=== PATIENT | male | born 1945 | race Caucasian/White ===

== ENCOUNTER 2024-06-03 15:15 | Inpatient (IN) | payer MEDICARE, MEDICAID, SELFPAY ==
[2024-06-03] VITALS (13 sets, daily range): BP systolic 119–165; BP diastolic 58–77; PULSE 77–96; RESP 17–27; TEMP 36.6–37.1; O2SAT 92–97; BMI 32.8; BMI 31.8
--- NOTE | 2024-06-03 15:30 | EKG12_ITS ---
Test Reason : CHEST PAIN Blood Pressure : */* mmHG Vent. Rate : 82 BPM Atrial Rate : 82 BPM P-R Int : 208 ms QRS Dur : 90 ms QT Int : 360 ms P-R-T Axes : 71 78 40 degrees QTcB Int : 420 ms Normal sinus rhythm with sinus arrhythmia Nonspecific T wave abnormality Abnormal ECG Confirmed by KATHERINE WEEKS, DAVI ([id number]), web content editor NEGRITO CONNER ([id number]) on 06/04/2024 8:26:00 AM Referred By: Confirmed By: DAVI MURPHY MD
[2024-06-03] MEDS: Aspirin 81 MG TAB.CHEW 324 MG PO (15:54)
[2024-06-03 16:02] LABS: Absolute Lymphocyte Count 0.81 X10^3/uL (0.83-4.51); Absolute Neutrophil Count 4.8 X10^3/uL (2.0-7.7); Basophil# 0.06 X10^3/uL; Basophil% 0.9 % (0-1); Eosinophil# 0.35 X10^3/uL; Eosinophils% 5.2 % (0-5); Hematocrit 42.1 % (40-54); Lymphocyte # 0.81 X10^3/ul (0.83-4.51); Lymphocyte % 12.1 % (19-41); Mean Corp Hgb Conc 30.9 g/dL (32-36); Mean Corpuscular Hgb 29.4 pg (27.0-32.0); Mean Corpuscular Volume 95.2 fL (80-94); Mean Platelet Vol. 10.2 fl (6.2-12.0); Monocyte# 0.61 X10^3/uL; Monocyte% 9.1 % (0-10); NRBC Flagged by Analyzer 0 % (0-5); Neutrophil # 4.81 X10^3/uL (2.7-7.7); Neutrophil % 72.3 % (47-70); Platelet Count 153 K/mm3 (150-450); RBC Distribution Width CV 15.6 % (11.6-14.6); RBC Distribution Width SD 53.9 fl (35.1-43.9); Red Blood Count 4.42 M/mm3 (4.6-6.2); White Blood Count 6.7 K/mm3 (4.4-11.0)
--- NOTE | 2024-06-03 16:10 | RAD_ITS ---
STUDY: X-RAY CHEST REASON FOR EXAM: Male, 79 years old. chest pain TECHNIQUE: PA and lateral COMPARISON: None. FINDINGS: There is right perihilar soft tissue prominence and probable right infrahilar consolidation . Heart appears enlarged. There is right hilar asymmetry with infrahilar density possibly representing adenopathy or mass.. The left lung base is silhouetted and there is right to left mediastinal shift suggesting consolidation or possible effusion. Normal visualized pulmonary arteries. Normal visualized aortic arch and descending thoracic aorta. Trachea is displaced towards the towards the left possibly due to prominent vessel or adenopathy. Normal visualized thoracic spine. Normal visualized ribs, clavicles, and shoulders. There is no demonstrated abnormality of the visualized soft tissue structures of the upper abdomen. RAD/Chest PA and Lateral IMPRESSION: Right hilar asymmetry and possible right infrahilar mass or masslike consolidation.. Left hemidiaphragm is silhouetted suggesting consolidation of left lower lobe. CT recommended for further evaluation Electronically Signed: Tommy Skinner MD at 16:41 EST ,
[2024-06-03 16:19] LABS: Anion Gap 5 (5-15); BUN 21 mg/dL (7-18); BUN/Creat Ratio 7.5 RATIO (10-20); Calcium,Total 9.7 mg/dL (8.5-10.1); Chloride 100 mmol/L (98-107); Creatinine, Serum 2.81 mg/dL (0.70-1.30); EST Glomerular Filtration Rate 23 mL/min (>60); Est Glom Filt Rate - Afr Amer 28 mL/min (>60); Estimated Creatinine Clearance 26.91 ml/min; Glucose 85 mg/dL (74-106); Potassium 4.6 mmol/L (3.5-5.1); Sodium Level 137 mmol/L (136-145); Troponin-I HS (w/2H Reflex) 10 pg/mL (3.0-78.0)
--- NOTE | 2024-06-03 16:43 | CT_ITS ---
INDICATION: cough, abnormal cxr EXAMINATION: CT CHEST WITHOUT CONTRAST - CT Chest W/O Contrast Injection TECHNIQUE: Helically acquired images were obtained of the chest. A radiation dose optimization technique was used for this scan. IV Contrast dosage and agent: None. COMPARISON: None. FINDINGS: LUNGS, PLEURA AND LARGE AIRWAYS: There is loss of volume in the left hemithorax with right to left mediastinal shift and elevation left hemidiaphragm Minor subsegmental atelectasis in both left upper and lower lobes No masses, consolidation, or edema. No pleural effusion or thickening. No pneumothorax. THYROID: No thyroid lesions. HEART AND PERICARDIUM: Heart size is normal. However there is prominent pericardial fat as well as extensive epicardial fat. CORONARY ARTERIES: Minor coronary artery calcification VESSELS: Atherosclerotic changes of the aorta without evidence for aneurysm MEDIASTINUM AND JUNO: No mediastinal or hilar adenopathy. However there is extensive mediastinal fat accounting for abnormalities on chest radiograph Esophagus is unremarkable. No hiatal hernia. UPPER ABDOMEN: Left renal cyst noted which will not require additional imaging BONES: Dorsal spine demonstrates degenerative change No suspicious lytic or blastic abnormality. CT/Chest without Contrast IMPRESSION: Minor atelectasis of the left upper and lower lobes in association with loss of volume of the left hemithorax Other findings as above Electronically Signed: Tommy Skinner MD at 18:45 EST Reading Location ID and State: [facility] / [place] Tel , Service support ,
[2024-06-03] MEDS: Ipratropium/Albuterol Sulfate 3 ML AMPUL.NEB INHALATION ×2 (17:38→23:14)
--- NOTE | 2024-06-03 17:53 | ED.VIS.CHEST ---
HPI History of Present Illness Chief Complaint: Chest Pain Informant: patient Narrative Narrative: Patient is 79-year-old male with history of end-stage renal disease on hemodialysis presenting with worsening cough and chest congestion. He states he had a slight fever 5 days ago and a 9.5 while at dialysis. He normally has dialysis Friday and Friday although because of the holidays had dialysis today (). His last dialysis was on Friday before that. He notes that last night he was up all night coughing and has had a lot of clear mucus production. He is been feeling more short of breath. He feels generally weak. He denies any nasal congestion or URI symptoms. He states he does fact there is chest congestion. He continued to have a harsh cough and chest discomfort at dialysis and they recommend he come to the ER for further evaluation. Patient denies any history of COPD or asthma. Since he has had pneumonia in the past. [facility] Medical History (Updated 06/04/24 @ 00:[address] Jyoti Hernandez, DO) Chronic renal failure, stage 5 Home Medications ?Medication ?Instructions ?Recorded ?Last Taken ?Type allopurinol 100 mg tablet 100 mg PO DAILY 06/03/24 Unknown History allopurinol 100 mg tablet 100 mg PO DAILY 06/03/24 Unknown History levothyroxine 88 mcg tablet 88 mcg PO DAILY 06/03/24 Unknown History levothyroxine 88 mcg tablet 88 mcg PO DAILY 06/03/24 Unknown History midodrine 5 mg tablet 5 mg PO BID 06/03/24 Unknown History midodrine 5 mg tablet 5 mg PO BID 06/03/24 Unknown History nystatin 100,000 unit/gram topical 1 applic topical BID 06/03/24 Unknown History cream oxybutynin chloride 5 mg tablet 5 mg BID 06/03/24 Unknown History sertraline 50 mg tablet 50 mg PO DAILY 06/03/24 Unknown History sertraline 50 mg tablet 50 mg PO DAILY 06/03/24 Unknown History sevelamer carbonate 800 mg tablet 800 mg TID 06/03/24 Unknown History simvastatin 20 mg tablet 20 mg PO QPM 06/03/24 Unknown History simvastatin 20 mg tablet 20 mg PO QPM 06/03/24 Unknown History Allergy/AdvReac Type Severity Reaction Status Date / Time iodine Allergy Intermediate Hives Verified 06/03/24 15:16 Social History Smoking Status: Former smoker ROS ROS ED Constitutional Constitutional ED: Reports chills, fever(s) and other Details: Low-grade fever reported ENT ENT ED: Denies ear pain, rhinorrhea or sore throat Cardiovascular Cardiovascular: Reports chest pain Respiratory/Chest Respiratory/Chest: Reports cough, dyspnea and sputum Gastrointestinal Gastrointestinal: Denies abdominal pain, diarrhea, nausea or vomiting Musculoskeletal Musculoskeletal: Denies arthralgias or myalgias Integumentary Denies rash Neurologic Neurologic: Reports weakness; Denies headache(s) EXAM Physical Exam Const Vital Signs: 06/03/24 15:17 06/03/24 15:20 06/03/24 15:40 Temperature 98.4 F 98.4 F Temperature Source Oral Oral Pulse Rate 90 92 Respiratory Rate 27 H 21 H Respiratory Pattern Blood Pressure 159/77 H 159/77 H Blood Pressure Mean 104 104 Pulse Ox 92 93 Oxygen Delivery Method Room Air Room Air Room Air 06/03/24 16:20 06/03/24 17:39 06/03/24 18:00 Temperature 98.1 F 97.9 F Temperature Source Oral Temporal Pulse Rate 84 83 94 Respiratory Rate 18 17 18 Respiratory Pattern Normal Blood Pressure 165/75 H 131/70 H Blood Pressure Mean 105 90 Pulse Ox 94 94 Oxygen Delivery Method Room Air 06/03/24 18:30 06/03/24 19:00 06/03/24 20:00 Temperature 98.0 F 98.8 F Temperature Source Oral Oral Pulse Rate 96 88 89 Respiratory Rate 18 18 18 Respiratory Pattern Blood Pressure 127/70 H 119/58 L 127/58 H Blood Pressure Mean 89 78 81 Pulse Ox 93 92 94 Oxygen Delivery Method Room Air Room Air Room Air 06/03/24 20:04 Temperature 98.8 F Temperature Source Pulse Rate 89 Respiratory Rate 18 Respiratory Pattern Blood Pressure 127/58 H Blood Pressure Mean 81 Pulse Ox 94 Oxygen Delivery Method Positive well nourished and well developed General Appearance ED: well developed and NAD HEENT Reports moist mucous membranes Eyes PERRL Neck supple and no JVD Chest Wall inspection of chest normal Resp Resp Narrative: Tachypneic, harsh deep cough throughout exam. Coarse breath sounds more diminished on the right with expiratory wheezing diffusely present. Cardio regular rate and regular rhythm Cardio Narrative: AV fistula in the right upper extremity with palpable thrill GI normal to inspection, nondistended, normoactive bowel sounds and soft to palpation Extremity normal to inspection General Extremety ED: Negative for edema General Extremity: Negative for edema Neuro oriented x3 Sensorium / Orientation: awake and alert Motor Exam: general weakness Psych mental status grossly normal Skin no rashes or lesions noted and no wounds Heart Score History: Slightly/Non-Suspicious ECG: Nonspecific Repolarization Age: >/= 65 years Risk Factors: >/= 3 Risk Factors or History of CAD Troponin: </= Normal Limit Score: 5 MDM MDM MDM Narrative Medical decision making narrative: Patient valuated for worsening shortness of breath and cough. Patient is on multiple comorbidities. Knows when generalized weakness. Differential includes pneumonia versus viral syndrome versus reactive airway/COPD exacerbation. Patient denies history of COPD. Clinically does not appear fluid overloaded has been compliant with his dialysis. Patient given a DuoNeb with improvement of his work of breathing and wheezing. CBC, BMP and delta licensing troponin are normal. Chest x-ray viewed by myself as well as radiology shows asymmetry of the right hilum and a left hemidiaphragm. Radiology recommended CT for further evaluation. CT does not show any acute infiltrate. Patient reevaluated. He is ambulated the emergency room because of 93 to 92%. Discussed observation in the hospital versus discharge home. Patient states he lives home alone and given all of his comorbidities be more comfortable staying in the hospital for observation. Case with Dr. Degroot. Patient started on Solu-Medrol. Given that he is RSV positive I do not think requires antibiotics at this time. Lab Data Labs: Laboratory Results - last 24 hr 06/03/24 06/03/24 15:53 18:28 WBC 6.7 RBC 4.42 L Hgb 13.0 Hct 42.1 MCV 95.2 H MCH 29.4 MCHC 30.9 L RDW Std Deviation 53.9 H RDW Coeff of Filomena 15.6 H Plt Count 153 MPV 10.2 Immature Gran % (Auto) 0.400 Neut % (Auto) 72.3 H Lymph % (Auto) 12.1 L [place] % (Auto) 9.1 Eos % (Auto) 5.2 H Baso % (Auto) 0.9 Absolute Neuts (auto) 4.8 Absolute Lymphs (auto) 0.81 L Nucleated RBC % 0 Sodium 137 Potassium 4.6 Chloride 100 Carbon Dioxide 32.0 Anion Gap 5 BUN 21 H Creatinine 2.81 H Estim Creat Clear Calc 26.91 Est GFR (MDRD) Af Amer 28 L Est GFR (MDRD) Non-Af 23 L BUN/Creatinine Ratio 7.5 L Glucose 85 Calcium 9.7 Troponin I High Sens 10 10 Radiography Diagnostic Testing: Clinical Impression(s) from Imaging Studies Chest X-Ray 06/03/24 16:10 IMPRESSION: Right hilar asymmetry and possible right infrahilar mass or masslike consolidation.. Left hemidiaphragm is silhouetted suggesting consolidation of left lower lobe. CT recommended for further evaluation Electronically Signed: Tommy Skinner MD at 16:41 EST , Chest CT 06/03/24 16:43 IMPRESSION: Minor atelectasis of the left upper and lower lobes in association with loss of volume of the left hemithorax Other findings as above Electronically Signed: Tommy Skinner MD at 18:45 EST , Rhythm Strip Rhythm Strip: Sinus Rhythm Rate: 82 Ectopy: None EKG Initial EKG: Attestation: I personally reviewed and interpreted this EKG as follows: Interpretation: Sinus Rhythm Comments: Normal sinus rhythm rate of 82 bpm with sinus arrhythmia Borderline rightward axis Normal intervals Nonspecific T wave changes with inversions in 2, aVF and V1 through V2 Prior EKG tracings: not available for review Prior: No Prior Discharge Plan Dx/Rx/DC Orders Clinical Impression: RSV (acute bronchiolitis due to respiratory syncytial virus), Cough, Shortness of breath, Generalized weakness Disposition Disposition: Acute Care [facility] Discharge Date/Time: 06/03/24 21:59
[2024-06-03 17:55] LABS: Reflex Troponin-HS? (from REC) Y
[2024-06-03 19:03] LABS: Troponin-I HS 10 pg/mL (3.0-78.0)
--- NOTE | 2024-06-03 19:14 | CM.ED ---
Social Work Reason for visit: Verification of Advanced Directives Patient verified that he does have a HPOA and Living Will completed. Patient to bring in copy when able. No further needs identified. Cherie Hagen, SEATING CAPTAIN, SPECIMEN ACCESSIONER
--- NOTE | 2024-06-03 20:35 | HP.PCM.HOS_ITS ---
HPI - General General Date of Admission: 06/03/24 Date of Service: 06/03/24 Chief Complaint: Chest discomfort/shortness of breath HPI Narrative GENET [place]HAM, is a 79 M who presented to the emergency department at [facility] on 06/03/2024 with a chief complaint of chest discomfort, cough, congestion that has been ongoing for about 5 days now. He indicated he has a slight fever initially and developed myalgias and joint aches as well as congestion, pharyngitis that and chills which since has resolved. He states at this time he is left with a fairly significant cough that is harsh and sputum production. He states the sputum is relatively clear to pasty in appearance. He is dialysis dependent at baseline and was at dialysis on the day of presentation and they advised him to be evaluated in the emergency department due to his cough severity. The patient indicated he is also having difficulty taking care of himself at home. He does live independently but has previously been in a [facility] facility. He currently ambulates with a walker. He currently gets home health and passport. He does not have a history of tobacco abuse or asthma. Vital signs on presentation showed temperature 98.4, heart rate 90, respiratory rate was 27 initially but improved to 21, blood pressure was 159/77 and pulse ox was 92 to 93% on room air at rest. CBC was overtly unremarkable. He does have a mild lymphopenia and an eosinophilia. Chemistry panel shows normal electrolytes with a BUN of 21 and a serum creatinine of 2.81 (patient on dialysis at baseline) troponin was normal x 2. Chest x-ray showed right hilar asymmetry and possible right infrahilar mass or masslike consolidation as well as possible consolidation of left lower lobe therefore a CT of the chest was obtained and demonstrated minor atelectatic changes in the left upper and lower lobes associated with volume [place] of the left hemithorax but no other acute pulmonary findings or mediastinal lymphadenopathy. COVID/flu/RSV PCR was obtained and positive for RSV. He was treated with steroids and supportive care in the emergency department and given the fact he was having difficulty caring for himself at home and winded with significant cough request for admission under observation was requested. [facility] Medical History (Updated 06/04/24 @ 01:[address] Elana Degroot DO) AV fistula End-stage renal disease Hyperlipidemia History of recurrent UTIs Chronic indwelling Torres catheter Urinary retention Prostate cancer Candidiasis, intertrigo Orthostatic hypotension Hypothyroidism Gout Obesity (BMI 30.0-34.9) Home Medications ?Medication ?Instructions ?Recorded ?Last Taken ?Type allopurinol 100 mg tablet 100 mg PO DAILY 06/03/24 Unknown History allopurinol 100 mg tablet 100 mg PO DAILY 06/03/24 Unknown History levothyroxine 88 mcg tablet 88 mcg PO DAILY 06/03/24 Unknown History levothyroxine 88 mcg tablet 88 mcg PO DAILY 06/03/24 Unknown History midodrine 5 mg tablet 5 mg PO BID 06/03/24 Unknown History midodrine 5 mg tablet 5 mg PO BID 06/03/24 Unknown History nystatin 100,000 unit/gram topical 1 applic topical BID 06/03/24 Unknown History cream oxybutynin chloride 5 mg tablet 5 mg PO BID 06/03/24 Unknown History sertraline 50 mg tablet 50 mg PO DAILY 06/03/24 Unknown History sertraline 50 mg tablet 50 mg PO DAILY 06/03/24 Unknown History sevelamer carbonate 800 mg tablet 800 mg PO TID 06/03/24 Unknown History simvastatin 20 mg tablet 20 mg PO QPM 06/03/24 Unknown History simvastatin 20 mg tablet 20 mg PO QPM 06/03/24 Unknown History Allergy/AdvReac Type Severity Reaction Status Date / Time iodine Allergy Intermediate Hives Verified 06/03/24 15:16 Family History (Updated 06/04/24 @ 01:[address] Elana Degroot DO) Other Heart disease Hypertension Surgical History (Updated 06/04/24 @ 01:[address] Elana Degroot DO) History of left hip hemiarthroplasty History of prostate surgery Social History (Updated 06/04/24 @ 01:[address] Elana Degroot DO) household members: none Smoking Status: Former smoker alcohol intake: never substance use type: does not use additional social history: Ambulates with a wheeled walker at baseline ROS Constitutional Constitutional: Reports chills, fatigue, fever(s), malaise and weakness; Denies anorexia, change in weight, night sweats or other Eyes Eyes: Denies blurry vision, change in eye color, change in vision, discharge from eye(s), double vision, erythema, eye pain, loss of vision or other ENT HEENT: Reports nasal congestion and post nasal drip; Denies abnormal hearing, dysphagia, ear pain, epistaxis, headache(s), hearing loss, nasal discharge, sinus pressure, sore throat or other Cardiovascular Cardiovascular: Reports chest pain and dyspnea on exertion; Denies claudication, edema, lightheadedness, orthopnea, palpitations, paroxysmal nocturnal dyspnea, rapid heart rate, syncope or other Respiratory/Chest Respiratory/Chest: Reports cough, dyspnea, productive cough, shortness of breath with exertion and wheezing; Denies excessive phlegm production, hemoptysis, shortness of breath at rest or other Gastrointestinal Gastrointestinal: Denies abdominal pain, coffee ground emesis, constipation, diarrhea, dyspepsia, hematemesis, hematochezia, loose stools, melena, nausea, vomiting or other Genitourinary Genitourinary: Denies burning urination, difficulty urinating, dysuria, hematuria, nocturia, urinary frequency, urinary hesitancy, urinary incontinence, urinary urgency or other Musculoskeletal Musculoskeletal: Reports joint pain and joint stiffness; Denies arthralgias, back pain, joint swelling, myalgias, neck pain or other Neurologic Neurologic: Reports abnormal gait; Denies abnormal speech, confusion, disequilibrium, dizziness, focal weakness, headache(s), numbness, paresthesias, seizure-like activity, seizures, syncope, tingling, tremor(s) or other Psychiatric Psychiatric: Denies anxiety, depression, homicidal ideation, suicidal ideation or other Endocrine Endocrinology: Denies change in body appearance, cold intolerance, excessive sweating, heat intolerance, polydipsia, polyuria or other Hematologic/Lymphatic Hematologic/Lymphatic: Denies anemia, easy bleeding, easy bruising, lymphadenopathy or other Allergic/Immunologic Allergic/Immunologic: Denies rhinitis, hives, eczemia, asthma or other Vital Signs Vital Signs Vital Signs: 06/03/24 15:17 06/03/24 15:20 06/03/24 15:40 Temperature 98.4 F 98.4 F Temperature Source Oral Oral Pulse Rate 90 92 Respiratory Rate 27 H 21 H Respiratory Pattern Blood Pressure 159/77 H 159/77 H Blood Pressure Mean 104 104 Pulse Ox 92 93 Oxygen Delivery Method Room Air Room Air Room Air 06/03/24 16:20 06/03/24 17:39 06/03/24 18:00 Temperature 98.1 F 97.9 F Temperature Source Oral Temporal Pulse Rate 84 83 94 Respiratory Rate 18 17 18 Respiratory Pattern Normal Blood Pressure 165/75 H 131/70 H Blood Pressure Mean 105 90 Pulse Ox 94 94 Oxygen Delivery Method Room Air 06/03/24 18:30 06/03/24 19:00 06/03/24 20:00 Temperature 98.0 F 98.8 F Temperature Source Oral Oral Pulse Rate 96 88 89 Respiratory Rate 18 18 18 Respiratory Pattern Blood Pressure 127/70 H 119/58 L 127/58 H Blood Pressure Mean 89 78 81 Pulse Ox 93 92 94 Oxygen Delivery Method Room Air Room Air Room Air 06/03/24 20:04 Temperature 98.8 F Temperature Source Pulse Rate 89 Respiratory Rate 18 Respiratory Pattern Blood Pressure 127/58 H Blood Pressure Mean 81 Pulse Ox 94 Oxygen Delivery Method Weight Weight: 106.6 kg Body Mass Index (BMI) 32.8 Physical Exam Const alert, oriented x3, no apparent distress and well nourished; Negative for average body habitus or healthy appearing Constitutional Narrative: Obese, older, white male, lying in bed, appears fairly debilitated at baseline, does not appear toxic, very pleasant General Appearance: cooperative HEENT normocephalic, head/scalp atraumatic and moist oral mucous membranes HEENT Narrative: Mild hearing loss, Mallampati 2-3, no thrush Eyes conjunctivae normal Eyes Narrative: No scleral icterus Neck no lymphadenopathy and supple Neck Narrative: Neck is short and thick, trachea midline Resp normal respiratory effort, no retractions, no use of accessory muscles and No clear to auscultation bilaterally Resp Narrative: Scattered end expiratory wheeze with coarse breath sounds throughout, bronchospasm with deep breathing Auscultation: wheezes; Negative for rales or rhonchi Cardio regular rate, regular rhythm, S1 normal heart sound, S2 normal heart sound, no murmurs, no rub, no gallops and no clicks GI normal to inspection, nondistended, normoactive bowel sounds, soft to palpation and non-tender Extremity no clubbing, cyanosis or edema Extremity Narrative: Pedal pulses are 2+ Neuro oriented x3, moves all extremities and no focal motor deficits Neuro Narrative: Generalized weakness noted Speech: speech normal Psych affect normal Psych Narrative: Extremely pleasant, eye contact is good, patient interacts appropriately Results Lab / Micro Data 06/03/24 15:53 06/03/24 15:53 Labs: Laboratory Results - last 24 hr 06/03/24 15:53: WBC 6.7, RBC 4.42 L, Hgb 13.0, Hct 42.1, MCV 95.2 H, MCH 29.4, M CHC 30.9 L, RDW Std Deviation 53.9 H, RDW Coeff of Filomena 15.6 H, Plt Count 153, MPV 10.2, Immature Gran % (Auto) 0.400, Neut % (Auto) 72.3 H, Lymph % (Auto) 12.1 L, [place] % (Auto) 9.1, Eos % (Auto) 5.2 H, Baso % (Auto) 0.9, Absolute Neuts (auto) 4.8, Absolute Lymphs (auto) 0.81 L, Nucleated RBC % 0, Sodium 137, Potassium 4.6, Chloride 100, Carbon Dioxide 32.0, Anion Gap 5, BUN 21 H, C reatinine 2.81 H, Estim Creat Clear Calc 26.91, Est GFR (MDRD) Af Amer 28 L, Est GFR (MDRD) Non-Af 23 L, BUN/Creatinine Ratio 7.5 L, Glucose 85, Calcium 9.7, Troponin I High Sens 10 06/03/24 18:28: Troponin I High Sens 10 Micro: Microbiology 06/03/24 15:38 Mucosa - Nose SARS-CoV-2, Influenza & RSV (PCR) - Final RSV Rhythm Strip Rhythm Strip: Sinus Rhythm Rate: 82 Ectopy: None Imaging Radiology Impression Chest X-Ray 06/03/24 16:10 IMPRESSION: Right hilar asymmetry and possible right infrahilar mass or masslike consolidation.. Left hemidiaphragm is silhouetted suggesting consolidation of left lower lobe. CT recommended for further evaluation Electronically Signed: Tommy Skinner MD at 16:41 EST , Chest CT 06/03/24 16:43 IMPRESSION: Minor atelectasis of the left upper and lower lobes in association with loss of volume of the left hemithorax Other findings as above Electronically Signed: Tommy Skinner MD at 18:45 EST , Assessment & Plan Assessment/Plan (1) Cough: (2) RSV (acute bronchiolitis due to respiratory syncytial virus): (3) Shortness of breath: (4) Generalized weakness: PLAN: Plan Cough/shortness of breath secondary to viral pneumonia with RSV -Supportive care -Will check sputum culture to rule out underlying superimposed bacterial pneumonia with productive cough -As needed and scheduled nebulizers -Solu-Medrol 40 every 8 -As needed antitussives -I-S -Acapella -Mucinex 1200 p.o. twice daily -Patient is currently on room air at rest will need ambulatory pulse ox prior to discharge Generalized weakness acute on chronic -Acuity is secondary to the above -Consult PT/OT -cultural centre manager/social work consultation for assistance with discharge planning -Patient states he has had home health and is plugged in with passport End-stage renal disease on dialysis -HD typically MWF -Due for dialysis tomorrow -does not follow locally -Consult Dr. Abarca for assistance with dialysis while hospitalized -Continue home sevelamer Chronic orthostatic hypotension -Continue home midodrine Hypothyroidism -Continue home levothyroxine History of BPH/prostate cancer/recurrent UTI/urinary overflow incontinence -Patient now has chronic Torres -Currently no urinary symptoms and urine does not appear to be turbid -Continue home oxybutynin Gout -Continue home allopurinol Intertriginous candidiasis -continue home topical nystatin Hyperlipidemia -continue home statin DVT prophylaxis -Subcu heparin 3 times daily CODE STATUS -Full code as verified on presentation Charges/Coding Visit Charges Inpatient E&M: 36046 Init Hosp L2
--- NOTE | 2024-06-03 21:00 | ED.RN ---
Patient states that he does not know his medications and he does not have a list. Patient states that and the dialysis center are the only people that know the medications that the patient takes.
[2024-06-03] MEDS: MethylPREDNISolone 125 MG/2 ML Vial IV (21:03)
[2024-06-03] MEDS: guaiFENesin 1,200 MG Tablet 1200 MG PO (22:54)
[2024-06-03] MEDS: Heparin Injection (Vial) 5,000 UNIT/ML VIAL 5000 UNIT SC (22:54)
[2024-06-04] VITALS (12 sets, daily range): BP systolic 129–132; BP diastolic 60–72; PULSE 70–89; RESP 16–20; TEMP 36.5–36.9; O2SAT 93–97
[2024-06-04] MEDS: Ipratropium/Albuterol Sulfate 3 ML AMPUL.NEB INHALATION ×6 (02:53→22:52)
[2024-06-04] MEDS: Heparin Injection (Vial) 5,000 UNIT/ML VIAL 5000 UNIT SC ×3 (05:10→21:37)
[2024-06-04] MEDS: Levothyroxine 88 MCG Tablet PO (05:11)
[2024-06-04 06:24] LABS: Absolute Lymphocyte Count 0.37 X10^3/uL (0.83-4.51); Absolute Neutrophil Count 4.1 X10^3/uL (2.0-7.7); Basophil# 0.01 X10^3/uL; Basophil% 0.2 % (0-1); Hematocrit 41.5 % (40-54); Hemoglobin 12.7 g/dL (13.0-16.5); Lymphocyte # 0.37 X10^3/ul (0.83-4.51); Mean Corp Hgb Conc 30.6 g/dL (32-36); Mean Corpuscular Hgb 29.5 pg (27.0-32.0); Mean Corpuscular Volume 96.5 fL (80-94); Mean Platelet Vol. 11.2 fl (6.2-12.0); Monocyte% 2.2 % (0-10); NRBC Flagged by Analyzer 0 % (0-5); Neutrophil # 4.12 X10^3/uL (2.7-7.7); Neutrophil % 89.2 % (47-70); POSITIVE DIFFERENTIAL YES; Platelet Count 146 K/mm3 (150-450); RBC Distribution Width CV 15.8 % (11.6-14.6); RBC Distribution Width SD 56.1 fl (35.1-43.9); White Blood Count 4.6 K/mm3 (4.4-11.0)
[2024-06-04 06:52] LABS: ALB/GLOB Ratio 0.7 RATIO (0.9-2.4); AST(SGOT) 20 U/L (15-37); Alanine Aminotransfer ALT/SGPT 16 U/L (16-61); Albumin, Serum 3.3 g/dL (3.2-5.0); Alkaline Phosphatase 97 U/L (45-117); Anion Gap 7 (5-15); BUN 35 mg/dL (7-18); BUN/Creat Ratio 8.3 RATIO (10-20); Calcium,Total 9.5 mg/dL (8.5-10.1); Chloride 101 mmol/L (98-107); EST Glomerular Filtration Rate 15 mL/min (>60); Est Glom Filt Rate - Afr Amer 18 mL/min (>60); Estimated Creatinine Clearance 17.77 ml/min; Globulin 4.6 g/dL (2.2-4.2); Glucose 201 mg/dL (74-106); Magnesium 2.4 mg/dL (1.6-2.6); Potassium 4.6 mmol/L (3.5-5.1); Protein, Total 7.9 g/dL (6.4-8.2); Sodium Level 136 mmol/L (136-145)
--- NOTE | 2024-06-04 07:32 | PN.HOSP_ITS ---
Reason for Visit Reason for Visit: Diagnoses Acute bronchiolitis due to respiratory syncytial virus (06/03/24) Cough, unspecified (06/03/24) Shortness of breath (06/03/24) Weakness (06/03/24) Subjective Subjective Patient is a 79-year-old gentleman who presented with shortness of breath imaging studies demonstrated atelectasis of the left upper and lower lobes with volume loss of the left hemithorax. Patient viral respiratory panel came back positive for RSV admitted to regular nursing floor for further management Objective Data Objective Data Vital Signs: Vital Signs Temp Pulse Resp BP Pulse Ox O2 Del Method 97.7 F L 70 18 132/72 H 95 Room Air 06/04/24 05:15 06/04/24 05:15 06/04/24 05:15 06/04/24 05:15 06/04/24 05:15 06/04/24 05:15 Oxygen Delivery Method Room Air Weight: 103.782 kg Body Mass Index (BMI) 31.8 Intake & Output: Intake and Output for Last 24 Hours 06/02/24 06/03/24 06/04/24 23:59 23:59 23:59 Output Total 650 / 650 Balance -650 / -650 Lab / Micro Data 06/04/24 05:30 06/04/24 05:30 Labs: Laboratory Results - last 24 hr 06/03/24 15:53: WBC 6.7, RBC 4.42 L, Hgb 13.0, Hct 42.1, MCV 95.2 H, MCH 29.4, M CHC 30.9 L, RDW Std Deviation 53.9 H, RDW Coeff of Filomena 15.6 H, Plt Count 153, MPV 10.2, Immature Gran % (Auto) 0.400, Neut % (Auto) 72.3 H, Lymph % (Auto) 12.1 L, [place] % (Auto) 9.1, Eos % (Auto) 5.2 H, Baso % (Auto) 0.9, Absolute Neuts (auto) 4.8, Absolute Lymphs (auto) 0.81 L, Nucleated RBC % 0, Sodium 137, Potassium 4.6, Chloride 100, Carbon Dioxide 32.0, Anion Gap 5, BUN 21 H, C reatinine 2.81 H, Estim Creat Clear Calc 26.91, Est GFR (MDRD) Af Amer 28 L, Est GFR (MDRD) Non-Af 23 L, BUN/Creatinine Ratio 7.5 L, Glucose 85, Calcium 9.7, Troponin I High Sens 10 06/03/24 18:28: Troponin I High Sens 10 06/04/24 05:30: WBC 4.6, RBC 4.30 L, Hgb 12.7 L, Hct 41.5, MCV 96.5 H, MCH 29.5, MCHC 30.6 L, RDW Std Deviation 56.1 H, RDW Coeff of Filomena 15.8 H, Plt Count 146 L, MPV 11.2, Immature Gran % (Auto) 0.400, Neut % (Auto) 89.2 H, Lymph % (Auto) 8.0 L, [place] % (Auto) 2.2, Eos % (Auto) 0.0, Baso % (Auto) 0.2, Absolute Neuts (auto) 4.1, Absolute Lymphs (auto) 0.37 L, Nucleated RBC % 0, Sodium 136, Potassium 4.6, Chloride 101, Carbon Dioxide 28.0, Anion Gap 7, BUN 35 H, Creatinine 4.20 H , Estim Creat Clear Calc 17.77, Est GFR (MDRD) Af Amer 18 L, Est GFR (MDRD) Non- Af 15 L, BUN/Creatinine Ratio 8.3 L, Glucose 201 H, Calcium 9.5, Phosphorus 3.0, Magnesium 2.4, Total Bilirubin 0.40, AST 20, ALT 16, Alkaline Phosphatase 97, Total Protein 7.9, Albumin 3.3, Globulin 4.6 H, Albumin/Globulin Ratio 0.7 L Micro: Microbiology 06/03/24 15:38 Mucosa - Nose SARS-CoV-2, Influenza & RSV (PCR) - Final RSV Radiography Diagnostic Testing: Radiology Impression Chest X-Ray 06/03/24 16:10 IMPRESSION: Right hilar asymmetry and possible right infrahilar mass or masslike consolidation.. Left hemidiaphragm is silhouetted suggesting consolidation of left lower lobe. CT recommended for further evaluation Electronically Signed: Tommy Skinner MD at 16:41 EST Reading Location ID and State: [facility] / [place] Tel , Service support , Chest CT 06/03/24 16:43 IMPRESSION: Minor atelectasis of the left upper and lower lobes in association with loss of volume of the left hemithorax Other findings as above Electronically Signed: Tommy Skinner MD at 18:45 EST Reading Location ID and State: [address] [place] [address] Tel , Service support , Rhythm Strip Rhythm Strip: Sinus Rhythm Rate: 82 Ectopy: None Physical Exam Narrative GENERAL: cooperative HEENT: Atraumatic; normocephalic EYES; Anicteric, Normal Conjunctiva NECK; supple, normal thyroid, RESPIRATORY: Diminished to auscultation CARDIOVASCULAR: Regular S1 S2, GI: soft, normoactive bowel sounds, : No Renal angle tenderness; EXTREMITIES: No edema, no clubbing, MUSCULOSKELETAL: no muscle wasting NEURO: Awake; no lateralizing signs. SKIN: No Rash PSYCH; Flat affect Assessment & Plan Assessment/Plan (1) Cough: (2) RSV (acute bronchiolitis due to respiratory syncytial virus): (3) Shortness of breath: (4) Generalized weakness: PLAN: Plan Patient is a 79-year-old gentleman who presented with shortness of breath imaging studies demonstrated atelectasis of the left upper and lower lobes with volume loss of the left hemithorax. Patient viral respiratory panel came back positive for RSV admitted to regular nursing floor for further management 1. Acute viral pneumonia with RSV ? Patient has been admitted to regular nursing floor and symptom management initiated in addition to Solu-Medrol, Mucinex and supplemental oxygen 2. End-stage renal disease ? Patient is on dialysis on Wednesdays and Fridays consult placed to nephrology for dialysis orders 3. Chronic orthostatic hypotension ? Patient is on midodrine 4. Hypothyroidism ? Patient is on levothyroxine home dose continued 5. Dyslipidemia ?Patient is on statin therapy, continued at home dose 6. Bladder outlet obstruction ? Multifactorial including BPH, history of prostate cancer. Patient has a Torres catheter 7. Gout ? Patient is on allopurinol 8. DVT prophylaxis ? Subcu heparin CODE STATUS full code Time spent in the patient's overall evaluation,decision-making process, review of diagnostic data, adjustment of management, discussion with other providers, nursing nursing and ancillary staff involved in patient's care documentation, 38 Minutes Charges/Coding Visit Charges Inpatient E&M: 58210 Subs Hosp L2
[2024-06-04] MEDS: Allopurinol 100 MG Tablet PO (09:32)
[2024-06-04] MEDS: SEVELAMER CARBONATE 800 MG TABLET PO ×3 (09:32→16:45)
[2024-06-04] MEDS: Doxycycline 100 MG CAPSULE PO ×2 (09:32→21:37)
[2024-06-04] MEDS: guaiFENesin 1,200 MG Tablet 1200 MG PO ×2 (09:32→21:37)
[2024-06-04] MEDS: Oxybutynin 5 MG Tablet PO ×2 (09:32→16:45)
[2024-06-04] MEDS: Sertraline 50 MG Tablet PO (09:32)
[2024-06-04] MEDS: Midodrine HCl 5 MG Tablet PO ×2 (09:34→16:45)
[2024-06-04] MEDS: Nystatin Ointment 1 APPLIC TOPICAL ×2 (09:35→21:37)
--- NOTE | 2024-06-04 11:20 | CON.PCM.RE_ITS ---
Assessment & Plan Assessment/Plan (1) End-stage renal disease: PLAN: On hemodialysis Friday, Friday, Friday. This week due to holiday schedule he had dialysis yesterday. Today potassium looks okay, volume status looks pretty decent. Has a right arm AV fistula for access. Will arrange dialysis as per schedule. Treatment of RSV pneumonia as per primary HPI Consult Data Date of Consult: 06/04/24 HPI Narrative Reason for Consultation: ESRD HPI Narrative: GENET [place], is a 79 M who presents to the hospital with fever, chills, shortness of breath. Nephrology on consultation in view of ESRD. ESRD on hemodialysis Friday, Friday, Friday. This week he had dialysis yesterday in view of holiday schedule. Presented with above complaints. Admitted for RSV pneumonitis. Has a right arm AV fistula for access. Currently denies any complaints. REPLACED BY [facility] Medical History (Updated 06/04/24 @ 11:[address] Jan Abarca MD) AV fistula End-stage renal disease Hyperlipidemia History of recurrent UTIs Chronic indwelling Torres catheter Urinary retention Prostate cancer Candidiasis, intertrigo Orthostatic hypotension Hypothyroidism Gout Obesity (BMI 30.0-34.9) Home Medications ?Medication ?Instructions ?Recorded ?Last Taken ?Type allopurinol 100 mg tablet 100 mg PO DAILY 06/03/24 Unknown History allopurinol 100 mg tablet 100 mg PO DAILY 06/03/24 Unknown History levothyroxine 88 mcg tablet 88 mcg PO DAILY 06/03/24 Unknown History levothyroxine 88 mcg tablet 88 mcg PO DAILY 06/03/24 Unknown History midodrine 5 mg tablet 5 mg PO BID 06/03/24 Unknown History midodrine 5 mg tablet 5 mg PO BID 06/03/24 Unknown History nystatin 100,000 unit/gram topical 1 applic topical BID 06/03/24 Unknown History cream oxybutynin chloride 5 mg tablet 5 mg PO BID 06/03/24 Unknown History sertraline 50 mg tablet 50 mg PO DAILY 06/03/24 Unknown History sertraline 50 mg tablet 50 mg PO DAILY 06/03/24 Unknown History sevelamer carbonate 800 mg tablet 800 mg PO TID 06/03/24 Unknown History simvastatin 20 mg tablet 20 mg PO QPM 06/03/24 Unknown History simvastatin 20 mg tablet 20 mg PO QPM 06/03/24 Unknown History Allergy/AdvReac Type Severity Reaction Status Date / Time iodine Allergy Intermediate Hives Verified 06/03/24 15:16 Family History (Updated 06/04/24 @ 01:[address] Elana Degroot DO) Other Heart disease Hypertension Surgical History (Updated 06/04/24 @ 01:[address] Elana Degroot DO) History of left hip hemiarthroplasty History of prostate surgery Social History (Updated 06/04/24 @ 01:[address] Elana Degroot DO) household members: none Smoking Status: Former smoker alcohol intake: never substance use type: does not use additional social history: Ambulates with a wheeled walker at baseline ROS ROS Narrative Negative except above Physical Exam Narrative Alert awake oriented x 3 no obvious distress no pallor no icterus no JVD s1s2 no murmurs lungs clear abdomen soft no organomegaly no edema no cyanosis Lab / Micro Data 06/04/24 05:30 06/04/24 05:30 Labs: Laboratory Results - last 24 hr 06/03/24 15:53: WBC 6.7, RBC 4.42 L, Hgb 13.0, Hct 42.1, MCV 95.2 H, MCH 29.4, M CHC 30.9 L, RDW Std Deviation 53.9 H, RDW Coeff of Filomena 15.6 H, Plt Count 153, MPV 10.2, Immature Gran % (Auto) 0.400, Neut % (Auto) 72.3 H, Lymph % (Auto) 12.1 L, [place] % (Auto) 9.1, Eos % (Auto) 5.2 H, Baso % (Auto) 0.9, Absolute Neuts (auto) 4.8, Absolute Lymphs (auto) 0.81 L, Nucleated RBC % 0, Sodium 137, Potassium 4.6, Chloride 100, Carbon Dioxide 32.0, Anion Gap 5, BUN 21 H, C reatinine 2.81 H, Estim Creat Clear Calc 26.91, Est GFR (MDRD) Af Amer 28 L, Est GFR (MDRD) Non-Af 23 L, BUN/Creatinine Ratio 7.5 L, Glucose 85, Calcium 9.7, Troponin I High Sens 10 06/03/24 18:28: Troponin I High Sens 10 06/04/24 05:30: WBC 4.6, RBC 4.30 L, Hgb 12.7 L, Hct 41.5, MCV 96.5 H, MCH 29.5, MCHC 30.6 L, RDW Std Deviation 56.1 H, RDW Coeff of Filomena 15.8 H, Plt Count 146 L, MPV 11.2, Immature Gran % (Auto) 0.400, Neut % (Auto) 89.2 H, Lymph % (Auto) 8.0 L, [place] % (Auto) 2.2, Eos % (Auto) 0.0, Baso % (Auto) 0.2, Absolute Neuts (auto) 4.1, Absolute Lymphs (auto) 0.37 L, Nucleated RBC % 0, Sodium 136, Potassium 4.6, Chloride 101, Carbon Dioxide 28.0, Anion Gap 7, BUN 35 H, Creatinine 4.20 H , Estim Creat Clear Calc 17.77, Est GFR (MDRD) Af Amer 18 L, Est GFR (MDRD) Non- Af 15 L, BUN/Creatinine Ratio 8.3 L, Glucose 201 H, Calcium 9.5, Phosphorus 3.0, Magnesium 2.4, Total Bilirubin 0.40, AST 20, ALT 16, Alkaline Phosphatase 97, Total Protein 7.9, Albumin 3.3, Globulin 4.6 H, Albumin/Globulin Ratio 0.7 L Micro: Microbiology 06/03/24 23:35 Sputum, Expectorated/Coughed Gram Stain - Final 06/03/24 15:38 Mucosa - Nose SARS-CoV-2, Influenza & RSV (PCR) - Final RSV Rhythm Strip Rhythm Strip: Sinus Rhythm Rate: 82 Ectopy: None Imaging Radiology Impression Chest X-Ray 06/03/24 16:10 IMPRESSION: Right hilar asymmetry and possible right infrahilar mass or masslike consolidation.. Left hemidiaphragm is silhouetted suggesting consolidation of left lower lobe. CT recommended for further evaluation Electronically Signed: Tommy Skinner MD at 16:41 EST Reading Location ID and State: [facility] / [place] Tel , Service support , Chest CT 06/03/24 16:43 IMPRESSION: Minor atelectasis of the left upper and lower lobes in association with loss of volume of the left hemithorax Other findings as above Electronically Signed: Tommy Skinner MD at 18:45 EST ,
--- NOTE | 2024-06-04 11:59 | CHAPLAIN ---
Type of Pastoral Visit _x__ Initial Visit ___ Follow-up Visit ___ On-call Visit ___ General Patient Visit ___ Spiritual Assessment ___ Family Conference ___ Bereavement ___ Rapid Response ___ Code Blue ___ Other (describe below) Pastoral Care Referral From _x__ Patient ___ Family ___ Nurse ___ Physician ___ Banquet Manager ___ Medical Authorization Specialist ___ Other (describe below) Sacrament/Intervention _x__ Active listening ___ Anointing ___ Moravian ___ Bereavement ___ Communion _x__ Skyla exploration ___ _x__ Life review _x__ Prayer ___ Reconciliation ___ Sacrament of Sick _x__ Supportive presence ___ Wedding ___ Other (describe below) Pastoral Comments patient is welcoming and eager to talk about his health decline over the last year and how he is handling the changes along with financial adjustments/embarrassments; pt has had some time in SNF and was supported by the monomer purification operator there; pt states that this situation has alerted him to more skyla development and interest; pt reports of friend support and a connection with a local yazidi/naprapath that he can call upon as well; pt requests prayer
[2024-06-04] MEDS: 0.9% Saline Lock 10 ML Syringe IV ×2 (15:17→21:37)
--- NOTE | 2024-06-04 15:36 | CASEMGMT ---
Met with patient to complete PAN form. PAN form explained to patient who voiced understanding and signed form. Original form placed in pt?s chart and copy provided to patient. Tracey Bansal, Discharge Planning Asst
--- NOTE | 2024-06-04 16:16 | CASEMGMT ---
MELLY CM into pt room, pt lying in bed on RA. Pt states he has dialysis M/W/F at [facility] at 11am. Pt has taxi that takes him. Pt has an aide M-F mornings and evenings from [place]. Pt has [facility] for SN every other week for catheter. Pt states his insurance keeps cutting therapy so they cannot see him. Pt has a walker, rollator and shower bench, hospital bed at home. Pt aide does laundry and cleaning. Pt denies any further needs at home. Pt provided a verbal list of local DME companies, pt chose [employer]. Green sheet on chart.
[2024-06-04] MEDS: Atorvastatin Calcium 10 MG Tablet PO (21:37)
[2024-06-05] VITALS (16 sets, daily range): BP systolic 80–257; BP diastolic 61–89; PULSE 70–87; RESP 16–20; TEMP 36.4–36.9; O2SAT 90–99; BMI 32.3; BMI 31.8
[2024-06-05] MEDS: Ipratropium/Albuterol Sulfate 3 ML AMPUL.NEB INHALATION ×6 (03:33→23:04)
[2024-06-05 05:05] LABS: Absolute Lymphocyte Count 0.62 X10^3/uL (0.83-4.51); Absolute Neutrophil Count 10.6 X10^3/uL (2.0-7.7); Basophil# 0.01 X10^3/uL; Basophil% 0.1 % (0-1); Hematocrit 37.9 % (40-54); Hemoglobin 11.7 g/dL (13.0-16.5); Lymphocyte # 0.62 X10^3/ul (0.83-4.51); Lymphocyte % 5.4 % (19-41); Mean Corp Hgb Conc 30.9 g/dL (32-36); Mean Corpuscular Hgb 29.3 pg (27.0-32.0); Mean Corpuscular Volume 94.8 fL (80-94); Mean Platelet Vol. 10.9 fl (6.2-12.0); Monocyte# 0.24 X10^3/uL; Monocyte% 2.1 % (0-10); NRBC Flagged by Analyzer 0 % (0-5); Neutrophil % 91.7 % (47-70); Platelet Count 180 K/mm3 (150-450); RBC Distribution Width CV 15.9 % (11.6-14.6); RBC Distribution Width SD 55.4 fl (35.1-43.9); White Blood Count 11.6 K/mm3 (4.4-11.0)
[2024-06-05 05:28] LABS: Anion Gap 11 (5-15); BUN 67 mg/dL (7-18); BUN/Creat Ratio 12.6 RATIO (10-20); Calcium,Total 9.7 mg/dL (8.5-10.1); Chloride 99 mmol/L (98-107); Creatinine, Serum 5.33 mg/dL (0.70-1.30); EST Glomerular Filtration Rate 11 mL/min (>60); Est Glom Filt Rate - Afr Amer 14 mL/min (>60); Estimated Creatinine Clearance 14.01 ml/min; Glucose 177 mg/dL (74-106); Magnesium 2.4 mg/dL (1.6-2.6); Phosphorus 3.8 mg/dL (2.5-4.9); Potassium 4.5 mmol/L (3.5-5.1); Sodium Level 136 mmol/L (136-145)
[2024-06-05] MEDS: Heparin Injection (Vial) 5,000 UNIT/ML VIAL 5000 UNIT SC ×3 (05:58→23:07)
[2024-06-05] MEDS: Levothyroxine 88 MCG Tablet PO (05:58)
[2024-06-05] MEDS: 0.9% Saline Lock 10 ML Syringe IV ×5 (05:58→23:07)
--- NOTE | 2024-06-05 07:39 | PN.HOSP_ITS ---
Reason for Visit Reason for Visit: Diagnoses Acute bronchiolitis due to respiratory syncytial virus (06/03/24) End stage renal disease (06/03/24) Cough, unspecified (06/03/24) Shortness of breath (06/03/24) Weakness (06/03/24) Subjective Subjective Patient seen symptoms continue to improve. Seen currently undergoing dialysis Objective Data Objective Data Vital Signs: Vital Signs Temp Pulse Resp BP Pulse Ox O2 Del Method 97.6 F L 82 18 131/74 H 96 Room Air 06/05/24 06:03 06/05/24 07:26 06/05/24 07:26 06/05/24 06:03 06/05/24 07:26 06/05/24 07:26 Oxygen Delivery Method Room Air Weight: 104.916 kg Body Mass Index (BMI) 32.3 Intake & Output: Intake and Output for Last 24 Hours 06/03/24 06/04/24 06/05/24 23:59 23:59 23:59 Output Total 650 / 900 400 / 400 Balance -650 / -900 -400 / -400 Lab / Micro Data 06/05/24 03:51 06/05/24 03:51 Labs: Laboratory Results - last 24 hr 06/05/24 03:51: WBC 11.6 H, RBC 4.00 L, Hgb 11.7 L, Hct 37.9 L, MCV 94.8 H, MCH 29.3, MCHC 30.9 L, RDW Std Deviation 55.4 H, RDW Coeff of Filomena 15.9 H, Plt Count 180, MPV 10.9, Immature Gran % (Auto) 0.700, Neut % (Auto) 91.7 H, Lymph % (Auto) 5.4 L, [place] % (Auto) 2.1, Eos % (Auto) 0.0, Baso % (Auto) 0.1, Absolute Neuts (auto) 10.6 H, Absolute Lymphs (auto) 0.62 L, Nucleated RBC % 0, Sodium 136, Potassium 4.5, Chloride 99, Carbon Dioxide 25.0, Anion Gap 11, BUN 67 H, C reatinine 5.33 H, Estim Creat Clear Calc 14.01, Est GFR (MDRD) Af Amer 14 L, Est GFR (MDRD) Non-Af 11 L, BUN/Creatinine Ratio 12.6, Glucose 177 H, Calcium 9.7, Phosphorus 3.8, Magnesium 2.4 Micro: Microbiology 06/03/24 23:35 Sputum, Expectorated/Coughed Gram Stain - Final 06/03/24 15:38 Mucosa - Nose SARS-CoV-2, Influenza & RSV (PCR) - Final RSV Rhythm Strip Rhythm Strip: Sinus Rhythm Rate: 82 Ectopy: None Physical Exam Narrative GENERAL: cooperative HEENT: Atraumatic; normocephalic EYES; Anicteric, Normal Conjunctiva NECK; supple, normal thyroid, RESPIRATORY: Diminished to auscultation CARDIOVASCULAR: Regular S1 S2, GI: soft, normoactive bowel sounds, : No Renal angle tenderness; EXTREMITIES: No edema, no clubbing, MUSCULOSKELETAL: no muscle wasting NEURO: Awake; no lateralizing signs. SKIN: No Rash PSYCH; Flat affect Assessment & Plan Assessment/Plan (1) Cough: (2) RSV (acute bronchiolitis due to respiratory syncytial virus): (3) Shortness of breath: (4) Generalized weakness: PLAN: Plan Patient is a 79-year-old gentleman who presented with shortness of breath imaging studies demonstrated atelectasis of the left upper and lower lobes with volume loss of the left hemithorax. Patient viral respiratory panel came back positive for RSV admitted to regular nursing floor for further management 1. Acute viral pneumonia with RSV ? Patient has been admitted to regular nursing floor and symptom management initiated in addition to Solu-Medrol, Mucinex and supplemental oxygen ? 06/2024; patient has been weaned off oxygen and is currently on room air. Symptoms continue to improve. 2. End-stage renal disease ? Patient is on dialysis on Wednesdays and Fridays consult placed to nephrology for dialysis orders 3. Chronic orthostatic hypotension ? Patient is on midodrine 4. Hypothyroidism ? Patient is on levothyroxine home dose continued 5. Dyslipidemia ?Patient is on statin therapy, continued at home dose 6. Bladder outlet obstruction ? Multifactorial including BPH, history of prostate cancer. Patient has a Torres catheter 7. Gout ? Patient is on allopurinol 8. DVT prophylaxis ? Subcu heparin CODE STATUS full code Time spent in the patient's overall evaluation,decision-making process, review of diagnostic data, adjustment of management, discussion with other providers, nursing nursing and ancillary staff involved in patient's care documentation, 38 Minutes Charges/Coding Visit Charges Inpatient E&M: 99623 Subs Hosp L2
[2024-06-05] MEDS: 0.9% Normal Saline 1,000 ML IV.SOLN. 1000 ML OPERA.SITE (08:09)
[2024-06-05] MEDS: PureFlow B 2K Dialysis Soln 1 BAG 6 BAG PF (08:10)
[2024-06-05] MEDS: Midodrine HCl 5 MG Tablet PO ×2 (08:41→16:59)
[2024-06-05] MEDS: Oxybutynin 5 MG Tablet PO ×2 (11:08→16:59)
[2024-06-05] MEDS: SEVELAMER CARBONATE 800 MG TABLET PO ×2 (11:08→16:59)
[2024-06-05] MEDS: guaiFENesin 1,200 MG Tablet 1200 MG PO ×2 (11:08→23:07)
[2024-06-05] MEDS: Sertraline 50 MG Tablet PO (11:08)
[2024-06-05] MEDS: Doxycycline 100 MG CAPSULE PO ×2 (11:08→23:08)
[2024-06-05] MEDS: Allopurinol 100 MG Tablet PO (11:08)
--- NOTE | 2024-06-05 18:20 | PN.RENAL_ITS ---
Subjective Subjective Following for ESRD. The patient was dialyzed earlier today. He denies current chest pain, nausea or vomiting. Dyspnea has improved. However, he still has subjective wheezing. Objective Data Objective Data Vital Signs: Vital Signs Temp Pulse Resp BP Pulse Ox O2 Del Method 98.1 F 70 18 128/67 H 94 Room Air 06/05/24 14:36 06/05/24 15:13 06/05/24 15:13 06/05/24 14:36 06/05/24 14:36 06/05/24 14:36 Oxygen Delivery Method Room Air Weight: 103.4 kg Body Mass Index (BMI) 31.8 Intake & Output: Intake and Output for Last 24 Hours 06/03/24 06/04/24 06/05/24 23:59 23:59 23:59 Intake Total 360 / 360 Output Total 650 / 900 2174 / 2174 Balance -650 / -900 -1814 / -1814 Lab / Micro Data 06/05/24 03:51 06/05/24 03:51 Labs: Laboratory Results - last 24 hr 06/05/24 03:51: WBC 11.6 H, RBC 4.00 L, Hgb 11.7 L, Hct 37.9 L, MCV 94.8 H, MCH 29.3, MCHC 30.9 L, RDW Std Deviation 55.4 H, RDW Coeff of Filomena 15.9 H, Plt Count 180, MPV 10.9, Immature Gran % (Auto) 0.700, Neut % (Auto) 91.7 H, Lymph % (Auto) 5.4 L, [place] % (Auto) 2.1, Eos % (Auto) 0.0, Baso % (Auto) 0.1, Absolute Neuts (auto) 10.6 H, Absolute Lymphs (auto) 0.62 L, Nucleated RBC % 0, Sodium 136, Potassium 4.5, Chloride 99, Carbon Dioxide 25.0, Anion Gap 11, BUN 67 H, C reatinine 5.33 H, Estim Creat Clear Calc 14.01, Est GFR (MDRD) Af Amer 14 L, Est GFR (MDRD) Non-Af 11 L, BUN/Creatinine Ratio 12.6, Glucose 177 H, Calcium 9.7, Phosphorus 3.8, Magnesium 2.4 Micro: Microbiology 06/03/24 23:35 Sputum, Expectorated/Coughed Gram Stain - Final 06/03/24 23:35 Sputum, Expectorated/Coughed Respiratory Culture - Preliminary Appears to be normal respiratory sunyn. Further studies to follow. 06/03/24 15:38 Mucosa - Nose SARS-CoV-2, Influenza & RSV (PCR) - Final RSV Rhythm Strip Rhythm Strip: Sinus Rhythm Rate: 82 Ectopy: None Physical Exam Narrative Alert awake oriented x 3 no obvious distress no pallor no icterus no JVD s1s2 no murmurs lungs with diffuse rhonchi bilaterally abdomen soft no organomegaly no edema no cyanosis Assessment & Plan Assessment/Plan (1) End-stage renal disease: PLAN: Plan Impression/Plan: The patient is a 79-year-old male with past history of ESRD, gout, hypothyroidism, chronic hypotension on midodrine, prostate cancer, bladder dysfunction (outlet obstruction) requiring chronic Torres catheter. Patient is admitted to the hospital on 06/03/2024 for treatment of acute hypoxic respiratory failure attributed to viral pneumonia with RSV. Nephrology is following for ESRD and dialysis management. ESRD. Patient dialyzes on MWF schedule at [facility] dialysis [facility]. Patient wanted to be dialyzed today instead of yesterday. He was dialyzed earlier today without any issues. Next dialysis will be scheduled for 06/07/2024 to get him back on schedule unless he is discharged before then.
[2024-06-05] MEDS: Nystatin Ointment 1 APPLIC TOPICAL (23:08)
[2024-06-05] MEDS: Atorvastatin Calcium 10 MG Tablet PO (23:08)
[2024-06-06 02:53] VITALS: PULSE 77; RESP 20
[2024-06-06] MEDS: Ipratropium/Albuterol Sulfate 3 ML AMPUL.NEB INHALATION ×3 (02:53→10:45)
[2024-06-06 06:00] VITALS: BMI 32.6
[2024-06-06 06:10] VITALS: BP 138/62; PULSE 70; RESP 16; TEMP 36.5; O2SAT 92
[2024-06-06] MEDS: Heparin Injection (Vial) 5,000 UNIT/ML VIAL 5000 UNIT SC (06:12)
[2024-06-06] MEDS: Levothyroxine 88 MCG Tablet PO (06:12)
[2024-06-06 06:36] LABS: Absolute Lymphocyte Count 0.62 X10^3/uL (0.83-4.51); Absolute Neutrophil Count 9.4 X10^3/uL (2.0-7.7); Basophil# 0.01 X10^3/uL; Basophil% 0.1 % (0-1); Hematocrit 38.6 % (40-54); Hemoglobin 11.6 g/dL (13.0-16.5); Lymphocyte # 0.62 X10^3/ul (0.83-4.51); Mean Corp Hgb Conc 30.1 g/dL (32-36); Mean Corpuscular Volume 96.5 fL (80-94); Mean Platelet Vol. 10.7 fl (6.2-12.0); Monocyte% 1.9 % (0-10); NRBC Flagged by Analyzer 0 % (0-5); Neutrophil # 9.36 X10^3/uL (2.7-7.7); Platelet Count 185 K/mm3 (150-450); RBC Distribution Width SD 56.8 fl (35.1-43.9); White Blood Count 10.3 K/mm3 (4.4-11.0)
[2024-06-06 06:51] VITALS: PULSE 83; RESP 18; O2SAT 94
[2024-06-06 07:26] LABS: Anion Gap 10 (5-15); BUN 74 mg/dL (7-18); BUN/Creat Ratio 15.7 RATIO (10-20); Calcium,Total 9.6 mg/dL (8.5-10.1); Chloride 101 mmol/L (98-107); EST Glomerular Filtration Rate 13 mL/min (>60); Est Glom Filt Rate - Afr Amer 16 mL/min (>60); Estimated Creatinine Clearance 16.03 ml/min; Glucose 162 mg/dL (74-106); Potassium 4.5 mmol/L (3.5-5.1); Sodium Level 136 mmol/L (136-145)
--- NOTE | 2024-06-06 07:26 | DS.PCM_ITS ---
Providers Date of Admission: 06/05/24 Date of Discharge: 06/06/24 Primary Care Physician: Dr. Ata Hernandez MD Consultations 06/03/24 22:28 Consult: Nephrology Routine Consulting Provider: Jan Abarca Reason for Consult: HD pt EMERGENT Consult: No MD Notified: Yes Date Notified: 06/04/24 Time Notified: 10:51 Method of Notification: office Reason For Visit: SHORTNESS OF BREATH/SYED Diagnosis Discharge Diagnosis (1) End-stage renal disease: Status: Acute Code(s): N18.6 - End stage renal disease Plan Patient is a 79-year-old gentleman who presented with shortness of breath imaging studies demonstrated atelectasis of the left upper and lower lobes with volume loss of the left hemithorax. Patient viral respiratory panel came back positive for RSV admitted to regular nursing floor for further management 1. Acute viral pneumonia with RSV ? Patient has been admitted to regular nursing floor and symptom management initiated in addition to Solu-Medrol, Mucinex and supplemental oxygen ? 06/2024; patient has been weaned off oxygen and is currently on room air. Symptoms continue to improve. 2. End-stage renal disease ? Patient is on dialysis on Wednesdays and Fridays consult placed to nephrology for dialysis orders 3. Chronic orthostatic hypotension ? Patient is on midodrine 4. Hypothyroidism ? Patient is on levothyroxine home dose continued 5. Dyslipidemia ?Patient is on statin therapy, continued at home dose 6. Bladder outlet obstruction ? Multifactorial including BPH, history of prostate cancer. Patient has a Torres catheter 7. Gout ? Patient is on allopurinol 8. DVT prophylaxis ? Subcu heparin CODE STATUS full code Time spent in the patient's overall evaluation,decision-making process, review of diagnostic data, adjustment of management, discussion with other providers, nursing nursing and ancillary staff involved in patient's care documentation, 38 Minutes Medications at Discharge Home Medications allopurinol 100 mg tablet 100 mg PO DAILY 06/03/24 allopurinol 100 mg tablet 100 mg PO DAILY 06/03/24 levothyroxine 88 mcg tablet 88 mcg PO DAILY 06/03/24 levothyroxine 88 mcg tablet 88 mcg PO DAILY 06/03/24 midodrine 5 mg tablet 5 mg PO BID 06/03/24 midodrine 5 mg tablet 5 mg PO BID 06/03/24 nystatin 100,000 unit/gram topical cream 1 applic topical BID 06/03/24 oxybutynin chloride 5 mg tablet 5 mg PO BID 06/03/24 sertraline 50 mg tablet 50 mg PO DAILY 06/03/24 sertraline 50 mg tablet 50 mg PO DAILY 06/03/24 sevelamer carbonate 800 mg tablet 800 mg PO TID 06/03/24 simvastatin 20 mg tablet 20 mg PO QPM 06/03/24 simvastatin 20 mg tablet 20 mg PO QPM 06/03/24 doxycycline monohydrate 100 mg capsule 100 mg PO BID #14 caps 06/06/24 guaifenesin 1,200 mg tablet, extended release 12 hr (Mucus Relief ER) 1,200 mg PO BID #20 tabs 06/06/24 prednisone 20 mg tablet 20 mg PO BID #10 tabs 06/06/24 Physical Exam Narrative GENERAL: cooperative HEENT: Atraumatic; normocephalic EYES; Anicteric, Normal Conjunctiva NECK; supple, normal thyroid, RESPIRATORY: Diminished to auscultation CARDIOVASCULAR: Regular S1 S2, GI: soft, normoactive bowel sounds, : No Renal angle tenderness; EXTREMITIES: No edema, no clubbing, MUSCULOSKELETAL: no muscle wasting NEURO: Awake; no lateralizing signs. SKIN: No Rash PSYCH; Flat affect Weight / BMI Weight Weight: 105.8 kg Body Mass Index (BMI) 32.6 ABG / Lab / Microbiology Data 06/06/24 05:42 06/06/24 05:42 Laboratory: Laboratory Results - last 24 hr 06/06/24 05:42: WBC 10.3, RBC 4.00 L, Hgb 11.6 L, Hct 38.6 L, MCV 96.5 H, MCH 29.0, MCHC 30.1 L, RDW Std Deviation 56.8 H, RDW Coeff of Filomena 16.0 H, Plt Count 185, MPV 10.7, Immature Gran % (Auto) 1.000 H, Neut % (Auto) 91.0 H, Lymph % (Auto) 6.0 L, [place] % (Auto) 1.9, Eos % (Auto) 0.0, Baso % (Auto) 0.1, Absolute Neuts (auto) 9.4 H, Absolute Lymphs (auto) 0.62 L, Nucleated RBC % 0, Sodium 136, Potassium 4.5, Chloride 101, Carbon Dioxide 25.0, Anion Gap 10, BUN 74 H, C reatinine 4.70 H, Estim Creat Clear Calc 16.03, Est GFR (MDRD) Af Amer 16 L, Est GFR (MDRD) Non-Af 13 L, BUN/Creatinine Ratio 15.7, Glucose 162 H, Calcium 9.6 Microbiology: Microbiology 06/03/24 23:35 Sputum, Expectorated/Coughed Gram Stain - Final 06/03/24 23:35 Sputum, Expectorated/Coughed Respiratory Culture - Preliminary Appears to be normal respiratory sunny. Further studies to follow. 06/03/24 15:38 Mucosa - Nose SARS-CoV-2, Influenza & RSV (PCR) - Final RSV D/C Instructions Discharge Diet: Renal Diet Discharge Activity: Return to Normal Activity Call your doctor if you observe: Fever of 101 or Higher, Shortness of breath, Fainting spells and Chest pain DC O2, CPAP, BIPAP Needs Home O2 Discharge instructions: No Meaningful Use Info Meaningful Use Meaningful Use Diagnoses (Choose all that apply): None applicable Ischemic Stroke Statin Dosing Therapy Reference: STATIN DOSE THERAPY REFERENCE: * Patients > 75 years receive moderate or high dose statin therapy. * Patients 75 years or YOUNGER should receive HIGH intensity statin dose unless contraindicated. You will be required to document reason for non-treatment if statin daily dose does not meet guidelines. HIGH DOSE STATIN THERAPY DAILY Atorvastatin > than or = to 40 mg Rosuvastatin > than or = to 20 mg Amlodipine + Atorvastatin > than or = to 2.5/40 mg Ezetimibe + Simvastatin 10/80 mg Simvastatin 80mg Discharge Plan Admission Admit Date/Time: 06/05/24 14:36 Attending Provider: Jake Yoo Primary Care Provider: Ata Hernandez Consulting Providers: Elana Degroot; Jan Abarca Discharge Orders/Prescriptions Prescriptions: New doxycycline monohydrate 100 mg Capsule 100 mg PO BID Qty: 14 0RF guaifenesin [Mucus Relief ER] 1,200 mg Tablet Extended Release 12hr 1,200 mg PO BID Qty: 20 0RF prednisone 20 mg tablet 20 mg PO BID Qty: 10 0RF Continued midodrine 5 mg tablet 5 mg PO BID allopurinol 100 mg tablet 100 mg PO DAILY levothyroxine 88 mcg tablet 88 mcg PO DAILY simvastatin 20 mg tablet 20 mg PO QPM nystatin 100,000 unit/gram cream 1 applic topical BID oxybutynin chloride 5 mg tablet 5 mg PO BID sertraline 50 mg tablet 50 mg PO DAILY sevelamer carbonate 800 mg tablet 800 mg PO TID midodrine 5 mg tablet 5 mg PO BID allopurinol 100 mg tablet 100 mg PO DAILY levothyroxine 88 mcg tablet 88 mcg PO DAILY simvastatin 20 mg tablet 20 mg PO QPM sertraline 50 mg tablet 50 mg PO DAILY Referrals / Follow Up: Ata Hernandez MD [Primary Care Provider] - Within 1 Week Disposition Disposition (needs filled in before D/C Order can be placed): Home, Self Care Charges/Coding Visit Charges Inpatient E&M: 59859 Disch Hosp >30min
[2024-06-06 08:17] VITALS: BP 147/68; PULSE 76; RESP 18; TEMP 36.6; O2SAT 94
[2024-06-06] MEDS: Oxybutynin 5 MG Tablet PO (08:26)
[2024-06-06] MEDS: guaiFENesin 1,200 MG Tablet 1200 MG PO (08:26)
[2024-06-06] MEDS: SEVELAMER CARBONATE 800 MG TABLET PO (08:26)
[2024-06-06] MEDS: Allopurinol 100 MG Tablet PO (08:26)
[2024-06-06] MEDS: Doxycycline 100 MG CAPSULE PO (08:26)
[2024-06-06] MEDS: Midodrine HCl 5 MG Tablet PO (08:26)
[2024-06-06] MEDS: Sertraline 50 MG Tablet PO (08:26)
[2024-06-06] MEDS: Nystatin Ointment 1 APPLIC TOPICAL (08:27)
[2024-06-06 10:46] VITALS: PULSE 85; RESP 18
== END 2024-06-06 11:56 | disposition home or self-care (01) | DRG 193 ==
LOC: ED 20:36 → MS3 21:02
PROVIDERS: Admitting Provider Internal Medicine; Emergency Provider Emergency Medicine; Visit Provider Internal Medicine
DX: J12.1 Respiratory syncytial virus pneumonia (principal); N18.6 End stage renal disease; J21.0 Acute bronchiolitis due to respiratory syncytial virus; Z99.2 Dependence on renal dialysis; E03.9 Hypothyroidism, unspecified; E66.9 Obesity, unspecified; E78.5 Hyperlipidemia, unspecified; M10.9 Gout, unspecified; I95.89 Other hypotension; N32.0 Bladder-neck obstruction; Z87.891 Personal history of nicotine dependence; Z79.899 Other long term (current) drug therapy; Z68.32 Body mass index [BMI] 32.0-32.9, adult
CPT/HCPCS: 36415; 71046; 71250; 80048; 80053; 83735; 84100; 84484; 85025; 87070; 87205; 87631; 90937; 93005; 94640; 94668; 97162; 97166; 99252; 99285; A4216; G0257; G0463

== ENCOUNTER 2024-06-28 10:03 | Observation (INO) | payer MEDICARE, MEDICAID, SELFPAY ==
[2024-06-28] VITALS (7 sets, daily range): BP systolic 109–129; BP diastolic 49–75; PULSE 68–83; RESP 16–18; TEMP 36.3–36.6; O2SAT 89–98; BMI 32.0; BMI 31.8
--- NOTE | 2024-06-28 10:24 | EX.ED.DYSGE1 ---
HPI History of Present Illness Chief Complaint: Abd Pain Informant: patient Narrative Narrative: 79-year-old male very weak and aggressive diarrhea for the past week. He was on antibiotics prior to that for pneumonia, states he also was diagnosed with RSV and had a UTI, he has been finished with antibiotics for couple weeks he states. He states he has never had diarrhea like this. Never been diagnosed with C. difficile before. Is a dialysis patient is due today but was afraid to go because he has been having so much diarrhea and they will not be able to clean me out. He has an indwelling Torres catheter because of prostate issues and has been in for several years he had it last changed less than 1 month ago. He has been having generalized periumbilical abdominal soreness with the diarrhea. No vomiting until this morning when he dry heaves a couple times. He has seen no blood in emesis or diarrhea. [facility] Medical History AV fistula End-stage renal disease Hyperlipidemia History of recurrent UTIs Chronic indwelling Torres catheter Urinary retention Prostate cancer Candidiasis, intertrigo Orthostatic hypotension Hypothyroidism Gout Obesity (BMI 30.0-34.9) Home Medications ?Medication ?Instructions ?Recorded ?Last Taken ?Type allopurinol 100 mg tablet 100 mg PO DAILY 06/03/24 Unknown History allopurinol 100 mg tablet 100 mg PO DAILY 06/03/24 Unknown History levothyroxine 88 mcg tablet 88 mcg PO DAILY 06/03/24 Unknown History levothyroxine 88 mcg tablet 88 mcg PO DAILY 06/03/24 Unknown History midodrine 5 mg tablet 5 mg PO BID 06/03/24 Unknown History midodrine 5 mg tablet 5 mg PO BID 06/03/24 Unknown History nystatin 100,000 unit/gram topical 1 applic topical BID 06/03/24 Unknown History cream oxybutynin chloride 5 mg tablet 5 mg PO BID 06/03/24 Unknown History sertraline 50 mg tablet 50 mg PO DAILY 06/03/24 Unknown History sertraline 50 mg tablet 50 mg PO DAILY 06/03/24 Unknown History sevelamer carbonate 800 mg tablet 800 mg PO TID 06/03/24 Unknown History simvastatin 20 mg tablet 20 mg PO QPM 06/03/24 Unknown History simvastatin 20 mg tablet 20 mg PO QPM 06/03/24 Unknown History doxycycline monohydrate 100 mg 100 mg PO BID #14 caps 06/06/24 Unknown Rx capsule guaifenesin 1,200 mg tablet, 1,200 mg PO BID #20 tabs 06/06/24 Unknown Rx extended release 12 hr (Mucus Relief ER) prednisone 20 mg tablet 20 mg PO BID #10 tabs 06/06/24 Unknown Rx Allergy/AdvReac Type Severity Reaction Status Date / Time iodine Allergy Intermediate Hives Verified 06/03/24 15:16 Family History Other Heart disease Hypertension Surgical History History of left hip hemiarthroplasty History of prostate surgery Social History household members: none Smoking Status: Former smoker alcohol intake: never substance use type: does not use additional social history: Ambulates with a wheeled walker at baseline ROS ROS ED Constitutional Constitutional ED: Reports weakness; Denies chills or fever(s) Eyes Eyes: Denies change in vision or diplopia ENT ENT ED: Denies rhinorrhea or sore throat Cardiovascular Cardiovascular: Denies chest pain or palpitations Respiratory/Chest Respiratory/Chest: Denies cough or dyspnea Gastrointestinal Gastrointestinal: Reports abdominal pain, diarrhea, nausea and vomiting; Denies hematemesis, hematochezia or melena Genitourinary Genitourinary ED: Reports other Details: Continuing to make urine via Torres catheter Musculoskeletal Musculoskeletal: Denies back pain or neck pain Integumentary Denies abscess or rash Neurologic Neurologic: Denies headache(s), paresthesias or weakness EXAM Physical Exam Const Vital Signs: 06/28/24 10:06 Temperature 97.8 F Temperature Source Oral Pulse Rate 71 Respiratory Rate 18 Blood Pressure 121/67 H Blood Pressure Mean 85 Pulse Ox 93 Oxygen Delivery Method Room Air Positive well nourished and well developed General Appearance ED: well developed and NAD HEENT Reports moist mucous membranes normocephalic and atraumatic Eyes PERRL and EOMs intact bilaterally Neck full ROM and supple Resp normal respiratory effort and clear to auscultation bilaterally Cardio regular rate and regular rhythm GI non-distended GI Narrative: Mild diffuse abdominal tenderness, no guarding or rebound Auscultation: normoactive bowel sounds Palpation: soft Narrative: Torres catheter with small amount of bloody urine sitting on top of what appears to be opaque cloudy yellow urine. Back/Spine no CVA tenderness General Back: other FROM Extremity normal to inspection Extremity Narrative: Good thrill right forearm AV fistula. Good distal pulses x 4. General Extremety ED: Negative for edema, pulses abnormal or tenderness General Extremity: Negative for edema or pulses abnormal Neuro oriented x3, CN's II-XII intact bilaterally and no sensory deficits noted Sensorium / Orientation: awake and alert Motor Exam: general weakness Psych mental status grossly normal Skin no rashes or lesions noted and no wounds MDM MDM MDM Narrative Medical decision making narrative: Patient could have norovirus which has been prevalent in the community recently or C. difficile given his recent antibiotics and aggressive diarrhea. His vital signs are normal. I am giving him some IV fluids but only 500 cc given he is a dialysis patient. Does not look grossly fluid overloaded, more likely to be under loaded. Also sending for stool C. difficile and enteric bacterial panel to evaluate for etiology as above. Labs noted and fairly unremarkable except for his renal function, he is due for dialysis today, and we treated his pain with morphine and dicyclomine as well as his nausea with Zofran as we gave him 1/2 L of IV fluids as above. Has not been able to provide us with a stool specimen. Patient feeling very weak. I do not think he is advanced imaging of his abdomen/pelvis, I think he probably has enterocolitis, my concern is that his urine is having some blood and it looks opaque, probably infected, and needs antibiotics even though he is not septic, and I need to know if he has C. difficile before I start antibiotics, preferably. He says he is feeling very weak and uncomfortable and wants to be admitted. Given that he missed dialysis today, he states his dialysis center does not do dialysis tomorrow, I think this is reasonable. He has been seen by Dr. Abarca in the past according to records here in the hospital History & Record Review Additional record(s) reviewed:: Prior inpatient record Lab Data Attestation: I reviewed the patient's lab results. Labs: Laboratory Results - last 24 hr 06/28/24 06/28/24 10:35 11:38 WBC 7.6 RBC 4.26 L Hgb 12.4 L Hct 39.1 L MCV 91.8 MCH 29.1 MCHC 31.7 L RDW Std Deviation 54.0 H RDW Coeff of Filomena 16.0 H Plt Count 259 MPV 10.6 Immature Gran % (Auto) 0.700 Neut % (Auto) 79.1 H Lymph % (Auto) 9.7 L [place] % (Auto) 8.8 Eos % (Auto) 1.3 Baso % (Auto) 0.4 Absolute Neuts (auto) 6.0 Absolute Lymphs (auto) 0.74 L Nucleated RBC % 0 Sodium 132 L Potassium 4.7 Chloride 95 L Carbon Dioxide 26.0 Anion Gap 10 BUN 59 H Creatinine 7.22 H Estim Creat Clear Calc 10.36 Est GFR (MDRD) Af Amer 10 L Est GFR (MDRD) Non-Af 8 L BUN/Creatinine Ratio 8.2 L Glucose 99 Calcium 9.5 Total Bilirubin 0.80 AST 15 ALT 17 Alkaline Phosphatase 92 Total Protein 7.3 Albumin 2.7 L Globulin 4.6 H Albumin/Globulin Ratio 0.6 L Urine Color Red Urine Clarity Turbid Urine pH 7.0 Ur Specific [place] 1.010 Urine Protein 100 H Urine Glucose (UA) Normal Urine Ketones 5 H Urine Occult Blood 250 H Urine Nitrite Negative Urine Bilirubin Negative Urine Urobilinogen Normal Ur Leukocyte Esterase 500 H Urine RBC > 100 SEEN Urine WBC >100 SEEN Ur Squamous Epith Cells 0 SEEN Urine Bacteria 0 SEEN Urine Mucus 0 SEEN Management Discussion w/another healthcare provider: Hospitalist Discharge Plan Dx/Rx/DC Orders Clinical Impression: Enterocolitis, ESRD on hemodialysis, Generalized weakness, Catheter-associated urinary tract infection Disposition Disposition: Acute Care Hospital [facility]
[2024-06-28] MEDS: 0.9% Normal Saline (500mL Bag) 500 ML 999 ML IV (10:40)
[2024-06-28] MEDS: Ondansetron 4 MG/2 ML Vial IV (10:40)
[2024-06-28 10:44] LABS: Absolute Lymphocyte Count 0.74 X10^3/uL (0.83-4.51); Basophil# 0.03 X10^3/uL; Basophil% 0.4 % (0-1); Eosinophils% 1.3 % (0-5); Hematocrit 39.1 % (40-54); Hemoglobin 12.4 g/dL (13.0-16.5); Lymphocyte # 0.74 X10^3/ul (0.83-4.51); Lymphocyte % 9.7 % (19-41); Mean Corp Hgb Conc 31.7 g/dL (32-36); Mean Corpuscular Hgb 29.1 pg (27.0-32.0); Mean Corpuscular Volume 91.8 fL (80-94); Mean Platelet Vol. 10.6 fl (6.2-12.0); Monocyte# 0.67 X10^3/uL; Monocyte% 8.8 % (0-10); NRBC Flagged by Analyzer 0 % (0-5); Neutrophil # 6.02 X10^3/uL (2.7-7.7); Neutrophil % 79.1 % (47-70); Platelet Count 259 K/mm3 (150-450); Red Blood Count 4.26 M/mm3 (4.6-6.2); White Blood Count 7.6 K/mm3 (4.4-11.0)
[2024-06-28] MEDS: Morphine 2 MG/ML Syringe IV (10:51)
[2024-06-28] MEDS: Dicyclomine 10 MG Capsule 20 MG PO (10:51)
[2024-06-28 11:05] LABS: ALB/GLOB Ratio 0.6 RATIO (0.9-2.4); AST(SGOT) 15 U/L (15-37); Alanine Aminotransfer ALT/SGPT 17 U/L (16-61); Albumin, Serum 2.7 g/dL (3.2-5.0); Alkaline Phosphatase 92 U/L (45-117); Anion Gap 10 (5-15); BUN 59 mg/dL (7-18); BUN/Creat Ratio 8.2 RATIO (10-20); Calcium,Total 9.5 mg/dL (8.5-10.1); Chloride 95 mmol/L (98-107); Creatinine, Serum 7.22 mg/dL (0.70-1.30); EST Glomerular Filtration Rate 8 mL/min (>60); Est Glom Filt Rate - Afr Amer 10 mL/min (>60); Estimated Creatinine Clearance 10.36 ml/min; Globulin 4.6 g/dL (2.2-4.2); Glucose 99 mg/dL (74-106); Potassium 4.7 mmol/L (3.5-5.1); Protein, Total 7.3 g/dL (6.4-8.2); Sodium Level 132 mmol/L (136-145)
[2024-06-28 11:45] LABS: Bacteria 0 SEEN /hpf (None Seen); Mucous, Urine 0 SEEN /hpf (<or=2+); Squamous Epithelial Cells - UA 0 SEEN /hpf (0-5)
[2024-06-28 12:09] LABS: Color, Urine Red (Yellow); Glucose, Dipstick Normal (Normal); Ketone-Dipstick 5 mg/dl (Negative); Leukocyte Esterase-Dipstick 500 /ul (Negative); Nitrite-Dipstick Negative (Negative); Occult Blood-Urine 250 /ul (Negative); Protein-Dipstick 100 mg/dl (Negative); Urine Bilirubin Dipstick Negative (Negative); Urine Clarity Turbid (Clear); Urine Urobilinogen Normal (Normal)
[2024-06-28 12:29] LABS: Red Blood Cells-Urine > 100 SEEN /hpf (0-5); White Blood Cells >100 SEEN /hpf (0-5)
--- NOTE | 2024-06-28 13:20 | PCM.HP.STD ---
HPI - General General Date of Admission: 06/28/24 Date of Service: 06/28/24 Chief Complaint: Persistent diarrhea with dehydration and weakness HPI Narrative GENET [place]INGHAM, is a 79 M who presented to [facility] ED on 06/28/2024 with persistent diarrhea with dehydration and weakness. Patient has history of ESRD on HD MWF, chronic Torres catheter and chronic debility. He lives at home alone but has an aide that comes into the home to help Friday through Friday. Patient was hospitalized here earlier this month for RSV pneumonia. He apparently completed a course of antibiotics for a UTI after discharge, though it is difficult to find documentation of this. Patient states he began to have significant diarrhea about 4 to 5 days ago. Has had mild diffuse abdominal pain with this. Has had mild nausea with antibiotics in the past but never diarrhea like this. Denies any recent sick contacts he is aware of. He has not had much of an appetite but any food or drink has seem to go right through him. Notes he had a significant loose bowel movement after dialysis on Friday that required a lot of cleanup, so he did not go to dialysis today for fear of this happening again. He has become more weak and came in today for further evaluation. In the ED he was afebrile and hemodynamically stable on room air. CBC was unremarkable. BMP showed mildly low sodium and chloride and otherwise elevated creatinine consistent with ESRD. Patient does make several cups of urine per day. Has had chronic Torres catheter for about 2 years that was last replaced about 1.5 weeks ago. Given these findings, hospitalist was contacted for admission. I saw the patient at bedside in the ED. Patient was fatigued appearing but otherwise laying back comfortably in bed and in no acute distress. His last bowel movement was around 6:30 AM this morning. Notably he had a large loose bowel movement shortly after my encounter with him. States he has never had significant persistent diarrhea like this before. Has mild diffuse abdominal pain that he describes as a cramping feeling. No areas of tenderness to palpation or sharp pain. Denies any fevers or chills. No other acute concerns this time. REPLACED BY [facility] Medical History AV fistula End-stage renal disease Hyperlipidemia History of recurrent UTIs Chronic indwelling Torres catheter Urinary retention Prostate cancer Candidiasis, intertrigo Orthostatic hypotension Hypothyroidism Gout Obesity (BMI 30.0-34.9) Home Medications ?Medication ?Instructions ?Recorded ?Last Taken ?Type allopurinol 100 mg tablet 100 mg PO DAILY 06/03/24 06/28/24 History levothyroxine 88 mcg tablet 88 mcg PO DAILY 06/03/24 06/28/24 History midodrine 5 mg tablet 5 mg PO BID 06/03/24 06/28/24 History nystatin 100,000 unit/gram topical 1 applic topical BID PRN skin 06/03/24 Unknown History cream irritation oxybutynin chloride 5 mg tablet 5 mg PO BID 06/03/24 06/28/24 History sertraline 50 mg tablet 50 mg PO DAILY 06/03/24 06/28/24 History sevelamer carbonate 800 mg tablet 800 mg PO TIDCM 06/03/24 06/25/24 History simvastatin 20 mg tablet 20 mg PO QPM 06/03/24 Unknown History Allergy/AdvReac Type Severity Reaction Status Date / Time iodine Allergy Intermediate Hives Verified 06/03/24 15:16 Family History Other Heart disease Hypertension Surgical History History of left hip hemiarthroplasty History of prostate surgery Social History household members: none Smoking Status: Former smoker alcohol intake: never substance use type: does not use additional social history: Ambulates with a wheeled walker at baseline ROS Constitutional Constitutional: Reports fatigue, malaise and weakness; Denies chills or fever(s) Cardiovascular Cardiovascular: Denies chest pain Respiratory/Chest Respiratory/Chest: Denies cough or shortness of breath at rest Gastrointestinal Gastrointestinal: Reports abdominal pain, diarrhea and loose stools; Denies constipation, hematochezia, melena, nausea or vomiting Musculoskeletal Musculoskeletal: Denies arthralgias or myalgias Neurologic Neurologic: Denies dizziness or headache(s) Vital Signs Vital Signs Vital Signs: 06/28/24 10:06 Temperature 97.8 F Temperature Source Oral Pulse Rate 71 Respiratory Rate 18 Blood Pressure 121/67 H Blood Pressure Mean 85 Pulse Ox 93 Oxygen Delivery Method Room Air Weight Weight: 104.2 kg Body Mass Index (BMI) 32.0 Physical Exam Const alert, oriented x3 and no apparent distress Constitutional Narrative: Elderly male, class I obesity, fatigued appearing, otherwise laying back comfortably in bed, conversing normally, in no acute distress. General Appearance: cooperative and comfortable HEENT normocephalic, head/scalp atraumatic, hearing grossly normal bilaterally and nasal mucous membranes and turbinates normal HEENT Narrative: Dry mucous membranes. Eyes PERRL, EOMs intact bilaterally and conjunctivae normal Neck full ROM Chest inspection of chest normal Resp normal respiratory effort, normal air movement, no use of accessory muscles and clear to auscultation bilaterally Cardio regular rate, regular rhythm, no murmurs and peripheral pulses 2+ throughout GI GI Narrative: Mild diffuse tenderness to palpation. Abdomen otherwise soft and nondistended with normal bowel sounds. Back/Spine normal ROM Extremity normal to inspection, full ROM and no pedal edema Skin no rashes or lesions noted Neuro moves all extremities and no focal motor deficits Psych mental status grossly normal Results Lab / Micro Data 06/28/24 10:35 06/28/24 10:35 Labs: Laboratory Results - last 24 hr 06/28/24 10:35: WBC 7.6, RBC 4.26 L, Hgb 12.4 L, Hct 39.1 L, MCV 91.8, MCH 29.1, MCHC 31.7 L, RDW Std Deviation 54.0 H, RDW Coeff of Filomena 16.0 H, Plt Count 259, MPV 10.6, Immature Gran % (Auto) 0.700, Neut % (Auto) 79.1 H, Lymph % (Auto) 9.7 L, [place] % (Auto) 8.8, Eos % (Auto) 1.3, Baso % (Auto) 0.4, Absolute Neuts (auto) 6.0, Absolute Lymphs (auto) 0.74 L, Nucleated RBC % 0, Sodium 132 L, Potassium 4.7, Chloride 95 L, Carbon Dioxide 26.0, Anion Gap 10, BUN 59 H, Creatinine 7.22 H, Estim Creat Clear Calc 10.36, Est GFR (MDRD) Af Amer 10 L, Est GFR (MDRD) Non-Af 8 L, BUN/Creatinine Ratio 8.2 L, Glucose 99, Calcium 9.5, Total Bilirubin 0.80, AST 15, ALT 17, Alkaline Phosphatase 92, Total Protein 7.3, Albumin 2.7 L, Globulin 4.6 H, Albumin/Globulin Ratio 0.6 L 06/28/24 11:38: Urine Color Red, Urine Clarity Turbid, Urine pH 7.0, Ur Specific [place] 1.010, Urine Protein 100 H, Urine Glucose (UA) Normal, Urine Ketones 5 H, Urine Occult Blood 250 H, Urine Nitrite Negative, Urine Bilirubin Negative, Urine Urobilinogen Normal, Ur Leukocyte Esterase 500 H, Urine RBC > 100 SEEN, Urine WBC >100 SEEN, Ur Squamous Epith Cells 0 SEEN, Urine Bacteria 0 SEEN, Urine Mucus 0 SEEN Assessment & Plan Assessment/Plan (1) Enterocolitis: (2) Generalized weakness: (3) ESRD on hemodialysis: PLAN: Plan Patient is a 79-year-old male who presented [facility] ED on 06/28/2024 with persistent diarrhea and dehydration with weakness. 1. Severe diarrhea with dehydration ? Admit under patient status to [facility]. C. difficile negative, stool panel pending. Appeared dry in the ED, gave 1.5 L of IV fluids over several hours. Plan is for HD tomorrow as noted below. Did not obtain CT imaging given fairly benign abdominal findings on exam and contrast allergy. Supportive care for now, follow-up stool panel. 2. Acute on chronic debility ? PT/OT/case management consulted. Patient lives at home, has private aide that comes in 5 days/week. Appreciate therapy recs. 3. ESRD on HD ? Nephrology consulted. On HD MWF, last dialysis session on Sunday 06/25. No urgent dialysis needs on admit. Continue home sevelamer. 4. Chronic Torres catheter in setting of history of BPH/prostate cancer/recurrent UTI/urinary overflow incontinence ? UA with 500 leukocyte esterase but negative nitrites and 0 bacteria. Urine culture pending. Lower concern for UTI at this time, will hold on antibiotics. Torres last exchanged 1.5 weeks ago, no need for exchange while here. Continue home oxybutynin. Chronic medical conditions: ? Class I obesity: BMI 31 on admit. Complicates hospital course, care and prognosis. ? Chronic orthostatic hypotension: Continue home midodrine. ? Hypothyroidism: TSH ordered. Continue home Synthroid. ? Gout: Continue home allopurinol. ? Hyperlipidemia: Continue home simvastatin. ? Depression: Continue home sertraline. ? Intertriginous candidiasis: Continue home topical nystatin as needed. DVT prophylaxis: Heparin subcu CODE STATUS: Full code, verified Expected disposition: TBD Total clinical time spent by myself addressing the patient's medical issues, reviewing all the data, and collaborating with patient's care team: 75 minutes. Charges/Coding Visit Charges Inpatient E&M: 75433 Init Hosp L3
[2024-06-28] MEDS: 0.9% Normal Saline (1000mL) 1,000 ML 250 ML IV (14:36)
[2024-06-28] MEDS: Morphine 4 MG/ML Syringe 2 MG IV (14:39)
[2024-06-28] MEDS: Midodrine HCl 5 MG Tablet PO (16:49)
[2024-06-28] MEDS: Heparin Injection (Vial) 5,000 UNIT/ML VIAL 5000 UNIT SC ×2 (16:49→21:19)
[2024-06-28] MEDS: SEVELAMER CARBONATE 800 MG TABLET PO (16:49)
[2024-06-28] MEDS: Menthol/Lanolin/Calamine/Znox 113 GM Tube 1 APPLIC TOPICAL (21:19)
[2024-06-28] MEDS: Atorvastatin Calcium 10 MG Tablet PO (21:19)
[2024-06-28] MEDS: Oxybutynin 5 MG Tablet PO (21:19)
[2024-06-28] MEDS: Acetaminophen 325 MG Tablet 650 MG PO (21:32)
[2024-06-28] MEDS: MELATONIN 3 MG TABLET PO (21:32)
[2024-06-29] VITALS (12 sets, daily range): BP systolic 106–275; BP diastolic 40–60; PULSE 59–73; RESP 14–16; TEMP 36.3–36.8; O2SAT 92–98; BMI 31.8; BMI 31.7
[2024-06-29] MEDS: Heparin Injection (Vial) 5,000 UNIT/ML VIAL 5000 UNIT SC ×3 (05:56→21:27)
[2024-06-29] MEDS: Acetaminophen 325 MG Tablet 650 MG PO ×2 (05:56→21:26)
[2024-06-29] MEDS: Levothyroxine 88 MCG Tablet PO (05:56)
[2024-06-29 07:56] LABS: Absolute Neutrophil Count 3.1 X10^3/uL (2.0-7.7); Basophil# 0.03 X10^3/uL; Basophil% 0.6 % (0-1); Eosinophils% 4.2 % (0-5); Hematocrit 37.7 % (40-54); Hemoglobin 11.3 g/dL (13.0-16.5); Lymphocyte % 18.7 % (19-41); Mean Corpuscular Hgb 28.2 pg (27.0-32.0); Mean Platelet Vol. 10.9 fl (6.2-12.0); Monocyte# 0.53 X10^3/uL; NRBC Flagged by Analyzer 0 % (0-5); Neutrophil # 3.12 X10^3/uL (2.7-7.7); Neutrophil % 64.9 % (47-70); Platelet Count 258 K/mm3 (150-450); RBC Distribution Width CV 15.9 % (11.6-14.6); RBC Distribution Width SD 55.3 fl (35.1-43.9); Red Blood Count 4.01 M/mm3 (4.6-6.2); White Blood Count 4.8 K/mm3 (4.4-11.0)
--- NOTE | 2024-06-29 08:03 | PN.HOSP_ITS ---
Reason for Visit Reason for Visit: Diarrhea/dehydration/weakness Subjective Subjective Mr. Booth is a 79-year-old white male who presents emergency department and was pronounced on 06/28/2024 with a chief complaint of persistent diarrhea, dehydration, and weakness. Patient lives alone and has an aide that comes in Friday through Friday. He had a hospitalization here earlier in June for RSV pneumonia and received a course of antibiotics for urinary tract infection after discharge. Patient does have a history of end-stage renal disease and on dialysis Friday, Friday, and Friday and has a chronic Torres with chronic debility. He reported that about 4 to 5 days ago he developed significant diarrhea and complained of mild diffuse abdominal pain. He complained of some mild associated nausea but no vomiting. It sounds if his diarrhea is fairly voluminous. He did not go to dialysis on the day of presentation due to the concern of having loss of his bowels at dialysis which happened previously. Vital signs on presentation demonstrated temperature 97.8, heart rate 71, respiratory rate was 18, blood pressure was 121/67 pulse ox was 93% on room air. CBC was overall fairly unremarkable with a stable mild anemia and a left shift with 79.1% neutrophilia. Chemistry panel showed mild hyponatremia with sodium of 132 consistent with not having dialysis and an elevated BUN and creatinine liver functions were unremarkable thyroid was normal. Urine was turbid with leuk esterase greater than 100 WBCs but no bacteria noted. Enteric panel and C. difficile were ordered and both were negative. Patient did require oxygen overnight with a desaturation 89% on room air. Highly suspect he has obstructive sleep apnea as his BMI is 31.9. Neck is also short and thick. The patient states he still having intermittent loose stool but frequency has slowed down. Still considerably more than his baseline however with abdominal cramping. We did discuss checking a oral contrasted CAT scan and he is agreeable to this. He has had no further nausea and able to tolerate his diet well. Just completed dialysis without any issues. Objective Data Objective Data Vital Signs: Vital Signs Temp Pulse Resp BP Pulse Ox O2 Del Method O2 Flow Rate 97.5 F L 65 16 112/57 L 96 Nasal Cannula 2 06/29/24 05:50 06/29/24 05:50 06/29/24 05:50 06/29/24 05:50 06/29/24 05:50 06/29/24 07:32 06/29/24 07:32 Oxygen Flow Rate (L/min) 2 Oxygen Delivery Method Nasal Cannula Weight: 103.4 kg Body Mass Index (BMI) 31.8 Intake & Output: Intake and Output for Last 24 Hours 06/27/24 06/28/24 06/29/24 23:59 23:59 23:59 Intake Total 1500 / 1700 400 / 400 Output Total 650 / 850 500 / 500 Balance 850 / 850 -100 / -100 Lab / Micro Data 06/29/24 06:26 06/29/24 06:26 Labs: Laboratory Results - last 24 hr 06/28/24 10:35: WBC 7.6, RBC 4.26 L, Hgb 12.4 L, Hct 39.1 L, MCV 91.8, MCH 29.1, MCHC 31.7 L, RDW Std Deviation 54.0 H, RDW Coeff of Filomena 16.0 H, Plt Count 259, MPV 10.6, Immature Gran % (Auto) 0.700, Neut % (Auto) 79.1 H, Lymph % (Auto) 9.7 L, [place] % (Auto) 8.8, Eos % (Auto) 1.3, Baso % (Auto) 0.4, Absolute Neuts (auto) 6.0, Absolute Lymphs (auto) 0.74 L, Nucleated RBC % 0, Sodium 132 L, Potassium 4.7, Chloride 95 L, Carbon Dioxide 26.0, Anion Gap 10, BUN 59 H, Creatinine 7.22 H, Estim Creat Clear Calc 10.36, Est GFR (MDRD) Af Amer 10 L, Est GFR (MDRD) Non-Af 8 L, BUN/Creatinine Ratio 8.2 L, Glucose 99, Calcium 9.5, Total Bilirubin 0.80, AST 15, ALT 17, Alkaline Phosphatase 92, Total Protein 7.3, Albumin 2.7 L, Globulin 4.6 H, Albumin/Globulin Ratio 0.6 L, TSH 2.300 06/28/24 11:38: Urine Color Red, Urine Clarity Turbid, Urine pH 7.0, Ur Specific [place] 1.010, Urine Protein 100 H, Urine Glucose (UA) Normal, Urine Ketones 5 H , Urine Occult Blood 250 H, Urine Nitrite Negative, Urine Bilirubin Negative, Urine Urobilinogen Normal, Ur Leukocyte Esterase 500 H, Urine RBC > 100 SEEN, Urine WBC >100 SEEN, Ur Squamous Epith Cells 0 SEEN, Urine Bacteria 0 SEEN, Urine Mucus 0 SEEN Micro: Microbiology 06/28/24 18:30 Stool Enteric Bacteriology - Final 06/28/24 18:30 Stool Clostridioides difficile (PCR) - Final Physical Exam Const alert and oriented x3 Constitutional Narrative: Obese, older, white male, lying in bed, appears comfortable, nontoxic, dialysis nurse at bedside as he is just finished dialysis HEENT head/scalp atraumatic and moist oral mucous membranes HEENT Narrative: Mallampati 3, no thrush Head and Scalp: normocephalic Resp normal respiratory effort, no retractions, no use of accessory muscles and clear to auscultation bilaterally Auscultation: Negative for rales, rhonchi or wheezes Cardio regular rate, regular rhythm, S1 normal heart sound, S2 normal heart sound, no murmurs, no rub, no gallops and no clicks GI soft to palpation GI Narrative: Mild diffuse tenderness, bowel sounds are hyperactive, abdomen is nondistended and soft Extremity Extremity Narrative: Chronic lower extremity edema, 2+, no cyanosis or clubbing Neuro oriented x3, moves all extremities and no focal motor deficits Speech: speech normal Psych affect normal Psych Narrative: Very pleasant, interacts appropriately, eye contact good Assessment & Plan Assessment/Plan (1) Generalized weakness: (2) Abnormal finding on urinalysis: (3) Enterocolitis: (4) Diarrhea: PLAN: Plan Diarrhea secondary to enterocolitis -The patient reported fairly profuse diarrhea prior to presentation -only 1 bowel movement since admission -C. difficile and enteric panel are negative -If diarrhea becomes more voluminous we could start Imodium however with only 1 bowel movement since admission can hold on this for now -Will monitor over the next 24 hours to make sure he is not have any voluminous diarrhea and his p.o. intake is okay Abnormal UA -Urine culture shows gram-negative monisha -Patient on dialysis with end-stage renal disease -Ceftriaxone 2 g x 1 dose then 1 g daily -Follow cultures but hold antibiotics for now Dehydration -Patient received 1-1/2 L of IV fluid in the emergency department -Is dialysis dependent baseline -hold on any further fluids at this time and monitor clinically -Patient is hemodynamically stable Generalized weakness/acute on chronic debility -PT/OT consultation -Social work/case management consultation for assistance with discharge planning ESRD -HD dependent -Typical dialysis is MWF with last dialysis session on Sunday 06/25 -No urgent needs for dialysis on admission -Continue home sevelamer -Nephrology consultation is pending History of BPH/prostate cancer/urinary overflow incontinence -Patient has chronic Torres -Torres was changed 1.5 weeks ago--> -Patient has significant white cells and leuk esterase but no bacteria in urine -Urine culture showing gram-negative monisha at this time a 80-100,000 -Will start ceftriaxone and await finalized cultures -Continue home oxybutynin Chronic orthostatic hypotension -Continue home midodrine Hypothyroidism -TSH is within normal limits -Continue home Synthroid History of gout -Continue home allopurinol Hyperlipidemia -Continue home simvastatin Intertriginous candidiasis -Continue home topical nystatin Depression -continue home sertraline Obesity -BMI is 31.7 -Recommend weight loss -Complicates treatment, prognosis, outcomes DVT prophylaxis -Continue subcu heparin CODE STATUS -Full code Charges/Coding Visit Charges Inpatient E&M: 17342 Subs Hosp L2
[2024-06-29] MEDS: 0.9% Normal Saline 1,000 ML IV.SOLN. 1000 ML OPERA.SITE (08:19)
[2024-06-29] MEDS: PureFlow B 2K Dialysis Soln 1 BAG 6 BAG PF (08:19)
[2024-06-29 08:46] LABS: Anion Gap 10 (5-15); BUN 67 mg/dL (7-18); BUN/Creat Ratio 9.1 RATIO (10-20); Calcium,Total 8.7 mg/dL (8.5-10.1); Chloride 103 mmol/L (98-107); EST Glomerular Filtration Rate 8 mL/min (>60); Est Glom Filt Rate - Afr Amer 9 mL/min (>60); Estimated Creatinine Clearance 9.91 ml/min; Glucose 82 mg/dL (74-106); Sodium Level 138 mmol/L (136-145)
[2024-06-29] MEDS: SEVELAMER CARBONATE 800 MG TABLET PO ×3 (08:48→16:56)
[2024-06-29] MEDS: Midodrine HCl 5 MG Tablet PO ×2 (08:48→16:56)
[2024-06-29] MEDS: Menthol/Lanolin/Calamine/Znox 113 GM Tube 1 APPLIC TOPICAL ×2 (09:59→21:26)
[2024-06-29] MEDS: Allopurinol 100 MG Tablet PO (09:59)
[2024-06-29] MEDS: Sertraline 50 MG Tablet PO (09:59)
[2024-06-29] MEDS: Oxybutynin 5 MG Tablet PO ×2 (09:59→21:27)
--- NOTE | 2024-06-29 11:15 | PCM.CONS.R ---
Assessment & Plan Assessment/Plan (1) ESRD on hemodialysis: PLAN: On hemodialysis Friday, Friday, Friday. Seen on dialysis today. Does not appear volume overloaded. See orders/flowsheets. Will plan for dialysis tomorrow to put him back on Friday schedule. Diarrhea. C. difficile negative. Likely antibiotic associated diarrhea. He says this is better compared to yesterday. HPI Consult Data Date of Consult: 06/29/24 HPI Narrative Reason for Consultation: ESRD HPI Narrative: GENET [place], is a 79 M who presents to the hospital with diarrhea, weakness. Nephrology on consultation in view of ESRD. On hemodialysis Friday, Friday, Friday schedule. He was recently admitted here with pneumonia. Was discharged home. Over the last 3 to 4 days had significant diarrhea. C. difficile negative. Seen on dialysis today. Breathing looks comfortable. [facility] Medical History AV fistula End-stage renal disease Hyperlipidemia History of recurrent UTIs Chronic indwelling Torres catheter Urinary retention Prostate cancer Candidiasis, intertrigo Orthostatic hypotension Hypothyroidism Gout Obesity (BMI 30.0-34.9) Home Medications ?Medication ?Instructions ?Recorded ?Last Taken ?Type allopurinol 100 mg tablet 100 mg PO DAILY 06/03/24 06/28/24 History levothyroxine 88 mcg tablet 88 mcg PO DAILY 06/03/24 06/28/24 History midodrine 5 mg tablet 5 mg PO BID 06/03/24 06/28/24 History nystatin 100,000 unit/gram topical 1 applic topical BID PRN skin 06/03/24 Unknown History cream irritation oxybutynin chloride 5 mg tablet 5 mg PO BID 06/03/24 06/28/24 History sertraline 50 mg tablet 50 mg PO DAILY 06/03/24 06/28/24 History sevelamer carbonate 800 mg tablet 800 mg PO TIDCM 06/03/24 06/25/24 History simvastatin 20 mg tablet 20 mg PO QPM 06/03/24 Unknown History Allergy/AdvReac Type Severity Reaction Status Date / Time iodine Allergy Intermediate Hives Verified 06/03/24 15:16 Family History Other Heart disease Hypertension Surgical History History of left hip hemiarthroplasty History of prostate surgery Social History household members: none Smoking Status: Former smoker alcohol intake: never substance use type: does not use additional social history: Ambulates with a wheeled walker at baseline ROS ROS Narrative Negative except above Physical Exam Narrative Alert awake oriented x 3 no obvious distress no pallor no icterus no JVD s1s2 no murmurs lungs clear abdomen soft no organomegaly no edema no cyanosis Lab / Micro Data 06/29/24 06:26 06/29/24 06:26 Labs: Laboratory Results - last 24 hr 06/28/24 10:35: TSH 2.300 06/28/24 11:38: Urine Color Red, Urine Clarity Turbid, Urine pH 7.0, Ur Specific [place] 1.010, Urine Protein 100 H, Urine Glucose (UA) Normal, Urine Ketones 5 H, Urine Occult Blood 250 H, Urine Nitrite Negative, Urine Bilirubin Negative, Urine Urobilinogen Normal, Ur Leukocyte Esterase 500 H, Urine RBC > 100 SEEN, Urine WBC >100 SEEN, Ur Squamous Epith Cells 0 SEEN, Urine Bacteria 0 SEEN, Urine Mucus 0 SEEN 06/29/24 06:26: WBC 4.8, RBC 4.01 L, Hgb 11.3 L, Hct 37.7 L, MCV 94.0, MCH 28.2, MCHC 30.0 L D, RDW Std Deviation 55.3 H, RDW Coeff of Filomena 15.9 H, Plt Count 258, MPV 10.9, Immature Gran % (Auto) 0.600, Neut % (Auto) 64.9, Lymph % (Auto) 18.7 L, [place] % (Auto) 11.0 H, Eos % (Auto) 4.2, Baso % (Auto) 0.6, Absolute Neuts (auto) 3.1, Absolute Lymphs (auto) 0.90, Nucleated RBC % 0, Sodium 138, Potassium 4.0, Chloride 103, Carbon Dioxide 25.0, Anion Gap 10, BUN 67 H, Creatinine 7.40 H, Estim Creat Clear Calc 9.91, Est GFR (MDRD) Af Amer 9 L, Est GFR (MDRD) Non-Af 8 L, BUN/Creatinine Ratio 9.1 L, Glucose 82, Calcium 8.7 Micro: Microbiology 06/28/24 11:38 Urine Catheter - Catheter Urine Culture - Preliminary Gram negative monisha 06/28/24 18:30 Stool Enteric Bacteriology - Final 06/28/24 18:30 Stool Clostridioides difficile (PCR) - Final
--- NOTE | 2024-06-29 11:20 | CT_ITS ---
PROCEDURE: ABDOMEN/PEL W ORAL CONT ONLY REASON FOR EXAM: End-stage renal disease. Prostate cancer. Diarrhea with dehydration and weakness. TECHNIQUE: Abdomen and pelvis CT with intravenous contrast. IV CONTRAST: Not given. COMPARISON: No relevant prior. FINDINGS: Lung bases: Pleural thickening at the lung bases. Cardiac enlargement. Liver: Unremarkable. Prominent falciform ligament vein. Gallbladder: Unremarkable. Spleen: Unremarkable. Pancreas: Unremarkable. Adrenals: Unremarkable. Kidneys: Bilaterally small kidneys, more prevalent on the left. Marked right hydroureteronephrosis. A few pockets of air are noted in the calices, right kidney. A right nephroureteral stent is present. Left hydroureteronephr osis. Several calcifications in the left kidney. Bladder: Unremarkable. Suspicion of balloon tip Torres catheter. Decompressed urinary bladder. Reproductive Organs: Brachytherapy seeds in the prostate gland Bowel: Scattered diverticula are noted throughout the colon. No signs of diverticulitis Appendix: Normal. Lymph nodes: No suspicious lymph node enlargement. Vasculature: Severe atherosclerotic calcific disease. No aneurysms Peritoneum / Retroperitoneum: No ascites. No free air. Bones: Multilevel spondylosis. Degenerative disc disease at L5-S1. Left hip arthroplasty. Anterior abdominal wall: Bilateral fat containing inguinal hernias. CT/Abdomen/Pel W ORAL Cont Only IMPRESSION: 1. Diverticulosis. Prominent falciform ligament vessel raising concern for po rtal hypertension. Severe atherosclerotic calcific disease. Bilaterally small kidneys and bilateral hydroureteronephrosi s. Right nephroureteral stent. Brachytherapy seeds in the prostate gland. Nonobstructing left nephrolithiasis. Bilateral f at containing inguinal hernias. Other nonacute findings detailed above. One or more dose reduction techniques were used (e.g., Automated exposure contr ol, adjustment of the mA and/or kV according to patient size, use of iterative reconstruction technique). Reading Location: [facility]
--- NOTE | 2024-06-29 11:57 | CASEMGMT ---
Addendum entered by Gissel Sweeney 06/29/24 14:12: Referral sent to [facility] at this time for pt. Received notification of acceptance as they are currently active with pt. Original Note: MELLY SANTACRUZ Readmission Note Previous Admission: 06/05/24-06/06/24 Diagnosis: SOB, SYED DC Disposition: Home with HHC resumed Current Admission: Admitted 06/28/24 Current Diagnosis:diarrhea with dehydration and weakness Pt dc'd from index admission without oxygen and with resumption of [facility]. Pt reports he did take all of his antibiotics and prednisone as well as all other meds as ordered. Pt states he did see his PCP since last hospitalization and has an appt next month again. Pt returned with diarrhea with dehydration and weakness. Pt just worked with therapy. Pt states he is active with [facility] for SN and would like to try again for therapy. He states that the last time it was rejected by insurance. MELLY SANTACRUZ to reorder. Pt does want to continue with [facility] and denies need for a list of other options. Pt has aides M-F from [facility]. Pt goes to dialysis at [facility] at 11am by corbin. Pt with dandre jamison. Pt denies any further homegoing needs but would like all services to resume with the addition of therapy. MELLY SANTACRUZ to follow. DC Plan: Home with HHC resuming.
[2024-06-29] MEDS: Ceftriaxone 2 GM in 0.9% Normal Saline (50mL MB+) 50 ML IV (14:34)
[2024-06-29] MEDS: MELATONIN 3 MG TABLET PO (21:26)
[2024-06-29] MEDS: Atorvastatin Calcium 10 MG Tablet PO (21:26)
[2024-06-30] VITALS (10 sets, daily range): BP systolic 116–248; BP diastolic 50–68; PULSE 64–71; RESP 12–18; TEMP 36.4–36.7; O2SAT 92–96; BMI 31.7
[2024-06-30] MEDS: Levothyroxine 88 MCG Tablet PO (05:51)
[2024-06-30] MEDS: Heparin Injection (Vial) 5,000 UNIT/ML VIAL 5000 UNIT SC ×3 (05:51→21:38)
[2024-06-30] MEDS: Ondansetron 4 MG/2 ML Vial IV (05:57)
[2024-06-30] MEDS: Loperamide 2 MG Capsule PO (05:57)
[2024-06-30] MEDS: 0.9% Saline Lock 10 ML Syringe IV ×2 (05:58→12:23)
[2024-06-30] MEDS: Acetaminophen 325 MG Tablet 650 MG PO (06:00)
[2024-06-30 07:24] LABS: Hematocrit 34.8 % (40-54); Hemoglobin 10.6 g/dL (13.0-16.5); Mean Corp Hgb Conc 30.5 g/dL (32-36); Mean Corpuscular Hgb 28.6 pg (27.0-32.0); Mean Corpuscular Volume 94.1 fL (80-94); Mean Platelet Vol. 10.5 fl (6.2-12.0); Platelet Count 280 K/mm3 (150-450); RBC Distribution Width CV 15.5 % (11.6-14.6); RBC Distribution Width SD 53.6 fl (35.1-43.9); White Blood Count 4.6 K/mm3 (4.4-11.0)
[2024-06-30 07:50] LABS: Anion Gap 10 (5-15); BUN 51 mg/dL (7-18); BUN/Creat Ratio 8.7 RATIO (10-20); Calcium,Total 8.4 mg/dL (8.5-10.1); Chloride 103 mmol/L (98-107); Creatinine, Serum 5.88 mg/dL (0.70-1.30); EST Glomerular Filtration Rate 10 mL/min (>60); Est Glom Filt Rate - Afr Amer 12 mL/min (>60); Estimated Creatinine Clearance 12.44 ml/min; Glucose 87 mg/dL (74-106); Potassium 3.6 mmol/L (3.5-5.1); Sodium Level 138 mmol/L (136-145)
--- NOTE | 2024-06-30 07:52 | NURSING ---
Morning medications okay to give despite dialysis per dry ice machine operator Nate.
[2024-06-30] MEDS: Midodrine HCl 5 MG Tablet PO ×2 (08:22→16:49)
[2024-06-30] MEDS: Allopurinol 100 MG Tablet PO (08:23)
[2024-06-30] MEDS: Menthol/Lanolin/Calamine/Znox 113 GM Tube 1 APPLIC TOPICAL ×2 (08:23→21:39)
[2024-06-30] MEDS: Oxybutynin 5 MG Tablet PO ×2 (08:23→21:39)
[2024-06-30] MEDS: Sertraline 50 MG Tablet PO (08:23)
[2024-06-30] MEDS: SEVELAMER CARBONATE 800 MG TABLET PO ×3 (08:23→16:49)
[2024-06-30] MEDS: Heparin 10,000 UNITS/10 ML Vial 4000 UNITS IV (08:49)
[2024-06-30] MEDS: 0.9% Normal Saline 1,000 ML IV.SOLN. 1000 ML OPERA.SITE (08:50)
[2024-06-30] MEDS: PureFlow B 2K Dialysis Soln 1 BAG 6 BAG PF (08:51)
--- NOTE | 2024-06-30 11:17 | PN.RENAL_ITS ---
Subjective Subjective No new event Objective Data Objective Data Vital Signs: Vital Signs Temp Pulse Resp BP Pulse Ox O2 Del Method O2 Flow Rate 97.9 F 66 14 133/54 H 92 Room Air 2 06/30/24 07:51 06/30/24 10:11 06/30/24 10:11 06/30/24 10:11 06/30/24 07:51 06/30/24 10:11 06/30/24 07:53 Oxygen Flow Rate (L/min) 2 Oxygen Delivery Method Room Air Weight: 102.8 kg Body Mass Index (BMI) 31.7 Intake & Output: Intake and Output for Last 24 Hours 06/28/24 06/29/24 06/30/24 23:59 23:59 23:59 Intake Total 1500 / 1700 450 / 450 Output Total 650 / 850 1600 / 1600 400 / 400 Balance 850 / 850 -1150 / -1150 -400 / -400 Lab / Micro Data 06/30/24 06:42 06/30/24 06:42 Labs: Laboratory Results - last 24 hr 06/28/24 11:38: Urine Color Red, Urine Clarity Turbid, Urine pH 7.0, Ur Specific [place] 1.010, Urine Protein 100 H, Urine Glucose (UA) Normal, Urine Ketones 5 H , Urine Occult Blood 250 H, Urine Nitrite Negative, Urine Bilirubin Negative, Urine Urobilinogen Normal, Ur Leukocyte Esterase 500 H, Urine RBC > 100 SEEN, Urine WBC >100 SEEN, Ur Squamous Epith Cells 0 SEEN, Urine Bacteria 0 SEEN, Urine Mucus 0 SEEN 06/30/24 06:42: WBC 4.6, RBC 3.70 L, Hgb 10.6 L, Hct 34.8 L, MCV 94.1 H, MCH 28.6, MCHC 30.5 L, RDW Std Deviation 53.6 H, RDW Coeff of Filomena 15.5 H, Plt Count 280, MPV 10.5, Sodium 138, Potassium 3.6, Chloride 103, Carbon Dioxide 25.0, Anion Gap 10, BUN 51 H, Creatinine 5.88 H, Estim Creat Clear Calc 12.44, Est GFR (MDRD) Af Amer 12 L, Est GFR (MDRD) Non-Af 10 L, BUN/Creatinine Ratio 8.7 L, Glucose 87, Calcium 8.4 L Micro: Microbiology 06/28/24 11:38 Urine Catheter - Catheter Urine Culture - Preliminary Gram negative monisha Gram negative monisha#2 06/28/24 18:30 Stool Enteric Bacteriology - Final 06/28/24 18:30 Stool Clostridioides difficile (PCR) - Final Radiography Diagnostic Testing: Radiology Impression Abdomen CT 06/29/24 11:20 IMPRESSION: 1. Diverticulosis. Prominent falciform ligament vessel raising concern for portal hypertension. Severe atherosclerotic calcific disease. Bilaterally small kidneys and bilateral hydroureteronephrosis. Right nephroureteral stent. Brachytherapy seeds in the prostate gland. Nonobstructing left nephrolithiasis. Bilateral fat containing inguinal hernias. Other nonacute findings detailed above. One or more dose reduction techniques were used (e.g., Automated exposure control, adjustment of the mA and/or kV according to patient size, use of iterative reconstruction technique). Reading Location: [facility] Physical Exam Narrative Alert awake oriented x 3 no obvious distress no pallor no icterus no JVD s1s2 no murmurs lungs clear abdomen soft no organomegaly no edema no cyanosis Assessment & Plan Assessment/Plan (1) ESRD on hemodialysis: PLAN: On hemodialysis Friday, Friday, Friday. Seen on dialysis today. See orders/flowsheets. Diarrhea. C. difficile negative. Likely antibiotic associated diarrhea.
[2024-06-30] MEDS: Ceftriaxone 1 GM/50 ML BAG IV (12:21)
--- NOTE | 2024-06-30 15:57 | PCM.PN.HOSP ---
Reason for Visit Reason for Visit: Diarrhea/dehydration/weakness Subjective Subjective Patient states he is feeling better today. Stools are still loose but not as voluminous as they were previously. Nausea and vomiting is better. We did discuss that his urine does look to be infected and he is 2 gram-negative organisms growing at this time. Currently on antibiotics with ceftriaxone. Patient is hopeful to go home tomorrow if possible. I did let him know that we would have to wait for his cultures and see how he is doing clinically tomorrow with regards to his diarrhea and his nausea. Objective Data Objective Data Vital Signs: Vital Signs Temp Pulse Resp BP Pulse Ox O2 Del Method O2 Flow Rate 97.6 F L 66 18 131/64 H 96 Room Air 2 06/30/24 12:18 06/30/24 12:18 06/30/24 12:18 06/30/24 12:18 06/30/24 12:18 06/30/24 12:18 06/30/24 07:53 Oxygen Flow Rate (L/min) 2 Oxygen Delivery Method Room Air Weight: 102.8 kg Body Mass Index (BMI) 31.7 Intake & Output: Intake and Output for Last 24 Hours 06/28/24 06/29/24 06/30/24 23:59 23:59 23:59 Intake Total 1500 / 1700 450 / 450 50 / 50 Output Total 650 / 850 1600 / 1600 650 / 650 Balance 850 / 850 -1150 / -1150 -600 / -600 Lab / Micro Data 06/30/24 06:42 06/30/24 06:42 Labs: Laboratory Results - last 24 hr 06/28/24 11:38: Urine Color Red, Urine Clarity Turbid, Urine pH 7.0, Ur Specific [place] 1.010, Urine Protein 100 H, Urine Glucose (UA) Normal, Urine Ketones 5 H, Urine Occult Blood 250 H, Urine Nitrite Negative, Urine Bilirubin Negative, Urine Urobilinogen Normal, Ur Leukocyte Esterase 500 H, Urine RBC > 100 SEEN, Urine WBC >100 SEEN, Ur Squamous Epith Cells 0 SEEN, Urine Bacteria 0 SEEN, Urine Mucus 0 SEEN 06/30/24 06:42: WBC 4.6, RBC 3.70 L, Hgb 10.6 L, Hct 34.8 L, MCV 94.1 H, MCH 28.6, MCHC 30.5 L, RDW Std Deviation 53.6 H, RDW Coeff of Filomena 15.5 H, Plt Count 280, MPV 10.5, Sodium 138, Potassium 3.6, Chloride 103, Carbon Dioxide 25.0, Anion Gap 10, BUN 51 H, Creatinine 5.88 H, Estim Creat Clear Calc 12.44, Est GFR (MDRD) Af Amer 12 L, Est GFR (MDRD) Non-Af 10 L, BUN/Creatinine Ratio 8.7 L, Glucose 87, Calcium 8.4 L Micro: Microbiology 06/28/24 11:38 Urine Catheter - Catheter Urine Culture - Preliminary Gram negative monisha Gram negative monisha#2 06/28/24 18:30 Stool Enteric Bacteriology - Final 06/28/24 18:30 Stool Clostridioides difficile (PCR) - Final Radiography Diagnostic Testing: Radiology Impression Abdomen CT 06/29/24 11:20 IMPRESSION: 1. Diverticulosis. Prominent falciform ligament vessel raising concern for portal hypertension. Severe atherosclerotic calcific disease. Bilaterally small kidneys and bilateral hydroureteronephrosis. Right nephroureteral stent. Brachytherapy seeds in the prostate gland. Nonobstructing left nephrolithiasis. Bilateral fat containing inguinal hernias. Other nonacute findings detailed above. One or more dose reduction techniques were used (e.g., Automated exposure control, adjustment of the mA and/or kV according to patient size, use of iterative reconstruction technique). Reading Location: [facility] Physical Exam Const alert, oriented x3, no apparent distress and well nourished; Negative for average body habitus or healthy appearing Constitutional Narrative: Obese, older, white male, lying in bed, appears comfortable, nontoxic, currently on dialysis with dialysis nurse at bedside General Appearance: cooperative and comfortable HEENT normocephalic, head/scalp atraumatic and hearing grossly normal bilaterally HEENT Narrative: Mallampati 3, no thrush Resp normal respiratory effort, normal air movement, no retractions, no use of accessory muscles and clear to auscultation bilaterally Auscultation: Negative for rales, rhonchi or wheezes Cardio regular rate, regular rhythm, S1 normal heart sound, S2 normal heart sound, no murmurs, no rub, no gallops and no clicks GI normal to inspection, nondistended, normoactive bowel sounds and soft to palpation GI Narrative: Very minimally tender diffusely today but much improved Extremity Extremity Narrative: Chronic lower extremity edema, 2+, no cyanosis or clubbing Neuro oriented x3, moves all extremities and no focal motor deficits Speech: speech normal Psych affect normal Psych Narrative: Very pleasant, interacts appropriately, eye contact good Assessment & Plan Assessment/Plan (1) Generalized weakness: (2) Abnormal finding on urinalysis: (3) Enterocolitis: (4) Diarrhea: PLAN: Plan Diarrhea secondary to enterocolitis -The patient reported fairly profuse diarrhea prior to presentation -Improving -C. difficile and enteric panel are negative -As needed Imodium available -P.o. intake is improving Gram-negative UTI -Urine culture shows gram-negative monisha with 2 different species -Continue ceftriaxone and await finalized cultures -Patient on dialysis with end-stage renal disease Dehydration -Resolved Generalized weakness/acute on chronic debility -PT/OT following -Per discussion with case management plan is for discharge home with home health care resuming -Hopeful for discharge tomorrow ESRD -HD dependent -Typical dialysis is MWF with last dialysis session on Sunday 06/25 -No urgent needs for dialysis on admission -Continue home sevelamer -Nephrology consultation is pending History of BPH/prostate cancer/urinary overflow incontinence -Patient has chronic Torres -Torres was changed 1.5 weeks ago--> patient refusing change here as he has an upcoming appointment with his urologist at which time they plan to discuss suprapubic catheter--> I did discuss with him the importance of letting him know he had a recent urinary tract infection and needing exchange catheter -Continue home oxybutynin Chronic orthostatic hypotension -Continue home midodrine Hypothyroidism -Continue home Synthroid History of gout -Continue home allopurinol Hyperlipidemia -Continue home simvastatin Intertriginous candidiasis -Continue home topical nystatin Depression -continue home sertraline Obesity -BMI is 31.7 -Recommend weight loss -Complicates treatment, prognosis, outcomes DVT prophylaxis -Continue subcu heparin CODE STATUS -Full code Charges/Coding Visit Charges Inpatient E&M: 38811 Subs Hosp L2
[2024-06-30] MEDS: Atorvastatin Calcium 10 MG Tablet PO (21:39)
[2024-07-01 02:51] VITALS: BP 128/61; PULSE 78; RESP 16; TEMP 36.6; O2SAT 94
[2024-07-01] MEDS: Heparin Injection (Vial) 5,000 UNIT/ML VIAL 5000 UNIT SC (05:50)
[2024-07-01] MEDS: Levothyroxine 88 MCG Tablet PO (05:50)
[2024-07-01 06:00] VITALS: BMI 32.2
[2024-07-01 07:24] LABS: Hematocrit 34.8 % (40-54); Hemoglobin 10.3 g/dL (13.0-16.5); Mean Corp Hgb Conc 29.6 g/dL (32-36); Mean Corpuscular Hgb 28.1 pg (27.0-32.0); Mean Corpuscular Volume 95.1 fL (80-94); Mean Platelet Vol. 10.8 fl (6.2-12.0); Platelet Count 301 K/mm3 (150-450); RBC Distribution Width CV 15.7 % (11.6-14.6); RBC Distribution Width SD 54.9 fl (35.1-43.9); Red Blood Count 3.66 M/mm3 (4.6-6.2); White Blood Count 5.1 K/mm3 (4.4-11.0)
[2024-07-01 08:07] LABS: Anion Gap 7 (5-15); BUN 34 mg/dL (7-18); BUN/Creat Ratio 7.6 RATIO (10-20); Calcium,Total 8.4 mg/dL (8.5-10.1); Chloride 105 mmol/L (98-107); Creatinine, Serum 4.48 mg/dL (0.70-1.30); EST Glomerular Filtration Rate 14 mL/min (>60); Est Glom Filt Rate - Afr Amer 16 mL/min (>60); Estimated Creatinine Clearance 16.45 ml/min; Glucose 104 mg/dL (74-106); Potassium 3.9 mmol/L (3.5-5.1); Sodium Level 139 mmol/L (136-145)
[2024-07-01 08:25] VITALS: BP 139/75; PULSE 75; RESP 16; TEMP 36.4; O2SAT 91
[2024-07-01] MEDS: SEVELAMER CARBONATE 800 MG TABLET PO (08:28)
[2024-07-01] MEDS: Allopurinol 100 MG Tablet PO (08:29)
[2024-07-01] MEDS: Menthol/Lanolin/Calamine/Znox 113 GM Tube 1 APPLIC TOPICAL (08:29)
[2024-07-01] MEDS: Oxybutynin 5 MG Tablet PO (08:29)
[2024-07-01] MEDS: Sertraline 50 MG Tablet PO (08:29)
--- NOTE | 2024-07-01 08:42 | NURSING ---
Agatha ARIZA under direction of primary RN
[2024-07-01 09:11] VITALS: O2SAT 94
--- NOTE | 2024-07-01 11:07 | PCM.DC.SUM ---
Providers Date of Admission: 06/28/24 Date of Discharge: 07/01/24 Primary Care Physician: Dr. Ata Hernandez MD Consultations 06/28/24 15:31 Consult: Nephrology Routine Consulting Provider: Jan Abarca Reason for Consult: ESRD on HD EMERGENT Consult: No MD Notified: Yes Date Notified: 06/28/24 Time Notified: 15:40 Method of Notification: Answering Service Reason For Visit: DIARRHEA W/DEHYDRATION AND WEAKNESS Diagnosis Discharge Diagnosis (1) Generalized weakness: Status: Acute Code(s): R53.1 - Weakness (2) Abnormal finding on urinalysis: Status: Acute Code(s): R82.90 - Unspecified abnormal findings in urine (3) Enterocolitis: Status: Acute Code(s): K52.9 - Noninfective gastroenteritis and colitis, unspecified (4) Diarrhea: Status: Acute Code(s): R19.7 - Diarrhea, unspecified Medications at Discharge Home Medications allopurinol 100 mg tablet 100 mg PO DAILY 06/03/24 levothyroxine 88 mcg tablet 88 mcg PO DAILY 06/03/24 midodrine 5 mg tablet 5 mg PO BID 06/03/24 nystatin 100,000 unit/gram topical cream 1 applic topical BID PRN skin irritation 06/03/24 oxybutynin chloride 5 mg tablet 5 mg PO BID 06/03/24 sertraline 50 mg tablet 50 mg PO DAILY 06/03/24 sevelamer carbonate 800 mg tablet 800 mg PO TIDCM 06/03/24 simvastatin 20 mg tablet 20 mg PO QPM 06/03/24 ciprofloxacin HCl 500 mg tablet 500 mg PO Q18H #6 tabs 07/01/24 loperamide 2 mg capsule 2 mg PO TID PRN PRN DIARRHEA #0 caps 07/01/24 Hospital Course Operations None Procedures - (CT abdomen) Summary of Care Provided Minutes Spent on Discharge: 38 Hospital Course: Mr. Booth is a 79-year-old white male who presents emergency department and was pronounced on 06/28/2024 with a chief complaint of persistent diarrhea, dehydration, and weakness. Patient lives alone and has an aide that comes in Friday through Friday. He had a hospitalization here earlier in June for RSV pneumonia and received a course of antibiotics for urinary tract infection after discharge. Patient does have a history of end-stage renal disease and on dialysis Friday, Friday, and Friday and has a chronic Torres with chronic debility. He reported that about 4 to 5 days ago he developed significant diarrhea and complained of mild diffuse abdominal pain. He complained of some mild associated nausea but no vomiting. It sounds if his diarrhea is fairly voluminous. He did not go to dialysis on the day of presentation due to the concern of having loss of his bowels at dialysis which happened previously. Vital signs on presentation demonstrated temperature 97.8, heart rate 71, respiratory rate was 18, blood pressure was 121/67 pulse ox was 93% on room air. CBC was overall fairly unremarkable with a stable mild anemia and a left shift with 79.1% neutrophilia. Chemistry panel showed mild hyponatremia with sodium of 132 consistent with not having dialysis and an elevated BUN and creatinine liver functions were unremarkable thyroid was normal. Urine was turbid with leuk esterase greater than 100 WBCs but no bacteria noted. Enteric panel and C. difficile were ordered and both were negative. Given this, he was started on as needed Imodium. His UA being positive a culture was sent and found positive for Pseudomonas. His antibiotics were transitioned from ceftriaxone to ciprofloxacin 1 tablet 500 mg every 8 hours due to his renal failure at baseline. Slowly his diarrhea improved and he was feeling clinically much better by 07/01/2024. He was anxious to go home and clinically stable to do so. He has ongoing home health care at home so this was reinitiated. We did try to change his Torres however he declined as he states it is very difficult to get in and out and he was following up with his urologist very soon and would let them know. Ultimately, the plan is to proceed with a suprapubic catheter in the attempt to avoid his recurrent infections. Patient was able to be discharged home in stable condition on 07/01/2023. He was instructed to use as needed Imodium at home as long as he had loose stool that was consistent with the current and a prescription for ciprofloxacin to complete a total of a 7-day course was sent to the pharmacy and filled prior to discharge. He is to follow-up with his primary care physician within 1 week and his primary urologist as previously scheduled which she states is on 07/08/2024. Discharge diagnoses: Diarrhea secondary to enterocolitis-resolved Pseudomonas aeruginosa UTI-complicated due to chronic Torres placement and male sex Dehydration-resolved Generalized weakness Acute on chronic debility secondary to the above End-stage renal disease BPH History of prostate cancer Overflow incontinence Chronic orthostatic hypotension Hypothyroidism Gout Hyperlipidemia Intertriginous candidiasis Depression Obesity Physical Exam Narrative Patient states he is feeling much better and anxious to go home. He had some loose stool but no marciano diarrhea. Const alert, oriented x3, no apparent distress and well nourished; Negative for average body habitus or healthy appearing Constitutional Narrative: Obese, older, white male, lying in bed, appears comfortable, nontoxic, sitting up and watching television, asks to go home if possible General Appearance: cooperative, comfortable, well kempt and well developed Exam Limitations: no limitations Nutritional Appearance: obese HEENT normocephalic, head/scalp atraumatic and moist oral mucous membranes HEENT Narrative: Mallampati 3, no thrush Eyes EOMs intact bilaterally and conjunctivae normal Eyes Narrative: No scleral icterus Resp normal respiratory effort, normal air movement, no retractions, no use of accessory muscles and clear to auscultation bilaterally Auscultation: Negative for rales, rhonchi or wheezes Cardio regular rate, regular rhythm, S1 normal heart sound, S2 normal heart sound, no murmurs, no rub, no gallops and no clicks GI normal to inspection, nondistended, normoactive bowel sounds, soft to palpation and non-tender GI Narrative: Tenderness has resolved Extremity Extremity Narrative: Chronic lower extremity edema, trace to 1+, no cyanosis or clubbing Skin skin turgor normal and no jaundice Skin Narrative: Fistula intact with thrill and bruit Neuro oriented x3, moves all extremities and no focal motor deficits Neuro Narrative: Generalized weakness noted but no focal deficits Speech: speech normal Psych mental status grossly normal and affect normal Psych Narrative: Very pleasant, interacts appropriately, eye contact good Weight / BMI Weight Weight: 104.5 kg Body Mass Index (BMI) 32.2 ABG / Lab / Microbiology Data 07/01/24 04:43 07/01/24 04:43 Laboratory: Laboratory Results - last 24 hr 06/28/24 11:38: Urine Color Red, Urine Clarity Turbid, Urine pH 7.0, Ur Specific [place] 1.010, Urine Protein 100 H, Urine Glucose (UA) Normal, Urine Ketones 5 H, Urine Occult Blood 250 H, Urine Nitrite Negative, Urine Bilirubin Negative, Urine Urobilinogen Normal, Ur Leukocyte Esterase 500 H, Urine RBC > 100 SEEN, Urine WBC >100 SEEN, Ur Squamous Epith Cells 0 SEEN, Urine Bacteria 0 SEEN, Urine Mucus 0 SEEN 07/01/24 04:43: WBC 5.1, RBC 3.66 L, Hgb 10.3 L, Hct 34.8 L, MCV 95.1 H, MCH 28.1, MCHC 29.6 L, RDW Std Deviation 54.9 H, RDW Coeff of Filomena 15.7 H, Plt Count 301, MPV 10.8, Sodium 139, Potassium 3.9, Chloride 105, Carbon Dioxide 27.0, Anion Gap 7, BUN 34 H, Creatinine 4.48 H, Estim Creat Clear Calc 16.45, Est GFR (MDRD) Af Amer 16 L, Est GFR (MDRD) Non-Af 14 L, BUN/Creatinine Ratio 7.6 L, Glucose 104, Calcium 8.4 L Microbiology: Microbiology 06/28/24 11:38 Urine Catheter - Catheter Urine Culture - Preliminary Pseudomonas aeruginosa 06/28/24 18:30 Stool Enteric Bacteriology - Final 06/28/24 18:30 Stool Clostridioides difficile (PCR) - Final D/C Instructions Discharge Diet: Low fat / Low cholesterol and Renal Diet Discharge Activity: Return to Normal Activity DC O2, CPAP, BIPAP Needs Home O2 Discharge instructions: No Meaningful Use Info Meaningful Use Meaningful Use Diagnoses (Choose all that apply): None applicable Ischemic Stroke Statin Dosing Therapy Reference: STATIN DOSE THERAPY REFERENCE: * Patients > 75 years receive moderate or high dose statin therapy. * Patients 75 years or YOUNGER should receive HIGH intensity statin dose unless contraindicated. You will be required to document reason for non-treatment if statin daily dose does not meet guidelines. HIGH DOSE STATIN THERAPY DAILY Atorvastatin > than or = to 40 mg Rosuvastatin > than or = to 20 mg Amlodipine + Atorvastatin > than or = to 2.5/40 mg Ezetimibe + Simvastatin 10/80 mg Simvastatin 80mg Discharge Plan Admission Admit Date/Time: 06/28/24 13:32 Primary Reason for Your Visit: Diarrhea/Dehydration/Weakness Attending Provider: Elana Degroot Primary Care Provider: Ata Hernandez Consulting Providers: Jan Abarca; Pranay Beck Instructions Additional Instructions / Restrictions: 1. You were found to have a Pseudomonas urinary tract infection for which we treated you with ciprofloxacin for 7 days. 2. Please let your urologist know that we were not able to exchange her Torrse catheter while you had an infection and discussed with him the need for catheter change and follow-up with him as previously directed 3. Your diarrhea was found to be noninfectious it is okay to use Imodium as needed at home as noted below Discharge Orders/Prescriptions Prescriptions: New ciprofloxacin HCl 500 mg Tablet 500 mg PO Q18H Qty: 6 0RF loperamide 2 mg Capsule 2 mg PO TID PRN PRN (Reason: DIARRHEA) Qty: 0 0RF Continued midodrine 5 mg tablet 5 mg PO BID levothyroxine 88 mcg tablet 88 mcg PO DAILY nystatin 100,000 unit/gram cream 1 applic topical BID PRN (Reason: skin irritation) oxybutynin chloride 5 mg tablet 5 mg PO BID sevelamer carbonate 800 mg tablet 800 mg PO TIDCM Patient Comments: PT TAKES WITH MEALS,HASNT EATEN SINCE FRIDAY allopurinol 100 mg tablet 100 mg PO DAILY simvastatin 20 mg tablet 20 mg PO QPM sertraline 50 mg tablet 50 mg PO DAILY Referrals / Follow Up: Ata Hernandez MD [Primary Care Provider] - In 1 Week Disposition Disposition (needs filled in before D/C Order can be placed): Home Health Service Charges/Coding Visit Charges Inpatient E&M: 07517 Disch Hosp >30min
--- NOTE | 2024-07-01 11:33 | PCM.PN.REN ---
Subjective Subjective No new complaints today. No nausea or vomiting. Objective Data Objective Data Vital Signs: Vital Signs Temp Pulse Resp BP Pulse Ox O2 Del Method O2 Flow Rate 97.5 F L 75 16 139/75 H 94 Nasal Cannula 2 07/01/24 08:25 07/01/24 08:25 07/01/24 08:25 07/01/24 08:25 07/01/24 09:11 07/01/24 09:11 07/01/24 09:11 Oxygen Flow Rate (L/min) 2 Oxygen Delivery Method Nasal Cannula Weight: 104.5 kg Body Mass Index (BMI) 32.2 Intake & Output: Intake and Output for Last 24 Hours 06/29/24 06/30/24 07/01/24 23:59 23:59 23:59 Intake Total 450 / 450 50 / 50 Output Total 1600 / 1600 900 / 1250 750 / 750 Balance -1150 / -1150 -850 / -1200 -750 / -750 Lab / Micro Data 07/01/24 04:43 07/01/24 04:43 Labs: Laboratory Results - last 24 hr 06/28/24 11:38: Urine Color Red, Urine Clarity Turbid, Urine pH 7.0, Ur Specific [place] 1.010, Urine Protein 100 H, Urine Glucose (UA) Normal, Urine Ketones 5 H, Urine Occult Blood 250 H, Urine Nitrite Negative, Urine Bilirubin Negative, Urine Urobilinogen Normal, Ur Leukocyte Esterase 500 H, Urine RBC > 100 SEEN, Urine WBC >100 SEEN, Ur Squamous Epith Cells 0 SEEN, Urine Bacteria 0 SEEN, Urine Mucus 0 SEEN 07/01/24 04:43: WBC 5.1, RBC 3.66 L, Hgb 10.3 L, Hct 34.8 L, MCV 95.1 H, MCH 28.1, MCHC 29.6 L, RDW Std Deviation 54.9 H, RDW Coeff of Filomena 15.7 H, Plt Count 301, MPV 10.8, Sodium 139, Potassium 3.9, Chloride 105, Carbon Dioxide 27.0, Anion Gap 7, BUN 34 H, Creatinine 4.48 H, Estim Creat Clear Calc 16.45, Est GFR (MDRD) Af Amer 16 L, Est GFR (MDRD) Non-Af 14 L, BUN/Creatinine Ratio 7.6 L, Glucose 104, Calcium 8.4 L Micro: Microbiology 06/28/24 11:38 Urine Catheter - Catheter Urine Culture - Preliminary Pseudomonas aeruginosa 06/28/24 18:30 Stool Enteric Bacteriology - Final 06/28/24 18:30 Stool Clostridioides difficile (PCR) - Final Physical Exam Narrative Alert awake oriented x 3 no obvious distress no pallor no icterus no JVD s1s2 no murmurs lungs clear abdomen soft no organomegaly no edema no cyanosis Assessment & Plan Assessment/Plan (1) ESRD on hemodialysis: PLAN: On hemodialysis Friday, Friday, Friday. Last dialysis yesterday. Uneventful. Feels well. Potentially discharge today. Diarrhea. C. difficile negative. Likely antibiotic associated diarrhea.
--- NOTE | 2024-07-01 11:36 | CASEMGMT ---
DC summary sent via [employer] to [facility] at this time. Pt denies any further needs upon homegoing.
[2024-07-01] MEDS: Ciprofloxacin 500 MG Tablet PO (11:38)
[2024-07-01 13:25] VITALS: BP 133/61; PULSE 81; RESP 18; TEMP 36.6; O2SAT 94
== END 2024-07-01 15:30 | disposition home health service (06) | DRG 698 ==
LOC: ED 13:28 → MS3 06-29 06:49
PROVIDERS: Admitting Provider Hospitalist; Emergency Provider Emergency Medicine; Visit Provider Internal Medicine
DX: K52.9 Noninfective gastroenteritis and colitis, unspecified (principal); N18.6 End stage renal disease; T83.511A Infection and inflammatory reaction due to indwelling urethral catheter, initial encounter; E87.1 Hypo-osmolality and hyponatremia; D64.9 Anemia, unspecified; B96.5 Pseudomonas (aeruginosa) (mallei) (pseudomallei) as the cause of diseases classified elsewhere; B37.2 Candidiasis of skin and nail; Z99.2 Dependence on renal dialysis; E03.9 Hypothyroidism, unspecified; F32.A Depression, unspecified; Z68.31 Body mass index [BMI] 31.0-31.9, adult; I95.1 Orthostatic hypotension; E78.5 Hyperlipidemia, unspecified; M10.9 Gout, unspecified; N39.0 Urinary tract infection, site not specified; N39.490 Overflow incontinence; E66.811 Obesity, class 1; Z79.899 Other long term (current) drug therapy; Z87.891 Personal history of nicotine dependence; X58.XXXA Exposure to other specified factors, initial encounter; Z79.890 Hormone replacement therapy; E86.0 Dehydration; N40.1 Benign prostatic hyperplasia with lower urinary tract symptoms
CPT/HCPCS: 36415; 74176; 80048; 80053; 81001; 84443; 85025; 85027; 87077; 87086; 87088; 87186; 87493; 87506; 90937; 94668; 96361; 96365; 96366; 96372; 96375; 96376; 97162; 97166; 97530; 97535; 99221; 99285; A4216; G0257; G0378; J0696; J2405

== ENCOUNTER 2024-07-14 10:05 | Observation (INO) | payer MEDICARE, MEDICAID, SELFPAY ==
[2024-07-14] VITALS (13 sets, daily range): BP systolic 117–148; BP diastolic 53–69; PULSE 77–86; RESP 14–27; TEMP 36.5–36.7; O2SAT 92–98; BMI 32.1; BMI 33.1
--- NOTE | 2024-07-14 10:28 | EKG12_ITS ---
Test Reason : Blood Pressure : */* mmHG Vent. Rate : 80 BPM Atrial Rate : 80 BPM P-R Int : 210 ms QRS Dur : 94 ms QT Int : 390 ms P-R-T Axes : -14 60 27 degrees QTcB Int : 449 ms Sinus rhythm with 1st degree A-V block Low voltage QRS Borderline ECG Confirmed by DEBBIE WEEKS, LORA ([id number]), business editor KETAN PRYOR ([id number]) on 07/16/2024 12:55:37 PM Referred By: GORDON Confirmed By: LORA LEWIS MD
--- NOTE | 2024-07-14 10:30 | ED.VIS.DYS ---
HPI History of Present Illness Chief Complaint: Shortness of Breath Narrative Narrative: 79-year-old male past medical history of end-stage renal disease, gets dialysis every Friday and Friday presents with cough, shortness of breath that he has had for the last few days. He relates history that a few weeks ago, he was seen in the emergency department and diagnosed with RSV and pneumonia. That cleared up, but on Friday, he started having a runny nose and states it went straight to his chest. He has been up all night coughing, and spitting up clear mucus. He states he does not usually surmount a fever. He was also diagnosed with a urinary tract infection a few weeks ago, but does not think he has 1 now because he is not having any problems. He is concerned because of the shortness of breath and cough and congestion in his chest. He states that his home health aide did not think he should go to dialysis today because he should not infect everyone. [facility] Medical History ESRD on hemodialysis AV fistula End-stage renal disease Hyperlipidemia History of recurrent UTIs Chronic indwelling Torres catheter Urinary retention Prostate cancer Candidiasis, intertrigo Orthostatic hypotension Hypothyroidism Gout Obesity (BMI 30.0-34.9) Home Medications ?Medication ?Instructions ?Recorded ?Last Taken ?Type allopurinol 100 mg tablet 100 mg PO DAILY 06/03/24 06/28/24 History levothyroxine 88 mcg tablet 88 mcg PO DAILY 06/03/24 06/28/24 History midodrine 5 mg tablet 5 mg PO BID 06/03/24 06/28/24 History nystatin 100,000 unit/gram topical 1 applic topical BID PRN skin 06/03/24 Unknown History cream irritation oxybutynin chloride 5 mg tablet 5 mg PO BID 06/03/24 06/28/24 History sertraline 50 mg tablet 50 mg PO DAILY 06/03/24 06/28/24 History sevelamer carbonate 800 mg tablet 800 mg PO TIDCM 06/03/24 06/25/24 History simvastatin 20 mg tablet 20 mg PO QPM 06/03/24 Unknown History ciprofloxacin HCl 500 mg tablet 500 mg PO Q18H #6 tabs 07/01/24 Unknown Rx loperamide 2 mg capsule 2 mg PO TID PRN PRN DIARRHEA #0 07/01/24 Unknown Rx caps Allergy/AdvReac Type Severity Reaction Status Date / Time iodine Allergy Intermediate Hives Verified 06/03/24 15:16 Family History Other Heart disease Hypertension Surgical History History of left hip hemiarthroplasty History of prostate surgery Social History household members: none Smoking Status: Former smoker alcohol intake: never substance use type: does not use additional social history: Ambulates with a wheeled walker at baseline ROS ROS ED ROS Narrative Constitutional: No fever, no chills. HEENT: No sore throat. No neck pain. Positive rhinorrhea. Cardiovascular: No chest pain. No palpitations. No pedal edema. Respiratory: Positive cough, positive shortness of breath. Abdominal: No abdominal pain. No nausea. No vomiting. Genitourinary: No dysuria. No hematuria. Musculoskeletal: No myalgias. No arthralgias. EXAM Physical Exam Narrative Exam Narrative: Afebrile. Vital signs noted. Nontoxic-appearing. HEENT examination shows PERRL, EOMI. Neck soft and supple without meningismus. Positive rhonchi bilateral lung duarte with occasional expiratory wheezing. Abdomen soft nontender with normoactive bowel sounds. Neurological examination shows him to be awake, and alert, and oriented. Const Vital Signs: 07/14/24 10:07 07/14/24 10:13 07/14/24 10:32 Temperature 97.8 F Temperature Source Temporal Pulse Rate 85 Respiratory Rate 16 Respiratory Effort Respiratory Pattern Blood Pressure 130/69 H Blood Pressure Mean 89 Pulse Ox 98 96 Oxygen Delivery Method Nasal Cannula Room Air Nasal Cannula Oxygen Flow Rate (L/min) 2 07/14/24 10:35 07/14/24 10:48 07/14/24 11:13 Temperature 97.8 F Temperature Source Temporal Pulse Rate 78 79 Respiratory Rate 18 19 H Respiratory Effort Short of Breath Respiratory Pattern Normal Blood Pressure 125/66 H Blood Pressure Mean 85 Pulse Ox 97 Oxygen Delivery Method Nasal Cannula Room Air Oxygen Flow Rate (L/min) 2 07/14/24 12:00 Temperature 98.1 F Temperature Source Temporal Pulse Rate 78 Respiratory Rate 27 H Respiratory Effort Respiratory Pattern Blood Pressure 123/56 H Blood Pressure Mean 78 Pulse Ox 93 Oxygen Delivery Method Nasal Cannula Oxygen Flow Rate (L/min) 2 MDM MDM MDM Narrative Medical decision making narrative: Differential diagnosis does include fluid overload versus bronchitis versus pneumonia. I have very low suspicion for pneumothorax because the history and physical does not support this. Comprehensive workup was pursued. He was given a DuoNeb aerosolized treatment. Will check a CBC and electrolytes and reswab him for COVID, influenza, and RSV. I reviewed his laboratory work and he has normal white count of 6.5 with hemoglobin stable at 11.3, platelet count normal at 191. Sodium slightly low at 135 but potassium normal at 4.7 with BUN of 44 and creatinine 5.12 consistent with end-stage renal disease. Glucose probably elevated at 93. Chest x-ray in 1 view interpreted by myself independently shows no consolidation or pneumothorax, no pneumonia. I reviewed the radiology report which confirms my independent interpretation. Respiratory swab is positive for influenza A. He will be given albuterol MDI to use at home. He had received a nebulizer treatment here. At this point in time, he is outside the window for treatment with Tamiflu. Treatment be symptomatic. Although he missed dialysis today, I do not see the need for emergent dialysis or admission currently. I stressed the importance of him attending dialysis on Friday, 2 days from now. Return instructions to the emergency department were reviewed. Disposition is discharged home in stable condition. History & Record Review Discussion w/independent historian: Patient Lab Data Attestation: I reviewed the patient's lab results. Labs: Laboratory Results - last 24 hr 07/14/24 10:35 WBC 6.5 RBC 3.91 L Hgb 11.3 L Hct 37.0 L MCV 94.6 H MCH 28.9 MCHC 30.5 L RDW Std Deviation 58.8 H RDW Coeff of Filomena 17.0 H Plt Count 191 MPV 10.9 Immature Gran % (Auto) 0.600 Neut % (Auto) 72.5 H Lymph % (Auto) 13.1 L [place] % (Auto) 11.7 H Eos % (Auto) 1.2 Baso % (Auto) 0.9 Absolute Neuts (auto) 4.7 Absolute Lymphs (auto) 0.85 Nucleated RBC % 0 Sodium 135 L Potassium 4.7 Chloride 100 Carbon Dioxide 28.0 Anion Gap 7 BUN 44 H Creatinine 5.12 H Estim Creat Clear Calc 14.21 Est GFR (MDRD) Af Amer 14 L Est GFR (MDRD) Non-Af 12 L BUN/Creatinine Ratio 8.6 L Glucose 93 Calcium 8.9 Radiography Chest X-Ray - ED: Read by ED Physician and Read by Radiologist Diagnostic Testing: Clinical Impression(s) from Imaging Studies Chest X-Ray 07/14/24 10:40 IMPRESSION: Stable appearance of chronic lung changes. Stable blunting of the left costophrenic angle. No definite pleural fluid collection is noted. No pneumothorax is seen. No new or worsened pneumonic process is evident. The cardiomediastinal silhouette is unchanged. Reading Location: [address] Discharge Plan Triage Chief Complaint: Shortness of Breath ED Provider: Quinn Waddell Dx/Rx/DC Orders Clinical Impression: Influenza A, End-stage renal disease, SOB (shortness of breath) Instructions: ED Influenza (Adult) Prescriptions: No Action midodrine 5 mg tablet 5 mg PO BID levothyroxine 88 mcg tablet 88 mcg PO DAILY nystatin 100,000 unit/gram cream 1 applic topical BID PRN (Reason: skin irritation) oxybutynin chloride 5 mg tablet 5 mg PO BID sevelamer carbonate 800 mg tablet 800 mg PO TIDCM Patient Comments: PT TAKES WITH MEALS,HASNT EATEN SINCE FRIDAY allopurinol 100 mg tablet 100 mg PO DAILY simvastatin 20 mg tablet 20 mg PO QPM sertraline 50 mg tablet 50 mg PO DAILY ciprofloxacin HCl 500 mg Tablet 500 mg PO Q18H Qty: 6 0RF loperamide 2 mg Capsule 2 mg PO TID PRN PRN (Reason: DIARRHEA) Qty: 0 0RF Primary Care Provider: Ata Hernandez Referrals: Ata Hernandez MD [Primary Care Provider] - 3-5 Days if not improving Activity Restrictions/Additional Instructions: Go to dialysis on Friday as scheduled. Return with increasing shortness of breath, new or worsening symptoms. Print Language: Tajik Disposition Disposition: Home, Self Care
--- NOTE | 2024-07-14 10:40 | RAD_ITS ---
PROCEDURE: CHEST 1 VIEW (PORTABLE) REASON FOR EXAM: Cough and shortness of breath. TECHNIQUE: Frontal view of the chest. COMPARISON: Chest x-ray of 06/03/2024. RAD/Chest 1 View (Portable) IMPRESSION: Stable appearance of chronic lung changes. Stable blunting of the left costophrenic angle. No definite pleural fluid dimitri ection is noted. No pneumothorax is seen. No new or worsened pneumonic process is evident. The cardiomediastinal silhouette is unchanged. Reading Location: [id number]
[2024-07-14 10:43] LABS: Absolute Lymphocyte Count 0.85 X10^3/uL (0.83-4.51); Absolute Neutrophil Count 4.7 X10^3/uL (2.0-7.7); Basophil# 0.06 X10^3/uL; Basophil% 0.9 % (0-1); Eosinophil# 0.08 X10^3/uL; Eosinophils% 1.2 % (0-5); Hemoglobin 11.3 g/dL (13.0-16.5); Lymphocyte # 0.85 X10^3/ul (0.83-4.51); Lymphocyte % 13.1 % (19-41); Mean Corp Hgb Conc 30.5 g/dL (32-36); Mean Corpuscular Hgb 28.9 pg (27.0-32.0); Mean Corpuscular Volume 94.6 fL (80-94); Mean Platelet Vol. 10.9 fl (6.2-12.0); Monocyte# 0.76 X10^3/uL; Monocyte% 11.7 % (0-10); NRBC Flagged by Analyzer 0 % (0-5); Neutrophil # 4.71 X10^3/uL (2.7-7.7); Neutrophil % 72.5 % (47-70); Platelet Count 191 K/mm3 (150-450); RBC Distribution Width SD 58.8 fl (35.1-43.9); Red Blood Count 3.91 M/mm3 (4.6-6.2); White Blood Count 6.5 K/mm3 (4.4-11.0)
[2024-07-14] MEDS: Ipratropium/Albuterol Sulfate 3 ML AMPUL.NEB INHALATION ×3 (10:47→23:45)
[2024-07-14 11:04] LABS: Anion Gap 7 (5-15); BUN 44 mg/dL (7-18); BUN/Creat Ratio 8.6 RATIO (10-20); Calcium,Total 8.9 mg/dL (8.5-10.1); Chloride 100 mmol/L (98-107); Creatinine, Serum 5.12 mg/dL (0.70-1.30); EST Glomerular Filtration Rate 12 mL/min (>60); Est Glom Filt Rate - Afr Amer 14 mL/min (>60); Estimated Creatinine Clearance 14.21 ml/min; Glucose 93 mg/dL (74-106); Potassium 4.7 mmol/L (3.5-5.1); Sodium Level 135 mmol/L (136-145)
[2024-07-14] MEDS: Oseltamivir Phosphate 75 MG Capsule PO (14:13)
--- NOTE | 2024-07-14 14:37 | HP.PCM.HOS_ITS ---
HPI - General General Date of Admission: 07/14/24 Date of Service: 07/14/24 Chief Complaint: Shortness of breath HPI Narrative GENET BIRMINGHAM, is a 79 M who presented to the emergency department at [facility] on 07/14/2024 with chief complaint of shortness of breath. Symptoms started on Friday. He did have a recent admission here in late June for urinary tract infection and RSV pneumonia. He stated those symptoms cleared up but then on Friday he started having a runny nose and then began coughing. He reported he had been up all night coughing and spitting up clear mucus. He has not had purulent appearance to his mucous and has not had any fevers but has had some myalgias and generalized fatigue with decreased p.o. intake. She had a bit of nausea but no vomiting. Denies diarrhea. He did not go to dialysis today because his home health aide felt that he should not expose anybody else to what ever he had going on. His last dialysis was Friday. He follows with Dr. Abarca. Vital signs on presentation showed temperature of 97.8, respiratory rate 16, pulse ox was 85, blood pressure was 130/69 and pulse ox is 98% on 2 L nasal cannula. CBC is unremarkable other than a chronic stable anemia. He does have a monocytosis with an 11.7% monocyte count. Chemistry panel shows mild hyponatremia sodium 135, BUN is 44 with a serum creatinine of 5.2 which is his baseline. Chest x-ray shows no acute processes. Influenza A was positive. Given his hypoxemia, which is persistent at rest, patient will be admitted to the hospital and treated with Tamiflu as well as with supportive care for his influenza A infection. [facility] Medical History Dialysis patient Kidney disease Hepatitis Former smoker Hypertension ESRD on hemodialysis AV fistula End-stage renal disease Hyperlipidemia History of recurrent UTIs Chronic indwelling Torres catheter Urinary retention Prostate cancer Candidiasis, intertrigo Orthostatic hypotension Hypothyroidism Gout Obesity (BMI 30.0-34.9) Home Medications ?Medication ?Instructions ?Recorded ?Last Taken ?Type allopurinol 100 mg tablet 100 mg PO DAILY 06/03/2405/26 History levothyroxine 88 mcg tablet 88 mcg PO DAILY 06/03/24 0 07/14/24 History midodrine 5 mg tablet 5 mg PO BID 06/03/24 5 History nystatin 100,000 unit/gram topical 1 applic topical BI D PRN skin 06/03/24 Unknown History cream irritation oxybutynin chloride 5 mg tablet 5 mg PO BID 06/03/24 0 07/14/24 History sertraline 50 mg tablet 50 mg PO DAILY 06/03/2407/03 History sevelamer carbonate 800 mg tablet 800 mg PO TIDCM 07/2707/14/24 History simvastatin 20 mg tablet 20 mg PO QPM 06/03/24 History Allergy/AdvReac Type Severity Reaction Status Date / Time iodine Allergy Intermediate Hives Verified 06/03/24 15:16 Family History Other Heart disease Hypertension Surgical History History of left hip hemiarthroplasty History of prostate surgery Social History household members: none Smoking Status: Former smoker alcohol intake: never substance use type: does not use additional social history: Ambulates with a wheeled walker at baseline ROS Constitutional Constitutional: Reports anorexia, chills, fatigue, malaise and weakness; Denies change in weight, fever(s), night sweats or other Eyes Eyes: Denies blurry vision, change in eye color, change in vision, discharge from eye(s), double vision, erythema, eye pain, loss of vision or other ENT HEENT: Reports nasal congestion and nasal discharge; Denies abnormal hearing, dysphagia, ear pain, epistaxis, headache(s), hearing loss, post nasal drip, sinus pressure, sore throat or other Cardiovascular Cardiovascular: Reports dyspnea on exertion; Denies chest pain, claudication, edema, lightheadedness, orthopnea, palpitations, paroxysmal nocturnal dyspnea, rapid heart rate, syncope or other Respiratory/Chest Respiratory/Chest: Reports cough, dyspnea, shortness of breath at rest and shortness of breath with exertion; Denies excessive phlegm production, hemoptysis, productive cough, wheezing or other Gastrointestinal Gastrointestinal: Reports nausea; Denies abdominal pain, coffee ground emesis, constipation, diarrhea, dyspepsia, hematemesis, hematochezia, loose stools, melena, vomiting or other Genitourinary Genitourinary: Denies burning urination, difficulty urinating, dysuria, hematuria, nocturia, urinary frequency, urinary hesitancy, urinary incontinence, urinary urgency or other Musculoskeletal Musculoskeletal: Reports myalgias; Denies arthralgias, back pain, joint pain, joint stiffness, joint swelling, neck pain or other Neurologic Neurologic: Denies abnormal gait, abnormal speech, confusion, disequilibrium, dizziness, focal weakness, headache(s), numbness, paresthesias, seizure-like activity, seizures, syncope, tingling, tremor(s) or other Psychiatric Psychiatric: Denies anxiety, depression, homicidal ideation, suicidal ideation or other Endocrine Endocrinology: Denies change in body appearance, cold intolerance, excessive sweating, heat intolerance, polydipsia, polyuria or other Hematologic/Lymphatic Hematologic/Lymphatic: Denies anemia, easy bleeding, easy bruising, lymphadenopathy or other Allergic/Immunologic Allergic/Immunologic: Denies rhinitis, hives, eczemia, asthma or other Vital Signs Vital Signs Vital Signs: 07/14/24 10:07 07/14/24 10:13 07/14/24 10:32 Temperature 97.8 F Temperature Source Temporal Pulse Rate 85 Respiratory Rate 16 Respiratory Effort Respiratory Pattern Blood Pressure 130/69 H Blood Pressure Mean 89 Pulse Ox 98 96 Oxygen Delivery Method Nasal Cannula Room Air Nasal Cannula Oxygen Flow Rate (L/min) 2 07/14/24 10:35 07/14/24 10:48 07/14/24 11:13 Temperature 97.8 F Temperature Source Temporal Pulse Rate 78 79 Respiratory Rate 18 19 H Respiratory Effort Short of Breath Respiratory Pattern Normal Blood Pressure 125/66 H Blood Pressure Mean 85 Pulse Ox 97 Oxygen Delivery Method Nasal Cannula Room Air Oxygen Flow Rate (L/min) 2 07/14/24 12:00 07/14/24 13:00 07/14/24 14:06 Temperature 98.1 F 97.7 F L Temperature Source Temporal Pulse Rate 78 78 81 Respiratory Rate 27 H 26 H Respiratory Effort Respiratory Pattern Blood Pressure 123/56 H 117/53 L 118/59 L Blood Pressure Mean 78 74 78 Pulse Ox 93 94 96 Oxygen Delivery Method Nasal Cannula Nasal Cannula Oxygen Flow Rate (L/min) 2 2 Weight Weight: 101.786 kg Body Mass Index (BMI) 32.1 Physical Exam Const alert, oriented x3, no apparent distress and well nourished; Negative for average body habitus or healthy appearing Constitutional Narrative: Older, obese, white male, lying in bed, appears ill but not toxic, comfortable at this time, pleasant General Appearance: cooperative HEENT normocephalic, head/scalp atraumatic, hearing grossly normal bilaterally and moist oral mucous membranes HEENT Narrative: Mallampati 3, no thrush Resp normal respiratory effort, no retractions, no use of accessory muscles and No clear to auscultation bilaterally Resp Narrative: Coarse breath sounds with scattered end expiratory wheezes Auscultation: wheezes; Negative for crackles or rhonchi Cardio regular rate, regular rhythm, S1 normal heart sound, S2 normal heart sound, no murmurs, no rub, no gallops and no clicks GI normal to inspection, nondistended, normoactive bowel sounds, soft to palpation and non-tender Extremity no clubbing, cyanosis or edema Extremity Narrative: Pedal and radial pulses are 2+ Neuro oriented x3 and moves all extremities Speech: speech normal Psych affect normal Psych Narrative: Eye contact is good and patient interacts appropriately Results Lab / Micro Data 07/14/24 10:35 07/14/24 10:35 Labs: Laboratory Results - last 24 hr 07/14/24 10:35: WBC 6.5, RBC 3.91 L, Hgb 11.3 L, Hct 37.0 L, MCV 94.6 H, MCH 28.9, MCHC 30.5 L, RDW Std Deviation 58.8 H, RDW Coeff of Filomena 17.0 H, Plt Count 191, MPV 10.9, Immature Gran % (Auto) 0.600, Neut % (Auto) 72.5 H, Lymph % (Auto) 13.1 L, [place] % (Auto) 11.7 H, Eos % (Auto) 1.2, Baso % (Auto) 0.9, Absolute Neuts (auto) 4.7, Absolute Lymphs (auto) 0.85, Nucleated RBC % 0, S odium 135 L, Potassium 4.7, Chloride 100, Carbon Dioxide 28.0, Anion Gap 7, BUN 44 H, Creatinine 5.12 H, Estim Creat Clear Calc 14.21, Est GFR (MDRD) Af Amer 14 L, Est GFR (MDRD) Non-Af 12 L, BUN/Creatinine Ratio 8.6 L, Glucose 93, Calcium 8.9 Micro: Microbiology 07/14/24 10:35 Mucosa - Nose SARS-CoV-2, Influenza & RSV (PCR) - Final Influenzae A Imaging Radiology Impression Chest X-Ray 07/14/24 10:40 IMPRESSION: Stable appearance of chronic lung changes. Stable blunting of the left costophrenic angle. No definite pleural fluid collection is noted. No pneumothorax is seen. No new or worsened pneumonic process is evident. The cardiomediastinal silhouette is unchanged. Reading Location: [address] Assessment & Plan Assessment/Plan (1) Hypoxia: (2) SOB (shortness of breath): (3) Influenza A: PLAN: Plan Acute hypoxia secondary to influenza A infection -Patient still within the window for Tamiflu and his symptoms started on Friday -Initial dose started the emergency department with ongoing doses being 30 mg on dialysis days following dialysis for 5 days -Mucinex 1200 mg p.o. twice daily -Scheduled and as needed nebulizers -Solu-Medrol 40 every 8 -Incentive spirometer and Acapella as ordered -Encourage mobility and out of bed -Low suspicion for superimposed bacterial infection at this time but will monitor closely Generalized weakness/acute on chronic debility -PT/OT following -CM/SW consultation--> ? C at D/C--> has been enrolled previously ESRD -HD dependent -Typical dialysis is MWF with last dialysis session -->missed today -No urgent needs for dialysis on admission -Continue home sevelamer -Nephrology consultation --> discussed with Dr. Abarca Chronic anemia secondary to renal disease -Anemia is mild with baseline between 10 and 11 -Currently stable -Monitor History of BPH/prostate cancer/urinary overflow incontinence -Patient has chronic Torres -Follows with [facility] and plan is for suprapubic catheter in near future -Continue home oxybutynin Chronic orthostatic hypotension -Continue home midodrine Hypothyroidism -Continue home Synthroid History of gout -Continue home allopurinol Hyperlipidemia -Continue home simvastatin Intertriginous candidiasis -Continue home topical nystatin Depression -continue home sertraline Obesity -BMI is 32.2 -Recommend weight loss -Complicates treatment, prognosis, outcomes DVT prophylaxis -Continue subcu heparin TID CODE STATUS -Full code Charges/Coding Visit Charges Inpatient E&M: 34977 Init Hosp L2
[2024-07-14] MEDS: SEVELAMER CARBONATE 800 MG TABLET PO (16:23)
[2024-07-14] MEDS: Midodrine HCl 5 MG Tablet PO (16:24)
--- NOTE | 2024-07-14 18:07 | CASEMGMT ---
Care Management Face to Face with patient for initial transition planning/care coordination assessment in the ED.? This writer editor introduced self and role at [facility]. Patient alert and oriented. Patient willing to participate in assessment and is able to answer all questions appropriately.? Care providers, pharmacy, and demographics verified. Admitting Diagnosis: ESRD Other diagnosis history: hyperlipidemia, hypotension, prostate cancer PCP: Zane Insurance: [employer] Prescription Benefit: Living Will/HPOA: ?Yes, not on file LNOK: friend Living Arrangements: Lives by self in home Transportation: uses a taxi DME: ?walker, rollator, shower bench, hospital bed.? Has a jamison cath.? Goes to dialysis M, W, F @ 11:00am at [facility]: Has an aide 21 hours a week Mon-Fri. Has a nurse every other week and PT /OT weekly.? HH thru [facility] SNF/Rehab: None Community Resources: ?None Behavioral Health History: None Patient goals: Patient wishes to discharge home. Disposition Plan: admission to acute; RN CM/SW to follow for discharge planning needs that may arise. Cherie Hagen, SOD CUTTER, PORT CRANE OPERATOR
[2024-07-14] MEDS: Heparin Injection (Vial) 5,000 UNIT/ML VIAL 5000 UNIT SC (21:03)
[2024-07-14] MEDS: Oxybutynin 5 MG Tablet PO (21:04)
[2024-07-14] MEDS: guaiFENesin 1,200 MG Tablet 1200 MG PO (21:04)
[2024-07-14] MEDS: Atorvastatin Calcium 10 MG Tablet PO (21:05)
[2024-07-14] MEDS: 0.9% Saline Lock 10 ML Syringe IV (21:05)
[2024-07-15] VITALS (13 sets, daily range): BP systolic 125–137; BP diastolic 50–61; PULSE 86–93; RESP 14–20; TEMP 36.6–36.9; O2SAT 92–96; BMI 33.3
[2024-07-15] MEDS: Ipratropium/Albuterol Sulfate 3 ML AMPUL.NEB INHALATION ×5 (03:25→19:37)
[2024-07-15] MEDS: Levothyroxine 88 MCG Tablet PO (05:12)
[2024-07-15] MEDS: Heparin Injection (Vial) 5,000 UNIT/ML VIAL 5000 UNIT SC ×3 (05:12→20:56)
[2024-07-15] MEDS: 0.9% Saline Lock 10 ML Syringe IV ×2 (05:12→15:01)
[2024-07-15 07:23] LABS: Absolute Lymphocyte Count 0.25 X10^3/uL (0.83-4.51); Absolute Neutrophil Count 3.3 X10^3/uL (2.0-7.7); Basophil# 0.01 X10^3/uL; Basophil% 0.3 % (0-1); Hematocrit 34.5 % (40-54); Hemoglobin 10.8 g/dL (13.0-16.5); Lymphocyte # 0.25 X10^3/ul (0.83-4.51); Lymphocyte % 6.8 % (19-41); Mean Corp Hgb Conc 31.3 g/dL (32-36); Mean Corpuscular Hgb 29.2 pg (27.0-32.0); Mean Corpuscular Volume 93.2 fL (80-94); Mean Platelet Vol. 10.7 fl (6.2-12.0); Monocyte# 0.08 X10^3/uL; Monocyte% 2.2 % (0-10); NRBC Flagged by Analyzer 0 % (0-5); Neutrophil # 3.32 X10^3/uL (2.7-7.7); Neutrophil % 90.2 % (47-70); POSITIVE DIFFERENTIAL YES; Platelet Count 170 K/mm3 (150-450); RBC Distribution Width CV 16.7 % (11.6-14.6); RBC Distribution Width SD 57.4 fl (35.1-43.9); White Blood Count 3.7 K/mm3 (4.4-11.0)
[2024-07-15 08:27] LABS: ALB/GLOB Ratio 0.7 RATIO (0.9-2.4); AST(SGOT) 19 U/L (15-37); Alanine Aminotransfer ALT/SGPT 19 U/L (16-61); Albumin, Serum 2.9 g/dL (3.2-5.0); Alkaline Phosphatase 80 U/L (45-117); Anion Gap 11 (5-15); BUN 60 mg/dL (7-18); Calcium,Total 8.4 mg/dL (8.5-10.1); Chloride 102 mmol/L (98-107); Creatinine, Serum 6.01 mg/dL (0.70-1.30); EST Glomerular Filtration Rate 10 mL/min (>60); Est Glom Filt Rate - Afr Amer 12 mL/min (>60); Estimated Creatinine Clearance 12.32 ml/min; Globulin 4.3 g/dL (2.2-4.2); Glucose 198 mg/dL (74-106); Magnesium 2.5 mg/dL (1.6-2.6); Phosphorus 4.1 mg/dL (2.5-4.9); Potassium 4.4 mmol/L (3.5-5.1); Protein, Total 7.2 g/dL (6.4-8.2); Sodium Level 135 mmol/L (136-145)
[2024-07-15] MEDS: Allopurinol 100 MG Tablet PO (09:02)
[2024-07-15] MEDS: Oxybutynin 5 MG Tablet PO ×2 (09:02→20:56)
[2024-07-15] MEDS: Midodrine HCl 5 MG Tablet PO ×2 (09:02→17:20)
[2024-07-15] MEDS: guaiFENesin 1,200 MG Tablet 1200 MG PO ×2 (09:02→20:57)
[2024-07-15] MEDS: Sertraline 50 MG Tablet PO (09:02)
[2024-07-15] MEDS: SEVELAMER CARBONATE 800 MG TABLET PO ×3 (09:02→17:20)
--- NOTE | 2024-07-15 10:25 | CASEMGMT ---
HH resumption order sent to [facility]. Requested confirmation of pt being active and with which disciplines. Tracey Bansal DC Planning Asst.
--- NOTE | 2024-07-15 10:55 | PCM.CONS.R ---
Assessment & Plan Assessment/Plan (1) End-stage renal disease: (2) Influenza A: PLAN: Plan - ESRD on HD MWF at [facility], last HD Friday (07/12). Patient is hopeful he will be discharged to home today. We did discuss option of having shorter hemodialysis treatment today for solute clearance, patient is not hypervolemic (patient has good urine output and volume status appears near euvolemic), potassium and bicarb normal. Patient states if he does dialysis [id number] he feels unwell therefore if he is discharged to home today patient would rather just have his dialysis session tomorrow at his kidney center. If patient remains in hospital then we will plan for dialysis. Hemoglobin is acceptable at 10.8. Oxygenation mid 90s on room air. Thank you for allowing us to participate in the care of Mr. Booth. HPI Consult Data Date of Consult: 07/15/24 HPI Narrative HPI Narrative: GENET BOOTH, is a 79 M who presented to the emergency room yesterday with complaints of shortness of breath. Patient was found to be positive influenza A, chest x-ray did not show any acute process, patient did become hypoxic in the emergency room needed oxygen and he was admitted for further evaluation and treatment. Patient has been started on Tamiflu. Nephrology consulted as patient has history of ESRD. Patient currently dialyzes at [facility] in [place] followed by Dr. Junior. His last dialysis was Friday. [facility] Medical History Dialysis patient Kidney disease Hepatitis Former smoker Hypertension ESRD on hemodialysis AV fistula End-stage renal disease Hyperlipidemia History of recurrent UTIs Chronic indwelling Jamison catheter Urinary retention Prostate cancer Candidiasis, intertrigo Orthostatic hypotension Hypothyroidism Gout Obesity (BMI 30.0-34.9) Home Medications ?Medication ?Instructions ?Recorded ?Last Taken ?Type allopurinol 100 mg tablet 100 mg PO DAILY 06/03/24 07/14/24 History levothyroxine 88 mcg tablet 88 mcg PO DAILY 06/03/24 07/14/24 History midodrine 5 mg tablet 5 mg PO BID 06/03/24 07/14/24 History nystatin 100,000 unit/gram topical 1 applic topical BID PRN skin 06/03/24 Unknown History cream irritation oxybutynin chloride 5 mg tablet 5 mg PO BID 06/03/24 07/14/24 History sertraline 50 mg tablet 50 mg PO DAILY 06/03/24 07/14/24 History sevelamer carbonate 800 mg tablet 800 mg PO TIDCM 06/03/24 07/14/24 History simvastatin 20 mg tablet 20 mg PO QPM 06/03/24 07/12/24 History Allergy/AdvReac Type Severity Reaction Status Date / Time iodine Allergy Intermediate Hives Verified 06/03/24 15:16 Family History Other Heart disease Hypertension Surgical History History of left hip hemiarthroplasty History of prostate surgery Social History household members: none Smoking Status: Former smoker alcohol intake: never substance use type: does not use additional social history: Ambulates with a wheeled walker at baseline ROS ROS Narrative As in HPI Physical Exam Narrative Alert and oriented x 3, no apparent distress S1, S2, RRR Lung sounds clear Abdomen soft, nontender No edema AV fistula right mid arm positive thrill and bruit indwelling jamison with clear yellow urine Lab / Micro Data 07/15/24 06:55 07/15/24 06:55 Labs: Laboratory Results - last 24 hr 07/14/24 10:35: Sodium 135 L, Potassium 4.7, Chloride 100, Carbon Dioxide 28.0, Anion Gap 7, BUN 44 H, Creatinine 5.12 H, Estim Creat Clear Calc 14.21, Est GFR (MDRD) Af Amer 14 L, Est GFR (MDRD) Non-Af 12 L, BUN/Creatinine Ratio 8.6 L, Glucose 93, Calcium 8.9 07/15/24 06:55: WBC 3.7 L, RBC 3.70 L, Hgb 10.8 L, Hct 34.5 L, MCV 93.2, MCH 29.2, MCHC 31.3 L, RDW Std Deviation 57.4 H, RDW Coeff of Filomena 16.7 H, Plt Count 170, MPV 10.7, Immature Gran % (Auto) 0.500, Neut % (Auto) 90.2 H, Lymph % (Auto) 6.8 L, [place] % (Auto) 2.2, Eos % (Auto) 0.0, Baso % (Auto) 0.3, Absolute Neuts (auto) 3.3, Absolute Lymphs (auto) 0.25 L, Nucleated RBC % 0, Sodium 135 L, Potassium 4.4, Chloride 102, Carbon Dioxide 23.0, Anion Gap 11, BUN 60 H, Creatinine 6.01 H, Estim Creat Clear Calc 12.32, Est GFR (MDRD) Af Amer 12 L, Est GFR (MDRD) Non-Af 10 L, BUN/Creatinine Ratio 10.0, Glucose 198 H, Calcium 8.4 L, Phosphorus 4.1, Magnesium 2.5, Total Bilirubin 0.30, AST 19, ALT 19, Alkaline Phosphatase 80, Total Protein 7.2, Albumin 2.9 L, Globulin 4.3 H, Albumin/Globulin Ratio 0.7 L Micro: Microbiology 07/14/24 16:30 Sputum, Expectorated/Coughed Gram Stain - Preliminary 07/14/24 10:35 Mucosa - Nose SARS-CoV-2, Influenza & RSV (PCR) - Final Influenzae A Imaging Radiology Impression Chest X-Ray 07/14/24 10:40 IMPRESSION: Stable appearance of chronic lung changes. Stable blunting of the left costophrenic angle. No definite pleural fluid collection is noted. No pneumothorax is seen. No new or worsened pneumonic process is evident. The cardiomediastinal silhouette is unchanged. Reading Location: [id number]
--- NOTE | 2024-07-15 14:31 | CHAPLAIN ---
Type of Pastoral Visit _x__ Initial Visit ___ Follow-up Visit ___ On-call Visit ___ General Patient Visit ___ Spiritual Assessment ___ Family Conference ___ Bereavement ___ Rapid Response ___ Code Blue ___ Other (describe below) Pastoral Care Referral From _x__ Patient ___ Family ___ Nurse ___ Physician ___ Janitor Helper ___ Barrel Tester And Drainer ___ Other (describe below) Sacrament/Intervention _x__ Active listening ___ Anointing ___ Yarsani ___ Bereavement ___ Communion _x__ Skyla exploration ___ _x__ Life review _x__ Prayer ___ Reconciliation ___ Sacrament of Sick _x__ Supportive presence ___ Wedding ___ Other (describe below) Pastoral Comments patient is lying down in bed and welcoming of a visit; pt reviews recent health history and adds that he will be glad when winter is over and people feel better; pt acknowledges that age has 'caught up to him'; pt is spiritually minded and reports thoughts on God's help; pt welcomes presence and prayer
--- NOTE | 2024-07-15 17:48 | PN.HOSP_ITS ---
Reason for Visit Reason for Visit: Diagnoses Influenza due to other identified influenza virus with other respiratory manifestations (07/14/24) Shortness of breath (07/14/24) Hypoxemia (07/14/24) Subjective Subjective Patient was seen and examined today, he is on room air at this time, he is still coughing and has harsh rhonchi. Patient will undergo dialysis tomorrow morning, I have elected to keep him on IV corticosteroids and aerosol treatments. He will receive Tamiflu again tomorrow after dialysis Objective Data Objective Data Vital Signs: Vital Signs Temp Pulse Resp BP Pulse Ox O2 Del Method O2 Flow Rate 98.3 F 91 16 137/58 H 93 Room Air 2 07/15/24 17:20 07/15/24 17:20 07/15/24 17:20 07/15/24 17:20 07/15/24 17:20 07/15/24 17:20 07/15/24 02:10 Oxygen Flow Rate (L/min) 2 Oxygen Delivery Method Room Air Weight: 105.4 kg Body Mass Index (BMI) 33.3 Intake & Output: Intake and Output for Last 24 Hours 07/13/24 07/14/24 07/15/24 23:59 23:59 23:59 Intake Total 450 / 450 855 / 855 Output Total 260 / 260 1150 / 1150 Balance 190 / 190 -295 / -295 Lab / Micro Data 07/15/24 06:55 07/15/24 06:55 Labs: Laboratory Results - last 24 hr 07/15/24 06:55: WBC 3.7 L, RBC 3.70 L, Hgb 10.8 L, Hct 34.5 L, MCV 93.2, MCH 29.2, MCHC 31.3 L, RDW Std Deviation 57.4 H, RDW Coeff of Filomena 16.7 H, Plt Count 170, MPV 10.7, Immature Gran % (Auto) 0.500, Neut % (Auto) 90.2 H, Lymph % (Auto) 6.8 L, [place] % (Auto) 2.2, Eos % (Auto) 0.0, Baso % (Auto) 0.3, Absolute Neuts (auto) 3.3, Absolute Lymphs (auto) 0.25 L, Nucleated RBC % 0, Sodium 135 L , Potassium 4.4, Chloride 102, Carbon Dioxide 23.0, Anion Gap 11, BUN 60 H, C reatinine 6.01 H, Estim Creat Clear Calc 12.32, Est GFR (MDRD) Af Amer 12 L, Est GFR (MDRD) Non-Af 10 L, BUN/Creatinine Ratio 10.0, Glucose 198 H, Calcium 8.4 L, Phosphorus 4.1, Magnesium 2.5, Total Bilirubin 0.30, AST 19, ALT 19, Alkaline Phosphatase 80, Total Protein 7.2, Albumin 2.9 L, Globulin 4.3 H, A lbumin/Globulin Ratio 0.7 L Micro: Microbiology 07/14/24 16:30 Sputum, Expectorated/Coughed Gram Stain - Final 07/14/24 16:30 Sputum, Expectorated/Coughed Respiratory Culture - Preliminary Mixed normal respiratory sunny. No Haemophilus, Streptococcus pneumoniae, beta-hemolytic Streptococcus or Staphylococcus aureus isolated. 07/14/24 10:35 Mucosa - Nose SARS-CoV-2, Influenza & RSV (PCR) - Final Influenzae A Physical Exam Const alert, oriented x3 and no apparent distress General Appearance: cooperative, well kempt and well developed Orientation / Consciousness: awake, oriented to person, oriented to place and oriented to time HEENT normocephalic, head/scalp atraumatic and moist oral mucous membranes Eyes PERRL, EOMs intact bilaterally and conjunctivae normal Neck supple, no JVD, thyroid normal and no carotid bruits General: trachea midline Resp normal respiratory effort, no retractions and no use of accessory muscles Resp Narrative: Scattered expiratory rhonchi are noted bilaterally Auscultation: rhonchi throughout; Negative for rales or wheezes Cardio regular rate, regular rhythm, S1 normal heart sound, S2 normal heart sound, no murmurs, no rub and no gallops GI normal to inspection, nondistended, normoactive bowel sounds, soft to palpation, non-tender and non-distended Extremity no clubbing, cyanosis or edema Skin no rashes or lesions noted General Skin Exam: no breakdown Neuro oriented x3, CN's II-XII intact bilaterally, moves all extremities, no focal motor deficits and no sensory deficits noted Sensorium / Orientation: awake and alert Speech: speech normal Psych affect normal Assessment & Plan Assessment/Plan (1) Influenza A: PLAN: Plan 1. 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-complicates care, management, recovery, and prognosis Total clinical time spent by myself addressing the patient's medical issues, reviewing all of his data, and collaborating with patient's care team: 35- minutes Charges/Coding Visit Charges Inpatient E&M: 57263 Subs Hosp L2
[2024-07-15] MEDS: MELATONIN 3 MG TABLET PO (20:57)
[2024-07-15] MEDS: Atorvastatin Calcium 10 MG Tablet PO (20:57)
[2024-07-15] MEDS: Acetaminophen 325 MG Tablet 650 MG PO (20:57)
[2024-07-16] VITALS (14 sets, daily range): BP systolic 130–249; BP diastolic 56–94; PULSE 67–88; RESP 12–20; TEMP 36.2–36.7; O2SAT 93–96; BMI 32.9; BMI 32.8
[2024-07-16] MEDS: Heparin Injection (Vial) 5,000 UNIT/ML VIAL 5000 UNIT SC (05:37)
[2024-07-16] MEDS: Levothyroxine 88 MCG Tablet PO (05:37)
[2024-07-16] MEDS: 0.9% Saline Lock 10 ML Syringe IV ×2 (05:41→13:33)
[2024-07-16] MEDS: Ipratropium/Albuterol Sulfate 3 ML AMPUL.NEB INHALATION ×2 (07:01→11:16)
[2024-07-16] MEDS: Midodrine HCl 5 MG Tablet PO (07:46)
[2024-07-16] MEDS: Heparin 10,000 UNITS/10 ML Vial 3000 UNITS IV (08:26)
[2024-07-16] MEDS: 0.9% Normal Saline 1,000 ML IV.SOLN. 1000 ML OPERA.SITE (08:27)
[2024-07-16] MEDS: PureFlow B 2K Dialysis Soln 1 BAG 6 BAG PF (08:27)
--- NOTE | 2024-07-16 10:09 | PCM.PN.REN ---
Subjective Subjective Patient seen and examined on hemodialysis. Tolerating dialysis well. No complaints. Objective Data Objective Data Vital Signs: Vital Signs Temp Pulse Resp BP Pulse Ox O2 Del Method O2 Flow Rate 98 F 69 14 145/94 H 96 Room Air 2 07/16/24 08:00 07/16/24 10:00 07/16/24 08:00 07/16/24 10:00 07/16/24 08:00 07/16/24 08:00 07/15/24 02:10 Oxygen Flow Rate (L/min) 2 Oxygen Delivery Method Room Air Weight: 104.1 kg Body Mass Index (BMI) 32.9 Intake & Output: Intake and Output for Last 24 Hours 07/14/24 07/15/24 07/16/24 23:59 23:59 23:59 Intake Total 450 / 450 855 / 855 Output Total 260 / 260 1150 / 1350 400 / 400 Balance 190 / 190 -295 / -495 -400 / -400 Lab / Micro Data 07/15/24 06:55 07/15/24 06:55 Micro: Microbiology 07/14/24 16:30 Sputum, Expectorated/Coughed Gram Stain - Final 07/14/24 16:30 Sputum, Expectorated/Coughed Respiratory Culture - Final Mixed normal respiratory sunny. No Haemophilus, Streptococcus pneumoniae, beta-hemolytic Streptococcus or Staphylococcus aureus isolated. 07/14/24 10:35 Mucosa - Nose SARS-CoV-2, Influenza & RSV (PCR) - Final Influenzae A Physical Exam Narrative Alert and oriented x 3, no apparent distress S1, S2, RRR Lung sounds clear Abdomen soft, nontender No edema AV fistula right mid arm accessed for hemodialysis indwelling jamiosn with clear yellow urine Assessment & Plan Assessment/Plan (1) End-stage renal disease: (2) Influenza A: PLAN: Plan - ESRD on HD MWF at [facility]. Patient undergoing hemodialysis today with around 500 mL fluid removal, he is near his EDW. If patient discharged to home today or tomorrow, is next dialysis will be at his kidney center on Friday. Hgb 10.8, patient does not need CHAVA with HD today. Influenza A, improving, on Tamiflu.
[2024-07-16] MEDS: SEVELAMER CARBONATE 800 MG TABLET PO (12:16)
[2024-07-16] MEDS: Allopurinol 100 MG Tablet PO (12:17)
[2024-07-16] MEDS: Sertraline 50 MG Tablet PO (12:17)
--- NOTE | 2024-07-16 13:15 | DCINST_ITS ---
Discharge Instructions Diet Discharge Diet: Renal Diet DC O2, CPAP, BIPAP needs RN Home O2 Qualification: Home O2 Qualification: Is the patient on home oxygen No 07/15/24 09:00 Home O2 Qualification: AT REST 1- Pulse Ox at rest 93 07/15/24 09:00 Home O2 Qualification: WITH AMBULATION 1- Pulse Ox with ambulation 96 07/15/24 09:00 1- Oxygen Flow Rate with 0 07/15/24 09:00 ambulation Home O2 Discharge instructions: No Dressing / Incision Discharge Activity: Return to Normal Activity Weight Bearing Status: Full weight bearing Follow Up Care Test Results: Test results from this visit will be discussed in further detail at your follow- up appointment, if applicable. Discharge Plan Admission Admit Date/Time: 07/14/24 13:57 Primary Reason for Your Visit: Influenza A, hypoxia Attending Provider: Shahid Allen Primary Care Provider: Ata Hernandez Consulting Providers: Jan Abarca; Elana Degroot Instructions Patient Instructions: ED Influenza (Adult) Discharge Orders/Prescriptions Prescriptions: New oseltamivir [Tamiflu] 30 mg capsule 30 mg PO UD 3 Days Qty: 3 0RF Rx Instructions: Take 1 after each dialysis for a total of 3 doses prednisone 20 mg tablet 20 mg PO DAILY Qty: 7 0RF Continued midodrine 5 mg tablet 5 mg PO BID levothyroxine 88 mcg tablet 88 mcg PO DAILY nystatin 100,000 unit/gram cream 1 applic topical BID PRN (Reason: skin irritation) oxybutynin chloride 5 mg tablet 5 mg PO BID sevelamer carbonate 800 mg tablet 800 mg PO TIDCM allopurinol 100 mg tablet 100 mg PO DAILY simvastatin 20 mg tablet 20 mg PO QPM sertraline 50 mg tablet 50 mg PO DAILY Referrals / Follow Up: Ata Hernandez MD [Primary Care Provider] - 3-5 Days if not improving Disposition Disposition (needs filled in before D/C Order can be placed): Home, Self Care
--- NOTE | 2024-07-16 13:31 | DS.PCM_ITS ---
Providers Date of Admission: 07/14/24 Date of Discharge: 07/16/24 Primary Care Physician: Dr. Ata Hernandez MD Consultations 07/14/24 15:21 Consult: Nephrology Routine Consulting Provider: Jan Abarca Reason for Consult: ESRD EMERGENT Consult: No MD Notified: Yes Date Notified: 07/14/24 Time Notified: 18:55 Method of Notification: Text Reason For Visit: INFLUENZA A, HYPOXIA Diagnosis Discharge Diagnosis (1) End-stage renal disease: Status: Acute Code(s): N18.6 - End stage renal disease (2) Influenza A: Status: Acute Code(s): J10.1 - Influenza due to other identified influenza virus with other respiratory manifestations Plan 1. 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-complicates care, management, recovery, and prognosis Total clinical time spent by myself addressing the patient's medical issues, reviewing all of his data, and collaborating with patient's care team: 35- minutes Medications at Discharge Home Medications allopurinol 100 mg tablet 100 mg PO DAILY gout 06/03/24 levothyroxine 88 mcg tablet 88 mcg PO DAILY thyroid 06/03/24 midodrine 5 mg tablet 5 mg PO BID blood pressure 06/03/24 nystatin 100,000 unit/gram topical cream 1 applic topical BID PRN skin irritation 06/03/24 oxybutynin chloride 5 mg tablet 5 mg PO BID bladder 06/03/24 sertraline 50 mg tablet 50 mg PO DAILY mental health 06/03/24 sevelamer carbonate 800 mg tablet 800 mg PO TIDCM blood pressure 06/03/24 simvastatin 20 mg tablet 20 mg PO QPM cholesterol 06/03/24 oseltamivir 30 mg capsule (Tamiflu) 30 mg PO UD 3 days #3 caps 07/16/24 prednisone 20 mg tablet 20 mg PO DAILY #7 tabs 07/16/24 Hospital Course Operations None Procedures Dialysis Summary of Care Provided Minutes Spent on Discharge: 31 Hospital Course: This 79-year-old white male was seen in the emergency room at [facility] with complaints of shortness of breath. Patient had a recent admission in late June 2024 at [facility] for urinary tract infection and RSV pneumonia. Patient complained of having nasal discharge and coughing. He had been producing clear sputum. Patient also complained of some myalgias and generalized fatigue. Workup in the emergency room revealed a pulse ox of 98% on 2 L nasal cannula, BUN was 44 and creatinine was 5.2, chest x-ray showed no acute process, patient is influenza A test was positive. Patient was admitted to PCU, he was seen in consultation by nephrology due to his end-stage renal disease requiring dialysis. Patient underwent dialysis during his hospitalization. He was treated with Tamiflu and aerosol treatments and IV Solu-Medrol. Patient improved during his hospitalization, his oxygen was weaned off. On 07/16/2024, patient was seen and examined: On examination he appeared in good health and spirits. Vital signs as documented. Skin warm and dry and without overt rashes. Neck without JVD, neck was supple, trachea midline, thyroid was normal. Lungs clear bilaterally, normal air movement was noted. Heart exam notable for regular rhythm, normal sounds and absence of murmurs, rubs or gallops. Abdomen unremarkable and without evidence of organomegaly, masses, or abdominal aortic enlargement. Bowel sounds are present, abdomen is not distended. Extremities nonedematous, no cyanosis was noted, no clubbing was noted. Neuro: Cranial nerves II through XII are grossly intact, no focal motor deficits were noted, sensation to light touch and pinprick intact, motor exam 5/5 throughout. Psych: Patient is alert and oriented x3, he does not appear anxious or depressed, he does not appear agitated. Patient was felt to be stable for discharge home on 07/16/2024 Weight / BMI Weight Weight: 103.6 kg Body Mass Index (BMI) 32.8 ABG / Lab / Microbiology Data 07/15/24 06:55 07/15/24 06:55 Microbiology: Microbiology 07/14/24 16:30 Sputum, Expectorated/Coughed Gram Stain - Final 07/14/24 16:30 Sputum, Expectorated/Coughed Respiratory Culture - Final Mixed normal respiratory sunny. No Haemophilus, Streptococcus pneumoniae, beta-hemolytic Streptococcus or Staphylococcus aureus isolated. 07/14/24 10:35 Mucosa - Nose SARS-CoV-2, Influenza & RSV (PCR) - Final Influenzae A D/C Instructions Discharge Diet: Renal Diet Weight Bearing Status: Full weight bearing DC O2, CPAP, BIPAP Needs RN Home O2 Qualification: Home O2 Qualification: Is the patient on home oxygen No 07/15/24 09:00 Home O2 Qualification: AT REST 1- Pulse Ox at rest 93 07/15/24 09:00 Home O2 Qualification: WITH AMBULATION 1- Pulse Ox with ambulation 96 07/15/24 09:00 1- Oxygen Flow Rate with 0 07/15/24 09:00 ambulation Home O2 Discharge instructions: No Meaningful Use Info Meaningful Use Meaningful Use Diagnoses (Choose all that apply): None applicable Ischemic Stroke Statin Dosing Therapy Reference: STATIN DOSE THERAPY REFERENCE: * Patients > 75 years receive moderate or high dose statin therapy. * Patients 75 years or YOUNGER should receive HIGH intensity statin dose unless contraindicated. You will be required to document reason for non-treatment if statin daily dose does not meet guidelines. HIGH DOSE STATIN THERAPY DAILY Atorvastatin > than or = to 40 mg Rosuvastatin > than or = to 20 mg Amlodipine + Atorvastatin > than or = to 2.5/40 mg Ezetimibe + Simvastatin 10/80 mg Simvastatin 80mg Discharge Plan Admission Admit Date/Time: 07/14/24 13:57 Primary Reason for Your Visit: Influenza A, hypoxia Attending Provider: Shahid Allen Primary Care Provider: Ata Hernandez Consulting Providers: Jan Abarca; Elana Degroot Instructions Patient Instructions: ED Influenza (Adult) Discharge Orders/Prescriptions Prescriptions: New oseltamivir [Tamiflu] 30 mg capsule 30 mg PO UD 3 Days Qty: 3 0RF Rx Instructions: Take 1 after each dialysis for a total of 3 doses prednisone 20 mg tablet 20 mg PO DAILY Qty: 7 0RF Continued midodrine 5 mg tablet 5 mg PO BID levothyroxine 88 mcg tablet 88 mcg PO DAILY nystatin 100,000 unit/gram cream 1 applic topical BID PRN (Reason: skin irritation) oxybutynin chloride 5 mg tablet 5 mg PO BID sevelamer carbonate 800 mg tablet 800 mg PO TIDCM allopurinol 100 mg tablet 100 mg PO DAILY simvastatin 20 mg tablet 20 mg PO QPM sertraline 50 mg tablet 50 mg PO DAILY Referrals / Follow Up: Ata Hernandez MD [Primary Care Provider] - 3-5 Days if not improving ( office is closed today. Please call to schedule follow up appointment.) Disposition Disposition (needs filled in before D/C Order can be placed): Home, Self Care Charges/Coding Visit Charges Inpatient E&M: 07773 Disch Hosp >30min
--- NOTE | 2024-07-16 14:07 | CASEMGMT ---
Discharge instructions sent to [facility]. Tracey Bansal DC Planning Asst.
--- NOTE | 2024-07-16 14:24 | CASEMGMT ---
Patient has order for discharge. RN CM in to discuss needs at discharge. RN CM updated patient that C will be resumed with [facility]. Patient denies further need or help at discharge. Patient had no further questions or concerns.
[2024-07-16] MEDS: Oseltamivir Phosphate 30 MG Capsule PO (14:50)
== END 2024-07-16 15:04 | disposition home health service (06) ==
LOC: ED 13:29 → PCU 14:32
PROVIDERS: Admitting Provider Internal Medicine; Emergency Provider Emergency Medicine; Visit Provider Internal Medicine
DX: J10.1 Influenza due to other identified influenza virus with other respiratory manifestations (principal); N18.6 End stage renal disease; I12.0 Hypertensive chronic kidney disease with stage 5 chronic kidney disease or end stage renal disease; D63.1 Anemia in chronic kidney disease; B37.2 Candidiasis of skin and nail; E03.9 Hypothyroidism, unspecified; F32.A Depression, unspecified; E66.9 Obesity, unspecified; Z99.2 Dependence on renal dialysis; I95.89 Other hypotension; E78.5 Hyperlipidemia, unspecified; Z68.32 Body mass index [BMI] 32.0-32.9, adult; Z87.891 Personal history of nicotine dependence; Z79.899 Other long term (current) drug therapy; Z79.890 Hormone replacement therapy; R09.02 Hypoxemia
CPT/HCPCS: 36415; 71045; 80048; 80053; 83735; 84100; 85025; 87070; 87205; 87631; 90937; 93005; 94640; 94668; 97162; 97166; 97802; 99252; 99285; A4216; G0257; G0463

== ENCOUNTER 2024-08-13 17:04 | Emergency (ER) | payer MEDICARE, MEDICAID, SELFPAY ==
[2024-08-13 17:07] VITALS: BP 108/66; PULSE 112; RESP 18; TEMP 36.7; O2SAT 93
[2024-08-13 18:46] LABS: Mucous, Urine 0 SEEN /hpf (<or=2+)
[2024-08-13 18:53] LABS: Color, Urine Red (Yellow); Glucose, Dipstick Normal (Normal); Ketone-Dipstick Negative (Negative); Leukocyte Esterase-Dipstick 500 /ul (Negative); Nitrite-Dipstick Negative (Negative); Occult Blood-Urine 250 /ul (Negative); Protein-Dipstick 100 mg/dl (Negative); Urine Bilirubin Dipstick Negative (Negative); Urine Clarity Cloudy (Clear); Urine Urobilinogen Normal (Normal)
--- NOTE | 2024-08-13 19:08 | EKG12_ITS ---
Test Reason : DYSRHYTHMIA Blood Pressure : */* mmHG Vent. Rate : 91 BPM Atrial Rate : 91 BPM P-R Int : 222 ms QRS Dur : 88 ms QT Int : 368 ms P-R-T Axes : 20 48 30 degrees QTcB Int : 452 ms Sinus rhythm with 1st degree A-V block Possible Inferior infarct , age undetermined T wave abnormality, consider anterior ischemia Abnormal ECG Confirmed by DEBBIE WEEKS, LORA ([id number]), web editor NEGRITO CONNER ([id number]) on 08/16/2024 11:01:37 AM Referred By: Confirmed By: LORA LEWIS MD
[2024-08-13 19:14] LABS: Bacteria 1+ /hpf (None Seen); Red Blood Cells-Urine > 100 SEEN /hpf (0-5); Squamous Epithelial Cells - UA 0-5 SEEN /hpf (0-5); White Blood Cells 50-100 SEEN /hpf (0-5)
--- NOTE | 2024-08-13 19:17 | EX.ED.DYSGE1 ---
HPI History of Present Illness Chief Complaint: Complaint Informant: patient Onset/Context/Timing Onset: Days Context: Gradual Onset Timing: Continuous Current Severity: Mild Maximum Severity: Mild Narrative Narrative: 79-year-old male history of end-stage renal disease dialysis. Was dialyzed today full run. He was recently diagnosed with a UTI placed on antibiotic Keflex which she states has been taken 4 times a day but is not getting better also is having gross hematuria he has a chronic indwelling Torres catheter. Patient states he is generally weak and not feeling well. He denies vomiting. He does have nausea and diarrhea. No melena. He was hospitalized about 2 weeks ago. Prior similar symptoms: Yes Recent Illness/Hospitalization: Yes [facility] Medical History Hypoxia SOB (shortness of breath) Influenza A Dialysis patient Kidney disease Hepatitis Former smoker Hypertension ESRD on hemodialysis AV fistula End-stage renal disease Hyperlipidemia History of recurrent UTIs Chronic indwelling Torres catheter Urinary retention Prostate cancer Candidiasis, intertrigo Orthostatic hypotension Hypothyroidism Gout Obesity (BMI 30.0-34.9) Home Medications ?Medication ?Instructions ?Recorded ?Last Taken ?Type allopurinol 100 mg tablet 100 mg PO DAILY gout 06/03/24 07/14/24 History levothyroxine 88 mcg tablet 88 mcg PO DAILY thyroid 06/03/24 07/14/24 History midodrine 5 mg tablet 5 mg PO BID blood pressure 06/03/24 07/14/24 History nystatin 100,000 unit/gram topical 1 applic topical BID PRN skin 06/03/24 Unknown History cream irritation oxybutynin chloride 5 mg tablet 5 mg PO BID bladder 06/03/24 07/14/24 History sertraline 50 mg tablet 50 mg PO DAILY mental health 06/03/24 07/14/24 History sevelamer carbonate 800 mg tablet 800 mg PO TIDCM blood pressure 06/03/24 07/14/24 History simvastatin 20 mg tablet 20 mg PO QPM cholesterol 06/03/24 07/12/24 History oseltamivir 30 mg capsule (Tamiflu) 30 mg PO UD 3 days #3 caps 07/16/24 Unknown Rx prednisone 20 mg tablet 20 mg PO DAILY #7 tabs 07/16/24 Unknown Rx Allergy/AdvReac Type Severity Reaction Status Date / Time iodine Allergy Intermediate Hives Verified 08/13/24 17:07 Family History Other Heart disease Hypertension Surgical History History of left hip hemiarthroplasty History of prostate surgery Social History household members: none Smoking Status: Former smoker alcohol intake: never substance use type: does not use additional social history: Ambulates with a wheeled walker at baseline ROS ROS ED ROS Narrative Generalized weakness. UTI. Gross hematuria. Constitutional Constitutional ED: Denies chills or fever(s) Eyes Eyes: Denies blurry vision ENT ENT ED: Denies ear pain Cardiovascular Cardiovascular: Denies chest pain Respiratory/Chest Respiratory/Chest: Denies cough or dyspnea Gastrointestinal Gastrointestinal: Reports diarrhea; Denies abdominal pain, constipation, melena or vomiting Genitourinary Genitourinary ED: Reports hematuria; Denies dysuria Musculoskeletal Musculoskeletal: Denies arthralgias or back pain Integumentary Denies abscess Neurologic Neurologic: Denies headache(s) Psychiatric Psychiatric: Denies anxiety Endocrine Endocrinology: Denies cold intolerance Hematologic/Lymphatic Hematologic/Lymphatic: Reports none Allergic/Immunologic Allergic/Immunologic ED: Denies mouth swelling or urticaria EXAM Physical Exam Narrative Exam Narrative: 79-year-old male sitting upright in bed. Vital signs stable afebrile. He does not look septic or toxic. He is in no distress. No family is present at this time. H EENT exam pupils round react light. Mytrex members. Neck nontender no lymphadenopathy. Lungs clear to auscultation bilaterally. Heart tachycardic 110 no murmur. Chest wall ribs nontender. Abdomen soft nontender. No peritoneal signs. No distention. Indwelling Torres catheter. Grossly bloody urine. Moving all 4 extremities. Nontender no edema. Neurologically is awake alert. Answering questions following commands. Back nontender. Benign exam. Const Vital Signs: 08/13/24 17:07 08/13/24 20:12 08/13/24 21:00 Temperature 98.0 F 98.3 F 98.7 F Temperature Source Oral Oral Oral Pulse Rate 112 H 89 89 Respiratory Rate 18 16 19 H Blood Pressure 108/66 135/98 H 122/78 H Blood Pressure Mean 80 110 92 Pulse Ox 93 98 98 Oxygen Delivery Method Room Air Room Air Room Air 08/13/24 23:00 Temperature Temperature Source Pulse Rate 89 Respiratory Rate Blood Pressure 115/78 Blood Pressure Mean 90 Pulse Ox 93 Oxygen Delivery Method Positive well nourished, well developed and obese; Negative for cachectic, contractures or unkempt General Appearance ED: well developed; Negative for unkempt, cachectic, contractures, cyanotic, diaphoretic or pallor Nutritional Appearance: obese; Negative for cachectic HEENT Reports moist mucous membranes Negative for trauma or tenderness Eyes PERRL and EOMs intact bilaterally General Eye ED: Negative for pale conjunctiva or scleral icterus Neck no lymphadenopathy, supple and no JVD General: Negative for tenderness Chest Wall inspection of chest normal and palpation of chest normal Resp normal respiratory effort and clear to auscultation bilaterally Effort and Inspection: Negative for retractions Auscultation: Negative for rales, rhonchi, wheezes or diminished lung sounds Cardio regular rhythm, S1 normal heart sound, S2 normal heart sound and no murmurs; Negative for regular rate Rate: tachycardic GI normal to inspection, nondistended, normoactive bowel sounds, non-tender, non-distended and no masses Palpation: soft; Negative for tender, guarding or rebound tenderness present Back/Spine no CVA tenderness General Back: Negative for CVA tenderness Cervical Spine: Negative for cervical spine tenderness Thoracic Spine / Upper Back: Negative for thoracic spinal tenderness or paraspinal muscle tenderness Lumbar Spine / Lower Back: Negative for lumbar spinal tenderness Extremity normal to inspection General Extremety ED: Negative for edema or tenderness General Extremity: Negative for edema Neuro CN's II-XII intact bilaterally Sensorium / Orientation: alert; Negative for orientation impaired, lethargic or stuporous Motor Exam: strength 5/5 throughout Psych mental status grossly normal Appearance: Negative for unkempt Attitude: No agitated Mood & Affect: Negative for depressed or anxious Skin no rashes or lesions noted and no wounds General Skin Exam: Negative for jaundice or pallor Lesions: No lesion noted Trauma: Negative for abrasion Wounds: Negative for wounds noted MDM MDM MDM Narrative Medical decision making narrative: 79-year-old male with UTI reportedly not responding to outpatient antibiotic therapy. Generalized weakness. Screening labs to be obtained. He is a dialysis patient. Repeat exam patient is doing well at 11:15 PM. He and I went over his test results. He is comfortable being discharged home. Up to go home by ambulance because he did not have a ride. He has been on the Keflex a week. He does not feel like it is working. I checked his last urine culture the end of June it was sensitive to Cipro. He will be placed on Cipro twice daily for 10 days. I did send a urine culture. He ate well follow-up with his physician this coming week. He knows to return if he is feeling worse. He really does not need to be admitted at this time by exam, vital signs or his labs. History & Record Review Discussion w/independent historian: Patient Additional record(s) reviewed:: Prior inpatient record, Prior outpatient record, Prior ED visit and Prior labs Lab Data Attestation: I reviewed the patient's lab results. Lab results narrative: Urinalysis shows 250 occult blood. No nitrates. Greater 100 red cells, 50-100 white cells 1+ bacteria, urine culture sent. This is consistent with a UTI. CBC shows a white count 8.1. H&H 10.8 and 35. Platelets 258. BMP shows a potassium of 5.2. Gap of 12. BUN and creatinine 18 and 2.79. Patient is a dialysis patient. Labs are consistent with his baseline. Labs: Laboratory Results - last 24 hr 08/13/24 08/13/24 18:39 20:00 WBC 8.1 RBC 3.71 L Hgb 10.8 L Hct 35.3 L MCV 95.1 H MCH 29.1 MCHC 30.6 L RDW Std Deviation 60.8 H RDW Coeff of Filomena 17.5 H Plt Count 258 MPV 10.1 Immature Gran % (Auto) 0.900 Neut % (Auto) 71.0 H Lymph % (Auto) 15.2 L [place] % (Auto) 10.1 H Eos % (Auto) 2.2 Baso % (Auto) 0.6 Absolute Neuts (auto) 5.8 Absolute Lymphs (auto) 1.23 Nucleated RBC % 0 Sodium 140 Potassium 5.2 H Chloride 98 Carbon Dioxide 29.9 Anion Gap 12 BUN 18 Creatinine 2.79 H Estim Creat Clear Calc 26.62 L Est GFR (MDRD) Non-Af 22 L BUN/Creatinine Ratio 6.4 L Glucose 106 H Calcium 9.5 Urine Color Red Urine Clarity Cloudy Urine pH 8.0 Ur Specific [place] 1.010 Urine Protein 100 H Urine Glucose (UA) Normal Urine Ketones Negative Urine Occult Blood 250 H Urine Nitrite Negative Urine Bilirubin Negative Urine Urobilinogen Normal Ur Leukocyte Esterase 500 H Urine RBC > 100 SEEN Urine WBC 50-100 SEEN Ur Squamous Epith Cells 0-5 SEEN Urine Bacteria 1+ Urine Mucus 0 SEEN Discharge Plan Triage Chief Complaint: Complaint ED Provider: Rajat Suazo Dx/Rx/DC Orders Prescriptions: No Action oseltamivir [Tamiflu] 30 mg capsule 30 mg PO UD 3 Days Qty: 3 0RF Rx Instructions: Take 1 after each dialysis for a total of 3 doses prednisone 20 mg tablet 20 mg PO DAILY Qty: 7 0RF midodrine 5 mg tablet 5 mg PO BID levothyroxine 88 mcg tablet 88 mcg PO DAILY nystatin 100,000 unit/gram cream 1 applic topical BID PRN (Reason: skin irritation) oxybutynin chloride 5 mg tablet 5 mg PO BID sevelamer carbonate 800 mg tablet 800 mg PO TIDCM allopurinol 100 mg tablet 100 mg PO DAILY simvastatin 20 mg tablet 20 mg PO QPM sertraline 50 mg tablet 50 mg PO DAILY Primary Care Provider: Ata Hernandez Referrals: Ata Hernandez MD [Primary Care Provider] - Print Language: Telugu
[2024-08-13 19:50] VITALS: BMI 33.5
[2024-08-13 20:10] LABS: Absolute Lymphocyte Count 1.23 X10^3/uL (0.83-4.51); Absolute Neutrophil Count 5.8 X10^3/uL (2.0-7.7); Basophil# 0.05 X10^3/uL; Basophil% 0.6 % (0-1); Eosinophil# 0.18 X10^3/uL; Eosinophils% 2.2 % (0-5); Hematocrit 35.3 % (40-54); Hemoglobin 10.8 g/dL (13.0-16.5); Lymphocyte # 1.23 X10^3/ul (0.83-4.51); Lymphocyte % 15.2 % (19-41); Mean Corp Hgb Conc 30.6 g/dL (32-36); Mean Corpuscular Hgb 29.1 pg (27.0-32.0); Mean Corpuscular Volume 95.1 fL (80-94); Mean Platelet Vol. 10.1 fl (6.2-12.0); Monocyte# 0.82 X10^3/uL; Monocyte% 10.1 % (0-10); NRBC Flagged by Analyzer 0 % (0-5); Neutrophil # 5.75 X10^3/uL (2.7-7.7); Platelet Count 258 K/mm3 (150-450); RBC Distribution Width CV 17.5 % (11.6-14.6); RBC Distribution Width SD 60.8 fl (35.1-43.9); Red Blood Count 3.71 M/mm3 (4.6-6.2); White Blood Count 8.1 K/mm3 (4.4-11.0)
[2024-08-13 20:12] VITALS: BP 135/98; PULSE 89; RESP 16; TEMP 36.8; O2SAT 98
[2024-08-13 20:53] LABS: Anion Gap 12 (5-15); BUN 18 mg/dL (4-19); BUN/Creat Ratio 6.4 RATIO (10-20); Calcium,Total 9.5 mg/dL (7.6-11.0); Carbon Dioxide 29.9 mmol/L (21.0-32.0); Chloride 98 mmol/L (98-108); Creatinine, Serum 2.79 mg/dL (0.70-1.20); EST Glomerular Filtration Rate 22 (>60); Estimated Creatinine Clearance 26.62 ml/min (50-250); Glucose 106 mg/dL (70-99); Potassium 5.2 mmol/L (3.3-5.1); Sodium Level 140 mmol/L (133-145)
[2024-08-13 21:00] VITALS: BP 122/78; PULSE 89; RESP 19; TEMP 37.1; O2SAT 98
[2024-08-13 23:00] VITALS: BP 115/78; PULSE 89; O2SAT 93
[2024-08-13] MEDS: Ciprofloxacin 500 MG Tablet PO (23:26)
[2024-08-13 23:31] VITALS: BP 115/78; PULSE 89; RESP 16; TEMP 36.8; O2SAT 93
== END 2024-08-14 00:24 | disposition home or self-care (01) ==
PROVIDERS: Emergency Provider Emergency Medicine; Visit Provider Emergency Medicine
DX: N39.0 Urinary tract infection, site not specified (principal); N18.6 End stage renal disease; E66.9 Obesity, unspecified; Z99.2 Dependence on renal dialysis; Z87.891 Personal history of nicotine dependence
CPT/HCPCS: 80048; 81001; 85025; 87077; 87086; 87088; 87184; 87186; 93005; 99285; A4216

== ENCOUNTER 2024-08-16 16:39 | Emergency (ER) | payer MEDICARE, MEDICAID, SELFPAY ==
[2024-08-16 16:42] VITALS: BP 115/56; PULSE 100; RESP 20; TEMP 36.8; O2SAT 95; BMI 33.6
[2024-08-16 17:49] VITALS: BP 115/60; PULSE 84; RESP 21; TEMP 36.7; O2SAT 92
[2024-08-16 18:00] VITALS: BP 124/70; PULSE 83; RESP 23; TEMP 36.6; O2SAT 90
--- NOTE | 2024-08-16 18:02 | EKG12_ITS ---
Test Reason : SYNCOPE Blood Pressure : */* mmHG Vent. Rate : 83 BPM Atrial Rate : 83 BPM P-R Int : 204 ms QRS Dur : 94 ms QT Int : 388 ms P-R-T Axes : 60 58 30 degrees QTcB Int : 455 ms Sinus rhythm with Premature atrial complexes with Aberrant conduction Nonspecific T wave abnormality Abnormal ECG Confirmed by KATHERINE WEEKS, DAVI ([id number]), image editor NEGRITO CONNER ([id number]) on 08/17/2024 8:19:36 AM Referred By: SHERRELL Confirmed By: DAVI MURPHY MD
[2024-08-16 18:19] LABS: Absolute Lymphocyte Count 0.98 X10^3/uL (0.83-4.51); Absolute Neutrophil Count 7.4 X10^3/uL (2.0-7.7); Basophil# 0.06 X10^3/uL; Basophil% 0.6 % (0-1); Eosinophil# 0.14 X10^3/uL; Eosinophils% 1.5 % (0-5); Hematocrit 37.6 % (40-54); Hemoglobin 11.9 g/dL (13.0-16.5); Lymphocyte # 0.98 X10^3/ul (0.83-4.51); Lymphocyte % 10.2 % (19-41); Mean Corp Hgb Conc 31.6 g/dL (32-36); Mean Corpuscular Hgb 29.3 pg (27.0-32.0); Mean Corpuscular Volume 92.6 fL (80-94); Mean Platelet Vol. 10.1 fl (6.2-12.0); Monocyte# 0.94 X10^3/uL; Monocyte% 9.8 % (0-10); NRBC Flagged by Analyzer 0 % (0-5); Neutrophil # 7.44 X10^3/uL (2.7-7.7); Neutrophil % 77.1 % (47-70); Platelet Count 251 K/mm3 (150-450); RBC Distribution Width CV 16.8 % (11.6-14.6); RBC Distribution Width SD 56.8 fl (35.1-43.9); Red Blood Count 4.06 M/mm3 (4.6-6.2); White Blood Count 9.6 K/mm3 (4.4-11.0)
--- NOTE | 2024-08-16 18:43 | EX.ED.DYSGE1 ---
HPI History of Present Illness Chief Complaint: Syncope Informant: patient Narrative Narrative: Brought in by EMS from home for syncopal episode. Patient is returning from dialysis when he got out of the transport car being held by his caregiver on steps he felt lightheaded and went down. He was held by his caregiver. No injuries. No trouble drome with chest pains or shortness of breath. History of orthostasis EMS arrival blood pressures in the 70s. Reported 2 L fluid was removed that is typical. Dry weight is 278 pounds per patient. Denies cough. Denies recent vomiting or diarrhea. He is a chronic Torres due to prostate cancer he states 2 L bag he makes nearly 2/3 of urine that he empties a day. He was seen this past Friday for UTI. He states he is on antibiotics. Denies fever chills or sweats. Patient ambulates with a rollator. [facility] Medical History Hypoxia SOB (shortness of breath) Influenza A Dialysis patient Kidney disease Hepatitis Former smoker Hypertension ESRD on hemodialysis AV fistula End-stage renal disease Hyperlipidemia History of recurrent UTIs Chronic indwelling Torres catheter Urinary retention Prostate cancer Candidiasis, intertrigo Orthostatic hypotension Hypothyroidism Gout Obesity (BMI 30.0-34.9) Home Medications ?Medication ?Instructions ?Recorded ?Last Taken ?Type allopurinol 100 mg tablet 100 mg PO DAILY gout 06/03/24 07/14/24 History levothyroxine 88 mcg tablet 88 mcg PO DAILY thyroid 06/03/24 07/14/24 History midodrine 5 mg tablet 5 mg PO BID blood pressure 06/03/24 07/14/24 History nystatin 100,000 unit/gram topical 1 applic topical BID PRN skin 06/03/24 Unknown History cream irritation oxybutynin chloride 5 mg tablet 5 mg PO BID bladder 06/03/24 07/14/24 History sertraline 50 mg tablet 50 mg PO DAILY mental health 06/03/24 07/14/24 History sevelamer carbonate 800 mg tablet 800 mg PO TIDCM blood pressure 06/03/24 07/14/24 History simvastatin 20 mg tablet 20 mg PO QPM cholesterol 06/03/24 07/12/24 History oseltamivir 30 mg capsule (Tamiflu) 30 mg PO UD 3 days #3 caps 07/16/24 Unknown Rx prednisone 20 mg tablet 20 mg PO DAILY #7 tabs 07/16/24 Unknown Rx cefdinir 300 mg capsule 300 mg PO Q12H #14 caps 08/16/24 Unknown Rx Allergy/AdvReac Type Severity Reaction Status Date / Time iodine Allergy Intermediate Hives Verified 08/16/24 16:46 Family History Other Heart disease Hypertension Surgical History History of left hip hemiarthroplasty History of prostate surgery Social History household members: none Smoking Status: Former smoker alcohol intake: never substance use type: does not use additional social history: Ambulates with a wheeled walker at baseline ROS ROS ED Constitutional Constitutional ED: Denies chills, fever(s) or sweats ENT ENT ED: Denies sore throat Cardiovascular Cardiovascular: Reports other Details: Syncope ; Denies chest pain, leg edema, palpitations or racing heartbeat Respiratory/Chest Respiratory/Chest: Denies cough, dyspnea or dyspnea on exertion Gastrointestinal Gastrointestinal: Denies abdominal pain, diarrhea, nausea or vomiting Genitourinary Genitourinary ED: Reports hematuria; Denies dysuria or urinary frequency Musculoskeletal Musculoskeletal: Denies back pain, extremity pain or neck pain Integumentary Denies rash or wounds Neurologic Neurologic: Denies headache(s), paresthesias or weakness EXAM Physical Exam Const Vital Signs: 08/16/24 16:42 08/16/24 16:49 08/16/24 17:49 Temperature 98.3 F 98.0 F Temperature Source Oral Temporal Pulse Rate 100 84 Respiratory Rate 20 H 21 H Respiratory Pattern Normal Blood Pressure 115/56 L 115/60 Blood Pressure Mean 75 78 Pulse Ox 95 92 Oxygen Delivery Method Room Air Room Air 08/16/24 18:00 08/16/24 22:57 Temperature 97.9 F Temperature Source Temporal Pulse Rate 83 89 Respiratory Rate 23 H 20 H Respiratory Pattern Blood Pressure 124/70 H 134/84 H Blood Pressure Mean 88 100 Pulse Ox 90 97 Oxygen Delivery Method Room Air Positive well nourished and well developed General Appearance ED: well developed and NAD HEENT HEENT Narrative: Mild dry mucosal membranes. normocephalic and atraumatic Eyes General Eye ED: Yes normal appearance of both eyes Neck full ROM Chest Wall Chest: Negative for tenderness Resp normal respiratory effort and normal air movement Effort and Inspection: symmetric chest movement; Negative for respiratory distress Cardio regular rate, regular rhythm and no murmurs Peripheral Pulses: pulses 2+ throughout GI normal to inspection, nondistended, normoactive bowel sounds and non-tender Palpation: Negative for guarding or rebound tenderness present Narrative: Torres catheter tubing yellow to bloody urine. Extremity normal to inspection General Extremety ED: Negative for edema or tenderness General Extremity: Negative for edema Neuro oriented x3, CN's II-XII intact bilaterally and no sensory deficits noted Sensorium / Orientation: awake and alert Skin no rashes or lesions noted and no wounds MDM MDM MDM Narrative Medical decision making narrative: Interventions / MDM: Differential diagnosis: Syncope, orthostasis, urinary tract infection, chronic Torres, end-stage renal disease on hemodialysis Diagnosis considered but do not suspect: No clinical sepsis My EKG interpretation: Sinus rate of 83, no ST or T wave changes. PACs noted. QTc 455. Imaging independently reviewed and interpreted by myself: N/A External documents reviewed: Urine culture from 3 days ago with Pseudomonas resistant to Cipro. He was switched over from Keflex to Cipro on his visit. Test considered but not ordered:N/A ED course: Patient single episode EKG normal. Mild dry mucosal membranes. Gentle fluids given for dialysis history. Will check basic labs to recheck urine. EKG with no acute findings. Labs normal white count normal hemoglobin. Creatinine 2.96 with a potassium 4.1. History of dialysis. 2129: Urine noting nitrites and leukocytes. Reviewed from culture he days ago Pseudomonas resistant to Cipro that he was sent home with. Sensitive to cefepime. Will give IV Rocephin. Patient able to ambulate with his walker per nursing. Discussed with patient his Torres catheter will be nidus for infection. With infection discussed exchange, however he declined stating that it can be performed by his home nurse. Discussed skin does exchange sooner rather than later. He understands this. Prescription of cefdinir sent to his pharmacy. He will stop his Cipro. All questions were answered. Re-evaluation: stable Disposition discussed with patient/family/significant other: Patient Case discussed with consulting clinician: N/A This note was generated with Dragon dictation software. It may contain incorrect words, spelling, and punctuation that were not noted in checking the note before signing. Lab Data Attestation: I reviewed the patient's lab results. Labs: Laboratory Results - last 24 hr 08/16/24 08/16/24 18:15 21:10 WBC 9.6 RBC 4.06 L Hgb 11.9 L Hct 37.6 L MCV 92.6 MCH 29.3 MCHC 31.6 L RDW Std Deviation 56.8 H RDW Coeff of Filomena 16.8 H Plt Count 251 MPV 10.1 Immature Gran % (Auto) 0.800 Neut % (Auto) 77.1 H Lymph % (Auto) 10.2 L [place] % (Auto) 9.8 Eos % (Auto) 1.5 Baso % (Auto) 0.6 Absolute Neuts (auto) 7.4 Absolute Lymphs (auto) 0.98 Nucleated RBC % 0 Sodium 139 Potassium 4.1 Chloride 96 L Carbon Dioxide 26.3 Anion Gap 16 H BUN 23 H Creatinine 2.96 H Estim Creat Clear Calc 25.11 L Est GFR (MDRD) Non-Af 21 L BUN/Creatinine Ratio 7.6 L Glucose 107 H Calcium 9.8 Urine Color Red Urine Clarity Cloudy Urine pH 7.0 Ur Specific [place] 1.010 Urine Protein 500 H Urine Glucose (UA) Normal Urine Ketones Negative Urine Occult Blood 250 H Urine Nitrite Positive H Urine Bilirubin Negative Urine Urobilinogen Normal Ur Leukocyte Esterase 500 H Urine RBC > 100 SEEN Urine WBC 50-100 SEEN Ur Squamous Epith Cells 0 SEEN Urine Bacteria 4+ Urine Mucus 0 SEEN Discharge Plan Triage Chief Complaint: Syncope ED Provider: Ren Uriarte Dx/Rx/DC Orders Clinical Impression: Acute UTI, Syncope, Orthostasis, End-stage renal disease on hemodialysis Instructions: Urinary Tract Infections in Men, Causes of Syncope, ED Hypotension, Orthostatic Prescriptions: New cefdinir 300 mg capsule 300 mg PO Q12H Qty: 14 0RF Discontinued ciprofloxacin HCl [Cipro] 500 mg tablet 500 mg PO BID 10 Days Qty: 20 0RF No Action oseltamivir [Tamiflu] 30 mg capsule 30 mg PO UD 3 Days Qty: 3 0RF Rx Instructions: Take 1 after each dialysis for a total of 3 doses prednisone 20 mg tablet 20 mg PO DAILY Qty: 7 0RF midodrine 5 mg tablet 5 mg PO BID levothyroxine 88 mcg tablet 88 mcg PO DAILY nystatin 100,000 unit/gram cream 1 applic topical BID PRN (Reason: skin irritation) oxybutynin chloride 5 mg tablet 5 mg PO BID sevelamer carbonate 800 mg tablet 800 mg PO TIDCM allopurinol 100 mg tablet 100 mg PO DAILY simvastatin 20 mg tablet 20 mg PO QPM sertraline 50 mg tablet 50 mg PO DAILY Primary Care Provider: Ata Hernandez Referrals: Ata Hernandez MD [Primary Care Provider] - 3-5 Days Activity Restrictions/Additional Instructions: Your labs are stable urine with infection urine culture from 3 days positive for Pseudomonas resistant to your Cipro. Stop your Cipro. You are given IV Rocephin. Take new antibiotic prescribed. He will like to have your home nurse change her Torres catheter, if this changes soon as possible. If you develop any worsening symptoms, return to the ED for reevaluation. Print Language: Kiswahili Disposition Disposition: Home, Self Care
[2024-08-16] MEDS: 0.9% Normal Saline (500mL Bag) 500 ML 1000 ML IV (18:48)
[2024-08-16 19:45] LABS: Anion Gap 16 (5-15); BUN 23 mg/dL (4-19); BUN/Creat Ratio 7.6 RATIO (10-20); Calcium,Total 9.8 mg/dL (7.6-11.0); Carbon Dioxide 26.3 mmol/L (21.0-32.0); Chloride 96 mmol/L (98-108); Creatinine, Serum 2.96 mg/dL (0.70-1.20); EST Glomerular Filtration Rate 21 (>60); Estimated Creatinine Clearance 25.11 ml/min (50-250); Glucose 107 mg/dL (70-99); Potassium 4.1 mmol/L (3.3-5.1); Sodium Level 139 mmol/L (133-145)
[2024-08-16 21:13] LABS: Mucous, Urine 0 SEEN /hpf (<or=2+); Squamous Epithelial Cells - UA 0 SEEN /hpf (0-5)
[2024-08-16 21:19] LABS: Color, Urine Red (Yellow); Glucose, Dipstick Normal (Normal); Ketone-Dipstick Negative (Negative); Leukocyte Esterase-Dipstick 500 /ul (Negative); Nitrite-Dipstick Positive (Negative); Occult Blood-Urine 250 /ul (Negative); Protein-Dipstick 500 mg/dl (Negative); Urine Bilirubin Dipstick Negative (Negative); Urine Clarity Cloudy (Clear); Urine Urobilinogen Normal (Normal)
[2024-08-16] MEDS: Ceftriaxone 1 GM/50 ML BAG IV (22:02)
--- NOTE | 2024-08-16 22:30 | ED.RN ---
[facility]ed [facility] @ 2211 to arrange transport for pt back home, spoke to Harjeet. Requested pt to go by cot, they explained if no one would be home to receive pt they could not take him via cot. Requested to go by w/c van instead due to pt not having assistive device here with him. They explained if he needed any help up the steps they could not provide that, and unless someone could be there to help him, the ride would have to be pushed back to morning when his home health nurse arrives. pt has no one able to meet him at his home tonight to do so, ride eta pushed to 1000 when home nurse will arrive and be able to assist and receive pt.
[2024-08-16 22:33] LABS: Bacteria 4+ /hpf (None Seen); Red Blood Cells-Urine > 100 SEEN /hpf (0-5); White Blood Cells 50-100 SEEN /hpf (0-5)
--- NOTE | 2024-08-16 22:55 | ED.RN ---
Pt. updated that his ride would not be here until the morning d/t no one being able to receive him. Pt. removed from monitor for but updated we will be in to check vital signs. Pt. given fresh water, blanket and pillow. Lights turned off and call light within reach. Voices no need for anything else at this time. PIV was not removed d/t pt. being a difficult IV stick. Will report in hand off that IV needs removed upon squad arrival in morning.
[2024-08-16 22:57] VITALS: BP 134/84; PULSE 89; RESP 20; O2SAT 97
[2024-08-17 00:57] VITALS: BP 131/74; PULSE 91; RESP 18; O2SAT 98
[2024-08-17 02:00] VITALS: PULSE 88; RESP 18; O2SAT 95
[2024-08-17 04:00] VITALS: PULSE 82; RESP 16; O2SAT 98
[2024-08-17 08:00] VITALS: PULSE 78; RESP 16; O2SAT 96
[2024-08-17 10:00] VITALS: BP 134/78; PULSE 64; RESP 18; O2SAT 98
== END 2024-08-17 10:19 | disposition home or self-care (01) ==
PROVIDERS: Emergency Provider Emergency Medicine; Visit Provider Emergency Medicine
DX: N39.0 Urinary tract infection, site not specified (principal); N18.6 End stage renal disease; C61 Malignant neoplasm of prostate; R55 Syncope and collapse; Z87.891 Personal history of nicotine dependence; Z99.2 Dependence on renal dialysis
CPT/HCPCS: 80048; 81001; 85025; 93005; 96365; 99285; A4216

== ENCOUNTER → 2024-09-24 | Outpatient (CLI) | payer MEDICARE, MEDICAID, SELFPAY ==
[2024-09-24 19:18] LABS: Absolute Lymphocyte Count 1.29 X10^3/uL (0.83-4.51); Absolute Neutrophil Count 5.8 X10^3/uL (2.0-7.7); Basophil# 0.05 X10^3/uL; Basophil% 0.6 % (0-1); Eosinophil# 0.44 X10^3/uL; Eosinophils% 5.2 % (0-5); Hematocrit 35.4 % (40-54); Hemoglobin 10.9 g/dL (13.0-16.5); Lymphocyte # 1.29 X10^3/ul (0.83-4.51); Lymphocyte % 15.4 % (19-41); Mean Corp Hgb Conc 30.8 g/dL (32-36); Mean Corpuscular Hgb 29.8 pg (27.0-32.0); Mean Corpuscular Volume 96.7 fL (80-94); Mean Platelet Vol. 11.6 fl (6.2-12.0); Monocyte# 0.81 X10^3/uL; Monocyte% 9.6 % (0-10); NRBC Flagged by Analyzer 0 % (0-5); Neutrophil # 5.78 X10^3/uL (2.7-7.7); Neutrophil % 68.8 % (47-70); Platelet Count 225 K/mm3 (150-450); RBC Distribution Width CV 16.5 % (11.6-14.6); RBC Distribution Width SD 59.1 fl (35.1-43.9); Red Blood Count 3.66 M/mm3 (4.6-6.2); White Blood Count 8.4 K/mm3 (4.4-11.0)
[2024-09-24 20:37] LABS: BUN 14 mg/dL (4-19)
[2024-09-24 20:39] LABS: BUN 52 mg/dL (4-19); Potassium 5.7 mmol/L (3.3-5.1)
== END | disposition home or self-care (01) ==
LOC: LABSPEC 17:42
PROVIDERS: Visit Provider Internal Medicine Nephrology
DX: N18.6 End stage renal disease (principal); D63.1 Anemia in chronic kidney disease; Z99.2 Dependence on renal dialysis
CPT/HCPCS: 84132; 84520; 85025

== ENCOUNTER 2024-10-22 15:30 | Emergency (ER) | payer MEDICARE, MEDICAID, SELFPAY ==
[2024-10-22 15:31] VITALS: BP 110/74; PULSE 104; RESP 24; TEMP 35.9; O2SAT 93
[2024-10-22 15:33] VITALS: BMI 32.2
--- NOTE | 2024-10-22 16:03 | EX.ED.DYSGE1 ---
HPI History of Present Illness Chief Complaint: Complaint Informant: patient Narrative Narrative: 79-year-old male with chronic indwelling Torres catheter last replaced 1 month ago presenting to the ER because he was told to regarding an abnormal CT scan that he had yesterday. States he was at dialysis today, finished it up without any issues and that is where he was when they called him about his CT scan and told him to go to the nearest ER immediately. States he feels fine. Does not have any abdominal pain, back pain, vomiting. States in the last day or so his urine has become opaque and white he is concerned maybe an infection because of the appearance of it, which is unusual. He states is also just today he has also had decreased urine output in the catheter bag, denies any leakage around the catheter. No blood or bleeding. Other than the heparin during dialysis he is on no anticoagulants. He states the CT showed that both of his kidneys were swollen and that the catheter is in bed position. He said he had an ultrasound first and then the CT scan and when asked why he had those, he states he is scheduled for upcoming procedures including a suprapubic catheter and changing of right ureteral stent. [facility] Medical History Hypoxia SOB (shortness of breath) Influenza A Dialysis patient Kidney disease Hepatitis Former smoker Hypertension ESRD on hemodialysis AV fistula End-stage renal disease Hyperlipidemia History of recurrent UTIs Chronic indwelling Torres catheter Urinary retention Prostate cancer Candidiasis, intertrigo Orthostatic hypotension Hypothyroidism Gout Obesity (BMI 30.0-34.9) Home Medications ?Medication ?Instructions ?Recorded ?Last Taken ?Type allopurinol 100 mg tablet 100 mg PO DAILY gout 06/03/24 10/22/24 History levothyroxine 88 mcg tablet 88 mcg PO DAILY thyroid 06/03/24 10/22/24 History midodrine 5 mg tablet 5 mg PO BID blood pressure 06/03/24 10/22/24 History sertraline 50 mg tablet 50 mg PO DAILY mental health 06/03/24 10/22/24 History sevelamer carbonate 800 mg tablet 800 mg PO TIDCM blood pressure 06/03/24 10/22/24 History simvastatin 20 mg tablet 20 mg PO QPM cholesterol 06/03/24 10/21/24 History calcitriol 0.25 mcg capsule 0.25 mcg PO DAILY 10/22/24 Unknown History ciprofloxacin HCl 500 mg tablet 500 mg PO BID #14 TABLETS 10/22/24 Unknown Rx Allergy/AdvReac Type Severity Reaction Status Date / Time iodine Allergy Intermediate Hives Verified 10/22/24 15:31 Family History Other Heart disease Hypertension Surgical History History of left hip hemiarthroplasty History of prostate surgery Social History household members: none Smoking Status: Former smoker alcohol intake: never substance use type: does not use additional social history: Ambulates with a wheeled walker at baseline ROS ROS ED Constitutional Constitutional ED: Denies chills or fever(s) Eyes Eyes: Denies change in vision or diplopia ENT ENT ED: Denies rhinorrhea or sore throat Cardiovascular Cardiovascular: Denies chest pain or palpitations Respiratory/Chest Respiratory/Chest: Denies cough or dyspnea Gastrointestinal Gastrointestinal: Denies abdominal pain, diarrhea, nausea or vomiting Genitourinary Genitourinary ED: Reports as per HPI; Denies dysuria or hematuria Musculoskeletal Musculoskeletal: Denies back pain or neck pain Integumentary Denies abscess or rash Neurologic Neurologic: Denies headache(s), paresthesias or weakness Psychiatric Psychiatric: Denies anxiety or suicidal thoughts EXAM Physical Exam Const Vital Signs: 10/22/24 15:31 10/22/24 17:30 10/22/24 19:00 Temperature 96.7 F L Temperature Source Temporal Pulse Rate 104 H 74 78 Respiratory Rate 24 H 18 15 Blood Pressure 110/74 135/55 H 145/55 H Blood Pressure Mean 86 81 85 Pulse Ox 93 98 98 Oxygen Delivery Method Room Air Room Air Room Air Positive well nourished, well developed and obese General Appearance ED: well developed and NAD Nutritional Appearance: obese HEENT Reports moist mucous membranes normocephalic and atraumatic Eyes PERRL and EOMs intact bilaterally Neck full ROM and supple Resp normal respiratory effort and clear to auscultation bilaterally Cardio regular rate, regular rhythm and no murmurs GI non-tender and non-distended Auscultation: normoactive bowel sounds Palpation: soft Narrative: Torres catheter in place, there is opaque white urine within it in the bag, 75-100 cc. No blood. Back/Spine no CVA tenderness General Back: other FROM Extremity normal to inspection Extremity Narrative: Good thrill right AC fossa fistula, bandages in place no active bleeding. Good pulses distally. General Extremety ED: Negative for edema, pulses abnormal or tenderness General Extremity: Negative for edema or pulses abnormal Neuro oriented x3, CN's II-XII intact bilaterally and no sensory deficits noted Sensorium / Orientation: awake and alert Motor Exam: strength 5/5 throughout Skin no rashes or lesions noted and no wounds MDM MDM MDM Narrative Medical decision making narrative: I had nursing problem solve the catheter by first withdrawing the contents of the balloon to see if it was competent, had enough water, etc. They withdrew only 6 mL of red fluid suggesting it had a hole in it. Therefore they replaced the catheter, inserting it all of the way and having no drainage, however he just had a catheter and we assumed his bladder was empty so the balloon was inflated without causing any discomfort or pain to the patient from the balloon, although inserting the catheter was sore and painful as usual he said not as bad as it had been in the past. For the next hour there was no drainage. His blood work is unremarkable except for chronic renal sufficiency that has been worse in the past, he has a mildly elevated lactic acid but not a leukocytosis. His urine is white. It shows indicators of infection and pyuria so I did treat him empirically with Rocephin. His vital signs remained stable and unremarkable and he remained relatively asymptomatic except for little bit of soreness in the penis which I inspected, there is no active discharge around it. I obtained a CT, I reviewed the images, he does appear to have hydronephrosis and hydroureter bilaterally similar to the report that I reviewed from outside facility yesterday, and the balloon from the catheter does not appear to be in the bladder it appears to be distal. He is going to need transfer to a tertiary care center in case he needs a percutaneous nephrostomy. The patient agrees and states this is what his doctor told him, but he decided to come to the nearest ER instead because it was in [place] where they wanted him to go, his urologist is at [facility] in [place], [place], Dr. Mei. I spoke with the on-call physician with their group. Discussed the scenario, even the fact that the patient has not made any urine with the new catheter but he is not having significant discomfort, as he is a dialysis patient the urologist said it was okay to still let him go and agreed with putting him on antibiotics as all of this appears to be chronic. I had already paged [facility] and actually spoke with urologist there who looked at some data showing that he had a left percutaneous nephrostomy couple years ago that did not improve his kidney function so it was removed, he has been on dialysis ever since, and that was back in 2022 and agrees that this is all chronic and that he can safely follow-up. Patient is okay with that. I did review some old urine cultures that we had, they both showed Pseudomonas aeruginosa, one of them resistant to everything oral on the sensitivity spectrum and the other sensitive to Cipro which is what I am starting him on after IV Rocephin. History & Record Review Additional record(s) reviewed:: Prior outpatient record (prior urine cultures) and Other (Outpatient [facility] from yesterday 10/21: Torres balloon inflated within prostate; severe bilateral hydronephrosis and proximal hydroureter with bilateral renal atrophy and right double-J ureteric stent in satisfactory position right distal hydroureter terminates several centimeters above right U) Lab Data Attestation: I reviewed the patient's lab results. Labs: Laboratory Results - last 24 hr 10/22/24 10/22/24 16:23 16:38 WBC 7.7 RBC 4.25 L Hgb 12.6 L Hct 40.4 MCV 95.1 H MCH 29.6 MCHC 31.2 L RDW Std Deviation 53.5 H RDW Coeff of Filomena 15.3 H Plt Count 247 MPV 10.3 Immature Gran % (Auto) 0.300 Neut % (Auto) 69.0 Lymph % (Auto) 19.4 [place] % (Auto) 7.9 Eos % (Auto) 2.6 Baso % (Auto) 0.8 Absolute Neuts (auto) 5.3 Absolute Lymphs (auto) 1.49 Nucleated RBC % 0 Sodium 137 Potassium 3.8 Chloride 95 L Carbon Dioxide 27.0 Anion Gap 14 BUN 25 H Creatinine 3.46 H Estim Creat Clear Calc 21.65 L Est GFR (MDRD) Non-Af 17 L BUN/Creatinine Ratio 7.1 L Glucose 138 H Lactic Acid 2.2 H* Calcium 9.1 Urine Color Straw Urine Clarity Turbid Urine pH 7.0 Ur Specific [place] 1.015 Urine Protein 100 H Urine Glucose (UA) Normal Urine Ketones Negative Urine Occult Blood 150 H Urine Nitrite Negative Urine Bilirubin Negative Urine Urobilinogen Normal Ur Leukocyte Esterase 500 H Urine RBC 0 SEEN Urine WBC >100 SEEN Ur Squamous Epith Cells 0 SEEN Urine Bacteria 2+ Urine Mucus 0 SEEN Radiography Diagnostic Testing: Clinical Impression(s) from Imaging Studies Abdomen/Pelvis CT 10/22/24 17:32 IMPRESSION: 1. Severe right and moderate left hydroureteronephrosis, with decompressed distal ureters. Findings are not significantly changed from CT on 06/29/2024. There is a right ureteral stent in unchanged position. 2. Torres catheter balloon appears to be low in positioning, possibly within the prostate. Consider repositioning. 3. Nonobstructing stones in the left kidney, also unchanged. 4. Colonic diverticulosis. Reading Location: [id number] Management Discussion w/another healthcare provider: Periodontist (urology x 2) Discharge Plan Triage Chief Complaint: Complaint ED Provider: Koffi Coffman Dx/Rx/DC Orders Clinical Impression: Catheter-associated urinary tract infection, End-stage renal disease, Bilateral hydronephrosis Instructions: ED Bladder Infection, Male (Adult) Prescriptions: New ciprofloxacin HCl 500 mg tablet 500 mg PO BID Qty: 14 0RF No Action calcitriol 0.25 mcg capsule 0.25 mcg PO DAILY Patient Comments: PT NT SURE IF HE TAKES midodrine 5 mg tablet 5 mg PO BID levothyroxine 88 mcg tablet 88 mcg PO DAILY sevelamer carbonate 800 mg tablet 800 mg PO TIDCM allopurinol 100 mg tablet 100 mg PO DAILY simvastatin 20 mg tablet 20 mg PO QPM sertraline 50 mg tablet 50 mg PO DAILY Primary Care Provider: Ata Hernandez Referrals: Dr. mei [Other] (Urology - after the weekend; call for follow up) Activity Restrictions/Additional Instructions: If you start having severe muscle aches especially in your legs while on the antibiotic, discontinue it immediately and call your doctor. Print Language: Yakut Disposition Disposition: Home, Self Care
[2024-10-22 16:27] LABS: Mucous, Urine 0 SEEN /hpf (<or=2+); Red Blood Cells-Urine 0 SEEN /hpf (0-5); Squamous Epithelial Cells - UA 0 SEEN /hpf (0-5)
[2024-10-22 16:31] LABS: Color, Urine Straw (Yellow); Glucose, Dipstick Normal (Normal); Ketone-Dipstick Negative (Negative); Leukocyte Esterase-Dipstick 500 /ul (Negative); Nitrite-Dipstick Negative (Negative); Occult Blood-Urine 150 /ul (Negative); Protein-Dipstick 100 mg/dl (Negative); Specific Gravity, Urine 1.015 (1.002-1.030); Urine Bilirubin Dipstick Negative (Negative); Urine Clarity Turbid (Clear); Urine Urobilinogen Normal (Normal)
[2024-10-22 16:51] LABS: Absolute Lymphocyte Count 1.49 X10^3/uL (0.83-4.51); Absolute Neutrophil Count 5.3 X10^3/uL (2.0-7.7); Basophil# 0.06 X10^3/uL; Basophil% 0.8 % (0-1); Eosinophils% 2.6 % (0-5); Hematocrit 40.4 % (40-54); Hemoglobin 12.6 g/dL (13.0-16.5); Lymphocyte # 1.49 X10^3/ul (0.83-4.51); Lymphocyte % 19.4 % (19-41); Mean Corp Hgb Conc 31.2 g/dL (32-36); Mean Corpuscular Hgb 29.6 pg (27.0-32.0); Mean Corpuscular Volume 95.1 fL (80-94); Mean Platelet Vol. 10.3 fl (6.2-12.0); Monocyte# 0.61 X10^3/uL; Monocyte% 7.9 % (0-10); NRBC Flagged by Analyzer 0 % (0-5); Neutrophil # 5.32 X10^3/uL (2.7-7.7); Platelet Count 247 K/mm3 (150-450); RBC Distribution Width CV 15.3 % (11.6-14.6); RBC Distribution Width SD 53.5 fl (35.1-43.9); Red Blood Count 4.25 M/mm3 (4.6-6.2); White Blood Count 7.7 K/mm3 (4.4-11.0)
[2024-10-22 17:05] LABS: White Blood Cells >100 SEEN /hpf (0-5)
[2024-10-22 17:06] LABS: Bacteria 2+ /hpf (None Seen)
[2024-10-22 17:11] LABS: Anion Gap 14 (5-15); BUN 25 mg/dL (4-19); BUN/Creat Ratio 7.1 RATIO (10-20); Calcium,Total 9.1 mg/dL (7.6-11.0); Chloride 95 mmol/L (98-108); Creatinine, Serum 3.46 mg/dL (0.70-1.20); EST Glomerular Filtration Rate 17 (>60); Estimated Creatinine Clearance 21.65 ml/min (50-250); Glucose 138 mg/dL (70-99); Potassium 3.8 mmol/L (3.3-5.1); Sodium Level 137 mmol/L (133-145)
[2024-10-22 17:26] LABS: Lactic Acid 2.2 mmol/L (0.0-2.0)
[2024-10-22 17:30] VITALS: BP 135/55; PULSE 74; RESP 18; O2SAT 98
--- NOTE | 2024-10-22 17:32 | CT_ITS ---
PROCEDURE: ABDOMEN/PELVIS WITHOUT CONT 10/22/2024 REASON FOR EXAM: LUTHER NO FLOW, RIGHT URETERAL STENT TECHNIQUE: Abdomen and pelvis CT without intravenous contrast. Noncontrast technique limits evaluation of the abdominal and pelvic viscera. Coronal and Sagittal reconstruction series were provided. One or more dose reduction techniques were used (e.g., Automated exposure control, adjustment of the mA and/or kV according to patient size, use of iterative reconstruction technique). PATIENT PREPARATION: Per protocol CTDIvol: 19.4 mGy DLP: 1183 mGy-cm COMPARISON: CT abdomen and pelvis on 06/29/2024 FINDINGS: Patient positioning limits this evaluation. Lung bases: No focal consolidation. Multivessel coronary calcifications. Bilateral gynecomastia. Liver: Unremarkable. Gallbladder: Unremarkable. Spleen: Normal size. Pancreas: Normal size. No surrounding inflammation. Adrenals: Unremarkable. Kidneys: Bilateral renal cortical atrophy. Right-sided ureteral stent with pigtails formed in the right renal pelvis and urinary bladder. There is severe right and moderate left hydroureteronephrosis. The distal ureters are decompressed. Nonobstructing stone stones in the left kidney, the largest at the lower pole measuring 7 mm, unchanged. Bladder: Collapsed, limiting evaluation. The urinary catheter balloon appears to be low in position, likely within the prostate. Bowel: No obstruction or inflammation. Unremarkable appendix. Colonic diverticulosis. Lymph nodes: No significant lymphadenopathy. Vasculature: Mild diffuse atherosclerotic calcifications are noted. Bones: Left total hip arthroplasty. Degenerative changes of the spine and sacroiliac joints. CT/Abdomen/Pelvis without Cont IMPRESSION: 1. Severe right and moderate left hydroureteronephrosis, with decompressed dis jovita ureters. Findings are not significantly changed from CT on 06/29/2024. There is a right ureteral stent in unchanged po sition. 2. Luther catheter balloon appears to be low in positioning, possibly within th e prostate. Consider repositioning. 3. Nonobstructing stones in the left kidney, also unchanged. 4. Colonic diverticulosis. Reading Location: [id number]
[2024-10-22] MEDS: Ceftriaxone 1 GM/50 ML BAG IV (17:55)
[2024-10-22 19:00] VITALS: BP 145/55; PULSE 78; RESP 15; O2SAT 98
[2024-10-22] MEDS: Ciprofloxacin 500 MG Tablet PO (19:45)
[2024-10-22 19:59] VITALS: BP 153/72; PULSE 79; RESP 18; TEMP 36.6; O2SAT 94
[2024-10-22 20:43] LABS: Reflex Lactate? Y
[2024-10-22 21:00] VITALS: BP 155/92; PULSE 80; RESP 15; O2SAT 94
== END 2024-10-22 23:12 | disposition home or self-care (01) ==
PROVIDERS: Emergency Provider Emergency Medicine; Visit Provider Emergency Medicine
DX: T83.511A Infection and inflammatory reaction due to indwelling urethral catheter, initial encounter (principal); N18.6 End stage renal disease; I12.0 Hypertensive chronic kidney disease with stage 5 chronic kidney disease or end stage renal disease; N13.2 Hydronephrosis with renal and ureteral calculous obstruction; Z87.891 Personal history of nicotine dependence; Z79.899 Other long term (current) drug therapy; X58.XXXA Exposure to other specified factors, initial encounter
CPT/HCPCS: 74176; 80048; 81001; 83605; 85025; 87077; 87086; 87088; 87186; 96365; 96366; 99283; A4216

== ENCOUNTER 2024-11-09 13:15 | Emergency (ER) | payer MEDICARE, MEDICAID, SELFPAY ==
[2024-11-09 13:16] VITALS: BP 118/71; PULSE 101; RESP 18; TEMP 36.8; O2SAT 93
[2024-11-09 13:20] VITALS: BMI 32.8
[2024-11-09 14:20] VITALS: BP 136/68; PULSE 88; RESP 16; TEMP 36.6; O2SAT 95
[2024-11-09 15:00] VITALS: BP 111/60; PULSE 82; RESP 17; TEMP 36.4; O2SAT 93
--- NOTE | 2024-11-09 15:39 | ED.RN ---
per dr miguel. flushed suprapubic catheter. flushed without difficulty. pt felt bladder spasms and saline which flushed tube came out urethra
[2024-11-09 16:39] LABS: Mucous, Urine 0 SEEN /hpf (<or=2+); Squamous Epithelial Cells - UA 0 SEEN /hpf (0-5)
--- NOTE | 2024-11-09 16:46 | EX.ED.DYSGE1 ---
HPI History of Present Illness Chief Complaint: Torres C/O Informant: patient Narrative Narrative: Presents with Torres catheter dysfunction. Suprapubic cath placed a week ago in [place]. Chronic Torres due to prostate cancer states had multiple surgeries in the past. Hypertension he states he had a dressing change by nursing this past 5 days ago since then having difficulties. States the strap placed on his leg with slide. Today would not drain much having suprapubic discomfort on arrival to the ED he states started to have mild drainage. He has dialysis makes urine had dialysis yesterday. She reported there was blood in his Torres catheter. Denies any anticoagulants. Blood has cleared up. [facility] Medical History History of ESBL E. coli infection Hypoxia SOB (shortness of breath) Influenza A Dialysis patient Kidney disease Hepatitis Former smoker Hypertension ESRD on hemodialysis AV fistula End-stage renal disease Hyperlipidemia History of recurrent UTIs Chronic indwelling Torres catheter Urinary retention Prostate cancer Candidiasis, intertrigo Orthostatic hypotension Hypothyroidism Gout Obesity (BMI 30.0-34.9) Home Medications ?Medication ?Instructions ?Recorded ?Last Taken ?Type allopurinol 100 mg tablet 100 mg PO DAILY gout 06/03/24 11/09/24 History levothyroxine 88 mcg tablet 88 mcg PO DAILY thyroid 06/03/24 11/09/24 History midodrine 5 mg tablet 5 mg PO BID blood pressure 06/03/24 11/09/24 History sertraline 50 mg tablet 50 mg PO DAILY mental health 06/03/24 11/09/24 History simvastatin 20 mg tablet 20 mg PO QPM cholesterol 06/03/24 11/08/24 History calcitriol 0.25 mcg capsule 0.25 mcg PO DAILY 10/22/24 11/09/24 History cefdinir 300 mg capsule 300 mg PO Q12H #14 caps 11/09/24 Unknown Rx Allergy/AdvReac Type Severity Reaction Status Date / Time iodine Allergy Intermediate Hives Verified 11/09/24 13:16 Family History Other Heart disease Hypertension Surgical History History of left hip hemiarthroplasty History of prostate surgery Social History household members: none Smoking Status: Former smoker alcohol intake: never substance use type: does not use additional social history: Ambulates with a wheeled walker at baseline ROS ROS ED Constitutional Constitutional ED: Denies fever(s) Cardiovascular Cardiovascular: Denies chest pain Respiratory/Chest Respiratory/Chest: Denies cough Gastrointestinal Gastrointestinal: Reports abdominal pain; Denies diarrhea or vomiting Genitourinary Genitourinary ED: Reports other Details: Torres catheter dysfunction Musculoskeletal Musculoskeletal: Denies none Integumentary Denies rash or wounds Neurologic Neurologic: Denies weakness EXAM Physical Exam Const Vital Signs: 11/09/24 13:16 11/09/24 14:20 11/09/24 15:00 Temperature 98.3 F 97.8 F 97.5 F L Temperature Source Temporal Oral Oral Pulse Rate 101 H 88 82 Respiratory Rate 18 16 17 Blood Pressure 118/71 136/68 H 111/60 Blood Pressure Mean 86 90 77 Pulse Ox 93 95 93 Oxygen Delivery Method Room Air Room Air Room Air Positive well nourished and well developed General Appearance ED: well developed HEENT normocephalic and atraumatic Eyes General Eye ED: Yes normal appearance of both eyes Neck full ROM Resp normal respiratory effort and normal air movement Cardio regular rate and regular rhythm GI soft to palpation GI Narrative: Tender suprapubic no distention. Suprapubic cath orifice clean, dry intact there was dressing with dry drainage that was removed. Narrative: Torres catheter with minimal urine in the bag. Extremity normal to inspection and full ROM Neuro oriented x3 Skin Skin Narrative: See above. MDM MDM MDM Narrative Medical decision making narrative: Interventions / MDM: Differential diagnosis: Torres catheter dysfunction, end-stage renal disease on hemodialysis, UTI Diagnosis considered but do not suspect: N/A My EKG interpretation: N/A Imaging independently reviewed and interpreted by myself: N/A External documents reviewed: N/A Test considered but not ordered:N/A ED course: Patient nontoxic vital stable. I removed the dry dressing, gentle manipulation Torres catheter there is no resistance. Will have nursing flush the Torres catheter, will send for urine with culture. Nursing flushed with no difficulties and draining. 1645: Patient clinically feeling better. Awaiting urine results. 1745: urine noting signs of infection culture pending. Started on cefdinir. No active bleeding noted clinically nontoxic do not feel blood work or was necessary. Due to suprapubic cath being placed a week ago, this would not be exchanged emergency department. He will follow-up with his urologist. Discussed return precautions. All questions were answered. Re-evaluation: stable Disposition discussed with patient/family/significant other: Patient Case discussed with consulting clinician: N/A This note was generated with [employer] dictation software. It may contain incorrect words, spelling, and punctuation that were not noted in checking the note before signing. Lab Data Attestation: I reviewed the patient's lab results. Labs: Laboratory Results - last 24 hr 11/09/24 16:20 Urine Color Straw Urine Clarity Turbid Urine pH 8.0 Ur Specific [place] 1.010 Urine Protein 100 H Urine Glucose (UA) Normal Urine Ketones Negative Urine Occult Blood 250 H Urine Nitrite Negative Urine Bilirubin Negative Urine Urobilinogen Normal Ur Leukocyte Esterase 500 H Discharge Plan Triage Chief Complaint: Torres C/O ED Provider: Ren Uriarte Dx/Rx/DC Orders Clinical Impression: Catheter-associated urinary tract infection, Suprapubic catheter dysfunction Instructions: Urinary Tract Infections in Men, Suprapubic Catheter Dc Prescriptions: New cefdinir 300 mg capsule 300 mg PO Q12H Qty: 14 0RF No Action calcitriol 0.25 mcg capsule 0.25 mcg PO DAILY Patient Comments: PT NT SURE IF HE TAKES midodrine 5 mg tablet 5 mg PO BID levothyroxine 88 mcg tablet 88 mcg PO DAILY allopurinol 100 mg tablet 100 mg PO DAILY simvastatin 20 mg tablet 20 mg PO QPM sertraline 50 mg tablet 50 mg PO DAILY Primary Care Provider: Ata Hernandez Referrals: Ata Hernandez MD [Primary Care Provider] - Activity Restrictions/Additional Instructions: Urine with signs of infection urine culture sent and pending. Take and finish antibiotics prescribed. Follow-up with your urologist. You develop any fevers or worsening symptoms, return to the ED for reevaluation. Print Language: Wolof Disposition Disposition: Home, Self Care
[2024-11-09 17:15] LABS: Color, Urine Straw (Yellow); Glucose, Dipstick Normal (Normal); Ketone-Dipstick Negative (Negative); Leukocyte Esterase-Dipstick 500 /ul (Negative); Nitrite-Dipstick Negative (Negative); Occult Blood-Urine 250 /ul (Negative); Protein-Dipstick 100 mg/dl (Negative); Urine Bilirubin Dipstick Negative (Negative); Urine Clarity Turbid (Clear); Urine Urobilinogen Normal (Normal)
[2024-11-09] MEDS: Cefdinir 300 MG Capsule PO (17:45)
[2024-11-09 17:47] VITALS: BP 140/80; PULSE 69; RESP 16; TEMP 36.3; O2SAT 95
[2024-11-09 17:48] LABS: White Blood Cells >100 SEEN /hpf (0-5)
[2024-11-09 17:50] LABS: Bacteria 1+ /hpf (None Seen); Red Blood Cells-Urine 25-50 SEEN /hpf (0-5)
== END 2024-11-09 17:58 | disposition home or self-care (01) ==
PROVIDERS: Emergency Provider Emergency Medicine; Visit Provider Emergency Medicine
DX: T83.098A Other mechanical complication of other urinary catheter, initial encounter (principal); N18.6 End stage renal disease; I12.0 Hypertensive chronic kidney disease with stage 5 chronic kidney disease or end stage renal disease; T83.511A Infection and inflammatory reaction due to indwelling urethral catheter, initial encounter; X58.XXXA Exposure to other specified factors, initial encounter; N39.0 Urinary tract infection, site not specified; E78.5 Hyperlipidemia, unspecified; Z99.2 Dependence on renal dialysis; Z79.899 Other long term (current) drug therapy; Z87.891 Personal history of nicotine dependence
CPT/HCPCS: 81001; 87077; 87086; 87088; 87186; 99282

== ENCOUNTER 2024-12-01 10:51 | Emergency (ER) | payer MEDICARE, MEDICAID, SELFPAY ==
[2024-12-01] VITALS (8 sets, daily range): BP systolic 108–143; BP diastolic 49–99; PULSE 72–86; RESP 14–18; TEMP 36.6–37; O2SAT 90–96; BMI 33.5
--- NOTE | 2024-12-01 11:14 | EX.ED.DYSGE1 ---
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 Mei in [place] within the last 6 weeks presents with symptoms of not feeling well, no fever or chills. He has had decreased appetite. He states that his suprapubic catheter got pulled on Friday at dialysis. Since then it has been cloudy and bloody in its drainage. [facility] Medical History History of ESBL E. coli infection Hypoxia SOB (shortness of breath) Influenza A Dialysis patient Kidney disease Hepatitis Former smoker Hypertension ESRD on hemodialysis AV fistula End-stage renal disease Hyperlipidemia History of recurrent UTIs Chronic indwelling Torres catheter Urinary retention Prostate cancer Candidiasis, intertrigo Orthostatic hypotension Hypothyroidism Gout Obesity (BMI 30.0-34.9) Home Medications ?Medication ?Instructions ?Recorded ?Last Taken ?Type allopurinol 100 mg tablet 100 mg PO DAILY gout 06/03/24 12/01/24 History levothyroxine 88 mcg tablet 88 mcg PO DAILY thyroid 06/03/24 12/01/24 History midodrine 5 mg tablet 5 mg PO BID blood pressure 06/03/24 12/01/24 History sertraline 50 mg tablet 50 mg PO DAILY mental health 06/03/24 12/01/24 History simvastatin 20 mg tablet 20 mg PO QPM cholesterol 06/03/24 11/30/24 History calcitriol 0.25 mcg capsule 0.25 mcg PO DAILY 10/22/24 11/09/24 History nitrofurantoin macrocrystal 100 mg 100 mg PO BID 7 days #14 caps 12/01/24 Unknown Rx capsule Allergy/AdvReac Type Severity Reaction Status Date / Time iodine Allergy Intermediate Hives Verified 12/01/24 10:53 Family History Other Heart disease Hypertension Surgical History History of left hip hemiarthroplasty History of prostate surgery Social History household members: none Smoking Status: Former smoker alcohol intake: never substance use type: does not use additional social history: Ambulates with a wheeled walker at baseline ROS ROS ED ROS Narrative Review of systems positive for cloudy urine/hematuria from suprapubic catheter. No fevers or chills. Positive malaise and decreased appetite. No exacerbating or alleviating factors. EXAM Physical Exam Narrative Exam Narrative: Afebrile. Vital signs noted. Nontoxic-appearing. Cardiovascular examination reveals regular rate and rhythm. Lungs are clear to auscultation bilaterally. Abdomen is soft and nontender with normal active bowel sounds. There is a suprapubic catheter in place more towards the right of the pubic area with sutures in place. This is draining cloudy, sanguinous urine. Neurological examination shows him to be awake, alert, answering questions appropriately. Const Vital Signs: 12/01/24 10:53 12/01/24 10:56 12/01/24 11:56 Temperature 98.6 F 98.6 F 97.8 F Temperature Source Oral Oral Oral Pulse Rate 86 83 78 Respiratory Rate 18 18 18 Blood Pressure 123/53 H 123/53 H 143/49 H Blood Pressure Mean 76 76 80 Pulse Ox 96 96 96 Oxygen Delivery Method Room Air Room Air Room Air Oxygen Flow Rate (L/min) 12/01/24 12:00 12/01/24 13:00 12/01/24 14:00 Temperature 97.9 F 98 F 98.2 F Temperature Source Oral Oral Oral Pulse Rate 79 72 74 Respiratory Rate 16 18 14 Blood Pressure 141/51 H 132/54 H 141/62 H Blood Pressure Mean 81 80 88 Pulse Ox 96 94 90 Oxygen Delivery Method Room Air Room Air Room Air Oxygen Flow Rate (L/min) 12/01/24 14:00 12/01/24 14:23 Temperature Temperature Source Pulse Rate Respiratory Rate Blood Pressure Blood Pressure Mean Pulse Ox 93 95 Oxygen Delivery Method Nasal Cannula Nasal Cannula Oxygen Flow Rate (L/min) 2 2 MDM MDM MDM Narrative Medical decision making narrative: Concern is for suprapubic catheter infection versus displacement versus abscess development postsurgically. He does not appear septic with normal blood pressure and not tachycardic initially. CT imaging without contrast will be obtained to look for suprapubic catheter placement. I will obtain basic laboratory work as well. Urinalysis was sent as well as urine culture. I reviewed his laboratory work and he has normal white count of 9.4 with hemoglobin 11.6, hematocrit 36.7, platelet count normal at 172. BUN is elevated at 43 with creatinine 4.56 consistent with his chronic kidney disease and end-stage renal disease and need for dialysis. Glucose 124 with anion gap normal at 14. Sodium normal at 138 potassium 4.7. 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 Ji. I reviewed his urinalysis and he has greater than 100 RBCs and greater then 100 WBCs with 0 squamous epithelial cells. This was sent for culture. He was given his first dose of ciprofloxacin. Although he has an elevated lactic acid of 2.5, when compared to prior labs it has been elevated at 2.2, and he is not meeting other SIRS criteria as he is not tachycardic or febrile and he does not have a leukocytosis. He feels well enough for discharge. I did review the CT of the abdomen and pelvis and the bladder is collapsed around the catheter. He does have persistent hydronephrosis but it is improved from prior. Although they say he may have enteritis, he is not showing any signs of this. At this point in time, through shared decision making, he would like outpatient trial of antibiotics. I feel he can be discharged to follow-up. He had been given a liter of IV fluids for his elevated lactic acid. In looking at his prior medication list, he has been put on ciprofloxacin previously as well for UTIs. However, I did review his most recent urine culture. Although he had EBSL Escherichia coli, it was resistant to ciprofloxacin levofloxacin and Bactrim. It was sensitive to nitrofurantoin. Although he has end-stage renal disease, I do feel that he can be given his first dose and put on this and follow-up for dialysis on Friday. Disposition is discharged home in stable condition. History & Record Review Discussion w/independent historian: Patient Lab Data Attestation: I reviewed the patient's lab results. Labs: Laboratory Results - last 24 hr 12/01/24 12/01/24 11:16 12:26 WBC 9.4 RBC 3.87 L Hgb 11.6 L Hct 36.7 L MCV 94.8 H MCH 30.0 MCHC 31.6 L RDW Std Deviation 57.6 H RDW Coeff of Filomena 16.9 H Plt Count 172 MPV 10.6 Immature Gran % (Auto) 0.300 Neut % (Auto) 79.8 H Lymph % (Auto) 9.4 L Cottle % (Auto) 9.1 Eos % (Auto) 1.0 Baso % (Auto) 0.4 Absolute Neuts (auto) 7.5 Absolute Lymphs (auto) 0.88 Nucleated RBC % 0 Sodium 138 Potassium 4.7 Chloride 97 L Carbon Dioxide 26.8 Anion Gap 14 BUN 43 H Creatinine 4.56 H Estim Creat Clear Calc 16.77 L Est GFR (MDRD) Non-Af 12 L BUN/Creatinine Ratio 9.3 L Glucose 124 H Lactic Acid 2.5 H* Calcium 9.3 Urine Color [place]ava Urine Clarity Turbid Urine pH 7.0 Ur Specific [place] 1.010 Urine Protein 500 H Urine Glucose (UA) Normal Urine Ketones Negative Urine Occult Blood 250 H Urine Nitrite Negative Urine Bilirubin Negative Urine Urobilinogen Normal Ur Leukocyte Esterase 500 H Urine RBC > 100 SEEN Urine WBC >100 SEEN Ur Squamous Epith Cells 0 SEEN Urine Bacteria 0 SEEN Urine Mucus 0 SEEN Radiography Diagnostic Testing: Clinical Impression(s) from Imaging Studies Abdomen/Pelvis CT 12/01/24 11:45 IMPRESSION: Persistent, though decreased hydronephrosis and hydroureter compared to the previous study. Stable appearance of a right-sided JJ stent. No obstructing calcifications identified. Findings likely due to extensive bladder outlet issues. Bladder is collapsed around a Torres catheter No free intraperitoneal fluid, air, or suspicious adenopathy. Nondistended fluid-filled bowel loops suggest diffuse enteritis. Scattered colonic diverticulosis without CT evidence of acute diverticulitis Diffuse atherosclerosis Degenerative bony changes Reading Location: [facility] Discharge Plan Triage Chief Complaint: Torres C/O ED Provider: Quinn Waddell Dx/Rx/DC Orders Clinical Impression: Catheter-associated urinary tract infection, End-stage renal disease, Elevated lactic acid level Instructions: ED Chronic Kidney Disease (CKD), ED Torres Catheter, Care, ED Bladder Infection, Male (Adult) Prescriptions: New nitrofurantoin macrocrystal 100 mg capsule 100 mg PO BID 7 Days Qty: 14 0RF Rx Instructions: must administer with a meal/food No Action calcitriol 0.25 mcg capsule 0.25 mcg PO DAILY Patient Comments: PT NT SURE IF HE TAKES midodrine 5 mg tablet 5 mg PO BID levothyroxine 88 mcg tablet 88 mcg PO DAILY allopurinol 100 mg tablet 100 mg PO DAILY simvastatin 20 mg tablet 20 mg PO QPM sertraline 50 mg tablet 50 mg PO DAILY Primary Care Provider: Ata Hernandez Referrals: Ata Hernandez MD [Primary Care Provider] - 3-5 Days Activity Restrictions/Additional Instructions: Antibiotics as directed. Follow-up with your urologist in [place]. Return with fever, new or worsening symptoms. Have your dialysis performed as scheduled on Friday. Print Language: Kazakh Disposition Disposition: Home, Self Care
[2024-12-01 11:28] LABS: Hematocrit 36.7 % (40-54); Hemoglobin 11.6 g/dL (13.0-16.5); Immature Granulocytes Count 0.030 X10^3/uL (0.0-0.0); Mean Corp Hgb Conc 31.6 g/dL (32-36); Mean Corpuscular Volume 94.8 fL (80-94); Mean Platelet Vol. 10.6 fl (6.2-12.0); NRBC Flagged by Analyzer 0 % (0-5); Platelet Count 172 K/mm3 (150-450); RBC Distribution Width CV 16.9 % (11.6-14.6); RBC Distribution Width SD 57.6 fl (35.1-43.9); Red Blood Count 3.87 M/mm3 (4.6-6.2); White Blood Count 9.4 K/mm3 (4.4-11.0)
--- NOTE | 2024-12-01 11:45 | CT_ITS ---
PROCEDURE: ABDOMEN/PELVIS WITHOUT CONT 12/01/2024 REASON FOR EXAM: Diffuse abdominal pain TECHNIQUE: ABDOMEN/PELVIS WITHOUT CONT Noncontrast technique limits evaluation of the abdominal and pelvic viscera. Coronal and Sagittal reconstruction series were provided. One or more dose reduction techniques were used (e.g., Automated exposure control, adjustment of the mA and/or kV according to patient size, use of iterative reconstruction technique). RADIATION DOSE SUMMARY: CTDlvol: 20.40 mGy DLP: 1233.39 mGycm COMPARISON: 10/22/2024 FINDINGS: Lung bases: Mild dependent atelectasis Liver: Normal size. No obvious mass. Gallbladder: Unremarkable Spleen: Normal size. Pancreas: Normal size. No surrounding inflammation. Adrenals: Unremarkable Kidneys: The amount of hydronephrosis in the right kidney is decreased since the previous study but there still at least moderate hydronephrosis. The right-sided JJ stent is stable and unchanged. No suspicious calcifications are noted along the course of the JJ stent. Left kidney again shows significant cortical thinning with nonobstructing renal stones and a dilated left renal pelvis and dilated left ureter. No obstructing stone is identified. The asymmetry of the hydronephrosis suggests significant bladder outlet issues. Bladder: Bladder is collapsed around a Torres catheter Bowel: Nondistended fluid-filled small and large bowel loops suggest diffuse enteritis. Scattered colonic diverticula without CT evidence of acute diverticulitis. Appendix: Not visualized No free intraperitoneal fluid, air, or suspicious adenopathy. Extensive atherosclerotic calcifications are present. Bony structures show degenerative change, replaced left hip joint free of complication Bones: Degenerative changes of the spine, and pelvis. CT/Abdomen/Pelvis without Cont IMPRESSION: Persistent, though decreased hydronephrosis and hydroureter compared to the pre vious study. Stable appearance of a right-sided JJ stent. No obstructing calcifications identified. Findings likely due to ex tensive bladder outlet issues. Bladder is collapsed around a Torres catheter No free intraperitoneal fluid, air, or suspicious adenopathy. Nondistended fluid-filled bowel loops suggest diffuse enteritis. Scattered col onic diverticulosis without CT evidence of acute diverticulitis Diffuse atherosclerosis Degenerative bony changes Reading Location: [id number]
[2024-12-01 12:09] LABS: Anion Gap 14 (5-15); BUN 43 mg/dL (4-19); BUN/Creat Ratio 9.3 RATIO (10-20); Calcium,Total 9.3 mg/dL (7.6-11.0); Carbon Dioxide 26.8 mmol/L (21.0-32.0); Chloride 97 mmol/L (98-108); Estimated Creatinine Clearance 16.77 ml/min (50-250); Glucose 124 mg/dL (70-99); Potassium 4.7 mmol/L (3.3-5.1)
[2024-12-01] MEDS: 0.9% Normal Saline (1000mL) 1,000 ML 999 ML IV (12:09)
[2024-12-01 12:31] LABS: Mucous, Urine 0 SEEN /hpf (<or=2+); Squamous Epithelial Cells - UA 0 SEEN /hpf (0-5)
[2024-12-01 12:57] LABS: Color, Urine Amber (Yellow); Glucose, Dipstick Normal (Normal); Ketone-Dipstick Negative (Negative); Leukocyte Esterase-Dipstick 500 /ul (Negative); Nitrite-Dipstick Negative (Negative); Occult Blood-Urine 250 /ul (Negative); Protein-Dipstick 500 mg/dl (Negative); Specific Gravity, Urine 1.010 (1.002-1.030); Urine Bilirubin Dipstick Negative (Negative)
[2024-12-01 13:16] LABS: Red Blood Cells-Urine > 100 SEEN /hpf (0-5)
[2024-12-01 15:20] LABS: Reflex Lactate? Y
--- NOTE | 2024-12-01 15:29 | ED.RN ---
reflux lactic was ordered based on protocol, pt was d/c before due.
== END 2024-12-01 15:30 | disposition home or self-care (01) ==
PROVIDERS: Emergency Provider Emergency Medicine; Visit Provider Emergency Medicine
DX: T83.511A Infection and inflammatory reaction due to indwelling urethral catheter, initial encounter (principal); I12.0 Hypertensive chronic kidney disease with stage 5 chronic kidney disease or end stage renal disease; N18.6 End stage renal disease; N39.0 Urinary tract infection, site not specified; E78.5 Hyperlipidemia, unspecified; E03.9 Hypothyroidism, unspecified; Z79.899 Other long term (current) drug therapy; Z87.891 Personal history of nicotine dependence; X58.XXXA Exposure to other specified factors, initial encounter
CPT/HCPCS: 74176; 80048; 81001; 83605; 85025; 87077; 87086; 87088; 87186; 96360; 96361; 99285; A4216

== ENCOUNTER 2024-12-13 10:41 | Emergency (ER) | payer MEDICARE, MEDICAID, SELFPAY ==
[2024-12-13 10:43] VITALS: BP 146/62; PULSE 80; RESP 16; TEMP 36.7; O2SAT 95; BMI 32.8
--- NOTE | 2024-12-13 12:00 | EX.ED.DYSGE1 ---
HPI History of Present Illness Chief Complaint: Torres C/O Informant: patient and EMS Narrative Narrative: 79-year-old male presents by EMS because of accidental dislodgment of his suprapubic catheter. He states he woke up this morning and the catheter was lying next to him on the floor out of his bed with half the amount or less of the typical amount of urine that he wakes up with, along with some urine in the bed and small amount of blood. He states the suprapubic catheter is relatively new, placed several weeks ago by Dr. Mei with urology at [facility] in [place]. He states he had prostatectomy and then a lot of scar tissue and has had significant issues getting catheters in the past which led to him getting the suprapubic catheter. He does not know what size it was and did not bring it with him. [facility] Medical History History of ESBL E. coli infection Hypoxia SOB (shortness of breath) Influenza A Dialysis patient Kidney disease Hepatitis Former smoker Hypertension ESRD on hemodialysis AV fistula End-stage renal disease Hyperlipidemia History of recurrent UTIs Chronic indwelling Torres catheter Urinary retention Prostate cancer Candidiasis, intertrigo Orthostatic hypotension Hypothyroidism Gout Obesity (BMI 30.0-34.9) Home Medications ?Medication ?Instructions ?Recorded ?Last Taken ?Type allopurinol 100 mg tablet 100 mg PO DAILY gout 06/03/24 12/01/24 History levothyroxine 88 mcg tablet 88 mcg PO DAILY thyroid 06/03/24 12/01/24 History midodrine 5 mg tablet 5 mg PO BID blood pressure 06/03/24 12/01/24 History sertraline 50 mg tablet 50 mg PO DAILY mental health 06/03/24 12/01/24 History simvastatin 20 mg tablet 20 mg PO QPM cholesterol 06/03/24 11/30/24 History calcitriol 0.25 mcg capsule 0.25 mcg PO DAILY 10/22/24 11/09/24 History nitrofurantoin macrocrystal 100 mg 100 mg PO BID 7 days #14 caps 12/01/24 Unknown Rx capsule Allergy/AdvReac Type Severity Reaction Status Date / Time iodine Allergy Intermediate Hives Verified 12/13/24 10:43 Family History Other Heart disease Hypertension Surgical History History of left hip hemiarthroplasty History of prostate surgery Social History household members: none Smoking Status: Former smoker alcohol intake: never substance use type: does not use additional social history: Ambulates with a wheeled walker at baseline ROS ROS ED Constitutional Constitutional ED: Denies chills or fever(s) Eyes Eyes: Denies change in vision or diplopia ENT ENT ED: Denies rhinorrhea or sore throat Cardiovascular Cardiovascular: Denies chest pain or palpitations Respiratory/Chest Respiratory/Chest: Denies cough or dyspnea Gastrointestinal Gastrointestinal: Denies abdominal pain, diarrhea, nausea or vomiting Genitourinary Genitourinary ED: Reports difficulty urinating and hematuria; Denies dysuria Musculoskeletal Musculoskeletal: Denies back pain or neck pain Integumentary Denies abscess or rash Neurologic Neurologic: Denies headache(s), paresthesias or weakness Psychiatric Psychiatric: Reports anxiety; Denies suicidal thoughts EXAM Physical Exam Const Vital Signs: 12/13/24 10:43 Temperature 98.0 F Temperature Source Oral Pulse Rate 80 Respiratory Rate 16 Blood Pressure 146/62 H Blood Pressure Mean 90 Pulse Ox 95 Oxygen Delivery Method Room Air Positive well nourished and well developed General Appearance ED: well developed and NAD HEENT Reports moist mucous membranes normocephalic and atraumatic Eyes PERRL and EOMs intact bilaterally Neck full ROM and supple Resp normal respiratory effort and clear to auscultation bilaterally Cardio regular rate, regular rhythm and no murmurs GI non-tender and non-distended GI Narrative: Suprapubic site is a little off-center to the right, it appears benign, there is no active discharge and no signs of tenderness or infection. No other abdominal tenderness. Auscultation: normoactive bowel sounds Palpation: soft Back/Spine no CVA tenderness General Back: other FROM Extremity normal to inspection General Extremety ED: Negative for edema, pulses abnormal or tenderness General Extremity: Negative for edema or pulses abnormal Neuro oriented x3, CN's II-XII intact bilaterally and no sensory deficits noted Sensorium / Orientation: awake and alert Motor Exam: strength 5/5 throughout Skin no rashes or lesions noted and no wounds MDM MDM MDM Narrative Medical decision making narrative: See the procedure note, we were able to get the catheter in. I spoke with Dr. Mei his urologist from [facility], who agrees that since we have 200 cc of nonbloody urine out and the catheter is flowing and the patient is asymptomatic and doing well with it in place, no confirmation imaging necessary, he will follow-up with him in the office, patient alerted. Procedures Other Procedures Procedure(s): Suprapubic Torres catheter replacement by EDMD: With sterile prep and drape with Betadine and sterile gloves, I initially attempted a 14 [place] but was unable to pass it, so then we tried a 10 [place] silicone, and it was difficult to place and then with steady pressure I was able to aspirate a small amount of urine from the tube but then there was a sudden small amount of brief pain and then I was able to aspirate a steady stream of urine with a small amount of blood that cleared quickly, and inflate the 5 cc balloon without difficulty. Bag placed/attached. No complications other than above, tolerated well. Discharge Plan Triage Chief Complaint: Torres C/O ED Provider: Koffi Coffman Dx/Rx/DC Orders Clinical Impression: Suprapubic catheter dysfunction, Encounter for care or replacement of suprapubic tube Instructions: Suprapubic Catheter Dc Prescriptions: No Action calcitriol 0.25 mcg capsule 0.25 mcg PO DAILY Patient Comments: PT NT SURE IF HE TAKES nitrofurantoin macrocrystal 100 mg capsule 100 mg PO BID 7 Days Qty: 14 0RF Rx Instructions: must administer with a meal/food midodrine 5 mg tablet 5 mg PO BID levothyroxine 88 mcg tablet 88 mcg PO DAILY allopurinol 100 mg tablet 100 mg PO DAILY simvastatin 20 mg tablet 20 mg PO QPM sertraline 50 mg tablet 50 mg PO DAILY Primary Care Provider: Ata Hernandez Referrals: dr. gale [Other] - As soon as possible (Call for appointment date/time) Print Language: Yakut Disposition Disposition: Home, Self Care
--- NOTE | 2024-12-13 12:14 | ED.RN ---
PT RECENTLY HAD SUPRAPUBIC CATH PLACED AT A DIFFERENT FACILITY, PT WOKE UP THIS MORNING WITH THE LUTHER NOT IN PLACE AND HIS BED FELT WET. DR BANKS SPOKE WITH UROLOGIST WHO PLACED LUTHER, HE RE-INSERTED A LUTHER SIZE 10 FR BASED ON WHAT COULD BE PUT IN. URINE RETURN WAS SUCCESSFUL. WAITING ON DR MAGANA BACK AT THIS TIME
[2024-12-13 13:05] VITALS: BP 138/82; PULSE 78; RESP 16; TEMP 36.8; O2SAT 96
== END 2024-12-13 14:11 | disposition home or self-care (01) ==
PROVIDERS: Emergency Provider Emergency Medicine; Visit Provider Emergency Medicine
DX: T83.89XA Other specified complication of genitourinary prosthetic devices, implants and grafts, initial encounter (principal); I12.0 Hypertensive chronic kidney disease with stage 5 chronic kidney disease or end stage renal disease; N18.6 End stage renal disease; Z87.891 Personal history of nicotine dependence; X58.XXXA Exposure to other specified factors, initial encounter
CPT/HCPCS: 99284

== ENCOUNTER 2024-12-25 20:16 | Emergency (ER) | payer MEDICARE, MEDICAID, SELFPAY ==
[2024-12-25 20:17] VITALS: BP 110/69; PULSE 83; RESP 16; TEMP 36.6; O2SAT 95; BMI 33.0
--- NOTE | 2024-12-25 20:29 | EKG12_ITS ---
Test Reason : DYSRHYTHMIA Blood Pressure : */* mmHG Vent. Rate : 76 BPM Atrial Rate : 76 BPM P-R Int : 212 ms QRS Dur : 90 ms QT Int : 398 ms P-R-T Axes : * 51 29 degrees QTcB Int : 447 ms Sinus rhythm with 1st degree A-V block Possible Inferior infarct , age undetermined Abnormal ECG Confirmed by KATHERINE WEEKS, DAVI ([id number]), school photograph editor NEGRITO CONNER ([id number]) on 12/27/2024 8:27:34 AM Referred By: Confirmed By: DAVI MURPHY MD
--- NOTE | 2024-12-25 20:29 | CT_ITS ---
PROCEDURE: ABDOMEN/PELVIS W IV CONT ONLY 12/25/2024 REASON FOR EXAM: RLQ PAIN, N/V TECHNIQUE: ABDOMEN/PELVIS W IV CONT ONLY Coronal and Sagittal reconstruction series were provided. CONTRAST: Isovue 370 VOLUME: 95 mL One or more dose reduction techniques were used (e.g., Automated exposure control, adjustment of the mA and/or kV according to patient size, use of iterative reconstruction technique. RADIATION DOSE SUMMARY: CTDlvol: 33 mGy DLP: 1368 mGycm COMPARISON: 12/01/2024 FINDINGS: Under aerated lung bases. Heart size is upper limits of normal. Diffuse hepatic steatosis. Normal gallbladder. Normal pancreas, spleen, adrenal glands. The left kidney is atrophic with multiple calcifications measuring up to 6 mm. There is moderate hydro nephrosis. There is a 2 mm UVJ stone. The right kidney shows multiple simple cysts. There is a ureteral stent within a markedly distended pelvicaliceal system. The ureter is more mildly distended. There is mild wall thickening of the urothelial lining, with some adjacent fat stranding. No definite ureteral stone. Decompressed bladder with suprapubic catheter in lumen. The bladder is not well evaluated. Normal-sized prostate status post TURP. No retroperitoneal or pelvic adenopathy. No free air. There are abdominal collateral vessels in the left hemiabdomen. Nonobstructed bowel. Diverticulosis. Normal appendix. No acute large bowel findings. Status post left THR. Lumbar spine degeneration. Abdominal wall laxity. CT/Abdomen/Pelvis W IV Cont ONLY IMPRESSION: 2 mm left UVJ stone, moderate hydronephrosis. Right-sided hydronephrosis proximally, with ureteral stent in good position. N o definite right-sided ureteral stone. Possible right-sided urinary tract infection. Reading Location: [place] [address]
--- NOTE | 2024-12-25 20:29 | EX.ED.DYSGE1 ---
HPI History of Present Illness Chief Complaint: Flank Pain Narrative Narrative: Patient is a 79-year-old male with past medical history of end-stage renal disease on dialysis, hypertension, hyperlipidemia, urinary tension with suprapubic catheter placed about a month ago, hypothyroidism, history of ESBL infection who presented to the emergency department chief complaint of nausea, abdominal pain. Patient states that earlier today he developed right-sided lower abdominal pain and notes that he has been extremely nauseous all day. He denies any sick contacts. States he has not been passing gas. [facility] Medical History History of ESBL E. coli infection Hypoxia SOB (shortness of breath) Influenza A Dialysis patient Kidney disease Hepatitis Former smoker Hypertension ESRD on hemodialysis AV fistula End-stage renal disease Hyperlipidemia History of recurrent UTIs Chronic indwelling Torres catheter Urinary retention Prostate cancer Candidiasis, intertrigo Orthostatic hypotension Hypothyroidism Gout Obesity (BMI 30.0-34.9) Home Medications ?Medication ?Instructions ?Recorded ?Last Taken ?Type allopurinol 100 mg tablet 100 mg PO DAILY gout 06/03/24 12/01/24 History levothyroxine 88 mcg tablet 88 mcg PO DAILY thyroid 06/03/24 12/01/24 History midodrine 5 mg tablet 5 mg PO BID blood pressure 06/03/24 12/01/24 History sertraline 50 mg tablet 50 mg PO DAILY mental health 06/03/24 12/01/24 History simvastatin 20 mg tablet 20 mg PO QPM cholesterol 06/03/24 11/30/24 History calcitriol 0.25 mcg capsule 0.25 mcg PO DAILY 10/22/24 11/09/24 History sevelamer carbonate 800 mg tablet 800 mg PO TID 12/26/24 Unknown History Allergy/AdvReac Type Severity Reaction Status Date / Time Iodinated Contrast Media Allergy Hives Verified 12/25/24 21:03 (iodine contrast) Family History Other Heart disease Hypertension Surgical History History of left hip hemiarthroplasty History of prostate surgery Social History household members: none Smoking Status: Former smoker alcohol intake: never substance use type: does not use additional social history: Ambulates with a wheeled walker at baseline ROS ROS ED ROS Narrative Constitutional: Denies any fevers or chills Eyes: Denies double vision blurry vision Cardiovascular: Denies chest pain Respiratory: Denies coughing wheezing shortness of breath Abdomen: Complains of nausea and dry heaving denies any diarrhea : States that has a suprapubic catheter in place Neurological: Denies any numbness, wheeze, tingling Musculoskeletal: Denies back pain Skin: Denies any rashes or lesions EXAM Physical Exam Narrative Exam Narrative: General: Patient lying in bed did appear to be uncomfortable with emesis bag in hand Head: Atraumatic, normocephalic Eyes: PERRL bilaterally, EOMI bilaterally, no conjunctival injection noted Neck: Soft, supple, trachea midline Cardiovascular: Regular rhythm no murmurs gallops rubs noted Respiratory: Clear to auscultation bilaterally Abdomen: Soft, nondistended, tender to palpation the right lower quadrant Extremities: +4/5 strength noted in the bilateral upper and lower extremities Neurological: Patient following commands knew that he was at [facility] 2024 Skin: Warm, dry, intact no rashes lesions noted Const Vital Signs: 12/25/24 20:17 12/25/24 21:17 12/25/24 22:00 Temperature 97.8 F Temperature Source Oral Pulse Rate 83 74 74 Respiratory Rate 16 27 H 19 H Blood Pressure 110/69 115/39 L 129/69 H Blood Pressure Mean 82 64 89 Pulse Ox 95 95 95 Oxygen Delivery Method Venturi Mask Nasal Cannula Oxygen Flow Rate (L/min) 2 2 12/25/24 23:00 12/26/24 00:00 Temperature Temperature Source Pulse Rate 76 69 Respiratory Rate 22 H 16 Blood Pressure 121/52 H 119/49 L Blood Pressure Mean 75 72 Pulse Ox 96 95 Oxygen Delivery Method Nasal Cannula Nasal Cannula Oxygen Flow Rate (L/min) 2 2 MDM MDM MDM Narrative Medical decision making narrative: Patient is a 79-year-old male who presented to the emergency department chief complaint of abdominal pain. On the differential diagnosis includes but not limited to appendicitis, bowel obstruction, AAA, urolithiasis, pyelonephritis, UTI. Once workup is obtained reviewed he will be reevaluated. Patient be given IV fluids morphine Zofran. Patient CBC was significant for a leukocytosis of 15,000, hemoglobin 11.9, plate count of 209. Patient sodium was 138, Tessman normal 4.6, creatinine was 3.77 he is on dialysis, AST and ALT were 29 respectively. Patient lipase normal 36. Patient urinalysis showed evidence of infection with 500 leukocyte esterase greater than 100 white cells with 4+ bacteria this was sent for culture he was originally given Rocephin however after reviewing his previous cultures and sensitivities he had ESBL in the past he will be given 2 g of meropenem. Patient's CT abdomen pelvis with IV contrast returned and shows a 2 mm left UVJ stone moderate hydronephrosis. Right sided hydronephrosis proximally with ureteral stent in good position no definitive right sided ureteral stone possible right sided urinary tract infection. Patient had his suprapubic catheter placed about a month ago at [facility]. Overnight provider will try to transfer there as we do not have urology and he had a procedure there a month ago.. Per patient's request. See their note for ultimate details and disposition in the addendum. Lab Data Labs: Laboratory Results - last 24 hr 12/25/24 12/25/24 20:25 20:36 WBC 15.0 H RBC 3.91 L Hgb 11.9 L Hct 36.9 L MCV 94.4 H MCH 30.4 MCHC 32.2 RDW Std Deviation 57.9 H RDW Coeff of Filomena 16.7 H Plt Count 209 MPV 10.5 Immature Gran % (Auto) 0.300 Neut % (Auto) 87.6 H Lymph % (Auto) 6.4 L Posey % (Auto) 4.7 Eos % (Auto) 0.5 Baso % (Auto) 0.5 Absolute Neuts (auto) 13.2 H Absolute Lymphs (auto) 0.96 Nucleated RBC % 0 Sodium 138 Potassium 4.6 Chloride 97 L Carbon Dioxide 26.1 Anion Gap 16 H BUN 29 H Creatinine 3.77 H Estim Creat Clear Calc 20.15 L Est GFR (MDRD) Non-Af 16 L BUN/Creatinine Ratio 7.6 L Glucose 152 H Calcium 9.4 Total Bilirubin 0.54 AST 20 ALT 9 Alkaline Phosphatase 90 Total Protein 7.3 Albumin 4.1 Globulin 3.2 Albumin/Globulin Ratio 1.3 Lipase 36 Urine Color Yellow Urine Clarity Turbid Urine pH 7.0 Ur Specific [place] 1.010 Urine Protein 100 H Urine Glucose (UA) Normal Urine Ketones Negative Urine Occult Blood 250 H Urine Nitrite Negative Urine Bilirubin Negative Urine Urobilinogen Normal Ur Leukocyte Esterase 500 H Urine RBC > 100 SEEN Urine WBC >100 SEEN Ur Squamous Epith Cells 0-5 SEEN Urine Bacteria 4+ Urine Mucus 0 SEEN Radiography Diagnostic Testing: Clinical Impression(s) from Imaging Studies Abdomen/Pelvis CT 12/25/24 20:29 IMPRESSION: 2 mm left UVJ stone, moderate hydronephrosis. Right-sided hydronephrosis proximally, with ureteral stent in good position. No definite right-sided ureteral stone. Possible right-sided urinary tract infection. Reading Location: [place] [address] Discharge Plan Triage Chief Complaint: Flank Pain ED Provider: Gee Sevilla Dx/Rx/DC Orders Clinical Impression: End-stage renal disease, Catheter-associated urinary tract infection, History of ESBL E. coli infection, Urolithiasis, Nausea & vomiting, Abdominal pain Prescriptions: No Action calcitriol 0.25 mcg capsule 0.25 mcg PO DAILY Patient Comments: PT NT SURE IF HE TAKES sevelamer carbonate 800 mg tablet 800 mg PO TID midodrine 5 mg tablet 5 mg PO BID levothyroxine 88 mcg tablet 88 mcg PO DAILY allopurinol 100 mg tablet 100 mg PO DAILY simvastatin 20 mg tablet 20 mg PO QPM sertraline 50 mg tablet 50 mg PO DAILY Primary Care Provider: Ata Hernandez Referrals: Ata Hernandez MD [Primary Care Provider] - Print Language: [place] Citizen
[2024-12-25] MEDS: 0.9% Normal Saline (1000mL) 1,000 ML 999 ML IV (20:36)
[2024-12-25 20:46] LABS: Hematocrit 36.9 % (40-54); Hemoglobin 11.9 g/dL (13.0-16.5); Immature Granulocytes Count 0.040 X10^3/uL (0.0-0.0); Mean Corp Hgb Conc 32.2 g/dL (32-36); Mean Corpuscular Volume 94.4 fL (80-94); Mean Platelet Vol. 10.5 fl (6.2-12.0); NRBC Flagged by Analyzer 0 % (0-5); Platelet Count 209 K/mm3 (150-450); RBC Distribution Width CV 16.7 % (11.6-14.6); RBC Distribution Width SD 57.9 fl (35.1-43.9); Red Blood Count 3.91 M/mm3 (4.6-6.2); White Blood Count 15.0 K/mm3 (4.4-11.0)
[2024-12-25 20:47] LABS: Mucous, Urine 0 SEEN /hpf (<or=2+)
[2024-12-25] MEDS: DiphenhydrAMINE 50 MG/ML Syringe 25 MG IV (20:52)
--- OUTSIDE RECORDS SUMMARY | 2024-12-25 20:52 | XMS RPT_ITS | CCD ---
Author Organization [facility] Care Team Providers Care Gamb Cutter Name Role Phone Haus, Ata P Unavailable Unavailable Mckeon, Ortiz Unavailable Unavailable Mckeon, Ortiz Unavailable Unavailable Bah, W Unavailable Unavailable Bah, W Unavailable Unavailable Bitner, Genet Mallory Unavailable Unavailable Bitner, Genet Mallory Unavailable Unavailable Haus, Ata P Unavailable Unavailable Bitner, Genet Mallory Unavailable Unavailable Bitner, Genet Mallory Unavailable Unavailable Haus, Ata P Unavailable Unavailable Bah, W Unavailable Unavailable Bah, W Unavailable Unavailable Bah, W Unavailable Unavailable Bah, W Unavailable Unavailable Haus, Ata P Unavailable Unavailable Bah, W Unavailable Unavailable Bah, W Unavailable Unavailable No Doctor Assigned, Nodr Unavailable Unavail able Bah, W Unavailable Unavailable Haus, Ata P Unavailable Unavailable Bah, W Unavailable Unavailable Bah, W Unavailable Unavailable Bah, W Unavailable Unavailable Haus, Ata P Unavailable Unavailable Sokari, Telemate Unavailable Unavailable Sokari, Telemate Unavailable Unavailable Bah, W Unavailable Unavailable Haus, Ata P Unavailable Unavailable Bah, W Unavailable Unavailable Bah, W Unavailable Unavailable Haus, Ata P Unavailable Unavailable Haus, Ata P Primary Care Provider [phone] Haus, Ata P Primary Care Provider Haus DO, Ata P Primary Care Provider Haus DO, Ata P Primary Care Provider Haus DO, Ata P Primary Care Provider [phone] Haus, Ata Unavailable Bah, Unavailable Giovanni Pardo Unavailable Unavailable Haus, Ata P Unavailable Haus DO, Ata P Primary Care Provider Roddy Tiana M Unavailable Barron Carney Unavailable Unavailabl e Haus, Dr. Ata Lemos Primary Care Unavailable MD JOHN BAH Attending Unavailabl e MD JOHN BAH Referring Unavailabl e Gary Puckett, Dr. Mart Attending Farida Coates, Dr. Lou Admitting Unavailable Jaxon, Dr. Lou Referring Unavailable Haus, Dr. Ata Lemos Primary Care Unavailable Kyaw, Dr. Giovanni Parada Attending Unavailabl e Haus, Dr. Ata Lemos Primary Care Unavailable El Darcy, Dr. Cash Admitting Unavailabl e El Darcy, Dr. Cash Referring Unavailabl e Haus, Dr. Ata Lemos Primary Care Unavailable MD JOHN BAH Attending Unavailabl e Unavailable Unavailable Mary LOPEZ, Ata Lemos Primary Care Provider [phone] Mary LOPEZ, Ata Lemos Primary Care Provider Mary LOPEZ, Atajaems Lemos Primary Care Provider Tory WEEKS, Cali Fermin Unavailable [phone] Tiana De León DO Unavailable Roddy LOUIENan Unavailable Roddy LOPEZ Tiana Mitchell Unavailable Mary LOPEZ, Ata Lemos Primary Care Provider [phone] Doreen WEEKS, Hernesto Grace Primary Care Prov ider ATA HERNANDEZ Primary Care Unavailable KATRINA GARDNER Admitting Unavailabl e KATRINA GARDNER Referring Unavailabl e GENET STEIN Attending Unavailable HERNESTO LOGAN Primary Care Unav ailable CALI JACOB Attending Unavailable HERNESTO LOGAN Primary Care Unav ailable CALI JACOB Attending Unavailable CALI JACOB Referring Unavailable HERNESTO LOGAN Primary Care Unav ailable CALI JACOB Admitting Unavailable CALI JACOB Attending Unavailable CLEMALLAEE, HERNESTO MONAZZAM Primary Care Unav ailable FAUSER, NYOKA KATRIN Attending Unavailable CLEMALLAEE, HERNESTO MONAZZAM Primary Care Unav ailable CALI JACOB Referring Unavailable CALI JACOB Admitting Unavailable TAVALLAEE, HERNESTO MONAZZAM Primary Care Unav ailable FAUSER, NYOKA KATRIN Attending Unavailable NAN DE LEÓN Admitting Unavailable NAN DE LEÓN Referring Unavailable HAUS, ATA CANELO Primary Care Unavailable CALI JACOB Attending Unavailable CALVIN AZUL DO Attending Unavailable CALVIN AZUL DO Primary Care Unavailable CALVIN AZUL DO Admitting Unavailable Hitesh RN, Liliana Unavailable Unavailable Hitesh PICKARD, Liliana Unavailable Unavailable JOHN BAH Attending Unavailable HAUS, ATA CANELO Primary Care Unavailable LEB, JUDY B Attending Unavailable LEB, JUDY B Referring Unavailable HAUS, ATA CANELO Primary Care Unavailable LEB JUDY B Attending Unavailable LEB, JUDY B Referring Unavailable HAUS, ATA CANELO Primary Care Unavailable LEB, JUDY B Attending Unavailable HAUS, ATA CANELO Primary Care Unavailable LEB, JUDY B Attending Unavailable HAUS, ATA CANELO Primary Care Unavailable LEB JUDY B Attending Unavailable HAUS, ATA CANELO Primary Care Unavailable JOHN BAH Attending Unavailable HAUS, ATA CANELO Primary Care Unavailable JOHN BAH Attending Unavailable HAUS, ATA CANELO Primary Care Unavailable NICOLE SALCEDO Attending Unavailable LEB, JUDY B Referring Unavailable HAUS, ATA CANELO Primary Care Unavailable JOHN BAH Attending Unavailable HAUS, ATA CANELO Primary Care Unavailable LEB JUDY B Attending Unavailable HAUS, ATA CANELO Primary Care Unavailable YAYA FOSTER MD Attending Unavailable YAYA FOSTER MD Primary Care Unavailable LEB, UJDY B Referring Unavailable HAUS, ATA CANELO Primary Care Unavailable JOHN POWELL Attending Unavailable JOHN POWELL Referring Unavailable HAUS, ATA CANELO Primary Care Unavailable JOHN POWELL Referring Unavailable HAUS, ATA CANELO Primary Care Unavailable HAUS, ATA CANELO Primary Care Unavailable GIL BOTELLO Attending Unavailable HAUS, ATA CANELO Primary Care Unavailable GIL BOTELLO Attending Unavailable CALVIN AZUL Referring Unavailable HAUS, ATA CANELO Primary Care Unavailable JAXON, DAILY Admitting Unavailable JAXON, DAILY Attending Unavailable BAH, JOHN Stout Consulting Unavailable LEJUDY Maldonado Referring Unavailable HAUS, ATA CANELO Primary Care Unavailable HAUS, ATA CANELO Primary Care Unavailable Haus DO, Ata P Primary Care Provider [phone] HAUS, ATA P Primary Care Unavailable SELF, SELF Referring Unavailable HAUS, ATA P Attending Unavailable SELF, SELF Referring Unavailable HAUS, ATA P Attending Unavailable HAUS, ATA P Primary Care Unavailable SELF, SELF Referring Unavailable HAUS, ATA P Attending Unavailable HAUS, ATA P Primary Care Unavailable David LOPEZ, Dr. Montes Emergency Provider Mary WEEKS, Dr. Berumen Primary Care Provider Zane LOPEZ, Dr. Huitron Admit Provider Dr. Elana Degroot DO Attending Provider Dr. Elana Degroot DO Other Provider Naila WEEKS, Dr. Joseph Attending Provider Unavaila clyde Yoo MD, Dr. Joseph Other Provider Unavailable Rima WEEKS, Dr. Montoya Other Provider Dr. Koffi Coffman MD Emergency Provider Kiran LOPEZ, Dr. Pires Admit Provider Dr. Pranay Beck DO Other Provider Quinn Waddell MD Emergency Provider Dr. Davey Allen DO Attending Provider Dr. Davey Allen DO Other Provider Gabriele WEEKS, Dr. Earl Emergency Provider [phone] Dr. Ren Uriarte DO Emergency Provider Tory WEEKS, Cali Fermin Unavailable SYSTEM, PROVIDER NOT IN Referring Unavaila ble SYSTEM, PROVIDER NOT IN Attending Unavaila ble TAVALLAEE, HERNESTO MONAZZAM Primary Care Unav ailable TAVALLAEE, HERNESTO MONAZZAM Primary Care Unav ailable DOLEN, ATA GHISLAINE Attending Unavailable BAHJOHN Referring Unavailable BAH, JOHN ALMANZA Admitting Unavailable TAVALLAEE, HERNESTO MONAZZAM Primary Care Unav ailable DOLWOODROW, ATA SCANLON Attending Unavailable DOLWOODROW, ATA SCANLON Admitting Unavailable Mary WEEKS, Dr. Berumen Primary Care Provider [phone] Zane LOPEZ, Dr. Huitron Admit Provider Zane LOPEZ, Dr. Huitron Other Provider Rima WEEKS, Dr. Montoya Other Provider Zane LOPEZ, Dr. Huitron Attending Provider Gabriele WEEKS, Dr. Earl Attending Provider Sherrell LOPEZ, Dr. Mcclure Attending Provider Rebeka WEEKS, Dr. Dsouza Attending Provider Meghna WEEKS, Dr. Rain Attending Provider Meghna WEEKS, Dr. Rain Emergency Provider TAVALLAEE, HERNESTO MONAZZAM Primary Care Unav ailable VISTADATA Attending Unavailable ATA SULLIVAN Admitting Unavailable CALI JACOB Referring Unavailable CALI JACOB Attending Unavailable TAVALLAEE, HERNESTO MONAZZAM Primary Care Unav ailable ESPINOZA, SHARMILA Referring Unavailable TOMMY MEI Attending Unavailable HAUS, ATA P Primary Care Unavailable ESPINOZA, SHARMILA Attending Unavailable ESPINOZA, SHARMILA Referring Unavailable HAUS, ATA P Primary Care Unavailable HAUS, ATA P Primary Care Unavailable ESPINOZA, SHARMILA Attending Unavailable ESPINOZA, SHARMILA Referring Unavailable HAUS, ATA P Primary Care Unavailable HAUS, ATA P Referring Unavailable ALEXIS, SHARMILA Attending Unavailable TOMMY MEI Attending Unavailable TOMMY MEI Referring Unavailable HAUS, ATA P Primary Care Unavailable TOMMY MEI Attending Unavailable TOMMY MEI Referring Unavailable HAUS, ATA P Primary Care Unavailable Mary WEEKS, Dr. Berumen Primary Care Provider [phone] Quinn Waddell MD Emergency Provider Dr. Ata Hernandez MD Primary Care Provider Quinn Waddell MD Attending Provider [phone] EMILY DICKEY Admitting Unavailable EMILY DICKEY Attending Unavailable CALVIN AZUL Referring Unavailable HAUS, ATA CANELO Primary Care Unavailable JUDY LEY Referring Unavailable HAUS, ATA CANELO Primary Care Unavailable Zane, Elana Admitting Unavailable Haus, Ata Primary Care Unavailable Calvin Yoo Attending Unavailable Zane, Elana Consulting Unavailable Rima, Jayaprakas Consulting Unavailable Rima, Jayaprakas Consulting Unavailable Haus, Ata Primary Care Unavailable Pranay Beck Admitting Unavailable Elana Degroot Attending Unavailable Pranay Beck Consulting Unavailable Rima, Jayaprakas Consulting Unavailable Haus, Ata Primary Care Unavailable Davey Allen Attending Unavailable Zane, Elana Admitting Unavailable Zane, Elana Consulting Unavailable Davey Allen Consulting Unavailable Haus, Ata Primary Care Unavailable Yaya Foster Attending Unavailable Zane, Elana Admitting Unavailable Rima, Jayaprakas Consulting Unavailable Haus, Ata Primary Care Unavailable Davey Allen Attending Unavailable Zane, Elana Consulting Unavailable Haus, Ata Primary Care Unavailable Ren Uriarte Attending Unavailable Haus, Ata Primary Care Unavailable Quinn Waddell Attending Unavailable Haus, Ata Primary Care Unavailable Rajat Suazo Attending Unavailable Elana Degroot Attending Unavailable Zane, Elana Admitting Unavailable Haus, Ata Primary Care Unavailable Zane, Elana Consulting Unavailable Calvin Yoo Attending Unavailable Calvin Yoo Consulting Unavailable Haus, Ata Primary Care Unavailable Ren Uriarte Attending Unavailable Haus, Ata Primary Care Unavailable Koffi Coffman Attending Unavailable Rima, Jayaprakas Consulting Unavailable Zane, Elana Admitting Unavailable Zane, Elana Consulting Unavailable Haus, Ata Primary Care Unavailable Calvin Yoo Attending Unavailable Rima, Jayaprakas Consulting Unavailable Calvin Yoo Consulting Unavailable Rima, Jayaprakas Consulting Unavailable Haus, Ata Primary Care Unavailable Pranay Beck Attending Unavailable Pranay Beck Admitting Unavailable Pranay Beck Consulting Unavailable Elana Degroot Attending Unavailable Zane, Elana Consulting Unavailable Elana Degroot Attending Unavailable Haus, Ata Primary Care Unavailable Koffi Coffman Attending Unavailable Allergies Allergy Classification Reported Allergen(s) Allergy Type Date of Onset Reaction(s) Facility Aminoketones (13 sources) buPROPion Drug Allergy 7 Anxiety, Unknown [facility] Diatrizoate (10 sources) Diatrizoate Drug Allergy 1 [facility] Iodine (and Iodine containting drugs) (11 sources) Iodine Drug Allergy 7 Hives, Nausea and Vomiting [facility] NSAIDs (13 sources) meloxicam Drug Allergy 7 Unknown [facility] Povidone-Iodine (10 sources) Povidone-Iodine Drug Allergy 1 [facility] Quinolones (antibiotic) (6 sources) Ciprofloxacin Drug Allergy 1 Rash, Itching [facility] Unclassified (20 sources) *Seasonal Propensity to adverse reactions to substance 1 [facility] (1 source) Contrast media; Translations: [contrast media (iodine-based)] Propensity to adverse reactions to drug (disorder) [facility] Repository (1 source) Pollen; Translations: [Pollen] [facility] Betadine Skin Cleanser; Translations: [Betadine Skin Cleanser] Propensity to adverse reactions to drug [facility]disorder[facility] ([facility] sources) buPROPion; Translations: [BUPROPION] Drug Allergy 7 Anxiety, Unknown [facility] (20 sources) Iodine; Translations: [iodine] Drug Allergy 4 Hives, Nausea and Vomiting, Unknown, Rash [facility] (20 sources) meloxicam; Translations: [MELOXICAM] Drug Allergy 7 Other, Unknown [facility] (20 sources) Ciprofloxacin; Translations: [CIPROFLOXACIN] Drug Allergy 1 Rash, Itching [facility] (14 sources) Diatrizoate Drug Allergy 1 [facility] (4 sources) Povidone-Iodine Drug Allergy 1 [facility] (10 sources) meloxicam Drug Allergy 7 [facility] (10 sources) Povidone-Iodine Drug Allergy 1 [facility] (20 sources) Ct: Iodinated Contrast- Oral And Iv Dye; Translations: [CT: IODINATED CONTRAST- ORAL AND IV DYE] Propensity to adverse reactions to drug 4 Nausea and vomiting, Nausea/vomitin g [facility] (1 source) Iodine Drug Allergy [facility] Repository (3 sources) IODINATED CONTRAST MEDIA; Translations: [IODINATED CONTRAST MEDIA] Propensity to adverse reactions to drug (disorder) 4 [facility] 3 Repository (1 source) Iodine Drug Allergy 5 [facility] Repository Medications Current Medications Medication Drug Class(es) Dates Sig (Normalized) Sig (Original) acetaminophen 325 mg / HYDROcodone bitartrate 5 mg oral tablet (20 sources) Opioid Agonist Start: 04-06-2024 take 1 tablet by mouth every six hours as needed 1 tablet, oral, Every 6 hours PRN, pain severe (7-10), first line, Starting on Fri05/11/24 at 2215, If ordered PRN for pain, nurse is permitted to administer this medication for higher pain scores based on patient preference? Yes Start: 10-17-2020 End: 10-19-2020 take 1 tablet by mouth every four hours as needed hydroCODone-acetaminophen 5-325 MG table t Indications: Ureteral stricture Take 1 tablet by mouth every 4 hours as needed for up to 2 days. 12 tablet 0 10/17/2020 Active Start: 10-17-2020 hydroCODone-ac etaminophen (NORCO) 5-325 MG per tablet 1 tablet Start: 09-28-2020 End: 09-30-2020 take 1 tablet by mouth every four hours as needed hydroCODone-acetaminophen 5-325 MG table t Indications: Hydronephrosis , Stricture of male urethra, unspecified stricture type Take 1 tablet by mouth every 4 hours as needed for up to 2 days. 12 tablet 0 09/28/2020 Active take 1 tablet by brittney th every eight hours as needed for pain HYDROcodone-acetaminophen (NORCO) 5-325 mg per tablet Take 1 (one) tablet by mouth every 8 (eight) hours as needed for pain . Active albuterol 0.83 mg/ml inhalation solution (1 source) beta2-Adrenergic Agonist Start: 03-31-2023 take 2.5 mg by inhalation every six hours as needed albuterol 2.5 mg /3 mL (0.083 %) nebulizer solution 2.5 mg alteplase (Cathflo Activase) injection 2 mg (1 source) Start: 03-08-2024 2 mg, intra-catheter, As needed, line care, Starting on Fri03/08/24 at 1518, Via PICC Line Removed by: Aspiration Inject into partial/totally occluded catheter lumen for total of 30 to 120 minute dwell time; assess patency at 30 minutes and if not patent, dwell for additional 90 minutes. If still not patent, repeat alteplase 2 mg injected into thrombotic partial or totally occluded lumen for a total of 120 minute dwell time; assess patency at 30 minutes and if not patent, dwell for 90 minutes. If still not patent, notify provider. Dilute each 2 mg vial with 2.2 mL sterile water to give 1 mg/mL final concentration. Swirl gently to mix; do not shake. Amino Acids (6 sources) take 30 mL by mouth three times daily Amino Acids (AMINO ACID PROTEIN PO) Take 30 mL by mouth 3 (three) times a day. Active amino acids-protein hydrolys 17-100 gram-kcal/30 mL Liqd (18 sources) amino acids-protein hydrolys 17-100 gram-kcal/30 mL Liqd Take 30 mL by mouth 3 (three) times a day . Active amino acids-prot ein hydrolys 17-100 gram-kcal/30 mL Liqd Take 30 mL by mouth 3 (three) times a day . 0 Suspended amino acids-prot ein hydrolys 17-100 gram-kcal/30 mL Liqd Take 30 mL by mouth 3 (three) times a day . 0 Active aspirin 325 mg delayed release oral tablet (20 sources) Platelet Aggregation Inhibitor, Nonsteroidal Anti-inflammatory Drug Start: 04-02-2023 End: 05-07-2023 take 1 tablet by mouth twice daily aspirin 325 mg EC tablet Indications: Hip fracture due to osteoporosis, initial encounter ([facility]) Take 1 tablet (325 mg) by mouth 2 times a day. 60 tablet 0 04/07/2023 05/07/2023 Active take 1 tablet by mouth once patric y aspirin EC [address] Take 1 tablet by mouth daily. 0 Active bisacodyl 5 mg delayed release oral tablet (20 sources) Stimulant Laxative Start: 03-05-2024 take 1 tablet by mouth every twenty-four hours as needed 10 mg, oral, Daily PRN, constipation, first line, Starting on Fri03/05/24 at 1157, 1st line for treatment of constipation - contact provider if no bowel movement in past 48 hours. Do not crush, chew, or split. Start: 04-05-2023 End: 04-05-2023 bisacodyl (Dulcolax) supposi tory 10 mg bismuth subsalicylate 262 mg oral tablet (1 source) Bismuth take 2 tablets by mouth once daily as needed Pepto-Bismol 262 mg oral tablet ; 2 tab(s) orally once a day, As Needed Quantity: 0 Refills: 0 Ordered: 20-Nov-2022 Cat[place] Generic Substitution Allowed calcitriol 0.49048 mg oral capsule (20 sources) Vitamin D3 Analog Start: take 1 capsule by mouth once daily Calcitriol 0.25 mcg capsule Active 0.25 ug PO DAILY October 22, 2024 12:00am Start: 01-06-2023 End: 07-27-2024 take 1 capsule by mouth once daily calcitRIOL 0.25 MCG capsule Take 1 capsule by mouth daily. 30 capsule 11 07/27/2024 Active carboxymethylcellulose 0.01 mg/mg ophthalmic gel (10 sources) take 2 drop(s) into the eye(s) twice daily carboxymethylcellulose 1 % ophthalmic solution 2 (two) drops 2 (two) times a day . Active cefuroxime 500 mg oral tablet (2 sources) Cephalosporin Antibacterial Star t: 06-21 End: 01-19 take 1 tablet by mouth every twelve hours cefUROXime 500 MG tablet Take 1 tablet by mouth every 12 hours for 7 days. 14 tablet 0 05/02/2021 05/09/2021 Active cephalexin 500 mg oral capsule (4 sources) Cephalosporin Antibacterial Star t: 05-02 24 End: 05-03 24 take 1 capsule by mouth four times daily cephalexin (Keflex) 500 mg capsule Indications: Jamison catheter problem, initial encounter ([facility]) , Urinary tract infection with hematuria, site unspecified , Hydroureteronephrosis , Left ureteral stone Take 1 capsule (500 mg) by mouth 4 times a day for 10 days. 40 capsule 05/11/2024 05/21/2024 Active Start: 05-30-2023 End: 06-09-2023 take 1 capsule by mouth four times daily cephalexin (Keflex) 500 mg capsule Indications: UTI (urinary tract infection), bacterial Take 1 capsule (500 mg) by mouth 4 times a day for 10 days. 40 capsule 0 05/30/2023 06/09/2023 Active cloNIDine (1 source) Central alpha-2 Adrenergic Agonist Start: 04-06-2024 Clonidine-TTS use CATAPRES-TTS transdermal film Dose : 0.1 mg =, Transdermal, q4h, PRN Other (see order comments), 0 Refill(s) Start Date: 04/06/24 Status: Ordered cyclobenzaprine hydrochloride 10 mg oral tablet (1 source) Muscle Relaxant Start: 04-01-2023 take 1 tablet by mouth every twenty-four hours as needed cyclobenzaprine (Flexeril) tablet 5 mg diphenhydrAMINE hydrochloride 25 mg oral capsule (8 sources) Histamine-1 Receptor Antagonist Start: 04-06-2024 Benadryl 25 mg oral capsule Dose : 25 mg = 1 cap(s), Oral, q4h, PRN as needed for allergy symptoms, # 24 cap(s), 0 Refill(s) Start Date: 04/06/24 Status: Ordered Start: 02-09-2024 50 mg, intrave nous, Once, On 02/09/24 at 2350, For 1 dose, If giving IV push, max rate of 25 mg/min. Start: 02-09-2024 Starting on Mo n 02/09/24 at 2348, For 1 dose, Created by cabinet override Start: 11-21-[address] [facility] once, then take 1 capsule by mouth every hour diphenhydrAMINE (BENADryl) 50 mg capsule Indications: Other hydronephrosis Take 1 capsule (50 mg) by mouth 1 time for 1 dose. Take one tablet by mouth 1 hour prior to procedure for contrast premedication. 1 capsule 11/21/2023 Active DISABILITY PLACARD (13 sources) Start: 03-02-2021 End: 03-02-2026 DISABILITY PLACARD Indicatio ns: Osteoarthritis of both knees, unspecified osteoarthritis type Disability placard end date 03/02/2026. 1 Each 03/02/2021 03/02/2026 Active Start: 03-02-2021 End: 03-02-2026 DISABILITY PLACARD Indicatio ns: Osteoarthritis of both knees, unspecified osteoarthritis type Disability placard end date 03/02/2026. 1 Each 0 03/02/2021 03/02/2026 Active docusate sodium 50 mg / sennosides, custodial 8.6 mg oral tablet (20 sources) take 2 tablets by mouth once daily in the morning senna-docusate (SENNA-S) 8.6-50 mg Indications: constipation Take 2 (two) tablets by mouth every morning Reasons: constipation. Active ertapenem (INVanz) 500 mg in sodium chloride 0.9% 50 mL IV (2 sources) Start: 03-09-2024 End: 03-16-2024 500 mg, intravenous, at 100 mL/hr, Administer over 30 Minutes, Every 24 hours, First dose (after last modification) on Fri03/09/24 at 1700, For 7 days, Suspected Indication (Select all that apply): Urinary Tract Infection, Type of Therapy: Definitive, Based on Culture, Type of Urinary Tract Infection: Complicated, Indications: Urinary Tract Infection Start: 03-08-2024 End: 03-08-2024 500 mg, intravenous, at 100 mL/hr, Administer over 30 Minutes, Once, On Fri03/08/24 at 1700, For 1 dose, Suspected Indication (Select all that apply): Urinary Tract Infection, Type of Therapy: Definitive, Based on Culture, Type of Urinary Tract Infection: Complicated, Indications: Urinary Tract Infection ertapenem 500 mg in sodium chloride 0.9% 50 mL IV (3 sources) Start: 03-09-2024 End: 03-16-2024 ertapenem 500 mg in sodium chloride 0.9% 50 mL IV Indications: Urinary Tract Infection Infuse 500 mg at 100 mL/hr over 30 minutes into a venous catheter once every 24 hours for 7 doses. Continuous infusion. Start 03/09/24 - 03/16/2024. Can be used with elastometric pump 1 each 03/09/2024 03/16/2024 Active Start: 03-09-2024 End: 03-09-2024 ertapenem 500 mg in sodium c hloride 0.9% 50 mL IV Indications: Urinary Tract Infection Infuse 500 mg at 100 mL/hr over 30 minutes into a venous catheter once every 24 hours for 7 doses. Do not fill before March 09, 2024. 1 each 03/09/2024 03/09/2024 Discontinued Start: 03-09-2024 End: 03-09-2024 ertapenem 500 mg in sodium c hloride 0.9% 50 mL IV Indications: Urinary Tract Infection Infuse 500 mg at 100 mL/hr over 30 minutes into a venous catheter once every 24 hours for 7 doses. Continuous infusion 1 each 03/09/2024 03/09/2024 Discontinued fluconazole 200 mg oral tablet (5 sources) Azole Antifungal Start: 05-02-2021 End: 05-09-2021 take 1 tablet by mouth once daily fluconazole 200 MG tablet Take 1 tablet by mouth daily for 7 days. 7 tablet 1 05/02/2021 05/09/2021 Active Start: 11-01-2020 End: 12-07-2020 take 1 tablet by mouth once daily fluconazole 100 MG tablet Take 1 tablet by mouth daily for 14 days. 14 tablet 0 11/23/2020 12/07/2020 Active fluticasone propionate 0.05 mg/actuat metered dose nasal spray (1 source) Corticosteroid Start: 03-31-2023 fluticasone (Flonase) nasal spray 2 spray Gas Relief Ultra Strength Softgels 180 mg oral capsule (1 source) Start: 04-06-2024 take 1 mg by mouth three times daily Gas Relief Ultra Strength Softgels 180 mg oral capsule mg = cap(s), Oral, TID, 0 Refill(s) Start Date: 04/06/24 Status: Ordered 1 ml heparin sodium, porcine 1000 unt/ml injection (6 sources) Unfractionated Heparin, Anti-coagulant Start: 03-08-2024 End: 03-09-2024 2,000 Units, intra-catheter, After Dialysis, First dose on Fri03/10/24 at 1200, Administer via venous port of hemodialysis catheter. Volume of heparin dose must equal catheter volume. Fill to port dose after dialysis. Start: 03-05-2024 inject 5000 [IU] by subcutaneous injection every eight hours 5,000 Units, subcutaneous, Every 8 hours, First dose on Fri03/05/24 at 1400 Start: 03-31-2023 inject 5000 [IU] by subcutaneous injection every eight hours 5,000 Units, subcutaneous, Every 8 hours, First dose on Fri03/31/23 at 1645 iohexol (OMNIPaque) 350 mg iodine/mL solution 90 mL (1 source) Start: 02-09-2024 90 mL, intrave nous, Once in imaging, Starting on Fri02/09/24 at 2346, For 1 dose 24 hr isosorbide mononitrate 30 mg extended release oral tablet (20 sources) Nitrate Vasodilator Start: 04-06-2024 isosorbide mononitrate 30 mg oral tablet, extended release Dose : 30 mg = 1 tab(s), Oral, qAM, # 30 tab(s), 0 Refill(s) Start Date: 04/06/24 Status: Ordered Start: 12-13-2022 isosorbide mon onitrate ER (Imdur) 30 mg 24 hr tablet Start: 11-29-2022 End: 03-05-2024 isosorbide mononitrate ER (I mdur) 30 mg 24 hr tablet 1 tablet (30 mg) once daily. 12/13/2022 Active lanolin 0.157 mg/mg / menthol 0.0044 mg/mg / petrolatum 0.24 mg/mg / zinc oxide 0.206 mg/mg topical ointment (6 sources) menthol-zinc oxi de (Calmoseptine) 0.44-20.6 % Ointment Apply 1 Application topically. Active levoFLOXacin 250 mg oral tablet (16 sources) Quinolone Antimicrobial Start: 06-12-19 End: 03-23-20 take 1 tablet by mouth every other day levoFLOXacin (Levaquin) 250 mg tablet Indications: Urinary tract infection without hematuria, site unspecified Take 1 tablet (250 mg) by mouth every other day for 5 doses. 5 tablet 0 06/12/2023 06/12/2023 Discontinued (Reorder) Start: 06-12-2023 End: 06-12-2023 levoFLOXacin (Levaquin) tabl et 500 mg Start: 10-12-2020 End: 10-26-2020 take 1 tablet by mouth once daily levoFLOXacin 250 MG tablet Take 1 tablet by mouth daily for 14 days. 14 tablet 0 10/12/2020 10/26/2020 Active magnesium hydroxide 80 mg/ml oral suspension (20 sources) Start: 05-12-2024 End: 05-12-2024 take 30 mL by mouth every twenty-four hours as needed magnesium hydroxide 400 MG/5ML Suspension Take 30 mL by mouth daily as needed for Constipation. 3780 mL 2 05/12/2024 Active take 2400 mg by mout h every four hours as needed magnesium hydroxide 400 mg/5 mL Susp Yifan e 30 mL (2,400 mg total) by mouth every 4 (four) hours as needed (constipation) . Active melatonin 3 mg oral tablet (1 source) Start: 03-31-2023 take 3 mg by mouth once daily 3 mg, oral, Daily, First dose on Fri03/31/23 at 1900 menthol 0.0044 mg/mg / zinc oxide 0.206 mg/mg topical ointment (20 sources) menthol-zinc oxi de (Calmoseptine) 0.44-20.6 % Oint Apply topically 2 (two) times a day For excoriation of R buttock . Active menthol-zinc oxi de (Calmoseptine - Risamine) 0.44-20.6 % ointment Apply 1 Application topically 3 times a day. For excoriation Active micafungin sodium 100 mg injection (4 sources) Echinocandin Antifungal Start: 11-29-2022 End: 12-10-2022 inject 100 mg intravenously once daily micafungin 100 mg intravenous injection ; 100 milligram(s) intravenously once a day Quantity: 12 Refills: 0 Ordered: 29-Nov-2022 Giovanni Pardo Start: 29-Nov-2022 End: 10-Dec-2022 Generic Substitution Allowed Micafungin Sodiu m 100 MG Intravenous Solution Reconstituted Quantity: 0 Refills: 0 Ordered: 09-Dec-2022 DO Active min17/nettle/pumpkin/saw pal me (PROSTATE THERAPY ORAL) (20 sources) take 30 mL by mouth three times daily min17/nettle/pumpkin/saw palme (PROSTATE THERAPY ORAL) Take 30 mL by mouth 3 times a day. For wound healing Active take 30 mL by mouth three times daily min17/nettle/pumpkin/saw palme (PROSTATE THERAPY ORAL) Take 30 mL by mouth 3 times a day. For wound healing 0 Active multivitamin (THERAGRAN) per tablet (18 sources) take 1 tablet by brittney th once daily in the morning multivitamin (THERAGRAN) per tablet Take 1 (one) tablet by mouth every morning . Active take 1 tablet by brittney th once daily in the morning multivitamin (THERAGRAN) per tablet Take 1 (one) tablet by mouth every morning . 0 Suspended take 1 tablet by brittney th once daily in the morning multivitamin (THERAGRAN) per tablet Take 1 (one) tablet by mouth every morning . 0 Active take 1 tablet by mouth once patric y multivitamin (THERAGRAN) per tablet Take 1 (one) tablet by mouth daily . 0 Active Multivitamin preparation (3 sources) Start: 04-06-2024 take 1 tablet by mouth once daily Multivitamin Dose = 1 tab(s), Oral, Daily, 0 Refill(s) Start Date: 04/06/24 Status: Ordered take 1 tablet by mouth once patric y Multiple Vitamins oral tablet ; 1 tab(s) orally once a day Quantity: 0 Refills: 0 Ordered: 20-Nov-2022 Caty London Generic Substitution Allowed multivitamin tablet (20 sources) take 1 tablet by brittney th once daily multivitamin tablet Take 1 tablet by mouth daily. Active take 1 tablet by mouth once patric y multivitamin tablet Take 1 tablet by mouth once daily. Active take 1 tablet by mouth once patric y multivitamin tablet Take 1 tablet by mouth once daily. 0 Active take 1 tablet by mouth once patric y multivitamin tablet Take 1 tablet by mouth daily. 0 Active multivitamin with minerals 1 tablet (1 source) Start: 03-31-2023 multivitamin with minerals 1 tablet nitrofurantoin, macrocrystals 100 mg oral capsule (2 sources) Nitrofuran Antibacterial Start: 12-01-2024 take 1 capsule by mouth twice daily at mealtime Nitrofurantoin Macrocrystal 100 mg capsule Active 100 mg PO TWICE A DAY 14 7 0 December 01, 2024 12:00am must administer with a meal/food oxyCODONE hydrochloride 5 mg oral tablet (20 sources) Opioid Agonist Start: 03-10-2024 take 1 tablet by mouth every six hours as needed for pain and pain oxyCODONE (Roxicodone) 5 mg immediate release tablet Indications: Pain, unspecified Take 1 tablet (5 mg) by mouth every 6 hours if needed for severe pain (7 - 10). 03/10/2024 Active Start: 04-15-2023 End: 03-05-2024 take 1 tablet by mouth every six hours as needed for pain and pain oxyCODONE (Roxicodone) 5 mg immediate release tablet Indications: Pain, unspecified Take 1 tablet (5 mg) by mouth every 6 hours if needed for severe pain (7 - 10). 03/10/2024 Active Start: 03-31-2023 End: 04-10-2023 take 1 tablet by mouth every six hours for pain oxyCODONE (Roxicodone) 5 mg immediate release tablet Indications: Hip fracture due to osteoporosis, initial encounter ([facility]) Take 1 tablet (5 mg) by mouth every 6 hours if needed for moderate pain (4 - 6) for up to 1 day. 4 tablet 0 04/07/2023 04/10/2023 Discontinued (Stop Taking at Discharge) oxygen (O2) gas therapy (20 sources) Start: 04-07-2023 take 1 dose by inhalation every twenty-four hours oxygen (O2) gas therapy Indications: Metabolic syndrome Inhale 1 each once every 24 hours. 04/07/2023 Active Start: 04-07-2023 take 1 dose by inhal ation every twenty-four hours oxygen (O2) gas therapy Indications: Metabolic syndrome Inhale 1 each once every 24 hours. 0 04/07/2023 Active oxygen (O2) therapy (4 sources) Start: 03-05-2024 inhalation, Co ntinuous PRN - O2/gases, other, Starting on Fri03/05/24 at 2143, Device: Non-Invasive Ventilation, Rate in liters per minute: 2 LPM, FIO2: 28, Keep O2 Sat Above: 92% Start: 04-02-2023 End: 04-03-2023 2 L/min, inhalation, Continu ous, Starting on Fri04/02/23 at 1615, Phase II/On Unit Titrate supplemental oxygen to maintain oxygen saturation greater than or equal to 92%. Device: Nasal Cannula Rate in liters per minute: 2 LPM Keep O2 Sat Above: 92% Start: 04-02-2023 End: 04-02-2023 oxygen (O2) therapy Start: 03-31-2023 oxygen (O2) th erapy phenazopyridine hydrochloride 200 mg oral tablet (20 sources) Start: 04-06-2024 take 1 mg by mouth three times daily Pyridium 200 mg oral tablet mg = tab(s), Oral, TID, 0 Refill(s) Start Date: 04/06/24 Status: Ordered Start: 09-28-2020 End: 10-01-2020 take 1 tablet by mouth twice daily phenazopyridine 100 MG tablet Take 1 tablet by mouth 2 times daily for 3 days. 6 tablet 0 09/28/2020 Active Start: 09-28-2020 End: 03-23-2024 take 1 tablet by mouth three times daily as needed for pain phenazopyridine 200 MG tablet Take 1 tablet by mouth 3 times daily as needed for Pain for up to 7 days. 21 tablet 0 09/28/2020 09/28/2020 Discontinued (Reorder) polyethylene glycol 3350 31750 mg powder for oral solution (20 sources) Osmotic Laxative Start: 03-31-2023 take 1 dose by mouth once daily Polyethylene glycol 17 g Pack packet Take 1 packet by mouth daily. 06/07/2023 Active polyvinyl alcohol 0.014 ml/ml / povidone 6 mg/ml ophthalmic solution (1 source) Start: 03-07-2024 2 drop, Both E yes, 2 times daily, First dose on Fri03/07/24 at 1215 psyllium 3400 mg powder for oral suspension (1 source) Start: 04-02-2023 1 packet, oral , Daily, First dose on Fri04/02/23 at 1615, Phase II/On Unit Bowel Regimen - for prevention of constipation. Senna Plus (1 source) Start: 04-06-2024 take 1 tablet by mouth once daily at bedtime Senna Plus Dose = 1 tab(s), Oral, qHS, 0 Refill(s) Start Date: 04/06/24 Status: Ordered simethicone 80 mg chewable tablet (20 sources) Start: 03-05-2024 take 1 tablet by mouth every eight hours as needed Start: 04-15-[address] [facility] every eight hours as needed simethicone (Gas-X Ultra-Strength) 180 mg capsule Take 1 capsule (180 mg) by mouth every 8 hours if needed. 04/15/2023 Active simethicone (GAS -X Extra Strength) 125 MG chewable tablet Chew and Swallow 180 mg every 8 (eight) hours as needed for flatulence . Active Simethicone 125 MG Chew Tab tablet Chew 1.44 tablets Every 8 hours as needed. Active sodium bicarbonate 650 mg oral tablet (12 sources) Start: 04-07-2023 End: 04-12-2023 take 1 tablet by mouth twice daily sodium bicarbonate 650 mg tablet Indications: Stage 5 chronic kidney disease not on chronic dialysis (CMS/HCC) Take 1 tablet (650 mg) by mouth 2 times a day for 5 days. 10 tablet 0 04/07/2023 04/12/2023 Active Start: 04-07-2023 End: 04-07-2023 take 2 tablets by mouth twice daily sodium bicarbonate 650 mg tablet Indications: Stage 5 chronic kidney disease not on chronic dialysis (CMS/HCC) Take 2 tablets (1,300 mg) by mouth 2 times a day. 4 tablet 29 04/07/2023 04/07/2023 Discontinued (Reorder) Start: 04-01-2023 sodium bicarbo adriel tablet 1,300 mg Start: 01-06-2023 End: 03-31-2023 sodium bicarbonate 650 mg ta blet Start: 01-06-2023 take 1 tablet by brittney th three times daily Sodium bicarbonate 650 MG tablet Take 1 tablet by mouth 3 times daily. 90 tablet 11 01/06/2023 Active Start: 01-06-2023 take 1 tablet by brittney th once daily Sodium Bicarbonate 650 MG Oral Tablet Take 1 tablet daily Quantity: 0 Refills: 0 Ordered: 04-Feb-2023 Lv Guy MD Start : 04-Feb-2023 Active sulfamethoxazole 400 mg / trimethoprim 80 mg oral tablet (19 sources) Dihydrofolate Reductase Inhibitor Antibacterial, Sulfonamide Antimicrobial Start: 01-11-2023 End: 01-11-2024 take 1 tablet by mouth twice daily sulfamethoxazole-trimethoprim (Bactrim) 400-80 mg tablet TAKE 1 TABLET BY MOUTH 2 TIMES A DAY 10 tablet 0 01/11/2023 05/23/2023 Discontinued (Other) Start: 01-11-2023 End: 03-31-2023 sulfamethoxazole-trimethopri m (Bactrim) 400-80 mg tablet Start: 10-05-2020 End: 10-12-2020 take 1 tablet by mouth once daily sulfamethoxazole-trimethoprim 800-160 MG per tablet Take 1 tablet by mouth daily for 7 days. 7 tablet 0 10/05/2020 10/12/2020 Active Start: 10-10-2017 End: 09-28-2020 take 1 tablet by mouth twice daily sulfamethoxazole-trimethoprim 800-160 MG Tab per tablet Indications: Dysuria Take 1 tablet by mouth 2 times daily. 20 tablet 0 10/10/2017 09/28/2020 Discontinued (Stop Taking at Discharge) take 1 tablet by brittney th every twelve hours Bactrim 400 mg-80 mg oral tablet ; 1 tab (s) orally every 12 hours x 5 days Quantity: 0 Refills: 0 Ordered: 11-Jan-2023 Adele Velazquez Generic Substitution Allowed traZODone hydrochloride 100 mg oral tablet (20 sources) Serotonin Reuptake Inhibitor Start: 03-31-2023 traZODone (Desyrel) tablet 100 mg Start: 01-11-2023 End: 01-11-2024 take 1 tablet by mouth once daily at bedtime traZODone (Desyrel) 50 mg tablet TAKE 1 TABLET BY MOUTH EVERY DAY AT BEDTIME 30 tablet 01/11/2023 01/11/2024 Active Completed/Discontinued Medications Medication Drug Class(es) Dates Sig (Normalized) Sig (Original) acetaminophen 325 mg oral tablet (20 sources) Start: 03-09-2024 End: 03-09-2024 take 975 mg by mouth once as needed for pain 975 mg, oral, Once, On Fri03/09/24 at 1000, For 1 dose, Preprocedure, Administer with small amount of water preoperatively., If ordered PRN for pain, nurse is permitted to administer this medication for higher pain scores based on patient preference? Yes Start: 03-05-2024 take 1 tablet by brittney th every four hours as needed 650 mg, oral, Every 4 hours PRN, pain mild (1-3), first line, Starting on Fri03/05/24 at 1155, If ordered PRN for pain, nurse is permitted to administer this medication for higher pain scores based on patient preference? Yes Start: 06-24-2023 End: 06-24-2023 acetaminophen (Tylenol) tabl et 975 mg Start: 06-12-2023 End: 06-12-2023 acetaminophen (Tylenol) tabl et 650 mg Start: 03-31-2023 take 1 tablet by brittney th every four hours as needed acetaminophen (Tylenol) tablet 650 mg Start: 11-29-2022 take 2 tablets by mo uth every four hours as needed acetaminophen 325 mg oral tablet ; 2 tab(s) orally every 4 hours, As needed, Temp Greater Than or Equal to 38.0 C Quantity: 0 Refills: 0 Ordered: 29-Nov-2022 Kyaw Arikcarol Start: 29-Nov-2022 Generic Substitution Allowed take 1 tablet by brittney th every six hours as needed acetaminophen 500 MG tablet Take 1 tablet by mouth every 6 hours as needed for Pain. Active Acetaminophen 32 5 MG Oral Tablet Quantity: 0 Refills: 0 Ordered: 09-Dec-2022 DO Active acetaminophen 325 mg / oxyCODONE hydrochloride 5 mg oral tablet (5 sources) Opioid Agonist Start: 05-30-2023 End: 05-30-2023 oxyCODONE-acetaminophen (Percocet) 5-325 mg per tablet 1 tablet Start: 04-15-2023 End: 05-30-2023 take 2 tablets by mouth once daily oxyCODONE-acetaminophen (Percocet) 5-325 mg tablet Take 2 tablets by mouth once daily. 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 60 tablet 11 08/12/2019 Active Start: 06-12-2017 End: 08-12-2019 take 1 tablet by mouth once daily allopurinol 100 MG Tab tablet Take 1 tablet by mouth daily. 30 tablet 5 06/03/2019 08/12/2019 Discontinued take 0.5 tablet by m outh every other day allopurinol 100 mg oral tablet ; 0.5 tab(s) orally every other day Quantity: 0 Refills: 0 Ordered: 11-Jan-2023 Adele Velazquez Generic Substitution Allowed alteplase (Cathflo Activase) 2 mg injection (2 sources) Start: 03-10-2024 End: 03-10-2024 alteplase (Cathflo Activase) 2 mg injection Indications: Urinary tract infection with hematuria, site unspecified 2 mL (2 mg) by intra-catheter route 1 time for 1 dose. 2 mL 03/10/2024 03/10/2024 Start: 03-08-2024 End: 03-08-2024 alteplase (Cathflo Activase) 2 mg injection Indications: Infection due to extended-spectrum aand-brgtzgstf-jygrwrlnd Escherichia coli 2 mL (2 mg) by intra-catheter route 1 time for 1 dose. 2 mL 03/08/2024 03/08/2024 aluminum hydroxide 40 mg/ml / magnesium hydroxide 40 mg/ml / simethicone 4 mg/ml oral suspension (1 source) Start: 02-09-2024 End: 02-09-2024 take 30 mL by mouth once 30 mL, oral, Once, On Fri02/09/24 at 2315, For 1 dose amLODIPine 5 mg oral tablet (4 sources) Dihydropyridine Calcium Channel Priyanka Start: 03-11-2021 End: 12-26-2022 take 1 tablet by mouth once daily amLODIPine (Norvasc) 5 MG tablet Take 1 tablet by mouth daily. 90 tablet 3 03/11/2021 12/26/2022 Discontinued amoxicillin 500 mg / clavulanate 125 mg oral tablet (4 sources) Penicillin-class Antibacterial End: 07-10-2023 take 1 tablet by mouth twice daily amoxicillin-clavul anate (AUGMENTIN) 500-125 mg per tablet Take 1 (one) tablet by mouth 2 (two) times a day . 0 07/10/2023 Discontinued (Therapy completed) azithromycin 250 mg oral tablet (1 source) Macrolide Antimicrobial Start: 04-02-2023 End: 04-03-2023 azithromycin (Zithromax) tablet 500 mg azithromycin (Zithromax) in dextrose 5 % in water (D5W) 250 mL IV 500 mg (2 sources) Start: 04-01-2023 End: 04-02-2023 azithromycin (Zithromax) in dextrose 5 % in water (D5W) 250 mL IV 500 mg Start: 03-31-2023 End: 03-31-2023 azithromycin (Zithromax) in dextrose 5 % in water (D5W) 250 mL IV 500 mg betamethasone 0.5 mg/ml / clotrimazole 10 mg/ml topical cream (3 sources) Azole Antifungal, Corticosteroid Start: 05-02-2021 End: 12-26-2022 clotrimazole-betamethasone 1-0.05 % Cream Indications: Balanitis Apply to affected area twice a day until symptoms resolve. 15 g 1 05/02/2021 12/26/2022 Discontinued calcium chloride 0.0014 meq/ml / potassium chloride 0.004 meq/ml / sodium chloride 0.103 meq/ml / sodium lactate 0.028 meq/ml injectable solution (1 source) Start: 04-02-2023 End: 04-02-2023 lactated Ringer's infusion ceFAZolin 1000 mg injection (3 sources) Cephalosporin Antibacterial Start: 09-19-2023 End: 09-19-2023 intravenous, Once PRN Procedure, Starting on Fri09/19/23 at 1522, For 1 dose, Intraprocedure Start: 04-02-2023 End: 04-03-2023 take 2 g intravenously every eight hours ceFAZolin in dextrose (iso-os) (Ancef) IVPB 2 g cefdinir 300 mg oral capsule (7 sources) Cephalosporin Antibacterial Start: 11-09-2024 End: 12-01-2024 take 1 capsule by mouth every twelve hours Cefdinir 300 mg capsule Discontinued 300 mg PO Q12H 14 0 November 09, 2024 12:00am December 01, 2024 11:36am Start: 08-16-2024 End: 10-22-2024 take 1 capsule by mouth every twelve hours Cefdinir 300 mg capsule Discontinued 300 mg PO Q12H 14 August 16, 2024 12:00am October 22, 2024 6:19pm cefTRIAXone 2000 mg injection (4 sources) Cephalosporin Antibacterial Start: 05-11-2024 End: 05-11-2024 2 g, intravenous, at 100 mL/hr, Administer over 30 Minutes, Once, On Fri05/11/24 at 2115, For 1 dose, premix bag, Suspected Indication (Select all that apply): Urinary Tract Infection, Type of Therapy: Empiric, Type of Urinary Tract Infection: Complicated, Indications: Urinary Tract Infection Start: 05-30-2023 End: 05-30-2023 cefTRIAXone (Rocephin) 2 g I V in dextrose 5% 50 mL Start: 03-31-2023 End: 04-03-2023 cefTRIAXone (Rocephin) IVPB 1 g ciprofloxacin 500 mg oral tablet (20 sources) Quinolone Antimicrobial Start: 10-22-2024 End: 11-09-2024 take 1 tablet by mouth twice daily Ciprofloxacin Hcl 500 mg tablet Discontinued 500 mg PO TWICE A DAY October 22, 2024 12:00am November 09, 2024 3:00pm Start: 08-13-2024 End: 08-16-2024 take 1 tablet by mouth twice daily Ciprofloxacin Hcl (Cipro) 500 mg tablet Discontinued 500 mg PO TWICE A DAY 20 August 13, 2024 12:00am August 16, 2024 10:20pm Acute urinary tract infection Urinary tract infection, site not specified Start: 07-01-2024 End: 07-14-2024 Ciprofloxacin Hcl 500 mg Tab let Discontinued 500 mg PO Q18H 6 July 01, 2024 1:00am July 14, 2024 2:32pm Start: 03-19-2023 End: 03-23-2024 Ciprofloxacin 500 MG tablet 2 times daily. 03/19/2023 03/23/2024 Discontinued Start: 09-28-2020 End: 10-12-2020 take 1 tablet by mouth once daily ciprofloxacin 500 MG tablet Take 1 tablet by mouth daily for 14 days. 14 tablet 0 10/12/2020 10/12/2020 Discontinued (Error) colchicine 0.6 mg oral table t (17 sources) Start: 08-13-2019 End: 09-28-2020 colchicine (Colcrys) 0.6 MG tablet Take 1 tablet by mouth daily. Take 2 tablets by mouth at onset of gout take 1 tablet 1 hour later 1 tablet twice daily until gout subsides. 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 60 tablet 5 06/12/2017 08/12/2019 Discontinued 1 ml darbepoetin kacie 0.06 mg/ml injection (1 source) Erythropoiesis-sti mulating Agent Start: 04-05-2023 End: 04-05-2023 darbepoetin kacie in polysorbat (Aranesp) injection 60 mcg 1 ml dexamethasone phosphate 10 mg/ml injection (2 sources) Corticosteroid Start: 03-09-2024 End: 03-09-2024 5 mg, intravenous, Once, On Fri03/09/24 at 1015, For 1 dose Start: 06-24-2023 End: 06-24-2023 dexAMETHasone (PF) (Decadron ) injection 6 mg doxycycline monohydrate 100 mg oral capsule (8 sources) Tetracycline-class Drug Start: 06-06-2024 End: 06-28-2024 take 1 capsule by mouth twice daily Doxycycline Monohydrate 100 mg Capsule Discontinued 100 mg PO TWICE A DAY 14 0 June 06, 2024 1:00am June 28, 2024 2:22pm Start: 08-13-2023 End: 10-20-2023 take 1 tablet by mouth twice daily doxycycline hyclate (VIBRA-TABS) 100 MG tablet Take 1 (one) tablet (100 mg total) by mouth 2 (two) times a day . 20 tablet 0 08/13/2023 10/20/2023 Discontinued epoetin kacie 21710 unt/ml injectable solution (20 sources) Erythropoiesis-stimulating Agent Start: 02-04-2023 Procrit 54955 UNIT/ML Injection Solution INJECT SUBCUTANEOUSLY DIRECTED. Quantity: 0 Refills: 0 Ordered: 04-Feb-2023 Lv Guy MD Start : 04-Feb-2023 Active Start: 01-01-2023 Procrit 20,000 unit/mL injection 1 mL (20,000 Units). EVERY 14 DAYS-DUE 04/01/23 01/01/2023 Active Start: 01-01-2023 Procrit 20,000 unit/mL injection Start: 12-26-2022 End: 03-23-2024 epoetin kacie (Procrit) 94515 UNIT/ML Solution Indications: Anemia in stage 4 chronic kidney disease Inject 1 mL under the skin every 14 days. 6 mL 5 12/26/2022 03/23/2024 Discontinued epoetin kacie ([place] OCRIT) 2,000 unit/mL injection Inject 1 mL (2,000 Units total) under the skin once Every 14 days . Active Procrit 20,000 u nits/mL injectable solution ; 1 dose(s) injectable every 2 weeks. Patient has not started yet as of 01/08/2023 Quantity: 0 Refills: 0 Ordered: 08-Jan-2023 Ana Lilia Zurita Generic Substitution Allowed 2 ml famotidine 10 mg/ml injection (3 sources) Histamine-2 Receptor Antagonist Start: 03-09-2024 End: 03-09-2024 20 mg, intravenous, Administer over 2 Minutes, Once, On Fri03/09/24 at 1000, For 1 dose, Preprocedure Start: 02-09-2024 End: 02-09-2024 40 mg, intravenous, Administ er over 2 Minutes, Once, On 02/09/24 at 2315, For 1 dose Start: 06-24-2023 End: 06-24-2023 famotidine PF (Pepcid) injec tion 20 mg 1 ml fentaNYL 0.05 mg/ml injection (2 sources) Opioid Agonist Start: 09-19-2023 End: 09-19-2023 intravenous, Once PRN Procedure, Starting on Fri09/19/23 at 1521, For 1 dose, Intraprocedure ferrous sulfate 325 mg oral tablet (20 sources) Start: 01-27-2023 FeroSuL 325 mg (65 mg iron) tablet Start: 01-27-2023 End: 03-23-2024 take 1 tablet by mouth twice daily ferrous sulfate 325 (65 Fe) MG tablet Take 1 tablet by mouth 2 times daily. 60 tablet 2 01/27/2023 03/23/2024 Discontinued Start: 01-27-2023 End: 03-05-2024 take 1 tablet by mouth three times daily FeroSuL 325 mg (65 mg iron) tablet Take 1 tablet by mouth 3 times a day. 01/27/2023 03/05/2024 Discontinued (Entered in Error) 12 hr guaiFENesin 1200 mg extended release oral tablet (5 sources) Start: 06-06-2024 End: 06-28-2024 take 1 tablet by mouth twice daily, then take 1 tablet by mouth every twelve hours Guaifenesin (Mucus Relief Er) 1,200 mg Tablet Extended Release 12hr Discontinued 1200 mg PO TWICE A DAY 20 0 June 06, 2024 1:00am June 28, 2024 2:22pm HYDROmorphone (3 sources) Opioid Agonist Start: 06-24-2023 End: 06-24-2023 HYDROmorphone (Dilaudid) injection 0.5 mg Start: 04-02-2023 End: 04-02-2023 HYDROmorphone (Dilaudid) injection 0.5 mg Start: 03-31-2023 End: 04-02-2023 take 1 mg intravenously every four hours as needed HYDROmorphone (Dilaudid) injection 1 mg ibuprofen 400 mg oral tablet (20 sources) Nonsteroidal Anti-inflammatory Drug Start: 08-19-2022 End: 03-05-2023 ibuprofen 400 mg tablet iohexol (OMNIPAQUE) 300 MG/ML vial (2 sources) Start: 10-17-2020 End: 10-17-2020 iohexol (OMNIPAQUE) 300 MG/ML vial Start: 09-28-2020 End: 09-28-2020 iohexol (OMNIPAQUE) 300 MG/M L vial iohexol (OMNIPaque) 350 mg iodine/mL solution 50 mL (1 source) Start: 09-19-2023 End: 09-19-2023 50 mL, intravenous, Once in imaging, Starting on Fri09/19/23 at 1505, For 1 dose iron sucrose (Venofer) 200 m g in sodium chloride 0.9% 100 mL IVPB (1 source) Start: 04-05-2023 End: 04-05-2023 iron sucrose (Venofer) 200 m g in sodium chloride 0.9% 100 mL IVPB iron sucrose complex (IRON SUCROSE 1 MG/ML NS DILUTION-SIMPLE) (4 sources) Start: 05-20-2023 End: 05-30-2023 iron sucrose complex (IRON SUCROSE 1 MG/ML NS DILUTION-SIMPLE) 100 mg. 0 05/20/2023 05/30/2023 Discontinued (Entered in Error) Start: 05-20-2023 End: 06-10-2023 iron sucrose complex (IRON S UCROSE 1 MG/ML NS DILUTION-SIMPLE) 100 mg. 0 05/20/2023 06/10/2023 Active levothyroxine sodium 0.088 mg oral tablet (20 sources) l-Thyroxine Start: 04-06-2024 levothyroxine 88 mcg (0.088 mg) oral tablet Dose : 88 mcg = 1 tab(s), Oral, qDayAC, 0 Refill(s) Start Date: 04/06/24 Status: Ordered Start: 03-07-2021 End: 06-28-2024 take 1 tablet by mouth once daily Levothyroxine 88 mcg tablet Discontinued 88 ug PO DAILY June 03, 2024 1:00am June 28, 2024 2:22pm Start: 10-25-2020 take 1 tablet by brittney once daily levothyroxine 88 MCG tablet Take 1 tablet by mouth daily. 30 tablet 1 10/25/2020 Active Start: 04-08-2018 End: 08-21-2020 take 1 tablet by mouth once daily levothyroxine 88 MCG tablet Take 1 tablet by mouth daily. 30 tablet 1 08/21/2020 Active End: 05-30-2023 take 0.88 mg by mouth once daily levothyroxine (Synthroid) 50 mcg tablet Take 0.88 mg by mouth once daily. 0 05/30/2023 Discontinued (Entered in Error) lidocaine hydrochloride 20 mg/ml mucous membrane topical solution (20 sources) Antiarrhythmic, Amide Local Anesthetic Start: 02-09-2024 End: 02-09-2024 10 mL, Mouth/Throat, Once, On 02/09/24 at 2315, For 1 dose lidocaine (XYLOC TONIA) 2 % jelly Apply topically as needed Apply to penis topically as needed before catheter change. . Active LIDOCAINE TOP Ap ply 2 % topically every 24 (twenty four) hours if needed. Apply to penis topically every 24 hrs as needed before catheter change. Active LIDOCAINE TOP Ap ply 2 % topically every 24 (twenty four) hours if needed. Apply to penis topically every 24 hrs as needed before catheter change. 0 Active lisinopril 10 mg oral tablet (20 sources) Angiotensin Converting Enzyme Inhibitor Start: 04-16-2021 End: 12-26-2022 take 1 tablet by mouth once daily lisinopril 10 MG tablet Indications: Benign essential hypertension Take 1 tablet by mouth daily. 90 tablet 3 04/16/2021 12/26/2022 Discontinued Start: 04-08-2018 take 1 tablet by brittney th once daily lisinopril (ZESTRIL) 20 MG Tab Take 1 tablet by mouth daily. 90 tablet 3 04/08/2018 Active loperamide hydrochloride 2 mg oral capsule (6 sources) Opioid Agonist Start: 07-01-2024 End: 07-14-2024 take 1 capsule by mouth three times daily as needed for diarrhea Loperamide 2 mg Capsule Discontinued 2 mg PO 3 TIMES DAILY NEEDED as needed for DIARRHEA 0 0 July 01, 2024 1:00am July 14, 2024 2:32pm Start: 04-06-2024 loperamide 2 m g oral tablet Dose : 2 mg = 1 tab(s), Oral, q4h, PRN as needed for loose stool, # 24 tab(s), 0 Refill(s) Start Date: 04/06/24 Status: Ordered meloxicam 15 mg oral tablet (2 sources) Nonsteroidal Anti-inflammatory Drug End: 08-12-2019 meloxicam 15 MG Tab take 15 mg by mouth daily.. 0 08/12/2019 Discontinued (Other (suppress cancel msg)) methylPREDNISolone 125 mg injection (2 sources) Corticosteroid Start: 02-09-2024 End: 02-09-2024 125 mg, intravenous, Once, On Fri02/09/24 at 2350, For 1 dose Start: 02-09-2024 End: 02-09-2024 Starting on Fri02/09/24 at 23 48, For 1 dose, Created by cabinet override 5 ml midazolam 1 mg/ml injection (2 sources) Benzodiazepine Start: 03-09-2024 End: 03-09-2024 1 mg, intravenous, Once, On Fri03/09/24 at 1000, For 1 dose, Preprocedure Start: 09-19-2023 End: 09-19-2023 intravenous, Once PRN Proced ure, Starting on Fri09/19/23 at 1508, For 1 dose, Intraprocedure midodrine hydrochloride 5 mg oral tablet (17 sources) alpha-Adrenergic Agonist Start: 03-23-2024 End: 06-28-2024 take 1 tablet by mouth twice daily Midodrine 5 mg tablet Discontinued 5 mg PO TWICE A DAY June 03, 2024 1:00am June 28, 2024 2:23pm 1 ml morphine sulfate 4 mg/ml prefilled syringe (2 sources) Opioid Agonist Start: 05-11-2024 End: 05-11-2024 4 mg, intravenous, Once, On Fri05/11/24 at 2115, For 1 dose Multi-Vitamin Oral Tablet (5 sources) Multi-Vitamin Oral Tablet Quantity: 0 Refills: 0 Ordered: 09-Dec-2022 DO Active 24 hr NIFEdipine 30 mg extended release oral tablet (9 sources) Dihydropyridine Calcium Channel Priyanka Start: 12-26-2022 End: 03-31-2023 NIFEdipine CC 30 mg 24 hr tablet Start: 12-26-2022 take 1 tablet by brittney once daily NIFEdipine (Adalat CC) 30 MG Tab SR 24 HR Take 1 tablet by mouth daily. 90 tablet 3 12/26/2022 Active Start: 11-29-2022 End: 12-13-2022 take 1 tablet by mouth once daily NIFEdipine 30 mg oral tablet, extended release ; 1 tab(s) orally once a day Quantity: 15 Refills: 0 Ordered: 29-Nov-2022 Giovanni Pardo Start: 29-Nov-2022 End: 13-Dec-2022 Generic Substitution Allowed nitrofurantoin, macrocrystals 25 mg / nitrofurantoin, monohydrate 75 mg oral capsule (5 sources) Nitrofuran Antibacterial Start: 08-21-2020 End: 07-10-2023 take 1 capsule by mouth twice daily nitrofurantoin, macrocrystal-monohydrate, 100 MG capsule Indications: Acute urinary tract infection Take 1 capsule by mouth 2 times daily for 10 days. Take w/ food/milk 20 capsule 0 08/21/2020 08/31/2020 nystatin 412323 unt/ml topical cream (5 sources) Polyene Antifungal Start: 06-03-2024 End: 10-22-2024 Nystatin 100,000 unit/gram cream Discontinued 1 NMA TOPICAL TWICE A DAY as needed for skin irritation June 03, 2024 1:00am October 22, 2024 6:20pm 2 ml ondansetron 2 mg/ml injection (20 sources) Serotonin-3 Receptor Antagonist Start: 05-11-2024 End: 05-11-2024 4 mg, intravenous, Once, On Fri05/11/24 at 1915, For 1 dose, When administering via IV Push, administer over 3-5 minutes. Start: 04-06-2024 End: 04-11-2024 Zofran 4 mg oral tablet Dose : 4 mg = 1 tab(s), Oral, q12h, PRN Nausea/Vomiting, # 4 tab(s), 0 Refill(s) Start Date: 04/06/24 Stop Date: 04/11/24 Status: Ordered Start: 03-09-2024 End: 03-09-2024 4 mg, intravenous, Once, On Fri03/09/24 at 1000, For 1 dose, Preprocedure, When administering via IV Push, administer over 3-5 minutes. Start: 03-05-2024 take 4 mg intravenou sly every eight hours as needed Start: 06-24-2023 End: 06-24-2023 ondansetron (Zofran) injecti on 4 mg Start: 05-08-2023 End: 03-05-2024 take 1 tablet by mouth every twelve hours for nausea ondansetron (Zofran) 4 mg tablet Take 1 tablet (4 mg) by mouth every 12 hours if needed for nausea. 05/08/2023 03/05/2024 Discontinued (Therapy completed) Start: 04-04-2023 take 4 mg intravenou sly every six hours as needed ondansetron (Zofran) injection 4 mg Start: 04-02-2023 End: 04-02-2023 ondansetron (Zofran) injecti on 4 mg take 1 tablet by brittney th every twelve hours as needed for nausea ondansetron (ZOFRAN) 4 MG tablet Take 1 (one) tablet (4 mg total) by mouth every 12 (twelve) hours as needed for nausea . Active take 1 tablet by brittney th every eight hours as needed Ondansetron 4 MG tablet Take 1 tablet by mouth every 8 hours as needed for Nausea / Vomiting. Active oseltamivir 30 mg oral capsule (5 sources) Neuraminidase Inhibitor Start: 07-16-2024 End: 10-22-2024 Oseltamivir (Tamiflu) 30 mg capsule Discontinued 30 mg PO DIRECTED 3 3 0 July 16, 2024 1:00am October 22, 2024 6:20pm Take 1 after each dialysis for a total of 3 doses oxybutynin chloride 5 mg oral tablet (20 sources) Cholinergic Muscarinic Antagonist Start: 06-03-2024 End: 10-22-2024 take 1 tablet by mouth twice daily Oxybutynin Chloride 5 mg tablet Discontinued 5 mg PO TWICE A DAY June 03, 2024 1:00am October 22, 2024 6:23pm bladder Start: 03-01-2024 take 1 tablet by brittney th twice daily oxybutynin 5 mg oral tablet TAKE 1 Tablet TWICE DAILY Start Date: 04/06/24 Status: Ordered Start: 03-31-2023 End: 03-23-2024 take 1 tablet by mouth twice daily oxyBUTYnin CR 5 MG Tab SR 24 HR tablet Take 1 tablet by mouth 2 times daily. 03/31/2023 03/23/2024 Discontinued Start: 02-26-2023 End: 04-03-2023 oxybutynin (Ditropan) 5 mg t ablet 1 tablet (5 mg) 2 times a day. 800am and 1700 02/26/2023 Active Start: 05-02-2021 End: 12-26-2022 take 1 tablet by mouth twice daily oxybutynin 5 MG tablet Take 1 tablet by mouth 2 times daily. 60 tablet 1 05/02/2021 12/26/2022 Discontinued Start: 09-28-2020 End: 10-17-2020 take 1 tablet by mouth three times daily as needed for muscle spasms oxybutynin 5 MG tablet Take 1 tablet by mouth 3 times daily as needed (bladder spasm/urinary frequency). 30 tablet 1 10/17/2020 Active PERFLUTREN LIPID MICROSPHERE 1.3 ML/8.7ML (1 source) Start: 09-01-2020 End: 09-01-2020 PERFLUTREN LIPID MICROSPHERE 1.3 ML/8.7ML Ralston Bismuth 262 MG CHEW (5 sources) Ralston Bismuth 262 MG CHEW Quantity: 0 Refills: 0 Ordered: 09-Dec-2022 DO Active piperacillin 2000 mg / tazobactam 250 mg injection (1 source) Penicillin-clas s Antibacterial, beta Lactamase Inhibitor Start: 03-05-2024 End: 03-08-2024 take 2.25 g intravenously every eight hours 2.25 g, intravenous, Administer over 0.5 Hours, Every 8 hours, First dose on Fri03/05/24 at 1400, premix bag, Dosing of this medication varies based on severity of illness. Does this patient have sepsis or concern for sepsis (probable or documented infection plus systemic manifestations of infection)? Yes, Suspected Indication (Select all that apply): Urinary Tract Infection, Type of Therapy: Empiric, Type of Urinary Tract Infection: Pyelonephritis, Indications: Urinary Tract Infection predniSONE 20 mg oral tablet (15 sources) Start: 07-16-2024 End: 10-22-2024 take 1 tablet by mouth once daily Prednisone 20 mg tablet Discontinued 20 mg PO DAILY 7 July 16, 2024 1:00am October 22, 2024 6:23pm Start: 06-06-2024 End: 06-28-2024 take 1 tablet by mouth twice daily Prednisone 20 mg tablet Discontinued 20 mg PO TWICE A DAY 10 June 06, 2024 1:00am June 28, 2024 2:24pm Start: 04-08-2023 End: 04-12-2023 predniSONE (Deltasone) 20 mg tablet Indications: Acute gout involving toe of right foot, unspecified cause Take 1 tablet (20 mg) by mouth once daily for 4 days. Do not start before April 08, 2023. 4 tablet 0 04/08/2023 04/12/2023 Active Start: 04-06-2023 predniSONE (De ltasone) tablet 20 mg Probiotic Product (PROBIOTIC PO) (14 sources) End: 12-26-2022 Probiotic Product (PROBIOTIC PO) Take by mouth daily. 0 12/26/2022 Discontinued Probiotic Produc t (PROBIOTIC PO) Take by mouth daily. 0 Active regadenoson (LEXISCAN) injection 0.4 mg (1 source) Start: 09-01-2020 End: 09-01-2020 regadenoson (LEXISCAN) injection 0.4 mg 0.25 mg, 0.5 mg dose 1.5 ml semaglutide 1.34 mg/ml pen injector (4 sources) Start: 03-11-2021 End: 12-26-2022 Semaglutide,0.25 or 0.5MG/DOS, (Ozempic, 0.25 or 0.5 MG/DOSE,) 2 MG/1.5ML Solution Pen-injector Inject 0.25 mg under the skin once a week. 1.5 mL 0 03/11/2021 12/26/2022 Discontinued sertraline 50 mg oral tablet (20 sources) Serotonin Reuptake Inhibitor Start: 04-06-2024 sertraline 100 mg or al tablet Dose : 100 mg = 1 tab(s), Oral, qDay, # 30 tab(s), 0 Refill(s) Start Date: 04/06/24 Status: Ordered Start: 05-05-2023 End: 06-28-2024 take 1 tablet by mouth once daily Sertraline 50 mg tablet Discontinued 50 mg PO DAILY June 03, 2024 1:00am June 28, 2024 2:24pm Start: 05-05-2023 End: 03-05-2024 take 3 tablets by mouth once daily sertraline (Zoloft) 50 mg tablet Take 3 tablets (150 mg) by mouth once daily. 05/05/2023 03/05/2024 Discontinued (Therapy completed) End: 10-29-2023 take 1 tablet by mouth once daily in the morning sertraline (ZOLOFT) 100 MG tablet Take 1 (one) tablet (100 mg total) by mouth every morning . 0 10/29/2023 Discontinued (Stop Taking at Discharge) sevelamer carbonate 800 mg oral tablet (17 sources) Phosphate Binder Start: 11-18-2023 End: 11-09-2024 take 1 tablet by mouth three times daily at mealtime Sevelamer Carbonate 800 mg tablet Discontinued 800 mg PO 3 TIMES DAILY WITH MEALS June 03, 2024 1:00am November 09, 2024 3:04pm blood pressure take 1 tablet by brittney th three times daily sevelamer HCl (Renagel) 800 mg tablet Ta ke 1 tablet (800 mg) by mouth 3 times daily (morning, midday, late afternoon). Swallow tablet whole; do not crush, break, or chew. Active simvastatin 20 mg oral tablet (20 sources) HMG-CoA Reductase Inhibitor Start: 06-23-2023 End: 06-28-2024 take 1 tablet by mouth once daily in the evening Simvastatin 20 mg tablet Discontinued 20 mg PO EVERY EVENING June 03, 2024 1:00am June 28, 2024 2:25pm 1000 ml sodium chloride 9 mg/ml injection (20 sources) Start: 03-09-2024 End: 03-09-2024 take 20 mL intravenously every hour 20 mL/hr, intravenous, Continuous, Starting on Fri03/09/24 at 1000 Start: 06-24-2023 sodium chlorid e 0.9% infusion Start: 06-12-2023 End: 06-12-2023 sodium chloride 0.9 % bolus 500 mL Start: 05-30-2023 sodium chlorid e 0.9% infusion Start: 03-31-2023 End: 04-01-2023 take 75 mL intravenously every hour 75 mL/hr, intraven ous, Continuous, Starting on Fri03/31/23 at 1645, For 24 days Start: 10-17-2020 End: 10-17-2020 sodium chloride 0.9 % irriga tion Start: 10-17-2020 End: 10-17-2020 sodium chloride 0.9% IV solu tion Start: 09-28-2020 End: 09-28-2020 sodium chloride 0.9 % irriga tion Start: 09-28-2020 End: 09-28-2020 sodium chloride 0.9% IV solu tion sodium chloride (Saline NasaL) 0.65 % nasal spray Instill 1 (one) spray into each nostril as needed (for dryness) . Active Sodium chloride 0.65 % Solution nasal spray 1 spray by Nasal route as needed. Active sodium zirconium cyclosilicate 41819 mg powder for oral suspension (1 source) Start: 03-05-2024 End: 03-07-2024 take 10 g by mouth every eight hours 10 g, oral, Every 8 hours, First dose on Fri03/05/24 at 1215, For 6 doses, Empty entire contents of packet(s) into 45 mL water. Stir well and administer immediately. If powder remains, rinse glass with water and administer. tamsulosin hydrochloride 0.4 mg oral capsule (20 sources) alpha-Adrenerg ic Priyanka Start: 03-14-2021 End: 12-26-2022 take 2 capsules by mouth once daily Tamsulosin HCl 0.4 MG capsule Take 2 capsules by mouth daily. 60 capsule 11 03/14/2021 12/26/2022 Discontinued Start: 10-10-2017 End: 09-28-2020 take 1 capsule by mouth at bedtime Tamsulosin HCl 0.4 MG Cap capsule Indications: Benign prostatic hyperplasia with incomplete bladder emptying Take 1 capsule by mouth at bedtime. 30 capsule 0 10/10/2017 Active TC-99M Cardiolite (Sestamibi) IVPB 5-30 millicurie (1 source) Start: 09-01-2020 End: 09-01-2020 TC-99M Cardiolite (Sestamibi) IVPB 5-30 millicurie tranexamic acid 650 mg oral tablet (1 source) Antifibrinolytic Agent Start: 04-02-2023 End: 04-02-2023 tranexamic acid (Lysteda) tablet 1,625 mg trimethoprim 100 mg oral tablet (4 sources) Dihydrofolate Reductase Inhibitor Antibacterial Start: 09-06-2020 End: 10-06-2020 take 1 tablet by mouth once daily trimethoprim 100 MG tablet Take 1 tablet by mouth daily. 30 tablet 5 09/06/2020 09/28/2020 Discontinued (Stop Taking at Discharge) water 1000 mg/ml irrigation solution (1 source) Start: 09-28-2020 End: 09-28-2020 sterile water irrigation Problems Active Problems Problem Classification Problem Date Documented Date Episodic/Chronic Acute and unspecified renal failure (1 source) Renal failure syndrome; Translations: [Renal failure, unspecified] 01-08-2023 Chronic Bacterial infection; unspecified site (7 sources) Infection due to ESBL Escherichia coli; Translations: [Other bacterial infections of unspecified site] Onset: 05-30-2003-08-2024 Episodic Cancer of bladder (1 source) Malignant tumor of urinary bladder; Translations: [Malignant neoplasm of bladder, unspecified] Chronic Cancer of bladder (1 source) Personal history of malignant neoplasm of bladder; Translations: [Personal history of malignant neoplasm of bladder] Onset: 01-12-20 Episodic Cancer of prostate (11 sources) Malignant tumor of prostate; Translations: [Malignant neoplasm of prostate] Onset: 12-27-1912-26-2022 Chronic Cancer of prostate (20 sources) History of malignant neoplasm of prostate; Translations: [Personal history of malignant neoplasm of prostate] Onset: 02-05-20 17 02-04-2017 Episodic Chronic kidney disease (20 sources) Anemia; Translations: [Chronic kidney disease, stage 4 (severe)] Onset: 12-13-19 Resolved : 04-07-2012-26-2022 Chronic Comment on above: HD MWF Chronic ulcer of skin (3 sources) Pressure ulcer of sacral region, unspecified stage; Translations: [Pressure ulcer of contiguous site of back, buttock and hip, stage 2] Onset: 11-30-1906-23-2023 Chronic Coagulation and hemorrhagic disorders (20 sources) Blood coagulation disorder; Translations: [Coagulation defect, unspecified] Onset: 04-14-20 23 05-23-2023 Chronic Complication of device; implant or graft (19 sources) Infection and inflammatory reaction due to other urinary catheter, initial encounter; Translations: [Complication of urinary catheter] Onset: 01-11-20 Episodic Complications of surgical procedures or medical care (3 sources) Hemodialysis-associated hypotension; Translations: [Hypotension of hemodialysis] Onset: 08-01-19 24 09-09-2024 Chronic Complications of surgical procedures or medical care (8 sources) Postoperative wound infection; Translations: [Infection following a procedure, other surgical site, initial encounter] Onset: 03-05-2008-13-2023 Episodic Coronary atherosclerosis and other heart disease (1 source) Cardiac chest pain; Translations: [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] 07-15-2023 Chronic Deficiency and other anemia (1 source) Anemia in chronic kidney disease; Translations: [Anemia in chronic kidney disease] Onset: 01-12-20 Chronic Deficiency and other anemia (1 source) Iron deficiency anemia due to blood loss; Translations: [Iron deficiency anemia secondary to blood loss (chronic)] 03-26-2023 Chronic Deficiency and other anemia (1 source) Chronic anemia; Translations: [Anemia, unspecified] 05-30-2023 Episodic Disorders of lipid metabolism (20 sources) Hyperlipidemia; Translations: [Hyperlipidemia, unspecified] Onset: 03-05-2010-01-2016 Chronic Diverticulosis and diverticulitis (1 source) Diverticulosis of intestine, part unspecified, without perforation or abscess without bleeding; Translations: [Dvrtclos of intest, part unsp, w/o perf or abscess w/o bleed] Onset: 01-01-20 Chronic Esophageal disorders (16 sources) Gastroesophageal reflux disease; Translations: [Gastro-esophageal reflux disease without esophagitis] Onset: 07-09-19 24 07-09-2023 Chronic Essential hypertension (20 sources) Benign essential hypertension; Translations: [Essential (primary) hypertension] Onset: 12-27-19 17 10-01-2016 Chronic Fluid and electrolyte disorders (2 sources) Hypo-osmolality and hyponatremia; Translations: [Hypokalemia] Onset: 11-30-19 Episodic Genitourinary symptoms and ill-defined conditions (4 sources) Urinary incontinence; Translations: [Other specified urinary incontinence] Onset: 01-12-20 Chronic Genitourinary symptoms and ill-defined conditions (20 sources) Dysuria; Translations: [Scalding pain on urination ] Onset: 10-11-19 Resolved : 03-10-20 24 10-10-2017 Episodic Gout and other crystal arthropathies (20 sources) Primary gout; 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] Onset: 06-12-19 18 08-12-2019 Chronic Hyperplasia of prostate (20 sources) Benign prostatic hypertrophy with outflow obstruction; Translations: [Benign prostatic hyperplasia with lower urinary tract symptoms] Onset: 10-11-19 18 10-10-2017 Chronic Hypertension with complications and secondary hypertension (1 source) Hypertensive chronic kidney disease with stage 1 through stage 4 chronic kidney disease, or unspecified chronic kidney disease; Translations: [Hypertensive chronic kidney disease w stg 1-4/unsp chr kdny] Onset: 01-12-20 Chronic Inflammatory conditions of male genital organs (1 source) Balanitis; Translations: [Balanitis] Chronic Malaise and fatigue (20 sources) Fatigue; Translations: [Chronic fatigue, unspecified] Onset: 08-12-1908-12-2019 Chronic Mood disorders (20 sources) Recurrent major depressive episodes, mild ; Translations: [Depressive disorder] Onset: 03-05-2010-01-2016 Chronic Mood disorders (1 source) Mood disorders; Translations: [Depression, unspecified] Onset: 01-12-20 Mycoses (1 source) Candiduria; Translations: [Other urogenital candidiasis] Episodic Nutritional deficiencies (20 sources) Deficiency of macronutrients; Translations: [Unspecified protein-calorie malnutrition] Onset: 04-21-2005-23-2023 Chronic Osteoarthritis (20 sources) Primary gonarthrosis, bilateral; Translations: [Osteoarthritis of left knee joint] Onset: 11-14-19 17 12-26-2016 Chronic Osteoarthritis (7 sources) Osteoarthritis of left knee joint; Translations: [Primary osteoarthritis of left knee] Onset: 11-14-19 17 11-13-2016 Osteoporosis (1 source) Osteoporosis; Translations: [Localized osteoporosis [[place]]] 03-23-2024 Chronic Other aftercare (1 source) Postoperative visit; Translations: [Encounter for other specified surgical aftercare] 07-25-2023 Episodic Other circulatory disease (13 sources) Arteriovenous fistula; Translations: [Arteriovenous fistula, acquired] Onset: 10-20-19 24 10-20-2023 Chronic Other circulatory disease (2 sources) Arteriovenous fistula, acquired; Translations: [Arteriovenous fistula, acquired] Onset: 10-21-19 Chronic Other circulatory disease (6 sources) Orthostatic hypotension; Translations: [Orthostatic hypotension] Onset: 05-30-20 23 05-30-2023 Episodic Other connective tissue disease (19 sources) History of hemiarthroplasty of left hip; Translations: [Presence of left artificial hip joint] Onset: 11-20-19 24 04-22-2023 Chronic Other connective tissue disease (4 sources) Presence of left artificial hip joint; Translations: [Presence of left artificial hip joint] Onset: 11-20-19 Chronic Other connective tissue disease (1 source) H/O: gout; Translations: [Personal history of other diseases of the musculoskeletal system and connective tissue] Episodic Other diseases of bladder and urethra (20 sources) Mass of urinary bladder; Translations: [Other specified disorders of bladder] Onset: 10-13-19 Chronic Other diseases of bladder and urethra (1 source) Spasm of bladder; Translations: [Other specified disorders of bladder] Chronic Other diseases of bladder and urethra (2 sources) Mass of urinary bladder; Translations: [Bladder mass] Episodic Other diseases of bladder and urethra (5 sources) Male urethral stricture; Translations: [Unspecified urethral stricture, male, unspecified site] Episodic Other diseases of kidney and ureters (20 sources) Hyperparathyroidism due to renal insufficiency; Translations: [Secondary hyperparathyroidism of renal origin] Onset: 04-14-20 23 05-23-2023 Chronic Other diseases of kidney and ureters (2 sources) Secondary hyperparathyroidism of renal origin; Translations: [Secondary hyperparathyroidism of renal origin (Multi)] Onset: 05-23-20 Chronic Other diseases of kidney and ureters (20 sources) Hydronephrosis; Translations: [Unspecified hydronephrosis] Onset: 09-16-19 21 09-15-2020 Episodic Other diseases of kidney and ureters (20 sources) Stricture of ureter; Translations: [Crossing vessel and stricture of ureter without hydronephrosis] Onset: 10-13-1910-12-2020 Episodic Other diseases of kidney and ureters (10 sources) Unspecified hydronephrosis; Translations: [Unspecified hydronephrosis] Onset: 09-16-19 Episodic Other diseases of kidney and ureters (1 source) Hydronephrosis with renal and ureteral calculous obstruction; Translations: [Hydronephrosis with renal and ureteral calculous obstruction] Onset: 01-01-20 Episodic Other diseases of kidney and ureters (1 source) Hydronephrosis co-occurrent and due to calculus of kidney and ureter; Translations: [Hydronephrosis with renal and ureteral calculous obstruction] 01-27-2023 Episodic Other diseases of kidney and ureters (1 source) Renal impairment; Translations: [Disorder of kidney and ureter, unspecified] 05-30-2023 Episodic Other diseases of kidney and ureters (2 sources) Hydroureteronephrosis ; Translations: [Unspecified hydronephrosis] 05-12-2024 Episodic Other diseases of kidney and ureters (3 sources) Bilateral hydronephrosis ; Translations: [Unspecified hydronephrosis] 10-30-2024 Episodic Other diseases of kidney and ureters (2 sources) Crossing vessel and stricture of ureter without hydronephrosis; Translations: [Crossing vessel and stricture of ureter without hydronephrosis] Onset: 10-22-19 Episodic Other gastrointestinal disorders (7 sources) Diarrhea; Translations: [Diarrhea, unspecified] 07-09-2024 Episodic Other inflammatory condition of skin (1 source) Other specified erythematous conditions; Translations: [Other specified erythematous conditions] Onset: 01-12-20 Episodic Other injuries and conditions due to external causes (1 source) Underdosing of thyroid hormones and substitutes, initial encounter; Translations: [Underdosing of thyroid hormones and substitutes, init encntr] Onset: 11-30-19 Episodic Other injuries and conditions due to external causes (1 source) Underdosing of aspirin, initial encounter; Translations: [Underdosing of aspirin, initial encounter] Onset: 11-30-19 Episodic Other injuries and conditions due to external causes (1 source) Underdosing of calcium-channel blockers, initial encounter; Translations: [Underdosing of calcium-channel blockers, initial encounter] Onset: 11-30-19 Episodic Other injuries and conditions due to external causes (1 source) Underdosing of alpha-adrenoreceptor antagonists, initial encounter; Translations: [Underdosing of alpha-adrenoreceptor antagonists, init encntr] Onset: 11-30-19 Episodic Other injuries and conditions due to external causes (1 source) Underdosing of cieiifvxiqo-csspeobvdy-ae zyme inhibitors, initial encounter; Translations: [Underdosing of gqhnithqf-yueobiq-yubzlx inhibitors, init] Onset: 11-30-19 Episodic Other injuries and conditions due to external causes (1 source) Underdosing of other parasympatholytics [anticholinergics and antimuscarinics] and spasmolytics, initial encounter; Translations: [Underdosing of oth parasympatholytics and spasmolytics, init] Onset: 11-30-19 Episodic Other liver diseases (1 source) Fatty (change of) liver, not elsewhere classified; Translations: [Fatty (change of) liver, not elsewhere classified] Onset: 01-01-20 Chronic Other lower respiratory disease (1 source) Difficulty breathing 11-20-2022 Episodic Comment on above: DIFFICULTY BREATHING Other lower respiratory disease (1 source) Dyspnea at rest; Translations: [Shortness of breath] Onset: 11-22-1911-21-2022 Episodic Other lower respiratory disease (20 sources) Dyspnea; Translations: [Other respiratory abnormalities] 01-09-2023 Episodic Comment on above: SOB SOB. Other lower respiratory disease (1 source) Personal history of pneumonia (recurrent); Translations: [Personal history of pneumonia (recurrent)] Onset: 01-12-20 Episodic Other lower respiratory disease (7 sources) Cough; Translations: [Cough] 06-14-2024 Episodic Other lower respiratory disease (8 sources) Hypoxia; Translations: [Hypoxemia] 07-24-2024 Episodic Other nervous system disorders (1 source) Tremor, unspecified; Translations: [Tremor, unspecified] Onset: 11-30-19 Episodic Other non-traumatic joint disorders (2 sources) Hip pain; Translations: [Pain in left hip] 04-22-2023 Episodic Other nutritional; endocrine; and metabolic disorders (20 sources) Metabolic syndrome X; Translations: [Metabolic syndrome] Onset: 11-14-19 17 11-13-2016 Chronic Other nutritional; endocrine; and metabolic disorders (17 sources) Morbid obesity; Translations: [Morbid (severe) obesity due to excess calories] Onset: 08-22-19 21 08-21-2020 Chronic Other nutritional; endocrine; and metabolic disorders (20 sources) Body mass index 40+ - severely obese; Translations: [Morbid (severe) obesity due to excess calories] Onset: 08-22-19 21 08-21-2020 Chronic Other nutritional; endocrine; and metabolic disorders (1 source) Obesity, unspecified; Translations: [Obesity, unspecified] Onset: 01-12-20 Chronic Other nutritional; endocrine; and metabolic disorders (1 source) Body mass index (BMI) 33.0-33.9, adult; Translations: [Body mass index [BMI] 33.0-33.9, adult] Onset: 01-12-20 Chronic Other nutritional; endocrine; and metabolic disorders (1 source) Other disorders of phosphorus metabolism; Translations: [Other disorders of phosphorus metabolism] Onset: 11-30-19 Chronic Other nutritional; endocrine; and metabolic disorders (2 sources) Body mass index 30+ - obesity; Translations: [Obesity, unspecified] 06-23-2023 Chronic Other nutritional; endocrine; and metabolic disorders (1 source) Obesity; Translations: [Obesity, unspecified] 08-13-2023 Chronic Other nutritional; endocrine; and metabolic disorders (2 sources) Morbid (severe) obesity due to excess calories; Translations: [Morbid (severe) obesity due to excess calories (Multi)] Onset: 04-02-20 Chronic Other nutritional; endocrine; and metabolic disorders (1 source) Metabolic syndrome; Translations: [Metabolic syndrome] Onset: 03-05-20 Chronic Other screening for suspected conditions (not mental disorders or infectious disease) (10 sources) Patient encounter status; Translations: [Encounter for screening for malignant neoplasm of prostate] Onset: 07-27-19 Episodic Pathological fracture (1 source) Fracture of bone of hip region; Translations: [Age-related osteoporosis with current pathological fracture, unspecified femur, initial encounter for fracture] 04-01-2023 Episodic Pneumonia (except that caused by tuberculosis or sexually transmitted disease) (3 sources) Pneumonia; Translations: [Pneumonia, organism unspecified] Onset: 01-12-2011-20-2022 Episodic Pneumonia (except that caused by tuberculosis or sexually transmitted disease) (1 source) Pneumonia (except that caused by tuberculosis or sexually transmitted disease) 11-20-2022 Residual codes; unclassified (20 sources) Obstructive sleep apnea syndrome; Translations: [Obstructive sleep apnea (adult) (pediatric)] Onset: 06-24-19 Chronic Residual codes; unclassified (5 sources) Obstructive sleep apnea (adult) (pediatric); Translations: [Obstructive sleep apnea (adult) (pediatric)] Onset: 01-12-20 Chronic Residual codes; unclassified (1 source) Personal history of irradiation; Translations: [Personal history of irradiation] Onset: 01-12-20 Episodic Residual codes; unclassified (1 source) Acquired absence of other genital organ(s); Translations: [Acquired absence of other genital organ(s)] Onset: 01-12-20 Episodic Residual codes; unclassified (1 source) Procedure and treatment not carried out, unspecified reason; Translations: [Procedure and treatment not carried out, unspecified reason] Onset: 11-30-19 Episodic Residual codes; unclassified (20 sources) Pain; Translations: [Pain, unspecified] Onset: 04-14-2005-23-2023 Episodic Residual codes; unclassified (5 sources) Urinary catheter in situ; Translations: [Presence of other specified devices] 08-13-2024 Episodic Respiratory failure; insufficiency; arrest (adult) (3 sources) Respiratory failure; insufficiency; arrest (adult) 11-20-2022 Comment on above: ACUTE KIDNEY FAILURE Screening and history of mental health and substance abuse codes (1 source) Personal history of nicotine dependence; Translations: [Personal history of nicotine dependence] Onset: 01-12-20 Episodic Septicemia (except in labor) (4 sources) Sepsis, unspecified organism; Translations: [Severe sepsis without septic shock] Onset: 11-21-19 Episodic Thyroid disorders (20 sources) Hypothyroidism; Translations: [Hypothyroidism, unspecified] Onset: 07-09-1910-01-2016 Chronic Unclassified (1 source) Influenza vaccination given; Translations: [Influenza vaccine administered] Unclassified (2 sources) Primary hypertension 11-20-2022 Unclassified (1 source) LASIX RENAL SCAN/ PATH RESULTS 11-25-2022 Comment on above: LASIX RENAL SCAN/ PA TH RESULTS Unclassified (1 source) CHLOE (acute kidney injury) 11-20-2022 Unclassified (1 source) Shortness of breath at rest 11-21-2022 Unclassified (1 source) CAD (coronary artery disease) 01-09-2023 Unclassified (1 source) Acidosis, unspecified; Translations: [Acidosis, unspecified] Onset: 01-12-20 Unclassified (1 source) Contact with and (suspected) exposure to COVID-19; Translations: [Contact with and (suspected) exposure to COVID-19] Onset: 01-12-20 Unclassified (1 source) Pt noncompl with other med trtmt and regimen d/t unsp reason; Translations: [Pt noncompl with other med trtmt and regimen d/t unsp reason] Onset: 11-30-19 Unclassified (2 sources) History of hemiarthroplasty of left hip 04-01-2024 Unclassified (3 sources) office is closed today. Please call to schedule follow up appointment. Unclassified (3 sources) Urology - after the weekend; call for follow up Unclassified (1 source) Call for appointment date/time Unclassified (1 source) Cough, unspecified; Translations: [Cough, unspecified] Onset: 06-07-19 Past or Other Problems Problem Classification Problem Date Documented Da te Episodic/Chronic Abdominal pain (3 sources) Epigastric pain; Translations: [Epigastric pain] Onset: 02-09-2024 Episodic Acute and unspecified renal failure (20 sources) Acute renal failure syndrome; Translations: [Injury of kidney] Onset: 11-29-2022 11-20-2022 Episodic Acute bronchitis (9 sources) Acute bronchiolitis due to respiratory syncytial virus; Translations: [Acute bronchiolitis due to respiratory syncytial virus] Onset: 06-07-2024 06-14-2024 Episodic Allergic reactions (20 sources) Exogenous dermatitis; Translations: [Unspecified contact dermatitis due to other agents] Onset: 04-14-2023 Episodic Calculus of urinary tract (20 sources) Kidney stone; Translations: [Calculus of kidney] Onset: 12-26-2022 Resolved: 03-10-2024 12-26-2022 Episodic Deficiency and other anemia (3 sources) Anemia, unspecified; Translations: [Anemia, unspecified] Onset: 11-29-2022 Episodic Deficiency and other anemia (20 sources) Iron deficiency anemia; Translations: [Iron deficiency anemia, unspecified] Onset: 01-27-2023 01-27-2023 Episodic Deficiency and other anemia (16 sources) Anemia; Translations: [Anemia, unspecified] Onset: 07-09-2023 07-09-2023 Episodic Fracture of neck of femur (hip) (20 sources) Closed fracture of hip; Translations: [Fracture of unspecified part of neck of left femur, initial encounter for closed fracture] Onset: 03-31-2023 03-31-2023 Episodic Immunizations and screening for infectious disease (7 sources) Needs influenza immunization; Translations: [Encounter for immunization] Onset: 03-23-2024 03-23-2024 Episodic Influenza (10 sources) Influenza due to Influenza A virus; Translations: [Influenza due to other identified influenza virus with other respiratory manifestations] Onset: 07-19-2024 07-24-2024 Episodic Malaise and fatigue (20 sources) Fatigue; Translations: [Physical deconditioning] Onset: 08-12-2019 08-12-2019 Episodic Neoplasms of unspecified nature or uncertain behavior (20 sources) Neoplasm of bladder; 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] Onset: 09-15-2020 09-15-2020 Episodic Noninfectious gastroenteritis (8 sources) Enterocolitis; Translations: [Noninfective gastroenteritis and colitis, unspecified] Onset: 07-01-2024 07-09-2024 Episodic Nonspecific chest pain (6 sources) Chest pain; Translations: [Chest pain, unspecified] Onset: 07-10-2023 07-10-2023 Episodic Other aftercare (2 sources) Encounter for other specified surgical aftercare; Translations: [Encounter for other specified surgical aftercare] Onset: 07-25-2023 Episodic Other and unspecified benign neoplasm (20 sources) Melanocytic nevus of skin ; Translations: [Melanocytic nevi, unspecified] Onset: 02-04-2017 02-04-2017 Episodic Other circulatory disease (1 source) Orthostatic hypotension; Translations: [Orthostatic hypotension] Onset: 05-30-2023 Episodic Other diseases of bladder and urethra (20 sources) Urethral stricture; Translations: [Unspecified urethral stricture, male, unspecified site] Onset: 09-15-2020 09-15-2020 Episodic Other diseases of kidney and ureters (3 sources) Disorder of kidney and ureter, unspecified; Translations: [Disorder of kidney and ureter, unspecified] Onset: 12-23-2022 Episodic Other diseases of kidney and ureters (2 sources) Other hydronephrosis; Translations: [Other hydronephrosis] Onset: 05-06-2023 Episodic Other gastrointestinal disorders (2 sources) Diarrhea, unspecified; Translations: [Diarrhea, unspecified] Onset: 07-01-2024 Episodic Other lower respiratory disease (20 sources) Dyspnea on exertion; Translations: [Shortness of breath] Onset: 12-26-2022 Episodic Other lower respiratory disease (1 source) Hypoxemia; Translations: [Hypoxemia] Onset: 07-19-2024 Episodic Other lower respiratory disease (1 source) Shortness of breath; Translations: [Shortness of breath] Onset: 07-19-2024 Episodic Other non-traumatic joint disorders (19 sources) Knee pain; Translations: [Pain in left knee] Onset: 08-12-2019 08-12-2019 Episodic Other non-traumatic joint disorders (13 sources) Pain in left knee; Translations: [Pain in joint, lower leg] Onset: 08-12-2019 08-12-2019 Episodic Other non-traumatic joint disorders (2 sources) Pain in left hip; Translations: [Pain in left hip] Onset: 04-22-2023 Episodic Other non-traumatic joint disorders (7 sources) Enthesopathy of hip region; Translations: [Other specified joint disorders, left hip] Onset: 03-23-2024 03-23-2024 Episodic Other non-traumatic joint disorders (6 sources) Pain of left hip joint; Translations: [Pain in left hip] Onset: 04-27-2024 04-27-2024 Episodic Residual codes; unclassified (20 sources) Impaired exercise tolerance; Translations: [Other general symptoms and signs] Onset: 08-21-2020 08-21-2020 Episodic Residual codes; unclassified (1 source) Pain, unspecified; Translations: [Pain, unspecified] Onset: 05-23-2023 Episodic Syncope (6 sources) Syncope and collapse; Translations: [Syncope] Onset: 01-11-2023 08-16-2024 Episodic Unclassified (20 sources) Onset: 03-05-2023 Resolved: 04-27-2024 03-05-2023 Urinary tract infections (20 sources) Urinary tract infectious disease; Translations: [Urinary tract infection, site not specified] Onset: 08-12-2019 Resolved: 03-10-2024 08-12-2019 Episodic Results Test Name Value Interpretation Reference Range Facility Emergency Department Summary on 12-13-2024 Emergency Department Summary Normal [facility] Urine Cultureon 12-04-2024 [facility] Normal [facility] Comment on above: Performed By: #### M 100.2200, L400.0001 ####[facility] [address] [place], [address] Abdomen/Pelvis without Conto n 12-01-2024 Abdomen/Pelvis without Cont Normal [facility] Absolute lymphocyte countOrd ered By: Quinn Waddell on 12-01-2024 Lymphocytes Auto (Unsp spec) [#/Vol] 0.88 10*3/uL 0.83-4.51 [facility] Absolute neutrophil countOrd ered By: Quinn Waddell on 12-01-2024 Neutrophils (Bld) [#/Vol] 7.5 10*3/uL 2.0-7.7 [facility] Anion gap in Serum or Plasma Ordered By: Quinn Waddell on 12-01-2024 Anion gap [Moles/Vol] 14 mmol/L 5-15 [facility] Automated lymphocyte count a s percentage of total leukocytesOrdered By: Quinn Waddell on 12-01-2024 Lymphocytes/100 WBC Auto (Unsp spec) 9.4 % Low 19-41 [facility] BUN/creatinine ratioOrdered By: Quinn Waddell on 12-01-2024 Urea nitrogen/Creatinine [Mass ratio] 9.3 mg/mg Low 10-20 [facility] Basic Metabolic Profile (BMP )on 12-01-2024 BUN/CRE 9.3 RATIO Low 10-20 [facility] Comment on above: Performed By: #### L 500.2500, L503.6005, L100.0100 ####[facility] [address] [place], [address] Calcium [Mass/Vol] 9.3 mg/dL Normal 7.6-11.0 [facility] Comment on above: Performed By: #### L 500.2500, L503.6005, L100.0100 ####[facility] [address] [place], [address] Chloride [Moles/Vol] 97 mmol/L Low 98-108 [facility] Comment on above: Performed By: #### L 500.2500, L503.6005, L100.0100 ####[facility] [address] [place], [address] CO2 [Moles/Vol] 26.8 mmol/L Normal 21.0-32.0 [facility] Comment on above: Performed By: #### L 500.2500, L503.6005, L100.0100 ####[facility] [address] [place], [address] Creatinine [Mass/Vol] 4.56 mg/dL High 0.70-1.20 [facility] Comment on above: Performed By: #### L 500.2500, L503.6005, L100.0100 ####[facility] [address] [place], [address] ECRCL 16.77 ml/min Low 50-250 [facility] Comment on above: Performed By: #### L 500.2500, L503.6005, L100.0100 ####[facility] [address] [place], [address] GAP 14 Normal 5-15 [facility] Comment on above: Performed By: #### L 500.2500, L503.6005, L100.0100 ####[facility] [address] [place], [address] GFR/1.73 sq M.predicted among non-blacks MDRD (S/P/Bld) [Vol rate/Area] 12 mL/min/{1.73_m2} Low >60 [facility] Comment on above: Result Comment: mL/m in/1.73m2 CKD-EPI Creatinine Equation (2020) Performed By: #### L 500.2500, L503.6005, L100.0100 ####[facility] [address] [place], [address] Glucose [Mass/Vol] 124 mg/dL High 70-99 [facility] Comment on above: Performed By: #### L 500.2500, L503.6005, L100.0100 ####[facility] [address] [place], [address] Potassium [Moles/Vol] 4.7 mmol/L Normal 3.3-5.1 [facility] Comment on above: Performed By: #### L 500.2500, L503.6005, L100.0100 ####[facility] [address] [place], [address] Sodium [Moles/Vol] 138 mmol/L Normal 133-145 [facility] Comment on above: Performed By: #### L 500.2500, L503.6005, L100.0100 ####[facility] [address] [place], [address] Urea nitrogen [Mass/Vol] 43 mg/dL High 4-19 [facility] Comment on above: Performed By: #### L 500.2500, L503.6005, L100.0100 ####[facility] [address] [place], [address] Basophil percentageOrdered B y: Quinn Waddell on 12-01-2024 Basophils/100 WBC (Bld) 0.4 % 0-1 [facility] Bilirubin Test strip Ql (U)O rdered By: Quinn Waddell on 12-01-2024 Bilirubin Ql (U) Negative Negative [facility] CBC W/Diff, Automatedon 07-0 Absolute Lymph 0.88 X10 3/uL Normal 0.83-4.51 [facility] Comment on above: Performed By: #### L 500.2500, L503.6005, L100.0100 ####[facility] [address] [place], [address] Absolute Neut 7.5 X10 3/uL Normal 2.0-7.7 [facility] Comment on above: Performed By: #### L 500.2500, L503.6005, L100.0100 ####[facility] [address] [place], [address] Basophils/100 WBC (Bld) 0.4 % Normal 0-1 [facility] Comment on above: Performed By: #### L 500.2500, L503.6005, L100.0100 ####[facility] [address] [place], [address] Eosinophils/100 WBC (Bld) 1.0 % Normal 0-5 [facility] Comment on above: Performed By: #### L 500.2500, L503.6005, L100.0100 ####[facility] [address] [place], [address] Erythrocyte distribution width (RBC) [Ratio] 16.9 % High 11.6-14.6 [facility] Comment on above: Performed By: #### L 500.2500, L503.6005, L100.0100 ####[facility] [address] [place], [address] Hematocrit (Bld) [Volume fraction] 36.7 % Low 40-54 [facility] Comment on above: Performed By: #### L 500.2500, L503.6005, L100.0100 ####[facility] [address] [place], [address] Hemoglobin (Bld) [Mass/Vol] 11.6 g/dL Low 13.0-16.5 [facility] Comment on above: Performed By: #### L 500.2500, L503.6005, L100.0100 ####[facility] [address] [place], [address] IG% 0.300 Normal 0.0-0.9 [facility] Comment on above: Result Comment: IG% - Immature Granulocytes (promyelocytes, myelocytes andmetamyelocytes) > 1% indicates that a LEFT SHIFT is Present. Performed By: #### L 500.2500, L503.6005, L100.0100 ####[facility] [address] [place], [address] Lymphocytes/100 WBC (Bld) 9.4 % Low 19-41 [facility] Comment on above: Performed By: #### L 500.2500, L503.6005, L100.0100 ####[facility] [address] [place], [address] MCH (RBC) [Entitic mass] 30.0 pg Normal 27.0-32.0 [facility] Comment on above: Performed By: #### L 500.2500, L503.6005, L100.0100 ####[facility] [address] [place], [address] MCHC (RBC) [Mass/Vol] 31.6 g/dL Low 32-36 [facility] Comment on above: Performed By: #### L 500.2500, L503.6005, L100.0100 ####[facility] [address] [place], [address] MCV (RBC) [Entitic vol] 94.8 fL High 80-94 [facility] Comment on above: Performed By: #### L 500.2500, L503.6005, L100.0100 ####[facility] [address] [place], [address] Monocytes/100 WBC (Bld) 9.1 % Normal 0-10 [facility] Comment on above: Performed By: #### L 500.2500, L503.6005, L100.0100 ####[facility] [address] [place], [address] Neutrophils/100 WBC (Bld) 79.8 % High 47-70 [facility] Comment on above: Performed By: #### L 500.2500, L503.6005, L100.0100 ####[facility] [address] [place], [address] Nucleated RBC (Bld) [#/Vol] 0 10*3/uL Normal 0-5 [facility] Comment on above: Performed By: #### L 500.2500, L503.6005, L100.0100 ####[facility] [address] [place], [address] Platelet mean volume (Bld) [Entitic vol] 10.6 fL Normal 6.2-12.0 [facility] Comment on above: Performed By: #### L 500.2500, L503.6005, L100.0100 ####[facility] [address] [place], [address] Platelets (Bld) [#/Vol] 172 10*3/uL Normal 150-450 [facility] Comment on above: Performed By: #### L 500.2500, L503.6005, L100.0100 ####[facility] [address] [place], [address] RBC (Bld) [#/Vol] 3.87 10*6/uL Low 4.6-6.2 [facility] Comment on above: Performed By: #### L 500.2500, L503.6005, L100.0100 ####[facility] [address] [place], [address] RDW SD 57.6 fl High 35.1-43.9 [facility] Comment on above: Performed By: #### L 500.2500, L503.6005, L100.0100 ####[facility] [address] [place], [address] WBC (Bld) [#/Vol] 9.4 10*3/uL Normal 4.4-11.0 [facility] Comment on above: Performed By: #### L 500.2500, L503.6005, L100.0100 ####[facility] [address] [place], [address] Carbon dioxide, total [Moles /volume] in Central venous bloodOrdered By: Quinn Waddell on 12-01-2024 CO2 [Moles/Vol] 26.8 mmol/L 21.0-32.0 [facility] Chloride assayOrdered By: Cristiano Waddell on 12-01-2024 Chloride [Moles/Vol] 97 mmol/L Low 98-108 [facility] Emergency Department Summary on 12-01-2024 Emergency Department Summary Normal [facility] Eosinophil percentageOrdered By: Quinn Waddell on 12-01-2024 Eosinophils/100 WBC (Bld) 1.0 % 0-5 [facility] Erythrocyte distribution wid th ratioOrdered By: Quinn Waddell on 12-01-2024 Erythrocyte distribution width (RBC) [Ratio] 16.9 % High 11.6-14.6 [facility] Erythrocyte distribution wid th standard deviationOrdered By: Quinn Waddell on 12-01-2024 Erythrocyte distribution width (RBC) [Ratio] 57.6 fl High 35.1-43.9 [facility] Glomerular filtration rate ( GFR) estimation/1.73 sq m using serum, plasma, or whole bOrdered By: Quinn Waddell on 12-01-2024 GFR/1.73 sq M.predicted among non-blacks MDRD (S/P/Bld) [Vol rate/Area] 12 mL/min/{1.73_m2} Low >60 [facility] Comment on above: mL/min/1.73m2 CKD-EP I Creatinine Equation (2020) Hematocrit Auto (Bld) [Volum e fraction]Ordered By: Quinn Waddell on 12-01-2024 Hematocrit (Bld) [Volume fraction] 36.7 % Low 40-54 [facility] Hemoglobin measurementOrdere d By: Quinn Waddell on 12-01-2024 Hemoglobin (Bld) [Mass/Vol] 11.6 g/dL Low 13.0-16.5 [facility] Immature granulocytes/100 WB C Auto (Bld)Ordered By: Quinn Waddell on 12-01-2024 Immature granulocytes/100 WBC (Bld) 0.300 % 0.0-0.9 [facility] Comment on above: IG% - Immature Granu locytes (promyelocytes, myelocytes and metamyelocytes) > 1% indicates that a LEFT SHIFT is Present. Ketones Test strip Ql (U)Ord ered By: Quinn Waddell on 12-01-2024 Ketones Ql (U) Negative Negative [facility] Lactic Acidon 12-01-2024 Lactate [Moles/Vol] 2.5 mmol/L Invalid Interpretation Code 0.0-2.0 [facility] Comment on above: Order Comment: Y Result Comment: Crit ical Result(s) Called at: 12/01/2024-12:32 by: Annie to Malia Baker.??Results read back by same. Performed By: #### L 500.2500, L503.6005, L100.0100 ####[facility] [address] [place], [address] Lactic acid measurementOrder ed By: Quinn Waddell on 12-01-2024 Lactate [Moles/Vol] 2.5 mmol/L High 0.0-2.0 [facility] Comment on above: Critical Result(s) C alled at: 12/01/2024-12:32 by: Lv Holland to Malia Baker. Results read back by same. MCV (mean corpuscular volume ) determinationOrdered By: Quinn Waddell on 12-01-2024 MCV (RBC) [Entitic vol] 94.8 fL High 80-94 [facility] Mean corpuscular hemoglobin (MCH) determinationOrdered By: Quinn Waddell on 12-01-2024 MCH (RBC) [Entitic mass] 30.0 pg 27.0-32.0 [facility] Mean corpuscular hemoglobin concentration (MCHC) determinationOrdered By: Quinn Waddell on 12-01-2024 MCHC (RBC) [Mass/Vol] 31.6 g/dL Low 32-36 [facility] Mean platelet volume determi nationOrdered By: Quinn Waddell on 12-01-2024 Platelet mean volume (Bld) [Entitic vol] 10.6 fL 6.2-12.0 [facility] Microscopic analysis of urin e for red blood cells (RBC)Ordered By: Quinn Waddell on 12-01-2024 Microscopic analysis of urine for red blood cells (RBC) > 100 SEEN /hpf 0-5 [facility] Comment on above: Microscopic field is filled. Other elements may be obscured. Monocyte percentageOrdered B y: Quinn Waddell on 12-01-2024 Monocytes/100 WBC (Bld) 9.1 % 0-10 [facility] Mucus LM Ql (Urine sed)Order ed By: Quinn Waddell on 12-01-2024 Mucus Ql (Urine sed) 0 SEEN /hpf [facility] Neutrophil percentageOrdered By: Quinn Waddell on 12-01-2024 Neutrophils/100 WBC (Bld) 79.8 % High 47-70 [facility] Nitrite Test strip Ql (U)Ord ered By: Quinn Waddell on 12-01-2024 Nitrite Ql (U) Negative Negative [facility] Nucleated red blood cell per centageOrdered By: Quinn Waddell on 12-01-2024 Nucleated RBC/100 WBC (Bld) [Ratio] 0 % 0-5 [facility] Platelet countOrdered By: Cristiano Waddell on 12-01-2024 Platelets (Bld) [#/Vol] 172 10*3/uL 150-450 [facility] Potassium measurement (mass/ volume)Ordered By: Quinn Waddell on 12-01-2024 Potassium (Unsp spec) [Mass/Vol] 4.7 mmol/L 3.3-5.1 [facility] Protein Test strip Ql (U)Ord ered By: Quinn Waddell on 12-01-2024 Protein Ql (U) 500 mg/dl High Negative [facility] RBC Auto (Bld) [#/Vol]Ordere d By: Quinn Waddell on 12-01-2024 RBC (Bld) [#/Vol] 3.87 10*6/uL Low 4.6-6.2 [facility] Serum creatinine measurement (mass/volume)Ordered By: Quinn Waddell on 12-01-2024 Creatinine [Mass/Vol] 4.56 mg/dL High 0.70-1.20 [facility] Serum glucose measurement (m ass/volume)Ordered By: Quinn Waddell on 12-01-2024 Glucose [Mass/Vol] 124 mg/dL High 70-99 [facility] Serum or plasma calcium cris urement (mass/volume)Ordered By: Quinn Waddell on 12-01-2024 Calcium [Mass/Vol] 9.3 mg/dL 7.6-11.0 [facility] Serum or plasma urea nitroge n measurement (mass/volume)Ordered By: Quinn Waddell on 12-01-2024 Urea nitrogen [Mass/Vol] 43 mg/dL High 4-19 [facility] Sodium levelOrdered By: Quinn Waddell on 12-01-2024 Sodium [Moles/Vol] 138 mmol/L 133-145 [facility] Squamous epithelial cells de tection in urine sediment by light microscopyOrdered By: Quinn Waddell on 12-01-2024 Epithelial cells.squamous LM Ql (Urine sed) 0 SEEN /hpf 0-5 [facility] Urinalysis, Completeon 12-01 RBC > 100 SEEN Normal 0-5 [facility] Comment on above: Order Comment: COLOR OF URINE MAY AFFECT DIPSTICK RESULTS.CATHETER SPECIMEN Result Comment: Micr oscopic field is filled. Other elements may beobscured. Performed By: #### M 100.2200, L400.0001 ####[facility] [address] [place], [address] WBC >100 SEEN Normal 0-5 [facility] Comment on above: Order Comment: COLOR OF URINE MAY AFFECT DIPSTICK RESULTS.CATHETER SPECIMEN Result Comment: Micr oscopic field is filled. Other elements may beobscured. Performed By: #### M 100.2200, L400.0001 ####[facility] [address] [place], [address] BACTERIA 0 SEEN Normal None Seen [facility] Comment on above: Order Comment: COLOR OF URINE MAY AFFECT DIPSTICK RESULTS.CATHETER SPECIMEN Performed By: #### M 100.2200, L400.0001 ####[facility] [address] [place], [address] EPI,SQUAMOUS 0 SEEN Normal 0-5 [facility] Comment on above: Order Comment: COLOR OF URINE MAY AFFECT DIPSTICK RESULTS.CATHETER SPECIMEN Performed By: #### M 100.2200, L400.0001 ####[facility] [address] [place], [address] Mucus Ql (Urine sed) 0 SEEN Normal [facility] Comment on above: Order Comment: COLOR OF URINE MAY AFFECT DIPSTICK RESULTS.CATHETER SPECIMEN Performed By: #### M 100.2200, L400.0001 ####[facility] [address] [place], [address] Urine clarityOrdered By: Shaq Waddell on 12-01-2024 Clarity (U) Turbid Clear [facility] Urine color determinationOrd ered By: Quinn Waddell on 12-01-2024 Color (U) Nava Yellow [facility] Urine cultureOrdered By: Shaq Waddell on 12-01-2024 Bacteria identified Cx Nom (U) ESBL Escherichia coli Abnormal [facility] Bacteria identified Cx Nom (U) Corynebacterium striatum Abnormal [facility] Bacteria identified Cx Nom (U) Pseudomonas aeruginosa Abnormal [facility] Urine glucose detectionOrder ed By: Quinn Waddell on 12-01-2024 Glucose Ql (U) Normal mg/dl Normal [facility] Urine leukocyte esterase det ection by dipstickOrdered By: Quinn Waddell on 12-01-2024 Leukocyte esterase Test strip Ql (U) 500 /ul High Negative [facility] Urine pHOrdered By: Quinn meraz on 12-01-2024 pH (U) 7.0 [pH] 5.0 - 8.0 [facility] Urine sediment bacteria coun t by microscopy (number/high power field)Ordered By: Quinn Waddell on 12-01-2024 Bacteria LM.HPF (Urine sed) [#/Area] 0 /[HPF] None Seen [facility] Urine specific gravity measu rementOrdered By: Quinn Waddell on 12-01-2024 Specific gravity (U) [Rel density] 1.010 1.002-1.030 [facility] Urine urobilinogen measureme ntOrdered By: Quinn Waddell on 12-01-2024 Urobilinogen Ql (U) Normal mg/dl Normal [facility] White blood cell (WBC) count Ordered By: Quinn Waddell on 12-01-2024 WBC (Bld) [#/Vol] 9.4 10*3/uL 4.4-11.0 [facility] White blood cell countOrdere d By: Quinn Waddell on 12-01-2024 White blood cell count >100 SEEN /hpf 0-5 [facility] Comment on above: Microscopic field is filled. Other elements may be obscured. Urine Cultureon 11-13-2024 URC Normal [facility] Comment on above: Performed By: #### M 100.2200 ####[facility] [address] [place], [place], [id number] Bilirubin Test strip Ql (U)O rdered By: Ren Uriarte on 11-09-2024 Bilirubin Ql (U) Negative Negative [facility] Emergency Department Summary on 11-09-2024 Emergency Department Summary Normal [facility] Ketones Test strip Ql (U)Ord ered By: Ren Uriarte on 11-09-2024 Ketones Ql (U) Negative Negative [facility] Microscopic analysis of urin e for red blood cells (RBC)Ordered By: Ren Uriarte on 11-09-2024 Microscopic analysis of urine for red blood cells (RBC) 25-50 SEEN /hpf 0-5 [facility] Mucus LM Ql (Urine sed)Order ed By: Ren Uriarte on 11-09-2024 Mucus Ql (Urine sed) 0 SEEN /hpf [facility] Nitrite Test strip Ql (U)Ord ered By: Ren Uriarte on 11-09-2024 Nitrite Ql (U) Negative Negative [facility] Protein Test strip Ql (U)Ord ered By: Ren Uriarte on 11-09-2024 Protein Ql (U) 100 mg/dl High Negative [facility] Squamous epithelial cells de tection in urine sediment by light microscopyOrdered By: Ren Uriarte on 11-09-2024 Epithelial cells.squamous LM Ql (Urine sed) 0 SEEN /hpf 0-5 [facility] Urinalysis, Completeon 11-09 BACTERIA 1+ /hpf Normal None Seen [facility] Comment on above: Order Comment: COLLE CTOR TO SPECIFY Performed By: #### L 400.0001 ####[facility] [address] [place], [address] RBC 25-50 SEEN Normal [address] Comment on above: Order Comment: ALEX CTOR TO SPECIFY Performed By: #### L 400.0001 ####[facility] [address] [place], [address] WBC >100 SEEN Normal 0-5 [facility] Comment on above: Order Comment: ALEX CTOR TO SPECIFY Performed By: #### L 400.0001 ####[facility] [address] [place], [address] EPI,SQUAMOUS 0 SEEN Normal [address] [place] [address] Comment on above: Order Comment: ALEX CTOR TO SPECIFY Performed By: #### L 400.0001 ####[facility] [address] [place], [address] Mucus Ql (Urine sed) 0 SEEN Normal [facility] Comment on above: Order Comment: ALEX CTOR TO SPECIFY Performed By: #### L 400.0001 ####[facility] [address] [place], [address] Urine clarityOrdered By: Akhil Uriarte on 11-09-2024 Clarity (U) Turbid Clear [facility] Urine color determinationOrd ered By: Ren Uriarte on 11-09-2024 Color (U) Straw Yellow [facility] Urine cultureOrdered By: Akhil Uriarte on 11-09-2024 Bacteria identified Cx Nom (U) ESBL Escherichia coli Abnormal [facility] Urine glucose detectionOrder ed By: Ren Uriarte on 11-09-2024 Glucose Ql (U) Normal mg/dl Normal [facility] Urine leukocyte esterase det ection by dipstickOrdered By: Ren Uriarte on 11-09-2024 Leukocyte esterase Test strip Ql (U) 500 /ul High Negative [facility] Urine pHOrdered By: Ren Uriarte on 11-09-2024 pH (U) 8.0 [pH] 5.0 - 8.0 [facility] Urine sediment bacteria coun t by microscopy (number/high power field)Ordered By: Ren Uriarte on 11-09-2024 Bacteria LM.HPF (Urine sed) [#/Area] 1 /[HPF] None Seen [facility] Urine specific gravity measu rementOrdered By: Ren Uriarte on 11-09-2024 Specific gravity (U) [Rel density] 1.010 1.002-1.030 [facility] Urine urobilinogen measureme ntOrdered By: Ren Uriarte on 11-09-2024 Urobilinogen Ql (U) Normal mg/dl Normal [facility] White blood cell countOrdere d By: Ren Uriarte on 11-09-2024 White blood cell count >100 SEEN /hpf 0-5 [facility] CBC WITH AUTO DIFFERENTIALon 11-02-2024 AUTO NRBC 0.0 % [facility] Comment on above: Performed By: #### L [id number] #### LAB [address] [place] [address] Carlo Sal M.D. [id number] AUTO NRBC ABS COUNT 0.00 K/mcL Normal 0.00-0.00 [facility] Comment on above: Performed By: #### L [id number] #### LAB [address] [address] Carlo Sal M.D. [id number] BASOPHILS ABSOLUTE COUNT 0.02 K/mcL Normal 0.00-0.[address] [facility] Comment on above: Performed By: #### L [id number] #### LAB [address] [address] Carlo Sal M.D. [id number] Basophils/100 WBC (Bld) 0.2 % Normal [facility] Comment on above: Performed By: #### L [id number] #### [facility] [address] [address] Carlo Sal M.D. [id number] Eosinophils (Bld) [#/Vol] 0.00 10*3/uL Normal 0.00-0.[address] [facility] Comment on above: Performed By: #### L [id number] #### LAB [address] [place], [place] [address] Carlo Sal M.D. [id number] Eosinophils/100 WBC (Bld) 0.0 % Normal [facility] Comment on above: Performed By: #### L [id number] #### [facility] [address] [address] Carlo Sal M.D. [id number] Erythrocyte distribution width (RBC) [Ratio] 14.9 % High 11.6-14.[address] [facility] Comment on above: Performed By: #### L [id number] #### LAB [address] [address] Carlo Sal M.D. [id number] Hematocrit (Bld) [Volume fraction] 42.7 % Normal 41.0-53.[address] [facility] Comment on above: Performed By: #### L [id number] #### [facility] [address] [address] Carlo Sal M.D. [id number] Hemoglobin (Bld) [Mass/Vol] 13.2 g/dL Low 13.5-17.[address] [facility] Comment on above: Performed By: #### L [id number] #### LAB [address] [address] Carlo Sal M.D. [id number] IG ABSOLUTE 0.06 K/mcL Normal 0.00-0.[address] [facility] Comment on above: Performed By: #### L [id number] #### LAB [address] [address] Carlo Sal M.D. [id number] IG PERCENT 0.70 % Normal [facility] Comment on above: Result Comment: The IG parameter is the percentage of metamyelocytes, myelocytes and promyelocytes. An immature granulocyte count (IG) of 1% or more suggests the possibility of infection, an IG count of 3% is very likely related to an infection. Performed By: #### L [id number] #### [facility] [address] [address] Carlo Sal M.D. [id number] Lymphocytes (Bld) [#/Vol] 0.63 10*3/uL Low 0.90-4.[address] [facility] Comment on above: Performed By: #### L [id number] #### [facility] [address] [address] Carlo Sal M.D. [id number] Lymphocytes/100 WBC (Bld) 7.3 % Normal [facility] Comment on above: Performed By: #### L [id number] #### LAB [address] [address] Carlo Sal M.D. [id number] MCH (RBC) [Entitic mass] 29.0 pg Normal 26.0-34.[address] [facility] Comment on above: Performed By: #### L [id number] #### LAB [address] [address] Carlo Sal M.D. [id number] MCV (RBC) [Entitic vol] 93.8 fL Normal 80.0-100.[address] [facility] Comment on above: Performed By: #### L [id number] #### LAB [address] [place] [address] Carlo Sal M.D. [id number] MEAN CORPUSCULAR HEMOGLOBIN CONC 30.9 g/dL Low 31.0-37.[address] [facility] Comment on above: Performed By: #### L [id number] #### LAB [address] [place] [address] Carlo Sal M.D. [id number] Monocytes (Bld) [#/Vol] 0.06 10*3/uL Low 0.30-0.[address] [facility] Comment on above: Performed By: #### L [id number] #### LAB [address] [place] [address] Carlo Sal M.D. [id number] Monocytes/100 WBC (Bld) 0.7 % [facility] Comment on above: Performed By: #### L [id number] #### LAB [address] [place] [address] Carlo Sal M.D. [id number] NEUTROPHILS ABSOLUTE COUNT 7.85 K/mcL High 1.70-7.[address] [facility] Comment on above: Performed By: #### L [id number] #### LAB [address] [address] Carlo Sal M.D. [id number] Neutrophils/100 WBC (Bld) 91.1 % Normal [facility] Comment on above: Performed By: #### L [id number] #### LAB [address] [address] Carlo Sal M.D. [id number] Platelet mean volume (Bld) [Entitic vol] 9.8 fL Normal 9.4-12.[address] [facility] Comment on above: Performed By: #### L [id number] #### LAB [address] [address] Carlo Sal M.D. [id number] Platelets (Bld) [#/Vol] 283 10*3/uL Normal 150-[address] [facility] Comment on above: Performed By: #### L [id number] #### LAB [address] [address] Carlo Sal M.D. [id number] RBC (Bld) [#/Vol] 4.55 10*6/uL Normal 4.50-5.90 [facility] Comment on above: Performed By: #### L [id number] #### [facility] [address] [address] Carlo Sal M.D. [id number] WBC (Bld) [#/Vol] 8.62 10*3/uL Normal 4.50-11.00 [facility] Comment on above: Performed By: #### L [id number] #### LAB [address] [address] Carlo Sal M.D. [id number] PT/INRon 11-02-2024 INR Coag (PPP) [Relative time] 1.1 {INR} Normal 0.8-1.[address] [facility] Comment on above: Order Comment: Durin g the induction phase of oral anticoagulation, the INR may not reflect the anticoagulation status of the patient. Therapeutic ranges for INR's are: Most clinical situations: INR 2.0-3.0 Mechanical Prosthetic Valve: INR 2.5-3.5 Critical: INR >5.0 Performed By: #### 4 [id number] #### LAB [address] [place], [place] [address] Carlo Sal M.D. [id number] PT Coag (PPP) [Time] 14.2 s Normal 11.8-14.3 [facility] Comment on above: Order Comment: Francois g the induction phase of oral anticoagulation, the INR may not reflect the anticoagulation status of the patient. Therapeutic ranges for INR's are: Most clinical situations: INR 2.0-3.0 Mechanical Prosthetic Valve: INR 2.5-3.5 Critical: INR >5.0 Performed By: #### 4 [id number] #### LAB [address] [place], [place] [address] Carlo Sal M.D. [id number] Urine Cultureon 10-28-2024 URC Normal [facility] Comment on above: Performed By: #### L 400.0001, M100.2200 ####[facility] [address] [place], [place], [address] Abdomen/Pelvis without Conto n 10-22-2024 Abdomen/Pelvis without Cont Normal [facility] Absolute lymphocyte countOrd ered By: Koffi Coffman on 10-22-2024 Lymphocytes Auto (Unsp spec) [#/Vol] 1.49 10*3/uL 0.83-4.51 [facility] Absolute neutrophil countOrd ered By: Koffi Coffman on 10-22-2024 Neutrophils (Bld) [#/Vol] 5.3 10*3/uL 2.0-7.7 [facility] Anion gap in Serum or Plasma Ordered By: Koffi Coffman on 10-22-2024 Anion gap [Moles/Vol] 14 mmol/L 5-15 [facility] Automated lymphocyte count a s percentage of total leukocytesOrdered By: Koffi Coffman on 05-23-2025 Lymphocytes/100 WBC Auto (Unsp spec) 19.4 % 19-41 [facility] BUN/creatinine ratioOrdered By: Koffi Coffman on 10-22-2024 Urea nitrogen/Creatinine [Mass ratio] 7.1 mg/mg Low 10-20 [facility] Basic Metabolic Profile (BMP )on 10-22-2024 BUN/CRE 7.1 RATIO Low 10-20 [facility] Comment on above: Performed By: #### L 100.0100, L500.2500 ####[facility] [address] [place], [address] Calcium [Mass/Vol] 9.1 mg/dL Normal 7.6-11.0 [facility] Comment on above: Performed By: #### L 100.0100, L500.2500 ####[facility] [address] [place], [address] Chloride [Moles/Vol] 95 mmol/L Low 98-108 [facility] Comment on above: Performed By: #### L 100.0100, L500.2500 ####[facility] [address] [place], [address] CO2 [Moles/Vol] 27.0 mmol/L Normal 21.0-32.0 [facility] Comment on above: Performed By: #### L 100.0100, L500.2500 ####[facility] [address] [place], [address] Creatinine [Mass/Vol] 3.46 mg/dL High 0.70-1.20 [facility] Comment on above: Performed By: #### L 100.0100, L500.2500 ####[facility] [address] [place], [address] ECRCL 21.65 ml/min Low 50-250 [facility] Comment on above: Performed By: #### L 100.0100, L500.2500 ####[facility] [address] [place], [address] GAP 14 Normal 5-15 [facility] Comment on above: Performed By: #### L 100.0100, L500.2500 ####[facility] [address] [place], [address] GFR/1.73 sq M.predicted among non-blacks MDRD (S/P/Bld) [Vol rate/Area] 17 mL/min/{1.73_m2} Low >60 [facility] Comment on above: Result Comment: mL/m in/1.73m2 CKD-EPI Creatinine Equation (2020) Performed By: #### L 100.0100, L500.2500 ####[facility] [address] [place], [address] Glucose [Mass/Vol] 138 mg/dL High 70-99 [facility] Comment on above: Performed By: #### L 100.0100, L500.2500 ####[facility] [address] [place], [address] Potassium [Moles/Vol] 3.8 mmol/L Normal 3.3-5.1 [facility] Comment on above: Performed By: #### L 100.0100, L500.2500 ####[facility] [address] [place], [address] Sodium [Moles/Vol] 137 mmol/L Normal 133-145 [facility] Comment on above: Performed By: #### L 100.0100, L500.2500 ####[facility] [address] [place], [address] Urea nitrogen [Mass/Vol] 25 mg/dL High 4-19 [facility] Comment on above: Performed By: #### L 100.0100, L500.2500 ####[facility] [address] [place], [address] Basophil percentageOrdered B y: Koffi Coffman on 10-22-2024 Basophils/100 WBC (Bld) 0.8 % 0-1 [facility] Bilirubin Test strip Ql (U)O rdered By: Koffi Coffman on 10-22-2024 Bilirubin Ql (U) Negative Negative [facility] CBC W/Diff, Automatedon 10-01 Absolute Lymph 1.49 X10 3/uL Normal 0.83-4.51 [facility] Comment on above: Performed By: #### L 100.0100, L500.2500 ####[facility] [address] [place], [address] Absolute Neut 5.3 X10 3/uL Normal 2.0-7.7 [facility] Comment on above: Performed By: #### L 100.0100, L500.2500 ####[facility] [address] [place], [address] Basophils/100 WBC (Bld) 0.8 % Normal 0-1 [facility] Comment on above: Performed By: #### L 100.0100, L500.2500 ####[facility] [address] [place], [address] Eosinophils/100 WBC (Bld) 2.6 % Normal 0-5 [facility] Comment on above: Performed By: #### L 100.0100, L500.2500 ####[facility] [address] [place], [address] Erythrocyte distribution width (RBC) [Ratio] 15.3 % High 11.6-14.6 [facility] Comment on above: Performed By: #### L 100.0100, L500.2500 ####[facility] [address] [place], [address] Hematocrit (Bld) [Volume fraction] 40.4 % Normal 40-54 [facility] Comment on above: Performed By: #### L 100.0100, L500.2500 ####[facility] [address] [place], [address] Hemoglobin (Bld) [Mass/Vol] 12.6 g/dL Low 13.0-16.5 [facility] Comment on above: Performed By: #### L 100.0100, L500.2500 ####[facility] [address] [place], [address] IG% 0.300 Normal 0.0-0.9 [facility] Comment on above: Result Comment: IG% - Immature Granulocytes (promyelocytes, myelocytes andmetamyelocytes) > 1% indicates that a LEFT SHIFT is Present. Performed By: #### L 100.0100, L500.2500 ####[facility] [address] [place], [address] Lymphocytes/100 WBC (Bld) 19.4 % Normal 19-41 [facility] Comment on above: Performed By: #### L 100.0100, L500.2500 ####[facility] [address] [place], [address] MCH (RBC) [Entitic mass] 29.6 pg Normal 27.0-32.0 [facility] Comment on above: Performed By: #### L 100.0100, L500.2500 ####[facility] [address] [place], [address] MCHC (RBC) [Mass/Vol] 31.2 g/dL Low 32-36 [facility] Comment on above: Performed By: #### L 100.0100, L500.2500 ####[facility] [address] [place], [address] MCV (RBC) [Entitic vol] 95.1 fL High 80-94 [facility] Comment on above: Performed By: #### L 100.0100, L500.2500 ####[facility] [address] [place], [address] Monocytes/100 WBC (Bld) 7.9 % Normal 0-10 [facility] [facility] Comment on above: Performed By: #### L 100.0100, L500.2500 ####[facility] [address] [place], [address] Neutrophils/100 WBC (Bld) 69.0 % Normal 47-70 [facility] Comment on above: Performed By: #### L 100.0100, L500.2500 ####[facility] [address] [place], [address] Nucleated RBC (Bld) [#/Vol] 0 10*3/uL Normal 0-5 [facility] Comment on above: Performed By: #### L 100.0100, L500.2500 ####[facility] [address] [place], [address] Platelet mean volume (Bld) [Entitic vol] 10.3 fL Normal 6.2-12.0 [facility] Comment on above: Performed By: #### L 100.0100, L500.2500 ####[facility] [address] [place], [address] Platelets (Bld) [#/Vol] 247 10*3/uL Normal 150-450 [facility] Comment on above: Performed By: #### L 100.0100, L500.2500 ####[facility] [address] [place], [address] RBC (Bld) [#/Vol] 4.25 10*6/uL Low 4.6-6.2 [facility] Comment on above: Performed By: #### L 100.0100, L500.2500 ####[facility] [address] [place], [address] RDW SD 53.5 fl High 35.1-43.9 [facility] Comment on above: Performed By: #### L 100.0100, L500.2500 ####[facility] [address] [place], [address] WBC (Bld) [#/Vol] 7.7 10*3/uL Normal 4.4-11.0 [facility] Comment on above: Performed By: #### L 100.0100, L500.2500 ####[facility] [address] [place], [address] CT ABDOMEN/PELVIS WITHOUT CO NTRASTon 10-22-2024 CT ABDOMEN/PELVIS WITHOUT CONTRAST EXAMINATION: CT ABDOMEN/PELVIS WITHOUT CONTRAST HISTORY: hydronephrosis COMPARISON: Renal ultrasound 2020, CT abdomen and pelvis 09/12/2020. TECHNIQUE: Unenhanced helical imaging of the abdomen and pelvis is performed. Multiplanar reconstructions are submitted. Dose reduction techniques were achieved by using: automated exposure control and/or adjustment of mA and /or kV according to patient size and/or use of iterative reconstruction technique. FINDINGS: ABDOMEN: LOWER CHEST:The imaged lung bases are clear. SOLID ORGANS: The liver is enlarged. Hepatic morphology and density are normal. Spleen, adrenal glands, pancreas, gallbladder, biliary ducts are intact. Bilateral renal atrophy left greater than right with severe bilateral hydronephrosis and proximal hydroureter. Right ureteric stent is in satisfactory position. BOWEL: The stomach, proximal small bowel, and imaged colon are normal in course and caliber. No bowel wall thickening. Extensive colonic diverticular disease. No findings of diverticulitis. MESENTERY AND RETROPERITONEUM: There is no free fluid, fluid collection or adenopathy. The abdominal aorta and IVC are intact. Aortic caliber is normal. Atherosclerotic disease of abdominal aorta. SOFT TISSUE AND ABDOMINAL WALL: No acute abnormality. OSSEOUS STRUCTURES: No acute osseous abnormality. 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 Patient is osteopenic. PELVIS: [Severe streak artifact from left hip arthroplasty.] GENITOURINARY: Jamison catheter balloon is inflated within the prostate (image 133, series 2). Urinary bladder is nearly completely decompressed. Right distal double-J ureteric stent is in satisfactory position. Left distal hydroureter tapers abruptly several centimeters above the left UVJ. At the left UVJ a calcification is noted likely within the distal ureter measuring 0.3 x 0.4 cm. BOWEL: Distal small bowel, rectosigmoid colon, cecum and imaged ascending colon are intact. No bowel wall thickening. Colonic diverticular disease. No findings of diverticulitis. Normal appendix. MESENTERY: There is no free fluid, fluid collection or adenopathy. SOFT TISSUE AND ABDOMINAL WALL: No acute abnormality. VASCULATURE: Noncontrast study OSSEOUS STRUCTURES: No acute osseous abnormality. IMPRESSION: 1. Jamison catheter balloon is inflated within the prostate. Repositioning is recommended. 2. Severe bilateral hydronephrosis and proximal hydroureter with bilateral renal atrophy. Right double-J ureteric stent is in satisfactory position. Right distal hydroureter terminates several centimeters above the right UVJ. 3. Left distal hydroureter tapering abruptly several centimeters above the left UVJ with 0.3 x 0.4 cm calcification likely within the distal ureter. 4. Colonic diverticular disease. No findings of diverticulitis. 5. Normal appendix. No adenopathy. A call report will be generated for this study and a preliminary impression will be sent to the ordering service. Normal [facility] Carbon dioxide, total [Moles /volume] in Central venous bloodOrdered By: Koffi Coffman on 10-22-2024 CO2 [Moles/Vol] 27.0 mmol/L 21.0-32.0 [facility] Chloride assayOrdered By: El Coffman on 10-22-2024 Chloride [Moles/Vol] 95 mmol/L Low 98-108 [facility] Emergency Department Summary on 10-22-2024 Emergency Department Summary Normal [facility] Eosinophil percentageOrdered By: Koffi Coffman on 10-22-2024 Eosinophils/100 WBC (Bld) 2.6 % 0-5 [facility] Erythrocyte distribution wid th ratioOrdered By: Koffi Coffman on 10-22-2024 Erythrocyte distribution width (RBC) [Ratio] 15.3 % High 11.6-14.6 [facility] Erythrocyte distribution wid th standard deviationOrdered By: oKffi Coffman on 10-22-2024 Erythrocyte distribution width (RBC) [Ratio] 53.5 fl High 35.1-43.9 [facility] Glomerular filtration rate ( GFR) estimation/1.73 sq m using serum, plasma, or whole bOrdered By: Koffi Coffman on 10-22-2024 GFR/1.73 sq M.predicted among non-blacks MDRD (S/P/Bld) [Vol rate/Area] 17 mL/min/{1.73_m2} Low >60 [facility] Comment on above: mL/min/1.73m2 CKD-EP I Creatinine Equation (2020) Hematocrit Auto (Bld) [Volum e fraction]Ordered By: Koffi Coffman on 10-22-2024 Hematocrit (Bld) [Volume fraction] 40.4 % 40-54 [facility] Hemoglobin measurementOrdere d By: Koffi Coffman on 10-22-2024 Hemoglobin (Bld) [Mass/Vol] 12.6 g/dL Low 13.0-16.5 [facility] Immature granulocytes/100 WB C Auto (Bld)Ordered By: Koffi Coffman on 10-22-2024 Immature granulocytes/100 WBC (Bld) 0.300 % 0.0-0.9 [facility] Comment on above: IG% - Immature Granu locytes (promyelocytes, myelocytes and metamyelocytes) > 1% indicates that a LEFT SHIFT is Present. Ketones Test strip Ql (U)Ord ered By: Koffi Coffman on 10-22-2024 Ketones Ql (U) Negative Negative [facility] Lactic Acidon 10-22-2024 Lactate [Moles/Vol] 2.2 mmol/L Invalid Interpretation Code 0.0-2.0 [facility] Comment on above: Order Comment: Y Result Comment: Crit ical Result(s) Called at: 1726 by: PATRICIA LEAL??Results read back by same. Performed By: #### L 503.6005 ####[facility] [address] [place], [address] Lactic acid measurementOrder ed By: Koffi Coffman on 10-22-2024 Lactate [Moles/Vol] 2.2 mmol/L High 0.0-2.0 [facility] Comment on above: Critical Result(s) C alled at: 1726 by: PATRICIA LAWRENCE Results read back by same. MCV (mean corpuscular volume ) determinationOrdered By: Koffi Coffman on 10-22-2024 MCV (RBC) [Entitic vol] 95.1 fL High 80-94 [facility] Mean corpuscular hemoglobin (MCH) determinationOrdered By: Koffi Coffman on 10-22-2024 MCH (RBC) [Entitic mass] 29.6 pg 27.0-32.0 [facility] Mean corpuscular hemoglobin concentration (MCHC) determinationOrdered By: Koffi Coffman on 10-22-2024 MCHC (RBC) [Mass/Vol] 31.2 g/dL Low 32-36 [facility] Mean platelet volume determi nationOrdered By: Koffi Coffman on 10-22-2024 Platelet mean volume (Bld) [Entitic vol] 10.3 fL 6.2-12.0 [facility] Microscopic analysis of urin e for red blood cells (RBC)Ordered By: Koffi Coffman on 10-22-2024 Microscopic analysis of urine for red blood cells (RBC) 0 SEEN /hpf 0-5 [facility] Monocyte percentageOrdered B y: Koffi Coffman on 10-22-2024 Monocytes/100 WBC (Bld) 7.9 % 0-10 [facility] Mucus LM Ql (Urine sed)Order ed By: Koffi Coffman on 10-22-2024 Mucus Ql (Urine sed) 0 SEEN /hpf [facility] Neutrophil percentageOrdered By: Koffi Coffman on 10-22-2024 Neutrophils/100 WBC (Bld) 69.0 % 47-70 [facility] Nitrite Test strip Ql (U)Ord ered By: Koffi Coffman on 10-22-2024 Nitrite Ql (U) Negative Negative [facility] Nucleated red blood cell per centageOrdered By: Koffi Coffman on 10-22-2024 Nucleated RBC/100 WBC (Bld) [Ratio] 0 % 0-5 [facility] Platelet countOrdered By: El Coffman on 10-22-2024 Platelets (Bld) [#/Vol] 247 10*3/uL 150-450 [facility] Potassium measurement (mass/ volume)Ordered By: Koffi Coffman on 10-22-2024 Potassium (Unsp spec) [Mass/Vol] 3.8 mmol/L 3.3-5.1 [facility] Protein Test strip Ql (U)Ord ered By: Koffi Coffman on 10-22-2024 Protein Ql (U) 100 mg/dl High Negative [facility] RBC Auto (Bld) [#/Vol]Ordere d By: Koffi Coffman on 10-22-2024 RBC (Bld) [#/Vol] 4.25 10*6/uL Low 4.6-6.2 [facility] Serum creatinine measurement (mass/volume)Ordered By: Koffi Coffman on 10-22-2024 Creatinine [Mass/Vol] 3.46 mg/dL High 0.70-1.20 [facility] Serum glucose measurement (m ass/volume)Ordered By: Koffi Coffman on 10-22-2024 Glucose [Mass/Vol] 138 mg/dL High 70-99 [facility] Serum or plasma calcium cris urement (mass/volume)Ordered By: Koffi Coffman on 10-22-2024 Calcium [Mass/Vol] 9.1 mg/dL 7.6-11.0 [facility] Serum or plasma urea nitroge n measurement (mass/volume)Ordered By: Koffi Coffman on 10-22-2024 Urea nitrogen [Mass/Vol] 25 mg/dL High 4-19 [facility] Sodium levelOrdered By: Law Coffman on 10-22-2024 Sodium [Moles/Vol] 137 mmol/L 133-145 [facility] Squamous epithelial cells de tection in urine sediment by light microscopyOrdered By: Kfofi Coffman on 10-22-2024 Epithelial cells.squamous LM Ql (Urine sed) 0 SEEN /hpf 0-5 [facility] Urinalysis, Completeon 10-22 BACTERIA 2+ /hpf Normal None Seen [facility] Comment on above: Order Comment: HORTENSIA TER SPECIMEN Performed By: #### L 400.0001, M100.2200 ####[facility] [address] [place], [place], [id number] WBC >100 SEEN Normal 0-5 [facility] Comment on above: Order Comment: HORTENSIA TER SPECIMEN Result Comment: Micr oscopic field is filled. Other elements may beobscured. Performed By: #### L 400.0001, M100.2200 ####[facility] [address] [place], [address] EPI,SQUAMOUS 0 SEEN Normal 0-5 [facility] Comment on above: Order Comment: HORTENSIA TER SPECIMEN Performed By: #### L 400.0001, M100.2200 ####[facility] [address] [place], [address] Mucus Ql (Urine sed) 0 SEEN Normal [facility] Comment on above: Order Comment: HORTENSIA TER SPECIMEN Performed By: #### L 400.0001, M100.2200 ####[facility] [address] [place], [address] RBC 0 SEEN Normal 0-5 [facility] Comment on above: Order Comment: HORTENSIA TER SPECIMEN Performed By: #### L 400.0001, M100.2200 ####[facility] [address] [place], [address] Urine clarityOrdered By: Kenia Coffman on 10-22-2024 Clarity (U) Turbid Clear [facility] Urine color determinationOrd ered By: Koffi Coffman on 10-22-2024 Color (U) Straw Yellow [facility] Urine cultureOrdered By: Kenia Coffman on 10-22-2024 Bacteria identified Cx Nom (U) ESBL Escherichia coli Abnormal [facility] Bacteria identified Cx Nom (U) Pseudomonas aeruginosa Abnormal [facility] Urine glucose detectionOrder ed By: Koffi Coffman on 10-22-2024 Glucose Ql (U) Normal mg/dl Normal [facility] Urine leukocyte esterase det ection by dipstickOrdered By: Koffi Coffman on 10-22-2024 Leukocyte esterase Test strip Ql (U) 500 /ul High Negative [facility] Urine pHOrdered By: Koffi Coffman on 10-22-2024 pH (U) 7.0 [pH] 5.0 - 8.0 [facility] Urine sediment bacteria coun t by microscopy (number/high power field)Ordered By: Koffi Coffman on 10-22-2024 Bacteria LM.HPF (Urine sed) [#/Area] 2 /[HPF] None Seen [facility] Urine specific gravity measu rementOrdered By: Koffi Coffman on 10-22-2024 Specific gravity (U) [Rel density] 1.015 1.002-1.030 [facility] Urine urobilinogen measureme ntOrdered By: Koffi Coffman on 10-22-2024 Urobilinogen Ql (U) Normal mg/dl Normal [facility] White blood cell (WBC) count Ordered By: Koffi Coffman on 10-22-2024 WBC (Bld) [#/Vol] 7.7 10*3/uL 4.4-11.0 [facility] White blood cell countOrdere d By: Koffi Coffman on 10-22-2024 White blood cell count >100 SEEN /hpf 0-5 [facility] Comment on above: Microscopic field is filled. Other elements may be obscured. BMP FASTINGon 10-21-2024 Creatinine [Mass/Vol] 5.40 mg/dL Critically high 0.70-1.20 [facility] Comment on above: Result Comment: Resu lt called to and read back by: DR Mohamud MEI 10/21/2024 @ 16:14 by [facility] Performed By: #### B MPF #### [place] [address] EST. GFR, 13 ml/min/1.73sq.m [facility] Comment on above: Performed By: #### B MPF #### [place] [address] EST. GFR,Non 11 ml/min/1.73sq.m [facility] Comment on above: Performed By: #### B MPF #### [place] [address] GFR Information Average GFR for 70+ years old = 75. [facility] Comment on above: Result Comment: History Professor collin Kidney disease, GFR = <60. Kidney failure, GFR = <15. The GFR estimate is not adjusted for extreme body surface area or acute process, nor has it been validated for women or ethnic groups other than and . Performed By: #### B MPF #### Testing performed at [address] [address] Anion gap [Moles/Vol] 15 mmol/L Normal [facility] Comment on above: Performed By: #### B MPF #### Testing performed at [address] [address] Calcium [Mass/Vol] 9.7 mg/dL Normal 8.4-10.2 [facility] Comment on above: Performed By: #### B MPF #### Testing performed at [address] [address] Chloride [Moles/Vol] 94 mmol/L Low 98-107 [facility] Comment on above: Result Comment: Adrienne silverman note: Triglyceride levels of 600mg/dL or higher may positively bias chloride results by approximately 2.1 mmol Performed By: #### B MPF #### Testing performed at [address] [address] CO2 [Moles/Vol] 28 mmol/L Normal 22-30 [facility] Comment on above: Performed By: #### B MPF #### Testing performed at [address] [address] Glucose [Mass/Vol] 118 mg/dL High 70-100 [facility] Comment on above: Result Comment: NORMAL <100 mg/dL PREDIABETES 101-126 mg/dL DIABETES 126 mg/dL or higher Performed By: #### B MPF #### Testing performed at [address] [address] Potassium [Moles/Vol] 4.8 mmol/L Normal 3.5-5.1 [facility] Comment on above: Performed By: #### B MPF #### Testing performed at [address] [address] Sodium [Moles/Vol] 137 mmol/L Normal 137-145 [facility] Comment on above: Performed By: #### B MPF #### Testing performed at [address] [address] Urea nitrogen [Mass/Vol] 46 mg/dL High 7-20 [facility] Comment on above: Performed By: #### B F #### Testing performed at [facility] [address] [place] [address] CV IR SUPRAPUBIC CATHETER PL Basil 10-14-2024 CV IR SUPRAPUBIC CATHETER PLACEMENT EXAMINATION: CV IR SUPRAPUBIC CATHETER PLACEMENT HISTORY: R33.9 Retention of urine, unspecified COMPOSITE SCIENCE TEACHER(S): Ata Sullivan MD COMPARISON: CT abdomen pelvis dated 10/21/2024 DEVICE: 16 Syrian balloon retained Councill tip catheter CONTRAST: Isovue-300 20 mL intravesicular MODERATE SEDATION: Versed 3 mg IV; fentanyl 200 mcg IV SEDATION START TIME: 14:27 SEDATION END TIME: 15:02 MEDICATIONS: Lidocaine 1% 19 mL SQ; Benadryl 25 mg IV; Zofran 4 mg IV FLUOROSCOPY DOSE AND TYPE OR TIME AND EXPOSURES: Dose Area Product: 6.45 Gy-cm 2 Cumulative Air KERMA: 46.1 mGy FLUOROSCOPY TIME: 3.2 minutes COMPLICATIONS: None TECHNIQUE AND FINDINGS: The procedure, risks, benefits, and alternative therapies were discussed in detail, and written informed consent was obtained. A time out was performed to verify correct patient and procedure. Moderate sedation was administered. The patient was monitored by the radiology nurse at all times. The patient was placed supine on the fluoroscopy table. The low midline abdomen was prepped and draped in usual sterile fashion. Corporate Director Of Human Resources fluoroscopic image of the pelvis demonstrates an indwelling right ureteral stent. Limited ultrasound examination of the pelvis demonstrates the bladder to be decompressed around the indwelling Jamison catheter balloon. An ultrasound image was saved and archived in PACS. Sterile 0.9 normal saline was instilled into the bladder via the indwelling Jamison catheter in order to distend the bladder. There is nearly free leakage of instilled fluid through the urethra, limiting bladder distension. Under ultrasound examination, there is mild bladder distension which is just adequate for percutaneous needle placement. An appropriate ultrasound window for a midline suprapubic approach into the bladder was identified. Care was taken to ensure that no bowel loops are identified along the planned needle trajectory. Soft tissues were anesthetized with 1% lidocaine. Under real time ultrasound guidance, an 18 gauge Chiba needle was advanced into the bladder lumen via the selected midline suprapubic approach. Needle placement into the bladder was confirmed by return of urine and injection of contrast. Contrast injection demonstrates a mildly distended bladder, with prompt passage of contrast around the indwelling Jamison catheter balloon and into the urethra. Under fluoroscopic guidance, an Amplatz super stiff wire was inserted through the Chiba needle and coiled in the bladder. The needle was removed over the wire. Under fluoroscopic observation, the tract was serially dilated to 20 Syrian. Then, a 16 Syrian Councill tip catheter was advanced over the wire, through the percutaneous tract, and into the bladder. The retention balloon was inflated with 10 mL saline mixed with a small amount of contrast and retracted against the bladder wall. The wire was then removed. Contrast was injected into the bladder through the suprapubic catheter, confirming appropriate positioning of the retention balloon within the bladder lumen. There is no evidence for bladder injury or leak. The suprapubic catheter was opened to gravity drainage with immediate return of urine. There were no immediate complications, and the patient tolerated the procedure well. The patient's urethral Jamison catheter was removed at the conclusion of the procedure. IMPRESSION: Successful ultrasound and fluoroscopic guided insertion of a 16 Syrian balloon retained suprapubic catheter. Appropriate positioning and function of the suprapubic catheter is confirmed. The suprapubic catheter was opened to gravity drainage. Workstation ID: [id number] Dictated by: ATA SULLIVAN on FriNov 08, 2024 5:40:04 PM EDT Transcribed by: ATA SULLIVAN on FriNov 08, 2024 5:40:04 PM EDT Finalized by: ATA SULLIVAN on FriNov 08, 2024 5:40:04 PM EDT Normal [facility] US RENAL RETROPERITONEALon 0 10-08-2024 US RENAL RETROPERITONEAL EXAM: US RENAL RETROPERITONEAL 10/07/2024 12:43 PM EDT: HISTORY: Urinary retention. COMPARISON: 03/05/2021 and 10/09/2020. TECHNIQUE: Real-time grayscale and color flow evaluation of the kidneys and bladder was performed. FINDINGS: Marked right-sided hydronephrosis is demonstrated diffusely with considerable renal pelvicalyceal dilatation. On the left, there are cystic foci superiorly and the renal pelvis is prominent without marked infundibular pelvicalyceal distention. Two superior left cystic areas measure about 2 cm diameter. The kidneys are appear mildly enlarged on the right measuring 12.1 cm in length (7.0 x 5.9 cm axially) and 14.7 cm on the left (8.8 x 6.3 cm transaxially). They may be slightly increased in parenchymal reflectivity without cortical thinning. The bladder is nondistended because of a Jamison catheter and is not assessed. Ureteral jets were not identified. IMPRESSION: 1. Severe right-sided hydronephrosis is demonstrated. 2. Two left-sided renal cysts are present superiorly an extrarenal left renal pelvis is noted; convincing hydronephrosis is not seen. 3. Slightly increased parenchymal reflectivity could relate to normal variation or mild chronic renal disease. 4. The bladder is not assessed. Normal [facility] PSA,DIAGNOSTICon 10-07-2024 PSA,DIAGNOSTIC 0.079 NG/ML Normal [facility] Comment on above: Result Comment: OBTAIN BASELINE BETWEEN AGES OF 45-75 LESS THAN 1.0 ng/mL REPEAT TESTING AT 2-4 YEARS 1.0-3.0 ng/mL REPEAT TESTING AT 1-2 YEARS GREATER THAN 3.0 ng/mL REPEAT PSA,WERNER, AND WORKUP FOR BENIGN DISEASE AGE GREATER THAN 75, PSA LESS THAN 3 ng/mL REPEAT TESTING IN 1-4 YEARS Patient results determined by testing on the [employer] Vitros 7600 analyzer by immunometric method. This assay may not be comparable using a different vamp wetter or method. Performed By: #### P SAD #### Testing performed at [address] [address] Absolute lymphocyte countOrd ered By: Yaya Foster on 09-24-2024 Lymphocytes Auto (Unsp spec) [#/Vol] 1.29 10*3/uL 0.83-4.51 [facility] Absolute neutrophil countOrd ered By: Yaya Foster on 09-24-2024 Neutrophils (Bld) [#/Vol] 5.8 10*3/uL 2.0-7.7 [facility] Automated lymphocyte count a s percentage of total leukocytesOrdered By: Yaya Foster on 09-24-2024 Lymphocytes/100 WBC Auto (Unsp spec) 15.4 % Low 19-41 [facility] BUNon 09-24-2024 Urea nitrogen [Mass/Vol] 52 mg/dL High 4-19 [facility] Comment on above: Performed By: #### L 100.0100, L501.5600, L501.1000 ####[facility] [address] [place], [address] Urea nitrogen [Mass/Vol] 14 mg/dL Normal 4- [facility] Comment on above: Performed By: #### L 501.1000 ####[facility] [address] [place], [address] Basophil percentageOrdered B y: Yaya Foster on 09-24-2024 Basophils/100 WBC (Bld) 0.6 % 0-1 [facility] CBC W/Diff, Automatedon 09-01 Absolute Lymph 1.29 X10 3/uL Normal 0.83-4.51 [facility] Comment on above: Performed By: #### L 100.0100, L501.5600, L501.1000 ####[facility] [address] [place], [address] Absolute Neut 5.8 X10 3/uL Normal 2.0-7.7 [facility] Comment on above: Performed By: #### L 100.0100, L501.5600, L501.1000 ####[facility] [address] [place], [address] Basophils/100 WBC (Bld) 0.6 % Normal 0-1 [facility] Comment on above: Performed By: #### L 100.0100, L501.5600, L501.1000 ####[facility] [address] [place], [address] Eosinophils/100 WBC (Bld) 5.2 % High 0-5 [facility] Comment on above: Performed By: #### L 100.0100, L501.5600, L501.1000 ####[facility] [address] [place], [address] Erythrocyte distribution width (RBC) [Ratio] 16.5 % High 11.6-14.6 [facility] Comment on above: Performed By: #### L 100.0100, L501.5600, L501.1000 ####[facility] [address] [place], [address] Hematocrit (Bld) [Volume fraction] 35.4 % Low 40-54 [facility] Comment on above: Performed By: #### L 100.0100, L501.5600, L501.1000 ####[facility] [address] [place], [address] Hemoglobin (Bld) [Mass/Vol] 10.9 g/dL Low 13.0-16.5 [facility] Comment on above: Performed By: #### L 100.0100, L501.5600, L501.1000 ####[facility] [address] [place], [address] IG% 0.400 Normal 0.0-0.9 [facility] [facility] Comment on above: Result Comment: IG% - Immature Granulocytes (promyelocytes, myelocytes andmetamyelocytes) > 1% indicates that a LEFT SHIFT is Present. Performed By: #### L 100.0100, L501.5600, L501.1000 ####[facility] [address] [place], [address] Lymphocytes/100 WBC (Bld) 15.4 % Low 19-41 [facility] Comment on above: Performed By: #### L 100.0100, L501.5600, L501.1000 ####[facility] [address] [place], [address] MCH (RBC) [Entitic mass] 29.8 pg Normal 27.0-32.0 [facility] Comment on above: Performed By: #### L 100.0100, L501.5600, L501.1000 ####[facility] [address] [place], [address] MCHC (RBC) [Mass/Vol] 30.8 g/dL Low 32-36 [facility] Comment on above: Performed By: #### L 100.0100, L501.5600, L501.1000 ####[facility] [address] [place], [address] MCV (RBC) [Entitic vol] 96.7 fL High 80-94 [facility] Comment on above: Performed By: #### L 100.0100, L501.5600, L501.1000 ####[facility] [address] [place], [address] Monocytes/100 WBC (Bld) 9.6 % Normal 0-10 [facility] Comment on above: Performed By: #### L 100.0100, L501.5600, L501.1000 ####[facility] [address] [place], [address] Neutrophils/100 WBC (Bld) 68.8 % Normal 47-70 [facility] Comment on above: Performed By: #### L 100.0100, L501.5600, L501.1000 ####[facility] [address] [place], [address] Nucleated RBC (Bld) [#/Vol] 0 10*3/uL Normal 0-5 [facility] Comment on above: Performed By: #### L 100.0100, L501.5600, L501.1000 ####[facility] [address] [place], [address] Platelet mean volume (Bld) [Entitic vol] 11.6 fL Normal 6.2-12.0 [facility] Comment on above: Performed By: #### L 100.0100, L501.5600, L501.1000 ####[facility] [address] [place], [address] Platelets (Bld) [#/Vol] 225 10*3/uL Normal 150-450 [facility] Comment on above: Performed By: #### L 100.0100, L501.5600, L501.1000 ####[facility] [address] [place], [address] RBC (Bld) [#/Vol] 3.66 10*6/uL Low 4.6-6.2 [facility] Comment on above: Performed By: #### L 100.0100, L501.5600, L501.1000 ####[facility] [address] [place], [address] RDW SD 59.1 fl High 35.1-43.9 [facility] Comment on above: Performed By: #### L 100.0100, L501.5600, L501.1000 ####[facility] [address] [place], [address] WBC (Bld) [#/Vol] 8.4 10*3/uL Normal 4.4-11.0 [facility] Comment on above: Performed By: #### L 100.0100, L501.5600, L501.1000 ####[facility] [address] [place], [address] Eosinophil percentageOrdered By: Yaya Foster on 09-24-2024 Eosinophils/100 WBC (Bld) 5.2 % High 0-5 [facility] Erythrocyte distribution wid th ratioOrdered By: [facility] centergarcía Foster on 09-24-2024 Erythrocyte distribution width (RBC) [Ratio] 16.5 % High 11.6-14.6 [facility] Erythrocyte distribution wid th standard deviationOrdered By: Yaya Foster on 09-24-2024 Erythrocyte distribution width (RBC) [Ratio] 59.1 fl High 35.1-43.9 [facility] Hematocrit Auto (Bld) [Volum e fraction]Ordered By: Yaya Foster on 09-24-2024 Hematocrit (Bld) [Volume fraction] 35.4 % Low 40-54 [facility] Hemoglobin measurementOrdere d By: Yaya Foster on 09-24-2024 Hemoglobin (Bld) [Mass/Vol] 10.9 g/dL Low 13.0-16.5 [facility] Immature granulocytes/100 WB C Auto (Bld)Ordered By: Yaya Foster on 09-24-2024 Immature granulocytes/100 WBC (Bld) 0.400 % 0.0-0.9 [facility] Comment on above: IG% - Immature Granu locytes (promyelocytes, myelocytes and metamyelocytes) > 1% indicates that a LEFT SHIFT is Present. MCV (mean corpuscular volume ) determinationOrdered By: Yaya Foster on 09-24-2024 MCV (RBC) [Entitic vol] 96.7 fL High 80-94 [facility] Mean corpuscular hemoglobin (MCH) determinationOrdered By: Yaya Foster on 09-24-2024 MCH (RBC) [Entitic mass] 29.8 pg 27.0-32.0 [facility] Mean corpuscular hemoglobin concentration (MCHC) determinationOrdered By: Yaya Foster on 09-24-2024 MCHC (RBC) [Mass/Vol] 30.8 g/dL Low 32-36 [facility] Mean platelet volume determi nationOrdered By: Yaya Foster on 09-24-2024 Platelet mean volume (Bld) [Entitic vol] 11.6 fL 6.2-12.0 [facility] Monocyte percentageOrdered B y: Yaya Foster on 09-24-2024 Monocytes/100 WBC (Bld) 9.6 % 0-10 [facility] Neutrophil percentageOrdered By: Yaya Foster on 09-24-2024 Neutrophils/100 WBC (Bld) 68.8 % 47-70 [facility] Nucleated red blood cell per centageOrdered By: Yaay Foster on 09-24-2024 Nucleated RBC/100 WBC (Bld) [Ratio] 0 % 0-5 [facility] Platelet countOrdered By: Sami Foster on 09-24-2024 Platelets (Bld) [#/Vol] 225 10*3/uL 150-450 [facility] Potassiumon 04-25-2025 Potassium [Moles/Vol] 5.7 mmol/L High 3.3-5.1 [facility] Comment on above: Performed By: #### L 100.0100, L501.5600, L501.1000 ####[facility] [address] [place], [address] Potassium measurement (mass/ volume)Ordered By: Yaya Foster on 09-24-2024 Potassium (Unsp spec) [Mass/Vol] 5.7 mmol/L High 3.3-5.1 [facility] RBC Auto (Bld) [#/Vol]Ordere d By: Yaya Foster on 09-24-2024 RBC (Bld) [#/Vol] 3.66 10*6/uL Low 4.6-6.2 [facility] Serum or plasma urea nitroge n measurement (mass/volume)Ordered By: Yaya Foster on 09-24-2024 Urea nitrogen [Mass/Vol] 14 mg/dL 4-19 [facility] White blood cell (WBC) count Ordered By: Minklernikole Foster on 09-24-2024 WBC (Bld) [#/Vol] 8.4 10*3/uL 4.4-11.0 [facility] Electrocardiogram reportOrde red By: Silverio Yin on 08-17-2024 EKG study [facility] [address] [place] [address] 12 Lead EKG 08/16/24 1802 MR#: [id number] Acct: [id number] Name: GENET BOOTH Rep #:[id number] : 1945 79 From: Silverio Yin MD Attending Dr: Status: REG E R Ordering Dr: Ren Uriarte DO Date: 5 Location: ED Sex: M C Admitted: Test Reason : SYNCOPE Blood Pressure : */* mmHG Vent. Rate : 83 BPM Atrial Rate : 83 BPM P-R Int : 204 ms QRS Dur : 94 ms QT Int : 388 ms P-R-T Axes : 60 58 30 degrees QTcB Int : 455 ms Sinus rhythm with Premature atrial complexes with Aberrant conduction Nonspecific T wave abnormality Abnormal ECG Confirmed by KATHERINE WEEKS, SILVERIO ([id number]), avid editor NEGRITO CONNER ([id number]) on 08/17/2024 8:19:36 AM Referred By: SHERRELL Confirmed By: SILVERIO YIN MD 08/17/24 08 Date _ Silverio Yin MD CC: Dr. Ata Hernandez MD; Dr. Ren Uriarte, DO ~ Signed [facility] Other 12 Lead EKGon 08-16-2024 12 Lead EKG Normal [facility] Absolute lymphocyte countOrd ered By: Ren Uriarte on 08-16-2024 Lymphocytes Auto (Unsp spec) [#/Vol] 0.98 10*3/uL 0.83-4.51 [facility] Absolute neutrophil countOrd ered By: Ren Uriarte on 08-16-2024 Neutrophils (Bld) [#/Vol] 7.4 10*3/uL 2.0-7.7 [facility] Anion gap in Serum or Plasma Ordered By: Ren Uriarte on 08-16-2024 Anion gap [Moles/Vol] 16 mmol/L High 5-15 [facility] Automated lymphocyte count a s percentage of total leukocytesOrdered By: Ren Uriarte on 08-16-2024 Lymphocytes/100 WBC Auto (Unsp spec) 10.2 % Low 19-41 [facility] BUN/creatinine ratioOrdered By: Ren Uriarte on 08-16-2024 Urea nitrogen/Creatinine [Mass ratio] 7.6 mg/mg Low 10-20 [facility] Basic Metabolic Profile (BMP )on 08-16-2024 BUN/CRE 7.6 RATIO Low 10-20 [facility] Comment on above: Performed By: #### L 100.0100, L500.2500 ####[facility] [address] [place], [address] Calcium [Mass/Vol] 9.8 mg/dL Normal 7.6-11.0 [facility] Comment on above: Performed By: #### L 100.0100, L500.2500 ####[facility] [address] [place], [address] Chloride [Moles/Vol] 96 mmol/L Low 98-108 [facility] Comment on above: Performed By: #### L 100.0100, L500.2500 ####[facility] [address] [place], [address] CO2 [Moles/Vol] 26.3 mmol/L Normal 21.0-32.0 [facility] Comment on above: Performed By: #### L 100.0100, L500.2500 ####[facility] [address] [place], [address] Creatinine [Mass/Vol] 2.96 mg/dL High 0.70-1.20 [facility] Comment on above: Performed By: #### L 100.0100, L500.2500 ####[facility] [address] [place], [address] ECRCL 25.11 ml/min Low 50-250 [facility] Comment on above: Performed By: #### L 100.0100, L500.2500 ####[facility] [address] [place], [address] GAP 16 High 5-15 [facility] Comment on above: Performed By: #### L 100.0100, L500.2500 ####[facility] [address] [place], [address] GFR/1.73 sq M.predicted among non-blacks MDRD (S/P/Bld) [Vol rate/Area] 21 mL/min/{1.73_m2} Low >60 [facility] Comment on above: Result Comment: mL/m in/1.73m2 CKD-EPI Creatinine Equation (2020) Performed By: #### L 100.0100, L500.2500 ####[facility] [address] [place], [address] Glucose [Mass/Vol] 107 mg/dL High 70-99 [facility] Comment on above: Performed By: #### L 100.0100, L500.2500 ####[facility] [address] [place], [address] Potassium [Moles/Vol] 4.1 mmol/L Normal 3.3-5.1 [facility] Comment on above: Result Comment: Hemo lysis present, Results??could be affected.?? Performed By: #### L 100.0100, L500.2500 ####[facility] [address] [place], [address] Sodium [Moles/Vol] 139 mmol/L Normal 133-145 [facility] Comment on above: Performed By: #### L 100.0100, L500.2500 ####[facility] [address] [place], [address] Urea nitrogen [Mass/Vol] 23 mg/dL High 4-19 [facility] Comment on above: Performed By: #### L 100.0100, L500.2500 ####[facility] [address] [place], [address] Basophil percentageOrdered B y: Ren Uriarte on 08-16-2024 Basophils/100 WBC (Bld) 0.6 % 0-1 [facility] Bilirubin Test strip Ql (U)O rdered By: Ren Uriarte on 08-16-2024 Bilirubin Ql (U) Negative Negative [facility] CBC W/Diff, Automatedon 07-31 Absolute Lymph 0.98 X10 3/uL Normal 0.83-4.51 [facility] Comment on above: Performed By: #### L 100.0100, L500.2500 ####[facility] [address] [place], [address] Absolute Neut 7.4 X10 3/uL Normal 2.0-7.7 [facility] Comment on above: Performed By: #### L 100.0100, L500.2500 ####[facility] [address] [place], [address] Basophils/100 WBC (Bld) 0.6 % Normal 0-1 [facility] Comment on above: Performed By: #### L 100.0100, L500.2500 ####[facility] [address] [place], [address] Eosinophils/100 WBC (Bld) 1.5 % Normal 0-5 [facility] Comment on above: Performed By: #### L 100.0100, L500.2500 ####[facility] [address] [place], [address] Erythrocyte distribution width (RBC) [Ratio] 16.8 % High 11.6-14.6 [facility] Comment on above: Performed By: #### L 100.0100, L500.2500 ####[facility] [address] [place], [address] Hematocrit (Bld) [Volume fraction] 37.6 % Low 40-54 [facility] Comment on above: Performed By: #### L 100.0100, L500.2500 ####[facility] [address] [place], [address] Hemoglobin (Bld) [Mass/Vol] 11.9 g/dL Low 13.0-16.5 [facility] Comment on above: Performed By: #### L 100.0100, L500.2500 ####[facility] [address] [place], [address] IG% 0.800 Normal 0.0-0.9 [facility] Comment on above: Result Comment: IG% - Immature Granulocytes (promyelocytes, myelocytes andmetamyelocytes) > 1% indicates that a LEFT SHIFT is Present. Performed By: #### L 100.0100, L500.2500 ####[facility] [address] [place], [address] Lymphocytes/100 WBC (Bld) 10.2 % Low 19-41 [facility] Comment on above: Performed By: #### L 100.0100, L500.2500 ####[facility] [address] [place], [address] MCH (RBC) [Entitic mass] 29.3 pg Normal 27.0-32.0 [facility] Comment on above: Performed By: #### L 100.0100, L500.2500 ####[facility] [address] [place], [address] MCHC (RBC) [Mass/Vol] 31.6 g/dL Low 32-36 [facility] Comment on above: Performed By: #### L 100.0100, L500.2500 ####[facility] [address] [place], [address] MCV (RBC) [Entitic vol] 92.6 fL Normal 80-94 [facility] Comment on above: Performed By: #### L 100.0100, L500.2500 ####[facility] [address] [place], [address] Monocytes/100 WBC (Bld) 9.8 % Normal 0-10 [facility] Comment on above: Performed By: #### L 100.0100, L500.2500 ####[facility] [address] [place], [address] Neutrophils/100 WBC (Bld) 77.1 % High 47-70 [facility] Comment on above: Performed By: #### L 100.0100, L500.2500 ####[facility] [address] [place], [address] Nucleated RBC (Bld) [#/Vol] 0 10*3/uL Normal 0-5 [facility] Comment on above: Performed By: #### L 100.0100, L500.2500 ####[facility] [address] [place], [address] Platelet mean volume (Bld) [Entitic vol] 10.1 fL Normal 6.2-12.0 [facility] Comment on above: Performed By: #### L 100.0100, L500.2500 ####[facility] [address] [place], [address] Platelets (Bld) [#/Vol] 251 10*3/uL Normal 150-450 [facility] Comment on above: Performed By: #### L 100.0100, L500.2500 ####[facility] [address] [place], [address] RBC (Bld) [#/Vol] 4.06 10*6/uL Low 4.6-6.2 [facility] Comment on above: Performed By: #### L 100.0100, L500.2500 ####[facility] [address] [place], [address] RDW SD 56.8 fl High 35.1-43.9 [facility] Comment on above: Performed By: #### L 100.0100, L500.2500 ####[facility] [address] [place], [address] WBC (Bld) [#/Vol] 9.6 10*3/uL Normal 4.4-11.0 [facility] Comment on above: Performed By: #### L 100.0100, L500.2500 ####[facility] [address] [place], [address] Carbon dioxide, total [Moles /volume] in Central venous bloodOrdered By: Ren Cruz 08-16-2024 CO2 [Moles/Vol] 26.3 mmol/L 21.0-32.0 [facility] Chloride assayOrdered By: Ramiro Uriarte on 08-16-2024 Chloride [Moles/Vol] 96 mmol/L Low 98-108 [facility] Emergency Department Summary on 08-16-2024 Emergency Department Summary Normal [facility] Eosinophil percentageOrdered By: Ren Uriarte on 08-16-2024 Eosinophils/100 WBC (Bld) 1.5 % 0-5 [facility] Epithelial cells.squamous LM Ql (Urine sed)Ordered By: Ren Uriarte on 08-16-2024 Epithelial cells.squamous LM.HPF (Urine sed) [#/Area] 0 /[HPF] 0-5 [facility] Erythrocyte distribution wid th ratioOrdered By: Ren Uriarte on 08-16-2024 Erythrocyte distribution width (RBC) [Ratio] 16.8 % High 11.6-14.6 [facility] Erythrocyte distribution wid th standard deviationOrdered By: Ren Uriarte on 08-16-2024 Erythrocyte distribution width (RBC) [Entitic vol] 56.8 fL High 35.1-43.9 [facility] Erythrocyte distribution width (RBC) [Ratio] 56.8 fl High 35.1-43.9 [facility] Estimation of creatinine jessica aranceOrdered By: Ren Uriarte on 08-16-2024 Estimated Creatinine Clearance Calc 25.11 ml/min Low 50-250 [facility] GFR/1.73 sq M.predicted rianer g non-blacks MDRD (S/P/Bld) [Vol rate/Area]Ordered By: Ren Uriarte on 08-16-2024 Estimated GFR (MDRD) Non-Af Amer 21 Low >60 [facility] Comment on above: mL/min/1.73m2 CKD-EP I Creatinine Equation (2020) Glomerular filtration rate ( GFR) estimation/1.73 sq m using serum, plasma, or whole bOrdered By: Ren Uriarte on 08-16-2024 GFR/1.73 sq M.predicted among non-blacks MDRD (S/P/Bld) [Vol rate/Area] 21 mL/min/{1.73_m2} Low >60 [facility] Comment on above: mL/min/1.73m2 CKD-EP I Creatinine Equation (2020) Glucose Ql (U)Ordered By: Ramiro Uriarte on 08-16-2024 Urine Glucose (UA) Normal mg/dl Normal [facility] Hematocrit Auto (Bld) [Volum e fraction]Ordered By: Ren Uriarte on 08-16-2024 Hematocrit (Bld) [Volume fraction] 37.6 % Low 40-54 [facility] Hemoglobin measurementOrdere d By: Ren Uriarte on 08-16-2024 Hemoglobin (Bld) [Mass/Vol] 11.9 g/dL Low 13.0-16.5 [facility] Immature granulocytes/100 WB C Auto (Bld)Ordered By: Ren Uriarte on 08-16-2024 Immature granulocytes/100 WBC (Bld) 0.800 % 0.0-0.9 [facility] Comment on above: IG% - Immature Granu locytes (promyelocytes, myelocytes and metamyelocytes) > 1% indicates that a LEFT SHIFT is Present. Ketones Test strip Ql (U)Ord ered By: Ren Uriarte on 08-16-2024 Ketones Ql (U) Negative Negative [facility] Lymphocytes Auto (Unsp spec) [#/Vol]Ordered By: Ren Uriarte on 08-16-2024 Lymphocytes (Bld) [#/Vol] 0.98 10*3/uL 0.83-4.51 [facility] Lymphocytes/100 WBC Auto (Un sp spec)Ordered By: Ren Uriarte on 08-16-2024 Lymphocytes/100 WBC (Bld) 10.2 % Low 19-41 [facility] MCV (mean corpuscular volume ) determinationOrdered By: Ren Uriarte on 08-16-2024 MCV (RBC) [Entitic vol] 92.6 fL 80-94 [facility] Mean corpuscular hemoglobin (MCH) determinationOrdered By: Ren Uriarte on 08-16-2024 MCH (RBC) [Entitic mass] 29.3 pg 27.0-32.0 [facility] Mean corpuscular hemoglobin concentration (MCHC) determinationOrdered By: Ren Uriarte on 08-16-2024 MCHC (RBC) [Mass/Vol] 31.6 g/dL Low 32-36 [facility] Mean platelet volume determi nationOrdered By: Ren Uriarte on 08-16-2024 Platelet mean volume (Bld) [Entitic vol] 10.1 fL 6.2-12.0 [facility] Microscopic analysis of urin e for red blood cells (RBC)Ordered By: Ren Uriarte on 08-16-2024 Microscopic analysis of urine for red blood cells (RBC) > 100 SEEN /hpf 0-5 [facility] Urine RBC > 100 SEEN /hpf 0-5 [facility] Monocyte percentageOrdered B y: Ren Uriarte on 08-16-2024 Monocytes/100 WBC (Bld) 9.8 % 0-10 [facility] Mucus LM Ql (Urine sed)Order ed By: Ren Uriarte on 08-16-2024 Mucus Ql (Urine sed) 0 SEEN /hpf [facility] Neutrophil percentageOrdered By: Ren Uriarte on 08-16-2024 Neutrophils/100 WBC (Bld) 77.1 % High 47-70 [facility] Nitrite Test strip Ql (U)Ord ered By: Ren Uriarte on 08-16-2024 Nitrite Ql (U) Positive High Negative [facility] Nucleated red blood cell per centageOrdered By: Ren Uriarte on 08-16-2024 Nucleated RBC/100 WBC (Bld) [Ratio] 0 % 0-5 [facility] Platelet countOrdered By: Ramiro Uriarte on 08-16-2024 Platelets (Bld) [#/Vol] 251 10*3/uL 150-450 [facility] Potassium (Unsp spec) [Mass/ Vol]Ordered By: Ren Uriarte on 08-16-2024 Potassium [Moles/Vol] 4.1 mmol/L 3.3-5.1 [facility] Comment on above: Hemolysis present, R esults could be affected. Potassium measurement (mass/ volume)Ordered By: Ren Uriarte on 08-16-2024 Potassium (Unsp spec) [Mass/Vol] 4.1 mmol/L 3.3-5.1 [facility] Comment on above: Hemolysis present, R esults could be affected. Protein Test strip Ql (U)Ord ered By: Ren Uriarte on 08-16-2024 Protein Ql (U) 500 mg/dl High Negative [facility] RBC Auto (Bld) [#/Vol]Ordere d By: Ren Uriarte on 08-16-2024 RBC (Bld) [#/Vol] 4.06 10*6/uL Low 4.6-6.2 [facility] Serum creatinine measurement (mass/volume)Ordered By: Ren Uriarte on 08-16-2024 Creatinine [Mass/Vol] 2.96 mg/dL High 0.70-1.20 [facility] Serum glucose measurement (m ass/volume)Ordered By: Ren Uriarte on 08-16-2024 Glucose [Mass/Vol] 107 mg/dL High 70-99 [facility] Serum or plasma calcium cris urement (mass/volume)Ordered By: Ren Urirate on 08-16-2024 Calcium [Mass/Vol] 9.8 mg/dL 7.6-11.0 [facility] Serum or plasma urea nitroge n measurement (mass/volume)Ordered By: Ren Uriarte on 08-16-2024 Urea nitrogen [Mass/Vol] 23 mg/dL High 4-19 [facility] Sodium levelOrdered By: Ren Uriarte on 08-16-2024 Sodium [Moles/Vol] 139 mmol/L 133-145 [facility] Squamous epithelial cells de tection in urine sediment by light microscopyOrdered By: Ren Uriarte on 08-16-2024 Epithelial cells.squamous LM Ql (Urine sed) 0 SEEN /hpf 0-5 [facility] Urinalysis, Completeon 08-16 BACTERIA 4+ /hpf Normal None Seen [facility] Comment on above: Order Comment: COLOR OF URINE MAY AFFECT DIPSTICK RESULTS.B2B SALES CONSULTANT TO SPECIFY Performed By: #### L 400.0001 ####[facility] [address] [place], [place], [id number] RBC > 100 SEEN Normal 0-5 [facility] Comment on above: Order Comment: COLOR OF URINE MAY AFFECT DIPSTICK RESULTS.B2B SALES CONSULTANT TO SPECIFY Performed By: #### L 400.0001 ####[facility] [address] [place], [place], [id number] WBC 50-100 SEEN Normal 0-5 [facility] Comment on above: Order Comment: COLOR OF URINE MAY AFFECT DIPSTICK RESULTS.B2B SALES CONSULTANT TO SPECIFY Performed By: #### L 400.0001 ####[facility] [address] [place], [address] EPI,SQUAMOUS 0 SEEN Normal 0-5 [facility] Comment on above: Order Comment: COLOR OF URINE MAY AFFECT DIPSTICK RESULTS.B2B SALES CONSULTANT TO SPECIFY Performed By: #### L 400.0001 ####[facility] [address] [place], [address] Mucus Ql (Urine sed) 0 SEEN Normal [facility] Comment on above: Order Comment: COLOR OF URINE MAY AFFECT DIPSTICK RESULTS.B2B SALES CONSULTANT TO SPECIFY Performed By: #### L 400.0001 ####[facility] [address] [place], [address] Urine Cultureon 08-16-2024 URC Normal [facility] Comment on above: Performed By: #### M 100.2200 ####[facility] [address] [place], [address] Urine blood detectionOrdered By: Ren Uriarte on 08-16-2024 Urine Occult Blood 250 /ul High Negative [facility] Urine clarityOrdered By: Akhil Uriarte on 08-16-2024 Clarity (U) Cloudy Clear [facility] Urine color determinationOrd ered By: Ren Uriarte on 08-16-2024 Color (U) Red Yellow [facility] Urine glucose detectionOrder ed By: Ren Uriarte on 08-16-2024 Glucose Ql (U) Normal mg/dl Normal [facility] Urine leukocyte esterase det ection by dipstickOrdered By: Ren Uriarte on 08-16-2024 Leukocyte esterase Test strip Ql (U) 500 /ul High Negative [facility] Urine pHOrdered By: Ren Uriarte on 08-16-2024 pH (U) 7.0 [pH] 5.0 - 8.0 [facility] Urine sediment bacteria coun t by microscopy (number/high power field)Ordered By: Ren Uriarte on 08-16-2024 Bacteria LM.HPF (Urine sed) [#/Area] 4 /[HPF] None Seen [facility] Urine specific gravity measu rementOrdered By: Ren Uriarte on 08-16-2024 Specific gravity (U) [Rel density] 1.010 1.002-1.030 [facility] Urine urobilinogen measureme ntOrdered By: Ren Uriarte on 08-16-2024 Urobilinogen Ql (U) Normal mg/dl Normal [facility] Urobilinogen Ql (U)Ordered B y: Ren Sherrell on 08-16-2024 Urine Urobilinogen Normal mg/dl Normal [facility] White blood cell (WBC) count Ordered By: Ren Uriarte on 08-16-2024 WBC (Bld) [#/Vol] 9.6 10*3/uL 4.4-11.0 [facility] White blood cell countOrdere d By: Ren Uriarte on 08-16-2024 Urine WBC 50-100 SEEN /hpf 0-5 [facility] [facility] White blood cell count 50-100 SEEN /hpf 0-5 [facility] 12 Lead EKGon 08-13-2024 12 Lead EKG Normal [facility] Absolute lymphocyte countOrd ered By: Rajat Suazo on 08-13-2024 Lymphocytes Auto (Unsp spec) [#/Vol] 1.23 10*3/uL 0.83-4.51 [facility] Absolute neutrophil countOrd ered By: Rajat Suazo on 08-13-2024 Neutrophils (Bld) [#/Vol] 5.8 10*3/uL 2.0-7.7 [facility] Anion gap in Serum or Plasma Ordered By: Rajat Suazo on 08-13-2024 Anion gap [Moles/Vol] 12 mmol/L 5-15 [facility] Automated blood erythrocyte countOrdered By: Rajat Suazo on 08-13-2024 RBC (Bld) [#/Vol] 3.71 10*6/uL Low 4.6-6.2 [facility] Comment on above: Performed By: #### L 500.2500, L100.0100 ####[facility] [address] [place], [place], [address] Automated blood hematocrit ( percentage)Ordered By: Rajat Suazo on 08-13-2024 Hematocrit (Bld) [Volume fraction] 35.3 % Low 40-54 [facility] Comment on above: Performed By: #### L 500.2500, L100.0100 ####[facility] [address] [place], [address] Automated lymphocyte count a s percentage of total leukocytesOrdered By: Rajat Suazo on 08-13-2024 Lymphocytes/100 WBC (Bld) 15.2 % Low 19-41 [facility] Comment on above: Performed By: #### L 500.2500, L100.0100 ####[facility] [address] [place], [address] Lymphocytes/100 WBC Auto (Unsp spec) 15.2 % Low 19-41 [facility] BUN/creatinine ratioOrdered By: Rajat Suazo on 08-13-2024 Urea nitrogen/Creatinine [Mass ratio] 6.4 mg/mg Low 10-20 [facility] Basic Metabolic Profile (BMP )on 08-13-2024 BUN/CRE 6.4 RATIO [facility] 10-20 [facility] Comment on above: Performed By: #### L 500.2500, L100.0100 ####[facility] [address] [place], [address] ECRCL 26.62 ml/min Low 50-250 [facility] Comment on above: Performed By: #### L 500.2500, L100.0100 ####[facility] [address] [place], [address] GAP 12 Normal 5-15 [facility] Comment on above: Performed By: #### L 500.2500, L100.0100 ####[facility] [address] [place], [address] Basophil percentageOrdered B y: Rajat Suazo on 08-13-2024 Basophils/100 WBC (Bld) 0.6 % Normal 0-1 [facility] Comment on above: Performed By: #### L 500.2500, L100.0100 ####[facility] [address] [place], [address] Bilirubin Test strip Ql (U)O rdered By: Rajat Suazo on 08-13-2024 Bilirubin Ql (U) Negative Negative [facility] CBC W/Diff, Automatedon 07-31 Absolute Lymph 1.23 X10 3/uL Normal 0.83-4.51 [facility] Comment on above: Performed By: #### L 500.2500, L100.0100 ####[facility] [address] [place], [address] Absolute Neut 5.8 X10 3/uL Normal 2.0-7.7 [facility] Comment on above: Performed By: #### L 500.2500, L100.0100 ####[facility] [address] [place], [address] IG% 0.900 Normal 0.0-0.9 [facility] Comment on above: Result Comment: IG% - Immature Granulocytes (promyelocytes, myelocytes andmetamyelocytes) > 1% indicates that a LEFT SHIFT is Present. Performed By: #### L 500.2500, L100.0100 ####[facility] [address] [place], [address] Nucleated RBC (Bld) [#/Vol] 0 10*3/uL Normal 0-5 [facility] Comment on above: Performed By: #### L 500.2500, L100.0100 ####[facility] [address] [place], [address] RDW SD 60.8 fl High 35.1-43.9 [facility] Comment on above: Performed By: #### L 500.2500, L100.0100 ####[facility] [address] [place], [address] Carbon dioxide, total [Moles /volume] in Central venous bloodOrdered By: Rajat Suazo on 08-13-2024 CO2 [Moles/Vol] 29.9 mmol/L Normal 21.0-32.0 [facility] Comment on above: Performed By: #### L 500.2500, L100.0100 ####[facility] [address] [place], [address] Chloride assayOrdered By: Alphonso Suazo on 08-13-2024 Chloride [Moles/Vol] 98 mmol/L Normal 98-108 [facility] Comment on above: Performed By: #### L 500.2500, L100.0100 ####[facility] [address] [place], [address] Emergency Department Summary on 08-13-2024 Emergency Department Summary Normal [facility] Eosinophil percentageOrdered By: Rajat Suazo on 08-13-2024 Eosinophils/100 WBC (Bld) 2.2 % Normal 0-5 [facility] Comment on above: Performed By: #### L 500.2500, L100.0100 ####[facility] [address] [place], [address] Epithelial cells.squamous LM Ql (Urine sed)Ordered By: Rajat Suazo on 08-13-2024 Epithelial cells.squamous LM.HPF (Urine sed) [#/Area] 0 /[HPF] 0-5 [facility] Erythrocyte distribution wid th ratioOrdered By: Rajat Suazo on 08-13-2024 Erythrocyte distribution width (RBC) [Ratio] 17.5 % High 11.6-14.6 [facility] Comment on above: Performed By: #### L 500.2500, L100.0100 ####[facility] [address] [place], [address] Erythrocyte distribution wid th standard deviationOrdered By: Rajat Suazo on 08-13-2024 Erythrocyte distribution width (RBC) [Entitic vol] 60.8 fL High 35.1-43.9 [facility] Erythrocyte distribution width (RBC) [Ratio] 60.8 fl High 35.1-43.9 [facility] Estimation of creatinine jessica aranceOrdered By: Rajat Suazo on 08-13-2024 Estimated Creatinine Clearance Calc 26.62 ml/min Low 50-250 [facility] GFR/1.73 sq M.predicted rainer g non-blacks MDRD (S/P/Bld) [Vol rate/Area]Ordered By: Rajat Suazo on 08-13-2024 Estimated GFR (MDRD) Non-Af Amer 22 Low >60 [facility] Comment on above: mL/min/1.73m2 CKD-EP I Creatinine Equation (2020) Glomerular filtration rate ( GFR) estimation/1.73 sq m using serum, plasma, or whole bOrdered By: Rajat Suazo on 08-13-2024 GFR/1.73 sq M.predicted among non-blacks MDRD (S/P/Bld) [Vol rate/Area] 22 mL/min/{1.73_m2} Low >60 [facility] Comment on above: mL/min/1.73m2 CKD-EP I Creatinine Equation (2020) Result Comment: mL/m in/1.73m2 CKD-EPI Creatinine Equation (2020) Performed By: #### L 500.2500, L100.0100 ####[facility] [address] [facility] [place], [place], [address] Glucose Ql (U)Ordered By: Alphonso Suazo on 08-13-2024 Urine Glucose (UA) Normal mg/dl Normal [facility] Hemoglobin measurementOrdere d By: Rajat Suazo on 08-13-2024 Hemoglobin (Bld) [Mass/Vol] 10.8 g/dL Low 13.0-16.5 [facility] Comment on above: Performed By: #### L 500.2500, L100.0100 ####[facility] [address] [place], [place], [address] Immature granulocytes/100 WB C Auto (Bld)Ordered By: Rajat Suazo on 08-13-2024 Immature granulocytes/100 WBC (Bld) 0.900 % 0.0-0.9 [facility] Comment on above: IG% - Immature Granu locytes (promyelocytes, myelocytes and metamyelocytes) > 1% indicates that a LEFT SHIFT is Present. Ketones Test strip Ql (U)Ord ered By: Rajat Suazo on 08-13-2024 Ketones Ql (U) Negative Negative [facility] Lymphocytes Auto (Unsp spec) [#/Vol]Ordered By: Rajat Suazo on 08-13-2024 Lymphocytes (Bld) [#/Vol] 1.23 10*3/uL 0.83-4.51 [facility] MCV (mean corpuscular volume ) determinationOrdered By: Rajat Suazo on 08-13-2024 MCV (RBC) [Entitic vol] 95.1 fL High 80-94 [facility] Comment on above: Performed By: #### L 500.2500, L100.0100 ####[facility] [address] [place], [place], [address] Mean corpuscular hemoglobin (MCH) determinationOrdered By: Rajat Suazo on 08-13-2024 MCH (RBC) [Entitic mass] 29.1 pg Normal 27.0-32.0 [facility] Comment on above: Performed By: #### L 500.2500, L100.0100 ####[facility] [address] [place], [place], [id number] Mean corpuscular hemoglobin concentration (MCHC) determinationOrdered By: Rajat Suazo on 08-13-2024 MCHC (RBC) [Mass/Vol] 30.6 g/dL Low 32-36 [facility] Comment on above: Performed By: #### L 500.2500, L100.0100 ####[facility] [address] [place], [address] Mean platelet volume determi nationOrdered By: Rajat Suazo on 08-13-2024 Platelet mean volume (Bld) [Entitic vol] 10.1 fL Normal 6.2-12.0 [facility] Comment on above: Performed By: #### L 500.2500, L100.0100 ####[facility] [address] [place], [address] Microscopic analysis of urin e for red blood cells (RBC)Ordered By: Rajat Suazo on 08-13-2024 Microscopic analysis of urine for red blood cells (RBC) > 100 SEEN /hpf 0-5 [facility] Urine RBC > 100 SEEN /hpf 0-5 [facility] Monocyte percentageOrdered B y: Rajat Suazo on 08-13-2024 Monocytes/100 WBC (Bld) 10.1 % High 0-10 [facility] Comment on above: Performed By: #### L 500.2500, L100.0100 ####[facility] [address] [place], [address] Mucus LM Ql (Urine sed)Order ed By: Rajat Suazo on 08-13-2024 Mucus Ql (Urine sed) 0 SEEN /hpf [facility] Neutrophil percentageOrdered By: Rajat Suazo on 08-13-2024 Neutrophils/100 WBC (Bld) 71.0 % High 47-70 [facility] Comment on above: Performed By: #### L 500.2500, L100.0100 ####[facility] [address] [facility] [place], [address] Nitrite Test strip Ql (U)Ord ered By: Rajat Suazo on 08-13-2024 Nitrite Ql (U) Negative Negative [facility] Nucleated red blood cell per centageOrdered By: Rajat Suazo on 08-13-2024 Nucleated RBC/100 WBC (Bld) [Ratio] 0 % 0-5 [facility] Platelet countOrdered By: Alphonso Suazo on 08-13-2024 Platelets (Bld) [#/Vol] 258 10*3/uL Normal 150-450 [facility] Comment on above: Performed By: #### L 500.2500, L100.0100 ####[facility] [address] [place], [address] Potassium measurement (mass/ volume)Ordered By: Rajat Suazo on 08-13-2024 Potassium [Moles/Vol] 5.2 mmol/L High 3.3-5.1 [facility] Comment on above: Performed By: #### L 500.2500, L100.0100 ####[facility] [address] [place], [address] Potassium (Unsp spec) [Mass/Vol] 5.2 mmol/L High 3.3-5.1 [facility] Protein Test strip Ql (U)Ord ered By: Rajat Suazo on 08-13-2024 Protein Ql (U) 100 mg/dl High Negative [facility] Serum creatinine measurement (mass/volume)Ordered By: Rajat Suazo on 08-13-2024 Creatinine [Mass/Vol] 2.79 mg/dL High 0.70-1.20 [facility] Comment on above: Performed By: #### L 500.2500, L100.0100 ####[facility] [address] [place], [address] Serum glucose measurement (m ass/volume)Ordered By: Rajat Suazo on 08-13-2024 Glucose [Mass/Vol] 106 mg/dL High 70-99 [facility] Comment on above: Performed By: #### L 500.2500, L100.0100 ####[facility] [address] [place], [address] Serum or plasma calcium cris urement (mass/volume)Ordered By: Rajat Suazo on 08-13-2024 Calcium [Mass/Vol] 9.5 mg/dL Normal 7.6-11.0 [facility] Comment on above: Performed By: #### L 500.2500, L100.0100 ####[facility] [address] [place], [address] Serum or plasma urea nitroge n measurement (mass/volume)Ordered By: Rajat Suazo on 08-13-2024 Urea nitrogen [Mass/Vol] 18 mg/dL Normal 4-19 [facility] Comment on above: Performed By: #### L 500.2500, L100.0100 ####[facility] [address] [place], [address] Sodium levelOrdered By: Rajat Suazo on 08-13-2024 Sodium [Moles/Vol] 140 mmol/L Normal 133-145 [facility] Comment on above: Performed By: #### L 500.2500, L100.0100 ####[facility] [address] [place], [address] Squamous epithelial cells de tection in urine sediment by light microscopyOrdered By: Rajat Suazo on 08-13-2024 Epithelial cells.squamous LM Ql (Urine sed) 0-5 SEEN /hpf 0-5 [facility] Urinalysis, Completeon 08-13 BACTERIA 1+ /hpf Normal None Seen [facility] Comment on above: Order Comment: COLOR OF URINE MAY AFFECT DIPSTICK RESULTS.Microscopic field is filled. Other elements may beobscured.CATHETER SPECIMEN Performed By: #### L 400.0001 ####[facility] [address] [place], [address] EPI,SQUAMOUS 0-5 SEEN Normal 0-5 [facility] Comment on above: Order Comment: COLOR OF URINE MAY AFFECT DIPSTICK RESULTS.Microscopic field is filled. Other elements may beobscured.CATHETER SPECIMEN Performed By: #### L 400.0001 ####[facility] [address] [facility] [address] RBC > 100 SEEN Normal 0-5 [facility] Comment on above: Order Comment: COLOR OF URINE MAY AFFECT DIPSTICK RESULTS.Microscopic field is filled. Other elements may beobscured.CATHETER SPECIMEN Performed By: #### L 400.0001 ####[facility] [address] [facility] [address] WBC 50-100 SEEN Normal 0-5 [facility] Comment on above: Order Comment: COLOR OF URINE MAY AFFECT DIPSTICK RESULTS.Microscopic field is filled. Other elements may beobscured.CATHETER SPECIMEN Performed By: #### L 400.0001 ####[facility] [address] [place], [address] Mucus Ql (Urine sed) 0 SEEN Normal [facility] Comment on above: Order Comment: COLOR OF URINE MAY AFFECT DIPSTICK RESULTS.Microscopic field is filled. Other elements may beobscured.CATHETER SPECIMEN Performed By: #### L 400.0001 ####[facility] [address] [place], [address] Urine blood detectionOrdered By: Rajat Suazo on 08-13-2024 Urine Occult Blood 250 /ul High Negative [facility] Urine clarityOrdered By: Jay Suazo on 08-13-2024 Clarity (U) Cloudy Clear [facility] Urine color determinationOrd ered By: Rajat Suazo on 08-13-2024 Color (U) Red Yellow [facility] Urine cultureOrdered By: Jay Suazo on 08-13-2024 Bacteria identified Cx Nom (U) Pseudomonas aeruginosa Abnormal [facility] Urine glucose detectionOrder ed By: Rajat Suazo on 08-13-2024 Glucose Ql (U) Normal mg/dl Normal [facility] Urine leukocyte esterase det ection by dipstickOrdered By: Rajat Suazo on 08-13-2024 Leukocyte esterase Test strip Ql (U) 500 /ul High Negative [facility] Urine pHOrdered By: Rajat Jon ghzabrina on 08-13-2024 pH (U) 8.0 [pH] 5.0 - 8.0 [facility] Urine sediment bacteria coun t by microscopy (number/high power field)Ordered By: Rajat Suazo on 08-13-2024 Bacteria LM.HPF (Urine sed) [#/Area] 1 /[HPF] None Seen [facility] Urine specific gravity measu rementOrdered By: Rajat Suazo on 08-13-2024 Specific gravity (U) [Rel density] 1.010 1.002-1.030 [facility] Urine urobilinogen measureme ntOrdered By: Rajat Suazo on 08-13-2024 Urobilinogen Ql (U) Normal mg/dl Normal [facility] Urobilinogen Ql (U)Ordered B y: Rajat Suazo on 08-13-2024 Urine Urobilinogen Normal mg/dl Normal [facility] White blood cell (WBC) count Ordered By: Rajat Suazo on 08-13-2024 WBC (Bld) [#/Vol] 8.1 10*3/uL Normal 4.4-11.0 [facility] Comment on above: Performed By: #### L 500.2500, L100.0100 ####[facility] [address] [facility] [place], [place], [id number] White blood cell countOrdere d By: Rajat Suazo on 08-13-2024 Urine WBC 50-100 SEEN /hpf 0-5 [facility] White blood cell count 50-100 SEEN /hpf 0-5 [facility] Discharge Instructionon 02- Discharge Instruction Normal [facility] Respiratory Cultureon 2024 RESPC Mixed normal respiratory sunny. No Haemophilus, Streptococcus pneumoniae, beta-hemolytic Streptococcus or Staphylococcus aureus isolated. Normal [facility] Comment on above: Performed By: #### M 100.2400, M100.2000 ####[facility] [address] [place], [place], [id number] Absolute lymphocyte countOrd ered By: Elana Degroot on 07-15-2024 Lymphocytes Auto (Unsp spec) [#/Vol] 0.25 10*3/uL Low 0.83-4.51 [facility] Absolute neutrophil countOrd ered By: Elana Degroot on 07-15-2024 Neutrophils (Bld) [#/Vol] 3.3 10*3/uL 2.0-7.7 [facility] Albumin to globulin ratioOrd ered By: Elana Degroot on 07-15-2024 Albumin/Globulin [Mass ratio] 0.7 {ratio} Low 0.9-2.4 [facility] Automated lymphocyte count a s percentage of total leukocytesOrdered By: Elana Degroot on 07-15-2024 Lymphocytes/100 WBC Auto (Unsp spec) 6.8 % Low 19-41 [facility] Basophil percentageOrdered B y: Elana Degroot on 07-15-2024 Basophils/100 WBC (Bld) 0.3 % 0-1 [facility] Bilirubin, totalOrdered By: Elana Degroot on 07-15-2024 Bilirubin [Mass/Vol] 0.30 mg/dL 0.20-1.00 [facility] Comment on above: For patients on eltr ombopag therapy, use of Dimension [place] TBIL is not recommended. Blood urea nitrogen (BUN)/cr eatinine ratioOrdered By: Elana Degroot on 07-15-2024 Urea nitrogen/Creatinine [Mass ratio] 10.0 mg/mg 10-20 [facility] CBC W/Diff, Automatedon 02- Absolute Lymph 0.25 X10 3/uL Low 0.83-4.51 [facility] Comment on above: Performed By: #### L 100.0100, L501.2300, L501.5200, L500.4050 ####[facility] [address] [place], [address] Absolute Neut 3.3 X10 3/uL Normal 2.0-7.7 [facility] Comment on above: Performed By: #### L 100.0100, L501.2300, L501.5200, L500.4050 ####[facility] [address] [place], [address] Basophils/100 WBC (Bld) 0.3 % Normal 0-1 [facility] Comment on above: Performed By: #### L 100.0100, L501.2300, L501.5200, L500.4050 ####[facility] [address] [place], [address] Eosinophils/100 WBC (Bld) 0.0 % Normal 0-5 [facility] Comment on above: Performed By: #### L 100.0100, L501.2300, L501.5200, L500.4050 ####[facility] [address] [place], [address] Erythrocyte distribution width (RBC) [Ratio] 16.7 % High 11.6-14.6 [facility] Comment on above: Performed By: #### L 100.0100, L501.2300, L501.5200, L500.4050 ####[facility] [address] [place], [address] Hematocrit (Bld) [Volume fraction] 34.5 % Low 40-54 [facility] Comment on above: Performed By: #### L 100.0100, L501.2300, L501.5200, L500.4050 ####[facility] [address] [place], [address] Hemoglobin (Bld) [Mass/Vol] 10.8 g/dL Low 13.0-16.5 [facility] Comment on above: Performed By: #### L 100.0100, L501.2300, L501.5200, L500.4050 ####[facility] [address] [place], [address] IG% 0.500 Normal 0.0-0.9 [facility] Comment on above: Result Comment: IG% - Immature Granulocytes (promyelocytes, myelocytes andmetamyelocytes) > 1% indicates that a LEFT SHIFT is Present. Performed By: #### L 100.0100, L501.2300, L501.5200, L500.4050 ####[facility] [address] [place], [address] Lymphocytes/100 WBC (Bld) 6.8 % Low 19-41 [facility] Comment on above: Performed By: #### L 100.0100, L501.2300, L501.5200, L500.4050 ####[facility] [address] [place], [address] MCH (RBC) [Entitic mass] 29.2 pg Normal 27.0-32.0 [facility] Comment on above: Performed By: #### L 100.0100, L501.2300, L501.5200, L500.4050 ####[facility] [address] [place], [address] MCHC (RBC) [Mass/Vol] 31.3 g/dL Low 32-36 [facility] Comment on above: Performed By: #### L 100.0100, L501.2300, L501.5200, L500.4050 ####[facility] [address] [place], [address] MCV (RBC) [Entitic vol] 93.2 fL Normal 80-94 [facility] Comment on above: Performed By: #### L 100.0100, L501.2300, L501.5200, L500.4050 ####[facility] [address] [place], [address] Monocytes/100 WBC (Bld) 2.2 % Normal 0-10 [facility] Comment on above: Performed By: #### L 100.0100, L501.2300, L501.5200, L500.4050 ####[facility] [address] [place], [address] Neutrophils/100 WBC (Bld) 90.2 % High 47-70 [facility] Comment on above: Performed By: #### L 100.0100, L501.2300, L501.5200, L500.4050 ####[facility] [address] [place], [address] Nucleated RBC (Bld) [#/Vol] 0 10*3/uL Normal 0-5 [facility] Comment on above: Performed By: #### L 100.0100, L501.2300, L501.5200, L500.4050 ####[facility] [address] [place], [address] Platelet mean volume (Bld) [Entitic vol] 10.7 fL Normal 6.2-12.0 [facility] Comment on above: Performed By: #### L 100.0100, L501.2300, L501.5200, L500.4050 ####[facility] [address] [place], [address] Platelets (Bld) [#/Vol] 170 10*3/uL Normal 150-450 [facility] Comment on above: Performed By: #### L 100.0100, L501.2300, L501.5200, L500.4050 ####[facility] [address] [place], [address] RBC (Bld) [#/Vol] 3.70 10*6/uL Low 4.6-6.2 [facility] Comment on above: Performed By: #### L 100.0100, L501.2300, L501.5200, L500.4050 ####[facility] [address] [place], [address] RDW SD 57.4 fl High 35.1-43.9 [facility] Comment on above: Performed By: #### L 100.0100, L501.2300, L501.5200, L500.4050 ####[facility] [address] [place], [address] WBC (Bld) [#/Vol] 3.7 10*3/uL Low 4.4-11.0 [facility] Comment on above: Performed By: #### L 100.0100, L501.2300, L501.5200, L500.4050 ####[facility] [address] [place], [address] Carbon dioxide measurementOr dered By: Elana Degroot on 07-15-2024 CO2 [Moles/Vol] 23.0 mmol/L 21.0-32.0 [facility] Chloride measurementOrdered By: Elana Degroot on 07-15-2024 Chloride [Moles/Vol] 102 mmol/L 98-107 [facility] Comprehensive Metabolic Prof ilon 07-15-2024 Albumin [Mass/Vol] 2.9 g/dL Low 3.2-5.0 [facility] Comment on above: Performed By: #### L 100.0100, L501.2300, L501.5200, L500.4050 ####[facility] [address] [place], [address] Albumin/Globulin [Mass ratio] 0.7 {ratio} Low 0.9-2.4 [facility] Comment on above: Performed By: #### L 100.0100, L501.2300, L501.5200, L500.4050 ####[facility] [address] [place], [address] ALK P 80 U/L Normal 45-117 [facility] Comment on above: Performed By: #### L 100.0100, L501.2300, L501.5200, L500.4050 ####[facility] [address] [place], [address] ALT [Catalytic activity/Vol] 19 U/L Normal 16-61 [facility] Comment on above: Performed By: #### L 100.0100, L501.2300, L501.5200, L500.4050 ####[facility] [address] [place], [address] AST [Catalytic activity/Vol] 19 U/L Normal 15-37 [facility] Comment on above: Performed By: #### L 100.0100, L501.2300, L501.5200, L500.4050 ####[facility] [address] [place], [address] Bilirubin [Mass/Vol] 0.30 mg/dL Normal 0.20-1.00 [facility] Comment on above: Result Comment: For patients on eltrombopag therapy, use of Dimension [place] TBIL is not recommended. Performed By: #### L 100.0100, L501.2300, L501.5200, L500.4050 ####[facility] [address] [place], [address] BUN/CRE 10.0 RATIO Normal 10-20 [facility] Comment on above: Performed By: #### L 100.0100, L501.2300, L501.5200, L500.4050 ####[facility] [address] [place], [address] CA,Total 8.4 mg/dL Low 8.5-10.1 [facility] Comment on above: Performed By: #### L 100.0100, L501.2300, L501.5200, L500.4050 ####[facility] [address] [place], [address] Chloride [Moles/Vol] 102 mmol/L Normal 98-107 [facility] Comment on above: Performed By: #### L 100.0100, L501.2300, L501.5200, L500.4050 ####[facility] [address] [place], [address] CO2 [Moles/Vol] 23.0 mmol/L Normal 21.0-32.0 [facility] Comment on above: Performed By: #### L 100.0100, L501.2300, L501.5200, L500.4050 ####[facility] [address] [place], [address] Creatinine [Mass/Vol] 6.01 mg/dL High 0.70-1.30 [facility] Comment on above: Result Comment: The validity of the calculated GFR GFRAA in patients over70 years has not been determined. Clinical correlation isessential. Performed By: #### L 100.0100, L501.2300, L501.5200, L500.4050 ####[facility] [address] [place], [address] ECRCL 12.32 ml/min Normal [facility] Comment on above: Performed By: #### L 100.0100, L501.2300, L501.5200, L500.4050 ####[facility] [address] [place], [address] EST GFR - AA 12 mL/min Low >60 [facility] Comment on above: Result Comment: Afri can [place] GFR Calc Performed By: #### L 100.0100, L501.2300, L501.5200, L500.4050 ####[facility] [address] [place], [address] GAP 11 Normal 5-15 [facility] Comment on above: Performed By: #### L 100.0100, L501.2300, L501.5200, L500.4050 ####[facility] [address] [place], [address] GFR/1.73 sq M.predicted among non-blacks MDRD (S/P/Bld) [Vol rate/Area] 10 mL/min/{1.73_m2} Low >60 [facility] Comment on above: Result Comment: Non- GFR Calc Performed By: #### L 100.0100, L501.2300, L501.5200, L500.4050 ####[facility] [address] [place], [address] Globulin (S) [Mass/Vol] 4.3 g/dL High 2.2-4.2 [facility] Comment on above: Performed By: #### L 100.0100, L501.2300, L501.5200, L500.4050 ####[facility] [address] [place], [address] Glucose [Mass/Vol] 198 mg/dL High 74-106 [facility] Comment on above: Result Comment: Fast ing Glucose result greater than or equal to 126 mg/dLsuggests DIABETES MELLITUS per A.D.A. criteria. Performed By: #### L 100.0100, L501.2300, L501.5200, L500.4050 ####[facility] [address] [place], [address] Potassium [Moles/Vol] 4.4 mmol/L Normal 3.5-5.1 [facility] Comment on above: Performed By: #### L 100.0100, L501.2300, L501.5200, L500.4050 ####[facility] [address] [place], [address] Sodium [Moles/Vol] 135 mmol/L Low 136-145 [facility] Comment on above: Performed By: #### L 100.0100, L501.2300, L501.5200, L500.4050 ####[facility] [address] [place], [address] T PROT 7.2 g/dL Normal 6.4-8.2 [facility] Comment on above: Performed By: #### L 100.0100, L501.2300, L501.5200, L500.4050 ####[facility] [address] [place], [address] Urea nitrogen [Mass/Vol] 60 mg/dL High 7-18 [facility] Comment on above: Performed By: #### L 100.0100, L501.2300, L501.5200, L500.4050 ####[facility] [address] [place], [address] Consultation - Nephrologyon 07-15-2024 Consultation - Nephrology Normal [facility] Eosinophil percentageOrdered By: Elana Degroot on 07-15-2024 Eosinophils/100 WBC (Bld) 0.0 % 0-5 [facility] Erythrocyte distribution wid th ratioOrdered By: Elana Degroot on 07-15-2024 Erythrocyte distribution width (RBC) [Ratio] 16.7 % High 11.6-14.6 [facility] Erythrocyte distribution wid th standard deviationOrdered By: Elana Degroot on 07-15-2024 Erythrocyte distribution width (RBC) [Entitic vol] 57.4 fL High 35.1-43.9 [facility] Erythrocyte distribution width (RBC) [Ratio] 57.4 fl High 35.1-43.9 [facility] Estimated glomerular filtrat ion rate (GFR) AmericanOrdered By: Elana Degroot on 07-15-2024 Estimated GFR (MDRD) Amer 12 mL/min Low >60 [facility] Comment on above: GFR Calc Estimation of creatinine jessica aranceOrdered By: Elana Degroot on 07-15-2024 Estimated Creatinine Clearance Calc 12.32 ml/min [facility] Glomerular filtration rate ( GFR) estimationOrdered By: Elana Degroot on 07-15-2024 Estimated GFR (MDRD) Non-Af Amer 10 mL/min Low >60 [facility] Comment on above: Non- GFR Calc GFR/1.73 sq M.predicted among non-blacks MDRD (S/P/Bld) [Vol rate/Area] 10 mL/min/{1.73_m2} Low >60 [facility] Comment on above: Non- GFR Calc Glucose measurementOrdered B y: Elana Degroot on 07-15-2024 Glucose [Mass/Vol] 198 mg/dL High 74-106 [facility] Comment on above: Fasting Glucose resu lt greater than or equal to 126 mg/dL suggests DIABETES MELLITUS per A.D.A. criteria. Gram Stainon 07-15-2024 GS Normal [facility] Comment on above: Performed By: #### M 100.2400, M100.2000 ####[facility] [address] [place], [address] Hematocrit Auto (Bld) [Volum e fraction]Ordered By: Elana Degroot on 07-15-2024 Hematocrit (Bld) [Volume fraction] 34.5 % Low 40-54 [facility] Hemoglobin measurementOrdere d By: Elana Degroot on 07-15-2024 Hemoglobin (Bld) [Mass/Vol] 10.8 g/dL Low 13.0-16.5 [facility] Immature granulocytes/100 WB C Auto (Bld)Ordered By: Elana Degroot on 07-15-2024 Immature granulocytes/100 WBC (Bld) 0.500 % 0.0-0.9 [facility] Comment on above: IG% - Immature Granu locytes (promyelocytes, myelocytes and metamyelocytes) > 1% indicates that a LEFT SHIFT is Present. Laboratory - Chemistry and C hemistry - challengeOrdered By: Elana Degroot on 07-15-2024 AST [Catalytic activity/Vol] 19 U/L 15-37 [facility] Lymphocytes Auto (Unsp spec) [#/Vol]Ordered By: Elana Degroot on 07-15-2024 Lymphocytes (Bld) [#/Vol] 0.25 10*3/uL Low 0.83-4.51 [facility] Lymphocytes/100 WBC Auto (Un sp spec)Ordered By: Elana Degroot on 07-15-2024 Lymphocytes/100 WBC (Bld) 6.8 % Low 19-41 [facility] MCV (mean corpuscular volume ) determinationOrdered By: Elana Degroot on 07-15-2024 MCV (RBC) [Entitic vol] 93.2 fL 80-94 [facility] Magnesiumon 07-15-2024 Magnesium [Mass/Vol] 2.5 mg/dL Normal 1.6-2.6 [facility] Comment on above: Performed By: #### L 100.0100, L501.2300, L501.5200, L500.4050 ####[facility] [address] [place] [place], [address] Magnesium measurementOrdered By: Elana Degroot on 07-15-2024 Magnesium [Mass/Vol] 2.5 mg/dL 1.6-2.6 [facility] Mean corpuscular hemoglobin (MCH) determinationOrdered By: Elana Degroot on 07-15-2024 MCH (RBC) [Entitic mass] 29.2 pg 27.0-32.0 [facility] Mean corpuscular hemoglobin concentration (MCHC) determinationOrdered By: Elana Degroot on 07-15-2024 MCHC (RBC) [Mass/Vol] 31.3 g/dL Low 32-36 [facility] Mean platelet volume determi nationOrdered By: Elana Degroot on 07-15-2024 Platelet mean volume (Bld) [Entitic vol] 10.7 fL 6.2-12.0 [facility] Monocyte percentageOrdered B y: Elana Degroot on 07-15-2024 Monocytes/100 WBC (Bld) 2.2 % 0-10 [facility] Neutrophil percentageOrdered By: Elana Degroot on 07-15-2024 Neutrophils/100 WBC (Bld) 90.2 % High 47-70 [facility] Nucleated red blood cell per centageOrdered By: Elana Degroot on 07-15-2024 Nucleated RBC/100 WBC (Bld) [Ratio] 0 % 0-5 [facility] Phosphoruson 07-15-2024 Phosphate [Mass/Vol] 4.1 mg/dL Normal 2.5-4.9 [facility] Comment on above: Performed By: #### L 100.0100, L501.2300, L501.5200, L500.4050 ####[facility] [address] [place], [address] Phosphorus measurementOrdere d By: Elana Degroot on 07-15-2024 Phosphorus Level 4.1 mg/dL 2.5-4.9 [facility] Platelet countOrdered By: Sebastian Degroot on 07-15-2024 Platelets (Bld) [#/Vol] 170 10*3/uL 150-450 [facility] Potassium measurementOrdered By: Elana Degroot on 07-15-2024 Potassium [Moles/Vol] 4.4 mmol/L 3.5-5.1 [facility] RBC Auto (Bld) [#/Vol]Ordere d By: Elana Degroot on 07-15-2024 RBC (Bld) [#/Vol] 3.70 10*6/uL Low 4.6-6.2 [facility] Serum anion gap measurementO rdered By: Elana Degroot on 07-15-2024 Anion gap [Moles/Vol] 11 mmol/L 5-15 [facility] Serum globulin measurementOr dered By: Elana Degroot on 07-15-2024 Globulin (S) [Mass/Vol] 4.3 g/dL High 2.2-4.2 [facility] Serum or plasma alanine saldivar otransferase (ALT) measurementOrdered By: Elana Degroot on 07-15-2024 ALT [Catalytic activity/Vol] 19 U/L 16-61 [facility] Serum or plasma albumin cris urement (mass/volume)Ordered By: Elana Degroot on 07-15-2024 Albumin [Mass/Vol] 2.9 g/dL Low 3.2-5.0 [facility] Serum or plasma alkaline tina sphatase measurementOrdered By: Elana Degroot on 07-15-2024 ALP [Catalytic activity/Vol] 80 U/L 45-117 [facility] Serum or plasma calcium cris urement (mass/volume)Ordered By: Elana Degroot on 07-15-2024 Calcium [Mass/Vol] 8.4 mg/dL Low 8.5-10.1 [facility] Serum or plasma creatinine m easurement (mass/volume)Ordered By: Elana Degroot on 07-15-2024 Creatinine [Mass/Vol] 6.01 mg/dL High 0.70-1.30 [facility] Comment on above: The validity of the calculated GFR & GFRAA in patients over 70 years has not been determined. Clinical correlation is essential. Serum or plasma urea nitroge n measurement (mass/volume)Ordered By: Elana Degroot on 07-15-2024 Urea nitrogen [Mass/Vol] 60 mg/dL High 7-18 [facility] Sodium levelOrdered By: Felisa Degroot on 07-15-2024 Sodium [Moles/Vol] 135 mmol/L Low 136-145 [facility] Total proteinOrdered By: Bianca Degroot on 07-15-2024 Protein [Mass/Vol] 7.2 g/dL 6.4-8.2 [facility] White blood cell (WBC) count Ordered By: Elana Degroot on 07-15-2024 WBC (Bld) [#/Vol] 3.7 10*3/uL Low 4.4-11.0 [facility] 12 Lead EKGon 07-14-2024 12 Lead EKG Normal [facility] Basic Metabolic Profile (BMP )on 07-14-2024 BUN/CRE 8.6 RATIO Low 10-20 [facility] Comment on above: Performed By: #### L 100.0100, L500.2500 ####[facility] [address] [place], [address] CA,Total 8.9 mg/dL Normal 8.5-10.1 [facility] Comment on above: Performed By: #### L 100.0100, L500.2500 ####[facility] [address] [place], [address] Chloride [Moles/Vol] 100 mmol/L Normal 98-107 [facility] Comment on above: Performed By: #### L 100.0100, L500.2500 ####[facility] [address] [place], [address] CO2 [Moles/Vol] 28.0 mmol/L Normal 21.0-32.0 [facility] Comment on above: Performed By: #### L 100.0100, L500.2500 ####[facility] [address] [place], [address] Creatinine [Mass/Vol] 5.12 mg/dL High 0.70-1.30 [facility] Comment on above: Result Comment: The validity of the calculated GFR GFRAA in patients over70 years has not been determined. Clinical correlation isessential. Performed By: #### L 100.0100, L500.2500 ####[facility] [address] [place], [address] ECRCL 14.21 ml/min Normal [facility] Comment on above: Performed By: #### L 100.0100, L500.2500 ####[facility] [address] [place], [address] EST GFR - AA 14 mL/min Low >60 [facility] Comment on above: Result Comment: Afri can [place] GFR Calc Performed By: #### L 100.0100, L500.2500 ####[facility] [address] [place], [address] GAP 7 Normal 5-15 [facility] Comment on above: Performed By: #### L 100.0100, L500.2500 ####[facility] [address] [place], [address] GFR/1.73 sq M.predicted among non-blacks MDRD (S/P/Bld) [Vol rate/Area] 12 mL/min/{1.73_m2} Low >60 [facility] Comment on above: Result Comment: Non- GFR Calc Performed By: #### L 100.0100, L500.2500 ####[facility] [address] [place], [address] Glucose [Mass/Vol] 93 mg/dL Normal 74-106 [facility] Comment on above: Performed By: #### L 100.0100, L500.2500 ####[facility] [address] [place], [address] Potassium [Moles/Vol] 4.7 mmol/L Normal 3.5-5.1 [facility] Comment on above: Performed By: #### L 100.0100, L500.2500 ####[facility] [address] [place], [address] Sodium [Moles/Vol] 135 mmol/L Low 136-145 [facility] Comment on above: Performed By: #### L 100.0100, L500.2500 ####[facility] [address] [place], [address] Urea nitrogen [Mass/Vol] 44 mg/dL High 7-18 [facility] Comment on above: Performed By: #### L 100.0100, L500.2500 ####[facility] [address] [place], [address] CBC W/Diff, Automatedon 07-03 Absolute Lymph 0.85 X10 3/uL Normal 0.83-4.51 [facility] Comment on above: Performed By: #### L 100.0100, L500.2500 ####[facility] [address] [place], [address] Absolute Neut 4.7 X10 3/uL Normal 2.0-7.7 [facility] Comment on above: Performed By: #### L 100.0100, L500.2500 ####[facility] [address] [place], [address] Basophils/100 WBC (Bld) 0.9 % Normal 0-1 [facility] Comment on above: Performed By: #### L 100.0100, L500.2500 ####[facility] [address] [place], [address] Eosinophils/100 WBC (Bld) 1.2 % Normal 0-5 [facility] Comment on above: Performed By: #### L 100.0100, L500.2500 ####[facility] [address] [place], [address] Erythrocyte distribution width (RBC) [Ratio] 17.0 % High 11.6-14.6 [facility] Comment on above: Performed By: #### L 100.0100, L500.2500 ####[facility] [address] [place], [address] Hematocrit (Bld) [Volume fraction] 37.0 % Low 40-54 [facility] Comment on above: Performed By: #### L 100.0100, L500.2500 ####[facility] [address] [place], [address] Hemoglobin (Bld) [Mass/Vol] 11.3 g/dL Low 13.0-16.5 [facility] Comment on above: Performed By: #### L 100.0100, L500.2500 ####[facility] [address] [place], [address] IG% 0.600 Normal 0.0-0.9 [facility] Comment on above: Result Comment: IG% - Immature Granulocytes (promyelocytes, myelocytes andmetamyelocytes) > 1% indicates that a LEFT SHIFT is Present. Performed By: #### L 100.0100, L500.2500 ####[facility] [address] [place], [address] Lymphocytes/100 WBC (Bld) 13.1 % Low 19-41 [facility] Comment on above: Performed By: #### L 100.0100, L500.2500 ####[facility] [address] [place], [address] MCH (RBC) [Entitic mass] 28.9 pg Normal 27.0-32.0 [facility] Comment on above: Performed By: #### L 100.0100, L500.2500 ####[facility] [address] [place], [address] MCHC (RBC) [Mass/Vol] 30.5 g/dL Low 32-36 [facility] Comment on above: Performed By: #### L 100.0100, L500.2500 ####[facility] [address] [place], [address] MCV (RBC) [Entitic vol] 94.6 fL High 80-94 [facility] Comment on above: Performed By: #### L 100.0100, L500.2500 ####[facility] [address] [place], [address] Monocytes/100 WBC (Bld) 11.7 % High 0-10 [facility] Comment on above: Performed By: #### L 100.0100, L500.2500 ####[facility] [address] [place], [address] Neutrophils/100 WBC (Bld) 72.5 % High 47-70 [facility] Comment on above: Performed By: #### L 100.0100, L500.2500 ####[facility] [address] [place], [address] Nucleated RBC (Bld) [#/Vol] 0 10*3/uL Normal 0-5 [facility] Comment on above: Performed By: #### L 100.0100, L500.2500 ####[facility] [address] [place], [address] Platelet mean volume (Bld) [Entitic vol] 10.9 fL Normal 6.2-12.0 [facility] Comment on above: Performed By: #### L 100.0100, L500.2500 ####[facility] [address] [place], [address] Platelets (Bld) [#/Vol] 191 10*3/uL Normal 150-450 [facility] Comment on above: Performed By: #### L 100.0100, L500.2500 ####[facility] [address] [place], [address] RBC (Bld) [#/Vol] 3.91 10*6/uL Low 4.6-6.2 [facility] Comment on above: Performed By: #### L 100.0100, L500.2500 ####[facility] [address] [place], [address] RDW SD 58.8 fl High 35.1-43.9 [facility] Comment on above: Performed By: #### L 100.0100, L500.2500 ####[facility] [address] [place], [address] WBC (Bld) [#/Vol] 6.5 10*3/uL Normal 4.4-11.0 [facility] Comment on above: Performed By: #### L 100.0100, L500.2500 ####[facility] [address] [place], [address] Chest 1 View (Portable)on Chest 1 View (Portable) Normal [facility] Emergency Department Summary on 07-14-2024 Emergency Department Summary Normal [facility] Gram stainOrdered By: Olamide Degroot on 07-14-2024 Microscopic observation Gram stain Nom (Unsp spec) [facility] H AND P Exam - Hospitaliston 07-14-2024 H&P Exam - Hospitalist Normal [facility] Influenza virus A and B and SARS-CoV-2 (COVID-19) and Respiratory syncytial virus RNAOrdered By: Quinn Waddell on 07-14-2024 SARS-CoV-2 (COVID-19) RNA JACK+probe Ql (Unsp spec) Influenzae A Abnormal [facility] M100.678on 07-14-2024 M100.678 Normal [facility] Comment on above: Performed By: #### M 100.678 ####[facility] [address] [place], [address] Microbial respiratory cultur eOrdered By: Elana Degroot on 07-14-2024 Microorganism identified Cx Nom (Unsp spec) or Staphylococcus aureus isolated. [facility] Microorganism identified Cx Nom (Unsp spec)Ordered By: Elana Degroot on 07-14-2024 Respiratory Culture or Staphylococcus aureus isolated. [facility] Urine Cultureon 07-02-2024 URC Normal [facility] Comment on above: Performed By: #### M 100.2200, L400.0001, M100.637, M100.6796 ####[facility] [address] [place], [address] Basic Metabolic Profile (BMP )on 07-01-2024 BUN/CRE 7.6 RATIO Low 10-20 [facility] Comment on above: Performed By: #### L 500.2500, L100.0500 ####[facility] [address] [place], [address] CA,Total 8.4 mg/dL Low 8.5-10.1 [facility] Comment on above: Performed By: #### L 500.2500, L100.0500 ####[facility] [address] [place], [address] Chloride [Moles/Vol] 105 mmol/L Normal 98-107 [facility] Comment on above: Performed By: #### L 500.2500, L100.0500 ####[facility] [address] [place], [address] CO2 [Moles/Vol] 27.0 mmol/L Normal 21.0-32.0 [facility] Comment on above: Performed By: #### L 500.2500, L100.0500 ####[facility] [address] [place], [address] Creatinine [Mass/Vol] 4.48 mg/dL High 0.70-1.30 [facility] Comment on above: Result Comment: The validity of the calculated GFR GFRAA in patients over70 years has not been determined. Clinical correlation isessential. Performed By: #### L 500.2500, L100.0500 ####[facility] [address] [place], [address] ECRCL 16.45 ml/min Normal [facility] Comment on above: Performed By: #### L 500.2500, L100.0500 ####[facility] [address] [place], [address] EST GFR - AA 16 mL/min Low >60 [facility] Comment on above: Result Comment: Afri can [place] GFR Calc Performed By: #### L 500.2500, L100.0500 ####[facility] [address] [place], [address] GAP 7 Normal 5-15 [facility] Comment on above: Performed By: #### L 500.2500, L100.0500 ####[facility] [address] [place], [address] GFR/1.73 sq M.predicted among non-blacks MDRD (S/P/Bld) [Vol rate/Area] 14 mL/min/{1.73_m2} Low >60 [facility] Comment on above: Result Comment: Non- GFR Calc Performed By: #### L 500.2500, L100.0500 ####[facility] [address] [place], [address] Glucose [Mass/Vol] 104 mg/dL Normal 74-106 [facility] Comment on above: Result Comment: Fast ing Glucose result from 100 to 125 mg/dLsuggests IMPAIRED HOMEOSTASIS per A.D.A. criteria. Performed By: #### L 500.2500, L100.0500 ####[facility] [address] [place], [address] Potassium [Moles/Vol] 3.9 mmol/L Normal 3.5-5.1 [facility] Comment on above: Performed By: #### L 500.2500, L100.0500 ####[facility] [address] [place], [address] Sodium [Moles/Vol] 139 mmol/L Normal 136-145 [facility] Comment on above: Performed By: #### L 500.2500, L100.0500 ####[facility] [address] [place], [address] Urea nitrogen [Mass/Vol] 34 mg/dL High 7-18 [facility] Comment on above: Performed By: #### L 500.2500, L100.0500 ####[facility] [address] [place], [address] Blood urea nitrogen (BUN)/cr eatinine ratioOrdered By: Elana Degroot on 07-01-2024 Urea nitrogen/Creatinine [Mass ratio] 7.6 mg/mg Low 10-20 [facility] CBC-Complete Blood Cnt No Di ffon 07-01-2024 Erythrocyte distribution width (RBC) [Ratio] 15.7 % High 11.6-14.6 [facility] Comment on above: Performed By: #### L 500.2500, L100.0500 ####[facility] [address] [place], [address] Hematocrit (Bld) [Volume fraction] 34.8 % Low 40-54 [facility] Comment on above: Performed By: #### L 500.2500, L100.0500 ####[facility] [address] [place], [address] Hemoglobin (Bld) [Mass/Vol] 10.3 g/dL Low 13.0-16.5 [facility] Comment on above: Performed By: #### L 500.2500, L100.0500 ####[facility] [address] [place], [address] MCH (RBC) [Entitic mass] 28.1 pg Normal 27.0-32.0 [facility] Comment on above: Performed By: #### L 500.2500, L100.0500 ####[facility] [address] [place], [address] MCHC (RBC) [Mass/Vol] 29.6 g/dL Low 32-36 [facility] Comment on above: Performed By: #### L 500.2500, L100.0500 ####[facility] [address] [place], [address] MCV (RBC) [Entitic vol] 95.1 fL High 80-94 [facility] Comment on above: Performed By: #### L 500.2500, L100.0500 ####[facility] [address] [place], [address] Platelet mean volume (Bld) [Entitic vol] 10.8 fL Normal 6.2-12.0 [facility] Comment on above: Performed By: #### L 500.2500, L100.0500 ####[facility] [address] [place], [address] Platelets (Bld) [#/Vol] 301 10*3/uL Normal 150-450 [facility] Comment on above: Performed By: #### L 500.2500, L100.0500 ####[facility] [address] [place], [address] RBC (Bld) [#/Vol] 3.66 10*6/uL Low 4.6-6.2 [facility] Comment on above: Performed By: #### L 500.2500, L100.0500 ####[facility] [address] [place], [address] RDW SD 54.9 fl High 35.1-43.9 [facility] Comment on above: Performed By: #### L 500.2500, L100.0500 ####[facility] [address] [place], [address] WBC (Bld) [#/Vol] 5.1 10*3/uL Normal 4.4-11.0 [facility] Comment on above: Performed By: #### L 500.2500, L100.0500 ####[facility] [address] [place], [address] Carbon dioxide measurementOr dered By: Elana Degroot on 07-01-2024 CO2 [Moles/Vol] 27.0 mmol/L 21.0-32.0 [facility] Chloride measurementOrdered By: Elana Degroot on 07-01-2024 Chloride [Moles/Vol] 105 mmol/L 98-107 [facility] Erythrocyte distribution wid th ratioOrdered By: Elana Degroot on 07-01-2024 Erythrocyte distribution width (RBC) [Ratio] 15.7 % High 11.6-14.6 [facility] Erythrocyte distribution wid th standard deviationOrdered By: Elana Degroot on 07-01-2024 Erythrocyte distribution width (RBC) [Entitic vol] 54.9 fL High 35.1-43.9 [facility] Estimated glomerular filtrat ion rate (GFR) AmericanOrdered By: Elana Degroot on 07-01-2024 Estimated GFR (MDRD) Amer 16 mL/min Low >60 [facility] Comment on above: GFR Calc Estimation of creatinine jessica aranceOrdered By: Elana Degroot on 07-01-2024 Estimated Creatinine Clearance Calc 16.45 ml/min [facility] Glomerular filtration rate ( GFR) estimationOrdered By: Elana Degroot on 07-01-2024 Estimated GFR (MDRD) Non-Af Amer 14 mL/min Low >60 [facility] Comment on above: Non- GFR Calc Glucose measurementOrdered B y: Elana Degroot on 07-01-2024 Glucose [Mass/Vol] 104 mg/dL 74-106 [facility] Comment on above: Fasting Glucose resu lt from 100 to 125 mg/dL suggests IMPAIRED HOMEOSTASIS per A.D.A. criteria. Hematocrit Auto (Bld) [Volum e fraction]Ordered By: Elana Degroot on 07-01-2024 Hematocrit (Bld) [Volume fraction] 34.8 % Low 40-54 [facility] Hemoglobin measurementOrdere d By: Elana Degroot on 07-01-2024 Hemoglobin (Bld) [Mass/Vol] 10.3 g/dL Low 13.0-16.5 [facility] MCV (mean corpuscular volume ) determinationOrdered By: Elana Degroot on 07-01-2024 MCV (RBC) [Entitic vol] 95.1 fL High 80-94 [facility] Mean corpuscular hemoglobin (MCH) determinationOrdered By: Elana Degroot on 07-01-2024 MCH (RBC) [Entitic mass] 28.1 pg 27.0-32.0 [facility] Mean corpuscular hemoglobin concentration (MCHC) determinationOrdered By: Elana Degroot on 07-01-2024 MCHC (RBC) [Mass/Vol] 29.6 g/dL Low 32-36 [facility] Mean platelet volume determi nationOrdered By: Elana Degroot on 07-01-2024 Platelet mean volume (Bld) [Entitic vol] 10.8 fL 6.2-12.0 [facility] Platelet countOrdered By: Sebastian Degroot on 07-01-2024 Platelets (Bld) [#/Vol] 301 10*3/uL 150-450 [facility] Potassium measurementOrdered By: Elana Degroot on 07-01-2024 Potassium [Moles/Vol] 3.9 mmol/L 3.5-5.1 [facility] RBC Auto (Bld) [#/Vol]Ordere d By: Elana Degroot on 07-01-2024 RBC (Bld) [#/Vol] 3.66 10*6/uL Low 4.6-6.2 [facility] Serum anion gap measurementO rdered By: Elana Degroot on 07-01-2024 Anion gap [Moles/Vol] 7 mmol/L 5-15 [facility] Serum or plasma calcium cris urement (mass/volume)Ordered By: Elana Degroot on 07-01-2024 Calcium [Mass/Vol] 8.4 mg/dL Low 8.5-10.1 [facility] Serum or plasma creatinine m easurement (mass/volume)Ordered By: Elana Degroot on 07-01-2024 Creatinine [Mass/Vol] 4.48 mg/dL High 0.70-1.30 [facility] Comment on above: The validity of the calculated GFR & GFRAA in patients over 70 years has not been determined. Clinical correlation is essential. Serum or plasma urea nitroge n measurement (mass/volume)Ordered By: Elana Degroot on 07-01-2024 Urea nitrogen [Mass/Vol] 34 mg/dL High 7-18 [facility] Sodium levelOrdered By: Felisa Degroot on 07-01-2024 Sodium [Moles/Vol] 139 mmol/L 136-145 [facility] White blood cell (WBC) count Ordered By: Elana Degroot on 07-01-2024 WBC (Bld) [#/Vol] 5.1 10*3/uL 4.4-11.0 [facility] Basic Metabolic Profile (BMP )on 06-30-2024 BUN/CRE 8.7 RATIO Low 10-20 [facility] Comment on above: Performed By: #### L 500.2500, L100.0500 ####[facility] [address] [place], [address] CA,Total 8.4 mg/dL Low 8.5-10.1 [facility] Comment on above: Performed By: #### L 500.2500, L100.0500 ####[facility] [address] [place], [address] Chloride [Moles/Vol] 103 mmol/L Normal 98-107 [facility] Comment on above: Performed By: #### L 500.2500, L100.0500 ####[facility] [address] [place], [address] CO2 [Moles/Vol] 25.0 mmol/L Normal 21.0-32.0 [facility] Comment on above: Performed By: #### L 500.2500, L100.0500 ####[facility] [address] [place], [address] Creatinine [Mass/Vol] 5.88 mg/dL High 0.70-1.30 [facility] Comment on above: Result Comment: The validity of the calculated GFR GFRAA in patients over70 years has not been determined. Clinical correlation isessential. Performed By: #### L 500.2500, L100.0500 ####[facility] [address] [place], [address] ECRCL 12.44 ml/min Normal [facility] Comment on above: Performed By: #### L 500.2500, L100.0500 ####[facility] [address] [place], [address] EST GFR - AA 12 mL/min Low >60 [facility] Comment on above: Result Comment: Afri can [place] GFR Calc Performed By: #### L 500.2500, L100.0500 ####[facility] [address] [place], [address] GAP 10 Normal 5-15 [facility] Comment on above: Performed By: #### L 500.2500, L100.0500 ####[facility] [address] [place], [address] GFR/1.73 sq M.predicted among non-blacks MDRD (S/P/Bld) [Vol rate/Area] 10 mL/min/{1.73_m2} Low >60 [facility] Comment on above: Result Comment: Non- GFR Calc Performed By: #### L 500.2500, L100.0500 ####[facility] [address] [place], [address] Glucose [Mass/Vol] 87 mg/dL Normal 74-106 [facility] Comment on above: Performed By: #### L 500.2500, L100.0500 ####[facility] [address] [place], [address] Potassium [Moles/Vol] 3.6 mmol/L Normal 3.5-5.1 [facility] Comment on above: Performed By: #### L 500.2500, L100.0500 ####[facility] [address] [place], [address] Sodium [Moles/Vol] 138 mmol/L Normal 136-145 [facility] Comment on above: Performed By: #### L 500.2500, L100.0500 ####[facility] [address] [place], [address] Urea nitrogen [Mass/Vol] 51 mg/dL High 7-18 [facility] Comment on above: Performed By: #### L 500.2500, L100.0500 ####[facility] [address] [place], [address] CBC-Complete Blood Cnt No Di ffon 06-30-2024 Erythrocyte distribution width (RBC) [Ratio] 15.5 % High 11.6-14.6 [facility] Comment on above: Performed By: #### L 500.2500, L100.0500 ####[facility] [address] [place], [address] Hematocrit (Bld) [Volume fraction] 34.8 % Low 40-54 [facility] Comment on above: Performed By: #### L 500.2500, L100.0500 ####[facility] [address] [place], [address] Hemoglobin (Bld) [Mass/Vol] 10.6 g/dL Low 13.0-16.5 [facility] Comment on above: Performed By: #### L 500.2500, L100.0500 ####[facility] [address] [place], [address] MCH (RBC) [Entitic mass] 28.6 pg Normal 27.0-32.0 [facility] Comment on above: Performed By: #### L 500.2500, L100.0500 ####[facility] [address] [place], [address] MCHC (RBC) [Mass/Vol] 30.5 g/dL Low 32-36 [facility] Comment on above: Performed By: #### L 500.2500, L100.0500 ####[facility] [address] [place], [address] MCV (RBC) [Entitic vol] 94.1 fL High 80-94 [facility] Comment on above: Performed By: #### L 500.2500, L100.0500 ####[facility] [address] [place], [address] Platelet mean volume (Bld) [Entitic vol] 10.5 fL Normal 6.2-12.0 [facility] Comment on above: Performed By: #### L 500.2500, L100.0500 ####[facility] [address] [place], [address] Platelets (Bld) [#/Vol] 280 10*3/uL Normal 150-450 [facility] Comment on above: Performed By: #### L 500.2500, L100.0500 ####[facility] [address] [place], [address] RBC (Bld) [#/Vol] 3.70 10*6/uL Low 4.6-6.2 [facility] Comment on above: Performed By: #### L 500.2500, L100.0500 ####[facility] [address] [place], [address] RDW SD 53.6 fl High 35.1-43.9 [facility] Comment on above: Performed By: #### L 500.2500, L100.0500 ####[facility] [address] [place], [address] WBC (Bld) [#/Vol] 4.6 10*3/uL Normal 4.4-11.0 [facility] Comment on above: Performed By: #### L 500.2500, L100.0500 ####[facility] [address] [place], [address] Abdomen/Pel W ORAL Cont Only on 06-29-2024 Abdomen/Pel W ORAL Cont Only Normal [facility] Absolute neutrophil countOrd ered By: Pranay Beck on 06-29-2024 Neutrophils (Bld) [#/Vol] 3.1 10*3/uL 2.0-7.7 [facility] Basic Metabolic Profile (BMP )on 06-29-2024 BUN/CRE 9.1 RATIO Low 10-20 [facility] Comment on above: Performed By: #### L 100.0100, L500.2500 ####[facility] [address] [place], [address] CA,Total 8.7 mg/dL Normal 8.5-10.1 [facility] Comment on above: Performed By: #### L 100.0100, L500.2500 ####[facility] [address] [place], [address] Chloride [Moles/Vol] 103 mmol/L Normal 98-107 [facility] Comment on above: Performed By: #### L 100.0100, L500.2500 ####[facility] [address] [place], [address] CO2 [Moles/Vol] 25.0 mmol/L Normal 21.0-32.0 [facility] Comment on above: Performed By: #### L 100.0100, L500.2500 ####[facility] [address] [place], [address] Creatinine [Mass/Vol] 7.40 mg/dL High 0.70-1.30 [facility] Comment on above: Result Comment: The validity of the calculated GFR GFRAA in patients over70 years has not been determined. Clinical correlation isessential. Performed By: #### L 100.0100, L500.2500 ####[facility] [address] [place], [address] ECRCL 9.91 ml/min Normal [facility] Comment on above: Performed By: #### L 100.0100, L500.2500 ####[facility] [address] [place], [address] EST GFR - AA 9 mL/min Low >60 [facility] Comment on above: Result Comment: Afri can [place] GFR Calc Performed By: #### L 100.0100, L500.2500 ####[facility] [address] [place], [address] GAP 10 Normal 5-15 [facility] Comment on above: Performed By: #### L 100.0100, L500.2500 ####[facility] [address] [place], [address] GFR/1.73 sq M.predicted among non-blacks MDRD (S/P/Bld) [Vol rate/Area] 8 mL/min/{1.73_m2} Low >60 [facility] Comment on above: Result Comment: Non- GFR Calc Performed By: #### L 100.0100, L500.2500 ####[facility] [address] [place], [address] Glucose [Mass/Vol] 82 mg/dL Normal 74-106 [facility] Comment on above: Performed By: #### L 100.0100, L500.2500 ####[facility] [address] [place], [address] Potassium [Moles/Vol] 4.0 mmol/L Normal 3.5-5.1 [facility] Comment on above: Performed By: #### L 100.0100, L500.2500 ####[facility] [address] [place], [address] Sodium [Moles/Vol] 138 mmol/L Normal 136-145 [facility] Comment on above: Performed By: #### L 100.0100, L500.2500 ####[facility] [address] [place], [address] Urea nitrogen [Mass/Vol] 67 mg/dL High 7-18 [facility] Comment on above: Performed By: #### L 100.0100, L500.2500 ####[facility] [address] [place], [address] Basophil percentageOrdered B y: Pranay Beck on 06-29-2024 Basophils/100 WBC (Bld) 0.6 % 0-1 [facility] CBC W/Diff, Automatedon 06-03 Absolute Lymph 0.90 X10 3/uL Normal 0.83-4.51 [facility] Comment on above: Performed By: #### L 100.0100, L500.2500 ####[facility] [address] [place], [address] Absolute Neut 3.1 X10 3/uL Normal 2.0-7.7 [facility] Comment on above: Performed By: #### L 100.0100, L500.2500 ####[facility] [address] [place], [address] Basophils/100 WBC (Bld) 0.6 % Normal 0-1 [facility] Comment on above: Performed By: #### L 100.0100, L500.2500 ####[facility] [address] [place], [address] Eosinophils/100 WBC (Bld) 4.2 % Normal 0-5 [facility] Comment on above: Performed By: #### L 100.0100, L500.2500 ####[facility] [address] [place], [address] Erythrocyte distribution width (RBC) [Ratio] 15.9 % High 11.6-14.6 [facility] Comment on above: Performed By: #### L 100.0100, L500.2500 ####[facility] [address] [place], [address] Hematocrit (Bld) [Volume fraction] 37.7 % Low 40-54 [facility] Comment on above: Performed By: #### L 100.0100, L500.2500 ####[facility] [address] [place], [address] Hemoglobin (Bld) [Mass/Vol] 11.3 g/dL Low 13.0-16.5 [facility] Comment on above: Performed By: #### L 100.0100, L500.2500 ####[facility] [address] [place], [address] IG% 0.600 Normal 0.0-0.9 [facility] Comment on above: Result Comment: IG% - Immature Granulocytes (promyelocytes, myelocytes andmetamyelocytes) > 1% indicates that a LEFT SHIFT is Present. Performed By: #### L 100.0100, L500.2500 ####[facility] [address] [place], [address] Lymphocytes/100 WBC (Bld) 18.7 % Low 19-41 [facility] Comment on above: Performed By: #### L 100.0100, L500.2500 ####[facility] [address] [place], [address] MCH (RBC) [Entitic mass] 28.2 pg Normal 27.0-32.0 [facility] Comment on above: Performed By: #### L 100.0100, L500.2500 ####[facility] [address] [place], [address] MCHC (RBC) [Mass/Vol] 30.0 g/dL Low 32-36 [facility] Comment on above: Performed By: #### L 100.0100, L500.2500 ####[facility] [address] [place], [address] MCV (RBC) [Entitic vol] 94.0 fL Normal 80-94 [facility] Comment on above: Performed By: #### L 100.0100, L500.2500 ####[facility] [address] [place], [address] Monocytes/100 WBC (Bld) 11.0 % High 0-10 [facility] Comment on above: Performed By: #### L 100.0100, L500.2500 ####[facility] [address] [place], [address] Neutrophils/100 WBC (Bld) 64.9 % Normal 47-70 [facility] Comment on above: Performed By: #### L 100.0100, L500.2500 ####[facility] [address] [place], [address] Nucleated RBC (Bld) [#/Vol] 0 10*3/uL Normal 0-5 [facility] Comment on above: Performed By: #### L 100.0100, L500.2500 ####[facility] [address] [place], [address] Platelet mean volume (Bld) [Entitic vol] 10.9 fL Normal 6.2-12.0 [facility] Comment on above: Performed By: #### L 100.0100, L500.2500 ####[facility] [address] [place], [address] Platelets (Bld) [#/Vol] 258 10*3/uL Normal 150-450 [facility] Comment on above: Performed By: #### L 100.0100, L500.2500 ####[facility] [address] [place], [address] RBC (Bld) [#/Vol] 4.01 10*6/uL Low 4.6-6.2 [facility] Comment on above: Performed By: #### L 100.0100, L500.2500 ####[facility] [address] [place], [address] RDW SD 55.3 fl High 35.1-43.9 [facility] Comment on above: Performed By: #### L 100.0100, L500.2500 ####[facility] [address] [place], [address] WBC (Bld) [#/Vol] 4.8 10*3/uL Normal 4.4-11.0 [facility] Comment on above: Performed By: #### L 100.0100, L500.2500 ####[facility] [address] [place], [address] Consultation - Nephrologyon 06-29-2024 Consultation - Nephrology Normal [facility] Eosinophil percentageOrdered By: Pranay Beck on 06-29-2024 Eosinophils/100 WBC (Bld) 4.2 % 0-5 [facility] Immature granulocytes/100 WB C Auto (Bld)Ordered By: Pranay Beck on 06-29-2024 Immature granulocytes/100 WBC (Bld) 0.600 % 0.0-0.9 [facility] Comment on above: IG% - Immature Granu locytes (promyelocytes, myelocytes and metamyelocytes) > 1% indicates that a LEFT SHIFT is Present. Lymphocytes Auto (Unsp spec) [#/Vol]Ordered By: Pranay Beck on 06-29-2024 Lymphocytes (Bld) [#/Vol] 0.90 10*3/uL 0.83-4.51 [facility] Lymphocytes/100 WBC Auto (Un sp spec)Ordered By: Pranay Beck on 06-29-2024 Lymphocytes/100 WBC (Bld) 18.7 % Low 19-41 [facility] Monocyte percentageOrdered B y: Pranay Beck on 06-29-2024 Monocytes/100 WBC (Bld) 11.0 % High 0-10 [facility] Neutrophil percentageOrdered By: Pranay Beck on 06-29-2024 Neutrophils/100 WBC (Bld) 64.9 % 47-70 [facility] Nucleated red blood cell per centageOrdered By: Pranay Beck on 06-29-2024 Nucleated RBC/100 WBC (Bld) [Ratio] 0 % 0-5 [facility] Albumin to globulin ratioOrd ered By: Koffi Coffman on 06-28-2024 Albumin/Globulin [Mass ratio] 0.6 {ratio} Low 0.9-2.4 [facility] Bilirubin Test strip Ql (U)O rdered By: Koffi Coffman on 06-28-2024 Bilirubin Ql (U) Negative Negative [facility] Bilirubin, totalOrdered By: Koffi Coffman on 06-28-2024 Bilirubin [Mass/Vol] 0.80 mg/dL 0.20-1.00 [facility] Comment on above: For patients on eltr ombopag therapy, use of Dimension [place] TBIL is not recommended. C. difficile DNA JACK+probe Q l (Unsp spec)Ordered By: Koffi Coffman on 06-28-2024 Clostridioides difficile (PCR) [facility] CBC W/Diff, Automatedon 06-03 Absolute Lymph 0.74 X10 3/uL Low 0.83-4.51 [facility] Comment on above: Performed By: #### L 500.4050, L100.0100 ####[facility] [address] [place], [address] Absolute Neut 6.0 X10 3/uL Normal 2.0-7.7 [facility] Comment on above: Performed By: #### L 500.4050, L100.0100 ####[facility] [address] [place], [address] Basophils/100 WBC (Bld) 0.4 % Normal 0-1 [facility] Comment on above: Performed By: #### L 500.4050, L100.0100 ####[facility] [address] [place], [address] Eosinophils/100 WBC (Bld) 1.3 % Normal 0-5 [facility] Comment on above: Performed By: #### L 500.4050, L100.0100 ####[facility] [address] [place], [address] Erythrocyte distribution width (RBC) [Ratio] 16.0 % High 11.6-14.6 [facility] Comment on above: Performed By: #### L 500.4050, L100.0100 ####[facility] [address] [place], [address] Hematocrit (Bld) [Volume fraction] 39.1 % Low 40-54 [facility] Comment on above: Performed By: #### L 500.4050, L100.0100 ####[facility] [address] [place], [address] Hemoglobin (Bld) [Mass/Vol] 12.4 g/dL Low 13.0-16.5 [facility] Comment on above: Performed By: #### L 500.4050, L100.0100 ####[facility] [address] [place], [address] IG% 0.700 Normal 0.0-0.9 [facility] Comment on above: Result Comment: IG% - Immature Granulocytes (promyelocytes, myelocytes andmetamyelocytes) > 1% indicates that a LEFT SHIFT is Present. Performed By: #### L 500.4050, L100.0100 ####[facility] [address] [place], [address] Lymphocytes/100 WBC (Bld) 9.7 % Low 19-41 [facility] Comment on above: Performed By: #### L 500.4050, L100.0100 ####[facility] [address] [place], [address] MCH (RBC) [Entitic mass] 29.1 pg Normal 27.0-32.0 [facility] Comment on above: Performed By: #### L 500.4050, L100.0100 ####[facility] [address] [place], [address] MCHC (RBC) [Mass/Vol] 31.7 g/dL Low 32-36 [facility] Comment on above: Performed By: #### L 500.4050, L100.0100 ####[facility] [address] [place], [address] MCV (RBC) [Entitic vol] 91.8 fL Normal 80-94 [facility] Comment on above: Performed By: #### L 500.4050, L100.0100 ####[facility] [address] [place], [address] Monocytes/100 WBC (Bld) 8.8 % Normal 0-10 [facility] Comment on above: Performed By: #### L 500.4050, L100.0100 ####[facility] [address] [place], [address] Neutrophils/100 WBC (Bld) 79.1 % High 47-70 [facility] Comment on above: Performed By: #### L 500.4050, L100.0100 ####[facility] [address] [place], [address] Nucleated RBC (Bld) [#/Vol] 0 10*3/uL Normal 0-5 [facility] Comment on above: Performed By: #### L 500.4050, L100.0100 ####[facility] [address] [place], [address] Platelet mean volume (Bld) [Entitic vol] 10.6 fL Normal 6.2-12.0 [facility] Comment on above: Performed By: #### L 500.4050, L100.0100 ####[facility] [address] [place], [address] Platelets (Bld) [#/Vol] 259 10*3/uL Normal 150-450 [facility] Comment on above: Performed By: #### L 500.4050, L100.0100 ####[facility] [address] [place], [address] RBC (Bld) [#/Vol] 4.26 10*6/uL Low 4.6-6.2 [facility] Comment on above: Performed By: #### L 500.4050, L100.0100 ####[facility] [address] [place], [address] RDW SD 54.0 fl High 35.1-43.9 [facility] Comment on above: Performed By: #### L 500.4050, L100.0100 ####[facility] [address] [place], [address] WBC (Bld) [#/Vol] 7.6 10*3/uL Normal 4.4-11.0 [facility] Comment on above: Performed By: #### L 500.4050, L100.0100 ####[facility] [address] [place], [address] CDIFF (PCR)on 06-28-2024 CDIFF Pending 027 027 NAP1-B1 Presumptive Negative *for epidemiolologic???use C. Diff PCR Negative- No toxigenic C. Diff Detected Normal [facility] Comment on above: Performed By: #### M 100.2200, L400.0001, M100.637, M100.6796 ####[facility] [address] [place], [address] Comprehensive Metabolic Prof ilon 06-28-2024 Albumin [Mass/Vol] 2.7 g/dL Low 3.2-5.0 [facility] Comment on above: Performed By: #### L 500.4050, L100.0100 ####[facility] [address] [place], [address] Albumin/Globulin [Mass ratio] 0.6 {ratio} Low 0.9-2.4 [facility] Comment on above: Performed By: #### L 500.4050, L100.0100 ####[facility] [address] [place], [address] ALK P 92 U/L Normal 45-117 [facility] Comment on above: Performed By: #### L 500.4050, L100.0100 ####[facility] [address] [place], [address] ALT [Catalytic activity/Vol] 17 U/L Normal 16-61 [facility] Comment on above: Performed By: #### L 500.4050, L100.0100 ####[facility] [address] [place], [address] AST [Catalytic activity/Vol] 15 U/L Normal 15-37 [facility] Comment on above: Performed By: #### L 500.4050, L100.0100 ####[facility] [address] [place], [address] Bilirubin [Mass/Vol] 0.80 mg/dL Normal 0.20-1.00 [facility] Comment on above: Result Comment: For patients on eltrombopag therapy, use of Dimension [place] TBIL is not recommended. Performed By: #### L 500.4050, L100.0100 ####[facility] [address] [place], [address] BUN/CRE 8.2 RATIO Low 10-20 [facility] Comment on above: Performed By: #### L 500.4050, L100.0100 ####[facility] [address] [place], [address] CA,Total 9.5 mg/dL Normal 8.5-10.1 [facility] Comment on above: Performed By: #### L 500.4050, L100.0100 ####[facility] [address] [place], [address] Chloride [Moles/Vol] 95 mmol/L Low 98-107 [facility] Comment on above: Performed By: #### L 500.4050, L100.0100 ####[facility] [address] [place], [address] CO2 [Moles/Vol] 26.0 mmol/L Normal 21.0-32.0 [facility] Comment on above: Performed By: #### L 500.4050, L100.0100 ####[facility] [address] [place], [address] Creatinine [Mass/Vol] 7.22 mg/dL High 0.70-1.30 [facility] Comment on above: Result Comment: The validity of the calculated GFR GFRAA in patients over70 years has not been determined. Clinical correlation isessential. Performed By: #### L 500.4050, L100.0100 ####[facility] [address] [place], [address] ECRCL 10.36 ml/min Normal [facility] Comment on above: Performed By: #### L 500.4050, L100.0100 ####[facility] [address] [place], [address] EST GFR - AA 10 mL/min Low >60 [facility] Comment on above: Result Comment: Afri can [place] GFR Calc Performed By: #### L 500.4050, L100.0100 ####[facility] [address] [place], [address] GAP 10 Normal 5-15 [facility] Comment on above: Performed By: #### L 500.4050, L100.0100 ####[facility] [address] [place], [address] GFR/1.73 sq M.predicted among non-blacks MDRD (S/P/Bld) [Vol rate/Area] 8 mL/min/{1.73_m2} Low >60 [facility] Comment on above: Result Comment: Non- GFR Calc Performed By: #### L 500.4050, L100.0100 ####[facility] [address] [place], [address] Globulin (S) [Mass/Vol] 4.6 g/dL High 2.2-4.2 [facility] Comment on above: Performed By: #### L 500.4050, L100.0100 ####[facility] [address] [place], [address] Glucose [Mass/Vol] 99 mg/dL Normal 74-106 [facility] Comment on above: Performed By: #### L 500.4050, L100.0100 ####[facility] [address] [place], [address] Potassium [Moles/Vol] 4.7 mmol/L Normal 3.5-5.1 [facility] Comment on above: Performed By: #### L 500.4050, L100.0100 ####[facility] [address] [place], [address] Sodium [Moles/Vol] 132 mmol/L Low 136-145 [facility] Comment on above: Performed By: #### L 500.4050, L100.0100 ####[facility] [address] [place], [address] T PROT 7.3 g/dL Normal 6.4-8.2 [facility] Comment on above: Performed By: #### L 500.4050, L100.0100 ####[facility] [address] [place], [address] Urea nitrogen [Mass/Vol] 59 mg/dL High 7-18 [facility] Comment on above: Performed By: #### L 500.4050, L100.0100 ####[facility] [address] [place], [address] ENTERIC PATHOGEN PANEL STOOL on 06-28-2024 EP PANEL CAMPYLOBACTER Not Detected Norovirus Not Detected Rotavirus Not Detected Salmonella Not Detected Shiga Toxin Not Detected Shigella sp. Not Detected VIBRIO Not Detected Yersinia Not Detected Normal [facility] Comment on above: Performed By: #### M 100.2200, L400.0001, M100.637, M100.6796 ####[facility] [address] [place], [address] Emergency Department Summary on 06-28-2024 Emergency Department Summary Normal [facility] Epithelial cells.squamous LM Ql (Urine sed)Ordered By: Koffi Coffman on 06-28-2024 Epithelial cells.squamous LM.HPF (Urine sed) [#/Area] 0 /[HPF] 0-5 [facility] Glucose Ql (U)Ordered By: El Coffman on 06-28-2024 Urine Glucose (UA) Normal mg/dl Normal [facility] H AND P Exam - Hospitaliston 06-28-2024 H&P Exam - Hospitalist Normal [facility] Ketones Test strip Ql (U)Ord ered By: Koffi Coffman on 06-28-2024 Ketones Ql (U) 5 mg/dl High Negative [facility] Laboratory - Chemistry and C hemistry - challengeOrdered By: Koffi Coffman on 06-28-2024 AST [Catalytic activity/Vol] 15 U/L 15-37 [facility] Microscopic analysis of urin e for red blood cells (RBC)Ordered By: Koffi Coffman on 06-28-2024 Urine RBC > 100 SEEN /hpf 0-5 [facility] Mucus LM Ql (Urine sed)Order ed By: Koffi Coffman on 06-28-2024 Mucus Ql (Urine sed) 0 SEEN /hpf [facility] Nitrite Test strip Ql (U)Ord ered By: Koffi Coffman on 06-28-2024 Nitrite Ql (U) Negative Negative [facility] Protein Test strip Ql (U)Ord ered By: Koffi Coffman on 06-28-2024 Protein Ql (U) 100 mg/dl High Negative [facility] Serum globulin measurementOr dered By: Koffi Coffman on 06-28-2024 Globulin (S) [Mass/Vol] 4.6 g/dL High 2.2-4.2 [facility] Serum or plasma alanine saldivar otransferase (ALT) measurementOrdered By: Koffi Coffman on 06-28-2024 ALT [Catalytic activity/Vol] 17 U/L 16-61 [facility] Serum or plasma albumin cris urement (mass/volume)Ordered By: Koffi Coffman on 06-28-2024 Albumin [Mass/Vol] 2.7 g/dL Low 3.2-5.0 [facility] Serum or plasma alkaline tina sphatase measurementOrdered By: Koffi Coffman on 06-28-2024 ALP [Catalytic activity/Vol] 92 U/L 45-117 [facility] Stool enteric pathogen panel by probe and target amplification methodOrdered By: Koffi Coffman on 06-28-2024 Enteric Bacteriology [facility] TSH QnOrdered By: Pranay Beck on 06-28-2024 Thyroid Stimulating Hormone (TSH) 2.300 uIU/mL 0.358-3.740 [facility] Thyroid Stim Hormone (TSH)on 06-28-2024 TSH 2.300 uIU/mL Normal 0.358-3.740 [facility] Comment on above: Performed By: #### L 501.9520 ####[facility] [address] [place], [address] Total proteinOrdered By: Kenia Coffman on 06-28-2024 Protein [Mass/Vol] 7.3 g/dL 6.4-8.2 [facility] Urinalysis, Completeon 06-28 RBC > 100 SEEN Normal 0-5 [facility] Comment on above: Order Comment: COLOR OF URINE MAY AFFECT DIPSTICK RESULTS.CATHETER SPECIMEN Performed By: #### M 100.2200, L400.0001, M100.637, M100.6796 ####[facility] [address] [place], [address] WBC >100 SEEN Normal 0-5 [facility] Comment on above: Order Comment: COLOR OF URINE MAY AFFECT DIPSTICK RESULTS.CATHETER SPECIMEN Performed By: #### M 100.2200, L400.0001, M100.637, M100.6796 ####[facility] [address] [place], [address] BACTERIA 0 SEEN Normal None Seen [facility] Comment on above: Order Comment: COLOR OF URINE MAY AFFECT DIPSTICK RESULTS.CATHETER SPECIMEN Performed By: #### M 100.2200, L400.0001, M100.637, M100.6796 ####[facility] [address] [place], [address] EPI,SQUAMOUS 0 SEEN Normal 0-5 [facility] Comment on above: Order Comment: COLOR OF URINE MAY AFFECT DIPSTICK RESULTS.CATHETER SPECIMEN Performed By: #### M 100.2200, L400.0001, M100.637, M100.6796 ####[facility] [address] [place], [address] Mucus Ql (Urine sed) 0 SEEN Normal [facility] Comment on above: Order Comment: COLOR OF URINE MAY AFFECT DIPSTICK RESULTS.CATHETER SPECIMEN Performed By: #### M 100.2200, L400.0001, M100.637, M100.6796 ####[facility] [address] [place], [address] Urine blood detectionOrdered By: Koffi Coffman on 06-28-2024 Urine Occult Blood 250 /ul High Negative [facility] Urine clarityOrdered By: Kenia Coffman on 06-28-2024 Clarity (U) Turbid Clear [facility] Urine color determinationOrd ered By: Koffi Coffman on 06-28-2024 Color (U) Red Yellow [facility] Urine cultureOrdered By: Kenia Coffman on 06-28-2024 Bacteria identified Cx Nom (U) Pseudomonas aeruginosa Abnormal [facility] Urine leukocyte esterase det ection by dipstickOrdered By: Koffi Coffman on 06-28-2024 Leukocyte esterase Test strip Ql (U) 500 /ul High Negative [facility] Urine pHOrdered By: Koffi Coffman on 06-28-2024 pH (U) 7.0 [pH] 5.0 - 8.0 [facility] Urine sediment bacteria coun t by microscopy (number/high power field)Ordered By: Koffi Coffman on 06-28-2024 Bacteria LM.HPF (Urine sed) [#/Area] 0 /[HPF] None Seen [facility] Urine specific gravity measu rementOrdered By: Koffi Coffman on 06-28-2024 Specific gravity (U) [Rel density] 1.010 1.002-1.030 [facility] Urobilinogen Ql (U)Ordered B y: Koffi Coffman on 06-28-2024 Urine Urobilinogen Normal mg/dl Normal [facility] White blood cell countOrdere d By: Koffi Coffman on 06-28-2024 Urine WBC >100 SEEN /hpf 0-5 [facility] Basic Metabolic Profile (BMP )on 06-07-2024 BUN Normal 7-18 [facility] Comment on above: Result Comment: Canc elled via OM: Order cancelled - Patient discharged Performed By: #### L 500.2500, L100.0100 ####[facility] [address] [place], [address] BUN/CRE Normal 10-20 [facility] Comment on above: Result Comment: Canc elled via OM: Order cancelled - Patient discharged Performed By: #### L 500.2500, L100.0100 ####[facility] [address] [place], [address] CA,Total Normal 8.5-10.1 [facility] Comment on above: Result Comment: Canc elled via OM: Order cancelled - Patient discharged Performed By: #### L 500.2500, L100.0100 ####[facility] [address] [place], [address] CL Normal 98-107 [facility] Comment on above: Result Comment: Canc elled via OM: Order cancelled - Patient discharged Performed By: #### L 500.2500, L100.0100 ####[facility] [address] [place], [address] CO2 Normal 21.0-32.0 [facility] Comment on above: Result Comment: Canc elled via OM: Order cancelled - Patient discharged Performed By: #### L 500.2500, L100.0100 ####[facility] [address] [place], [address] CREAT,SERUM Normal 0.70-1.30 [facility] Comment on above: Result Comment: Canc elled via OM: Order cancelled - Patient discharged Performed By: #### L 500.2500, L100.0100 ####[facility] [address] [place], [address] EST GFR Normal >60 [facility] Comment on above: Result Comment: Canc elled via OM: Order cancelled - Patient discharged Performed By: #### L 500.2500, L100.0100 ####[facility] [address] [place], [address] EST GFR - AA Normal >60 [facility] Comment on above: Result Comment: Canc elled via OM: Order cancelled - Patient discharged Performed By: #### L 500.2500, L100.0100 ####[facility] [address] [place], [address] GAP Normal 5-15 [facility] Comment on above: Result Comment: Canc elled via OM: Order cancelled - Patient discharged Performed By: #### L 500.2500, L100.0100 ####[facility] [address] [place], [address] GLU Normal 74-106 [facility] Comment on above: Result Comment: Canc elled via OM: Order cancelled - Patient discharged Performed By: #### L 500.2500, L100.0100 ####[facility] [address] [place], [address] Potassium Normal 3.5-5.1 [facility] Comment on above: Result Comment: Canc elled via OM: Order cancelled - Patient discharged Performed By: #### L 500.2500, L100.0100 ####[facility] [address] [place], [address] Basic Metabolic Profile (BMP) Normal 136-145 [facility] Comment on above: Result Comment: Canc elled via OM: Order cancelled - Patient discharged Performed By: #### L 500.2500, L100.0100 ####[facility] [address] [place], [address] CBC W/Diff, Automatedon 01-0 -2024 Absolute Neut Normal 2.0-7.7 [facility] Comment on above: Result Comment: Canc elled via OM: Order cancelled - Patient discharged Performed By: #### L 500.2500, L100.0100 ####[facility] [address] [place], [address] HCT Normal 40-54 [facility] Comment on above: Result Comment: Canc elled via OM: Order cancelled - Patient discharged Performed By: #### L 500.2500, L100.0100 ####[facility] [address] [place], [address] HGB Normal 13.0-16.5 [facility] Comment on above: Result Comment: Canc elled via OM: Order cancelled - Patient discharged Performed By: #### L 500.2500, L100.0100 ####[facility] [address] [place], [address] MCH Normal 27.0-32.0 [facility] Comment on above: Result Comment: Canc elled via OM: Order cancelled - Patient discharged Performed By: #### L 500.2500, L100.0100 ####[facility] [address] [place], [address] MCHC Normal 32-36 [facility] Comment on above: Result Comment: Canc elled via OM: Order cancelled - Patient discharged Performed By: #### L 500.2500, L100.0100 ####[facility] [address] [place], [address] MCV Normal 80-94 [facility] Comment on above: Result Comment: Canc elled via OM: Order cancelled - Patient discharged Performed By: #### L 500.2500, L100.0100 ####[facility] [address] [place], [address] NEUT% Normal 47-70 [facility] Comment on above: Result Comment: Canc elled via OM: Order cancelled - Patient discharged Performed By: #### L 500.2500, L100.0100 ####[facility] [address] [place], [address] PLT Normal 150-450 [facility] Comment on above: Result Comment: Canc elled via OM: Order cancelled - Patient discharged Performed By: #### L 500.2500, L100.0100 ####[facility] [address] [place], [address] RBC Normal 4.6-6.2 [facility] Comment on above: Result Comment: Canc elled via OM: Order cancelled - Patient discharged Performed By: #### L 500.2500, L100.0100 ####[facility] [address] [place], [address] RDW CV Normal 11.6-14.6 [facility] Comment on above: Result Comment: Canc elled via OM: Order cancelled - Patient discharged Performed By: #### L 500.2500, L100.0100 ####[facility] [address] [place], [address] RDW SD Normal 35.1-43.9 [facility] Comment on above: Result Comment: Canc elled via OM: Order cancelled - Patient discharged Performed By: #### L 500.2500, L100.0100 ####[facility] [address] [place], [address] WBC Normal 4.4-11.0 [facility] Comment on above: Result Comment: Canc elled via OM: Order cancelled - Patient discharged Performed By: #### L 500.2500, L100.0100 ####[facility] [address] [place], [address] Respiratory Cultureon 2024 RESPC Mixed normal respiratory sunny. No Haemophilus, Streptococcus pneumoniae, beta-hemolytic Streptococcus or Staphylococcus aureus isolated. Microorganism Spec Cult Normal [facility] Comment on above: Performed By: #### M 100.2000, M100.2400 ####[facility] [address] [place], [address] Absolute neutrophil countOrd ered By: Calvin Yoo on 06-06-2024 Neutrophils (Bld) [#/Vol] 9.4 10*3/uL High 2.0-7.7 [facility] Basic Metabolic Profile (BMP )on 06-06-2024 BUN/CRE 15.7 RATIO Normal 10-20 [facility] Comment on above: Performed By: #### L 500.2500, L100.0100 ####[facility] [address] [place], [address] CA,Total 9.6 mg/dL Normal 8.5-10.1 [facility] Comment on above: Performed By: #### L 500.2500, L100.0100 ####[facility] [address] [place], [address] Chloride [Moles/Vol] 101 mmol/L Normal 98-107 [facility] Comment on above: Performed By: #### L 500.2500, L100.0100 ####[facility] [address] [place], [address] CO2 [Moles/Vol] 25.0 mmol/L Normal 21.0-32.0 [facility] Comment on above: Performed By: #### L 500.2500, L100.0100 ####[facility] [address] [place], [address] Creatinine [Mass/Vol] 4.70 mg/dL High 0.70-1.30 [facility] Comment on above: Result Comment: The validity of the calculated GFR GFRAA in patients over70 years has not been determined. Clinical correlation isessential. Performed By: #### L 500.2500, L100.0100 ####[facility] [address] [place], [address] ECRCL 16.03 ml/min Normal [facility] Comment on above: Performed By: #### L 500.2500, L100.0100 ####[facility] [address] [place], [address] EST GFR - AA 16 mL/min Low >60 [facility] Comment on above: Result Comment: Afri can [place] GFR Calc Performed By: #### L 500.2500, L100.0100 ####[facility] [address] [place], [address] GAP 10 Normal 5-15 [facility] Comment on above: Performed By: #### L 500.2500, L100.0100 ####[facility] [address] [place], [address] GFR/1.73 sq M.predicted among non-blacks MDRD (S/P/Bld) [Vol rate/Area] 13 mL/min/{1.73_m2} Low >60 [facility] Comment on above: Result Comment: Non- GFR Calc Performed By: #### L 500.2500, L100.0100 ####[facility] [address] [place], [address] Glucose [Mass/Vol] 162 mg/dL High 74-106 [facility] Comment on above: Result Comment: Fast ing Glucose result greater than or equal to 126 mg/dLsuggests DIABETES MELLITUS per A.D.A. criteria. Performed By: #### L 500.2500, L100.0100 ####[facility] [address] [place], [address] Potassium [Moles/Vol] 4.5 mmol/L Normal 3.5-5.1 [facility] Comment on above: Performed By: #### L 500.2500, L100.0100 ####[facility] [address] [place], [address] Sodium [Moles/Vol] 136 mmol/L Normal 136-145 [facility] Comment on above: Performed By: #### L 500.2500, L100.0100 ####[facility] [address] [place], [address] Urea nitrogen [Mass/Vol] 74 mg/dL High 7-18 [facility] Comment on above: Performed By: #### L 500.2500, L100.0100 ####[facility] [address] [place], [address] Basophil percentageOrdered B y: Calvin Yoo on 06-06-2024 Basophils/100 WBC (Bld) 0.1 % 0-1 [facility] Blood urea nitrogen (BUN)/cr eatinine ratioOrdered By: Calvin Yoo on 06-06-2024 Urea nitrogen/Creatinine [Mass ratio] 15.7 mg/mg 10-20 [facility] CBC W/Diff, Automatedon Absolute Lymph 0.62 X10 3/uL Low 0.83-4.51 [facility] Comment on above: Performed By: #### L 500.2500, L100.0100 ####[facility] [address] [place], [address] Absolute Neut 9.4 X10 3/uL High 2.0-7.7 [facility] Comment on above: Performed By: #### L 500.2500, L100.0100 ####[facility] [address] [place], [address] Basophils/100 WBC (Bld) 0.1 % Normal 0-1 [facility] Comment on above: Performed By: #### L 500.2500, L100.0100 ####[facility] [address] [place], [address] Eosinophils/100 WBC (Bld) 0.0 % Normal 0-5 [facility] Comment on above: Performed By: #### L 500.2500, L100.0100 ####[facility] [address] [place], [address] Erythrocyte distribution width (RBC) [Ratio] 16.0 % High 11.6-14.6 [facility] Comment on above: Performed By: #### L 500.2500, L100.0100 ####[facility] [address] [place], [address] Hematocrit (Bld) [Volume fraction] 38.6 % Low 40-54 [facility] Comment on above: Performed By: #### L 500.2500, L100.0100 ####[facility] [address] [place], [address] Hemoglobin (Bld) [Mass/Vol] 11.6 g/dL Low 13.0-16.5 [facility] Comment on above: Performed By: #### L 500.2500, L100.0100 ####[facility] [address] [place], [address] IG% 1.000 High 0.0-0.9 [facility] Comment on above: Result Comment: IG% - Immature Granulocytes (promyelocytes, myelocytes andmetamyelocytes) > 1% indicates that a LEFT SHIFT is Present. Performed By: #### L 500.2500, L100.0100 ####[facility] [address] [place], [address] Lymphocytes/100 WBC (Bld) 6.0 % Low 19-41 [facility] Comment on above: Performed By: #### L 500.2500, L100.0100 ####[facility] [address] [place], [address] MCH (RBC) [Entitic mass] 29.0 pg Normal 27.0-32.0 [facility] Comment on above: Performed By: #### L 500.2500, L100.0100 ####[facility] [address] [place], [address] MCHC (RBC) [Mass/Vol] 30.1 g/dL Low 32-36 [facility] Comment on above: Performed By: #### L 500.2500, L100.0100 ####[facility] [address] [place], [address] MCV (RBC) [Entitic vol] 96.5 fL High 80-94 [facility] Comment on above: Performed By: #### L 500.2500, L100.0100 ####[facility] [address] [place], [address] Monocytes/100 WBC (Bld) 1.9 % Normal 0-10 [facility] Comment on above: Performed By: #### L 500.2500, L100.0100 ####[facility] [address] [place], [address] Neutrophils/100 WBC (Bld) 91.0 % High 47-70 [facility] Comment on above: Performed By: #### L 500.2500, L100.0100 ####[facility] [address] [place], [address] Nucleated RBC (Bld) [#/Vol] 0 10*3/uL Normal 0-5 [facility] Comment on above: Performed By: #### L 500.2500, L100.0100 ####[facility] [address] [place], [address] Platelet mean volume (Bld) [Entitic vol] 10.7 fL Normal 6.2-12.0 [facility] Comment on above: Performed By: #### L 500.2500, L100.0100 ####[facility] [address] [place], [address] Platelets (Bld) [#/Vol] 185 10*3/uL Normal 150-450 [facility] Comment on above: Performed By: #### L 500.2500, L100.0100 ####[facility] [address] [place], [address] RBC (Bld) [#/Vol] 4.00 10*6/uL Low 4.6-6.2 [facility] Comment on above: Performed By: #### L 500.2500, L100.0100 ####[facility] [address] [place], [address] RDW SD 56.8 fl High 35.1-43.9 [facility] Comment on above: Performed By: #### L 500.2500, L100.0100 ####[facility] [address] [place], [address] WBC (Bld) [#/Vol] 10.3 10*3/uL Normal 4.4-11.0 [facility] Comment on above: Performed By: #### L 500.2500, L100.0100 ####[facility] [address] [place], [address] Carbon dioxide measurementOr dered By: Calvin Yoo on 06-06-2024 CO2 [Moles/Vol] 25.0 mmol/L 21.0-32.0 [facility] Chloride measurementOrdered By: Calvin Yoo on 06-06-2024 Chloride [Moles/Vol] 101 mmol/L 98-107 [facility] Eosinophil percentageOrdered By: Calvin Yoo on 06-06-2024 Eosinophils/100 WBC (Bld) 0.0 % 0-5 [facility] Erythrocyte distribution wid th ratioOrdered By: Calvin Yoo on 06-06-2024 Erythrocyte distribution width (RBC) [Ratio] 16.0 % High 11.6-14.6 [facility] Erythrocyte distribution wid th standard deviationOrdered By: Calvin Yoo on 06-06-2024 Erythrocyte distribution width (RBC) [Entitic vol] 56.8 fL High 35.1-43.9 [facility] Estimated glomerular filtrat ion rate (GFR) AmericanOrdered By: Calvin Yoo on 06-06-2024 Estimated GFR (MDRD) Amer 16 mL/min Low >60 [facility] Comment on above: GFR Calc Estimation of creatinine jessica aranceOrdered By: Calvin Yoo on 06-06-2024 Estimated Creatinine Clearance Calc 16.03 ml/min [facility] Glomerular filtration rate ( GFR) estimationOrdered By: Calvin Yoo on 06-06-2024 Estimated GFR (MDRD) Non-Af Amer 13 mL/min Low >60 [facility] Comment on above: Non- GFR Calc Glucose measurementOrdered B y: Calvin Yoo on 06-06-2024 Glucose [Mass/Vol] 162 mg/dL High 74-106 [facility] Comment on above: Fasting Glucose resu lt greater than or equal to 126 mg/dL suggests DIABETES MELLITUS per A.D.A. criteria. Hematocrit Auto (Bld) [Volum e fraction]Ordered By: Calvin Yoo on 06-06-2024 Hematocrit (Bld) [Volume fraction] 38.6 % Low 40-54 [facility] Hemoglobin measurementOrdere d By: Calvin Yoo on 06-06-2024 Hemoglobin (Bld) [Mass/Vol] 11.6 g/dL Low 13.0-16.5 [facility] Immature granulocytes/100 WB C Auto (Bld)Ordered By: Calvin Yoo on 06-06-2024 Immature granulocytes/100 WBC (Bld) 1.000 % High 0.0-0.9 [facility] Comment on above: IG% - Immature Granu locytes (promyelocytes, myelocytes and metamyelocytes) > 1% indicates that a LEFT SHIFT is Present. Lymphocytes Auto (Unsp spec) [#/Vol]Ordered By: Calvin Yoo on 06-06-2024 Lymphocytes (Bld) [#/Vol] 0.62 10*3/uL Low 0.83-4.51 [facility] Lymphocytes/100 WBC Auto (Un sp spec)Ordered By: Calvin Yoo on 06-06-2024 Lymphocytes/100 WBC (Bld) 6.0 % Low 19-41 [facility] MCV (mean corpuscular volume ) determinationOrdered By: Calvin Yoo on 06-06-2024 MCV (RBC) [Entitic vol] 96.5 fL High 80-94 [facility] Mean corpuscular hemoglobin (MCH) determinationOrdered By: Calvin Yoo on 06-06-2024 MCH (RBC) [Entitic mass] 29.0 pg 27.0-32.0 [facility] Mean corpuscular hemoglobin concentration (MCHC) determinationOrdered By: Calvin Yoo on 06-06-2024 MCHC (RBC) [Mass/Vol] 30.1 g/dL Low 32-36 [facility] Mean platelet volume determi nationOrdered By: Calvin Yoo on 06-06-2024 Platelet mean volume (Bld) [Entitic vol] 10.7 fL 6.2-12.0 [facility] Monocyte percentageOrdered B y: Calvin Yoo on 06-06-2024 Monocytes/100 WBC (Bld) 1.9 % 0-10 [facility] Neutrophil percentageOrdered By: Calvin Yoo on 06-06-2024 Neutrophils/100 WBC (Bld) 91.0 % High 47-70 [facility] Nucleated red blood cell per centageOrdered By: Calvin Yoo on 06-06-2024 Nucleated RBC/100 WBC (Bld) [Ratio] 0 % 0-5 [facility] Platelet countOrdered By: Sami Yoo on 06-06-2024 Platelets (Bld) [#/Vol] 185 10*3/uL 150-450 [facility] Potassium measurementOrdered By: Calvin Yoo on 06-06-2024 Potassium [Moles/Vol] 4.5 mmol/L 3.5-5.1 [facility] RBC Auto (Bld) [#/Vol]Ordere d By: Calvin Yoo on 06-06-2024 RBC (Bld) [#/Vol] 4.00 10*6/uL Low 4.6-6.2 [facility] Serum anion gap measurementO rdered By: Calvin Yoo on 06-06-2024 Anion gap [Moles/Vol] 10 mmol/L 5-15 [facility] Serum or plasma calcium cris urement (mass/volume)Ordered By: Calvin Yoo on 06-06-2024 Calcium [Mass/Vol] 9.6 mg/dL 8.5-10.1 [facility] Serum or plasma creatinine m easurement (mass/volume)Ordered By: Calvin Yoo on 06-06-2024 Creatinine [Mass/Vol] 4.70 mg/dL High 0.70-1.30 [facility] Comment on above: The validity of the calculated GFR & GFRAA in patients over 70 years has not been determined. Clinical correlation is essential. Serum or plasma urea nitroge n measurement (mass/volume)Ordered By: Calvin Yoo on 06-06-2024 Urea nitrogen [Mass/Vol] 74 mg/dL High 7-18 [facility] Sodium levelOrdered By: Koko Yoo on 06-06-2024 Sodium [Moles/Vol] 136 mmol/L 136-145 [facility] White blood cell (WBC) count Ordered By: Calvin Yoo on 06-06-2024 WBC (Bld) [#/Vol] 10.3 10*3/uL 4.4-11.0 [facility] Basic Metabolic Profile (BMP )on 06-05-2024 BUN/CRE 12.6 RATIO Normal 10-20 [facility] Comment on above: Performed By: #### L 100.0100, L500.2500, L501.2300, L501.5200 ####[facility] [address] [facility] [address] [place],Total 9.7 mg/dL Normal 8.5-10.1 [facility] Comment on above: Performed By: #### L 100.0100, L500.2500, L501.2300, L501.5200 ####[facility] [address] [place], [address] Chloride [Moles/Vol] 99 mmol/L Normal 98-107 [facility] Comment on above: Performed By: #### L 100.0100, L500.2500, L501.2300, L501.5200 ####[facility] [address] [place], [address] CO2 [Moles/Vol] 25.0 mmol/L Normal 21.0-32.0 [facility] Comment on above: Performed By: #### L 100.0100, L500.2500, L501.2300, L501.5200 ####[facility] [address] [place], [address] Creatinine [Mass/Vol] 5.33 mg/dL High 0.70-1.30 [facility] Comment on above: Result Comment: The validity of the calculated GFR GFRAA in patients over70 years has not been determined. Clinical correlation isessential. Performed By: #### L 100.0100, L500.2500, L501.2300, L501.5200 ####[facility] [address] [place], [address] ECRCL 14.01 ml/min Normal [facility] Comment on above: Performed By: #### L 100.0100, L500.2500, L501.2300, L501.5200 ####[facility] [address] [place], [address] EST GFR - AA 14 mL/min Low >60 [facility] Comment on above: Result Comment: Afri can [place] GFR Calc Performed By: #### L 100.0100, L500.2500, L501.2300, L501.5200 ####[facility] [address] [place], [address] GAP 11 Normal 5-15 [facility] Comment on above: Performed By: #### L 100.0100, L500.2500, L501.2300, L501.5200 ####[facility] [address] [place], [address] GFR/1.73 sq M.predicted among non-blacks MDRD (S/P/Bld) [Vol rate/Area] 11 mL/min/{1.73_m2} Low >60 [facility] Comment on above: Result Comment: Non- GFR Calc Performed By: #### L 100.0100, L500.2500, L501.2300, L501.5200 ####[facility] [address] [place], [address] Glucose [Mass/Vol] 177 mg/dL High 74-106 [facility] Comment on above: Result Comment: Fast ing Glucose result greater than or equal to 126 mg/dLsuggests DIABETES MELLITUS per A.D.A. criteria. Performed By: #### L 100.0100, L500.2500, L501.2300, L501.5200 ####[facility] [address] [place], [address] Potassium [Moles/Vol] 4.5 mmol/L Normal 3.5-5.1 [facility] Comment on above: Performed By: #### L 100.0100, L500.2500, L501.2300, L501.5200 ####[facility] [address] [place], [address] Sodium [Moles/Vol] 136 mmol/L Normal 136-145 [facility] Comment on above: Performed By: #### L 100.0100, L500.2500, L501.2300, L501.5200 ####[facility] [address] [place], [address] Urea nitrogen [Mass/Vol] 67 mg/dL High 7-18 [facility] Comment on above: Performed By: #### L 100.0100, L500.2500, L501.2300, L501.5200 ####[facility] [address] [place], [address] CBC W/Diff, Automatedon 01-0 4-5 Absolute Lymph 0.62 X10 3/uL Low 0.83-4.51 [facility] Comment on above: Performed By: #### L 100.0100, L500.2500, L501.2300, L501.5200 ####[facility] [address] [place], [address] Absolute Neut 10.6 X10 3/uL High 2.0-7.7 [facility] Comment on above: Performed By: #### L 100.0100, L500.2500, L501.2300, L501.5200 ####[facility] [address] [place], [address] Basophils/100 WBC (Bld) 0.1 % Normal 0-1 [facility] Comment on above: Performed By: #### L 100.0100, L500.2500, L501.2300, L501.5200 ####[facility] [address] [place], [address] Eosinophils/100 WBC (Bld) 0.0 % Normal 0-5 [facility] Comment on above: Performed By: #### L 100.0100, L500.2500, L501.2300, L501.5200 ####[facility] [address] [place], [address] Erythrocyte distribution width (RBC) [Ratio] 15.9 % High 11.6-14.6 [facility] Comment on above: Performed By: #### L 100.0100, L500.2500, L501.2300, L501.5200 ####[facility] [address] [place], [address] Hematocrit (Bld) [Volume fraction] 37.9 % Low 40-54 [facility] Comment on above: Performed By: #### L 100.0100, L500.2500, L501.2300, L501.5200 ####[facility] [address] [place], [address] Hemoglobin (Bld) [Mass/Vol] 11.7 g/dL Low 13.0-16.5 [facility] Comment on above: Performed By: #### L 100.0100, L500.2500, L501.2300, L501.5200 ####[facility] [address] [place], [address] IG% 0.700 Normal 0.0-0.9 [facility] Comment on above: Result Comment: IG% - Immature Granulocytes (promyelocytes, myelocytes andmetamyelocytes) > 1% indicates that a LEFT SHIFT is Present. Performed By: #### L 100.0100, L500.2500, L501.2300, L501.5200 ####[facility] [address] [place], [address] Lymphocytes/100 WBC (Bld) 5.4 % Low 19-41 [facility] Comment on above: Performed By: #### L 100.0100, L500.2500, L501.2300, L501.5200 ####[facility] [address] [place], [address] MCH (RBC) [Entitic mass] 29.3 pg Normal 27.0-32.0 [facility] Comment on above: Performed By: #### L 100.0100, L500.2500, L501.2300, L501.5200 ####[facility] [address] [place], [address] MCHC (RBC) [Mass/Vol] 30.9 g/dL Low 32-36 [facility] Comment on above: Performed By: #### L 100.0100, L500.2500, L501.2300, L501.5200 ####[facility] [address] [place], [address] MCV (RBC) [Entitic vol] 94.8 fL High 80-94 [facility] Comment on above: Performed By: #### L 100.0100, L500.2500, L501.2300, L501.5200 ####[facility] [address] [place], [address] Monocytes/100 WBC (Bld) 2.1 % Normal 0-10 [facility] Comment on above: Performed By: #### L 100.0100, L500.2500, L501.2300, L501.5200 ####[facility] [address] [place], [address] Neutrophils/100 WBC (Bld) 91.7 % High 47-70 [facility] Comment on above: Performed By: #### L 100.0100, L500.2500, L501.2300, L501.5200 ####[facility] [address] [place], [address] Nucleated RBC (Bld) [#/Vol] 0 10*3/uL Normal 0-5 [facility] Comment on above: Performed By: #### L 100.0100, L500.2500, L501.2300, L501.5200 ####[facility] [address] [place], [address] Platelet mean volume (Bld) [Entitic vol] 10.9 fL Normal 6.2-12.0 [facility] Comment on above: Performed By: #### L 100.0100, L500.2500, L501.2300, L501.5200 ####[facility] [address] [place], [address] Platelets (Bld) [#/Vol] 180 10*3/uL Normal 150-450 [facility] Comment on above: Performed By: #### L 100.0100, L500.2500, L501.2300, L501.5200 ####[facility] [address] [place], [address] RBC (Bld) [#/Vol] 4.00 10*6/uL Low 4.6-6.2 [facility] Comment on above: Performed By: #### L 100.0100, L500.2500, L501.2300, L501.5200 ####[facility] [address] [place], [address] RDW SD 55.4 fl High 35.1-43.9 [facility] Comment on above: Performed By: #### L 100.0100, L500.2500, L501.2300, L501.5200 ####[facility] [address] [place], [address] WBC (Bld) [#/Vol] 11.6 10*3/uL High 4.4-11.0 [facility] Comment on above: Performed By: #### L 100.0100, L500.2500, L501.2300, L501.5200 ####[facility] [address] [place], [address] Magnesiumon 06-05-2024 Magnesium [Mass/Vol] 2.4 mg/dL Normal 1.6-2.6 [facility] Comment on above: Performed By: #### L 100.0100, L500.2500, L501.2300, L501.5200 ####[facility] [address] [place], [address] Magnesium measurementOrdered By: Calvin Yoo on 06-05-2024 Magnesium [Mass/Vol] 2.4 mg/dL 1.6-2.6 [facility] Phosphoruson 06-05-2024 Phosphate [Mass/Vol] 3.8 mg/dL Normal 2.5-4.9 [facility] Comment on above: Performed By: #### L 100.0100, L500.2500, L501.2300, L501.5200 ####[facility] [address] [place], [address] Phosphorus measurementOrdere d By: Calvin Yoo on 06-05-2024 Phosphorus Level 3.8 mg/dL 2.5-4.9 [facility] Albumin to globulin ratioOrd ered By: Elana Degroot on 06-04-2024 Albumin/Globulin [Mass ratio] 0.7 {ratio} Low 0.9-2.4 [facility] Bilirubin, totalOrdered By: Elana Degroot on 06-04-2024 Bilirubin [Mass/Vol] 0.40 mg/dL 0.20-1.00 [facility] Comment on above: For patients on eltr ombopag therapy, use of Dimension [place] TBIL is not recommended. CBC W/Diff, Automatedon Absolute Lymph 0.37 X10 3/uL Low 0.83-4.51 [facility] Comment on above: Performed By: #### L 501.5200, L501.2300, L100.0100, L500.4050 ####[facility] [address] [place], [address] Absolute Neut 4.1 X10 3/uL Normal 2.0-7.7 [facility] Comment on above: Performed By: #### L 501.5200, L501.2300, L100.0100, L500.4050 ####[facility] [address] [place], [address] Basophils/100 WBC (Bld) 0.2 % Normal 0-1 [facility] Comment on above: Performed By: #### L 501.5200, L501.2300, L100.0100, L500.4050 ####[facility] [address] [place], [address] Eosinophils/100 WBC (Bld) 0.0 % Normal 0-5 [facility] Comment on above: Performed By: #### L 501.5200, L501.2300, L100.0100, L500.4050 ####[facility] [address] [place], [address] Erythrocyte distribution width (RBC) [Ratio] 15.8 % High 11.6-14.6 [facility] Comment on above: Performed By: #### L 501.5200, L501.2300, L100.0100, L500.4050 ####[facility] [address] [place], [address] Hematocrit (Bld) [Volume fraction] 41.5 % Normal 40-54 [facility] Comment on above: Performed By: #### L 501.5200, L501.2300, L100.0100, L500.4050 ####[facility] [address] [place], [address] Hemoglobin (Bld) [Mass/Vol] 12.7 g/dL Low 13.0-16.5 [facility] Comment on above: Performed By: #### L 501.5200, L501.2300, L100.0100, L500.4050 ####[facility] [address] [place], [address] IG% 0.400 Normal 0.0-0.9 [facility] Comment on above: Result Comment: IG% - Immature Granulocytes (promyelocytes, myelocytes andmetamyelocytes) > 1% indicates that a LEFT SHIFT is Present. Performed By: #### L 501.5200, L501.2300, L100.0100, L500.4050 ####[facility] [address] [place], [address] Lymphocytes/100 WBC (Bld) 8.0 % Low 19-41 [facility] Comment on above: Performed By: #### L 501.5200, L501.2300, L100.0100, L500.4050 ####[facility] [address] [place], [address] MCH (RBC) [Entitic mass] 29.5 pg Normal 27.0-32.0 [facility] Comment on above: Performed By: #### L 501.5200, L501.2300, L100.0100, L500.4050 ####[facility] [address] [place], [address] MCHC (RBC) [Mass/Vol] 30.6 g/dL Low 32-36 [facility] Comment on above: Performed By: #### L 501.5200, L501.2300, L100.0100, L500.4050 ####[facility] [address] [place], [address] MCV (RBC) [Entitic vol] 96.5 fL High 80-94 [facility] Comment on above: Performed By: #### L 501.5200, L501.2300, L100.0100, L500.4050 ####[facility] [address] [place], [address] Monocytes/100 WBC (Bld) 2.2 % Normal 0-10 [facility] Comment on above: Performed By: #### L 501.5200, L501.2300, L100.0100, L500.4050 ####[facility] [address] [place], [address] Neutrophils/100 WBC (Bld) 89.2 % High 47-70 [facility] Comment on above: Performed By: #### L 501.5200, L501.2300, L100.0100, L500.4050 ####[facility] [address] [place], [address] Nucleated RBC (Bld) [#/Vol] 0 10*3/uL Normal 0-5 [facility] Comment on above: Performed By: #### L 501.5200, L501.2300, L100.0100, L500.4050 ####[facility] [address] [place], [address] Platelet mean volume (Bld) [Entitic vol] 11.2 fL Normal 6.2-12.0 [facility] Comment on above: Performed By: #### L 501.5200, L501.2300, L100.0100, L500.4050 ####[facility] [address] [place], [address] Platelets (Bld) [#/Vol] 146 10*3/uL Low 150-450 [facility] Comment on above: Performed By: #### L 501.5200, L501.2300, L100.0100, L500.4050 ####[facility] [address] [place], [address] RBC (Bld) [#/Vol] 4.30 10*6/uL Low 4.6-6.2 [facility] Comment on above: Performed By: #### L 501.5200, L501.2300, L100.0100, L500.4050 ####[facility] [address] [place], [address] RDW SD 56.1 fl High 35.1-43.9 [facility] Comment on above: Performed By: #### L 501.5200, L501.2300, L100.0100, L500.4050 ####[facility] [address] [place], [address] WBC (Bld) [#/Vol] 4.6 10*3/uL Normal 4.4-11.0 [facility] Comment on above: Performed By: #### L 501.5200, L501.2300, L100.0100, L500.4050 ####[facility] [address] [place], [address] Comprehensive Metabolic Prof ilon 06-04-2024 Albumin [Mass/Vol] 3.3 g/dL Normal 3.2-5.0 [facility] Comment on above: Performed By: #### L 501.5200, L501.2300, L100.0100, L500.4050 ####[facility] [address] [place], [address] Albumin/Globulin [Mass ratio] 0.7 {ratio} Low 0.9-2.4 [facility] Comment on above: Performed By: #### L 501.5200, L501.2300, L100.0100, L500.4050 ####[facility] [address] [place], [address] ALK P 97 U/L Normal 45-117 [facility] Comment on above: Performed By: #### L 501.5200, L501.2300, L100.0100, L500.4050 ####[facility] [address] [place], [address] ALT [Catalytic activity/Vol] 16 U/L Normal 16-61 [facility] Comment on above: Performed By: #### L 501.5200, L501.2300, L100.0100, L500.4050 ####[facility] [address] [place], [address] AST [Catalytic activity/Vol] 20 U/L Normal 15-37 [facility] Comment on above: Performed By: #### L 501.5200, L501.2300, L100.0100, L500.4050 ####[facility] [address] [place], [address] Bilirubin [Mass/Vol] 0.40 mg/dL Normal 0.20-1.00 [facility] Comment on above: Result Comment: For patients on eltrombopag therapy, use of Dimension [place] TBIL is not recommended. Performed By: #### L 501.5200, L501.2300, L100.0100, L500.4050 ####[facility] [address] [place], [address] BUN/CRE 8.3 RATIO Low 10-20 [facility] Comment on above: Performed By: #### L 501.5200, L501.2300, L100.0100, L500.4050 ####[facility] [address] [place], [address] CA,Total 9.5 mg/dL Normal 8.5-10.1 [facility] Comment on above: Performed By: #### L 501.5200, L501.2300, L100.0100, L500.4050 ####[facility] [address] [place], [address] Chloride [Moles/Vol] 101 mmol/L Normal 98-107 [facility] Comment on above: Performed By: #### L 501.5200, L501.2300, L100.0100, L500.4050 ####[facility] [address] [place], [address] CO2 [Moles/Vol] 28.0 mmol/L Normal 21.0-32.0 [facility] Comment on above: Performed By: #### L 501.5200, L501.2300, L100.0100, L500.4050 ####[facility] [address] [place], [address] Creatinine [Mass/Vol] 4.20 mg/dL High 0.70-1.30 [facility] Comment on above: Result Comment: The validity of the calculated GFR GFRAA in patients over70 years has not been determined. Clinical correlation isessential. Performed By: #### L 501.5200, L501.2300, L100.0100, L500.4050 ####[facility] [address] [place], [address] ECRCL 17.77 ml/min Normal [facility] Comment on above: Performed By: #### L 501.5200, L501.2300, L100.0100, L500.4050 ####[facility] [address] [place], [address] EST GFR - AA 18 mL/min Low >60 [facility] Comment on above: Result Comment: Afri can [place] GFR Calc Performed By: #### L 501.5200, L501.2300, L100.0100, L500.4050 ####[facility] [address] [place], [address] GAP 7 Normal 5-15 [facility] Comment on above: Performed By: #### L 501.5200, L501.2300, L100.0100, L500.4050 ####[facility] [address] [place], [address] GFR/1.73 sq M.predicted among non-blacks MDRD (S/P/Bld) [Vol rate/Area] 15 mL/min/{1.73_m2} Low >60 [facility] Comment on above: Result Comment: Non- GFR Calc Performed By: #### L 501.5200, L501.2300, L100.0100, L500.4050 ####[facility] [address] [place], [address] Globulin (S) [Mass/Vol] 4.6 g/dL High 2.2-4.2 [facility] Comment on above: Performed By: #### L 501.5200, L501.2300, L100.0100, L500.4050 ####[facility] [address] [place], [address] Glucose [Mass/Vol] 201 mg/dL High 74-106 [facility] Comment on above: Result Comment: Gluc ose result greater than or equal to 200 mg/dLsuggests DIABETES MELLITUS per A.D.A. criteria. Performed By: #### L 501.5200, L501.2300, L100.0100, L500.4050 ####[facility] [address] [place], [address] Potassium [Moles/Vol] 4.6 mmol/L Normal 3.5-5.1 [facility] Comment on above: Performed By: #### L 501.5200, L501.2300, L100.0100, L500.4050 ####[facility] [address] [place], [address] Sodium [Moles/Vol] 136 mmol/L Normal 136-145 [facility] Comment on above: Performed By: #### L 501.5200, L501.2300, L100.0100, L500.4050 ####[facility] [address] [place], [address] T PROT 7.9 g/dL Normal 6.4-8.2 [facility] Comment on above: Performed By: #### L 501.5200, L501.2300, L100.0100, L500.4050 ####[facility] [address] [place], [address] Urea nitrogen [Mass/Vol] 35 mg/dL High 7-18 [facility] Comment on above: Performed By: #### L 501.5200, L501.2300, L100.0100, L500.4050 ####[facility] [address] [place], [address] Consultation - Nephrologyon 06-04-2024 Consultation - Nephrology Normal [facility] Gram Stainon 06-04-2024 GS Acceptable Specimen? Yes (<25 Epithelial cells per/lpf) Gram Stain 2+ White Blood Cells 1+ Epithelial cells 1+ Gram positive cocci 1+ Gram positive rods Normal [facility] Comment on above: Performed By: #### M 100.2000, M100.2400 ####[facility] [address] [place], [address] Laboratory - Chemistry and C hemistry - challengeOrdered By: Elana Degroot on 06-04-2024 AST [Catalytic activity/Vol] 20 U/L 15-37 [facility] Magnesiumon 06-04-2024 Magnesium [Mass/Vol] 2.4 mg/dL Normal 1.6-2.6 [facility] Comment on above: Performed By: #### L 501.5200, L501.2300, L100.0100, L500.4050 ####[facility] [address] [place], [place], [address] Phosphoruson 06-04-2024 Phosphate [Mass/Vol] 3.0 mg/dL Normal 2.5-4.9 [facility] Comment on above: Performed By: #### L 501.5200, L501.2300, L100.0100, L500.4050 ####[facility] [address] [place], [place], [id number] Serum globulin measurementOr dered By: Elana Degroot on 06-04-2024 Globulin (S) [Mass/Vol] 4.6 g/dL High 2.2-4.2 [facility] Serum or plasma alanine saldivar otransferase (ALT) measurementOrdered By: Elana Degroot on 06-04-2024 ALT [Catalytic activity/Vol] 16 U/L 16-61 [facility] Serum or plasma albumin cris urement (mass/volume)Ordered By: Elana Degroot on 06-04-2024 Albumin [Mass/Vol] 3.3 g/dL 3.2-5.0 [facility] Serum or plasma alkaline tina sphatase measurementOrdered By: Elana Degroot on 06-04-2024 ALP [Catalytic activity/Vol] 97 U/L 45-117 [facility] Total proteinOrdered By: Bianca Degroot on 06-04-2024 Protein [Mass/Vol] 7.9 g/dL 6.4-8.2 [facility] 12 Lead EKGon 06-03-2024 12 Lead EKG Normal [facility] Basic Metabolic Profile (BMP )on 06-03-2024 BUN/CRE 7.5 RATIO Low 10-20 [facility] Comment on above: Order Comment: 1Y Performed By: #### L 100.0100, L501.5425, L500.2500 ####[facility] [address] [place], [address] CA,Total 9.7 mg/dL Normal 8.5-10.1 [facility] Comment on above: Order Comment: 1Y Performed By: #### L 100.0100, L501.5425, L500.2500 ####[facility] [address] [place], [address] Chloride [Moles/Vol] 100 mmol/L Normal 98-107 [facility] Comment on above: Order Comment: 1Y Performed By: #### L 100.0100, L501.5425, L500.2500 ####[facility] [address] [place], [address] CO2 [Moles/Vol] 32.0 mmol/L Normal 21.0-32.0 [facility] Comment on above: Order Comment: 1Y Performed By: #### L 100.0100, L501.5425, L500.2500 ####[facility] [address] [place], [address] Creatinine [Mass/Vol] 2.81 mg/dL High 0.70-1.30 [facility] Comment on above: Order Comment: 1Y Result Comment: The validity of the calculated GFR GFRAA in patients over70 years has not been determined. Clinical correlation isessential. Performed By: #### L 100.0100, L501.5425, L500.2500 ####[facility] [address] [place], [address] ECRCL 26.91 ml/min Normal [facility] Comment on above: Order Comment: 1Y Performed By: #### L 100.0100, L501.5425, L500.2500 ####[facility] [address] [place], [address] EST GFR - AA 28 mL/min Low >60 [facility] Comment on above: Order Comment: 1Y Result Comment: Afri can [place] GFR Calc Performed By: #### L 100.0100, L501.5425, L500.2500 ####[facility] [address] [place], [address] GAP 5 Normal 5-15 [facility] Comment on above: Order Comment: 1Y Performed By: #### L 100.0100, L501.5425, L500.2500 ####[facility] [address] [place], [address] GFR/1.73 sq M.predicted among non-blacks MDRD (S/P/Bld) [Vol rate/Area] 23 mL/min/{1.73_m2} Low >60 [facility] Comment on above: Order Comment: 1Y Result Comment: Non- GFR Calc Performed By: #### L 100.0100, L501.5425, L500.2500 ####[facility] [address] [place], [address] Glucose [Mass/Vol] 85 mg/dL Normal 74-106 [facility] Comment on above: Order Comment: 1Y Performed By: #### L 100.0100, L501.5425, L500.2500 ####[facility] [address] [place], [address] Potassium [Moles/Vol] 4.6 mmol/L Normal 3.5-5.1 [facility] Comment on above: Order Comment: 1Y Performed By: #### L 100.0100, L501.5425, L500.2500 ####[facility] [address] [place], [address] Sodium [Moles/Vol] 137 mmol/L Normal 136-145 [facility] Comment on above: Order Comment: 1Y Performed By: #### L 100.0100, L501.5425, L500.2500 ####[facility] [address] [place], [address] Urea nitrogen [Mass/Vol] 21 mg/dL High 7-18 [facility] Comment on above: Order Comment: 1Y Performed By: #### L 100.0100, L501.5425, L500.2500 ####[facility] [address] [place], [address] CBC W/Diff, Automatedon 01-0 2-2024 Absolute Lymph 0.81 X10 3/uL Low 0.83-4.51 [facility] Comment on above: Performed By: #### L 100.0100, L501.5425, L500.2500 ####[facility] [address] [place], [address] Absolute Neut 4.8 X10 3/uL Normal 2.0-7.7 [facility] Comment on above: Performed By: #### L 100.0100, L501.5425, L500.2500 ####[facility] [address] [place], [address] Basophils/100 WBC (Bld) 0.9 % Normal 0-1 [facility] Comment on above: Performed By: #### L 100.0100, L501.5425, L500.2500 ####[facility] [address] [place], [address] Eosinophils/100 WBC (Bld) 5.2 % High 0-5 [facility] Comment on above: Performed By: #### L 100.0100, L501.5425, L500.2500 ####[facility] [address] [place], [address] Erythrocyte distribution width (RBC) [Ratio] 15.6 % High 11.6-14.6 [facility] Comment on above: Performed By: #### L 100.0100, L501.5425, L500.2500 ####[facility] [address] [place], [address] Hematocrit (Bld) [Volume fraction] 42.1 % Normal 40-54 [facility] Comment on above: Performed By: #### L 100.0100, L501.5425, L500.2500 ####[facility] [address] [place], [address] Hemoglobin (Bld) [Mass/Vol] 13.0 g/dL Normal 13.0-16.5 [facility] Comment on above: Performed By: #### L 100.0100, L501.5425, L500.2500 ####[facility] [address] [place], [address] IG% 0.400 Normal 0.0-0.9 [facility] Comment on above: Result Comment: IG% - Immature Granulocytes (promyelocytes, myelocytes andmetamyelocytes) > 1% indicates that a LEFT SHIFT is Present. Performed By: #### L 100.0100, L501.5425, L500.2500 ####[facility] [address] [place], [address] Lymphocytes/100 WBC (Bld) 12.1 % Low 19-41 [facility] Comment on above: Performed By: #### L 100.0100, L501.5425, L500.2500 ####[facility] [address] [place], [address] MCH (RBC) [Entitic mass] 29.4 pg Normal 27.0-32.0 [facility] Comment on above: Performed By: #### L 100.0100, L501.5425, L500.2500 ####[facility] [address] [place], [address] MCHC (RBC) [Mass/Vol] 30.9 g/dL Low 32-36 [facility] Comment on above: Performed By: #### L 100.0100, L501.5425, L500.2500 ####[facility] [address] [place], [address] MCV (RBC) [Entitic vol] 95.2 fL High 80-94 [facility] Comment on above: Performed By: #### L 100.0100, L501.5425, L500.2500 ####[facility] [address] [place], [address] Monocytes/100 WBC (Bld) 9.1 % Normal 0-10 [facility] Comment on above: Performed By: #### L 100.0100, L501.5425, L500.2500 ####[facility] [address] [place], [address] Neutrophils/100 WBC (Bld) 72.3 % High 47-70 [facility] Comment on above: Performed By: #### L 100.0100, L501.5425, L500.2500 ####[facility] [address] [place], [address] Nucleated RBC (Bld) [#/Vol] 0 10*3/uL Normal 0-5 [facility] Comment on above: Performed By: #### L 100.0100, L501.5425, L500.2500 ####[facility] [address] [place], [address] Platelet mean volume (Bld) [Entitic vol] 10.2 fL Normal 6.2-12.0 [facility] Comment on above: Performed By: #### L 100.0100, L501.5425, L500.2500 ####[facility] [address] [place], [address] Platelets (Bld) [#/Vol] 153 10*3/uL Normal 150-450 [facility] Comment on above: Performed By: #### L 100.0100, L501.5425, L500.2500 ####[facility] [address] [place], [address] RBC (Bld) [#/Vol] 4.42 10*6/uL Low 4.6-6.2 [facility] Comment on above: Performed By: #### L 100.0100, L501.5425, L500.2500 ####[facility] [address] [place], [address] RDW SD 53.9 fl High 35.1-43.9 [facility] Comment on above: Performed By: #### L 100.0100, L501.5425, L500.2500 ####[facility] [address] [place], [address] WBC (Bld) [#/Vol] 6.7 10*3/uL Normal 4.4-11.0 [facility] Comment on above: Performed By: #### L 100.0100, L501.5425, L500.2500 ####[facility] [address] [place], [address] Chest PA and Lateralon 06-03 Chest PA and Lateral Normal [facility] Chest without Contraston Chest without Contrast Normal [facility] Emergency Department Summary on 06-03-2024 Emergency Department Summary Normal [facility] Gram stainOrdered By: Olamide Degroot on 06-03-2024 Microscopic observation Gram stain Nom (Unsp spec) [facility] H AND P Exam - Hospitaliston 06-03-2024 H&P Exam - Hospitalist Normal [facility] Influenza virus A and B and SARS-CoV-2 (COVID-19) and Respiratory syncytial virus RNAOrdered By: Jyoti Hernadnez on 06-03-2024 SARS-CoV-2 (COVID-19) RNA JACK+probe Ql (Unsp spec) RSV Abnormal [facility] L501.4020on 06-03-2024 TROPONIN-I HS 10 pg/mL Normal 3.0-78.0 [facility] Comment on above: Result Comment: Plea se Note: New Test Units and Gender Specific Reference Ranges. For more information see Policy Stat Procedure [place] High Sensitivity Troponin (TNIH) and attachments. Performed By: #### L 501.4020 ####[facility] [address] [place], [address] L501.5425on 06-03-2024 TROPONIN-I HS 10 pg/mL Normal 3.0-78.0 [facility] Comment on above: Order Comment: 1Y Result Comment: Plea se Note: New Test Units and Gender Specific Reference Ranges. For more information see Policy Stat Procedure [place] High Sensitivity Troponin (TNIH) and attachments. Performed By: #### L 100.0100, L501.5425, L500.2500 ####[facility] [address] [place], [address] M100.678on 06-03-2024 M100.678 Normal [facility] Comment on above: Performed By: #### M 100.678 ####[facility] [address] [place], [address] Microorganism identified Cx Nom (Unsp spec)Ordered By: Elana Degroot on 06-03-2024 Respiratory Culture [facility] Troponin IOrdered By: Jyoti Hernandez on 06-03-2024 Troponin I High Sensitivity 10 pg/mL 3.0-78.0 [facility] Comment on above: Please Note: [place] t Units and Gender Specific Reference Ranges. For more information see Policy Stat Procedure [place] High Sensitivity Troponin (TNIH) and attachments. Bacteria identifiedon 2023 Bacteria identified Cx Nom (U) Test: Urine Culture Specimen Source: Clean Catch/Voided Specimen Type: Urine Specimen Date: 05/12/2024 1000 Result Date: 05/14/2024 0737 Result Status: Final result Abnormal: No Resulting Lab: [facility] [address] [facility] [address] CULTURE Growth indicates contamination with periurethral sunny. Repeat culture if clinically indicated. Normal [facility] Comment on above: Performed By: #### 2 4321-2 #### FERNANDO CARBAJAL ([id number]) [facility] ([facility]) [address] [place] [address] Urinalysis complete panel (U )on 05-12-2024 Appearance (U) Ex.Turbid Normal Clear [facility] Comment on above: Order Comment: OVER is reported when the result is greater than the clinically reportable range. Performed By: #### 2 4321-2 #### FERNANDO CARBAJAL ([id number]) [facility] ([facility]) [address] [place] [address] Bilirubin (U) [Mass/Vol] Negative Normal NEGATIVE [facility] Comment on above: Order Comment: OVER is reported when the result is greater than the clinically reportable range. Performed By: #### 2 4321-2 #### FERNANDO CARBAJAL ([id number]) [facility] ([facility]) [address] [place] [address] Color (U) Dark-Brown Normal Light-Yellow , Yellow, Dark-Yellow [facility] Comment on above: Order Comment: OVER is reported when the result is greater than the clinically reportable range. Performed By: #### 2 4321-2 #### FERNANDO CARBAJAL ([id number]) [facility] ([facility]) [address] [place] [address] Glucose Auto test strip (U) [Mass/Vol] Normal Normal Normal [facility] Comment on above: Order Comment: OVER is reported when the result is greater than the clinically reportable range. Performed By: #### 2 4321-2 #### FERNANDO CARBAJAL ([id number]) [facility] ([facility]) [address] [place], [place] [address] Ketones (U) [Mass/Vol] Negative Normal [facility]GATIVE [facility] Comment on above: Order Comment: OVER is reported when the result is greater than the clinically reportable range. Performed By: #### 2 4321-2 #### FERNANDO CARBAJAL ([id number]) [facility] ([facility]) [address] [place] [address] Leukocyte esterase Auto test strip Ql (U) 500 Doris/???L Abnormal NEGATIVE [facility] Comment on above: Order Comment: OVER is reported when the result is greater than the clinically reportable range. Performed By: #### 2 4321-2 #### FERNANDO CARBAJAL ([id number]) [facility] ([facility]) [address] [place] [address] Nitrite Auto test strip Ql (U) Negative Normal NEGATIVE [facility] Comment on above: Order Comment: OVER is reported when the result is greater than the clinically reportable range. Performed By: #### 2 4321-2 #### FERNANDO CARBAJAL ([id number]) [facility] ([facility]) [address] [place] [address] pH (U) 8.5 [pH] Normal 5.0, 5.5, 6.0, 6.5, 7.0, 7.5, 8.0 [facility] Comment on above: Order Comment: OVER is reported when the result is greater than the clinically reportable range. Performed By: #### 2 4321-2 #### FERNANDO CARBAJAL ([id number]) [facility] ([facility]) [address] [place] [address] Protein (U) [Mass/Vol] 200 (2+) Abnormal NEGAT AUDI, 10 (TRACE), 20 (TRACE) [facility] Comment on above: Order Comment: OVER is reported when the result is greater than the clinically reportable range. Performed By: #### 2 4321-2 #### FERNANDO CARBAJAL ([id number]) [facility] ([facility]) [address] [place] [address] RBC (U) [#/Vol] OVER (3+) Abnormal NEGATIVE [facility] Comment on above: Order Comment: OVER is reported when the result is greater than the clinically reportable range. Performed By: #### 2 4321-2 #### FERNANDO CARBAJAL ([id number]) [facility] ([facility]) [address] [place] [address] Specific gravity (U) [Rel density] 1.009 Normal 1.005-1.035 [facility] Comment on above: Order Comment: OVER is reported when the result is greater than the clinically reportable range. Performed By: #### 2 4321-2 #### FERNANDO CARBAJAL ([id number]) [facility] ([facility]) [address] [place] [address] Urobilinogen (U) [Mass/Vol] Normal Normal Normal [facility] Comment on above: Order Comment: OVER is reported when the result is greater than the clinically reportable range. Performed By: #### 2 4321-2 #### FERNANDO CARBAJAL ([id number]) [facility] ([facility]) [address] [place] [address] Urinalysis microscopic panel Auto Ql (U)on 05-12-2024 Bacteria Auto (Urine sed) [#/Area] 2+ /HPF Abnormal NONE SEEN [facility] Comment on above: Performed By: #### 2 4321-2 #### FERNANDO CARBAJAL ([id number]) [facility] ([facility]) [address] [place] [address] Epithelial cells.squamous Auto (Urine sed) [#/Area] 1-9 (SPARSE) Normal Reference range not established. [facility] Comment on above: Performed By: #### 2 4321-2 #### FERNANDO CARBAJAL ([id number]) [facility] ([facility]) [address] [place], [place] [address] Leukocyte clumps Auto (Urine sed) [#/Area] MANY Normal Reference range not established. [facility] Comment on above: Performed By: #### 2 4321-2 #### FERNANDO CARBAJAL ([id number]) [facility] ([facility]) [address] [place], [place] [address] RBC Auto (Urine sed) [#/Area] >20 Abnormal NONE, 1-2, 3-5 [facility] Comment on above: Performed By: #### 2 4321-2 #### FERNANDO CARBAJAL ([id number]) [facility] ([facility]) [address] [place], [place] [address] WBC Auto (Urine sed) [#/Area] >50 Abnormal 1-5, NONE [facility] Comment on above: Performed By: #### 2 4321-2 #### FERNANDO CARBAJAL ([id number]) [facility] ([facility]) [address] [place] [address] Bacteria identifiedon 2023 Bacteria identified Cx Nom (Bld) Test: Blood Culture Specimen Source: Peripheral Venipuncture Specimen Type: Blood culture Specimen Date: 05/11/20242138 Result Date: 05/16/20241100 Result Status: Final result Abnormal: No Resulting Lab: [facility] [address] [place] [address] CULTURE No growth at 4 days - FINAL REPORT [facility] Comment on above: Performed By: #### 2 4321-2 #### FERNANDO CARBAJAL ([id number]) [facility] ([facility]) [address] [place] [address] Bacteria identified Cx Nom (Bld) Test: Blood Culture Specimen Source: Peripheral Venipuncture Specimen Type: Blood culture Specimen Date: 05/11/20242130 Result Date: 05/16/20241100 Result Status: Final result Abnormal: No Resulting Lab: [facility] [address] [place] [address] CULTURE No growth at 4 days - FINAL REPORT [facility] Comment on above: Performed By: #### 2 4321-2 #### FERNANDO CARBAJAL ([id number]) [facility] ([facility]) [address] [place] [address] Bacteria identified Cx Nom (U) Test: Urine Culture Specimen Source: Clean Catch/Voided Specimen Type: Urine Specimen Date: 05/11/20242115 Result Date: 05/13/20241018 Result Status: Final result Abnormal: No Resulting Lab: [facility] [address] [place] [address] CULTURE Clinically insignificant growth based on current clinical standards. Normal [facility] Comment on above: Performed By: #### 2 4321-2 #### FERNANDO CARBAJAL ([id number]) [facility] ([facility]) [address] [place] [address] Basic metabolic 2000 panelon 05-11-2024 Anion gap [Moles/Vol] 16 mmol/L 10 - 2 0 mmol/L [facility] Calcium [Mass/Vol] 8.6 mg/dL 8.6 - 10. 3 mg/dL [facility] Chloride [Moles/Vol] 103 mmol/L 98 - 10 7 mmol/L [facility] CO2 [Moles/Vol] 25 mmol/L 21 - 32 mmol/L [facility] Creatinine [Mass/Vol] 4.77 mg/dL High 0.50 - 1.30 mg/dL [facility] GFR/1.73 sq M.predicted among non-blacks MDRD (S/P/Bld) [Vol rate/Area] 12 mL/min/{1.73_m2} Low - PINF [facility] Comment on above: Calculations of alejandra mated GFR are performed using the 2020 CKD-EPI Study Refit equation without the race variable for the IDMS-Traceable creatinine methods. https://jasn.asnjournals.org/content//ASN.23652 68605 Glucose [Mass/Vol] 96 mg/dL 74 - 99 mg/dL [facility] Interpretation and review of laboratory results Abnormal [facility] Potassium [Moles/Vol] 4.6 mmol/L 3.5 - 5.3 mmol/L [facility] Sodium [Moles/Vol] 139 mmol/L 136 - 145 mmol/L [facility] Urea nitrogen [Mass/Vol] 49 mg/dL High 6 - 23 mg/dL [facility] Anion gap [Moles/Vol] 16 mmol/L Normal 10-20 [facility] Comment on above: Performed By: #### 1 9123-9 #### FERNANDO CARBAJAL ([id number]) [facility] ([facility]) [address] [place] [address] Calcium [Mass/Vol] 8.6 mg/dL Normal 8.6-10.3 [facility] Comment on above: Performed By: #### 1 9123-9 #### FERNANDO CARBAJAL ([id number]) [facility] ([facility]) [facility] [place] [address] Chloride [Moles/Vol] 103 mmol/L Normal 98-107 [facility] Comment on above: Performed By: #### 1 9123-9 #### FERNANDO CARBAJAL ([id number]) [facility] ([facility]) [address] [place] [address] CO2 [Moles/Vol] 25 mmol/L Normal 21-32 [facility] Comment on above: Performed By: #### 1 9123-9 #### FERNANDO CARBAJAL ([id number]) [facility] ([facility]) [address] [place] [address] Creatinine [Mass/Vol] 4.77 mg/dL High 0.50-1.30 [facility] Comment on above: Performed By: #### 1 9123-9 #### FERNANDO CARBAJAL ([id number]) [facility] ([facility]) [address] [place] [address] Glomerular filtration rate/1.73 sq M.predicted 12 mL/min/1.73m*2 Low >60 [facility] Comment on above: Result Comment: Calc ulations of estimated GFR are performed using the 2020 CKD-EPI Study Refit equation without the race variable for the IDMS-Traceable creatinine methods. https://jasn.asnjournals.org/content//ASN.21264 76946 Performed By: #### 1 9123-9 #### FENRANDO CARBAJAL ([id number]) [facility] ([facility]) [address] [place] [address] Glucose [Mass/Vol] 96 mg/dL Normal 74-99 [facility] Comment on above: Performed By: #### 1 9123-9 #### FERNANDO CARBAJAL ([id number]) [facility] ([facility]) [address] [place] [address] Potassium [Moles/Vol] 4.6 mmol/L Normal 3.5-5.3 [facility] Comment on above: Performed By: #### 1 9123-9 #### FERNANDO CARBAJAL ([id number]) [facility] ([facility]) [address] [place], [place] [address] Sodium [Moles/Vol] 139 mmol/L Normal 136-145 [facility] Comment on above: Performed By: #### 1 9123-9 #### FERNANDO CARBAJAL ([id number]) [facility] ([facility]) [address] [place] [address] Urea nitrogen [Mass/Vol] 49 mg/dL High 6-23 [facility] Comment on above: Performed By: #### 1 9123-9 #### FERNANDO CARBAJAL ([id number]) [facility] ([facility]) [address] [place], [place] [address] CBC W Auto Differential pane l (Bld)on 05-11-2024 Basophils (Bld) [#/Vol] 0.07 10*3/uL [facility] Basophils/100 WBC (Bld) 0.9 % 0.0 - 2.0 % [facility] Eosinophils (Bld) [#/Vol] 0.17 10*3/uL [facility] Eosinophils/100 WBC (Bld) 2.1 % 0.0 - 6.0 % [facility] Erythrocyte distribution width (RBC) [Ratio] 15.1 % High 11.5 - 14.5 % [facility] Hematocrit (Bld) [Volume fraction] 40.4 % Low 41.0 - 52.0 % [facility] Hemoglobin (Bld) [Mass/Vol] 12.7 g/dL Low 13.5 - 17.5 g/dL [facility] Immature granulocytes (Bld) [#/Vol] 0.02 10*3/uL [facility] Immature granulocytes/100 WBC (Bld) 0.2 % 0.0 - 0.9 % [facility] Comment on above: Immature Granulocyte Count (IG) includes promyelocytes, myelocytes and metamyelocytes but does not include bands. Percent differential counts (%) should be interpreted in the context of the absolute cell counts (cells/UL). Interpretation and review of laboratory results Abnormal [facility] Lymphocytes (Bld) [#/Vol] 1.5 10*3/uL [facility] Lymphocytes/100 WBC (Bld) 18.2 % 13.0 - 44.0 % [facility] MCH (RBC) [Entitic mass] 30.3 pg 26.0 - 34.0 pg [facility] MCHC (RBC) [Mass/Vol] 31.4 g/dL Low 32.0 - 36.0 g/dL [facility] MCV (RBC) [Entitic vol] 96 fL 80 - 100 fL [facility] Monocytes (Bld) [#/Vol] 0.62 10*3/uL [facility] Monocytes/100 WBC (Bld) 7.5 % 2.0 - 10.0 % [facility] Neutrophils (Bld) [#/Vol] 5.84 10*3/uL High [facility] Comment on above: Percent differential counts (%) should be interpreted in the context of the absolute cell counts (cells/uL). Neutrophils/100 WBC (Bld) 71.1 % 40.0 - 80.0 % [facility] Nucleated RBC/100 WBC (Bld) [Ratio] 0 % [facility] Platelets (Bld) [#/Vol] 180 10*3/uL [facility] RBC (Bld) [#/Vol] 4.19 10*6/uL Low [facility] WBC (Bld) [#/Vol] 8.2 10*3/uL [facility] Basophils (Bld) [#/Vol] 0.07 x10*3/uL Normal 0.00-0.10 [facility] Comment on above: Performed By: #### 1 9123-9 #### KING RAVEN ([id number]) [facility] ([facility]) [address] [place] [address] Basophils/100 WBC (Bld) 0.9 % Normal 0.0-2.0 [facility] Comment on above: Performed By: #### 1 9123-9 #### FERNANDO CARBAJAL ([id number]) [facility] ([facility]) [address] [place] [address]951 Eosinophils (Bld) [#/Vol] 0.17 x10*3/uL Normal 0.00-0.40 [facility] Comment on above: Performed By: #### 1 9123-9 #### FERNANDO CARBAJAL ([id number]) [facility] ([facility]) [address] [place] [address] 86166 Eosinophils/100 WBC (Bld) 2.1 % Normal 0.0-6.0 [facility] Comment on above: Performed By: #### 1 9123-9 #### FERNANDO CARBAJAL ([id number]) [facility] ([facility]) [address] [place] [address] Erythrocyte distribution width (RBC) [Ratio] 15.1 % High 11.5-14.5 [facility] Comment on above: Performed By: #### 1 9123-9 #### FERNANDO CARBAJAL ([id number]) [facility] ([facility]) [address] [place] [address] Hematocrit (Bld) [Volume fraction] 40.4 % Low 41.0-52.0 [facility] Comment on above: Performed By: #### 1 9123-9 #### FERNANDO CARBAJAL ([id number]) [facility] ([facility]) [address] [place] [address] [phone] Hemoglobin (Bld) [Mass/Vol] 12.7 g/dL Low 13.5-17.5 [facility] Comment on above: Performed By: #### 1 9123-9 #### FERNANDO CARBAJAL ([id number]) [facility] ([facility]) [address] [place] [address] 63932 Immature granulocytes (Bld) [#/Vol] 0.02 x10*3/uL Normal 0.00-0.50 [facility] Comment on above: Performed By: #### 1 9123-9 #### FERNANDO CARBAJAL ([id number]) [facility] ([facility]) [address] [place] [address] 04446 Immature granulocytes/100 WBC (Bld) 0.2 % Normal 0.0-0.9 [facility] Comment on above: Result Comment: Lubna ture Granulocyte Count (IG) includes promyelocytes, myelocytes and metamyelocytes but does not include bands. Percent differential counts (%) should be interpreted in the context of the absolute cell counts (cells/UL). Performed By: #### 1 9123-9 #### FERNANDO CARBAJAL ([id number]) [facility] ([facility]) [address] [place] [address] Lymphocytes (Bld) [#/Vol] 1.50 x10*3/uL Normal 0.80-3.00 [facility] Comment on above: Performed By: #### 1 9123-9 #### FERNANDO CARBAJAL ([id number]) [facility] ([facility]) [address] [place] [address] 50186 Lymphocytes/100 WBC (Bld) 18.2 % Normal 13.0-44.0 [facility] Comment on above: Performed By: #### 1 9123-9 #### FERNANDO CARBAJAL ([id number]) [facility] ([facility]) [address] [place] [address] 42552 MCH (RBC) [Entitic mass] 30.3 pg Normal 26.0-34.0 [facility] Comment on above: Performed By: #### 1 9123-9 #### FERNANDO CARBAJAL ([id number]) [facility] ([facility]) [address] [place] [address] 87497 MCHC (RBC) [Mass/Vol] 31.4 g/dL Low 32.0-36.0 [facility] Comment on above: Performed By: #### 1 9123-9 #### FERNANDO CARBAJAL ([id number]) [facility] ([facility]) [address] [place] [address] 55916 MCV (RBC) [Entitic vol] 96 fL Normal 80-100 [facility] Comment on above: Performed By: #### 1 9123-9 #### FERNANDO CARBAJAL ([id number]) [facility] ([facility]) [address] [place] [address] 63036 Monocytes (Bld) [#/Vol] 0.62 x10*3/uL Normal 0.05-0.80 [facility] Comment on above: Performed By: #### 1 9123-9 #### FERNANDO CARBAJAL ([id number]) [facility] ([facility]) [address] [place] [address] 90694 Monocytes/100 WBC (Bld) 7.5 % Normal 2.0-10.0 [facility] Comment on above: Performed By: #### 1 9123-9 #### FERNANDO CARBAJAL ([id number]) [facility] ([facility]) [address] [place] [address] 18102 Neutrophils (Bld) [#/Vol] 5.84 x10*3/uL High 1.60-5.50 [facility] Comment on above: Result Comment: Perc ent differential counts (%) should be interpreted in the context of the absolute cell counts (cells/uL). Performed By: #### 1 9123-9 #### FERNANDO CARBAJAL ([id number]) [facility] ([facility]) [address] [place] [address] 24875 Neutrophils/100 WBC (Bld) 71.1 % Normal 40.0-80.0 [facility] Comment on above: Performed By: #### 1 9123-9 #### FERNANDO CARBAJAL ([id number]) [facility] ([facility]) [address] [place] [address] 98106 Nucleated RBC/100 WBC (Bld) [Ratio] 0.0 /100 WBCs Normal 0.0-0.0 [facility] Comment on above: Performed By: #### 1 9123-9 #### FERNANDO CARBAJAL ([id number]) [facility] ([facility]) [address] [place] [address] 42334 Platelets (Bld) [#/Vol] 180 x10*3/uL Normal 150-450 [facility] Comment on above: Performed By: #### 1 9123-9 #### KING RAVEN ([id number]) [facility] ([facility]) [address] [place] [address] RBC (Bld) [#/Vol] 4.19 x10*6/uL Low 4.50-5.90 [facility] Comment on above: Performed By: #### 1 9123-9 #### FERNANDO CARBAJAL ([id number]) [facility] ([facility]) [facility] [place] [address] WBC (Bld) [#/Vol] 8.2 x10*3/uL Normal 4.4-11.3 [facility] Comment on above: Performed By: #### 1 9123-9 #### KING SHYLAKAYLA ([id number]) [facility] ([facility]) [address] [place] [address] CT ABDOMEN [facility]EL[facility] ABDOMEN PELVIS WO IV CONTRAST Interpreted By: Yvonne Clemons, STUDY: CT ABDOMEN PELVIS WO IV CONTRAST; 05/11/2024 7:20 pm INDICATION: Signs/Symptoms:pelvic pain. COMPARISON: CT abdomen and pelvis 03/05/2024. ACCESSION NUMBER(S): [id number] ORDERING CLINICIAN: SHEY WHITE TECHNIQUE: CT of the abdomen and pelvis was performed with no contrast administration. Coronal and sagittal reformats were obtained. FINDINGS: LOWER CHEST: No focal consolidation or pleural effusion. ABDOMEN: LIVER: Unremarkable unenhanced appearance. BILE DUCTS: No obvious dilation. GALLBLADDER: Present. PANCREAS: No peripancreatic inflammatory changes. SPLEEN: Unremarkable unenhanced appearance. ADRENAL GLANDS: Unremarkable. KIDNEYS AND URETERS: There is a right-sided double-J ureteral stent. Interval resolution of the right hydronephrosis. There is soft tissue stranding at right renal pelvis and along the right ureter. There is a 1.2 cm cortical exophytic cyst at the right kidney. There is cortical thinning at the left kidney with multiple cysts. Interval removal of the left-sided nephrostomy tube. There is moderate left hydroureteronephrosis. There are left renal calculi measuring up to 6 mm. There is a 3 mm calcification adjacent to the left ureterovesical junction. BOWEL: The stomach is mostly decompressed. No bowel obstruction. There is colonic diverticulosis with no CT evidence for acute diverticulitis. There is a large stool ball distending the rectum. The appendix is normal. VESSELS: Atherosclerotic calcifications at the abdominal aorta and its branches. No abdominal aortic aneurysm PELVIS: The pelvis is partially obscured by streak artifact from the left hip prosthesis. The urinary bladder is decompressed by a Jamison catheter. There is soft tissue stranding at urinary bladder. No pelvic mass. PERITONEUM/RETROPERITO NEUM/LYMPH NODES: No free fluid or free air. No retroperitoneal hemorrhage. No pathologically enlarged lymph nodes are identified. ABDOMINAL WALL: The abdominal wall soft tissues are within normal limits. BONE AND SOFT TISSUE: Status post left hip arthroplasty. Multilevel degenerative changes at the spine. IMPRESSION 1. Moderate left hydroureteronephrosis. Left nephrolithiasis. 3 mm calcification adjacent to the left UVJ, may represent a phlebolith versus a distal ureteral calculus. 2. Right-sided double-J ureteral stent. Interval resolution of the right hydronephrosis. Inflammatory changes at the right renal pelvis, along the right ureter and at urinary bladder. Please correlate with laboratory values/urinalysis to evaluate for ascending urinary tract infection with cystitis, ureteritis and pyelitis. 3. Colonic diverticulosis. 4. Large stool ball distending the rectum, please correlate for fecal impaction. MACRO: None. Signed by: Yvonne Clemons 05/11/2024 8:14 PM Dictation workstation: [id number] [facility] CT Abdomen WO contraston Interpreted By: Yvonne Clemons, STUDY: CT ABDOMEN PELVIS WO IV CONTRAST; 05/11/2024 7:20 pm INDICATION: Signs/Symptoms:pelvic pain. COMPARISON: CT abdomen and pelvis 03/05/2024. ACCESSION NUMBER(S): [id number] ORDERING CLINICIAN: SHEY WHITE TECHNIQUE: CT of the abdomen and pelvis was performed with no contrast administration. Coronal and sagittal reformats were obtained. FINDINGS: LOWER CHEST: No focal consolidation or pleural effusion. ABDOMEN: LIVER: Unremarkable unenhanced appearance. BILE DUCTS: No obvious dilation. GALLBLADDER: Present. PANCREAS: No peripancreatic inflammatory changes. SPLEEN: Unremarkable unenhanced appearance. ADRENAL GLANDS: Unremarkable. KIDNEYS AND URETERS: There is a right-sided double-J ureteral stent. Interval resolution of the right hydronephrosis. There is soft tissue stranding at right renal pelvis and along the right ureter. There is a 1.2 cm cortical exophytic cyst at the right kidney. There is cortical thinning at the left kidney with multiple cysts. Interval removal of the left-sided nephrostomy tube. There is moderate left hydroureteronephrosis. There are left renal calculi measuring up to 6 mm. There is a 3 mm calcification adjacent to the left ureterovesical junction. BOWEL: The stomach is mostly decompressed. No bowel obstruction. There is colonic diverticulosis with no CT evidence for acute diverticulitis. There is a large stool ball distending the rectum. The appendix is normal. VESSELS: Atherosclerotic calcifications at the abdominal aorta and its branches. No abdominal aortic aneurysm PELVIS: The pelvis is partially obscured by streak artifact from the left hip prosthesis. The urinary bladder is decompressed by a Jamison catheter. There is soft tissue stranding at urinary bladder. No pelvic mass. PERITONEUM/RETROPERITO NEUM/LYMPH NODES: No free fluid or free air. No retroperitoneal hemorrhage. No pathologically enlarged lymph nodes are identified. ABDOMINAL WALL: The abdominal wall soft tissues are within normal limits. BONE AND SOFT TISSUE: Status post left hip arthroplasty. Multilevel degenerative changes at the spine. IMPRESSION 1. Moderate left hydroureteronephrosis. Left nephrolithiasis. 3 mm calcification adjacent to the left UVJ, may represent a phlebolith versus a distal ureteral calculus. 2. Right-sided double-J ureteral stent. Interval resolution of the right hydronephrosis. Inflammatory changes at the right renal pelvis, along the right ureter and at urinary bladder. Please correlate with laboratory values/urinalysis to evaluate for ascending urinary tract infection with cystitis, ureteritis and pyelitis. 3. Colonic diverticulosis. 4. Large stool ball distending the rectum, please correlate for fecal impaction. MACRO: None. Signed by: Yvonne Clemons 05/11/2024 8:14 PM Dictation workstation: [id number] Yvonne Clemons, - 05/11/2024 Interpreted By: Yvonne Clemons, STUDY: CT ABDOMEN PELVIS WO IV CONTRAST; 05/11/2024 7:20 pm INDICATION: Signs/Symptoms:pelvic pain. COMPARISON: CT abdomen and pelvis 03/05/2024. ACCESSION NUMBER(S): [id number] ORDERING CLINICIAN: SHEY WHITE TECHNIQUE: CT of the abdomen and pelvis was performed with no contrast administration. Coronal and sagittal reformats were obtained. FINDINGS: LOWER CHEST: No focal consolidation or pleural effusion. ABDOMEN: LIVER: Unremarkable unenhanced appearance. BILE DUCTS: No obvious dilation. GALLBLADDER: Present. PANCREAS: No peripancreatic inflammatory changes. SPLEEN: Unremarkable unenhanced appearance. ADRENAL GLANDS: Unremarkable. KIDNEYS AND URETERS: There is a right-sided double-J ureteral stent. Interval resolution of the right hydronephrosis. There is soft tissue stranding at right renal pelvis and along the right ureter. There is a 1.2 cm cortical exophytic cyst at the right kidney. There is cortical thinning at the left kidney with multiple cysts. Interval removal of the left-sided nephrostomy tube. There is moderate left hydroureteronephrosis. There are left renal calculi measuring up to 6 mm. There is a 3 mm calcification adjacent to the left ureterovesical junction. BOWEL: The stomach is mostly decompressed. No bowel obstruction. There is colonic diverticulosis with no CT evidence for acute diverticulitis. There is a large stool ball distending the rectum. The appendix is normal. VESSELS: Atherosclerotic calcifications at the abdominal aorta and its branches. No abdominal aortic aneurysm PELVIS: The pelvis is partially obscured by streak artifact from the left hip prosthesis. The urinary bladder is decompressed by a Jamison catheter. There is soft tissue stranding at urinary bladder. No pelvic mass. PERITONEUM/RETROPERITO NEUM/LYMPH NODES: No free fluid or free air. No retroperitoneal hemorrhage. No pathologically enlarged lymph nodes are identified. ABDOMINAL WALL: The abdominal wall soft tissues are within normal limits. BONE AND SOFT TISSUE: Status post left hip arthroplasty. Multilevel degenerative changes at the spine. IMPRESSION 1. Moderate left hydroureteronephrosis. Left nephrolithiasis. 3 mm calcification adjacent to the left UVJ, may represent a phlebolith versus a distal ureteral calculus. 2. Right-sided double-J ureteral stent. Interval resolution of the right hydronephrosis. Inflammatory changes at the right renal pelvis, along the right ureter and at urinary bladder. Please correlate with laboratory values/urinalysis to evaluate for ascending urinary tract infection with cystitis, ureteritis and pyelitis. 3. Colonic diverticulosis. 4. Large stool ball distending the rectum, please correlate for fecal impaction. MACRO: None. Signed by: Yvonne Clemons 05/11/2024 8:14 PM Dictation workstation: [id number] [facility] Work Phone: Radiology Study observation (narrative) [facility] Work Phone: CT Abdomen WO contrastOrdere d By: Yvonne Clemons on 05-11-2024 [facility] Work Phone: Hepatic function 2000 panelo n 05-11-2024 Albumin BCP dye [Mass/Vol] 3.9 g/dL 3.4 - 5.0 g/dL [facility] ALP [Catalytic activity/Vol] 65 U/L 33 - 136 U/L [facility] ALT With P-5'-P [Catalytic activity/Vol] 10 U/L 10 - 52 U/L [facility] Comment on above: Patients treated wit h Sulfasalazine may generate falsely decreased results for ALT. AST With P-5'-P [Catalytic activity/Vol] 12 U/L 9 - 39 U/L [facility] Bilirubin [Mass/Vol] 0.5 mg/dL 0.0 - 1 .2 mg/dL [facility] Bilirubin.direct [Mass/Vol] 0.1 mg/dL 0.0 - 0.3 mg/dL [facility] Protein [Mass/Vol] 6.8 g/dL 6.4 - 8.2 g/dL [facility] Albumin BCP dye [Mass/Vol] 3.9 g/dL Normal 3.4-5.0 [facility] Comment on above: Performed By: #### 2 9501-2 #### FERNANDO CARBAJAL ([id number]) [facility] ([facility]) [address] [place] [address] ALP [Catalytic activity/Vol] 65 U/L Normal 33-136 [facility] Comment on above: Performed By: #### 2 5931-2 #### FERNANDO CARBAJAL ([id number]) [facility] ([facility]) [address] [place] [address] ALT With P-5'-P [Catalytic activity/Vol] 10 U/L Normal 10-52 [facility] Comment on above: Result Comment: Rhea ents treated with Sulfasalazine may generate falsely decreased results for ALT. Performed By: #### 2 4321-2 #### FERNANDO CARBAJAL ([id number]) [facility] ([facility]) [address] [place] [address] AST With P-5'-P [Catalytic activity/Vol] 12 U/L Normal 9-39 [facility] Comment on above: Performed By: #### 2 4321-2 #### FERNANDO CARBAJAL ([id number]) [facility] ([facility]) [address] [place] [address] Bilirubin [Mass/Vol] 0.5 mg/dL Normal 0.0-1.2 [facility] Comment on above: Performed By: #### 2 4321-2 #### FERNANDO CARBAJAL ([id number]) [facility] ([facility]) [address] [place] [address] Bilirubin.direct [Mass/Vol] 0.1 mg/dL Normal 0.0-0.3 [facility] Comment on above: Performed By: #### 2 4321-2 #### FERNANDO CARBAJAL ([id number]) [facility] ([facility]) [address] [place] [address] 49796 Protein [Mass/Vol] 6.8 g/dL Normal 6.4-8.2 [facility] Comment on above: Performed By: #### 2 4321-2 #### FERNANDO CARBAJAL ([id number]) [facility] ([facility]) [address] [place] [address] 04148 Lactateon 05-11-2024 Lactate [Moles/Vol] 0.8 mmol/L 0.4 - 2. 0 mmol/L [facility] Lactate [Moles/Vol] 0.8 mmol/L Normal 0.4-2.0 [facility] Comment on above: Order Comment: Venip uncture immediately after or during the administration of Metamizole may lead to falsely low results. Testing should be performed immediately prior to Metamizole dosing. Performed By: #### 2 4321-2 #### FERNANDO CARBAJAL ([id number]) [facility] ([facility]) [address] [place] [address] Lactate [Moles/Vol]on 2023 Interpretation and review of laboratory results Normal [facility] Venipuncture immediately after or during the administration of Metamizole may lead to falsely low results. Testing should be performed immediately prior to Metamizole dosing. [facility] Lipaseon 05-11-2024 Lipase [Catalytic activity/Vol] 62 U/L - U/L [facility] Lipase [Catalytic activity/V ol]on 05-11-2024 Venipuncture immediately after or during the administration of Metamizole may lead to falsely low results. Testing should be performed immediately prior to Metamizole dosing. [facility] No Panel Informationon 05-11 Extra Tube Hold for add-ons. [facility] Comment on above: Auto resulted. [facility] Interpretation and review of laboratory results Abnormal [facility] Interpretation and review of laboratory results Normal [facility] Triacylglycerol lipaseon Lipase [Catalytic activity/Vol] 62 U/L Normal [facility] Comment on above: Order Comment: Venip uncture immediately after or during the administration of Metamizole may lead to falsely low results. Testing should be performed immediately prior to Metamizole dosing. Performed By: #### 2 4321-2 #### FERNANDO CARBAJAL ([id number]) [facility] ([facility]) [facility] [place] [address] Urinalysis complete W Reflex Culture panel (U)on 05-11-2024 Appearance (U) Ex.Turbid Abnormal Clear [facility] Bilirubin (U) [Mass/Vol] Negative NEGATIVE [facility] Color (U) Brown Abnormal Light-Yellow , Yellow, Dark-Yellow [facility] Glucose Auto test strip (U) [Mass/Vol] Normal Normal mg/dL [facility] Ketones (U) [Mass/Vol] Negative NEGAT AUDI mg/dL [facility] Leukocyte esterase Auto test strip Ql (U) 250 Doris/ L Abnormal NEGATIVE [facility] Nitrite Auto test strip Ql (U) Negative NEGATIVE [facility] pH (U) 8 [pH] 5.0, 5.5, 6.0, 6.5, 7.0, 7.5, 8.0 [facility] Protein (U) [Mass/Vol] 600 (3+) Abnormal NEGAT AUDI, 10 (TRACE), 20 (TRACE) mg/dL [facility] RBC (U) [#/Vol] 1.0 (3+) Abnormal NEGATIVE [facility] Specific gravity (U) [Rel density] 1.016 1.005 - 1.035 [facility] Urobilinogen (U) [Mass/Vol] Normal Normal mg/dL [facility] Appearance (U) Ex.Turbid Normal Clear [facility] Comment on above: Performed By: #### 2 4321-2 #### FERNANDO CARBAJAL ([id number]) [facility] ([facility]) [address] [place] [address] 50625 Bilirubin (U) [Mass/Vol] Negative Normal NEGATIVE [facility] Comment on above: Performed By: #### 2 4321-2 #### FERNANDO CARBAJAL ([id number]) [facility] ([facility]) [address] [place] [address] 97661 Color (U) Brown Normal Light-Yellow , Yellow, Dark-Yellow [facility] Comment on above: Performed By: #### 2 4321-2 #### FERNANDO CARBAJAL ([id number]) [facility] ([facility]) [address] [place] [address] 77483 Glucose Auto test strip (U) [Mass/Vol] Normal Normal Normal [facility] Comment on above: Performed By: #### 2 4321-2 #### FERNANDO CARBAJAL ([id number]) [facility] ([facility]) [address] [place] [address] 80787 Ketones (U) [Mass/Vol] Negative Normal [facility]IVE [facility] on above: Performed By: #### 2 4321-2 #### FERNANDO CARBAJAL ([id number]) [facility] ([facility]) [address] [place] [address] 95284 Leukocyte esterase Auto test strip Ql (U) 250 Doris/???L Abnormal NEGATIVE [facility] Comment on above: Performed By: #### 2 4321-2 #### FERNANDO CARBAJAL ([id number]) [facility] ([facility]) [address] [place] [address] 75180 Nitrite Auto test strip Ql (U) Negative Normal NEGATIVE [facility] Comment on above: Performed By: #### 2 432-2 #### FERNANDO CARBAJAL ([id number]) [facility] ([facility]) [address] [place] [address] 86693 pH (U) 8.0 [pH] Normal 5.0, 5.5, 6.0, 6.5, 7.0, 7.5, 8.0 [facility] Comment on above: Performed By: #### 2 4321-2 #### FERNANDO CARBAJAL ([id number]) [facility] ([facility]) [address] [place] [address] 06396 Protein (U) [Mass/Vol] 600 (3+) Abnormal NEGAT AUDI, 10 (TRACE), 20 (TRACE) [facility] Comment on above: Performed By: #### 2 4321-2 #### FERNANDO CARBAJAL ([id number]) [facility] ([facility]) [address] [place] [address] 29051 RBC (U) [#/Vol] 1.0 (3+) Abnormal NEGATIVE [facility] Comment on above: Performed By: #### 2 4321-2 #### FERNANDO CARBAJAL ([id number]) [facility] ([facility]) [address] [place] [address] 45158 Specific gravity (U) [Rel density] 1.016 Normal 1.005-1.035 [facility] Comment on above: Performed By: #### 2 4321-2 #### FERNANDO CARBAJAL ([id number]) [facility] ([facility]) [address] [place] [address] Urobilinogen (U) [Mass/Vol] Normal Normal Normal [facility] Comment on above: Performed By: #### 2 4321-2 #### FERNANDO CARBAJAL ([id number]) [facility] ([facility]) [address] [place] [address] Urinalysis microscopic panel Auto Ql (U)on 05-11-2024 Bacteria Auto (Urine sed) [#/Area] 1+ Abnormal NONE SEEN /HPF [facility] RBC Auto (Urine sed) [#/Area] >20 Abnormal NONE, 1-2, 3-5 /HPF [facility] WBC Auto (Urine sed) [#/Area] >50 Abnormal 1-5, NONE /HPF [facility] Bacteria Auto (Urine sed) [#/Area] 1+ /HPF Abnormal NONE SEEN [facility] Comment on above: Performed By: #### 2 4321-2 #### FERNANDO CARBAJAL ([id number]) [facility] ([facility]) [address] [place] [address] RBC Auto (Urine sed) [#/Area] >20 Abnormal NONE, 1-2, 3-5 [facility] Comment on above: Performed By: #### 2 4321-2 #### FERNANDO CARBAJAL ([id number]) [facility] ([facility]) [address] [place] [address] WBC Auto (Urine sed) [#/Area] >50 Abnormal 1-5, NONE [facility] Comment on above: Performed By: #### 2 4321-2 #### FERNANDO CARBAJAL ([id number]) [facility] ([facility]) [address] [place] [address] POINT OF CARE ULTRASOUND NO CHARGEon 04-01-2024 POINT OF CARE ULTRASOUND NO CHARGE These images are not reportable by radiology and will not be interpreted by Radiologists. Normal [facility] US Abdomenon 04-01-2024 These images are not reportable by radiology and will not be interpreted by Radiologists. IMAGING XR HIP LEFT WITH PELVIS WHEN PERFORMED 2 OR 3 VIEWSon 04-01-2024 XR HIP LEFT WITH PELVIS WHEN PERFORMED 2 OR 3 VIEWS Interpreted By: Caro Byers, STUDY: Single view pelvis. Left hip, two views. INDICATION: Signs/Symptoms:LEFT HIP POST OP. COMPARISON: None. ACCESSION NUMBER(S): [id number] ORDERING CLINICIAN: JUDY LEY FINDINGS: No acute fracture or malalignment. Status post left hip hemiarthroplasty. Hardware is intact without perihardware fractures or lucencies. 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 Lower lumbar spine degenerative changes. Partially visualized right-sided double-J ureteral stent. Soft tissues are within normal limits. IMPRESSION: 1. Left hip hemiarthroplasty without hardware complication. MACRO: None. Signed by: Caro Byers 04/06/2024 7:30 AM Dictation workstation: [id number] [facility] CBC panel Auto (Bld)on 03-11 Erythrocyte distribution width (RBC) [Ratio] 15.1 % High 11.5 - 14.5 % [facility] Hematocrit (Bld) [Volume fraction] 28.5 % Low 41.0 - 52.0 % [facility] Hemoglobin (Bld) [Mass/Vol] 8.7 g/dL Low 13.5 - 17.5 g/dL [facility] Interpretation and review of laboratory results Abnormal [facility] MCH (RBC) [Entitic mass] 30.3 pg 26.0 - 34.0 pg [facility] MCHC (RBC) [Mass/Vol] 30.5 g/dL Low 32.0 - 36.0 g/dL [facility] MCV (RBC) [Entitic vol] 99 fL 80 - 100 fL [facility] Nucleated RBC/100 WBC (Bld) [Ratio] 0.0 % [facility] Platelets (Bld) [#/Vol] 229 10*3/uL [facility] RBC (Bld) [#/Vol] 2.87 10*6/uL Low [facility] WBC (Bld) [#/Vol] 7.1 10*3/uL [facility] Erythrocyte distribution width (RBC) [Ratio] 15.1 % High 11.5-14.5 [facility] Comment on above: Performed By: #### 1 9123-9 #### FERNANDO CARBAJAL ([id number]) [facility] ([facility]) [address] [place] [address] Hematocrit (Bld) [Volume fraction] 28.5 % Low 41.0-52.0 [facility] Comment on above: Performed By: #### 1 9123-9 #### FERNANDO CARBAJAL ([id number]) [facility] ([facility]) [address] [place] [address] Hemoglobin (Bld) [Mass/Vol] 8.7 g/dL Low 13.5-17.5 [facility] Comment on above: Performed By: #### 1 9123-9 #### FERNANDO CARBAJAL ([id number]) [facility] ([facility]) [address] [place] [address] MCH (RBC) [Entitic mass] 30.3 pg Normal 26.0-34.0 [facility] Comment on above: Performed By: #### 1 9123-9 #### FERNANDO CARBAJAL ([id number]) [facility] ([facility]) [address] [place], [place] [id number] MCHC (RBC) [Mass/Vol] 30.5 g/dL Low 32.0-36.0 [facility] Comment on above: Performed By: #### 1 9123-9 #### FERNANDO CARBAJAL ([id number]) [facility] ([facility]) [address] [place] [address] 54415 MCV (RBC) [Entitic vol] 99 fL Normal 80-100 [facility] Comment on above: Performed By: #### 1 9123-9 #### FERNANDO CARBAJAL ([id number]) [facility] ([facility]) [address] [place], [place] [address] Nucleated RBC/100 WBC (Bld) [Ratio] 0.0 /100 WBCs Normal 0.0-0.0 [facility] Comment on above: Performed By: #### 1 9123-9 #### FERNANDO CARBAJAL ([id number]) [facility] ([facility]) [address] [place] [address] Platelets (Bld) [#/Vol] 229 x10*3/uL Normal 150-450 [facility] Comment on above: Performed By: #### 1 9123-9 #### FERNANDO CARBAJAL ([id number]) [facility] ([facility]) [facility] [place] [address] RBC (Bld) [#/Vol] 2.87 x10*6/uL Low 4.50-5.90 [facility] Comment on above: Performed By: #### 1 9123-9 #### FERNANDO CARBAJAL ([id number]) [facility] ([facility]) [address] [place] [address] 42372 WBC (Bld) [#/Vol] 7.1 x10*3/uL Normal 4.4-11.3 [facility] Comment on above: Performed By: #### 1 9123-9 #### FERNANDO CARBAJAL ([id number]) [facility] ([facility]) [address] [place] [address] 85020 Terry Avalos 03-11-2024 Extra Tube Hold for add-ons. [facility] Comment on above: Auto resulted. [facility] CBC panel Auto (Bld)on 03-10 Erythrocyte distribution width (RBC) [Ratio] 14.8 % High 11.5 - 14.5 % [facility] Hematocrit (Bld) [Volume fraction] 28.1 % Low 41.0 - 52.0 % [facility] Hemoglobin (Bld) [Mass/Vol] 8.8 g/dL Low 13.5 - 17.5 g/dL [facility] Interpretation and review of laboratory results Abnormal [facility] MCH (RBC) [Entitic mass] 30.2 pg 26.0 - 34.0 pg [facility] MCHC (RBC) [Mass/Vol] 31.3 g/dL Low 32.0 - 36.0 g/dL [facility] MCV (RBC) [Entitic vol] 97 fL 80 - 100 fL [facility] Nucleated RBC/100 WBC (Bld) [Ratio] 0.0 % [facility] Platelets (Bld) [#/Vol] 295 10*3/uL [facility] RBC (Bld) [#/Vol] 2.91 10*6/uL Low [facility] WBC (Bld) [#/Vol] 9.2 10*3/uL [facility] Erythrocyte distribution width (RBC) [Ratio] 14.8 % High 11.5-14.5 [facility] Comment on above: Performed By: #### 1 9123-9 #### FERNANDO CARBAJAL ([id number]) [facility] ([facility]) [address] [place] [address] Hematocrit (Bld) [Volume fraction] 28.1 % Low 41.0-52.0 [facility] Comment on above: Performed By: #### 1 9123-9 #### FERNANDO CARBAJAL ([id number]) [facility] ([facility]) [address] [place] [address] 21884 Hemoglobin (Bld) [Mass/Vol] 8.8 g/dL Low 13.5-17.5 [facility] Comment on above: Performed By: #### 1 9123-9 #### FERNANDO CARBAJAL ([id number]) [facility] ([facility]) [address] [place] [address] 07195 MCH (RBC) [Entitic mass] 30.2 pg Normal 26.0-34.0 [facility] Comment on above: Performed By: #### 1 9123-9 #### FERNANDO CARBAJAL ([id number]) [facility] ([facility]) [address] [place] [address] 03709 MCHC (RBC) [Mass/Vol] 31.3 g/dL Low 32.0-36.0 [facility] Comment on above: Performed By: #### 1 9123-9 #### FERANNDO CARBAJAL ([id number]) [facility] ([facility]) [address] [place] [address] 59661 MCV (RBC) [Entitic vol] 97 fL Normal 80-100 [facility] Comment on above: Performed By: #### 1 9123-9 #### FERNANDO CARBAJAL ([id number]) [facility] ([facility]) [address] [place] [address] 20889 Nucleated RBC/100 WBC (Bld) [Ratio] 0.0 /100 WBCs Normal 0.0-0.0 [facility] Comment on above: Performed By: #### 1 9123-9 #### FERNANDO CARBAJAL ([id number]) [facility] ([facility]) [address] [place] [address] 15001 Platelets (Bld) [#/Vol] 295 x10*3/uL Normal 150-450 [facility] Comment on above: Performed By: #### 1 9123-9 #### FERNANDO CARBAJAL ([id number]) [facility] ([facility]) [address] [place] [address] 88230 RBC (Bld) [#/Vol] 2.91 x10*6/uL Low 4.50-5.90 [facility] Comment on above: Performed By: #### 1 9123-9 #### FERNANDO CARBAJAL ([id number]) [facility] ([facility]) [address] [place] [address] 91057 WBC (Bld) [#/Vol] 9.2 x10*3/uL Normal 4.4-11.3 [facility] Comment on above: Performed By: #### 1 9123-9 #### FERNANDO CARBAJAL ([id number]) [facility] ([facility]) [address] [place] [address] 37252 Magnesiumon 03-10-2024 Magnesium [Mass/Vol] 2.06 mg/dL 1.60 - 2.40 mg/dL [facility] Magnesium [Mass/Vol] 2.06 mg/dL Normal 1.60-2.40 [facility] Comment on above: Performed By: #### 1 9123-9 #### FERNANDO CARBAJAL ([id number]) [facility] ([facility]) [address] [place] [address] 75217 Magnesium [Mass/Vol]on 03-10 Interpretation and review of laboratory results Normal [facility] Renal function 2000 panelon 03-10-2024 Albumin BCP dye [Mass/Vol] 3.2 g/dL Low 3.4 - 5.0 g/dL [facility] Anion gap [Moles/Vol] 15 mmol/L 10 - 2 0 mmol/L [facility] Calcium [Mass/Vol] 8.5 mg/dL Low 8.6 - 10. 3 mg/dL [facility] Chloride [Moles/Vol] 103 mmol/L 98 - 10 7 mmol/L [facility] CO2 [Moles/Vol] 23 mmol/L 21 - 32 mmol/L [facility] Creatinine [Mass/Vol] 5.28 mg/dL High 0.50 - 1.30 mg/dL [facility] Comment on above: Reviewed with previo us results GFR/1.73 sq M.predicted among non-blacks MDRD (S/P/Bld) [Vol rate/Area] 10 mL/min/{1.73_m2} Low - PINF [facility] Comment on above: Calculations of alejandra mated GFR are performed using the 2020 CKD-EPI Study Refit equation without the race variable for the IDMS-Traceable creatinine methods. https://jasn.asnjournals.org/content/early//ASN.47925 03050 Glucose [Mass/Vol] 106 mg/dL High 74 - 99 mg/dL [facility] Interpretation and review of laboratory results Abnormal [facility] Phosphate [Mass/Vol] 5.2 mg/dL High 2.5 - 4 .9 mg/dL [facility] Comment on above: The performance herve acteristics of phosphorus testing in heparinized plasma have been validated by the individual laboratory site where testing is performed. Testing on heparinized plasma is not approved by the FDA; however, such approval is not necessary. Potassium [Moles/Vol] 4.2 mmol/L 3.5 - 5.3 mmol/L [facility] Sodium [Moles/Vol] 137 mmol/L 136 - 145 mmol/L [facility] Urea nitrogen [Mass/Vol] 40 mg/dL High 6 - 23 mg/dL [facility] Albumin BCP dye [Mass/Vol] 3.2 g/dL Low 3.4-5.0 [facility] Comment on above: Performed By: #### 1 9123-9 #### FERNANDO CARBAJAL ([id number]) [facility] ([facility]) [address] [place] [address] Anion gap [Moles/Vol] 15 mmol/L Normal 10-20 [facility] Comment on above: Performed By: #### 1 9123-9 #### FERNANDO CARBAJAL ([id number]) [facility] ([facility]) [address] [place] [address] 04038 Calcium [Mass/Vol] 8.5 mg/dL Low 8.6-10.3 [facility] Comment on above: Performed By: #### 1 9123-9 #### FERNANDO CARBAJAL ([id number]) [facility] ([facility]) [address] [place] [address] Chloride [Moles/Vol] 103 mmol/L Normal 98-107 [facility] Comment on above: Performed By: #### 1 9123-9 #### FERNANDO CARBAJAL ([id number]) [facility] ([facility]) [address] [place] [address] CO2 [Moles/Vol] 23 mmol/L Normal 21-32 [facility] Comment on above: Performed By: #### 1 9123-9 #### FERNANDO CARBAJAL ([id number]) [facility] ([facility]) [address] [place] [address] Creatinine [Mass/Vol] 5.28 mg/dL High 0.50-1.30 [facility] Comment on above: Result Comment: Revi ewed with previous results Performed By: #### 1 9123-9 #### FERNANDO CARBAJAL ([id number]) [facility] ([facility]) [address] [place] [address] Glomerular filtration rate/1.73 sq M.predicted 10 mL/min/1.73m*2 Low >60 [facility] Comment on above: Result Comment: Calc ulations of estimated GFR are performed using the 2020 CKD-EPI Study Refit equation without the race variable for the IDMS-Traceable creatinine methods. https://jasn.asnjournals.org/content/early/ASN.50317 17212 Performed By: #### 1 9123-9 #### FERNANDO CARBAJAL ([id number]) [facility] ([facility]) [address] [place] [address] 72632 Glucose [Mass/Vol] 106 mg/dL High 74-99 [facility] Comment on above: Performed By: #### 1 9123-9 #### FERNANDO CARBAJAL ([id number]) [facility] ([facility]) [address] [place] [address] 09959 Phosphate [Mass/Vol] 5.2 mg/dL High 2.5-4.9 [facility] Comment on above: Result Comment: The performance characteristics of phosphorus testing in heparinized plasma have been validated by the individual laboratory site where testing is performed. Testing on heparinized plasma is not approved by the FDA; however, such approval is not necessary. Performed By: #### 1 9123-9 #### FERNANDO CARBAJAL ([id number]) [facility] ([facility]) [address] [place] [address] 72538 Potassium [Moles/Vol] 4.2 mmol/L Normal 3.5-5.3 [facility] Comment on above: Performed By: #### 1 9123-9 #### FERNANDO CARBAJAL ([id number]) [facility] ([facility]) [facility] [place] [address] Sodium [Moles/Vol] 137 mmol/L Normal 136-145 [facility] Comment on above: Performed By: #### 1 9123-9 #### FERNANDO CARBAJAL ([id number]) [facility] ([facility]) [facility] [place] [address] Urea nitrogen [Mass/Vol] 40 mg/dL High 6-23 [facility] Comment on above: Performed By: #### 1 9123-9 #### FERNANDO CARBAJAL ([id number]) [facility] ([facility]) [address] [place] [address] Bacteria identified Cx Nom ( Bld)on 03-09-2024 Interpretation and review of laboratory results Normal [facility] CBC panel Auto (Bld)on 03-09 Erythrocyte distribution width (RBC) [Ratio] 15.1 % High 11.5 - 14.5 % [facility] Hematocrit (Bld) [Volume fraction] 29.7 % Low 41.0 - 52.0 % [facility] Hemoglobin (Bld) [Mass/Vol] 9.1 g/dL Low 13.5 - 17.5 g/dL [facility] Interpretation and review of laboratory results Abnormal [facility] MCH (RBC) [Entitic mass] 30.1 pg 26.0 - 34.0 pg [facility] MCHC (RBC) [Mass/Vol] 30.6 g/dL Low 32.0 - 36.0 g/dL [facility] MCV (RBC) [Entitic vol] 98 fL 80 - 100 fL [facility] Nucleated RBC/100 WBC (Bld) [Ratio] 0.0 % [facility] Platelets (Bld) [#/Vol] 279 10*3/uL [facility] RBC (Bld) [#/Vol] 3.02 10*6/uL Low [facility] WBC (Bld) [#/Vol] 6.2 10*3/uL [facility] Erythrocyte distribution width (RBC) [Ratio] 15.1 % High 11.5-14.5 [facility] Comment on above: Performed By: #### 2 524-7 #### FERNANDO CARBAJAL ([id number]) [facility] ([facility]) [address] [place] [address] Hematocrit (Bld) [Volume fraction] 29.7 % Low 41.0-52.0 [facility] Comment on above: Performed By: #### 2 524-7 #### FERNANDO CARBAJAL ([id number]) [facility] ([facility]) [address] [place] [address] 05275 Hemoglobin (Bld) [Mass/Vol] 9.1 g/dL Low 13.5-17.5 [facility] Comment on above: Performed By: #### 2 524-7 #### FERNANDO CARBAJAL ([id number]) [facility] ([facility]) [address] [place] [address] 59157 MCH (RBC) [Entitic mass] 30.1 pg Normal 26.0-34.0 [facility] Comment on above: Performed By: #### 2 524-7 #### FERNANDO CARBAJAL ([id number]) [facility] ([facility]) [address] [place] [address] 02900 MCHC (RBC) [Mass/Vol] 30.6 g/dL Low 32.0-36.0 [facility] Comment on above: Performed By: #### 2 524-7 #### FERNANDO CARBAJAL ([id number]) [facility] ([facility]) [address] [place] [address] 13006 MCV (RBC) [Entitic vol] 98 fL Normal 80-100 [facility] Comment on above: Performed By: #### 2 524-7 #### FERNANDO CARBAJAL ([id number]) [facility] ([facility]) [address] [place] [address] 52290 Nucleated RBC/100 WBC (Bld) [Ratio] 0.0 /100 WBCs Normal 0.0-0.0 [facility] Comment on above: Performed By: #### 2 524-7 #### FERNANDO CARBAJAL ([id number]) [facility] ([facility]) [address] [place] [address] 67015 Platelets (Bld) [#/Vol] 279 x10*3/uL Normal 150-450 [facility] Comment on above: Performed By: #### 2 524-7 #### FERNANDO CARBAJAL ([id number]) [facility] ([facility]) [address] [place] [address] 17213 RBC (Bld) [#/Vol] 3.02 x10*6/uL Low 4.50-5.90 [facility] Comment on above: Performed By: #### 2 524-7 #### FERNANDO CARBAJAL ([id number]) [facility] ([facility]) [address] [place] [address] 45148 WBC (Bld) [#/Vol] 6.2 x10*3/uL Normal 4.4-11.3 [facility] Comment on above: Performed By: #### 2 524-7 #### FERNANDO CARBAJAL ([id number]) [facility] ([facility]) [address] [place] [address] 36498 FL FLUORO IMAGES NO CHARGEon 03-09-2024 FL FLUORO IMAGES NO CHARGE These images are not reportable by radiology and will not be interpreted by Radiologists. Normal [facility] HBV surface Ag IA Qlon 03-09 Interpretation and review of laboratory results Normal [facility] Hepatitis B surface antigeno n 03-09-2024 HBV surface Ag IA Ql Non-Reactive Nonreactive U [facility] Comment on above: Biotin interference may cause falsely decreased results. Patients taking a Biotin dose of up to 5 mg/day should refrain from taking Biotin for 24 hours before sample collection. Providers may contact their local laboratory for further information. Laboratory - Microbiology an d Antimicrobial susceptibilityon 03-09-2024 Bacteria identified Cx Nom (Bld) No growth at 4 days - FINAL REPORT [facility] Magnesiumon 03-09-2024 Magnesium [Mass/Vol] 2.01 mg/dL 1.60 - 2.40 mg/dL [facility] Magnesium [Mass/Vol] 2.01 mg/dL Normal 1.60-2.40 [facility] Comment on above: Performed By: #### 2 524-7 #### FERNANDO CARBAJAL ([id number]) [facility] ([facility]) [address] [place] [address] 26981 Magnesium [Mass/Vol]on 03-09 Interpretation and review of laboratory results Normal [facility] No Panel Informationon 03-09 [facility] Renal function 2000 panelon 03-09-2024 Albumin BCP dye [Mass/Vol] 3.2 g/dL Low 3.4 - 5.0 g/dL [facility] Anion gap [Moles/Vol] 15 mmol/L 10 - 2 0 mmol/L [facility] Calcium [Mass/Vol] 8.6 mg/dL 8.6 - 10. 3 mg/dL [facility] Chloride [Moles/Vol] 103 mmol/L 98 - 10 7 mmol/L [facility] CO2 [Moles/Vol] 26 mmol/L 21 - 32 mmol/L [facility] Creatinine [Mass/Vol] 4.12 mg/dL High 0.50 - 1.30 mg/dL [facility] Comment on above: Confirmed by repeat analysis GFR/1.73 sq M.predicted among non-blacks MDRD (S/P/Bld) [Vol rate/Area] 14 mL/min/{1.73_m2} Low - PINF [facility] Comment on above: Calculations of alejandra mated GFR are performed using the 2020 CKD-EPI Study Refit equation without the race variable for the IDMS-Traceable creatinine methods. https://jasn.asnjournals.org/content//ASN.25648 11901 Glucose [Mass/Vol] 87 mg/dL 74 - 99 mg/dL [facility] Interpretation and review of laboratory results Abnormal [facility] Phosphate [Mass/Vol] 4.5 mg/dL 2.5 - 4 .9 mg/dL [facility] Comment on above: The performance herve acteristics of phosphorus testing in heparinized plasma have been validated by the individual laboratory site where testing is performed. Testing on heparinized plasma is not approved by the FDA; however, such approval is not necessary. Potassium [Moles/Vol] 3.7 mmol/L 3.5 - 5.3 mmol/L [facility] Sodium [Moles/Vol] 140 mmol/L 136 - 145 mmol/L [facility] Urea nitrogen [Mass/Vol] 29 mg/dL High 6 - 23 mg/dL [facility] Albumin BCP dye [Mass/Vol] 3.2 g/dL Low 3.4-5.0 [facility] Comment on above: Performed By: #### 1 9123-9 #### FERNANDO CARBAJAL ([id number]) [facility] ([facility]) [address] [place] [address] Anion gap [Moles/Vol] 15 mmol/L Normal 10-20 [facility] Comment on above: Performed By: #### 1 9123-9 #### FERNANDO CARBAJAL ([id number]) [facility] ([facility]) [address] [place] [address] Calcium [Mass/Vol] 8.6 mg/dL Normal 8.6-10.3 [facility] Comment on above: Performed By: #### 1 9123-9 #### FERNANDO CARBAJAL ([id number]) [facility] ([facility]) [address] [place] [address] Chloride [Moles/Vol] 103 mmol/L Normal 98-107 [facility] Comment on above: Performed By: #### 1 9123-9 #### FERNANDO CARBAJAL ([id number]) [facility] ([facility]) [address] [place] [address] CO2 [Moles/Vol] 26 mmol/L Normal 21-32 [facility] [facility] Comment on above: Performed By: #### 1 9123-9 #### FERNANDO CARBAJAL ([id number]) [facility] ([facility]) [address] [place] [address] Creatinine [Mass/Vol] 4.12 mg/dL High 0.50-1.30 [facility] Comment on above: Result Comment: Conf irmed by repeat analysis Performed By: #### 1 9123-9 #### FERNANDO CARBAJAL ([id number]) [facility] ([facility]) [address] [place] [address]14 Glomerular filtration rate/1.73 sq M.predicted 14 mL/min/1.73m*2 Low >60 [facility] Comment on above: Result Comment: Calc ulations of estimated GFR are performed using the 2020 CKD-EPI Study Refit equation without the race variable for the IDMS-Traceable creatinine methods. https://jasn.asnjournals.org/content/early/ASN.14657 83180 Performed By: #### 1 9123-9 #### FERNANDO CARBAJAL ([id number]) [facility] ([facility]) [facility] [place] [address] Glucose [Mass/Vol] 87 mg/dL Normal 74-99 [facility] Comment on above: Performed By: #### 1 9123-9 #### FERNANDO CARBAJAL ([id number]) [facility] ([facility]) [address] [place] [address] 37516 Phosphate [Mass/Vol] 4.5 mg/dL Normal 2.5-4.9 [facility] Comment on above: Result Comment: The performance characteristics of phosphorus testing in heparinized plasma have been validated by the individual laboratory site where testing is performed. Testing on heparinized plasma is not approved by the FDA; however, such approval is not necessary. Performed By: #### 1 9123-9 #### FERNANDO CARBAJAL ([id number]) [facility] ([facility]) [address] [place] [address] 26472 Potassium [Moles/Vol] 3.7 mmol/L Normal 3.5-5.3 [facility] Comment on above: Performed By: #### 1 9123-9 #### FERNANDO CARBAJAL ([id number]) [facility] ([facility]) [address] [place] [address] 22919 Sodium [Moles/Vol] 140 mmol/L Normal 136-145 [facility] Comment on above: Performed By: #### 1 9123-9 #### FERNANDO CARBAJAL ([id number]) [facility] ([facility]) [address] [place] [address] 40023 Urea nitrogen [Mass/Vol] 29 mg/dL High 6-23 [facility] Comment on above: Performed By: #### 1 9123-9 #### FERNANDO CARBAJAL ([id number]) [facility] ([facility]) [address] [place] [address] 02048 XR tomography Unspecified jana dy regionon 03-09-2024 These images are not reportable by radiology and will not be interpreted by Radiologists. IMAGING CBC panel Auto (Bld)on 03-08 Erythrocyte distribution width (RBC) [Ratio] 15.0 % High 11.5 - 14.5 % [facility] Hematocrit (Bld) [Volume fraction] 28.1 % Low 41.0 - 52.0 % [facility] Hemoglobin (Bld) [Mass/Vol] 8.8 g/dL Low 13.5 - 17.5 g/dL [facility] Interpretation and review of laboratory results Abnormal [facility] MCH (RBC) [Entitic mass] 30.6 pg 26.0 - 34.0 pg [facility] MCHC (RBC) [Mass/Vol] 31.3 g/dL Low 32.0 - 36.0 g/dL [facility] MCV (RBC) [Entitic vol] 98 fL 80 - 100 fL [facility] Nucleated RBC/100 WBC (Bld) [Ratio] 0.0 % [facility] Platelets (Bld) [#/Vol] 272 10*3/uL [facility] RBC (Bld) [#/Vol] 2.88 10*6/uL Low [facility] WBC (Bld) [#/Vol] 6.9 10*3/uL [facility] Erythrocyte distribution width (RBC) [Ratio] 15.0 % High 11.5-14.5 [facility] Comment on above: Performed By: #### 2 524-7 #### FERNANDO CARBAJAL ([id number]) [facility] ([facility]) [address] [place] [address] 70544 Hematocrit (Bld) [Volume fraction] 28.1 % Low 41.0-52.0 [facility] Comment on above: Performed By: #### 2 524-7 #### FERNANDO CARBAJAL ([id number]) [facility] ([facility]) [address] [place] [address] 94682 Hemoglobin (Bld) [Mass/Vol] 8.8 g/dL Low 13.5-17.5 [facility] Comment on above: Performed By: #### 2 524-7 #### FERNANDO CARBAJAL ([id number]) [facility] ([facility]) [address] [place] [address] 25543 MCH (RBC) [Entitic mass] 30.6 pg Normal 26.0-34.0 [facility] Comment on above: Performed By: #### 2 524-7 #### FERNANDO CARBAJAL ([id number]) [facility] ([facility]) [address] [place] [address] 71817 MCHC (RBC) [Mass/Vol] 31.3 g/dL Low 32.0-36.0 [facility] Comment on above: Performed By: #### 2 524-7 #### FERNANDO CARBAJAL ([id number]) [facility] ([facility]) [address] [place] [address] 11700 MCV (RBC) [Entitic vol] 98 fL Normal 80-100 [facility] Comment on above: Performed By: #### 2 524-7 #### FERNANDO CARBAJAL ([id number]) [facility] ([facility]) [address] [place] [address] 33609 Nucleated RBC/100 WBC (Bld) [Ratio] 0.0 /100 WBCs Normal 0.0-0.0 [facility] Comment on above: Performed By: #### 2 524-7 #### FERNANDO CARBAJAL ([id number]) [facility] ([facility]) [address] [place] [address] 21819 Platelets (Bld) [#/Vol] 272 x10*3/uL Normal 150-450 [facility] Comment on above: Performed By: #### 2 524-7 #### FERNANDO CARBAJAL ([id number]) [facility] ([facility]) [address] [place] [address] 54481 RBC (Bld) [#/Vol] 2.88 x10*6/uL Low 4.50-5.90 [facility] Comment on above: Performed By: #### 2 524-7 #### FERNANDO CARBAJAL ([id number]) [facility] ([facility]) [address] [place] [address] WBC (Bld) [#/Vol] 6.9 x10*3/uL Normal 4.4-11.3 [facility] Comment on above: Performed By: #### 2 524-7 #### FERNANDO CARBAJAL ([id number]) [facility] ([facility]) [facility] [place] [address] HBV surface Ab Qn (S)on Interpretation and review of laboratory results [facility] Hepatitis B surface antibody on 03-08-2024 HBV surface Ab Qn (S) 111.1 [facility] Comment on above: Interpretive Criteri a: <10 mIU/mL Nonreactive >=10 mIU/mL Reactive Biotin interference may cause falsely decreased results. Patients taking a Biotin dose of up to 5 mg/day should refrain from taking Biotin for 24 hours before sample collection. Providers may contact their local laboratory for further information. Hepatitis B virus surface Ab on 03-08-2024 HBV surface Ab Qn (S) 111.1 mIU/mL High <10.0 [facility] Comment on above: Result Comment: Inte rpretive Criteria: <10 mIU/mL Nonreactive >=10 mIU/mL Reactive Biotin interference may cause falsely decreased results. Patients taking a Biotin dose of up to 5 mg/day should refrain from taking Biotin for 24 hours before sample collection. Providers may contact their local laboratory for further information. Performed By: #### 2 524-7 #### FERNANDO CARBAJAL ([id number]) [facility] ([facility]) [facility] [place] [address] Hepatitis B virus surface Ag on 03-08-2024 HBV surface Ag IA Ql Non-Reactive Normal Nonreactive [facility] Comment on above: Result Comment: Biot in interference may cause falsely decreased results. Patients taking a Biotin dose of up to 5 mg/day should refrain from taking Biotin for 24 hours before sample collection. Providers may contact their local laboratory for further information. Performed By: #### 1 9123-9 #### FERNANDO CARBAJAL ([id number]) [facility] ([facility]) [address] [place] [address] Magnesiumon 03-08-2024 Magnesium [Mass/Vol] 2.09 mg/dL 1.60 - 2.40 mg/dL [facility] Magnesium [Mass/Vol] 2.09 mg/dL Normal 1.60-2.40 [facility] Comment on above: Performed By: #### 2 524-7 #### KING RAVEN ([id number]) [facility] ([facility]) [address] [place] [address] Magnesium [Mass/Vol]on 03-08 Interpretation and review of laboratory results Normal [facility] No Panel Informationon 03-08 [facility] Renal function 2000 panelon 03-08-2024 Albumin BCP dye [Mass/Vol] 3.1 g/dL Low 3.4 - 5.0 g/dL [facility] Anion gap [Moles/Vol] 15 mmol/L 10 - 2 0 mmol/L [facility] Calcium [Mass/Vol] 8.4 mg/dL Low 8.6 - 10. 3 mg/dL [facility] Chloride [Moles/Vol] 103 mmol/L 98 - 10 7 mmol/L [facility] CO2 [Moles/Vol] 25 mmol/L 21 - 32 mmol/L [facility] Creatinine [Mass/Vol] 6.80 mg/dL High 0.50 - 1.30 mg/dL [facility] GFR/1.73 sq M.predicted among non-blacks MDRD (S/P/Bld) [Vol rate/Area] 8 mL/min/{1.73_m2} Low - PINF [facility] Comment on above: Calculations of alejandra mated GFR are performed using the 2020 CKD-EPI Study Refit equation without the race variable for the IDMS-Traceable creatinine methods. https://jasn.asnjournals.org/content/early/ASN.42763 52137 Glucose [Mass/Vol] 84 mg/dL 74 - 99 mg/dL [facility] Interpretation and review of laboratory results Abnormal [facility] Phosphate [Mass/Vol] 5.2 mg/dL High 2.5 - 4 .9 mg/dL [facility] Comment on above: The performance herve acteristics of phosphorus testing in heparinized plasma have been validated by the individual laboratory site where testing is performed. Testing on heparinized plasma is not approved by the FDA; however, such approval is not necessary. Potassium [Moles/Vol] 4.0 mmol/L 3.5 - 5.3 mmol/L [facility] Sodium [Moles/Vol] 139 mmol/L 136 - 145 mmol/L [facility] Urea nitrogen [Mass/Vol] 60 mg/dL High 6 - 23 mg/dL [facility] Albumin BCP dye [Mass/Vol] 3.1 g/dL Low 3.4-5.0 [facility] Comment on above: Performed By: #### 2 524-7 #### FERNANDO CARBAJAL ([id number]) [facility] ([facility]) [address] [place] [address] 67877 Anion gap [Moles/Vol] 15 mmol/L Normal 10-20 [facility] Comment on above: Performed By: #### 2 524-7 #### FERNANDO CARBAJAL ([id number]) [facility] ([facility]) [address] [place] [address] 69962 Calcium [Mass/Vol] 8.4 mg/dL Low 8.6-10.3 [facility] Comment on above: Performed By: #### 2 524-7 #### FERNANDO CARBAJAL ([id number]) [facility] ([facility]) [address] [place] [address] 39848 Chloride [Moles/Vol] 103 mmol/L Normal 98-107 [facility] Comment on above: Performed By: #### 2 524-7 #### FERNANDO CARBAJAL ([id number]) [facility] ([facility]) [address] [place] [address] 03201 CO2 [Moles/Vol] 25 mmol/L Normal 21-32 [facility] Comment on above: Performed By: #### 2 524-7 #### FERNANDO CARBAJAL ([id number]) [facility] ([facility]) [address] [place] [address] Creatinine [Mass/Vol] 6.80 mg/dL High 0.50-1.30 [facility] Comment on above: Performed By: #### 2 524-7 #### FERNANDO CARBAJAL ([id number]) [facility] ([facility]) [facility] [place] [address] Glomerular filtration rate/1.73 sq M.predicted 8 mL/min/1.73m*2 Low >60 [facility] Comment on above: Result Comment: Calc ulations of estimated GFR are performed using the 2020 CKD-EPI Study Refit equation without the race variable for the IDMS-Traceable creatinine methods. https://jasn.asnjournals.org/content/early//ASN.20812 82151 Performed By: #### 2 524-7 #### FERNANDO CARBAJAL ([id number]) [facility] ([facility]) [address] [place] [address] 47383 Glucose [Mass/Vol] 84 mg/dL Normal 74-99 [facility] Comment on above: Performed By: #### 2 524-7 #### FERNANDO CARBAJAL ([id number]) [facility] ([facility]) [address] [place] [address] 19903 Phosphate [Mass/Vol] 5.2 mg/dL High 2.5-4.9 [facility] Comment on above: Result Comment: The performance characteristics of phosphorus testing in heparinized plasma have been validated by the individual laboratory site where testing is performed. Testing on heparinized plasma is not approved by the FDA; however, such approval is not necessary. Performed By: #### 2 524-7 #### FERNANDO CARBAJAL ([id number]) [facility] ([facility]) [address] [place] [address]305 Potassium [Moles/Vol] 4.0 mmol/L Normal 3.5-5.3 [facility] Comment on above: Performed By: #### 2 524-7 #### FERNANDO CARBAJAL ([id number]) [facility] ([facility]) [address] [place] [address] Sodium [Moles/Vol] 139 mmol/L Normal 136-145 [facility] Comment on above: Performed By: #### 2 524-7 #### FERNANDO CARBAJAL ([id number]) [facility] ([facility]) [address] [place] [address] Urea nitrogen [Mass/Vol] 60 mg/dL High 6-23 [facility] Comment on above: Performed By: #### 2 524-7 #### FERNANDO CARBAJAL ([id number]) [facility] ([facility]) [facility] [place] [address] Bacteria identified Cx Nom ( U)Ordered By: Gato Garcia on 03-07-2024 Interpretation and review of laboratory results Normal [facility] CBC panel Auto (Bld)on 03-07 Erythrocyte distribution width (RBC) [Ratio] 14.9 % High 11.5 - 14.5 % [facility] Hematocrit (Bld) [Volume fraction] 26.9 % Low 41.0 - 52.0 % [facility] Hemoglobin (Bld) [Mass/Vol] 8.2 g/dL Low 13.5 - 17.5 g/dL [facility] Interpretation and review of laboratory results Abnormal [facility] MCH (RBC) [Entitic mass] 30.1 pg 26.0 - 34.0 pg [facility] MCHC (RBC) [Mass/Vol] 30.5 g/dL Low 32.0 - 36.0 g/dL [facility] MCV (RBC) [Entitic vol] 99 fL 80 - 100 fL [facility] Nucleated RBC/100 WBC (Bld) [Ratio] 0.0 % [facility] Platelets (Bld) [#/Vol] 235 10*3/uL [facility] RBC (Bld) [#/Vol] 2.72 10*6/uL Low [facility] WBC (Bld) [#/Vol] 5.6 10*3/uL [facility] Erythrocyte distribution width (RBC) [Ratio] 14.9 % High 11.5-14.5 [facility] Comment on above: Performed By: #### 2 524-7 #### FERNANDO CARBAJAL ([id number]) [facility] ([facility]) [address] [place] [address] 08919 Hematocrit (Bld) [Volume fraction] 26.9 % Low 41.0-52.0 [facility] Comment on above: Performed By: #### 2 524-7 #### FERNANDO CARBAJAL ([id number]) [facility] ([facility]) [address] [place] [address] 36254 Hemoglobin (Bld) [Mass/Vol] 8.2 g/dL Low 13.5-17.5 [facility] Comment on above: Performed By: #### 2 524-7 #### FERNANDO CARBAJAL ([id number]) [facility] ([facility]) [address] [place] [address] 20701 MCH (RBC) [Entitic mass] 30.1 pg Normal 26.0-34.0 [facility] Comment on above: Performed By: #### 2 524-7 #### FERNANDO CARBAJAL ([id number]) [facility] ([facility]) [address] [place] [address] 74652 MCHC (RBC) [Mass/Vol] 30.5 g/dL Low 32.0-36.0 [facility] Comment on above: Performed By: #### 2 524-7 #### FERNANDO CARBAJAL ([id number]) [facility] ([facility]) [address] [place] [address] 40244 MCV (RBC) [Entitic vol] 99 fL Normal 80-100 [facility] Comment on above: Performed By: #### 2 524-7 #### FERNANDO CARBAJAL ([id number]) [facility] ([facility]) [address] [place] [address] 15755 Nucleated RBC/100 WBC (Bld) [Ratio] 0.0 /100 WBCs Normal 0.0-0.0 [facility] Comment on above: Performed By: #### 2 524-7 #### FERNANDO CARBAJAL ([id number]) [facility] ([facility]) [address] [place] [address] Platelets (Bld) [#/Vol] 235 x10*3/uL Normal 150-450 [facility] Comment on above: Performed By: #### 2 524-7 #### FERNANDO CARBAJAL ([id number]) [facility] ([facility]) [facility] [place] [address] RBC (Bld) [#/Vol] 2.72 x10*6/uL Low 4.50-5.90 [facility] Comment on above: Performed By: #### 2 524-7 #### FERNANDO CARBAJAL ([id number]) [facility] ([facility]) [address] [place] [address] 29532 WBC (Bld) [#/Vol] 5.6 x10*3/uL Normal 4.4-11.3 [facility] Comment on above: Performed By: #### 2 524-7 #### FERNANDO CARBAJAL ([id number]) [facility] ([facility]) [address] [place] [address] 54287 Magnesiumon 03-07-2024 Magnesium [Mass/Vol] 2.06 mg/dL 1.60 - 2.40 mg/dL [facility] Magnesium [Mass/Vol] 2.06 mg/dL Normal 1.60-2.40 [facility] Comment on above: Performed By: #### 2 524-7 #### FERNANDO CARBAJAL ([id number]) [facility] ([facility]) [address] [place] [address] 43416 Magnesium [Mass/Vol]on 03-07 Interpretation and review of laboratory results Normal [facility] No Panel Informationon 03-07 [facility] Renal function 2000 panelon 03-07-2024 Albumin BCP dye [Mass/Vol] 2.8 g/dL Low 3.4 - 5.0 g/dL [facility] Anion gap [Moles/Vol] 14 mmol/L 10 - 2 0 mmol/L [facility] Calcium [Mass/Vol] 8.0 mg/dL Low 8.6 - 10. 3 mg/dL [facility] Chloride [Moles/Vol] 101 mmol/L 98 - 10 7 mmol/L [facility] CO2 [Moles/Vol] 28 mmol/L 21 - 32 mmol/L [facility] Creatinine [Mass/Vol] 6.48 mg/dL High 0.50 - 1.30 mg/dL [facility] GFR/1.73 sq M.predicted among non-blacks MDRD (S/P/Bld) [Vol rate/Area] 8 mL/min/{1.73_m2} Low - PINF [facility] Comment on above: Calculations of alejandra mated GFR are performed using the 2020 CKD-EPI Study Refit equation without the race variable for the IDMS-Traceable creatinine methods. https://jasn.asnjournals.org/content/early/ASN.22159 64679 Glucose [Mass/Vol] 106 mg/dL High 74 - 99 mg/dL [facility] Interpretation and review of laboratory results Abnormal [facility] Phosphate [Mass/Vol] 5.0 mg/dL High 2.5 - 4 .9 mg/dL [facility] Comment on above: The performance herve acteristics of phosphorus testing in heparinized plasma have been validated by the individual laboratory site where testing is performed. Testing on heparinized plasma is not approved by the FDA; however, such approval is not necessary. Potassium [Moles/Vol] 4.2 mmol/L 3.5 - 5.3 mmol/L [facility] Sodium [Moles/Vol] 139 mmol/L 136 - 145 mmol/L [facility] Urea nitrogen [Mass/Vol] 60 mg/dL High 6 - 23 mg/dL [facility] Albumin BCP dye [Mass/Vol] 2.8 g/dL Low 3.4-5.0 [facility] Comment on above: Performed By: #### 2 524-7 #### KING RAVEN ([id number]) [facility] ([facility]) [address] [place] [address] Anion gap [Moles/Vol] 14 mmol/L Normal 10-20 [facility] Comment on above: Performed By: #### 2 524-7 #### FERNANDO CARBAJAL ([id number]) [facility] ([facility]) [address] [place] [address] Calcium [Mass/Vol] 8.0 mg/dL Low 8.6-10.3 [facility] Comment on above: Performed By: #### 2 524-7 #### FERNANDO CARBAJAL ([id number]) [facility] ([facility]) [address] [place] [address] Chloride [Moles/Vol] 101 mmol/L Normal 98-107 [facility] Comment on above: Performed By: #### 2 524-7 #### FERNANDO CARBAJAL ([id number]) [facility] ([facility]) [address] [place] [address] 17159 CO2 [Moles/Vol] 28 mmol/L Normal 21-32 [facility] Comment on above: Performed By: #### 2 524-7 #### FERNANDO CARBAJAL ([id number]) [facility] ([facility]) [address] [place] [address] Creatinine [Mass/Vol] 6.48 mg/dL High 0.50-1.30 [facility] Comment on above: Performed By: #### 2 524-7 #### FERNANDO CARBAJAL ([id number]) [facility] ([facility]) [address] [place] [address] 82399 Glomerular filtration rate/1.73 sq M.predicted 8 mL/min/1.73m*2 Low >60 [facility] Comment on above: Result Comment: Calc ulations of estimated GFR are performed using the 2020 CKD-EPI Study Refit equation without the race variable for the IDMS-Traceable creatinine methods. https://jasn.asnjournals.org/content/early//ASN.28480 53892 Performed By: #### 2 524-7 #### FERNANDO CARBAJAL ([id number]) [facility] ([facility]) [address] [place] [address] Glucose [Mass/Vol] 106 mg/dL High 74-99 [facility] Comment on above: Performed By: #### 2 524-7 #### FERNANDO CARBAJAL ([id number]) [facility] ([facility]) [facility] [place] [address] Phosphate [Mass/Vol] 5.0 mg/dL High 2.5-4.9 [facility] Comment on above: Result Comment: The performance characteristics of phosphorus testing in heparinized plasma have been validated by the individual laboratory site where testing is performed. Testing on heparinized plasma is not approved by the FDA; however, such approval is not necessary. Performed By: #### 2 524-7 #### FERNANDO CARBAJAL ([id number]) [facility] ([facility]) [address] [place] [address] 86539 Potassium [Moles/Vol] 4.2 mmol/L Normal 3.5-5.3 [facility] Comment on above: Performed By: #### 2 524-7 #### FERNANDO CARBAJAL ([id number]) [facility] ([facility]) [facility] [place] [address] Sodium [Moles/Vol] 139 mmol/L Normal 136-145 [facility] Comment on above: Performed By: #### 2 524-7 #### FERNANDO CARBAJAL ([id number]) [facility] ([facility]) [facility] [place] [address] Urea nitrogen [Mass/Vol] 60 mg/dL High 6-23 [facility] Comment on above: Performed By: #### 2 524-7 #### FERNANDO CARBAJAL ([id number]) [facility] ([facility]) [address] [place] [address] 79149 Urine CultureOrdered By: Harsha Garcia on 03-07-2024 Bacteria identified Cx Nom (U) No significant growth [facility] CBC panel Auto (Bld)on 03-06 Erythrocyte distribution width (RBC) [Ratio] 15.0 % High 11.5 - 14.5 % [facility] Hematocrit (Bld) [Volume fraction] 26.4 % Low 41.0 - 52.0 % [facility] Hemoglobin (Bld) [Mass/Vol] 8.2 g/dL Low 13.5 - 17.5 g/dL [facility] Interpretation and review of laboratory results Abnormal [facility] MCH (RBC) [Entitic mass] 30.5 pg 26.0 - 34.0 pg [facility] MCHC (RBC) [Mass/Vol] 31.1 g/dL Low 32.0 - 36.0 g/dL [facility] MCV (RBC) [Entitic vol] 98 fL 80 - 100 fL [facility] Nucleated RBC/100 WBC (Bld) [Ratio] 0.0 % [facility] Platelets (Bld) [#/Vol] 208 10*3/uL [facility] RBC (Bld) [#/Vol] 2.69 10*6/uL Low [facility] WBC (Bld) [#/Vol] 7.3 10*3/uL [facility] Erythrocyte distribution width (RBC) [Ratio] 15.0 % High 11.5-14.5 [facility] Comment on above: Performed By: #### 5 7865-8 #### FERNANDO CARBAJAL ([id number]) [facility] ([facility]) [address] [place] [address] 82981 Hematocrit (Bld) [Volume fraction] 26.4 % Low 41.0-52.0 [facility] Comment on above: Performed By: #### 5 3315-8 #### FERNANDO CARBAJAL ([id number]) [facility] ([facility]) [address] [place] [address] 36339 Hemoglobin (Bld) [Mass/Vol] 8.2 g/dL Low 13.5-17.5 [facility] Comment on above: Performed By: #### 5 3315-8 #### FERNANDO CARBAJAL ([id number]) [facility] ([facility]) [address] [place] [address] 55540 MCH (RBC) [Entitic mass] 30.5 pg Normal 26.0-34.0 [facility] Comment on above: Performed By: #### 5 1765-8 #### FERNANDO CARBAJAL ([id number]) [facility] ([facility]) [address] [place] [address] 87136 MCHC (RBC) [Mass/Vol] 31.1 g/dL Low 32.0-36.0 [facility] Comment on above: Performed By: #### 5 3315-8 #### FERNANDO CARBAJAL ([id number]) [facility] ([facility]) [address] [place] [address] MCV (RBC) [Entitic vol] 98 fL Normal 80-100 [facility] Comment on above: Performed By: #### 5 3314-8 #### FERNANDO CARBAJAL ([id number]) [facility] ([facility]) [address] [place] [address] Nucleated RBC/100 WBC (Bld) [Ratio] 0.0 /100 WBCs Normal 0.0-0.0 [facility] Comment on above: Performed By: #### 5 5-8 #### FERNANDO CARBAJAL ([id number]) [facility] ([facility]) [address] [place] [address] 70339 Platelets (Bld) [#/Vol] 208 x10*3/uL Normal 150-450 [facility] Comment on above: Performed By: #### 5 3315-8 #### FERNANDO CARBAJAL ([id number]) [facility] ([facility]) [address] [place] [address] 77069 RBC (Bld) [#/Vol] 2.69 x10*6/uL Low 4.50-5.90 [facility] Comment on above: Performed By: #### 5 3315-8 #### FERNANDO CARBAJAL ([id number]) [facility] ([facility]) [address] [place] [address] 52240 WBC (Bld) [#/Vol] 7.3 x10*3/uL Normal 4.4-11.3 [facility] Comment on above: Performed By: #### 5 3315-8 #### FERNANDO CARBAJAL ([id number]) [facility] ([facility]) [address] [place] [address] Extra Urine Khan Tubeon Extra Tube Hold for add-ons. [facility] Comment on above: Auto resulted. [facility] Magnesiumon 03-06-2024 Magnesium [Mass/Vol] 1.97 mg/dL 1.60 - 2.40 mg/dL [facility] Magnesium [Mass/Vol] 1.97 mg/dL Normal 1.60-2.40 [facility] Comment on above: Performed By: #### 5 3315-8 #### KING SHYLAHRLINETTE ([id number]) [facility] ([facility]) [facility] [place] [address] Magnesium [Mass/Vol]on 03-06 Interpretation and review of laboratory results Normal [facility] No Panel Informationon 03-06 [facility] Renal function 2000 panelon 03-06-2024 Albumin BCP dye [Mass/Vol] 2.9 g/dL Low 3.4 - 5.0 g/dL [facility] Anion gap [Moles/Vol] 13 mmol/L 10 - 2 0 mmol/L [facility] Calcium [Mass/Vol] 8.1 mg/dL Low 8.6 - 10. 3 mg/dL [facility] Chloride [Moles/Vol] 100 mmol/L 98 - 10 7 mmol/L [facility] CO2 [Moles/Vol] 28 mmol/L 21 - 32 mmol/L [facility] Creatinine [Mass/Vol] 5.97 mg/dL High 0.50 - 1.30 mg/dL [facility] GFR/1.73 sq M.predicted among non-blacks MDRD (S/P/Bld) [Vol rate/Area] 9 mL/min/{1.73_m2} Low - PINF [facility] Comment on above: Calculations of alejandra mated GFR are performed using the 2020 CKD-EPI Study Refit equation without the race variable for the IDMS-Traceable creatinine methods. https://jasn.asnjournals.org/content//ASN.78820 70772 Glucose [Mass/Vol] 101 mg/dL High 74 - 99 mg/dL [facility] Interpretation and review of laboratory results Abnormal [facility] Phosphate [Mass/Vol] 4.2 mg/dL 2.5 - 4 .9 mg/dL [facility] Comment on above: The performance herve acteristics of phosphorus testing in heparinized plasma have been validated by the individual laboratory site where testing is performed. Testing on heparinized plasma is not approved by the FDA; however, such approval is not necessary. Potassium [Moles/Vol] 4.8 mmol/L 3.5 - 5.3 mmol/L [facility] Sodium [Moles/Vol] 136 mmol/L 136 - 145 mmol/L [facility] Urea nitrogen [Mass/Vol] 60 mg/dL High 6 - 23 mg/dL [facility] Albumin BCP dye [Mass/Vol] 2.9 g/dL Low 3.4-5.0 [facility] Comment on above: Performed By: #### 5 3315-8 #### FERNANDO CARBAJAL ([id number]) [facility] ([facility]) [facility] [place] [address] Anion gap [Moles/Vol] 13 mmol/L Normal 10-20 [facility] Comment on above: Performed By: #### 5 3315-8 #### FERNANDO CARBAJAL ([id number]) [facility] ([facility]) [address] [place] [address] Calcium [Mass/Vol] 8.1 mg/dL Low 8.6-10.3 [facility] Comment on above: Performed By: #### 5 3315-8 #### FERNANDO CARBAJAL ([id number]) [facility] ([facility]) [address] [place] [address] Chloride [Moles/Vol] 100 mmol/L Normal 98-107 [facility] Comment on above: Performed By: #### 5 3315-8 #### FERNANDO CARBAJAL ([id number]) [facility] ([facility]) [facility] [place] [address] CO2 [Moles/Vol] 28 mmol/L Normal 21-32 [facility] Comment on above: Performed By: #### 5 3315-8 #### FERNANDO CARBAJAL ([id number]) [facility] ([facility]) [address] [place] [address] 75200 Creatinine [Mass/Vol] 5.97 mg/dL High 0.50-1.30 [facility] Comment on above: Performed By: #### 5 3315-8 #### FERNANDO CARBAJAL ([id number]) [facility] ([facility]) [address] [place] [address] 10305 Glomerular filtration rate/1.73 sq M.predicted 9 mL/min/1.73m*2 Low >60 [facility] Comment on above: Result Comment: Calc ulations of estimated GFR are performed using the 2020 CKD-EPI Study Refit equation without the race variable for the IDMS-Traceable creatinine methods. https://jasn.asnjournals.org/content/early/ASN.22938 57683 Performed By: #### 5 3315-8 #### FERNANDO CARBAJAL ([id number]) [facility] ([facility]) [address] [place] [address] 96269 Glucose [Mass/Vol] 101 mg/dL High 74-99 [facility] Comment on above: Performed By: #### 5 3315-8 #### FERNANDO CARBAJAL ([id number]) [facility] ([facility]) [address] [place] [address] 04673 Phosphate [Mass/Vol] 4.2 mg/dL Normal 2.5-4.9 [facility] Comment on above: Result Comment: The performance characteristics of phosphorus testing in heparinized plasma have been validated by the individual laboratory site where testing is performed. Testing on heparinized plasma is not approved by the FDA; however, such approval is not necessary. Performed By: #### 5 3315-8 #### FERNANDO CARBAJAL ([id number]) [facility] ([facility]) [address] [place] [address] 46618 Potassium [Moles/Vol] 4.8 mmol/L Normal 3.5-5.3 [facility] Comment on above: Performed By: #### 5 3315-8 #### FERNANDO CARBAJAL ([id number]) [facility] ([facility]) [address] [place] [address] 27344 Sodium [Moles/Vol] 136 mmol/L Normal 136-145 [facility] Comment on above: Performed By: #### 5 3315-8 #### FERNANDO CARBAJAL ([id number]) [facility] ([facility]) [address] [place] [address] 29242 Urea nitrogen [Mass/Vol] 60 mg/dL High 6- [facility] Comment on above: Performed By: #### 5 3315-8 #### FERNANDO CARBAJAL ([id number]) [facility] ([facility]) [address] [place] [address] 73438 Bacteria identifiedon 2023 Bacteria identified Cx Nom (U) Test: Urine Culture Specimen Source: Clean Catch/Voided Specimen Type: Urine Specimen Date: 03/05/2024 190 Result Date: 03/07/2024 0951 Result Status: Final result Abnormal: No Resulting Lab: [facility] [address] [place] [address] CULTURE No significant growth [facility] Comment on above: Performed By: #### 2 524-7 #### FERNANDO CARBAJAL ([id number]) [facility] ([facility]) [address] [place] [address] 04599 Bacteria identified Cx Nom (Bld) Test: Blood Culture Specimen Source: Dialysis Specimen Type: Blood culture Specimen Date: 03/05/2024 1222 Result Date: 03/09/2024 1601 Result Status: Final result Abnormal: No Resulting Lab: [facility] [address] [place] [address] CULTURE No growth at 4 days - FINAL REPORT Normal [facility] Comment on above: Performed By: #### 5 3305-8 ###Tj CARBAJAL ([id number]) [facility] ([facility]) [address] [place] [address] Bacteria identified Cx Nom (Bld) Test: Blood Culture Specimen Source: Peripheral Venipuncture Specimen Type: Blood culture Specimen Date: 03/05/2024 1222 Result Date: 03/09/2024 1601 Result Status: Final result Abnormal: No Resulting Lab: [facility] [id number] [place] [address] CULTURE No growth at 4 days - FINAL REPORT Normal [facility] Comment on above: Performed By: #### 5 3315-8 #### FERNANDO CARBAJAL ([id number]) [facility] ([facility]) [facility] [place] [address] CBC W Auto Differential pane l (Bld)on 03-05-2024 Basophils (Bld) [#/Vol] 0.03 10*3/uL [facility] Basophils/100 WBC (Bld) 0.3 % 0.0 - 2.0 % [facility] Eosinophils (Bld) [#/Vol] 0.14 10*3/uL [facility] Eosinophils/100 WBC (Bld) 1.4 % 0.0 - 6.0 % [facility] Erythrocyte distribution width (RBC) [Ratio] 15.0 % High 11.5 - 14.5 % [facility] Hematocrit (Bld) [Volume fraction] 28.7 % Low 41.0 - 52.0 % [facility] Hemoglobin (Bld) [Mass/Vol] 8.9 g/dL Low 13.5 - 17.5 g/dL [facility] Immature granulocytes (Bld) [#/Vol] 0.04 10*3/uL [facility] Immature granulocytes/100 WBC (Bld) 0.4 % 0.0 - 0.9 % [facility] Comment on above: Immature Granulocyte Count (IG) includes promyelocytes, myelocytes and metamyelocytes but does not include bands. Percent differential counts (%) should be interpreted in the context of the absolute cell counts (cells/UL). Interpretation and review of laboratory results Abnormal [facility] Lymphocytes (Bld) [#/Vol] 1.02 10*3/uL [facility] Lymphocytes/100 WBC (Bld) 10.2 % 13.0 - 44.0 % [facility] MCH (RBC) [Entitic mass] 30.3 pg 26.0 - 34.0 pg [facility] MCHC (RBC) [Mass/Vol] 31.0 g/dL Low 32.0 - 36.0 g/dL [facility] MCV (RBC) [Entitic vol] 98 fL 80 - 100 fL [facility] Monocytes (Bld) [#/Vol] 0.73 10*3/uL [facility] Monocytes/100 WBC (Bld) 7.3 % 2.0 - 10.0 % [facility] Neutrophils (Bld) [#/Vol] 8.05 10*3/uL High [facility] Comment on above: Percent differential counts (%) should be interpreted in the context of the absolute cell counts (cells/uL). Neutrophils/100 WBC (Bld) 80.4 % 40.0 - 80.0 % [facility] Nucleated RBC/100 WBC (Bld) [Ratio] 0.0 % [facility] Platelets (Bld) [#/Vol] 207 10*3/uL [facility] RBC (Bld) [#/Vol] 2.94 10*6/uL Low [facility] WBC (Bld) [#/Vol] 10.0 10*3/uL [facility] Basophils (Bld) [#/Vol] 0.03 x10*3/uL Normal 0.00-0.10 [facility] Comment on above: Performed By: #### 5 8077-9 #### FERNANDO CARBAJAL ([id number]) [facility] ([facility]) [address] [place] [address] 28293 Basophils/100 WBC (Bld) 0.3 % Normal 0.0-2.0 [facility] Comment on above: Performed By: #### 5 8077-9 #### FERNANDO CARBAJAL ([id number]) [facility] ([facility]) [address] [place] [address] 51720 Eosinophils (Bld) [#/Vol] 0.14 x10*3/uL Normal 0.00-0.40 [facility] Comment on above: Performed By: #### 5 8077-9 #### FERNANDO CARBAJAL ([id number]) [facility] ([facility]) [address] [place] [address] 66909 Eosinophils/100 WBC (Bld) 1.4 % Normal 0.0-6.0 [facility] Comment on above: Performed By: #### 5 8077-9 #### FERNANDO CARBAJAL ([id number]) [facility] ([facility]) [address] [place] [address] Erythrocyte distribution width (RBC) [Ratio] 15.0 % High 11.5-14.5 [facility] Comment on above: Performed By: #### 5 8077-9 #### FERNANDO CARBAJAL ([id number]) [facility] ([facility]) [address] [place] [address] Hematocrit (Bld) [Volume fraction] 28.7 % Low 41.0-52.0 [facility] Comment on above: Performed By: #### 5 8077-9 #### FERNANDO CARBAJAL ([id number]) [facility] ([facility]) [address] [place] [address] 57311 Hemoglobin (Bld) [Mass/Vol] 8.9 g/dL Low 13.5-17.5 [facility] Comment on above: Performed By: #### 5 8077-9 #### FERNANDO CARBAJAL ([id number]) [facility] ([facility]) [address] [place] [address] 18071 Immature granulocytes (Bld) [#/Vol] 0.04 x10*3/uL Normal 0.00-0.50 [facility] Comment on above: Performed By: #### 5 8077-9 #### FERNANDO CARBAJAL ([id number]) [facility] ([facility]) [address] [place] [address] 04965 Immature granulocytes/100 WBC (Bld) 0.4 % Normal 0.0-0.9 [facility] Comment on above: Result Comment: Lub[place] ture Granulocyte Count (IG) includes promyelocytes, myelocytes and metamyelocytes but does not include bands. Percent differential counts (%) should be interpreted in the context of the absolute cell counts (cells/UL). Performed By: #### 5 8077-9 #### FERNANDO CARBAJAL ([id number]) [facility] ([facility]) [address] [place] [address] Lymphocytes (Bld) [#/Vol] 1.02 x10*3/uL Normal 0.80-3.00 [facility] Comment on above: Performed By: #### 5 8077-9 #### FERNANDO CARBAJAL ([id number]) [facility] ([facility]) [address] [place], [place] [address] Lymphocytes/100 WBC (Bld) 10.2 % Normal 13.0-44.0 [facility] Comment on above: Performed By: #### 5 8077-9 #### FERNANDO CARBAJAL ([id number]) [facility] ([facility]) [address] [place] [address] 07002 MCH (RBC) [Entitic mass] 30.3 pg Normal 26.0-34.0 [facility] Comment on above: Performed By: #### 5 8077-9 #### FERNANDO CARBAJAL ([id number]) [facility] ([facility]) [address] [place] [address] 40595 MCHC (RBC) [Mass/Vol] 31.0 g/dL Low 32.0-36.0 [facility] Comment on above: Performed By: #### 5 8077-9 #### FERNANDO CARBAJAL ([id number]) [facility] ([facility]) [address] [place] [address] 03420 MCV (RBC) [Entitic vol] 98 fL Normal 80-100 [facility] Comment on above: Performed By: #### 5 8077-9 #### FERNANDO CARBAJAL ([id number]) [facility] ([facility]) [address] [place] [address] 84334 Monocytes (Bld) [#/Vol] 0.73 x10*3/uL Normal 0.05-0.80 [facility] Comment on above: Performed By: #### 5 8077-9 #### FERNANDO CARBAJAL ([id number]) [facility] ([facility]) [address] [place] [address] 40541 Monocytes/100 WBC (Bld) 7.3 % Normal 2.0-10.0 [facility] Comment on above: Performed By: #### 5 8077-9 #### FERNANDO CARBAJAL ([id number]) [facility] ([facility]) [address] [place] [address] 66555 Neutrophils (Bld) [#/Vol] 8.05 x10*3/uL High 1.60-5.50 [facility] Comment on above: Result Comment: Perc ent differential counts (%) should be interpreted in the context of the absolute cell counts (cells/uL). Performed By: #### 5 8077-9 #### FERNANDO CARBAJAL ([id number]) [facility] ([facility]) [address] [place] [address] 85232 Neutrophils/100 WBC (Bld) 80.4 % Normal 40.0-80.0 [facility] Comment on above: Performed By: #### 5 8077-9 #### FERNANDO CARBAJAL ([id number]) [facility] ([facility]) [address] [place] [address] 20911 Nucleated RBC/100 WBC (Bld) [Ratio] 0.0 /100 WBCs Normal 0.0-0.0 [facility] Comment on above: Performed By: #### 5 8077-9 #### FERNANDO CARBAJAL ([id number]) [facility] ([facility]) [address] [place] [address] 66550 Platelets (Bld) [#/Vol] 207 x10*3/uL Normal 150-450 [facility] Comment on above: Performed By: #### 5 8077-9 #### FERNANDO CARBAJAL ([id number]) [facility] ([facility]) [address] [place] [address] 52193 RBC (Bld) [#/Vol] 2.94 x10*6/uL Low 4.50-5.90 [facility] Comment on above: Performed By: #### 5 8077-9 #### FERNANDO RAVEN ([id number]) [facility] ([facility]) [address] [place] [address] WBC (Bld) [#/Vol] 10.0 x10*3/uL Normal 4.4-11.3 [facility] Comment on above: Performed By: #### 5 8077-9 #### FERNANDO RAVEN ([id number]) [facility] ([facility]) [facility] [place] [address] CT ABDOMEN PELVIS WO IV CONT RASTon 03-05-2024 CT ABDOMEN PELVIS WO IV CONTRAST STUDY: CT Abdomen and Pelvis without IV Contrast; 03/05/2024, 7:11 PM. INDICATION: Pyelonephritis, concern for fecal fistula. COMPARISON: CT CAP: 02/10/24. ACCESSION NUMBER(S): [id number] ORDERING CLINICIAN: DAILY COATES TECHNIQUE: CT of the abdomen and pelvis was performed. Contiguous axial images were obtained at 3 mm slice thickness through the abdomen and pelvis. Coronal and sagittal reconstructions at 3 mm slice thickness were performed. No intravenous contrast was administered. Automated mA/kV exposure control was utilized and patient examination was performed in strict accordance with principles of ALARA. FINDINGS: Please note that the evaluation of vessels, lymph nodes and organs is limited without intravenous contrast. Abdomen: No significant abnormalities are detectable in the liver, spleen, pancreas, adrenal glands, or biliary system. A percutaneous left nephrostomy remains in place, coiled in the left renal pelvis. Left kidney is moderately atrophic, similar to prior. Right nephroureteral stent also remains, unchanged in position. There is interval development of moderate proximal hydronephrosis of the right renal pelvis and calyces with transition at the UPJ. There is minimal air within the dilated right renal calyces. There is no detectable adjacent fistula with bowel. Abdominal aorta is tortuous, normal caliber. There is no bulky or localizing retroperitoneal lymphadenopathy. There is no retroperitoneal hematoma. The stomach is distended. There is minimal air distention in the small bowel. There is moderate stool burden colon, with scattered diverticulosis. There is no abscess, obstruction, or free air. Pelvis: The bladder is decompressed with a Jamison catheter in place. Stool distends the rectum. There are numerous calcified phleboliths. There are no inguinal hernias. Skeletal: Left hip arthroplasty is in place. There is mild spondylosis throughout the lumbar spine, including sclerosis in the posterior elements of the lower lumbar spine. Lower chest: Heart is top normal size. There is focal bibasilar atelectasis. There are no pleural effusions. IMPRESSION: 1. Interval development of moderate proximal right hydronephrosis with transition at the UPJ. 2. Indwelling right nephroureteral stent remains in place traversing the UPJ. 3. There is minimal air within the distended right renal calyces. 4. No detectable fistula to adjacent bowel. 5. Remainder as above. Signed by Ronnie Driver MD [facility] CT Abdomen WO contraston 1. Interval development of moderate proximal right hydronephrosis with transition at the UPJ. 2. Indwelling right nephroureteral stent remains in place traversing the UPJ. 3. There is minimal air within the distended right renal calyces. 4. No detectable fistula to adjacent bowel. 5. Remainder as above. Signed by Ronnie Driver MD TELERADIOLOGY STUDY: CT Abdomen and Pelvis without IV Contrast; 03/05/2024, 7:11 PM. INDICATION: Pyelonephritis, concern for fecal fistula. COMPARISON: CT CAP: 02/10/24. ACCESSION NUMBER(S): [id number] ORDERING CLINICIAN: DAILY COATSE TECHNIQUE: CT of the abdomen and pelvis was performed. Contiguous axial images were obtained at 3 mm slice thickness through the abdomen and pelvis. Coronal and sagittal reconstructions at 3 mm slice thickness were performed. No intravenous contrast was administered. Automated mA/kV exposure control was utilized and patient examination was performed in strict accordance with principles of ALARA. FINDINGS: Please note that the evaluation of vessels, lymph nodes and organs is limited without intravenous contrast. Abdomen: No significant abnormalities are detectable in the liver, spleen, pancreas, adrenal glands, or biliary system. A percutaneous left nephrostomy remains in place, coiled in the left renal pelvis. Left kidney is moderately atrophic, similar to prior. Right nephroureteral stent also remains, unchanged in position. There is interval development of moderate proximal hydronephrosis of the right renal pelvis and calyces with transition at the UPJ. There is minimal air within the dilated right renal calyces. There is no detectable adjacent fistula with bowel. Abdominal aorta is tortuous, normal caliber. There is no bulky or localizing retroperitoneal lymphadenopathy. There is no retroperitoneal hematoma. The stomach is distended. There is minimal air distention in the small bowel. There is moderate stool burden colon, with scattered diverticulosis. There is no abscess, obstruction, or free air. Pelvis: The bladder is decompressed with a Jamison catheter in place. Stool distends the rectum. There are numerous calcified phleboliths. There are no inguinal hernias. Skeletal: Left hip arthroplasty is in place. There is mild spondylosis throughout the lumbar spine, including sclerosis in the posterior elements of the lower lumbar spine. Lower chest: Heart is top normal size. There is focal bibasilar atelectasis. There are no pleural effusions. TELERADIOLOGY Ronnie Driver MD - 03/05/2024 STUDY: CT Abdomen and Pelvis without IV Contrast; 03/05/2024, 7:11 PM. INDICATION: Pyelonephritis, concern for fecal fistula. COMPARISON: CT CAP: 02/10/24. ACCESSION NUMBER(S): [id number] ORDERING CLINICIAN: DAILY COATES TECHNIQUE: CT of the abdomen and pelvis was performed. Contiguous axial images were obtained at 3 mm slice thickness through the abdomen and pelvis. Coronal and sagittal reconstructions at 3 mm slice thickness were performed. No intravenous contrast was administered. Automated mA/kV exposure control was utilized and patient examination was performed in strict accordance with principles of ALARA. FINDINGS: Please note that the evaluation of vessels, lymph nodes and organs is limited without intravenous contrast. Abdomen: No significant abnormalities are detectable in the liver, spleen, pancreas, adrenal glands, or biliary system. A percutaneous left nephrostomy remains in place, coiled in the left renal pelvis. Left kidney is moderately atrophic, similar to prior. Right nephroureteral stent also remains, unchanged in position. There is interval development of moderate proximal hydronephrosis of the right renal pelvis and calyces with transition at the UPJ. There is minimal air within the dilated right renal calyces. There is no detectable adjacent fistula with bowel. Abdominal aorta is tortuous, normal caliber. There is no bulky or localizing retroperitoneal lymphadenopathy. There is no retroperitoneal hematoma. The stomach is distended. There is minimal air distention in the small bowel. There is moderate stool burden colon, with scattered diverticulosis. There is no abscess, obstruction, or free air. Pelvis: The bladder is decompressed with a Jamison catheter in place. Stool distends the rectum. There are numerous calcified phleboliths. There are no inguinal hernias. Skeletal: Left hip arthroplasty is in place. There is mild spondylosis throughout the lumbar spine, including sclerosis in the posterior elements of the lower lumbar spine. Lower chest: Heart is top normal size. There is focal bibasilar atelectasis. There are no pleural effusions. IMPRESSION: 1. Interval development of moderate proximal right hydronephrosis with transition at the UPJ. 2. Indwelling right nephroureteral stent remains in place traversing the UPJ. 3. There is minimal air within the distended right renal calyces. 4. No detectable fistula to adjacent bowel. 5. Remainder as above. Signed by Ronnie Dirver MD [facility] Work Phone: Radiology Study observation (narrative) [facility] Work Phone: CT Abdomen WO contrastOrdere d By: Ronnie Driver on 03-05-2024 [facility] Work Phone: Comprehensive metabolic 2000 panelon 03-05-2024 Albumin BCP dye [Mass/Vol] 3.1 g/dL Low 3.4 - 5.0 g/dL [facility] ALP [Catalytic activity/Vol] 59 U/L 33 - 136 U/L [facility] ALT With P-5'-P [Catalytic activity/Vol] 11 U/L 10 - 52 U/L [facility] Comment on above: Patients treated wit h Sulfasalazine may generate falsely decreased results for ALT. Anion gap [Moles/Vol] 14 mmol/L 10 - 2 0 mmol/L [facility] AST With P-5'-P [Catalytic activity/Vol] 10 U/L 9 - 39 U/L [facility] Bilirubin [Mass/Vol] 0.4 mg/dL 0.0 - 1 .2 mg/dL [facility] Calcium [Mass/Vol] 8.3 mg/dL Low 8.6 - 10. 3 mg/dL [facility] Chloride [Moles/Vol] 101 mmol/L 98 - 10 7 mmol/L [facility] CO2 [Moles/Vol] 28 mmol/L 21 - 32 mmol/L [facility] Creatinine [Mass/Vol] 5.18 mg/dL High 0.50 - 1.30 mg/dL [facility] GFR/1.73 sq M.predicted among non-blacks MDRD (S/P/Bld) [Vol rate/Area] 11 mL/min/{1.73_m2} Low - PINF [facility] Comment on above: Calculations of alejandra mated GFR are performed using the 2020 CKD-EPI Study Refit equation without the race variable for the IDMS-Traceable creatinine methods. https://jasn.asnjournals.org/content/early//ASN.99971 35684 Glucose [Mass/Vol] 104 mg/dL High 74 - 99 mg/dL [facility] Interpretation and review of laboratory results Abnormal [facility] Potassium [Moles/Vol] 5.8 mmol/L High 3.5 - 5.3 mmol/L [facility] Protein [Mass/Vol] 6.4 g/dL 6.4 - 8.2 g/dL [facility] Sodium [Moles/Vol] 137 mmol/L 136 - 145 mmol/L [facility] Urea nitrogen [Mass/Vol] 52 mg/dL High 6 - 23 mg/dL [facility] Albumin BCP dye [Mass/Vol] 3.1 g/dL Low 3.4-5.0 [facility] Comment on above: Performed By: #### 5 3315-8 #### FERNANDO CARBAJAL ([id number]) [facility] ([facility]) [address] [place] [address] 84266 ALP [Catalytic activity/Vol] 59 U/L Normal 33-136 [facility] Comment on above: Performed By: #### 5 3315-8 #### FERNANDO CARBAJAL ([id number]) [facility] ([facility]) [address] [place] [address] 43630 ALT With P-5'-P [Catalytic activity/Vol] 11 U/L Normal 10-52 [facility] Comment on above: Result Comment: Rhea ents treated with Sulfasalazine may generate falsely decreased results for ALT. Performed By: #### 5 5-8 #### FERNANDO CARBAJAL ([id number]) [facility] ([facility]) [address] [place] [address] Anion gap [Moles/Vol] 14 mmol/L Normal 10-20 [facility] Comment on above: Performed By: #### 5 3314-8 #### FERNANDO CARBAJAL ([id number]) [facility] ([facility]) [address] [place] [address] AST With P-5'-P [Catalytic activity/Vol] 10 U/L Normal 9-39 [facility] Comment on above: Performed By: #### 5 5-8 #### FERNANDO CARBAJAL ([id number]) [facility] ([facility]) [address] [place] [address] Bilirubin [Mass/Vol] 0.4 mg/dL Normal 0.0-1.2 [facility] Comment on above: Performed By: #### 5 5-8 #### FERNANDO CARBAJAL ([id number]) [facility] ([facility]) [address] [place] [address] 46567 Calcium [Mass/Vol] 8.3 mg/dL Low 8.6-10.3 [facility] Comment on above: Performed By: #### 5 5-8 #### FERNANDO CARBAJAL ([id number]) [facility] ([facility]) [facility] [place] [address] Chloride [Moles/Vol] 101 mmol/L Normal 98-107 [facility] Comment on above: Performed By: #### 5 5-8 #### FERNANDO CARBAJAL ([id number]) [facility] ([facility]) [address] [place] [address] 95305 CO2 [Moles/Vol] 28 mmol/L Normal 21-32 [facility] Comment on above: Performed By: #### 5 5-8 #### FERNANDO CARBAJAL ([id number]) [facility] ([facility]) [address] [place] [address] Creatinine [Mass/Vol] 5.18 mg/dL High 0.50-1.30 [facility] Comment on above: Performed By: #### 5 3315-8 #### FERNANDO CARBAJAL ([id number]) [facility] ([facility]) [address] [place] [address] 30077 Glomerular filtration rate/1.73 sq M.predicted 11 mL/min/1.73m*2 Low >60 [facility] Comment on above: Result Comment: Calc ulations of estimated GFR are performed using the 2020 CKD-EPI Study Refit equation without the race variable for the IDMS-Traceable creatinine methods. https://jasn.asnjournals.org/content/early/ASN.73757 67047 Performed By: #### 5 3315-8 #### FERNANDO CARBAJAL ([id number]) [facility] ([facility]) [address] [place] [address] 77609 Glucose [Mass/Vol] 104 mg/dL High 74-99 [facility] Comment on above: Performed By: #### 5 3315-8 #### FERNANDO CARBAJAL ([id number]) [facility] ([facility]) [address] [place] [address] 18129 Potassium [Moles/Vol] 5.8 mmol/L High 3.5-5.3 [facility] Comment on above: Performed By: #### 5 3315-8 #### FERNANDO CARBAJAL ([id number]) [facility] ([facility]) [address] [place] [address] 80511 Protein [Mass/Vol] 6.4 g/dL Normal 6.4-8.2 [facility] Comment on above: Performed By: #### 5 3315-8 #### FERNANDO CARBAJAL ([id number]) [facility] ([facility]) [address] [place] [address] 69594 Sodium [Moles/Vol] 137 mmol/L Normal 136-145 [facility] Comment on above: Performed By: #### 5 3315-8 #### FERNANDO CARBAJAL ([id number]) [facility] ([facility]) [address] [place] [address] Urea nitrogen [Mass/Vol] 52 mg/dL High 6-23 [facility] Comment on above: Performed By: #### 5 3315-8 #### FERNANDO CARBAJAL ([id number]) [facility] ([facility]) [address] [place], [place] [address] Magnesiumon 03-05-2024 Magnesium [Mass/Vol] 1.84 mg/dL 1.60 - 2.40 mg/dL [facility] Magnesium [Mass/Vol] 1.84 mg/dL Normal 1.60-2.40 [facility] Comment on above: Performed By: #### 5 8077-9 #### FERNANDO CARBAJAL ([id number]) [facility] ([facility]) [address] [place] [address] No Panel Informationon 03-05 Interpretation and review of laboratory results Abnormal [facility] Extra Tube Hold for add-ons. [facility] Comment on above: Auto resulted. [facility] Interpretation and review of laboratory results Normal [facility] Phosphateon 03-05-2024 Phosphate [Mass/Vol] 3.3 mg/dL Normal 2.5-4.9 [facility] Comment on above: Result Comment: The performance characteristics of phosphorus testing in heparinized plasma have been validated by the individual laboratory site where testing is performed. Testing on heparinized plasma is not approved by the FDA; however, such approval is not necessary. Performed By: #### 5 3315-8 #### FERNANDO CARBAJAL ([id number]) [facility] ([facility]) [address] [place], [place] [address] Phosphoruson 03-05-2024 Phosphate [Mass/Vol] 3.3 mg/dL 2.5 - 4 .9 mg/dL [facility] Comment on above: The performance herve acteristics of phosphorus testing in heparinized plasma have been validated by the individual laboratory site where testing is performed. Testing on heparinized plasma is not approved by the FDA; however, such approval is not necessary. URINALYSISon 03-05-2024 Amorphous NONE Normal [facility] Comment on above: Performed By: #### 2 55482 #### [facility],[address] [place] [address] 07012 Bacteria 4+ Normal [facility] Comment on above: Performed By: #### 2 64356 #### [facility],[address] [place], [place] [address] Bilirubin Ql (U) Negative Normal NORMAL: NEGATIVE [facility] Comment on above: Performed By: #### 2 53417 #### [facility],[address] [place] [address] Casts NONE Normal [facility] Comment on above: Performed By: #### 2 94638 #### [facility],[address] [place], [place] [address] Clarity (U) very cloudy Normal NORMAL: CLEAR [facility] Comment on above: Performed By: #### 2 52100 #### [facility],[address] [place], [place] [address] Color (U) yellow Normal NORMAL: YELLOW [facility] Comment on above: Performed By: #### 2 61966 #### [facility],[address] [place] [address] 92534 Crystals LM Nom (Urine sed) NONE Normal [facility] Comment on above: Performed By: #### 2 47989 #### [facility],[address] [place] [address] 66943 Epi Cells FEW Normal [facility] Comment on above: Performed By: #### 2 52455 #### [facility],[address] [place] [address] 11381 Glucose Ql (U) NORM Normal NORMAL: NORMAL [facility] Comment on above: Performed By: #### 2 39518 #### [facility],[address] [place] [address] 35703 Hemoglobin Ql (U) 250 Abnormal NORMAL: NEGATIVE [facility] Comment on above: Performed By: #### 2 65162 #### [facility],[address] [place] [address] 90322 Ketone Negative Normal NORMAL: NEGATIVE [facility] Comment on above: Performed By: #### 2 32137 #### [facility],[address] [place] [address] 02331 Leukocytes 500 Abnormal NORMAL: NEGATIVE [facility] Comment on above: Performed By: #### 2 05203 #### [facility],[address] [place] [address] 56707 Mucous NONE Normal [facility] Comment on above: Performed By: #### 2 89106 #### [facility],[address] [place] [address] 35571 Nitrite Ql (U) Positive Normal NORMAL: NEGATIVE [facility] Comment on above: Performed By: #### 2 10629 #### [facility],[address] [place] [address] 04927 pH (U) 7 [pH] Normal NORMAL: 5.0-8.0 [facility] Comment on above: Performed By: #### 2 88152 #### [facility],[address] [place] [address] 53489 Protein Ql (U) 500 Abnormal NORMAL: NEGATIVE [facility] Comment on above: Performed By: #### 2 12849 #### [facility],[address] [place] [address] 83515 Rbc 25-30 Normal 0-3/hpf [facility] Comment on above: Performed By: #### 2 70914 #### [facility],[address] [place] [address] 19147 Sp Zoar 1.010 Normal NORMAL: 1.010-1.030 [facility] Comment on above: Performed By: #### 2 50315 #### [facility],[address] [place] [address] Specimen Type Jamison Normal [facility] Comment on above: Performed By: #### 2 41698 #### [facility],[address] [place] [address] Urinalysis dipstick W Reflex Microscopic panel (U) SEE BELOW Normal [facility] Comment on above: Result Comment: MICR OSCOPIC Performed By: #### 2 26677 #### [facility],[address] [place] [address] Urobilinog NORM Normal NORMAL: NORMAL [facility] Comment on above: Performed By: #### 2 17027 #### [facility],[address] [place] [address] WBC (U) [#/Vol] /uL Normal 0-5/hpf [facility] Comment on above: Performed By: #### 2 24084 #### [facility],[address] [place] [address] Yeast NONE Normal [facility] Comment on above: Performed By: #### 2 77605 #### [facility],[address] [place] [address] Urinalysis complete W Reflex Culture panel (U)on 03-05-2024 Appearance (U) Ex.Turbid Abnormal Clear [facility] Bilirubin (U) [Mass/Vol] Negative NEGATIVE [facility] Color (U) Light-[place] Abnormal Light-Yellow , Yellow, Dark-Yellow [facility] Glucose Auto test strip (U) [Mass/Vol] Normal Normal mg/dL [facility] Ketones (U) [Mass/Vol] Negative NEGAT AUDI mg/dL [facility] Leukocyte esterase Auto test strip Ql (U) 500 Doris/ L Abnormal NEGATIVE [facility] Nitrite Auto test strip Ql (U) Negative NEGATIVE [facility] pH (U) 8.0 [pH] 5.0, 5.5, 6.0, 6.5, 7.0, 7.5, 8.0 [facility] Protein (U) [Mass/Vol] 300 (3+) Abnormal NEGAT AUDI, 10 (TRACE), 20 (TRACE) mg/dL [facility] RBC (U) [#/Vol] OVER (3+) Abnormal NEGATIVE [facility] Specific gravity (U) [Rel density] 1.011 1.005 - 1.035 [facility] Urobilinogen (U) [Mass/Vol] Normal Normal mg/dL [facility] OVER is reported whe n the result is greater than the clinically reportable range. [facility] Appearance (U) Ex.Turbid Normal Clear [facility] Comment on above: Order Comment: OVER is reported when the result is greater than the clinically reportable range. Performed By: #### 5 3315-8 #### FERNNADO CARBAJAL ([id number]) [facility] ([facility]) [address] [place] [address] Bilirubin (U) [Mass/Vol] Negative Normal NEGATIVE [facility] Comment on above: Order Comment: OVER is reported when the result is greater than the clinically reportable range. Performed By: #### 5 3315-8 #### FERNANDO CARBAJAL ([id number]) [facility] ([facility]) [address] [place] [address] Color (U) Light-[place] Normal Light-Yellow , Yellow, Dark-Yellow [facility] Comment on above: Order Comment: OVER is reported when the result is greater than the clinically reportable range. Performed By: #### 5 3315-8 #### FERNANDO CARBAJAL ([id number]) [facility] ([facility]) [address] [place], [place] [address] Glucose Auto test strip (U) [Mass/Vol] Normal Normal Normal [facility] Comment on above: Order Comment: OVER is reported when the result is greater than the clinically reportable range. Performed By: #### 5 3315-8 #### FERNANDO CARBAJAL ([id number]) [facility] ([facility]) [address] [place] [address]885 Ketones (U) [Mass/Vol] Negative Normal [facility]IVE [facility] Comment on above: Order Comment: OVER is reported when the result is greater than the clinically reportable range. Performed By: #### 5 3315-8 #### FERNANDO CARBAJAL ([id number]) [facility] ([facility]) [address] [place] [address] 02256 Leukocyte esterase Auto test strip Ql (U) 500 Doris/???L Abnormal NEGATIVE [facility] Comment on above: Order Comment: OVER is reported when the result is greater than the clinically reportable range. Performed By: #### 5 3315-8 #### FERNANDO CARBAJAL ([id number]) [facility] ([facility]) [address] [place] [address] Nitrite Auto test strip Ql (U) Negative Normal NEGATIVE [facility] Comment on above: Order Comment: OVER is reported when the result is greater than the clinically reportable range. Performed By: #### 5 3315-8 #### FERNANDO CARBAJAL ([id number]) [facility] ([facility]) [address] [place] [address] pH (U) 8.0 [pH] Normal 5.0, 5.5, 6.0, 6.5, 7.0, 7.5, 8.0 [facility] Comment on above: Order Comment: OVER is reported when the result is greater than the clinically reportable range. Performed By: #### 5 3315-8 #### FERNANDO CARBAJAL ([id number]) [facility] ([facility]) [address] [place] [address] 06683 Protein (U) [Mass/Vol] 300 (3+) Abnormal NEGAT AUDI, 10 (TRACE), 20 (TRACE) [facility] Comment on above: Order Comment: OVER is reported when the result is greater than the clinically reportable range. Performed By: #### 5 3315-8 #### FERNANDO CARBAJAL ([id number]) [facility] ([facility]) [address] [place] [address] 75734 RBC (U) [#/Vol] OVER (3+) Abnormal NEGATIVE [facility] Comment on above: Order Comment: OVER is reported when the result is greater than the clinically reportable range. Performed By: #### 5 3315-8 #### FERNADNO CARBAJAL ([id number]) [facility] ([facility]) [address] [place] [address] Specific gravity (U) [Rel density] 1.011 Normal 1.005-1.035 [facility] Comment on above: Order Comment: OVER is reported when the result is greater than the clinically reportable range. Performed By: #### 5 5-8 #### FERNANDO CARBAJAL ([id number]) [facility] ([facility]) [address] [place] [address] Urobilinogen (U) [Mass/Vol] Normal Normal Normal [facility] Comment on above: Order Comment: OVER is reported when the result is greater than the clinically reportable range. Performed By: #### 5 3315-8 #### FERNANDO CARBAJAL ([id number]) [facility] ([facility]) [address] [place] [address] Urinalysis microscopic panel Auto Ql (U)on 03-05-2024 Bacteria Auto (Urine sed) [#/Area] 1+ Abnormal NONE SEEN /HPF [facility] Leukocyte clumps Auto (Urine sed) [#/Area] MODERATE Reference range not established. /HPF [facility] RBC Auto (Urine sed) [#/Area] >20 Abnormal NONE, 1-2, 3-5 /HPF [facility] WBC Auto (Urine sed) [#/Area] >50 Abnormal 1-5, NONE /HPF [facility] Bacteria Auto (Urine sed) [#/Area] 1+ /HPF Abnormal NONE SEEN [facility] Comment on above: Performed By: #### 5 3315-8 #### FERNANDO CARBAJAL ([id number]) [facility] ([facility]) [address] [place], [place] [address] Leukocyte clumps Auto (Urine sed) [#/Area] MODERATE Normal Reference range not established. [facility] Comment on above: Performed By: #### 5 3315-8 #### FERNANDO CARBAJAL ([id number]) [facility] ([facility]) [address] [place] [address] RBC Auto (Urine sed) [#/Area] >20 Abnormal NONE, 1-2, 3-5 [facility] Comment on above: Performed By: #### 5 3315-8 #### FERNANDO CARBAJAL ([id number]) [facility] ([facility]) [address] [place] [address] WBC Auto (Urine sed) [#/Area] >50 Abnormal 1-5, NONE [facility] Comment on above: Performed By: #### 5 3315-8 #### FERNANDO CARBAJAL ([id number]) [facility] ([facility]) [address] [place] [address] CBC + DIFFon 03-04-2024 Baso # 0.03 x10EE3/UL Normal 0.00 - 0.10 [facility] Comment on above: Performed By: #### 2 76395 #### [facility],[address] [place] [address] 63248 Basophils/100 WBC (Bld) 0.3 % Normal 0.0 - 2.0 [facility] Comment on above: Performed By: #### 2 44541 #### [facility],[address] [place] [address] 76748 CBC + DIFF Normal [facility] Comment on above: Result Comment: CBC- COMPLETE BLOOD COUNT Performed By: #### 2 04362 #### [facility],[address] [place] [address] 59641 EO # 0.03 x10EE3/UL Normal 0.00 - 0.50 [facility] Comment on above: Performed By: #### 2 56714 #### [facility],[address] [place] [address] 53132 Eosinophils/100 WBC (Bld) 0.4 % Normal 0.0 - 7.0 [facility] Comment on above: Performed By: #### 2 77679 #### [facility],[address] [place] [address] 22313 Erythrocyte distribution width (RBC) [Ratio] 14.4 % Normal 12.0 - 15.6 [facility] Comment on above: Performed By: #### 2 60983 #### [facility],[address] [place], [place] [address] Hematocrit (Bld) [Volume fraction] 31.1 % Low 40.0 - 52.0 [facility] Comment on above: Performed By: #### 2 46883 #### [facility],[address] [place] [address] Hemoglobin (Bld) [Mass/Vol] 9.7 g/dL Low 13.0 - 17.5 [facility] Comment on above: Performed By: #### 2 61807 #### [facility],[address] [place] [address] Lymph # 0.67 x10EE3/UL Low 0.80 - 2.80 [facility] Comment on above: Performed By: #### 2 77079 #### [place] [id number] Lymphocytes/100 WBC (Bld) 7.0 % Low 20.0 - 45.0 [facility] Comment on above: Performed By: #### 2 57709 #### [facility],[address] [place], [place] [id number] MANUAL DIFF N/A Normal [facility] Comment on above: Performed By: #### 2 57538 #### [facility],[address] [place] [address] 31715 MCH (RBC) [Entitic mass] 30 pg Normal 27 - 33 [facility] Comment on above: Performed By: #### 2 30820 #### [facility],[address] [place] [address] 71570 MCHC 31 X10 3 Low 32 - 36 [facility] Comment on above: Performed By: #### 2 55922 #### [facility],[address] [place] [address] 38642 MCV (RBC) [Entitic vol] 95 fL Normal 81 - 98 [facility] Comment on above: Performed By: #### 2 82576 #### [facility],[address] [place] [address] 82918 Burnet # 0.45 x10EE3/UL Normal 0.20 - 1.00 [facility] Comment on above: Performed By: #### 2 85864 #### [facility],[address] [place] [address] 81674 MONOS % 4.7 % Normal 0.0 - 10.0 [facility] Comment on above: Performed By: #### 2 94570 #### [facility],[address] [place] [address] 32450 Morphology Benton (Bld) [Interp] N/A Normal [facility] Comment on above: Performed By: #### 2 11394 #### [facility],[address] [place] [address] 45040 Neut # 8.44 x10EE3/UL High 1.50 - 7.10 [facility] Comment on above: Performed By: #### 2 07776 #### [facility],[address] [place] [address] 57855 Neutrophils/100 WBC (Bld) 87.7 % High 46.0 - 76.0 [facility] Comment on above: Performed By: #### 2 30449 #### [facility],[address] [place] [address] 89198 PLATELET 247 x10EE3/UL Normal 150 - 450 [facility] Comment on above: Performed By: #### 2 29242 #### [facility],[address] [place] [address] 41752 Platelet mean volume (Bld) [Entitic vol] 8.2 fL Normal 6.4 - 10.5 [facility] Comment on above: Result Comment: AUTO MATED DIFFERENTIAL Performed By: #### 2 41469 #### [facility],[address] [place] [address] 59296 RBC 3.29 x 10EE6/UL Low 4.50 - 6.00 [facility] Comment on above: Performed By: #### 2 03383 #### [facility],[address] [place] [address] 88307 WBC 9.6 x 10EE3/UL Normal 4.5 - 10.8 [facility] Comment on above: Performed By: #### 2 02142 #### [facility],[address] [place] [address] 91405 CMP with eGFRon 03-04-2024 AGE 79 years Normal [facility] Comment on above: Performed By: #### 2 18642 #### [facility],[address] [place] [address] 09944 Albumin [Mass/Vol] 2.5 g/dL Low 3.4 - 5.0 [place] Comment on above: Performed By: #### 2 42841 #### [facility],[address] [place] [address] Albumin/Globulin [Mass ratio] 0.6 {ratio} Low 0.9 - 1.6 [facility] Comment on above: Performed By: #### 2 01541 #### [facility],[address] [place] [address] 01647 ALK PHOS 79 U/L Normal 46 - 116 [facility] Comment on above: Performed By: #### 2 67348 #### [facility],[address] [place] [address] 31367 ALT [Catalytic activity/Vol] 18 U/L Normal 16 - 63 [facility] Comment on above: Performed By: #### 2 55221 #### [facility],[address] [place] [address] 84904 Anion gap [Moles/Vol] 16 mmol/L Normal 10 - 20 [facility] Comment on above: Performed By: #### 2 31909 #### [facility],[address] [place] [address] 09260 AST [Catalytic activity/Vol] 16 U/L Normal 15 - 37 [facility] Comment on above: Performed By: #### 2 11635 #### [facility],[address] [place], [place] [address] B/C RATIO 10 ratio Normal 0 - 30 [facility] Comment on above: Performed By: #### 2 80609 #### [facility],[address] [place] [address] 15214 Bilirubin [Mass/Vol] 0.3 mg/dL Normal 0.2 - 1.0 [facility] Comment on above: Performed By: #### 2 18613 #### [facility],[address] [place] [address] Calcium [Mass/Vol] 8.0 mg/dL Low 8.5 - 10.1 [place] Comment on above: Performed By: #### 2 87529 #### [facility],[address] [place], [place] [address] Chloride [Moles/Vol] 101 mmol/L Normal 98 - 107 [facility] Comment on above: Performed By: #### 2 28960 #### [facility],[address] [place], [place] [address] CMP with eGFR Normal [facility] Comment on above: Result Comment: COMP REHENSIVE METABOLIC PANEL Performed By: #### 2 61414 #### [facility],[address] [place] [address] 53880 CO2 [Moles/Vol] 27.4 mmol/L Normal 21.0 - 32.0 [facility] Comment on above: Performed By: #### 2 27404 #### [facility],[address] [place] [address] 81856 Creatinine [Mass/Vol] 4.57 mg/dL High 0.70 - 1.30 [facility] Comment on above: Performed By: #### 2 24874 #### [facility],[address] [place] [address] 75585 eGFR 13 ML/MINUTE Low 60 - 999 [facility] Comment on above: Performed By: #### 2 49232 #### [facility],[address] [place] [address] 11029 eGFR(AA) 15 ML/MINUTE Low 60 - 999 [facility] Comment on above: Result Comment: ACCO RDING TO THE NATIONAL KIDNEY DISEASE EDUCATION PROGRAM(NKDE), A NORMAL eGFR IS A VALUE GREATER THAN OR EQUAL TO 60 ML/MIN/1.73 SQ METERS. CHRONIC KIDNEY DISEASE: <60mL/MIN/1.73 SQ METERS KIDNEY FAILURE: <15mL/MIN/1.73 SQ METERS THIS TEST SHOULD ONLY BE USED FOR PATIENTS 18 YEARS OF AGE AND OLDER. Performed By: #### 2 07784 #### [address] [address] Globulin (S) [Mass/Vol] 3.9 g/dL High 1.5 - 3.8 [facility] Comment on above: Performed By: #### 2 41207 #### [address] [address] Glucose [Mass/Vol] 158 mg/dL High 74 - 106 [place] Comment on above: Performed By: #### 2 01218 #### [address] [address] Potassium [Moles/Vol] 4.8 mmol/L Normal 3.5 - 5.1 [facility] Comment on above: Performed By: #### 2 60489 #### [address] [address] Protein [Mass/Vol] 6.4 g/dL Normal 6.4 - 8.2 [place] Comment on above: Performed By: #### 2 50295 #### [address] [address] Sodium [Moles/Vol] 140 mmol/L Normal 136 - 145 [place] Comment on above: Performed By: #### 2 43090 #### [facility],[address] [place] [address] 11726 Urea nitrogen [Mass/Vol] 45 mg/dL High 7 - 18 [facility] Comment on above: Performed By: #### 2 50479 #### [facility],[address] [place] [address] CHEST/ABD/PELVIS C-on CT CHEST/ABD/PELVIS C- [place] [id number] Patient: GENET BOOTH Phone#: : 1945 Age: 79 Gender: M Pt. Type: ER Account: [id number] Location: [facility] Ordering: CALVIN AZUL Exam Date: 03/04/2024/23:47 Family Phys: Charge Code: [id number] Physician: [place] Order #: [id number] Dose#: 12.3 PROCEDURE: CT CHEST/ABD/PELVIS WO COMPARISON: None. INDICATIONS: Abdominal pain. TECHNIQUE: CT images were obtained without the administration of intravenous contrast material. All CT scans at this facility use dose modulation, iterative reconstruction, and/or weight based dosing when appropriate to reduce radiation dose to as low as reasonably achievable. IV CONTRAST: No IV contrast used,0.0ml TOTAL DOSE: 12.3 CTDIvol(mGy) FINDINGS: Study limited by patient ability to position for the exam. Evaluation for adenopathy limited in the absence of intravenous contrast. LUNGS: Right lung is clear. Left lung there is dependent atelectasis, cannot exclude scarring. VASCULATURE: Unremarkable in size. Right neck approach central catheter, tip terminates at the SVC. JUNO: Limited evaluation for adenopathy in the absence of contrast. MEDIASTINUM: Normal. No mass or adenopathy. CARDIAC: Normal. No enlargement, pericardial thickening, or significant calcification. PLEURA: Normal. No mass or effusion. CHEST WALL: Normal. No mass or axillary adenopathy. LIVER: Unremarkable in contour BILIARY: Gallbladder is present PANCREAS: Unremarkable in contour SPLEEN: Unremarkable in contour KIDNEYS: Left renal atrophy. Left posterior approach percutaneous nephrostomy tube with the pigtail in the renal pelvis. No hydronephrosis. There are renal calcifications. Continued Report - Page 2 of 2 Patient: GENET BOOTH Phone#: : 1945 Age: 79 Gender: M Pt. Type: ER Account: [id number] Location: 052 Ordering: CALVIN AZUL Exam Date: 03/04/2024/23:47 Family Phys: Charge Code: [id number] Physician: [place] Order #: [id number] Dose#: 12.3 There is a double-J nephroureteral stent in the right kidney with pigtails in the urinary bladder and renal pelvis. There is right hydronephrosis. There is right perinephric stranding. There are foci of air in the right kidney. ADRENALS: Normal. No mass or enlargement. AORTA/VASCULAR: No aortic aneurysm. There are atherosclerotic calcifications of the aorta and branch vessels. RETROPERITONEUM: Limited evaluation for adenopathy in the absence of contrast. BOWEL/MESENTERY: No bowel obstruction or dilatation. Moderate stool burden. Diverticulosis of the descending and sigmoid colon. ABDOMINAL WALL: Normal. No mass or hernia. URINARY BLADDER: Urinary bladder is decompressed. Jamison balloon is present in the urinary bladder, not well visualized secondary to artifact from left hip arthroplasty. PELVIC NODES: Normal. No adenopathy. PELVIC ORGANS: Evaluation is limited by left hip arthroplasty streak artifact. BONES: Normal. No bony lesion or fracture. OTHER: Negative. CONCLUSION: 1. Right hydronephrosis despite double-J nephroureteral stent concerning for stent occlusion. There is right perinephric stranding. There are foci of air within the right kidney, findings highly concerning for pyelonephritis. This report was communicated by telephone to Dr. Andry Balbuena at the dictation time shown below. Dictated by: Eliana Valentin MD on 03/05/2024 at 12:09 Approved by: Eliana Valentin MD on 03/05/2024 at 12:38 Normal [facility] CULTURE BLOOD [CINDY]on Microscopic examination of blood, culture CULTURE BLOOD [CINDY] _BLOOD CULTURE_ GO TO CPSI REPORTS AND ATTACHMENTS FOR SCANNED REPORT 03/11/24.1129.DNP.COMP LETE Normal [facility] Comment on above: Performed By: #### 2 82296 #### [facility],[address] [place] [address] 68178 Microscopic examination of blood, culture CULTURE BLOOD [CINDY] _BLOOD CULTURE_ GO TO CPSI REPORTS AND ATTACHMENTS FOR SCANNED REPORT 03/11/24.1130.DNP.COMP LETE Normal [facility] Comment on above: Performed By: #### 2 12535 #### [facility],[address] [place] [address] 84212 LACTATEon 03-04-2024 Lactate [Moles/Vol] 2.8 mmol/L High 0.4 - 2.0 [facility] Comment on above: Result Comment: LACT ATE 3 HR NOTIFIED TO: _ANN_RUT_RN@2344/PHLEB_KYLIE__ 03/04/24.2341.JG . . . LACTATE 3 HR NOTIFIED BY: _JKuldip 03/04/24.2341.JG . . . Performed By: #### 2 51207 #### [facility],[address] [place] [address] 32164 NT-proBNPon 03-04-2024 Natriuretic peptide B (Bld) [Mass/Vol] 1641 pg/mL High 0 - 450 [facility] Comment on above: Performed By: #### 2 78905 #### [facility],[address] [place] [address] 82294 TROPONIN I, HIGH SENSITIVITY on 03-04-2024 HS TROPONIN 7.9 pg/mL Normal 0.0 - 76.2 [facility] Comment on above: Performed By: #### 2 33165 #### [facility],[address] [place] [address] 34294 Bacteria identifiedon 2023 Bacteria identified Cx Nom (U) Test: Urine Culture Specimen Source: Clean Catch/Voided Specimen Type: Urine Specimen Date: 02/17/2024706 Result Date: 02/20/20241448 Result Status: Final result Abnormal: Yes Resulting Lab: [facility] [address] [place] [address] CULTURE >100,000 Escherichia coli (Abnormal) Extended Spectrum Beta Lactamase (ESBL) producing organism SUSCEPTIBILITY Escherichia coli METHOD MICROSCAN ---- AMOXICILLIN/CLAVULANAT E <=8/4 ug/ml Susceptible AMPICILLIN >16.000 ug/ml Resistant AMPICILLIN/SULBACTAM <=4/2 ug/ml Susceptible AZTREONAM 8.000 ug/ml Resistant CEFAZOLIN >16 ug/ml Resistant CEFAZOLIN (UNCOMPLICATED UTIS ONLY) >16 ug/ml Resistant CEFEPIME 4 ug/ml Resistant CEFOTAXIME >16.0 ug/ml Resistant CEFTAZIDIME 4.000 ug/ml Resistant CEFTRIAXONE >2.000 ug/ml Resistant CIPROFLOXACIN >2.000 ug/ml Resistant ERTAPENEM <=0.500 ug/ml Susceptible GENTAMICIN <=2.000 ug/ml Susceptible MEROPENEM <=1.000 ug/ml Susceptible NITROFURANTOIN <=32 ug/ml Susceptible PIPERACILLIN/TAZOBACTA M <=8.000 ug/ml Susceptible TRIMETHOPRIM/SULFAMETH OXAZOLE >2/38 ug/ml Resistant Abnormal [facility] Comment on above: Performed By: #### 5 8077-9 #### KING RAVEN ([id number]) [facility] ([facility]) [address] [place] [address] CBC panel Auto (Bld)on 02-16 Erythrocyte distribution width (RBC) [Ratio] 15.3 % High 11.5-14.5 [facility] Comment on above: Performed By: #### 5 8077-9 #### FERNANDO CARBAJAL ([id number]) [facility] ([facility]) [address] [place] [address] 73500 Hematocrit (Bld) [Volume fraction] 29.6 % Low 41.0-52.0 [facility] Comment on above: Performed By: #### 5 8077-9 #### FERNANDO CARBAJAL ([id number]) [facility] ([facility]) [address] [place] [address] Hemoglobin (Bld) [Mass/Vol] 9.4 g/dL Low 13.5-17.5 [facility] Comment on above: Performed By: #### 5 8077-9 #### FERNANDO CARBAJAL ([id number]) [facility] ([facility]) [address] [place] [address] 47399 MCH (RBC) [Entitic mass] 30.5 pg Normal 26.0-34.0 [facility] Comment on above: Performed By: #### 5 8077-9 #### FERNANDO CARBAJAL ([id number]) [facility] ([facility]) [address] [place] [address] 47214 MCHC (RBC) [Mass/Vol] 31.8 g/dL Low 32.0-36.0 [facility] Comment on above: Performed By: #### 5 8077-9 #### FERNANDO CARBAJAL ([id number]) [facility] ([facility]) [address] [place] [address] 90287 MCV (RBC) [Entitic vol] 96 fL Normal 80-100 [facility] Comment on above: Performed By: #### 5 8077-9 #### FERNANDO CARBAJAL ([id number]) [facility] ([facility]) [address] [place] [address] 94119 Nucleated RBC/100 WBC (Bld) [Ratio] 0.0 /100 WBCs Normal 0.0-0.0 [facility] Comment on above: Performed By: #### 5 8077-9 #### FERNANDO CARBAJAL ([id number]) [facility] ([facility]) [address] [place] [address] Platelets (Bld) [#/Vol] 190 x10*3/uL Normal 150-450 [facility] Comment on above: Performed By: #### 5 8077-9 #### FERNANDO CARBAJAL ([id number]) [facility] ([facility]) [address] [place] [address] RBC (Bld) [#/Vol] 3.08 x10*6/uL Low 4.50-5.90 [facility] Comment on above: Performed By: #### 5 8077-9 #### FERNANDO CARBAJAL ([id number]) [facility] ([facility]) [address] [place] [address] WBC (Bld) [#/Vol] 6.8 x10*3/uL Normal 4.4-11.3 [facility] Comment on above: Performed By: #### 5 8077-9 #### FERNANDO CARBAJAL ([id number]) [facility] ([facility]) [address] [place] [address] Comprehensive metabolic 2000 panelon 02-17-2024 Albumin BCP dye [Mass/Vol] 3.5 g/dL Normal 3.4-5.0 [facility] Comment on above: Performed By: #### 5 8077-9 #### FERNANDO CARBAJAL ([id number]) [facility] ([facility]) [address] [place] [address] ALP [Catalytic activity/Vol] 71 U/L Normal 33-136 [facility] Comment on above: Performed By: #### 5 8077-9 #### FERNANDO CARBAJAL ([id number]) [facility] ([facility]) [address] [place] [address] ALT With P-5'-P [Catalytic activity/Vol] 8 U/L Low 10-52 [facility] Comment on above: Result Comment: Rhea ents treated with Sulfasalazine may generate falsely decreased results for ALT. Performed By: #### 5 8077-9 #### FERNANDO CARBAJAL ([id number]) [facility] ([facility]) [address] [place] [address] Anion gap [Moles/Vol] 15 mmol/L Normal 10-20 [facility] Comment on above: Performed By: #### 5 8077-9 #### FERNANDO CARBAJAL ([id number]) [facility] ([facility]) [address] [place] [address] AST With P-5'-P [Catalytic activity/Vol] 14 U/L Normal 9-39 [facility] Comment on above: Performed By: #### 5 8077-9 #### FERNANDO CARBAJAL ([id number]) [facility] ([facility]) [address] [place] [address] 15937 Bilirubin [Mass/Vol] 0.5 mg/dL Normal 0.0-1.2 [facility] Comment on above: Performed By: #### 5 8077-9 #### FERNANDO CARBAJAL ([id number]) [facility] ([facility]) [address] [place] [address] Calcium [Mass/Vol] 8.4 mg/dL Low 8.6-10.3 [facility] Comment on above: Performed By: #### 5 8077-9 #### FERNANDO CARBAJAL ([id number]) [facility] ([facility]) [address] [place] [address] Chloride [Moles/Vol] 95 mmol/L Low 98-107 [facility] Comment on above: Performed By: #### 5 8077-9 #### FERNANDO CARBAJAL ([id number]) [facility] ([facility]) [address] [place] [address] CO2 [Moles/Vol] 28 mmol/L Normal 21-32 [facility] Comment on above: Performed By: #### 5 8077-9 #### FERNANDO CARBAJAL ([id number]) [facility] ([facility]) [address] [place] [address] Creatinine [Mass/Vol] 7.01 mg/dL High 0.50-1.30 [facility] Comment on above: Performed By: #### 5 8077-9 #### FERNANDO CARBAJAL ([id number]) [facility] ([facility]) [facility] [place] [address] Glomerular filtration rate/1.73 sq M.predicted 7 mL/min/1.73m*2 Low >60 [facility] Comment on above: Result Comment: Calc ulations of estimated GFR are performed using the 2020 CKD-EPI Study Refit equation without the race variable for the IDMS-Traceable creatinine methods. https://jasn.asnjournals.org/content/early/ASN.66268 29320 Performed By: #### 5 8077-9 #### FERNANDO CARBAJAL ([id number]) [facility] ([facility]) [address] [place] [address] 81406 Glucose [Mass/Vol] 87 mg/dL Normal 74-99 [facility] Comment on above: Performed By: #### 5 8077-9 #### FERNANDO CARBAJAL ([id number]) [facility] ([facility]) [address] [place] [address] 23719 Potassium [Moles/Vol] 4.0 mmol/L Normal 3.5-5.3 [facility] Comment on above: Performed By: #### 5 8077-9 #### FERNANDO CARBAJAL ([id number]) [facility] ([facility]) [address] [place] [address] 60544 Protein [Mass/Vol] 5.9 g/dL Low 6.4-8.2 [facility] Comment on above: Performed By: #### 5 8077-9 #### FERNANDO CARBAJAL ([id number]) [facility] ([facility]) [address] [place] [address] 78533 Sodium [Moles/Vol] 134 mmol/L Low 136-145 [facility] Comment on above: Performed By: #### 5 8077-9 #### FERNANDO CARBAJAL ([id number]) [facility] ([facility]) [address] [place] [address] 10324 Urea nitrogen [Mass/Vol] 58 mg/dL High 6-23 [facility] Comment on above: Performed By: #### 5 8077-9 #### FERNANDO CARBAJAL ([id number]) [facility] ([facility]) [address] [place] [address] Urinalysis complete panel (U )on 02-17-2024 Appearance (U) Ex.Turbid Normal Clear [facility] Comment on above: Performed By: #### 5 8077-9 #### FERNANDO CARBAJAL ([id number]) [facility] ([facility]) [address] [place] [address] Bilirubin (U) [Mass/Vol] Negative Normal NEGATIVE [facility] Comment on above: Performed By: #### 5 8077-9 #### FERNANDO CARBAJAL ([id number]) [facility] ([facility]) [address] [place] [address] Color (U) Light-[place] Normal Light-Yellow , Yellow, Dark-Yellow [facility] Comment on above: Performed By: #### 5 8077-9 #### FERNANDO CARBAJAL ([id number]) [facility] ([facility]) [address] [place] [address] Glucose Auto test strip (U) [Mass/Vol] Normal Normal Normal [facility] Comment on above: Performed By: #### 5 8077-9 #### FERNANDO CARBAJAL ([id number]) [facility] ([facility]) [address] [place], [place] [address] Ketones (U) [Mass/Vol] Negative Normal NEGATIVE [facility] Comment on above: Performed By: #### 5 8077-9 #### FERNANDO CARBAJAL ([id number]) [facility] ([facility]) [address] [place], [place] [address] Leukocyte esterase Auto test strip Ql (U) 500 Doris/???L Abnormal NEGATIVE [facility] Comment on above: Performed By: #### 5 8077-9 #### FERNANDO CARBAJAL ([id number]) [facility] ([facility]) [address] [place], [place] [address] Nitrite Auto test strip Ql (U) Negative Normal NEGATIVE [facility] Comment on above: Performed By: #### 5 8077-9 #### FERNANDO CARBAJAL ([id number]) [facility] ([facility]) [address] [place] [address] pH (U) 7.0 [pH] Normal 5.0, 5.5, 6.0, 6.5, 7.0, 7.5, 8.0 [facility] Comment on above: Performed By: #### 5 8077-9 #### FERNANDO CARBAJAL ([id number]) [facility] ([facility]) [address] [place] [address] Protein (U) [Mass/Vol] 100 (2+) Abnormal NEGAT AUDI, 10 (TRACE), 20 (TRACE) [facility] Comment on above: Performed By: #### 5 8077-9 #### FERNANDO CARBAJAL ([id number]) [facility] ([facility]) [address] [place] [address] RBC (U) [#/Vol] 0.5 (2+) Abnormal NEGATIVE [facility] Comment on above: Performed By: #### 5 8077-9 #### FERNANDO CARBAJAL ([id number]) [facility] ([facility]) [address] [place] [address] Specific gravity (U) [Rel density] 1.012 Normal 1.005-1.035 [facility] Comment on above: Performed By: #### 5 8077-9 #### FERNANDO CARBAJAL ([id number]) [facility] ([facility]) [address] [place] [address] Urobilinogen (U) [Mass/Vol] Normal Normal Normal [facility] Comment on above: Performed By: #### 5 8077-9 #### FERNANDO CARBAJAL ([id number]) [facility] ([facility]) [address] [place] [address] Urinalysis microscopic panel Auto Ql (U)on 02-17-2024 Leukocyte clumps Auto (Urine sed) [#/Area] MANY Normal Reference range not established. [facility] Comment on above: Performed By: #### 5 8077-9 #### FERNANDO CARBAJAL ([id number]) [facility] ([facility]) [address] [place] [address] RBC Auto (Urine sed) [#/Area] >20 Abnormal NONE, 1-2, 3-5 [facility] Comment on above: Performed By: #### 5 8077-9 #### FERNANDO CARBAJAL ([id number]) [facility] ([facility]) [address] [place] [address] WBC Auto (Urine sed) [#/Area] >50 Abnormal 1-5, NONE [facility] Comment on above: Performed By: #### 5 8077-9 #### FERNANDO CARBAJAL ([id number]) [facility] ([facility]) [address] [place] [address] CT Abdomen WO contraston 1. Diverticulosis. N o diverticulitis. No bowel obstruction. No radiopaque gallstones or biliary duct dilatation. Stomach is decompressed. 2. Robust vascular calcification. 3. Right ureteral stent and left percutaneous nephrostomy in expected position. Marked cortical thinning and atrophy of the left kidney compatible with advanced chronic renal insufficiency. Right kidney has cortical thinning although not as severe. MACRO: None Signed by: John Joya 02/10/2024 1:07 AM Dictation workstation: [id number] [facility]AL Interpreted By: John Joya, STUDY: CT ABDOMEN PELVIS WO IV CONTRAST; 02/10/2024 12:18 am INDICATION: Signs/Symptoms:epigast luis felipe pain. COMPARISON: None ACCESSION NUMBER(S): [id number] ORDERING CLINICIAN: GIL BOTELLO TECHNIQUE: CT of the abdomen and pelvis was performed. Contiguous axial images were obtained at 3 mm slice thickness through the abdomen and pelvis. Coronal and sagittal reconstructions at 3 mm slice thickness were performed. No intravenous contrast was administered; positive oral contrast was given. FINDINGS: Please note that the evaluation of vessels, lymph nodes and organs is limited without intravenous contrast. Heart size is enlarged. Patchy bibasilar atelectasis. Right ureteral stent in expected position. Cortical thinning seen on the right. No measurable hydronephrosis. There is a left percutaneous nephrostomy tube with cortical thinning on the left compatible with chronic renal disease. There are couple of calcification seen in the left kidney. There are couple of small bilateral renal cysts. No radiopaque gallstones or biliary duct dilatation. Robust vascular calcification. No aneurysm. No fluid collections. Diverticulosis. No diverticulitis. Stomach is decompressed. No free air. No free fluid. Left hip arthroplasty obscures evaluation of the pelvis. Jamison catheter decompresses the urinary bladder. Mild multilevel degenerative disc disease. [facility] John Joya MD - 02/10/2024 Interpreted By: John Joya, STUDY: CT ABDOMEN PELVIS WO IV CONTRAST; 02/10/2024 12:18 am INDICATION: Signs/Symptoms:epigast luis felipe pain. COMPARISON: None ACCESSION NUMBER(S): [id number] ORDERING CLINICIAN: GIL BOTELLO TECHNIQUE: CT of the abdomen and pelvis was performed. Contiguous axial images were obtained at 3 mm slice thickness through the abdomen and pelvis. Coronal and sagittal reconstructions at 3 mm slice thickness were performed. No intravenous contrast was administered; positive oral contrast was given. FINDINGS: Please note that the evaluation of vessels, lymph nodes and organs is limited without intravenous contrast. Heart size is enlarged. Patchy bibasilar atelectasis. Right ureteral stent in expected position. Cortical thinning seen on the right. No measurable hydronephrosis. There is a left percutaneous nephrostomy tube with cortical thinning on the left compatible with chronic renal disease. There are couple of calcification seen in the left kidney. There are couple of small bilateral renal cysts. No radiopaque gallstones or biliary duct dilatation. Robust vascular calcification. No aneurysm. No fluid collections. Diverticulosis. No diverticulitis. Stomach is decompressed. No free air. No free fluid. Left hip arthroplasty obscures evaluation of the pelvis. Jamison catheter decompresses the urinary bladder. Mild multilevel degenerative disc disease. IMPRESSION: 1. Diverticulosis. No diverticulitis. No bowel obstruction. No radiopaque gallstones or biliary duct dilatation. Stomach is decompressed. 2. Robust vascular calcification. 3. Right ureteral stent and left percutaneous nephrostomy in expected position. Marked cortical thinning and atrophy of the left kidney compatible with advanced chronic renal insufficiency. Right kidney has cortical thinning although not as severe. MACRO: None Signed by: John Joya 02/10/2024 1:07 AM Dictation workstation: [id number] [facility] Work Phone: CT Abdomen WO contrastOrdere d By: John Joya on 02-10-2024 [facility] Work Phone: CT Chest WO contraston 02-09 1. Features suggesti ng mild edema. Heart size is enlarged. Patchy bibasilar atelectasis. Signed by: John Joya 02/10/2024 12:53 AM Dictation workstation: [id number] MMODAL Interpreted By: John Joya, STUDY: CT CHEST WO IV CONTRAST; 02/10/2024 12:18 am INDICATION: Signs/Symptoms:epigast luis felipe pain. COMPARISON: None ACCESSION NUMBER(S): [id number] ORDERING CLINICIAN: GIL BOTELLO TECHNIQUE: Helical data acquisition of the chest was obtained without intravenous contrast. Images were reformatted in axial, coronal, and sagittal planes. FINDINGS: Vascular catheter in expected position. The heart size is enlarged. Equivocal mild edema gynecomastia. There are vascular calcifications; moderate in the coronary arteries. Patchy bibasilar atelectasis. No pneumothorax or pleural effusion. No adenopathy. Enlarged main pulmonary artery suggestive of pulmonary arterial hypertension. No acute osseous abnormality MMODAL John Joya MD - 02/10/2024 Interpreted By: John Joya, STUDY: CT CHEST WO IV CONTRAST; 02/10/2024 12:18 am INDICATION: Signs/Symptoms:epigast luis felipe pain. COMPARISON: None ACCESSION NUMBER(S): [id number] ORDERING CLINICIAN: GIL BOTELLO TECHNIQUE: Helical data acquisition of the chest was obtained without intravenous contrast. Images were reformatted in axial, coronal, and sagittal planes. FINDINGS: Vascular catheter in expected position. The heart size is enlarged. Equivocal mild edema gynecomastia. There are vascular calcifications; moderate in the coronary arteries. Patchy bibasilar atelectasis. No pneumothorax or pleural effusion. No adenopathy. Enlarged main pulmonary artery suggestive of pulmonary arterial hypertension. No acute osseous abnormality IMPRESSION: 1. Features suggesting mild edema. Heart size is enlarged. Patchy bibasilar atelectasis. Signed by: John Joya 02/10/2024 12:53 AM Dictation workstation: [id number] [facility] Work Phone: [facility] Work Phone: No Panel Informationon 02-09 Radiology Study observation (narrative) [facility] Work Phone: CBC W Auto Differential pane l (Bld)on 02-09-2024 Basophils (Bld) [#/Vol] 0.04 10*3/uL [facility] Basophils/100 WBC (Bld) 0.4 % 0.0 - 2.0 % [facility] Eosinophils (Bld) [#/Vol] 0.33 10*3/uL [facility] Eosinophils/100 WBC (Bld) 3.5 % 0.0 - 6.0 % [facility] Erythrocyte distribution width (RBC) [Ratio] 14.7 % High 11.5 - 14.5 % [facility] Hematocrit (Bld) [Volume fraction] 30.2 % Low 41.0 - 52.0 % [facility] Hemoglobin (Bld) [Mass/Vol] 9.6 g/dL Low 13.5 - 17.5 g/dL [facility] Immature granulocytes (Bld) [#/Vol] 0.04 10*3/uL [facility] Immature granulocytes/100 WBC (Bld) 0.4 % 0.0 - 0.9 % [facility] Comment on above: Immature Granulocyte Count (IG) includes promyelocytes, myelocytes and metamyelocytes but does not include bands. Percent differential counts (%) should be interpreted in the context of the absolute cell counts (cells/UL). Interpretation and review of laboratory results Abnormal [facility] Lymphocytes (Bld) [#/Vol] 1.71 10*3/uL [facility] Lymphocytes/100 WBC (Bld) 18.2 % 13.0 - 44.0 % [facility] MCH (RBC) [Entitic mass] 31.2 pg 26.0 - 34.0 pg [facility] MCHC (RBC) [Mass/Vol] 31.8 g/dL Low 32.0 - 36.0 g/dL [facility] MCV (RBC) [Entitic vol] 98 fL 80 - 100 fL [facility] Monocytes (Bld) [#/Vol] 0.72 10*3/uL [facility] Monocytes/100 WBC (Bld) 7.7 % 2.0 - 10.0 % [facility] Neutrophils (Bld) [#/Vol] 6.53 10*3/uL High [facility] Comment on above: Percent differential counts (%) should be interpreted in the context of the absolute cell counts (cells/uL). Neutrophils/100 WBC (Bld) 69.8 % 40.0 - 80.0 % [facility] Nucleated RBC/100 WBC (Bld) [Ratio] 0.0 % [facility] Platelets (Bld) [#/Vol] 201 10*3/uL [facility] RBC (Bld) [#/Vol] 3.08 10*6/uL Low [facility] WBC (Bld) [#/Vol] 9.4 10*3/uL [facility] Basophils (Bld) [#/Vol] 0.04 x10*3/uL Normal 0.00-0.10 [facility] Comment on above: Performed By: #### 5 7021-8 #### FERNANDO CARBAJAL ([id number]) [facility] ([facility]) [address] [place] [address] Basophils/100 WBC (Bld) 0.4 % Normal 0.0-2.0 [facility] Comment on above: Performed By: #### 5 7021-8 #### FERNANDO CARBAJAL ([id number]) [facility] ([facility]) [address] [place] [address]2892 Eosinophils (Bld) [#/Vol] 0.33 x10*3/uL Normal 0.00-0.40 [facility] Comment on above: Performed By: #### 5 7021-8 #### FERNANDO CARBAJAL ([id number]) [facility] ([facility]) [facility] [place] [address] Eosinophils/100 WBC (Bld) 3.5 % Normal 0.0-6.0 [facility] Comment on above: Performed By: #### 5 7021-8 #### FERNANDO CARBAJAL ([id number]) [facility] ([facility]) [address] [place] [address] Erythrocyte distribution width (RBC) [Ratio] 14.7 % High 11.5-14.5 [facility] Comment on above: Performed By: #### 5 7021-8 #### FERNANDO CARBAJAL ([id number]) [facility] ([facility]) [address] [place] [address] Hematocrit (Bld) [Volume fraction] 30.2 % Low 41.0-52.0 [facility] Comment on above: Performed By: #### 5 7021-8 #### FERNANDO CARBAJAL ([id number]) [facility] ([facility]) [address] [place] [address] Hemoglobin (Bld) [Mass/Vol] 9.6 g/dL Low 13.5-17.5 [facility] Comment on above: Performed By: #### 5 7021-8 #### FERNANDO CARBAJAL ([id number]) [facility] ([facility]) [address] [place] [address] Immature granulocytes (Bld) [#/Vol] 0.04 x10*3/uL Normal 0.00-0.50 [facility] Comment on above: Performed By: #### 5 7021-8 #### FERNANDO CARBAJAL ([id number]) [facility] ([facility]) [address] [place] [address] Immature granulocytes/100 WBC (Bld) 0.4 % Normal 0.0-0.9 [facility] Comment on above: Result Comment: [place] t[place] Granulocyte Count (IG) includes promyelocytes, myelocytes and metamyelocytes but does not include bands. Percent differential counts (%) should be interpreted in the context of the absolute cell counts (cells/UL). Performed By: #### 5 7021-8 #### FERNANDO CARBAJAL ([id number]) [facility] ([facility]) [address] [place] [address] Lymphocytes (Bld) [#/Vol] 1.71 x10*3/uL Normal 0.80-3.00 [facility] Comment on above: Performed By: #### 5 7021-8 #### FERNANDO CARBAJAL ([id number]) [facility] ([facility]) [address] [place] [address] 91775 Lymphocytes/100 WBC (Bld) 18.2 % Normal 13.0-44.0 [facility] Comment on above: Performed By: #### 5 7021-8 #### FERNANDO CARBAJAL ([id number]) [facility] ([facility]) [address] [place] [address] 50574 MCH (RBC) [Entitic mass] 31.2 pg Normal 26.0-34.0 [facility] Comment on above: Performed By: #### 5 7021-8 #### FERNANDO CARBAJAL ([id number]) [facility] ([facility]) [address] [place] [address] 73061 MCHC (RBC) [Mass/Vol] 31.8 g/dL Low 32.0-36.0 [facility] Comment on above: Performed By: #### 5 7021-8 #### FERNANDO CARBAJAL ([id number]) [facility] ([facility]) [address] [place] [address] 32360 MCV (RBC) [Entitic vol] 98 fL Normal 80-100 [facility] Comment on above: Performed By: #### 5 7021-8 #### FERNANDO CARBAJAL ([id number]) [facility] ([facility]) [address] [place] [address] 36810 Monocytes (Bld) [#/Vol] 0.72 x10*3/uL Normal 0.05-0.80 [facility] Comment on above: Performed By: #### 5 7021-8 #### FERNANDO CARBAJAL ([id number]) [facility] ([facility]) [address] [place] [address] 63387 Monocytes/100 WBC (Bld) 7.7 % Normal 2.0-10.0 [facility] Comment on above: Performed By: #### 5 7021-8 #### FERNANDO CARBAJAL ([id number]) [facility] ([facility]) [address] [place] [address] 46769 Neutrophils (Bld) [#/Vol] 6.53 x10*3/uL High 1.60-5.50 [facility] Comment on above: Result Comment: Perc ent differential counts (%) should be interpreted in the context of the absolute cell counts (cells/uL). Performed By: #### 5 7021-8 #### FERNANDO CARBAJAL ([id number]) [facility] ([facility]) [address] [place] [address] 29316 Neutrophils/100 WBC (Bld) 69.8 % Normal 40.0-80.0 [facility] Comment on above: Performed By: #### 5 7021-8 #### FERNANDO CARBAJAL ([id number]) [facility] ([facility]) [address] [place] [address] 34363 Nucleated RBC/100 WBC (Bld) [Ratio] 0.0 /100 WBCs Normal 0.0-0.0 [facility] Comment on above: Performed By: #### 5 7021-8 #### FERNANDO CARBAJAL ([id number]) [facility] ([facility]) [address] [place] [address] 29559 Platelets (Bld) [#/Vol] 201 x10*3/uL Normal 150-450 [facility] Comment on above: Performed By: #### 5 7021-8 #### FERNANDO CARBAJAL ([id number]) [facility] ([facility]) [address] [place] [address] 93611 RBC (Bld) [#/Vol] 3.08 x10*6/uL Low 4.50-5.90 [facility] Comment on above: Performed By: #### 5 7021-8 #### FERNANDO CARBAJAL ([id number]) [facility] ([facility]) [address] [place] [address] 67975 WBC (Bld) [#/Vol] 9.4 x10*3/uL Normal 4.4-11.3 [facility] Comment on above: Performed By: #### 5 7021-8 #### KING RAVEN ([id number]) [facility] ([facility]) [address] [place], [place] [id number] CT ABDOMEN PELVIS WO IV CONT RASAkhil 02-09-2024 CT ABDOMEN PELVIS WO IV CONTRAST Interpreted By: John Joya, STUDY: CT ABDOMEN PELVIS WO IV CONTRAST; 02/10/2024 12:18 am INDICATION: Signs/Symptoms:epigast luis felipe pain. COMPARISON: None ACCESSION NUMBER(S): [id number] ORDERING CLINICIAN: GIL BOTELLO TECHNIQUE: CT of the abdomen and pelvis was performed. Contiguous axial images were obtained at 3 mm slice thickness through the abdomen and pelvis. Coronal and sagittal reconstructions at 3 mm slice thickness were performed. No intravenous contrast was administered; positive oral contrast was given. FINDINGS: Please note that the evaluation of vessels, lymph nodes and organs is limited without intravenous contrast. Heart size is enlarged. Patchy bibasilar atelectasis. Right ureteral stent in expected position. Cortical thinning seen on the right. No measurable hydronephrosis. There is a left percutaneous nephrostomy tube with cortical thinning on the left compatible with chronic renal disease. There are couple of calcification seen in the left kidney. There are couple of small bilateral renal cysts. No radiopaque gallstones or biliary duct dilatation. Robust vascular calcification. No aneurysm. No fluid collections. Diverticulosis. No diverticulitis. Stomach is decompressed. No free air. No free fluid. Left hip arthroplasty obscures evaluation of the pelvis. Jamison catheter decompresses the urinary bladder. Mild multilevel degenerative disc disease. IMPRESSION: 1. Diverticulosis. No diverticulitis. No bowel obstruction. No radiopaque gallstones or biliary duct dilatation. Stomach is decompressed. 2. Robust vascular calcification. 3. Right ureteral stent and left percutaneous nephrostomy in expected position. Marked cortical thinning and atrophy of the left kidney compatible with advanced chronic renal insufficiency. Right kidney has cortical thinning although not as severe. MACRO: None Signed by: John Joya 02/10/2024 1:07 AM Dictation workstation: [id number] [facility] CT CHEST WO IV CONTRASTon CT CHEST WO IV CONTRAST Interpreted By: John Joya, STUDY: CT CHEST WO IV CONTRAST; 02/10/2024 12:18 am INDICATION: Signs/Symptoms:epigast luis felipe pain. COMPARISON: None ACCESSION NUMBER(S): [id number] ORDERING CLINICIAN: GIL BOTELLO TECHNIQUE: Helical data acquisition of the chest was obtained without intravenous contrast. Images were reformatted in axial, coronal, and sagittal planes. FINDINGS: Vascular catheter in expected position. The heart size is enlarged. Equivocal mild edema gynecomastia. There are vascular calcifications; moderate in the coronary arteries. Patchy bibasilar atelectasis. No pneumothorax or pleural effusion. No adenopathy. Enlarged main pulmonary artery suggestive of pulmonary arterial hypertension. No acute osseous abnormality IMPRESSION: 1. Features suggesting mild edema. Heart size is enlarged. Patchy bibasilar atelectasis. Signed by: John Joya 02/10/2024 12:53 AM Dictation workstation: [id number] [facility] Comprehensive metabolic 2000 panelon 02-09-2024 Albumin BCP dye [Mass/Vol] 3.6 g/dL 3.4 - 5.0 g/dL [facility] ALP [Catalytic activity/Vol] 72 U/L 33 - 136 U/L [facility] ALT With P-5'-P [Catalytic activity/Vol] 7 U/L Low 10 - 52 U/L [facility] Comment on above: Patients treated wit h Sulfasalazine may generate falsely decreased results for ALT. Anion gap [Moles/Vol] 16 mmol/L 10 - 2 0 mmol/L [facility] AST With P-5'-P [Catalytic activity/Vol] 11 U/L 9 - 39 U/L [facility] Bilirubin [Mass/Vol] 0.3 mg/dL 0.0 - 1 .2 mg/dL [facility] Calcium [Mass/Vol] 9.0 mg/dL 8.6 - 10. 3 mg/dL [facility] Chloride [Moles/Vol] 100 mmol/L 98 - 10 7 mmol/L [facility] CO2 [Moles/Vol] 28 mmol/L 21 - 32 mmol/L [facility] Creatinine [Mass/Vol] 6.24 mg/dL High 0.50 - 1.30 mg/dL [facility] GFR/1.73 sq M.predicted among non-blacks MDRD (S/P/Bld) [Vol rate/Area] 9 mL/min/{1.73_m2} Low - PINF [facility] Comment on above: Calculations of alejandra mated GFR are performed using the 2020 CKD-EPI Study Refit equation without the race variable for the IDMS-Traceable creatinine methods. https://jasn.asnjournals.org/content//ASN.91300 70878 Glucose [Mass/Vol] 104 mg/dL High 74 - 99 mg/dL [facility] Interpretation and review of laboratory results Abnormal [facility] Potassium [Moles/Vol] 4.1 mmol/L 3.5 - 5.3 mmol/L [facility] Protein [Mass/Vol] 6.4 g/dL 6.4 - 8.2 g/dL [facility] Sodium [Moles/Vol] 140 mmol/L 136 - 145 mmol/L [facility] Urea nitrogen [Mass/Vol] 65 mg/dL High 6 - 23 mg/dL [facility] Albumin BCP dye [Mass/Vol] 3.6 g/dL Normal 3.4-5.0 [facility] Comment on above: Performed By: #### 5 7021-8 #### FERNANDO CARBAJAL ([id number]) [facility] ([facility]) [address] [place] [address] ALP [Catalytic activity/Vol] 72 U/L Normal 33-136 [facility] Comment on above: Performed By: #### 5 7021-8 #### FERNANDO CARBAJAL ([id number]) [facility] ([facility]) [address] [place] [address] 88801 ALT With P-5'-P [Catalytic activity/Vol] 7 U/L Low 10-52 [facility] Comment on above: Result Comment: Rhea ents treated with Sulfasalazine may generate falsely decreased results for ALT. Performed By: #### 5 7021-8 #### FERNANDO CARBAJAL ([id number]) [facility] ([facility]) [address] [place], [place] [address] Anion gap [Moles/Vol] 16 mmol/L Normal 10-20 [facility] Comment on above: Performed By: #### 5 7021-8 #### FERNANDO CARBAJAL ([id number]) [facility] ([facility]) [address] [place] [address] 15981 AST With P-5'-P [Catalytic activity/Vol] 11 U/L Normal 9-39 [facility] Comment on above: Performed By: #### 7021-8 #### FERNANDO CARBAJAL ([id number]) [facility] ([facility]) [address] [place] [address] 41746 Bilirubin [Mass/Vol] 0.3 mg/dL Normal 0.0-1.2 [facility] Comment on above: Performed By: #### 7021-8 #### FERNANDO CARBAJAL ([id number]) [facility] ([facility]) [address] [place] [address] 52509 Calcium [Mass/Vol] 9.0 mg/dL Normal 8.6-10.3 [facility] Comment on above: Performed By: #### 7021-8 #### FERNANDO CARBAJAL ([id number]) [facility] ([facility]) [address] [place] [address] 88090 Chloride [Moles/Vol] 100 mmol/L Normal 98-107 [facility] Comment on above: Performed By: #### 5 7021-8 #### FERNANDO CARBAJAL ([id number]) [facility] ([facility]) [address] [place] [address] 29174 CO2 [Moles/Vol] 28 mmol/L Normal 21-32 [facility] Comment on above: Performed By: #### 7021-8 #### FERNANDO CARBAJAL ([id number]) [facility] ([facility]) [address] [place] [address] 03034 Creatinine [Mass/Vol] 6.24 mg/dL High 0.50-1.30 [facility] Comment on above: Performed By: #### 7021-8 #### FERNANDO CARBAJAL ([id number]) [facility] ([facility]) [facility] [place] [address] Glomerular filtration rate/1.73 sq M.predicted 9 mL/min/1.73m*2 Low >60 [facility] Comment on above: Result Comment: Calc ulations of estimated GFR are performed using the 2020 CKD-EPI Study Refit equation without the race variable for the IDMS-Traceable creatinine methods. https://jasn.asnjournals.org/content/early//ASN.85917 28130 Performed By: #### 5 7021-8 #### FERNANDO CARBAJAL ([id number]) [facility] ([facility]) [address] [place] [address] 57059 Glucose [Mass/Vol] 104 mg/dL High 74-99 [facility] Comment on above: Performed By: #### 5 7021-8 #### FERNANDO CARBAJAL ([id number]) [facility] ([facility]) [address] [place] [address] 00694 Potassium [Moles/Vol] 4.1 mmol/L Normal 3.5-5.3 [facility] Comment on above: Performed By: #### 5 7021-8 #### FERNANOD CARBAJAL ([id number]) [facility] ([facility]) [address] [place] [address] 34851 Protein [Mass/Vol] 6.4 g/dL Normal 6.4-8.2 [facility] Comment on above: Performed By: #### 5 7021-8 #### FERNANDO CARBAJAL ([id number]) [facility] ([facility]) [address] [place] [address] 18462 Sodium [Moles/Vol] 140 mmol/L Normal 136-145 [facility] Comment on above: Performed By: #### 5 7021-8 #### FERNANDO CARBAJAL ([id number]) [facility] ([facility]) [address] [place] [address] 65885 Urea nitrogen [Mass/Vol] 65 mg/dL High 6-23 [facility] Comment on above: Performed By: #### 5 7021-8 #### KING RAVEN ([id number]) [facility] ([facility]) [address] [place] [address] ECG 12-LEADon 02-09-2024 ECG 12-LEAD Ventricular Rate 106 Atrial Rate 80 P-R Interval 206 QRS Duration 98 Q-T Interval 396 QTC Calculation(Bazett) 526 P Rosedale 47 R Rosedale 104 T Rosedale 67 QRS Count 17 Q Onset 222 P Onset 119 P Offset 175 T Offset 420 QTC Fredericia 478 Diagnosis Sinus rhythm with Premature atrial complexes and Premature ventricular complexes or Fusion complexes Rightward axis Low voltage QRS Nonspecific T wave abnormality Abnormal ECG When compared with ECG of 30-MAY-2023 15:32, Significant changes have occurred See ED provider note for full interpretation and clinical correlation Confirmed by Shey Alejo ([id number]) on 02/15/2024 11:51:58 AM Normal [facility] Lipaseon 02-09-2024 Lipase [Catalytic activity/Vol] 58 U/L - 82 U/L [facility] Lipase [Catalytic activity/V ol]on 02-09-2024 Interpretation and review of laboratory results Normal [facility] Venipuncture immediately after or during the administration of Metamizole may lead to falsely low results. Testing should be performed immediately prior to Metamizole dosing. [facility] Triacylglycerol lipaseon Lipase [Catalytic activity/Vol] 58 U/L Normal [facility] Comment on above: Order Comment: Venip uncture immediately after or during the administration of Metamizole may lead to falsely low results. Testing should be performed immediately prior to Metamizole dosing. Performed By: #### 5 7021-8 #### KING RAVEN ([id number]) [facility] ([facility]) [facility] [place] [address] Tropinin I.cardiac panel Hig h sensitivity methodon 02-09-2024 Interpretation and review of laboratory results Normal [facility] Less than 99th percentile of normal range cutoff- Female and children under 18 years old <14 ng/L; Male <21 ng/L: Negative Repeat testing should be performed if clinically indicated. Female and children under 18 years old 14-50 ng/L; Male 21-50 ng/L: Consistent with possible cardiac damage and possible increased clinical risk. Serial measurements may help to assess extent of myocardial damage. >50 ng/L: Consistent with cardiac damage, increased clinical risk and myocardial infarction. Serial measurements may help assess extent of myocardial damage. NOTE: Children less than 1 year old may have higher baseline troponin levels and results should be interpreted in conjunction with the overall clinical context. NOTE: Troponin I testing is performed using a different testing methodology at [facility] than at [facility]. Direct result comparisons should only be made within the same method. [facility] Troponin I, High Sensitivity on 02-09-2024 Tropinin I.cardiac panel High sensitivity method 10 ng/L 0 - 20 ng/L [facility] Troponin I.cardiac panelon 0 02-09-2024 Tropinin I.cardiac panel High sensitivity method 10 ng/L Normal 0-20 [facility] Comment on above: Order Comment: Less than 99th percentile of normal range cutoff-Female and children under 18 years old <14 ng/L; Male <21 ng/L: NegativeRepeat testing should be performed if clinically indicated.Female and children under 18 years old 14-50 ng/L; Male 21-50 ng/L:Consistent with possible cardiac damage and possible increased clinicalrisk. Serial measurements may help to assess extent of myocardial damage.>50 ng/L: Consistent with cardiac damage, increased clinical risk andmyocardial infarction. Serial measurements may help assess extent ofmyocardial damage.NOTE: Children less than 1 year old may have higher baseline troponinlevels and results should be interpreted in conjunction with the overallclinical context.NOTE: Troponin I testing is performed using a differenttesting methodology at [facility] than at [facility]. Direct result comparisons should onlybe made within the same method. Performed By: #### 5 8077-9 #### FERNANDO CARBAJAL ([id number]) [facility] ([facility]) [address] [place] [address] CBC panel Auto (Bld)on 02-05 Erythrocyte distribution width (RBC) [Ratio] 14.8 % High 11.5-14.5 [facility] Comment on above: Performed By: #### 5 7021-8 #### FERNANDO CARBAJAL ([id number]) [facility] ([facility]) [address] [place] [address] 64108 Hematocrit (Bld) [Volume fraction] 30.3 % Low 41.0-52.0 [facility] Comment on above: Performed By: #### 5 7021-8 #### FERNANDO CARBAJAL ([id number]) [facility] ([facility]) [address] [place] [address] 88328 Hemoglobin (Bld) [Mass/Vol] 9.5 g/dL Low 13.5-17.5 [facility] Comment on above: Performed By: #### 5 7021-8 #### FERNANDO CARBAJAL ([id number]) [facility] ([facility]) [address] [place] [address] 67869 MCH (RBC) [Entitic mass] 30.4 pg Normal 26.0-34.0 [facility] Comment on above: Performed By: #### 7021-8 #### FERNANDO CARBAJAL ([id number]) [facility] ([facility]) [address] [place] [address] 75869 MCHC (RBC) [Mass/Vol] 31.4 g/dL Low 32.0-36.0 [facility] Comment on above: Performed By: #### 5 7021-8 #### FERNANDO CARBAJAL ([id number]) [facility] ([facility]) [address] [place] [address] 98772 MCV (RBC) [Entitic vol] 97 fL Normal 80-100 [facility] Comment on above: Performed By: #### 5 7021-8 #### FERNANDO CARBAJAL ([id number]) [facility] ([facility]) [address] [place] [address] 84809 Nucleated RBC/100 WBC (Bld) [Ratio] 0.0 /100 WBCs Normal 0.0-0.0 [facility] Comment on above: Performed By: #### 5 7021-8 #### FERNANDO CARBAJAL ([id number]) [facility] ([facility]) [address] [place] [address] 10393 Platelets (Bld) [#/Vol] 195 x10*3/uL Normal 150-450 [facility] Comment on above: Performed By: #### 5 7021-8 #### FERNANDO CARBAJAL ([id number]) [facility] ([facility]) [address] [place] [address] RBC (Bld) [#/Vol] 3.12 x10*6/uL Low 4.50-5.90 [facility] Comment on above: Performed By: #### 5 7021-8 #### FERNANDO CARBAJAL ([id number]) [facility] ([facility]) [address] [place], [place] [phone] WBC (Bld) [#/Vol] 8.7 x10*3/uL Normal 4.4-11.3 [facility] Comment on above: Performed By: #### 5 7021-8 #### FERNANDO CARBAJAL ([id number]) [facility] ([facility]) [address] [place], [place] [phone] Coagulation tissue factor in ducedon 02-06-2024 PT Coag (PPP) [Time] 11.6 s Normal 9.8-12.8 [facility] Comment on above: Performed By: #### 5 7021-8 #### FERNANDO CARBAJAL ([id number]) [facility] ([facility]) [address] [place] [address] PT Coag (PPP) [Time]on 02-05 INR Coag (PPP) [Relative time] 1.0 Normal 0.9-1.1 [facility] Comment on above: Performed By: #### 5 7021-8 #### FERNANDO CARBAJAL ([id number]) [facility] ([facility]) [address] [place], [place] [phone] Bacteria identifiedon 2023 Bacteria identified Cx Nom (U) Test: Urine Culture Specimen Source: Clean Catch/Voided Specimen Type: Urine Specimen Date: 12/22/2023 1600 Result Date: 12/27/2023716 Result Status: Final result Abnormal: Yes Resulting Lab: [facility] [id number] [place] [address] [id number] CULTURE >100,000 Stenotrophomonas maltophilia group (Abnormal) 20,000 - 80,000 Methicillin Resistant Staphylococcus aureus (MRSA) (Abnormal) Methicillin (Oxacillin) resistant Staphylococci are resistant to all currently available Penicillins, Beta-lactam/Beta-lacta penny inhibitor combinations (including Ampicillin/Sulbactam, Amoxicillin/Clavulanat e and Pipercillin/Tazobactam ), Carbapenems and Cephalosporins (except Ceftaroline). SUSCEPTIBILITY Stenotrophomonas maltophilia group METHOD DISK DIFFUSION ------- ------- LEVOFLOXACIN 34.000 mm Susceptible MINOCYCLINE NITROFURANTOIN OXACILLIN TRIMETHOPRIM/SULFAMETH OXAZOLE 28 mm Susceptible VANCOMYCIN Stenotrophomonas maltophilia group METHOD GRADIENT DIFFUSION ------- ------- LEVOFLOXACIN MINOCYCLINE 0.250 mcg/mL Susceptible NITROFURANTOIN OXACILLIN TRIMETHOPRIM/SULFAMETH OXAZOLE VANCOMYCIN Methicillin Resistant Staphylococcus aureus (MRSA) METHOD MICROSCAN ------- ------- LEVOFLOXACIN MINOCYCLINE NITROFURANTOIN <=32 mcg/mL Susceptible OXACILLIN >2 mcg/mL Resistant TRIMETHOPRIM/SULFAMETH OXAZOLE <=0.5/9.5 mcg/mL Susceptible VANCOMYCIN 1.000 mcg/mL Susceptible Abnormal [facility] Comment on above: Performed By: #### 5 7021-8 #### KING RAVEN ([id number]) [facility] ([facility]) [address] [place] [address] Urinalysis complete panel (U )on 12-22-2023 Appearance (U) Ex.Turbid Normal Clear [facility] Comment on above: Performed By: #### 5 7021-8 #### FERNANDO CARBAJAL ([id number]) [facility] ([facility]) [address] [place] [address] Bilirubin (U) [Mass/Vol] Negative Normal NEGATIVE [facility] Comment on above: Performed By: #### 5 70-8 #### FERNANDO CARBAJAL ([id number]) [facility] ([facility]) [address] [place] [address] Color (U) Dark-Brown Normal Light-Yellow , Yellow, Dark-Yellow [facility] Comment on above: Performed By: #### 5 7021-8 #### FERNANDO CARBAJAL ([id number]) [facility] ([facility]) [address] [place], [place] [phone] Glucose Auto test strip (U) [Mass/Vol] Normal Normal Normal [facility] Comment on above: Performed By: #### 5 7021-8 #### FERNANDO CARBAJAL ([id number]) [facility] ([facility]) [address] [place], [place] [phone] Ketones (U) [Mass/Vol] Negative Normal NEGATIVE [facility] Comment on above: Performed By: #### 5 7021-8 #### FERNANDO CARBAJAL ([id number]) [facility] ([facility]) [address] [place] [address] 57589 Leukocyte esterase Auto test strip Ql (U) 250 Doris/???L Abnormal NEGATIVE [facility] Comment on above: Performed By: #### 5 7021-8 #### FERNANDO CARBAJAL ([id number]) [facility] ([facility]) [address] [place] [address] 87495 Nitrite Auto test strip Ql (U) Negative Normal NEGATIVE [facility] Comment on above: Performed By: #### 5 7021-8 #### FERNANDO CARBAJAL ([id number]) [facility] ([facility]) [address] [place] [address] pH (U) 8.5 [pH] Normal 5.0, 5.5, 6.0, 6.5, 7.0, 7.5, 8.0 [facility] Comment on above: Performed By: #### 5 7021-8 #### FERNANDO CARBAJAL ([id number]) [facility] ([facility]) [address] [place] [address] Protein (U) [Mass/Vol] 300 (3+) Abnormal NEGAT AUDI, 10 (TRACE), 20 (TRACE) [facility] Comment on above: Performed By: #### 5 7021-8 #### FERNANDO CARBAJAL ([id number]) [facility] ([facility]) [address] [place] [address] RBC (U) [#/Vol] OVER (3+) Abnormal NEGATIVE [facility] Comment on above: Performed By: #### 5 7021-8 #### FERNANDO CARBAJAL ([id number]) [facility] ([facility]) [address] [place] [address] Specific gravity (U) [Rel density] 1.034 Normal 1.005-1.035 [facility] Comment on above: Performed By: #### 5 7021-8 #### FERNANDO CARBAJAL ([id number]) [facility] ([facility]) [address] [place] [address] Urobilinogen (U) [Mass/Vol] Normal Normal Normal [facility] Comment on above: Performed By: #### 5 7021-8 #### FERNANDO CARBAJAL ([id number]) [facility] ([facility]) [address] [place] [address] Urinalysis microscopic panel Auto Ql (U)on 12-22-2023 Bacteria Auto (Urine sed) [#/Area] 1+ /HPF Abnormal NONE SEEN [facility] Comment on above: Performed By: #### 5 7021-8 #### FERNANDO CARBAJAL ([id number]) [facility] ([facility]) [address] [place] [address] RBC Auto (Urine sed) [#/Area] >20 Abnormal NONE, 1-2, 3-5 [facility] Comment on above: Performed By: #### 5 7021-8 #### FERNANDO CARBAJAL ([id number]) [facility] ([facility]) [facility] [place] [phone] WBC Auto (Urine sed) [#/Area] >50 Abnormal 1-5, NONE [facility] Comment on above: Performed By: #### 5 7021-8 #### FERNANDO CARBAJAL ([id number]) [facility] ([facility]) [address] [place] [address] Study Interpretation of outs latoya studyon 12-05-2023 Outside images for comparison or treatment purposes, not interpreted by Radiologists. IMAGING US HEMODIALYSIS ACCESSon US HEMODIALYSIS ACCESS Patient Info Name: GENET BOOTH Age: 78 years : 1945 Gender: Male Exam Date: 11/26/2023 1:47 PM Patient Status: Outpatient Trade Show Coordinator: Yelena Bass, SHILPA, RDMS, RVT Referring Physician: CALI JACOB ; Indications - ESRD N18.6 - End stage renal disease Procedure Description 37337 Duplex scan of hemodialysis access using B-mode, color, and spectral Doppler. Conclusions * Patent arteriovenous fistula in the right upper extremity. Measurements listed below. * A branch measuring 6.6 mm is noted off the proximal fistula segment. This is one of the same branches visualized on the previous exam. The second branch off the proximal fistula is no longer visualized. * A second branch measuring 3.4 mm is noted off the mid to distal fistula and was not visualized on the previous exam. Measurements ---- Name Value ---- Flow Volume ---- Arterial Inflow 1,842 ml/min AVF Prox Outflow 953 ml/min AVF Mid Outflow 706 ml/min AVF Distal Outflow 1,126 ml/min Measurements ---- Name Value ---- Velocity ---- Inflow Artery Velocity 228 cm/s AVF Anastomosis Velocity 494 cm/s AVF Prox Velocity 183 cm/s AVF Mid Velocity 92 cm/s AVF Distal Velocity 101 cm/s Measurements ---- Name Value ---- AP ---- Inflow Artery AP 6.5 mm AVF Anastomosis AP 4.0 mm AVF Prox AP 11.3 mm AVF Mid AP 7.9 mm AVF Distal AP 7.3 mm Measurements ---- Name Value ---- Depth ---- AVF Prox Depth 1.6 mm AVF Mid Depth 2.2 mm AVF Distal Depth 5.9 mm Access: Fistula Inflow Artery: Brachial Outflow Vein: Cephalic Laterality: Right Prior Study Date: 10/20/2023 Risk Factors Patient has a history of hypertension, hyperlipidemia and tobacco use-previous. . Report Signatures Finalized by RADHA Wyman DO on 11/26/2023 04:38 PM [facility] HEMODIALYSIS ACCESS Patient Info Name: GENET BOOTH Age: 78 years : 1945 Gender: Male Exam Date: 11/26/2023 1:47 PM Patient Status: Outpatient Trade Show Coordinator: Yelena Bass, SHILPA, RDMS, RVT Referring Physician: CALI JACOB ; Indications - ESRD N18.6 - End stage renal disease Procedure Description 89641 Duplex scan of hemodialysis access using B-mode, color, and spectral Doppler. Conclusions * Patent arteriovenous fistula in the right upper extremity. Measurements listed below. * A branch measuring 6.6 mm is noted off the proximal fistula segment. This is one of the same branches visualized on the previous exam. The second branch off the proximal fistula is no longer visualized. * A second branch measuring 3.4 mm is noted off the mid to distal fistula and was not visualized on the previous exam. Measurements ---- Name Value ---- Flow Volume ---- Arterial Inflow 1,842 ml/min AVF Prox Outflow 953 ml/min AVF Mid Outflow 706 ml/min AVF Distal Outflow 1,126 ml/min Measurements ---- Name Value ---- Velocity ---- Inflow Artery Velocity 228 cm/s AVF Anastomosis Velocity 494 cm/s AVF Prox Velocity 183 cm/s AVF Mid Velocity 92 cm/s AVF Distal Velocity 101 cm/s Measurements ---- Name Value ---- AP ---- Inflow Artery AP 6.5 mm AVF Anastomosis AP 4.0 mm AVF Prox AP 11.3 mm AVF Mid AP 7.9 mm AVF Distal AP 7.3 mm Measurements ---- Name Value ---- Depth ---- AVF Prox Depth 1.6 mm AVF Mid Depth 2.2 mm AVF Distal Depth 5.9 mm Access: Fistula Inflow Artery: Brachial Outflow Vein: Cephalic Laterality: Right Prior Study Date: 10/20/2023 Risk Factors Patient has a history of hypertension, hyperlipidemia and tobacco use-previous. . Report Signatures Finalized by RADHA Wyman DO on 11/26/2023 04:38 PM Dictated by: MARCOS WILKINS III on FriNov 26, 2023 4:39:15 PM EDT Transcribed by: MARCOS WILKINS III on FriNov 26, 2023 4:39:15 PM EDT Finalized by: MARCOS WILKINS III on FriNov 26, 2023 4:39:15 PM EDT [facility] US HEMODIALYSIS ACCESSon US HEMODIALYSIS ACCESS Patient Info Name: GENET BOOTH Age: 78 years : 1945 Gender: Male Exam Date: 10/20/2023 6:59 AM Patient Status: Outpatient Trade Show Coordinator: Yelena Bass BS, RDMS, RVT Referring Physician: CALI JACOB ; Indications - AVF maturation assessment N18.6 - End stage renal disease Procedure Description 65648 Duplex scan of hemodialysis access using B-mode, color, and spectral Doppler. Conclusions * Patent arteriovenous fistula in the right upper extremity. Measurements listed below. * Two branches are noted off the proximal fistula segment measuring 2.6mm and 5.2mm. Measurements ---- Name Value ---- Flow Volume ---- Arterial Inflow 2,039 ml/min AVF Prox Outflow 1,061 ml/min AVF Mid Outflow 610 ml/min AVF Distal Outflow 527 ml/min Measurements ---- Name Value ---- Velocity ---- Inflow Artery Velocity 265 cm/s AVF Anastomosis Velocity 570 cm/s AVF Prox Velocity 159 cm/s AVF Mid Velocity 79 cm/s AVF Distal Velocity 67 cm/s Measurements ---- Name Value ---- AP ---- Inflow Artery AP 6.1 mm AVF Anastomosis AP 4.4 mm AVF Prox AP 8.9 mm AVF Mid AP 6.6 mm AVF Distal AP 6.2 mm Measurements ---- Name Value ---- Depth ---- AVF Prox Depth 3.7 mm AVF Mid Depth 3.7 mm AVF Distal Depth 10.0 mm Access: Fistula Inflow Artery: Brachial Outflow Vein: Cephalic Laterality: Right Risk Factors Patient has a history of hypertension, hyperlipidemia and tobacco use-previous. . Report Signatures Finalized by Cali Jacob MD on 10/20/2023 08:41 AM [facility] HEMODIALYSIS ACCESS Patient Info Name: GENET BOOTH Age: 78 years : 1945 Gender: Male Exam Date: 10/20/2023 6:59 AM Patient Status: Outpatient Trade Show Coordinator: Yelena Bass, SHILPA, RDMS, RVT Referring Physician: CALI JACOB ; Indications - AVF maturation assessment N18.6 - End stage renal disease Procedure Description 73783 Duplex scan of hemodialysis access using B-mode, color, and spectral Doppler. Conclusions * Patent arteriovenous fistula in the right upper extremity. Measurements listed below. * Two branches are noted off the proximal fistula segment measuring 2.6mm and 5.2mm. Measurements ---- Name Value ---- Flow Volume ---- Arterial Inflow 2,039 ml/min AVF Prox Outflow 1,061 ml/min AVF Mid Outflow 610 ml/min AVF Distal Outflow 527 ml/min Measurements ---- Name Value ---- Velocity ---- Inflow Artery Velocity 265 cm/s AVF Anastomosis Velocity 570 cm/s AVF Prox Velocity 159 cm/s AVF Mid Velocity 79 cm/s AVF Distal Velocity 67 cm/s Measurements ---- Name Value ---- AP ---- Inflow Artery AP 6.1 mm AVF Anastomosis AP 4.4 mm AVF Prox AP 8.9 mm AVF Mid AP 6.6 mm AVF Distal AP 6.2 mm Measurements ---- Name Value ---- Depth ---- AVF Prox Depth 3.7 mm AVF Mid Depth 3.7 mm AVF Distal Depth 10.0 mm Access: Fistula Inflow Artery: Brachial Outflow Vein: Cephalic Laterality: Right Risk Factors Patient has a history of hypertension, hyperlipidemia and tobacco use-previous. . Report Signatures Finalized by Cali Jacob MD on 10/20/2023 08:41 AM Dictated by: CALI JACOB on FriOctober 20, 2023 8:42:35 AM EDT Transcribed by: CALI JACOB on FriOctober 20, 2023 8:42:35 AM EDT Finalized by: CALI JACOB on FriOctober 20, 2023 8:42:35 AM EDT Normal [facility] CBC panel Auto (Bld)on 09-16 Erythrocyte distribution width (RBC) [Ratio] 15.5 % High 11.5-14.5 [facility] Comment on above: Performed By: #### 5 7021-8 #### FERNANDO CARBAJAL ([id number]) [facility] ([facility]) [address] [place] [address] 52107 Hematocrit (Bld) [Volume fraction] 32.4 % Low 41.0-52.0 [facility] Comment on above: Performed By: #### 5 7021-8 #### FERNANDO CARBAJAL ([id number]) [facility] ([facility]) [address] [place] [address] 90602 Hemoglobin (Bld) [Mass/Vol] 10.4 g/dL Low 13.5-17.5 [facility] Comment on above: Performed By: #### 5 7021-8 #### FERNANDO CARBAJAL ([id number]) [facility] ([facility]) [address] [place] [address] MCH (RBC) [Entitic mass] 30.5 pg Normal 26.0-34.0 [facility] Comment on above: Performed By: #### 5 7021-8 #### FERNANDO CARBAJAL ([id number]) [facility] ([facility]) [address] [place] [address] MCHC (RBC) [Mass/Vol] 32.1 g/dL Normal 32.0-36.0 [facility] Comment on above: Performed By: #### 5 7021-8 #### FERNANDO CARBAJAL ([id number]) [facility] ([facility]) [address] [place] [address] MCV (RBC) [Entitic vol] 95 fL Normal 80-100 [facility] Comment on above: Performed By: #### 5 7021-8 #### FERNANDO CARBAJAL ([id number]) [facility] ([facility]) [address] [place] [address] 61753 Nucleated RBC/100 WBC (Bld) [Ratio] 0.0 /100 WBCs Normal 0.0-0.0 [facility] Comment on above: Performed By: #### 5 7021-8 #### FERNANDO CARBAJAL ([id number]) [facility] ([facility]) [address] [place] [address] 11901 Platelets (Bld) [#/Vol] 251 x10*3/uL Normal 150-450 [facility] Comment on above: Performed By: #### 5 7021-8 #### FERNANDO CARBAJAL ([id number]) [facility] ([facility]) [address] [place] [address] 38852 RBC (Bld) [#/Vol] 3.41 x10*6/uL Low 4.50-5.90 [facility] Comment on above: Performed By: #### 5 7021-8 #### FERNANDO CARBAJAL ([id number]) [facility] ([facility]) [address] [place] [address] WBC (Bld) [#/Vol] 8.5 x10*3/uL Normal 4.4-11.3 [facility] Comment on above: Performed By: #### 5 7021-8 #### FERNANDO CARBAJAL ([id number]) [facility] ([facility]) [address] [place], [place] [phone] Coagulation tissue factor in ducedon 09-17-2023 PT Coag (PPP) [Time] 11.7 s Normal 9.8-12.8 [facility] Comment on above: Performed By: #### 5 7021-8 #### FERNANDO CARBAJAL ([id number]) [facility] ([facility]) [address] [place] [address] PT Coag (PPP) [Time]on 09-16 INR Coag (PPP) [Relative time] 1.0 Normal 0.9-1.1 [facility] Comment on above: Performed By: #### 5 7021-8 #### FERNANDO CARBAJAL ([id number]) [facility] ([facility]) [address] [place] [address] Bacteria identifiedon 2023 Bacteria identified Cx Nom (U) Test: Urine Culture Specimen Source: Clean Catch/Voided Specimen Type: Urine Specimen Date: 08/26/2023 8:30 AM Result Date: 08/27/2023 11:29 AM Result Status: Final result Abnormal: No Resulting Lab: [facility] [address] [place] [address] CULTURE No significant growth Normal [facility] Comment on above: Performed By: #### 6 30-4 ####KAYLAH Alegre ([id number])[facility] ([facility])[address] [place] [address] Study Interpretation of outs latoya studyon 08-26-2023 Outside images for comparison or treatment purposes, not interpreted by Radiologists. IMAGING Urinalysis complete panel (U )on 08-26-2023 Appearance (U) Cloudy Normal Clear [facility] Comment on above: Performed By: #### 2 4356-8 ####FERNANDO CARBAJAL ([id number])[facility] ([facility])[address] [place] [address] 36865 Bilirubin (U) [Mass/Vol] Negative Normal NEGATIVE [facility] Comment on above: Performed By: #### 2 4356-8 ####FERNANDO CARBAJAL ([id number])[facility] ([facility])[address] [place] [address] 09557 Color (U) Yellow Normal Straw, Yellow [facility] Comment on above: Performed By: #### 2 4356-8 ####FERNANDO CARBAJAL ([id number])[facility] ([facility])[address] [place] [address] 84489 Glucose Auto test strip (U) [Mass/Vol] Negative Normal NEGATIVE [facility] Comment on above: Performed By: #### 2 4356-8 ####FERNANDO CARBAJAL ([id number])[facility] ([facility])[address] [place] [address] 96711 Ketones (U) [Mass/Vol] Negative Normal NEGATIVE [facility] Comment on above: Performed By: #### 2 4356-8 ####FERNANDO CARBAJAL ([id number])[facility] ([facility])[address] [place] [address] 95549 Leukocyte esterase Auto test strip Ql (U) SMALL (1+) Abnormal NEGATIVE [facility] Comment on above: Performed By: #### 2 4356-8 ####FERNANDO CARBAJAL ([id number])[facility] ([facility])[address] [place] [address] 27934 Nitrite Auto test strip Ql (U) Negative Normal NEGATIVE [facility] Comment on above: Performed By: #### 2 4356-8 ####FERNANDO CARBAJAL ([id number])[facility] ([facility])[address] [place] [address] 47730 pH (U) 7.5 [pH] Normal 5.0, 5.5, 6.0, 6.5, 7.0, 7.5, 8.0 [facility] Comment on above: Performed By: #### 2 4356-8 ####FERNANDO CARBAJAL ([id number])[facility] ([facility])[address] [place] [address] Protein (U) [Mass/Vol] >=300 (3+) Abnormal NEGAT AUDI, TRACE [facility] Comment on above: Performed By: #### 2 4356-8 ####FERNANDO CARBAJAL ([id number])[facility] ([facility])[address] [place] [address] RBC (U) [#/Vol] MODERATE (2+) Abnormal NEGATIVE [facility] Comment on above: Performed By: #### 2 4356-8 ####FERNANDO CARBAJAL ([id number])[facility] ([facility])[address] [place] [address] Specific gravity (U) [Rel density] 1.020 Normal 1.005-1.035 [facility] Comment on above: Performed By: #### 2 4356-8 ####FERNANDO CARBAJAL ([id number])[facility] ([facility])[address] [place] [address] Urobilinogen (U) [Mass/Vol] 0.2 mg/dL Normal 0.2, 1.0 [facility] Comment on above: Performed By: #### 2 4356-8 ####FERNANDO CARBAJAL ([id number])[facility] ([facility])[address] [place] [address] Urinalysis microscopic panel Auto Ql (U)on 08-26-2023 Bacteria Auto (Urine sed) [#/Area] 1+ /HPF Abnormal NONE SEEN [facility] Comment on above: Performed By: #### 5 3315-8 ####FERNANDO CARBAJAL ([id number])[facility] ([facility])[address] [place] [address] Leukocyte clumps Auto (Urine sed) [#/Area] OCCASIONAL Normal Reference range not established. [facility] Comment on above: Performed By: #### 5 3315-8 ####FERNANDO CARBAJAL ([id number])[facility] ([facility])[address] [place] [address] 01638 RBC Auto (Urine sed) [#/Area] >20 Abnormal NONE, 1-2, 3-5 [facility] Comment on above: Performed By: #### 5 3315-8 ####FERNANDO CARBAJAL ([id number])[facility] ([facility])[address] [place] [address] 08588 WBC Auto (Urine sed) [#/Area] >50 Abnormal 1-5, NONE [facility] Comment on above: Performed By: #### 5 3315-8 ####FERNANDO CARBAJAL ([id number])[facility] ([facility])[address] [place] [address] 15764 Bacteria identifiedon 2023 Bacteria identified Cx Nom (Unsp spec) Test: Tissue/Wound Culture/Smear Specimen Source: Wound/Tissue Specimen Type: Tissue/Biopsy Specimen Date: 08/10/2023 3:30 PM Result Date: 08/12/2023 2:38 PM Result Status: Final result Abnormal: Yes Resulting Lab: [facility] [address] [place] [address] CULTURE (3+) Moderate Methicillin Resistant Staphylococcus aureus (MRSA) (Abnormal) Methicillin (Oxacillin) resistant Staphylococci are resistant to all currently available Penicillins, Beta-lactam/Beta-lacta penny inhibitor combinations (including Ampicillin/Sulbactam, Amoxicillin/Clavulanat e and Pipercillin/Tazobactam ), Carbapenems and Cephalosporins (except Ceftaroline). STAIN (1+) Rare Polymorphonuclear leukocytes (2+) Few Gram positive cocci, clusters SUSCEPTIBILITY Methicillin Resistant Staphylococcus aureus (MRSA) METHOD MICROSCAN ------- CLINDAMYCIN -- Resistant ERYTHROMYCIN -- Resistant OXACILLIN -- Resistant TETRACYCLINE -- Susceptible TRIMETHOPRIM/SULFAMETH OXAZOLE -- Susceptible VANCOMYCIN -- Susceptible Abnormal [facility] Comment on above: Performed By: #### 6 463-4 ####KAYLAH Alegre ([id number])[facility] ([facility])[address] [place] [address] XR Hip Viewson 07-25-2023 These images are not reportable by radiology and will not be interpreted by Radiologists. IMAGING NM MYOCARDIAL PERFUSION MULT I SPECTon 07-18-2023 NM MYOCARDIAL PERFUSION MULTI SPECT Patient Info Name: GENET BOOTH Age: 78 years : 1945 Gender: Male Ht: 180 cm Wt: 100 kg BSA: 2.27 m2 HR: 68 bpm BP: 134 / 77 mmHg Heart Rhythm: Sinus Rhythm Exam Date: 07/18/2023 12:29 PM Patient Status: Outpatient Any Known Allergies: See Chart [employer] Bi Developer: Bárbara Jeffrey, (N), KIM, UVALDO, Ata Jeffrey RT(N), NCT Exam Type: NM MYOCARDIAL PERFUSION MULTI SPECT Study Info Indications - Chest pain/anginal equiv, intermediate CAD risk, not treadmill candidate Nuclear Physician: Lucy Lynch MD Referring Physician: MARY; [id number] Primary Nurse: Jeremy Morrissey RN Supervising Stress Physician: Lucy Lynch MD BMI: 30.82 kg/m2 Summary 1. Probably normal pharmacologic stress SPECT myocardial perfusion imaging study. 2. No diagnostic ischemic EKG changes with regadenoson stress. 3. Technically difficult imaging due to body habitus, subdiaphragmatic attenuation and imaging limited only to supine imaging. 4. There is a fixed defect in the apical apex and anterior apex suspect due to soft tissue attenuation. Normal wall motion. 5. Overall left ventricular systolic function was normal without regional wall motion abnormalities. Gated SPECT imaging reveals normal myocardial wall thickening. Post stress left ventricular ejection fraction is normal, 55 %. Left ventricular cavity size is normal. 6. Overall intermediate-risk study based on SCAI criteria (1-3% predicted annual cardiac mortality). History/Risk Factors Hypertension: Yes Dyslipidemia: Yes Myocardial Infarction (ND): No Renal Disease: Yes Date of Last Tobacco Use: 06/02/1979 Diabetes Mellitus: No COPD: No Tobacco Use: Former Dialysis: Current History/Risk Factors GERD, CHLOÉ. Patient off home medications prior to study. Asthma: NO Caffeine in Last 24 Hours: No Seizure Disorder: No Wheezing: No Prior Interventions Pacemaker: No PCI: No CABG: No ICD: No Radiopharmaceutical: Tc-99m Tetrofosmin Administration Site: IV - left antecubital Administered By: Bárbara Jeffrey RT(N), [facility], [facility] Camera Used: RawFlow Ventri Radiopharmaceutical: Tc-99m Tetrofosmin Administration Site: IV - left antecubital Administered By: Ata Jeffrey RT(N), NCT Camera Used: RawFlow Ventri Image Protocol Protocol: Stress/Rest 1 Day Rest Radiopharmaceutical Dose: 22.0 mCi Imaging Date AND Time: 07/18/2023 1:15 PM Patient Position: supine Stress Radiopharmaceutical Dose: 7.5 mCi Imaging Date AND Time: 07/18/2023 11:30 AM Patient Position: supine Injection Date AND Time: 07/18/2023 12:00 AM Injection Date AND Time: 07/18/2023 10:30 AM Procedure(s): Gated SPECT images acquired supine post Tetrofosmin injection at peak stress. SPECT images acquired supine post Tetrofosmin injection at rest. [facility] [employer]/QPS application was utilized for processing and interpretation. SPECT Results Perfusion Findings Technically difficult imaging due to body habitus, subdiaphragmatic attenuation and imaging limited only to supine imaging. There is a fixed defect in the apical apex and anterior apex suspect due to soft tissue attenuation. Normal wall motion. Summed Difference Score: 0 Summed Stress Score: 4 Summed Rest Score: 4 Perfusion Quantitative Results Functional Results ---- Name Value Normal ---- Stress ---- Stress LV Ejection Fraction 55 % 55-70 Stress LV End Systolic Volume 44.00 ml Nuclear Stress Cardiac Output 4.10 l/min Stress LV End Diastolic Volume 98.00 ml Transient Ischemic Dilatation 1.10 Nuclear Stress Myocardial Mass 128.00 g Functional Findings Overall left ventricular systolic function was normal without regional wall motion abnormalities. Gated SPECT imaging reveals normal myocardial wall thickening. Post stress left ventricular ejection fraction is normal, 55 %. Left ventricular cavity size is normal. Report Signatures MPI SPECT Finalized by Lucy Lynch MD on 07/18/2023 02:08 PM Stress Finalized by Lucy Lynch MD on 07/18/2023 02:08 PM Stress ECG Details Protocol: LEXISCAN Rest HR: 78 bpm Peak HR: 99 bpm Peak Sys BP: 146 mmHg Max Pred HR: 143 bpm % Max Pred HR: 69 % Target HR: 122 bpm Max RPP: 14,454 bpm*mmHg Target HR Summary: Appropriate heeart rate response to Lexiscan BP Response: Appropriate Blood pressure response to Lexiscan Termination Reason: At the end of protocol Cardiac Symptoms: None Total Time: 5 min : 0 sec Peak Izaguirre BP: 80 mmHg Total Dose: 0.4 mg Resting ECG Normal sinus rhythm, low voltage. Stress ECG No diagnostic ischemic EKG changes with regadenoson stress. Arrhythmias Occasional PACs. Occasional PVCs. (more content not included)... Normal [facility] Comment on above: Order Comment: Injur y/Trauma or Illness?:Illness/Other How long have you had these symptoms (acute/chronic)?:Unknown Reason for exam?:cp, intermediate cad risk Type of Exam?:Unknown Additional signs and symptoms?:cp, intermediate cad risk FL PYELOGRAM RETROGRADEon FL PYELOGRAM RETROGRADE These images are not reportable by radiology and will not be interpreted by Radiologists. [facility] RF Kidney and Ureter and Uri nary bladder Views W contrast retrogradeon 06-24-2023 These images are not reportable by radiology and will not be interpreted by Radiologists. IMAGING US PREOPERATIVE MAPPING FOR HEMODIALYSIS ACCESS;BILATERALon 06-23-2023 US PREOPERATIVE MAPPING FOR HEMODIALYSIS ACCESS;BILATERAL Patient Info Name: GENET BOOTH Age: 78 years : 1945 Gender: Male Exam Date: 06/23/2023 8:04 AM Patient Status: Outpatient Trade Show Coordinator: Asha Sharma, KIANA, JULIANN Referring Physician: NAN DE LEÓN ; Indications - perm access for dialysis Z99.2 - Dependance on renal dialysis Procedure Description 53140 Duplex scan of arterial inflow and venous outflow for preoperative vessel assessment prior to creation of hemodialysis access using B-mode, color and spectral Doppler ; bilateral study. Conclusions * Right and left upper extremity arteries and veins are patent with measurements as listed. * A tourniquet was used for this exam. Recommendations * Bilateral basilic and right cephalic veins, as well as, bilateral brachial and right radial artery are of adequate diameter for primary AVF creation. Measurements ---- Name Value ---- Right Vein AP ---- Right Prox Arm Basilic AP 6.1 mm Right Distal Arm Basilic AP 6.3 mm Measurements ---- Name Value ---- Right Vein AP ---- Right Prox Arm Cephalic AP 3.6 mm Right Distal Arm Cephalic AP 3.9 mm Right Prox Forearm Cephalic AP 3.8 mm Right Distal Forearm Cephalic AP 3.8 mm ---- Name Value ---- Left Vein AP ---- Left Prox Arm Basilic AP 3.8 mm Left Distal Arm Basilic AP 3.9 mm ---- Name Value ---- Left Vein AP ---- Left Prox Arm Cephalic AP 1.4 mm Left Distal Arm Cephalic AP 1.2 mm Left Prox Forearm Cephalic AP 2.1 mm Left Distal Forearm Cephalic AP 1.9 mm Risk Factors Patient has a history of hypertension and hyperlipidemia. . Report Signatures Amended by Cali Jacob MD on 06/23/2023 09:00 AM Finalized by Cali Jacob MD on 06/23/2023 09:00 AM [facility] Comment on above: Order Comment: Pt/fa x US PREOPERATIVE MAPPING FOR HEMODIALYSIS ACCESS;BILATERAL Patient Info Name: GENET BOOTH Age: 78 years : 1945 Gender: Male Exam Date: 06/23/2023 8:04 AM Patient Status: Outpatient Trade Show Coordinator: Asha Sharma, KIANA, SANDHYAS Referring Physician: NAN DE LEÓN ; Indications - perm access for dialysis Z99.2 - Dependance on renal dialysis Procedure Description 66868 Duplex scan of arterial inflow and venous outflow for preoperative vessel assessment prior to creation of hemodialysis access using B-mode, color and spectral Doppler ; bilateral study. Conclusions * Right and left upper extremity arteries and veins are patent with measurements as listed. * A tourniquet was used for this exam. Recommendations * Bilateral basilic and right cephalic veins, as well as, bilateral brachial and right radial artery are of adequate diameter for primary AVF creation. Measurements ---- Name Value ---- Right Vein AP ---- Right Prox Arm Basilic AP 6.1 mm Right Distal Arm Basilic AP 6.3 mm Measurements ---- Name Value ---- Right Vein AP ---- Right Prox Arm Cephalic AP 3.6 mm Right Distal Arm Cephalic AP 3.9 mm Right Prox Forearm Cephalic AP 3.8 mm Right Distal Forearm Cephalic AP 3.8 mm ---- Name Value ---- Left Vein AP ---- Left Prox Arm Basilic AP 3.8 mm Left Distal Arm Basilic AP 3.9 mm ---- Name Value ---- Left Vein AP ---- Left Prox Arm Cephalic AP 1.4 mm Left Distal Arm Cephalic AP 1.2 mm Left Prox Forearm Cephalic AP 2.1 mm Left Distal Forearm Cephalic AP 1.9 mm Risk Factors Patient has a history of hypertension and hyperlipidemia. . Report Signatures Amended by Cali Jacob MD on 06/23/2023 09:00 AM Finalized by Cali Jacob MD on 06/23/2023 09:00 AM Dictated by: CALI JACOB on FriJun 23, 2023 9:00:45 AM EST Transcribed by: CALI JACOB on FriJun 23, 2023 9:00:45 AM EST Finalized by: CALI JACOB on FriJun 23, 2023 9:00:45 AM EST Normal [facility] Comment on above: Order Comment: Pt/fa x Basic metabolic 2000 panelon 06-18-2023 Anion gap [Moles/Vol] 13 mmol/L Normal 10-20 [facility] Comment on above: Performed By: #### 2 4321-2 ####FERNANDO CARBAJAL ([id number])[facility] ([facility])[address] [place] [address] Performed By: #### 2 4323-8 ####FERANNDO CARBAJAL ([id number])[facility] ([facility])[address] [place] [address] 14200 Calcium [Mass/Vol] 8.8 mg/dL Normal 8.6-10.3 [facility] Comment on above: Performed By: #### 2 4321-2 ####FERNANDO CARBAJAL ([id number])[facility] ([facility])[address] [place] [address] Performed By: #### 2 4323-8 ####FERNANDO CARBAJAL ([id number])[facility] ([facility])[address] [place] [address] 30260 Chloride [Moles/Vol] 96 mmol/L Low 98-107 [facility] Comment on above: Performed By: #### 2 4321-2 ####FERNANDO CARBAJAL ([id number])[facility] ([facility])[address] [place] [address] 95217 Performed By: #### 2 4323-8 ####FERNANDO CARBAJAL ([id number])[facility] ([facility])[address] [place] [address] CO2 [Moles/Vol] 33 mmol/L High 21-32 [facility] Comment on above: Performed By: #### 2 4321-2 ####FERNANDO CARBAJAL ([id number])[facility] ([facility] [place] [address] Performed By: #### 2 4323-8 ####FERNANDO CARBAJAL ([id number])[facility] ([facility])[address] [place] [address] 58576 Creatinine [Mass/Vol] 3.98 mg/dL High 0.50-1.30 [facility] Comment on above: Performed By: #### 2 432-2 ####FERNANDO CARBAJAL ([id number])[facility] ([facility])[address] [place] [address] 15254 Performed By: #### 2 4323-8 ####FERNANDO CARBAJAL ([id number])[facility] ([facility])[address] [place] [address] 05542 Glomerular filtration rate/1.73 sq M.predicted 15 mL/min/1.73m*2 Low >60 [facility] Comment on above: Result Comment: Calc ulations of estimated GFR are performed using the 2020 CKD-EPI Study Refit equation without the race variable for the IDMS-Traceable creatinine methods. https://jasn.asnjournals.org/content//ASN.61003 26322 Performed By: #### 2 432-2 ####FERNANDO CARBAJAL ([id number])[facility] ([facility])[address] [place] [address] 92334 Performed By: #### 2 4323-8 ####FERNANDO CARBAJAL ([id number])[facility] ([facility] [place] [address] Glucose [Mass/Vol] 82 mg/dL Normal 74-99 [facility] Comment on above: Performed By: #### 2 4321-2 ####FERNANDO CARBAJAL ([id number])[facility] ([facility])[address] [place] [address] Performed By: #### 2 432-8 ####FERNANDO CARBAJAL ([id number])[facility] ([facility])[address] [place] [address] Potassium [Moles/Vol] 4.1 mmol/L Normal 3.5-5.3 [facility] Comment on above: Performed By: #### 2 1-2 ####FERNANDO CARBAJAL ([id number])[facility] ([facility])[address] [place] [address] Performed By: #### 2 432-8 ####FERNANDO CARBAJAL ([id number])[facility] ([facility])[address] [place] [address] Sodium [Moles/Vol] 138 mmol/L Normal 136-145 [facility] Comment on above: Performed By: #### 2 4320-2 ####FERNANDO CARBAJAL ([id number])[facility] ([facility])[address] [place] [address] Performed By: #### 2 432-8 ####FERNANDO CARBAJAL ([id number])[facility] ([facility])[address] [place] [address] Urea nitrogen [Mass/Vol] 39 mg/dL High 6-23 [facility] Comment on above: Performed By: #### 2 432-2 ####FERNANDO CARBAJAL ([id number])[facility] ([facility])[address] [place] [address] Performed By: #### 2 4323-8 ####FERNANDO CARBAJAL ([id number])[facility] ([facility])[address] [place] [address] CBC W Auto Differential pane l (Bld)on 06-18-2023 Basophils (Bld) [#/Vol] 0.06 x10*3/uL Normal 0.00-0.10 [facility] Comment on above: Performed By: #### 5 7021-8 ####FERNANDO CARBAJAL ([id number])[facility] ([facility])[address] [place] [address] 54022 Basophils/100 WBC (Bld) 0.7 % Normal 0.0-2.0 [facility] Comment on above: Performed By: #### 5 7021-8 ####FERNANDO CARBAJAL ([id number])[facility] ([facility])[address] [place] [address] 08154 Eosinophils (Bld) [#/Vol] 0.37 x10*3/uL Normal 0.00-0.40 [facility] Comment on above: Performed By: #### 5 7021-8 ####FERNANDO CARBAJAL ([id number])[facility] ([facility])[address] [place] [address] 18633 Eosinophils/100 WBC (Bld) 4.1 % Normal 0.0-6.0 [facility] Comment on above: Performed By: #### 5 7021-8 ####FERNANDO CARBAJAL ([id number])[facility] ([facility])[address] [place] [address] 53659 Erythrocyte distribution width (RBC) [Ratio] 15.5 % High 11.5-14.5 [facility] Comment on above: Performed By: #### 5 7021-8 ####FERNANDO CARBAJAL ([id number])[facility] ([facility])[address] [place] [address] 37076 Hematocrit (Bld) [Volume fraction] 30.8 % Low 41.0-52.0 [facility] Comment on above: Performed By: #### 5 7021-8 ####FERNANDO CARBAJAL ([id number])[facility] ([facility])[address] [place] [address] 89227 Hemoglobin (Bld) [Mass/Vol] 9.2 g/dL Low 13.5-17.5 [facility] Comment on above: Performed By: #### 5 7021-8 ####FERNANDO CARBAJAL ([id number])[facility] ([facility])[address] [place] [address] 03888 Immature granulocytes (Bld) [#/Vol] 0.18 x10*3/uL Normal 0.00-0.50 [facility] Comment on above: Performed By: #### 5 7021-8 ####FERNNADO CARBAJAL ([id number])[facility] ([facility])[address] [place] [address] 33600 Immature granulocytes/100 WBC (Bld) 2.0 % High 0.0-0.9 [facility] Comment on above: Result Comment: Lubna ture Granulocyte Count (IG) includes promyelocytes, myelocytes and metamyelocytes but does not include bands. Percent differential counts (%) should be interpreted in the context of the absolute cell counts (cells/UL). Performed By: #### 5 7021-8 ####FERNANDO CARBAJAL ([id number])[facility] ([facility])[address] [place] [address] 96660 Lymphocytes (Bld) [#/Vol] 1.83 x10*3/uL Normal 0.80-3.00 [facility] Comment on above: Performed By: #### 5 7021-8 ####FERNANDO CARBAJAL ([id number])[facility] ([facility])[address] [place] [address] 76713 Lymphocytes/100 WBC (Bld) 20.5 % Normal 13.0-44.0 [facility] Comment on above: Performed By: #### 5 7021-8 ####FERNANDO CARBAJAL ([id number])[facility] ([facility])[address] [place] [address] 56242 MCH (RBC) [Entitic mass] 28.8 pg Normal 26.0-34.0 [facility] Comment on above: Performed By: #### 5 7021-8 ####FERNANDO CARBAJAL ([id number])[facility] ([facility])[address] [place] [address] 24979 MCHC (RBC) [Mass/Vol] 29.9 g/dL Low 32.0-36.0 [facility] Comment on above: Performed By: #### 5 7021-8 ####FERNANDO CARBAJAL ([id number])[facility] ([facility])[address] [place] [address] 04837 MCV (RBC) [Entitic vol] 96 fL Normal 80-100 [facility] Comment on above: Performed By: #### 5 7021-8 ####FERNANDO CARBAJAL ([id number])[facility] ([facility])[address] [place] [address] 92187 Monocytes (Bld) [#/Vol] 0.60 x10*3/uL Normal 0.05-0.80 [facility] Comment on above: Performed By: #### 5 7021-8 ####FERNANDO CARBAJAL ([id number])[facility] ([facility])[address] [place] [address] 73975 Monocytes/100 WBC (Bld) 6.7 % Normal 2.0-10.0 [facility] Comment on above: Performed By: #### 5 7021-8 ####FERNANDO CARBAJAL ([id number])[facility] ([facility])[address] [place] [address] 58881 Neutrophils (Bld) [#/Vol] 5.89 x10*3/uL High 1.60-5.50 [facility] Comment on above: Result Comment: Perc ent differential counts (%) should be interpreted in the context of the absolute cell counts (cells/uL). Performed By: #### 5 7021-8 ####FERNANDO CARBAJAL ([id number])[facility] ([facility])[address] [place] [address] 31828 Neutrophils/100 WBC (Bld) 66.0 % Normal 40.0-80.0 [facility] Comment on above: Performed By: #### 5 7021-8 ####FERNANDO CARBAJAL ([id number])[facility] ([facility])[address] [place] [address] 34571 Nucleated RBC/100 WBC (Bld) [Ratio] 0.0 /100 WBCs Normal 0.0-0.0 [facility] Comment on above: Performed By: #### 5 7021-8 ####FERNANDO CARBAJAL ([id number])[facility] ([facility])[address] [place] [address] Platelets (Bld) [#/Vol] 296 x10*3/uL Normal 150-450 [facility] Comment on above: Performed By: #### 5 7021-8 ####FERNANDO CARBAJAL ([id number])[facility] ([facility])[address] [place] [address] RBC (Bld) [#/Vol] 3.20 x10*6/uL Low 4.50-5.90 [facility] Comment on above: Performed By: #### 5 7021-8 ####FERNANDO CARBAJAL ([id number])[facility] ([facility])[address] [place] [address] WBC (Bld) [#/Vol] 8.9 x10*3/uL Normal 4.4-11.3 [facility] Comment on above: Performed By: #### 5 7021-8 ####FERNANDO CARBAJAL ([id number])[facility] ([facility])[address] [place] [address] Comprehensive metabolic 2000 panelon 06-18-2023 Albumin BCP dye [Mass/Vol] 3.2 g/dL Low 3.4-5.0 [facility] Comment on above: Performed By: #### 2 4323-8 ####FERNANDO CARBAJAL ([id number])[facility] ([facility])[address] [place] [address] ALP [Catalytic activity/Vol] 65 U/L Normal 33-136 [facility] Comment on above: Performed By: #### 2 4323-8 ####FERNANDO CARBAJAL ([id number])[facility] ([facility])[address] [place] [address] ALT With P-5'-P [Catalytic activity/Vol] 14 U/L Normal 10-52 [facility] Comment on above: Result Comment: Rhea ents treated with Sulfasalazine may generate falsely decreased results for ALT. Performed By: #### 2 4323-8 ####FERNANDO CARBAJAL ([id number])[facility] ([facility])[address] [place] [address] AST With P-5'-P [Catalytic activity/Vol] 13 U/L Normal 9-39 [facility] Comment on above: Performed By: #### 2 4323-8 ####FERNANDO CARBAJAL ([id number])[facility] ([facility])[address] [place] [address] 22854 Bilirubin [Mass/Vol] 0.3 mg/dL Normal 0.0-1.2 [facility] Comment on above: Performed By: #### 2 4323-8 ####FERNANDO CARBAJAL ([id number])[facility] ([facility])[address] [place] [address] 82999 Protein [Mass/Vol] 6.3 g/dL Low 6.4-8.2 [facility] Comment on above: Performed By: #### 2 4323-8 ####FERNANDO CARBAJAL ([id number])[facility] ([facility])[address] [place], [place] [address] Procalcitoninon 06-18-2023 Procalcitonin [Mass/Vol] 0.24 ng/mL High <=0.07 [facility] Comment on above: Order Comment: Proca lcitonin (PCT) results measured serially canaid in decision-making for antibiotic discontinuation inpatients with suspected or confirmed sepsis in conjunctionwith additional clinical information. Antibioticdiscontinuation may be considered with a change in PCT of>80% from the peak result or when PCT falls below 0.50 ng/mL.Procalcitonin results should not be used in isolation butshould be interpreted in conjunction with additional clinicaland laboratory findings. Procalcitonin results should not beused to guide the initiation of antibiotic therapy.Falsely low PCT values in the presence of bacterial infectionmay occur in early infection, with atypical pathogens,localized infections, and subacute infectious endocarditis.Falsely elevated results outside of severe bacterialinfection/sepsis may be seen in patients with renal failureor insufficiency, severe trauma or curry, recent majorabdominal/cardiac surgery, acute multi-organ failure, rarelyin patients with medullary thyroid carcinoma and rareneuroendocrine tumors, and non-specific interfering antibodies(heterophile antibodies, rheumatoid factor, human anti-mouseantibodies (HAMA), etc).Performance of the PCT test in pediatric patients (<18yo), women, immunocompromised patients, and patients onimmunomodulatory medications has not been evaluated. Performed By: #### 3 3959-8 ####KAYLAH Alegre ([id number])[facility] ([facility])[address] [place], [place] [id number] Bacteria identifiedon 2023 Bacteria identified Cx Nom (U) Test: Urine Culture Specimen Source: Straight Catheter Specimen Type: Urine Specimen Date: 06/17/2023 6:53 AM Result Date: 06/19/2023 2:19 PM Result Status: Final result Abnormal: Yes Resulting Lab: [facility] [address] [place] [address] CULTURE >100,000 Escherichia coli (Abnormal) Extended Spectrum Beta Lactamase (ESBL) producing organism SUSCEPTIBILITY Escherichia coli METHOD MICROSCAN AMOXICILLIN/CLAVULANAT E -- Susceptible AMPICILLIN -- Resistant AMPICILLIN/SULBACTAM -- Intermediate AZTREONAM -- Resistant CEFAZOLIN -- Resistant CEFAZOLIN (UNCOMPLICATED UTIS ONLY) -- Resistant CEFEPIME -- Resistant CEFOTAXIME -- Resistant CEFTAZIDIME -- Resistant CEFTRIAXONE -- Resistant CIPROFLOXACIN -- Resistant ERTAPENEM -- Susceptible GENTAMICIN -- Susceptible MEROPENEM -- Susceptible NITROFURANTOIN -- Susceptible PIPERACILLIN/TAZOBACTA M -- Susceptible TRIMETHOPRIM/SULFAMETH OXAZOLE -- Resistant Abnormal [facility] Comment on above: Performed By: #### 6 30-4 ####KAYLAH Alegre ([id number])[facility] ([facility])[address] [place], [place] [phone] Urinalysis complete W Reflex Culture panel (U)on 06-17-2023 Appearance (U) Hazy Normal Clear [facility] Comment on above: Performed By: #### 5 8077-9 ####FERNANDO CARBAJAL ([id number])[facility] ([facility])[address] [place] [address] 58229 Bilirubin (U) [Mass/Vol] Negative Normal NEGATIVE [facility] Comment on above: Performed By: #### 5 8077-9 ####FERNANDO CARBAJAL ([id number])[facility] ([facility])[address] [place], [place] [address] Color (U) Yellow Normal Straw, Yellow [facility] Comment on above: Performed By: #### 5 8077-9 ####FERNANDO CARBAJAL ([id number])[facility] ([facility])[address] [place] [address] Glucose Auto test strip (U) [Mass/Vol] Negative Normal NEGATIVE [facility] Comment on above: Performed By: #### 5 8077-9 ####FERNANDO CARBAJAL ([id number])[facility] ([facility])[address] [place], [place] [address] Ketones (U) [Mass/Vol] Negative Normal NEGATIVE [facility] Comment on above: Performed By: #### 5 8077-9 ####FERNANDO CARBAJAL ([id number])[facility] ([facility])[address] [place], [place] [address] Leukocyte esterase Auto test strip Ql (U) LARGE (3+) Abnormal NEGATIVE [facility] Comment on above: Performed By: #### 5 8077-9 ####FERNANDO CARBAJAL ([id number])[facility] ([facility])[address] [place] [address] 07388 Nitrite Auto test strip Ql (U) Negative Normal NEGATIVE [facility] Comment on above: Performed By: #### 5 8077-9 ####FERNANDO CARBAJAL ([id number])[facility] ([facility])[address] [place] [address] 72854 pH (U) 8.0 [pH] Normal 5.0, 5.5, 6.0, 6.5, 7.0, 7.5, 8.0 [facility] Comment on above: Performed By: #### 5 8077-9 ####FERNANDO CARBAJAL ([id number])[facility] ([facility])[address] [place] [address] Protein (U) [Mass/Vol] 100 (2+) Normal NEGATIVE [facility] Comment on above: Performed By: #### 5 8077-9 ####FERNANDO CARBAJAL ([id number])[facility] ([facility])[address] [place] [address] RBC (U) [#/Vol] SMALL (1+) Abnormal NEGATIVE [facility] Comment on above: Performed By: #### 5 8077-9 ####FERNANDO CARBAJAL ([id number])[facility] ([facility])[address] [place] [address] Specific gravity (U) [Rel density] 1.011 Normal 1.005-1.035 [facility] Comment on above: Performed By: #### 5 8077-9 ####FERNANDO CARBAJAL ([id number])[facility] ([facility])[address] [place] [address] 88408 Urobilinogen (U) [Mass/Vol] mg/dL Normal <2.0 [facility] Comment on above: Performed By: #### 5 8077-9 ####FERNANDO CARBAJAL ([id number])[facility] ([facility])[address] [place], [place] [address] Urinalysis microscopic panel Auto Ql (U)on 06-17-2023 Bacteria Auto (Urine sed) [#/Area] 1+ /HPF Abnormal NONE SEEN [facility] Comment on above: Performed By: #### 5 3315-8 ####FERNANDO CARBAJAL ([id number])[facility] ([facility])[address] [place] [address] 03185 Leukocyte clumps Auto (Urine sed) [#/Area] MANY Normal Reference range not established. [facility] Comment on above: Performed By: #### 5 3315-8 ####FERNANDO CARBAJAL ([id number])[facility] ([facility] [place] [address] RBC Auto (Urine sed) [#/Area] 6-10 Abnormal NONE, 1-2, 3-5 [facility] Comment on above: Performed By: #### 5 3315-8 ####FERNANDO CARBAJAL ([id number])[facility] ([facility])[address] [place] [address] 34425 WBC Auto (Urine sed) [#/Area] >50 Abnormal 1-5, NONE [facility] Comment on above: Performed By: #### 5 3315-8 ####FERNANDO CARBAJAL ([id number])[facility] ([facility])[address] [place] [address] 38537 Bacteria identifiedon 2023 Bacteria identified Cx Nom (U) Test: Urine Culture Specimen Source: Clean Catch/Voided Specimen Type: Urine Specimen Date: 06/12/2023 2:45 AM Result Date: 06/13/2023 7:37 AM Result Status: Final result Abnormal: Yes Resulting Lab: [facility] [address] [place] [address] CULTURE Multiple organisms present, probable contamination. Repeat culture if clinically indicated. (Abnormal) Abnormal [facility] Comment on above: Performed By: #### 6 30-4 ####KAYLAH Alegre ([id number])[facility] ([facility])[address] [place] [address] Basic metabolic 2000 panelon 06-12-2023 Anion gap [Moles/Vol] 18 mmol/L 10 - 2 0 mmol/L [facility] Calcium [Mass/Vol] 9.7 mg/dL 8.6 - 10. 3 mg/dL [facility] Chloride [Moles/Vol] 89 mmol/L Low 98 - 10 7 mmol/L [facility] CO2 [Moles/Vol] 29 mmol/L 21 - 32 mmol/L [facility] Creatinine [Mass/Vol] 5.95 mg/dL High 0.50 - 1.30 mg/dL [facility] GFR/1.73 sq M.predicted among non-blacks MDRD (S/P/Bld) [Vol rate/Area] 9 mL/min/{1.73_m2} Low - PINF [facility] Comment on above: Calculations of alejandra mated GFR are performed using the 2020 CKD-EPI Study Refit equation without the race variable for the IDMS-Traceable creatinine methods. https://jasn.asnjournals.org/content//ASN.24299 42219 Glucose [Mass/Vol] 106 mg/dL High 74 - 99 mg/dL [facility] Interpretation and review of laboratory results Abnormal [facility] Potassium [Moles/Vol] 4.3 mmol/L 3.5 - 5.3 mmol/L [facility] Sodium [Moles/Vol] 132 mmol/L Low 136 - 145 mmol/L [facility] Urea nitrogen [Mass/Vol] 63 mg/dL High 6 - 23 mg/dL [facility] Anion gap [Moles/Vol] 18 mmol/L Normal 10-20 [facility] Comment on above: Performed By: #### 2 4321-2 ####FERNANDO CARBAJAL ([id number])[facility] ([facility])[address] [place] [address] 39461 Calcium [Mass/Vol] 9.7 mg/dL Normal 8.6-10.3 [facility] Comment on above: Performed By: #### 2 4321-2 ####FERNANDO CARBAJAL ([id number])[facility] ([facility])[address] [place] [address] 63664 Chloride [Moles/Vol] 89 mmol/L Low 98-107 [facility] Comment on above: Performed By: #### 2 4321-2 ####FERNANDO CARBAJAL ([id number])[facility] ([facility])[address] [place] [address] 55403 CO2 [Moles/Vol] 29 mmol/L Normal 21-32 [facility] Comment on above: Performed By: #### 2 4321-2 ####FERNANDO CARBAJAL ([id number])[facility] ([facility])[address] [place] [address] Creatinine [Mass/Vol] 5.95 mg/dL High 0.50-1.30 [facility] Comment on above: Performed By: #### 2 4321-2 ####FERNANDO CARBAJAL ([id number])[facility] ([facility])[address] [place] [address] 48147 Glomerular filtration rate/1.73 sq M.predicted 9 mL/min/1.73m*2 Low >60 [facility] Comment on above: Result Comment: Calc ulations of estimated GFR are performed using the 2020 CKD-EPI Study Refit equation without the race variable for the IDMS-Traceable creatinine methods. https://jasn.asnjournals.org/content/early//ASN.51981 73895 Performed By: #### 2 4321-2 ####FERNANDO CARBAJAL ([id number])[facility] ([facility])[address] [place] [address] 20146 Glucose [Mass/Vol] 106 mg/dL High 74-99 [facility] Comment on above: Performed By: #### 2 4321-2 ####FERNANDO CARBAJAL ([id number])[facility] ([facility])[address] [place] [address] 62296 Potassium [Moles/Vol] 4.3 mmol/L Normal 3.5-5.3 [facility] Comment on above: Performed By: #### 2 4321-2 ####FERNANDO CARBAJAL ([id number])[facility] ([facility])[address] [place] [address] 60508 Sodium [Moles/Vol] 132 mmol/L Low 136-145 [facility] Comment on above: Performed By: #### 2 4321-2 ####FERNANDO CARBAJAL ([id number])[facility] ([facility])[address] [place] [address] 82826 Urea nitrogen [Mass/Vol] 63 mg/dL High 6-23 [facility] Comment on above: Performed By: #### 2 4321-2 ####[place] ([id number])[facility] ([facility])[address] [place] [address] CBC W Auto Differential pane l (Bld)on 06-12-2023 Basophils (Bld) [#/Vol] 0.05 10*3/uL [facility] Basophils/100 WBC (Bld) 0.4 % 0.0 - 2.0 % [facility] Eosinophils (Bld) [#/Vol] 0.04 10*3/uL [facility] Eosinophils/100 WBC (Bld) 0.4 % 0.0 - 6.0 % [facility] Erythrocyte distribution width (RBC) [Ratio] 16.7 % High 11.5 - 14.5 % [facility] Hematocrit (Bld) [Volume fraction] 31.8 % Low 41.0 - 52.0 % [facility] Hemoglobin (Bld) [Mass/Vol] 10.0 g/dL Low 13.5 - 17.5 g/dL [facility] Immature granulocytes (Bld) [#/Vol] 0.06 10*3/uL [facility] Immature granulocytes/100 WBC (Bld) 0.5 % 0.0 - 0.9 % [facility] Comment on above: Immature Granulocyte Count (IG) includes promyelocytes, myelocytes and metamyelocytes but does not include bands. Percent differential counts (%) should be interpreted in the context of the absolute cell counts (cells/UL). Interpretation and review of laboratory results Abnormal [facility] Lymphocytes (Bld) [#/Vol] 1.19 10*3/uL [facility] Lymphocytes/100 WBC (Bld) 10.5 % 13.0 - 44.0 % [facility] MCH (RBC) [Entitic mass] 29.9 pg 26.0 - 34.0 pg [facility] MCHC (RBC) [Mass/Vol] 31.4 g/dL Low 32.0 - 36.0 g/dL [facility] MCV (RBC) [Entitic vol] 95 fL 80 - 100 fL [facility] Monocytes (Bld) [#/Vol] 0.99 10*3/uL High [facility] Monocytes/100 WBC (Bld) 8.7 % 2.0 - 10.0 % [facility] Neutrophils (Bld) [#/Vol] 9.05 10*3/uL High [facility] Comment on above: Percent differential counts (%) should be interpreted in the context of the absolute cell counts (cells/uL). Neutrophils/100 WBC (Bld) 79.5 % 40.0 - 80.0 % [facility] Nucleated RBC/100 WBC (Bld) [Ratio] 0.0 % [facility] Platelets (Bld) [#/Vol] 266 10*3/uL [facility] RBC (Bld) [#/Vol] 3.34 10*6/uL Low [facility] WBC (Bld) [#/Vol] 11.4 10*3/uL High [facility] Basophils (Bld) [#/Vol] 0.05 x10*3/uL Normal 0.00-0.10 [facility] Comment on above: Performed By: #### 5 7021-8 ####FERNANDO CARBAJAL ([id number])[facility] ([facility])[address] [place] [address] 20145 Basophils/100 WBC (Bld) 0.4 % Normal 0.0-2.0 [facility] Comment on above: Performed By: #### 5 7021-8 ####FERNANDO CARBAJAL ([id number])[facility] ([facility])[address] [place] [address] 62378 Eosinophils (Bld) [#/Vol] 0.04 x10*3/uL Normal 0.00-0.40 [facility] Comment on above: Performed By: #### 5 7021-8 ####FERNANDO CARBAJAL ([id number])[facility] ([facility])[address] [place] [address] 17088 Eosinophils/100 WBC (Bld) 0.4 % Normal 0.0-6.0 [facility] Comment on above: Performed By: #### 5 7021-8 ####FERNANDO CARBAJAL ([id number])[facility] ([facility])[address] [place] [address] Erythrocyte distribution width (RBC) [Ratio] 16.7 % High 11.5-14.5 [facility] Comment on above: Performed By: #### 5 7021-8 ####FERNANDO CARBAJAL ([id number])[facility] ([facility])[address] [place] [address] Hematocrit (Bld) [Volume fraction] 31.8 % Low 41.0-52.0 [facility] Comment on above: Performed By: #### 5 7021-8 ####FERNANDO CARBAJAL ([id number])[facility] ([facility])[address] [place], [place] [address] Hemoglobin (Bld) [Mass/Vol] 10.0 g/dL Low 13.5-17.5 [facility] Comment on above: Performed By: #### 5 7021-8 ####FERNANDO CARBAJAL ([id number])[facility] ([facility])[address] [place], [place] [address] Immature granulocytes (Bld) [#/Vol] 0.06 x10*3/uL Normal 0.00-0.50 [facility] Comment on above: Performed By: #### 5 7021-8 ####FERNANDO CARBAJAL ([id number])[facility] ([facility])[address] [place] [address] Immature granulocytes/100 WBC (Bld) 0.5 % Normal 0.0-0.9 [facility] Comment on above: Result Comment: [place] ture Granulocyte Count (IG) includes promyelocytes, myelocytes and metamyelocytes but does not include bands. Percent differential counts (%) should be interpreted in the context of the absolute cell counts (cells/UL). Performed By: #### 5 7021-8 ####FERNANDO CARBAJAL ([id number])[facility] ([facility])[address] [place], [place] [address] Lymphocytes (Bld) [#/Vol] 1.19 x10*3/uL Normal 0.80-3.00 [facility] Comment on above: Performed By: #### 5 7021-8 ####FERNANDO CARBAJAL ([id number])[facility] ([facility])[address] [place] [address] 95118 Lymphocytes/100 WBC (Bld) 10.5 % Normal 13.0-44.0 [facility] Comment on above: Performed By: #### 5 7021-8 ####FERNANDO CARBAJAL ([id number])[facility] ([facility])[address] [place] [address] 87150 MCH (RBC) [Entitic mass] 29.9 pg Normal 26.0-34.0 [facility] Comment on above: Performed By: #### 5 7021-8 ####FERNANDO CARBAJAL ([id number])[facility] ([facility])[address] [place] [address] 62617 MCHC (RBC) [Mass/Vol] 31.4 g/dL Low 32.0-36.0 [facility] Comment on above: Performed By: #### 5 7021-8 ####FERNANDO CARBAJAL ([id number])[facility] ([facility])[address] [place] [address] 86548 MCV (RBC) [Entitic vol] 95 fL Normal 80-100 [facility] Comment on above: Performed By: #### 5 7021-8 ####FERNANDO CARBAJAL ([id number])[facility] ([facility])[address] [place] [address] 73664 Monocytes (Bld) [#/Vol] 0.99 x10*3/uL High 0.05-0.80 [facility] Comment on above: Performed By: #### 5 7021-8 ####FERNANDO CARBAJAL ([id number])[facility] ([facility])[address] [place] [address] 02954 Monocytes/100 WBC (Bld) 8.7 % Normal 2.0-10.0 [facility] Comment on above: Performed By: #### 5 7021-8 ####FERNANDO CARBAJAL ([id number])[facility] ([facility])[address] [place] [address] 82822 Neutrophils (Bld) [#/Vol] 9.05 x10*3/uL High 1.60-5.50 [facility] Comment on above: Result Comment: Perc ent differential counts (%) should be interpreted in the context of the absolute cell counts (cells/uL). Performed By: #### 5 7021-8 ####FERNANDO CARBAJAL ([id number])[facility] ([facility])[address] [place] [address] 85342 Neutrophils/100 WBC (Bld) 79.5 % Normal 40.0-80.0 [facility] Comment on above: Performed By: #### 5 7021-8 ####FERNANDO CARBAJAL ([id number])[facility] ([facility])[address] [place] [address] 03735 Nucleated RBC/100 WBC (Bld) [Ratio] 0.0 /100 WBCs Normal 0.0-0.0 [facility] Comment on above: Performed By: #### 5 7021-8 ####FERNANDO CARBAJAL ([id number])[facility] ([facility])[address] [place] [address] 91306 Platelets (Bld) [#/Vol] 266 x10*3/uL Normal 150-450 [facility] Comment on above: Performed By: #### 5 7021-8 ####FERNANDO CARBAJAL ([id number])[facility] ([facility])[address] [place] [address] RBC (Bld) [#/Vol] 3.34 x10*6/uL Low 4.50-5.90 [facility] Comment on above: Performed By: #### 5 7021-8 ####FERNANDO CARBAJAL ([id number])[facility] ([facility])[address] [place] [address] 73001 WBC (Bld) [#/Vol] 11.4 x10*3/uL High 4.4-11.3 [facility] Comment on above: Performed By: #### 5 7021-8 ####FERNANDO CARBAJAL ([id number])[facility] ([facility])[address] [place] [address] FLUAV and FLUBV RNA JACK+prob e Nom (Unsp spec)on 06-12-2023 FLUAV RNA JACK+probe Ql (Resp) Not detected Not Detected [facility] FLUBV RNA JACK+probe Ql (Resp) Not detected Not Detected [facility] This assay is an in vitro diagnostic multiplex nucleic acid amplification test for the detection and discrimination of Influenza A & B from nasopharyngeal specimens, and has been validated for use at [facility]. Negative results do not preclude Influenza A/B infections, and should not be used as the sole basis for diagnosis, treatment, or other management decisions. If Influenza A/B and RSV PCR results are negative, testing for Parainfluenza virus, Adenovirus and Metapneumovirus is routinely performed for [facility] pediatric oncology and intensive care inpatients, and is available on other patients by placing an add-on request. [facility] FLUAV RNA JACK+probe Ql (Resp) Not detected Normal Not Detected [facility] Comment on above: Order Comment: This assay is an in vitro diagnostic multiplex nucleic acid amplification test for the detection and discrimination of Influenza A & B from nasopharyngeal specimens, and has been validated for use at [facility]. Negative results do not preclude Influenza A/B infections, and should not be used as the sole basis for diagnosis, treatment, or other management decisions. If Influenza A/B and RSV PCR results are negative, testing for Parainfluenza virus, Adenovirus and Metapneumovirus is routinely performed for [facility] pediatric oncology and intensive care inpatients, and is available on other patients by placing an add-on request. Performed By: #### 4 8509-4 ####KING RAVEN ([id number])[facility] ([facility])[address] [place] [address] FLUBV RNA JACK+probe Ql (Resp) Not detected Normal Not Detected [facility] Comment on above: Order Comment: This assay is an in vitro diagnostic multiplex nucleic acid amplification test for the detection and discrimination of Influenza A & B from nasopharyngeal specimens, and has been validated for use at [facility]. Negative results do not preclude Influenza A/B infections, and should not be used as the sole basis for diagnosis, treatment, or other management decisions. If Influenza A/B and RSV PCR results are negative, testing for Parainfluenza virus, Adenovirus and Metapneumovirus is routinely performed for [facility] pediatric oncology and intensive care inpatients, and is available on other patients by placing an add-on request. Performed By: #### 4 8509-4 ####FERNANDO CARBAJAL ([id number])[facility] ([facility] [place] [address] No Panel Informationon 06-12 Interpretation and review of laboratory results Normal [facility] Interpretation and review of laboratory results Abnormal [facility] RSV PCRon 06-12-2023 RSV RNA JACK+probe Ql (Resp) Not detected Not Detected [facility] RSV RNA JACK+probe Ql (Resp)o n 06-12-2023 This assay is an FDA-cleared, in vitro diagnostic nucleic acid amplification test for the detection of RSV from nasopharyngeal specimens, and has been validated for use at [facility]. Negative results do not preclude RSV infections, and should not be used as the sole basis for diagnosis, treatment, or other management decisions. If Influenza A/B and RSV PCR results are negative, testing for Parainfluenza virus, Adenovirus and Metapneumovirus is routinely performed for pediatric oncology and intensive care inpatients at [facility], and is available on other patients by placing an add-on request. [facility] Respiratory syncytial virus RNAon 06-12-2023 RSV RNA JACK+probe Ql (Resp) Not detected Normal Not Detected [facility] Comment on above: Order Comment: This assay is an FDA-cleared, in vitro diagnostic nucleic acid amplification test for the detection of RSV from nasopharyngeal specimens, and has been validated for use at [facility]. Negative results do not preclude RSV infections, and should not be used as the sole basis for diagnosis, treatment, or other management decisions. If Influenza A/B and RSV PCR results are negative, testing for Parainfluenza virus, Adenovirus and Metapneumovirus is routinely performed for pediatric oncology and intensive care inpatients at [facility], and is available on other patients by placing an add-on request. Performed By: #### 9 2131-2 ####FERNANDO CARBAJAL ([id number])[facility] ([facility] [place] [address] SARS coronavirus 2 RNAon SARS-CoV-2 (COVID-19) RNA JACK+probe Ql (Resp) Not detected Normal Not Detected [facility] Comment on above: Order Comment: This assay has received FDA Emergency Use Authorization (EUA) and is only authorized for the duration of time that circumstances exist to justify the authorization of the emergency use of in vitro diagnostic tests for the detection of SARS-CoV-2 virus and/or diagnosis of COVID-19 infection under section 564(b)(1) of the Act, 21 U.S.C. 360bbb-3(b)(1). This assay is an in vitro diagnostic nucleic acid amplification test for the qualitative detection of SARS-CoV-2 from nasopharyngeal specimens and has been validated for use at [facility]. Negative results do not preclude COVID-19 infections and should not be used as the sole basis for diagnosis, treatment, or other management decisions. Performed By: #### 9 4500-6 ####KING RAVEN ([id number])[facility] ([facility])[address] [place] [address] SARS-CoV-2 (COVID-19) RNA NA A+probe Ql (Resp)on 06-12-2023 This assay has received FDA Emergency Use Authorization (EUA) and is only authorized for the duration of time that circumstances exist to justify the authorization of the emergency use of in vitro diagnostic tests for the detection of SARS-CoV-2 virus and/or diagnosis of COVID-19 infection under section 564(b)(1) of the Act, 21 U.S.C. 360bbb-3(b)(1). This assay is an in vitro diagnostic nucleic acid amplification test for the qualitative detection of SARS-CoV-2 from nasopharyngeal specimens and has been validated for use at [facility]. Negative results do not preclude COVID-19 infections and should not be used as the sole basis for diagnosis, treatment, or other management decisions. [facility] Sars-CoV-2 PCR, Screen Asymp tomaticon 06-12-2023 SARS-CoV-2 (COVID-19) RNA JACK+probe Ql (Resp) Not detected Not Detected [facility] Urinalysis complete W Reflex Culture panel (U)on 06-12-2023 Appearance (U) Hazy Abnormal Clear [facility] Bilirubin (U) [Mass/Vol] Negative NEGATIVE [facility] Color (U) Yellow Straw, Yellow [facility] Glucose Auto test strip (U) [Mass/Vol] Negative NEGATIVE mg/dL [facility] Ketones (U) [Mass/Vol] Negative NEGAT AUDI mg/dL [facility] Leukocyte esterase Auto test strip Ql (U) LARGE (3+) Abnormal NEGATIVE [facility] Nitrite Auto test strip Ql (U) Negative NEGATIVE [facility] pH (U) 7.0 [pH] 5.0, 5.5, 6.0, 6.5, 7.0, 7.5, 8.0 [facility] Protein (U) [Mass/Vol] >=500 (3+) Abnormal NEGAT AUDI mg/dL [facility] RBC (U) [#/Vol] SMALL (1+) Abnormal NEGATIVE [facility] Specific gravity (U) [Rel density] 1.012 1.005 - 1.035 [facility] Urobilinogen (U) [Mass/Vol] mg/dL NINF - 2.0 mg/dL [facility] Appearance (U) Hazy Normal Clear [facility] Comment on above: Performed By: #### 5 8077-9 ####FERNANDO CARBAJAL ([id number])[facility] ([facility])[address] [place] [address]78 Bilirubin (U) [Mass/Vol] Negative Normal NEGATIVE [facility] Comment on above: Performed By: #### 5 8077-9 ####FERNANDO CARBAJAL ([id number])[facility] ([facility])[address] [place] [address] Color (U) Yellow Normal Straw, Yellow [facility] Comment on above: Performed By: #### 5 8077-9 ####FERNANDO CARBAJAL ([id number])[facility] ([facility])[address] [place] [address] 92865 Glucose Auto test strip (U) [Mass/Vol] Negative Normal NEGATIVE [facility] Comment on above: Performed By: #### 5 8077-9 ####FERNANDO CARBAJAL ([id number])[facility] ([facility])[address] [place] [address] 20949 Ketones (U) [Mass/Vol] Negative Normal NEGATIVE [facility] Comment on above: Performed By: #### 5 8077-9 ####FERNANDO CARBAJAL ([id number])[facility] ([facility])[address] [place], [place] [address] Leukocyte esterase Auto test strip Ql (U) LARGE (3+) Abnormal NEGATIVE [facility] Comment on above: Performed By: #### 5 8077-9 ####FERNANDO CARBAJAL ([id number])[facility] ([facility])[address] [place] [address] Nitrite Auto test strip Ql (U) Negative Normal NEGATIVE [facility] Comment on above: Performed By: #### 5 8077-9 ####FERNANDO CARBAJAL ([id number])[facility] ([facility])[address] [place] [address] pH (U) 7.0 [pH] Normal 5.0, 5.5, 6.0, 6.5, 7.0, 7.5, 8.0 [facility] Comment on above: Performed By: #### 5 8077-9 ####FERNANDO CARBAJAL ([id number])[facility] ([facility])[address] [place] [address] 88495 Protein (U) [Mass/Vol] >=500 (3+) Normal NEGATIVE [facility] Comment on above: Performed By: #### 5 8077-9 ####FERNANDO CARBAJAL ([id number])[facility] ([facility])[address] [place] [address] 44848 RBC (U) [#/Vol] SMALL (1+) Abnormal NEGATIVE [facility] Comment on above: Performed By: #### 5 8077-9 ####FERNANDO CARBAJAL ([id number])[facility] ([facility])[address] [place] [address] 59291 Specific gravity (U) [Rel density] 1.012 Normal 1.005-1.035 [facility] Comment on above: Performed By: #### 5 8077-9 ####FERNANDO CARBAJAL ([id number])[facility] ([facility])[address] [place] [address] Urobilinogen (U) [Mass/Vol] mg/dL Normal <2.0 [facility] Comment on above: Performed By: #### 5 8077-9 ####FERNANDO CARBAJAL ([id number])[facility] ([facility])[address] [place] [address] Urinalysis microscopic panel Auto Ql (U)on 06-12-2023 Bacteria Auto (Urine sed) [#/Area] 1+ Abnormal NONE SEEN /HPF [facility] Leukocyte clumps Auto (Urine sed) [#/Area] MANY Reference range not established. /HPF [facility] RBC Auto (Urine sed) [#/Area] >20 Abnormal NONE, 1-2, 3-5 /HPF [facility] WBC Auto (Urine sed) [#/Area] >50 Abnormal 1-5, NONE /HPF [facility] Yeast.budding Computer assisted (U) [#/Area] PRESENT Abnormal NONE /HPF [facility] Bacteria Auto (Urine sed) [#/Area] 1+ /HPF Abnormal NONE SEEN [facility] Comment on above: Performed By: #### 5 3315-8 ####FERNANDO CARBAJAL ([id number])[facility] ([facility])[address] [place] [address] Leukocyte clumps Auto (Urine sed) [#/Area] MANY Normal Reference range not established. [facility] Comment on above: Performed By: #### 5 3315-8 ####FERNANDO CARBAJAL ([id number])[facility] ([facility])[address] [place] [address] RBC Auto (Urine sed) [#/Area] >20 Abnormal NONE, 1-2, 3-5 [facility] Comment on above: Performed By: #### 5 3315-8 ####FERNANDO CARBAJAL ([id number])[facility] ([facility])[address] [place] [address] WBC Auto (Urine sed) [#/Area] >50 Abnormal 1-5, NONE [facility] Comment on above: Performed By: #### 5 3315-8 ####FERNANDO CARBAJAL ([id number])[facility] ([facility])[address] [place] [address] Yeast.budding Computer assisted (U) [#/Area] PRESENT Abnormal NONE [facility] Comment on above: Performed By: #### 5 3315-8 ####FERNANDO CARBAJAL ([id number])[facility] ([facility])[address] [place] [address] Bacteria identifiedon 2022 Bacteria identified Cx Nom (U) Test: Urine Culture Specimen Source: Indwelling (Jamison) Catheter Specimen Type: Urine Specimen Date: 05/30/2023 4:46 PM Result Date: 06/03/2023 10:14 AM Result Status: Final result Abnormal: Yes Resulting Lab: [facility] [address] [place] [address] CULTURE >100,000 Pseudomonas aeruginosa (Abnormal) SUSCEPTIBILITY Pseudomonas aeruginosa METHOD MICROSCAN - AZTREONAM -- Susceptible CEFEPIME -- Susceptible CEFTAZIDIME -- Susceptible CIPROFLOXACIN -- Susceptible GENTAMICIN -- Susceptible PIPERACILLIN/TAZOBACTA M -- Susceptible TOBRAMYCIN -- Susceptible Abnormal [facility] Comment on above: Performed By: #### 2 4321-2 #### FERNANDO CARBAJAL ([id number]) [facility] ([facility]) [address] [place], [place] [phone] Bacteria identified Cx Nom (Bld) Test: Blood Culture Specimen Source: Peripheral Venipuncture Specimen Type: Blood culture Specimen Date: 05/30/2023 4:34 PM Result Date: 06/04/2023 4:01 AM Result Status: Final result Abnormal: No Resulting Lab: [facility] [address] [place] [address] CULTURE No growth at 4 days - FINAL REPORT Normal [facility] Comment on above: Performed By: #### 2 4321-2 #### KING RAVEN ([id number]) [facility] ([facility]) [address] [place] [address] Basic metabolic 2000 panelon 05-30-2023 Anion gap [Moles/Vol] 15 mmol/L 10 - 2 0 mmol/L [facility] Calcium [Mass/Vol] 9.1 mg/dL 8.6 - 10. 3 mg/dL [facility] Chloride [Moles/Vol] 95 mmol/L Low 98 - 10 7 mmol/L [facility] CO2 [Moles/Vol] 31 mmol/L 21 - 32 mmol/L [facility] Creatinine [Mass/Vol] 4.22 mg/dL High 0.50 - 1.30 mg/dL [facility] GFR/1.73 sq M.predicted MDRD (S/P/Bld) [Vol rate/Area] 14 mL/min/{1.73_m2} Low - PINF [facility] Comment on above: Calculations of alejandra mated GFR are performed using the 2020 CKD-EPI Study Refit equation without the race variable for the IDMS-Traceable creatinine methods. https://jasn.asnjournals.org/content//ASN.65779 73677 Glucose [Mass/Vol] 87 mg/dL 74 - 99 mg/dL [facility] Interpretation and review of laboratory results Abnormal [facility] Potassium [Moles/Vol] 3.9 mmol/L 3.5 - 5.3 mmol/L [facility] Sodium [Moles/Vol] 137 mmol/L 136 - 145 mmol/L [facility] Urea nitrogen [Mass/Vol] 51 mg/dL High 6 - 23 mg/dL [facility] Anion gap [Moles/Vol] 15 mmol/L Normal 10-20 [facility] Comment on above: Performed By: #### 2 4321-2 #### FERNANDO CARBAJAL ([id number]) [facility] ([facility]) [facility] [place] [address] Calcium [Mass/Vol] 9.1 mg/dL Normal 8.6-10.3 [facility] Comment on above: Performed By: #### 2 4321-2 #### FERNANDO CARBAJAL ([id number]) [facility] ([facility]) [facility] [place] [address] Chloride [Moles/Vol] 95 mmol/L Low 98-107 [facility] Comment on above: Performed By: #### 2 4321-2 #### FERNANDO CARBAJAL ([id number]) [facility] ([facility]) [address] [place] [address]24 CO2 [Moles/Vol] 31 mmol/L Normal 21-32 [facility] Comment on above: Performed By: #### 2 4321-2 #### FERNANDO CARBAJAL ([id number]) [facility] ([facility]) [address] [place] [address] 09887 Creatinine [Mass/Vol] 4.22 mg/dL High 0.50-1.30 [facility] Comment on above: Performed By: #### 2 4321-2 #### FERNANDO CARBAJAL ([id number]) [facility] ([facility]) [address] [place] [address]105 GFR/1.73 sq M.predicted MDRD (S/P/Bld) [Vol rate/Area] 14 mL/min/1.73m*2 Low >60 [facility] Comment on above: Result Comment: Calc ulations of estimated GFR are performed using the 2020 CKD-EPI Study Refit equation without the race variable for the IDMS-Traceable creatinine methods. https://jasn.asnjournals.org/content/early//ASN.89600 83780 Performed By: #### 2 4321-2 #### FERNANDO CARBAJAL ([id number]) [facility] ([facility]) [address] [place] [address]14 Glucose [Mass/Vol] 87 mg/dL Normal 74-99 [facility] Comment on above: Performed By: #### 2 4321-2 #### FERNANDO CARBAJAL ([id number]) [facility] ([facility]) [address] [place] [address] 60884 Potassium [Moles/Vol] 3.9 mmol/L Normal 3.5-5.3 [facility] Comment on above: Performed By: #### 2 4321-2 #### FERNANDO CARBAJAL ([id number]) [facility] ([facility]) [address] [place] [address] 12498 Sodium [Moles/Vol] 137 mmol/L Normal 136-145 [facility] Comment on above: Performed By: #### 2 4321-2 #### FERNANDO CARBAJAL ([id number]) [facility] ([facility]) [address] [place] [address] 88556 Urea nitrogen [Mass/Vol] 51 mg/dL High 6-23 [facility] Comment on above: Performed By: #### 2 4321-2 #### FERNANDO CARBAJAL ([id number]) [facility] ([facility]) [address] [place] [address] 57081 CBC W Auto Differential pane l (Bld)on 05-30-2023 Basophils (Bld) [#/Vol] 0.04 10*3/uL [facility] Basophils/100 WBC (Bld) 0.5 % 0.0 - 2.0 % [facility] Eosinophils (Bld) [#/Vol] 0.25 10*3/uL [facility] Eosinophils/100 WBC (Bld) 3.3 % 0.0 - 6.0 % [facility] Erythrocyte distribution width (RBC) [Ratio] 16.2 % High 11.5 - 14.5 % [facility] Hematocrit (Bld) [Volume fraction] 27.2 % Low 41.0 - 52.0 % [facility] Hemoglobin (Bld) [Mass/Vol] 8.3 g/dL Low 13.5 - 17.5 g/dL [facility] Immature granulocytes (Bld) [#/Vol] 0.03 10*3/uL [facility] Immature granulocytes/100 WBC (Bld) 0.4 % 0.0 - 0.9 % [facility] Comment on above: Immature Granulocyte Count (IG) includes promyelocytes, myelocytes and metamyelocytes but does not include bands. Percent differential counts (%) should be interpreted in the context of the absolute cell counts (cells/UL). Interpretation and review of laboratory results Abnormal [facility] Lymphocytes (Bld) [#/Vol] 1.82 10*3/uL [facility] Lymphocytes/100 WBC (Bld) 23.8 % 13.0 - 44.0 % [facility] MCH (RBC) [Entitic mass] 29.2 pg 26.0 - 34.0 pg [facility] MCHC (RBC) [Mass/Vol] 30.5 g/dL Low 32.0 - 36.0 g/dL [facility] MCV (RBC) [Entitic vol] 96 fL 80 - 100 fL [facility] Monocytes (Bld) [#/Vol] 0.63 10*3/uL [facility] Monocytes/100 WBC (Bld) 8.2 % 2.0 - 10.0 % [facility] Neutrophils (Bld) [#/Vol] 4.89 10*3/uL [facility] Comment on above: Percent differential counts (%) should be interpreted in the context of the absolute cell counts (cells/uL). Neutrophils/100 WBC (Bld) 63.8 % 40.0 - 80.0 % [facility] Nucleated RBC/100 WBC (Bld) [Ratio] 0.0 % [facility] Platelets (Bld) [#/Vol] 292 10*3/uL [facility] RBC (Bld) [#/Vol] 2.84 10*6/uL Low [facility] WBC (Bld) [#/Vol] 7.7 10*3/uL [facility] Basophils (Bld) [#/Vol] 0.04 x10*3/uL Normal 0.00-0.10 [facility] Comment on above: Performed By: #### 5 7021-8 #### FERNANDO CARBAJAL ([id number]) [facility] ([facility]) [address] [place] [address] 31943 Basophils/100 WBC (Bld) 0.5 % Normal 0.0-2.0 [facility] Comment on above: Performed By: #### 7021-8 #### FERNANDO CARBAJAL ([id number]) [facility] ([facility]) [address] [place] [address] 03602 Eosinophils (Bld) [#/Vol] 0.25 x10*3/uL Normal 0.00-0.40 [facility] Comment on above: Performed By: #### 7021-8 #### FERNANDO CARBAJAL ([id number]) [facility] ([facility]) [address] [place] [address] 78279 Eosinophils/100 WBC (Bld) 3.3 % Normal 0.0-6.0 [facility] Comment on above: Performed By: #### 7021-8 #### FERNANDO CARBAJAL ([id number]) [facility] ([facility]) [address] [place] [address] 68376 Erythrocyte distribution width (RBC) [Ratio] 16.2 % High 11.5-14.5 [facility] Comment on above: Performed By: #### 5 7021-8 #### FERNANDO CARBAJAL ([id number]) [facility] ([facility]) [address] [place] [address] 51859 Hematocrit (Bld) [Volume fraction] 27.2 % Low 41.0-52.0 [facility] Comment on above: Performed By: #### 7021-8 #### FERNANDO CARBAJAL ([id number]) [facility] ([facility]) [address] [place] [address] 86014 Hemoglobin (Bld) [Mass/Vol] 8.3 g/dL Low 13.5-17.5 [facility] Comment on above: Performed By: #### 5 7021-8 #### FERNANDO CARBAJAL ([id number]) [facility] ([facility]) [address] [place] [address] 77373 Immature granulocytes (Bld) [#/Vol] 0.03 x10*3/uL Normal 0.00-0.50 [facility] Comment on above: Performed By: #### 5 7021-8 #### FERNANDO CARBAJAL ([id number]) [facility] ([facility]) [address] [place] [address] 02764 Immature granulocytes/100 WBC (Bld) 0.4 % Normal 0.0-0.9 [facility] Comment on above: Result Comment: [place] t[place] Granulocyte Count (IG) includes promyelocytes, myelocytes and metamyelocytes but does not include bands. Percent differential counts (%) should be interpreted in the context of the absolute cell counts (cells/UL). Performed By: #### 5 7021-8 #### FERNANDO CARBAJAL ([id number]) [facility] ([facility]) [address] [place] [address] 84331 Lymphocytes (Bld) [#/Vol] 1.82 x10*3/uL Normal 0.80-3.00 [facility] Comment on above: Performed By: #### 5 7021-8 #### FERNANDO CARBAJAL ([id number]) [facility] ([facility]) [address] [place] [address] 38274 Lymphocytes/100 WBC (Bld) 23.8 % Normal 13.0-44.0 [facility] Comment on above: Performed By: #### 5 7021-8 #### FERNANDO CARBAJAL ([id number]) [facility] ([facility]) [address] [place] [address] 73044 MCH (RBC) [Entitic mass] 29.2 pg Normal 26.0-34.0 [facility] Comment on above: Performed By: #### 5 7021-8 #### FERNANDO CARBAJAL ([id number]) [facility] ([facility]) [address] [place] [address] 69452 MCHC (RBC) [Mass/Vol] 30.5 g/dL Low 32.0-36.0 [facility] Comment on above: Performed By: #### 5 7021-8 #### FERNANDO CARBAJAL ([id number]) [facility] ([facility]) [address] [place] [address] 87421 MCV (RBC) [Entitic vol] 96 fL Normal 80-100 [facility] Comment on above: Performed By: #### 5 7021-8 #### FERNANDO CARBAJAL ([id number]) [facility] ([facility]) [address] [place] [address] 66648 Monocytes (Bld) [#/Vol] 0.63 x10*3/uL Normal 0.05-0.80 [facility] Comment on above: Performed By: #### 5 7021-8 #### FERNANDO CARBAJAL ([id number]) [facility] ([facility]) [address] [place] [address] 04545 Monocytes/100 WBC (Bld) 8.2 % Normal 2.0-10.0 [facility] Comment on above: Performed By: #### 5 7021-8 #### FERNANDO CARBAJAL ([id number]) [facility] ([facility]) [address] [place] [address] 50728 Neutrophils (Bld) [#/Vol] 4.89 x10*3/uL Normal 1.60-5.50 [facility] Comment on above: Result Comment: Perc ent differential counts (%) should be interpreted in the context of the absolute cell counts (cells/uL). Performed By: #### 5 7021-8 #### FERNANDO CARBAJAL ([id number]) [facility] ([facility]) [address] [place] [address] 91341 Neutrophils/100 WBC (Bld) 63.8 % Normal 40.0-80.0 [facility] Comment on above: Performed By: #### 5 7021-8 #### FERNANDO CARBAJAL ([id number]) [facility] ([facility]) [address] [place] [address] 65341 Nucleated RBC/100 WBC (Bld) [Ratio] 0.0 /100 WBCs Normal 0.0-0.0 [facility] Comment on above: Performed By: #### 5 7021-8 #### FERNANDO CARBAJAL ([id number]) [facility] ([facility]) [address] [place] [address] Platelets (Bld) [#/Vol] 292 x10*3/uL Normal 150-450 [facility] Comment on above: Performed By: #### 5 7021-8 #### FERNANDO CARBAJAL ([id number]) [facility] ([facility]) [facility] [place] [address] RBC (Bld) [#/Vol] 2.84 x10*6/uL Low 4.50-5.90 [facility] Comment on above: Performed By: #### 5 7021-8 #### FERNANDO CARBAJAL ([id number]) [facility] ([facility]) [address] [place] [address] WBC (Bld) [#/Vol] 7.7 x10*3/uL Normal 4.4-11.3 [facility] Comment on above: Performed By: #### 5 7021-8 #### FERNANDO CARBAJAL ([id number]) [facility] ([facility]) [address] [place] [address] CT HEAD WO IV CONTRASTon CT HEAD WO IV CONTRAST Interpreted By: Angel Larkin, STUDY: CT HEAD WO IV CONTRAST; 05/30/2023 4:19 pm INDICATION: Signs/Symptoms:DIZZINE SS. COMPARISON: None. ACCESSION NUMBER(S): [id number] ORDERING CLINICIAN: JOHN POWELL TECHNIQUE: Noncontrast axial CT scan of head was performed. Angled reformats in brain and bone windows were generated. The images were reviewed in bone, brain, blood and soft tissue windows. FINDINGS: There is no intra/extra-axial fluid collection, mass effect, or midline shift. The khan/white matter junction is preserved. Hypoattenuation of periventricular and subcortical white matter suggestive of chronic small vessel ischemic disease. Ynxe-rq-hjtgdbqy diffuse parenchymal volume loss is noted. There is vascular calcification. The basal cisterns are patent. Mild mucoperiosteal thickening of the left sphenoid sinus and left ethmoid air cells is seen.. The calvarium is intact. IMPRESSION: No acute intracranial finding. MRI may be obtained if clinically indicated Signed by: Angel Larkin 05/30/2023 4:26 PM Dictation workstation: [id number] [facility] CT Head WO contraston 2022 No acute intracrania l finding. MRI may be obtained if clinically indicated Signed by: Angel Larkin 05/30/2023 4:26 PM Dictation workstation: [id number] Interpreted By: Angel Larkin, STUDY: CT HEAD WO IV CONTRAST; 05/30/2023 4:19 pm INDICATION: Signs/Symptoms:DIZZINE SS. COMPARISON: None. ACCESSION NUMBER(S): [id number] ORDERING CLINICIAN: JOHN POWELL TECHNIQUE: Noncontrast axial CT scan of head was performed. Angled reformats in brain and bone windows were generated. The images were reviewed in bone, brain, blood and soft tissue windows. FINDINGS: There is no intra/extra-axial fluid collection, mass effect, or midline shift. The khan/white matter junction is preserved. Hypoattenuation of periventricular and subcortical white matter suggestive of chronic small vessel ischemic disease. Thip-dd-rwuridzk diffuse parenchymal volume loss is noted. There is vascular calcification. The basal cisterns are patent. Mild mucoperiosteal thickening of the left sphenoid sinus and left ethmoid air cells is seen.. The calvarium is intact. MMODAL Angel Larkin MD - 05/30/2023 Interpreted By: Angel Larkin, STUDY: CT HEAD WO IV CONTRAST; 05/30/2023 4:19 pm INDICATION: Signs/Symptoms:DIZZINE SS. COMPARISON: None. ACCESSION NUMBER(S): [id number] ORDERING CLINICIAN: JOHN POWELL TECHNIQUE: Noncontrast axial CT scan of head was performed. Angled reformats in brain and bone windows were generated. The images were reviewed in bone, brain, blood and soft tissue windows. FINDINGS: There is no intra/extra-axial fluid collection, mass effect, or midline shift. The khan/white matter junction is preserved. Hypoattenuation of periventricular and subcortical white matter suggestive of chronic small vessel ischemic disease. Iuoq-lp-qtxfksdu diffuse parenchymal volume loss is noted. There is vascular calcification. The basal cisterns are patent. Mild mucoperiosteal thickening of the left sphenoid sinus and left ethmoid air cells is seen.. The calvarium is intact. IMPRESSION: No acute intracranial finding. MRI may be obtained if clinically indicated Signed by: Angel Larkin 05/30/2023 4:26 PM Dictation workstation: [id number] [facility] Work Phone: Radiology Study observation (narrative) [facility] Work Phone: CT Head WO contrastOrdered B y: Angel Larkin on 05-30-2023 [facility] Work Phone: ECG 12-LEADon 05-30-2023 ECG 12-LEAD Ventricular Rate 75 Atrial Rate 75 P-R Interval 208 QRS Duration 88 Q-T Interval 374 QTC Calculation(Bazett) 417 P Rosedale 20 R Rosedale 42 T Rosedale 36 QRS Count 13 Q Onset 219 P Onset 115 P Offset 169 T Offset 406 QTC Fredericia 402 Diagnosis Normal sinus rhythm Inferior infarct , age undetermined Abnormal ECG No previous ECGs available See ED provider note for full interpretation and clinical correlation Confirmed by Maite Manuel ([id number]) on 06/11/2023 4:29:49 PM Normal [facility] FLUAV and FLUBV RNA JACK+prob e Nom (Unsp spec)on 05-30-2023 FLUAV RNA JACK+probe Ql (Resp) Not detected Not Detected [facility] FLUBV RNA JACK+probe Ql (Resp) Not detected Not Detected [facility] This assay is an in vitro diagnostic multiplex nucleic acid amplification test for the detection and discrimination of Influenza A & B from nasopharyngeal specimens, and has been validated for use at [facility]. Negative results do not preclude Influenza A/B infections, and should not be used as the sole basis for diagnosis, treatment, or other management decisions. If Influenza A/B and RSV PCR results are negative, testing for Parainfluenza virus, Adenovirus and Metapneumovirus is routinely performed for [facility] pediatric oncology and intensive care inpatients, and is available on other patients by placing an add-on request. [facility] FLUAV RNA JACK+probe Ql (Resp) Not detected Normal Not Detected [facility] Comment on above: Order Comment: This assay is an in vitro diagnostic multiplex nucleic acid amplification test for the detection and discrimination of Influenza A & B from nasopharyngeal specimens, and has been validated for use at [facility]. Negative results do not preclude Influenza A/B infections, and should not be used as the sole basis for diagnosis, treatment, or other management decisions. If Influenza A/B and RSV PCR results are negative, testing for Parainfluenza virus, Adenovirus and Metapneumovirus is routinely performed for [facility] pediatric oncology and intensive care inpatients, and is available on other patients by placing an add-on request. Performed By: #### 2 4321-2 #### FERNANDO CARBAJAL ([id number]) [facility] ([facility]) [address] [place] [address] FLUBV RNA JACK+probe Ql (Resp) Not detected Normal Not Detected [facility] Comment on above: Order Comment: This assay is an in vitro diagnostic multiplex nucleic acid amplification test for the detection and discrimination of Influenza A & B from nasopharyngeal specimens, and has been validated for use at [facility]. Negative results do not preclude Influenza A/B infections, and should not be used as the sole basis for diagnosis, treatment, or other management decisions. If Influenza A/B and RSV PCR results are negative, testing for Parainfluenza virus, Adenovirus and Metapneumovirus is routinely performed for [facility] pediatric oncology and intensive care inpatients, and is available on other patients by placing an add-on request. Performed By: #### 2 4321-2 #### FERNANDO CARBAJAL ([id number]) [facility] ([facility]) [address] [place] [address] Hepatic function 2000 panelo n 05-30-2023 Albumin BCP dye [Mass/Vol] 3.4 g/dL 3.4 - 5.0 g/dL [facility] ALP [Catalytic activity/Vol] 78 U/L 33 - 136 U/L [facility] ALT With P-5'-P [Catalytic activity/Vol] 6 U/L Low 10 - 52 U/L [facility] Comment on above: Patients treated wit h Sulfasalazine may generate falsely decreased results for ALT. AST With P-5'-P [Catalytic activity/Vol] 7 U/L Low 9 - 39 U/L [facility] Bilirubin [Mass/Vol] 0.3 mg/dL 0.0 - 1 .2 mg/dL [facility] Bilirubin.direct [Mass/Vol] 0.1 mg/dL 0.0 - 0.3 mg/dL [facility] Interpretation and review of laboratory results Abnormal [facility] Protein [Mass/Vol] 7.3 g/dL 6.4 - 8.2 g/dL [facility] Albumin BCP dye [Mass/Vol] 3.4 g/dL Normal 3.4-5.0 [facility] Comment on above: Performed By: #### 2 4321-2 #### FERNANDO CARBAJAL ([id number]) [facility] ([facility]) [address] [place] [address] ALP [Catalytic activity/Vol] 78 U/L Normal 33-136 [facility] Comment on above: Performed By: #### 2 4321-2 #### FERNANDO CARBAJAL ([id number]) [facility] ([facility]) [address] [place] [address] 68713 ALT With P-5'-P [Catalytic activity/Vol] 6 U/L Low 10-52 [facility] Comment on above: Result Comment: Rhea ents treated with Sulfasalazine may generate falsely decreased results for ALT. Performed By: #### 2 4321-2 #### FERNANDO CARBAJAL ([id number]) [facility] ([facility]) [address] [place] [address] 09530 AST With P-5'-P [Catalytic activity/Vol] 7 U/L Low 9-39 [facility] Comment on above: Performed By: #### 2 4321-2 #### FERNANDO CARBAJAL ([id number]) [facility] ([facility]) [address] [place] [address] 36031 Bilirubin [Mass/Vol] 0.3 mg/dL Normal 0.0-1.2 [facility] Comment on above: Performed By: #### 2 4321-2 #### FERNANDO CARBAJAL ([id number]) [facility] ([facility]) [address] [place] [address] 60676 Bilirubin.direct [Mass/Vol] 0.1 mg/dL Normal 0.0-0.3 [facility] Comment on above: Performed By: #### 2 4321-2 #### FERNANDO CARBAJAL ([id number]) [facility] ([facility]) [address] [place] [address] Protein [Mass/Vol] 7.3 g/dL Normal 6.4-8.2 [facility] Comment on above: Performed By: #### 2 4321-2 #### FERNANDO CARBAJAL ([id number]) [facility] ([facility]) [address] [place] [address] 80210 Lactateon 05-30-2023 Lactate [Moles/Vol] 0.9 mmol/L 0.4 - 2. 0 mmol/L [facility] Lactate [Moles/Vol] 0.9 mmol/L Normal 0.4-2.0 [facility] Comment on above: Order Comment: Venip uncture immediately after or during the administration of Metamizole may lead to falsely low results. Testing should be performed immediatelyprior to Metamizole dosing. Performed By: #### 2 4321-2 #### FERNANDO CARBAJAL ([id number]) [facility] ([facility]) [address] [place] [address] 78236 Lactate [Moles/Vol] 2.1 mmol/L High 0.4 - 2. 0 mmol/L [facility] Lactate [Moles/Vol] 2.1 mmol/L High 0.4-2.0 [facility] Comment on above: Order Comment: Venip uncture immediately after or during the administration of Metamizole may lead to falsely low results. Testing should be performed immediately prior to Metamizole dosing. Performed By: #### 2 524-7 #### FERNANDO CARBAJAL ([id number]) [facility] ([facility]) [address] [place] [address] 17837 Lactate [Moles/Vol]on 2022 Interpretation and review of laboratory results Normal [facility] Venipuncture immediately after or during the administration of Metamizole may lead to falsely low results. Testing should be performed immediately prior to Metamizole dosing. [facility] Interpretation and review of laboratory results Abnormal [facility] Venipuncture immediately after or during the administration of Metamizole may lead to falsely low results. Testing should be performed immediately prior to Metamizole dosing. [facility] Light Blue Topon 05-30-2023 Extra Tube Hold for add-ons. [facility] Comment on above: Auto resulted. [facility] Lipaseon 05-30-2023 Lipase [Catalytic activity/Vol] 59 U/L 9 - 82 U/L [facility] Lipase [Catalytic activity/V ol]on 05-30-2023 Interpretation and review of laboratory results Normal [facility] Venipuncture immediately after or during the administration of Metamizole may lead to falsely low results. Testing should be performed immediately prior to Metamizole dosing. [facility] Magnesiumon 05-30-2023 Magnesium [Mass/Vol] 2.08 mg/dL 1.60 - 2.40 mg/dL [facility] Magnesium [Mass/Vol] 2.08 mg/dL Normal 1.60-2.40 [facility] Comment on above: Performed By: #### 1 9123-9 #### KING RAVEN ([id number]) [facility] ([facility]) [address] [place] [address] Magnesium [Mass/Vol]on 05-30 Interpretation and review of laboratory results Normal [facility] Natriuretic peptide B [Mass/ Vol]on 05-30-2023 Interpretation and review of laboratory results Normal [facility] Natriuretic peptide B (Bld) [Mass/Vol] 97 pg/mL 0 - 99 pg/mL [facility] <100 pg/mL - Heart failure unlikely 100-299 pg/mL - Intermediate probability of acute heart failure exacerbation. Correlate with clinical context and patient history. >=300 pg/mL - Heart Failure likely. Correlate with clinical context and patient history. BNP testing is performed using different testing methodology at [facility] than at other [facility]. Direct result comparisons should only be made within the same method. [facility] Natriuretic peptide B (Bld) [Mass/Vol] 97 pg/mL Normal 0-99 [facility] Comment on above: Order Comment: <100 pg/mL - Heart failure urxejtmg787-212 pg/mL - Intermediate probability of acute heart failure exacerbation. Correlate with clinical context and patient history. >=300 pg/mL - Heart Failure likely. Correlate with clinical context and patient history.BNP testing is performed using different testing methodology at [facility] than at [facility]. Direct result comparisons should only be made within the same method. Performed By: #### 2 4321-2 #### FERNANDO CARBAJAL ([id number]) [facility] ([facility]) [facility] [place] [address] No Panel Informationon 05-30 Interpretation and review of laboratory results Normal [facility] Interpretation and review of laboratory results Abnormal [facility] SARS coronavirus 2 RNAon SARS-CoV-2 (COVID-19) RNA JACK+probe Ql (Resp) Not detected Normal Not Detected [facility] Comment on above: Order Comment: This assay has received FDA Emergency Use Authorization (EUA) and is only authorized for the duration of time that circumstances exist to justify the authorization of the emergency use of in vitro diagnostic tests for the detection of SARS-CoV-2 virus and/or diagnosis of COVID-19 infection under section 564(b)(1) of the Act, 21 U.S.C. 360bbb-3(b)(1). This assay is an in vitro diagnostic nucleic acid amplification test for the qualitative detection of SARS-CoV-2 from nasopharyngeal specimens and has been validated for use at [facility]. Negative results do not preclude COVID-19 infections and should not be used as the sole basis for diagnosis, treatment, or other management decisions. Performed By: #### 2 4321-2 #### FERNANDO CARBAJAL ([id number]) [facility] ([facility]) [facility] [place] [address] SARS-CoV-2 (COVID-19) RNA NA A+probe Ql (Resp)on 05-30-2023 This assay has received FDA Emergency Use Authorization (EUA) and is only authorized for the duration of time that circumstances exist to justify the authorization of the emergency use of in vitro diagnostic tests for the detection of SARS-CoV-2 virus and/or diagnosis of COVID-19 infection under section 564(b)(1) of the Act, 21 U.S.C. 360bbb-3(b)(1). This assay is an in vitro diagnostic nucleic acid amplification test for the qualitative detection of SARS-CoV-2 from nasopharyngeal specimens and has been validated for use at [facility]. Negative results do not preclude COVID-19 infections and should not be used as the sole basis for diagnosis, treatment, or other management decisions. [facility] SARS-CoV-2 RT PCRon 05-30-20 23 SARS-CoV-2 (COVID-19) RNA JACK+probe Ql (Resp) Not detected Not Detected [facility] Triacylglycerol lipaseon Lipase [Catalytic activity/Vol] 59 U/L Normal 9-82 [facility] Comment on above: Order Comment: Venip uncture immediately after or during the administration of Metamizole may lead to falsely low results. Testing should be performed immediately prior to Metamizole dosing. Performed By: #### 2 4321-2 #### KING RAVEN ([id number]) [facility] ([facility]) [address] [place] [address] Tropinin I.cardiac panel Hig h sensitivity methodon 05-30-2023 Interpretation and review of laboratory results Normal [facility] Less than 99th percentile of normal range cutoff- Female and children under 18 years old <14 ng/L; Male <21 ng/L: Negative Repeat testing should be performed if clinically indicated. Female and children under 18 years old 14-50 ng/L; Male 21-50 ng/L: Consistent with possible cardiac damage and possible increased clinical risk. Serial measurements may help to assess extent of myocardial damage. >50 ng/L: Consistent with cardiac damage, increased clinical risk and myocardial infarction. Serial measurements may help assess extent of myocardial damage. NOTE: Children less than 1 year old may have higher baseline troponin levels and results should be interpreted in conjunction with the overall clinical context. NOTE: Troponin I testing is performed using a different testing methodology at [facility] than at other [facility]. Direct result comparisons should only be made within the same method. [facility] Troponin I, High Sensitivity on 05-30-2023 Tropinin I.cardiac panel High sensitivity method 7 ng/L 0 - 20 ng/L [facility] Troponin I.cardiac panelon 1 Tropinin I.cardiac panel High sensitivity method 7 ng/L Normal 0-20 [facility] Comment on above: Order Comment: Less than 99th percentile of normal range cutoff-Female and children under 18 years old <14 ng/L; Male <21 ng/L: NegativeRepeat testing should be performed if clinically indicated.Female and children under 18 years old 14-50 ng/L; Male 21-50 ng/L:Consistent with possible cardiac damage and possible increased clinicalrisk. Serial measurements may help to assess extent of myocardial damage.>50 ng/L: Consistent with cardiac damage, increased clinical risk andmyocardial infarction. Serial measurements may help assess extent ofmyocardial damage.NOTE: Children less than 1 year old may have higher baseline troponinlevels and results should be interpreted in conjunction with the overallclinical context.NOTE: Troponin I testing is performed using a differenttesting methodology at [facility] than at [facility]. Direct result comparisons should onlybe made within the same method. Performed By: #### 2 4321-2 #### KING RAVEN ([id number]) [facility] ([facility]) [address] [place] [address] Urinalysis complete W Reflex Culture panel (U)on 05-30-2023 Appearance (U) Hazy Abnormal Clear [facility] Bilirubin (U) [Mass/Vol] Negative NEGATIVE [facility] Color (U) Yellow Straw, Yellow [facility] Glucose Auto test strip (U) [Mass/Vol] Negative NEGATIVE mg/dL [facility] Ketones (U) [Mass/Vol] Negative NEGAT AUDI mg/dL [facility] Leukocyte esterase Auto test strip Ql (U) MODERATE (2+) Abnormal NEGATIVE [facility] Nitrite Auto test strip Ql (U) Negative NEGATIVE [facility] pH (U) 7.0 [pH] 5.0, 5.5, 6.0, 6.5, 7.0, 7.5, 8.0 [facility] Protein (U) [Mass/Vol] >=500 (3+) Abnormal NEGAT AUDI mg/dL [facility] RBC (U) [#/Vol] SMALL (1+) Abnormal NEGATIVE [facility] Specific gravity (U) [Rel density] 1.014 1.005 - 1.035 [facility] Urobilinogen (U) [Mass/Vol] mg/dL NINF - 2.0 mg/dL [facility] Appearance (U) Hazy Normal Clear [facility] Comment on above: Performed By: #### 5 8077-9 #### FERNANDO CARBAJAL ([id number]) [facility] ([facility]) [address] [place], [place] [address] Bilirubin (U) [Mass/Vol] Negative Normal NEGATIVE [facility] Comment on above: Performed By: #### 5 8077-9 #### FERNANDO CARBAJAL ([id number]) [facility] ([facility]) [address] [place] [address] Color (U) Yellow Normal Straw, Yellow [facility] Comment on above: Performed By: #### 5 8077-9 #### FERNANDO CARBAJAL ([id number]) [facility] ([facility]) [address] [place] [address] Glucose Auto test strip (U) [Mass/Vol] Negative Normal NEGATIVE [facility] Comment on above: Performed By: #### 5 8077-9 #### FERNANDO CARBAJAL ([id number]) [facility] ([facility]) [address] [place] [address] Ketones (U) [Mass/Vol] Negative Normal [facility] on above: Performed By: #### 5 8077-9 #### FERNANDO CARBAJAL ([id number]) [facility] ([facility]) [address] [place] [address] Leukocyte esterase Auto test strip Ql (U) MODERATE (2+) Abnormal NEGATIVE [facility] Comment on above: Performed By: #### 5 8077-9 #### FERNANDO CARBAJAL ([id number]) [facility] ([facility]) [address] [place] [phone] Nitrite Auto test strip Ql (U) Negative Normal NEGATIVE [facility] Comment on above: Performed By: #### 5 8077-9 #### FERNANDO CARBAJAL ([id number]) [facility] ([facility]) [address] [place] [address] 037[address] pH (U) 7.0 [pH] Normal 5.0, 5.5, 6.0, 6.5, 7.0, 7.5, 8.0 [facility] Comment on above: Performed By: #### 5 8077-9 #### FERNANDO CARBAJAL ([id number]) [facility] ([facility]) [address] [place] [address] Protein (U) [Mass/Vol] >=500 (3+) Normal NEGATIVE [facility] Comment on above: Performed By: #### 5 8077-9 #### FERNANDO CARBAJAL ([id number]) [facility] ([facility]) [address] [place] [address] 08763 RBC (U) [#/Vol] SMALL (1+) Abnormal NEGATIVE [facility] Comment on above: Performed By: #### 5 8077-9 #### FERNANDO CARBAJAL ([id number]) [facility] ([facility]) [address] [place] [address] 38869 Specific gravity (U) [Rel density] 1.014 Normal 1.005-1.035 [facility] Comment on above: Performed By: #### 5 8077-9 #### FERNANDO CARBAJAL ([id number]) [facility] ([facility]) [address] [place] [address] 88128 Urobilinogen (U) [Mass/Vol] mg/dL Normal <2.0 [facility] Comment on above: Performed By: #### 5 8077-9 #### FERNANDO CARBAJAL ([id number]) [facility] ([facility]) [address] [place] [address] 20254 Urinalysis microscopic panel Auto Ql (U)on 05-30-2023 Bacteria Auto (Urine sed) [#/Area] 3+ Abnormal NONE SEEN /HPF [facility] Leukocyte clumps Auto (Urine sed) [#/Area] MANY Reference range not established. /HPF [facility] RBC Auto (Urine sed) [#/Area] >20 Abnormal NONE, 1-2, 3-5 /HPF [facility] WBC Auto (Urine sed) [#/Area] >50 Abnormal 1-5, NONE /HPF [facility] Bacteria Auto (Urine sed) [#/Area] 3+ /HPF Abnormal NONE SEEN [facility] Comment on above: Performed By: #### 5 3315-8 #### FERNANDO CARBAJAL ([id number]) [facility] ([facility]) [address] [place] [address] 28524 Leukocyte clumps Auto (Urine sed) [#/Area] MANY Normal Reference range not established. [facility] Comment on above: Performed By: #### 5 3315-8 #### FERNANDO CARBAJAL ([id number]) [facility] ([facility]) [address] [place] [address] 81432 RBC Auto (Urine sed) [#/Area] >20 Abnormal NONE, 1-2, 3-5 [facility] Comment on above: Performed By: #### 5 3315-8 #### FERNANDO CARBAJAL ([id number]) [facility] ([facility]) [address] [place] [address] 18131 WBC Auto (Urine sed) [#/Area] >50 Abnormal 1-5, NONE [facility] Comment on above: Performed By: #### 5 3315-8 #### FERNANDO CARBAJAL ([id number]) [facility] ([facility]) [address] [place] [address] [phone] XR CHEST 1 VIEWon 05-30-2023 XR CHEST 1 VIEW STUDY: Chest Radiograph; 05/30/2023, 4:11 PM INDICATION: Shortness of breath. COMPARISON: 03/31/2023 XR Chest ACCESSION NUMBER(S): [id number] ORDERING CLINICIAN: JHON POWELL TECHNIQUE: Frontal chest (two images) was obtained at 16:10 hours. FINDINGS: CARDIOMEDIASTINAL SILHOUETTE: There is a right internal jugular central venous catheter with tip located at the level of the right atrium. Heart size is enlarged and appears similar to prior study with prominence of the aortic arch. LUNGS: There is left basilar opacity and elevation of the left hemidiaphragm with probable left pleural effusion. Appearance is similar to prior study. Lungs demonstrate chronic changes without pneumothorax. ABDOMEN: No remarkable upper abdominal findings. BONES: No acute osseous changes. IMPRESSION: Right internal jugular central venous catheter demonstrates tip at the level of the right atrium. Left basilar opacity and left pleural effusion. Please correlate for pneumonia. Cardiomegaly and emphysematous changes. No pneumothorax. Signed by Calvin Bauman DO [facility] XR Chest Single viewon 05-30 Right internal jugul ar central venous catheter demonstrates tip at the level of the right atrium. Left basilar opacity and left pleural effusion. Please correlate for pneumonia. Cardiomegaly and emphysematous changes. No pneumothorax. Signed by Calvin Bauman DO TELERADIOLOGY STUDY: Chest Radiograph; 05/30/2023, 4:11 PM INDICATION: Shortness of breath. COMPARISON: 03/31/2023 XR Chest ACCESSION NUMBER(S): [id number] ORDERING CLINICIAN: JOHN POWELL TECHNIQUE: Frontal chest (two images) was obtained at 16:10 hours. FINDINGS: CARDIOMEDIASTINAL SILHOUETTE: There is a right internal jugular central venous catheter with tip located at the level of the right atrium. Heart size is enlarged and appears similar to prior study with prominence of the aortic arch. LUNGS: There is left basilar opacity and elevation of the left hemidiaphragm with probable left pleural effusion. Appearance is similar to prior study. Lungs demonstrate chronic changes without pneumothorax. ABDOMEN: No remarkable upper abdominal findings. BONES: No acute osseous changes. TELERADIOLOGY Calvin Bauman DO - 05/30/2023 STUDY: Chest Radiograph; 05/30/2023, 4:11 PM INDICATION: Shortness of breath. COMPARISON: 03/31/2023 XR Chest ACCESSION NUMBER(S): [id number] ORDERING CLINICIAN: JOHN POWELL TECHNIQUE: Frontal chest (two images) was obtained at 16:10 hours. FINDINGS: CARDIOMEDIASTINAL SILHOUETTE: There is a right internal jugular central venous catheter with tip located at the level of the right atrium. Heart size is enlarged and appears similar to prior study with prominence of the aortic arch. LUNGS: There is left basilar opacity and elevation of the left hemidiaphragm with probable left pleural effusion. Appearance is similar to prior study. Lungs demonstrate chronic changes without pneumothorax. ABDOMEN: No remarkable upper abdominal findings. BONES: No acute osseous changes. IMPRESSION: Right internal jugular central venous catheter demonstrates tip at the level of the right atrium. Left basilar opacity and left pleural effusion. Please correlate for pneumonia. Cardiomegaly and emphysematous changes. No pneumothorax. Signed by Calvin Bauman, [facility] Work Phone: Radiology Study observation (narrative) [facility] Work Phone: XR Chest Single viewOrdered By: Calvin Bauman on 05-30-2023 [facility] Work Phone: Basic metabolic 2000 panelon 05-23-2023 Anion gap [Moles/Vol] 14 mmol/L Normal 10-20 [facility] Comment on above: Performed By: #### 2 4321-2 #### FERNANDO CARBAJAL ([id number]) [facility] ([facility]) [address] [place] [address] 56105 Calcium [Mass/Vol] 8.5 mg/dL Low 8.6-10.3 [facility] Comment on above: Performed By: #### 2 4321-2 #### FERNANDO CARBAJAL ([id number]) [facility] ([facility]) [facility] [place] [address] Chloride [Moles/Vol] 93 mmol/L Low 98-107 [facility] Comment on above: Performed By: #### 2 4321-2 #### FERNANDO CARBAJAL ([id number]) [facility] ([facility]) [address] [place] [address] 75980 CO2 [Moles/Vol] 31 mmol/L Normal 21-32 [facility] Comment on above: Performed By: #### 2 4321-2 #### FERNANDO CARBAJAL ([id number]) [facility] ([facility]) [address] [place] [address] Creatinine [Mass/Vol] 3.58 mg/dL High 0.50-1.30 [facility] Comment on above: Performed By: #### 2 4321-2 #### FERNANDO CARBAJAL ([id number]) [facility] ([facility]) [address] [place] [address] GFR/1.73 sq M.predicted MDRD (S/P/Bld) [Vol rate/Area] 17 mL/min/1.73m*2 Low >60 [facility] Comment on above: Result Comment: Calc ulations of estimated GFR are performed using the 2020 CKD-EPI Study Refit equation without the race variable for the IDMS-Traceable creatinine methods. https://jasn.asnjournals.org/content/early/ASN.61998 54343 Performed By: #### 2 4321-2 #### FERNANDO CARBAJAL ([id number]) [facility] ([facility]) [facility] [place] [address] Glucose [Mass/Vol] 91 mg/dL Normal 74-99 [facility] Comment on above: Performed By: #### 2 4321-2 #### FERNANDO CARBAJAL ([id number]) [facility] ([facility]) [address] [place] [address] Potassium [Moles/Vol] 3.7 mmol/L Normal 3.5-5.3 [facility] Comment on above: Performed By: #### 2 4321-2 #### FERNANDO CARBAJAL ([id number]) [facility] ([facility]) [facility] [place] [address] Sodium [Moles/Vol] 134 mmol/L Low 136-145 [facility] Comment on above: Performed By: #### 2 4321-2 #### FERNANDO CARBAJAL ([id number]) [facility] ([facility]) [address] [place] [address] Urea nitrogen [Mass/Vol] 37 mg/dL High 6-23 [facility] Comment on above: Performed By: #### 2 4321-2 #### FERNANDO CARBAJAL ([id number]) [facility] ([facility]) [address] [place] [address] CBC panel Auto (Bld)on 05-23 Erythrocyte distribution width (RBC) [Ratio] 15.7 % High 11.5-14.5 [facility] Comment on above: Performed By: #### 5 8410-2 #### FERNANDO CARBAJAL ([id number]) [facility] ([facility]) [address] [place] [address] Hematocrit (Bld) [Volume fraction] 25.8 % Low 41.0-52.0 [facility] Comment on above: Performed By: #### 5 8410-2 #### FERNANDO CARBAJAL ([id number]) [facility] ([facility]) [address] [place] [address] Hemoglobin (Bld) [Mass/Vol] 8.0 g/dL Low 13.5-17.5 [facility] Comment on above: Performed By: #### 5 8410-2 #### FERNANDO CARBAJAL ([id number]) [facility] ([facility]) [address] [place], [place] [id number] MCH (RBC) [Entitic mass] 29.1 pg Normal 26.0-34.0 [facility] Comment on above: Performed By: #### 5 8410-2 #### FERNANDO CARBAJAL ([id number]) [facility] ([facility]) [address] [place] [address] 77965 MCHC (RBC) [Mass/Vol] 31.0 g/dL Low 32.0-36.0 [facility] Comment on above: Performed By: #### 5 8410-2 #### FERNANDO CARBAJAL ([id number]) [facility] ([facility]) [address] [place] [address] 09048 MCV (RBC) [Entitic vol] 94 fL Normal 80-100 [facility] Comment on above: Performed By: #### 5 8410-2 #### FERNANDO CARBAJAL ([id number]) [facility] ([facility]) [facility] [place] [address] Nucleated RBC/100 WBC (Bld) [Ratio] 0.0 /100 WBCs Normal 0.0-0.0 [facility] Comment on above: Performed By: #### 5 8410-2 #### FERNANDO CARBAJAL ([id number]) [facility] ([facility]) [address] [place] [address] 11394 Platelets (Bld) [#/Vol] 212 x10*3/uL Normal 150-450 [facility] Comment on above: Performed By: #### 5 8410-2 #### FERNANDO CARBAJAL ([id number]) [facility] ([facility]) [address] [place] [address] 81753 RBC (Bld) [#/Vol] 2.75 x10*6/uL Low 4.50-5.90 [facility] Comment on above: Performed By: #### 5 8410-2 #### FERNANDO CARBAJAL ([id number]) [facility] ([facility]) [address] [place] [address] 47255 WBC (Bld) [#/Vol] 8.1 x10*3/uL Normal 4.4-11.3 [facility] Comment on above: Performed By: #### 5 8410-2 #### FERNANDO CARBAJAL ([id number]) [facility] ([facility]) [address] [place] [address] 93120 XR Hip Viewson 05-23-2023 These images are not reportable by radiology and will not be interpreted by Radiologists. IMAGING These images are not reportable by radiology and will not be interpreted by Radiologists. IMAGING Basic metabolic 2000 panelon 04-07-2023 Anion gap [Moles/Vol] 16 mmol/L 10 - 2 0 mmol/L [facility] Calcium [Mass/Vol] 8.2 mg/dL Low 8.6 - 10. 3 mg/dL [facility] Chloride [Moles/Vol] 106 mmol/L 98 - 10 7 mmol/L [facility] CO2 [Moles/Vol] 20 mmol/L Low 21 - 32 mmol/L [facility] Creatinine [Mass/Vol] 7.40 mg/dL High 0.50 - 1.30 mg/dL [facility] GFR/1.73 sq M.predicted MDRD (S/P/Bld) [Vol rate/Area] 7 mL/min/{1.73_m2} Low - PINF [facility] Comment on above: Calculations of alejandra mated GFR are performed using the 2020 CKD-EPI Study Refit equation without the race variable for the IDMS-Traceable creatinine methods. https://jasn.asnjournals.org/content/early//ASN.20235 83179 Glucose [Mass/Vol] 116 mg/dL High 74 - 99 mg/dL [facility] Interpretation and review of laboratory results Abnormal [facility] Potassium [Moles/Vol] 4.5 mmol/L 3.5 - 5.3 mmol/L [facility] Sodium [Moles/Vol] 137 mmol/L 136 - 145 mmol/L [facility] Urea nitrogen [Mass/Vol] 98 mg/dL Critically high 6 - 23 mg/dL [facility] CBC panel Auto (Bld)on 04-07 Erythrocyte distribution width (RBC) [Ratio] 15.3 % High 11.5 - 14.5 % [facility] Hematocrit (Bld) [Volume fraction] 27.3 % Low 41.0 - 52.0 % [facility] Hemoglobin (Bld) [Mass/Vol] 8.2 g/dL Low 13.5 - 17.5 g/dL [facility] Interpretation and review of laboratory results Abnormal [facility] MCH (RBC) [Entitic mass] 27.9 pg 26.0 - 34.0 pg [facility] MCHC (RBC) [Mass/Vol] 30.0 g/dL Low 32.0 - 36.0 g/dL [facility] MCV (RBC) [Entitic vol] 93 fL 80 - 100 fL [facility] Nucleated RBC/100 WBC (Bld) [Ratio] 0.0 % [facility] Platelets (Bld) [#/Vol] 250 10*3/uL [facility] RBC (Bld) [#/Vol] 2.94 10*6/uL Low [facility] WBC (Bld) [#/Vol] 5.7 10*3/uL [facility] Basic metabolic 2000 panelon 04-06-2023 Anion gap [Moles/Vol] 17 mmol/L [facility] Calcium [Mass/Vol] 8.3 mg/dL Low 8.6 - 10. 3 mg/dL [facility] Chloride [Moles/Vol] 107 mmol/L 98 - 10 7 mmol/L [facility] CO2 [Moles/Vol] 18 mmol/L Low 21 - 32 mmol/L [facility] Creatinine [Mass/Vol] 7.49 mg/dL High 0.50 - 1.30 mg/dL [facility] GFR/1.73 sq M.predicted MDRD (S/P/Bld) [Vol rate/Area] 7 mL/min/{1.73_m2} Low - PINF [facility] Comment on above: Calculations of alejandra mated GFR are performed using the 2020 CKD-EPI Study Refit equation without the race variable for the IDMS-Traceable creatinine methods. https://jasn.asnjournals.org/content//ASN.86123 51698 Glucose [Mass/Vol] 93 mg/dL 74 - 99 mg/dL [facility] Interpretation and review of laboratory results Abnormal [facility] Potassium [Moles/Vol] 4.1 mmol/L 3.5 - 5.3 mmol/L [facility] Sodium [Moles/Vol] 138 mmol/L 136 - 145 mmol/L [facility] Urea nitrogen [Mass/Vol] 95 mg/dL Critically high 6 - 23 mg/dL [facility] CBC panel Auto (Bld)on 04-06 Erythrocyte distribution width (RBC) [Ratio] 15.1 % High 11.5 - 14.5 % [facility] Hematocrit (Bld) [Volume fraction] 27.9 % Low 41.0 - 52.0 % [facility] Hemoglobin (Bld) [Mass/Vol] 8.2 g/dL Low 13.5 - 17.5 g/dL [facility] Interpretation and review of laboratory results Abnormal [facility] MCH (RBC) [Entitic mass] 28.0 pg 26.0 - 34.0 pg [facility] MCHC (RBC) [Mass/Vol] 29.4 g/dL Low 32.0 - 36.0 g/dL [facility] MCV (RBC) [Entitic vol] 95 fL 80 - 100 fL [facility] Nucleated RBC/100 WBC (Bld) [Ratio] 0.0 % [facility] Platelets (Bld) [#/Vol] 236 10*3/uL [facility] RBC (Bld) [#/Vol] 2.93 10*6/uL Low [facility] WBC (Bld) [#/Vol] 4.9 10*3/uL [facility] SARS-CoV-2 (COVID-19) RNA NA A+probe Ql (Resp)on 04-06-2023 Interpretation and review of laboratory results Normal [facility] This assay has received FDA Emergency Use Authorization (EUA) and is only authorized for the duration of time that circumstances exist to justify the authorization of the emergency use of in vitro diagnostic tests for the detection of SARS-CoV-2 virus and/or diagnosis of COVID-19 infection under section 564(b)(1) of the Act, 21 U.S.C. 360bbb-3(b)(1). This assay is an in vitro diagnostic nucleic acid amplification test for the qualitative detection of SARS-CoV-2 from nasopharyngeal specimens and has been validated for use at [facility]. Negative results do not preclude COVID-19 infections and should not be used as the sole basis for diagnosis, treatment, or other management decisions. [facility] SARS-CoV-2 RT PCRon 04-06-20 SARS-CoV-2 (COVID-19) RNA JACK+probe Ql (Resp) Not detected Not Detected [facility] Bacteria identified Cx Nom ( Bld)on 04-05-2023 Interpretation and review of laboratory results Normal [facility] Blood Cultureon 04-05-2023 Bacteria identified Cx Nom (Bld) No growth at 4 days - FINAL REPORT [facility] Basic metabolic 2000 panelon 04-04-2023 Anion gap [Moles/Vol] 17 mmol/L 10 - 2 0 mmol/L [facility] Calcium [Mass/Vol] 8.3 mg/dL Low 8.6 - 10. 3 mg/dL [facility] Chloride [Moles/Vol] 104 mmol/L 98 - 10 7 mmol/L [facility] CO2 [Moles/Vol] 18 mmol/L Low 21 - 32 mmol/L [facility] Creatinine [Mass/Vol] 7.65 mg/dL High 0.50 - 1.30 mg/dL [facility] GFR/1.73 sq M.predicted MDRD (S/P/Bld) [Vol rate/Area] 7 mL/min/{1.73_m2} Low - PINF [facility] Comment on above: Calculations of alejandra mated GFR are performed using the 2020 CKD-EPI Study Refit equation without the race variable for the IDMS-Traceable creatinine methods. https://jasn.asnjournals.org/content/early//ASN.77792 79349 Glucose [Mass/Vol] 106 mg/dL High 74 - 99 mg/dL [facility] Potassium [Moles/Vol] 4.2 mmol/L 3.5 - 5.3 mmol/L [facility] Sodium [Moles/Vol] 135 mmol/L Low 136 - 145 mmol/L [facility] Urea nitrogen [Mass/Vol] 91 mg/dL Critically high 6 - 23 mg/dL [facility] CBC panel Auto (Bld)on 04-04 Erythrocyte distribution width (RBC) [Ratio] 14.8 % High 11.5 - 14.5 % [facility] Hematocrit (Bld) [Volume fraction] 27.6 % Low 41.0 - 52.0 % [facility] Hemoglobin (Bld) [Mass/Vol] 8.4 g/dL Low 13.5 - 17.5 g/dL [facility] Interpretation and review of laboratory results Abnormal [facility] MCH (RBC) [Entitic mass] 28.3 pg 26.0 - 34.0 pg [facility] MCHC (RBC) [Mass/Vol] 30.4 g/dL Low 32.0 - 36.0 g/dL [facility] MCV (RBC) [Entitic vol] 93 fL 80 - 100 fL [facility] Nucleated RBC/100 WBC (Bld) [Ratio] 0.0 % [facility] Platelets (Bld) [#/Vol] 200 10*3/uL [facility] RBC (Bld) [#/Vol] 2.97 10*6/uL Low [facility] WBC (Bld) [#/Vol] 7.1 10*3/uL [facility] Iron and Iron binding capaci ty panelon 04-04-2023 Iron [Mass/Vol] 31 ug/dL Low 35 - 150 ug/dL [facility] Iron binding capacity [Mass/Vol] 145 ug/dL Low 240 - 445 ug/dL [facility] Iron binding capacity.unsaturated [Mass/Vol] 114 ug/dL 110 - 370 ug/dL [facility] Iron saturation [Mass fraction] 21 % Low 25 - 45 % [facility] No Panel Informationon 04-04 Interpretation and review of laboratory results Abnormal [facility] SARS-CoV-2 (COVID-19) RNA NA A+probe Ql (Resp)on 04-04-2023 Interpretation and review of laboratory results Normal [facility] This assay has received FDA Emergency Use Authorization (EUA) and is only authorized for the duration of time that circumstances exist to justify the authorization of the emergency use of in vitro diagnostic tests for the detection of SARS-CoV-2 virus and/or diagnosis of COVID-19 infection under section 564(b)(1) of the Act, 21 U.S.C. 360bbb-3(b)(1). This assay is an in vitro diagnostic nucleic acid amplification test for the qualitative detection of SARS-CoV-2 from nasopharyngeal specimens and has been validated for use at [facility]. Negative results do not preclude COVID-19 infections and should not be used as the sole basis for diagnosis, treatment, or other management decisions. [facility] Sars-CoV-2 PCR, Screen Asymp tomaticon 11-03-2023 SARS-CoV-2 (COVID-19) RNA JACK+probe Ql (Resp) Not detected Not Detected [facility] XR Abdomen Single viewon Significant colonic dilatation with stool throughout. Findings favor ileus without definite obstruction. Elevated left hemidiaphragm with bowel contents over the chest wall similar prior study Signed by: Alejo De León 04/04/2023 5:46 PM Dictation workstation: [id number] MMODAL Interpreted By: Alejo Johansen, STUDY: XR ABDOMEN 1 VIEW INDICATION: Signs/Symptoms:ileus or SBO. COMPARISON: December 31, 2022 ACCESSION NUMBER(S): [id number] ORDERING CLINICIAN: GIOVANNI PARDO FINDINGS: Elevated left hemidiaphragm with similar appearance to prior study with bowel contents overlying the left chest. The bowel-gas pattern is nonspecific with stool throughout the colon. No definite obstruction identified. There is however a large amount of colonic distention. This suggests ileus. Double-J ureterostomy stent seen. Left hip hemiarthroplasty. [facility] Alejo De León MD - 04/04/2023 Interpreted By: Alejo De León, STUDY: XR ABDOMEN 1 VIEW INDICATION: Signs/Symptoms:ileus or SBO. COMPARISON: December 31, 2022 ACCESSION NUMBER(S): [id number] ORDERING CLINICIAN: GIOVANNI PARDO FINDINGS: Elevated left hemidiaphragm with similar appearance to prior study with bowel contents overlying the left chest. The bowel-gas pattern is nonspecific with stool throughout the colon. No definite obstruction identified. There is however a large amount of colonic distention. This suggests ileus. Double-J ureterostomy stent seen. Left hip hemiarthroplasty. IMPRESSION: Significant colonic dilatation with stool throughout. Findings favor ileus without definite obstruction. Elevated left hemidiaphragm with bowel contents over the chest wall similar prior study Signed by: Alejo De León 04/04/2023 5:46 PM Dictation workstation: [id number] [facility] Work Phone: Radiology Study observation (narrative) [facility] Work Phone: XR Abdomen Single viewOrdere d By: Alejo De León on 04-04-2023 [facility] Work Phone: Basic metabolic 2000 panelon 04-03-2023 Anion gap [Moles/Vol] 16 mmol/L 10 - 2 0 mmol/L [facility] Calcium [Mass/Vol] 8.1 mg/dL Low 8.6 - 10. 3 mg/dL [facility] Chloride [Moles/Vol] 107 mmol/L 98 - 10 7 mmol/L [facility] CO2 [Moles/Vol] 19 mmol/L Low 21 - 32 mmol/L [facility] Creatinine [Mass/Vol] 7.70 mg/dL High 0.50 - 1.30 mg/dL [facility] GFR/1.73 sq M.predicted MDRD (S/P/Bld) [Vol rate/Area] 7 mL/min/{1.73_m2} Low - PINF [facility] Comment on above: Calculations of alejandra mated GFR are performed using the 2020 CKD-EPI Study Refit equation without the race variable for the IDMS-Traceable creatinine methods. https://jasn.asnjournals.org/content/early//ASN.39285 89987 Glucose [Mass/Vol] 119 mg/dL High 74 - 99 mg/dL [facility] Interpretation and review of laboratory results Abnormal [facility] Potassium [Moles/Vol] 5.1 mmol/L 3.5 - 5.3 mmol/L [facility] Sodium [Moles/Vol] 137 mmol/L 136 - 145 mmol/L [facility] Urea nitrogen [Mass/Vol] 85 mg/dL High 6 - 23 mg/dL [facility] CBC panel Auto (Bld)on 04-03 Erythrocyte distribution width (RBC) [Ratio] 14.8 % High 11.5 - 14.5 % [facility] Hematocrit (Bld) [Volume fraction] 28.4 % Low 41.0 - 52.0 % [facility] Hemoglobin (Bld) [Mass/Vol] 8.7 g/dL Low 13.5 - 17.5 g/dL [facility] Interpretation and review of laboratory results Abnormal [facility] MCH (RBC) [Entitic mass] 28.9 pg 26.0 - 34.0 pg [facility] MCHC (RBC) [Mass/Vol] 30.6 g/dL Low 32.0 - 36.0 g/dL [facility] MCV (RBC) [Entitic vol] 94 fL 80 - 100 fL [facility] Nucleated RBC/100 WBC (Bld) [Ratio] 0.0 % [facility] Platelets (Bld) [#/Vol] 196 10*3/uL [facility] RBC (Bld) [#/Vol] 3.01 10*6/uL Low [facility] WBC (Bld) [#/Vol] 8.7 10*3/uL [facility] CBC panel Auto (Bld)on 04-02 Erythrocyte distribution width (RBC) [Ratio] 14.7 % High 11.5 - 14.5 % [facility] Hematocrit (Bld) [Volume fraction] 31.0 % Low 41.0 - 52.0 % [facility] Hemoglobin (Bld) [Mass/Vol] 9.3 g/dL Low 13.5 - 17.5 g/dL [facility] Interpretation and review of laboratory results Abnormal [facility] MCH (RBC) [Entitic mass] 28.7 pg 26.0 - 34.0 pg [facility] MCHC (RBC) [Mass/Vol] 30.0 g/dL Low 32.0 - 36.0 g/dL [facility] MCV (RBC) [Entitic vol] 96 fL 80 - 100 fL [facility] Nucleated RBC/100 WBC (Bld) [Ratio] 0.0 % [facility] Platelet mean volume (Bld) [Entitic vol] 10.6 fL 7.5 - 11.5 fL [facility] Platelets (Bld) [#/Vol] 228 10*3/uL [facility] RBC (Bld) [#/Vol] 3.24 10*6/uL [facility] WBC (Bld) [#/Vol] 9.3 10*3/uL [facility] Renal function 2000 panelon 04-02-2023 Albumin BCP dye [Mass/Vol] 3.0 g/dL Low 3.4 - 5.0 g/dL [facility] Anion gap [Moles/Vol] 16 mmol/L 10 - 2 0 mmol/L [facility] Calcium [Mass/Vol] 8.0 mg/dL Low 8.6 - 10. 3 mg/dL [facility] Chloride [Moles/Vol] 106 mmol/L 98 - 10 7 mmol/L [facility] CO2 [Moles/Vol] 19 mmol/L Low 21 - 32 mmol/L [facility] Creatinine [Mass/Vol] 6.87 mg/dL High 0.50 - 1.30 mg/dL [facility] GFR/1.73 sq M.predicted MDRD (S/P/Bld) [Vol rate/Area] 8 mL/min/{1.73_m2} Low - PINF [facility] Comment on above: Calculations of alejandra mated GFR are performed using the 2020 CKD-EPI Study Refit equation without the race variable for the IDMS-Traceable creatinine methods. https://jasn.asnjournals.org/content/early//ASN.30293 38963 Glucose [Mass/Vol] 91 mg/dL 74 - 99 mg/dL [facility] Interpretation and review of laboratory results Abnormal [facility] Phosphate [Mass/Vol] 7.6 mg/dL High 2.5 - 4 .9 mg/dL [facility] Comment on above: The performance herve acteristics of phosphorus testing in heparinized plasma have been validated by the individual laboratory site where testing is performed. Testing on heparinized plasma is not approved by the FDA; however, such approval is not necessary. Potassium [Moles/Vol] 4.8 mmol/L 3.5 - 5.3 mmol/L [facility] Sodium [Moles/Vol] 136 mmol/L 136 - 145 mmol/L [facility] Urea nitrogen [Mass/Vol] 70 mg/dL High 6 - 23 mg/dL [facility] XR Hip - left Single viewon 04-02-2023 Immediately status post left hip arthroplasty. No acute fracture or dislocation. MACRO: None Signed by: Tera Powell 04/02/2023 2:50 PM Dictation workstation: [id number] [facility] Interpreted By: Tera Li, STUDY: XR HIP LEFT 1 VIEW; 04/02/2023 2:47 pm INDICATION: Signs/Symptoms:Post op hip. COMPARISON: Comparison with pre-surgical left hip film from 03/31/2023. ACCESSION NUMBER(S): [id number] ORDERING CLINICIAN: JUDY LEY TECHNIQUE: Single portable AP postoperative view of the left hip was obtained. FINDINGS: Immediately status post left hip arthroplasty. Left femoral and acetabular components appear well seated and in good alignment. There is mild postsurgical gas in the adjacent soft tissues. No lytic or blastic destructive bone lesion. No acute fracture or dislocation. [facility] Tera Powell MD - 04/02/2023 Interpreted By: Tera Powell, STUDY: XR HIP LEFT 1 VIEW; 04/02/2023 2:47 pm INDICATION: Signs/Symptoms:Post op hip. COMPARISON: Comparison with pre-surgical left hip film from 03/31/2023. ACCESSION NUMBER(S): [id number] ORDERING CLINICIAN: JUDY LEY TECHNIQUE: Single portable AP postoperative view of the left hip was obtained. FINDINGS: Immediately status post left hip arthroplasty. Left femoral and acetabular components appear well seated and in good alignment. There is mild postsurgical gas in the adjacent soft tissues. No lytic or blastic destructive bone lesion. No acute fracture or dislocation. IMPRESSION: Immediately status post left hip arthroplasty. No acute fracture or dislocation. MACRO: None Signed by: Tera Powell 04/02/2023 2:50 PM Dictation workstation: [id number] [facility] Work Phone: Radiology Study observation (narrative) [facility] Work Phone: XR Hip - left Single viewOrd ered By: Tera Powell on 04-02-2023 [facility] Work Phone: Basic metabolic 2000 panelon 04-01-2023 Anion gap [Moles/Vol] 15 mmol/L 10 - 2 0 mmol/L [facility] Calcium [Mass/Vol] 8.0 mg/dL Low 8.6 - 10. 3 mg/dL [facility] Chloride [Moles/Vol] 107 mmol/L 98 - 10 7 mmol/L [facility] CO2 [Moles/Vol] 19 mmol/L Low 21 - 32 mmol/L [facility] Creatinine [Mass/Vol] 6.40 mg/dL High 0.50 - 1.30 mg/dL [facility] GFR/1.73 sq M.predicted MDRD (S/P/Bld) [Vol rate/Area] 8 mL/min/{1.73_m2} Low - PINF [facility] Comment on above: Calculations of alejandra mated GFR are performed using the 2020 CKD-EPI Study Refit equation without the race variable for the IDMS-Traceable creatinine methods. https://jasn.asnjournals.org/content/early//ASN.40455 30748 Glucose [Mass/Vol] 115 mg/dL High 74 - 99 mg/dL [facility] Interpretation and review of laboratory results Abnormal [facility] Potassium [Moles/Vol] 4.5 mmol/L 3.5 - 5.3 mmol/L [facility] Sodium [Moles/Vol] 136 mmol/L 136 - 145 mmol/L [facility] Urea nitrogen [Mass/Vol] 70 mg/dL High 6 - 23 mg/dL [facility] CBC panel Auto (Bld)on 04-01 Erythrocyte distribution width (RBC) [Ratio] 15.0 % High 11.5 - 14.5 % [facility] Hematocrit (Bld) [Volume fraction] 35.9 % Low 41.0 - 52.0 % [facility] Hemoglobin (Bld) [Mass/Vol] 10.7 g/dL Low 13.5 - 17.5 g/dL [facility] Interpretation and review of laboratory results Abnormal [facility] MCH (RBC) [Entitic mass] 28.3 pg 26.0 - 34.0 pg [facility] MCHC (RBC) [Mass/Vol] 29.8 g/dL Low 32.0 - 36.0 g/dL [facility] MCV (RBC) [Entitic vol] 95 fL 80 - 100 fL [facility] Nucleated RBC/100 WBC (Bld) [Ratio] 0.0 % [facility] Platelet mean volume (Bld) [Entitic vol] 10.2 fL 7.5 - 11.5 fL [facility] Platelets (Bld) [#/Vol] 265 10*3/uL [facility] RBC (Bld) [#/Vol] 3.78 10*6/uL [facility] (Bld[facility] [#/Vol] 11.5 10*3/uL [facility] 2000 panelon 04-01-2023 Albumin BCP dye [Mass/Vol] 3.5 g/dL 3.4 - 5.0 g/dL [facility] ALP [Catalytic activity/Vol] 72 U/L 33 - 136 U/L [facility] ALT With P-5'-P [Catalytic activity/Vol] 13 U/L 10 - 52 U/L [facility] Comment on above: Patients treated wit h Sulfasalazine may generate falsely decreased results for ALT. Anion gap [Moles/Vol] 17 mmol/L 10 - 2 0 mmol/L [facility] AST With P-5'-P [Catalytic activity/Vol] 29 U/L 9 - 39 U/L [facility] Bilirubin [Mass/Vol] 0.4 mg/dL 0.0 - 1 .2 mg/dL [facility] Calcium [Mass/Vol] 8.5 mg/dL Low 8.6 - 10. 3 mg/dL [facility] Chloride [Moles/Vol] 105 mmol/L 98 - 10 7 mmol/L [facility] CO2 [Moles/Vol] 19 mmol/L Low 21 - 32 mmol/L [facility] Creatinine [Mass/Vol] 6.24 mg/dL High 0.50 - 1.30 mg/dL [facility] GFR/1.73 sq M.predicted MDRD (S/P/Bld) [Vol rate/Area] 9 mL/min/{1.73_m2} Low - PINF [facility] Comment on above: Calculations of alejandra mated GFR are performed using the 2020 CKD-EPI Study Refit equation without the race variable for the IDMS-Traceable creatinine methods. https://jasn.asnjournals.org/content//ASN.56031 02568 Glucose [Mass/Vol] 115 mg/dL High 74 - 99 mg/dL [facility] Interpretation and review of laboratory results Abnormal [facility] Potassium [Moles/Vol] 4.6 mmol/L 3.5 - 5.3 mmol/L [facility] Protein [Mass/Vol] 7.4 g/dL 6.4 - 8.2 g/dL [facility] Sodium [Moles/Vol] 136 mmol/L 136 - 145 mmol/L [facility] Urea nitrogen [Mass/Vol] 70 mg/dL High 6 - 23 mg/dL [facility] Legionella Antigen, UrineOrd ered By: Daily Iglesias on 04-01-2023 Legionella sp Ag Ql (U) Negative Negative [facility] Legionella sp Ag Ql (U)Order ed By: Daily Iglesias on 04-01-2023 Interpretation and review of laboratory results Normal [facility] S. pneumoniae Ag Ql (U)on Interpretation and review of laboratory results Normal [facility] Work Phone: [facility] Work Phone: Streptococcus pneumoniae Ant igen, Urineon 04-01-2023 S. pneumoniae Ag Ql (U) Negative Negative [facility] Work Phone: US Kidneyon 04-01-2023 Bilateral moderately severe to severe hydronephrosis with increase in the hydronephrosis in the right kidney since the last examination of 01/09/2023. Right ureteric stent present. MACRO: None Signed by: Fei Ceron 04/01/2023 8:20 AM Dictation workstation: [id number] [facility] Interpreted By: Fei Ceron, STUDY: US RENAL COMPLETE; 04/01/2023 8:06 am INDICATION: Signs/Symptoms:CHLOE. COMPARISON: None. ACCESSION NUMBER(S): [id number] ORDERING CLINICIAN: LINA BACA TECHNIQUE: Multiple images of the kidneys were obtained. FINDINGS: RIGHT KIDNEY: Length 13.4 cm. Cortical thickness 9 mm. Normal cortical echogenicity. A moderately severe hydronephrosis is present with dilatation of the collecting system and renal pelvis. The hydronephrosis has increased from 01/09/2023. A drainage catheter is present with its tip in the renal pelvis. LEFT KIDNEY: Length 13.1 cm. Cortical thickness 9 mm. Normal cortical echogenicity. Moderate to severe hydronephrosis is present similar to 01/09/2023. BLADDER: The urinary bladder is decompressed by Jamison's catheter. MM[facility] Fei Ceron MD - 04/01/2023 Interpreted By: Fei Ceron, STUDY: US RENAL COMPLETE; 04/01/2023 8:06 am INDICATION: Signs/Symptoms:CHLOE. COMPARISON: None. ACCESSION NUMBER(S): [id number] ORDERING CLINICIAN: LINA BACA TECHNIQUE: Multiple images of the kidneys were obtained. FINDINGS: RIGHT KIDNEY: Length 13.4 cm. Cortical thickness 9 mm. Normal cortical echogenicity. A moderately severe hydronephrosis is present with dilatation of the collecting system and renal pelvis. The hydronephrosis has increased from 01/09/2023. A drainage catheter is present with its tip in the renal pelvis. LEFT KIDNEY: Length 13.1 cm. Cortical thickness 9 mm. Normal cortical echogenicity. Moderate to severe hydronephrosis is present similar to 01/09/2023. BLADDER: The urinary bladder is decompressed by Jamison's catheter. IMPRESSION: Bilateral moderately severe to severe hydronephrosis with increase in the hydronephrosis in the right kidney since the last examination of 01/09/2023. Right ureteric stent present. MACRO: None Signed by: Fei Ceron 04/01/2023 8:20 AM Dictation workstation: [id number] [facility] Work Phone: Radiology Study observation (narrative) [facility] Work Phone: US KidneyOrdered By: Fei Ceron on 04-01-2023 [facility] Work Phone: Basic metabolic 2000 panelon 03-31-2023 Anion gap [Moles/Vol] 18 mmol/L 10 - 2 0 mmol/L [facility] Calcium [Mass/Vol] 8.9 mg/dL 8.6 - 10. 3 mg/dL [facility] Chloride [Moles/Vol] 106 mmol/L 98 - 10 7 mmol/L [facility] CO2 [Moles/Vol] 17 mmol/L Low 21 - 32 mmol/L [facility] Creatinine [Mass/Vol] 6.46 mg/dL High 0.50 - 1.30 mg/dL [facility] GFR/1.73 sq M.predicted MDRD (S/P/Bld) [Vol rate/Area] 8 mL/min/{1.73_m2} Low - PINF [facility] Comment on above: Calculations of alejandra mated GFR are performed using the 2020 CKD-EPI Study Refit equation without the race variable for the IDMS-Traceable creatinine methods. https://jasn.asnjournals.org/content//ASN.39646 23208 Glucose [Mass/Vol] 124 mg/dL High 74 - 99 mg/dL [facility] Interpretation and review of laboratory results Abnormal [facility] Potassium [Moles/Vol] 4.0 mmol/L 3.5 - 5.3 mmol/L [facility] Sodium [Moles/Vol] 137 mmol/L 136 - 145 mmol/L [facility] Urea nitrogen [Mass/Vol] 77 mg/dL High 6 - 23 mg/dL [facility] Blood type and Indirect anti body screen panel (Bld)on 03-31-2023 ABO group Nom (Bld) [facility] antibody screen Ql Negative [facility] D Ag Ql (Bld) Negative [facility] CBC W Auto Differential pane l (Bld)on 03-31-2023 Basophils (Bld) [#/Vol] 0.05 10*3/uL [facility] Basophils/100 WBC (Bld) 0.3 % 0.0 - 2.0 % [facility] Eosinophils (Bld) [#/Vol] 0.01 10*3/uL [facility] Eosinophils/100 WBC (Bld) 0.1 % 0.0 - 6.0 % [facility] Erythrocyte distribution width (RBC) [Ratio] 15.2 % High 11.5 - 14.5 % [facility] Hematocrit (Bld) [Volume fraction] 38.8 % Low 41.0 - 52.0 % [facility] Hemoglobin (Bld) [Mass/Vol] 11.6 g/dL Low 13.5 - 17.5 g/dL [facility] Immature granulocytes (Bld) [#/Vol] 0.07 10*3/uL [facility] Immature granulocytes/100 WBC (Bld) 0.5 % 0.0 - 0.9 % [facility] Comment on above: Immature Granulocyte Count (IG) includes promyelocytes, myelocytes and metamyelocytes but does not include bands. Percent differential counts (%) should be interpreted in the context of the absolute cell counts (cells/UL). Interpretation and review of laboratory results Abnormal [facility] Lymphocytes (Bld) [#/Vol] 0.73 10*3/uL Low [facility] Lymphocytes/100 WBC (Bld) 4.8 % 13.0 - 44.0 % [facility] MCH (RBC) [Entitic mass] 28.6 pg 26.0 - 34.0 pg [facility] MCHC (RBC) [Mass/Vol] 29.9 g/dL Low 32.0 - 36.0 g/dL [facility] MCV (RBC) [Entitic vol] 96 fL 80 - 100 fL [facility] Monocytes (Bld) [#/Vol] 0.87 10*3/uL High [facility] Monocytes/100 WBC (Bld) 5.7 % 2.0 - 10.0 % [facility] Neutrophils (Bld) [#/Vol] 13.55 10*3/uL High [facility] Comment on above: Percent differential counts (%) should be interpreted in the context of the absolute cell counts (cells/uL). Neutrophils/100 WBC (Bld) 88.6 % 40.0 - 80.0 % [facility] Nucleated RBC/100 WBC (Bld) [Ratio] 0.0 % [facility] Platelet mean volume (Bld) [Entitic vol] 10.0 fL 7.5 - 11.5 fL [facility] Platelets (Bld) [#/Vol] 293 10*3/uL [facility] RBC (Bld) [#/Vol] 4.06 10*6/uL Low [facility] WBC (Bld) [#/Vol] 15.3 10*3/uL High [facility] Lactateon 03-31-2023 Lactate [Moles/Vol] 1.5 mmol/L 0.4 - 2. 0 mmol/L [facility] Lactate [Moles/Vol]on 2022 Interpretation and review of laboratory results Normal [facility] Venipuncture immediately after or during the administration of Metamizole may lead to falsely low results. Testing should be performed immediately prior to Metamizole dosing. [facility] XR Chest Single viewon 03-31 Left basilar airspac e consolidation, as above. Clinical correlation and continued follow-up until clearing is recommended. MACRO: None. Signed by: Zane Boyce 03/31/2023 2:15 PM Dictation workstation: [id number] [facility] Interpreted By: Zane Boyce, STUDY: XR CHEST 1 VIEW 03/31/2023 2:01 pm INDICATION: Signs/Symptoms:fx COMPARISON: 01/08/2023 ACCESSION NUMBER(S): [id number] ORDERING CLINICIAN: JUANITO ESPINOZA TECHNIQUE: 2 AP portable radiographs of the chest were obtained FINDINGS: A left basilar airspace consolidation is seen and may represent small pleural effusion, atelectasis and/or pneumonia. No pneumothorax is identified. The cardiac silhouette is enlarged, similar to prior studies. Zane Singh MD - 03/31/2023 Interpreted By: Zane Boyce, STUDY: XR CHEST 1 VIEW 03/31/2023 2:01 pm INDICATION: Signs/Symptoms:fx COMPARISON: 01/08/2023 ACCESSION NUMBER(S): [id number] ORDERING CLINICIAN: JUANITO ESPINOZA TECHNIQUE: 2 AP portable radiographs of the chest were obtained FINDINGS: A left basilar airspace consolidation is seen and may represent small pleural effusion, atelectasis and/or pneumonia. No pneumothorax is identified. The cardiac silhouette is enlarged, similar to prior studies. IMPRESSION: Left basilar airspace consolidation, as above. Clinical correlation and continued follow-up until clearing is recommended. MACRO: None. Signed by: Zane Boyce 03/31/2023 2:15 PM Dictation workstation: [id number] [facility] Work Phone: [facility] Work Phone: Radiology Study observation (narrative) [facility] Work Phone: XR Hip Viewson 03-31-2023 1. Left femoral neck fracture, as above. 2. Degenerative changes, as described above. MACRO: None. Signed by: Zane Boyce 03/31/2023 2:14 PM Dictation workstation: [id number] [facility] Interpreted By: Zane Boyce, STUDY: XR HIP LEFT 2 OR 3 VIEWS 03/31/2023 2:00 pm INDICATION: Signs/Symptoms:pain COMPARISON: None. ACCESSION NUMBER(S): [id number] ORDERING CLINICIAN: JUANITO ESPINOZA TECHNIQUE: A single AP view of the pelvis as well as AP and lateral views of the left hip were obtained. FINDINGS: A transverse fracture is seen through the subcapital aspect of the left femoral neck. There is no evidence of additional fracture or dislocation identified. Mild degenerative changes are seen in the hips and sacroiliac joints bilaterally. Rounded calcifications are seen with throughout the pelvis, most consistent with phleboliths. [facility] Zane Boyce MD - 03/31/2023 Interpreted By: Zane Boyce, STUDY: XR HIP LEFT 2 OR 3 VIEWS 03/31/2023 2:00 pm INDICATION: Signs/Symptoms:pain COMPARISON: None. ACCESSION NUMBER(S): [id number] ORDERING CLINICIAN: JUANITO ESPINOZA TECHNIQUE: A single AP view of the pelvis as well as AP and lateral views of the left hip were obtained. FINDINGS: A transverse fracture is seen through the subcapital aspect of the left femoral neck. There is no evidence of additional fracture or dislocation identified. Mild degenerative changes are seen in the hips and sacroiliac joints bilaterally. Rounded calcifications are seen with throughout the pelvis, most consistent with phleboliths. IMPRESSION: 1. Left femoral neck fracture, as above. 2. Degenerative changes, as described above. MACRO: None. Signed by: Zane Boyce 03/31/2023 2:14 PM Dictation workstation: [id number] [facility] Work Phone: Radiology Study observation (narrative) [facility] Work Phone: XR Hip ViewsOrdered By: Zane Boyce on 03-31-2023 [facility] Work Phone: CBCon 02-28-2023 Erythrocyte distribution width (RBC) [Ratio] 14.6 % High 11.5 - 14.5 [facility] Comment on above: Performed By: #### C BC #### [address] [address] Hematocrit (Bld) [Volume fraction] 31.5 % Low 41.0 - 52.0 [facility] Comment on above: Performed By: #### C BC #### [address] [address] Hemoglobin (Bld) [Mass/Vol] 9.1 g/dL Low 13.5 - 17.5 [facility] Comment on above: Performed By: #### C BC #### [address] [address] MCHC (RBC) [Mass/Vol] 28.9 g/dL Low 32.0 - 36.0 [facility] Comment on above: Performed By: #### C BC #### [address] [address] MCV (RBC) [Entitic vol] 98 fL Normal 80 - 100 [facility] Comment on above: Performed By: #### C BC #### [address] [address] Platelets (Bld) [#/Vol] 355 10*3/uL Normal 150 - 450 [facility] Comment on above: Performed By: #### C BC #### [address] [address] RBC 3.22 x10E12/L Low 4.50 - 5.90 [facility] Comment on above: Performed By: #### C BC #### [address] [address] WBC (Bld) [#/Vol] 10.1 10*3/uL Normal 4.4 - 11.3 [facility] Comment on above: Performed By: #### C BC #### [address] [address] COMPREHENSIVE PANELon 02-28- 2022 Albumin [Mass/Vol] 3.6 g/dL Normal 3.4 - 5.0 [facility] Comment on above: Performed By: #### C MP #### [address] [address] ALP [Catalytic activity/Vol] 73 U/L Normal 33 - 136 [facility] Comment on above: Performed By: #### C MP #### [address] [address] ALT [Catalytic activity/Vol] 11 U/L Normal 10 - 52 [facility] Comment on above: Result Comment: Rhea ents treated with Sulfasalazine may generate falsely decreased results for ALT. Performed By: #### C MP #### [address] [address] Anion gap [Moles/Vol] 16 mmol/L Normal 10 - 20 [facility] Comment on above: Performed By: #### C MP #### [address] [address] AST [Catalytic activity/Vol] 14 U/L Normal 9 - 39 [facility] Comment on above: Performed By: #### C MP #### [address] [address] Bilirubin [Mass/Vol] 0.3 mg/dL Normal 0.0 - 1.2 [facility] Comment on above: Performed By: #### C MP #### [address] [address] Calcium [Mass/Vol] 8.8 mg/dL Normal 8.6 - 10.3 [facility] Comment on above: Performed By: #### C MP #### [address] [address] Chloride [Moles/Vol] 108 mmol/L High 98 - 107 [facility] Comment on above: Performed By: #### C MP #### [address] [address] Creatinine [Mass/Vol] 5.94 mg/dL High 0.50 - 1.30 [facility] Comment on above: Performed By: #### C MP #### [address] [address] GFR/1.73 sq M.predicted among non-blacks MDRD (S/P/Bld) [Vol rate/Area] 9 mL/min/{1.73_m2} Abnormal >90 [facility] Comment on above: Result Comment: CALC ULATIONS OF ESTIMATED GFR ARE PERFORMED USING THE 2020 CKD-EPI STUDY REFIT EQUATION WITHOUT THE RACE VARIABLE FOR THE IDMS-TRACEABLE CREATININE METHODS. https://jasn.asnjournals.org/content//ASN.95475 53586 Performed By: #### C MP #### [address] [address] Glucose [Mass/Vol] 96 mg/dL Normal 74 - 99 [facility] Comment on above: Performed By: #### C MP #### [address] [address] HCO3 (Bld) [Moles/Vol] 21 mmol/L Normal 21 - 32 [facility] Comment on above: Performed By: #### C MP #### [address] [address] Potassium [Moles/Vol] 4.5 mmol/L Normal 3.5 - 5.3 [facility] Comment on above: Performed By: #### C MP #### [address] [address] Protein [Mass/Vol] 7.5 g/dL Normal 6.4 - 8.2 [facility] Comment on above: Performed By: #### C MP #### [address] [address] Sodium [Moles/Vol] 140 mmol/L Normal 136 - 145 [facility] Comment on above: Performed By: #### C MP #### [address] [address] Urea nitrogen [Mass/Vol] 68 mg/dL High 6 - 23 [facility] Comment on above: Performed By: #### C MP #### [address] [address] Laboratory - Chemistry and C hemistry - challengeon 02-28-2023 Albumin BCP dye [Mass/Vol] 3.6 g/dL 3.4 - 5.0 [facility] [address] [facility] Work Phone: ALP [Catalytic activity/Vol] 73 U/L 33 - 136 [place] [address] DO Work Phone: ALT With P-5'-P [Catalytic activity/Vol] 11 U/L 10 - 52 [place] [address] DO Work Phone: Comment on above: Patients treated wit h Sulfasalazine may generate falsely decreased results for ALT. Anion gap [Moles/Vol] 16 mmol/L 10 - 20 [place] [address] DO Work Phone: AST With P-5'-P [Catalytic activity/Vol] 14 U/L 9 - 39 [place] [address] DO Work Phone: Bilirubin [Mass/Vol] 0.3 mg/dL 0.0 - 1.2 -N [place] [address] DO Work Phone: Calcium [Mass/Vol] 8.8 mg/dL 8.6 - 10.3 [place] [address] DO Work Phone: Chloride [Moles/Vol] 108 mmol/L above high threshold 98 - 107 [place] [address] DO Work Phone: CO2 [Moles/Vol] 21 mmol/L 21 - 32 [facility] log[place]ristin [place] [address] DO Work Phone: Creatinine [Mass/Vol] 5.94 mg/dL above high threshold See Below [place] [address] DO Work Phone: Comment on above: Reference Range: 0.5 0 - 1.30 Glucose [Mass/Vol] 96 mg/dL 74 - 99 [place] [address] DO Work Phone: Potassium [Moles/Vol] 4.5 mmol/L 3.5 - 5.3 [place] [address] DO Work Phone: Protein [Mass/Vol] 7.5 g/dL 6.4 - 8.2 [place] [address] DO Work Phone: Sodium [Moles/Vol] 140 mmol/L 136 - 145 [place] [address] DO Work Phone: Urea nitrogen [Mass/Vol] 68 mg/dL above high threshold 6 - 23 [place] [address] DO Work Phone: Laboratory - Hematology and Cell countson 02-28-2023 Erythrocyte distribution width (RBC) [Ratio] 14.6 % above high threshold See Below [place] [address] DO Work Phone: Comment on above: Reference Range: 11. 5 - 14.5 Hematocrit (Bld) [Volume fraction] 31.5 % below low threshold See Below [place] [address] DO Work Phone: Comment on above: Reference Range: 41. 0 - 52.0 Hemoglobin (Bld) [Mass/Vol] 9.1 g/dL below low threshold See Below [place] [address] DO Work Phone: Comment on above: Reference Range: 13. 5 - 17.5 MCHC (RBC) [Mass/Vol] 28.9 g/dL below low threshold See Below [place] [address] DO Work Phone: Comment on above: Reference Range: 32. 0 - 36.0 MCV (RBC) [Entitic vol] 98 fL 80 - 100 [place] [address] DO Work Phone: Platelets (Bld) [#/Vol] 355 10*3/uL 150 - 450 [place] [address] DO Work Phone: RBC (Bld) [#/Vol] 3.22 {x10E12/L} below low threshold See Below [place] [address] DO Work Phone: Comment on above: Reference Range: 4.5 0 - 5.90 WBC (Bld) [#/Vol] 10.1 10*3/uL 4.4 - 11.3 -Ne phrologyZachary [place] [address] DO Work Phone: No Panel Informationon 02-28 9 {mL/min/1.73m2} Abnormal >90 -Neph rologyZachary [place] [address] DO Work Phone: Comment on above: CALCULATIONS OF ALEJANDRA MATED GFR ARE PERFORMED USING THE 2020 CKD-EPI STUDY REFIT EQUATION WITHOUT THE RACE VARIABLE FOR THE IDMS-TRACEABLE CREATININE METHODS.https://jasn.asnjournals.org/content/early/A SN.4497320581 No Panel Informationon 02-11 Please click on the link to view the study images Normal [place] [address] DO Work Phone: Established Visit (Nephrolog y)on 02-04-2023 Established Visit (Nephrology) Diagnoses/Problems CKD (chronic kidney disease) (585.9) (N18.9) Hydronephrosis (591) (N13.30) Orders CKD (chronic kidney disease) Complete Blood Count; Status:Active; Requested for:[id number]; Comprehensive Metabolic Panel; Status:Active; Requested for:04Feb2023; Patient Discussion/Summary He has not had any labs drawn since he was discharged from the hospital. He however is feeling well he does not have any what appears to be symptoms of uremia or renal failure For now we will continue as he is He is going to have a procedure next week with Dr. Bah I am going to send him to the hospital right now to get blood work We will follow-up on this closely We will continue to follow his blood work closely as his renal function is quite depressed Provider Impressions Chronic kidney disease with evolving baseline but likely chronic kidney disease stage IV/V Anemia Hypertension Normal anion gap metabolic acidosis: Improved with sodium bicarbonate therapy Chief Complaint Establish care. Hospital FUV. History of Present IllnessHe is here for follow-up after a recent hospitalization. He was hospitalized with renal dysfunction Blood work was last obtained on January 11 This unfortunately was on the day of his discharge at that time hemoglobin was 8.1 renal function at that time showed a BUN of 51 and a creatinine of 4.88 We do not have any repeat blood work since then Before that hospitalization he was also hospitalized previous to that with kidney function that was even worse than that. He has expressed the wish to not receive renal replacement therapy although if it was absolutely necessary then he would probably agree to it. He had hydronephrosis and had to have a Jamison catheter and has seen urology. His medications are reviewed He is feeling well No complaints Mani Jamison has no issues Review of Systems Constitutional: no fever, no chills, no recent weight gain and no recent weight loss. Eyes: no blurred vision and no diplopia. ENT: no hearing loss, no earache, no sore throat, no swollen glands in the neck and no nasal discharge. Cardiovascular: no chest pain, no palpitations and no lower extremity edema. Respiratory: no shortness of breath, no chronic cough and no shortness of breath during exertion. Gastrointestinal: no abdominal pain, no constipation, no heartburn, no bloody stools, no change in bowel habits and no vomiting. Genitourinary: no dysuria and no hematuria. Musculoskeletal: no arthralgias and no myalgias. Skin: no rashes and no skin lesions. Neurological: no headaches and no dizziness. Psychiatric: no confusion, no depression and no anxiety. Endocrine: no cold intolerance, no heat intolerance, no thyroid disorder, no dry skin and no increased urinary frequency. Hematologic/Lymphatic: does not bleed easily and does not bruise easily. All other systems have been reviewed and are negative for complaint. Active Problems CKD (chronic kidney disease) (585.9) (N18.9) Hydronephrosis (591) (N13.30) Surgical History History of Ureteral stent placement Family History No pertinent family history Social History Former tobacco use (V15.82) (Z87.891) No alcohol use Allergies iodine Recorded By: Christina Laurent; 12/09/2022 11:20:24 AM Current Meds Medication NameInstruction Acetaminophen 325 MG Oral Tablet Allopurinol 100 MG Oral TabletTAKE 1 TABLET DAILY DIRECTED. Iron 325 (65 Fe) MG Oral TabletTAKE 1 TABLET TWICE DAILY. Isosorbide Mononitrate 30 MG TB24 Multi-Vitamin Oral Tablet NIFEdipine ER 30 MG Oral Tablet Extended Release 24 HourTAKE 1 TABLET DAILY. Ralston Bismuth 262 MG CHEW Procrit 36591 UNIT/ML Injection SolutionINJECT SUBCUTANEOUSLY DIRECTED. Sodium Bicarbonate 650 MG Oral TabletTake 1 tablet daily Vitals Vital Signs Recorded: 04Feb2023 02:29PM Heart [id number] [id number] lb Tobacco Useb) No Falls Screening (Age 18+)a) No falls within the last year Physical Exam Constitutional: no acute distress, well appearing and well nourished. Psychiatric: orientation to person, place, and time. Appropriate mood and affect. Neurologic: normal examination of cranial nerves, normal examination of motor strength, normal examination of sensation and asterixis is not present. Neck: no thyromegaly, jugular venous distension or audible carotid bruits. Cardiovascular: auscultation of heart: normal rate and rhythm, normal S1 and S2, no murmurs. There was no pericardial friction rub. Pulmonary: lungs are clear to auscultation. Abdomen: soft, non tender to palpation, normoactive bowel sounds. No organomegaly, masses or audible bruits and abdominal aorta: normal. Kidneys: bilateral lower poles not palpable and non tender with percussion. Extremities: exam of extremities was normal. No clubbing of the fingernails and no cyanosis and no edema present. Skin: warm, pink, well conditioned; no rashes or lesio (more content not included)... Normal [facility] - Chemistry and C hemistry - challengeon 02-04-2023 Albumin BCP dye [Mass/Vol] 3.9 g/dL 3.4 - 5.0 [place] [address] DO Work Phone: ALP [Catalytic activity/Vol] 74 U/L 33 - 136 [place] [address] DO Work Phone: ALT With P-5'-P [Catalytic activity/Vol] 10 U/L 10 - 52 [place] [address] DO Work Phone: Comment on above: Patients treated wit h Sulfasalazine may generate falsely decreased results for ALT. Anion gap [Moles/Vol] 17 mmol/L 10 - 20 [place] [address] DO Work Phone: AST With P-5'-P [Catalytic activity/Vol] 13 U/L 9 - 39 [place] [address] DO Work Phone: Bilirubin [Mass/Vol] 0.4 mg/dL 0.0 - 1.2 [place] [address] DO Work Phone: Calcium [Mass/Vol] 9.1 mg/dL 8.6 - 10.3 [facility] [address] DO Work Phone: Chloride [Moles/Vol] 104 mmol/L 98 - 107 [place] [address] DO Work Phone: CO2 [Moles/Vol] 19 mmol/L below low threshold 21 - 32 MP-Nephrology- [facility] [place] Sabina Dawood 3 DO Work Phone: Creatinine [Mass/Vol] 4.38 mg/dL above high threshold See Below [place] [address] DO Work Phone: Comment on above: Reference Range: 0.5 0 - 1.30 Glucose [Mass/Vol] 104 mg/dL above high threshold 74 - 99 [place] [address] DO Work Phone: Potassium [Moles/Vol] 4.1 mmol/L 3.5 - 5.3 [place] [address] DO Work Phone: Protein [Mass/Vol] 7.8 g/dL 6.4 - 8.2 [place] [address] DO Work Phone: Sodium [Moles/Vol] 136 mmol/L 136 - 145 [place] [address] DO Work Phone: Urea nitrogen [Mass/Vol] 82 mg/dL above high threshold 6 - 23 [place] [address] DO Work Phone: Laboratory - Hematology and Cell countson 02-04-2023 Erythrocyte distribution width (RBC) [Ratio] 14.9 % above high threshold See Below [place] [address] DO Work Phone: Comment on above: Reference Range: 11. 5 - 14.5 Hematocrit (Bld) [Volume fraction] 34.4 % below low threshold See Below [place] [address] DO Work Phone: Comment on above: Reference Range: 41. 0 - 52.0 Hemoglobin (Bld) [Mass/Vol] 10.1 g/dL below low threshold See Below [place] [address] DO Work Phone: Comment on above: Reference Range: 13. 5 - 17.5 MCHC (RBC) [Mass/Vol] 29.4 g/dL below low threshold See Below [place] [address] DO Work Phone: Comment on above: Reference Range: 32. 0 - 36.0 MCV (RBC) [Entitic vol] 97 fL 80 - 100 [place] [address] DO Work Phone: Platelets (Bld) [#/Vol] 370 10*3/uL 150 - 450 [place] [address] DO Work Phone: RBC (Bld) [#/Vol] 3.55 {x10E12/L} below low threshold See Below [place] [address] DO Work Phone: Comment on above: Reference Range: 4.5 0 - 5.90 WBC (Bld) [#/Vol] 10.9 10*3/uL 4.4 - 11.3 [place] [address] DO Work Phone: No Panel Informationon 02-04 13 {mL/min/1.73m2} Abnormal >90 [place] [address] DO Work Phone: Comment on above: CALCULATIONS OF ALEJANDRA MATED GFR ARE PERFORMED USING THE 2020 CKD-EPI STUDY REFIT EQUATION WITHOUT THE RACE VARIABLE FOR THE IDMS-TRACEABLE CREATININE METHODS.https://jasn.asnjournals.org/content//A SN.7905855121 Tobacco Screening.on 023 Fall risk assessment a) No falls within the last year [place] [address] DO Work Phone: Tobacco use status CPHS b) No [place] [address] DO Work Phone: Office Visit (Urology)on Follow-up visit Diagnoses/Problems Assessed CKD (chronic kidney disease) (585.9) (N18.9) Hydronephrosis (591) (N13.30) Former tobacco use (V15.82) (Z87.891) Orders SocHx: Former tobacco use Tobacco Use Screening; Status:Complete; Done: [id number] Perform:Not Applicable;Ordered; For:SocHx: Former tobacco use; Ordered By:Tari Jade; Patient Discussion/Summary .OP note reviewed Path report reviewed. NO MALIGNANCY Options discussed. Pros/cons of tx options reviewed. Questions answered WIll attempt Left sided stent and Change R Contionue Jamison for NOW Labs reviewed CT and U/S reviewed Lifestyle change to help prevent UTIs discussed. Encouraged fluid intake. Hospital notes reviewed F/U Cysto and Right Stent change and ATTEMPT LEFT STENT Chief Complaint follow up after hospital stay History of Present IllnessPatient is here for surgery f/u. Hx of hydro. S/P right stent placement (UNABLE TO PLACE LEFT) and bladder tissue resection on 11/23/22.Pathology was BENIGN... Recent CR 4.88 (01/22) BUN 51 (01/22) Previous labs 8.60 on 11/29/22. Prior CR was 15.08 on 11/22/22. Cytology showed no malignant cells. Path report showed chronic inflammation cells. Patient has jamiosn and was changed when inpatient 2 weeks ago. F/U U/S showed resolution of R [place] but Persistent L [place] with atrophy. Review of Systems Constitutional: No fever, No chills. Eye: Negative. Ear/Nose/Mouth/Throat: Negative. Respiratory: No shortness of breath, No cough. Cardiovascular: No chest pain, No peripheral edema. Gastrointestinal: No nausea, Genitourinary: Negative except as documented in history of present illness. Hematology/Lymphatics: Patient denies being on blood thinners.. Endocrine: Negative. Immunologic: Not immunocompromised. Musculoskeletal: Negative Integumentary: Negative. Neurologic: Alert and oriented X4. Psychiatric: Negative. Active Problems Problems CKD (chronic kidney disease) (585.9) (N18.9) Hydronephrosis (591) (N13.30) Surgical History Problems History of Ureteral stent placement Family History Mother No pertinent family history Social History Problems Former tobacco use (V15.82) (Z87.891) No alcohol use Allergies Medication iodine Recorded By: Christina Laurent; 12/09/2022 11:20:24 AM Current Meds Medication NameInstruction Acetaminophen 325 MG Oral Tablet Isosorbide Mononitrate 30 MG TB24 Micafungin Sodium 100 MG Intravenous Solution Reconstituted Multi-Vitamin Oral Tablet Ralston Bismuth 262 MG CHEW Tuberculin Syringe 1 ML MISC Physical Exam A/O x 3 in No apparent distress Constitutional: General appearance normal Respiratory: Respiratory effort is normal Gastrointestinal:Abdom en is not tender Genitourinary: Kidneys: Not palpable Bilaterally Bladder: Not palpable or tender Scrotum: No mass. No Hydrocele Epididymis: No spermatocele. Not tender Testicles: no mass Urethra: No Discharge Penis: WNL...No lesions Prostate: deferred Jamison draining Cloudy urine Signatures Electronically signed by : John Bah II, MD; Jan 29 2023 2:58PM EST (Author) Normal [employer] BASIC METABOLIC PANELon 08- Anion gap [Moles/Vol] 14 mmol/L Normal 10 - 20 [facility] Comment on above: Performed By: #### T RP #### [address] [address] Calcium [Mass/Vol] 8.5 mg/dL Low 8.6 - 10.3 [facility] Comment on above: Performed By: #### T RP #### [address] [address] Chloride [Moles/Vol] 107 mmol/L Normal 98 - 107 [facility] Comment on above: Performed By: #### T RP #### [address] [address] Creatinine [Mass/Vol] 4.88 mg/dL High 0.50 - 1.30 [facility] Comment on above: Performed By: #### T RP #### [address] [address] GFR/1.73 sq M.predicted among non-blacks MDRD (S/P/Bld) [Vol rate/Area] 12 mL/min/{1.73_m2} Abnormal >[address] [facility] Comment on above: Result Comment: CALC ULATIONS OF ESTIMATED GFR ARE PERFORMED USING THE 2020 CKD-EPI STUDY REFIT EQUATION WITHOUT THE RACE VARIABLE FOR THE IDMS-TRACEABLE CREATININE METHODS. https://jasn.asnjournals.org/content//ASN.23244 75806 Performed By: #### T RPHS #### [address] [address] Glucose [Mass/Vol] 90 mg/dL Normal 74 - 99 [facility] Comment on above: Performed By: #### T RPHS #### [address] [address] HCO3 (Bld) [Moles/Vol] 22 mmol/L Normal 21 - 32 [facility] Comment on above: Performed By: #### T RPHS #### [address] [address] Potassium [Moles/Vol] 4.0 mmol/L Normal 3.5 - 5.3 [facility] Comment on above: Performed By: #### T RP #### [address] [address] Sodium [Moles/Vol] 139 mmol/L Normal 136 - 145 [facility] Comment on above: Performed By: #### T RPHS #### [address] [address] Urea nitrogen [Mass/Vol] 51 mg/dL High 6 - [address] [facility] Comment on above: Performed By: #### T RPHS #### [address] [address] CBCon 01-11-2023 Erythrocyte distribution width (RBC) [Ratio] 13.9 % Normal 11.5 - 14.[address] [facility] Comment on above: Performed By: #### C BC #### [address] [address] Hematocrit (Bld) [Volume fraction] 26.6 % Low 41.0 - 52.[address] [facility] Comment on above: Performed By: #### C BC #### [address] [address] Hemoglobin (Bld) [Mass/Vol] 8.1 g/dL Low 13.5 - 17.[address] [facility] Comment on above: Performed By: #### C BC #### [address] [address] MCHC (RBC) [Mass/Vol] 30.5 g/dL Low 32.0 - 36.0 [facility] Comment on above: Performed By: #### C BC #### [address] [address] MCV (RBC) [Entitic vol] 97 fL Normal 80 - [address] [facility] Comment on above: Performed By: #### C BC #### [address] [address] Platelets (Bld) [#/Vol] 249 10*3/uL Normal 150 - [address] [facility] Comment on above: Performed By: #### C BC #### [address] [address] RBC 2.75 x10E12/L Low 4.50 - 5.[address] [facility] Comment on above: Performed By: #### C BC #### [address] [address] WBC (Bld) [#/Vol] 6.0 10*3/uL Normal 4.4 - 11.3 [facility] Comment on above: Performed By: #### C BC #### [address] [address] Discharge [id number] Discharge Profile2 Discharge Orders: Anticipated Discharge Date: Anticipated Discharge [id number] Anticipated Discharge Time11:08 Code Status: Code Status at Discharge: Full Code DNR Order Additional Instructions (peds only): Catheter Care: Typeindwelling Catheter Caresoap and water Date Last Ypavadn7201/09/2023 Additional Orders: Additional Instructions Discharge plan Resume home medications, lower your allopurinol to 50mg PO every other day until you discuss with your pcp because of the impaired renal function Start trazodone at bedtime for insomnia Start bactrim 500 mg p.o. twice daily x5 days renal dosed Follow-up with primary care physician within 2 weeks postdischarge Follow-up with Dr. Bah within 2 weeks postdischarge for chronic Jamison Follow-up with Dr. De León within 2 weeks postdischarge for chronic kidney disease Call 911 or go to nearest ED if symptoms worsen or persist use assistive device when ambulating as needed to minimize risk of falls Call Provider If (Homegoing Patients): Breathing faster than normal. Breathing harder than normal or having retractions. Fever of 100.4 F (38 C) or higher. Temperature is greater than 102 degrees. Chills. Drinking less than normal. Not being able to go 4-6 hours between albuterol treatments. Urinating less than normal, over 1 day. Urinating less than 4 times per day. Acting very sleepy and difficult to awaken. Vomiting (throwing up) and not able to eat or drink for 12 hours. 3 or more loose, watery bowel movements in 24 hours (diarrhea). Any new concerning symptoms. Hospital Course (Home Care/Gold Form): Hospital Course: Hospital Course: include significant abnormal lab values 78-year-old male with history of hypertension, sleep apnea, obesity, hypothyroidism, gout, hyperlipidemia, depression, prostate cancer s/p prostatectomy, bladder tumor, ureteral stricture, chronic kidney disease presented with generalized weakness, near syncopal episode, possible UTI, deconditioning and recent viral common cold while COVID-19 test negative here Anemia of chronic disease likely During the hospitalization you were seen by Dr. De León for chronic kidney disease he recommended following up with him within 2 weeks postdischarge. He also had pneumonia and a UTI. You were treated with IV Rocephin which was changed to Augmentin renal dosed on discharge for 5 additional days follow-up with Dr. Bah for chronic Jamison within 2 weeks postdischarge follow-up primary care physician within 2 weeks postdischarge. Call 911 or go to nearest ED if symptoms worsen or persist. Home Care Orders: Face to Face Certification: Home Care Services Needed: yes Provider to Follow After Discharge: PCP Skilled Disciplines Ordered: RN/JAVA FLEX DEVELOPER, PT, OT, Home Health Aide Face to Face Encounter Completed: yes Date of Encounter: 11-Jan-2023 Medical Necessity for Homecare (based on clinical findings): Clinical findings support the need for skilled nurse to monitor signs and symptoms of adverse events from prostate cancer. The services are medically necessary. Homebound Status: homebound Homebound Due to:: Based on my clinical findings this patient is home down due to extreme dyspnea with ambulation Face to Face Completed and Home Care Orders Reviewed: I certify that this patient is under my care. I have reviewed the information included in the face to face and certify that the home care services ordered are medically necessary for this patient. Home Care Services: Home Care Skilled ServiceRehab (PT/OT/SP eval and treat) [facility] FINAL REVIEW of Orders: Final Review: Final Review of Medication Reconciliation and Orders Completedby HAND BOOTMAKER CAILIN Boone at 11-Jan-2023 12:21:55 Appointments: Follow-Up Appointment 01: Physician/Dept/Service Ata Hernandez Reason for ReferralPosthospitaliz ation Call to Schedule in2 weeks [id number] [place] [address] Phone [phone] CommentsPlease call and schedule an appointment within 2 weeks of your hospital Discharge Follow-Up Appointment 02: Physician/Dept/Service Dr. De León Reason for ReferralChronic renal disease Call to Schedule in2 weeks [id number] [place] [address] Phone [phone] CommentsPlease call and schedule an appointment within 2 weeks of your hospital Discharge Follow-Up Appointment 03: Physician/Dept/Service Dr Bah Reason for Referralchronic jamison Call to Schedule in2 weeks [id number] [place] [address] Phone [phone] CommentsPlease call and schedule an appointment within 2 weeks of your hospital Discharge Electronic Signatures: Tessy Moreland (UNIT SECT) (Signed 11-Jan-2023 11:19) Authored: Discharge Orders, Appointments Adele Velazquez (HAND BOOTMAKER-CLINICAL TRIAL HEAD) (Signed 11-Jan-2023 12:2 (more content not included)... Normal [facility] Laboratory - Chemistry and C hemistry - challengeon 01-11-2023 Anion gap [Moles/Vol] 14 mmol/L 10 - 20 - Nephrology- [facility] [place] 3 DO Work Phone: Calcium [Mass/Vol] 8.5 mg/dL below low threshold 8.6 - 10.3 -Nephrology- [facility] [place] 3 DO Work Phone: Chloride [Moles/Vol] 107 mmol/L 98 - 107 [place] [address] [place] Work Phone: CO2 [Moles/Vol] 22 mmol/L 21 - 32 -[place] [address] [place] Work Phone: Creatinine [Mass/Vol] 4.88 mg/dL above high threshold See Below [place] [address] DO Work Phone: Comment on above: Reference Range: 0.5 0 - 1.30 Glucose [Mass/Vol] 90 mg/dL 74 - 99 [place] [address] DO Work Phone: Potassium [Moles/Vol] 4.0 mmol/L 3.5 - 5.3 [place] [address] DO Work Phone: Sodium [Moles/Vol] 139 mmol/L 136 - 145 [place] [address] DO Work Phone: Urea nitrogen [Mass/Vol] 51 mg/dL above high threshold 6 - 23 [place] [address] DO Work Phone: Laboratory - Hematology and Cell countson 01-11-2023 Erythrocyte distribution width (RBC) [Ratio] 13.9 % See Below [place] [address] DO Work Phone: Comment on above: Reference Range: 11. 5 - 14.5 Hematocrit (Bld) [Volume fraction] 26.6 % below low threshold See Below [place] [address] DO Work Phone: Comment on above: Reference Range: 41. 0 - 52.0 Hemoglobin (Bld) [Mass/Vol] 8.1 g/dL below low threshold See Below [place] [address] DO Work Phone: Comment on above: Reference Range: 13. 5 - 17.5 MCHC (RBC) [Mass/Vol] 30.5 g/dL below low threshold See Below [place] [address] DO Work Phone: Comment on above: Reference Range: 32. 0 - 36.0 MCV (RBC) [Entitic vol] 97 fL 80 - 100 [place] [address] DO Work Phone: Platelets (Bld) [#/Vol] 249 10*3/uL 150 - 450 [place] [address] DO Work Phone: RBC (Bld) [#/Vol] 2.75 {x10E12/L} below low threshold See Below [place] [address] DO Work Phone: Comment on above: Reference Range: 4.5 0 - 5.90 WBC (Bld) [#/Vol] 6.0 10*3/uL 4.4 - 11.3 [place] [address] DO Work Phone: No Panel Informationon 01-11 12 {mL/min/1.73m2} Abnormal >90 [place] [address] DO Work Phone: Comment on above: CALCULATIONS OF ALEJANDRA MATED GFR ARE PERFORMED USING THE 2020 CKD-EPI STUDY REFIT EQUATION WITHOUT THE RACE VARIABLE FOR THE IDMS-TRACEABLE CREATININE METHODS.https://jasn.asnjournals.org/content//A SN.0310892135 Order Reconciliationon 01-11 Order Reconciliation Page 1 Discharge Reconciliation Document Reconciliation Type: Discharge requested on behalf of Adele Velazquez (Advanced Practice Nurse) done by Adele Velazquez ([facility] [employer]) Discharge - Reconciliation: 11-Jan-2023 11:07 by: Adele Velazquez ([employer]) Discharge - Reset to Incomplete: 11-Jan-2023 11:48 by: Adele Velazquez ([facility]) Discharge - Reconciliation: 11-Jan-2023 11:49 by: Adele Velazquez ([facility]) Discharge - Reset to Incomplete: 11-Jan-2023 12:20 by: Adele Velazquez ([facility]) Discharge - Reconciliation: 11-Jan-2023 12:21 by: Adele Velazquez ([facility]) Home Medications EnteredHOME MEDICATIONS AT DISCHARGE DateReconciliation Comment/ Additional Information acetaminophen 325 mg oral tablet 2 tab(s) orally every 4 hours, As needed, Temp Greater Than or Equal to 38.0 C 29-Nov-2022 12:25 acetaminophen 325 mg oral tablet 2 tab(s) orally every 4 hours, As needed, Temp Greater Than or Equal to 38.0 C 29-Nov-2022 12:25 acetaminophen 325 mg oral tablet is continued as acetaminophen 325 mg oral tablet allopurinol 100 mg oral tablet 1 tab(s) orally once a day 08-Jan-2023 17:16 Discontinued; Discontinue from ORM calcitriol 0.25 mcg oral capsule 1 cap(s) orally once a day 08-Jan-2023 17:14 calcitriol 0.25 mcg oral capsule 1 cap(s) orally once a day 08-Jan-2023 17:14 calcitriol 0.25 mcg oral capsule is continued as calcitriol 0.25 mcg oral capsule isosorbide mononitrate 30 mg oral tablet, extended release 1 tab(s) orally once a day (in the morning) 08-Jan-2023 17:14 isosorbide mononitrate 30 mg oral tablet, extended release 1 tab(s) orally once a day (in the morning) 08-Jan-2023 17:14 isosorbide mononitrate 30 mg oral tablet, extended release is continued as isosorbide mononitrate 30 mg oral tablet, extended release Multiple Vitamins oral tablet 1 tab(s) orally once a day 20-Nov-2022 10:04 Multiple Vitamins oral tablet 1 tab(s) orally once a day 20-Nov-2022 10:04 Multiple Vitamins oral tablet is continued as Multiple Vitamins oral tablet NIFEdipine 30 mg oral tablet, extended release 1 tab(s) orally once a day 08-Jan-2023 17:16 NIFEdipine 30 mg oral tablet, extended release 1 tab(s) orally once a day 08-Jan-2023 17:16 NIFEdipine 30 mg oral tablet, extended release is continued as NIFEdipine 30 mg oral tablet, extended release Procrit 20,000 units/mL injectable solution 1 dose(s) injectable every 2 weeks. Patient has not started yet as of 01/08/202308-Jan-2023 17:15 Procrit 20,000 units/mL injectable solution 1 dose(s) injectable every 2 weeks. Patient has not started yet as of 01/08/202308-Jan-2023 17:15 Procrit 20,000 units/mL injectable solution is continued as Procrit 20,000 units/mL injectable solution sodium bicarbonate 650 mg oral tablet 1 tab(s) orally once a day 08-Jan-2023 17:14 sodium bicarbonate 650 mg oral tablet 1 tab(s) orally once a day 08-Jan-2023 17:14 sodium bicarbonate 650 mg oral tablet is continued as sodium bicarbonate 650 mg oral tablet Current OrdersDateHOME MEDICATIONS AT DISCHARGE DateReconciliation Comment/ Additional Information Acetaminophen Tablet (TYLENOL)DOSE = 650 mg Oral Every 4 Hours, PRN Pain - Mild (1-3) 09-Jan-2023 20:53 Acetaminophen is not required Acetaminophen Tablet (TYLENOL)DOSE = 650 mg Oral Every 4 Hours, PRN Temp Greater Than or Equal to 38.0 C 08-Jan-2023 20:01 Acetaminophen is not required Allopurinol Tablet (ZYLOPRIM)DOSE = 100 mg Oral Every 24 Hours 09-Jan-2023 08:13 Allopurinol is not required Calcitriol Capsule (ROCALTROL)DOSE = 0.25 microgram(s) Oral Daily 08-Jan-2023 20:17 Calcitriol is not required cefTRIAXone 1 gram/ Dextrose 5% IVPB Premixed Soln 50 mL (ROCEPHIN)Every 24 HoursRecommended Infusion Time: 30 minute(s) 09-Jan-2023 11:37 cefTRIAXone 1 gram/ Dextrose 5% IVPB Premixed Soln 50 mL is not required Heparin SubCutaneous DOSE = 5,000 unit(s) SubCutaneous Every 8 HoursNotes from Pharmacy: Note Concentration Prior to Administration 08-Jan-2023 20:01 Heparin SubCutaneous is not required Isosorbide Mononitrate Extended Release Tablet, Extended Release (IMDUR)DOSE = 30 mg Oral Daily 08-Jan-2023 20:17 Isosorbide Mononitrate Extended Release is not required Lactated Ringers Infusion IV Bag Volume = 1,000 mL Run at: 75 mL/hr IntraVenous 08-Jan-2023 19:03 Lactated Ringers Infusion is not required NIFEdipine (PROCARDIA XL) Extended Release Tablet, Extended ReleaseDOSE = 30 mg Oral Daily 08-Jan-2023 20:17 NIFEdipine (PROCARDIA XL) Extended Release is not required Ondansetron Injectable (ZOFRAN)DOSE = 4 mg IntraVenous Push Every 4 Hours, PRN Nausea and/or Vomiting 08-Jan-2023 20:01 Ondansetron Injectable is not required Sodium Bicarbonate TabletDOSE = 650 mg Oral Every 12 Hours 09-Jan-2023 11:29 Sodium Bicarbonate is not required Sodium Chloride 0.9% Injectable Flush via Peripheral LineVolume = 10 mL IntraVenous Flush Every 8 Hours and as Needed 08-Jan-2023 20:01 Sodium Chloride 0.9% Injectab (more content not included)... Normal [facility] CBCon 01-10-2023 Erythrocyte distribution width (RBC) [Ratio] 14.0 % Normal 11.5 - 14.[address] [facility] Comment on above: Performed By: #### C BC #### [address] [address] Hematocrit (Bld) [Volume fraction] 25.7 % Low 41.0 - 52.[address] [facility] Comment on above: Performed By: #### C BC #### [address] [address] Hemoglobin (Bld) [Mass/Vol] 7.8 g/dL Low 13.5 - 17.[address] [facility] Comment on above: Performed By: #### C BC #### [address] [address] MCHC (RBC) [Mass/Vol] 30.4 g/dL Low 32.0 - 36.0 [facility] Comment on above: Performed By: #### C BC #### [address] [address] MCV (RBC) [Entitic vol] 97 fL Normal 80 - [address] [facility] Comment on above: Performed By: #### C BC #### [address] [address] Platelets (Bld) [#/Vol] 225 10*3/uL Normal 150 - [address] [facility] Comment on above: Performed By: #### C BC #### [address] [address] RBC 2.66 x10E12/L Low 4.50 - 5.[address] [facility] Comment on above: Performed By: #### C BC #### [address] [address] WBC (Bld) [#/Vol] 6.7 10*3/uL Normal 4.4 - 11.3 [facility] Comment on above: Performed By: #### C BC #### [place] [id number] COMPREHENSIVE PANELon 2022 Albumin [Mass/Vol] 3.2 g/dL Low 3.4 - 5.0 [facility] Comment on above: Performed By: #### T RP #### [address] [address] ALP [Catalytic activity/Vol] 62 U/L Normal 33 - [address] [facility] Comment on above: Performed By: #### T RP #### [address] [address] ALT [Catalytic activity/Vol] 10 U/L Normal 10 - [address] [facility] Comment on above: Result Comment: Rhea ents treated with Sulfasalazine may generate falsely decreased results for ALT. Performed By: #### T RP #### [address] [address] Anion gap [Moles/Vol] 13 mmol/L Normal 10 - 20 [facility] Comment on above: Performed By: #### T RP #### [address] [address] AST [Catalytic activity/Vol] 11 U/L Normal 9 - [address] [facility] Comment on above: Performed By: #### T RP #### [place] [id number] Bilirubin [Mass/Vol] 0.3 mg/dL Normal 0.0 - 1.2 [facility] Comment on above: Performed By: #### T RPHS #### [address] [address] Calcium [Mass/Vol] 8.3 mg/dL Low 8.6 - 10.3 [facility] Comment on above: Performed By: #### T RPHS #### [address] [address] Chloride [Moles/Vol] 108 mmol/L High 98 - 107 [facility] Comment on above: Performed By: #### T RPHS #### [address] [address] Creatinine [Mass/Vol] 5.01 mg/dL High 0.50 - 1.30 [facility] Comment on above: Performed By: #### T RPHS #### [address] [address] GFR/1.73 sq M.predicted among non-blacks MDRD (S/P/Bld) [Vol rate/Area] 11 mL/min/{1.73_m2} Abnormal >[address] [facility] Comment on above: Result Comment: CALC ULATIONS OF ESTIMATED GFR ARE PERFORMED USING THE 2020 CKD-EPI STUDY REFIT EQUATION WITHOUT THE RACE VARIABLE FOR THE IDMS-TRACEABLE CREATININE METHODS. https://jasn.asnjournals.org/content//ASN.33488 20[address] Performed By: #### T RPHS #### [address] [address] Glucose [Mass/Vol] 85 mg/dL Normal 74 - 99 [facility] Comment on above: Performed By: #### T RPHS #### [address] [address] HCO3 (Bld) [Moles/Vol] 22 mmol/L Normal 21 - 32 [facility] Comment on above: Performed By: #### T RPHS #### [address] [address] Potassium [Moles/Vol] 4.2 mmol/L Normal 3.5 - 5.3 [facility] Comment on above: Performed By: #### T RPHS #### [address] [address] Protein [Mass/Vol] 6.5 g/dL Normal 6.4 - 8.2 [facility] Comment on above: Performed By: #### T RPHS #### [address] [address] Sodium [Moles/Vol] 139 mmol/L Normal 136 - 145 [facility] Comment on above: Performed By: #### T RPHS #### [address] [address] Urea nitrogen [Mass/Vol] 55 mg/dL High 6 - [address] [facility] Comment on above: Performed By: #### T RPHS #### [address] [address] Daily Progress Note-General Internal Medicineon 01-10-2023 Daily Progress Note-General Internal Medicine Consult Type: subsequent visit/care Service: General Internal Medicine Subjective Data: GENET BOOTH is a 78 year old Male who is Hospital Day # 3. Additional Information: Patient resting quietly in bed. He is asking about discharge. reviewed with him urine culture returned showing contamination. Refuses to have Jamison changed out as it was changed during admission. States Jamison changes are traumatic for him and extremely painful and take multiple tries. Jamison draining cloudy yellow urine but is clear than yesterday's assessment. Verbalizes he did not sleep well overnight. Plan To increase activity today Objective Data: Objective Information: T PRBPMAPSpO2 [id number]/6692% Date/Time01/10 7: 7: 7: 7: 7:58 Range(36.3C - 37.4C ) (66 - 89 ) (18 - 18 ) (102 - 134 )/ (61 - 67 ) (92% - 96% ) Highest temp of 37.4 C was recorded at 01/09 5:19 Pain reported at 01/10 8:00: 0 = None ---- Intake and Output ----- [facility] 10, [facility]23 6:00 [id number] Jan 09, 2023 10:00 [id number] Jan 09, 2023 2:00 [id number] The Intake and Output Totals for the last 24 hours are: [facility]Out[facility] [id number] Physical Exam Narrative: Physical Exam: General Appearance: AAO x 3, not in acute distress Skin: skin color pink, warm, and dry; no suspicious rashes or lesions Eyes : PERRL, EOM's intact ENT: mucous membranes pink and moist Neck: normocephalic Respiratory: lungs clear to auscultation anteriorly; no wheezing, rhonchi, or crackles. on room air Heart: regular rate and rhythm. telemetry shows SR Abdomen: Nondistended, positive bowel sounds x4, soft, nontender Extremities: no edema noted to lower extremities Peripheral pulses: normal x4 extremities Neuro: alert, coherent and conversant, no focal motor deficits Medication: Medications: Continuous Medications 1. Lactated Ringers Infusion: 1000 mL IntraVenous Scheduled Medications 1. Allopurinol: 100 mg Oral Every 24 Hours 2. Calcitriol: 0.25 microgram(s) Oral Daily 3. cefTRIAXone 1 gram/ Dextrose 5% IVPB Premixed Soln 50 mL: 50 mL IntraVenous Piggyback Every 24 Hours 4. Heparin SubCutaneous: 5000 unit(s) SubCutaneous Every 8 Hours 5. Isosorbide Mononitrate Extended Release: 30 mg Oral Daily 6. NIFEdipine (PROCARDIA XL) Extended Release: 30 mg Oral Daily 7. Sodium Bicarbonate: 650 mg Oral Every 12 Hours 8. traZODone: 50 mg Oral At Bedtime PRN Medications 1. Acetaminophen: 650 mg Oral Every 4 Hours 2. Acetaminophen: 650 mg Oral Every 4 Hours 3. Ondansetron Injectable: 4 mg IntraVenous Push Every 4 Hours 4. Sodium Chloride 0.9% Injectable Flush: 10 mL IntraVenous Flush Every 8 Hours and as Needed 5. Zolpidem: 5 mg Oral At Bedtime Recent Lab Results: Results: CBC: 01/10/2023 04:46 \ Hgb / \ 7.8 L / WBC Plt 6.7 225 / Hct \ / 25.7 L \ RBC: 2.66 L MCV: 97 CMP: 01/10/2023 04:46 NA+ Cl- BUN / 139 108 H 55 H / Glucose ----- 85 K+ HCO3- Creat \ 4.2 22 5.01 H \ \ T Bili / \ 0.3 / AST x ---- x ALT 11 x ---- x 10 / Alk P \ / 62 \ Calcium : 8.3 L Anion Gap : 13 Albumin : 3.2 L T Protein : 6.5 I have reviewed these laboratory results: Iron + TIBC, Serum 10-Jan-2023 04:46:00 ResultValue Iron, Serum 44 Total Iron Binding Capacity 199 L % Saturation 22 L Ferritin, Serum 10-Jan-2023 04:46:00 ResultValue Ferritin, Serum 352 H Procalcitonin, Serum 09-Jan-2023 05:01:00 ResultValue Procalcitonin, Serum 0.21 A Thyroid Stimulating Hormone, Serum 09-Jan-2023 05:01:00 ResultValue Thyroid Stimulating Hormone, Serum 3.73 Urinalysis with Culture if Indicated 08-Jan-2023 13:16:00 ResultValue Color, Urine Yellow Reference Range: STRAW,YELLOW Appearance, Urine HAZY Specific Zoar, Urine 1.013 pH, Urine 6.0 Protein, Urine >=500 (3+) A Glucose, Urine 50(TRACE) A Blood, Urine MODERATE (2+) A Ketones, Urine NEGATIVE Bilirubin, Urine NEGATIVE Urobilinogen, Urine <2.0 Nitrite, Urine Negative Leukocyte Esterase, Urine LARGE (3+) A Urinalysis, Microscopic 08-Jan-2023 13:16:00 ResultValue White Cells >182 A WBC Clumps MANY Red Blood Cells >182 A Epithelial Cells, Squamous 2 Bacteria, Urine 1+ A Culture, Urine 08-Jan-2023 13:16:00 ResultValue Culture, Urine MULTIPLE ORGANISMS PRESENT, PROBABLE CONTAMINATION PLEASE REPEAT CULTURE. THIS REPORT CONTAINS ADDITIONAL INFORMATION NOT INCLUDED IN PREVIOUS FINAL REPORT. A Culture, Blood 08-Jan-2023 13:11:00 ResultValue Culture, Blood No Growth at 1 days Radiology Results: Results: Impression: Resolution of right hydronephrosis. Right ureteric stent present. Severe left-s (more content not included)... Normal [facility] Daily Progress Note-Nephrolo gyon 01-10-2023 Daily Progress Note-Nephrology Service: Nephrology Subjective Data: GENET BOOTH is a 78 year old Male who is Hospital Day # 3. Patient seen and examined at the bedside this morning He is resting comfortably in bed He states he is actually feeling better Has no major complaints currently his Jamison catheter is draining pretty clear urine at this time. Objective Data: Objective Information: T PRBPMAPSpO2 [id number]/6692% Date/Time01/10 7: 7: 7: 7: 7:58 Range(36.3C - 37.4C ) (66 - 89 ) (18 - 18 ) (102 - 134 )/ (61 - 67 ) (92% - 96% ) Highest temp of 37.4 C was recorded at 01/09 5:19 Pain reported at 01/10 8:00: 0 = None ---- Intake and Output ----- Mn/Dy/Year TimeIntakeOutputNet Jan 10, 2023 6:00 [id number] Jan 09, 2023 10:00 [id number] Jan 09, 2023 2:00 [id number] The Intake and Output Totals for the last 24 hours are: IntakeOutputNet [id number] Physical Exam by System: Constitutional: Awake, alert, oriented, no acute distress Eyes: Extraocular muscles intact ENMT: Moist mucous membranes Head/Neck: Normocephalic, atraumatic Respiratory/Thorax: Bilateral equal breath sounds Cardiovascular: Regular rate and rhythm Gastrointestinal: Soft, nontender, nondistended Genitourinary: Indwelling Jamison catheter Musculoskeletal: Resting comfortably in bed Extremities: No peripheral edema Neurological: Awake, alert, oriented Psychological: Calm Skin: Warm and dry Medication: Medications: Continuous Medications 1. Lactated Ringers Infusion: 1000 mL IntraVenous Scheduled Medications 1. Allopurinol: 100 mg Oral Every 24 Hours 2. Calcitriol: 0.25 microgram(s) Oral Daily 3. cefTRIAXone 1 gram/ Dextrose 5% IVPB Premixed Soln 50 mL: 50 mL IntraVenous Piggyback Every 24 Hours 4. Heparin SubCutaneous: 5000 unit(s) SubCutaneous Every 8 Hours 5. Isosorbide Mononitrate Extended Release: 30 mg Oral Daily 6. NIFEdipine (PROCARDIA XL) Extended Release: 30 mg Oral Daily 7. Sodium Bicarbonate: 650 mg Oral Every 12 Hours 8. traZODone: 50 mg Oral At Bedtime PRN Medications 1. Acetaminophen: 650 mg Oral Every 4 Hours 2. Acetaminophen: 650 mg Oral Every 4 Hours 3. Ondansetron Injectable: 4 mg IntraVenous Push Every 4 Hours 4. Sodium Chloride 0.9% Injectable Flush: 10 mL IntraVenous Flush Every 8 Hours and as Needed 5. Zolpidem: 5 mg Oral At Bedtime Recent Lab Results: Results: CBC: 01/10/2023 04:46 \ Hgb / \ 7.8 L / WBC Plt 6.7 225 / Hct \ / 25.7 L \ RBC: 2.66 L MCV: 97 CMP: 01/10/2023 04:46 NA+ Cl- BUN / 139 108 H 55 H / Glucose ----- 85 K+ HCO3- Creat \ 4.2 22 5.01 H \ \ T Bili / \ 0.3 / AST x ---- x ALT 11 x ---- x 10 / Alk P \ / 62 \ Calcium : 8.3 L Anion Gap : 13 Albumin : 3.2 L T Protein : 6.5 Assessment and Plan: Daily Risk Screen: Does patient have an indwelling urinary cathetern/a consulting service Comorbidities: ComorbidityOther Code Status: Code StatusFull Code Assessment: Chronic kidney disease with evolving baseline Urinary tract infection Anemia Hypertension Normal anion gap metabolic acidosis: Improved with sodium bicarbonate therapy Plan: He is on Rocephin covering him for urinary tract infection His renal function is stable This is likely going to be close to his baseline He is currently on lactated Ringer's which can continue however I do not expect much more improvement in his renal function Just recently his renal function was much worse with a creatinine over 10 Volume status appears stable so he can continue We will have to follow his anemia closely He can be discharged at any time from the renal standpoint He states he is not yet feeling back to his normal self and likely will want to stay through the weekend Please call with any further issues or needs Electronic Signatures: Tiana De León () (Signed 10-Jan-2023 11:24) Authored: Service, Subjective Data, Objective Data, Assessment and Plan, Note Completion Last Updated: 10-Jan-2023 11:24 by Tiana De León () Normal [facility] FERRITINon 01-10-2023 FERRITIN 352 ug/L High 20 - [address] [facility] Comment on above: Performed By: #### C BC #### [address] [address] Ferritin, Serumon 01-10-2023 Ferritin [Mass/Vol] 352 ug/L above high threshold 20 - 300 [facility]-Nephrology- [facility] 3 DO Work Phone: IRON + TIBCon 01-10-2023 % SATURATION 22 % Low 25 - [address] [facility] Comment on above: Performed By: #### I RONT #### [place] [address] [place] [address] Iron [Mass/Vol] 44 ug/dL Normal 35 - [address] [facility] Comment on above: Performed By: #### I ADRIÁNT #### [address] [address] TIBC 199 ug/dL Low 240 - [address] [facility] Comment on above: Performed By: #### I ADRIÁNT #### [address] [address] Laboratory - Chemistry and C hemistry - challengeon 01-10-2023 Albumin BCP dye [Mass/Vol] 3.2 g/dL below low threshold 3.4 - 5.0 [place] [address] DO Work Phone: ALP [Catalytic activity/Vol] 62 U/L 33 - 136 [place] [address] DO Work Phone: ALT With P-5'-P [Catalytic activity/Vol] 10 U/L 10 - 52 [place] [address] DO Work Phone: Comment on above: Patients treated wit h Sulfasalazine may generate falsely decreased results for ALT. Anion gap [Moles/Vol] 13 mmol/L 10 - 20 [place] [address] DO Work Phone: AST With P-5'-P [Catalytic activity/Vol] 11 U/L 9 - 39 [place] [address] DO Work Phone: Bilirubin [Mass/Vol] 0.3 mg/dL 0.0 - 1.2 [place] [address] DO Work Phone: Calcium [Mass/Vol] 8.3 mg/dL below low threshold 8.6 - 10.3 [place] [address] DO Work Phone: Chloride [Moles/Vol] 108 mmol/L above high threshold 98 - 107 [place] [address] DO Work Phone: CO2 [Moles/Vol] 22 mmol/L 21 - 32 [place] [address] DO Work Phone: Creatinine [Mass/Vol] 5.01 mg/dL above high threshold See Below [place] [address] DO Work Phone: Comment on above: Reference Range: 0.5 0 - 1.30 Glucose [Mass/Vol] 85 mg/dL 74 - 99 [place] [address] DO Work Phone: Iron [Mass/Vol] 44 ug/dL 35 - 150 [place] [address] DO Work Phone: Iron binding capacity [Mass/Vol] 199 ug/dL below low threshold 240 - 445 [place] [address] DO Work Phone: Potassium [Moles/Vol] 4.2 mmol/L 3.5 - 5.3 [place] [address] DO Work Phone: Protein [Mass/Vol] 6.5 g/dL 6.4 - 8.2 [place] [address] DO Work Phone: Sodium [Moles/Vol] 139 mmol/L 136 - 145 [place] [address] DO Work Phone: Urea nitrogen [Mass/Vol] 55 mg/dL above high threshold 6 - 23 [place] [address] DO Work Phone: Laboratory - Hematology and Cell countson 01-10-2023 Erythrocyte distribution width (RBC) [Ratio] 14.0 % See Below [place] [address] DO Work Phone: Comment on above: Reference Range: 11. 5 - 14.5 Hematocrit (Bld) [Volume fraction] 25.7 % below low threshold See Below [place] [address] DO Work Phone: Comment on above: Reference Range: 41. 0 - 52.0 Hemoglobin (Bld) [Mass/Vol] 7.8 g/dL below low threshold See Below [place] [address] DO Work Phone: Comment on above: Reference Range: 13. 5 - 17.5 MCHC (RBC) [Mass/Vol] 30.4 g/dL below low threshold See Below [place] [address] DO Work Phone: Comment on above: Reference Range: 32. 0 - 36.0 MCV (RBC) [Entitic vol] 97 fL 80 - 100 [place] [address] DO Work Phone: Platelets (Bld) [#/Vol] 225 10*3/uL 150 - 450 [place] [address] DO Work Phone: RBC (Bld) [#/Vol] 2.66 {x10E12/L} below low threshold See Below [place] [address] DO Work Phone: Comment on above: Reference Range: 4.5 0 - 5.90 WBC (Bld) [#/Vol] 6.7 10*3/uL 4.4 - 11.3 [place] [address] DO Work Phone: No Panel Informationon 01-10 22 % below low threshold 25 - 45 [place] [address] DO Work Phone: 11 {mL/min/1.73m2} Abnormal >90 [place] [address] DO Work Phone: Comment on above: CALCULATIONS OF ALEJANDRA MATED GFR ARE PERFORMED USING THE 2020 CKD-EPI STUDY REFIT EQUATION WITHOUT THE RACE VARIABLE FOR THE IDMS-TRACEABLE CREATININE METHODS.https://jasn.asnjournals.org/content/early/A SN.8015347915 BASIC METABOLIC PANELon 12-31 Anion gap [Moles/Vol] 15 mmol/L Normal 10 - 20 [facility] Comment on above: Performed By: #### B MP #### [address] [address] [address] Calcium [Mass/Vol] 8.1 mg/dL Low 8.6 - 10.3 [facility] Comment on above: Performed By: #### B MP #### [address] [address] Chloride [Moles/Vol] 104 mmol/L Normal 98 - 107 [facility] Comment on above: Performed By: #### B MP #### [address] [address] Creatinine [Mass/Vol] 5.11 mg/dL High 0.50 - 1.30 [facility] Comment on above: Performed By: #### B MP #### [address] [address] GFR/1.73 sq M.predicted among non-blacks MDRD (S/P/Bld) [Vol rate/Area] 11 mL/min/{1.73_m2} Abnormal >[address] [facility] Comment on above: Result Comment: CALC ULATIONS OF ESTIMATED GFR ARE PERFORMED USING THE 2020 CKD-EPI STUDY REFIT EQUATION WITHOUT THE RACE VARIABLE FOR THE IDMS-TRACEABLE CREATININE METHODS. https://jasn.asnjournals.org/content/early/ASN.79364 [address]9775 Performed By: #### B MP #### [address] [address] Glucose [Mass/Vol] 93 mg/dL Normal 74 - 99 [facility] Comment on above: Performed By: #### B MP #### [address] [address] HCO3 (Bld) [Moles/Vol] 21 mmol/L Normal 21 - 32 [facility] Comment on above: Performed By: #### B MP #### [address] [address] Potassium [Moles/Vol] 4.5 mmol/L Normal 3.5 - 5.3 [facility] Comment on above: Performed By: #### B MP #### [address] [address] Sodium [Moles/Vol] 135 mmol/L Low 136 - 145 [facility] Comment on above: Performed By: #### B MP #### [address] [address] Urea nitrogen [Mass/Vol] 58 mg/dL High 6 - [address] [facility] Comment on above: Performed By: #### B MP #### [address] [address] CBCon 01-09-2023 Erythrocyte distribution width (RBC) [Ratio] 14.1 % Normal 11.5 - 14.[address] [facility] Comment on above: Performed By: #### T [facility] #### [address] [address] Hematocrit (Bld) [Volume fraction] 26.3 % Low 41.0 - 52.[address] [facility] Comment on above: Performed By: #### T [facility] #### [address] [address] Hemoglobin (Bld) [Mass/Vol] 8.1 g/dL Low 13.5 - 17.[address] [facility] Comment on above: Performed By: #### T [facility] #### [address] [address] MCHC (RBC) [Mass/Vol] 30.8 g/dL Low 32.0 - 36.0 [facility] Comment on above: Performed By: #### T RP #### [address] [address] MCV (RBC) [Entitic vol] 95 fL Normal 80 - [address] [facility] Comment on above: Performed By: #### T RP #### [address] [address] Platelets (Bld) [#/Vol] 245 10*3/uL Normal 150 - [address] [facility] Comment on above: Performed By: #### T RP #### [address] [address] RBC 2.76 x10E12/L Low 4.50 - 5.[address] [facility] Comment on above: Performed By: #### T [facility] #### [address] [address] WBC (Bld) [#/Vol] 8.2 10*3/uL Normal 4.4 - 11.3 [facility] Comment on above: Performed By: #### T RP #### [address] [address] Consult-Nephrologyon 023 Consult-Nephrology Service: Service: Nephrology Consult: Consult requested by (Attending Name): Giovanni Pardo Reason: CHLOE History of Present Illness: HPI: GENET BOOTH is a 78 year old Male He presented to the emergency room secondary to not feeling well. He states that he had gotten a cold and has been feeling a little bit down He also noted that his urine output had dropped. He also notices that his urine output is darker than it has been He was having rehab at his house and the rehab person came to his house and told him that he did not look good and should come to the emergency room and so he presented to the hospital He was recently in the hospital and admitted secondary to an acute renal failure He then went to rehab and was in rehab at the [facility] He states that he has been doing well at home He denies swelling or urinary issues until just recently He denies shortness of breath but does have a cough and some congestion He has a past medical history of prostate cancer, bladder tumor, ureteral stricture, obesity, obstructive sleep apnea, hypertension, hypothyroidism, gout, hyperlipidemia and depression His past surgical history includes a prostatectomy and also had a stent placement Family history is negative for renal failure His social history includes that he lives at home independently he is a former smoker A full 10 point review of systems was obtained and is negative except for the HPI as above Review Family/Social History and ROS: Social History: Smoking Status: never smoker (1) Alcohol Use: denies(1) Drug Use: denies (1) Allergies: iodine: Unknown Objective: Objective Information: T PRBPMAPSpO2 [id number]/6494% Date/Time01/09 7: 7: 7: 7: 7:35 Range(36.6C - 37.7C ) (75 - 113 ) (15 - 22 ) (109 - 147 )/ (61 - 81 ) (93% - 95% ) Highest temp of 37.7 C was recorded at 01/08 23:33 Physical Exam by System: Constitutional: Awake, alert, oriented, no acute distress Eyes: Extraocular muscles intact ENMT: Moist mucous membranes Head/Neck: Normocephalic, atraumatic Respiratory/Thorax: Bilateral equal breath sounds Cardiovascular: Regular rate and rhythm Gastrointestinal: Soft, nontender, nondistended Musculoskeletal: Resting comfortably in bed Extremities: No peripheral edema Neurological: Awake, alert, oriented Psychological: Calm Skin: Warm and dry Medications: Medications: Continuous Medications 1. Lactated Ringers Infusion: 1000 mL IntraVenous 2. Sodium Chloride 0.9% Infusion: 1000 mL IntraVenous Scheduled Medications 1. Allopurinol: 100 mg Oral Every 24 Hours 2. Calcitriol: 0.25 microgram(s) Oral Daily 3. Heparin SubCutaneous: 5000 unit(s) SubCutaneous Every 8 Hours 4. Isosorbide Mononitrate Extended Release: 30 mg Oral Daily 5. NIFEdipine (PROCARDIA XL) Extended Release: 30 mg Oral Daily 6. Piperacillin - Tazobactam 2.25 grams/Iso-osmotic 50 mL Premix IVPB: 50 mL IntraVenous Piggyback Every 8 Hours 7. Sodium Bicarbonate: 650 mg Oral Every 24 Hours PRN Medications 1. Acetaminophen: 650 mg Oral Every 4 Hours 2. Ondansetron Injectable: 4 mg IntraVenous Push Every 4 Hours 3. Sodium Chloride 0.9% Injectable Flush: 10 mL IntraVenous Flush Every 8 Hours and as Needed 4. Zolpidem: 5 mg Oral At Bedtime Recent Lab Results: Results: I have reviewed these laboratory results: Complete Blood Count [Drawn 09-Jan-2023 05:01:00], Basic Metabolic Panel [Drawn 09-Jan-2023 05:01:00], Thyroid Stimulating Hormone, Serum [Drawn 09-Jan-2023 05:01:00], Coronavirus 2019 by PCR [Drawn 08-Jan-2023 14:07:00], Complete Blood Count + Differential [Drawn 08-Jan-2023 13:23:00], Comprehensive Metabolic Panel [Drawn 08-Jan-2023 13:23:00], PT + INR, Plasma [Drawn 08-Jan-2023 13:23:00], Activated Partial Thromboplastin Time [Drawn 08-Jan-2023 13:23:00], Troponin I, High Sensitivity [Drawn 08-Jan-2023 13:23:00], Lactate, Level [Drawn 08-Jan-2023 13:22:00], Urinalysis with Culture if Indicated [Drawn 08-Jan-2023 13:16:00], Urinalysis, Microscopic [Drawn 08-Jan-2023 13:16:00]. Radiology Results: Results: Xray Chest 2 View PA + Lateral [Jan 08 2023 2:15PM] CT Abdomen and Pelvis without Contrast [Jan 01 2023 5:07PM] Assessment: Chronic kidney disease with evolving baseline Urinary tract infection Anemia Hypertension Normal anion gap metabolic acidosis Plan: At this time he is on Zosyn covering him for infection Continue to follow cultures I will increase his sodium bicarbonate orally We canContinue lactated Ringer's for now He had a recent CT scan which showed the stent in his right ureter and the severe left hydronephrosis that is chronic We will repeat renal ultrasound now His renal function is actually improved from (more content not included)... Normal [facility] Daily Progress Note-General Internal Medicineon 01-09-2023 Daily Progress Note-General Internal Medicine Consult Type: subsequent visit/care Service: General Internal Medicine Subjective Data: GENET BOOTH is a 78 year old Male who is Hospital Day # 2. Additional Information: Patient resting quietly in bed. Complains of being tired and complains of left knee discomfort. Patient states knee discomfort is chronic. States his Jamison was changed on admission and that his urine is looking better.. Jamison intact and draining cloudy yellow urine with sediment Objective Data: Objective Information: T PRBPMAPSpO2 [id number]/6794% Date/Time01/09 15: 15: 15: 15: 15:00 Range(36.6C - 37.7C ) (75 - 113 ) (15 - 22 ) (102 - 147 )/ (61 - 81 ) (93% - 95% ) Highest temp of 37.7 C was recorded at 01/08 23:33 Pain reported at 01/09 8:00: 0 = None ---- Intake and Output ----- Mn/Dy/Year TimeIntakeOutputNet Jan 09, 2023 2:00 [id number] Jan 09, 2023 6:00 [id number] The Intake and Output Totals for the last 24 hours are: IntakeOutputNet [id number] Physical Exam Narrative: Physical Exam: General Appearance: AAO x 3, not in acute distress Skin: skin color pink, warm, and dry; no suspicious rashes or lesions Eyes : PERRL, EOM's intact ENT: mucous membranes pink and moist Neck: normocephalic Respiratory: lungs clear to auscultation anteriorly; no wheezing, rhonchi, or crackles. on room air Heart: regular rate and rhythm. telemetry shows SR Abdomen: Nondistended, positive bowel sounds x4, soft, nontender Extremities: no edema noted to lower extremities Peripheral pulses: normal x4 extremities Neuro: alert, coherent and conversant, no focal motor deficits Medication: Medications: Continuous Medications 1. Lactated Ringers Infusion: 1000 mL IntraVenous Scheduled Medications 1. Allopurinol: 100 mg Oral Every 24 Hours 2. Calcitriol: 0.25 microgram(s) Oral Daily 3. cefTRIAXone 1 gram/ Dextrose 5% IVPB Premixed Soln 50 mL: 50 mL IntraVenous Piggyback Every 24 Hours 4. Heparin SubCutaneous: 5000 unit(s) SubCutaneous Every 8 Hours 5. Isosorbide Mononitrate Extended Release: 30 mg Oral Daily 6. NIFEdipine (PROCARDIA XL) Extended Release: 30 mg Oral Daily 7. Sodium Bicarbonate: 650 mg Oral Every 12 Hours PRN Medications 1. Acetaminophen: 650 mg Oral Every 4 Hours 2. Ondansetron Injectable: 4 mg IntraVenous Push Every 4 Hours 3. Sodium Chloride 0.9% Injectable Flush: 10 mL IntraVenous Flush Every 8 Hours and as Needed 4. Zolpidem: 5 mg Oral At Bedtime Recent Lab Results: Results: CBC: 01/09/2023 05:01 \ Hgb / \ 8.1 L / WBC Plt 8.2 245 / Hct \ / 26.3 L \ RBC: 2.76 L MCV: 95 BMP: 01/09/2023 05:01 NA+ Cl- BUN / 135 L 104 58 H / Glucose ----- 93 K+ HCO3- Creat \ 4.5 21 5.11 H \ Calcium : 8.1 L Anion Gap : 15 I have reviewed these laboratory results: Procalcitonin, Serum 09-Jan-2023 05:01:00 ResultValue Procalcitonin, Serum 0.21 A Thyroid Stimulating Hormone, Serum 09-Jan-2023 05:01:00 ResultValue Thyroid Stimulating Hormone, Serum 3.73 Troponin I, High Sensitivity 08-Jan-2023 13:23:00 ResultValue Troponin I, High Sensitivity 7 Lactate, Level 08-Jan-2023 13:22:00 ResultValue Lactate, Level 2.0 Urinalysis with Culture if Indicated 08-Jan-2023 13:16:00 ResultValue Color, Urine Yellow Reference Range: STRAW,YELLOW Appearance, Urine HAZY Specific Zoar, Urine 1.013 pH, Urine 6.0 Protein, Urine >=500 (3+) A Glucose, Urine 50(TRACE) A Blood, Urine MODERATE (2+) A Ketones, Urine NEGATIVE Bilirubin, Urine NEGATIVE Urobilinogen, Urine <2.0 Nitrite, Urine Negative Leukocyte Esterase, Urine LARGE (3+) A Urinalysis, Microscopic 08-Jan-2023 13:16:00 ResultValue White Cells >182 A WBC Clumps MANY Red Blood Cells >182 A Epithelial Cells, Squamous 2 Bacteria, Urine 1+ A Radiology Results: Results: Conclusion: CONCLUSIONS: 1. Left ventricular systolic function is normal with a 60% estimated ejection fraction. 2. Spectral Doppler shows a pseudonormal pattern of left ventricular diastolic filling. QUANTITATIVE DATA SUMMARY: 2D MEASUREMENTS: Normal Ranges: Ao Root d: 3.80 cm (2.0-3.7cm) LAs: 4.00 cm (2.7-4.0cm) IVSd: 1.42 cm (0.6-1.1cm) LVPWd: 1.07 cm (0.6-1.1cm) LVIDd: 5.25 cm (3.9-5.9cm) LVIDs: 3.92 cm LV Mass Index: 117.3 g/m2 LV % FS 25.3 % LA VOLUME: Normal Ranges: LA Vol A4C: 32.1 ml (22+/-6mL/m2) LA Vol A2C: 42.4 ml LA Vol BP: 37.4 ml LA Vol Index A4C: 14.2ml/m2 LA Vol Index A2C: 18.7 ml/m2 LA Vol Index BP: 16.5 ml/m2 LA Area A4C: 14.1 cm2 LA Area A2C: 16.4 cm2 LA Major [place] A4C: 5.3 cm LA Major [place] A2C: 5.4 cm LA Volume Index: 13.8 ml/m2 LA Vol A4C: 31.4 ml LA (more content not included)... Normal [facility] Discharge Planning [id number] 01-09-2023 Discharge Planning Note2 [facility]: [facility] [place] of Choice Explainedyes Anticipated Discharge [id number] Discharge Planning 01/09/23 [facility]4 [facility] 24 Spoke with patient at bedside. Patient from home and lives alone in a house. Pt appears alert and oriented x3. Pt states ambulating independently without any assistive devices around the house. When pt leaves, pt states using a cane. Pt states using a transport service and is able to obtain meds and get to appointments. Pt states may need transportation s/u prior to d/c. Pt states that. PCP was supposed to give pt oxygen but has not received this yet. Requested following to order a home oxygen eval prior to pt d/c. Pt also states being active with [facility] but there is none listed. [facility] to confirm [facility]. No further needs at this time. Will continue to follow. Inna Mcintyre RN, BSN, [employer] Boring Machine Operator Helper (Doc [employer]) 01/09/23 1137 Got confirmation communication that pt is active with [facility] and are willing to take back on d/c. No further needs at this time. Will continue to follow. Inna Mcintyre RN, BSN, [employer] B[employer] Machine Operator Helper (Doc [employer]) 01/10/2023 1110 Care Transitions - Social Work: Pt reviewed in care rounds mtg this morning. Pt's orders converted to inpatient status this morning. SW to meet with Pt to review plan and [facility] IMM. Pt not yet medically ready for d/c; awaits consult with Dr. De León. Pt maybe ready for d/c in 24 hours. SW attached/send referral documents to [facility] via [employer]. Plan for Pt to d/c home with medically ready with [facility] services through [facility]. CT to follow and assist. XIMENA Britton 01/11/23@ 1103 am. TRISTAN note: Patient is ready for discharge today- but does not want to leave -as he does not have a way home and that his [facility] will not be out until friday. SW did talk with him and the 2 friends that he relies on are both out of town- one in [place] and one in [place]. He shared that he does not have a way home and explained that we can work on that. TRISTAN explained that if he chooses to stay-that his insurance may not pay. TRISTAN did talk with Air Carrier Operations Inspector and charge nurse and patient will be discharged home today. SW did meet with patient and explained that we will set up transportation to get him home. He also asked about his prescriptions as he said that he uses [facility] and they could not deliver until friday afternoon. Explained that he can get these here with our pharmacy and he was in agree ment with that. He said that he will call [facility] and leave a message so that he can get the meals to resume as he had cancelled this. Also explained that we will let [facility] know if his discharge. Tristan will send discharge orders thru [facility] to [facility]. Tristan also contacted Tavia Maldonado with [facility] to let her know that patient is going home. Patient to return home today with [facility] to resume. Suyapa SAUCEDA,SECURITY INSTALLATION TECHNICIAN Assessment: Discharge Planning Assessment [id number] Discharge Planning Assessment Completed byInna Mcintyre RN, BSN, [facility] Boring Machine Operator Helper (Doc Halo) Primary Contact Name and NumberDrew Martina perez [phone](1) Prior Level of Functioninguses a cane when going out Lives Withalone(1) Living Arrangementshouse(1) Stated Reason for AdmissionUTI(1) Arrived Fromemergency department (1) PCPDr. Osorio [facility] Currently Used at [place], [facility]/straight Resource/Environmental Concernsreliable transportation(1) Transportation Concernsrides, unreliable from others(1) [place] Services Anticipated at [facility](1) InsuranceAetna Anticipated Changes Related to Illnessnone Equipment Needed After Dischargeoxygen; respiratory supplies Anticipated Discharge Facility/Level of Care NeedsHome Care - Resume/Unrelated Transportation Home Who/HowTransport services needed Medication Adherence/Afford/Obtai nyes Discharge Transportation Needed from [facility] Electronic Signatures: Suyapa Gonzalez (SECURITY INSTALLATION TECHNICIAN) (Signed 11-Jan-2023 11:12) Authored: Discharge Planning Inna Mcintyre (RN) (Signed 09-Jan-2023 11:38) Authored: Discharge Planning, Assessment Janice Flores (SECURITY INSTALLATION TECHNICIAN) (Signed 10-Jan-2023 11:10) Authored: Discharge Planning Last Updated: 11-Jan-2023 11:12 by Suyapa Gonzalez (XIMENA) References: 1. Data Referenced From Patient Profile - Adult v2 08-Jan-2023 18:[address] [facility] Echocardiogramon 01-09-2023 Echocardiography [place] [phone] [phone], TRANSTHORACIC ECHOCARDIOGRAM REPORT Patient Name: GENET BOOTH Milo Physician: [id number] Nolan Carey MD Study Date: 01/09/2023 Referring GIOVANNI PARDO Physician: MRN/PID: [id number] PCP: Accession/Order#: [id number] [address] Location: Date of : 1945 Fellow: Gender: M Nurse: Dania Kwan RN Admit Date: 01/08/2023 Home Care Provider: Daily Burrell RDCS Admission Status: Observation - Additional Staff: Routine Height: 180.00 cm CC Report to: Weight: 108.00 kg Study Type: Echocardiogram BSA: 2.27 m2 Blood Pressure: 134 /66 mmHg Diagnosis/ICD: 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 Definity used as a contrast agent for endocardial border definition. Total contrast used for this procedure was 1.75cc mL via IV push. PHYSICIAN INTERPRETATION: Left Ventricle: Left ventricular systolic function is normal, with an estimated ejection fraction of 60%. There are no regional wall motion abnormalities. The left ventricular cavity size is normal. Spectral Doppler shows a pseudonormal pattern of left ventricular diastolic filling. Left Atrium: The left atrium is normal in size. Right Ventricle: The right ventricle is normal in size. There is normal right ventricular global systolic function. Right Atrium: The right atrium is normal in size. Aortic Valve: The aortic valve was not well visualized. There is no evidence of aortic valve regurgitation. The peak instantaneous gradient of the aortic valve is 10.2 mmHg. The mean gradient of the aortic valve is 5.0 mmHg. Mitral Valve: The mitral valve is normal in structure. There is no evidence of mitral valve regurgitation. Tricuspid Valve: The tricuspid valve is structurally normal. No evidence of tricuspid regurgitation. Pulmonic Valve: The pulmonic valve is not well visualized. There is no indication of pulmonic valve regurgitation. Pericardium: There is no pericardial effusion noted. Aorta: The aortic root is normal. CONCLUSIONS: 1. Left ventricular systolic function is normal with a 60% estimated ejection fraction. 2. Spectral Doppler shows a pseudonormal pattern of left ventricular diastolic filling. QUANTITATIVE DATA SUMMARY: 2D MEASUREMENTS: Normal Ranges: Ao Root d: 3.80 cm (2.0-3.7cm) LAs: 4.00 cm (2.7-4.0cm) IVSd: 1.42 cm (0.6-1.1cm) LVPWd: 1.07 cm (0.6-1.1cm) LVIDd: 5.25 cm (3.9-5.9cm) LVIDs: 3.92 cm LV Mass Index: 117.3 g/m2 LV % FS 25.3 % LA VOLUME: Normal Ranges: LA Vol A4C: 32.1 ml (22+/-6mL/m2) LA Vol A2C: 42.4 ml LA Vol BP: 37.4 ml LA Vol Index A4C: 14.2ml/m2 LA Vol Index A2C: 18.7 ml/m2 LA Vol Index BP: 16.5 ml/m2 LA Area A4C: 14.1 cm2 LA Area A2C: 16.4 cm2 LA Major [place] A4C: 5.3 cm LA Major [place] A2C: 5.4 cm LA Volume Index: 13.8 ml/m2 LA Vol A4C: 31.4 ml LA Vol A2C: 42.1 ml LV SYSTOLIC FUNCTION BY 2D PLANIMETRY (MOD): Normal Ranges: EF-A4C View: 67.1 % (>=55%) EF-A2C View: 54.4 % EF-Biplane: 61.7 % LV DIASTOLIC FUNCTION: Normal Ranges: MV Peak E: 0.81 m/s (0.7-1.2 m/s) MV Peak A: 0.88 m/s (0.42-0.7 m/s) E/A Ratio: 0.92 (1.0-2.2) MV lateral e' 0.07 m/s MV medial e' 0.06 m/s MITRAL VALVE: Normal Ranges: MV DT: 165 msec (150-240msec) AORTIC VALVE: Normal Ranges: AoV Vmax: 1.60 m/s (<=1.7m/s) AoV Peak P.2 mmHg (<20mmHg) AoV Mean P.0 mmHg (1.7-11.5mmHg) LVOT Max Preston: 1.26 m/s (<=1.1m/s) AoV VTI: 26.20 cm (18-25cm) LVOT VTI: 24.90 cm LVOT Diameter: 2.40 cm (1.8-2.4cm) AoV Area, VTI: 4.30 cm2 (2.5-5.5cm2) AoV Area,Vmax: 3.56 cm2 (2.5-4.5cm2) AoV Dimensionless Index: 0.95 RIGHT VENTRICLE: RV Basal 5.16 cm RV Mid 3.72 cm RV Major 7.8 cm TAPSE: 18.5 mm RV s' 0.13 m/s [id number] Nolan Carey MD Electronically signed on 01/09/2023 at 11:37:35 AM Final Normal [facility] Laboratory - Chemistry and C hemistry - challengeon 01-09-2023 Anion gap [Moles/Vol] 15 mmol/L 10 - 20 [facility] [place] [address] DO Work Phone: Calcium [Mass/Vol] 8.1 mg/dL below low threshold 8.6 - 10.3 [facility] [address] DO Work Phone: Chloride [Moles/Vol] 104 mmol/L 98 - 107 -[facility] DO Work Phone: CO2 [Moles/Vol] 21 mmol/L 21 - 32 [facility] DO Work Phone: Creatinine [Mass/Vol] 5.11 mg/dL above high threshold See Below [facility] 3 DO Work Phone: Comment on above: Reference Range: 0.5 0 - 1.30 Glucose [Mass/Vol] 93 mg/dL 74 - 99 [facility] [place]rologyZachary [place] [address] DO Work Phone: Potassium [Moles/Vol] 4.5 mmol/L 3.5 - 5.3 [place] [address] DO Work Phone: Procalcitonin [Mass/Vol] 0.21 ng/mL Abnormal <=0.07 [place] [address] DO Work Phone: Comment on above: Procalcitonin (PCT) results measured serially can aid in decision-making for antibiotic discontinuation in patients with suspected or confirmed sepsis in conjunction with additional clinical information. Antibiotic discontinuation may be considered with a change in PCT of >80% from the peak result or when PCT falls below 0.50 ng/mL. .Procalcitonin results should not be used in isolation but should be interpreted in conjunction with additional clinical and laboratory findings. Procalcitonin results should not beused to guide the initiation of antibiotic therapy. .Falsely low PCT values in the presence of bacterial infection may occur in early infection, with atypical pathogens, localized infections, and subacute infectious endocarditis. .Falsely elevated results outside of severe bacterial infection/sepsis may be seen in patients with renal failure or insufficiency, severe trauma or curry, recent major abdominal/cardiac surgery, acute multi-organ failure, rarely in patients with medullary thyroid carcinoma and rare neuroendocrine tumors, and non-specific interfering antibodies (heterophile antibodies, rheumatoid factor, human anti-mouse antibodies (HAMA), etc). .Performance of the PCT test in pediatric patients (<18yo), women, immunocompromised patients, and patients onimmunomodulatory medications has not been evaluated. Sodium [Moles/Vol] 135 mmol/L below low threshold 136 - 145 [place] [address] DO Work Phone: Urea nitrogen [Mass/Vol] 58 mg/dL above high threshold 6 - 23 [place] [address] DO Work Phone: Laboratory - Hematology and Cell countson 01-09-2023 Erythrocyte distribution width (RBC) [Ratio] 14.1 % See Below [place] [address] DO Work Phone: Comment on above: Reference Range: 11. 5 - 14.5 Hematocrit (Bld) [Volume fraction] 26.3 % below low threshold See Below [place] [address] DO Work Phone: Comment on above: Reference Range: 41. 0 - 52.0 Hemoglobin (Bld) [Mass/Vol] 8.1 g/dL below low threshold See Below [place] [address] DO Work Phone: Comment on above: Reference Range: 13. 5 - 17.5 MCHC (RBC) [Mass/Vol] 30.8 g/dL below low threshold See Below [place] [address] DO Work Phone: Comment on above: Reference Range: 32. 0 - 36.0 MCV (RBC) [Entitic vol] 95 fL 80 - 100 [place] [address] DO Work Phone: Platelets (Bld) [#/Vol] 245 10*3/uL 150 - 450 [place] [address] DO Work Phone: RBC (Bld) [#/Vol] 2.76 {x10E12/L} below low threshold See Below [place] [address] DO Work Phone: Comment on above: Reference Range: 4.5 0 - 5.90 WBC (Bld) [#/Vol] 8.2 10*3/uL 4.4 - 11.3 [place] [address] DO Work Phone: No Panel Informationon 01-09 11 {mL/min/1.73m2} Abnormal >90 [place] [address] DO Work Phone: Comment on above: CALCULATIONS OF ALEJANDRA MATED GFR ARE PERFORMED USING THE 2020 CKD-EPI STUDY REFIT EQUATION WITHOUT THE RACE VARIABLE FOR THE IDMS-TRACEABLE CREATININE METHODS.https://jasn.asnjournals.org/content//A .8986961050 PROCALCITONINon 01-09-2023 PROCALCITONIN 0.21 ng/mL Abnormal <=0.[address] [facility] Comment on above: Result Comment: Proc alcitonin (PCT) results measured serially can aid in decision-making for antibiotic discontinuation in patients with suspected or confirmed sepsis in conjunction with additional clinical information. Antibiotic discontinuation may be considered with a change in PCT of >80% from the peak result or when PCT falls below 0.50 ng/mL. . Procalcitonin results should not be used in isolation but should be interpreted in conjunction with additional clinical and laboratory findings. Procalcitonin results should not be used to guide the initiation of antibiotic therapy. . Falsely low PCT values in the presence of bacterial infection may occur in early infection, with atypical pathogens, localized infections, and subacute infectious endocarditis. . Falsely elevated results outside of severe bacterial infection/sepsis may be seen in patients with renal failure or insufficiency, severe trauma or curry, recent major abdominal/cardiac surgery, acute multi-organ failure, rarely in patients with medullary thyroid carcinoma and rare neuroendocrine tumors, and non-specific interfering antibodies (heterophile antibodies, rheumatoid factor, human anti-mouse antibodies (HAMA), etc). . Performance of the PCT test in pediatric patients (<18yo), women, immunocompromised patients, and patients on immunomodulatory medications has not been evaluated. Performed By: #### B MP #### [place] [id number] Radiologyon 01-09-2023 US Kidney - bilateral Normal MP- Nephrology- [facility] [place] 3 DO Work Phone: TSHon 01-09-2023 TSH Qn 3.73 m[IU]/L Normal 0.44 - 3.[address] [facility] Comment on above: Result Comment: TSH testing is performed using different testing methodology at [facility] than at other [facility]. Direct result comparisons should only be made within the same method. Performed By: #### B MP #### [place] [id number] TSH - Thyroid Stimulating Ho rmone, Serumon 01-09-2023 TSH Qn 3.73 m[IU]/L See Below MP-Nephrolog - [facility] [place] 3 DO Work Phone: Comment on above: Reference Range: 0.4 4 - 3.98 TSH testing is performed using different testing methodology at [facility] than at other [facility]. Direct result comparisons should only be made within the same method. US RENAL BILATon 01-09-2023 US RENAL BILAT Patient Name: GENET BOOTH STUDY: US RENAL BILAT; 01/09/2023 5:04 pm INDICATION: [place] . COMPARISON: None. ACCESSION NUMBER(S): [id number] ORDERING CLINICIAN: TIANA DE LEÓN TECHNIQUE: Multiple images of the kidneys were obtained . FINDINGS: RIGHT KIDNEY: The right kidney measures 13.2 cm in length with a cortical thickness of 1.2 cm. A ureteric stent is present. The medulla of the kidney is hyperechoic. No calculus. LEFT KIDNEY: The left kidney measures 12 cm in length with a cortical thickness of 0.3 cm. Severe hydronephrosis is present. The left renal pelvis is also dilated. BLADDER: A Jamison's catheter is present. The bladder is decompressed. IMPRESSION: Resolution of right hydronephrosis. Right ureteric stent present. Severe left-sided hydronephrosis with cortical atrophy, similar to 11/21/2022. MACRO: None Electronically signed by: FEI CERON MD [facility] APTTon 01-08-2023 aPTT Coag (Bld) [Time] 28 s Normal 27 - 38 [facility] Comment on above: Result Comment: Note new reference range as of 11/19/2022 at 10:00am. Performed By: #### C BC #### [address] [address] Activated Partial Thrombopla stin Timeon 01-08-2023 aPTT Coag (PPP) [Time] 28 s 27 - 38 MP -Nephrology- [facility] [place] 3 DO Work Phone: Comment on above: Note new reference r nathan as of 11/19/2022 at 10:00am. Admission Risk Screen - Adul ton 01-08-2023 Admission Risk Screen - Adult Allergies: Allergies: iodine: Unknown Patient Verification: New W ID Band Applied in my Departmentno Type of ID Patient is WearingW wristband, but not applied here Patient Transferred from Other Facility ([facility], [facility],etc)no Patient Identity Verified Bypatient ID Band FULL Name, include Middle, spelling matches patient's ID used for verificationyes ID Band Matches Patient ID used for Verficationyes ID Band MRN Matches EMR MRNyes Visitor Restriction: Coronavirus Visitor Restriction: Reasonable restrictions to in-person visitors will be observed due to current coronavirus pandemic. Travel History: COVID-19 Screening Completedno exposure or symptoms(1) Travel or Exposure Past 30 DaysNO travel to International locations in the past 30 days Ebola AlertFor Ebola-like Symptoms: Isolate Patient and Notify Provider/Salesperson Flowers For Contact: Notify Provider/Salesperson Flowers Advance Directive: Advance Directive/DNRyes (2) Advance Directive typeLiving Will, Durable Power of Tree Trimmer for Healthcare(2) Living Will AvailabilityLiving Will not available now Living Will [id number] Durable Power of Tree Trimmer AvailabilityDPOA not available now Durable Power of Tree Trimmer [id number] Durable Power of Tree Trimmer contact (name and number)Angela Angulo [phone] [place] Fall Screen: History of falling (immediate or previous)no (0) Secondary Diagnosisyes (15) Intravenous Therapy/ Heparin/Saline Lockyes (20) Gait/Transferringnorma l/bedrest/wheelchair (0) Ambulatory Aidsnone/bedrest/nurse assist (0) Mental Statusoriented to own ability (0) Score: Low risk (<25). Moderate risk (25-44). High risk (>44).35 [place] Interventionsmoderate interventions except: bed/chair/bedside commode/toilet alarms Family Violence Screen: Are you or have you been threatened or abused physically, emotionally, or sexually by anyoneno Do you feel UNSAFE going back to the place where you are livingno Clinical assessment: Are there any apparent signs of injuries/behaviors that could be related to abuse/neglectno Social Service Consult for abuse/neglect needed this visitno Functional Screen: Functional Screen: In the recent/past 2-4 weeks, patient or family have noticedno issues that require a speech/language consult at this time AM-PAC- Basic Mobility/Daily Activity: Patient baseline bedboundno Turning from your back to your side while in a flat bed without using bedrailsnone Moving from lying on your back to sitting on the side of a flat bed without using bedrailsnone Moving to and from bed to chair (including a wheelchair)none Standing up from a chair using your arms (e.g. wheelchair or bedside chair) none To walk in hospital roomnone Climbing 3-5 steps with railingnone Basic Mobility - Total Score24 Putting on and taking off regular lower body clothingnone Bathing (including washing, rinsing, drying)none Putting on and taking off regular upper body clothingnone Toileting, which includes using toilet, bedpan or urinalnone Taking care of personal grooming such as brushing teethnone Eating Mealsnone Daily Activity - Total Score24 Learning Assessment (Patient): Patient is Able to be Assessed for Learningyes Factors Influencing Readiness to Learnmotivation to learn Factors that Impact Ability to Learnvisual problems Devices/Methods Used to Communicatenone Learning Preferencesverbal instruction; written material Cultural Considerationsnone Developmental Considerationsnone Uatsdin Considerationsnone Learning Assessment (Other Learner): Other learner availableno Depression Screen: During the past month, have you often been bothered by feeling down, depressed or hopelessyes During the past month, have you often had little interest or pleasure in doing thingsno Have you had any thoughts of harming anyone elseno Kress Suicide: Risk Screen Not Applicable/Able to Answerable to be screened In the Past Month: Have you wished you were or could go to sleep and not wake upno(1) In the Past Month: Have you had any actual thoughts of killing yourself no(1) Lifetime: Have you ever done, started to do, or prepared to do anything to end your lifeno Kress Suicide Risknegative Adult Nutrition Screen: Have you recently lost weight without tryingno Have you been eating poorly because of a decreased appetiteno Malnutrition Screening Tool Score0 Malnutrition Screening Tool RiskMST = 0 or 1 Not at risk. Eating well with little or no weight loss Nutrition Consult needed this visitno Can Patient Participate in Room Serviceyes Patient requires Paper Dishes/Plastic Utensilsno Pain Screen: Pain Scalenumerical 0-10 Pain Scale Educationteaching provided Current Pain Level2 = Mild Acceptable Pain Level5 = Moderate Expression of Pain (nonverbal)none Pain Commentleft knee and leg Chronic (more content not included)... Normal [facility] BLOOD CULTURE, BACTERIALon 0 01-08-2023 BLOOD CULTURE, BACTERIAL PATIENT: GENET BOOTH LOCATION: [facility] Hayley [facility]#: [id number] : 47 AGE: SEX: M ORDERED BY: MICHELE CLIFFORD SOURCE: Blood COLLECTED: 01/08/23 13:22 ANTIBIOTICS AT JUDI.: RECEIVED : 01/08/23 23:54 SITE: R E S U L T S BLOOD CULTURE, BACTERIAL FINAL 01/13/23 05:42 No Growth at 1 days No Growth at 2 days No Growth at 3 days NO GROWTH at 4 days - FINAL REPORT Normal [facility] Comment on above: Performed By: #### B MP #### [place] [address] BLOOD CULTURE, BACTERIAL PATIENT: GENET BOOTH LOCATION: [facility] [place] Hayley [facility]#: [id number] : 47 AGE: SEX: M ORDERED BY: MICHELE CLIFFORD SOURCE: Blood COLLECTED: 01/08/23 13:11 ANTIBIOTICS AT JUDI.: RECEIVED : 01/08/23 23:54 SITE: ANTECUBITAL R E S U L T S BLOOD CULTURE, BACTERIAL FINAL 01/13/23 05:42 No Growth at 1 days No Growth at 2 days No Growth at 3 days NO GROWTH at 4 days - FINAL REPORT Normal [facility] Comment on above: Performed By: #### T [facility] #### [place] [address] CBC AND DIFFERENTIALon 01-08 % AUTOMATED IMMATURE GRAN 0.2 % Normal 0.0 - 0.[address] [facility] Comment on above: Result Comment: Lubna ture Granulocyte Count (IG) includes promyelocytes, myelocytes and metamyelocytes but does not include bands. Percent differential counts (%) should be interpreted in the context of the absolute cell counts (cells/L). Performed By: #### C BCDF ####[address] [address] Basophils (Bld) [#/Vol] 0.03 10*3/uL Normal 0.00 - 0.[address] [facility] Comment on above: Performed By: #### C BCDF ####[address] [address] Basophils/100 WBC (Bld) 0.4 % Normal 0.0 - 2.[address] [facility] Comment on above: Performed By: #### C BCDF ####[address] [address] Eosinophils (Bld) [#/Vol] 0.29 10*3/uL Normal 0.00 - 0.[address] [facility] Comment on above: Performed By: #### C BCDF ####[address] [address] Eosinophils/100 WBC (Bld) 3.5 % Normal 0.0 - 6.[address] [facility] Comment on above: Performed By: #### C BCDF ####[address] [address] Erythrocyte distribution width (RBC) [Ratio] 14.1 % Normal 11.5 - 14.[address] [facility] Comment on above: Performed By: #### C BCDF ####[address] [address] Hematocrit (Bld) [Volume fraction] 29.3 % Low 41.0 - 52.[address] [facility] Comment on above: Performed By: #### C BCDF ####[address] [address] Hemoglobin (Bld) [Mass/Vol] 9.0 g/dL Low 13.5 - 17.[address] [facility] Comment on above: Performed By: #### C BCDF ####[address] [address] Lymphocytes (Bld) [#/Vol] 0.98 10*3/uL Normal 0.80 - 3.[address] [facility] Comment on above: Performed By: #### C BCDF ####[address] [address] Lymphocytes/100 WBC (Bld) 11.9 % Normal 13.0 - 44.[address] [facility] Comment on above: Performed By: #### C BCDF ####[address] [address] MCHC (RBC) [Mass/Vol] 30.7 g/dL Low 32.0 - 36.0 [facility] Comment on above: Performed By: #### C BCDF ####[address] [address] MCV (RBC) [Entitic vol] 96 fL Normal 80 - [address] [facility] Comment on above: Performed By: #### C BCDF ####[address] [address] Monocytes (Bld) [#/Vol] 0.53 10*3/uL Normal 0.05 - 0.[address] [facility] Comment on above: Performed By: #### C BCDF ####[address] [address] Monocytes/100 WBC (Bld) 6.4 % Normal 2.0 - 10.[address] [facility] Comment on above: Performed By: #### C BCDF ####[address] [address] Neutrophils (Bld) [#/Vol] 6.39 10*3/uL High 1.60 - 5.[address] [facility] Comment on above: Result Comment: Perc ent differential counts (%) should be interpreted in the context of the absolute cell counts (cells/L). Performed By: #### C BCDF ####[address] [address] Neutrophils/100 WBC (Bld) 77.6 % Normal 40.0 - 80.[address] [facility] Comment on above: Performed By: #### C BCDF ####[address] [address] Platelets (Bld) [#/Vol] 250 10*3/uL Normal 150 - [address] [facility] Comment on above: Performed By: #### C BCDF ####[place] [address] [place] [address] RBC 3.06 x10E12/L Low 4.50 - 5.[address] [facility] Comment on above: Performed By: #### C BCDF ####[address] [address] WBC (Bld) [#/Vol] 8.2 10*3/uL Normal 4.4 - 11.3 [facility] Comment on above: Performed By: #### C BCDF ####[address] [address] CHEST 2 VIEW PA AND LATon CHEST 2 VIEW PA AND LAT Patient Name: GENET BOOTH STUDY: CHEST 2 VIEW PA AND LAT; 01/08/2023 2:01 pm INDICATION: weakness . COMPARISON: 11/20/2022 ACCESSION NUMBER(S): [id number] ORDERING CLINICIAN: MICHELE CLIFFORD TECHNIQUE: 3 radiographs of the chest were performed in two views. The study is limited by patient positioning. FINDINGS: The heart is enlarged. There is persistent opacity in the left lower thorax which could reflect elevation of the left hemidiaphragm and atelectasis. Underlying infiltrate can not be excluded. This appearance is unchanged in the interval. The right lung is free of airspace consolidation. There is no obvious pneumothorax. The osseous structures are stable. IMPRESSION: Persistent opacity in the left lung base with volume loss.. This may reflect elevation of the left hemidiaphragm and atelectasis. Underlying infiltrate can not be excluded in the proper clinical setting. The overall appearance is stable from 11/20/2022. Electronically signed by: SHARAN OWEN MD Normal [facility] COMPREHENSIVE PANELon 2022 Albumin [Mass/Vol] 3.6 g/dL Normal 3.4 - 5.0 [facility] Comment on above: Performed By: #### B MP #### [address] [address] ALP [Catalytic activity/Vol] 80 U/L Normal 33 - [address] [facility] Comment on above: Performed By: #### B MP #### [address] [address] ALT [Catalytic activity/Vol] 12 U/L Normal 10 - [address] [facility] Comment on above: Result Comment: Rhea ents treated with Sulfasalazine may generate falsely decreased results for ALT. Performed By: #### B MP #### [address] [address] Anion gap [Moles/Vol] 15 mmol/L Normal 10 - 20 [facility] Comment on above: Performed By: #### B MP #### [address] [address] AST [Catalytic activity/Vol] 12 U/L Normal 9 - [address] [facility] Comment on above: Performed By: #### B MP #### [address] [address] Bilirubin [Mass/Vol] 0.4 mg/dL Normal 0.0 - 1.2 [facility] Comment on above: Performed By: #### B MP #### [address] [address] Calcium [Mass/Vol] 8.5 mg/dL Low 8.6 - 10.3 [facility] Comment on above: Performed By: #### B MP #### [address] [address] Chloride [Moles/Vol] 105 mmol/L Normal 98 - 107 [facility] Comment on above: Performed By: #### B MP #### [address] [address] Creatinine [Mass/Vol] 5.01 mg/dL High 0.50 - 1.30 [facility] Comment on above: Performed By: #### B MP #### [address] [address] GFR/1.73 sq M.predicted among non-blacks MDRD (S/P/Bld) [Vol rate/Area] 11 mL/min/{1.73_m2} Abnormal >[address] [facility] Comment on above: Result Comment: CALC ULATIONS OF ESTIMATED GFR ARE PERFORMED USING THE 2020 CKD-EPI STUDY REFIT EQUATION WITHOUT THE RACE VARIABLE FOR THE IDMS-TRACEABLE CREATININE METHODS. https://jasn.asnjournals.org/content/early/ASN.41423 [address] Performed By: #### B MP #### [address] [address] Glucose [Mass/Vol] 132 mg/dL High 74 - 99 [facility] Comment on above: Performed By: #### B MP #### [address] [address] HCO3 (Bld) [Moles/Vol] 20 mmol/L Low 21 - 32 [facility] Comment on above: Performed By: #### B MP #### [address] [address] Potassium [Moles/Vol] 3.9 mmol/L Normal 3.5 - 5.3 [facility] Comment on above: Performed By: #### B MP #### [address] [address] Protein [Mass/Vol] 7.5 g/dL Normal 6.4 - 8.2 [facility] Comment on above: Performed By: #### B MP #### [address] [address] Sodium [Moles/Vol] 136 mmol/L Normal 136 - 145 [facility] Comment on above: Performed By: #### B MP #### [address] [address] Urea nitrogen [Mass/Vol] 51 mg/dL High 6 - [address] [facility] Comment on above: Performed By: #### B MP #### [address] [address] CORONAVIRUS 2019 BY PCRon SARS-CoV-2 (COVID-19) RNA JACK+probe Ql (Unsp spec) Not detected Normal Not Detected [facility] Comment on above: Result Comment: . This test has received FDA Emergency Use Authorization (EUA) and has been verified by [facility]. This test is only authorized for the duration of time that circumstances exist to justify the authorization of the emergency use of in vitro diagnostic tests for the detection of SARS-CoV-2 virus and/or diagnosis of COVID-19 infection under section 564(b)(1) of the Act, 21 U.S.C. 360bbb-3(b)(1), unless the authorization is terminated or revoked sooner. [facility] is certified under CLIA-88 as qualified to perform high complexity testing. Testing is performed in the [facility] laboratory located at [address] [place] [address]. SARS-CoV-2/Flu/RSV Multiplex Test: Fact sheet for providers: https://www.fda.gov/media/821221/download Fact sheet for patients: https://www.fda.gov/media/113043/download Performed By: #### C BC #### [place] [address] Lab Specimen Source Nasal, Nasopharyngeal Normal [facility] Comment on above: Performed By: #### C BC #### [place] [address] Complete Blood Count + Diffkarl valdez 01-08-2023 Basophils/100 WBC (Bld) 0.4 % 0.0 - 2.0 [facility] [address] [facility] Work Phone: Erythrocyte distribution width (RBC) [Ratio] 14.1 % See Below [place] [address] DO Work Phone: Comment on above: Reference Range: 11. 5 - 14.5 Hematocrit (Bld) [Volume fraction] 29.3 % below low threshold See Below [place] [address] DO Work Phone: Comment on above: Reference Range: 41. 0 - 52.0 Hemoglobin (Bld) [Mass/Vol] 9.0 g/dL below low threshold See Below [place] [address] DO Work Phone: Comment on above: Reference Range: 13. 5 - 17.5 Lymphocytes/100 WBC (Bld) 11.9 % See Below [place] [address] DO Work Phone: Comment on above: Reference Range: 13. 0 - 44.0 MCHC (RBC) [Mass/Vol] 30.7 g/dL below low threshold See Below [place] [address] DO Work Phone: Comment on above: Reference Range: 32. 0 - 36.0 MCV (RBC) [Entitic vol] 96 fL 80 - 100 [place] [address] DO Work Phone: Monocytes/100 WBC (Bld) 6.4 % 2.0 - 10.0 [place] [address] DO Work Phone: Neutrophils/100 WBC (Bld) 77.6 % See Below [place] [address] DO Work Phone: Comment on above: Reference Range: 40. 0 - 80.0 Platelets (Bld) [#/Vol] 250 10*3/uL 150 - 450 [place] [address] DO Work Phone: RBC (Bld) [#/Vol] 3.06 {x10E12/L} below low threshold See Below [place] [address] DO Work Phone: Comment on above: Reference Range: 4.5 0 - 5.90 WBC (Bld) [#/Vol] 8.2 10*3/uL 4.4 - 11.3 [facility] [address] DO Work Phone: Complete Blood Count + Differential 0.03 {x10E9/L} See Below [place] [address] DO Work Phone: Comment on above: Reference Range: 0.0 0 - 0.10 Complete Blood Count + Differential 0.29 {x10E9/L} See Below [place] [address] DO Work Phone: Comment on above: Reference Range: 0.0 0 - 0.40 Complete Blood Count + Differential 0.53 {x10E9/L} See Below [place] [address] DO Work Phone: Comment on above: Reference Range: 0.0 5 - 0.80 Complete Blood Count + Differential 0.98 {x10E9/L} See Below [place] [address] DO Work Phone: Comment on above: Reference Range: 0.8 0 - 3.00 Complete Blood Count + Differential 6.39 {x10E9/L} above high threshold See Below [place] [address] DO Work Phone: Comment on above: Reference Range: 1.6 0 - 5.50 Percent differential counts (%) should be interpreted in the context of the absolute cell counts (cells/L). Complete Blood Count + Differential 3.5 % 0.0 - 6.0 [place] [address] DO Work Phone: Complete Blood Count + Differential 0.2 % 0.0 - 0.9 [place] [address] DO Work Phone: Comment on above: Immature Granulocyte Count (IG) includes promyelocytes, myelocytes and metamyelocytes but does not include bands. Percent differential counts (%) should be interpreted in the context of the absolute cell counts (cells/L). Coronavirus 2019 RNA by PCR, Symptomaticon 01-08-2023 Coronavirus 2019 RNA by PCR, Symptomatic Not detected Normal See Below [place] [address] DO Work Phone: Comment on above: SOURCE: Nasal, Nasop haryngealReference Range: Not Detected.This test has received FDA Emergency Use Authorization (EUA) and has been verified by [facility]. This test is only authorized for the duration of time that circumstances exist to justify the authorization of the emergency use of in vitro diagnostic tests for the detection of SARS-CoV-2 virus and/or diagnosis of COVID-19 infection under section 564(b)(1) of the Act, 21 U.S.C. 360bbb-3(b)(1), unless the authorization is terminated or revoked sooner. [facility] is certified under CLIA-88 as qualified to perform high complexity testing. Testing is performed in the [facility] laboratory located at [address] [place] [address].SARS-CoV-2/Flu/RSV Multiplex Test: Fact sheet for providers: https://www.fda.gov/media/833285/downloadFact sheet for patients: https://www.fda.gov/media/622180/download Covid 19 Resultson 3 SARS-CoV-2 (COVID-19) RNA JACK+probe Ql (Unsp spec) NEGATIVE COVID-19 Test Coronaviruses are common world-wide and are the cause of many common colds. SARS-COV2 is a new coronavirus that began circulating worldwide in 2019 so we are calling it COVID-19. It has been estimated that four out of five patients with COVID-19 will recover at home without the need for medical attention. Symptoms of COVID-19 may include cough, fever, shortness of breath, loss of taste or smell and other flu-like symptoms including chills, sore muscles, sore throat, and headache. Severe illness is more common in older people and people with other health problems such as high blood pressure, obesity, and immune system problems. If the test is positive, you have COVID-19. You will be contacted by the ordering physicians office and instructed to remain on home isolation, in accordance with CDC guidelines. You may also be contacted by the [place] Department of Health to see if any of your close contacts may have been exposed to the virus and need to quarantine. If the test is negative, you likely do not have COVID-19 at this time, but you still may have a different illness that can spread to other people (like Influenza, or the Flu) and could still be at risk for getting COVID-19. We recommend that you stay away from other people to limit the spread of illness until your symptoms are improving and you are fever-free for 24 hours without the use of fever lowering medications such as acetaminophen or ibuprofen. No test is 100% accurate so if you are still concerned you may have COVID-19, talk to your doctor about the need to continue to stay away from others. Medicines Unless your provider told you not to use the following: Acetaminophen (Tylenol and others) is generally safe. Anti-inflammatory medications, such as Ibuprofen (Advil or Motrin) or Naproxen (Aleve) can also be used. Zvdl-jpq-bgppibq cough and cold medicines can be used according to the instructions on the package. Some emin-gpt-mvlbefd medicines also contain acetaminophen. Make sure you are not taking more than your recommended dose. For those not hospitalized, there is no specific treatment available for this illness. Antibiotics do not treat Coronaviruses. Follow-Up Follow up with your doctor by scheduling a virtual visit or consider follow-up at one of our urgent care fever clinics. If you are having difficulty breathing, or are very weak and having difficulty standing, this is a medical emergency. Call 911 or have someone take you to the nearest emergency room immediately. If possible, wear a facemask. Additional guidance from the CDC for patients who tested POSITIVE for COVID-19 How to isolate: Isolate yourself in a specific room at home and limit your contact with others. Use a separate bathroom from other members of the household, when possible. Leave home only to get essential medical care. Do not go to work, school or public areas. Avoid using public transportation, ride-sharing, or taxis. Restrict contact with pets and other animals. If you must care for your pet or be around animals while you are sick, wash your hands before and after your interaction and wear a facemask. Make sure that shared spaces in the home have good airflow, such as by an air conditioner or an opened window, weather permitting. Personal Hygiene Procedures: Wear a face mask when in the same room as other people or pets. If a face mask interferes with your breathing, others should wear a mask when sharing space with you. Frequent hand-washing: wash your hands with soap and water for at least 20 seconds. If soap and water are not available, use alcohol-based hand garage door technician. Avoid touching your eyes, nose, and mouth with unwashed hands. Household Hygiene Procedures: Avoid sharing personal household items such as dishes, glassware, cups, eating utensils, towels or bedding with other people or pets in your home. After use, these items should be washed with soap and hot water. Disinfect all high-touch surfaces every day with antibacterial cleaning solutions such as Lysol wipes, bleach, cleansers, etc. High-touch surfaces include tabletops, doorknobs, bathroom fixtures, toilets, phones, keyboards, tablets and bedside tables. Immediately clean any surfaces that may have blood, poop or body fluids on them, using antibacterial cleaning solutions such as Lysol wipes, bleach, cleansers, etc. If clothing or bedding come into contact with blood, poop or body fluids, they should be washed immediately. Follow the directions on the laundry detergent and clothing labels but hot water is recommended when possible. Stopping home isolation precautions: If possible, consult your doctor before stopping home isolation precautions. According to the CDC, you can discontinue home isolation precautions when you have met both of these criteria: Your fever and respiratory symptoms have been gone for 24 jair (more content not included)... Normal [facility] Cult, Bloodon 01-08-2023 Bacteria identified Cx Nom (Bld) [facility] [address] [facility] Work Phone: Bacteria identified Cx Nom (Bld) [facility] 3 DO Work Phone: Cult, Urineon 01-08-2023 Bacteria identified Cx Nom (U) Abnormal [facility] [address] DO Work Phone: LACTATEon 01-08-2023 Lactate [Moles/Vol] 2.0 mmol/L Normal 0.4 - 2.0 [facility] Comment on above: Result Comment: Keeley puncture immediately after or during the administration of Metamizole may lead to falsely low results. Testing should be performed immediately prior to Metamizole dosing. Performed By: #### B MP #### [place] [address] Laboratory - Chemistry and C hemistry - challengeon 01-08-2023 Albumin BCP dye [Mass/Vol] 3.6 g/dL 3.4 - 5.0 [place] [address] DO Work Phone: ALP [Catalytic activity/Vol] 80 U/L 33 - 136 [place] [address] DO Work Phone: ALT With P-5'-P [Catalytic activity/Vol] 12 U/L 10 - 52 [place] [address] DO Work Phone: Comment on above: Patients treated wit h Sulfasalazine may generate falsely decreased results for ALT. Anion gap [Moles/Vol] 15 mmol/L 10 - 20 [place] [address] DO Work Phone: AST With P-5'-P [Catalytic activity/Vol] 12 U/L 9 - 39 [place] [address] DO Work Phone: Bilirubin [Mass/Vol] 0.4 mg/dL 0.0 - 1.2 [place] [address] DO Work Phone: Calcium [Mass/Vol] 8.5 mg/dL below low threshold 8.6 - 10.3 [place] [address] DO Work Phone: Chloride [Moles/Vol] 105 mmol/L 98 - 107 [place] [address] DO Work Phone: CO2 [Moles/Vol] 20 mmol/L below low threshold 21 - 32 [place] [address] DO Work Phone: Creatinine [Mass/Vol] 5.01 mg/dL above high threshold See Below [place] [address] DO Work Phone: Comment on above: Reference Range: 0.5 0 - 1.30 Glucose [Mass/Vol] 132 mg/dL above high threshold 74 - 99 [place] [address] DO Work Phone: Potassium [Moles/Vol] 3.9 mmol/L 3.5 - 5.3 [place] [address] DO Work Phone: Protein [Mass/Vol] 7.5 g/dL 6.4 - 8.2 [place] [address] DO Work Phone: Sodium [Moles/Vol] 136 mmol/L 136 - 145 [place] [address] DO Work Phone: Urea nitrogen [Mass/Vol] 51 mg/dL above high threshold 6 - 23 [place] [address] DO Work Phone: Laboratory - Coagulationon 0 01-08-2023 INR Coag (PPP) [Relative time] 1.1 {INR} 0.9 - 1.1 [place] [address] DO Work Phone: PT Coag (PPP) [Time] 12.5 s 9.8 - 12.8 [place] [address] DO Work Phone: Comment on above: Note new reference mariam evans as of 11/19/2022 at 10:00am. Lactate, Levelon 01-08-2023 Lactate [Moles/Vol] 2.0 mmol/L 0.4 - 2.0 [place] [address] DO Work Phone: Comment on above: Venipuncture immedia tely after or during the administration of Metamizole may lead to falsely low results. Testing should be performed immediately prior to Metamizole dosing. No Panel Informationon 01-08 11 {mL/min/1.73m2} Abnormal >90 [place] [address] DO Work Phone: Comment on above: CALCULATIONS OF ALEJANDRA MATED GFR ARE PERFORMED USING THE 2020 CKD-EPI STUDY REFIT EQUATION WITHOUT THE RACE VARIABLE FOR THE IDMS-TRACEABLE CREATININE METHODS.https://jasn.asnjournals.org/content/22/A SN.8208366982 Order Reconciliationon 01-08 Order Reconciliation Page 1 Admission Reconciliation Document Reconciliation Type: ED to Observation requested on behalf of Giovanni Pardo (Physician) done by Giovanni Pardo) ED to Observation - Reconciliation: 08-Jan-2023 20:17 by: Giovanni Pardo) ED to Observation - AutoLinked: 08-Jan-2023 20:17 by: Giovanni Pardo) Home MedicationsEnteredLast Dose TakenReconciled with current Order Reconciliation Comment/ Additional Information acetaminophen 325 mg oral tablet 2 tab(s) orally every 4 hours, As needed, Temp Greater Than or Equal to 38.0 [id number] Reviewed and Held allopurinol 100 mg oral tablet 1 tab(s) orally once a [id number]-Jan-2023 07:30 AM Allopurinol Tablet (ZYLOPRIM)DOSE = 100 mg Oral Every 24 Hoursallopurinol 100 mg oral tablet continued as the inpatient order Allopurinol calcitriol 0.25 mcg oral capsule 1 cap(s) orally once a [id number]-Jan-2023 07:30 AM Calcitriol Capsule (ROCALTROL)DOSE = 0.25 microgram(s) Oral Dailycalcitriol 0.25 mcg oral capsule continued as the inpatient order Calcitriol isosorbide mononitrate 30 mg oral tablet, extended release 1 tab(s) orally once a day (in the morning)Dec-2022 07:30 AM Isosorbide Mononitrate Extended Release Tablet, Extended Release (IMDUR)DOSE = 30 mg Oral Dailyisosorbide mononitrate 30 mg oral tablet, extended release continued as the inpatient order Isosorbide Mononitrate Extended Release Multiple Vitamins oral tablet 1 tab(s) orally once a [id number]-[id number] 07:30 AM Reviewed and Held NIFEdipine 30 mg oral tablet, extended release 1 tab(s) orally once a day -2023 07:30 AM NIFEdipine (PROCARDIA XL) Extended Release Tablet, Extended ReleaseDOSE = 30 mg Oral DailyNIFEdipine 30 mg oral tablet, extended release continued as the inpatient order NIFEdipine (PROCARDIA XL) Extended Release Procrit 20,000 units/mL injectable solution 1 dose(s) injectable every 2 weeks. Patient has not started yet as of [id number] NKNOWN UNKNOWN Reviewed and Held sodium bicarbonate 650 mg oral tablet 1 tab(s) orally once a [id number]-Jan-2023 07:30 AM Sodium Bicarbonate TabletDOSE = 650 mg Oral Every 24 Hourssodium bicarbonate 650 mg oral tablet continued as the inpatient order Sodium Bicarbonate Additional Current Orders Acetaminophen Tablet (TYLENOL)DOSE = 650 mg Oral Every 4 Hours, PRN Temp Greater Than or Equal to 38.0 C Heparin SubCutaneous DOSE = 5,000 unit(s) SubCutaneous Every 8 HoursNotes from Pharmacy: Note Concentration Prior to Administration Lactated Ringers Infusion IV Bag Volume = 1,000 mL Run at: 75 mL/hr IntraVenous Ondansetron Injectable (ZOFRAN)DOSE = 4 mg IntraVenous Push Every 4 Hours, PRN Nausea and/or Vomiting Piperacillin - Tazobactam 2.25 grams/Iso-osmotic 50 mL Premix IVPB (ZOSYN)Every 8 HoursRecommended Infusion Time: 30 minute(s) Sodium Chloride 0.9% Infusion IV Bag Volume = 1,000 mL Run at: 85 mL/hr IntraVenous Sodium Chloride 0.9% Injectable Flush via Peripheral LineVolume = 10 mL IntraVenous Flush Every 8 Hours and as Needed Normal [facility] PT/INRon 01-08-2023 PT Coag (PPP) [Time] 12.5 s Normal 9.8 - 12.8 [facility] Comment on above: Result Comment: Note new reference range as of 11/19/2022 at 10:00am. Performed By: #### P TINR #### [place] [address] PT, INR 1.1 Normal 0.9 - 1.[address] [facility] Comment on above: Performed By: #### P TINR #### [place] [address] Patient Profile - Adult v2on 01-08-2023 Patient Profile - Adult v2 Profile: Initial Info: How to be AddressedMike(1) Spoken Language PreferredEnglish (1) Source of Informationpatient Stated Reason for AdmissionUTI Primary Contact Name and NumberDrew Martina perez [phone] Wants Family/Rep Notified of Admissionno Notify PCPnotify PCP Dr. Hernandez out of [place] Informed of Patient Visiting Rightsyes [facility] Employment Statusretired Current or Previous Servicenone Patient Belongingsremains with patient Patient Belongings Remaining with Patientclothing; cell phone/electronics; vision aids; purse/wallet Medications Brought to Hospitalno General Health: Blood Avoidance/Restrictions none(1) Weight in kg108 kilogram(s) Weight in kth961 pound(s) Weight Methodactual (measured) Scale Typebed Height in cm180.2 centimeter(s)(2) Height in feet5 feet Height in fshaum31.98 inch(es) Height Methodstated BMI (kg/m2)33.259 square meter RSP Based Care: How would you like to participate in your care cooperate with whatever instructions are given What is the number one concern for you during this hospitalizationbreath ing or lack of breath What is the most important thing we can do to support you during this hospitalizationmonito r the infection and see if the antibiotics are doing okay Is there anything we need to know to best care for youno Substance: Smoking Statusnever smoker (3) Alcohol Usedenies(3) Drug Usedenies (3) Health Mgmt: Symptoms/Conditions Managed at Homecardiovascular; genitourinary Cardiovascular Symptoms/Conditionsdys rhythmia; hypertension Cardiovascular Management Strategiesmedication therapy Cardiovascular Managementmanaged Genitourinary Symptoms/Conditionsren al disease; stones; unable to void/empty Genitourinary Management Strategiescatheter, indwelling Indwelling Catheter [id number] Genitourinary Managementnot managed Genitourinary Symptoms/Conditions CommentUTI Relationship/Environ: Resource/Environmental Concernsreliable transportation Transportation Concernsrides, unreliable from others Primary Source of Support/Comfortfriend Lives Withalone Living Arrangementshouse Services Anticipated at Transitionnone Anticipated Transition [facility] Significant IndicatorsComplete Information Review: Allergies, Home Meds and Significant Events have been Reviewed and Verified with Patient/Familyyes ALLERGY, INTOLERANCE, ADVERSE EVENT: Allergies: iodine: Drug, Unknown, Active Electronic Signatures: Prema Cabral (KAREN) (Signed 08-Jan-2023 18:39) Authored: Initial Info, General Health, RSP Based Care, Substance, Health Mgmt, Relationship/Environ, Additional Information Last Updated: 08-Jan-2023 18:39 by Prema Cabral (KAREN) References: 1. Data Referenced From Patient Profile - Adult v2 20-Nov-2022 10:55 2. Data Referenced From 1. Vital Signs 08-Jan-2023 12:30 3. Data Referenced From Provider Note - ED v3 08-Jan-2023 12:53 [facility] Provider Note - ED v3on 08-0 Provider Note - ED v3 Provider Note: Results/Vital Signs: Pediatric Clinical Scoring (SERJIO) is no recent SERJIO charted on this account Chart Review: ED NOTES ED NOTES: Source of Information: Patient. EMR was reviewed for previous records. The EMS transfer sheet was not available during my initial assessment of the patient. HPI: Multiple complaints. This 78-year-old white male states approximately 34 weeks was hospitalized due to urinary tract infection he states that he was discharged to a SNF for 2 weeks with improvement of his strength and then went home with home occupational Therapy states that today he was getting occupational therapy and began to feel very short of breath, dizzy with a near syncopal episode he denies any history of fevers or chills. Patient has a indwelling Jamison catheter and states that he finished his antibiotics so he is not sure what they are. He admits to history of prostate cancer was treated with radiation. He states that activity makes his symptoms worse rest helps to some extent. PMH: UTI, chronic kidney disease, kidney stones, pyelonephritis, pneumonia, prostate cancer gout, sleep apnea PSH: Ureteral stent placement Social Hx: The patient denies any use of tobacco, alcohol or illicit drugs. Fam: MEDS: Noted in the EMR. ALLERGIES: Iodine PHYSICAL EXAM: General: Patient alert, awake, oriented X3, appears to be in no obvious distress, nontoxic, cooperative, obese Skin: Warm. Dry. Intact. No rash. Eyes: PEARTLA, EOMIs intact, sclera white, conjunctiva clear HEENT: Atraumatic. Normo-cephalic. Oral and nasal mucosa pink and moist. Neck: Supple without meningismus, no lymphadenopathy. CV: Heart is slightly tachycardic rate without murmur Respiratory: Nonlabored breathing. There are no retractions or tachypnea. Lungs are clear to auscultation bilaterally. GI: Abdomen is protuberant soft, nontender, without gross distention, bowel sounds present in all 4 quadrants. There is no pulsatile masses. There is no CVA tenderness. No rebound, rigidity or guarding. MUSC: There is no joint swelling or bony tenderness on exam. Neuro: Cranial nerves II - XII grossly intact. No focal neurologic deficits are noted on exam. Lower extremities: There is no peripheral edema bilaterally, negative Homans sign. No palpable cords. Distal pulses are +2/4 and present in both lower extremities. Psych: Maintains eye contact. Cooperative. ED course: EKG was interpreted by myself at 12:27 PM reveals sinus tach with first-degree AV block with PVCs and complete right bundle branch block with nonspecific ST-T wave changes. The heart rate is 103 bpm. The NJ interval is 218 ms. The QRS duration is 96 ms. The QTc is 442 ms axis is 81 degrees. Patient was seen and evaluated due to complaints of generalized weakness he was ordered blood work, urinalysis and chest x-ray. Patient had a normal CBC with anemia with hemoglobin of 9.0. Glucose is 132 his bicarb was 20 his BUN was 52 and creatinine 5.01 and his calcium was low at 8.5. GFR was 11 troponin was normal at 7. Lactic acid level was normal at 2. Urinalysis was grossly positive for evidence of urinary tract infection he was subsequent treated with IV antibiotics his chest x-ray reveals persistent opacity in the left lung base with volume loss this may reflect elevation of the left hemidiaphragm and/or atelectasis though underlying infiltrate cannot be excluded in proper clinical setting. COVID testing was negative. Due to patient's recurrent UTI and renal failure the patient was admitted to the hospital for further IV antibiotics and nephrology consult for possible dialysis. This chart was dictated with the use of Pocketbook software within the framework of the current electronic medical records software. Attempts were made to edit in real time, given time constraints there is the potential for inaccuracies in my dictation. Michele Clifford, DO HISTORY OF PRESENTING ILLNESS GENET is a 78 year old Male and was seen by me at 08-Jan-2023 12:39 for a chief complaint of shortness of breath (pt was in therapy at home and felt dizzy, weak, SOB, and near syncopal. pt reports this has been happening since recent admit here at our hospital.)(1). Triage Information: Most recent Vital Sign Value Date Temp (F): 98 01-08-2023 12:30 Temp (C): 36.6 01-08-2023 12:30 He (more content not included)... Normal [facility] Radiologyon 01-08-2023 XR Chest 2 Views [facility] Work Phone: Risk Screen - Adult Emergenc yon 01-08-2023 Risk Screen - Adult Emergency Preferred Language: Preferred Language: Preferred Language for Discussing Health Care (patient/designee)Manpreet song Patient Preferred Pharmacy: Patient Preferred Pharmacy Statement: I have reviewed and updated the patient's preferred pharmacy selection for today's visit. Advanced Directives: Advance Directive/DNRyes Advance Directive typeLiving Will, Durable Power of Tree Trimmer for Healthcare Family Violence Adult: Abuse Screen: Are you or have you been threatened or abused physically, emotionally, or sexually by anyoneno Learning Assessment (Patient): Learning Assessment (Patient): Patient is Able to be Assessed for Learningyes Factors Influencing Readiness to Learnacuteness of illness Factors that Impact Ability to Learnnone Devices/Methods Used to Communicatenone Learning Preferencesaudio Cultural Considerationsnone Developmental Considerationsnone Uatsdin Considerationsnone Learning Assessment (Other Learner): Learning Assessment (Other Learner): Other learner availableno Pressure Injury/TB/Substance: Pressure Injury: Do you have a coughno Smoking Statusformer smoker Alcohol Usedenies Drug Usedenies Admission Risk Screen: Significant IndicatorsComplete CAGE: CAGE: Is this an injured patient at a Trauma Center ([facility]): no Electronic Signatures: Nan Mcpherson (RN) (Signed 08-Jan-2023 12:38) Authored: Preferred Language, Patient Preferred Pharmacy, Advanced Directives, Family Violence Adult, Learning Assessment (Patient), Learning Assessment (Other Learner), Pressure Injury/TB/Substance, Pressure Injury, CAGE Last Updated: 08-Jan-2023 12:38 by Nan Mcpherson (KAREN) Normal [facility] TROPONIN I, HIGH SENSITIVITY on 01-08-2023 TROPONIN I, HIGH SENSITIVITY 7 ng/L Normal 0 - [address] [facility] Comment on above: Result Comment: . Less than 99th percentile of normal range cutoff- Female and children under 18 years old <14 ng/L; Male <21 ng/L: Negative Repeat testing should be performed if clinically indicated. . Female and children under 18 years old 14-50 ng/L; Male 21-50 ng/L: Consistent with possible cardiac damage and possible increased clinical risk. Serial measurements may help to assess extent of myocardial damage. . >50 ng/L: Consistent with cardiac damage, increased clinical risk and myocardial infarction. Serial measurements may help assess extent of myocardial damage. . NOTE: Children less than 1 year old may have higher baseline troponin levels and results should be interpreted in conjunction with the overall clinical context. . NOTE: Troponin I testing is performed using a different testing methodology at [facility] than at other [facility]. Direct result comparisons should only be made within the same method. Performed By: #### C BC #### [facility] [address] [place] [address] Tropinin I.cardiac panel High sensitivity method 7 ng/L 0 - 20 -Nephrology- [facility] [place] 3 DO Work Phone: Comment on above: .Less than 99th perc entile of normal range cutoff-Female and children under 18 years old <14 ng/L; Male <21 ng/L: NegativeRepeat testing should be performed if clinically indicated. .Female and children under 18 years old 14-50 ng/L; Male 21-50 ng/L:Consistent with possible cardiac damage and possible increased clinical risk. Serial measurements may help to assess extent of myocardial damage. .>50 ng/L: Consistent with cardiac damage, increased clinical risk andmyocardial infarction. Serial measurements may help assess extent of myocardial damage. . NOTE: Children less than 1 year old may have higher baseline troponin levels and results should be interpreted in conjunction with the overall clinical context. .NOTE: Troponin I testing is performed using a different testing methodology at [facility] than at other [facility] hospitals. Direct result comparisons should only be made within the same method. Triage - EDon 01-08-2023 Triage - ED Chart Review: TREATMENT PRIOR TO ARRIVAL Treatment Prior to Arrival: Prior to arrival in the Emergency Department GENET BOOTH had treatment conducted by EMS which included the following; aerosol treatment and IV. EMS REPORTED VITAL SIGNS Blood Pressure: 87/54 Mean: Heart Rate: 104 Pulse Oximetry: 93% Blood Glucose: 146mg/dl Comments: gave 500 ml bolus Inhalation Medications: Albuterol (duoneb) IV Solution Initiated Prior to Arrival: sodium chloride 0.9% ARRIVAL INFORMATION Mode of Arrival: ambulance Agency Name: [facility] CHIEF COMPLAINT GENET BOOTH is a Male patient with a chief complaint of shortness of breath (pt was in therapy at home and felt dizzy, weak, SOB, and near syncopal. pt reports this has been happening since recent admit here at our hospital.). Triage Date/Time: 08-Jan-2023 12:30 ARCELIA: 2 Pain Rating (0-10): 0 = None Vital Signs: Temperature: 98.0F ( 36.6C) Blood Pressure: 137/69 Mean: Heart Rate: 103 Respiratory Rate: 22 Pulse Oximetry: 93% on room air, no respiratory support. Height: 5 feet 11.00 inches. 180.3 CM Weight: 246.9 pounds. Calculated 112.0 kg. Calculated BMI (kg/m2): 34.452 Calculated BSA (m2) 2.37 Aashish Coma Scale: Best Eye Response: (E4) spontaneous Best Motor Response: (M6) obeys commands Best Verbal Response: (V5) oriented Aashish Score: 15 Allergies: yes Patient has homicidal thoughts: yes Risk Screens Suicide Risk Screen In the Past Month: Have you wished you were or wished you could go to sleep and not wake up no In the Past Month: Have you had any actual thoughts of killing yourself no In Your Lifetime: Have you ever done anything, started to do anything, or prepared to do anything to end your life no Aguayo Fall Scale Screening Has the patient fallen before (or is the patient in the ED as a result of a fall) has not had a fall Does the patient have an impaired gait does not have impaired gait Is the patient cognitively impaired not cognitively impaired Interventions: Aguayo Fall Interventions: LOW INTERVENTIONS: *patient oriented to surroundings and call system, * patient/family falls education completed and documented, *patients fall status communicated during bedside handoff, *whiteboard updated, *mode of toileting discussed with patient, *bed in low position with brakes locked, *call light in reach, * non-skid footwear TRAVEL HISTORY Travel History Coronavirus Screening: no exposure or symptoms Travel Exposure History: NO travel to International locations in the past 30 days PAIN Pain Scale Used: JOSEPHINE Pain Rating (0-10): 0 = None Past Medical History: Past Medical History Reviewedyes Electronic Signatures: Nan Mcpherson (KAREN) (Signed 08-Jan-2023 12:39) Authored: Quick Triage, Risk Screens, Pain, Pre-arrival, Travel History, Chart Review, Scores, Past Medical History Last Updated: 08-Jan-2023 12:39 by Nan Mcpherson (KAREN) Normal [facility] UA MICROSCOPICon 01-08-2023 BACTERIA 1+ /HPF Abnormal [facility] Comment on above: Performed By: #### B MP #### [address] [address] RBC (U) [#/Vol] /uL Abnormal 0-[address] [facility] Comment on above: Performed By: #### B MP #### [address] [address] SQUAMOUS EPITH. CELLS 2 /HPF Normal [facility] Comment on above: Performed By: #### B MP #### [address] [address] WBC (U) [#/Vol] /uL Abnormal 0-[address] [facility] Comment on above: Performed By: #### B MP #### [address] [address] WBC CLUMPS MANY Normal [facility] Comment on above: Performed By: #### B MP #### [address] [address] Lab Specimen Source Normal [facility] Comment on above: Performed By: #### B MP #### [address] [address] URINALYSIS WITH CULTURE IF I NDICATEDon 01-08-2023 Appearance (U) HAZY Normal CLEAR [facility] Comment on above: Performed By: #### B MP #### [place] [id number] Bilirubin Ql (U) Negative Normal NEGATIVE [facility] Comment on above: Performed By: #### B MP #### [place] [id number] Color (U) Yellow Normal STRAW,YELLOW [facility] Comment on above: Performed By: #### B MP #### [place] [id number] Glucose Ql (U) 50(TRACE) Abnormal NEGATIVE [facility] Comment on above: Performed By: #### B MP #### [address] [address] Hemoglobin Ql (U) MODERATE (2+) Abnormal NEGATIVE [facility] Comment on above: Performed By: #### B MP #### [address] [address] Ketones Ql (U) Negative Normal NEGATIVE [facility] Comment on above: Performed By: #### B MP #### [place] [id number] Leukocyte esterase Test strip Ql (U) LARGE (3+) Abnormal NEGATIVE [facility] Comment on above: Performed By: #### B MP #### [address] [address] Nitrite Ql (U) Negative Normal NEGATIVE [facility] Comment on above: Performed By: #### B MP #### [place] [id number] pH (U) 6.0 [pH] Normal 5.0 - 8.[address] [facility] Comment on above: Performed By: #### B MP #### [address] [address] Protein Ql (U) >=500 (3+) Abnormal NEGATIVE [facility] Comment on above: Performed By: #### B MP #### [address] [address] Specific gravity (U) [Rel density] 1.013 Normal 1.005 - 1.[address] [facility] Comment on above: Performed By: #### B MP #### [address] [address] Urobilinogen (U) [Mass/Vol] mg/dL Normal 0.0 - 1.[address] [facility] Comment on above: Performed By: #### B MP #### [address] [address] Color (U) Yellow See Below [facility] [address] DO Work Phone: Comment on above: SOURCE: Reference Ra nge: STRAW,YELLOW Glucose Ql (U) 50(TRACE) Abnormal NEGATIVE [facility] [place] [address] DO Work Phone: Ketones Ql (U) Negative NEGATIVE [facility] [place] [address] DO Work Phone: Leukocyte esterase Test strip Ql (U) LARGE (3+) Abnormal NEGATIVE -[place] [address] DO Work Phone: pH (U) 6.0 [pH] 5.0 - 8.0 -[place] [address] DO Work Phone: Protein (U) [Mass/Vol] >=500 (3+) Abnormal NEGATIVE -[place] [address] DO Work Phone: RBC (U) [#/Vol] MODERATE (2+) Abnormal NEGATIVE MP-Nep hrology- [facility] 3 DO Work Phone: Specific gravity (U) [Rel density] 1.013 1 See Below [facility] 3 DO Work Phone: Comment on above: Reference Range: 1.0 05 - 1.035 URINALYSIS WITH CULTURE IF INDICATED Negative NEGATIVE [facility] Work Phone: URINALYSIS WITH CULTURE IF INDICATED <2.0 0.0 - 1.9 [facility] Work Phone: URINALYSIS WITH CULTURE IF INDICATED HAZY CLEAR -[place] [address] DO Work Phone: URINE CULTURE,BACTERIALon URINE CULTURE,BACTERIAL PATIENT: GENET BOOTH LOCATION: [address]#: [id number] : 47 AGE: SEX: M ORDERED BY: MICHELE CLIFFORD SOURCE: URINE COLLECTED: 01/08/23 13:16 ANTIBIOTICS AT JUDI.: RECEIVED : 01/08/23 23:51 SITE: Supplemental Report R E S U L T S URINE CULTURE,BACTERIAL FINAL 01/11/23 11:37 MULTIPLE ORGANISMS PRESENT, PROBABLE CONTAMINATION PLEASE REPEAT CULTURE. THIS REPORT CONTAINS ADDITIONAL INFORMATION NOT INCLUDED IN PREVIOUS FINAL REPORT. ISOLATE1 : Staphylococcus aureus >100,000 CFU/ML METHICILLIN(OXACILLIN) RESISTANT METHICILLIN(OXACILLIN) RESISTANT STAPHYLOCOCCI ARE RESISTANT TO ALL CURRENTLY AVAILABLE PENICILLINS, BETA-LACTAM/BETA-LACTA PENNY INHIBITOR COMBINATIONS (INCLUDING AMPICILLIN/SULBACTAM, AMOXICILLIN/CLAVULANAT E AND PIPERACILLIN/TAZOBACTA M),CARBAPENEMS AND CEPHALOSPORINS(EXCEPT CEFTAROLINE). ISOLATE2 : Enterobacter cloacae 20,000-80,000 CFU/ML SECOND AND THIRD GENERATION CEPHALOSPORIN RESULTS ARE NOT REPORTED RESISTANCE TO SECOND AND THIRD GENERATION CEPHALOSPORINS MAY DEVELOP DURING THERAPY WITH THESE AGENTS. Organism S aureus Ent cloacae Antibiotic BP INTRP BP INTRP Oxacillin R Trimeth/Sulfa S S Tetracycline S Vancomycin S Ampicillin R Cefazolin R Ciprofloxacin S Cefepime S Nitrofurantoin I Gentamicin S Levofloxacin S Piperc/Tazobact S S=SUSCEPTIBLE I=INTERMEDIATE R=RESISTANT SDD=SUSCEPTIBLE DOSE DEPENDENT NS=NONSUSCEPTIBLE X=REPORTED IN ERROR Normal [facility] Comment on above: Performed By: #### P TINR #### [place] [address] Urinalysis, Microscopicon Urinalysis, Microscopic 1+ Abnormal [facility] 3 DO Work Phone: Urinalysis, Microscopic 2 {/HPF} [facility] 3 DO Work Phone: Urinalysis, Microscopic >182 Abnormal 0-5 [facility] 3 DO Work Phone: Comment on above: SOURCE: Urinalysis, Microscopic MANY -[facility] [place] 3 DO Work Phone: CT ABDOMEN AND PELVIS WO CON TRASTon 12-31-2022 CT ABDOMEN AND PELVIS WO CONTRAST Patient Name: GENET BOOTH STUDY: CT ABDOMEN AND PELVIS WO CONTRAST; 12/31/2022 3:24 pm INDICATION: hydro N13.30: Hydronephrosis. COMPARISON: 11/22/2022 ACCESSION NUMBER(S): [id number] ORDERING CLINICIAN: JOHN BAH TECHNIQUE: CT of the abdomen and pelvis was performed. Contiguous axial images were obtained at 3 mm slice thickness through the abdomen and pelvis. Coronal and sagittal reconstructions at 3 mm slice thickness were performed. No intravenous contrast was administered; positive oral contrast was given. FINDINGS: Please note that the evaluation of vessels, lymph nodes and organs is limited without intravenous contrast. Right ureteral stent decompresses the right collecting system with no residual hydronephrosis seen on the right. The urinary bladder is decompressed by Jamison catheter. There is a thick wall of the bladder. Correlation with urinalysis. Severe chronic left-sided hydronephrosis is again seen with a 2 mm stone seen at the left ureter vesicular junction. 4 mm left lower pole renal stone is unchanged not significantly changed this suggests longstanding obstruction with cortical thinning noted on the left Body habitus limits sensitivity. Marked diverticulosis Gallbladder is been removed. Ectatic vascular aorta. Mild multilevel degenerative disc disease. IMPRESSION: 1. Body habitus limits sensitivity. Right ureteral stent in expected position with marked decompression of the right collecting system. Severe chronic hydronephrosis of the left kidney. Urinary bladder is decompressed by Jamison catheter. Thick-walled appearance is seen. Correlation with urinalysis advised to exclude cystitis. 2-3 mm stone seen at the left ureter vesicular junction unchanged over time with marked diverticulosis. Fatty infiltration of the liver MACRO: None Electronically signed by: JOHN JOYA MD [facility] CT Abdomen and Pelvis withou t Contraston 12-31-2022 CT Abdomen and Pelvis WO contrast Please click on the link to view the study images Normal -Nephrology- [facility] [place] 3 DO Work Phone: LASIX RENOGRAMon 12-23-2022 LASIX RENOGRAM Patient Name: GENET BOOTH STUDY: LASIX RENOGRAM; 12/23/2022 2:43 pm INDICATION: hydro N13.30: Hydronephrosis. COMPARISON: None. ACCESSION NUMBER(S): [id number] ORDERING CLINICIAN: JOHN BAH TECHNIQUE: DIVISION OF NUCLEAR MEDICINE RENAL SCAN, QUANTITATIVE The patient received an intravenous dose of 10.82 mCi of Tc-99m MAG3. Perfusion and sequential images of the kidneys were then acquired over the next 30 minutes . Following that, a post-void view was obtained. Computer quantification of renal function was performed. The patient then received an intravenous dose of 40 milligrams of furosemide (Lasix). Additional sequential images of the kidneys were then acquired over the next 30 minutes. Following that, another post void view was obtained. Computer quantification of diuretic excretory response was then performed. FINDINGS: Angiographic phase demonstrates markedly delayed perfusion to the kidneys, mspbw-wqldggb-jnux-lef t. There is markedly poor radiotracer uptake in the kidneys, cyacr-rtijszb-qvjk-lef t. Evaluation for mechanical urinary obstruction is not possible given poor renal function. IMPRESSION: Markedly poor bilateral renal function, appearing worse on the right relative to the left. In the setting of markedly reduced renal function, evaluation for mechanical urinary obstruction is not possible. I personally reviewed the images/study and I agree with the findings as stated. This study was interpreted at [place], [place]. Electronically signed by: JUDY ROSADO MD [facility] No Panel Informationon 12-23 Normal -Nephrology- [facility] [place] 3 DO Work Phone: Office Visit (Urology)on Follow-up visit Patient Discussion/Summary .Hospital recoreds reviewed Repeat CT stone study ordered BMP ordered COntinue Jamison for now WIll plan voiding trial eventually and Measure PVR Lifestyle change to help prevent UTIs discussed. Encouraged fluid intake. Reviewed Notes from Dr De León F/U AFter BMP and CT stone study Chief Complaint POST OP F/U History of Present IllnessPatient is here for surgery f/u. Hx of hydro. S/P right stent placement and bladder tissue resection on 11/23/22. Recent CR 8.60 on 11/29/22. Prior CR was 15.08 on 11/22/22. Cytology showed no malignant cells. Path report showed chronic inflammation cells. Review of Systems Constitutional: No fever, No chills. Eye: Negative. Ear/Nose/Mouth/Throat: Negative. Respiratory: No shortness of breath, No cough. Cardiovascular: No chest pain, No peripheral edema. Gastrointestinal: No nausea, Genitourinary: Negative except as documented in history of present illness. Hematology/Lymphatics: Patient denies being on blood thinners.. Endocrine: Negative. Immunologic: Not immunocompromised. Musculoskeletal: Negative Integumentary: Negative. Neurologic: Alert and oriented X4. Psychiatric: Negative. Active Problems Problems Hydronephrosis (591) (N13.30) Surgical History Problems History of Ureteral stent placement Family History Mother No pertinent family history Social History Problems Former tobacco use (V15.82) (Z87.891) No alcohol use Allergies Medication iodine Recorded By: Christina Laurent; 12/09/2022 11:20:24 AM Current Meds Medication NameInstruction Acetaminophen 325 MG Oral Tablet Isosorbide Mononitrate 30 MG TB24 Micafungin Sodium 100 MG Intravenous Solution Reconstituted Multi-Vitamin Oral Tablet Ralston Bismuth 262 MG CHEW Tuberculin Syringe 1 ML MISC Vitals Vital Signs Recorded: [id number] 11:18AM [id number] Cndsfogvu65 Sornnc930 lb Physical Exam A/O x 3 in No apparent distress Constitutional: General appearance normal Respiratory: Respiratory effort is normal Gastrointestinal:Abdom en is not tender Genitourinary: Kidneys: Not palpable Bilaterally Bladder: Not palpable or tender Scrotum: No mass. No Hydrocele Epididymis: No spermatocele. Not tender Testicles: no mass Urethra: No Discharge Penis: WNL...No lesions Prostate: deferred Signatures Electronically signed by : John Bah II, MD; Dec 09 2022 11:29AM EST (Author) Normal [employer] BASIC METABOLIC PANELon 06-3 Anion gap [Moles/Vol] 16 mmol/L Normal 10 - 20 [facility] Comment on above: Order Comment: KARIN CASTILLO TO TANISHA WALL , 11/29/2022 06:33 Performed By: #### I GUANAKITO #### [address] [address] Calcium [Mass/Vol] 6.3 mg/dL Low 8.6 - 10.3 [facility] Comment on above: Order Comment: KARIN CASTILLO TO TANISHA WALL , 11/29/2022 06:33 Performed By: #### I RONT #### [address] [address] Chloride [Moles/Vol] 98 mmol/L Normal 98 - 107 [facility] Comment on above: Order Comment: BUN C ALLED RB TO TANISHA WALL , 11/29/2022 06:33 Performed By: #### I RONT #### [address] [address] Creatinine [Mass/Vol] 8.60 mg/dL High 0.50 - 1.30 [facility] Comment on above: Order Comment: BUN C ALLED RB TO TANISHA WALL , 11/29/2022 06:33 Performed By: #### I RONT #### [address] [address] GFR/1.73 sq M.predicted among non-blacks MDRD (S/P/Bld) [Vol rate/Area] 6 mL/min/{1.73_m2} Abnormal >[address] [facility] Comment on above: Order Comment: BUN C ALLED RB TO TANISHA WALL , 11/29/2022 06:33 Result Comment: CALC ULATIONS OF ESTIMATED GFR ARE PERFORMED USING THE 2020 CKD-EPI STUDY REFIT EQUATION WITHOUT THE RACE VARIABLE FOR THE IDMS-TRACEABLE CREATININE METHODS. https://jasn.asnjournals.org/content/early//ASN.54681 34030 Performed By: #### I RONT #### [address] [address] Glucose [Mass/Vol] 104 mg/dL High 74 - 99 [facility] Comment on above: Order Comment: BUN C ALLED RB TO TANISHA WALL , 11/29/2022 06:33 Performed By: #### I RONT #### [address] [address] HCO3 (Bld) [Moles/Vol] 28 mmol/L Normal 21 - 32 [facility] Comment on above: Order Comment: BUN C ALLED RB TO TANISHA WALL , 11/29/2022 06:33 Performed By: #### I RONT #### [place] [id number] Potassium [Moles/Vol] 3.1 mmol/L Low 3.5 - 5.3 [facility] Comment on above: Order Comment: BUN C ALLED RB TO TANISHA WALL , 11/29/2022 06:33 Performed By: #### I RONT #### [place] [id number] Sodium [Moles/Vol] 139 mmol/L Normal 136 - 145 [facility] Comment on above: Order Comment: BUN C ALLED RB TO TANISHA WALL , 11/29/2022 06:33 Performed By: #### I RONT #### [place] [id number] Urea nitrogen [Mass/Vol] 98 mg/dL Critically high 6 - [address] [facility] Comment on above: Order Comment: BUN C ALLED RB TO TANISHA KOCHDER , 11/29/2022 06:33 Result Comment: BUN CALLED RB TO TANISHA WALL , 11/29/2022 06:33 Performed By: #### I RONT #### [place] [id number] CBCon 11-29-2022 Erythrocyte distribution width (RBC) [Ratio] 13.2 % Normal 11.5 - 14.[address] [facility] Comment on above: Performed By: #### I RONT #### [place] [id number] Hematocrit (Bld) [Volume fraction] 25.1 % Low 41.0 - 52.[address] [facility] Comment on above: Performed By: #### I RONT #### [place] [id number] Hemoglobin (Bld) [Mass/Vol] 7.6 g/dL Low 13.5 - 17.[address] [facility] Comment on above: Performed By: #### I RONT #### [place] [id number] MCHC (RBC) [Mass/Vol] 30.3 g/dL Low 32.0 - 36.0 [facility] Comment on above: Performed By: #### I RONT #### [place] [address] MCV (RBC) [Entitic vol] 95 fL Normal 80 - [address] [facility] Comment on above: Performed By: #### I RONT #### [place] [id number] Platelets (Bld) [#/Vol] 224 10*3/uL Normal 150 - [address] [facility] Comment on above: Performed By: #### I RONT #### [place] [address] RBC 2.65 x10E12/L Low 4.50 - 5.[address] [facility] Comment on above: Performed By: #### I RONT #### [place] [address] WBC (Bld) [#/Vol] 9.3 10*3/uL Normal 4.4 - 11.3 [facility] Comment on above: Performed By: #### I RONT #### [place] [address] CORONAVIRUS 2019, SCREEN ASY MPTOMATICon 11-29-2022 SARS-CoV-2 (COVID-19) RNA JACK+probe Ql (Unsp spec) Not detected Normal Not Detected [facility] Comment on above: Result Comment: . This test has received FDA Emergency Use Authorization (EUA) and has been verified by [facility]. This test is only authorized for the duration of time that circumstances exist to justify the authorization of the emergency use of in vitro diagnostic tests for the detection of SARS-CoV-2 virus and/or diagnosis of COVID-19 infection under section 564(b)(1) of the Act, 21 U.S.C. 360bbb-3(b)(1), unless the authorization is terminated or revoked sooner. [facility] is certified under CLIA-88 as qualified to perform high complexity testing. Testing is performed in the [facility] laboratory located at [address] [place] [address]. SARS-CoV-2/Flu/RSV Multiplex Test: Fact sheet for providers: https://www.fda.gov/media/854861/download Fact sheet for patients: https://www.fda.gov/media/960648/download Performed By: #### B MP #### [place] [address] Lab Specimen Source Nasal, Nasopharyngeal Normal [facility] Comment on above: Performed By: #### B MP #### [place] [address] Coronavirus 2019 RNA by PCR, Screening Asymptomticon 11-29-2022 Coronavirus 2019 RNA by PCR, Screening Asymptomtic Not detected Normal See Below [facility] Work Phone: Comment on above: SOURCE: Nasal, Nasop haryngealReference Range: Not Detected.This test has received [facility] Emergency Use Authorization (EUA) and has been verified by [facility]. This test is only authorized for the duration of time that circumstances exist to justify the authorization of the emergency use of in vitro diagnostic tests for the detection of SARS-CoV-2 virus and/or diagnosis of COVID-19 infection under section 564(b)(1) of the Act, 21 U.S.C. 360bbb-3(b)(1), unless the authorization is terminated or revoked sooner. [facility] is certified under CLIA-88 as qualified to perform high complexity testing. Testing is performed in the [facility] laboratory located at [address] [place] [address].SARS-CoV-2/Flu/RSV Multiplex Test: Fact sheet for providers: https://www.fda.gov/media/480526/downloadFact sheet for patients: https://www.fda.gov/media/975390/download Covid 19 Resultson 3 SARS-CoV-2 (COVID-19) RNA JACK+probe Ql (Unsp spec) NEGATIVE COVID-19 Test Coronaviruses are common world-wide and are the cause of many common colds. SARS-COV2 is a new coronavirus that began circulating worldwide in 2019 so we are calling it COVID-19. It has been estimated that four out of five patients with COVID-19 will recover at home without the need for medical attention. Symptoms of COVID-19 may include cough, fever, shortness of breath, loss of taste or smell and other flu-like symptoms including chills, sore muscles, sore throat, and headache. Severe illness is more common in older people and people with other health problems such as high blood pressure, obesity, and immune system problems. If the test is positive, you have COVID-19. You will be contacted by the ordering physicians office and instructed to remain on home isolation, in accordance with CDC guidelines. You may also be contacted by the [facility] to see if any of your close contacts may have been exposed to the virus and need to quarantine. If the test is negative, you likely do not have COVID-19 at this time, but you still may have a different illness that can spread to other people (like Influenza, or the Flu) and could still be at risk for getting COVID-19. We recommend that you stay away from other people to limit the spread of illness until your symptoms are improving and you are fever-free for 24 hours without the use of fever lowering medications such as acetaminophen or ibuprofen. No test is 100% accurate so if you are still concerned you may have COVID-19, talk to your doctor about the need to continue to stay away from others. Medicines Unless your provider told you not to use the following: Acetaminophen (Tylenol and others) is generally safe. Anti-inflammatory medications, such as Ibuprofen (Advil or Motrin) or Naproxen (Aleve) can also be used. Uhyl-bxy-aroigjw cough and cold medicines can be used according to the instructions on the package. Some rjsy-hcf-mkunqim medicines also contain acetaminophen. Make sure you are not taking more than your recommended dose. For those not hospitalized, there is no specific treatment available for this illness. Antibiotics do not treat Coronaviruses. Follow-Up Follow up with your doctor by scheduling a virtual visit or consider follow-up at one of our urgent care fever clinics. If you are having difficulty breathing, or are very weak and having difficulty standing, this is a medical emergency. Call 911 or have someone take you to the nearest emergency room immediately. If possible, wear a facemask. Additional guidance from the CDC for patients who tested POSITIVE for COVID-19 How to isolate: Isolate yourself in a specific room at home and limit your contact with others. Use a separate bathroom from other members of the household, when possible. Leave home only to get essential medical care. Do not go to work, school or public areas. Avoid using public transportation, ride-sharing, or taxis. Restrict contact with pets and other animals. If you must care for your pet or be around animals while you are sick, wash your hands before and after your interaction and wear a facemask. Make sure that shared spaces in the home have good airflow, such as by an air conditioner or an opened window, weather permitting. Personal Hygiene Procedures: Wear a face mask when in the same room as other people or pets. If a face mask interferes with your breathing, others should wear a mask when sharing space with you. Frequent hand-washing: wash your hands with soap and water for at least 20 seconds. If soap and water are not available, use alcohol-based hand garage door technician. Avoid touching your eyes, nose, and mouth with unwashed hands. Household Hygiene Procedures: Avoid sharing personal household items such as dishes, glassware, cups, eating utensils, towels or bedding with other people or pets in your home. After use, these items should be washed with soap and hot water. Disinfect all high-touch surfaces every day with antibacterial cleaning solutions such as Lysol wipes, bleach, cleansers, etc. High-touch surfaces include tabletops, doorknobs, bathroom fixtures, toilets, phones, keyboards, tablets and bedside tables. Immediately clean any surfaces that may have blood, poop or body fluids on them, using antibacterial cleaning solutions such as Lysol wipes, bleach, cleansers, etc. If clothing or bedding come into contact with blood, poop or body fluids, they should be washed immediately. Follow the directions on the laundry detergent and clothing labels but hot water is recommended when possible. Stopping home isolation precautions: If possible, consult your doctor before stopping home isolation precautions. According to the CDC, you can discontinue home isolation precautions when you have met both of these criteria: Your fever and respiratory symptoms have been gone for 24 jair (more content not included)... Normal [facility] Discharge [id number] Discharge Profile2 Discharge Orders: Anticipated Discharge Date: Anticipated Discharge [id number] Code Status: Code Status at Discharge: Full Code DNR Order Additional Instructions (peds only): Activity: activity as tolerated. Diet: Dietlow fat Line Care (Homecare ONLY): Homecare ONLY Lines: Adult Line Care (Gold Form or Patient Managed): Line Care for Adults. Access Type: Midline. FLUSH INSTRUCTIONS. Heparin flush 10 unit/mL Injectable 5 mL intravenous every 8 hours and as needed- via Midline. Sodium Chloride 0.9% Injectable 10 mL Intravenous flush every 8 hours and as needed - via Midline. PICC/MIDLINE INSTRUCTIONS. Avoid using syringes smaller than 6 mLs. Notify MD of inability to obtain blood return or flush catheter. Notify MD if line becomes sluggish to draw or flush. Do not use arm that contains the line for BP or phlebotomy. Warm compress to arm containing line, intermittently every 4 hours for 24 hours post insertion and as needed. Notify MD of temp > 100.2 F, shortness of breath, elevated heart rate or abnormal rhythm. Notify MD of bleeding, swelling, purluent draining at exit site, and/or catheter dislodgement. Avoid infusing Hyper-Osmolor, irritating or vesicant solutions. Change transparent dressing, stat lock and biopatch every 7 days and as needed. Cleanse with chloraprep. Use betadine only if patient has allergy to chloraprep. Change 24 hours after initial insertion.. Change transparent dressing and stat lock every 7 days and as needed.. Gauze and tape dressing every 48 hours as needed. Measure mid-upper arm circumference. Measure external catheter length. GENERAL LINE CARE INSTRUCTIONS. Tubing change: every 4 days and as needed. Exception: lipids and blood products change within 24 hours of infusion.. Cap change: every 7 days and as needed. Change within 24 hours of blood or lipid infusion.. Gloves should be worn with handling of central venous catheter. Call Physician if presence of redness, swelling, drainage or purulence at insertion site. Gold Form Orders: Care Recommendation: I recommend that INPATIENT care is required at:Skilled Estimated StayConvalescent stay < 30 days PrognosisFair Rehab Potential/FunctionImpr ove Provider CertificationATTENDING : I certify that inpatient care is required at the level recommended above. To the best of my knowledge, all information provided about the individual is a true and accurate reflection of the individual's condition. Attending ProviderGiovanni Pardo Attending Provider [id number] Therapy Orders: Occupational Therapy OrdersEval and Treat ([facility]) Physical Therapy OrdersEval and Treat ([facility]) Provider FINAL REVIEW of Orders: Final Review: Final Review of Medication Reconciliation and Orders Completedby Physician Reviewing ProviderGiovanni Pardo MD at 29-Nov-2022 13:02:36 Appointments: Follow-Up Appointment 01: Physician/Dept/Service Primary Care Physician/Facility Physician Reason for Referralf/u hsopital stay Call to Schedule in1 week Follow-Up Appointment 02: Physician/Dept/Service Dr. De León Nephrology Reason for Referralf/u hospital stay Call to Schedule in1 week [id number] [facility] Phone [phone] CommentsPlease have labs drawn 1-2 days prior to appointment, labs are ordered through Dr. De León's office. Follow-Up Appointment 03: Physician/Dept/Service Dr. Bah Urology Reason for Referralf/u hospital stay, urinary retention, jamison catheter Scheduled Date/[id number] 11:00 [id number] [facility] [phone] Other Clinician Instructions: Other Instructions: Nursing InstructionsUrinary catheter to gravity for urinary retention. Jamison catheter care twice a day with soap and water. Nutrition InstructionsEnsure Plus High Protein twice a day. Respiratory InstructionsOxygen 1-6 LPM NC as needed, titrate to maintain SPo2 greater than 90%. Daily am pulse ox when on baseline oxygen. Other Clinician InstructionsMicafungin stop date 12/10/2022 Electronic Signatures: Wendy Tristan (KAREN) (Signed 29-Nov-2022 13:04) Authored: Discharge Orders, Appointments, Other Clinician Instructions Giovanni Pardo) (Signed 29-Nov-2022 13:02) Authored: Discharge Orders, Gold Form Orders, Provider FINAL REVIEW of Orders, Appointments, Gold Form - Civil Engineering Assistant Summary Last Updated: 29-Nov-2022 13:04 by Wendy Tristan) [facility] - Chemistry and C hemistry - challengeon 11-29-2022 Anion gap [Moles/Vol] 16 mmol/L 10 - 20 MP- Urology-[place]iall [place] Work Phone: Calcium [Mass/Vol] 6.3 mg/dL below low threshold 8.6 - 10.3 HH-Oeeoexl-Nyk land Work Phone: Chloride [Moles/Vol] 98 mmol/L 98 - 107 MP-U rology-[place] Work Phone: CO2 [Moles/Vol] 28 mmol/L 21 - 32 MP-Urolog y-[place] Work Phone: Creatinine [Mass/Vol] 8.60 mg/dL above high threshold See Below MB-Rgannmj-Rfi land Work Phone: Comment on above: Reference Range: 0.5 0 - 1.30 Glucose [Mass/Vol] 104 mg/dL above high threshold 74 - 99 NC-Asomwyw-Pem land Work Phone: Potassium [Moles/Vol] 3.1 mmol/L below low threshold 3.5 - 5.3 SU-Mchttoq-Awj land Work Phone: Sodium [Moles/Vol] 139 mmol/L 136 - 145 MP-Uro logy-[place]l [place] Work Phone: Urea nitrogen [Mass/Vol] 98 mg/dL Critically high 6 - 23 HX-Wryycow-Vrq land Work Phone: Comment on above: BUN CALLED RB TO GWEN WALL , 11/29/2022 06:33 Laboratory - Hematology and Cell countson 11-29-2022 Erythrocyte distribution width (RBC) [Ratio] 13.2 % See Below YR-Qwiyvwm-Lml land Work Phone: Comment on above: Reference Range: 11. 5 - 14.5 Hematocrit (Bld) [Volume fraction] 25.1 % below low threshold See Below EE-Jznyksw-Att land Work Phone: Comment on above: Reference Range: 41. 0 - 52.0 Hemoglobin (Bld) [Mass/Vol] 7.6 g/dL below low threshold See Below HE-Njjmbzb-Jvw land Work Phone: Comment on above: Reference Range: 13. 5 - 17.5 MCHC (RBC) [Mass/Vol] 30.3 g/dL below low threshold See Below OW-Qawvhpi-Vda land Work Phone: Comment on above: Reference Range: 32. 0 - 36.0 MCV (RBC) [Entitic vol] 95 fL 80 - 100 ZS-Ktrvskf-Vhe land Work Phone: Platelets (Bld) [#/Vol] 224 10*3/uL 150 - 450 ZU-Umppbxu-Elp land Work Phone: RBC (Bld) [#/Vol] 2.65 {x10E12/L} below low threshold See Below DU-Qnfxxel-Bqh land Work Phone: Comment on above: Reference Range: 4.5 0 - 5.90 WBC (Bld) [#/Vol] 9.3 10*3/uL 4.4 - 11.3 MP-Uro logy-SayNow Work Phone: No Panel Informationon 11-29 6 {mL/min/1.73m2} Abnormal >90 MP-Urol ogyPllop.it Work Phone: Comment on above: CALCULATIONS OF ALEJANDRA MATED GFR ARE PERFORMED USING THE 2020 CKD-EPI STUDY REFIT EQUATION WITHOUT THE RACE VARIABLE FOR THE IDMS-TRACEABLE CREATININE METHODS.https://jasn.asnjournals.org/content//A SN.2723911068 Order Reconciliationon 11-29 Order Reconciliation Page 1 Discharge Reconciliation Document Reconciliation Type: Discharge requested on behalf of Giovanni Pardo (Physician) done by Giovanni Pardo) Discharge - Reconciliation: 29-Nov-2022 12:28 by: Giovanni Pardo) Home Medications EnteredHOME MEDICATIONS AT DISCHARGE DateReconciliation Comment/ Additional Information Multiple Vitamins oral tablet 1 tab(s) orally once a day 20-Nov-2022 10:04 Multiple Vitamins oral tablet 1 tab(s) orally once a day 20-Nov-2022 10:04 Multiple Vitamins oral tablet is continued as Multiple Vitamins oral tablet Pepto-Bismol 262 mg oral tablet 2 tab(s) orally once a day, As Needed 20-Nov-2022 10:04 Pepto-Bismol 262 mg oral tablet 2 tab(s) orally once a day, As Needed 20-Nov-2022 10:04 Pepto-Bismol 262 mg oral tablet is continued as Pepto-Bismol 262 mg oral tablet Current OrdersDateHOME MEDICATIONS AT DISCHARGE DateReconciliation Comment/ Additional Information Acetaminophen Tablet (TYLENOL)DOSE = 650 mg Oral Every 4 Hours, PRN Pain - Mild (1-3) 20-Nov-2022 18:36 Acetaminophen is not required Acetaminophen Tablet (TYLENOL)DOSE = 650 mg Oral Every 4 Hours, PRN Temp Greater Than or Equal to 38.0 C 20-Nov-2022 18:36 acetaminophen 325 mg oral tablet 2 tab(s) orally every 4 hours, As needed, Temp Greater Than or Equal to 38.0 C 29-Nov-2022 12:25 Acetaminophen is continued as acetaminophen 325 mg oral tablet ALPRAZolam Tablet (XANAX)DOSE = 0.25 mg Oral Every 8 Hours, PRN Anxiety 24-Nov-2022 18:24 ALPRAZolam is not required Darbepoetin (Non-ESRD) Injectable (ARANESP)DOSE = 60 microgram(s) SubCutaneous Every 7 Days 28-Nov-2022 11:02 Darbepoetin (Non-ESRD) Injectable is not required Famotidine Tablet (PEPCID)DOSE = 20 mg Oral Daily 23-Nov-2022 10:43 Famotidine is not required Heparin Flush 10 unit/ mL PF Injectable via Midline CatheterVolume = 5 mL IntraVenous Flush Every 12 HoursClinician Notes: When patient has double lumen, flush both lumens 29-Nov-2022 07:37 Heparin Flush 10 unit/ mL PF Injectable is not required Heparin Flush 10 unit/ mL PF Injectable PRN via Midline CatheterVolume = 5 mL IntraVenous Flush According to Flush Policy PRN: To Maintain Line PatencyClinician Notes: After blood draws 29-Nov-2022 07:37 Heparin Flush 10 unit/ mL PF Injectable PRN is not required Isosorbide Mononitrate Extended Release Tablet, Extended Release (IMDUR)DOSE = 30 mg Oral Daily 26-Nov-2022 07:41 isosorbide mononitrate 30 mg oral tablet, extended release 1 tab(s) orally once a day 29-Nov-2022 12:27 Prescription is created for isosorbide mononitrate 30 mg oral tablet, extended release Lidocaine 1% Injectable (PICC KIT) DOSE = 1 mL IntraDermal Once, PRN PICC nurse may administer Pre PICC insertionClinician Notes: May Give 1ml to 5ml to anesthetize insertion site for patient comfort. 29-Nov-2022 07:37 Lidocaine 1% Injectable (PICC KIT) is not required Lidocaine 2% (UROJET) Topical Gel DOSE = 5 mL Topical Every 4 Hours, PRN for pain with urinary catheterizationApply to Urethra 22-Nov-2022 09:44 Lidocaine 2% (UROJET) Topical Gel is not required Loperamide Capsule (IMODIUM)DOSE = 2 mg Oral Every 4 Hours, PRN Loose Stools 26-Nov-2022 15:42 Loperamide is not required Micafungin IV Piggy Back in Sodium Chloride 0.9% 100 mL (MICAMINE)DOSE = 100 mg Every 24 HoursRecommended Infusion Time: 1 hour(s) 26-Nov-2022 13:08 micafungin 100 mg intravenous injection 100 milligram(s) intravenously once a day 29-Nov-2022 12:27 Prescription is created for micafungin NIFEdipine (PROCARDIA XL) Extended Release Tablet, Extended ReleaseDOSE = 30 mg Oral Daily 26-Nov-2022 12:37 NIFEdipine 30 mg oral tablet, extended release 1 tab(s) orally once a day 29-Nov-2022 12:25 Prescription is created for NIFEdipine 30 mg oral tablet, extended release Nystatin 100,000 Units/ gram Topical Powder (MYCOSTATIN, NYSTOP, PEDI-DRI)DOSE = 1 application(s) Topical 3 Times a DayApply to Groin 21-Nov-2022 16:09 Nystatin 100,000 Units/ gram Topical is not required Ondansetron Injectable (ZOFRAN)DOSE = 4 mg IntraVenous Push Every 4 Hours, PRN Nausea and/or Vomiting 20-Nov-2022 18:36 Ondansetron Injectable is not required Sodium Chloride 0.9% Injectable Flush via Midline CatheterVolume = 10 mL IntraVenous Flush Every 12 HoursClinician Notes: When patient has double lumen, flush both lumens 29-Nov-2022 07:37 Sodium Chloride 0.9% Injectable Flush is not required Sodium Chloride 0.9% Injectable Flush PRN via Midline CatheterVolume = 10 mL IntraVenous Flush According to Flush Policy PRN: To Maintain Line PatencyClinician Notes: After each administration of a medicationAfter the administration of blood or b 29-Nov-2022 07:37 Sodium Chloride 0.9% Injectable Flush PRN is not required Sodium Chloride 0.9% Injectable Flush PRN via Midline CatheterVolume = 20 mL IntraVenous Flush According to Flush Policy PRN: To Maintain Line PatencyClinician Notes: After blood draws 29-Nov-2022 07:37 Sodium Chl (more content not included)... Normal [facility] Rehab Note-individual therap yon 11-29-2022 Rehab Note-individual therapy Rehab: Info: Disciplinephysical inhalation therapy teacher Mode of Treatmentindividual therapy; physical therapy Time IN10:48 Time OUT11:07 Total Treatment [id number] Patient in ... at end of sessionchair; alarm on Patient Effortadequate Line and Tubesurethral catheter indwelling Pre Treatment Patient Positionsitting Pre Treatment SpO2 (%)91 % Pre Treatment Oxygen Deliveryroom air During Treatment Patient Positionstanding During Treatment SpO2 (%)91 % During Treatment Oxygen Deliveryroom air Post Treatment Patient Positionsitting Post Treatment SpO2 (%)92 % Post Treatment Oxygen Deliveryroom air Vision/Cognition: Affect/Mental Status (Cognitive)WFL Mobility/Tone: Transfer Assessment/Interventio nssit to stand transfer Sit-Stand [place] (Transfers)contact guard Sit-Stand Assistive Device (Transfers)gait belt; walker, front-wheeled Gait/Stairs Locomotiongait/ambulat ion independence; gait/ambulation assistive device; distance ambulated Gait Locomotion (Gait)contact guard; 1 person assist Distance in Feet (Gait Training)50ft. Safety Issues Impacting Function (Mobility)positioning of assistive device; insight into deficits/self awareness; awareness of need for assistance Impairments Impacting Function (Mobility)balance; cognition; endurance/activity tolerance; strength; shortness of breath Motor: Lower Extremity (Therapeutic Exercise)B/L: HR/TR's/LAQ's/seated marches/hip abd/hip add 2 x 10 Standing toe taps, fwds x3 ea Sensory: Pre-Treatment Pain Rating2/10 Post-Treatment Pain Rating2/10 Comment, Pre/Post Treatment Painright hip, left knee Outcomes Tools: Turning from your back to your side while in a flat bed without using bedrails a lot Moving from lying on your back to sitting on the side of a flat bed without using bedrailsa lot Moving to and from bed to chair (including a wheelchair)a little Standing up from a chair using your arms (e.g. wheelchair or bedside chair)a little To walk in hospital rooma little Climbing 3-5 steps with railinga lot AM-PAC (PT) Total Score15 Short Term Goals: Bed Mobility: Date [id number] Bed Mobility: [place] Level Goalindependent Bed Mobility: Physical Assist Level Goalset-up Bed Mobility: Time Frame for Goal1 wk Transfer: Established Transfer: Transfer Type Goalall transfers Transfer: [place] Level Goalmodified independent Transfer: Physical Assist Level Goalset-up Transfer: Assistive Device Goalrolling walker Transfer: Time Frame for Goal1 wk Gait: Established Gait: [place] Level Goalminimum assist (75% patients effort) Gait: Physical Assist Levelset-up; 1-person assist Gait: Assistive Device Goalrolling walker Gait: Distance [id number] Gait: Time Frame for Goal1 wk Stair: Established Stair: [place] Level Goalmoderate assist (50% patients effort) Stair: Physical Assist Levelset-up; 1-person assist Stair: Goal Detailsx5 steps with BHR Stair: Time Frame for Goal1 wk Outcome Summary: Progress: Physical Therapyprogress towards functional goals is fair Outcome Summary: Physical TherapyPt. sitting up in recliner upon arrival, agreeable to therapy. Pt. states he did not sleep well last night. Pt. tolerated increased reps with exercises without c/o increased sx.'s. Trial standing toe taps which patient states that the legs feel okay but he gets this overwhelming feeling in his head and upper body and needed to sit back down. After a short break, patient walked in room about 50ft with FWW, no LOB noted. Pt. does fatigue easily and SOB is noted. Pt. returned to chair with call light within reach and alarm on. Continue with POC and progress per tolerance to improve endurance and ease with mobility and transfers. MB Electronic Signatures: Asha Zhou (CONSERVATION OR HERITAGE ARCHITECT) (Signed 29-Nov-2022 14:11) Authored: Info, Vision/Cognition, Mobility/Tone, Motor, Sensory, Outcomes Tools, Short Term Goals, Outcome Summary Edilia Burch (PT) (Signed 29-Nov-2022 14:32) Co-Signer: Info, Vision/Cognition, Mobility/Tone, Motor, Sensory, Outcomes Tools, Short Term Goals, Outcome Summary Last Updated: 29-Nov-2022 14:32 by Edilia Burhc (PT) [facility] Rehab Note-staff occupational therapist apyon 11-29-2022 Rehab Note-occupational therapy Rehab: Info: Disciplineoccupational therapist Mode of Treatmentoccupational therapy Time IN08:49 Time OUT09:13 Total Treatment [id number] Patient in ... at end of sessionchair; alarm on Communicated with ... at end of sessionbedside nurse; informed RN Deepika of reported dizziness and BP reading Patient Effortexcellent Symptoms Noted During/After Treatmentdizziness Treatment Considerations/Comment sPt very pleasant and willing to work with therapy. Pt reporting he does feel very weak in his legs. Pt requesting to have a different chair than recliner, cushion and alarm placed in wooden chair Patient/Family/Caregiv er Comments/ObservationsP t demos asymmetrical posture noted to be laterally shifted to L side Line and Tubesurethral catheter indwelling Pre Treatment Oxygen Deliveryroom air During Treatment Oxygen Deliveryroom air Post Treatment Patient Positionsitting Post Treatment Blood Pressure [id number] Post Treatment Diastolic (mm Hg)61 mmHg Post Treatment Oxygen Deliveryroom air Vision/Cognition: Affect/Mental Status (Cognitive)WFL Orientation Status (Cognition)oriented x 4 Mobility/Tone: Bed Mobility Assessment/Interventio nssupine to sit Lslscd-jr-Kqj [place] (Bed Mobility)modified independence; 1 person assist Transfer Assessment/Interventio nsstand to sit transfer; sit to stand transfer; bed to chair transfer Bed-Chair [place] (Transfers)contact guard; 1 person assist Bed-Chair Assistive Device (Transfers)walker, front-wheeled; gait belt Sit-Stand [place] (Transfers)contact guard Sit-Stand Assistive Device (Transfers)gait belt; walker, front-wheeled Stand-Sit [place] (Transfers)contact guard; 1 person assist Stand-Sit Assistive Device (Transfers)walker, front-wheeled; gait belt Comment, Gait/Stairs [id number] ft CGA, pt reporting some dizziness but able to stop and take breaks to regain self Impairments Impacting Function (Mobility)endurance/ac tivity tolerance; strength ADL: BADL Assessment/Interventio nlower body dressing [place] Level (Lower Body Dressing)socks; contact guard assist Position (Lower Body Dressing)unsupported sitting Comment (Lower Body Dressing)pt demos ability to don socks sitting EOB Impairments, BADL Safety/Performanceendu mauricio/activity tolerance; strength Sensory: Pre-Treatment Pain Rating0/10 - no pain Post-Treatment Pain Rating0/10 - no pain Sensory General Assessmentno sensation deficits identified Outcomes Tools: Putting on and taking off regular lower body clothinga little Bathing (including washing, rinsing, drying)a little Toileting, which includes using toilet, bedpan or urinala little Putting on and taking off regular upper body clothingnone Taking care of personal grooming such as brushing teethnone Eating Mealsnone AM-PAC (OT) Total Score21 Short Term Goals: Strength: Established Strength Train: GoalRUE MMT to be 4+/5; LUE 4/5 Strength Train: Upper Extremities Goalshoulder Left: Right: elbow Strength Train: Time Frame for Goal5 days Strength Train: Outcome Strength Train: Goal Outcomegoal ongoing; Pt demos good BUE strength, quick to fatigue Energy Conservation: Established Energy Conservation: Goal DetailsPatient will be able to self demonstrate utilization of energy conservation strategies to reduce shortness of breath with daily functional tasks to reduce falling. Energy Conservation: Time Frame for Goal5 days Energy Conservation: Outcome Energy Conservation: Goal Outcomegoal ongoing; Pt demos ability to maintain EOB x10 minutes with PLB Bathing Lower Body: Established Bathing Lower Body: [place] Level Goalmodified independent Bathing Lower Body: Physical Assist Level Goalset-up Bathing Lower Body: Assistive Device Goalshower chair; grab bars; detail sergeant Bathing Lower Body: Time Frame for Goal5 days Bathing Lower Body: Outcome Bathing Lower Body: Goal Outcomegoal ongoing Lower Body Dressing: Established Lower Body Dressing: [place] Level Goalmodified independent Lower Body Dressing: Assistive Device Goalreacher; sock-aid Lower Body Dressing: Time Frame for Goal5 days Lower Body Dressing: Outcome Lower Body Dressing: Goal Outcomegoal ongoing; CGA EOB this date Education: Learnerpatient Outcome Evaluation2=meets goals/outcomes Topicrehab plan of care; home program Outcome Summary: Progress: Occupational Therapyprogress toward functional goals as expected Therapy Frequency (OT Eval)5 times/wk Predicted Duration of Therapy Ixaxvypawnue37 days Outcome Summary: Occupational TherapyPt demos good progress towards goals. pt demos ability to maintain EOB x10 minutes SBA. pt demos some dizziness with functional activity. pt would continue to benefit from skilled OT intervention to address current goals and re (more content not included)... Normal [facility] CBCon 11-28-2022 Erythrocyte distribution width (RBC) [Ratio] 13.2 % Normal 11.5 - 14.[address] [facility] Comment on above: Performed By: #### P TINR #### [place] [address] Hematocrit (Bld) [Volume fraction] 24.6 % Low 41.0 - 52.[address] [facility] Comment on above: Performed By: #### P TINR #### [place] [id number] Hemoglobin (Bld) [Mass/Vol] 7.4 g/dL Low 13.5 - 17.[address] [facility] Comment on above: Performed By: #### P TINR #### [address] [address] MCHC (RBC) [Mass/Vol] 30.1 g/dL Low 32.0 - 36.0 [facility] Comment on above: Performed By: #### P TINR #### [address] [address] MCV (RBC) [Entitic vol] 95 fL Normal 80 - [address] [facility] Comment on above: Performed By: #### P TINR #### [address] [address] Platelets (Bld) [#/Vol] 216 10*3/uL Normal 150 - [address] [facility] Comment on above: Performed By: #### P TINR #### [address] [address] RBC 2.60 x10E12/L Low 4.50 - 5.[address] [facility] Comment on above: Performed By: #### P TINR #### [place] [id number] WBC (Bld) [#/Vol] 8.0 10*3/uL Normal 4.4 - 11.3 [facility] Comment on above: Performed By: #### P TINR #### [place] [id number] COMPREHENSIVE PANELon 11-28- 2022 Albumin [Mass/Vol] 2.7 g/dL Low 3.4 - 5.0 [facility] Comment on above: Performed By: #### P TINR #### [place] [address] ALP [Catalytic activity/Vol] 57 U/L Normal 33 - [address] [facility] Comment on above: Performed By: #### P TINR #### [address] [address] ALT [Catalytic activity/Vol] 18 U/L Normal 10 - [address] [facility] Comment on above: Result Comment: Rhea ents treated with Sulfasalazine may generate falsely decreased results for ALT. Performed By: #### P TINR #### [address] [address] Anion gap [Moles/Vol] 16 mmol/L Normal 10 - 20 [facility] Comment on above: Performed By: #### P TINR #### [address] [address] AST [Catalytic activity/Vol] 26 U/L Normal 9 - [address] [facility] Comment on above: Performed By: #### P TINR #### [address] [address] Bilirubin [Mass/Vol] 0.4 mg/dL Normal 0.0 - 1.2 [facility] Comment on above: Performed By: #### P TINR #### [address] [address] Calcium [Mass/Vol] 6.4 mg/dL Low 8.6 - 10.3 [facility] Comment on above: Performed By: #### P TINR #### [address] [address] Chloride [Moles/Vol] 97 mmol/L Low 98 - 107 [facility] Comment on above: Performed By: #### P TINR #### [address] [address] Creatinine [Mass/Vol] 8.95 mg/dL High 0.50 - 1.30 [facility] Comment on above: Performed By: #### P TINR #### [address] [address] GFR/1.73 sq M.predicted among non-blacks MDRD (S/P/Bld) [Vol rate/Area] 6 mL/min/{1.73_m2} Abnormal >[address] [facility] Comment on above: Result Comment: CALC ULATIONS OF ESTIMATED GFR ARE PERFORMED USING THE 2020 CKD-EPI STUDY REFIT EQUATION WITHOUT THE RACE VARIABLE FOR THE IDMS-TRACEABLE CREATININE METHODS. https://jasn.asnjournals.org/content/early/ASN.08213 80693 Performed By: #### P TINR #### [address] [address] Glucose [Mass/Vol] 94 mg/dL Normal 74 - 99 [facility] Comment on above: Performed By: #### P TINR #### [address] [address] HCO3 (Bld) [Moles/Vol] 30 mmol/L Normal 21 - 32 [facility] Comment on above: Performed By: #### P TINR #### [address] [address] Potassium [Moles/Vol] 3.3 mmol/L Low 3.5 - 5.3 [facility] Comment on above: Performed By: #### P TINR #### [address] [address] Protein [Mass/Vol] 5.6 g/dL Low 6.4 - 8.2 [facility] Comment on above: Performed By: #### P TINR #### [address] [address] Sodium [Moles/Vol] 140 mmol/L Normal 136 - 145 [facility] Comment on above: Performed By: #### P TINR #### [address] [address] Urea nitrogen [Mass/Vol] 115 mg/dL High 6 - [address] [facility] Comment on above: Result Comment: This is a critical result. Per Laboratory policy, critical results for this test only qualify to the call list once per 24 hours. Performed By: #### P TINR #### [address] [address] Daily Progress Note-Medicine on 11-28-2022 Daily Progress Note-Medicine Service: Medicine Subjective Data: GENET BOOTH is a 77 year old Male who is Hospital Day # 9 and POD #5 for 1. Cystoscopy w/Retrogrades BILATERAL, L STENT, BLADDER TISSUE RESECTION; No significant anasarca or change in mentation or shortness of breath or nausea vomiting or palpitations or fever chills Monitoring kidney function. Objective Data: Objective Information: T PRBPMAPSpO2 [id number] 0% Date/Time11/28 15: 15: 15: 15: 20: 15:26 Range(36.6C - 37.5C ) (82 - 96 ) (16 - 20 ) (121 - 156 )/ (52 - 87 ) (82 - 82 ) (90% - 93% ) Highest temp of 37.5 C was recorded at 11/27 16:55 Pain reported at 11/28 19:26: 0 = None Physical Exam Narrative: Physical Exam: Constitutional: awake/alert/oriented x3, not in acute distress, obese Eyes: PERRL, EOMI, clear sclera ENMT: normal hearing, mucous membranes moist, no pharyngeal erythema or exudates Head/Neck: neck supple, no apparent injury, no JVD, no lymphadenopathy, trachea midline Respiratory/Thorax: patent airways, clear to auscultation bilaterally, no crackles or wheezing or rhonchi Cardiovascular: Regular, rate and rhythm, no murmurs, 2+ equal pulses of the extremities Gastrointestinal: Distended from obesity, positive bowel sounds, soft, non-tender, no rebound tenderness or guarding, no masses palpable, no organomegaly Extremities: no edema Neurological: intact senses, motor, response and reflexes, normal strength, babinski negative Psychological: Appropriate mood and behavior Skin: warm, no rashes Medication: Medications: Continuous Medications No continuous medications are active Scheduled Medications 1. Darbepoetin (Non-ESRD) Injectable: 60 microgram(s) SubCutaneous Every 7 Days 2. Famotidine: 20 mg Oral Daily 3. Isosorbide Mononitrate Extended Release: 30 mg Oral Daily 4. Micafungin IV Piggy Back: 100 mg IntraVenous Piggyback Every 24 Hours 5. NIFEdipine (PROCARDIA XL) Extended Release: 30 mg Oral Daily 6. Nystatin 100,000 Units/ gram Topical: 1 application(s) Topical 3 Times a Day PRN Medications 1. Acetaminophen: 650 mg Oral Every 4 Hours 2. Acetaminophen: 650 mg Oral Every 4 Hours 3. ALPRAZolam: 0.25 mg Oral Every 8 Hours 4. Lidocaine 2% (UROJET) Topical Gel: 5 mL Topical Every 4 Hours 5. Loperamide: 2 mg Oral Every 4 Hours 6. Ondansetron Injectable: 4 mg IntraVenous Push Every 4 Hours Recent Lab Results: Results: CBC: 11/28/2022 04:43 \ Hgb / \ 7.4 L / WBC Plt 8.0 216 / Hct \ / 24.6 L \ RBC: 2.60 L MCV: 95 CMP: 11/28/2022 04:42 NA+ Cl- BUN / 140 97 L 115 H / Glucose ----- 94 K+ HCO3- Creat \ 3.3 L 30 8.95 H \ \ T Bili / \ 0.4 / AST x ---- x ALT 26 x ---- x 18 / Alk P \ / 57 \ Calcium : 6.4 L Anion Gap : 16 Albumin : 2.7 L T Protein : 5.6 L Radiology Results: Results: Impression: MODERATE TO EXTENSIVE RIGHT HYDRONEPHROSIS AND HYDROURETER EXTENDING ALL THE WAY TO THE UVJ, BUT NO STONE ANYWHERE ON THE RIGHT SIDE OF THE URINARY TRACT THE MILDER LEFT HYDRONEPHROSIS AND HYDROURETER IS DUE TO A LESS THAN 3 MM (TOO SMALL TO ACCURATELY MEASURE ATTENUATION) OBSTRUCTING STONE AT OR WITHIN 1 CM OF THE LEFT UVJ ADDITIONAL NONOBSTRUCTING LEFT NEPHROLITHIASIS SIGNIFICANT PARENCHYMAL RENAL ATROPHY THROUGHOUT ALL OF THE LEFT KIDNEY HAS DEVELOPED SOMETIME SINCE CT FROM April, SUSPECT CYSTITIS. INFLAMMATORY FAT STRANDING SURROUNDS THE URINARY BLADDER NO URINE LEAK/URINOMA NO SEPARATE ACUTE PROCESS OUTSIDE THE URINARY TRACT SUCH ACUTE DIVERTICULITIS CT Abdomen and Pelvis without Contrast [Nov 22 2022 3:33PM] Impression: Bilateral hydronephrosis is worsened since the CT of 04/28/2018; there is also debris versus irregular urothelial thickening involving the right renal pelvis through the right ureteropelvic junction, as well as within a calyx in the interpolar region. While this could represent nonspecific blood products or infectious material, foci of urothelial neoplasm could also have this appearance. Dedicated urologic evaluation is recommended for further assessment. Ultrasound Renal Bilateral [Nov 21 2022 3:51PM] Assessment and Plan: Daily Risk Screen: Does patient have an indwelling urinary catheteryes Plan for indwelling urinary catheter removal todayyes Comorbidities: ComorbidityOther Code Status: Code StatusFull Code Assessment: 77-year-old male with a past medical history of Prostate cancer s/p prostatectomy, bladder tumor, urethral stricture, obesity, obstructive sleep apnea, hypertension, left knee chronic pain, hypothyroidism, gout, hyperlipidemia, depression and a questionable poor compliance/adhe (more content not included)... Normal [facility] Daily Progress Note-Nephrolo aelida 11-28-2022 Daily Progress Note-Nephrology Service: Nephrology Subjective Data: GENET BOOTH is a 77 year old Male who is Hospital Day # 9 and POD #5 for 1. Cystoscopy w/Retrogrades BILATERAL, L STENT, BLADDER TISSUE RESECTION; Patient seen and examined at the bedside this morning Sitting comfortably in bedside chair No new issues or complaints at this time. Objective Data: Objective Information: T PRBPMAPSpO2 [id number] 1% Date/Time11/28 7: 7: 7: 7: 20: 7:31 Range(36.6C - 37.5C ) (82 - 96 ) (16 - 20 ) (139 - 156 )/ (52 - 87 ) (82 - 82 ) (91% - 93% ) Highest temp of 37.5 C was recorded at 11/27 16:55 Pain reported at 11/28 8:00: 0 = None Physical Exam by System: Constitutional: Awake, alert, oriented, no acute distress Eyes: Extraocular muscles intact ENMT: Moist mucous membranes Head/Neck: Normocephalic, atraumatic Respiratory/Thorax: Bilateral equal breath sounds Cardiovascular: Regular rate and rhythm Gastrointestinal: Soft, nontender, nondistended Genitourinary: Jamison catheter in place Musculoskeletal: Moving all extremities with equal strength Extremities: No peripheral edema Neurological: Awake, alert, oriented Positive slight tremor of bilateral upper extremities Psychological: Calm Skin: Warm and dry Medication: Medications: Continuous Medications 1. Lactated Ringers Infusion: 1000 mL IntraVenous Scheduled Medications 1. Famotidine: 20 mg Oral Daily 2. Isosorbide Mononitrate Extended Release: 30 mg Oral Daily 3. Micafungin IV Piggy Back: 100 mg IntraVenous Piggyback Every 24 Hours 4. NIFEdipine (PROCARDIA XL) Extended Release: 30 mg Oral Daily 5. Nystatin 100,000 Units/ gram Topical: 1 application(s) Topical 3 Times a Day PRN Medications 1. Acetaminophen: 650 mg Oral Every 4 Hours 2. Acetaminophen: 650 mg Oral Every 4 Hours 3. ALPRAZolam: 0.25 mg Oral Every 8 Hours 4. Lidocaine 2% (UROJET) Topical Gel: 5 mL Topical Every 4 Hours 5. Loperamide: 2 mg Oral Every 4 Hours 6. Ondansetron Injectable: 4 mg IntraVenous Push Every 4 Hours Recent Lab Results: Results: CBC: 11/28/2022 04:43 \ Hgb / \ 7.4 L / WBC Plt 8.0 216 / Hct \ / 24.6 L \ RBC: 2.60 L MCV: 95 CMP: 11/28/2022 04:42 NA+ Cl- BUN / 140 97 L 115 H / Glucose ----- 94 K+ HCO3- Creat \ 3.3 L 30 8.95 H \ \ T Bili / \ 0.4 / AST x ---- x ALT 26 x ---- x 18 / Alk P \ / 57 \ Calcium : 6.4 L Anion Gap : 16 Albumin : 2.7 L T Protein : 5.6 L Assessment and Plan: Daily Risk Screen: Does patient have an indwelling urinary cathetern/a consulting service Comorbidities: ComorbidityOther Code Status: Code StatusFull Code Assessment: He needs to continue micafungin Bilateral hydronephrosis Azotemia without any overt signs of uremia Ureteral Stricture and Nephrolithiasis History of prostate cancer status post prostatectomy Slight hypokalemia Slight hyponatremia Hyperphosphatemia Sharan UTI Plan: S/P Stents placed 11/23 He will need to continue micafungin until cultures return or has finished a full course Blood pressure is much better currently on nifedipine and this should be continued I will give him a dose of darbepoetin due to his anemia of chronic disease At this time he continues to show some improvement in his renal function and does not require acute renal replacement therapy We will continue to give him every opportunity to avoid dialysis if able He can be discharged at any time from my standpoint and I will follow-up with him as an outpatient I would continue his supportive measures as he is on Please call me with any further issues or needs Electronic Signatures: Tiana De León () (Signed 28-Nov-2022 10:51) Authored: Service, Subjective Data, Objective Data, Assessment and Plan, Note Completion Last Updated: 28-Nov-2022 10:51 by Tiana De León () Normal [facility] FERRITINon 11-28-2022 FERRITIN 746 ug/L High 20 - [address] [facility] Comment on above: Performed By: #### I RONZabrina #### [place] [id number] Ferritin, Serumon 11-28-2022 Ferritin [Mass/Vol] 746 ug/L above high threshold 20 - 300 [facility]Gfaopqy[facility]Ttz [facility] Work Phone: IRON + TIBCon 11-28-2022 % SATURATION 46 % High 25 - [address] [facility] Comment on above: Performed By: #### P TINR #### [address] [address] Iron [Mass/Vol] 63 ug/dL Normal 35 - [address] [facility] Comment on above: Performed By: #### P TINR #### [address] [address] TIBC 136 ug/dL Low 240 - [address] [facility] Comment on above: Performed By: #### P TINR #### [address] [address] Laboratory - Chemistry and C hemistry - challengeon 11-28-2022 Albumin BCP dye [Mass/Vol] 2.7 g/dL below low threshold 3.4 - 5.0 SQ[facility]Bavbams[facility]Dhc [facility] Work Phone: ALP [Catalytic activity/Vol] 57 U/L 33 - 136 YQ-Sgvqhwh-Oxl [facility] Work Phone: ALT With P-5'-P [Catalytic activity/Vol] 18 U/L 10 - 52 TL-Hnnxmif-Iuo land Work Phone: Comment on above: Patients treated wit h Sulfasalazine may generate falsely decreased results for ALT. Anion gap [Moles/Vol] 16 mmol/L 10 - 20 MP- Urology-Niall [facility] Work Phone: AST With P-5'-P [Catalytic activity/Vol] 26 U/L 9 - 39 PQ-Enjsmqe-Pon land Work Phone: Bilirubin [Mass/Vol] 0.4 mg/dL 0.0 - 1.2 MP-U rology-Niall [facility] Work Phone: Calcium [Mass/Vol] 6.4 mg/dL below low threshold 8.6 - 10.3 VU-Cmdolki-Ctf [facility] Work Phone: Chloride [Moles/Vol] 97 mmol/L below low threshold 98 - 107 KG-Lzduvti-Pzt land Work Phone: CO2 [Moles/Vol] 30 mmol/L 21 - 32 MP-Urolog y-Niall [facility] Work Phone: Creatinine [Mass/Vol] 8.95 mg/dL above high threshold See Below CI-Zfcdsnv-Eeb land Work Phone: Comment on above: Reference Range: 0.5 0 - 1.30 Glucose [Mass/Vol] 94 mg/dL 74 - 99 MP-Uro logy-Niall [facility] Work Phone: Iron [Mass/Vol] 63 ug/dL 35 - 150 MP-Urolog y-[facility]iall [facility] Work Phone: Iron binding capacity [Mass/Vol] 136 ug/dL below low threshold 240 - 445 HG-Gpnprcf-Usi land Work Phone: Potassium [Moles/Vol] 3.3 mmol/L below low threshold 3.5 - 5.3 WD-Vkpelzt-Vrs land Work Phone: Protein [Mass/Vol] 5.6 g/dL below low threshold 6.4 - 8.2 DW-Sskalzd-Pdf [employer] Work Phone: Sodium [Moles/Vol] 140 mmol/L 136 - 145 MP-Uro logy-[employer] Work Phone: Urea nitrogen [Mass/Vol] 115 mg/dL above high threshold 6 - 23 HQ-Uawryab-Rij land Work Phone: Comment on above: This is a critical r esult. Per Laboratory policy, critical results for this test only qualify to the call list once per 24 hours. Laboratory - Hematology and Cell countson 11-28-2022 Erythrocyte distribution width (RBC) [Ratio] 13.2 % See Below HN-Wwvmakt-Mcm [employer] Work Phone: Comment on above: Reference Range: 11. 5 - 14.5 Hematocrit (Bld) [Volume fraction] 24.6 % below low threshold See Below FB-Fiwspbs-Sbg [employer] Work Phone: Comment on above: Reference Range: 41. 0 - 52.0 Hemoglobin (Bld) [Mass/Vol] 7.4 g/dL below low threshold See Below XJ-Hzyjfrk-Ndt [employer] Work Phone: Comment on above: Reference Range: 13. 5 - 17.5 MCHC (RBC) [Mass/Vol] 30.1 g/dL below low threshold See Below AL-Qwyhdgo-Jau [employer] Work Phone: Comment on above: Reference Range: 32. 0 - 36.0 MCV (RBC) [Entitic vol] 95 fL 80 - 100 GN-Xqeectl-Gsw [employer] Work Phone: Platelets (Bld) [#/Vol] 216 10*3/uL 150 - 450 CK-Cigulcf-Xqy [employer] Work Phone: RBC (Bld) [#/Vol] 2.60 {x10E12/L} below low threshold See Below EQ-Oywffcx-Ckq [employer] Work Phone: Comment on above: Reference Range: 4.5 0 - 5.90 WBC (Bld) [#/Vol] 8.0 10*3/uL 4.4 - 11.3 MP-Uro logy-Niall land Work Phone: No Panel Informationon 11-28 46 % above high threshold 25 - 45 KV-Dcfdrdh-Pqi land Work Phone: 6 {mL/min/1.73m2} Abnormal >90 MP-Urol ogy-[employer] Work Phone: Comment on above: CALCULATIONS OF ALEJANDRA MATED GFR ARE PERFORMED USING THE 2020 CKD-EPI STUDY REFIT EQUATION WITHOUT THE RACE VARIABLE FOR THE IDMS-TRACEABLE CREATININE METHODS.https://jasn.asnjournals.org/content/early//A SN.3791927792 Rehab Note-individual therap yon 11-28-2022 Rehab Note-individual therapy Rehab: Info: 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 at end of sessionPt. left seated on toilet with call light within reach; nurse notified. Pt. instructed to not get up on his own. Communicated with ... at end of sessionbedside nurse Patient Effortadequate Line and Tubesurethral catheter indwelling Pre Treatment Patient Positionsitting Pre Treatment SpO2 (%)90 % Pre Treatment Oxygen Deliveryroom air During Treatment Patient Positionsitting During Treatment SpO2 (%)91 % During Treatment Oxygen Deliveryroom air Post Treatment Patient Positionsitting Post Treatment SpO2 (%)91 % Post Treatment Oxygen Deliveryroom air Vision/Cognition: Affect/Mental Status (Cognitive)WFL Mobility/Tone: Transfer Assessment/Interventio nssit to stand transfer Sit-Stand [place] (Transfers)contact guard; 1 person assist Sit-Stand Assistive Device (Transfers)gait belt; walker, front-wheeled Gait/Stairs Locomotiongait/ambulat ion independence; gait/ambulation assistive device; distance ambulated Gait Locomotion (Gait)minimum assist (75% patient effort); 1 person assist Assistive Device (Gait Training)gait belt; walker, front-wheeled Distance in Feet (Gait Training)25ft. Safety Issues Impacting Function (Mobility)positioning of assistive device; insight into deficits/self awareness; awareness of need for assistance Impairments Impacting Function (Mobility)balance; endurance/activity tolerance; pain; strength; shortness of breath Motor: Lower Extremity (Therapeutic Exercise)B/L: HR/TR/LAQ's/seated marches, alt./hip abd/hip add/GS 2 x 10 reps each Sensory: Pre-Treatment Pain Rating6/10 Post-Treatment Pain Rating6/10 Comment, Pre/Post Treatment Painright hip pain left knee pain Pain LimitationFunctional mobility limited due pain Outcomes Tools: Turning from your back to your side while in a flat bed without using bedrails a lot Moving from lying on your back to sitting on the side of a flat bed without using bedrailsa lot Moving to and from bed to chair (including a wheelchair)a little Standing up from a chair using your arms (e.g. wheelchair or bedside chair)a little To walk in hospital rooma lot Climbing 3-5 steps with railinga lot AM-PAC (PT) Total Score14 Short Term Goals: Bed Mobility: Date [id number] Bed Mobility: [place] Level Goalindependent Bed Mobility: Physical Assist Level Goalset-up Bed Mobility: Time Frame for Goal1 wk Transfer: Established Transfer: Transfer Type Goalall transfers Transfer: [place] Level Goalmodified independent Transfer: Physical Assist Level Goalset-up Transfer: Assistive Device Goalrolling walker Transfer: Time Frame for Goal1 wk Gait: Established Gait: [place] Level Goalminimum assist (75% patients effort) Gait: Physical Assist Levelset-up; 1-person assist Gait: Assistive Device Goalrolling walker Gait: Distance [id number] Gait: Time Frame for Goal1 wk Stair: Established Stair: [place] Level Goalmoderate assist (50% patients effort) Stair: Physical Assist Levelset-up; 1-person assist Stair: Goal Detailsx5 steps with BHR Stair: Time Frame for Goal1 wk Outcome Summary: Progress: Physical Therapyprogress towards functional goals is fair Outcome Summary: Physical TherapyPt. sitting in recliner upon arrival, agreeable to therapy. Pt. c/o pain with his right hip and left knee. Pt. states he was taken off oxygen and is on room air now which O2 sats are 90% during session. Pt. tolerated increased reps with exercises this date with frequent rest breaks needed. Pt. walked to bathroom where he was given the call light and told not to get up on his own. Continue with POC and progress per tolerance to improve endurance and ease with mobility and transfers. MB Electronic Signatures: Asha Zhou (CONSERVATION OR HERITAGE ARCHITECT) (Signed 28-Nov-2022 14:34) Authored: Info, Vision/Cognition, Mobility/Tone, Motor, Sensory, Outcomes Tools, Short Term Goals, Outcome Summary Mitzy Payan (PT) (Signed 04-Dec-2022 08:37) Co-Signer: Info, Vision/Cognition, Mobility/Tone, Motor, Sensory, Outcomes Tools, Short Term Goals, Outcome Summary Last Updated: 04-Dec-2022 08:37 by Mitzy Payan (PT) Normal [facility] BASIC METABOLIC PANELon 11-01 Anion gap [Moles/Vol] 18 mmol/L Normal 10 - 20 [facility] Comment on above: Order Comment: BUN C ALLED RB TO BENITA SKINNER , 11/27/2022 08:11 Performed By: #### P TINR #### [address] [address] Calcium [Mass/Vol] 6.0 mg/dL Low 8.6 - 10.3 [facility] Comment on above: Order Comment: BUN C ALLED RB TO BENITA SKINNER , 11/27/2022 08:11 Performed By: #### P TINR #### [address] [address] Chloride [Moles/Vol] 94 mmol/L Low 98 - 107 [facility] Comment on above: Order Comment: BUN C ALLED RB TO BENITA SKINNER , 11/27/2022 08:11 Performed By: #### P TINR #### [address] [address] Creatinine [Mass/Vol] 9.42 mg/dL High 0.50 - 1.30 [facility] Comment on above: Order Comment: BUN C ALLED RB TO BENITA SKINNER , 11/27/2022 08:11 Performed By: #### P TINR #### [address] [address] GFR/1.73 sq M.predicted among non-blacks MDRD (S/P/Bld) [Vol rate/Area] 5 mL/min/{1.73_m2} Abnormal >[address] [facility] Comment on above: Order Comment: BUN C ALLED RB TO BENITA SKINNER , 11/27/2022 08:11 Result Comment: CALC ULATIONS OF ESTIMATED GFR ARE PERFORMED USING THE 2020 CKD-EPI STUDY REFIT EQUATION WITHOUT THE RACE VARIABLE FOR THE IDMS-TRACEABLE CREATININE METHODS. https://jasn.asnjournals.org/content/early//ASN.88507 [address]1567 Performed By: #### P TINR #### [address] [address] Glucose [Mass/Vol] 98 mg/dL Normal 74 - 99 [facility] Comment on above: Order Comment: BUN C ALLED RB TO BENITA SKINNER , 11/27/2022 08:11 Performed By: #### P TINR #### [address] [address] HCO3 (Bld) [Moles/Vol] 31 mmol/L Normal 21 - 32 [facility] Comment on above: Order Comment: BUN C ALLED RB TO BENITA SKINNER , 11/27/2022 08:11 Performed By: #### P TINR #### [address] [address] Potassium [Moles/Vol] 3.3 mmol/L Low 3.5 - 5.3 [facility] Comment on above: Order Comment: BUN C ALLED RB TO BENITA CALLEJASN , 11/27/2022 08:11 Performed By: #### P TINR #### [address] [address] Sodium [Moles/Vol] 140 mmol/L Normal 136 - 145 [facility] Comment on above: Order Comment: BUN C ALLED RB TO BENITA SKINNER , 11/27/2022 08:11 Performed By: #### P TINR #### [address] [address] Urea nitrogen [Mass/Vol] 124 mg/dL Critically high [facility] Comment on above: Order Comment: BUN C ALLED RB TO BENITA SKINNER , 11/27/2022 08:11 Result Comment: BUN CALLED RB TO BENITA SKINNER , 11/27/2022 08:11 Performed By: #### P TINR #### [place] [id number] BLOOD CULTURE, BACTERIALon 0 11-27-2022 BLOOD CULTURE, BACTERIAL PATIENT: GENET BOOTH LOCATION: [address]#: [id number] : 47 AGE: SEX: M ORDERED BY: GIOVANNI PARDO SOURCE: Blood COLLECTED: 11/27/22 10:43 ANTIBIOTICS AT JUDI.: RECEIVED : 11/27/22 18:18 SITE: ANTECUBITAL ANTECUBITAL ANTECUBITAL R E S U L T S BLOOD CULTURE, BACTERIAL FINAL 12/01/22 19:42 No Growth at 1 days No Growth at 2 days No Growth at 3 days NO GROWTH at 4 days - FINAL REPORT Normal [facility] Comment on above: Performed By: #### B MP #### [place] [id number] CBCon 11-27-2022 Erythrocyte distribution width (RBC) [Ratio] 13.2 % Normal 11.5 - 14.[address] [facility] Comment on above: Performed By: #### C BC ####[place] [id number] Hematocrit (Bld) [Volume fraction] 25.5 % Low 41.0 - 52.[address] [facility] Comment on above: Performed By: #### C BC ####[place] [id number] Hemoglobin (Bld) [Mass/Vol] 7.8 g/dL Low 13.5 - 17.[address] [facility] Comment on above: Performed By: #### C BC ####[place] [id number] MCHC (RBC) [Mass/Vol] 30.6 g/dL Low 32.0 - 36.0 [facility] Comment on above: Performed By: #### C BC ####[address] [address] MCV (RBC) [Entitic vol] 94 fL Normal 80 - [address] [facility] Comment on above: Performed By: #### C BC ####[address] [address] Platelets (Bld) [#/Vol] 209 10*3/uL Normal 150 - [address] [facility] Comment on above: Performed By: #### C BC ####[address] [address] RBC 2.72 x10E12/L Low 4.50 - 5.[address] [facility] Comment on above: Performed By: #### C BC ####[address] [address] WBC (Bld) [#/Vol] 7.2 10*3/uL Normal 4.4 - 11.3 [facility] Comment on above: Performed By: #### C BC ####[address] [address] Cult, Bloodon 11-27-2022 Bacteria identified Cx Nom (Bld) [facility]Rpq [facility] Work Phone: Daily Progress Note-Medicine on 11-27-2022 Daily Progress Note-Medicine Service: Medicine Subjective Data: GENET BOOTH is a 77 year old Male who is Hospital Day # 8 and POD #4 for 1. Cystoscopy w/Retrogrades BILATERAL, L STENT, BLADDER TISSUE RESECTION; No significant anasarca or change in mentation or shortness of breath or nausea vomiting or palpitations or fever chills Monitoring kidney function. Objective Data: Objective Information: T PRBPMAPSpO2 [id number]% Date/Time11/27 16: 16: 16: 16: 16:55 Range(36.5C - 37.5C ) (78 - 89 ) (17 - 20 ) (142 - 171 )/ (56 - 87 ) (90% - 93% ) Highest temp of 37.5 C was recorded at 11/27 16:55 Pain reported at 11/27 8:00: 0 = None Physical Exam Narrative: Physical Exam: Constitutional: awake/alert/oriented x3, not in acute distress, obese Eyes: PERRL, EOMI, clear sclera ENMT: normal hearing, mucous membranes moist, no pharyngeal erythema or exudates Head/Neck: neck supple, no apparent injury, no JVD, no lymphadenopathy, trachea midline Respiratory/Thorax: patent airways, clear to auscultation bilaterally, no crackles or wheezing or rhonchi Cardiovascular: Regular, rate and rhythm, no murmurs, 2+ equal pulses of the extremities Gastrointestinal: Distended from obesity, positive bowel sounds, soft, non-tender, no rebound tenderness or guarding, no masses palpable, no organomegaly Extremities: no edema Neurological: intact senses, motor, response and reflexes, normal strength, babinski negative Psychological: Appropriate mood and behavior Skin: warm, no rashes Medication: Medications: Continuous Medications 1. Lactated Ringers Infusion: 1000 mL IntraVenous Scheduled Medications 1. Famotidine: 20 mg Oral Daily 2. Isosorbide Mononitrate Extended Release: 30 mg Oral Daily 3. Micafungin IV Piggy Back: 100 mg IntraVenous Piggyback Every 24 Hours 4. NIFEdipine (PROCARDIA XL) Extended Release: 30 mg Oral Daily 5. Nystatin 100,000 Units/ gram Topical: 1 application(s) Topical 3 Times a Day PRN Medications 1. Acetaminophen: 650 mg Oral Every 4 Hours 2. Acetaminophen: 650 mg Oral Every 4 Hours 3. ALPRAZolam: 0.25 mg Oral Every 8 Hours 4. Lidocaine 2% (UROJET) Topical Gel: 5 mL Topical Every 4 Hours 5. Loperamide: 2 mg Oral Every 4 Hours 6. Ondansetron Injectable: 4 mg IntraVenous Push Every 4 Hours Recent Lab Results: Results: CBC: 11/27/2022 05:36 \ Hgb / \ 7.8 L / WBC Plt 7.2 209 / Hct \ / 25.5 L \ RBC: 2.72 L MCV: 94 BMP: 11/27/2022 05:36 NA+ Cl- BUN / 140 94 L 124 HH / Glucose ----- 98 K+ HCO3- Creat \ 3.3 L 31 9.42 H \ Calcium : 6.0 L Anion Gap : 18 Radiology Results: Results: Impression: MODERATE TO EXTENSIVE RIGHT HYDRONEPHROSIS AND HYDROURETER EXTENDING ALL THE WAY TO THE UVJ, BUT NO STONE ANYWHERE ON THE RIGHT SIDE OF THE URINARY TRACT THE MILDER LEFT HYDRONEPHROSIS AND HYDROURETER IS DUE TO A LESS THAN 3 MM (TOO SMALL TO ACCURATELY MEASURE ATTENUATION) OBSTRUCTING STONE AT OR WITHIN 1 CM OF THE LEFT UVJ ADDITIONAL NONOBSTRUCTING LEFT NEPHROLITHIASIS SIGNIFICANT PARENCHYMAL RENAL ATROPHY THROUGHOUT ALL OF THE LEFT KIDNEY HAS DEVELOPED SOMETIME SINCE CT FROM April, SUSPECT CYSTITIS. INFLAMMATORY FAT STRANDING SURROUNDS THE URINARY BLADDER NO URINE LEAK/URINOMA NO SEPARATE ACUTE PROCESS OUTSIDE THE URINARY TRACT SUCH ACUTE DIVERTICULITIS CT Abdomen and Pelvis without Contrast [Nov 22 2022 3:33PM] Assessment and Plan: Daily Risk Screen: Does patient have an indwelling urinary catheteryes Plan for indwelling urinary catheter removal todayyes Comorbidities: ComorbidityOther Code Status: Code StatusFull Code Assessment: 77-year-old male with a past medical history of Prostate cancer s/p prostatectomy, bladder tumor, urethral stricture, obesity, obstructive sleep apnea, hypertension, left knee chronic pain, hypothyroidism, gout, hyperlipidemia, depression and a questionable poor compliance/adherence with his medications and following up with a family doctor, who presented to the emergency room for a 1 week history of weakness. Patient was found to have sepsis [tachycardia, leukocytosis, lactic acidosis] associated with significant acute kidney injury and metabolic acidosis and secondary to community-acquired pneumonia as well as a possible urinary tract infection. Plan Appreciate nephrology and urology recommendations Continue to monitor kidney function and urine output kidney function minimally improved Asymptomatic currently and hemodynamically stable maintaining vital saturations S/p cystoscopy and right ureteral stent placement as wellOn 11/23 Continue current home medications as ordered Suppor (more content not included)... Normal [facility] Daily Progress Note-Nephrolo gyon 11-27-2022 Daily Progress Note-Nephrology Service: Nephrology Subjective Data: GENET BOOTH is a 77 year old Male who is Hospital Day # 8 and POD #4 for 1. Cystoscopy w/Retrogrades BILATERAL, L STENT, BLADDER TISSUE RESECTION; Patient seen and examined at the bedside this morning He is sitting comfortably in the bedside chair He has no major complaints at this time Feeling pretty well. Objective Data: Objective Information: T PRBPMAPSpO2 [id number]% Date/Time11/27 7: 7: 7: 7: 7:45 Range(36.5C - 37C ) (78 - 89 ) (17 - 20 ) (154 - 171 )/ (65 - 87 ) (90% - 93% ) Highest temp of 37 C was recorded at 11/26 14:50 Pain reported at 11/27 8:00: 0 = None Physical Exam by System: Constitutional: Awake, alert, oriented, no acute distress Eyes: Extraocular muscles intact ENMT: Moist mucous membranes Head/Neck: Normocephalic, atraumatic Respiratory/Thorax: Bilateral equal breath sounds Cardiovascular: Regular rate and rhythm Gastrointestinal: Soft, nontender, nondistended Genitourinary: Jamison catheter in place Musculoskeletal: Moving all extremities with equal strength Extremities: No peripheral edema Neurological: Awake, alert, oriented Positive slight tremor of bilateral upper extremities Psychological: Calm Skin: Warm and dry Medication: Medications: Continuous Medications 1. Lactated Ringers Infusion: 1000 mL IntraVenous Scheduled Medications 1. Famotidine: 20 mg Oral Daily 2. Isosorbide Mononitrate Extended Release: 30 mg Oral Daily 3. Micafungin IV Piggy Back: 100 mg IntraVenous Piggyback Every 24 Hours 4. NIFEdipine (PROCARDIA XL) Extended Release: 30 mg Oral Daily 5. Nystatin 100,000 Units/ gram Topical: 1 application(s) Topical 3 Times a Day PRN Medications 1. Acetaminophen: 650 mg Oral Every 4 Hours 2. Acetaminophen: 650 mg Oral Every 4 Hours 3. ALPRAZolam: 0.25 mg Oral Every 8 Hours 4. Lidocaine 2% (UROJET) Topical Gel: 5 mL Topical Every 4 Hours 5. Loperamide: 2 mg Oral Every 4 Hours 6. Ondansetron Injectable: 4 mg IntraVenous Push Every 4 Hours Recent Lab Results: Results: CBC: 11/27/2022 05:36 \ Hgb / \ 7.8 L / WBC Plt 7.2 209 / Hct \ / 25.5 L \ RBC: 2.72 L MCV: 94 BMP: 11/27/2022 05:36 NA+ Cl- BUN / 140 94 L 124 HH / Glucose ----- 98 K+ HCO3- Creat \ 3.3 L 31 9.42 H \ Calcium : 6.0 L Anion Gap : 18 Assessment and Plan: Daily Risk Screen: Does patient have an indwelling urinary cathetern/a consulting service Comorbidities: ComorbidityOther Code Status: Code StatusFull Code Assessment: Acute Renal Failure Bilateral hydronephrosis Azotemia without any overt signs of uremia Ureteral Stricture and Nephrolithiasis History of prostate cancer status post prostatectomy Slight hypokalemia Slight hyponatremia Hyperphosphatemia Sharan UTI Plan: S/P Stents placed 11/23 Continue lactated Ringer's for now but can be discontinued when ready for discharge Replace potassium We will give some IV calcium For now his renal function continues to show some slow improvement He wants to continue to delay dialysis and he has no overt signs of uremia He needs to continue with his Jamison catheter in place I will follow him as an outpatient when his outpatient has been set up he can be discharged to rehab He needs to continue micafungin We will follow cultures Electronic Signatures: Tiana De León) (Signed 27-Nov-2022 12:17) Authored: Service, Subjective Data, Objective Data, Assessment and Plan, Note Completion Last Updated: 27-Nov-2022 12:17 by Tiana De eLón (DO) [facility] - Chemistry and C hemistry - challengeon 11-27-2022 Anion gap [Moles/Vol] 18 mmol/L 10 - 20 MP- Urology-[place] [facility] Work Phone: Calcium [Mass/Vol] 6.0 mg/dL below low threshold 8.6 - 10.3 IC-Cxblqkj-Moj land Work Phone: Chloride [Moles/Vol] 94 mmol/L below low threshold 98 - 107 QW-Urjfele-Bpl [facility] Work Phone: CO2 [Moles/Vol] 31 mmol/L 21 - 32 MP-Urolog y-[place] Work Phone: Creatinine [Mass/Vol] 9.42 mg/dL above high threshold See Below BA-Dfmmiic-Jzy land Work Phone: Comment on above: Reference Range: 0.5 0 - 1.30 Glucose [Mass/Vol] 98 mg/dL 74 - 99 MP-Uro logy-[place] [facility] Work Phone: Potassium [Moles/Vol] 3.3 mmol/L below low threshold 3.5 - 5.3 TN-Jpyradc-Ruw land Work Phone: Sodium [Moles/Vol] 140 mmol/L 136 - 145 MP-Uro logy-[place] Work Phone: Urea nitrogen [Mass/Vol] 124 mg/dL Critically high 6 - 23 SS-Fnakznz-Utr land Work Phone: Comment on above: BUN CALLED RB TO CODY ZENDEJAS , 11/27/2022 08:11 Laboratory - Hematology and Cell countson 11-27-2022 Erythrocyte distribution width (RBC) [Ratio] 13.2 % See Below IK-Bqpqpzp-Ian land Work Phone: Comment on above: Reference Range: 11. 5 - 14.5 Hematocrit (Bld) [Volume fraction] 25.5 % below low threshold See Below QZ-Gaafoef-Nfv land Work Phone: Comment on above: Reference Range: 41. 0 - 52.0 Hemoglobin (Bld) [Mass/Vol] 7.8 g/dL below low threshold See Below QX-Cfbvfdk-Zpc land Work Phone: Comment on above: Reference Range: 13. 5 - 17.5 MCHC (RBC) [Mass/Vol] 30.6 g/dL below low threshold See Below JM-Akfvnyb-Jbj land Work Phone: Comment on above: Reference Range: 32. 0 - 36.0 MCV (RBC) [Entitic vol] 94 fL 80 - 100 YA-Jniwayv-U[facility] [employer] Work Phone: Platelets (Bld) [#/Vol] 209 10*3/uL 150 - 450 GQ-Zfmkywe-Ski [employer] Work Phone: RBC (Bld) [#/Vol] 2.72 {x10E12/L} below low threshold See Below ZX-Lxbpfqp-Ukp [employer] Work Phone: Comment on above: Reference Range: 4.5 0 - 5.90 WBC (Bld) [#/Vol] 7.2 10*3/uL 4.4 - 11.3 MP-Uro logy-[employer] Work Phone: No Panel Informationon 11-27 5 {mL/min/1.73m2} Abnormal >90 MP-Urol ogy-[employer] Work Phone: Comment on above: CALCULATIONS OF ALEJANDRA MATED GFR ARE PERFORMED USING THE 2020 CKD-EPI STUDY REFIT EQUATION WITHOUT THE RACE VARIABLE FOR THE IDMS-TRACEABLE CREATININE METHODS.https://jasn.asnjournals.org/content/22/A SN.2365086540 Nutrition Therapy-Follow Upo n 11-27-2022 Nutrition Therapy-Follow Up Assessment Subjective/Objective: Note Type: Follow Up Note Authored by: Registered Dietitian Food General Manager Pager Number: Rebekah Castillo Note: The patient is a 77 year old Male admitted for acute kidney failure. 11/27: Following up per protocol. Met with patient at bedside. He reports that prior to coming to the hospital, he was not eating at all for a couple of weeks. He reports intake since admission has picked up a lot. He recalled eating 100% of his breakfast this morning (Syrian toast and scrambled eggs). He is drinking his Ensure and likes it. Given extended time NPO and increased protein needs due to kidney function, recommend increasing nutrition supplement to BID, which patient was agreeable to. Note that he has gained weight since last assessment; unsure of cause, but continue to advocate for oral nutrition supplement, especially given higher protein needs. Will monitor. 11/22: PMH per H&P: Prostate cancer s/p prostatectomy, bladder tumor, urethral stricture, obesity, obstructive sleep apnea, hypertension, left knee chronic pain, hypothyroidism, gout, hyperlipidemia, depression RD consulted due to MST score 3 on admission screening, noting unsure weight loss and eating poorly due to decreased appetite. Attempted to meet with patient at bedside twice; however, unsuccessful due to patient receiving treatment from other care team members. Information included herein is from chart review. There is no recent weight history in chart and patient has not previously been seen by a dietitian. He is on a regular diet. Per rounds, he is likely going to need dialysis. Given increased protein needs that accompany this, conservatively ordering Ensure Plus High Protein once/day and will assess intake of foods and supplement on follow up. Medical Surgical History: Per H&P: prostatectomy Objective Information: Pain reported at 11/27 8:00: 0 = None ---- Intake and Output ----- Mn/Dy/Year TimeIntakeOutputNet Nov 27, 2022 6:00 [id number] Nov 26, 2022 10:00 [id number] Nov 26, 2022 2:00 [id number] The Intake and Output Totals for the last 24 hours are: IntakeOutputNet [id number] Height/Weight: Height in cm: 177.8 centimeter(s) Weight (kg): 107.8 BMI (kg/m2): 34.1 square meter DBW (kg): 75.3 %DBW: 143 Adjusted BW: 83.4 Weight history/ % weight change: No recent weight history in chart Significant Weight Loss: unknown Recent Lab Results: Results: I have reviewed these laboratory results: Basic Metabolic Panel 27-Nov-2022 05:36:00 ResultValue Lab Comment: BUN CALLED RB TO BENITA SKINNER , 11/27/2022 08:11 Glucose, Serum 98 NA 140 K 3.3 L CL 94 L Bicarbonate, Serum 31 Anion Gap, Serum 18 BUN 124 HH CREAT 9.42 H GFR Male 5 A Calcium, Serum 6.0 L Complete Blood Count 27-Nov-2022 05:36:00 ResultValue White Blood Cell Count 7.2 Red Blood Cell Count 2.72 L HGB 7.8 L HCT 25.5 L MCV 94 MCHC 30.6 L PLT 209 RDW-CV 13.2 Phosphorus, Serum 27-Nov-2022 05:36:00 ResultValue Phosphorus, Serum 6.2 H Comprehensive Metabolic Panel 26-Nov-2022 05:34:00 ResultValue Lab Comment: urea called to laure oneill rb, 11/26/2022 08:04 Glucose, Serum 85 NA 138 K 3.6 CL 90 L Bicarbonate, Serum 32 Anion Gap, Serum 20 BUN 140 HH CREAT 10.74 H GFR Male 4 A Calcium, Serum 6.2 L ALB 2.7 L ALKP 62 T Pro 5.7 L T Bili 0.3 Alanine Aminotransferase, Serum 15 Aspartate Transaminase, Serum 23 Current Active Medications/PN: Acetaminophen, Tablet (TYLENOL) DOSE = 650 mg Oral Every 4 Hours, PRN Pain - Mild (1-3), 20-Nov-2022 Acetaminophen, Tablet (TYLENOL) DOSE = 650 mg Oral Every 4 Hours, PRN Temp Greater Than or Equal to 38.0 C, 20-Nov-2022 Ondansetron Injectable, (ZOFRAN) DOSE = 4 mg IntraVenous Push Every 4 Hours, PRN Nausea and/or Vomiting, 20-Nov-2022 Nystatin 100,000 Units/ gram Topical, Powder (MYCOSTATIN, NYSTOP, PEDI-DRI) DOSE = 1 application(s) Topical 3 Times a Day Apply to Groin, 21-Nov-2022 Lidocaine 2% (UROJET) Topical Gel, DOSE = 5 mL Topical Every 4 Hours, PRN for pain with urinary catheterization Apply to Urethra, 22-Nov-2022 Famotidine, Tablet (PEPCID) DOSE = 20 mg Oral Daily, 24-Nov-2022 ALPRAZolam, Tablet (XANAX) DOSE = 0.25 mg Oral Every 8 Hours, PRN Anxiety, 24-Nov-2022 Isosorbide Mononitrate Extended Release, Tablet, Extended Release (IMDUR) DOSE = 30 mg Oral Daily, 26-Nov-2022 NIFEdipine (PROCARDIA XL) Extended Release, Tablet, Extended Release DOSE = 30 mg Oral Daily, 26-Nov-2022 Micafungin IV Piggy Back, in Sodium Chloride 0.9% 100 mL (MICAMINE) DOSE = 100 mg Every 24 Hours Recommended Infusion Time: 1 hour(s), 26-Nov-2022 Loperamide, Capsule (IMODIUM) DOSE = 2 mg Oral Every 4 Hours, PRN Loose Stools, 26-Nov-2022 Lactated Ringers Infusion, IV Bag Volume = 1,000 mL Run at: 100 mL/hr IntraVenous , 24-Nov-2022 Food/Nutrition Re (more content not included)... Normal [facility] PHOSPHORUSon 11-27-2022 Phosphate [Mass/Vol] 6.2 mg/dL High 2.5 - 4.9 [facility] Comment on above: Result Comment: The performance characteristics of phosphorus testing in heparinized plasma have been validated by the individual laboratory site where testing is performed. Testing on heparinized plasma is not approved by the FDA; however, such approval is not necessary. Performed By: #### I RONT #### [place] [id number] [place] [id number] Phosphorus, Serumon 11-28-19 23 Phosphate [Mass/Vol] 6.2 mg/dL above high threshold 2.5 - 4.9 MU-Mmccywv[facility] Work Phone: Comment on above: The performance herve acteristics of phosphorus testing in heparinized plasma have been validated by the individual laboratory site where testing is performed. Testing on heparinized plasma is not approved by the FDA; however, such approval is not necessary. Rehab Note-individual therap yon 11-27-2022 Rehab Note-individual therapy Rehab: Info: Disciplinephysical inhalation therapy teacher Mode of Treatmentphysical therapy; individual therapy Time IN12:35 Time OUT13:01 Total Treatment [id number] Patient in ... at end of sessionchair; alarm on Patient Effortgood Symptoms Noted During/After Treatmentfatigue Line and Tubesurethral catheter indwelling Pre Treatment Patient Positionsitting Pre Treatment Heart Rate (beats/min)104 Pre Treatment SpO2 (%)93 % Pre Treatment Oxygen Deliveryroom air Post Treatment Patient Positionsitting Post Treatment Heart Rate (beats/min)99 Post Treatment SpO2 (%)94 % Post Treatment Oxygen Deliveryroom air Vision/Cognition: Affect/Mental Status (Cognitive)WFL; anxious Orientation Status (Cognition)oriented x 3 Mobility/Tone: Comment, TransfersSTS from chair CGA Gait/Stairs Locomotiongait/ambulat ion assistive device; distance ambulated Assistive Device (Gait Training)gait belt; walker, front-wheeled Distance in Feet (Gait Training)35' CGA Comment, Gait/Stairs TrainingStep through gait pattern with decreased speed, push off and step length. NBOS Safety Issues Impacting Function (Mobility)impulsivity; safety precaution awareness; judgment; insight into deficits/self awareness Impairments Impacting Function (Mobility)balance; endurance/activity tolerance; range of motion; shortness of breath; strength Motor: Lower Extremity (Therapeutic Exercise)seated: Ankle pumps, 4 way ankle (manual resistant, patient compensating with hips during ankle abd/add) , LAQ, Quad sets, Hip ADD/ABD (manual resistance) ISO, HR/TR all 10reps each , each LE Sensory: Comment, Pre/Post Treatment PainPatient reported no pain prior to session but did note during Hip abduction and LAQ there was pain in his proximal lateral R quad rating 5-6/10. Pain stopped when the activity ceased. Outcomes Tools: Turning from your back to your side while in a flat bed without using bedrails a little Moving from lying on your back to sitting on the side of a flat bed without using bedrailsa little Moving to and from bed to chair (including a wheelchair)a little Standing up from a chair using your arms (e.g. wheelchair or bedside chair)a little To walk in hospital rooma little Climbing 3-5 steps with railinga lot AM-PAC (PT) Total Score17 Short Term Goals: Bed Mobility: Date [id number] Bed Mobility: [place] Level Goalindependent Bed Mobility: Physical Assist Level Goalset-up Bed Mobility: Time Frame for Goal1 wk Transfer: Established Transfer: Transfer Type Goalall transfers Transfer: [place] Level Goalmodified independent Transfer: Physical Assist Level Goalset-up Transfer: Assistive Device Goalrolling walker Transfer: Time Frame for Goal1 wk Gait: Established Gait: [place] Level Goalminimum assist (75% patients effort) Gait: Physical Assist Levelset-up; 1-person assist Gait: Assistive Device Goalrolling walker Gait: Distance Ckpl75kg Gait: Time Frame for Goal1 wk Stair: Established Stair: [place] Level Goalmoderate assist (50% patients effort) Stair: Physical Assist Levelset-up; 1-person assist Stair: Goal Detailsx5 steps with BHR Stair: Time Frame for Goal1 wk Outcome Summary: Progress: Physical Therapyprogress toward functional goals is gradual Outcome Summary: Physical TherapyPatient completed all exercises with minimal complication. LAQ and Hip abduction on R LE was shortened secondary to pain in R proximal/lateral quad. He fatigues very quickly with ambulating minimal gait distances. (35') Cont strengthening to increase ease/endurance of ambulation and standing ADLs. Ela Chahal SPTA All clinical decision making and treatment directly supervised by Jeannette Khan [employer] HERITAGE ARCHITECT [id number] Electronic Signatures: Ela Chahal (SPTA) (Signed 27-Nov-2022 13:55) Authored: Info, Vision/Cognition, Motor, Outcomes Tools, Short Term Goals, Mobility/Tone, Sensory, Outcome Summary Mitzy Payan (PT) (Signed 28-Nov-2022 08:35) Co-Signer: Vision/Cognition, Mobility/Tone, Sensory, Outcome Summary Jeannette Khan (CONSERVATION OR HERITAGE ARCHITECT) (Signed 27-Nov-2022 15:58) Authored: Vision/Cognition, Mobility/Tone, Sensory, Outcome Summary Last Updated: 28-Nov-2022 08:35 by Mitzy Payan (PT) Normal [facility] CBCon 11-26-2022 Erythrocyte distribution width (RBC) [Ratio] 13.2 % Normal 11.5 - 14.[address] [facility] Comment on above: Performed By: #### C BC ####[address] [address] Hematocrit (Bld) [Volume fraction] 27.1 % Low 41.0 - 52.[address] [facility] Comment on above: Performed By: #### C BC ####[address] [address] Hemoglobin (Bld) [Mass/Vol] 8.4 g/dL Low 13.5 - 17.[address] [facility] Comment on above: Performed By: #### C BC ####[address] [address] MCHC (RBC) [Mass/Vol] 31.0 g/dL Low 32.0 - 36.0 [facility] Comment on above: Performed By: #### C BC ####[address] [address] MCV (RBC) [Entitic vol] 93 fL Normal 80 - [address] [facility] Comment on above: Performed By: #### C BC ####[address] [address] Platelets (Bld) [#/Vol] 225 10*3/uL Normal 150 - [address] [facility] Comment on above: Performed By: #### C BC ####[address] [address] RBC 2.93 x10E12/L Low 4.50 - 5.[address] [facility] Comment on above: Performed By: #### C BC ####[address] [address] WBC (Bld) [#/Vol] 6.9 10*3/uL Normal 4.4 - 11.3 [facility] Comment on above: Performed By: #### C BC ####[address] [address] COMPREHENSIVE PANELon 2022 Urea nitrogen [Mass/Vol] 140 mg/dL Critically high 6 - [address] [facility] Comment on above: Order Comment: urea called to laure castillo, 11/26/2022 08:04 Result Comment: urea called to laureprasanth castillo, 11/26/2022 08:04 Performed By: #### P TINR #### [place] [id number] Albumin [Mass/Vol] 2.7 g/dL Low 3.4 - 5.0 [facility] Comment on above: Order Comment: urea called to laure castillo, 11/26/2022 08:04 Performed By: #### P TINR #### [place] [id number] ALP [Catalytic activity/Vol] 62 U/L Normal 33 - [address] [facility] Comment on above: Order Comment: urea called to laure castillo, 11/26/2022 08:04 Performed By: #### P TINR #### [place] [id number] ALT [Catalytic activity/Vol] 15 U/L Normal 10 - [address] [facility] Comment on above: Order Comment: urea called to laure castillo, 11/26/2022 08:04 Result Comment: Rhea ents treated with Sulfasalazine may generate falsely decreased results for ALT. Performed By: #### P TINR #### [place] [id number] Anion gap [Moles/Vol] 20 mmol/L Normal 10 - 20 [facility] Comment on above: Order Comment: urea called to laure castillo, 11/26/2022 08:04 Performed By: #### P TINR #### [place] [id number] AST [Catalytic activity/Vol] 23 U/L Normal 9 - [address] [facility] Comment on above: Order Comment: urea called to laure castillo, 11/26/2022 08:04 Performed By: #### P TINR #### [address] [address] Bilirubin [Mass/Vol] 0.3 mg/dL Normal 0.0 - 1.2 [facility] Comment on above: Order Comment: urea called to laure castillo, 11/26/2022 08:04 Performed By: #### P TINR #### [address] [address] Calcium [Mass/Vol] 6.2 mg/dL Low 8.6 - 10.3 [facility] Comment on above: Order Comment: urea called to laure castillo, 11/26/2022 08:04 Performed By: #### P TINR #### [address] [address] Chloride [Moles/Vol] 90 mmol/L Low 98 - 107 [facility] Comment on above: Order Comment: urea called to laure castillo, 11/26/2022 08:04 Performed By: #### P TINR #### [address] [address] Creatinine [Mass/Vol] 10.74 mg/dL High 0.50 - 1.30 [facility] Comment on above: Order Comment: urea called to laure castillo, 11/26/2022 08:04 Performed By: #### P TINR #### [address] [address] GFR/1.73 sq M.predicted among non-blacks MDRD (S/P/Bld) [Vol rate/Area] 4 mL/min/{1.73_m2} Abnormal >[address] [facility] Comment on above: Order Comment: urea called to laure castillo, 11/26/2022 08:04 Result Comment: CALC ULATIONS OF ESTIMATED GFR ARE PERFORMED USING THE 2020 CKD-EPI STUDY REFIT EQUATION WITHOUT THE RACE VARIABLE FOR THE IDMS-TRACEABLE CREATININE METHODS. https://jasn.asnjournals.org/content/early//ASN.67962 41359 Performed By: #### P TINR #### [address] [address] Glucose [Mass/Vol] 85 mg/dL Normal 74 - 99 [facility] Comment on above: Order Comment: urea called to laure castillo, 11/26/2022 08:04 Performed By: #### P TINR #### [address] [address] HCO3 (Bld) [Moles/Vol] 32 mmol/L Normal 21 - 32 [facility] Comment on above: Order Comment: urea called to laure mai castillo, 11/26/2022 08:04 Performed By: #### P TINR #### [address] [address] Potassium [Moles/Vol] 3.6 mmol/L Normal 3.5 - 5.3 [facility] Comment on above: Order Comment: urea called to laure oneill , 11/26/2022 08:04 Performed By: #### P TINR #### [address] [address] Protein [Mass/Vol] 5.7 g/dL Low 6.4 - 8.2 [facility] Comment on above: Order Comment: urea called to laureprasanth castillo, 11/26/2022 08:04 Performed By: #### P TINR #### [place] [id number] Sodium [Moles/Vol] 138 mmol/L Normal 136 - 145 [facility] Comment on above: Order Comment: urea called to laure oneill , 11/26/2022 08:04 Performed By: #### P TINR #### [address] [address] Daily Progress Note-Medicine on 11-26-2022 Daily Progress Note-Medicine Service: Medicine Subjective Data: GENET BOOTH is a 77 year old Male who is Hospital Day # 7 and POD #3 for 1. Cystoscopy w/Retrogrades BILATERAL, L STENT, BLADDER TISSUE RESECTION; No significant anasarca or change in mentation or shortness of breath or nausea vomiting or palpitations or fever chills Monitoring kidney function. Objective Data: Objective Information: T PRBPMAPSpO2 [id number] % Date/Time11/26 14: 14: 14: 14: 20: 14:50 Range(36.3C - 37.3C ) (77 - 87 ) (18 - 20 ) (148 - 171 )/ (71 - 90 ) (110 - 110 ) (90% - 93% ) Highest temp of 37.3 C was recorded at 11/25 20:35 Pain reported at 11/26 10:12: 0 = None Physical Exam Narrative: Physical Exam: Constitutional: awake/alert/oriented x3, not in acute distress, obese Eyes: PERRL, EOMI, clear sclera ENMT: normal hearing, mucous membranes moist, no pharyngeal erythema or exudates Head/Neck: neck supple, no apparent injury, no JVD, no lymphadenopathy, trachea midline Respiratory/Thorax: patent airways, clear to auscultation bilaterally, no crackles or wheezing or rhonchi Cardiovascular: Regular, rate and rhythm, no murmurs, 2+ equal pulses of the extremities Gastrointestinal: Distended from obesity, positive bowel sounds, soft, non-tender, no rebound tenderness or guarding, no masses palpable, no organomegaly Extremities: no edema Neurological: intact senses, motor, response and reflexes, normal strength, babinski negative Psychological: Appropriate mood and behavior Skin: warm, no rashes Medication: Medications: Continuous Medications 1. Lactated Ringers Infusion: 1000 mL IntraVenous Scheduled Medications 1. Famotidine: 20 mg Oral Daily 2. Isosorbide Mononitrate Extended Release: 30 mg Oral Daily 3. Micafungin IV Piggy Back: 100 mg IntraVenous Piggyback Every 24 Hours 4. NIFEdipine (PROCARDIA XL) Extended Release: 30 mg Oral Daily 5. Nystatin 100,000 Units/ gram Topical: 1 application(s) Topical 3 Times a Day PRN Medications 1. Acetaminophen: 650 mg Oral Every 4 Hours 2. Acetaminophen: 650 mg Oral Every 4 Hours 3. ALPRAZolam: 0.25 mg Oral Every 8 Hours 4. Lidocaine 2% (UROJET) Topical Gel: 5 mL Topical Every 4 Hours 5. Loperamide: 2 mg Oral Every 4 Hours 6. Ondansetron Injectable: 4 mg IntraVenous Push Every 4 Hours Recent Lab Results: Results: CBC: 11/26/2022 05:34 \ Hgb / \ 8.4 L / WBC Plt 6.9 225 / Hct \ / 27.1 L \ RBC: 2.93 L MCV: 93 CMP: 11/26/2022 05:34 NA+ Cl- BUN / 138 90 L 140 HH / Glucose ----- 85 K+ HCO3- Creat \ 3.6 32 10.74 H \ \ T Bili / \ 0.3 / AST x ---- x ALT 23 x ---- x 15 / Alk P \ / 62 \ Calcium : 6.2 L Anion Gap : 20 Albumin : 2.7 L T Protein : 5.7 L Assessment and Plan: Daily Risk Screen: Does patient have an indwelling urinary catheteryes Plan for indwelling urinary catheter removal todayyes Comorbidities: ComorbidityOther Code Status: Code StatusFull Code Assessment: Follow daily CBC BMP and monitor clinical progress and vitals r s/p prostatectomy, bladder tumor, urethral stricture, obesity, obstructive sleep apnea, hypertension, left knee chronic pain, hypothyroidism, gout, hyperlipidemia, depression and a questionable poor compliance/adherence with his medications and following up with a family doctor, who presented to the emergency room for a 1 week history of weakness. Patient was found to have sepsis [tachycardia, leukocytosis, lactic acidosis] associated with significant acute kidney injury and metabolic acidosis and secondary to community-acquired pneumonia as well as a possible urinary tract infection. Plan Appreciate nephrology and urology recommendations Continue to monitor kidney function and urine output patient will require hemodialysis likely soon but no acute indication yet Asymptomatic currently and hemodynamically stable maintaining vital saturations S/p cystoscopy and right ureteral stent placement as wellOn 11/23 Continue current home medications as ordered Supportive care symptomatic management Education counseling DC'd Rocephin If he remains stable with renal parameters not worsening further then DC in 24 hours with close follow-up outpatient May need dialysis in near future Continue IV fluids Follow daily CBC BMP and monitor clinical progress and vitals rehab tomorrow if stable kidney function - follow further outpatient to set up HD if needed Electronic Signatures: Giovanni Pardo) (Signed 26-Nov-2022 18:38) Authored: Service, Subjective Data, Objective Data, Assessment and Plan, Note Completion Last Updated: 26-Nov-2022 18:38 by Giovanni Pardo) [facility] Daily Progress Note-Nephrolo gyon 11-26-2022 Daily Progress Note-Nephrology Service: Nephrology Subjective Data: GENET BOOTH is a 77 year old Male who is Hospital Day # 7 and POD #3 for 1. Cystoscopy w/Retrogrades BILATERAL, L STENT, BLADDER TISSUE RESECTION; Patient seen and examined at the bedside this morning He is resting comfortably in bed Has no major complaints States that he is overall weak and is going to need rehab. Objective Data: Objective Information: T PRBPMAPSpO2 [id number] 90% Date/Time11/26 8: 8: 8: 8: 20: 8:37 Range(36.3C - 37.3C ) (77 - 87 ) (18 - 20 ) (148 - 171 )/ (71 - 90 ) (110 - 110 ) (90% - 93% ) Highest temp of 37.3 C was recorded at 11/25 20:35 Pain reported at 11/26 10:12: 0 = None Physical Exam by System: Constitutional: Awake, alert, oriented, no acute distress Eyes: Extraocular muscles intact ENMT: Moist mucous membranes Head/Neck: Normocephalic, atraumatic Respiratory/Thorax: Bilateral equal breath sounds Cardiovascular: Regular rate and rhythm Gastrointestinal: Soft, nontender, nondistended Genitourinary: Jamison catheter in place Musculoskeletal: Moving all extremities with equal strength Extremities: No peripheral edema Neurological: Awake, alert, oriented Positive slight tremor of bilateral upper extremities Psychological: Calm Skin: Warm and dry Medication: Medications: Continuous Medications 1. Lactated Ringers Infusion: 1000 mL IntraVenous Scheduled Medications 1. Famotidine: 20 mg Oral Daily 2. Isosorbide Mononitrate Extended Release: 30 mg Oral Daily 3. Nystatin 100,000 Units/ gram Topical: 1 application(s) Topical 3 Times a Day PRN Medications 1. Acetaminophen: 650 mg Oral Every 4 Hours 2. Acetaminophen: 650 mg Oral Every 4 Hours 3. ALPRAZolam: 0.25 mg Oral Every 8 Hours 4. Lidocaine 2% (UROJET) Topical Gel: 5 mL Topical Every 4 Hours 5. Ondansetron Injectable: 4 mg IntraVenous Push Every 4 Hours Recent Lab Results: Results: CBC: 11/26/2022 05:34 \ Hgb / \ 8.4 L / WBC Plt 6.9 225 / Hct \ / 27.1 L \ RBC: 2.93 L MCV: 93 CMP: 11/26/2022 05:34 NA+ Cl- BUN / 138 90 L 140 HH / Glucose ----- 85 K+ HCO3- Creat \ 3.6 32 10.74 H \ \ T Bili / \ 0.3 / AST x ---- x ALT 23 x ---- x 15 / Alk P \ / 62 \ Calcium : 6.2 L Anion Gap : 20 Albumin : 2.7 L T Protein : 5.7 L Assessment and Plan: Daily Risk Screen: Does patient have an indwelling urinary cathetern/a consulting service Comorbidities: ComorbidityOther Code Status: Code StatusFull Code Assessment: Acute Renal Failure Bilateral hydronephrosis Azotemia without any overt signs of uremia Urinary frequency Ureteral Stricture and Nephrolithiasis History of prostate cancer status post prostatectomy Slight hypokalemia Slight hyponatremia Hyperphosphatemia Plan: S/P Stents placed 11/23 Continue lactated Ringer's for now At this time he continues to have some slow progression of positive when it comes to his renal function I discussed once again with him that it is still not guaranteed that he is not going to need renal replacement therapy However at this time he continues to be asymptomatic and so we can continue to watch and wait He is feeling weak He states that he is going to go to rehab When rehab has been set up he can go at any time and I can follow him as an outpatient and if renal replacement therapy is eventually needed then we can start as an outpatient Electronic Signatures: Tiana De León () (Signed 26-Nov-2022 12:36) Authored: Service, Subjective Data, Objective Data, Assessment and Plan, Note Completion Last Updated: 26-Nov-2022 12:36 by Tiana De León () [facility] Daily Progress Note-Urologyo n 11-26-2022 Daily Progress Note-Urology Service: Urology Review of Systems: Review of Systems: Constitutional: NEGATIVE: Fever, Chills Respiratory: NEGATIVE: Shortness of Breath Cardiac: NEGATIVE: Chest Pain Gastrointestinal: NEGATIVE: Nausea, Vomiting Genitourinary: NEGATIVE: Flank Pain Musculoskeletal: POSITIVE: Decreased ROM, Weakness Neurological: NEGATIVE: Confusion, Headache Psychiatric: POSITIVE: Anxiety Skin: NEGATIVE: Rash Subjective Data: GENET BOOTH is a 77 year old Male who is Hospital Day # 7 and POD #3 for 1. Cystoscopy w/Retrogrades BILATERAL, L STENT, BLADDER TISSUE RESECTION; Patient was seen and examined this morning. Patient denies fever, chills, shortness of breath, chest pain, nausea, vomiting, flank pain, and/or any pain from the stent. Overnight Events: Patient had an uneventful night. Objective Data: Objective Information: T PRBPMAPSpO2 [id number] 90% Date/Time11/26 8: 8: 8: 8: 20: 8:37 Range(36.3C - 37.3C ) (77 - 87 ) (18 - 20 ) (148 - 171 )/ (71 - 90 ) (110 - 110 ) (90% - 93% ) Highest temp of 37.3 C was recorded at 11/25 20:35 Pain reported at 11/26 10:12: 0 = None Physical Exam by System: Constitutional: Awake/alert/oriented x3, no distress. Eyes: EOMI, clear sclera ENMT: Mucous membranes moist, no apparent injury. Head/Neck: Normocephalic, atraumatic Respiratory/Thorax: Nonlabored breathing, chest rise symmetrical Gastrointestinal: Abdomen soft, nondistended, nontender. Genitourinary: Bladder nondistended, nontender. No flank tenderness on palpation. Indwelling Jamison catheter is patent draining light clear yellow urine with tiny pink sediments Musculoskeletal: ROM intact. Extremities: Moves all extremities easily. Neurological: Alert and oriented x3 Psychological: Appropriate mood and behavior. Skin: Warm and dry. Medication: Medications: Continuous Medications 1. Lactated Ringers Infusion: 1000 mL IntraVenous Scheduled Medications 1. Famotidine: 20 mg Oral Daily 2. Isosorbide Mononitrate Extended Release: 30 mg Oral Daily 3. Nystatin 100,000 Units/ gram Topical: 1 application(s) Topical 3 Times a Day PRN Medications 1. Acetaminophen: 650 mg Oral Every 4 Hours 2. Acetaminophen: 650 mg Oral Every 4 Hours 3. ALPRAZolam: 0.25 mg Oral Every 8 Hours 4. Lidocaine 2% (UROJET) Topical Gel: 5 mL Topical Every 4 Hours 5. Ondansetron Injectable: 4 mg IntraVenous Push Every 4 Hours Recent Lab Results: Results: CBC: 11/26/2022 05:34 \ Hgb / \ 8.4 L / WBC Plt 6.9 225 / Hct \ / 27.1 L \ RBC: 2.93 L MCV: 93 CMP: 11/26/2022 05:34 NA+ Cl- BUN / 138 90 L 140 HH / Glucose ----- 85 K+ HCO3- Creat \ 3.6 32 10.74 H \ \ T Bili / \ 0.3 / AST x ---- x ALT 23 x ---- x 15 / Alk P \ / 62 \ Calcium : 6.2 L Anion Gap : 20 Albumin : 2.7 L T Protein : 5.7 L Radiology Results: Results: Impression: MODERATE TO EXTENSIVE RIGHT HYDRONEPHROSIS AND HYDROURETER EXTENDING ALL THE WAY TO THE UVJ, BUT NO STONE ANYWHERE ON THE RIGHT SIDE OF THE URINARY TRACT THE MILDER LEFT HYDRONEPHROSIS AND HYDROURETER IS DUE TO A LESS THAN 3 MM (TOO SMALL TO ACCURATELY MEASURE ATTENUATION) OBSTRUCTING STONE AT OR WITHIN 1 CM OF THE LEFT UVJ ADDITIONAL NONOBSTRUCTING LEFT NEPHROLITHIASIS SIGNIFICANT PARENCHYMAL RENAL ATROPHY THROUGHOUT ALL OF THE LEFT KIDNEY HAS DEVELOPED SOMETIME SINCE CT FROM April, SUSPECT CYSTITIS. INFLAMMATORY FAT STRANDING SURROUNDS THE URINARY BLADDER NO URINE LEAK/URINOMA NO SEPARATE ACUTE PROCESS OUTSIDE THE URINARY TRACT SUCH ACUTE DIVERTICULITIS CT Abdomen and Pelvis without Contrast [Nov 22 2022 3:33PM] Impression: Bilateral hydronephrosis is worsened since the CT of 04/28/2018; there is also debris versus irregular urothelial thickening involving the right renal pelvis through the right ureteropelvic junction, as well as within a calyx in the interpolar region. While this could represent nonspecific blood products or infectious material, foci of urothelial neoplasm could also have this appearance. Dedicated urologic evaluation is recommended for further assessment. Ultrasound Renal Bilateral [Nov 21 2022 3:51PM] Impression: Left basilar pneumonia with volume loss. Xray Chest 1 View [Nov 20 2022 8:52AM] Assessment and Plan: Daily Risk Screen: Does patient have an indwelling urinary catheteryes Plan for indwelling urinary catheter removal todayno The patient continues to require indwelling urinary catheterization for urinary retention/bladder outlet obstruction, acute or chronic Code Status: Code StatusFull Code Assessment: Impression Bilateral hydron (more content not included)... Normal [facility] Laboratory - Chemistry and C hemistry - challengeon 11-26-2022 Albumin BCP dye [Mass/Vol] 2.7 g/dL below low threshold 3.4 - 5.0 CD-Tcqnydu-Qis [facility] Work Phone: ALP [Catalytic activity/Vol] 62 U/L 33 - 136 JY-Zaphcft-Yju land Work Phone: ALT With P-5'-P [Catalytic activity/Vol] 15 U/L 10 - 52 TQ-Jkkdwkt-Xoq land Work Phone: Comment on above: Patients treated wit h Sulfasalazine may generate falsely decreased results for ALT. Anion gap [Moles/Vol] 20 mmol/L 10 - 20 MP- Urology-Niall [facility] Work Phone: AST With P-5'-P [Catalytic activity/Vol] 23 U/L 9 - 39 JV-Nnxhqqv-Yfm land Work Phone: Bilirubin [Mass/Vol] 0.3 mg/dL 0.0 - 1.2 MP-U rology-Niall land Work Phone: Calcium [Mass/Vol] 6.2 mg/dL below low threshold 8.6 - 10.3 IF-Mrrgbtj-Dyx land Work Phone: Chloride [Moles/Vol] 90 mmol/L below low threshold 98 - 107 EJ-Rufolyf-Jmn land Work Phone: CO2 [Moles/Vol] 32 mmol/L 21 - 32 MP-Urolog y-Niall land Work Phone: Creatinine [Mass/Vol] 10.74 mg/dL above high threshold See Below OW-Lqzozhx-Gxd land Work Phone: Comment on above: Reference Range: 0.5 0 - 1.30 Glucose [Mass/Vol] 85 mg/dL 74 - 99 MP-Uro logy-Niall land Work Phone: Potassium [Moles/Vol] 3.6 mmol/L 3.5 - 5.3 MP- Urology-Niall [facility] Work Phone: Protein [Mass/Vol] 5.7 g/dL below low threshold 6.4 - 8.2 SB-Fenzkdn-Ean land Work Phone: Sodium [Moles/Vol] 138 mmol/L 136 - 145 MP-Uro logy-Niall land Work Phone: Urea nitrogen [Mass/Vol] 140 mg/dL Critically high 6 - 23 DP-Ojskmpv-Krw land Work Phone: Comment on above: urea called to tasha castillo, 11/26/2022 08:04 Laboratory - Hematology and Cell countson 11-26-2022 Erythrocyte distribution width (RBC) [Ratio] 13.2 % See Below KG-Elhtnfc-Fob land Work Phone: Comment on above: Reference Range: 11. 5 - 14.5 Hematocrit (Bld) [Volume fraction] 27.1 % below low threshold See Below OA-Akmxfnc-Emj land Work Phone: Comment on above: Reference Range: 41. 0 - 52.0 Hemoglobin (Bld) [Mass/Vol] 8.4 g/dL below low threshold See Below IH-Uqiigdr-Hhf land Work Phone: Comment on above: Reference Range: 13. 5 - 17.5 MCHC (RBC) [Mass/Vol] 31.0 g/dL below low threshold See Below VE-Yudrmrm-Bbg land Work Phone: Comment on above: Reference Range: 32. 0 - 36.0 MCV (RBC) [Entitic vol] 93 fL 80 - 100 TI-Ezhkbsd-Ymm [employer] Work Phone: Platelets (Bld) [#/Vol] 225 10*3/uL 150 - 450 ZH-Hnobire-Xhk land Work Phone: RBC (Bld) [#/Vol] 2.93 {x10E12/L} below low threshold See Below WV-Qowcynu-Aap land Work Phone: Comment on above: Reference Range: 4.5 0 - 5.90 WBC (Bld) [#/Vol] 6.9 10*3/uL 4.4 - 11.3 MP-Uro logy-Niall [employer] Work Phone: No Panel Informationon 11-26 4 {mL/min/1.73m2} Abnormal >90 MP-Urol ogy-Niall land Work Phone: Comment on above: CALCULATIONS OF ALEJANDRA MATED GFR ARE PERFORMED USING THE 2020 CKD-EPI STUDY REFIT EQUATION WITHOUT THE RACE VARIABLE FOR THE IDMS-TRACEABLE CREATININE METHODS.https://jasn.asnjournals.org/content//A SN.5622068049 Rehab Note-individual therap yon 11-26-2022 Rehab Note-individual therapy Rehab: 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 at end of sessionchair; alarm on Patient Effortfair Line and Tubesurethral catheter indwelling Pre Treatment Patient Positionsitting Pre Treatment SpO2 (%)97 % Pre Treatment Oxygen Deliveryroom air During Treatment Patient Positionsitting During Treatment SpO2 (%)96 % During Treatment Oxygen Deliveryroom air Post Treatment Patient Positionsitting Post Treatment SpO2 (%)96 % Post Treatment Oxygen Deliveryroom air Vision/Cognition: Affect/Mental Status (Cognitive)WFL Mobility/Tone: Transfer Assessment/Interventio nssit to stand transfer Sit-Stand [place] (Transfers)contact guard; 1 person assist Sit-Stand Assistive Device (Transfers)gait belt; walker, front-wheeled Gait/Stairs Locomotiongait/ambulat ion independence; gait/ambulation assistive device; distance ambulated Gait Locomotion (Gait)minimum assist (75% patient effort); 1 person assist Assistive Device (Gait Training)gait belt; walker, front-wheeled Distance in Feet (Gait Training)8ft. Safety Issues Impacting Function (Mobility)positioning of assistive device; insight into deficits/self awareness; impulsivity; awareness of need for assistance Impairments Impacting Function (Mobility)balance; endurance/activity tolerance; pain; strength Motor: Lower Extremity (Therapeutic Exercise)B/L: AP/resisted PF/heel slides/QS/LAQ's/seated rachel pal. x10-12 reps each Sensory: Pre-Treatment Pain Rating7/10 Post-Treatment Pain Rating7/10 Comment, Pre/Post Treatment PainC/o pain with right hip and left knee. Pain LimitationFunctional mobility limited due pain Outcomes Tools: Turning from your back to your side while in a flat bed without using bedrails a lot Moving from lying on your back to sitting on the side of a flat bed without using bedrailsa lot Moving to and from bed to chair (including a wheelchair)a little Standing up from a chair using your arms (e.g. wheelchair or bedside chair)a little To walk in hospital rooma little Climbing 3-5 steps with railinga lot AM-PAC (PT) Total Score15 Short Term Goals: Bed Mobility: Date [id number] Bed Mobility: [place] Level Goalindependent Bed Mobility: Physical Assist Level Goalset-up Bed Mobility: Time Frame for Goal1 wk Transfer: Established Transfer: Transfer Type Goalall transfers Transfer: [place] Level Goalmodified independent Transfer: Physical Assist Level Goalset-up Transfer: Assistive Device Goalrolling walker Transfer: Time Frame for Goal1 wk Gait: Established Gait: [place] Level Goalminimum assist (75% patients effort) Gait: Physical Assist Levelset-up; 1-person assist Gait: Assistive Device Goalrolling walker Gait: Distance [id number] Gait: Time Frame for Goal1 wk Stair: Established Stair: [place] Level Goalmoderate assist (50% patients effort) Stair: Physical Assist Levelset-up; 1-person assist Stair: Goal Detailsx5 steps with BHR Stair: Time Frame for Goal1 wk Outcome Summary: Progress: Physical Therapyprogress towards functional goals is fair Outcome Summary: Physical TherapyPt. sitting in chair upon arrival, agreeable to therapy. Pt. states he is very tired today. Pt. c/o pain with his right hip and left knee. Pt. had difficulty with some of the exercises d/t pain with affected areas. Pt. required frequent breaks between sets of exercises d/t fatigue. CGA/min assist x1 with transfers and with gait. Pt. took about 4 steps forwards and then back to chair. Pt. did okay taking a few steps forwards but does tend to veer to his left. Pt. began to panic as he walked back to the chair. Verbal cues needed with keeping walker closer to him. Pt. positioned back in the chair with call light within reach. Continue with plan of care and progress per tolerance to improve ambulation/transfers with greater ease/safety. PERLA Electronic Signatures: Asha Zhou (ROCKY) (Signed 26-Nov-2022 14:07) Authored: Info, Vision/Cognition, Mobility/Tone, Motor, Sensory, Outcomes Tools, Short Term Goals, Outcome Summary Mitzy Payan (PT) (Signed 27-Nov-2022 09:13) Co-Signer: Info, Vision/Cognition, Mobility/Tone, Motor, Sensory, Outcomes Tools, Short Term Goals, Outcome Summary Last Updated: 27-Nov-2022 09:13 by Mitzy Payan (PT) Normal [facility] STOOL PATHOGEN PCR PANELon 0 11-26-2022 CAMPYLOBACTER GP. Not detected Normal NOT DETECTED [facility] Comment on above: Performed By: #### P TINR #### [place] [address] NOROVIRUS GI/GII Not detected Normal NOT DETECTED [facility] Comment on above: Performed By: #### P TINR #### [place] [address] ROTAVIRUS A Not detected Normal NOT DETECTED [facility] Comment on above: Result Comment: The enteric PCR panel is a panel of sensitive and specific amplified nucleic acid tests indicated as an aid in the diagnosis of specific bacterial and viral agents of gastrointestinal illness, in conjunction with other clinical, laboratory, and epidemiological information. This test is not approved for monitoring these infections. Monitoring is available for Salmonella and Shigella infections-request test Stool PCR Follow-Up (STLPF). Monitoring tests are not available at this time for other enteric agents in this panel. Performed By: #### P TINR #### [place] [address] SALMONELLA SP. Not detected Normal NOT DETECTED [facility] Comment on above: Performed By: #### P TINR #### [place] [address] SHIGA TOXIN 1 Not detected Normal NOT DETECTED [facility] Comment on above: Performed By: #### P TINR #### [place] [address] SHIGA TOXIN 2 Not detected Normal NOT DETECTED [facility] Comment on above: Performed By: #### P TINR #### [place] [address] SHIGELLA SP. Not detected Normal NOT DETECTED [facility] Comment on above: Performed By: #### P TINR #### [place] [address] [employer] Not detected Normal NOT DETECTED [facility] Comment on above: Performed By: #### P TINR #### [place] [address] YERSINIA ENTEROCOLITICA Not detected Normal NOT DETECTED [facility] Comment on above: Performed By: #### P TINR #### [place] [address] CBCon 11-25-2022 Erythrocyte distribution width (RBC) [Ratio] 13.4 % Normal 11.5 - 14.[address] [facility] Comment on above: Performed By: #### P TINR #### [place] [address] Hematocrit (Bld) [Volume fraction] 24.1 % Low 41.0 - 52.[address] [facility] Comment on above: Performed By: #### P TINR #### [place] [address] Hemoglobin (Bld) [Mass/Vol] 7.7 g/dL Low 13.5 - 17.[address] [facility] Comment on above: Performed By: #### P TINR #### [place] [address] MCHC (RBC) [Mass/Vol] 32.0 g/dL Normal 32.0 - 36.0 [facility] Comment on above: Performed By: #### P TINR #### [place] [id number] MCV (RBC) [Entitic vol] 90 fL Normal 80 - [address] [facility] Comment on above: Performed By: #### P TINR #### [place] [id number] Platelets (Bld) [#/Vol] 218 10*3/uL Normal 150 - [address] [facility] Comment on above: Performed By: #### P TINR #### [address] [address] RBC 2.69 x10E12/L Low 4.50 - 5.[address] [facility] Comment on above: Performed By: #### P TINR #### [address] [address] WBC (Bld) [#/Vol] 6.4 10*3/uL Normal 4.4 - 11.3 [facility] Comment on above: Performed By: #### P TINR #### [place] [id number] CLOST DIFF. TOXIN, PCRon CLOST.DIFF.TOXIN,PCR Not detected Normal Not Detected [facility] Comment on above: Result Comment: This assay detects the presence of the tcdB (toxin B) gene via DNA amplification, and results should be interpreted in the context of the patients history and clinical findings. This test cannot be performed on formed stools or used as a test of cure, and should not be performed more than once per 7 days. Performed By: #### C BC #### [place] [id number] Lab Specimen Source Stool Normal [facility] Comment on above: Performed By: #### C BC #### [place] [id number] C. difficile toxin genes JACK+probe Ql (Stl) Not detected See Below [place]Nroyrpi-Ael [facility] Work Phone: Comment on above: SOURCE: StoolReferen ce Range: Not Detected This assay detects the presence of the tcdB (toxin B) gene via DNA amplification, and results should be interpreted in the context of the patients history and clinical findings. This test cannot be performed on formed stools or used as a test of cure, and should not be performed more than once per 7 days. COMPREHENSIVE PANELon 2022 Urea nitrogen [Mass/Vol] 155 mg/dL Critically high 6 - [facility] Comment on above: Order Comment: BUN,C A CALLED RB TO TESSY SEGURA , 11/25/2022 06:32 Result Comment: BUN, CA CALLED RB TO TESSY SEGURA , 11/25/2022 06:32 Performed By: #### C BC #### [address] [address] Albumin [Mass/Vol] 2.8 g/dL Low 3.4 - 5.0 [facility] Comment on above: Order Comment: BUN,C A CALLED RB TO TESSY LATRICEA , 11/25/2022 06:32 Performed By: #### C BC #### [place] [address] ALP [Catalytic activity/Vol] 55 U/L Normal 33 - [address] [facility] Comment on above: Order Comment: BUN,C A CALLED RB TO TESSY GAILILLIA , 11/25/2022 06:32 Performed By: #### C BC #### [place] [address] ALT [Catalytic activity/Vol] 12 U/L Normal 10 - [address] [facility] Comment on above: Order Comment: BUN,C A CALLED RB TO TESSY GAILILLIA , 11/25/2022 06:32 Result Comment: Rhea ents treated with Sulfasalazine may generate falsely decreased results for ALT. Performed By: #### C BC #### [place] [address] Anion gap [Moles/Vol] 20 mmol/L Normal 10 - 20 [facility] Comment on above: Order Comment: BUN,C A CALLED RB TO TESSY GAILILLIA , 11/25/2022 06:32 Performed By: #### C BC #### [place] [id number] AST [Catalytic activity/Vol] 16 U/L Normal 9 - [address] [facility] Comment on above: Order Comment: BUN,C A CALLED RB TO TESSY VERMILLIA , 11/25/2022 06:32 Performed By: #### C BC #### [place] [id number] Bilirubin [Mass/Vol] 0.2 mg/dL Normal 0.0 - 1.2 [facility] Comment on above: Order Comment: BUN,C A CALLED RB TO TESSY VERMILLIA , 11/25/2022 06:32 Performed By: #### C BC #### [address] [address] Calcium [Mass/Vol] 5.6 mg/dL Critically low 8.6 - 10.3 [facility] Comment on above: Order Comment: BUN,C A CALLED RB TO TESSY SEGURA , 11/25/2022 06:32 Result Comment: BUN, CA CALLED RB TO TESSY SEGURA , 11/25/2022 06:32 Performed By: #### C BC #### [address] [address] Chloride [Moles/Vol] 88 mmol/L Low 98 - 107 [facility] Comment on above: Order Comment: BUN,C A CALLED RB TO TESSY SEGURA , 11/25/2022 06:32 Performed By: #### C BC #### [address] [address] Creatinine [Mass/Vol] 11.48 mg/dL High 0.50 - 1.30 [facility] Comment on above: Order Comment: BUN,C A CALLED RB TO TESSY SEGURA , 11/25/2022 06:32 Performed By: #### C BC #### [address] [address] GFR/1.73 sq M.predicted among non-blacks MDRD (S/P/Bld) [Vol rate/Area] 4 mL/min/{1.73_m2} Abnormal >[address] [facility] Comment on above: Order Comment: BUN,C A CALLED RB TO TESSY SEGURA , 11/25/2022 06:32 Result Comment: CALC ULATIONS OF ESTIMATED GFR ARE PERFORMED USING THE 2020 CKD-EPI STUDY REFIT EQUATION WITHOUT THE RACE VARIABLE FOR THE IDMS-TRACEABLE CREATININE METHODS. https://jasn.asnjournals.org/content/early/ASN.48812 53403 Performed By: #### C BC #### [address] [address] Glucose [Mass/Vol] 105 mg/dL High 74 - 99 [facility] Comment on above: Order Comment: BUN,C A CALLED RB TO TESSY SEGURA , 11/25/2022 06:32 Performed By: #### C BC #### [place] [id number] HCO3 (Bld) [Moles/Vol] 33 mmol/L High 21 - 32 [facility] Comment on above: Order Comment: BUN,C A CALLED RB TO TESSY SEGURA , 11/25/2022 06:32 Performed By: #### C BC #### [place] [address] Potassium [Moles/Vol] 3.5 mmol/L Normal 3.5 - 5.3 [facility] Comment on above: Order Comment: BUN,C A CALLED RB TO TESSY SEGURA , 11/25/2022 06:32 Performed By: #### C BC #### [place] [address] Protein [Mass/Vol] 5.7 g/dL Low 6.4 - 8.2 [facility] Comment on above: Order Comment: BUN,C A CALLED RB TO TESSY SEGURA , 11/25/2022 06:32 Performed By: #### C BC #### [place] [address] Sodium [Moles/Vol] 137 mmol/L Normal 136 - 145 [facility] Comment on above: Order Comment: BUN,C A CALLED RB TO TESSY SEGURA , 11/25/2022 06:32 Performed By: #### C BC #### [place] [address] Consult-Urologyon 11-25-2022 Consult-Urology Service: Service: Urology Consult: Consult requested by (Attending Name): Tiana De León Reason: [place] History of Present Illness: HPI: GENET BOOTH is a 77 year old Male presented to the ED on November 23 with complaints of weakness, fatigue and urinary frequency. On presentation, blood pressure 147/78, heart rate 103, respiratory rate 18, afebrile, saturation oxygen 96% on room air. Pertinent findings on blood work-up; WBC 15,200, hemoglobin 11.2, D-dimer 1729, bicarbonate 7, BUN 205, creatinine 16.9 and lactic acid 2.6. Chest x-ray showed a left basilar pneumonia with volume loss. Patient was given in the emergency room ceftriaxone and azithromycin and IV fluids and then admitted to the medical service for further investigation and management. Patient was seen and examined. Patient denies any pain from his stent, and/or flank pain. Patient denies nausea, vomiting, fever, chills, shortness of breath and/or chest pain. Patient's Jamison catheter is draining significant amount of sediment, creamy orangeish. Past medical history Prostate cancer Bladder tumor Urethral stricture Obstructive sleep apnea Hypertension Left knee chronic pain Hypothyroidism Gout Hyperlipidemia Depression Past surgical history Prostatectomy Family history Not pertinent to HPI Social history Former smoker, denies alcohol and/or illicit drug use Review Family/Social History and ROS: Constitutional: NEGATIVE: Fever, Chills Respiratory: NEGATIVE: Shortness of Breath Cardiac: NEGATIVE: Chest Pain Gastrointestinal: NEGATIVE: Nausea, Vomiting, Abdominal Pain Genitourinary: NEGATIVE: Flank Pain, Hematuria Musculoskeletal: POSITIVE: Weakness Neurological: NEGATIVE: Confusion, Headache Psychiatric: POSITIVE: Anxiety Skin: NEGATIVE: Rash Allergies: iodine: Unknown Objective: Objective Information: T PRBPMAPSpO2 [id number] 1% Date/Time11/25 7: 7: 7: 7: 15: 7:34 Range(36.3C - 36.9C ) (76 - 95 ) (16 - 22 ) (110 - 166 )/ (59 - 81 ) (69 - 98 ) (91% - 96% ) As of 24-Nov-2022 19:41:00, patient is on 1 L/min of oxygen via nasal cannula. Highest temp of 36.9 C was recorded at 11/24 4:00 Pain reported at 11/24 19:41: 0 = None Physical Exam by System: Constitutional: Awake/alert/oriented x3, no distress. Eyes: EOMI, clear sclera ENMT: Mucous membranes moist, no apparent injury. Head/Neck: Normocephalic, atraumatic Respiratory/Thorax: Nonlabored breathing, chest rise symmetrical, room air. Gastrointestinal: Abdomen soft, nondistended, nontender. Genitourinary: Bladder nondistended, nontender. No flank tenderness on palpation. Indwelling Jamison catheter is patent draining milky orangeish urine full of sediment. Musculoskeletal: ROM intact. Extremities: Moves all extremities easily. Neurological: Alert and oriented x3 Psychological: Appropriate mood and behavior. Skin: Warm and dry. Medications: Medications: Continuous Medications 1. Lactated Ringers Infusion: 1000 mL IntraVenous Scheduled Medications 1. Famotidine: 20 mg Oral Daily 2. Nystatin 100,000 Units/ gram Topical: 1 application(s) Topical 3 Times a Day PRN Medications 1. Acetaminophen: 650 mg Oral Every 4 Hours 2. Acetaminophen: 650 mg Oral Every 4 Hours 3. ALPRAZolam: 0.25 mg Oral Every 8 Hours 4. Lidocaine 2% (UROJET) Topical Gel: 5 mL Topical Every 4 Hours 5. Ondansetron Injectable: 4 mg IntraVenous Push Every 4 Hours Recent Lab Results: Results: I have reviewed these laboratory results: Comprehensive Metabolic Panel [facility] [id number] 04:48:00 23-Nov-2022 04:10:00 22-Nov-2022 04:27:00 Lab Comment:BUN,CA CALLED RB TO TESSY SEGURA , 11/25/2022 06:32 BUN CALLED RB TO NAE LUNA, 11/22/2022 06:46 Glucose, Qsfkl812 H 157 H 136 H NA137 133 L 133 L K3.5 3.3 L 4.2 CL88 L 93 L 103 Bicarbonate, Serum33 H 21 11 L Anion Gap, Serum20 22 H 23 H HFE621 HH 183 H 202 HH CREAT11.48 H 13.46 H 15.08 H GFR Male4 A 3 A 3 A Calcium, Serum5.6 LL 6.0 L 7.1 L ALB2.8 L 3.0 L 3.3 L ALKP55 54 59 T Pro5.7 L 5.8 L 6.4 T Bili0.2 0.2 0.3 Alanine Aminotransferase, Serum12 9 L 7 L Aspartate Transaminase, Serum16 8 L 7 L Complete Blood Count [facility] [id number] 04:48:00 24-Nov-2022 04:08:00 23-Nov-2022 04:10:00 22-Nov-2022 04:28:00 White Blood Cell Count6.4 9.3 8.6 7.2 Red Blood Cell Count2.69 L 2.64 L 2.62 L 2.87 L HGB7.7 L 7.6 L 7.5 L 8.1 L HCT24.1 L 23.0 L 22.8 L 26.4 L MCV90 87 87 92 MCHC32.0 33.0 32.9 30.7 L UIE373 230 234 257 RDW-CV13.4 13.6 13.7 13.9 Phosphorus, Serum [facility] [id number] 04:48:00 23-Nov-2022 04:10:00 22-Nov-2022 04:27:00 21-Nov-2022 04:35:00 Phosphorus, Serum7.8 H 8.5 H 9.1 H 11.0 H (more content not included)... Normal [facility] Daily Progress Note-Medicine on 11-25-2022 Daily Progress Note-Medicine Service: Medicine Subjective Data: GENET BOOTH is a 77 year old Male who is Hospital Day # 6 and POD #2 for 1. Cystoscopy w/Retrogrades BILATERAL, L STENT, BLADDER TISSUE RESECTION; No significant anasarca or change in mentation or shortness of breath or nausea vomiting or palpitations or fever chills Monitoring kidney function. Objective Data: Objective Information: T PRBPMAPSpO2 [id number] 1% Date/Time11/25 7: 7: 7: 7: 15: 7:34 Range(36.3C - 36.9C ) (76 - 95 ) (16 - 22 ) (110 - 166 )/ (59 - 81 ) (69 - 98 ) (91% - 96% ) As of 24-Nov-2022 19:41:00, patient is on 1 L/min of oxygen via nasal cannula. Highest temp of 36.9 C was recorded at 11/24 4:00 Pain reported at 11/24 19:41: 0 = None Physical Exam Narrative: Physical Exam: Constitutional: awake/alert/oriented x3, not in acute distress, obese Eyes: PERRL, EOMI, clear sclera ENMT: normal hearing, mucous membranes moist, no pharyngeal erythema or exudates Head/Neck: neck supple, no apparent injury, no JVD, no lymphadenopathy, trachea midline Respiratory/Thorax: patent airways, clear to auscultation bilaterally, no crackles or wheezing or rhonchi Cardiovascular: Regular, rate and rhythm, no murmurs, 2+ equal pulses of the extremities Gastrointestinal: Distended from obesity, positive bowel sounds, soft, non-tender, no rebound tenderness or guarding, no masses palpable, no organomegaly Extremities: no edema Neurological: intact senses, motor, response and reflexes, normal strength, babinski negative Psychological: Appropriate mood and behavior Skin: warm, no rashes Medication: Medications: Continuous Medications 1. Lactated Ringers Infusion: 1000 mL IntraVenous Scheduled Medications 1. Famotidine: 20 mg Oral Daily 2. Nystatin 100,000 Units/ gram Topical: 1 application(s) Topical 3 Times a Day PRN Medications 1. Acetaminophen: 650 mg Oral Every 4 Hours 2. Acetaminophen: 650 mg Oral Every 4 Hours 3. ALPRAZolam: 0.25 mg Oral Every 8 Hours 4. Lidocaine 2% (UROJET) Topical Gel: 5 mL Topical Every 4 Hours 5. Ondansetron Injectable: 4 mg IntraVenous Push Every 4 Hours Recent Lab Results: Results: CBC: 11/25/2022 04:48 \ Hgb / \ 7.7 L / WBC Plt 6.4 218 / Hct \ / 24.1 L \ RBC: 2.69 L MCV: 90 CMP: 11/25/2022 04:48 NA+ Cl- BUN / 137 88 L 155 HH / Glucose ----- 105 H K+ HCO3- Creat \ 3.5 33 H 11.48 H \ \ T Bili / \ 0.2 / AST x ---- x ALT 16 x ---- x 12 / Alk P \ / 55 \ Calcium : 5.6 LL Anion Gap : 20 Albumin : 2.8 L T Protein : 5.7 L Assessment and Plan: Daily Risk Screen: Does patient have an indwelling urinary catheteryes Plan for indwelling urinary catheter removal todayyes Comorbidities: ComorbidityOther Code Status: Code StatusFull Code Assessment: 77-year-old male with a past medical history of Prostate cancer s/p prostatectomy, bladder tumor, urethral stricture, obesity, obstructive sleep apnea, hypertension, left knee chronic pain, hypothyroidism, gout, hyperlipidemia, depression and a questionable poor compliance/adherence with his medications and following up with a family doctor, who presented to the emergency room for a 1 week history of weakness. Patient was found to have sepsis [tachycardia, leukocytosis, lactic acidosis] associated with significant acute kidney injury and metabolic acidosis and secondary to community-acquired pneumonia as well as a possible urinary tract infection. Plan Appreciate nephrology and urology recommendations Continue to monitor kidney function and urine output Parameters not improving so well in the right direction and patient will require hemodialysis likely soon but no acute indication yet Asymptomatic currently and hemodynamically stable maintaining vital saturations S/p cystoscopy and right ureteral stent placement as wellOn 11/23 Continue current home medications as ordered Supportive care symptomatic management Education counseling DC'd Rocephin If he remains stable with renal parameters not worsening further then DC in 24 hours with close follow-up outpatient May need dialysis in near future if patient okay with that Continue IV fluids for another 24 hours Follow daily CBC BMP and monitor clinical progress and vitals Electronic Signatures: Giovanni Pardo) (Signed 25-Nov-2022 14:58) Authored: Service, Subjective Data, Objective Data, Assessment and Plan, Note Completion Last Updated: 25-Nov-2022 14:58 by Giovanni Pardo) [facility] Daily Progress Note-Nephrolo aleida 11-25-2022 Daily Progress Note-Nephrology Service: Nephrology Subjective Data: GENET BOOTH is a 77 year old Male who is Hospital Day # 6 and POD #2 for 1. Cystoscopy w/Retrogrades BILATERAL, L STENT, BLADDER TISSUE RESECTION; Patient seen and examined at the bedside this morning He is sitting comfortably in the bedside chair Has no major complaints Continues to have urine output. Objective Data: Objective Information: T PRBPMAPSpO2 [id number] 1% Date/Time11/25 7: 7: 7: 7: 15: 7:34 Range(36.3C - 36.9C ) (76 - 95 ) (16 - 22 ) (110 - 166 )/ (59 - 81 ) (69 - 98 ) (91% - 96% ) As of 24-Nov-2022 19:41:00, patient is on 1 L/min of oxygen via nasal cannula. Highest temp of 36.9 C was recorded at 11/24 4:00 Pain reported at 11/24 19:41: 0 = None Physical Exam by System: Constitutional: Awake, alert, oriented, no acute distress Eyes: Extraocular muscles intact ENMT: Moist mucous membranes Head/Neck: Normocephalic, atraumatic Respiratory/Thorax: Bilateral equal breath sounds Cardiovascular: Regular rate and rhythm Gastrointestinal: Soft, nontender, nondistended Genitourinary: Jamison catheter in place Musculoskeletal: Moving all extremities with equal strength Extremities: No peripheral edema Neurological: Awake, alert, oriented Positive slight tremor of bilateral upper extremities Psychological: Calm Skin: Warm and dry Medication: Medications: Continuous Medications 1. Lactated Ringers Infusion: 1000 mL IntraVenous Scheduled Medications 1. cefTRIAXone 2 gram/Dextrose 5% IVPB Premixed Soln 50 mL: 50 mL IntraVenous Piggyback Every 24 Hours 2. Famotidine: 20 mg Oral Daily 3. Nystatin 100,000 Units/ gram Topical: 1 application(s) Topical 3 Times a Day PRN Medications 1. Acetaminophen: 650 mg Oral Every 4 Hours 2. Acetaminophen: 650 mg Oral Every 4 Hours 3. ALPRAZolam: 0.25 mg Oral Every 8 Hours 4. Lidocaine 2% (UROJET) Topical Gel: 5 mL Topical Every 4 Hours 5. Ondansetron Injectable: 4 mg IntraVenous Push Every 4 Hours Recent Lab Results: Results: CBC: 11/25/2022 04:48 \ Hgb / \ 7.7 L / WBC Plt 6.4 218 / Hct \ / 24.1 L \ RBC: 2.69 L MCV: 90 CMP: 11/25/2022 04:48 NA+ Cl- BUN / 137 88 L 155 HH / Glucose ----- 105 H K+ HCO3- Creat \ 3.5 33 H 11.48 H \ \ T Bili / \ 0.2 / AST x ---- x ALT 16 x ---- x 12 / Alk P \ / 55 \ Calcium : 5.6 LL Anion Gap : 20 Albumin : 2.8 L T Protein : 5.7 L Assessment and Plan: Daily Risk Screen: Does patient have an indwelling urinary cathetern/a consulting service Comorbidities: ComorbidityOther Code Status: Code StatusFull Code Assessment: Acute Renal Failure Bilateral hydronephrosis Azotemia without any overt signs of uremia Urinary frequency Ureteral Stricture and Nephrolithiasis History of prostate cancer status post prostatectomy Slight hypokalemia Slight hyponatremia Hyperphosphatemia Plan: S/P Stents placed 11/23 We will discontinue Rocephin Continue lactated Ringer's for now I discussed with him once again that his renal parameters do not look good He continues to want to wait on dialysis At this time he does not have any signs of uremia and so no need for acute dialysis I have explained to him multiple times that he may need dialysis going forward we will have to see For now we will continue lactated Ringer's for another 24 hours If renal parameters continue to be stable without any signs or symptoms and he continues to want to avoid dialysis then likely we can discharge and follow closely as an outpatient Electronic Signatures: Tiana De León () (Signed 25-Nov-2022 11:27) Authored: Service, Subjective Data, Objective Data, Assessment and Plan, Note Completion Last Updated: 25-Nov-2022 11:27 by Tiana De León (DO) [facility] Laboratory - Chemistry and C hemistry - challengeon 11-25-2022 Albumin BCP dye [Mass/Vol] 2.8 g/dL below low threshold 3.4 - 5.0 AD-Nucvcrk-Jet land Work Phone: ALP [Catalytic activity/Vol] 55 U/L 33 - 136 XB-Olohtgc-Rey land Work Phone: ALT With P-5'-P [Catalytic activity/Vol] 12 U/L 10 - 52 ST-Mlvjpdt-Pkv land Work Phone: Comment on above: Patients treated wit h Sulfasalazine may generate falsely decreased results for ALT. Anion gap [Moles/Vol] 20 mmol/L 10 - 20 MP- Urology-Niall land Work Phone: AST With P-5'-P [Catalytic activity/Vol] 16 U/L 9 - 39 RG-Witoaaz-Rgp land Work Phone: Bilirubin [Mass/Vol] 0.2 mg/dL 0.0 - 1.2 MP-U rology-Niall land Work Phone: Calcium [Mass/Vol] 5.6 mg/dL Critically low 8.6 - 10.3 MP -Urology-[place]iall land Work Phone: Comment on above: BUN,CA CALLED RB TO TESSY SEGURA , 11/25/2022 06:32 Chloride [Moles/Vol] 88 mmol/L below low threshold 98 - 107 QH-Dsxhrlw-Gxk land Work Phone: CO2 [Moles/Vol] 33 mmol/L above high threshold 21 - 32 FH-Jlcxrnd-Zhh land Work Phone: Creatinine [Mass/Vol] 11.48 mg/dL above high threshold See Below VO-Ciplwtq-Bxh land Work Phone: Comment on above: Reference Range: 0.5 0 - 1.30 Glucose [Mass/Vol] 105 mg/dL above high threshold 74 - 99 ES-Troefpr-Brg land Work Phone: Potassium [Moles/Vol] 3.5 mmol/L 3.5 - 5.3 MP- Urology-[place]iall [facility] Work Phone: Protein [Mass/Vol] 5.7 g/dL below low threshold 6.4 - 8.2 KC-Lrtrmfv-Hel land Work Phone: Sodium [Moles/Vol] 137 mmol/L 136 - 145 MP-Uro logy-Niall land Work Phone: Urea nitrogen [Mass/Vol] 155 mg/dL Critically high 6 - 23 LQ-Uwpaubp-Kuc land Work Phone: Comment on above: BUN,CA CALLED RB TO TESSY SEGURA , 11/25/2022 06:32 Laboratory - Hematology and Cell countson 11-25-2022 Erythrocyte distribution width (RBC) [Ratio] 13.4 % See Below QT-Iagbdql-Hwq land Work Phone: Comment on above: Reference Range: 11. 5 - 14.5 Hematocrit (Bld) [Volume fraction] 24.1 % below low threshold See Below ZP-Xeroudn-Nyp land Work Phone: Comment on above: Reference Range: 41. 0 - 52.0 Hemoglobin (Bld) [Mass/Vol] 7.7 g/dL below low threshold See Below ER-Gaplhkp-Caj land Work Phone: Comment on above: Reference Range: 13. 5 - 17.5 MCHC (RBC) [Mass/Vol] 32.0 g/dL See Below MP- Urology-Niall land Work Phone: Comment on above: Reference Range: 32. 0 - 36.0 MCV (RBC) [Entitic vol] 90 fL 80 - 100 HM-Yhvzfrz-Wzf land Work Phone: Platelets (Bld) [#/Vol] 218 10*3/uL 150 - 450 LT-Ojssxrc-Aaz land Work Phone: RBC (Bld) [#/Vol] 2.69 {x10E12/L} below low threshold See Below TW-Njcewjh-Kca land Work Phone: Comment on above: Reference Range: 4.5 0 - 5.90 WBC (Bld) [#/Vol] 6.4 10*3/uL 4.4 - 11.3 MP-Uro logy-Niall land Work Phone: MAGNESIUMon 11-25-2022 Magnesium [Mass/Vol] 1.61 mg/dL Normal 1.60 - 2.40 [facility] Comment on above: Performed By: #### P TINR #### [place] [address] [address] [place] [address] Magnesium, Serumon 3 Magnesium [Mass/Vol] 1.61 mg/dL See Below MP-U rology-Niall land Work Phone: Comment on above: Reference Range: 1.6 0 - 2.40 No Panel Informationon 11-25 4 {mL/min/1.73m2} Abnormal >90 MP-Urol ogy-Niall land Work Phone: Comment on above: CALCULATIONS OF ALEJANDRA MATED GFR ARE PERFORMED USING THE 2020 CKD-EPI STUDY REFIT EQUATION WITHOUT THE RACE VARIABLE FOR THE IDMS-TRACEABLE CREATININE METHODS.https://jasn.asnjournals.org/content/early//A SN.1221309373 PHOSPHORUSon 11-25-2022 Phosphate [Mass/Vol] 7.8 mg/dL High 2.5 - 4.9 [facility] Comment on above: Result Comment: The performance characteristics of phosphorus testing in heparinized plasma have been validated by the individual laboratory site where testing is performed. Testing on heparinized plasma is not approved by the FDA; however, such approval is not necessary. Performed By: #### P HOS ####[facility] [place] [address] Phosphorus, Serumon 11-26-19 23 Phosphate [Mass/Vol] 7.8 mg/dL above high threshold 2.5 - 4.9 ZF-Gojkszq-Jst land Work Phone: Comment on above: The performance herve acteristics of phosphorus testing in heparinized plasma have been validated by the individual laboratory site where testing is performed. Testing on heparinized plasma is not approved by the FDA; however, such approval is not necessary. Rehab Note-individual therap yon 11-25-2022 Rehab Note-individual therapy Rehab: Info: Disciplinephysical inhalation therapy teacher Mode of Treatmentphysical therapy; individual therapy Time IN10:47 Time OUT11:10 Total Treatment [id number] Total Minutes CommentTreatment was performed by MARGARITO Luu and all clinical decision making and treatment was under the direct supervision of Mitzy Payan PT, MPT. Patient in ... at end of sessionchair; alarm on; call light in reach Patient Effortgood Symptoms Noted During/After Treatmentfatigue Patient/Family/Caregiv er Comments/Observationsp atient awake in chair on arrival with nurse present. patient c/o he had some spasms on right hip/side. and c/o spasm during LAQ exercise of RLE. patient states the chair is uncomfortable but did not want PT to get him a different chair so tried ot make him comfortable at end of session. Line and TubesIV; urethral catheter indwelling O2 Deliverynasal cannula; 1L Pre Treatment Patient Positionsitting Pre Treatment Heart Rate (beats/min)82 Pre Treatment SpO2 (%)94 % Pre Treatment Oxygen Deliverysupplemental O2; 1L Post Treatment Patient Positionsitting Post Treatment Heart Rate (beats/min)82 Post Treatment SpO2 (%)96 % Post Treatment Oxygen Deliverysupplemental O2; 1L Vision/Cognition: Affect/Mental Status (Cognitive)WFL Orientation Status (Cognition)oriented x 3 Mobility/Tone: Transfer Assessment/Interventio nsstand to sit transfer; sit to stand transfer Comment, TransfersSTS min A x1 Sit-Stand [place] (Transfers)1 person assist; minimum assist (75% patient effort) Sit-Stand Assistive Device (Transfers)gait belt; walker, front-wheeled Stand-Sit [place] (Transfers)contact guard; verbal cues; 1 person assist; Instruction and cues needed for hand placement with use of AD and for safety with transfers.; minimum assist (75% patient effort) Stand-Sit Assistive Device (Transfers)gait belt; walker, front-wheeled Gait/Stairs Locomotiongait/ambulat ion assistive device; distance ambulated Assistive Device (Gait Training)gait belt; walker, front-wheeled Distance in Feet (Gait Training)24' CGA to Stacy Comment, Gait/Stairs TrainingA little unsteady with FWW, cues to slow down with turning Safety Issues Impacting Function (Mobility)impulsivity; positioning of assistive device; safety precaution awareness Comment, Safety/Impairment (Mobility)patient attempting to stand before belt applied and SPTA ready to have him stand Motor: Lower Extremity (Therapeutic Exercise)seated: Ankle pumps, 4 way ankle (manual resistant, patient compensating with hips during ankle abd/add) , LAQ, Hip ADD/ABD (manual resistance) ISO, HR/TR all 10reps each , each LE Sensory: Comment, Pre/Post Treatment PainPatient reports no pain. He states that he has problems with anxiety. He reports that he has not walked in a while. Health: Observed Emotional Statecooperative; pleasant Plan of Care Reviewed Withpatient Outcomes Tools: Turning from your back to your side while in a flat bed without using bedrails a lot Moving from lying on your back to sitting on the side of a flat bed without using bedrailsa lot Moving to and from bed to chair (including a wheelchair)a little Standing up from a chair using your arms (e.g. wheelchair or bedside chair)a little To walk in hospital rooma little Climbing 3-5 steps with railinga lot AM-PAC (PT) Total Score15 Outcome Summary: Progress: Physical Therapyprogress toward functional goals is gradual Outcome Summary: Physical TherapyPatient was able to complete exercises with no complications. Noted that his abdomen was shifted to the left in sitting and standing which likely contributes to his spasm and being uncomfortable on his right side (chronic). Noted that L Le is weaker compared to the right. Cont strengthening to improve ambulation. Ela Chahal, SPTA. patient reports he has not ambulated at home for a very long time and was able to ambulate today with SPTA/PT in room. patient with good potential for skilled rehab. WDennison, PT, MPT Electronic Signatures: ChahalEla (SPTA) (Signed 25-Nov-2022 11:44) Authored: Info, Vision/Cognition, Mobility/Tone, Motor, Sensory, Outcomes Tools, Outcome Summary Mitzy Payan (PT) (Signed 25-Nov-2022 12:03) Authored: Info, Mobility/Tone, Motor, Health, Outcomes Tools, Outcome Summary Co-Signer: Info, Vision/Cognition, Mobility/Tone, Motor, Sensory, Health, Outcomes Tools, Outcome Summary Last Updated: 25-Nov-2022 12:03 by Mitzy Payan (PT) Normal [facility] STOOL PATHOGEN PCR PANELon 0 11-25-2022 Lab Specimen Source Normal [facility] Comment on above: Performed By: #### P TINR #### [place] [address] Campylobacter sp DNA.diarrheagenic JACK+probe Ql (Stl) Not detected See Below MP-Veudmfd-Rm [employer] Work Phone: Comment on above: Reference Range: NOT DETECTED E. coli stx1 gene JACK+probe Ql (Unsp spec) Not detected See Below [facility] [employer] Work Phone: Comment on above: Reference Range: NOT DETECTED E. coli stx2 gene JACK+probe Ql (Unsp spec) Not detected See Below [facility] [employer] Work Phone: Comment on above: Reference Range: NOT DETECTED Norovirus genogroup I and II RNA JACK+probe Nom (Stl) Not detected See Below [facility] [employer] Work Phone: Comment on above: Reference Range: NOT DETECTED Rotavirus RNA JACK+probe Nom (Stl) Not detected See Below DR-Lohvprx-X [employer] Work Phone: Comment on above: Reference Range: NOT DETECTED The enteric PCR panel is a panel of sensitive and specific amplified nucleic acid tests indicated as an aid in the diagnosis of specific bacterial and viral agents of gastrointestinal illness, in conjunction with other clinical, laboratory, and epidemiological information. This test is not approved for monitoring these infections. Monitoring is available for Salmonella and Shigella infections-request test Stool PCR Follow-Up (STLPF). Monitoring tests are not available at this time for other enteric agents in this panel. Shigella sp DNA JACK+probe Ql (Unsp spec) Not detected See Below MJ-Faijrvq-Tes [employer] Work Phone: Comment on above: Reference Range: NOT DETECTED Vibrio sp DNA JACK+probe Nom (Unsp spec) Not detected See Below NV-Oytpfbo-Sjg [employer] Work Phone: Comment on above: Reference Range: NOT DETECTED Yersinia sp DNA JACK+probe Nom (Unsp spec) Not detected See Below EW-Mfpuwec-Xkm [employer] Work Phone: Comment on above: SOURCE: Reference Ra nge: NOT DETECTED STOOL PATHOGEN PCR PANEL Not detected See Below [facility] [employer] Work Phone: Comment on above: Reference Range: NOT DETECTED BASIC METABOLIC PANELon 11-01 Calcium [Mass/Vol] 5.9 mg/dL Low 8.6 - 10.3 [facility] Comment on above: Order Comment: BUN C ALLED RB TO QUINN HERNANDEZ, 11/24/2022 05:59 Result Comment: Conf irmed by repeat analysis Performed By: #### C BC #### [address] [address] Urea nitrogen [Mass/Vol] 160 mg/dL Critically high 6 - [address] [facility] Comment on above: Order Comment: BUN C ALLED RB TO QUINN HERNANDEZ, 11/24/2022 05:59 Result Comment: BUN CALLED RB TO QUINN HERNANDEZ, 11/24/2022 05:59 Performed By: #### C BC #### [address] [address] Anion gap [Moles/Vol] 19 mmol/L Normal 10 - 20 [facility] Comment on above: Order Comment: BUN C ALLED RB TO QUINN HERNANDEZ, 11/24/2022 05:59 Performed By: #### C BC #### [address] [address] Chloride [Moles/Vol] 87 mmol/L Low 98 - 107 [facility] Comment on above: Order Comment: BUN C ALLED RB TO QUINN BARCLAYT, 11/24/2022 05:59 Performed By: #### C BC #### [address] [address] Creatinine [Mass/Vol] 12.48 mg/dL High 0.50 - 1.30 [facility] Comment on above: Order Comment: BUN C ALLED RB TO QUINN BARCLAYT, 11/24/2022 05:59 Performed By: #### C BC #### [address] [address] GFR/1.73 sq M.predicted among non-blacks MDRD (S/P/Bld) [Vol rate/Area] 4 mL/min/{1.73_m2} Abnormal >[address] [facility] Comment on above: Order Comment: BUN C ALLED RB TO QUINN BARCLAYT, 11/24/2022 05:59 Result Comment: CALC ULATIONS OF ESTIMATED GFR ARE PERFORMED USING THE 2020 CKD-EPI STUDY REFIT EQUATION WITHOUT THE RACE VARIABLE FOR THE IDMS-TRACEABLE CREATININE METHODS. https://jasn.asnjournals.org/content/early/ASN.96471 59287 Performed By: #### C BC #### [address] [address] Glucose [Mass/Vol] 121 mg/dL High 74 - 99 [facility] Comment on above: Order Comment: BUN C ALLED RB TO QUINN BARCLAYT, 11/24/2022 05:59 Performed By: #### C BC #### [address] [address] HCO3 (Bld) [Moles/Vol] 30 mmol/L Normal 21 - 32 [facility] Comment on above: Order Comment: BUN C ALLED RB TO QUINN BARRONUDT, 11/24/2022 05:59 Performed By: #### C BC #### [address] [address] Potassium [Moles/Vol] 3.3 mmol/L Low 3.5 - 5.3 [facility] Comment on above: Order Comment: BUN C ALLED RB TO QUINN BEATRICEUDT, 11/24/2022 05:59 Performed By: #### C BC #### [place] [address] Sodium [Moles/Vol] 133 mmol/L Low 136 - 145 [facility] Comment on above: Order Comment: KARIN DURAN RB TO QUINN HERNANDEZ, 11/24/2022 05:59 Performed By: #### C BC #### [place] [id number] CBCon 11-24-2022 Erythrocyte distribution width (RBC) [Ratio] 13.6 % Normal 11.5 - 14.[address] [facility] Comment on above: Performed By: #### P TINR #### [place] [address] Hematocrit (Bld) [Volume fraction] 23.0 % Low 41.0 - 52.[address] [facility] Comment on above: Performed By: #### P TINR #### [place] [address] Hemoglobin (Bld) [Mass/Vol] 7.6 g/dL Low 13.5 - 17.[address] [facility] Comment on above: Performed By: #### P TINR #### [place] [address] MCHC (RBC) [Mass/Vol] 33.0 g/dL Normal 32.0 - 36.0 [facility] Comment on above: Performed By: #### P TINR #### [place] [id number] MCV (RBC) [Entitic vol] 87 fL Normal 80 - [address] [facility] Comment on above: Performed By: #### P TINR #### [place] [id number] Platelets (Bld) [#/Vol] 230 10*3/uL Normal 150 - [address] [facility] Comment on above: Performed By: #### P TINR #### [place] [address] RBC 2.64 x10E12/L Low 4.50 - 5.[address] [facility] Comment on above: Performed By: #### P TINR #### [place] [address] [place] [address] WBC (Bld) [#/Vol] 9.3 10*3/uL Normal 4.4 - 11.3 [facility] Comment on above: Performed By: #### P TINR #### [address] [address] Daily Progress Note-Medicine on 11-24-2022 Daily Progress Note-Medicine Service: Medicine Subjective Data: GENET BOOTH is a 77 year old Male who is Hospital Day # 5 and POD #1 for 1. Cystoscopy w/Retrogrades BILATERAL, L STENT, BLADDER TISSUE RESECTION; Additional Information: Patient sitting comfortably in chair, reports only mild pain. Afebrile. Objective Data: Objective Information: T PRBPMAPSpO2 [id number] 4% Date/Time11/24 11: 12: 12: 11: 11: 12:00 Range(36.1C - 36.9C ) (74 - 94 ) (15 - 23 ) (99 - 156 )/ (44 - 81 ) (60 - 99 ) (90% - 96% ) As of 24-Nov-2022 07:40:00, patient is on 1 L/min of oxygen via nasal cannula. Highest temp of 36.9 C was recorded at 11/24 4:00 Pain reported at 11/24 7:40: 0 = None Physical Exam by System: Constitutional: awake/alert/oriented x3, not in acute distress, obese Eyes: PERRL, EOMI, clear sclera ENMT: normal hearing, mucous membranes moist, no pharyngeal erythema or exudates Head/Neck: neck supple, no apparent injury, no JVD, no lymphadenopathy, trachea midline Respiratory/Thorax: patent airways, clear to auscultation bilaterally, no crackles or wheezing or rhonchi Cardiovascular: Regular, rate and rhythm, no murmurs, 2+ equal pulses of the extremities Gastrointestinal: Distended from obesity, positive bowel sounds, soft, non-tender, no rebound tenderness or guarding, no masses palpable, no organomegaly Extremities: no edema Neurological: intact senses, motor, response and reflexes, normal strength, babinski negative Psychological: Appropriate mood and behavior Skin: warm, no rashes Medication: Medications: Continuous Medications 1. Lactated Ringers Infusion: 1000 mL IntraVenous Scheduled Medications 1. cefTRIAXone 2 gram/Dextrose 5% IVPB Premixed Soln 50 mL: 50 mL IntraVenous Piggyback Every 24 Hours 2. Famotidine: 20 mg Oral Daily 3. Nystatin 100,000 Units/ gram Topical: 1 application(s) Topical 3 Times a Day PRN Medications 1. Acetaminophen: 650 mg Oral Every 4 Hours 2. Acetaminophen: 650 mg Oral Every 4 Hours 3. Lidocaine 2% (UROJET) Topical Gel: 5 mL Topical Every 4 Hours 4. Ondansetron Injectable: 4 mg IntraVenous Push Every 4 Hours Recent Lab Results: Results: CBC: 11/24/2022 04:08 \ Hgb / \ 7.6 L / WBC Plt 9.3 230 / Hct \ / 23.0 L \ RBC: 2.64 L MCV: 87 BMP: 11/24/2022 04:08 NA+ Cl- BUN / 133 L 87 L 160 HH / Glucose ----- 121 H K+ HCO3- Creat \ 3.3 L 30 12.48 H \ Calcium : 5.9 L Anion Gap : 19 Assessment and Plan: Daily Risk Screen: Does patient have an indwelling urinary catheteryes Plan for indwelling urinary catheter removal todayno The patient continues to require indwelling urinary catheterization for urinary retention/bladder outlet obstruction, acute or chronic Code Status: Code StatusFull Code Assessment: 77-year-old male with a past medical history of Prostate cancer s/p prostatectomy, bladder tumor, urethral stricture, obesity, obstructive sleep apnea, hypertension, left knee chronic pain, hypothyroidism, gout, hyperlipidemia, depression and a questionable poor compliance/adherence with his medications and following up with a family doctor, who presented to the emergency room for a 1 week history of weakness. Patient was found to have sepsis [tachycardia, leukocytosis, lactic acidosis] associated with significant acute kidney injury and metabolic acidosis and secondary to community-acquired pneumonia as well as a possible urinary tract infection. Patient Afebrile and hemodynamically stable. Renal u/s w/b/l hydronephrosis; urology consulted; patient is s/p cystoscopy and R ureteral stent placement on 11/23. Abnormal bladder mucosa, pathology pending BUN/creatinine continues w/slight downtrend; nephro recs appreciated, no need for urgent HD Continue abx as per Dr. Violeta Bustillos: patient supposed to be on aspirin 81 mg daily, allopurinol 100 mg twice a day, amlodipine 5 mg daily, levothyroxine 88 mcg, Flomax 0.8 mg daily, lisinopril 10 mg daily, and oxybutynin 5 mg twice a day. Patient himself said that he is not taking any more of those medications. He decided that he is feeling better. And he stopped seeing a family doctor. His blood pressure is currently within normal limits. Thyroid panel is also grossly normal. Hold off for now. The patient will need to start seeing PCP as outpatient later on. SCDs for DVT prophylaxis Full code Electronic Signatures: Tyrone Merritt) (Signed 24-Nov-2022 12:55) Authored: Service, Subjective Data, Objective Data, Assessment and Plan, Note Completion Last Updated: 24-Nov-2022 12:55 by Tyrone Merritt) [facility] Daily Progress Note-Nephrolo aleida 11-24-2022 Daily Progress Note-Nephrology Service: Nephrology Subjective Data: GENET BOOTH is a 77 year old Male who is Hospital Day # 5 and POD #1 for 1. Cystoscopy w/Retrogrades BILATERAL, L STENT, BLADDER TISSUE RESECTION; Patient seen and examined. He is sitting comfortably in bedside chair Feels well except tired No other complaints. Objective Data: Objective Information: T PRBPMAPSpO2 [id number] 5% Date/Time11/24 7: 8: 8: 7: 7: 8:00 Range(36.1C - 36.9C ) (74 - 94 ) (15 - 23 ) (99 - 156 )/ (44 - 81 ) (60 - 99 ) (90% - 96% ) As of 24-Nov-2022 07:40:00, patient is on 1 L/min of oxygen via nasal cannula. Highest temp of 36.9 C was recorded at 11/24 4:00 Pain reported at 11/24 7:40: 0 = None Physical Exam by System: Constitutional: Awake, alert, oriented, no acute distress Eyes: Extraocular muscles intact ENMT: Moist mucous membranes Head/Neck: Normocephalic, atraumatic Respiratory/Thorax: Bilateral equal breath sounds Cardiovascular: Regular rate and rhythm Gastrointestinal: Soft, nontender, nondistended Genitourinary: Jamison catheter in place Musculoskeletal: Moving all extremities with equal strength Extremities: No peripheral edema Neurological: Awake, alert, oriented Positive slight tremor of bilateral upper extremities Psychological: Calm Skin: Warm and dry Medication: Medications: Continuous Medications 1. Sodium Bicarbonate 150 mEq/ D5W 1000 mL Infusion: 150 mL/hr IntraVenous Scheduled Medications 1. cefTRIAXone 2 gram/Dextrose 5% IVPB Premixed Soln 50 mL: 50 mL IntraVenous Piggyback Every 24 Hours 2. Famotidine: 20 mg Oral Daily 3. Nystatin 100,000 Units/ gram Topical: 1 application(s) Topical 3 Times a Day PRN Medications 1. Acetaminophen: 650 mg Oral Every 4 Hours 2. Acetaminophen: 650 mg Oral Every 4 Hours 3. Lidocaine 2% (UROJET) Topical Gel: 5 mL Topical Every 4 Hours 4. Ondansetron Injectable: 4 mg IntraVenous Push Every 4 Hours Recent Lab Results: Results: CBC: 11/24/2022 04:08 \ Hgb / \ 7.6 L / WBC Plt 9.3 230 / Hct \ / 23.0 L \ RBC: 2.64 L MCV: 87 BMP: 11/24/2022 04:08 NA+ Cl- BUN / 133 L 87 L 160 HH / Glucose ----- 121 H K+ HCO3- Creat \ 3.3 L 30 12.48 H \ Calcium : 5.9 L Anion Gap : 19 Assessment and Plan: Daily Risk Screen: Does patient have an indwelling urinary cathetern/a consulting service Code Status: Code StatusFull Code Assessment: Acute Renal Failure Bilateral hydronephrosis Azotemia without any overt signs of uremia Urinary frequency Ureteral Stricture and Nephrolithiasis History of prostate cancer status post prostatectomy Slight hypokalemia Slight hyponatremia Hyperphosphatemia Plan: S/P Stents placed 11/23 Replace K Stop Bicarb drip Use Lactated ringers Still no need for urgent Dialysis. Renal function improving and has UO so will continue to watch and follow. Electronic Signatures: Tiana De León () (Signed 24-Nov-2022 10:32) Authored: Service, Subjective Data, Objective Data, Assessment and Plan, Note Completion Last Updated: 24-Nov-2022 10:32 by Tiana De León () Normal [facility] Laboratory - Chemistry and C hemistry - challengeon 11-24-2022 Anion gap [Moles/Vol] 19 mmol/L 10 - 20 MP- Urology[employer] Work Phone: Calcium [Mass/Vol] 5.9 mg/dL below low threshold 8.6 - 10.3 PR-Iqxqtzf-Egv land Work Phone: Comment on above: Confirmed by repeat analysis Chloride [Moles/Vol] 87 mmol/L below low threshold 98 - 107 YW-Aehpwju-Tnu land Work Phone: CO2 [Moles/Vol] 30 mmol/L 21 - 32 MP-Urolog y-Niall [employer] Work Phone: Creatinine [Mass/Vol] 12.48 mg/dL above high threshold See Below TX-Agwqeuk-Yuh [employer] Work Phone: Comment on above: Reference Range: 0.5 0 - 1.30 Glucose [Mass/Vol] 121 mg/dL above high threshold 74 - 99 FR-Hzviugn-Nsh land Work Phone: Potassium [Moles/Vol] 3.3 mmol/L below low threshold 3.5 - 5.3 FV-Qcbfoko-Xqh land Work Phone: Sodium [Moles/Vol] 133 mmol/L below low threshold 136 - 145 IA-Mgwykvc-Dsn land Work Phone: Urea nitrogen [Mass/Vol] 160 mg/dL Critically high 6 - 23 PL-Vssyzpf-Bee land Work Phone: Comment on above: BUN CALLED RB TO SHAQ HERNANDEZ, 11/24/2022 05:59 Laboratory - Hematology and Cell countson 11-24-2022 Erythrocyte distribution width (RBC) [Ratio] 13.6 % See Below LI-Cwekmgd-Rkb land Work Phone: Comment on above: Reference Range: 11. 5 - 14.5 Hematocrit (Bld) [Volume fraction] 23.0 % below low threshold See Below WJ-Clhybps-Xll [employer] Work Phone: Comment on above: Reference Range: 41. 0 - 52.0 Hemoglobin (Bld) [Mass/Vol] 7.6 g/dL below low threshold See Below UJ-Urxotgk-Acr land Work Phone: Comment on above: Reference Range: 13. 5 - 17.5 MCHC (RBC) [Mass/Vol] 33.0 g/dL See Below MP- Urology-Niall [employer] Work Phone: Comment on above: Reference Range: 32. 0 - 36.0 MCV (RBC) [Entitic vol] 87 fL 80 - 100 KH-Pbitnsw-Shx land Work Phone: Platelets (Bld) [#/Vol] 230 10*3/uL 150 - 450 CF-Nqrbfje-Odn land Work Phone: RBC (Bld) [#/Vol] 2.64 {x10E12/L} below low threshold See Below JG-Fztarpa-Zkw [employer] Work Phone: Comment on above: Reference Range: 4.5 0 - 5.90 WBC (Bld) [#/Vol] 9.3 10*3/uL 4.4 - 11.3 MP-Uro logy-[employer] Work Phone: No Panel Informationon 11-24 4 {mL/min/1.73m2} Abnormal >90 MP-Urol ogy-[employer] Work Phone: Comment on above: CALCULATIONS OF ALEJANDRA MATED GFR ARE PERFORMED USING THE 2020 CKD-EPI STUDY REFIT EQUATION WITHOUT THE RACE VARIABLE FOR THE IDMS-TRACEABLE CREATININE METHODS.https://jasn.asnjournals.org/content//A SN.9206025368 Rehab Note-individual therap yon 11-24-2022 Rehab Note-individual therapy Rehab: Info: 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 at end of sessionchair; alarm on Patient Effortgood Symptoms Noted During/After TreatmentNausea; fatigue Line and TubesIV; telemetry; urethral catheter indwelling O2 Deliverynasal cannula Pre Treatment Patient Positionsitting Pre Treatment Heart Rate (beats/min)83 Pre Treatment SpO2 (%)95 % Pre Treatment Oxygen Deliverysupplemental O2; 1L Post Treatment Patient Positionsitting Post Treatment Heart Rate (beats/min)86 Post Treatment SpO2 (%)93 % Post Treatment Oxygen Deliverysupplemental O2; 1L Vision/Cognition: Affect/Mental Status (Cognitive)WFL Orientation Status (Cognition)oriented x 3 Motor: Lower Extremity (Therapeutic Exercise)Ankle pumps, 4 way ankle, SAQ, LAQ, Hamstring curls, seated Hip ADD/ABD ISO / HR/TR 10reps each Sensory: Comment, Pre/Post Treatment PainPatient reports no pain. Patient reports that he had a restless night. He stated that he was scared to go to sleep because he was afraid he would not wake up. He c/o nausea during session. Outcomes Tools: Turning from your back to your side while in a flat bed without using bedrails a little Moving from lying on your back to sitting on the side of a flat bed without using bedrailsa lot Moving to and from bed to chair (including a wheelchair)a lot Standing up from a chair using your arms (e.g. wheelchair or bedside chair)a lot To walk in hospital rooma lot Climbing 3-5 steps with railinga lot AM-PAC (PT) Total Score13 Outcome Summary: Progress: Physical Therapyprogress toward functional goals is gradual Outcome Summary: Physical TherapyOnly completed seated exercises secondary to nausea and restless night due to surgery from yesterday (11/23/22). Patient completed exercises with minimal complication. Noted that L LE is weaker than R LE. Cont to strengthening to promote ease with standing ADLs and ambulation. MARGARITO Choudhary. All clinical decision making and treatment directly supervised by Jeannette Khan [employer]ECT [id number] Electronic Signatures: Ela Chahal (SPTA) (Signed 24-Nov-2022 09:51) Entered: Vision/Cognition, Info, Motor, Outcomes Tools, Short Term Goals, Sensory, Outcome Summary Authored: Vision/Cognition, Info, Outcomes Tools, Short Term Goals, Motor, Sensory, Outcome Summary Daily Jiang (PT) (Signed 12-Dec-2022 08:45) Co-Signer: Info, Motor, Sensory, Outcome Summary Jeannette Khan (CONSERVATION [employer] HERITAGE ARCHITECT) (Signed 24-Nov-2022 10:05) Authored: Info, Motor, Sensory, Outcome Summary Last Updated: 12-Dec-2022 08:45 by Daily Jiang (PT) Normal [facility] CBCon 11-23-2022 Erythrocyte distribution width (RBC) [Ratio] 13.7 % Normal 11.5 - 14.[address] [facility] Comment on above: Performed By: #### T [facility] #### [place] [address] Hematocrit (Bld) [Volume fraction] 22.8 % Low 41.0 - 52.[address] [facility] Comment on above: Performed By: #### T RPHS #### [address] [address] Hemoglobin (Bld) [Mass/Vol] 7.5 g/dL Low 13.5 - 17.[address] [facility] Comment on above: Performed By: #### T RPHS #### [address] [address] MCHC (RBC) [Mass/Vol] 32.9 g/dL Normal 32.0 - 36.0 [facility] Comment on above: Performed By: #### T RPHS #### [address] [address] MCV (RBC) [Entitic vol] 87 fL Normal 80 - [address] [facility] Comment on above: Performed By: #### T RPHS #### [address] [address] Platelets (Bld) [#/Vol] 234 10*3/uL Normal 150 - [address] [facility] Comment on above: Performed By: #### T RPHS #### [address] [address] RBC 2.62 x10E12/L Low 4.50 - 5.[address] [facility] Comment on above: Performed By: #### T RPHS #### [address] [address] WBC (Bld) [#/Vol] 8.6 10*3/uL Normal 4.4 - 11.3 [facility] Comment on above: Performed By: #### T RPHS #### [address] [address] COMPREHENSIVE PANELon 2022 Urea nitrogen [Mass/Vol] 183 mg/dL High 6 - [address] [facility] Comment on above: Result Comment: This is a critical result. Per Laboratory policy, critical results for this test only qualify to the call list once per 24 hours. Performed By: #### C MP ####[address] [address] Albumin [Mass/Vol] 3.0 g/dL Low 3.4 - 5.0 [facility] Comment on above: Performed By: #### C MP ####[address] [address] ALP [Catalytic activity/Vol] 54 U/L Normal 33 - [address] [facility] Comment on above: Performed By: #### C MP ####[address] [address] ALT [Catalytic activity/Vol] 9 U/L Low 10 - [address] [facility] Comment on above: Result Comment: Rhea ents treated with Sulfasalazine may generate falsely decreased results for ALT. Performed By: #### C MP ####[address] [address] Anion gap [Moles/Vol] 22 mmol/L High 10 - 20 [facility] Comment on above: Performed By: #### C MP ####[address] [address] AST [Catalytic activity/Vol] 8 U/L Low 9 - [address] [facility] Comment on above: Performed By: #### C MP ####[address] [address] Bilirubin [Mass/Vol] 0.2 mg/dL Normal 0.0 - 1.2 [facility] Comment on above: Performed By: #### C MP ####[address] [address] Calcium [Mass/Vol] 6.0 mg/dL Low 8.6 - 10.3 [facility] Comment on above: Performed By: #### C MP ####[address] [address] Chloride [Moles/Vol] 93 mmol/L Low 98 - 107 [facility] Comment on above: Performed By: #### C MP ####[address] [address] Creatinine [Mass/Vol] 13.46 mg/dL High 0.50 - 1.30 [facility] Comment on above: Performed By: #### C MP ####[address] [address] GFR/1.73 sq M.predicted among non-blacks MDRD (S/P/Bld) [Vol rate/Area] 3 mL/min/{1.73_m2} Abnormal >[address] [facility] Comment on above: Result Comment: CALC ULATIONS OF ESTIMATED GFR ARE PERFORMED USING THE 2020 CKD-EPI STUDY REFIT EQUATION WITHOUT THE RACE VARIABLE FOR THE IDMS-TRACEABLE CREATININE METHODS. https://jasn.asnjournals.org/content/early//ASN.27386 [address] Performed By: #### C MP ####[address] [address] Glucose [Mass/Vol] 157 mg/dL High 74 - 99 [facility] Comment on above: Performed By: #### C MP ####[address] [address] HCO3 (Bld) [Moles/Vol] 21 mmol/L Normal 21 - 32 [facility] Comment on above: Performed By: #### C MP ####[address] [address] Potassium [Moles/Vol] 3.3 mmol/L Low 3.5 - 5.3 [facility] Comment on above: Performed By: #### C MP ####[address] [address] Protein [Mass/Vol] 5.8 g/dL Low 6.4 - 8.2 [facility] Comment on above: Performed By: #### C MP ####[address] [address] Sodium [Moles/Vol] 133 mmol/L Low 136 - 145 [facility] [facility] Comment on above: Performed By: #### C MP ####[address] [address] Cult, Misc + smearon 023 Bacteria identified Cx Nom (Unsp spec) Abnormal NV-Xhunuyc-Sma land Work Phone: Daily Progress Note-Medicine on 11-23-2022 Daily Progress Note-Medicine Service: Medicine Subjective Data: GENET BOOTH is a 77 year old Male who is Hospital Day # 4 and POD #0 for 1. Cystoscopy w/Retrogrades BILATERAL, L STENT, BLADDER TISSUE RESECTION; Additional Information: Patient examined at bedside after return from OR. He reports minimal pain. Objective Data: Objective Information: T PRBPMAPSpO2 [id number] 6% Date/Time11/23 14: 17: 17:: 15: 17:00 Range(36.1C - 36.8C ) (79 - 104 ) (15 - 23 ) (99 - 156 )/ (44 - 78 ) (60 - 99 ) (90% - 98% ) As of 23-Nov-2022 07:30:00, patient is on 1 L/min of oxygen via nasal cannula. Pain reported at 11/23 17:10: sleeping T PRBPMAPSpO2 [id number] 6% Date/Time11/23 14: 17: 17: 15: 15: 17:00 Range(36.1C - 36.8C ) (79 - 104 ) (15 - 23 ) (99 - 156 )/ (44 - 78 ) (60 - 99 ) (90% - 98% ) As of 23-Nov-2022 07:30:00, patient is on 1 L/min of oxygen via nasal cannula. Physical Exam by System: Constitutional: awake/alert/oriented x3, not in acute distress, obese Eyes: PERRL, EOMI, clear sclera ENMT: normal hearing, mucous membranes moist, no pharyngeal erythema or exudates Head/Neck: neck supple, no apparent injury, no JVD, no lymphadenopathy, trachea midline Respiratory/Thorax: patent airways, clear to auscultation bilaterally, no crackles or wheezing or rhonchi Cardiovascular: Regular, rate and rhythm, no murmurs, 2+ equal pulses of the extremities Gastrointestinal: Distended from obesity, positive bowel sounds, soft, non-tender, no rebound tenderness or guarding, no masses palpable, no organomegaly Extremities: no edema Neurological: intact senses, motor, response and reflexes, normal strength, babinski negative Psychological: Appropriate mood and behavior Skin: warm, no rashes Medication: Medications: Continuous Medications 1. Sodium Bicarbonate 150 mEq/ D5W 1000 mL Infusion: 150 mL/hr IntraVenous Scheduled Medications 1. cefTRIAXone 2 gram/Dextrose 5% IVPB Premixed Soln 50 mL: 50 mL IntraVenous Piggyback Every 24 Hours 2. Nystatin 100,000 Units/ gram Topical: 1 application(s) Topical 3 Times a Day PRN Medications 1. Acetaminophen: 650 mg Oral Every 4 Hours 2. Acetaminophen: 650 mg Oral Every 4 Hours 3. Lidocaine 2% (UROJET) Topical Gel: 5 mL Topical Every 4 Hours 4. Ondansetron Injectable: 4 mg IntraVenous Push Every 4 Hours 5. oxyCODONE 5 mg - Acetaminophen 325 m tablet(s) Oral Every 4 Hours Recent Lab Results: Results: CBC: 11/23/2022 04:10 \ Hgb / \ 7.5 L / WBC Plt 8.6 234 / Hct \ / 22.8 L \ RBC: 2.62 L MCV: 87 CMP: 11/23/2022 04:10 NA+ Cl- BUN / 133 L 93 L 183 H / Glucose ----- 157 H K+ HCO3- Creat \ 3.3 L 21 13.46 H \ \ T Bili / \ 0.2 / AST x ---- x ALT 8 Lx ---- x 9 L / Alk P \ / 54 \ Calcium : 6.0 L Anion Gap : 22 H Albumin : 3.0 L T Protein : 5.8 L Assessment and Plan: Daily Risk Screen: Does patient have an indwelling urinary catheteryes Plan for indwelling urinary catheter removal todayno The patient continues to require indwelling urinary catheterization for urinary retention/bladder outlet obstruction, acute or chronic Code Status: Code StatusFull Code Assessment: 77-year-old male with a past medical history of Prostate cancer s/p prostatectomy, bladder tumor, urethral stricture, obesity, obstructive sleep apnea, hypertension, left knee chronic pain, hypothyroidism, gout, hyperlipidemia, depression and a questionable poor compliance/adherence with his medications and following up with a family doctor, who presented to the emergency room for a 1 week history of weakness. Patient was found to have sepsis [tachycardia, leukocytosis, lactic acidosis] associated with significant acute kidney injury and metabolic acidosis and secondary to community-acquired pneumonia as well as a possible urinary tract infection. Patient clinically improving. Leukocytosis resolved, Afebrile and hemodynamically stable. Renal u/s w/b/l hydronephrosis; urology consulted; patient is s/p cystoscopy and R ureteral stent placement today. Abnormal bladder mucosa, pathology pending BUN/creatinine elevated but downtrending; nephro recs appreciated, no need for urgent HD Continue abx as per Dr. Violeta Bustillos: patient supposed to be on aspirin 81 mg daily, allopurinol 100 mg twice a day, amlodipine 5 mg daily, levothyroxine 88 mcg, Flomax 0.8 mg daily, lisinopril 10 mg daily, and oxybutynin 5 mg twice a day. Patient himself said that he is not taking any more of those medications. He decided that he is feeling better. And he stopped seeing a family doctor. His blood pressure is currently within normal limits. Thyroid (more content not included)... Normal [facility] Daily Progress Note-Nephrolo tana 11-23-2022 Daily Progress Note-Nephrology Service: Nephrology Subjective Data: GENET BOOTH is a 77 year old Male who is Hospital Day # 4. Patient seen and examined at the bedside this morning He is resting comfortably in bed No overt pain at this time Had a restless night. Objective Data: Objective Information: T PRBPMAPSpO2 [id number] 6% Date/Time11/23 7: 7: 7: 7: 7: 7:30 Range(36.2C - 36.5C ) (81 - 104 ) (18 - 23 ) (99 - 155 )/ (44 - 78 ) (60 - 95 ) (90% - 98% ) As of 23-Nov-2022 04:00:00, patient is on 1 L/min of oxygen via nasal cannula. Pain reported at 11/23 7:30: 0 = None Physical Exam by System: Constitutional: Awake, alert, oriented, no acute distress Eyes: Extraocular muscles intact ENMT: Moist mucous membranes Head/Neck: Normocephalic, atraumatic Respiratory/Thorax: Bilateral equal breath sounds Cardiovascular: Regular rate and rhythm Gastrointestinal: Soft, nontender, nondistended Genitourinary: Jamison catheter in place Musculoskeletal: Moving all extremities with equal strength Extremities: No peripheral edema Neurological: Awake, alert, oriented Positive slight tremor of bilateral upper extremities Psychological: Calm Skin: Warm and dry Medication: Medications: Continuous Medications 1. Sodium Bicarbonate 150 mEq/ D5W 1000 mL Infusion: 150 mL/hr IntraVenous Scheduled Medications 1. Azithromycin: 500 mg Oral Every 24 Hours 2. cefTRIAXone 2 gram/Dextrose 5% IVPB Premixed Soln 50 mL: 50 mL IntraVenous Piggyback Every 24 Hours 3. Famotidine: 20 mg Oral 2 Times a Day 4. Nystatin 100,000 Units/ gram Topical: 1 application(s) Topical 3 Times a Day PRN Medications 1. Acetaminophen: 650 mg Oral Every 4 Hours 2. Acetaminophen: 650 mg Oral Every 4 Hours 3. Lidocaine 2% (UROJET) Topical Gel: 5 mL Topical Every 4 Hours 4. Ondansetron Injectable: 4 mg IntraVenous Push Every 4 Hours Recent Lab Results: Results: CBC: 11/23/2022 04:10 \ Hgb / \ 7.5 L / WBC Plt 8.6 234 / Hct \ / 22.8 L \ RBC: 2.62 L MCV: 87 CMP: 11/23/2022 04:10 NA+ Cl- BUN / 133 L 93 L 183 H / Glucose ----- 157 H K+ HCO3- Creat \ 3.3 L 21 13.46 H \ \ T Bili / \ 0.2 / AST x ---- x ALT 8 Lx ---- x 9 L / Alk P \ / 54 \ Calcium : 6.0 L Anion Gap : 22 H Albumin : 3.0 L T Protein : 5.8 L Radiology Results: Results: CT Abdomen and Pelvis without Contrast [Nov 22 2022 3:33PM] Assessment and Plan: Daily Risk Screen: Does patient have an indwelling urinary cathetern/a consulting service Comorbidities: ComorbidityOther Code Status: Code StatusFull Code Assessment: Acute renal failure Bilateral hydronephrosis Azotemia without any overt signs of uremia Urinary frequency History of ureteral stricture History of prostate cancer status post prostatectomy Metabolic acidosis Slight hyperkalemia Slight hyponatremia Hyperphosphatemia Plan: Discussed with Dr. Bah. Has a left ureteral stone and has a right ureteral stricture. He will go to the operating room today for cystoscopy with bilateral stent placement At this time his renal parameters are actually stable and in the little bit improved He continues to not show signs of overt uremia We will continue to hold on dialysis however he may need it going forward we will see how he does after stent placement Replace potassium Continue bicarb drip for another 24 hours Electronic Signatures: Tiana De León () (Signed 23-Nov-2022 08:47) Authored: Service, Subjective Data, Objective Data, Assessment and Plan, Note Completion Last Updated: 23-Nov-2022 08:47 by Tiana De León () Normal [facility] Laboratory - Chemistry and C hemistry - challengeon 11-23-2022 Albumin BCP dye [Mass/Vol] 3.0 g/dL below low threshold 3.4 - 5.0 US-Pkzkhew-Poy [facility] Work Phone: ALP [Catalytic activity/Vol] 54 U/L 33 - 136 JW-Rghzisc-Zja land Work Phone: ALT With P-5'-P [Catalytic activity/Vol] 9 U/L below low threshold 10 - 52 IE-Ruarjzl-Fuv land Work Phone: Comment on above: Patients treated wit h Sulfasalazine may generate falsely decreased results for ALT. Anion gap [Moles/Vol] 22 mmol/L above high threshold 10 - 20 GE-Ucxpisd-Rbq land Work Phone: AST With P-5'-P [Catalytic activity/Vol] 8 U/L below low threshold 9 - 39 MQ-Ysqngmw-Afs land Work Phone: Bilirubin [Mass/Vol] 0.2 mg/dL 0.0 - 1.2 MP-U rology-Niall land Work Phone: Calcium [Mass/Vol] 6.0 mg/dL below low threshold 8.6 - 10.3 WV-Vfgjbso-Ekm land Work Phone: Chloride [Moles/Vol] 93 mmol/L below low threshold 98 - 107 MT-Gvjhgom-Mlb land Work Phone: CO2 [Moles/Vol] 21 mmol/L 21 - 32 MP-Urolog y-Niall land Work Phone: Creatinine [Mass/Vol] 13.46 mg/dL above high threshold See Below QE-Slhlvcz-Wao land Work Phone: Comment on above: Reference Range: 0.5 0 - 1.30 Glucose [Mass/Vol] 157 mg/dL above high threshold 74 - 99 GW-Yqiwkop-Dhz land Work Phone: Potassium [Moles/Vol] 3.3 mmol/L below low threshold 3.5 - 5.3 QL-Jfgcnpc-Nqp land Work Phone: Protein [Mass/Vol] 5.8 g/dL below low threshold 6.4 - 8.2 NA-Meokzud-Zum land Work Phone: Sodium [Moles/Vol] 133 mmol/L below low threshold 136 - 145 FB-Vqspqpn-Xoe land Work Phone: Urea nitrogen [Mass/Vol] 183 mg/dL above high threshold 6 - 23 XZ-Risarng-Mgf land Work Phone: Comment on above: This is a critical r esult. Per Laboratory policy, critical results for this test only qualify to the call list once per 24 hours. Laboratory - Hematology and Cell countson 11-23-2022 Erythrocyte distribution width (RBC) [Ratio] 13.7 % See Below US-Pbbwmqb-Jaz land Work Phone: Comment on above: Reference Range: 11. 5 - 14.5 Hematocrit (Bld) [Volume fraction] 22.8 % below low threshold See Below US-Gflvdjo-Wet land Work Phone: Comment on above: Reference Range: 41. 0 - 52.0 Hemoglobin (Bld) [Mass/Vol] 7.5 g/dL below low threshold See Below FU-Riumbfg-Thw land Work Phone: Comment on above: Reference Range: 13. 5 - 17.5 MCHC (RBC) [Mass/Vol] 32.9 g/dL See Below ID [facility] Work Phone: Comment on above: Reference Range: 32. 0 - 36.0 MCV (RBC) [Entitic vol] 87 fL 80 - 100 JM-Pvljiht-Ipe land Work Phone: Platelets (Bld) [#/Vol] 234 10*3/uL 150 - 450 GU-Pggeofz-Dgb land Work Phone: RBC (Bld) [#/Vol] 2.62 {x10E12/L} below low threshold See Below BB-Wrtdiou-Xhc land Work Phone: Comment on above: Reference Range: 4.5 0 - 5.90 WBC (Bld) [#/Vol] 8.6 10*3/uL 4.4 - 11.3 -Uro logy-SayNow Work Phone: MISCELLANEOUS CULT./SM.BACT. on 11-23-2022 MISCELLANEOUS CULT./SM.BACT. PATIENT: GENET BOOTH LOCATION: [address] BILL#: [id number] : 47 AGE: SEX: M ORDERED BY: JOHN BAH SOURCE: WOUND/ABSCESS COLLECTED: 11/23/22 11:43 ANTIBIOTICS AT JUDI.: RECEIVED : 11/23/22 16:48 SITE: R URETERAL FLUID FOR CYTOLOGY AND CULTURE Supplemental Report R E S U L T S GRAM STAIN FINAL 11/23/22 17:32 4+ GRANULOCYTES. NO ORGANISMS SEEN. MISCELLANEOUS CULT./SM.BACT. FINAL 11/28/22 14:40 THIS REPORT CONTAINS ADDITIONAL INFORMATION NOT INCLUDED IN PREVIOUS FINAL REPORT. SUSCEPTIBILITIES TO FOLLOW. ISOLATE1 : Sharan glabrata 3+ The commercial product used to generate susceptibility results for this organism is not FDA approved, but has been validated in this laboratory, and interpretations are based on Clinical Laboratory Standards [place] standard M27-S4 and other sources. Organism C. glabrata Antibiotic GUILLERMO INTRP Amphotericin B =0.5 S Fluconazole =8 S-DD Voriconazole 0.25 Caspofungin =0.06 S Micafungin <=0.008 S Posaconazole =1 S S=SUSCEPTIBLE I=INTERMEDIATE R=RESISTANT SDD=SUSCEPTIBLE DOSE DEPENDENT NS=NONSUSCEPTIBLE X=REPORTED IN ERROR Normal [facility] Comment on above: Performed By: #### Danis CALABRESE #### [address] [address] No Panel Informationon 11-23 GT-Paywpkc-Nzh land Work Phone: Please click on the link to view the study images Normal WY-Qgbalhz-Bfx land Work Phone: AI-Cozbtiu-Wkm land Work Phone: 3 {mL/min/1.73m2} Abnormal >90 MP-Urol ogy-Niall land Work Phone: Comment on above: CALCULATIONS OF ALEJANDRA MATED GFR ARE PERFORMED USING THE 2020 CKD-EPI STUDY REFIT EQUATION WITHOUT THE RACE VARIABLE FOR THE IDMS-TRACEABLE CREATININE METHODS.https://jasn.asnjournals.org/content//A .4962329921 PARATHYROID HORMONE,INTACTon 11-23-2022 PARATHYROID HORMONE,INTACT 313.9 pg/mL High 18.5 - 88.[address] [facility] Comment on above: Performed By: #### Danis CALABRESE #### [address] [address] PHOSPHORUSon 11-23-2022 Phosphate [Mass/Vol] 8.5 mg/dL High 2.5 - 4.9 [facility] Comment on above: Result Comment: The performance characteristics of phosphorus testing in heparinized plasma have been validated by the individual laboratory site where testing is performed. Testing on heparinized plasma is not approved by the FDA; however, such approval is not necessary. Performed By: #### T [facility] #### [address] [address] Phosphorus, Serumon 11-24-19 Phosphate [Mass/Vol] 8.5 mg/dL above high threshold 2.5 - 4.9 OK-Pcwfajs-Mjv land Work Phone: Comment on above: The performance herve acteristics of phosphorus testing in heparinized plasma have been validated by the individual laboratory site where testing is performed. Testing on heparinized plasma is not approved by the FDA; however, such approval is not necessary. Preop Checkliston 11-23-2022 Preop Checklist Preop Checklist: Preop Checklist: Arrival [id number] Arrival Time10:10 Procedure Typecystoscopy Temperature C36.9 degrees C Temperature F98.4 degrees F Heart Rate84 beats per minute Respiratory Rate22 breath per minute Blood Pressure Kwtyaoma68 mm/Hg Blood Pressure Azceckito86 mm/Hg NPOyes Last Food [id number] 22:00 Last Clear Fluid [id number] 22:00 NPO Commentsips water this AM with meds ID Band On Patientpatient ID (name) H&P Completeyes Anesthesia Assessment Completedyes Preop Antibioticsnot ordered HCG Urine Testfoley catheter SCD's Appliednot applicable Denturesnot applicable Prostheticsnot applicable Hearing Aidsnot applicable Valuables Securednot applicable Glasses / Contactsnot applicable Bowel Prepno Cardiovascular Assessment: Apicalregular Radial Pulsespalpable Extremitieswarm Respiratory Assessment: Respirationsunlabored regular Sleep apnea Air Exchangegood, equal Breath Soundsclear, current pneumonia Neurological Assessment: Level of Consciousnessalert, oriented Mobilitymoves all extremities Able to Express Selfyes Age Appropriateyes Emotional Statuscalm Skin Assessment: Skin Site(s) with Current Compromisenone Preop Education: Surgical Site Infection Preventionyes Pain Scales and Managementyes Language / Communication: Language / CommunicationEnglish Electronic Signatures: Jocelyne Ontiveros) (Signed 23-Nov-2022 10:49) Authored: Preop Checklist Last Updated: 23-Nov-2022 10:49 by Jocelyne Ontiveros (KAREN) [facility] Rehab Note-physical therapyo n 11-23-2022 Rehab Note-physical therapy Rehab: Info: 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 Comment on above: Result Comment: This is a corrected result. Previous value was 117, verified at 11/22/2022 17:25 Performed By: #### U AMIC ####[address] [address] SQUAMOUS EPITH. CELLS 11 /HPF Normal [facility] Comment on above: Performed By: #### U AMIC ####[address] [address] WBC [address] /HPF Abnormal 0-[address] [facility] Comment on above: Result Comment: This is a corrected result. Previous value was >182, verified at 11/22/2022 17:25 Performed By: #### U AMIC ####[address] [address] URINALYSIS WITH CULTURE IF I NDICATEDon 11-23-2022 Appearance (U) HAZY Normal CLEAR [facility] Comment on above: Result Comment: This is a corrected result. Previous value was CLOUDY, verified at 11/22/2022 15:23 Performed By: #### U ARFX ####[address] [address] Color (U) YELLOW Normal STRAW,YELLOW [facility] Comment on above: Result Comment: This is a corrected result. Previous value was [place], verified at 11/22/2022 15:23 Performed By: #### U ARFX ####[address] [address] Hemoglobin Ql (U) MODERATE (2+) Abnormal NEGATIVE [facility] Comment on above: Result Comment: This is a corrected result. Previous value was NEGATIVE, verified at 11/22/2022 15:23 Performed By: #### U ARFX ####[address] [address] pH (U) 5.0 [pH] Normal 5.0 - 8.[address] [facility] Comment on above: Result Comment: This is a corrected result. Previous value was 6.0, verified at 11/22/2022 15:23 Performed By: #### U ARFX ####[place] [id number] Protein Ql (U) 100 (2+) Abnormal NEGATIVE [facility] Comment on above: Result Comment: This is a corrected result. Previous value was 30 (1+), verified at 11/22/2022 15:23 Performed By: #### U ARFX ####[place] [id number] Specific gravity (U) [Rel density] 1.010 Normal 1.005 - 1.[address] [facility] Comment on above: Result Comment: This is a corrected result. Previous value was 1.015, verified at 11/22/2022 15:23 Performed By: #### U ARFX ####[place] [id number] CBCon 11-22-2022 Erythrocyte distribution width (RBC) [Ratio] 13.9 % Normal 11.5 - 14.[address] [facility] Comment on above: Performed By: #### C BC ####[place] [id number] Hematocrit (Bld) [Volume fraction] 26.4 % Low 41.0 - 52.[address] [facility] Comment on above: Performed By: #### C BC ####[place] [id number] Hemoglobin (Bld) [Mass/Vol] 8.1 g/dL Low 13.5 - 17.[address] [facility] Comment on above: Performed By: #### C BC ####[address] [address] MCHC (RBC) [Mass/Vol] 30.7 g/dL Low 32.0 - 36.0 [facility] Comment on above: Performed By: #### C BC ####[address] [address] MCV (RBC) [Entitic vol] 92 fL Normal 80 - [address] [facility] Comment on above: Performed By: #### C BC ####[address] [address] Platelets (Bld) [#/Vol] 257 10*3/uL Normal 150 - [address] [facility] Comment on above: Performed By: #### C BC ####[address] [address] RBC 2.87 x10E12/L Low 4.50 - 5.[address] [facility] Comment on above: Performed By: #### C BC ####[address] [address] WBC (Bld) [#/Vol] 7.2 10*3/uL Normal 4.4 - 11.3 [facility] Comment on above: Performed By: #### C BC ####[address] [address] COMPREHENSIVE PANELon 2022 Anion gap [Moles/Vol] 23 mmol/L High 10 - 20 [facility] Comment on above: Order Comment: BUN C ALLED RB TO NAE LUNA, 11/22/2022 06:46 Performed By: #### I GUANAKITO #### [address] [address] Potassium [Moles/Vol] 4.2 mmol/L Normal 3.5 - 5.3 [facility] Comment on above: Order Comment: BUN C ALLED RB TO NAE LUNA, 11/22/2022 06:46 Result Comment: Conf irmed by repeat analysis Performed By: #### I RONT #### [address] [address] Urea nitrogen [Mass/Vol] 202 mg/dL Critically high 6 - [address] [facility] Comment on above: Order Comment: BUN C ALLED RB TO NAE LUNA, 11/22/2022 06:46 Result Comment: BUN CALLED RB TO NAE LUNA, 11/22/2022 06:46 Performed By: #### I RONT #### [address] [address] Albumin [Mass/Vol] 3.3 g/dL Low 3.4 - 5.0 [facility] Comment on above: Order Comment: BUN C ALLED RB TO NAE LUNA, 11/22/2022 06:46 Performed By: #### I RONT #### [address] [address] ALP [Catalytic activity/Vol] 59 U/L Normal 33 - [address] [facility] Comment on above: Order Comment: BUN C ALLED RB TO NAE LUNA, 11/22/2022 06:46 Performed By: #### I RONT #### [address] [address] ALT [Catalytic activity/Vol] 7 U/L Low 10 - [address] [facility] Comment on above: Order Comment: BUN C ALLED RB TO NAE LUNA, 11/22/2022 06:46 Result Comment: Rhea ents treated with Sulfasalazine may generate falsely decreased results for ALT. Performed By: #### I RONT #### [address] [address] AST [Catalytic activity/Vol] 7 U/L Low 9 - [address] [facility] Comment on above: Order Comment: BUN C ALLED RB TO NAE LUNA, 11/22/2022 06:46 Performed By: #### I RONT #### [address] [address] Bilirubin [Mass/Vol] 0.3 mg/dL Normal 0.0 - 1.2 [facility] Comment on above: Order Comment: BUN C ALLED RB TO NAE LUNA, 11/22/2022 06:46 Performed By: #### I RONT #### [address] [address] Calcium [Mass/Vol] 7.1 mg/dL Low 8.6 - 10.3 [facility] Comment on above: Order Comment: BUN C ALLED RB TO NAE LUNA, 11/22/2022 06:46 Performed By: #### I RONT #### [address] [address] Chloride [Moles/Vol] 103 mmol/L Normal 98 - 107 [facility] Comment on above: Order Comment: BUN C ALLED RB TO NAE LUNA, 11/22/2022 06:46 Performed By: #### I ADRIÁNT #### [address] [address] Creatinine [Mass/Vol] 15.08 mg/dL High 0.50 - 1.30 [facility] Comment on above: Order Comment: BUN C ALLED RB TO NAE LUNA, 11/22/2022 06:46 Performed By: #### I ADRIÁNT #### [address] [address] GFR/1.73 sq M.predicted among non-blacks MDRD (S/P/Bld) [Vol rate/Area] 3 mL/min/{1.73_m2} Abnormal >[address] [facility] Comment on above: Order Comment: BUN C ALLED RB TO NAE LUNA, 11/22/2022 06:46 Result Comment: CALC ULATIONS OF ESTIMATED GFR ARE PERFORMED USING THE 2020 CKD-EPI STUDY REFIT EQUATION WITHOUT THE RACE VARIABLE FOR THE IDMS-TRACEABLE CREATININE METHODS. https://jasn.asnjournals.org/content/early//ASN.90551 12256 Performed By: #### I GUANAKITO #### [address] [address] Glucose [Mass/Vol] 136 mg/dL High 74 - 99 [facility] Comment on above: Order Comment: BUN C ALLED RB TO NAE LUNA, 11/22/2022 06:46 Performed By: #### I ADRIÁNT #### [address] [address] HCO3 (Bld) [Moles/Vol] 11 mmol/L Low 21 - 32 [facility] Comment on above: Order Comment: BUN C ALLED RB TO NAE LUNA, 11/22/2022 06:46 Performed By: #### I ADRIÁNT #### [address] [address] Protein [Mass/Vol] 6.4 g/dL Normal 6.4 - 8.2 [facility] Comment on above: Order Comment: BUN C ALLED RB TO NAE LUNA, 11/22/2022 06:46 Performed By: #### I RONT #### [address] [address] Sodium [Moles/Vol] 133 mmol/L Low 136 - 145 [facility] Comment on above: Order Comment: KARIN Twyla DURAN RB TO NAE LUNA, 11/22/2022 06:46 Performed By: #### I RONT #### [address] [address] [address] Abdomen and Pelvis withou t Contraston 11-22-2022 CT Abdomen and Pelvis WO contrast Normal KI-Zmfyhtm-Nsm land Work Phone: Cult, Urineon 11-22-2022 Bacteria identified Cx Nom (U) JE-Wkydvig-Xtv land Work Phone: Daily Progress Note-Medicine on 11-22-2022 Daily Progress Note-Medicine Service: Medicine Subjective Data: GENET BOOTH is a 77 year old Male who is Hospital Day # 3. Additional Information: Patient examined at bedside, no acute complaints. Objective Data: Objective Information: T PRBPMAPSpO2 [id number] 92% Date/Time11/22 15: 15: 15: 15: 15: 15:14 Range(36.1C - 36.9C ) (82 - 104 ) (19 - 25 ) (103 - 173 )/ (52 - 82 ) (73 - 100 ) (92% - 98% ) Highest temp of 36.9 C was recorded at 11/21 11:19 Pain reported at 11/22 16:00: 0 = None T PRBPMAPSpO2 [id number] 92% Date/Time11/22 15: 15: 15: 15: 15: 15:14 Range(36.1C - 36.9C ) (82 - 104 ) (19 - 25 ) (103 - 173 )/ (52 - 82 ) (73 - 100 ) (92% - 98% ) Highest temp of 36.9 C was recorded at 11/21 11:19 Physical Exam by System: Constitutional: awake/alert/oriented x3, not in acute distress, obese Eyes: PERRL, EOMI, clear sclera ENMT: normal hearing, mucous membranes moist, no pharyngeal erythema or exudates Head/Neck: neck supple, no apparent injury, no JVD, no lymphadenopathy, trachea midline Respiratory/Thorax: patent airways, clear to auscultation bilaterally, no crackles or wheezing or rhonchi Cardiovascular: Regular, rate and rhythm, no murmurs, 2+ equal pulses of the extremities Gastrointestinal: Distended from obesity, positive bowel sounds, soft, non-tender, no rebound tenderness or guarding, no masses palpable, no organomegaly Extremities: no edema Neurological: intact senses, motor, response and reflexes, normal strength, babinski negative Psychological: Appropriate mood and behavior Skin: warm, no rashes Medication: Medications: Continuous Medications 1. Sodium Bicarbonate 150 mEq/ D5W 1000 mL Infusion: 150 mL/hr IntraVenous Scheduled Medications 1. Azithromycin: 500 mg Oral Every 24 Hours 2. cefTRIAXone 2 gram/Dextrose 5% IVPB Premixed Soln 50 mL: 50 mL IntraVenous Piggyback Every 24 Hours 3. Nystatin 100,000 Units/ gram Topical: 1 application(s) Topical 3 Times a Day PRN Medications 1. Acetaminophen: 650 mg Oral Every 4 Hours 2. Acetaminophen: 650 mg Oral Every 4 Hours 3. Lidocaine 2% (UROJET) Topical Gel: 5 mL Topical Every 4 Hours 4. Ondansetron Injectable: 4 mg IntraVenous Push Every 4 Hours Recent Lab Results: Results: CBC: 11/22/2022 04:28 \ Hgb / \ 8.1 L / WBC Plt 7.2 257 / Hct \ / 26.4 L \ RBC: 2.87 L MCV: 92 CMP: 11/22/2022 04:27 NA+ Cl- BUN / 133 L 103 202 HH / Glucose ----- 136 H K+ HCO3- Creat \ 4.2 11 L 15.08 H \ \ T Bili / \ 0.3 / AST x ---- x ALT 7 Lx ---- x 7 L / Alk P \ / 59 \ Calcium : 7.1 L Anion Gap : 23 H Albumin : 3.3 L T Protein : 6.4 Radiology Results: Results: Impression: Bilateral hydronephrosis is worsened since the CT of 04/28/2018; there is also debris versus irregular urothelial thickening involving the right renal pelvis through the right ureteropelvic junction, as well as within a calyx in the interpolar region. While this could represent nonspecific blood products or infectious material, foci of urothelial neoplasm could also have this appearance. Dedicated urologic evaluation is recommended for further assessment. Ultrasound Renal Bilateral [Nov 21 2022 3:51PM] Assessment and Plan: Daily Risk Screen: Does patient have an indwelling urinary catheteryes Plan for indwelling urinary catheter removal todayno The patient continues to require indwelling urinary catheterization for critically ill patients who need accurate urinary output measurements Code Status: Code StatusFull Code Assessment: 77-year-old male with a past medical history of Prostate cancer s/p prostatectomy, bladder tumor, urethral stricture, obesity, obstructive sleep apnea, hypertension, left knee chronic pain, hypothyroidism, gout, hyperlipidemia, depression and a questionable poor compliance/adherence with his medications and following up with a family doctor, who presented to the emergency room for a 1 week history of weakness. Patient was found to have sepsis [tachycardia, leukocytosis, lactic acidosis] associated with significant acute kidney injury and metabolic acidosis and secondary to community-acquired pneumonia as well as a possible urinary tract infection. Patient clinically improving. Leukocytosis resolved, Afebrile and hemodynamically stable. BUN/creatinine still significantly elevated. Nephrology input appreciated. Renal u/s w/b/l hydronephrosis; urology consulted by nephro Possible plan for HD pending urology intervention Continue abx as per Dr. Violeta Bustillos: As mentioned on my admission note, I reviewed the patient's charts from 2 years ago. I noticed (more content not included)... Normal [facility] Daily Progress Note-Nephrolo aleida 11-22-2022 Daily Progress Note-Nephrology Service: Nephrology Subjective Data: GENET BOOTH is a 77 year old Male who is Hospital Day # 3. Patient seen and examined at the bedside He is sitting comfortably in the bedside chair No major complaints at this time. Objective Data: Objective Information: T PRBPMAPSpO2 [id number] 8% Date/Time11/22 7: 7: 7: 7: 7: 7:29 Range(36.1C - 36.9C ) (82 - 98 ) (19 - 25 ) (103 - 173 )/ (52 - 82 ) (73 - 100 ) (96% - 98% ) Highest temp of 36.9 C was recorded at 11/21 11:19 Pain reported at 11/22 8:00: 0 = None Physical Exam by System: Constitutional: Awake, alert, oriented, no acute distress Eyes: Extraocular muscles intact ENMT: Moist mucous membranes Head/Neck: Normocephalic, atraumatic Respiratory/Thorax: Bilateral equal breath sounds Cardiovascular: Regular rate and rhythm Gastrointestinal: Soft, nontender, nondistended Musculoskeletal: Moving all extremities with equal strength Extremities: No peripheral edema Neurological: Awake, alert, oriented Positive slight tremor of bilateral upper extremities Psychological: Calm Skin: Warm and dry Medication: Medications: Continuous Medications 1. Sodium Bicarbonate 150 mEq/ D5W 1000 mL Infusion: 150 mL/hr IntraVenous Scheduled Medications 1. Azithromycin: 500 mg Oral Every 24 Hours 2. cefTRIAXone 2 gram/Dextrose 5% IVPB Premixed Soln 50 mL: 50 mL IntraVenous Piggyback Every 24 Hours 3. Nystatin 100,000 Units/ gram Topical: 1 application(s) Topical 3 Times a Day PRN Medications 1. Acetaminophen: 650 mg Oral Every 4 Hours 2. Acetaminophen: 650 mg Oral Every 4 Hours 3. Lidocaine 2% (UROJET) Topical Gel: 5 mL Topical Every 4 Hours 4. Ondansetron Injectable: 4 mg IntraVenous Push Every 4 Hours Recent Lab Results: Results: CBC: 11/22/2022 04:28 \ Hgb / \ 8.1 L / WBC Plt 7.2 257 / Hct \ / 26.4 L \ RBC: 2.87 L MCV: 92 CMP: 11/22/2022 04:27 NA+ Cl- BUN / 133 L 103 202 HH / Glucose ----- 136 H K+ HCO3- Creat \ 4.2 11 L 15.08 H \ \ T Bili / \ 0.3 / AST x ---- x ALT 7 Lx ---- x 7 L / Alk P \ / 59 \ Calcium : 7.1 L Anion Gap : 23 H Albumin : 3.3 L T Protein : 6.4 I have reviewed these laboratory results: Culture, Urine [Drawn 20-Nov-2022 18:29:00]. Radiology Results: Results: No Results have been selected. Please select Results from the Available Results list before marking as Reviewed. Assessment and Plan: Comorbidities: ComorbidityOther Code Status: Code StatusFull Code Assessment: Acute renal failure Bilateral hydronephrosis Azotemia without any overt signs of uremia Urinary frequency History of ureteral stricture History of prostate cancer status post prostatectomy Metabolic acidosis Slight hyperkalemia Slight hyponatremia Hyperphosphatemia Plan: Renal ultrasound shows that he does have bilateral hydro I have discussed with him about a Jamison catheter We will get a CT scan I did call and discussed with Dr. Bah He is likely going to need a cystoscopy At this time he still does not have any symptoms of uremia I did discuss with him that it is quite likely he is going to need dialysis However with his bilateral hydro we will see if a cystoscopy and stents would help Without any symptoms of uremia at this time we will once again hold on dialysis for today and see if urologic intervention will help Electronic Signatures: Tiana De León) (Signed 22-Nov-2022 09:51) Authored: Service, Subjective Data, Objective Data, Assessment and Plan, Note Completion Last Updated: 22-Nov-2022 09:51 by Tiana De León () [facility] - Chemistry and C hemistry - challengeon 11-22-2022 Albumin BCP dye [Mass/Vol] 3.3 g/dL below low threshold 3.4 - 5.0 HX-Jwgviwa-Wcl land Work Phone: ALP [Catalytic activity/Vol] 59 U/L 33 - 136 PK-Ikwqtst-Umq land Work Phone: ALT With P-5'-P [Catalytic activity/Vol] 7 U/L below low threshold 10 - 52 DZ-Asyynwf-Zhz land Work Phone: Comment on above: Patients treated wit h Sulfasalazine may generate falsely decreased results for ALT. Anion gap [Moles/Vol] 23 mmol/L above high threshold 10 - 20 XR-Jzghduk-Oaq land Work Phone: AST With P-5'-P [Catalytic activity/Vol] 7 U/L below low threshold 9 - 39 AU-Wazpigg-Agw land Work Phone: Bilirubin [Mass/Vol] 0.3 mg/dL 0.0 - 1.2 MP-U rology-SayNow Work Phone: Calcium [Mass/Vol] 7.1 mg/dL below low threshold 8.6 - 10.3 OS-Xxaaqui-Rmx land Work Phone: Chloride [Moles/Vol] 103 mmol/L 98 - 107 MP-U rology-[employer] Work Phone: CO2 [Moles/Vol] 11 mmol/L below low threshold 21 - 32 HL-Hzrhqhw-Xlo land Work Phone: Creatinine [Mass/Vol] 15.08 mg/dL above high threshold See Below NW-Eduzhvp-Gbk land Work Phone: Comment on above: Reference Range: 0.5 0 - 1.30 Glucose [Mass/Vol] 136 mg/dL above high threshold 74 - 99 QU-Wnkbxru-Dia land Work Phone: Potassium [Moles/Vol] 4.2 mmol/L 3.5 - 5.3 MP- Urology-[employer] Work Phone: Comment on above: Confirmed by repeat analysis Protein [Mass/Vol] 6.4 g/dL 6.4 - 8.2 MP-Uro logy-[employer] Work Phone: Sodium [Moles/Vol] 133 mmol/L below low threshold 136 - 145 JU-Fmuqfyd-Qce land Work Phone: Urea nitrogen [Mass/Vol] 202 mg/dL Critically high 6 - 23 Followap Work Phone: Comment on above: BUN CALLED RB TO MAURIZIO LUNA, 11/22/2022 06:46 Laboratory - Hematology and Cell countson 11-22-2022 Erythrocyte distribution width (RBC) [Ratio] 13.9 % See Below AL-Gxflcge-Knh land Work Phone: Comment on above: Reference Range: 11. 5 - 14.5 Hematocrit (Bld) [Volume fraction] 26.4 % below low threshold See Below QA-Nyivppt-Kdd land Work Phone: Comment on above: Reference Range: 41. 0 - 52.0 Hemoglobin (Bld) [Mass/Vol] 8.1 g/dL below low threshold See Below TR-Xbhzseh-Dzn land Work Phone: Comment on above: Reference Range: 13. 5 - 17.5 MCHC (RBC) [Mass/Vol] 30.7 g/dL below low threshold See Below JH-Beabsrp-Kmn land Work Phone: Comment on above: Reference Range: 32. 0 - 36.0 MCV (RBC) [Entitic vol] 92 fL 80 - 100 MS-Bsfcyvw-Ram land Work Phone: Platelets (Bld) [#/Vol] 257 10*3/uL 150 - 450 TT-Xohwtro-Blz land Work Phone: RBC (Bld) [#/Vol] 2.87 {x10E12/L} below low threshold See Below CR-Ghtabnf-Zds land Work Phone: Comment on above: Reference Range: 4.5 0 - 5.90 WBC (Bld) [#/Vol] 7.2 10*3/uL 4.4 - 11.3 MP-Uro logy-[employer] Work Phone: No Panel Informationon 11-22 3 {mL/min/1.73m2} Abnormal >90 MP-Urol ogy-Say[employer] Work Phone: Comment on above: CALCULATIONS OF ALEJANDRA MATED GFR ARE PERFORMED USING THE 2020 CKD-EPI STUDY REFIT EQUATION WITHOUT THE RACE VARIABLE FOR THE IDMS-TRACEABLE CREATININE METHODS.https://jasn.asnjournals.org/content/early//A SN.0965505837 Nutrition Therapy-Assessment - MST 3on 11-22-2022 Nutrition Therapy-Assessment - MST 3 Assessment Subjective/Objective: Note Type: Assessment MST 3 Note Authored by: Registered Dietitian Food General Manager Pager Number: DocHalo Nutrition Note: The patient is a 77 year old Male admitted for acute kidney failure. PMH per H&P: Prostate cancer s/p prostatectomy, bladder tumor, urethral stricture, obesity, obstructive sleep apnea, hypertension, left knee chronic pain, hypothyroidism, gout, hyperlipidemia, depression RD consulted due to MST score 3 on admission screening, noting unsure weight loss and eating poorly due to decreased appetite. Attempted to meet with patient at bedside twice; however, unsuccessful due to patient receiving treatment from other care team members. Information included herein is from chart review. There is no recent weight history in chart and patient has not previously been seen by a dietitian. He is on a regular diet. Per rounds, he is likely going to need dialysis. Given increased protein needs that accompany this, conservatively ordering Ensure Plus High Protein once/day and will assess intake of foods and supplement on follow up. Medical Surgical History: Per H&P: prostatectomy Objective Information: Pain reported at 11/22 8:00: 0 = None ---- Intake and Output ----- Mn/Dy/Year TimeIntakeOutputNet Nov 22, 2022 6:00 [id number] Nov 21, 2022 10:00 [id number] Nov 21, 2022 2:00 [id number] The Intake and Output Totals for the last 24 hours are: IntakeOutrehob[facility] m[facility] health care servicesNet [id number] Height/Weight: Height in cm: 177.8 centimeter(s) Weight (kg): 95.1 BMI (kg/m2): 30.082 square meter DBW (kg): 75.3 %DBW: 126 Adjusted BW: 80.3 Weight history/ % weight change: No recent weight history in chart Significant Weight Loss: unknown Recent Lab Results: Results: I have reviewed these laboratory results: Complete Blood Count 22-Nov-2022 04:28:00 ResultValue White Blood Cell Count 7.2 Red Blood Cell Count 2.87 L HGB 8.1 L HCT 26.4 L MCV 92 MCHC 30.7 L PLT 257 RDW-CV 13.9 Comprehensive Metabolic Panel 22-Nov-2022 04:27:00 ResultValue Lab Comment: BUN CALLED RB TO NAE LUNA, 11/22/2022 06:46 Glucose, Serum 136 H NA 133 L K 4.2 CL 103 Bicarbonate, Serum 11 L Anion Gap, Serum 23 H BUN 202 HH CREAT 15.08 H GFR Male 3 A Calcium, Serum 7.1 L ALB 3.3 L ALKP 59 T Pro 6.4 T Bili 0.3 Alanine Aminotransferase, Serum 7 L Aspartate Transaminase, Serum 7 L Phosphorus, Serum 22-Nov-2022 04:27:00 ResultValue Phosphorus, Serum 9.1 H Basic Metabolic Panel 21-Nov-2022 04:35:00 ResultValue Glucose, Serum 98 NA 132 L K 5.7 H CL 106 Bicarbonate, Serum 7 L Anion Gap, Serum 25 H BUN 199 H CREAT 14.93 H GFR Male 3 A Calcium, Serum 7.7 L Current Active Medications/PN: Acetaminophen, Tablet (TYLENOL) DOSE = 650 mg Oral Every 4 Hours, PRN Pain - Mild (1-3), 20-Nov-2022 Acetaminophen, Tablet (TYLENOL) DOSE = 650 mg Oral Every 4 Hours, PRN Temp Greater Than or Equal to 38.0 C, 20-Nov-2022 Ondansetron Injectable, (ZOFRAN) DOSE = 4 mg IntraVenous Push Every 4 Hours, PRN Nausea and/or Vomiting, 20-Nov-2022 Azithromycin, Tablet (ZITHROMAX) DOSE = 500 mg Oral Every 24 Hours, 21-Nov-2022 cefTRIAXone 2 gram/Dextrose 5% IVPB Premixed Soln 50 mL, (ROCEPHIN) Every 24 Hours Recommended Infusion Time: 30 minute(s), 21-Nov-2022 Nystatin 100,000 Units/ gram Topical, Powder (MYCOSTATIN, NYSTOP, PEDI-DRI) DOSE = 1 application(s) Topical 3 Times a Day Apply to Groin, 21-Nov-2022 Lidocaine 2% (UROJET) Topical Gel, DOSE = 5 mL Topical Every 4 Hours, PRN for pain with urinary catheterization Apply to Urethra, 22-Nov-2022 Sodium Bicarbonate 150 mEq/ D5W 1000 mL Infusion, Solution IntraVenous Admin Rate = 150 mL/hr Notes from Pharmacy: DOSE Rate = 150 mL/hr Standard Concentration, 21-Nov-2022 Nutrition Orders: Diet, Regular, 20-Nov-2022 Food/Nutrition Related History: Energy Intake: unable to assess, though eating poorly indicated in MST score Food Allergies Comment: NKFA Nutritional Supplements: multivitamin per order reconciliation of meds prior to admission Nutrition Focused Physical Findings: Physical Findings: deferred unable to physically meet with patient. Will assess as appropriate upon follow up Estimated Needs: kcals/day: [id number] Predictive Equation Used: kcals/kg; 30-35; using adjusted body weight gms protein/day: 95-162 Weight Used: actual body wt; 1-1.7 gm/kg/day mL fluid/day: per provider Nutrition Diagnosis: Diagnosis1 new. Dx: Increased nutrient needs. related to anticipated start of dialysis. as evidenced by protein needs 1-1.7 gm/kg/day and energy needs 30-35 kcal/kg/day (x adjusted body weight). Nutrition Interventions: Individualized Nutrition Prescription Provided for: diet Ordered Supplements: Ensure Plus High Protein once/day (provides 20 gm protein) Coordination of Care with: interdisciplinary (more content not included)... Normal [facility] OT Evaluation v2-individual therapyon 11-22-2022 OT Evaluation v2-individual therapy Rehab: Info: Mode of Treatmentoccupational therapy; individual therapy Time IN10:23 Time OUT10:52 Total Treatment [id number] Patient in ... at end of sessionchair; alarm on Communicated with ... at end of sessioncoordinated with Rn() and PUBLIC ADMINISTRATION TEACHER regarding pt agreeable to recommendation for possible need for rehab placement prior to going home Evaluation Not Performedpatient unavailable for evaluation Patient Effortadequate Symptoms Noted During/After Treatmentshortness of breath; fatigue; Patient had increased HR, fatigue, and shortness of breath post OT eval after sustained functional mobility/transfer. Patient Profile Reviewedyes Onset of Illness/Injury or Date of [id number] Reason for Referralkidney failure Referring PhysicianAl Darcy Patient/Family/Caregiv er Comments/ObservationsP zabrina is a 77 yo male who presented to ER on 11/20/22 secondary to worsenening shortness of breath and fatigue over that last 3-4days but indicates he has had a steady decline over the last month. He reports not driving or leaving the home for approx 2 months. He reports he no longer uses the upstairs to his 2 story home as too difficult to use stairs. he reports limited ADl/IADL task participation with steady decline over last month. He did report not consistently seeing a doctor when he started to note his decline. he does report anxiousness does impact his abilities at time. General Observations of Patientpresented reclined in recliner with LUE IV forearm/wrist; pur-wick; telemetry Pertinent History of Current Functional Problemincludes pneumonia; CHLOÉ; L knee pain; gout; Hand Dominanceright Hearing Precautions/Limitation sWFL Precautions/Limitation sfall precautions Developmental Statusindependent, age appropriate Ambulation Skills - Previous Level of Functionuses cane out of doors but no mobility device in home more so used furniture for support Transfer Skills - Previous Level of Functionlives alone; independent transfers but reports he mainly in last week and over last month had been having increasingly more difficulty with transfers as well as no longer doing stairs as too difficult per pt report Living Arrangements2 story home but pt reports residing on main level that has full bathroom as no longer doing upstairs steps Lives Withalone Home Accessibility5 steps with BHR to enter the home tub/shower (no grab bars) Type of Equipment Currently In the Homeuses a cane with community ambulation; straight cane Pre Treatment Patient Positionsitting Pre Treatment Heart Rate (beats/min)96 Pre Treatment Oxygen Deliveryroom air Post Treatment Patient Positionsupine Post Treatment Heart Rate (beats/min)101 Post Treatment SpO2 (%)97 % Post Treatment Oxygen Deliveryroom air Vision/Cognition: Affect/Mental Status (Cognitive)anxious; WNL Orientation Status (Cognition)oriented x 4 ROM: Upper Extremity: Range of Motionleft upper extremity ROM WFL; right upper extremity ROM WFL; he does indicate doing less LUE AROM secondary to IVs in his forearm/wrist MMT: Upper Extremity: Manual Muscle Testing (MMT)right shoulder flexion 4-/5 left shoulder flexion 3+/5 right shoulder abduction 4-/5 left shoulder abduction 3+/5 right elbow flex/ext 4-/5 left elbow flex/ext 4-/5 Mobility/Tone: Bed Mobility Assessment/Interventio nspt was min A for scooting hips in bed as pt lacks sustained BUE support to self shift. He was able to complete CGA from EOB to supine but does hold his breath when doing this transfer. Transfer Assessment/Interventio nsPatient was minimal assistance for sit to stand with use of gait belt from recliner to stand with OT having to coordinate all cords/IV attached to pt. Comment, Gait/Stairs TrainingHe ambulated 11ft from recliner with FWW to EOB with use of gait belt and short step strides and forward flex posture/rounded shoulders. He does demo reduced step control with use of FWW device. Safety Issues Impacting Function (Mobility)positioning of assistive device; awareness of need for assistance Impairments Impacting Function (Mobility)balance; shortness of breath; strength ADL: BADL Assessment/Interventio nlower body dressing [place] Level (Lower Body Dressing)minimum assist (75% patient effort) Sensory: Pre-Treatment Pain Rating0/10 - no pain Post-Treatment Pain Rating0/10 - no pain Sensory General Assessmenthe does report neuropathy in bilateral LE's Health: Observed Emotional Stateanxious; cooperative Verbalized Emotional Stateanxiety; sadness Plan of Care Reviewed Withpatient Impression: Criteria for Skilled Therapeutic Interventions Met (OT Eval)yes; treatment indicated OT Diagnosisacute kidney failure Occupational Therapy Prognosisgood Functional Level at Time of Evaluation (OT Eval)Pt is needing minimal assistance for transfers and functional mobility. Pt does have limited task endurance as evidenced by (more content not included)... Normal [facility] PHOSPHORUSon 11-22-2022 Phosphate [Mass/Vol] 9.1 mg/dL High 2.5 - 4.9 [facility] Comment on above: Result Comment: The performance characteristics of phosphorus testing in heparinized plasma have been validated by the individual laboratory site where testing is performed. Testing on heparinized plasma is not approved by the FDA; however, such approval is not necessary. Performed By: #### I GUANAKITO #### [id number] [place] [address] PT Evaluation v2-individual therapyon 11-22-2022 PT Evaluation v2-individual therapy Rehab: Info: Mode of Treatmentindividual therapy; physical therapy Time IN09:45 Time OUT10:03 Total Treatment [id number] Patient in ... at end of sessionreclined in recliner Communicated with ... at end of sessioncharge nurse Patient Effortgood Symptoms Noted During/After Treatmentfatigue; dizziness; felt mildly light headed with 3' stdg with gait Patient Profile Reviewedyes Onset of Illness/Injury or Date of [id number] Reason for Referralkidney failure Referring PhysicianAl Darcy General Observations of Patientpresented reclined in recliner with LUE IV; pur-wick; telemetry Pertinent History of Current Functional Problemincludes pneumonia; CHLOÉ; L knee pain; gout; Hearing Precautions/Limitation sWFL Developmental Statusindependent, age appropriate Ambulation Skills - Previous Level of Functionuses cane out of doors Transfer Skills - Previous Level of Functionlives alone; independent transfers Living Arrangements2 story home Lives Withalone Home Accessibility5 steps with BHR to enter the home Type of Equipment Currently In the Homeuses a cane with community ambulation Pre Treatment Heart Rate (beats/min)90 Pre Treatment SpO2 (%)98 % Pre Treatment Oxygen Deliveryroom air Post Treatment Heart Rate (beats/min)97 Post Treatment SpO2 (%)98 % Post Treatment Oxygen Deliveryroom air Vision/Cognition: Affect/Mental Status (Cognitive)WFL Orientation Status (Cognition)oriented to; person; situation ROM: Upper Extremity: Range of MotionBUE gross AROM WFL Lower Extremity: Range of MotionBLE gross AROM WFL MMT: Upper Extremity: Manual Muscle Testing (MMT)BUE gross gr4- Lower Extremity: Manual Muscle Testing (MMT)BLE gross gr4- Mobility/Tone: Comment, Transfersmod x2 STS with FWW Comment, Gait/Stairs Trainingmod x1 with FWW fwd/bkwd 3ft Sensory: Pre-Treatment Pain Rating4/10 Post-Treatment Pain Rating0/10 - no pain Comment, Pre/Post Treatment Painabdominal area Impression: Criteria for Skilled Therapeutic Interventions Met (PT Eval)yes; treatment indicated PT Diagnosisimpaired mobility System Pathology/Pathophysiol ogy Noted (PT Eval)musculoskeletal Impairments Found (PT Eval)gait, locomotion, and balance; muscle performance Functional Limitations in Following Categoriesmobility/gai t; stairs Assessment (PT Eval)this patient is apprehensive; responds well to encouragement; became light-headed with stdg/gait but gave good effort Rehab Potential (PT Eval)good, to achieve stated therapy goals Therapy Frequency (PT Eval)daily Predicted Duration of Therapy Intervention7 days Expected Duration Therapy [id number] minutes Planned Therapy Interventions (PT Eval)bed mobility training; balance training; gait training; patient/family education; stair training; strengthening; transfer training Outcomes Tools: Turning from your back to your side while in a flat bed without using bedrails a lot Moving from lying on your back to sitting on the side of a flat bed without using bedrailsa lot Moving to and from bed to chair (including a wheelchair)a lot Standing up from a chair using your arms (e.g. wheelchair or bedside chair)a little To walk in hospital rooma little Climbing 3-5 steps with railingtotal AM-PAC (PT) Total Score13 Short Term Goals: Bed Mobility: Date [id number] Bed Mobility: [place] Level Goalindependent Bed Mobility: Physical Assist Level Goalset-up Bed Mobility: Time Frame for Goal1 wk Transfer: Established Transfer: Transfer Type Goalall transfers Transfer: [place] Level Goalmodified independent Transfer: Physical Assist Level Goalset-up Transfer: Assistive Device Goalrolling walker Transfer: Time Frame for Goal1 wk Gait: Established Gait: [place] Level Goalminimum assist (75% patients effort) Gait: Physical Assist Levelset-up; 1-person assist Gait: Assistive Device Goalrolling walker Gait: Distance [id number] Gait: Time Frame for Goal1 wk Stair: Established Stair: [place] Level Goalmoderate assist (50% patients effort) Stair: Physical Assist Levelset-up; 1-person assist Stair: Training Goal Detailsx5 steps with BHR Stair: Time Frame for Goal1 wk Education: Learnerpatient Barriers to Learningno barrier Methoddemonstration; verbal Topicrehab plan of care DC Recommendations: Discharge Recommendationthis patient will need a moderate level of PT intervention upon D/C Electronic Signatures: Raf Marquez (PT) (Signed 22-Nov-2022 10:22) Authored: Info, Vision/Cognition, ROM, MMT, Mobility/Tone, Sensory, Impression, Outcomes Tools, Short Term Goals, Education, DC Recommendations Last Updated: 22-Nov-2022 10:22 by Raf Marquez (PT) [facility] Parathormone Intact, Serumon 11-22-2022 Parathyrin.intact [Mass/Vol] 313.9 pg/mL above high threshold See Below IM-Jseotpd-MniHere@ [employer] Work Phone: Comment on above: Reference Range: 18. 5 - 88.0 Phosphorus, Serumon 11-23-19 Phosphate [Mass/Vol] 9.1 mg/dL above high threshold 2.5 - 4.9 QC-Aobgrdq-PzvHere@ [employer] Work Phone: Comment on above: The performance herve acteristics of phosphorus testing in heparinized plasma have been validated by the individual laboratory site where testing is performed. Testing on heparinized plasma is not approved by the FDA; however, such approval is not necessary. UA MICROSCOPICon 11-22-2022 WBC CLUMPS MANY Normal [facility] Comment on above: Performed By: #### U AMIC ####[place] [address] BACTERIA 2+ /HPF Abnormal [facility] Comment on above: Performed By: #### U AMIC ####[place] [address] Lab Specimen Source Normal [facility] Comment on above: Performed By: #### U AMIC ####[place] [address] Performed By: #### U ARFX ####[place] [address] URINALYSIS WITH CULTURE IF I NDICATEDon 11-22-2022 Bilirubin Ql (U) Negative Normal NEGATIVE [facility] Comment on above: Performed By: #### U ARFX ####[address] [address] Glucose Ql (U) Negative Normal NEGATIVE [facility] Comment on above: Performed By: #### U ARFX ####[address] [address] Ketones Ql (U) Negative Normal NEGATIVE [facility] Comment on above: Performed By: #### U ARFX ####[place] [id number] Leukocyte esterase Test strip Ql (U) MODERATE (2+) Abnormal NEGATIVE [facility] Comment on above: Performed By: #### U ARFX ####[place] [id number] Nitrite Ql (U) Negative Normal NEGATIVE [facility] Comment on above: Performed By: #### U ARFX ####[address] [address] Urobilinogen (U) [Mass/Vol] mg/dL Normal 0.0 - 1.[address] [facility] Comment on above: Performed By: #### U ARFX ####[address] [address] Color (U) YELLOW See Below [employer] Work Phone: Comment on above: SOURCE: Reference Ra nge: STRAW,YELLOWThis is a corrected result. Previous value was [place], verified at 11/22/2022 15:23 Glucose Ql (U) Negative NEGATIVE [employer] Work Phone: Ketones Ql (U) Negative NEGATIVE [employer] Work Phone: Leukocyte esterase Test strip Ql (U) MODERATE (2+) Abnormal NEGATIVE [employer] Work Phone: pH (U) 5.0 [pH] 5.0 - 8.0 NU-[place]-NdfHere@ [employer] Work Phone: Comment on above: This is a corrected result. Previous value was 6.0, verified at 11/22/2022 15:23 Protein (U) [Mass/Vol] 100 (2+) Abnormal NEGATIVE [employer] Work Phone: Comment on above: This is a corrected result. Previous value was 30 (1+), verified at 11/22/2022 15:23 RBC (U) [#/Vol] MODERATE (2+) Abnormal NEGATIVE MP-Uro logy-[employer] Work Phone: Comment on above: This is a corrected result. Previous value was NEGATIVE, verified at 11/22/2022 15:23 Specific gravity (U) [Rel density] 1.010 1 See Below EQ-Ckebnrd-Xdx land Work Phone: Comment on above: Reference Range: 1.0 05 - 1.035This is a corrected result. Previous value was 1.015, verified at 11/22/2022 15:23 URINALYSIS WITH CULTURE IF INDICATED Negative NEGATIVE [employer] Work Phone: URINALYSIS WITH CULTURE IF INDICATED <2.0 0.0 - 1.9 [facility]-Urology- [employer] Work Phone: URINALYSIS WITH CULTURE IF INDICATED HAZY CLEAR [employer] Work Phone: Comment on above: This is a corrected result. Previous value was CLOUDY, verified at 11/22/2022 15:23 URINE CULTURE,BACTERIALon URINE CULTURE,BACTERIAL PATIENT: GENET BOOTH LOCATION: [facility]#: [id number] : 47 AGE: SEX: M ORDERED BY: TIANA DE LEÓN SOURCE: URINE COLLECTED: 11/22/22 11:39 ANTIBIOTICS AT JUDI.: RECEIVED : 11/23/22 00:47 SITE: R E S U L T S URINE CULTURE,BACTERIAL FINAL 11/24/22 08:14 NO GROWTH Normal [facility] Comment on above: Performed By: #### C BC #### [facility] [address] [place] [address] Urinalysis, Microscopicon Urinalysis, Microscopic 1+ FS-Sclxsei-Oei land Work Phone: Urinalysis, Microscopic 2+ Abnormal RI-Fbgjzjg-Joc land Work Phone: Urinalysis, Microscopic 11 {/HPF} HL-Orsmroi-Kbt land Work Phone: Urinalysis, Microscopic 1139 {/HPF} Abnormal 0-5 PS-Hcvzjwi-Hsz [employer] Work Phone: Comment on above: This is a corrected result. Previous value was 117, verified at 11/22/2022 17:25 Urinalysis, Microscopic MANY DZ-Sjlpqkv-Mih [employer] Work Phone: Urinalysis, Microscopic [address] {/HPF} Abnormal 0-5 MB-Nfhdebj-Lgu [employer] Work Phone: Comment on above: SOURCE: This is a co rrected result. Previous value was >182, verified at 11/22/2022 17:25 BASIC METABOLIC PANELon 11-01 Urea nitrogen [Mass/Vol] 199 mg/dL High 6 - [address] [facility] Comment on above: Result Comment: This is a critical result. Per Laboratory policy, critical results for this test only qualify to the call list once per 24 hours. Performed By: #### C BC #### [address] [address] Anion gap [Moles/Vol] 25 mmol/L High 10 - 20 [facility] Comment on above: Performed By: #### C BC #### [address] [address] Calcium [Mass/Vol] 7.7 mg/dL Low 8.6 - 10.3 [facility] Comment on above: Performed By: #### C BC #### [address] [address] Chloride [Moles/Vol] 106 mmol/L Normal 98 - 107 [facility] Comment on above: Performed By: #### C BC #### [address] [address] Creatinine [Mass/Vol] 14.93 mg/dL High 0.50 - 1.30 [facility] Comment on above: Performed By: #### C BC #### [address] [address] GFR/1.73 sq M.predicted among non-blacks MDRD (S/P/Bld) [Vol rate/Area] 3 mL/min/{1.73_m2} Abnormal >[address] [facility] Comment on above: Result Comment: CALC ULATIONS OF ESTIMATED GFR ARE PERFORMED USING THE 2020 CKD-EPI STUDY REFIT EQUATION WITHOUT THE RACE VARIABLE FOR THE IDMS-TRACEABLE CREATININE METHODS. https://jasn.asnjournals.org/content/early/ASN.27827 [address] Performed By: #### C BC #### [address] [address] Glucose [Mass/Vol] 98 mg/dL Normal 74 - 99 [facility] Comment on above: Performed By: #### C BC #### [address] [address] HCO3 (Bld) [Moles/Vol] 7 mmol/L Low 21 - 32 [facility] Comment on above: Result Comment: This is a critical result. Per Laboratory policy, critical results for this test only qualify to the call list once per 24 hours. Performed By: #### C BC #### [address] [address] Potassium [Moles/Vol] 5.7 mmol/L High 3.5 - 5.3 [facility] Comment on above: Performed By: #### C BC #### [address] [address] Sodium [Moles/Vol] 132 mmol/L Low 136 - 145 [facility] Comment on above: Performed By: #### C BC #### [address] [address] CBC AND DIFFERENTIALon 11-21 % AUTOMATED IMMATURE GRAN 0.5 % Normal 0.0 - 0.[address] [facility] Comment on above: Result Comment: Lubna ture Granulocyte Count (IG) includes promyelocytes, myelocytes and metamyelocytes but does not include bands. Percent differential counts (%) should be interpreted in the context of the absolute cell counts (cells/L). Performed By: #### C BC #### [address] [address] Basophils (Bld) [#/Vol] 0.06 10*3/uL Normal 0.00 - 0.[address] [facility] Comment on above: Performed By: #### C BC #### [address] [address] Basophils/100 WBC (Bld) 0.5 % Normal 0.0 - 2.[address] [facility] Comment on above: Performed By: #### C BC #### [address] [address] Eosinophils (Bld) [#/Vol] 0.23 10*3/uL Normal 0.00 - 0.[address] [facility] Comment on above: Performed By: #### C BC #### [address] [address] Eosinophils/100 WBC (Bld) 2.0 % Normal 0.0 - 6.[address] [facility] Comment on above: Performed By: #### C BC #### [address] [address] Erythrocyte distribution width (RBC) [Ratio] 13.8 % Normal 11.5 - 14.[address] [facility] Comment on above: Performed By: #### C BC #### [address] [address] Hematocrit (Bld) [Volume fraction] 29.8 % Low 41.0 - 52.[address] [facility] Comment on above: Performed By: #### C BC #### [address] [address] Hemoglobin (Bld) [Mass/Vol] 9.2 g/dL Low 13.5 - 17.[address] [facility] Comment on above: Performed By: #### C BC #### [address] [address] Lymphocytes (Bld) [#/Vol] 0.97 10*3/uL Normal 0.80 - 3.[address] [facility] Comment on above: Performed By: #### C BC #### [address] [address] Lymphocytes/100 WBC (Bld) 8.6 % Normal 13.0 - 44.[address] [facility] Comment on above: Performed By: #### C BC #### [address] [address] MCHC (RBC) [Mass/Vol] 30.9 g/dL Low 32.0 - 36.0 [facility] Comment on above: Performed By: #### C BC #### [address] [address] MCV (RBC) [Entitic vol] 92 fL Normal 80 - [address] [facility] Comment on above: Performed By: #### C BC #### [address] [address] Monocytes (Bld) [#/Vol] 1.02 10*3/uL High 0.05 - 0.[address] [facility] Comment on above: Performed By: #### C BC #### [address] [address] Monocytes/100 WBC (Bld) 9.1 % Normal 2.0 - 10.[address] [facility] Comment on above: Performed By: #### C BC #### [address] [address] Neutrophils (Bld) [#/Vol] 8.88 10*3/uL High 1.60 - 5.[address] [facility] Comment on above: Result Comment: Perc ent differential counts (%) should be interpreted in the context of the absolute cell counts (cells/L). Performed By: #### C BC #### [address] [address] Neutrophils/100 WBC (Bld) 79.3 % Normal 40.0 - 80.[address] [facility] Comment on above: Performed By: #### C BC #### [address] [address] Platelets (Bld) [#/Vol] 322 10*3/uL Normal 150 - [address] [facility] Comment on above: Performed By: #### C BC #### [address] [address] RBC 3.23 x10E12/L Low 4.50 - 5.[address] [facility] Comment on above: Performed By: #### C BC #### [address] [address] WBC (Bld) [#/Vol] 11.2 10*3/uL Normal 4.4 - 11.3 [facility] Comment on above: Performed By: #### C BC #### [address] [address] Complete Blood Count + Diffe rentialon 11-21-2022 Basophils/100 WBC (Bld) 0.5 % 0.0 - 2.0 SH-Hjdxsek-Ftmrubberit Work Phone: Erythrocyte distribution width (RBC) [Ratio] 13.8 % See Below [employer] Work Phone: Comment on above: Reference Range: 11. 5 - 14.5 Hematocrit (Bld) [Volume fraction] 29.8 % below low threshold See Below XA-Stqndtd-Auwrubberit Work Phone: Comment on above: Reference Range: 41. 0 - 52.0 Hemoglobin (Bld) [Mass/Vol] 9.2 g/dL below low threshold See Below UE-Rjuqlsh-Xxu land Work Phone: Comment on above: Reference Range: 13. 5 - 17.5 Lymphocytes/100 WBC (Bld) 8.6 % See Below KP-Rmudbwp-Zjj land Work Phone: Comment on above: Reference Range: 13. 0 - 44.0 MCHC (RBC) [Mass/Vol] 30.9 g/dL below low threshold See Below WL-Bumtxwk-Asm land Work Phone: Comment on above: Reference Range: 32. 0 - 36.0 MCV (RBC) [Entitic vol] 92 fL 80 - 100 VY-Hibcwcd-Bre land Work Phone: Monocytes/100 WBC (Bld) 9.1 % 2.0 - 10.0 CB-Ohfrkjx-Bof land Work Phone: Neutrophils/100 WBC (Bld) 79.3 % See Below AV-Sptfnzw-Ajr [employer] Work Phone: Comment on above: Reference Range: 40. 0 - 80.0 Platelets (Bld) [#/Vol] 322 10*3/uL 150 - 450 YJ-Xralfgh-Sih land Work Phone: RBC (Bld) [#/Vol] 3.23 {x10E12/L} below low threshold See Below VS-Jgmello-Yny land Work Phone: Comment on above: Reference Range: 4.5 0 - 5.90 WBC (Bld) [#/Vol] 11.2 10*3/uL 4.4 - 11.3 - ologyPllop.it Work Phone: Complete Blood Count + Differential 0.06 {x10E9/L} See Below FU-Snpfpqj-Xwx land Work Phone: Comment on above: Reference Range: 0.0 0 - 0.10 Complete Blood Count + Differential 0.23 {x10E9/L} See Below FX-Abufyqi-Blx land Work Phone: Comment on above: Reference Range: 0.0 0 - 0.40 Complete Blood Count + Differential 1.02 {x10E9/L} above high threshold See Below PU-Gbyzvck-Tdy land Work Phone: Comment on above: Reference Range: 0.0 5 - 0.80 Complete Blood Count + Differential 0.97 {x10E9/L} See Below UE-Vhsmgni-Nhd land Work Phone: Comment on above: Reference Range: 0.8 0 - 3.00 Complete Blood Count + Differential 8.88 {x10E9/L} above high threshold See Below CS-Mdlwpet-Cvr land Work Phone: Comment on above: Reference Range: 1.6 0 - 5.50 Percent differential counts (%) should be interpreted in the context of the absolute cell counts (cells/L). Complete Blood Count + Differential 2.0 % 0.0 - 6.0 BX-Xhufcxg-Olf land Work Phone: Complete Blood Count + Differential 0.5 % 0.0 - 0.9 MM-Ziubhoh-YiqHere@ [employer] Work Phone: Comment on above: Immature Granulocyte Count (IG) includes promyelocytes, myelocytes and metamyelocytes but does not include bands. Percent differential counts (%) should be interpreted in the context of the absolute cell counts (cells/L). Consult-Nephrologyon 023 Consult-Nephrology Service: Service: Nephrology Consult: Consult requested by (Attending Name): Emily Dickey Reason: renal failure History of Present Illness: HPI: GENET BOOTH is a 77 year old Male He presented to the emergency room secondary to weakness and fatigue and he is also having increased urinary frequency. He states that he has not been feeling well for a little while now. He states that he has been having worsening fatigue he has also been having vomiting and he has not been eating well. He also has not been drinking well. He states that in the past he had issues with his kidneys and had to have a stent placed He has a past medical history of prostate cancer, bladder tumor, ureteral stricture, obesity, obstructive sleep apnea, hypertension, hypothyroidism, gout, hyperlipidemia and depression His past surgical history includes a prostatectomy and also had a stent placement Family history is negative for renal failure His social history includes that he lives at home independently he is a former smoker This a.m. I met him he is resting comfortably in bed He is awake and alert he has no overt uremic symptoms He does have a little bit of a tremor in his hands and he states that this is new for him A full 10 point review of systems was obtained is negative except HPI as above Review Family/Social History and ROS: Social History: Smoking Status: former smoker (1) Alcohol Use: denies(1) Drug Use: denies (1) Allergies: iodine: Unknown Objective: Objective Information: T PRBPMAPSpO2 [id number] 8% Date/Time11/21 11: 11: 11: 11: 11: 11:19 Range(36.3C - 36.9C ) (84 - 105 ) (14 - 23 ) (116 - 173 )/ (63 - 97 ) (83 - 104 ) (96% - 99% ) Highest temp of 36.9 C was recorded at 11/21 11:19 Physical Exam by System: Constitutional: Awake, alert, oriented, no acute distress Eyes: Extraocular muscles intact ENMT: Moist mucous membranes Head/Neck: Normocephalic, atraumatic Respiratory/Thorax: Bilateral equal breath sounds Cardiovascular: Regular rate and rhythm Gastrointestinal: Soft, nontender, nondistended Musculoskeletal: Moving all extremities with equal strength Extremities: No peripheral edema Neurological: Awake, alert, oriented Positive slight tremor of bilateral upper extremities Psychological: Calm Skin: Warm and dry Medications: Medications: Continuous Medications 1. Sodium Bicarbonate 150 mEq/ D5W 1000 mL Infusion: 150 mL/hr IntraVenous Scheduled Medications 1. Azithromycin: 500 mg Oral Every 24 Hours 2. cefTRIAXone 2 gram/Dextrose 5% IVPB Premixed Soln 50 mL: 50 mL IntraVenous Piggyback Every 24 Hours PRN Medications 1. Acetaminophen: 650 mg Oral Every 4 Hours 2. Acetaminophen: 650 mg Oral Every 4 Hours 3. Ondansetron Injectable: 4 mg IntraVenous Push Every 4 Hours Recent Lab Results: Results: I have reviewed these laboratory results: Complete Blood Count + Differential [Drawn 21-Nov-2022 04:35:00], Complete Blood Count + Differential [Drawn 20-Nov-2022 08:38:00], Basic Metabolic Panel [Drawn 21-Nov-2022 04:35:00], Magnesium, Serum [Drawn 21-Nov-2022 04:35:00], Magnesium, Serum [Drawn 20-Nov-2022 08:38:00], Phosphorus, Serum [Drawn 21-Nov-2022 04:35:00], Urinalysis with Culture if Indicated [Drawn 20-Nov-2022 18:29:00], Urinalysis, Microscopic [Drawn 20-Nov-2022 18:29:00], Lactate, Level [Drawn 20-Nov-2022 10:18:00], Lactate, Level [Drawn 20-Nov-2022 08:38:00], Comprehensive Metabolic Panel [Drawn 20-Nov-2022 08:38:00], Troponin I, High Sensitivity [Drawn 20-Nov-2022 08:38:00], Thyroid Stimulating Hormone, Serum [Drawn 20-Nov-2022 08:38:00], D-Dimer, VTE Exclusion [Drawn 20-Nov-2022 08:38:00], Free Thyroxine, Serum [Drawn 20-Nov-2022 08:38:00]. Radiology Results: Results: Xray Chest 1 View [Nov 20 2022 8:52AM] Assessment: Acute renal failure Azotemia without any overt signs of uremia Urinary frequency History of ureteral stricture History of prostate cancer status post prostatectomy Metabolic acidosis Slight hyperkalemia Slight hyponatremia Hyperphosphatemia Plan: At this time he does not have any overt signs of uremia. He does have a slight tremor of his hands but no obvious asterixis At this time his electrolytes are also fairly stable he is profoundly acidotic He is making urine We will get a renal ultrasound to make sure he is not obstructed At this time he is awake alert talking he does not want dialysis unless absolutely necessary Although his numbers look quite bad he does not have any emergent reasons for dialysis We will start a bicarb drip We will watch his volume status urine output electrolytes closely I did explain to him that I cannot guarantee that we will not have to do d (more content not included)... Normal [facility] Daily Progress Note-Medicine on 11-21-2022 Daily Progress Note-Medicine Service: Medicine Subjective Data: GENET BOOTH is a 77 year old Male who is Hospital Day # 2. No acute events overnight. Resting comfortably in his bed. Reports feeling better in general today compared to yesterday. Objective Data: Objective Information: T PRBPMAPSpO2 [id number] 6% Date/Time11/21 16: 16: 16: 16: 11: 16:00 Range(36.1C - 36.9C ) (84 - 105 ) (14 - 23 ) (116 - 173 )/ (63 - 97 ) (83 - 104 ) (96% - 99% ) Highest temp of 36.9 C was recorded at 11/21 11:19 Pain reported at 11/21 12:00: 1 = Mild Physical Exam by System: Constitutional: awake/alert/oriented x3, not in acute distress, obese Eyes: PERRL, EOMI, clear sclera ENMT: normal hearing, mucous membranes moist, no pharyngeal erythema or exudates Head/Neck: neck supple, no apparent injury, no JVD, no lymphadenopathy, trachea midline Respiratory/Thorax: patent airways, clear to auscultation bilaterally, no crackles or wheezing or rhonchi Cardiovascular: Regular, rate and rhythm, no murmurs, 2+ equal pulses of the extremities Gastrointestinal: Distended from obesity, positive bowel sounds, soft, non-tender, no rebound tenderness or guarding, no masses palpable, no organomegaly Extremities: no edema Neurological: intact senses, motor, response and reflexes, normal strength, babinski negative Psychological: Appropriate mood and behavior Skin: warm, no rashes Medication: Medications: Continuous Medications 1. Sodium Bicarbonate 150 mEq/ D5W 1000 mL Infusion: 150 mL/hr IntraVenous Scheduled Medications 1. Azithromycin: 500 mg Oral Every 24 Hours 2. cefTRIAXone 2 gram/Dextrose 5% IVPB Premixed Soln 50 mL: 50 mL IntraVenous Piggyback Every 24 Hours 3. Nystatin 100,000 Units/ gram Topical: 1 application(s) Topical 3 Times a Day PRN Medications 1. Acetaminophen: 650 mg Oral Every 4 Hours 2. Acetaminophen: 650 mg Oral Every 4 Hours 3. Ondansetron Injectable: 4 mg IntraVenous Push Every 4 Hours Recent Lab Results: Results: CBC: 11/21/2022 04:35 \ Hgb / \ 9.2 L / WBC Plt 11.2 322 / Hct \ / 29.8 L \ RBC: 3.23 L MCV: 92 Neutrophil %: 79.3 BMP: 11/21/2022 04:35 NA+ Cl- BUN / 132 L 106 199 H / Glucose ----- 98 K+ HCO3- Creat \ 5.7 H 7 L 14.93 H \ Calcium : 7.7 L Anion Gap : 25 H Assessment and Plan: Code Status: Code StatusFull Code Advance Care Planning: Advance Care Planning: I evaluated the patient and determined the patient's capacity to understand the risks, benefits and alternatives to treatment. I elicited the patient's goals for treatment and reviewed advance directives and medical orders for life sustaining treatment. The patient was given an opportunity to review a blank advance directive as appropriate. Assessment: 77-year-old male with a past medical history of Prostate cancer s/p prostatectomy, bladder tumor, urethral stricture, obesity, obstructive sleep apnea, hypertension, left knee chronic pain, hypothyroidism, gout, hyperlipidemia, depression and a questionable poor compliance/adherence with his medications and following up with a family doctor, who presented to the emergency room for a 1 week history of weakness. Patient was found to have sepsis [tachycardia, leukocytosis, lactic acidosis] associated with significant acute kidney injury and metabolic acidosis and secondary to community-acquired pneumonia as well as a possible urinary tract infection. Patient appears clinically today better than yesterday. Leukocytosis resolved. Tachycardia resolved. Afebrile and hemodynamically stable. Kidney function has improved from yesterday but creatinine still significantly elevated. Nephrology input appreciated. Patient started on bicarbonate drip. Given the hyperkalemia and metabolic acidosis. We will monitor closely. Repeat BMP tomorrow. PTH level also ordered. Continue with the ceftriaxone and azithromycin. As mentioned on my admission note, I reviewed the patient's charts from 2 years ago. I noticed that he is supposed to be on aspirin 81 mg daily, allopurinol 100 mg twice a day, amlodipine 5 mg daily, levothyroxine 88 mcg, Flomax 0.8 mg daily, lisinopril 10 mg daily, and oxybutynin 5 mg twice a day. Patient himself said that he is not taking any more of those medications. He decided that he is feeling better. And he stopped seeing a family doctor. His blood pressure is currently within normal limits. Thyroid panel is also grossly normal. So for now, I would hold on giving any of those medications. The patient will need to start seeing PCP as outpatient later on. SCDs for DVT prophylaxis Full code (This note was generated with voice recognition software a (more content not included)... Normal [facility] Laboratory - Chemistry and C hemistry - challengeon 11-21-2022 Anion gap [Moles/Vol] 25 mmol/L above high threshold 10 - 20 VU-Mvcpzqu-Mfr land Work Phone: Calcium [Mass/Vol] 7.7 mg/dL below low threshold 8.6 - 10.3 KE-Yfaswfd-Lwu land Work Phone: Chloride [Moles/Vol] 106 mmol/L 98 - 107 MP-U rology-Niall land Work Phone: CO2 [Moles/Vol] 7 mmol/L below low threshold 21 - 32 ZQ-Fiwkkqc-Vhj land Work Phone: Comment on above: This is a critical r esult. Per Laboratory policy, critical results for this test only qualify to the call list once per 24 hours. Creatinine [Mass/Vol] 14.93 mg/dL above high threshold See Below NA-Jzohayw-[employer] Work Phone: Comment on above: Reference Range: 0.5 0 - 1.30 Glucose [Mass/Vol] 98 mg/dL 74 - 99 MP-Uro logy-Niall land Work Phone: Potassium [Moles/Vol] 5.7 mmol/L above high threshold 3.5 - 5.3 JD-Rxzuqgk-Xws land Work Phone: Sodium [Moles/Vol] 132 mmol/L below low threshold 136 - 145 NX-Arpiftz-Vqp land Work Phone: Urea nitrogen [Mass/Vol] 199 mg/dL above high threshold 6 - 23 FR-Smxzgfy-Tkg land Work Phone: Comment on above: This is a critical r esult. Per Laboratory policy, critical results for this test only qualify to the call list once per 24 hours. MAGNESIUMon 11-21-2022 Magnesium [Mass/Vol] 2.55 mg/dL High 1.60 - 2.40 [facility] Comment on above: Performed By: #### M G ####[id number] [place] [address] Magnesium, Serumon 3 Magnesium [Mass/Vol] 2.55 mg/dL above high threshold See Below DS-Ltsoshm-Mnh land Work Phone: Comment on above: Reference Range: 1.6 0 - 2.40 No Panel Informationon 11-21 3 {mL/min/1.73m2} Abnormal >90 MP-Urol ogy-[employer] Work Phone: Comment on above: CALCULATIONS OF ALEJANDRA MATED GFR ARE PERFORMED USING THE 2020 CKD-EPI STUDY REFIT EQUATION WITHOUT THE RACE VARIABLE FOR THE IDMS-TRACEABLE CREATININE METHODS.https://jasn.asnjournals.org/content/early//A SN.0323636987 PHOSPHORUSon 11-21-2022 Phosphate [Mass/Vol] 11.0 mg/dL High 2.5 - 4.9 [facility] Comment on above: Result Comment: The performance characteristics of phosphorus testing in heparinized plasma have been validated by the individual laboratory site where testing is performed. Testing on heparinized plasma is not approved by the FDA; however, such approval is not necessary. Performed By: #### C BC #### [facility] [address] [place] [address] Phosphorus, Serumon 11-22-19 23 Phosphate [Mass/Vol] 11.0 mg/dL above high threshold 2.5 - 4.9 LZ-Rvalmyt-Wnb land Work Phone: Comment on above: The performance herve acteristics of phosphorus testing in heparinized plasma have been validated by the individual laboratory site where testing is performed. Testing on heparinized plasma is not approved by the FDA; however, such approval is not necessary. Radiologyon 11-21-2022 US Kidney - bilateral Normal MP- Urology-[employer] Work Phone: Admission Risk Screen - Adul ton 11-20-2022 Admission Risk Screen - Adult Allergies: Allergies: iodine: Unknown Patient Verification: New W ID Band Applied in my Departmentyes Patient Identity Verified Bypatient ID Band FULL Name, include Middle, spelling matches patient's ID used for verificationyes ID Band Matches Patient ID used for Verficationyes ID Band MRN Matches EMR MRNyes Travel History: COVID-19 Screening Completedno exposure or symptoms Travel or Exposure Past 30 DaysNO travel to International locations in the past 30 days Advance Directive: Advance Directive/DNRyes Advance Directive typeLiving Will Living Will AvailabilityLiving Will not available now Living Will [id number] Advanced Directive Commenthas been years since I did it Aguayo Fall Screen: History of falling (immediate or previous)no (0) Secondary Diagnosisyes (15) Intravenous Therapy/ Heparin/Saline Lockyes (20) Gait/Transferringweak (10) Ambulatory Aidsnone/bedrest/nurse assist (0) Mental Statusoriented to own ability (0) Score: Low risk (<25). Moderate risk (25-44). High risk (>44).45 Aguayo InterventionsHIGH INTERVENTIONS *Low and Moderate Interventions Plus: * supervised toileting at all times Family Violence Screen: Are you or have you been threatened or abused physically, emotionally, or sexually by anyoneno Do you feel UNSAFE going back to the place where you are livingno Clinical assessment: Are there any apparent signs of injuries/behaviors that could be related to abuse/neglectno Social Service Consult for abuse/neglect needed this visitno Functional Screen: Functional Screen: In the recent/past 2-4 weeks, patient or family have noticedno issues that require a speech/language consult at this time AM-PAC- Basic Mobility/Daily Activity: Patient baseline bedboundno Turning from your back to your side while in a flat bed without using bedrailsnone Moving from lying on your back to sitting on the side of a flat bed without using bedrailsa little Moving to and from bed to chair (including a wheelchair)a little Standing up from a chair using your arms (e.g. wheelchair or bedside chair)a little To walk in hospital rooma lot Climbing 3-5 steps with railinga lot Basic Mobility - Total Score17 Putting on and taking off regular lower body clothingnone Bathing (including washing, rinsing, drying)none Putting on and taking off regular upper body clothinga lot Toileting, which includes using toilet, bedpan or urinala lot Taking care of personal grooming such as brushing teethnone Eating Mealsnone Daily Activity - Total Score20 Learning Assessment (Patient): Patient is Able to be Assessed for Learningyes Factors Influencing Readiness to Learnacuteness of illness Factors that Impact Ability to Learnacuteness of illness Devices/Methods Used to Communicateglasses Learning Preferencesverbal instruction; individual instruction Cultural Considerationsnone Developmental Considerationsnone Uatsdin Considerationsnone Learning Assessment (Other Learner): Other learner availableno Depression Screen: During the past month, have you often been bothered by feeling down, depressed or hopelessno During the past month, have you often had little interest or pleasure in doing thingsno Have you had any thoughts of harming anyone elseno Kress Suicide: Risk Screen Not Applicable/Able to Answerable to be screened In the Past Month: Have you wished you were or could go to sleep and not wake upno In the Past Month: Have you had any actual thoughts of killing yourselfno Lifetime: Have you ever done, started to do, or prepared to do anything to end your lifeno Kress Suicide Risknegative Adult Nutrition Screen: Have you recently lost weight without tryingunsure Have you been eating poorly because of a decreased appetiteyes Malnutrition Screening Tool Score3 Malnutrition Screening Tool RiskMST = 2 or more At Risk. Eating poorly and/or recent weight loss Nutrition Consult needed this visityes Can Patient Participate in Room Serviceyes Patient requires Paper Dishes/Plastic Utensilsno Pain Screen: Pain Scalenumerical 0-10 Pain Scale Educationteaching provided Current Pain Level0 = None Acceptable Pain Level5 = Moderate Expression of Pain (nonverbal)none Chronic Painno Spiritual Screen: Are there any cultural, spiritual, synagogue practices/values/needs that are important for us to knowno CAGE: Is this an injured patient at a Trauma Center ([facility]/[facility]/[place]): no Vaccinations: Vaccination - Influenza Vaccination Screen: Is it flu season (between and August 30)No Vaccination - Pneumonia Vaccination Screen: Patient has received a previous pneumonia vaccine:yes (given either at or after age 65) Jaden: Skin - Jaden Scale: Jaden: Sensory Perception (response to environment)(3) slightly limited Jaden: Moisture (degree skin expos (more content not included)... Normal [facility] CBC AND DIFFERENTIALon 11-20 % AUTOMATED IMMATURE GRAN 0.5 % Normal 0.0 - 0.[address] [facility] Comment on above: Result Comment: Lubna ture Granulocyte Count (IG) includes promyelocytes, myelocytes and metamyelocytes but does not include bands. Percent differential counts (%) should be interpreted in the context of the absolute cell counts (cells/L). Performed By: #### T RP #### [address] [address] Basophils (Bld) [#/Vol] 0.06 10*3/uL Normal 0.00 - 0.[address] [facility] Comment on above: Performed By: #### T RPHS #### [address] [address] Basophils/100 WBC (Bld) 0.4 % Normal 0.0 - 2.[address] [facility] Comment on above: Performed By: #### T RPHS #### [address] [address] Eosinophils (Bld) [#/Vol] 0.06 10*3/uL Normal 0.00 - 0.[address] [facility] Comment on above: Performed By: #### T RPHS #### [address] [address] Eosinophils/100 WBC (Bld) 0.4 % Normal 0.0 - 6.[address] [facility] Comment on above: Performed By: #### T RPHS #### [address] [address] Erythrocyte distribution width (RBC) [Ratio] 14.0 % Normal 11.5 - 14.[address] [facility] Comment on above: Performed By: #### T RPHS #### [address] [address] Hematocrit (Bld) [Volume fraction] 35.9 % Low 41.0 - 52.[address] [facility] Comment on above: Performed By: #### T RPHS #### [address] [address] Hemoglobin (Bld) [Mass/Vol] 11.2 g/dL Low 13.5 - 17.[address] [facility] Comment on above: Performed By: #### T RPHS #### [address] [address] Lymphocytes (Bld) [#/Vol] 1.10 10*3/uL Normal 0.80 - 3.[address] [facility] Comment on above: Performed By: #### T RPHS #### [address] [address] Lymphocytes/100 WBC (Bld) 7.2 % Normal 13.0 - 44.[address] [facility] Comment on above: Performed By: #### T RPHS #### [address] [address] MCHC (RBC) [Mass/Vol] 31.2 g/dL Low 32.0 - 36.0 [facility] Comment on above: Performed By: #### T RPHS #### [address] [address] MCV (RBC) [Entitic vol] 92 fL Normal 80 - [address] [facility] Comment on above: Performed By: #### T RPHS #### [address] [address] Monocytes (Bld) [#/Vol] 0.95 10*3/uL High 0.05 - 0.[address] [facility] Comment on above: Performed By: #### T RPHS #### [address] [address] Monocytes/100 WBC (Bld) 6.2 % Normal 2.0 - 10.[address] [facility] Comment on above: Performed By: #### T RPHS #### [address] [address] Neutrophils (Bld) [#/Vol] 12.99 10*3/uL High 1.60 - 5.[address] [facility] Comment on above: Result Comment: Perc ent differential counts (%) should be interpreted in the context of the absolute cell counts (cells/L). Performed By: #### T RPHS #### [address] [address] Neutrophils/100 WBC (Bld) 85.3 % Normal 40.0 - 80.[address] [facility] Comment on above: Performed By: #### T RPHS #### [address] [address] Platelets (Bld) [#/Vol] 414 10*3/uL Normal 150 - [address] [facility] Comment on above: Performed By: #### T RPHS #### [address] [address] RBC 3.89 x10E12/L Low 4.50 - 5.[address] [facility] Comment on above: Performed By: #### T RPHS #### [address] [address] WBC (Bld) [#/Vol] 15.2 10*3/uL High 4.4 - 11.3 [facility] Comment on above: Performed By: #### T RPHS #### [address] [address] CHEST 1 VIEWon 11-20-2022 CHEST 1 VIEW Patient Name: GENET BOOTH STUDY: CHEST 1 VIEW; 11/20/2022 8:40 am INDICATION: dyspnea . COMPARISON: 01/03/2011 ACCESSION NUMBER(S): [id number] ORDERING CLINICIAN: DAVEY CARIAS FINDINGS: CARDIOMEDIASTINAL SILHOUETTE: The heart is enlarged. LUNGS: There is left basilar infiltrate with volume loss. ABDOMEN: No remarkable upper abdominal findings. BONES: No acute osseous changes. IMPRESSION: Left basilar pneumonia with volume loss. Electronically signed by: JUVENTINO CASTILLO MD Normal [facility] COMPREHENSIVE PANELon 2022 Urea nitrogen [Mass/Vol] 205 mg/dL Critically high 6 - [address] [facility] Comment on above: Order Comment: CRITI ERICA BIC BUN CALLED RB TO CHERIEHUSSEIN DIAZ, 11/20/2022 09:32 Result Comment: CRIT ICAL BIC BUN CALLED RB TO CHERIE DIAZ, 11/20/2022 09:32 Performed By: #### C MP ####[address] [address] Albumin [Mass/Vol] 4.0 g/dL Normal 3.4 - 5.0 [facility] Comment on above: Order Comment: CRITI ERICA BIC BUN CALLED RB TO CHERIE DIAZ, 11/20/2022 09:32 Performed By: #### C MP ####[address] [address] ALP [Catalytic activity/Vol] 84 U/L Normal 33 - [address] [facility] Comment on above: Order Comment: CRITI ERICA BIC BUN CALLED RB TO CHERIE DIAZ, 11/20/2022 09:32 Performed By: #### C MP ####[address] [address] ALT [Catalytic activity/Vol] 7 U/L Low 10 - [address] [facility] Comment on above: Order Comment: CRITI ERICA BIC BUN CALLED RB TO CHERIE DIAZ, 11/20/2022 09:32 Result Comment: Rhea ents treated with Sulfasalazine may generate falsely decreased results for ALT. Performed By: #### C MP ####[address] [address] Anion gap [Moles/Vol] 30 mmol/L High 10 - 20 [facility] Comment on above: Order Comment: CRITI ERICA BIC BUN CALLED RB TO CHERIE DIAZ, 11/20/2022 09:32 Performed By: #### C MP ####[address] [address] AST [Catalytic activity/Vol] 5 U/L Low 9 - [address] [facility] Comment on above: Order Comment: CRITI ERICA BIC BUN CALLED RB TO CHERIE DIAZ, 11/20/2022 09:32 Performed By: #### C MP ####[address] [address] Bilirubin [Mass/Vol] 0.3 mg/dL Normal 0.0 - 1.2 [facility] Comment on above: Order Comment: CRITI ERICA BIC BUN CALLED RB TO CHERIE DIAZ, 11/20/2022 09:32 Performed By: #### C MP ####[address] [address] Calcium [Mass/Vol] 9.0 mg/dL Normal 8.6 - 10.3 [facility] Comment on above: Order Comment: CRITI ERICA BIC BUN CALLED RB TO CHERIE DIAZ, 11/20/2022 09:32 Performed By: #### C MP ####[address] [address] Chloride [Moles/Vol] 101 mmol/L Normal 98 - 107 [facility] Comment on above: Order Comment: CRITI ERICA BIC BUN CALLED RB TO CHERIE DIAZ, 11/20/2022 09:32 Performed By: #### C MP ####[address] [address] Creatinine [Mass/Vol] 16.92 mg/dL High 0.50 - 1.30 [facility] Comment on above: Order Comment: CRITI ERICA BIC BUN CALLED RB TO CHERIE DIAZ, 11/20/2022 09:32 Performed By: #### C MP ####[address] [address] GFR/1.73 sq M.predicted among non-blacks MDRD (S/P/Bld) [Vol rate/Area] 3 mL/min/{1.73_m2} Abnormal >[address] [facility] Comment on above: Order Comment: CRITI ERICA BIC BUN CALLED RB TO CHERIE DIAZ, 11/20/2022 09:32 Result Comment: CALC ULATIONS OF ESTIMATED GFR ARE PERFORMED USING THE 2020 CKD-EPI STUDY REFIT EQUATION WITHOUT THE RACE VARIABLE FOR THE IDMS-TRACEABLE CREATININE METHODS. https://jasn.asnjournals.org/content/early/ASN.10054 [address] Performed By: #### C MP ####[address] [address] Glucose [Mass/Vol] 122 mg/dL High 74 - 99 [facility] Comment on above: Order Comment: CRITI ERICA BIC BUN CALLED RB TO CHERIE DIAZ, 11/20/2022 09:32 Performed By: #### C MP ####[address] [address] HCO3 (Bld) [Moles/Vol] 7 mmol/L Critically low 21 - [address] [facility] Comment on above: Order Comment: CRITI ERICA BIC BUN CALLED RB TO CHERIE DIAZ, 11/20/2022 09:32 Result Comment: CRIT ICAL BIC BUN CALLED RB TO CHERIE DIAZ, 11/20/2022 09:32 Performed By: #### C MP ####[address] [address] Potassium [Moles/Vol] 5.3 mmol/L Normal 3.5 - 5.3 [facility] Comment on above: Order Comment: CRITI ERICA BIC BUN CALLED RB TO CHERIE DIAZ, 11/20/2022 09:32 Performed By: #### C MP ####[address] [address] Protein [Mass/Vol] 8.0 g/dL Normal 6.4 - 8.2 [facility] Comment on above: Order Comment: CRITI ERICA BIC BUN CALLED RB TO CHERIE DIAZ, 11/20/2022 09:32 Performed By: #### C MP ####[address] [address] Sodium [Moles/Vol] 133 mmol/L Low 136 - 145 [facility] Comment on above: Order Comment: CRITI ERICA BIC BUN CALLED RB TO CHERIE DIAZ, 11/20/2022 09:32 Performed By: #### C MP ####[address] [address] Complete Blood Count + Josette josé miguel 11-20-2022 Basophils/100 WBC (Bld) 0.4 % 0.0 - 2.0 RP-Fxafeiv-Fwc land Work Phone: Erythrocyte distribution width (RBC) [Ratio] 14.0 % See Below ZN-Fmswcxn-Gla land Work Phone: Comment on above: Reference Range: 11. 5 - 14.5 Hematocrit (Bld) [Volume fraction] 35.9 % below low threshold See Below DY-Hchbtuw-Vsq land Work Phone: Comment on above: Reference Range: 41. 0 - 52.0 Hemoglobin (Bld) [Mass/Vol] 11.2 g/dL below low threshold See Below OA-Gdinted-Fvn land Work Phone: Comment on above: Reference Range: 13. 5 - 17.5 Lymphocytes/100 WBC (Bld) 7.2 % See Below VN-Zxoynzx-Zee land Work Phone: Comment on above: Reference Range: 13. 0 - 44.0 MCHC (RBC) [Mass/Vol] 31.2 g/dL below low threshold See Below YV-Rierdtq-Pns land Work Phone: Comment on above: Reference Range: 32. 0 - 36.0 MCV (RBC) [Entitic vol] 92 fL 80 - 100 KJ-Kibnqco-VeaHere@ [employer] Work Phone: Monocytes/100 WBC (Bld) 6.2 % 2.0 - 10.0 [employer] Work Phone: Neutrophils/100 WBC (Bld) 85.3 % See Below QT-Mmmbxbt-Mgq land Work Phone: Comment on above: Reference Range: 40. 0 - 80.0 Platelets (Bld) [#/Vol] 414 10*3/uL 150 - 450 [employer] Work Phone: RBC (Bld) [#/Vol] 3.89 {x10E12/L} below low threshold See Below HS-Cppgkuw-Ugq land Work Phone: Comment on above: Reference Range: 4.5 0 - 5.90 WBC (Bld) [#/Vol] 15.2 10*3/uL above high threshold 4.4 - 11.3 DO-Glgfixu-Par land Work Phone: Complete Blood Count + Differential 0.06 {x10E9/L} See Below WE-Pavjseh-Qdk land Work Phone: Comment on above: Reference Range: 0.0 0 - 0.10 Reference Range: 0.0 0 - 0.40 Complete Blood Count + Differential 0.95 {x10E9/L} above high threshold See Below [employer] Work Phone: Comment on above: Reference Range: 0.0 5 - 0.80 Complete Blood Count + Differential 1.10 {x10E9/L} See Below [employer] Work Phone: Comment on above: Reference Range: 0.8 0 - 3.00 Complete Blood Count + Differential 12.99 {x10E9/L} above high threshold See Below [employer] Work Phone: Comment on above: Reference Range: 1.6 0 - 5.50 Percent differential counts (%) should be interpreted in the context of the absolute cell counts (cells/L). Complete Blood Count + Differential 0.4 % 0.0 - 6.0 [employer] Work Phone: Complete Blood Count + Differential 0.5 % 0.0 - 0.9 [employer] Phone: Comment on above: Immature Granulocyte Count (IG) includes promyelocytes, myelocytes and metamyelocytes but does not include bands. Percent differential counts (%) should be interpreted in the context of the absolute cell counts (cells/L). Cult, Urineon 11-20-2022 Bacteria identified Cx Nom (U) [employer] Work Phone: D-DIMER, VTE EXCLUSIONon D-DIMER, VTE EXCLUSION 1729 ng/mL FEU Abnormal < or = [address] [facility] Comment on above: Result Comment: The VTE Exclusion D-Dimer assay is reported in ng/mL Fibrinogen Equivalent Units (FEU). Per manufacturers instructions for use, a value of less than 500 ng/mL (FEU) may help to exclude DVT or PE in outpatients when the assay is used with a clinical pretest probability assessment. (AEMR must utilize and document eCalc Wells Score Deep Vein Thrombosis Risk for DVT exclusion only; Emergency Department should utilize Guidelines for Emergency Department Use of the VTE Exclusion D-Dimer and Clinical Pretest probability assessment model for DVT or PE exclusion.) Performed By: #### T [facility] #### [facility] [address] [place] [address] Discharge Planning Hyyj0yh 0 11-20-2022 Discharge Planning Note2 Discharge Planning: Discharge Barriersnone Planned Dispositionsnf [facility] thru [facility]29 [facility] > 16no PCP/Next Provider Follow Up Scheduledyes Patient/Garde Manger [facility] [place] of Choice Explainedyes Anticipated Discharge [id number] Discharge Planning 11-21-22, 1200, Care Transitions/TCC Note: Spoke with patient earlier at 1050 and verified contact information and insurance. Explained Care Transitions and Nurse Laundry Machine Mechanic role to navigate patient through the discharge planning process and help with any discharge needs. Patient in agreement. Patient lives in two story home alone and is independent in all his care, cooking, cleaning, and driving. He denies any falls, and does not use any assistive devices, but says it is getting harder to get around at home, and he feels weak, and does not use his upstairs. His [facility] sore is 17/20. He says he could use some in home therapy and sent referrals to several agencies to see who is in contract with his insurance. Discussed choices with him from a printed list as he does not have any preference who he uses. He denies any DM, home 02, or dialysis. He has a cpap but does not use it anymore. He is here with CHLOE and is hoping that he will not end up getting any type of dialysis as this is all new for him. Per care rounds meeting, ADOD sometime over the weekend. CT to follow. Cori Hathaway RN, BSN /TCC 11-22-22, 1400, TCC Note: Per care rounds meeting, ADOD 48-72 hrs. Left message with patient regarding search for home health agency, as this TCC having difficulty with [facility] and having to fax most patient info., also some agencies not in network with patient insurance or they are out service in that area where patient lives. Possibility for patient to be getting dialysis per Dr. De León progress notes. He will need to be seen by urology. TCC to keep working on locating home care agency for patient. Cori Hathaway RN, BSN /TCC 11-22-22, 1350, [facility] Note: Spoke with patient and he may need rehab placement short term. Says he may have stent placement tomorrow for kidney stones. Requested referrals be sent to local SNF's in [place]. He says he has been to [facility] before and the food is terrible. Also told him we are still working on plan for home health agencies and also gave him private pay agency list for home care liaison services which he reports that he has been trying to find someone to come in and help out at his home. CT to follow. Cori Hathaway RN, BSN /TCC 11/23/2022 1535 Care Transitions/SW Note: Pt reviewed in care rounds at midday. ADOD 24 hrs. SW met with Pt at bedside. SW reviewed IM and Pt signed, SW left copy with Pt. SW advised no response received on acceptance of HHC and Pt stated understanding. SW offered to pursure SNF placement and Pt declined. Plan is to d/c home and Pt to pursue psychological aide providers. HHC referrals sent, providers may call Pt to set up if any are able to accept but SW did not received a response this weekend. Care Transitions/SW to follow and assist as needed. Norma Nathan, SECURITY INSTALLATION TECHNICIAN 11-25-22, 1245, [facility] Note: Spoke with patient this am and he is unsure of what he will do when he is discharged, but does plan to pursue private pay services for in home aides. He did agree for back up plan, SNF placement, short term for therapy. Referrals were sent to local SNF's. Acceptance pending. His ampac score at this time is 13/15, and he is appropriate for SNF. Hospital pastoral services reported to this TCC that patient had asked hide trimmer to call his banquet server on call for him and patient was going to have his will revised. Advised pastoral dept. that this was ok to help patient place call. Per care rounds meeting, ADOD will be when cleared by nephrology. CT to follow. Cori Hathaway RN, BSN /TCC 11-25-22, 1600, TCC Note: [facility]. No response from [facility]. Patient is going to look up [facility] on his phone and think about where he wants to go if this is his final discharge plan. CT to follow. Cori Hathaway RN, BSN /TCC 11/26/2022 @149pm Care Transitions/SW Note: Pt reviewed during Care Rounds and is not ready for discharge. Dr. Pardo reports he is following Dr. De León's lead and pt will be ready for discharge once Dr. De León is ready. Pt is being followed by [facility] for possible HD set up. Per chart review, pt does not need dialysis right now and Dr De León will continue following in the community. Dr. De León supports discharge once precert is back for SNF placement. Per [facility], [facility], [facility], and [facility] can all accept. SW met with pt to review accepting SNF's. Pt's preference is for [facility]. He was educated to the precertification process and demonstrated understanding. Pt expresses anxiety and worry about care at home once he i (more content not included)... Normal [facility] EMR ADDONon 11-20-2022 ADDON CONFIRMATION REQUEST REC'D Normal [facility] Comment on above: Performed By: #### C BC #### [address] [address] LACTATEon 11-20-2022 Lactate [Moles/Vol] 1.8 mmol/L Normal 0.4 - 2.0 [facility] Comment on above: Result Comment: Keeley puncture immediately after or during the administration of Metamizole may lead to falsely low results. Testing should be performed immediately prior to Metamizole dosing. Performed By: #### C BC #### [address] [address] Lactate [Moles/Vol] 2.6 mmol/L High 0.4 - 2.0 [facility] Comment on above: Result Comment: Keeley puncture immediately after or during the administration of Metamizole may lead to falsely low results. Testing should be performed immediately prior to Metamizole dosing. Performed By: #### B MP #### [address] [address] Laboratory - Chemistry and C hemistry - challengeon 11-20-2022 Albumin BCP dye [Mass/Vol] 4.0 g/dL 3.4 - 5.0 SH-Frvgzil[facility]Mov [facility] Work Phone: ALP [Catalytic activity/Vol] 84 U/L 33 - 136 GC-Acimerf-Bxh land Work Phone: ALT With P-5'-P [Catalytic activity/Vol] 7 U/L below low threshold 10 - 52 VW-Ewykdme-Raf land Work Phone: Comment on above: Patients treated wit h Sulfasalazine may generate falsely decreased results for ALT. Anion gap [Moles/Vol] 30 mmol/L above high threshold 10 - 20 EX-Cxdxrwd-Ikd land Work Phone: AST With P-5'-P [Catalytic activity/Vol] 5 U/L below low threshold 9 - 39 ZQ-Ozpvfnf-Zdg land Work Phone: Bilirubin [Mass/Vol] 0.3 mg/dL 0.0 - 1.2 MP-U rology-Niall land Work Phone: Calcium [Mass/Vol] 9.0 mg/dL 8.6 - 10.3 MP-Uro logy-Niall land Work Phone: Chloride [Moles/Vol] 101 mmol/L 98 - 107 MP-U rology-Niall land Work Phone: CO2 [Moles/Vol] 7 mmol/L Critically low 21 - 32 MP-Ur ology-Niall land Work Phone: Comment on above: CRITICAL BIC BUN ERICA LED RB TO CHERIE EMILY, 11/20/2022 09:32 Creatinine [Mass/Vol] 16.92 mg/dL above high threshold See Below BV-Prskzcg-Cxe land Work Phone: Comment on above: Reference Range: 0.5 0 - 1.30 Glucose [Mass/Vol] 122 mg/dL above high threshold 74 - 99 UK-Owckftu-Wcp land Work Phone: Potassium [Moles/Vol] 5.3 mmol/L 3.5 - 5.3 MP- Urology-Niall land Work Phone: Protein [Mass/Vol] 8.0 g/dL 6.4 - 8.2 MP-Uro logy-Niall land Work Phone: Sodium [Moles/Vol] 133 mmol/L below low threshold 136 - 145 YJ-Elvahxp-Uud land Work Phone: Urea nitrogen [Mass/Vol] 205 mg/dL Critically high 6 - 23 HX-Dbuwaiu-Wst land Work Phone: Comment on above: CRITICAL BIC BUN ERICA LED RB TO CHERIE DIAZ, 11/20/2022 09:32 Lactate, Levelon 11-20-2022 Lactate [Moles/Vol] 1.8 mmol/L 0.4 - 2.0 MP-Ur ology-Say[employer] Work Phone: Comment on above: Venipuncture immedia tely after or during the administration of Metamizole may lead to falsely low results. Testing should be performed immediately prior to Metamizole dosing. Lactate [Moles/Vol] 2.6 mmol/L above high threshold 0.4 - 2.0 OL-Xdglgfu-Qfd land Work Phone: Comment on above: Venipuncture immedia tely after or during the administration of Metamizole may lead to falsely low results. Testing should be performed immediately prior to Metamizole dosing. MAGNESIUMon 11-20-2022 Magnesium [Mass/Vol] 2.61 mg/dL High 1.60 - 2.40 [facility] Comment on above: Performed By: #### T [facility] #### [address] [place] [address] Magnesium, Serumon Magnesium [Mass/Vol] 2.61 mg/dL above high threshold See Below DE-Mlxxoqp-[employer] Work Phone: Comment on above: Reference Range: 1.6 0 - 2.40 No Panel Informationon 11-20 1729 {ng/mL_FEU} Abnormal < or = 500 MP-Urolo gy-SayNow Work Phone: Comment on above: The VTE Exclusion D- Dimer assay is reported in ng/mL Fibrinogen Equivalent Units (FEU). Per manufacturers instructions for use, a value of less than 500 ng/mL (FEU) may help to exclude DVT or PE in outpatients when the assay is used with a clinical pretest probability assessment. (AEMR must utilize and document eCalc Wells Score Deep Vein Thrombosis Risk for DVT exclusion only; Emergency Department should utilize Guidelines for Emergency Department Use of the VTE Exclusion D-Dimer and Clinical Pretest probability assessment model for DVT or PE exclusion.) 3 {mL/min/1.73m2} Abnormal >90 MP-Urol Lissy valdovinos Work Phone: Comment on above: CALCULATIONS OF ALEJANDRA MATED GFR ARE PERFORMED USING THE 2020 CKD-EPI STUDY REFIT EQUATION WITHOUT THE RACE VARIABLE FOR THE IDMS-TRACEABLE CREATININE METHODS.https://jasn.asnjournals.org/content/early/A SN.3077942391 Order Reconciliationon 11-20 Order Reconciliation Page 1 Admission Reconciliation Document Reconciliation Type: ED to Observation requested on behalf of Emily Dickey (Physician) done by Emily Dickey) ED to Observation - Reconciliation: 20-Nov-2022 18:23 by: Emily Dickey) ED to Observation - AutoLinked: 20-Nov-2022 18:23 by: Emily Dickey) Home MedicationsEnteredLast Dose TakenReconciled with current Order Reconciliation Comment/ Additional Information Multiple Vitamins oral tablet 1 tab(s) orally once a [id number] Reviewed and Held Pepto-Bismol 262 mg oral tablet 2 tab(s) orally once a day, As Needed 20-Nov-2022 Reviewed and Held Additional Current Orders Sodium Chloride 0.9% Infusion IV Bag Volume = 1,000 mL Run at: 100 mL/hr IntraVenous Normal [facility] Patient Profile - Adult v2on 11-20-2022 Patient Profile - Adult v2 Profile: Initial Info: How to be AddressedMike Spoken Language PreferredEnglish Source of Informationpatient Stated Reason for Admissionprogressive weakness Primary Contact Name and NumberDrew Martina (neighbor) [phone] Wants Family/Rep Notified of Admissionno Notify PCPnotify PCP Dr. Hernandez Informed of Patient [place] Patient Belongingsremains with patient Patient Belongings Remaining with Patientvision aids; dental appliance; purse/wallet; clothing; cell phone/electronics Medications Brought to Hospitalno General Health: Blood Avoidance/Restrictions none Weight in kg105.7 kilogram(s) Weight in fvb983 pound(s) Weight Methodactual (measured) Scale Typebed Height in cm177.8 centimeter(s) Height in feet5 feet Height in [id number] inch(es) Height Methodstated BMI (kg/m2)33.435 square meter RSP Based Care: How would you like to participate in your carekeep informed What is the number one concern for you during this hospitalizationgetting better What is the most important thing we can do to support you during this hospitalizationhelp me to feel better Is there anything we need to know to best care for youno Substance: Smoking Statusformer smoker (1) Alcohol Usedenies(1) Drug Usedenies (1) Health Mgmt: Symptoms/Conditions Managed at Homecancer; genitourinary; skin Cancer Symptoms/Conditionspro state; 12 years ago Cancer Managementmanaged Genitourinary Symptoms/Conditionsren al disease; L kidney - stent Genitourinary Managementnot managed Skin Managementmanaged Relationship/Environ: Resource/Environmental Concernsnone Primary Source of Support/Comfortneighbo r Lives Withalone Living Arrangementshouse Services Anticipated at Transitionunknown Anticipated Transition Tohome Significant IndicatorsComplete Information Review: Allergies, Home Meds and Significant Events have been Reviewed and Verified with Patient/Familyyes ALLERGY, INTOLERANCE, ADVERSE EVENT: Allergies: iodine: Drug, Unknown, Active Electronic Signatures: Angelia Peters (KAREN) (Signed 20-Nov-2022 11:01) Authored: Initial Info, General Health, RSP Based Care, Substance, Health Mgmt, Relationship/Environ, Additional Information Last Updated: 20-Nov-2022 11:01 by Angelia Peters (KAREN) References: 1. Data Referenced From Risk Screen - Adult Emergency 20-Nov-2022 08:[address] [facility] Provider Note - ED v3on 06- Provider Note - ED v3 Provider Note: Results/Vital Signs: Pediatric Clinical Scoring (SERJIO) is no recent SERJIO charted on this account Chart Review: ED NOTES ED NOTES: 77-year-old male presents with progressive weakness over several months. Patient states during this time. He has become more symptomatic with generalized fatigue. Patient does void in his briefs. Patient states over the last 3 to 4 days he is extremely short of breath unless he lies on his left side. Patient denies any chest pain has had some diarrhea. Patient does have a mild cough which is nonproductive. Chest x-ray shows pneumonia. Patient was given 2 g of Rocephin and 1 g of Zithromax. Patient will also be hydrated with IV fluids to address his lactic acidosis. I will speak to Dr. De León about the patient's renal issue. Patient did give me a history of some issues in the past which she is not being seen for at present. Patient is being hydrated at present and will be admitted to the ICU for further treatment. HISTORY OF PRESENTING ILLNESS GENET is a 77 year old Male and was seen by me at 20-Nov-2022 08:19 for a chief complaint of shortness of breath (Brought to ED per [facility] with c/o SOB and weakness for last 3 days. He reports that things have been progressively getting worse. He is no longer able to care for himself or perform ADL's. Denies any pain. Reports that his SOB is better if lying in his L side. EKG done by [facility].)(1). The historian is the patientEMS. Triage Information: Most recent Vital Sign Value Date Temp (F): 97.4 11-20-2022 08:24 Temp (C): 36.3 11-20-2022 08:24 Heart Rate (beats/min): 103 11-20-2022 08:24 Respirations (breaths/min): 18 11-20-2022 08:24 SpO2 (%): 96 11-20-2022 08:24 BP Systolic (mm Hg): 147 11-20-2022 08:24 BP Diastolic (mm Hg): 78 11-20-2022 08:24 PAST MEDICAL HISTORY CURRENT OR FORMER SUBSTANCE USE: Tobacco/Nicotine Use: former smoker ALLERGIES/INTOLERANCES : Allergy Allergen: iodine Type: Drug Reaction: Unknown HEALTH HISTORY: No documented data. OUTPATIENT MEDICATIONS: Home Medications Review Status for Reconciliation: N/A Med Status: N/A No documented data. SIGNIFICANT EVENTS: Past Medical History Description:Gout Description:Prostate CA Description:Bladder CA Description:CPAP at hs Description:Self cath's REVIEW OF SYSTEMS CONSTITUTIONAL: POSITIVE for: malaise and weakness RESPIRATORY: POSITIVE for: cough and dyspnea MUSCULOSKELETAL: POSITIVE for: joint pain All other systems reviewed and are negative PHYSICAL EXAM Image Comments: 77-year-old male who appears weak and fatigued Skin is warm and dry Head normocephalic atraumatic Mucous membranes dry Neck is supple Breath sounds are decreased Heart is tachycardic Abdomen is soft and nontender Extremities are somewhat contractured. Patient does have hammertoe right foot Neurologically he is alert and oriented with no focal neurological deficits. CRITICAL CARE RESULTS: Recent Lab Results: I have reviewed these laboratory results: Comprehensive Metabolic Panel 20-Nov-2022 08:38:00 ResultValue Lab Comment: CRITICAL BIC BUN CALLED RB TO CHERIE DIAZ, 11/20/2022 09:32 Glucose, Serum 122 H NA 133 L K 5.3 CL 101 Bicarbonate, Serum 7 LL Anion Gap, Serum 30 H BUN 205 HH CREAT 16.92 H GFR Male 3 A Calcium, Serum 9.0 ALB 4.0 ALKP 84 T Pro 8.0 T Bili 0.3 Alanine Aminotransferase, Serum 7 L Aspartate Transaminase, Serum 5 L Complete Blood Count + Differential 20-Nov-2022 08:38:00 ResultValue White Blood Cell Count 15.2 H Red Blood Cell Count 3.89 L HGB 11.2 L HCT 35.9 L MCV 92 MCHC 31.2 L PLT 414 RDW-CV 14.0 Neutrophil % 85.3 Immature Granulocytes % 0.5 Lymphocyte % 7.2 Monocyte % 6.2 Eosinophil % 0.4 Basophil % 0.4 Neutrophil Count 12.99 H Lymphocyte Count 1.10 Monocyte Count 0.95 H Eosinophil Count 0.06 Basophil Count 0.06 Lactate, Level 20-Nov-2022 08:38:00 ResultValue Lactate, Level 2.6 H Magnesium, Serum 20-Nov-2022 08:38:00 ResultValue Magnesium, Serum 2.61 H Troponin I, High Sensitivity 20-Nov-2022 08:38:00 ResultValue Troponin I, High Sensitivity 14 Thyroid Stimulating Hormone, Serum 20-Nov-2022 08:38:00 ResultValue Thyroid Stimulating Hormone, Serum 4.08 H Radiology Results: Impression: Left basilar pneumonia with volume loss. Xray Chest 1 View [Nov 20 2022 8:52AM] VITAL SIGNS: T PRBP SpO2O2(LPM) %FiO2 Method 20-Nov-2022 09:00:[id number] 96 room air, no respiratory support 20-Nov-2022 08:24:[id number]/ 78 96 room air, no respiratory support 20-Nov-2022 08:14:[id number]/ 78 96 room air, no respiratory support PROGRESS NOTE EKG Post-Procedure Diagnosis: EKG INTERPRETATION: EKG Date/Time: 20-Nov-2022 08:30 Rate: 105 Impression: Sinus tachycardia with occasional PVCs Indication: dyspnea Rh (more content not included)... Normal [facility] Radiologyon 11-20-2022 XR Chest Single view Normal MP-U [employer] Work Phone: Risk Screen - Adult Emergenc yon 11-20-2022 Risk Screen - Adult Emergency Preferred Language: Preferred Language: Preferred Language for Discussing Health Care (patient/designee)Engl nohemi Patient Preferred Pharmacy: Patient Preferred Pharmacy Statement: I have reviewed and updated the patient's preferred pharmacy selection for today's visit. Advanced Directives: Advance Directive/DNRno Family Violence Adult: Abuse Screen: Are you or have you been threatened or abused physically, emotionally, or sexually by anyoneno Learning Assessment (Patient): Learning Assessment (Patient): Patient is Able to be Assessed for Learningyes Factors Influencing Readiness to Learnacuteness of illness Factors that Impact Ability to Learnnone Devices/Methods Used to Communicatenone Learning Preferencesverbal instruction; written material Cultural Considerationsnone Developmental Considerationsnone Uatsdin Considerationsnone Learning Assessment (Other Learner): Learning Assessment (Other Learner): Other learner availableno Pressure Injury/TB/Substance: Pressure Injury: Pressure Injury Present on Admissionno Do you have a coughno Smoking Statusformer smoker Alcohol Usedenies Drug Usedenies Admission Risk Screen: Significant IndicatorsComplete CAGE: CAGE: Is this an injured patient at a Trauma Center ([facility]): no Electronic Signatures: Cherie Diaz (KAREN) (Signed 20-Nov-2022 08:29) Authored: Preferred Language, Patient Preferred Pharmacy, Advanced Directives, Family Violence Adult, Learning Assessment (Patient), Learning Assessment (Other Learner), Pressure Injury/TB/Substance, Pressure Injury, CAGE Last Updated: 20-Nov-2022 08:29 by Cherie Diaz (RN) Normal [facility] T4 - Free Thyroxine, Serumon 11-20-2022 Free T4 [Mass/Vol] 0.73 ng/dL See Below MP-Scott mikePllop[employer]it Work Phone: Comment on above: Reference Range: 0.6 1 - 1.12 Thyroxine Free testing is performed using different testing methodology at [facility] than at other [facility]. Direct result comparisons should only be made within the same method.. Biotin can cause falsely elevated free T4 results. Patients taking a Biotin dose of up to 10 mg/day should refrain from taking Biotin for 24 hours before sample collection. Patient taking a Biotin dose of >10 mg/day should consult with their physician or the laboratory before the blood draw. THYROXINE,FREEon 11-20-2022 THYROXINE,FREE 0.73 ng/dL Normal 0.61 - 1.[address] [facility] Comment on above: Result Comment: Thyr oxine Free testing is performed using different testing methodology at [facility] than at other [facility]. Direct result comparisons should only be made within the same method. . Biotin can cause falsely elevated free T4 results. Patients taking a Biotin dose of up to 10 mg/day should refrain from taking Biotin for 24 hours before sample collection. Patient taking a Biotin dose of >10 mg/day should consult with their physician or the laboratory before the blood draw. Performed By: #### C BC #### [address] [place] [address] TROPONIN I, HIGH SENSITIVITY on 11-20-2022 TROPONIN I, HIGH SENSITIVITY 14 ng/L Normal 0 - [address] [facility] Comment on above: Result Comment: . Less than 99th percentile of normal range cutoff- Female and children under 18 years old <14 ng/L; Male <21 ng/L: Negative Repeat testing should be performed if clinically indicated. . Female and children under 18 years old 14-50 ng/L; Male 21-50 ng/L: Consistent with possible cardiac damage and possible increased clinical risk. Serial measurements may help to assess extent of myocardial damage. . >50 ng/L: Consistent with cardiac damage, increased clinical risk and myocardial infarction. Serial measurements may help assess extent of myocardial damage. . NOTE: Children less than 1 year old may have higher baseline troponin levels and results should be interpreted in conjunction with the overall clinical context. . NOTE: Troponin I testing is performed using a different testing methodology at [facility] than at other [facility]. Direct result comparisons should only be made within the same method. Performed By: #### T [facility] #### [address] [address] Tropinin I.cardiac panel High sensitivity method 14 ng/L 0 - 20 ZP-Guyqawg[facility]Ans [facility] Work Phone: Comment on above: .Less than 99th perc entile of normal range cutoff-Female and children under 18 years old <14 ng/L; Male <21 ng/L: NegativeRepeat testing should be performed if clinically indicated. .Female and children under 18 years old 14-50 ng/L; Male 21-50 ng/L:Consistent with possible cardiac damage and possible increased clinical risk. Serial measurements may help to assess extent of myocardial damage. .>50 ng/L: Consistent with cardiac damage, increased clinical risk andmyocardial infarction. Serial measurements may help assess extent of myocardial damage. . NOTE: Children less than 1 year old may have higher baseline troponin levels and results should be interpreted in conjunction with the overall clinical context. .NOTE: Troponin I testing is performed using a different testing methodology at [facility] than at other [facility]. Direct result comparisons should only be made within the same method. TSHon 11-20-2022 TSH Qn 4.08 m[IU]/L High 0.44 - 3.[address] [facility] Comment on above: Result Comment: TSH testing is performed using different testing methodology at [facility] than at other [facility]. Direct result comparisons should only be made within the same method. Performed By: #### T [facility] ####[address] [address] TSH - Thyroid Stimulating Ho rmone, Serumon 11-20-2022 TSH Qn 4.08 m[IU]/L above high threshold See Below AK-Sftsrtc-Ook land Work Phone: Comment on above: Reference Range: 0.4 4 - 3.98 TSH testing is performed using different testing methodology at [facility] than at other [facility]. Direct result comparisons should only be made within the same method. Triage - EDon 11-20-2022 Triage - ED Quick Triage: The patient and/or guardian verbally acknowledges placement for services into the following (when Urgent Care Service hours are operating):emergency department Chart Review: ARRIVAL INFORMATION Mode of Arrival: ambulance Agency Name: [facility] CHIEF COMPLAINT GENET BOOTH is a Male patient with a chief complaint of shortness of breath (Brought to ED per [facility] with c/o SOB and weakness for last 3 days. He reports that things have been progressively getting worse. He is no longer able to care for himself or perform ADL's. Denies any pain. Reports that his SOB is better if lying in his L side. EKG done by [facility].). Triage Date/Time: 20-Nov-2022 08:14 ARCELIA: 2 Pain Rating (0-10): 0 = None Pain location: denies Vital Signs: Temperature: 97.4F ( 36.3C) taken temporal Blood Pressure: 147/78 Mean: Heart Rate: 103 Respiratory Rate: 18 Pulse Oximetry: 96% on room air, no respiratory support. Weight: 242.2 pounds. Calculated 109.9 kg. [place] Coma Scale: Best Eye Response: (E4) spontaneous Best Motor Response: (M6) obeys commands Best Verbal Response: (V5) oriented Aashish Score: 15 Cough lasting greater than 3 weeks: no Allergies: yes Patient has homicidal thoughts: no Symptoms Are POSITIVE For: dyspnea and malaise. Symptoms Are Negative For: body aches, chest pain, chills, congestion, cough, diaphoresis, fever and headache. Risk Screens Suicide Risk Screen In the Past Month: Have you wished you were or wished you could go to sleep and not wake up no In the Past Month: Have you had any actual thoughts of killing yourself no In Your Lifetime: Have you ever done anything, started to do anything, or prepared to do anything to end your life no Aguayo Fall Scale Screening Has the patient fallen before (or is the patient in the ED as a result of a fall) has not had a fall Does the patient have an impaired gait does not have impaired gait Is the patient cognitively impaired not cognitively impaired Interventions: Aguayo Fall Interventions: LOW INTERVENTIONS: *patient oriented to surroundings and call system, * patient/family falls education completed and documented, *patients fall status communicated during bedside handoff, *whiteboard updated, *mode of toileting discussed with patient, *bed in low position with brakes locked, *call light in reach, * non-skid footwear TRAVEL HISTORY Travel History Coronavirus Screening: no exposure or symptoms Travel Exposure History: NO travel to International locations in the past 30 days PAIN Pain Scale Used: JOSEPHINE Pain Rating (0-10): 0 = None Past Medical History: Past Medical History Reviewedyes Self cath's: Past Medical History, Active CPAP at hs: Past Medical History, Active Bladder CA: Past Medical History, Active Prostate CA: Past Medical History, Active Gout: Past Medical History, Active Electronic Signatures: Cherie Diaz (RN) (Signed 20-Nov-2022 08:28) Authored: Quick Triage, Risk Screens, Pain, Travel History, Chart Review, Scores, Past Medical History Last Updated: 20-Nov-2022 08:28 by Cherie Diaz (RN) Normal [facility] UA MICROSCOPICon 11-20-2022 Mucus Ql (Urine sed) 1+ /LPF Normal [facility] Comment on above: Performed By: #### T [facility] #### [address] [address] RBC 80 /HPF Abnormal 0-[address] [facility] Comment on above: Performed By: #### T [facility] #### [address] [address] SQUAMOUS EPITH. CELLS 1 /HPF Normal [facility] Comment on above: Performed By: #### T [facility] #### [address] [address] WBC (U) [#/Vol] /uL Abnormal 0-[address] [facility] Comment on above: Performed By: #### T [facility] #### [address] [address] URINALYSIS WITH CULTURE IF I NDICATEDon 11-20-2022 Appearance (U) HAZY Normal CLEAR [facility] Comment on above: Performed By: #### C BC #### [address] [address] Bilirubin Ql (U) Negative Normal NEGATIVE [facility] Comment on above: Performed By: #### C BC #### [address] [address] Color (U) Yellow Normal STRAW,YELLOW [facility] Comment on above: Performed By: #### C BC #### [address] [address] Glucose Ql (U) Negative Normal NEGATIVE [facility] Comment on above: Performed By: #### C BC #### [place] [address] Hemoglobin Ql (U) LARGE(3+) Abnormal NEGATIVE [facility] Comment on above: Performed By: #### C BC #### [place] [address] Ketones Ql (U) 5(TRACE) Abnormal NEGATIVE [facility] Comment on above: Performed By: #### C BC #### [place] [address] Leukocyte esterase Test strip Ql (U) MODERATE(2+) Abnormal NEGATIVE [facility] Comment on above: Performed By: #### C BC #### [place] [address] Nitrite Ql (U) Negative Normal NEGATIVE [facility] Comment on above: Performed By: #### C BC #### [place] [address] pH (U) 6.0 [pH] Normal 5.0 - 8.[address] [facility] Comment on above: Performed By: #### C BC #### [place] [address] Protein Ql (U) 100(2+) Abnormal NEGATIVE [facility] Comment on above: Performed By: #### C BC #### [id number] Specific gravity (U) [Rel density] 1.013 Normal 1.005 - 1.[address] [facility] Comment on above: Performed By: #### C BC #### [address] [address] Urobilinogen (U) [Mass/Vol] mg/dL Normal 0.0 - 1.[address] [facility] Comment on above: Performed By: #### C BC #### [id number] [place] [address] Color (U) Yellow See Below OK[facility]jaieu[facility]Hzo [facility] Work Phone: Comment on above: Reference Range: STR AW,YELLOW Glucose Ql (U) Negative NEGATIVE [employer] Work Phone: Ketones Ql (U) 5(TRACE) Abnormal NEGATIVE [employer] Work Phone: Leukocyte esterase Test strip Ql (U) MODERATE(2+) Abnormal NEGATIVE [facility] Work Phone: pH (U) 6.0 [pH] 5.0 - 8.0 CM[facility]Ede [facility] Work Phone: Protein (U) [Mass/Vol] 100(2+) Abnormal NEGATIVE [employer] Work Phone: RBC (U) [#/Vol] LARGE(3+) Abnormal NEGATIVE [employer] Work Phone: Specific gravity (U) [Rel density] 1.013 1 See Below [facility]Faqim[facility]Jyg [facility] Work Phone: Comment on above: Reference Range: 1.0 05 - 1.035 URINALYSIS WITH CULTURE IF INDICATED Negative NEGATIVE [employer] Work Phone: URINALYSIS WITH CULTURE IF INDICATED <2.0 0.0 - 1.9 [employer] Work Phone: URINALYSIS WITH CULTURE IF INDICATED HAZY CLEAR [employer] Work Phone: URINE CULTURE,BACTERIALon URINE CULTURE,BACTERIAL PATIENT: GENET BOOTH LOCATION: [facility]#: [id number] : 47 AGE: SEX: M ORDERED BY: DAVEY CARIAS SOURCE: URINE COLLECTED: 11/20/22 18:29 ANTIBIOTICS AT JUDI.: RECEIVED : 11/21/22 01:02 SITE: R E S U L T S URINE CULTURE,BACTERIAL FINAL 11/21/22 17:27 NO SIGNIFICANT GROWTH. Normal [facility] Comment on above: Performed By: #### U [facility] ####[id number] [place] [address] Urinalysis, Microscopicon Urinalysis, Microscopic 1+ [facility]Bht [facility] Work Phone: Urinalysis, Microscopic 1 {/HPF} WF[facility]Xjgvbpf-Nvf land Work Phone: Urinalysis, Microscopic 80 {/HPF} Abnormal 0-5 QX-Qzblplp-Dzq land Work Phone: Urinalysis, Microscopic >182 Abnormal 0-5 GQ-Zvvcmhk-Nhf land Work Phone: URINE MICROSCOPICon 05-02-20 21 Bacteria LM.HPF (Urine sed) [#/Area] TRACE Abnormal NEGATIVE [facility] Casts LM.LPF (Urine sed) [#/Area] NONE NONE /LPF [facility] Crystals LM Nom (Urine sed) NONE NONE [facility] Epithelial cells LM Ql (Urine sed) 5 TO 10 /HPF [facility] Interpretation and review of laboratory results Abnormal [facility] Mucus Ql (Urine sed) Negative NEGATIVE [facility] RBC LM.HPF (Urine sed) [#/Area] TOO NUMEROUS TO COUNT Abnormal NEGATIVE /HPF [facility] Urine sediment comments LM [place]enton (Urine sed) PHYSICIAN REQUESTED CULTURE [facility] WBC LM.HPF (Urine sed) [#/Area] 1 TO 5 NEGATIVE /HPF [facility] BASIC METABOLIC PANELOrdered By: Chirag Hoang on 12-20-2020 Anion gap [Moles/Vol] 9 mmol/L [facility] Calcium [Mass/Vol] 9.1 mg/dL [facility] Chloride [Moles/Vol] 108 mmol/L High [facility] CO2 [Moles/Vol] 23 mmol/L [facility] Creatinine [Mass/Vol] 1.71 mg/dL High [facility] GFR COMMENT Average GFR for 70+ years old = 75. [facility] Comment on above: Chronic Kidney disea se, GFR = <60. Kidney failure, GFR = <15. The GFR estimate is not adjusted for extreme body surface area or acute process, nor has it been validated for women or ethnic groups other than and . GFR/1.73 sq M.predicted among blacks MDRD (S/P/Bld) [Vol rate/Area] 51 mL/min/{1.73_m2} ml/min/1.73s q.m [facility] GFR/1.73 sq M.predicted among non-blacks MDRD (S/P/Bld) [Vol rate/Area] 42 mL/min/{1.73_m2} ml/min/1.73s q.m [facility] Glucose post fast [Mass/Vol] 127 mg/dL High [facility] Comment on above: NORMAL <100 mg/dL PREDIABETES 101-126 mg/dL DIABETES 126 mg/dL or higher Interpretation and review of laboratory results Abnormal [facility] Potassium [Moles/Vol] 4.3 mmol/L [facility] Sodium [Moles/Vol] 140 mmol/L [facility] Urea nitrogen [Mass/Vol] 31 mg/dL High [facility] CBC, EDIF, PLATELETOrdered B y: Chirag Hoang on 12-20-2020 ABSOLUTE BASOPHIL COUNT 0.1 10*3/uL 0.0 - 0.2 10*3/uL [facility] Basophils/100 WBC (Bld) 0.7 % 0.0 - 2.0 % [facility] Differential cell count method Nom (Bld) AUTO DIFF % [facility] Eosinophils (Bld) [#/Vol] 0.20 10*3/uL 0.0 - 0.7 10*3/uL [facility] Eosinophils/100 WBC (Bld) 2.4 % 0.0 - 11.0 % [facility] Erythrocyte distribution width (RBC) [Ratio] 15.9 % High 11.5 - 14.5 % [facility] Hematocrit (Bld) [Volume fraction] 43.7 % 42.0 - 52.0 % [facility] Hemoglobin (Bld) [Mass/Vol] 14.3 g/dL [facility] Interpretation and review of laboratory results Abnormal [facility] Lymphocytes (Bld) [#/Vol] 1.50 10*3/uL 1.2 - 3.4 10*3/uL [facility] Lymphocytes/100 WBC (Bld) 18.3 % Low 20.0 - 55.0 % [facility] MCH (RBC) [Entitic mass] 28.4 pg 26.0 - 35.0 PG [facility] MCHC (RBC) [Mass/Vol] 32.7 g/dL [facility] MCV (RBC) [Entitic vol] 87.0 fL [facility] Monocytes (Bld) [#/Vol] 0.7 10*3/uL 0.0 - 0.7 10*3/uL [facility] Monocytes/100 WBC (Bld) 8.8 % 0.0 - 10.0 % [facility] Neutrophils (Bld) [#/Vol] 5.7 10*3/uL 1.4 - 6.5 10*3/uL [facility] Neutrophils/100 WBC (Bld) 69.8 % 37.0 - 75.0 % [facility] Platelet mean volume (Bld) [Entitic vol] 10.0 fL [facility] Platelets (Bld) [#/Vol] 240 10*3/uL 130.0 - 400.0 10*3/uL [facility] RBC (Bld) [#/Vol] 5.02 10*6/uL 4.0 - 6.1 10*6/uL [facility] WBC (Bld) [#/Vol] 8.2 10*3/uL 3.6 - 11.0 10*3/uL [facility] URINALYSIS, MACROOrdered By: Chirag Hoang on 12-20-2020 Bilirubin Ql (U) Negative NEGATIVE [facility] Clarity (U) CLEAR CLEAR [facility] Color (U) YELLOW YELLOW [facility] Glucose Test strip (U) [Mass/Vol] Negative NEGATIVE mg/dl [facility] Hemoglobin Ql (U) MODERATE Abnormal NEGATIVE [facility] Interpretation and review of laboratory results Abnormal [facility] Ketones (U) [Mass/Vol] Negative NEGAT AUDI mg/dl [facility] Leukocyte esterase Test strip Ql (U) SMALL Abnormal NEGATIVE [facility] Nitrite Ql (U) Negative NEGATIVE [facility] pH (U) 5.5 [pH] [facility] Protein Ql (U) >300 Abnormal NEGATIVE mg/dl [facility] Specific gravity (U) [Rel density] >1.030 High [facility] Urobilinogen (U) [Mass/Vol] 0.2 mg/dL [facility] POCT URINALYSIS DIPSTICK AUT OMATED W/O SCOPOrdered By: Gifty Landrum on 12-12-2020 Amorphous sediment LM Ql (Urine sed) [facility] Appearance (U) clear [facility] Bacteria LM Ql (Urine sed) [facility] Bilirubin Ql (U) Negative [facility] Casts LM.LPF (Urine sed) [#/Area] [facility] Color (U) yellow [facility] Crystals LM Nom (Urine sed) [facility] Epithelial cells.squamous LM.HPF (Urine sed) [#/Area] [facility] Flow cytometry specialist review [place]enton (Unsp spec) [Interp] [facility] Glucose Auto test strip (U) [Mass/Vol] Negative mg/dL [facility] Ketones [Mass/Vol] Negative mg/dL [facility] Leukocyte esterase Qn (U) [facility] Leukocyte esterase Test strip Ql (U) large [facility] Nitrite Ql (U) Negative [facility] pH (U) 6.0 [pH] [facility] Protein Ql (U) 100 mg/dL [facility] RBC LM.HPF (Urine sed) [#/Area] [facility] RBC Ql (U) moderate [facility] Specific gravity (U) [Rel density] >=1.030 [facility] Transitional cells LM Ql (Urine sed) [facility] Urobilinogen Qn (U) 0.2 [facility] WBC LM.HPF (Urine sed) [#/Area] [facility] CYSTOSCOPYOrdered By: Bam hannah on 11-23-2020 Caroline Brumfield LPN 11/23/2020 3:48 PM CYSTOSCOPY Date/Time: 11/23/2020 2:00 PM Performed by: Bam Lambert MD Authorized by: Bam Lambert MD A resident (Caroline Brumfield LPN) was present and assisted with the procedure. The attending physician was present for the entire procedure. Pre-Procedure: Indications: bladder cancer Detailed information of all possible complications and side effects were discussed with the patient, these include but not only; UTI, sepsis, hematuria, incontinence, urethral injury and cardiovascular complications. Informed consent was obtained. Does this procedure require a [place] Protocol? Yes. [place] Protocol is required. The patient was not given antibiotics. Urine was collected for testing. Procedure: Procedure performed: cystoscopy and stent removal The patient was placed supine with all pressure points well padded. Patient was prepped and draped in the usual sterile fashion with Betadine. lidocaine 2% topical gel was inserted into urethra for local anesthesia. A penile clamp was not applied. The flexible cystoscope was lubricated and placed into the urethral tract under direct visualization. A 360 survey of the bladder was performed. Findings: The urinary meatus appeared normal. [facility] GENERAL PROCEDUREOrdered By: Bam Lambert on 11-23-2020 Bam Lambert MD - 11/23/2020 2:00 PM EDT Preprocedure diagnosis Bladder tumor Left hydronephrosis Urethral stricture Postprocedure diagnosis Same as above. Procedure Flexible Cystourethroscopy with removal of left ureteral stent Attending surgeon Bam Lambert MD Complications None Indications 75 y.o. male undergoing a flexible cystoscopy for the above mentioned indications. Informed consent was obtained. Findings Cystoscope was passed into the patients's bladder. The stent was identified and removed without difficulty. The patient tolerated the procedure well. Persistent inflammation and debris noted. Stricture was patent The pathology is negative for malignancy. Today's PVR is 53 cc. Fluconazole extended for 14 days,appropriate use and side effects reviewed. Follow up in 2 weeks with a UA and PVR. [facility] No Panel InformationOrdered By: Bam Lambert on 11-23-2020 [facility] POCT URINALYSIS DIPSTICK AUT OMATED W/O SCOPOrdered By: Bam Lambert on 11-23-2020 Amorphous sediment LM Ql (Urine sed) [facility] Appearance (U) clear [facility] Bacteria LM Ql (Urine sed) [facility] Bilirubin Ql (U) Negative [facility] Casts LM.LPF (Urine sed) [#/Area] [facility] Color (U) yellow [facility] Crystals LM Nom (Urine sed) [facility] Epithelial cells.squamous LM.HPF (Urine sed) [#/Area] [facility] Flow cytometry specialist review [place] (Unsp spec) [Interp] [facility] Glucose Auto test strip (U) [Mass/Vol] Negative mg/dL [facility] Ketones [Mass/Vol] Negative mg/dL [facility] Leukocyte esterase Qn (U) [facility] Leukocyte esterase Test strip Ql (U) large [facility] Nitrite Ql (U) Negative [facility] pH (U) 5.0 [pH] [facility] Protein Ql (U) 100 mg mg/dL [facility] RBC LM.HPF (Urine sed) [#/Area] [facility] RBC Ql (U) large [facility] Specific gravity (U) [Rel density] >=1.030 [facility] Transitional cells LM Ql (Urine sed) [facility] Urobilinogen Qn (U) 0.2 [facility] WBC LM.HPF (Urine sed) [#/Area] [facility] FUNGUS CULTUREon 11-20-2020 FUNGUS CULTURE Final report Abnormal [facility] Comment on above: Result Comment: PERF ORMED AT [facility] CORRECTED ON 11/20 AT 1106: PREVIOUSLY REPORTED Preliminary report Performed By: #### Z EZIO LISA #### Testing performed at [facility] [address] [place] [address] POCT URINALYSIS DIPSTICK AUT OMATED W/O SCOPOrdered By: Bam Lambert on 11-01-2020 Amorphous sediment LM Ql (Urine sed) [facility] Appearance (U) cloudy [facility] Bacteria LM Ql (Urine sed) [facility] Bilirubin Ql (U) Negative [facility] Casts LM.LPF (Urine sed) [#/Area] [facility] Color (U) yellow [facility] Crystals LM Nom (Urine sed) [facility] Epithelial cells.squamous LM.HPF (Urine sed) [#/Area] [facility] Flow cytometry specialist review [place] (Unsp spec) [Interp] [facility] Glucose Auto test strip (U) [Mass/Vol] Negative mg/dL [facility] Ketones [Mass/Vol] Negative mg/dL [facility] Leukocyte esterase Qn (U) [facility] Leukocyte esterase Test strip Ql (U) large [facility] Nitrite Ql (U) Negative [facility] pH (U) 5.5 [pH] [facility] Protein Ql (U) 100 mg/dL [facility] RBC LM.HPF (Urine sed) [#/Area] [facility] RBC Ql (U) large [facility] Specific gravity (U) [Rel density] >1.030 [facility] Transitional cells LM Ql (Urine sed) [facility] Urobilinogen Qn (U) 0.2 [facility] WBC LM.HPF (Urine sed) [#/Area] [facility] *RFLX-FUNGUSon 10-26-2020 RESULT 1 Sharan glabrata Abnormal [facility] Comment on above: Result Comment: PERF ORMED AT [facility] Performed By: #### Z CAYLA HOLGUIN #### Testing performed at [facility] [address] [place] [address] [place] [address] FLUID CULTUREon 10-17-2020 FLUID CULTURE SPECIMEN DESCRIPTION KIDNEY SPECIAL REQUESTS left kidney GRAM SMEAR NUMEROUS * Result Note: WBC'S SEEN * * Result Note: OCCASIONAL * * Result Note: YEAST * CULTURE SHARAN GLABRATA * Result Note: MODERATE GROWTH * * Result Note: Testing performed at [place] [address] * REPORT STATUS 10/21/2020 * Result Note: FINAL * Normal [facility] Comment on above: Performed By: #### F LDC #### Testing performed at [facility] [address] [place] [address] Testing performed at [facility] [address] [place] [address] NOVEL CORONAVIRUSon 10-17-19 21 NARRATIVE This test was performed using isothermal JACK and has been approved as Emergency Use Authorization (EUA) for the qualitative detection [id number] nucleic acid. Normal [facility] SARS-CoV-2 (COVID-19) RNA JACK+probe Ql (Unsp spec) Not detected Normal NOT DETECTED [facility] Comment on above: Result Comment: Nega tive results do not preclude SARS-CoV-2 infection and should not be used as the sole basis for treatment or other patient management decisions. Optimum specimen types and timing for peak viral levels during infections caused by SARS-CoV-2 has not been determined. The possibility of a false negative result should especially be considered if the patient's recent exposures or clinical presentation suggest that SARS-CoV-2 infection is probable, and diagnostic tests for other causes of illness (e.g., other respiratory illness) are negative. Collection of a new specimen and re-testing may be necessary if the patient is critically ill or clinically deteriorating. CYSTOSCOPYOrdered By: Bam hannah on 09-15-2020 Maite Valenzuela 09/15/2020 10:05 AM CYSTOSCOPY Date/Time: 09/15/2020 10:00 AM Performed by: Bam Lambert MD Authorized by: Bam Lambert MD The attending physician was present for the entire procedure. Pre-Procedure: Indications: recurrent UTIs Detailed information of all possible complications and side effects were discussed with the patient, these include but not only; UTI, sepsis, hematuria, incontinence, urethral injury and cardiovascular complications. Informed consent was obtained. Does this procedure require a [place] Protocol? Yes. [place] Protocol is required. The patient was given one dose of antibiotics. Urine was collected for testing. Urine dip positive for blood and positive for leukocyte esterase. Negative for nitrates. Procedure: Procedure performed: cystoscopy The patient was placed supine with all pressure points well padded. Patient was prepped and draped in the usual sterile fashion with Betadine. lidocaine 2% topical gel was inserted into urethra for local anesthesia. A penile clamp was not applied. The flexible cystoscope was lubricated and placed into the urethral tract under direct visualization. A 360 survey of the bladder was performed. Findings: The urinary meatus appeared normal. 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 male undergoing a flexible cystoscopy and transrectal ultrasound for the above mentioned indications. Informed consent was obtained. FINDINGS: Bulbar urethral stricture identified, through which the scope would not pass. Bam Lambert MD [facility] POCT URINALYSIS DIPSTICK AUT OMATED W/O SCOPOrdered By: Bam Lambert on 09-15-2020 Amorphous sediment LM Ql (Urine sed) [facility] Appearance (U) cloudy [facility] Bacteria LM Ql (Urine sed) [facility] Bilirubin Ql (U) Negative [facility] Casts LM.LPF (Urine sed) [#/Area] [facility] Color (U) yellow [facility] Crystals LM Nom (Urine sed) [facility] Epithelial cells.squamous LM.HPF (Urine sed) [#/Area] [facility] Flow cytometry specialist review [place] (Unsp spec) [Interp] [facility] Glucose Auto test strip (U) [Mass/Vol] Negative mg/dL [facility] Interpretation and review of laboratory results Abnormal [facility] Ketones [Mass/Vol] TRACE mg/dL [facility] Leukocyte esterase Qn (U) [facility] Leukocyte esterase Test strip Ql (U) LARGE [facility] Nitrite Ql (U) Negative [facility] pH (U) 7.5 [pH] Abnormal [facility] Protein Ql (U) Negative mg/dL [facility] RBC LM.HPF (Urine sed) [#/Area] [facility] RBC Ql (U) [facility] Specific gravity (U) [Rel density] 1.015 [facility] Transitional cells LM Ql (Urine sed) [facility] Urobilinogen Qn (U) 0.2 [facility] WBC LM.HPF (Urine sed) [#/Area] [facility] TRANSRECTAL ULTRASOUNDOrdere d By: Bam Lambert on 09-15-2020 Maite Valenzuela 09/15/2020 10:05 AM TRANSRECTAL ULTRASOUND Date/Time: 09/15/2020 10:00 AM Performed by: Bam Lambert MD Authorized by: Bam Lambert MD The attending physician was present for the entire procedure. Pre-Procedure Details: Indications: abnormal digital rectal exam After discussing his options the patient decided to proceed with prostate ultrasound only. Possible complications, risks and benefits were discussed with the patient and consent was obtained. Does this procedure require a [place] Protocol? Yes, final verifications complete. Procedure Details: The patient was placed in the left lateral position with lower extremities flexed and the area was prepped. 2% lidocaine jelly was injected per rectum. A digital rectal exam was performed which was Little1 CT ABDOMEN/PELVIS WITHOUT CO NTRASTon 09-12-2020 IMPRESSION: 1. Moderate left-sided hydronephrosis and hydroureter. 2. There appears to be asymmetric mural thickening involving the left lateral aspect of the bladder, extending posteriorly to the region of the left ureterovesicular junction. This is concerning for bladder malignancy. 3. There are mildly enlarged retroperitoneal lymph nodes may suggest metastatic disease. 4. Left-sided nephrolithiasis. 5. Colonic diverticulosis without evidence of acute diverticulitis. Little1 EXAM: CT ABDOMEN/PELVIS WITHOUT CONTRAST 09/12/2020 2:40 PM EDT HISTORY: Bladder mass. COMPARISON: Renal ultrasound 09/01/2020 TECHNIQUE: Unenhanced axial images were obtained through the abdomen and pelvis. Coronal and sagittal reconstructions were generated. Dose reduction techniques were achieved by using automated exposure control and/or adjustment of mA and/or kV according to patient size and/or use of iterative reconstruction technique. FINDINGS: There are no acute abnormalities in the visualized lung bases. There is mild scarring or atelectasis. There are no obvious masses in the liver.There are no obvious masses in the spleen. The pancreas appears grossly normal in configuration with no adjacent inflammatory changes. There are no large calcified stones in the gallbladder. Bilateral adrenal glands appear normal. There are no stones in the right kidney. There is no right-sided hydronephrosis. There are no stones in the right ureter. There are small stones in the left kidney measuring up to 5 mm. There is moderate left-sided hydronephrosis and hydroureter. There are no stones in the left ureter. There are no stones in the bladder. Evaluation of the bladder is limited due to lack of intravenous contrast and because of some underdistention. There does appear to be asymmetric bladder wall thickening involving the left lateral aspect of the bladder. This appears to extend posteriorly in the region of the left UVJ. There is no free fluid, free air, or abscesses. There are a few mildly enlarged left-sided retroperitoneal lymph nodes. One node measures approximately 1.7 cm (series 2 image #236). No evidence of intestinal obstruction. There is colonic diverticulosis without evidence of acute diverticulitis. The abdominal aorta is normal in caliber. There is mild atherosclerotic calcification. No acute bony abnormalities. No aggressive appearing bony lesions. Little1 User, Interfaces - 09/12/2020 3:20 PM EDT EXAM: CT ABDOMEN/PELVIS WITHOUT CONTRAST 09/12/2020 2:40 PM EDT HISTORY: Bladder mass. COMPARISON: Renal ultrasound 09/01/2020 TECHNIQUE: Unenhanced axial images were obtained through the abdomen and pelvis. Coronal and sagittal reconstructions were generated. Dose reduction techniques were achieved by using automated exposure control and/or adjustment of mA and/or kV according to patient size and/or use of iterative reconstruction technique. FINDINGS: There are no acute abnormalities in the visualized lung bases. There is mild scarring or atelectasis. There are no obvious masses in the liver.There are no obvious masses in the spleen. The pancreas appears grossly normal in configuration with no adjacent inflammatory changes. There are no large calcified stones in the gallbladder. Bilateral adrenal glands appear normal. There are no stones in the right kidney. There is no right-sided hydronephrosis. There are no stones in the right ureter. There are small stones in the left kidney measuring up to 5 mm. There is moderate left-sided hydronephrosis and hydroureter. There are no stones in the left ureter. There are no stones in the bladder. Evaluation of the bladder is limited due to lack of intravenous contrast and because of some underdistention. There does appear to be asymmetric bladder wall thickening involving the left lateral aspect of the bladder. This appears to extend posteriorly in the region of the left UVJ. There is no free fluid, free air, or abscesses. There are a few mildly enlarged left-sided retroperitoneal lymph nodes. One node measures approximately 1.7 cm (series 2 image #[id number]). No evidence of intestinal obstruction. There is colonic diverticulosis without evidence of acute diverticulitis. The abdominal aorta is normal in caliber. There is mild atherosclerotic calcification. No acute bony abnormalities. No aggressive appearing bony lesions. IMPRESSION IMPRESSION: 1. Moderate left-sided hydronephrosis and hydroureter. 2. There appears to be asymmetric mural thickening involving the left lateral aspect of the bladder, extending posteriorly to the region of the left ureterovesicular junction. This is concerning for bladder malignancy. 3. There are mildly enlarged retroperitoneal lymph nodes may suggest metastatic disease. 4. Left-sided nephrolithiasis. 5. Colonic diverticulosis without evidence of acute diverticulitis. [facility] POCT URINALYSIS DIPSTICK AUT OMATED W/O SCOPon 09-06-2020 Amorphous sediment LM Ql (Urine sed) [facility] Appearance (U) Turbid [facility] Bacteria LM Ql (Urine sed) [facility] Bilirubin Ql (U) Small [facility] Casts LM.LPF (Urine sed) [#/Area] [facility] Color (U) Yellow [facility] Crystals LM Nom (Urine sed) [facility] Epithelial cells.squamous LM.HPF (Urine sed) [#/Area] [facility] Flow cytometry specialist review [place] (Unsp spec) [Interp] [facility] Glucose Auto test strip (U) [Mass/Vol] Negative mg/dL [facility] Interpretation and review of laboratory results Abnormal [facility] Ketones [Mass/Vol] Trace mg/dL [facility] Leukocyte esterase Qn (U) [facility] Leukocyte esterase Test strip Ql (U) Moderate [facility] Nitrite Ql (U) Negative [facility] pH (U) 7.5 [pH] Abnormal [facility] Protein Ql (U) 2000+ mg/dL [facility] RBC LM.HPF (Urine sed) [#/Area] [facility] RBC Ql (U) Large [facility] Specific gravity (U) [Rel density] 1.010 [facility] Transitional cells LM Ql (Urine sed) [facility] Urobilinogen Qn (U) 0.2 [facility] WBC LM.HPF (Urine sed) [#/Area] [facility] ECHOCARDIOGRAMon 09-01-2020 APPROVED REPORT Other Information Study Quality: Adequate Conclusion Technically limited study, normal RV/LV size, mild moderate concentric LVH with ejection fraction greater than 60%. Trivial to mild tricuspid regurgitation with borderline pulmonary hypertension at 35 mmHg. No significant pericardial abnormality. Mild left atrial enlargement, LVH and mild ascending aortic dilatation suggest component of hypertensive cardiovascular disease. Left Ventricle The left ventricle is normal size. Left ventricular systolic function is normal. Mild to moderate concentric left ventricular hypertrophy. There is normal LV segmental wall motion. Transmitral Doppler flow pattern suggests impaired LV relaxation. LVEF is 60-65%. Right Ventricle The right ventricle is normal size. Right ventricular systolic function is grossly normal. Atria Left atrium is mildly dilated. Right atrium is borderline dilated. Aortic Valve The aortic valve is normal in structure. There is no aortic valvular stenosis. No aortic regurgitation is present. Mitral Valve The mitral valve is normal in structure. Trace mitral regurgitation. Tricuspid Valve The tricuspid valve is normal in structure. Trace to mild tricuspid regurgitation. The RVSP is 35-40 mmHg. Pulmonic Valve The pulmonary valve is normal in structure. Great Vessels The aortic root is normal in size. The ascending aorta is mildly dilated. Pericardium Trace pericardial effusion. EXAM: Comprehensive 2D, Doppler, and color-flow Echocardiogram with contrast Echo Enhancing Agent Indication: Endocardial border delineation Agent(s) / Amount(s) Used: Definity 4 cc 2D Dimensions IVSd 1.3 cm M: 0.6-1.0 LVEF (Moreno's) 66.17 % M: 52 - 72 PWd 1.3 cm M: 0.6 - 1.0 EF AP4-a2DQ 65.42 % LVDd 5.2 cm M: 4.2 - 5.8 EF AP2-a2DQ 68.53 % LVDs 3.27 cm M: 2.5 - 4.0 EF BP-a2DQ 66.17 % Aortic Root 3.20 cm M: 3.1 - 3.7 LVSV 46 mL Aortic Root Index 1.3 cm/m2 LV Volume 135.93 mL M: 62 - 150 Ascending Aorta 3.77 cm M: 2.6 - 3.4 LV Volume Index 54.59 mL/m2 M: 34 - 74 Ascending Aorta Index: 1.5 cm/m2 LA Volume 84.6 mL Left Atrium 3.40 cm M: 3.0 - 4.0 LA Volume Index 33.97 mL/m2 (M/F) 16-34 LVOT 2.31 cm (M/F) 1.5-2.5 RV Major 2.41 cm TAPSE 1.9 >1.7 cm RV Minor 8.36 cm IVC 1.9 cm RVIDd 2.92 cm (M/F) 2.5-4.1 Right Atrium 5.6 cm (M/F) 2.9-4.5 LV Diastology E/A Ratio 0.7 Septal E' 0.08 (<.07 m/s) LAT E' 0.12 (<.10 m/s) E/LAT E' Ratio 6.00 (>14) E/E AVG 7.13 Septal E/E' 8.78 Aortic Valve LVOT Max 1.00 (0.7-1.1 m/s) LVOT VTI 15.90 cm AV DI 0.84 (>0.25) AoV Peak Preston. 1.32 (0.5-1.3 m/s) AV Vmean 0.94 m/s AO Peak GR. 6.93 mmHg AO Mean GR. 3.86 (<5 mmHg) AO VTI 18.9 (18-25 cm) CHRISTIAN (VTI) 3.52 (2.5-4.5 cm2) Mitral Valve MV E Max Preston. 0.7 (0.4-1.3 m/s) MV A Velocity 0.94 (0.4-1.3 m/s) E/A Ratio 0.76 MV PHT 27.40 ms MVA PHT 8.03 cm2 MV Dec [place] 417.65 cm/s2 MV Decel. Time 170.62 (160-240 ms) Pulmonary Valve PV Peak Velocity 0.9 (0.5-1.5 m/s) PV maxPG 3.0 mmHg PV Vmax 0.9 m/s Tricuspid Valve TR P. Velocity 2.85 m/s RAP Estimate 3 mmHg RVSP 35.40 mmHg TR maxPG 32.40 mmHg Little1 User, Interfaces - 09/01/2020 8:49 AM EDT APPROVED REPORT Other Information Study Quality: Adequate Conclusion Technically limited study, normal RV/LV size, mild moderate concentric LVH with ejection fraction greater than 60%. Trivial to mild tricuspid regurgitation with borderline pulmonary hypertension at 35 mmHg. No significant pericardial abnormality. Mild left atrial enlargement, LVH and mild ascending aortic dilatation suggest component of hypertensive cardiovascular disease. Left Ventricle The left ventricle is normal size. Left ventricular systolic function is normal. Mild to moderate concentric left ventricular hypertrophy. There is normal LV segmental wall motion. Transmitral Doppler flow pattern suggests impaired LV relaxation. LVEF is 60-65%. Right Ventricle The right ventricle is normal size. Right ventricular systolic function is grossly normal. Atria Left atrium is mildly dilated. Right atrium is borderline dilated. Aortic Valve The aortic valve is normal in structure. There is no aortic valvular stenosis. No aortic regurgitation is present. Mitral Valve The mitral valve is normal in structure. Trace mitral regurgitation. Tricuspid Valve The tricuspid valve is normal in structure. Trace to mild tricuspid regurgitation. The RVSP is 35-40 mmHg. Pulmonic Valve The pulmonary valve is normal in structure. Great Vessels The aortic root is normal in size. The ascending aorta is mildly dilated. Pericardium Trace pericardial effusion. EXAM: Comprehensive 2D, Doppler, and color-flow Echocardiogram with contrast Echo Enhancing Agent Indication: Endocardial border delineation Agent(s) / Amount(s) Used: Definity 4 cc 2D Dimensions IVSd 1.3 cm M: 0.6-1.0LVEF (Moreno's)66.17 % M: 52 - 72 PWd 1.3 cm M: 0.6 - 1.0EF AP4-a2DQ65.42 % LVDd 5.2 cm M: 4.2 - 5.8EF AP2-a2DQ68.53 % LVDs 3.27 cm M: 2.5 - 4.0EF BP-a2DQ66.17 % Aortic Root 3.20 cm M: 3.1 - 3.0ADWK78 mL Aortic Root Index1.3 cm/m2LV Mlsemu363.93 mL M: 62 - 150 Ascending Aorta 3.77 cm M: 2.6 - 3.4LV Volume Index54.59 mL/m2 M: 34 - 74 Ascending Aorta Index: 1.5 cm/m2LA Tubovb55.6 mL Left Atrium 3.40 cm M: 3.0 - 4.0LA Volume Index33.97 mL/m2 (M/F) 16-34 LVOT2.31 cm (M/F) 1.5-2.5RV Major 2.41 cm TAPSE 1.9 >1.7 cmRV Minor8.36 cm IVC1.9 cmRVIDd2.92 cm (M/F) 2.5-4.1 Right Atrium 5.6 cm (M/F) 2.9-4.5 LV Diastology E/A Ratio 0.7Septal E'0.08 (<.07 m/s) LAT E'0.12 (<.10 m/s)E/LAT E' Ratio6.00 (>14) E/E AVG 7.13Septal E/E'8.78 Aortic Valve LVOT Max1.00 (0.7-1.1 m/s)LVOT VTI15.90 cm AV DI0.84 (>0.25)AoV Peak Preston.1.32 (0.5-1.3 m/s) AV Vmean 0.94 m/Romaine Peak GR.6.93 mmHg AO Mean GR.3.86 (<5 mmHg)AO VTI18.9 (18-25 cm) CHRISTIAN (VTI)3.52 (2.5-4.5 cm2) Mitral Valve MV E Max Preston.0.7 (0.4-1.3 m/s)MV A Velocity0.94 (0.4-1.3 m/s) E/A Ratio0.76MV PHT27.40 ms MVA PHT8.03 cm2MV Dec [place] 417.65 cm/s2 MV Decel. Wzok394.62 (160-240 ms) Pulmonary Valve PV Peak Velocity0.9 (0.5-1.5 m/s)PV maxPG3.0 mmHg PV Vmax0.9 m/s Tricuspid Valve TR P. Velocity2.85 m/sRAP Estimate3 mmHg RVSP35.40 mmHgTR maxPG 32.40 mmHg [facility] ECHOCARDIOGRAMOrdered By: Eulogio Hernandez on 09-01-2020 APPROVED REPORT Other Information Study Quality: Adequate Conclusion Technically limited study, normal RV/LV size, mild moderate concentric LVH with ejection fraction greater than 60%. Trivial to mild tricuspid regurgitation with borderline pulmonary hypertension at 35 mmHg. No significant pericardial abnormality. Mild left atrial enlargement, LVH and mild ascending aortic dilatation suggest component of hypertensive cardiovascular disease. Left Ventricle The left ventricle is normal size. Left ventricular systolic function is normal. Mild to moderate concentric left ventricular hypertrophy. There is normal LV segmental wall motion. Transmitral Doppler flow pattern suggests impaired LV relaxation. LVEF is 60-65%. Right Ventricle The right ventricle is normal size. Right ventricular systolic function is grossly normal. Atria Left atrium is mildly dilated. Right atrium is borderline dilated. Aortic Valve The aortic valve is normal in structure. There is no aortic valvular stenosis. No aortic regurgitation is present. Mitral Valve The mitral valve is normal in structure. Trace mitral regurgitation. Tricuspid Valve The tricuspid valve is normal in structure. Trace to mild tricuspid regurgitation. The RVSP is 35-40 mmHg. Pulmonic Valve The pulmonary valve is normal in structure. Great Vessels The aortic root is normal in size. The ascending aorta is mildly dilated. Pericardium Trace pericardial effusion. EXAM: Comprehensive 2D, Doppler, and color-flow Echocardiogram with contrast Echo Enhancing Agent Indication: Endocardial border delineation Agent(s) / Amount(s) Used: Definity 4 cc 2D Dimensions IVSd 1.3 cm M: 0.6-1.0 LVEF (Moreno's) 66.17 % M: 52 - 72 PWd 1.3 cm M: 0.6 - 1.0 EF AP4-a2DQ 65.42 % LVDd 5.2 cm M: 4.2 - 5.8 EF AP2-a2DQ 68.53 % LVDs 3.27 cm M: 2.5 - 4.0 EF BP-a2DQ 66.17 % Aortic Root 3.20 cm M: 3.1 - 3.7 LVSV 46 mL Aortic Root Index 1.3 cm/m2 LV Volume 135.93 mL M: 62 - 150 Ascending Aorta 3.77 cm M: 2.6 - 3.4 LV Volume Index 54.59 mL/m2 M: 34 - 74 Ascending Aorta Index: 1.5 cm/m2 LA Volume 84.6 mL Left Atrium 3.40 cm M: 3.0 - 4.0 LA Volume Index 33.97 mL/m2 (M/F) 16-34 LVOT 2.31 cm (M/F) 1.5-2.5 RV Major 2.41 cm TAPSE 1.9 >1.7 cm RV Minor 8.36 cm IVC 1.9 cm RVIDd 2.92 cm (M/F) 2.5-4.1 Right Atrium 5.6 cm (M/F) 2.9-4.5 LV Diastology E/A Ratio 0.7 Septal E' 0.08 (<.07 m/s) LAT E' 0.12 (<.10 m/s) E/LAT E' Ratio 6.00 (>14) E/E AVG 7.13 Septal E/E' 8.78 Aortic Valve LVOT Max 1.00 (0.7-1.1 m/s) LVOT VTI 15.90 cm AV DI 0.84 (>0.25) AoV Peak Preston. 1.32 (0.5-1.3 m/s) AV Vmean 0.94 m/s AO Peak GR. 6.93 mmHg AO Mean GR. 3.86 (<5 mmHg) AO VTI 18.9 (18-25 cm) CHRISTIAN (VTI) 3.52 (2.5-4.5 cm2) Mitral Valve MV E Max Preston. 0.7 (0.4-1.3 m/s) MV A Velocity 0.94 (0.4-1.3 m/s) E/A Ratio 0.76 MV PHT 27.40 ms MVA PHT 8.03 cm2 MV Dec [place] 417.65 cm/s2 MV Decel. Time 170.62 (160-240 ms) Pulmonary Valve PV Peak Velocity 0.9 (0.5-1.5 m/s) PV maxPG 3.0 mmHg PV Vmax 0.9 m/s Tricuspid Valve TR P. Velocity 2.85 m/s RAP Estimate 3 mmHg RVSP 35.40 mmHg TR maxPG 32.40 mmHg Little1 User, Interfaces - 09/01/2020 8:49 AM EDT APPROVED REPORT Other Information Study Quality: Adequate Conclusion Technically limited study, normal RV/LV size, mild moderate concentric LVH with ejection fraction greater than 60%. Trivial to mild tricuspid regurgitation with borderline pulmonary hypertension at 35 mmHg. No significant pericardial abnormality. Mild left atrial enlargement, LVH and mild ascending aortic dilatation suggest component of hypertensive cardiovascular disease. Left Ventricle The left ventricle is normal size. Left ventricular systolic function is normal. Mild to moderate concentric left ventricular hypertrophy. There is normal LV segmental wall motion. Transmitral Doppler flow pattern suggests impaired LV relaxation. LVEF is 60-65%. Right Ventricle The right ventricle is normal size. Right ventricular systolic function is grossly normal. Atria Left atrium is mildly dilated. Right atrium is borderline dilated. Aortic Valve The aortic valve is normal in structure. There is no aortic valvular stenosis. No aortic regurgitation is present. Mitral Valve The mitral valve is normal in structure. Trace mitral regurgitation. Tricuspid Valve The tricuspid valve is normal in structure. Trace to mild tricuspid regurgitation. The RVSP is 35-40 mmHg. Pulmonic Valve The pulmonary valve is normal in structure. Great Vessels The aortic root is normal in size. The ascending aorta is mildly dilated. Pericardium Trace pericardial effusion. EXAM: Comprehensive 2D, Doppler, and color-flow Echocardiogram with contrast Echo Enhancing Agent Indication: Endocardial border delineation Agent(s) / Amount(s) Used: Definity 4 cc 2D Dimensions IVSd 1.3 cm M: 0.6-1.0LVEF (Moreno's)66.17 % M: 52 - 72 PWd 1.3 cm M: 0.6 - 1.0EF AP4-a2DQ65.42 % LVDd 5.2 cm M: 4.2 - 5.8EF AP2-a2DQ68.53 % LVDs 3.27 cm M: 2.5 - 4.0EF BP-a2DQ66.17 % Aortic Root 3.20 cm M: 3.1 - 3.4RNJC36 mL Aortic Root Index1.3 cm/m2LV Faiwcm566.93 mL M: 62 - 150 Ascending Aorta 3.77 cm M: 2.6 - 3.4LV Volume Index54.59 mL/m2 M: 34 - 74 Ascending Aorta Index: 1.5 cm/m2LA Nhdnac73.6 mL Left Atrium 3.40 cm M: 3.0 - 4.0LA Volume Index33.97 mL/m2 (M/F) 16-34 LVOT2.31 cm (M/F) 1.5-2.5RV Major 2.41 cm TAPSE 1.9 >1.7 cmRV Minor8.36 cm IVC1.9 cmRVIDd2.92 cm (M/F) 2.5-4.1 Right Atrium 5.6 cm (M/F) 2.9-4.5 LV Diastology E/A Ratio 0.7Septal E'0.08 (<.07 m/s) LAT E'0.12 (<.10 m/s)E/LAT E' Ratio6.00 (>14) E/E AVG 7.13Septal E/E'8.78 Aortic Valve LVOT Max1.00 (0.7-1.1 m/s)LVOT VTI15.90 cm AV DI0.84 (>0.25)AoV Peak Preston.1.32 (0.5-1.3 m/s) AV Vmean 0.94 m/Romaine Peak GR.6.93 mmHg AO Mean GR.3.86 (<5 mmHg)AO VTI18.9 (18-25 cm) CHRISTIAN (VTI)3.52 (2.5-4.5 cm2) Mitral Valve MV E Max Preston.0.7 (0.4-1.3 m/s)MV A Velocity0.94 (0.4-1.3 m/s) E/A Ratio0.76MV PHT27.40 ms MVA PHT8.03 cm2MV Dec [place] 417.65 cm/s2 MV Decel. Pbsc220.62 (160-240 ms) Pulmonary Valve PV Peak Velocity0.9 (0.5-1.5 m/s)PV maxPG3.0 mmHg PV Vmax0.9 m/s Tricuspid Valve TR P. Velocity2.85 m/sRAP Estimate3 mmHg RVSP35.40 mmHgTR maxPG 32.40 mmHg [employer] [facility] NUC MYOCARD PERF STRESS MIBI PHARMon 09-01-2020 APPROVED REPORT NM EXAM: Nuclear Stress Test Imaging Protocol: Rest Tc-99m/Stress Tc-99m 1 day Nuclear Conclusion ECG Findings: non-diagnostic Clinical Findings: negative for ischemia Nuclear Findings: negative for ischemia Exercise Capacity: not assessed Left Ventricular Function: normal Risk Study: low SPECT Cardiolite study demonstrated some patchy uptake but no definitive ischemia or scar. Preserved LV function. Study Data Post stress, the left ventricular ejection fraction was 54.0%. SSS: 1 SRS: 2 SDS: 0 TID = 0.87. Resting Data Rest SPECT myocardial perfusion imaging was performed in supine position following the intravenous injection of 9.6 mCi of Tc-99m Sestamibi. Time of rest injection: 614 Date: 09/01/2020 Administration Route: IV Administration Site: Left AC Pharmacologic Stress Pharmacologic stress test was performed by injecting Regadenoson 0.4 mg IV push followed by the intravenous injection of 29.0 mCi of Tc-99m Sestamibi. Time of stress injection: 824 Date: 09/01/2020 Administration Route: IV Administration Site: Left AC The images were gated to evaluate regional wall motion and calculate left ventricular ejection fraction. Comments nonwalking Stress ECG Conclusion Nondiagnostic stress test, O2 sat 95%. Clinical Reason for Termination: End of protocol Overall Exercise Capacity for Age: NA Scale: Sedentary Angina Score: None Stress Test Details Stress Test: Pharmacologic stress testing performed using 0.4 mg of regadenoson per 5 mL given IV over 10 seconds. Reason for pharmacologic stress test: physical limitation. HR Resting HR: 104 bpm Max Heart Rate (APMHR): 146.605943 bpm Max HR Achieved: 114 bpm Target HR (85% APMHR): 124.584995 bpm % of APMHR: 78.08 Recovery HR: 112 bpm HR response to stress: appropriate BP Resting BP: 130/84 mmHg Max BP: 130/84 mmHg BP response to stress: Normal resting BP-appropriate response. ECG Resting ECG: Normal ST Change: None Arrhythmia: atrial premature beats Conclusion Nondiagnostic stress test, O2 sat 95%. [employer] User, Interfaces - 09/01/2020 2:35 PM EDT APPROVED REPORT NM EXAM: Nuclear Stress Test Imaging Protocol: Rest Tc-99m/Stress Tc-99m 1 day Nuclear Conclusion ECG Findings: non-diagnostic Clinical Findings: negative for ischemia Nuclear Findings: negative for ischemia Exercise Capacity: not assessed Left Ventricular Function: normal Risk Study: low SPECT Cardiolite study demonstrated some patchy uptake but no definitive ischemia or scar. Preserved LV function. Study Data Post stress, the left ventricular ejection fraction was 54.0%. SSS: 1 SRS: 2 SDS: 0 TID = 0.87. Resting Data Rest SPECT myocardial perfusion imaging was performed in supine position following the intravenous injection of 9.6 mCi of Tc-99m Sestamibi. Time of rest injection: 614 Date: 09/01/2020 Administration Route: IV Administration Site: Left AC Pharmacologic Stress Pharmacologic stress test was performed by injecting Regadenoson 0.4 mg IV push followed by the intravenous injection of 29.0 mCi of Tc-99m Sestamibi. Time of stress injection: 824 Date: 09/01/2020 Administration Route: IV Administration Site: Left AC The images were gated to evaluate regional wall motion and calculate left ventricular ejection fraction. Comments nonwalking Stress ECG Conclusion Nondiagnostic stress test, O2 sat 95%. Clinical Reason for Termination: End of protocol Overall Exercise Capacity for Age: NA Scale: Sedentary Angina Score: None Stress Test Details Stress Test: Pharmacologic stress testing performed using 0.4 mg of regadenoson per 5 mL given IV over 10 seconds. Reason for pharmacologic stress test: physical limitation. HR Resting HR: 104 bpmMax Heart Rate (APMHR): 146.097653 bpm Max HR Achieved: 114 bpmTarget HR (85% APMHR): 124.966852 bpm % of APMHR: 78.08 Recovery HR: 112 bpm HR response to stress: appropriate BP Resting BP: 130/84 mmHg Max BP: 130/84 mmHg BP response to stress: Normal resting BP-appropriate response. ECG Resting ECG: Normal ST Change: None Arrhythmia: atrial premature beats Conclusion Nondiagnostic stress test, O2 sat 95%. [facility] NUC MYOCARD PERF STRESS MIBI PHARMOrdered By: Ata Hernandez on 09-01-2020 APPROVED REPORT NM EXAM: Nuclear Stress Test Imaging Protocol: Rest Tc-99m/Stress Tc-99m 1 day Nuclear Conclusion ECG Findings: non-diagnostic Clinical Findings: negative for ischemia Nuclear Findings: negative for ischemia Exercise Capacity: not assessed Left Ventricular Function: normal Risk Study: low SPECT Cardiolite study demonstrated some patchy uptake but no definitive ischemia or scar. Preserved LV function. Study Data Post stress, the left ventricular ejection fraction was 54.0%. SSS: 1 SRS: 2 SDS: 0 TID = 0.87. Resting Data Rest SPECT myocardial perfusion imaging was performed in supine position following the intravenous injection of 9.6 mCi of Tc-99m Sestamibi. Time of rest injection: 614 Date: 09/01/2020 Administration Route: IV Administration Site: Left AC Pharmacologic Stress Pharmacologic stress test was performed by injecting Regadenoson 0.4 mg IV push followed by the intravenous injection of 29.0 mCi of Tc-99m Sestamibi. Time of stress injection: 824 Date: 09/01/2020 Administration Route: IV Administration Site: Left AC The images were gated to evaluate regional wall motion and calculate left ventricular ejection fraction. Comments nonwalking Stress ECG Conclusion Nondiagnostic stress test, O2 sat 95%. Clinical Reason for Termination: End of protocol Overall Exercise Capacity for Age: NA Scale: Sedentary Angina Score: None Stress Test Details Stress Test: Pharmacologic stress testing performed using 0.4 mg of regadenoson per 5 mL given IV over 10 seconds. Reason for pharmacologic stress test: physical limitation. HR Resting HR: 104 bpm Max Heart Rate (APMHR): 146.889405 bpm Max HR Achieved: 114 bpm Target HR (85% APMHR): 124.525873 bpm % of APMHR: 78.08 Recovery HR: 112 bpm HR response to stress: appropriate BP Resting BP: 130/84 mmHg Max BP: 130/84 mmHg BP response to stress: Normal resting BP-appropriate response. ECG Resting ECG: Normal ST Change: None Arrhythmia: atrial premature beats Conclusion Nondiagnostic stress test, O2 sat 95%. [employer] User, Interfaces - 09/01/2020 2:35 PM EDT APPROVED REPORT NM EXAM: Nuclear Stress Test Imaging Protocol: Rest Tc-99m/Stress Tc-99m 1 day Nuclear Conclusion ECG Findings: non-diagnostic Clinical Findings: negative for ischemia Nuclear Findings: negative for ischemia Exercise Capacity: not assessed Left Ventricular Function: normal Risk Study: low SPECT Cardiolite study demonstrated some patchy uptake but no definitive ischemia or scar. Preserved LV function. Study Data Post stress, the left ventricular ejection fraction was 54.0%. SSS: 1 SRS: 2 SDS: 0 TID = 0.87. Resting Data Rest SPECT myocardial perfusion imaging was performed in supine position following the intravenous injection of 9.6 mCi of Tc-99m Sestamibi. Time of rest injection: 614 Date: 09/01/2020 Administration Route: IV Administration Site: Left AC Pharmacologic Stress Pharmacologic stress test was performed by injecting Regadenoson 0.4 mg IV push followed by the intravenous injection of 29.0 mCi of Tc-99m Sestamibi. Time of stress injection: 824 Date: 09/01/2020 Administration Route: IV Administration Site: Left AC The images were gated to evaluate regional wall motion and calculate left ventricular ejection fraction. Comments nonwalking Stress ECG Conclusion Nondiagnostic stress test, O2 sat 95%. Clinical Reason for Termination: End of protocol Overall Exercise Capacity for Age: NA Scale: Sedentary Angina Score: None Stress Test Details Stress Test: Pharmacologic stress testing performed using 0.4 mg of regadenoson per 5 mL given IV over 10 seconds. Reason for pharmacologic stress test: physical limitation. HR Resting HR: 104 bpmMax Heart Rate (APMHR): 146.428855 bpm Max HR Achieved: 114 bpmTarget HR (85% APMHR): 124.197653 bpm % of APMHR: 78.08 Recovery HR: 112 bpm HR response to stress: appropriate BP Resting BP: 130/84 mmHg Max BP: 130/84 mmHg BP response to stress: Normal resting BP-appropriate response. ECG Resting ECG: Normal ST Change: None Arrhythmia: atrial premature beats Conclusion Nondiagnostic stress test, O2 sat 95%. Targeted Growth US RENAL RETROPERITONEALon 0 09-01-2020 IMPRESSION: 1. Suspicious findings for a 1.6 cm urothelial mass of the bladder. 2. Suspected moderate left-sided hydronephrosis described above. 3. No right-sided hydronephrosis. 4. No ultrasound evidence of renal stones. 5. For further characterization of the above findings, CT urogram or at least unenhanced CT of the abdomen/pelvis may be helpful. Little1 EXAM: US RENAL RETROPERITONEAL HISTORY: acute renal failure COMPARISON: No prior renal ultrasound studies. TECHNIQUE: Ultrasound of the kidneys. FINDINGS: The right kidney measures about 13.2 x 6.1 x 6.7 cm. The left kidney measures about 12.8 x 7.1 x 6.8 cm. The right kidney shows no hydronephrosis, appreciable stones or focal masses. Cortical thickness is within normal limits. Left kidney demonstrates the appearance of mild to moderate hydronephrosis. Although these were measured individually as possible prominent renal pyramids and extrarenal pelvis, there may be communication from these areas to the dilated renal pelvis and more likely to be hydronephrosis. There is renal cortical thinning. No appreciable stones. Within the dome of the bladder favoring the right side, there is a medium level echogenic masslike area measuring 1.0 x 1.6 x 1.6 cm suspicious for urothelial mass. Little1 User, Interfaces 09/01/2020 1:04 PM EDT EXAM: US RENAL RETROPERITONEAL HISTORY: acute renal failure COMPARISON: No prior renal ultrasound studies. TECHNIQUE: Ultrasound of the kidneys. FINDINGS: The right kidney measures about 13.2 x 6.1 x 6.7 cm. The left kidney measures about 12.8 x 7.1 x 6.8 cm. The right kidney shows no hydronephrosis, appreciable stones or focal masses. Cortical thickness is within normal limits. Left kidney demonstrates the appearance of mild to moderate hydronephrosis. Although these were measured individually as possible prominent renal pyramids and extrarenal pelvis, there may be communication from these areas to the dilated renal pelvis and more likely to be hydronephrosis. There is renal cortical thinning. No appreciable stones. Within the dome of the bladder favoring the right side, there is a medium level echogenic masslike area measuring 1.0 x 1.6 x 1.6 cm suspicious for urothelial mass. IMPRESSION IMPRESSION: 1. Suspicious findings for a 1.6 cm urothelial mass of the bladder. 2. Suspected moderate left-sided hydronephrosis described above. 3. No right-sided hydronephrosis. 4. No ultrasound evidence of renal stones. 5. For further characterization of the above findings, CT urogram or at least unenhanced CT of the abdomen/pelvis may be helpful. [facility] CBC, EDIF, PLATELETOrdered B y: Ata Hernandez on 08-21-2020 ABSOLUTE BASOPHIL COUNT 0.1 10*3/uL 0.0 - 0.2 10*3/uL [facility] Comment on above: Testing performed at [facility], [place], [place] [address] Basophils/100 WBC (Bld) 1.3 % 0.0 - 2.0 % Little1 Differential cell count method Nom (Bld) AUTO DIFF % [facility] Eosinophils (Bld) [#/Vol] 0.20 10*3/uL 0.0 - 0.7 10*3/uL [facility] Eosinophils/100 WBC (Bld) 1.6 % 0.0 - 11.0 % [facility] Erythrocyte distribution width (RBC) [Ratio] 16.1 % High 11.5 - 14.5 % [facility] Hematocrit (Bld) [Volume fraction] 42.1 % 42.0 - 52.0 % [facility] Hemoglobin (Bld) [Mass/Vol] 13.8 g/dL Low [facility] Interpretation and review of laboratory results Abnormal [facility] Lymphocytes (Bld) [#/Vol] 2.10 10*3/uL 1.2 - 3.4 10*3/uL [facility] Lymphocytes/100 WBC (Bld) 22.5 % 20.0 - 55.0 % [facility] MCH (RBC) [Entitic mass] 28.6 pg 26.0 - 35.0 PG [facility] MCHC (RBC) [Mass/Vol] 32.8 g/dL [facility] MCV (RBC) [Entitic vol] 87.5 fL [facility] Monocytes (Bld) [#/Vol] 0.5 10*3/uL 0.0 - 0.7 10*3/uL [facility] Monocytes/100 WBC (Bld) 5.7 % 0.0 - 10.0 % [facility] Neutrophils (Bld) [#/Vol] 6.5 10*3/uL 1.4 - 6.5 10*3/uL [facility] Neutrophils/100 WBC (Bld) 68.9 % 37.0 - 75.0 % [facility] Platelet mean volume (Bld) [Entitic vol] 9.6 fL [facility] Platelets (Bld) [#/Vol] 336 10*3/uL 130.0 - 400.0 10*3/uL [facility] RBC (Bld) [#/Vol] 4.82 10*6/uL 4.0 - 6.1 10*6/uL [facility] WBC (Bld) [#/Vol] 9.4 10*3/uL 3.6 - 11.0 10*3/uL [facility] COMPREHENSIVE METABOLIC PANE LOrdered By: Ata Hernandez on 08-21-2020 Albumin [Mass/Vol] 4.3 G/dl 3.5 - 5.0 G/dl [facility] Albumin/Globulin [Mass ratio] 0.9 {ratio} Low [facility] ALP [Catalytic activity/Vol] 106 U/L [facility] ALT [Catalytic activity/Vol] 21 U/L <50 IU/L [facility] AST [Catalytic activity/Vol] 32 U/L [facility] Bilirubin [Mass/Vol] 0.6 mg/dL [facility] Calcium [Mass/Vol] 9.4 mg/dL [facility] Chloride [Moles/Vol] 102 mmol/L [facility] Comment on above: Please note: Triglyc eride levels of 600mg/dL or higher may positively bias chloride results by approximately 2.1 mmol CO2 [Moles/Vol] 25 mmol/L [facility] Creatinine [Mass/Vol] 1.90 mg/dL High [facility] GFR COMMENT Average GFR for 70+ years old = 75. [facility] Comment on above: Chronic Kidney disea se, GFR = <60. Kidney failure, GFR = <15. The GFR estimate is not adjusted for extreme body surface area or acute process, nor has it been validated for women or ethnic groups other than and . Testing performed at [place], [place] [address] GFR/1.73 sq M.predicted among blacks MDRD (S/P/Bld) [Vol rate/Area] 45 mL/min/{1.73_m2} ml/min/1.73s q.m [facility] GFR/1.73 sq M.predicted among non-blacks MDRD (S/P/Bld) [Vol rate/Area] 37 mL/min/{1.73_m2} ml/min/1.73s q.m [facility] Glucose post fast [Mass/Vol] 122 mg/dL [facility] Comment on above: NORMAL <100 mg/dL PREDIABETES 101-126 mg/dL DIABETES 126 mg/dL or higher Potassium [Moles/Vol] 4.3 mmol/L [facility] Protein [Mass/Vol] 8.9 g/dL High [facility] Sodium [Moles/Vol] 138 mmol/L [facility] Urea nitrogen [Mass/Vol] 28 mg/dL [facility] LIPID PANEL W CALCULATED LDL Ordered By: Ata Hernandez on 08-21-2020 Cholesterol [Mass/Vol] 196 mg/dL [facility] Cholesterol in HDL [Mass/Vol] 37 mg/dL [facility] Cholesterol in LDL [Mass/Vol] 118 mg/dL MG/DL [facility] Cholesterol in VLDL [Mass/Vol] 41 mg/dL High [facility] Cholesterol.total/Chol esterol in HDL [Mass ratio] 5.30 {ratio} RATIO [facility] Comment on above: RISK TOTAL/HDL RATIO MEN WOMEN 1/2 AVERAGE 3.43 3.27 AVERAGE 4.97 4.44 2X AVERAGE 9.55 7.05 3X AVERAGE 23.99 11.04 Testing performed at [place], [place] [address] Triglyceride [Mass/Vol] 203 mg/dL High [facility] No Panel InformationOrdered By: Ata Hernandez on 08-21-2020 [facility] Interpretation and review of laboratory results Abnormal [facility] POCT URINE DIPSTICK NON-AUTO MATEDOrdered By: Ata Hernandez on 08-21-2020 Amorphous sediment LM Ql (Urine sed) [facility] Appearance (U) Cloudy [facility] Bacteria LM Ql (Urine sed) [facility] Bilirubin Ql (U) Negative [facility] Casts LM.LPF (Urine sed) [#/Area] [facility] Color (U) dark yellow brown [facility] Crystals LM Nom (Urine sed) [facility] Epithelial cells.squamous LM.HPF (Urine sed) [#/Area] [facility] Flow cytometry specialist review [place] (Unsp spec) [Interp] [facility] Glucose Auto test strip (U) [Mass/Vol] Negative mg/dL [facility] Ketones [Mass/Vol] Negative mg/dL [facility] Leukocyte esterase Qn (U) [facility] Leukocyte esterase Test strip Ql (U) large+++ [facility] Microscopic observation Gram stain Nom (Bronch spec) [facility] Nitrite Ql (U) Positive [facility] pH (U) 7.0 [pH] [facility] Protein Ql (U) 100++ mg/dL [facility] RBC LM.HPF (Urine sed) [#/Area] [facility] RBC Ql (U) large [facility] Specific gravity (U) [Rel density] 1.010 [facility] Transitional cells LM Ql (Urine sed) [facility] Urobilinogen Qn (U) normal [facility] WBC LM.HPF (Urine sed) [#/Area] [facility] PSA, SCREENINGOrdered By: Eulogio Hernandez on 08-21-2020 Prostate specific Ag [Mass/Vol] 0.161 ng/mL [facility] Comment on above: OBTAIN BASELINE BETWEEN AGES OF 45-75 LESS THAN 1.0 ng/mL REPEAT TESTING AT 2-4 YEARS 1.0-3.0 ng/mL REPEAT TESTING AT 1-2 YEARS GREATER THAN 3.0 ng/mL REPEAT PSA,WERNER, AND WORKUP FOR BENIGN DISEASE AGE GREATER THAN 75, PSA LESS THAN 3 ng/mL REPEAT TESTING IN 1-4 YEARS Testing performed at [place] [address] T4 FREEOrdered By: Ata Hernandez on 08-21-2020 Free T4 [Mass/Vol] 1.26 ng/dL [facility] Comment on above: Testing performed at [address] TSH W/FT4 REFLEXOrdered By: Ata Hernandez on 08-21-2020 Interpretation and review of laboratory results Abnormal [facility] TSH Qn 5.450 m[IU]/L [facility] Comment on above: Testing performed at [place] [address] URIC ACIDOrdered By: Ata ordoñez on 08-21-2020 Urate [Mass/Vol] 8.5 mg/dL [facility] Comment on above: Testing performed at [place] [address] POCT URINALYSIS DIPSTICK NON AUTOMATEDon 08-12-2019 Amorphous sediment LM Ql (Urine sed) [facility] Appearance (Body fld) [facility] Bacteria LM Ql (Urine sed) [facility] Bilirubin Ql (U) Negative [facility] Casts LM.LPF (Urine sed) [#/Area] [facility] Color (U) yellow [facility] Crystals LM Nom (Urine sed) [facility] Epithelial cells.squamous LM.HPF (Urine sed) [#/Area] [facility] Flow cytometry specialist review [place] (Unsp spec) [Interp] [facility] Interpretation and review of laboratory results Normal [facility] Ketones [Mass/Vol] Negative mg/dL [facility] Leukocyte esterase Qn (U) [facility] Leukocyte esterase Test strip Ql (U) moderate [facility] Nitrite Ql (U) Positive [facility] pH (U) 5.0 [pH] [facility] POCT GLUCOSE, URINE Negative mg/dL [facility] Protein Ql (U) 100 plus mg/dL [facility] RBC LM.HPF (Urine sed) [#/Area] [facility] RBC Ql (U) large [facility] Specific gravity (U) [Rel density] 1.025 [facility] Transitional cells LM Ql (Urine sed) [facility] Urobilinogen (U) [Mass/Vol] normal [facility] WBC LM.HPF (Urine sed) [#/Area] [facility] CT Abdomen/Pelvis w/o Contra ston 04-29-2018 CT Abdomen/Pelvis w/o Contrast Exam Date/Time:04/28/2018 22:33 ESTReason for Exam:PainReportSTUDY:C T Abdomen/Pelvis w/o Contrast; 04/28/2018 10:33 pmINDICATION:Pain.COMP ARISON:02/23/2018ACCES SAGE NUMBER(S):[id number] CLINICIAN:Yoav Bello:Axial noncontrast CT images of the abdomen and pelvis with coronal and sagittal reconstructed images.FINDINGS:LOWER CHEST: No acute abnormality of the lung bases.BONES: Njtw-au-gewndjum degenerative disc changes.ABDOMINAL WALL: Nonspecific subcutaneous stranding in the periumbilical and supraumbilical ventral abdominal wall. No soft tissue gas or fluid collection.ABDOMEN:Lac k of intravenous contrast limits evaluation of vessels and solid organs.LIVER: Within normal limits.BILE DUCTS: Normal caliber.GALLBLADDER: No calcified gallstones. No wall thickening.PANCREAS: No peripancreatic inflammatory stranding or duct dilatation.SPLEEN: Within normal limits.ADRENALS: Within normal limits.KIDNEYS, URETERS, URINARY BLADDER: No hydronephrosis or urinary tract calculus. The urinary bladder is unremarkable.VESSELS: Mild aortoiliac calcification. No aortic aneurysm.RETROPERITONE UM: No pathologically enlarged lymph nodes.PELVIS:REPRODUCT AUDI ORGANS: No abnormality, given limitations of the noncontrast CT. No significant free pelvic fluid.BOWEL: No dilated bowel. Colonic diverticulosis without acute diverticulitis. Normal appendix.PERITONEUM: No ascites or free air, no fluid collection.Exam Date/Time:04/28/2018 22:33 ESTReportIMPRESSION:Castillo bcutaneous stranding in the periumbilical and supraumbilical ventral abdominal wall is a nonspecific finding but may be seen with cellulitis. Please correlate with the patient's symptoms.No acute intra-abdominal or pelvic process. FINAL REPORT Dictated: 04/28/2018 10:[address] MD ESigned (Electronic Signature): 04/28/2018 10:46 pmSigned by: Elizabeth Lane MD Technologist: SRH Normal [facility] UA Completeon 04-29-2018 Color Nom (U) Yellow Normal Yellow [facility] Comment on above: Performed By: #### 8 [id number] ####TIGRE Urinalysis Automated [address] [place] [address] Glucose mass conc (U) Negative Normal Negative [facility] Comment on above: Performed By: #### 8 [id number] ####TIGRE Urinalysis Automated [address] [place] [address] Ketones Ql (U) Negative Normal Negative [facility] Comment on above: Performed By: #### 8 [id number] ####TIGRE Urinalysis Automated [address] [place] [address] RBC Test strip #/vol (U) /uL Abnormal 0-3 [facility] Comment on above: Performed By: #### 8 [id number] ####TIGRE Urinalysis Automated [address] [place] [address] UA Blood 2+ Abnormal Negative [facility] Comment on above: Performed By: #### 8 [id number] ####TIGRE Urinalysis Automated [address] [place] [address] UA Bacteria 2+ /HPF Abnormal None [facility] Comment on above: Performed By: #### 8 [id number] ####TIGRE Urinalysis Automated [address] [place] [address] UA Clarity Cloudy Abnormal Clear [facility] Comment on above: Performed By: #### 8 [id number] ####TIGRE Urinalysis Automated [address] [place] [address] UA Leuk Est 3+ Abnormal Negative [facility] Comment on above: Performed By: #### 8 [id number] ####TIGRE Urinalysis Automated [address] [place] [address] UA Mucous Trace Abnormal Trace [facility] Comment on above: Performed By: #### 8 [id number] ####TIGRE Urinalysis Automated [address] [place] [address] UA Nitrite Positive Abnormal Negative [facility] Comment on above: Performed By: #### 8 [id number] ####TIGRE Urinalysis Automated [address] [place] [address] UA pH 5.0 Normal 4.6-8.0 [facility] Comment on above: Performed By: #### 8 [id number] ####TIGRE Urinalysis Automated [address] [place] [address] UA Protein 1+ Abnormal Negative [facility] Comment on above: Performed By: #### 8 [id number] ####TIGRE Urinalysis Automated [address] [place] [address] UA Spec Grav 1.018 Normal 1.003-1.030 [facility] Comment on above: Performed By: #### 8 [id number] ####TIGRE Urinalysis Automated [address] [place] [address] UA Urobilinogen Negative Normal [facility] Comment on above: Result Comment: Due to a manufacturing issue, low positive urobilinogen results may be fasely positive. Correlate with urine bilirubin and additional clinical/laboratory findings to assess the risk of hemolytic anemia or liver disease. If clinically indicated, repeat testing with an alternate method is available by contacting the laboratory within 24 hours. Performed By: #### 8 [id number] ####TIGRE Urinalysis Automated [address] [place] [address] UA WBC >50 Abnormal 0-5 [facility] Comment on above: Performed By: #### 8 [id number] ####TIGRE Urinalysis Automated [address] [place] [address] UA WBC Clump Many Abnormal None [facility] Comment on above: Performed By: #### 8 [id number] ####TIGRE Urinalysis Automated [address] [place] [address] Urobilinogen Test strip Qn (U) Negative Normal Negative [facility] Comment on above: Performed By: #### 8 [id number] ####TIGRE Urinalysis Automated [address] [place] [address] C Urineon 03-12-2018 C Urine Final Report: Multip le organisms, suggest reculture >3 colony types Probable skin contamination Recollection suggested Normal [facility] Comment on above: Performed By: #### 2 [id number] ####TIGRE Microbiology [address] [place] [address] CT Abdomen/Pelvis w/o Contra ston 02-24-2018 CT Abdomen/Pelvis w/o Contrast Exam Date/Time:02/23/2018 14:02 EDTReason for Exam:FLANK PAIN;Other (please specify)ReportSTUDY:CT Abdomen/Pelvis w/o Contrast; 02/23/2018 2:02 pmINDICATION:Right groin and flank pain. Difficulty urinating. History of prostate cancer and liver disease.COMPARISON:CCESSION NUMBER(S):[id number] CLINICIAN:John Gleason:CT of the abdomen and pelvis was performed. Contiguous axial images were obtained at 3 mm slice thickness through the abdomen and pelvis. Coronal and sagittal reconstructions at 3 mm slice thickness were performed. No intravenous contrast was administeredFINDINGS:Sis ESPINOSA CHEST: Streaky densities are noted in left lung base, which may be related to atelectasis and/or scarring.ABDOMEN: Please note the evaluation of vessels, lymph nodes and solid organs is limited due to lack of intravenous contrast.LIVER:No focal lesions are seen in the liver. Again noted is a tubular structure anterior to the dome of the liver, which is unchanged and may be vascular in nature. Colonic interposition is noted.BILE DUCTS: Normal caliber.GALLBLADDER: No calcified gallstones. No wall thickening.SPLEEN: Within normal limits.ADRENALS: Within normal limits.PANCREAS: Within normal limits.KIDNEYS: There is no evidence for renal stones or hydronephrosis.PELVIS: REPRODUCTIVE ORGANS: No pelvic masses.URETERS: Within normal limits.BLADDER: Bladder wall thickening is noted, which may be related to incomplete distention.VESSELS: The aorta and IVC are normal in caliber. Vascular calcifications are seen.RETROPERITONEUM: Within normal limits.BOWEL: Normal caliber. No enlarged mesenteric lymph nodes. No abnormal appendix is noted. Colonic diverticulosis is present.Exam Date/Time:02/23/2018 14:02 EDTReportPERITONEUM: No ascites or free air, no fluid collection.ABDOMINAL WALL: Within normal limits.BONES: Degenerative changes are noted in the visualized spine with L5-S1 being affected to the greatest extent.IMPRESSION:1. No evidence for renal stones or hydronephrosis.2. Diverticulosis, without evidence for diverticulitis.3. Bladder wall thickening, which may be related to incomplete distension, though clinical correlation is suggested. FINAL REPORT Dictated: 02/24/2018 10:11 am Adonis Nieves MDigned (Electronic Signature): 02/24/2018 10:11 amSigned by: Li Nieves MD Technologist: MLL Normal [facility] PSA Totalon 01-23-2018 PSA Total 0.39 ng/mL [facility] Comment on above: Result Comment: AGE- SPECIFIC REFERENCE RANGES FOR SERUM PSA REFERENCE RANGE NG/ML AGE ASIANS BLACKS WHITE 40-49 0-2 0-2 0-2.5 50-59 0-3 0-4 0-3.5 60-69 0-4 0-4.5 0-4.5 70-79 0-5 0-5.5 0-6.5 PSA INCREASES WITH AGE, RACE, AND EJACULATION WITHIN 48 HRS. [facility] VOL24,NO.2, , PG.339 Performed By: #### 1 [id number] ####TIGRE [address] [place] [address] C Urineon 01-03-2018 C Urine Final Report: Normal skin sunny isolated Normal [facility] Comment on above: Performed By: #### 2 [id number] ####TIGRE Microbiology [address] [place] [address] POC Urinalysis Dip POCon POC Bilirubin Negative Normal Negative [facility] Comment on above: Performed By: #### C [id number] ####TIGRE POC [address] [place] [address] POC Blood Large 3+ Abnormal Negative [facility] Comment on above: Performed By: #### C [id number] ####TIGRE POC [address] [place] [address] POC Clarity Cloudy Abnormal CLEAR [facility] Comment on above: Performed By: #### C [id number] ####TIGRE POC [address] [place] [address] POC Color Nava Abnormal Yellow [facility] Comment on above: Performed By: #### C [id number] ####TIGRE POC [address] [place] [address] POC Glucose Negative Normal Negative [facility] Comment on above: Performed By: #### C [id number] ####TIGRE POC [address] [place] [address] POC Ketone Negative Normal Negative [facility] Comment on above: Performed By: #### C [id number] ####TIGRE POC [address] [place] [address] POC Leukocyte Trace Normal Negative [facility] Comment on above: Performed By: #### C [id number] ####TIGRE POC [address] [place] [address] POC Nitrite Positive Abnormal Negative [facility] Comment on above: Performed By: #### C [id number] ####TIGRE POC [address] [place] [address] POC pH 5.5 mg/dL Normal 5.0-8.0 [facility] Comment on above: Performed By: #### C [id number] ####TIGRE POC [address] [place] [address] POC Specific Zoar >1.030 Normal 1.005-1.035 [facility] Comment on above: Performed By: #### C [id number] ####TIGRE POC [address] [place] [address] POC Urobilinogen 0.2 EU/dL Normal 0.2-1.[address] [facility] Comment on above: Performed By: #### C [id number] ####TIGRE POC [address] [place] [address] Protein mass conc 30mg/dl 1+ Abnormal Negative [facility] Comment on above: Performed By: #### C [id number] ####TIGRE POC [address] [place] [address] Uric Acidon 05-30-2017 Urate mass conc 9.5 mg/dL High 2.6-7.2 [facility] Comment on above: Performed By: #### 2 [id number] ####TIGRE [address] [place] [address] XR Foot 3+ Views Lefton 05-03 XR Foot 3+ Views Left Exam Date/Time:05/30/2017 14:24 ESTReason for Exam:Pain, Non TraumaticReportXR FOOT 3+ VIEWS LEFTCLINICAL STATEMENT: Postop.COMPARISON: None.TECHNIQUE: Frontal, oblique, and lateral views.FINDINGS: There is soft tissue swelling along the dorsal aspect of the midfootwith no soft tissue gas collections. Mild multifocal osteoarthritis at theinterphalangeal joints of digits and MTP joint of the great toe. There isslight deformity with smooth spurring along the medial base of the proximalphalanx of the great toe that may be related to previous trauma. No acutefracture is seen. There is spurring at the Achilles tendon and plantaraponeurosis insertions on the calcaneus. No opaque foreign body is seen in thesoft tissues.IMPRESSION:Sof t tissue swelling of the foot with no opaque foreign body or acute osseousabnormality. FINAL REPORT Dictated: 05/30/2017 3:01 pm Tommy Falcon DOSigned (Electronic Signature): 05/30/2017 3:01 pmSigned by: Tommy Falcon DO Technologist: ALBAN [facility] Repor ton 12-24-2016 [facility] Services [facility] Report Type: OrthopedicDictated by: To be signed by: Transcribed by: Transcribed D/ Dictation D/ Report: November, Ata Hernandez M.D. [address] [place] [id number] Re: Genet Booth Dear Dr. Hernandez: Thank you for this referral. As you know, Genet is a very pleasant, 71-year-old male with a history of progressively worsening pain in the left knee. The more he is on it, the more it hurts. It radiates locally. It is not associated with any numbness or tingling. The pain is focal to the left knee. It is arthritic in nature. It is similar to the pain he had in the right knee prior to its replacement by Dr. Orantes many years ago. The pain is 7-10 on a 10-point scale. It significantly restricts his activities. Because of this, he has gained weight despite having had a prolonged course of weight loss therapy and attempts at medical management by Dr. Hernandez over the last 2 years. He has had 1-2 injections in the knee. He has not had any medications or physical therapy for the knee yet, and is here today to initiate treatment and consider arthroplasty. The remaining portion of the history is per the documentation form. PAST MEDICAL HISTORY: High blood pressure. Prostate cancer. Thyroid disease. PAST SURGICAL HISTORY: Bilateral cataracts (2010). Right total knee arthroplasty (2010). Dr. Orantes. FAMILY HISTORY: Mother with heart disease and hypertension. Father with cancer. SOCIAL HISTORY: The patient lives alone. He does not have any children. He does not work. The patient does have stairs in the home. He has four steps to climb to enter the home. The patient used to smoke 2-4 cigarettes a day from 1964 to 1979. He denies alcohol or recreational drug use. The patient does not currently receive any services in the home. He is not on any senior programs. The patient does not have transportation to go to outpatient therapy if needed. The patient does not have any equipment in the home. He is not followed by cardiology or pain management. The patient is followed by Dr. Bah of Urology. REVIEW OF SYSTEMS: Constitutional: Negative. Eyes: Negative. ENT: Positive for seasonal allergies. Cardiovascular: Positive for hypertension. Respiratory: Positive for sleep apnea on CPAP. Gastrointestinal: Negative. Musculoskeletal: Positive for joint pain and joint replacement. Skin: Negative. Neurologic: Negative. Psychiatric: Negative. Hematologic: Negative. Endocrine: Positive for hypothyroid. MEDICATIONS: Aspirin. Levothyroxine. Lisinopril. Phentermine. ALLERGIES: IODINE (hives, nausea and vomiting). METAL ALLERGIES: NONE. PHYSICAL EXAMINATION: This is an alert, oriented, age appropriate male in no acute distress, pleasant and cooperative; 5 feet 11 inches, 305 pounds, BMI 43. Pain is 7 on a 10-point scale. The bilateral lower extremities have no gross deformity, normal stability, 5/5 motor, intact sensation, normal coordination and reflexes. Skin is intact, no nodules. Left knee has non-correctable varus alignment. Motion is restricted. It is around 7-110 degrees. Stable examination, no instability, intact neurovascular examination of the lower extremity. Right lower extremity has a well-healed midline incision. Motion is 3-120, stable examination, no instability. DIAGNOSTIC STUDY/INTERPRETATION/I MPRESSION: Plain film radiographs reviewed. Four views of the left knee demonstrate severe endstage arthritis of the knee. There is loss of joint space, subchondral sclerosis, osteophyte formation, gafe-ri-[id number] contact, particularly in the medial compartment of the knee. Long standing films taken and reviewed today demonstrate a mechanical axis that falls through the medial compartment of the left lower extremity and the medial compartment of the replaced right lower extremity. There is soft tissue shadowing over the hip joints bilaterally, but there does appear to be mild arthritis. IMPRESSION: 1. Symptomatic left knee arthritis. 2. Obesity, BMI of 43. PLAN: I reviewed my findings with [facility]. We have gone over the diagnosis and treatment options, both operative and nonoperative management. My recommendation is for extension of conservative management. He has already had an injection, but his insurance company is going to require extensive conservative management in accordance with the Medicare guidelines. In this then, a prescription for Mobic topical pain cream and physical therapy was given today. He is going to continue working on weight loss. We set a goal BMI of 40 or less for preoperative surgical optimization, which puts his target weight around 285-290. We are also going to obtain his past weight loss records for complete documentation for his insurer from Dr. Hernandez' office, and I will see him back once we have achieved these conservative management goals for consideration at the time of total knee arthroplasty. Dr. Hernandez, thank you for this referral and opportunity to care for your patient. [facility] Radiologyon 12-19-2016 Radiology Type: OutpatientDictated by: Signed by: Transcribed by: Transcribed Date/Time: 12/19/2016 08:08Dictation Date/Time: 12/18/2016 16:29Report: DATE OF SERVICE: 12/18/2016 DIAGNOSTIC STUDY/INTERPRETATION/I MPRESSION: Plain film radiographs reviewed. Four views of the left knee demonstrate severe endstage arthritis of the knee. There is loss of joint space, subchondral sclerosis, osteophyte formation, idaq-qe-sglr contact, particularly in the medial compartment of the knee. Long standing films taken and reviewed today demonstrate a mechanical axis that falls through the medial compartment of the left lower extremity and the medial compartment of the replaced right lower extremity. There is soft tissue shadowing over the hip joints bilaterally, but there does appear to be mild arthritis. [facility] Vital Signs Date Time Vital Sign Value Performing Clinician Facility 12-13-2024 13:05-0400 Body temperature 98.3 [degF] Dr. Ata Hernandez MD Work Phone: [facility] 12-13-2024 13:05-0400 Diastolic blood pressure 82 mm[Hg] Dr. Ata Hernandez MD Work Phone: [facility] 12-13-2024 13:05-0400 Heart rate 78 /min Dr. Ata Hernandez MD Work Phone: [facility] 12-13-2024 13:05-0400 Respiratory rate 16 /min Dr. Ata Hernandez MD Work Phone: [facility] 12-13-2024 13:05-0400 SaO2% (BldA) [Mass fraction] 96 % Dr. Ata Hernandez MD Work Phone: [facility] 12-13-2024 13:05-0400 Systolic blood pressure 138 mm[Hg] Dr. Ata Hernandez MD Work Phone: [facility] 12-13-2024 10:43-0400 Body height 180.[address] Ata Hernandez MD Work Phone: [facility] 12-13-2024 10:43-0400 Body mass index (BMI) [Ratio] 32.8 kg/m2 Dr. Ata Hernandez MD Work Phone: [facility] 12-13-2024 10:43-0400 Body weight 106.[address] Ata Hernandez MD Work Phone: [facility] 12-01-2024 15:28-0400 Body temperature 98.3 [degF] Dr. Ata Hernandez MD Work Phone: [facility] 12-01-2024 15:28-0400 Diastolic blood pressure 99 mm[Hg] Dr. Ata Hernandez MD Work Phone: [facility] 12-01-2024 15:28-0400 Heart rate 80 /min Dr. Ata Hernandez MD Work Phone: [facility] 12-01-2024 15:28-0400 Respiratory rate 18 /min Dr. Ata Hernandez MD Work Phone: [facility] 12-01-2024 15:28-0400 SaO2% (BldA) [Mass fraction] 94 % Dr. Ata Hernandez MD Work Phone: [facility] 12-01-2024 15:28-0400 Systolic blood pressure 108 mm[Hg] Dr. Ata Hernandez MD Work Phone: [facility] 12-01-2024 14:23-0400 Inhaled oxygen flow rate 2 L/min Dr. Ata Hernandez MD Work Phone: [facility] 12-01-2024 10:53-0400 Body height 180.[address] Ata Hernandez MD Work Phone: [facility] 12-01-2024 10:53-0400 Body mass index (BMI) [Ratio] 33.5 kg/m2 Dr. Ata Hernandez MD Work Phone: 7(380)273-598276 [address] 12-01-2024 10:53-0400 Body weight [address] Ata Hernandez MD Work Phone: 3(680)755-084297 [place] [address] 11-09-2024 17:47-0400 Body temperature 97.4 [degF] Dr. Ata Hernandez MD Work Phone: 8(475)632-177697 [place] [address] 11-09-2024 17:47-0400 Diastolic blood pressure 80 mm[Hg] Dr. Ata Hernandez MD Work Phone: 5(270)370-980204 [place] [address] 11-09-2024 17:47-0400 Heart rate 69 /min Dr. Ata Hernandez MD Work Phone: 2(136)164-472904 [place] [address] 11-09-2024 17:47-0400 Respiratory rate 16 /min Dr. Ata Hernandez MD Work Phone: 9(399)657-306304 [place] [address] 11-09-2024 17:47-0400 SaO2% (BldA) [Mass fraction] 95 % Dr. Ata Hernandez MD Work Phone: 7(419)862-749897 [place] [address] 11-09-2024 17:47-0400 Systolic blood pressure 140 mm[Hg] Dr. Ata Hernandez MD Work Phone: 1(501)704-589704 [place] [address] 11-09-2024 13:20-0400 Body mass index (BMI) [Ratio] 32.8 kg/m2 Dr. Ata Hernandez MD Work Phone: [facility] 11-09-2024 13:20-0400 Body weight 106.[address] Ata Hernandez MD Work Phone: 8(448)684-225397 [place] [address] 11-09-2024 13:16-0400 Body height 180.[address] Ata Hernandez MD Work Phone: 9(876)237-590697 [place] [address] 10-22-2024 21:00-0400 Diastolic blood pressure 92 mm[Hg] Dr. Ata Hernandez MD Work Phone: 7(387)480-717197 [place] [address] 10-22-2024 21:00-0400 Heart rate 80 /min Dr. Ata Hernandez MD Work Phone: [facility] 10-22-2024 21:00-0400 Respiratory rate 15 /min Dr. Ata Hernandez MD Work Phone: [facility] 10-22-2024 21:00-0400 SaO2% (BldA) [Mass fraction] 94 % Dr. Ata Hernandez MD Work Phone: [facility] 10-22-2024 21:00-0400 Systolic blood pressure 155 mm[Hg] Dr. Ata Hernandez MD Work Phone: [facility] 10-22-2024 19:59-0400 Body temperature 97.8 [degF] Dr. Ata Hernandez MD Work Phone: [facility] 10-22-2024 15:33-0400 Body mass index (BMI) [Ratio] 32.2 kg/m2 Dr. Ata Hernandez MD Work Phone: [facility] 10-22-2024 15:33-0400 Body weight 104.[address] Ata Hernandez MD Work Phone: [facility] 10-12-2024 10:11-0400 Body height 180.3 cm Tommy Mei MD Work Phone: [facility] 10-12-2024 10:11-0400 Body mass index (BMI) [Ratio] 31.66 kg/m2 Tommy Mei MD Work Phone: [facility] 10-12-2024 10:11-0400 Body weight 102.97 kg Tommy Mei MD Work Phone: [facility] 10-12-2024 10:11-0400 Respiratory rate 18 /min Tommy Mei MD Work Phone: [facility] 09-09-2024 11:17-0400 Body height 180.3 cm Sharmila Espinoza CNP Work Phone: [facility] 09-09-2024 11:17-0400 Body mass index (BMI) [Ratio] 31.66 kg/m2 Sharmila Espinoza CNP Work Phone: [facility] 09-09-2024 11:17-0400 Body weight 102.97 kg Sharmila Espinoza CNP Work Phone: [facility] 09-09-2024 11:17-0400 Respiratory rate 16 /min Sharmila Espinoza CNP Work Phone: [facility] 08-17-2024 10:00-0400 Diastolic blood pressure 78 mm[Hg] Dr. Jyoti Hernandez DO Work Phone: [facility] 08-17-2024 10:00-0400 Heart rate 64 /min Dr. Jyoti Hernandez DO Work Phone: 8(369)852-171393 [place] [address] 08-17-2024 10:00-0400 Respiratory rate 18 /min Dr. Jyoti Hernandez DO Work Phone: 2(372)857-827793 [place] [address] 08-17-2024 10:00-0400 SaO2% (BldA) [Mass fraction] 98 % Dr. Jyoti Hernandez DO Work Phone: 4(172)118-200093 [place] [address] 08-17-2024 10:00-0400 Systolic blood pressure 134 mm[Hg] Dr. Jyoti Hernandez DO Work Phone: [facility] 08-16-2024 18:00-0400 Body temperature 97.9 [degF] Dr. Jyoti Hernandez DO Work Phone: [facility] 08-16-2024 16:42-0400 Body height 177.[address] Jyoti Hernandez DO Work Phone: [facility] 08-16-2024 16:42-0400 Body mass index (BMI) [Ratio] 33.6 kg/m2 Dr. Jyoti Hernandez DO Work Phone: 8(251)084-163393 [place] [address] 08-16-2024 16:42-0400 Body weight 106.[address] Jyoti Hernandez DO Work Phone: 2(561)470-077993 [place] [address] 08-13-2024 23:31-0400 Body temperature 98.3 [degF] Dr. Jyoti Hernandez DO Work Phone: [facility] 08-13-2024 23:31-0400 Diastolic blood pressure 78 mm[Hg] Dr. Jyoti Hernandez DO Work Phone: [facility] 08-13-2024 23:31-0400 Heart rate 89 /min Dr. Jyoti Hernandez DO Work Phone: [facility] 08-13-2024 23:31-0400 Respiratory rate 16 /min Dr. Jyoti Hernandez DO Work Phone: 3(657)432-633293 [place] [address] 08-13-2024 23:31-0400 SaO2% (BldA) [Mass fraction] 93 % Dr. Jyoti Hernandez DO Work Phone: 6(402)645-517793 [place] [address] 08-13-2024 23:31-0400 Systolic blood pressure 115 mm[Hg] Dr. Jyoti Hernandez DO Work Phone: 4(632)848-223793 [place] [address] 08-13-2024 19:50-0400 Body mass index (BMI) [Ratio] 33.5 kg/m2 Dr. Jyoti Hernandez DO Work Phone: 0(113)616-929393 [place] [address] 08-13-2024 19:50-0400 Body weight 106.[address] Jyoti Hernandez DO Work Phone: [facility] 08-13-2024 17:07-0400 Body height 177.[address] Jyoti Hernandez DO Work Phone: [facility] 07-27-2024 13:06-0500 Body height 180.3 cm Ata Haus DO Work Phone: [facility] 07-27-2024 13:06-0500 Body mass index (BMI) [Ratio] 31.66 kg/m2 Ata Haus DO Work Phone: [facility] 07-27-2024 13:06-0500 Body temperature 98.6 [degF] Ata Haus DO Work Phone: [facility] 07-27-2024 13:06-0500 Body weight 102.97 kg Ata Haus DO Work Phone: [facility] 07-27-2024 13:06-0500 Diastolic blood pressure 50 mm[Hg] Ata Haus DO Work Phone: [facility] 07-27-2024 13:06-0500 Heart rate 117 /min Ata Haus DO Work Phone: [facility] 07-27-2024 13:06-0500 SaO2% (BldA) [Mass fraction] 92 % Ata Haus DO Work Phone: [facility] 07-27-2024 13:06-0500 Systolic blood pressure 102 mm[Hg] Ata Haus DO Work Phone: [facility] 07-16-2024 14:57-0500 Body temperature 98.1 [degF] Dr. Jyoti Hernandez DO Work Phone: [facility] 07-16-2024 14:57-0500 Diastolic blood pressure 68 mm[Hg] Dr. Jyoti Hernandez DO Work Phone: [facility] 07-16-2024 14:57-0500 Heart rate 84 /min Dr. Jyoti Hernandez DO Work Phone: [facility] 07-16-2024 14:57-0500 Respiratory rate 18 /min Dr. Jyoti Hernandez DO Work Phone: [facility] 07-16-2024 14:57-0500 SaO2% (BldA) [Mass fraction] 93 % Dr. Jyoti Hernandez DO Work Phone: [facility] 07-16-2024 14:57-0500 Systolic blood pressure 141 mm[Hg] Dr. Jyoti Hernandez DO Work Phone: [facility] 07-16-2024 11:54-0500 Body mass index (BMI) [Ratio] 32.8 kg/m2 Dr. Jyoti Hernandez DO Work Phone: [facility] 07-16-2024 11:54-0500 Body weight 103.[address] Jyoti Hernandez DO Work Phone: 7(028)895-686393 [place] [address] 07-15-2024 02:10-0500 Inhaled oxygen flow rate 2 L/min Dr. Jyoti Hernandez DO Work Phone: 6(637)405-673708 [address] 07-01-2024 13:25-0500 Body temperature 97.8 [degF] Dr. Jyoti Hernandez DO Work Phone: 0(092)202-769593 [place] [address] 07-01-2024 13:25-0500 Diastolic blood pressure 61 mm[Hg] Dr. Jyoti Hernandez DO Work Phone: 4(710)924-167408 [address] 07-01-2024 13:25-0500 Heart rate 81 /min Dr. Jyoti Hernandez DO Work Phone: 3(839)999-820676 [place] [address] 07-01-2024 13:25-0500 Respiratory rate 18 /min Dr. Jyoti Hernandez DO Work Phone: 8(844)787-445076 [place] [address] 07-01-2024 13:25-0500 SaO2% (BldA) [Mass fraction] 94 % Dr. Jyoti Hernandez DO Work Phone: 7(376)051-816993 [place] [address] 07-01-2024 13:25-0500 Systolic blood pressure 133 mm[Hg] Dr. Jyoti Hernandez DO Work Phone: 5(445)896-569493 [place] [address] 07-01-2024 09:11-0500 Inhaled oxygen flow rate 2 L/min Dr. Jyoti Hernandez DO Work Phone: 1(161)145-811193 [place] [address] 07-01-2024 06:00-0500 Body mass index (BMI) [Ratio] 32.2 kg/m2 Dr. Jyoti Hernandez DO Work Phone: 6(737)606-229693 [place] [address] 07-01-2024 06:00-0500 Body weight 104.[address] Jyoti Henrandez DO Work Phone: 2(832)176-446193 [place] [address] 01-05-2025 10:46-0500 Heart rate 85 /min Dr. Jyoti Hernandez DO Work Phone: [facility] 06-06-2024 10:46-0500 Respiratory rate 18 /min Dr. Jyoti Hernandez DO Work Phone: [facility] 06-06-2024 08:17-0500 Body temperature 97.9 [degF] Dr. Jyoti Hernandez DO Work Phone: [facility] 06-06-2024 08:17-0500 Diastolic blood pressure 68 mm[Hg] Dr. Jyoti Hernandez DO Work Phone: [facility] 06-06-2024 08:17-0500 SaO2% (BldA) [Mass fraction] 94 % Dr. Jyoti Hernandez DO Work Phone: [facility] 06-06-2024 08:17-0500 Systolic blood pressure 147 mm[Hg] Dr. Jyoti Hernandez DO Work Phone: [facility] 06-06-2024 06:00-0500 Body mass index (BMI) [Ratio] 32.6 kg/m2 Dr. Jyoti Hernandez DO Work Phone: [facility] 06-06-2024 06:00-0500 Body weight 105.[address] Jyoti Hernandez DO Work Phone: [facility] 05-12-2024 00:30-0500 Diastolic blood pressure 64 mm[Hg] Ata Haus DO Work Phone: [facility] 05-12-2024 00:30-0500 Heart rate 45 /min Ata Haus DO Work Phone: [facility] 05-12-2024 00:30-0500 Respiratory rate 18 /min Ata Haus DO Work Phone: [facility] 05-12-2024 00:30-0500 SaO2% (BldA) [Mass fraction] 95 % Ata Haus DO Work Phone: [facility] 05-12-2024 00:30-0500 Systolic blood pressure 150 mm[Hg] Ata Haus DO Work Phone: [facility] 05-11-2024 18:50-0500 Body height 180.3 cm Ata Haus DO Work Phone: [facility] 05-11-2024 18:50-0500 Body mass index (BMI) [Ratio] 31.66 kg/m2 Ata Haus DO Work Phone: [facility] 05-11-2024 18:50-0500 Body temperature 97.11 [degF] Ata Haus DO Work Phone: [facility] 05-11-2024 18:50-0500 Body weight 102.97 kg Ata Haus DO Work Phone: [facility] 04-27-2024 13:47-0500 Body height 180.3 cm Ata Haus DO Work Phone: [facility] 04-27-2024 13:47-0500 Body temperature 97 [degF] Ata Haus DO Work Phone: [facility] 04-27-2024 13:47-0500 Diastolic blood pressure 64 mm[Hg] Ata Haus DO Work Phone: [facility] 04-27-2024 13:47-0500 Heart rate 108 /min Ata Haus DO Work Phone: [facility] 04-27-2024 13:47-0500 Respiratory rate 16 /min Ata Haus DO Work Phone: [facility] 04-27-2024 13:47-0500 SaO2% (BldA) [Mass fraction] 96 % Ata Haus DO Work Phone: [facility] 04-27-2024 13:47-0500 Systolic blood pressure 118 mm[Hg] Ata Haus DO Work Phone: [facility] 04-06-2024 11:49-0500 Blood Pressure Location YAYA FOSTER MD [facility] 04-06-2024 11:49-0500 Body height 180.3 cm YAYA FOSTER MD [facility] 04-06-2024 11:49-0500 Body temperature 98.6 [degF] YAYA FOSTER MD [facility] 04-06-2024 11:49-0500 Body weight 103.7 kg YAYA FOSTER MD [facility] 04-06-2024 11:49-0500 Body weight 31.9 kg/m2 YAYA FOSTER MD [facility] 04-06-2024 11:49-0500 Diastolic Blood Pressure Non-Invasive 80 mm[Hg] YAYA FOSTER MD [facility] 04-06-2024 11:49-0500 Heart rate 50 /min YAYA FOSTER MD [facility] 04-06-2024 11:49-0500 Respiratory rate 18 /min YAYA FOSTER MD [facility] 04-06-2024 11:49-0500 Systolic Blood Pressure Non-Invasive 150 mm[Hg] YAYA FOSTER MD [facility] 04-01-2024 13:27-0400 Body mass index (BMI) [Ratio] 32.51 kg/m2 Judy Ley MD Work Phone: [facility] 04-01-2024 13:27-0400 Body weight 105.69 kg Judy Ley MD Work Phone: [facility] 03-23-2024 15:16-0400 Body height 180.3 cm Ata Hernandez DO Work Phone: [facility] 03-23-2024 15:16-0400 Body mass index (BMI) [Ratio] 31.24 kg/m2 Taa Haus DO Work Phone: [facility] 03-23-2024 15:16-0400 Body temperature 97.59 [degF] Ata Haus DO Work Phone: [facility] 03-23-2024 15:16-0400 Body weight 101.61 kg Ata Haus DO Work Phone: [facility] 03-23-2024 15:16-0400 Diastolic blood pressure 60 mm[Hg] Ata Haus DO Work Phone: [facility] 03-23-2024 15:16-0400 Heart rate 111 /min Ata Haus DO Work Phone: [facility] 03-23-2024 15:16-0400 SaO2% (BldA) [Mass fraction] 94 % Ata Haus DO Work Phone: [facility] 03-23-2024 15:16-0400 Systolic blood pressure 138 mm[Hg] Ata Haus DO Work Phone: [facility] 03-11-2024 07:00-0400 Body temperature 97.2 [degF] Emily Bustillos MD Work Phone: [facility] 03-11-2024 07:00-0400 Diastolic blood pressure 66 mm[Hg] Emily Bustillos MD Work Phone: [facility] 03-11-2024 07:00-0400 Heart rate 75 /min Emily Bustillos MD Work Phone: [facility] 03-11-2024 07:00-0400 Respiratory rate 16 /min Emily Bustillos MD Work Phone: [facility] 03-11-2024 07:00-0400 SaO2% (BldA) [Mass fraction] 94 % Emily Bustillos MD Work Phone: [facility] 03-11-2024 07:00-0400 Systolic blood pressure 104 mm[Hg] Emily Bustillos MD Work Phone: [facility] 03-11-2024 03:00-0400 Body mass index (BMI) [Ratio] 31.84 kg/m2 Emily Bustillos MD Work Phone: [facility] 03-11-2024 03:00-0400 Body weight 103.5 kg Emily Bustillos MD Work Phone: [facility] 03-08-2024 10:50-0400 Body height 180.3 cm Emily Bustillos MD Work Phone: [facility] 02-10-2024 01:54-0400 Diastolic blood pressure 81 mm[Hg] Gil Botello MD Work Phone: [facility] 02-10-2024 01:54-0400 Heart rate 84 /min Gil Botello MD Work Phone: [facility] 02-10-2024 01:54-0400 Respiratory rate 14 /min Gil Botello MD Work Phone: [facility] 02-10-2024 01:54-0400 SaO2% (BldA) [Mass fraction] 93 % Gil Botello MD Work Phone: [facility] 02-10-2024 01:54-0400 Systolic blood pressure 116 mm[Hg] Gil Botello MD Work Phone: [facility] 02-09-2024 22:56-0400 Body height 180.3 cm Gil Botello MD Work Phone: [facility] 02-09-2024 22:56-0400 Body mass index (BMI) [Ratio] 30.88 kg/m2 Gil Botello MD Work Phone: [facility] 02-09-2024 22:56-0400 Body temperature 99.39 [degF] Gil Botello MD Work Phone: [facility] 02-09-2024 22:56-0400 Body weight 100.43 kg Gil Botello MD Work Phone: [facility] 01-21-2024 11:25-0400 Body height 180.3 cm Ata Mane MD Work Phone: [facility] 01-21-2024 11:25-0400 Body mass index (BMI) [Ratio] 30.88 kg/m2 Ata Mane MD Work Phone: [facility] 01-21-2024 11:25-0400 Body weight 100.43 kg Ata Mane MD Work Phone: [facility] 01-21-2024 11:25-0400 Diastolic blood pressure 60 mm[Hg] Ata Mane MD Work Phone: [facility] 01-21-2024 11:25-0400 Heart rate 44 /min Ata Mane MD Work Phone: [facility] 01-21-2024 11:25-0400 Respiratory rate 16 /min Ata Mane MD Work Phone: [facility] 01-21-2024 11:25-0400 SaO2% (BldA) [Mass fraction] 90 % Ata Mane MD Work Phone: [facility] 01-21-2024 11:25-0400 Systolic blood pressure 113 mm[Hg] Ata Mane MD Work Phone: [facility] 12-15-2023 11:16-0400 Body mass index (BMI) [Ratio] 29.57 kg/m2 John Bah MD Work Phone: [facility] 12-15-2023 11:16-0400 Body weight 96.16 kg John Bah MD Work Phone: [facility] 12-15-2023 11:16-0400 Respiratory rate 18 /min John Bah MD Work Phone: [facility] 12-10-2023 12:46-0400 Body height 180.3 cm Griselda Iqbal CNP Work Phone: [facility] 12-10-2023 12:46-0400 Body mass index (BMI) [Ratio] 31.24 kg/m2 Nyoka Fauser [employer] Work Phone: [facility] 12-10-2023 12:46-0400 Body weight 101.61 kg Nyoka Fauser [employer] Work Phone: [facility] 12-10-2023 12:46-0400 Diastolic blood pressure 66 mm[Hg] Nyoka Fauser [employer] Work Phone: [facility] 12-10-2023 12:46-0400 Heart rate 66 /min Nyoka Fauser [employer] Work Phone: [facility] 12-10-2023 12:46-0400 Systolic blood pressure 102 mm[Hg] Nyoka Fauser [employer] Work Phone: [facility] 11-26-2023 14:02-0400 Diastolic blood pressure 60 mm[Hg] Nyoka Fauser [employer] Work Phone: [facility] 11-26-2023 14:02-0400 Heart rate 49 /min Nyoka Fauser [employer] Work Phone: [facility] [facility]-2023 14:02-0400 Systolic blood pressure 106 mm[Hg] Nyoka Fauser CLINICAL TRIAL HEAD Work Phone: [facility] 11-12-2023 13:06-0400 Respiratory rate 16 /min John Bah MD Work Phone: [facility] 10-20-2023 08:21-0400 Body height 177.8 cm Cali Jacob MD Work Phone: [facility] 10-20-2023 08:21-0400 Body mass index (BMI) [Ratio] 32 kg/m2 Cali Jacob MD Work Phone: [facility] 10-20-2023 08:21-0400 Body weight 101.15 kg Cali Jacob MD Work Phone: [facility] 10-20-2023 08:21-0400 Diastolic blood pressure 55 mm[Hg] Cali Jacob MD Work Phone: [facility] 10-20-2023 08:21-0400 Heart rate 80 /min Cali Jacob MD Work Phone: [facility] 10-20-2023 08:21-0400 Systolic blood pressure 109 mm[Hg] Cali Jacob MD Work Phone: [facility] 09-19-2023 16:25-0400 Diastolic blood pressure 50 mm[Hg] [address] 09-19-2023 16:25-0400 Heart rate 78 /min [address] 09-19-2023 16:25-0400 Respiratory rate 16 /min [address] 09-19-2023 16:25-0400 SaO2% (BldA) [Mass fraction] 100 % [address] 09-19-2023 16:25-0400 Systolic blood pressure 106 mm[Hg] [address] 09-19-2023 13:06-0400 Body height 180.[address] 09-19-2023 13:06-0400 Body mass index (BMI) [Ratio] 29.57 kg/m2 [address] 09-19-2023 13:06-0400 Body temperature 99 [degF] [address] 09-19-2023 13:06-0400 Body weight 96.[address] 09-15-2023 10:23-0400 Body height 177.8 cm Cali Jacob MD Work Phone: [facility] 09-15-2023 10:23-0400 Body mass index (BMI) [Ratio] 32.28 kg/m2 Cali Jacob MD Work Phone: [facility] 09-15-2023 10:23-0400 Body weight 102.06 kg Cali Jacob MD Work Phone: [facility] 09-15-2023 10:23-0400 Diastolic blood pressure 58 mm[Hg] Cali Jacob MD Work Phone: [facility] 09-15-2023 10:23-0400 Heart rate 90 /min Cali Jacob MD Work Phone: [facility] 09-15-2023 10:23-0400 Systolic blood pressure 94 mm[Hg] Cali Jacob MD Work Phone: [facility] 08-13-2023 08:23-0400 Body height 177.8 cm Cali Jacob MD Work Phone: [facility] 08-13-2023 08:23-0400 Body mass index (BMI) [Ratio] 32.28 kg/m2 Cali Jacob MD Work Phone: [facility] 08-13-2023 08:23-0400 Body weight 102.06 kg Cali Jacob MD Work Phone: [facility] 08-13-2023 08:23-0400 Diastolic blood pressure 61 mm[Hg] Cali Jacob MD Work Phone: [facility] 08-13-2023 08:23-0400 Heart rate 102 /min Cali Jacob MD Work Phone: [facility] 08-13-2023 08:23-0400 Systolic blood pressure 90 mm[Hg] Cali Jacob MD Work Phone: [facility] 07-10-2023 10:27-0500 Body height 180.3 cm Genet Stein MD Work Phone: [facility] 07-10-2023 10:27-0500 Body mass index (BMI) [Ratio] 30.82 kg/m2 Genet Stein MD Work Phone: [facility] 07-10-2023 10:27-0500 Body weight 100.25 kg Genet Stein MD Work Phone: [facility] 07-10-2023 10:27-0500 Diastolic blood pressure 63 mm[Hg] Genet Stein MD Work Phone: [facility] 07-10-2023 10:27-0500 Heart rate 108 /min Genet Stein MD Work Phone: [facility] 07-10-2023 10:27-0500 SaO2% (BldA) [Mass fraction] 94 % Genet Stein MD Work Phone: [facility] 07-10-2023 10:27-0500 Systolic blood pressure 97 mm[Hg] Genet Stein MD Work Phone: [facility] 06-24-2023 14:38-0500 Diastolic blood pressure 63 mm[Hg] John Bah MD Work Phone: [facility] 06-24-2023 14:38-0500 Heart rate 70 /min John Bah MD Work Phone: [facility] 06-24-2023 14:38-0500 Respiratory rate 18 /min John Bah MD Work Phone: [facility] 06-24-2023 14:38-0500 SaO2% (BldA) [Mass fraction] 94 % John Bah MD Work Phone: [facility] 06-24-2023 14:38-0500 Systolic blood pressure 110 mm[Hg] John Bah MD Work Phone: [facility] 06-24-2023 13:53-0500 Body temperature 97.81 [degF] John Bah MD Work Phone: [facility] 06-23-2023 09:00-0500 Diastolic blood pressure 60 mm[Hg] Cali Jacob MD Work Phone: [facility] 06-23-2023 09:00-0500 Heart rate 111 /min Cali Jacob MD Work Phone: [facility] 06-23-2023 09:00-0500 Systolic blood pressure 90 mm[Hg] Cali Jacob MD Work Phone: [facility] 06-23-2023 08:40-0500 Body height 180.3 cm Cali Jacob MD Work Phone: [facility] 06-23-2023 08:40-0500 Body mass index (BMI) [Ratio] 30.68 kg/m2 Cali Jacob MD Work Phone: [facility] 06-23-2023 08:40-0500 Body weight 99.79 kg Cali Jacob MD Work Phone: [facility] 06-12-2023 06:19-0500 Body temperature 99.1 [degF] Gil Botello MD Work Phone: [facility] 06-12-2023 06:00-0500 Diastolic blood pressure 59 mm[Hg] Gil Botello MD Work Phone: [facility] 06-12-2023 06:00-0500 Heart rate 78 /min Gil Botello MD Work Phone: [facility] 06-12-2023 06:00-0500 Respiratory rate 16 /min Gil Botello MD Work Phone: [facility] 06-12-2023 06:00-0500 SaO2% (BldA) [Mass fraction] 97 % Gil Botello MD Work Phone: [facility] 06-12-2023 06:00-0500 Systolic blood pressure 122 mm[Hg] Gil Botello MD Work Phone: [facility] 06-12-2023 02:17-0500 Body height 180.3 cm Gil Botello MD Work Phone: [facility] 06-12-2023 02:17-0500 Body mass index (BMI) [Ratio] 29.99 kg/m2 Gil Botello MD Work Phone: [facility] 06-12-2023 02:17-0500 Body weight 97.52 kg Gil Botello MD Work Phone: [facility] 05-31-2023 00:13-0500 Diastolic blood pressure 53 mm[Hg] John Powell MD Work Phone: [facility] 05-31-2023 00:13-0500 Heart rate 74 /min John Powell MD Work Phone: [facility] 05-31-2023 00:13-0500 Respiratory rate 18 /min John Powell MD Work Phone: [facility] 05-31-2023 00:13-0500 SaO2% (BldA) [Mass fraction] 93 % John Powell MD Work Phone: [facility] 05-31-2023 00:13-0500 Systolic blood pressure 102 mm[Hg] John Powell MD Work Phone: [facility] 05-30-2023 15:37-0500 Body height 180.3 cm John Powell MD Work Phone: [facility] 05-30-2023 15:37-0500 Body mass index (BMI) [Ratio] 32.22 kg/m2 John Powell MD Work Phone: [facility] 05-30-2023 15:37-0500 Body temperature 98.49 [degF] John Powell MD Work Phone: [facility] 05-30-2023 15:37-0500 Body weight 104.78 kg John Powell MD Work Phone: [facility] 05-01-2023 07:46-0500 Body height 180.3 cm Joaquin Tillman Jr., DO Work Phone: [facility] 05-01-2023 07:46-0500 Body mass index (BMI) [Ratio] 32.92 kg/m2 Joaquin Tillman Jr., DO Work Phone: [facility] 05-01-2023 07:46-0500 Body weight 107.05 kg Joaquin Tillman Jr., DO Work Phone: [facility] 04-10-2023 16:00-0500 Diastolic blood pressure 73 mm[Hg] Tiana De León DO Work Phone: [facility] 04-10-2023 16:00-0500 Heart rate 73 /min Tiana De León DO Work Phone: [facility] 04-10-2023 16:00-0500 Respiratory rate 20 /min Tiana De León DO Work Phone: [facility] 04-10-2023 16:00-0500 SaO2% (BldA) [Mass fraction] 97 % Tiana De León DO Work Phone: [facility] 04-10-2023 16:00-0500 Systolic blood pressure 127 mm[Hg] Tiana De León DO Work Phone: [facility] 04-10-2023 12:42-0500 Body height 180.3 cm Tiana De León DO Work Phone: [facility] 04-10-2023 12:42-0500 Body temperature 97.5 [degF] Tiana De León DO Work Phone: [facility] 04-07-2023 12:19-0500 Body height 180.3 cm Harjeet Mercedes DO Work Phone: [facility] 04-07-2023 12:19-0500 Body mass index (BMI) [Ratio] 32.92 kg/m2 Harjeet Mercedes DO Work Phone: [facility] 04-07-2023 12:19-0500 Body weight 107 kg Harjeet Hernandezsadaf DO Work Phone: [facility] 04-07-2023 11:57-0500 Body temperature 98.1 [degF] Harjeet Hernandezsadaf DO Work Phone: [facility] 04-07-2023 11:57-0500 Diastolic blood pressure 75 mm[Hg] Harjeet Long DO Work Phone: [facility] 04-07-2023 11:57-0500 Heart rate 77 /min Harjeet Long DO Work Phone: [facility] 04-07-2023 11:57-0500 Respiratory rate 20 /min Harjeet Long DO Work Phone: [facility] 04-07-2023 11:57-0500 SaO2% (BldA) [Mass fraction] 91 % Harjeet Long DO Work Phone: [facility] 04-07-2023 11:57-0500 Systolic blood pressure 133 mm[Hg] Harjeet Long DO Work Phone: [facility] 03-26-2023 15:06-0400 Body height 180.3 cm Joaquin Tillman Jr., DO Work Phone: [facility] 03-26-2023 15:06-0400 Body mass index (BMI) [Ratio] 32.92 kg/m2 Joaquin Tillman Jr., DO Work Phone: [facility] 03-26-2023 15:06-0400 Body weight 107.05 kg Joaquin Tillman Jr., DO Work Phone: [facility] 03-26-2023 15:06-0400 Diastolic blood pressure 81 mm[Hg] Joaquin Tillman Jr., DO Work Phone: [facility] 03-26-2023 15:06-0400 Heart rate 119 /min Joaquin Tillman Jr., DO Work Phone: [facility] 03-26-2023 15:06-0400 SaO2% (BldA) [Mass fraction] 95 % Joaquin Tillman Jr., DO Work Phone: [facility] 03-26-2023 15:06-0400 Systolic blood pressure 134 mm[Hg] Joaquin Tillman Jr., DO Work Phone: [facility] 03-05-2023 14:11-0400 Body height 180.3 cm Tiana De León DO Work Phone: [facility] 03-05-2023 14:11-0400 Body mass index (BMI) [Ratio] 33.05 kg/m2 Tiana De León DO Work Phone: [facility] 03-05-2023 14:11-0400 Body weight 107.5 kg Tiana De León DO Work Phone: [facility] 03-05-2023 [id number] Diastolic blood pressure 76 mm[Hg] Tiana De León DO Work Phone: [facility] 03-05-2023 [id number] Heart rate 106 /min Tiana De León DO Work Phone: [facility] 03-05-2023 [id number] Systolic blood pressure 122 mm[Hg] Tiana De León DO Work Phone: [facility] 02-04-2023 14:[id number] Body weight 107.96 kg Ata P Haus Work Phone: [facility] 3 DO Work Phone: 02-04-2023 [id number] Diastolic blood pressure 64 mm[Hg] Ata P Haus Work Phone: [facility] 3 DO Work Phone: 02-04-2023 14:290400 Heart rate 104 /min Ata P Haus Work Phone: [facility] 3 DO Work Phone: 02-04-2023 14:290400 Systolic blood pressure 110 mm[Hg] Ata P Haus Work Phone: [facility] DO Work Phone: 01-27-2023 [id number] Body height 177.8 cm Ata Haus DO Work Phone: [facility] 01-27-2023 14:22-0400 Body temperature 97.59 [degF] Ata Haus DO Work Phone: [facility] 01-27-2023 14:22-0400 Diastolic blood pressure 80 mm[Hg] Aat Haus DO Work Phone: [facility] 01-27-2023 14:22-0400 Heart rate 110 /min Ata Haus DO Work Phone: [facility] 01-27-2023 14:22-0400 Respiratory rate 20 /min Ata Haus DO Work Phone: [facility] 01-27-2023 14:22-0400 SaO2% (BldA) [Mass fraction] 98 % Ata Haus DO Work Phone: [facility] 01-27-2023 14:22-0400 Systolic blood pressure 110 mm[Hg] Ata Haus DO Work Phone: [facility] 01-11-2023 09:41-0400 Body temperature 98.42 [degF] Ata Haus Other Phone: [facility] 01-11-2023 09:41-0400 Diastolic blood pressure 66 mm[Hg] Ata Haus Other Phone: [facility] 01-11-2023 09:41-0400 Heart rate 75 /min Ata Haus Other Phone: [facility] 01-11-2023 09:41-0400 Respiratory rate 18 /min Ata Haus Other Phone: [facility] 01-11-2023 09:41-0400 SaO2% (BldA) [Mass fraction] 94 % Ata Haus Other Phone: [facility] 01-11-2023 09:41-0400 Systolic blood pressure 139 mm[Hg] Ata Haus Other Phone: [facility] 12-26-2022 14:21-0400 Body height 177.8 cm Ata Haus DO Work Phone: [facility] 12-26-2022 14:21-0400 Body mass index (BMI) [Ratio] 34.55 kg/m2 Ata Haus DO Work Phone: [facility] 12-26-2022 14:21-0400 Body temperature 99 [degF] Ata Haus DO Work Phone: [facility] 12-26-2022 14:21-0400 Body weight 109.23 kg Ata Haus DO Work Phone: [facility] 12-26-2022 14:21-0400 Diastolic blood pressure 70 mm[Hg] Ata Haus DO Work Phone: [facility] 12-26-2022 14:21-0400 Heart rate 110 /min Ata Haus DO Work Phone: [facility] 12-26-2022 14:21-0400 Respiratory rate 18 /min Ata Haus DO Work Phone: [facility] 12-26-2022 14:21-0400 SaO2% (BldA) [Mass fraction] 97 % Ata Haus DO Work Phone: [facility] 12-26-2022 14:21-0400 Systolic blood pressure 114 mm[Hg] Ata Haus DO Work Phone: [facility] 12-09-2022 11:18-0400 Body weight 116.12 kg Ata P Haus Work Phone: [facility] DO Work Phone: 12-09-2022 11:18-0400 Diastolic blood pressure 80 mm[Hg] Ata P Haus Work Phone: [facility] DO Work Phone: 12-09-2022 11:18-0400 Systolic blood pressure 120 mm[Hg] Ata P Haus Work Phone: [facility] DO Work Phone: 11-29-2022 18:10-0400 Body temperature 98.6 [degF] Ata Haus Other Phone: [facility] 11-29-2022 18:10-0400 Diastolic blood pressure 56 mm[Hg] Ata Haus Other Phone: [facility] 11-29-2022 18:10-0400 Heart rate 89 /min Ata Haus Other Phone: [facility] 11-29-2022 18:10-0400 Respiratory rate 18 /min Ata Haus Other Phone: [facility] 11-29-2022 18:10-0400 SaO2% (BldA) [Mass fraction] 90 % Ata Haus Other Phone: [facility] 11-29-2022 18:10-0400 Systolic blood pressure 131 mm[Hg] Ata Haus Other Phone: [facility] 05-02-2021 14:21-0500 Body height 177.8 cm Gifty Landrum CNP Work Phone: [facility] 05-02-2021 14:21-0500 Body mass index (BMI) [Ratio] 44.91 kg/m2 Gifty Landrum CNP Work Phone: [facility] 05-02-2021 14:21-0500 Body weight 141.98 kg Gifty Landrumakhil LOUIE Work Phone: [facility] 05-02-2021 11:41-0500 Body height 177.8 cm Natalia Porras MD Work Phone: [facility] 05-02-2021 11:41-0500 Body mass index (BMI) [Ratio] 44.91 kg/m2 Natalia Porras MD Work Phone: [facility] 05-02-2021 11:41-0500 Body temperature 97.81 [degF] Natalia Porras MD Work Phone: [facility] 05-02-2021 11:41-0500 Body weight 141.98 kg Natalia Porras MD Work Phone: [facility] 05-02-2021 11:41-0500 Diastolic blood pressure 90 mm[Hg] Natalia Porras MD Work Phone: [facility] 05-02-2021 11:41-0500 Heart rate 100 /min Natalia Porras MD Work Phone: [facility] 05-02-2021 11:41-0500 SaO2% (BldA) [Mass fraction] 98 % Natalia Porras MD Work Phone: [facility] 05-02-2021 11:41-0500 Systolic blood pressure 150 mm[Hg] Natalia Porras MD Work Phone: [facility] 12-27-2020 13:11-0400 Body height 180.3 cm Chirag Hoang MD Work Phone: [facility] 12-27-2020 13:11-0400 Body mass index (BMI) [Ratio] 42.12 kg/m2 Chirag Hoang MD Work Phone: [facility] 12-27-2020 13:11-0400 Body temperature 97.5 [degF] Chirag Hoang MD Work Phone: [facility] 12-27-2020 13:11-0400 Body weight 136.99 kg Chirag Hoang MD Work Phone: [facility] 12-27-2020 13:11-0400 Diastolic blood pressure 70 mm[Hg] Chirag Hoang MD Work Phone: [facility] 12-27-2020 13:11-0400 Heart rate 112 /min Chirag Hoang MD Work Phone: [facility] 12-27-2020 13:11-0400 SaO2% (BldA) [Mass fraction] 95 % Chirag Hoang MD Work Phone: [facility] 12-27-2020 13:11-0400 Systolic blood pressure 142 mm[Hg] Chirag Hoang MD Work Phone: [facility] 12-20-2020 10:46-0400 Body height 180.3 cm Chirag Hoang MD Work Phone: [facility] 12-20-2020 10:46-0400 Body mass index (BMI) [Ratio] 42.2 kg/m2 Chirag Hoang MD Work Phone: [facility] 12-20-2020 10:46-0400 Body temperature 97.5 [degF] Chirag Hoang MD Work Phone: [facility] 12-20-2020 10:46-0400 Body weight 137.26 kg Chirag Hoang MD Work Phone: [facility] 12-20-2020 10:46-0400 Diastolic blood pressure 84 mm[Hg] Chirag Hoang MD Work Phone: [facility] 12-20-2020 10:46-0400 Heart rate 101 /min Chirag Hoang MD Work Phone: [facility] 12-20-2020 10:46-0400 SaO2% (BldA) [Mass fraction] 95 % Chirag Hoang MD Work Phone: [facility] 12-20-2020 10:46-0400 Systolic blood pressure 112 mm[Hg] Chirag Hoang MD Work Phone: [facility] 12-12-2020 14:23-0400 Body height 180.3 cm Gifty Landrum CLINICAL TRIAL HEAD Work Phone: [facility] 12-12-2020 14:23-0400 Body mass index (BMI) [Ratio] 41.42 kg/m2 Gifty Joneston CLINICAL TRIAL HEAD Work Phone: [facility] 12-12-2020 14:23-0400 Body weight 134.72 kg Gifty Landrum CLINICAL TRIAL HEAD Work Phone: [facility] 12-12-2020 14:23-0400 Respiratory rate 18 /min Gifty Landrum LIBAN Work Phone: [facility] 11-01-2020 12:51-0400 Body height 180.3 cm Bam Lambert MD Work Phone: [facility] 11-01-2020 12:51-0400 Body mass index (BMI) [Ratio] 41.42 kg/m2 Bam Lambert MD Work Phone: [facility] 11-01-2020 12:51-0400 Body weight 134.72 kg Bam Lambert MD Work Phone: [facility] 11-01-2020 12:51-0400 Respiratory rate 16 /min Bam Lambert MD Work Phone: [facility] 10-19-2020 10:31-0400 Body height 180.3 cm [facility] 10-19-2020 10:31-0400 Body mass index (BMI) [Ratio] 41.42 kg/m2 [facility] 10-19-2020 10:31-0400 Body weight 134.72 kg [facility] 10-19-2020 10:31-0400 Respiratory rate 18 /min [facility] 10-19-2020 10:31-0400 SaO2% (BldA) [Mass fraction] 98 % [facility] 10-17-2020 13:30-0400 Diastolic blood pressure 86 mm[Hg] Bam Lambert MD Work Phone: [facility] 10-17-2020 13:30-0400 Heart rate 74 /min Bam Lambert MD Work Phone: [facility] 10-17-2020 13:30-0400 SaO2% (BldA) [Mass fraction] 93 % Bam Lambert MD Work Phone: [facility] 10-17-2020 13:30-0400 Systolic blood pressure 141 mm[Hg] Bam Lambert MD Work Phone: [facility] [facility] 10-17-2020 12:15-0400 Respiratory rate 16 /min Bam Lambert MD Work Phone: [facility] 10-17-2020 12:00-0400 Body temperature 97.39 [degF] Bam Lambert MD Work Phone: [facility] 10-17-2020 08:07-0400 Body height 180.3 cm Bam Lambert MD Work Phone: [facility] 10-17-2020 08:07-0400 Body mass index (BMI) [Ratio] 41.42 kg/m2 Bam Lambert MD Work Phone: [facility] 10-17-2020 08:07-0400 Body weight 134.72 kg Bam Lambert MD Work Phone: [facility] 10-12-2020 11:51-0400 Body height 180.3 cm Bam Lambert MD Work Phone: [facility] 10-12-2020 11:51-0400 Body mass index (BMI) [Ratio] 41.42 kg/m2 Bam Lambert MD Work Phone: [facility] 10-12-2020 11:51-0400 Body weight 134.72 kg Bam Lambert MD Work Phone: [facility] 10-12-2020 11:51-0400 Respiratory rate 18 /min Bam Lambert MD Work Phone: [facility] 10-12-2020 11:51-0400 SaO2% (BldA) [Mass fraction] 98 % [facility]am Lambert [facility] 09-28-2020 10:53-0400 Diastolic blood pressure 77 mm[Hg] Bam Lambert MD [facility] 09-28-2020 10:53-0400 Heart rate 77 /min Bam Lambert MD Work Phone: [facility] 09-28-2020 10:53-0400 Respiratory rate 16 /min Bam Lambert MD [facility] 09-28-2020 10:53-0400 SaO2% (BldA) [Mass fraction] 92 % Bam Lambert MD Work Phone: [facility] [facility] 09-28-2020 10:53-0400 Systolic blood pressure 163 mm[Hg] Bam Lambert MD Work Phone: [facility] [facility] 09-28-2020 10:08-0400 Body temperature 98.01 [degF] Bam Lambert MD Work Phone: [facility] 09-28-2020 06:30-0400 Body height 180.3 cm Bam Lambert MD Work Phone: [facility] [facility] 09-28-2020 06:30-0400 Body mass index (BMI) [Ratio] 41.42 kg/m2 Bam Lambert MD Work Phone: [facility] [facility] 09-28-2020 06:30-0400 Body weight 134.72 kg Bam Lambert MD Work Phone: [facility] [facility] 09-15-2020 09:59-0400 Body height 180.3 cm Bam Lambert MD Work Phone: [facility] [facility] 09-15-2020 09:59-0400 Body mass index (BMI) [Ratio] 41 kg/m2 Bam Lambert MD [facility] 09-15-2020 09:59-0400 Body weight 133.36 kg Bam Lambert MD [facility] 09-15-2020 09:59-0400 Respiratory rate 20 /min Bam Lambert MD Work Phone: [facility] [facility] 09-06-2020 09:24-0400 BMI (Body Mass Index) 41 kg/m2 Bam Lambert [facility] [facility] 09-06-2020 09:24-0400 Body weight 133.36 kg [facility] 09-06-2020 09:24-0400 Height 180.3 cm [facility] 09-06-2020 09:24-0400 Respiratory Rate 16 /min [facility] 08-21-2020 15:21-0400 Body height 180.3 cm Ata Haus DO Work Phone: [facility] 08-21-2020 15:21-0400 Body mass index (BMI) [Ratio] 41.09 kg/m2 Ata Haus DO Work Phone: [facility] 08-21-2020 15:21-0400 Body temperature 98.8 [degF] Ata Haus DO Work Phone: [facility] 08-21-2020 15:21-0400 Body weight 133.63 kg Ata Haus DO Work Phone: [facility] 08-21-2020 15:21-0400 Diastolic blood pressure 72 mm[Hg] Ata Haus DO Work Phone: [facility] 08-21-2020 15:21-0400 Heart rate 66 /min Ata Haus DO Work Phone: [facility] 08-21-2020 15:21-0400 Respiratory rate 18 /min Ata Haus DO Work Phone: [facility] 08-21-2020 15:21-0400 SaO2% (BldA) [Mass fraction] 94 % Ata Haus DO Work Phone: [facility] 08-21-2020 15:21-0400 Systolic blood pressure 140 mm[Hg] Ata Haus DO Work Phone: [facility] 08-12-2019 14:05-0400 BMI (Body Mass Index) 44.35 kg/m2 Ata Haus [facility] 08-12-2019 14:05-0400 Body Temperature 98.01 [degF] Ata Haus [facility] 08-12-2019 14:05-0400 Body weight 144.24 kg [facility] 08-12-2019 14:05-0400 BP Diastolic 80 mm[Hg] [facility] 08-12-2019 14:05-0400 BP Systolic 146 mm[Hg] [facility] 08-12-2019 14:05-0400 Height [facility].3 cm [facility] 08-12-2019 14:05-0400 Pulse (Heart Rate) 119 /min [facility] 08-12-2019 14:05-0400 Pulse Oximetry 93 % [facility] Encounters Encounter Date Encounter Type Care Provider Facility Start: 12-13-2024 End: 12-13-2024 Emergency department patient visit Dr. Ata Hernandez MD Work Phone: -Emergency Department Work Phone: Start: 12-01-2024 End: 12-01-2024 Emergency department patient visit Dr. Ata Hernandez MD Work Phone: -Emergency Department Work Phone: Start: 11-09-2024 End: 11-09-2024 Emergency department patient visit Dr. Ata Hernandez MD Work Phone: -Emergency Department Work Phone: Start: 11-02-2024 End: 11-02-2024 ambulatory [facility] Start: 10-22-2024 End: 10-22-2024 Emergency department patient visit Dr. Koffi Coffman MD -Emergency Department Work Phone: Start: 10-21-2024 ambulatory TOMMY Barry [facility] Start: 10-21-2024 ambulatory TOMMY Barry [facility] Start: 10-14-2024 End: 10-14-2024 Transcribe Orders Tommy Mei MD Work Phone: [facility] Interventional Radiology Comment on above: Retention of urine, unspecified (Primary Dx) Start: 10-12-2024 End: 10-12-2024 Office outpatient visit 25 minutes Tommy Mei MD Work Phone: [facility] Urology Comment on above: Urinary retention (P rimary Dx); Ureter, stricture; Recurrent UTI; Hydronephrosis, unspecified hydronephrosis type; Personal history of malignant neoplasm of prostate Start: 10-12-2024 ambulatory [facility] Start: 10-07-2024 ambulatory [facility] Start: 10-07-2024 End: 10-07-2024 Subsequent hospital visit by physician Sharmila Espinoza CNP Work Phone: [facility] Ultrasound Comment on above: Arrived Start: 09-24-2024 End: 09-24-[address] Yaya Foster MD -Laboratory Specimen Work Phone: Start: 09-24-2024 End: 09-24-2024 ambulatory Ata Haus Facility:[facility] Start: 09-09-2024 End: 09-09-2024 Office outpatient new 45 minutes Sharmila Espinoza CNP Work Phone: [facility] Urology Comment on above: Urinary retention (P rimary Dx); Ureter, stricture; Hydronephrosis, unspecified hydronephrosis type; Recurrent UTI; Personal history of malignant neoplasm of prostate Start: 09-09-2024 ambulatory ATA P HAUS [facility] Start: 08-16-2024 End: 08-17-2024 Emergency department patient visit Dr. Jyoti Hernandez DO Work Phone: -Emergency Department Work Phone: Start: 08-13-2024 End: 08-14-2024 Emergency department patient visit Dr. Jyoti Hernandez DO Work Phone: -Emergency Department Work Phone: Start: 07-27-2024 End: 07-27-2024 Office outpatient visit 25 minutes Ata P Haus DO Work Phone: [facility] [place] Comment on above: Acquired hypothyroid ism (Primary Dx); Mixed hyperlipidemia; Chronic kidney disease (CKD), stage V; Elevated parathyroid hormone; Renal stones Start: 07-27-2024 ambulatory ATA P HAUS [facility] Start: 07-16-2024 Non-patient / Non-visit Dr. Jimbo Allen [facility] Work Phone: Start: 07-15-2024 Non-patient / Non-visit Dr. Jimbo Allen [facility] Work Phone: Start: 07-14-2024 Non-patient / Non-visit Dr. Elana Degroot DO [facility] Work Phone: Start: 07-14-[address] [facility] Start: 07-14-2024 End: 07-16-2024 Evaluation and management of inpatient Dr. Davey Allen -[facility] Unit Work Phone: Start: 07-01-2024 Non-patient / Non-visit Dr. Elana Degroot DO [facility] Work Phone: Start: 06-30-2024 Non-patient / Non-visit Dr. Elana Degroot [facility] Work Phone: Start: 06-29-2024 Non-patient / Non-visit Dr. Elana Degroot [facility] Work Phone: Start: 06-28-2024 ambulatory Jarondas [facility] Facil ity:[facility] Start: 06-28-2024 End: 07-01-2024 Evaluation and management of inpatient Dr. Elana Degroot DO -Medical Surgical 3 Work Phone: Start: 06-06-2024 Non-patient / Non-visit Dr. Catarino WEEKS -[facility] Work Phone: Start: 06-05-2024 ambulatory Elana Degroot Facility:[facility] Start: 06-05-2024 End: 06-06-2024 Evaluation and management of inpatient Dr. Calvin Yoo MD -Medical Surgical 3 Work Phone: Start: 06-05-2024 Non-patient / Non-visit Dr. Catarino WEEKS [facility] Work Phone: Start: 06-04-2024 Non-patient / Non-visit Dr. Catarino WEEKS [facility] Work Phone: Start: 06-03-2024 Non-patient / Non-visit Dr. Elana Degroot DO -[facility] Work Phone: Start: 06-03-2024 ambulatory Elana Degroot Facility:[facility] Start: 05-11-2024 End: 05-12-2024 Emergency department patient visit ATA HERNANDEZ [facility] Comment on above: Jamison catheter probl em, initial encounter ([facility]) (Primary Dx); Urinary tract infection with hematuria, site unspecified; Hydroureteronephrosis; Left ureteral stone Start: 04-27-2024 End: 04-27-2024 Office outpatient visit 15 minutes Ata Hernandez DO Work Phone: [facility] [place] Comment on above: Chronic kidney disea se (CKD), stage V (Primary Dx); Arthralgia of left hip; Acquired hypothyroidism; TSH (thyroid-stimulating hormone deficiency); Acute renal failure with other specified pathological lesion in kidney; Anemia in end-stage renal disease; Abnormal finding of blood chemistry, unspecified Start: 04-27-[address] [facility] Start: 04-06-2024 End: 04-06-2024 ambulatory YAYA FOSTER MD Facility:A Start: 04-06-2024 End: 04-06-2024 Patient encounter procedure YAYA FOSTER MD [facility] Start: 04-01-2024 End: 04-01-2024 Office outpatient visit 25 minutes Judy Ley MD Work Phone: [facility] Comment on above: History of left hip hemiarthroplasty Start: 04-01-2024 End: 04-01-2024 Subsequent hospital visit by physician Antonieta Iyohjc887 X-Ray [facility] Comment on above: History of left hip hemiarthroplasty Start: 04-01-2024 End: 04-01-2024 ambulatory [facility] Ambulatory Start: 04-01-2024 End: 04-01-2024 Subsequent hospital visit by physician [facility] EXTERNAL FILM VIRTUAL Comment on above: Arrived Start: 04-01-2024 End: 04-01-2024 ambulatory [facility] Start: 03-23-2024 End: 03-23-2024 Office outpatient visit 25 minutes Ata Hernandez DO Work Phone: [facility] [place] Comment on above: Needs flu shot (Prim rebeca Dx); Benign essential hypertension; Anemia in end-stage renal disease; Left hip impingement syndrome; Localized osteoporosis without current pathological fracture Start: 03-23-2024 ambulatory SELF SELF Jhonny Delarosa on [facility] Start: 03-05-2024 End: 03-11-2024 Evaluation and management of inpatient Emily Bustillos MD Work Phone: [facility] 3 Comment on above: Pyelonephritis (Prim rebeca Dx); Infection due to extended-spectrum ecio-mniorzqwm-ldlnnzfxg Escherichia coli; Calculus of ureter; Urinary retention; CHLOÉ (obstructive sleep apnea); Secondary hyperparathyroidism of renal origin (Multi); Dependence on renal dialysis ([facility]); ESRD (end stage renal disease) (Multi); Urinary tract infection with hematuria, site unspecified; Postprocedural membranous urethral stricture; Obesity, morbid, BMI 40.0-49.9 (Multi); Renal stones; Metabolic syndrome; Hyperlipidemia, unspecified hyperlipidemia type; Pain, unspecified Start: 03-05-2024 Evaluation and manag ement of inpatient EMILY BUSTILLOS [facility] Start: 03-04-2024 End: 03-05-2024 Emergency department patient visit CALVIN DUGAN [facility] Start: 02-09-2024 End: 02-10-2024 Emergency department patient visit ATA HERNANDEZ [facility] Work Phone: Comment on above: Epigastric abdominal pain (Primary Dx) Start: 02-03-2024 End: 02-03-2024 Orders Only Whitney Bledsoe RN [facility] Interventional Radiology Comment on above: Hydronephrosis (Prim rebeca Dx); Chronic kidney disease, unspecified Start: 01-21-2024 End: 01-21-2024 Office outpatient new 45 minutes John Bha MD Work Phone: [facility] Interventional Radiology Comment on above: Hydronephrosis Start: 01-21-2024 End: 01-25-2024 ambulatory [facility] Start: 12-19-2023 End: 12-19-2023 Transcribe Orders John Bah MD Work Phone: [facility] Interventional Radiology Comment on above: Hydronephrosis (Prim rebeca Dx) Start: 12-15-2023 End: 12-15-2023 Office outpatient visit 25 minutes John Bah MD Work Phone: [facility] Comment on above: History of prostate cancer; ESRD (end stage renal disease) (Multi); Renal stones; Other hydronephrosis Start: 12-15-2023 End: 12-15-2023 ambulatory [facility] Ambulatory Start: 12-10-2023 End: 12-10-2023 Postop follow up visit related to original px Griselda Wilkes Rasheed LOUIE Work Phone: [facility] Comment on above: AVF (arteriovenous f istula) (HCC) (Primary Dx); ESRD (end stage renal disease) on dialysis (HCC); Hypertension, unspecified type Start: 12-10-2023 End: 12-10-2023 ambulatory [facility] Ambulatory Start: 12-05-2023 End: 12-05-2023 Subsequent hospital visit by physician Rad External Film EF RAD EXTERNAL FILM VIRTUAL Comment on above: Arrived Start: 11-26-2023 End: 11-26-2023 Postop follow up visit related to original px Cali Jacob MD Work Phone: [facility] Comment on above: AVF (arteriovenous f istula) (HCC) (Primary Dx) Start: 11-26-2023 End: 11-30-2023 ambulatory [facility] Ambulatory Start: 11-20-2023 End: 11-20-2023 ambulatory NICOLE SALCEDO [facility] Ambulatory Start: 11-19-2023 End: 11-19-2023 Subsequent hospital visit by physician [facility] Comment on above: ESRD (end stage ranjana l disease) (Multi) Start: 11-12-2023 End: 11-12-2023 Office outpatient visit 25 minutes John Bah MD Work Phone: [facility] Comment on above: History of prostate cancer; Renal stones; Postprocedural membranous urethral stricture; Other hydronephrosis Start: 11-12-2023 End: 11-12-2023 ambulatory JOHN Stout BAH [facility] Ambulatory Start: 10-29-2023 Orders Only Roseanne proctor RN [facility] Comment on above: ESRD (end stage ranjana l disease) on dialysis (HCC) (Primary Dx) Start: 10-20-2023 End: 10-20-2023 Office outpatient visit 25 minutes Cali Jacob MD Work Phone: [facility] Comment on above: ESRD (end stage ranjana l disease) on dialysis (HCC) (Primary Dx); AVF (arteriovenous fistula) ([facility]); Hypertension, unspecified type; CHLOÉ (obstructive sleep apnea) Start: 10-20-2023 End: 10-20-2023 ambulatory CALI JACOB [facility] Ambul[facility] ry Start: 09-19-2023 End: 09-19-2023 Subsequent hospital visit by physician [facility] Comment on above: End stage renal dise ase (Multi); Other hydronephrosis Start: 09-15-2023 End: 09-15-2023 Office outpatient visit 25 minutes Cali Jacob MD Work Phone: [facility] Comment on above: ESRD (end stage ranjana l disease) on dialysis (HCC) (Primary Dx) Start: 09-15-2023 End: 09-15-2023 ambulatory HERNESTO LOGAN [facility] Ambulatory Start: 09-10-2023 End: 09-10-2023 Office outpatient visit 25 minutes John Bah MD Work Phone: [facility] Comment on above: History of prostate cancer; Renal stones; Postprocedural membranous urethral stricture; Urinary tract infection with hematuria, site unspecified; ESRD (end stage renal disease) ([facility]); Other hydronephrosis Start: 09-10-2023 End: 09-10-2023 ambulatory [facility] Ambulatory Start: 08-26-2023 End: 08-26-2023 Subsequent hospital visit by physician Rad External Film EF RAD EXTERNAL FILM VIRTUAL Comment on above: Arrived Start: 08-22-2023 End: 08-22-2023 Office outpatient visit 25 minutes Judy Ley MD Work Phone: [facility] Comment on above: Closed fracture of l eft hip, initial encounter ([facility]) (Primary Dx) Start: 08-22-2023 End: 08-22-2023 ambulatory [facility] Ambulatory Start: 08-13-2023 End: 08-13-2023 Office outpatient visit 25 minutes Cali Jacob MD Work Phone: [facility] Comment on above: Wound infection afte r surgery (Primary Dx); ESRD (end stage renal disease) on dialysis ([facility]); Class 1 obesity with serious comorbidity and body mass index (BMI) of 30.0 to 30.9 in adult, unspecified obesity type Start: 08-13-2023 End: 08-13-2023 ambulatory HERNESTOMelinda GRACE [facility] Ambulatory Start: 07-25-2023 End: 07-25-2023 Office outpatient visit 25 minutes Judy Ley MD Work Phone: [facility] Comment on above: Encounter for postop erative care; History of left hip hemiarthroplasty Start: 07-25-2023 End: 07-25-2023 ambulatory [facility] Ambulatory Start: 07-25-2023 End: 07-25-2023 Subsequent hospital visit by physician Rad External Film EF RAD EXTERNAL FILM VIRTUAL Comment on above: History of left hip hemiarthroplasty Start: 07-15-2023 Orders Only Naun Hanks [facility] Phys[facility] Comment on above: Chest pain due to co ronary artery disease ([facility]) (Primary Dx) Start: 07-10-2023 Documentation procedure Patricia Carrillo RN [facility] Start: 07-10-2023 End: 07-10-2023 Office outpatient new 45 minutes Katrina Gardner CLINICAL TRIAL HEAD Work Phone: [facility] Comment on above: Chest pain, unspecif ied type (Primary Dx); Preop examination; Atypical chest pain Start: 07-10-2023 End: 07-10-2023 Preprocedural examination done Katrina Gardner CLINICAL TRIAL HEAD Work Phone: [facility] Start: 07-10-2023 End: 07-10-2023 ambulatory ATA CANELO [facility] Ambul[facility] Start: 07-10-2023 End: 07-10-2023 Encounter for other preprocedural examination ATAJAMES LEMOS [facility] Ambulatory Start: 07-07-2023 Encounter for other preprocedural examination GENET STEIN [facility] Ambulatory Start: 07-07-2023 Preprocedural examin ation done Genet Stein MD Work Phone: [facility] Work Phone: Start: 06-27-2023 End: 06-27-2023 Postop follow up visit related to original px Judy Ley MD Work Phone: [facility] Comment on above: Closed fracture of l eft hip, initial encounter (CMS/HCC) Start: 06-27-2023 End: 06-27-2023 ambulatory JUDY LEY [facility] Ambulatory Start: 06-24-2023 End: 06-24-2023 Subsequent hospital visit by physician John Bah MD Work Phone: [facility] [place] Comment on above: Other hydronephrosis (Primary Dx); Urinary retention Start: 06-23-[address] [facility] Cali Jacob MD Work Phone: [facility] Comment on above: ESRD (end stage ranjana l disease) (HCC) (Primary Dx); Essential hypertension, benign Start: 06-23-2023 End: 06-23-2023 Office outpatient new 30 minutes Nan De León CNP Work Phone: [facility] Comment on above: Obesity (BMI 30-39.9 ) (Primary Dx); ESRD (end stage renal disease) ([facility]); Pressure injury of contiguous region involving back and buttock, stage 2, unspecified laterality ([facility]); Urinary tract infection associated with indwelling urethral catheter, initial encounter ([facility]) Start: 06-23-2023 End: 06-23-2023 ambulatory NAN DE LEÓN [facility] Ambul[facility] Start: 06-23-2023 End: 06-23-2023 Subsequent hospital visit by physician Rad External Film EF RAD EXTERNAL FILM VIRTUAL Comment on above: History of left hip hemiarthroplasty Start: 06-12-2023 End: 06-12-2023 Emergency department patient visit Gil Botello MD Work Phone: [facility] Comment on above: Urinary tract infect ion without hematuria, site unspecified (Primary Dx) Start: 06-03-2023 End: 06-03-2023 Subsequent hospital visit by physician Antonieta Garciav1 [facility] Comment on above: Arrived Start: 06-03-2023 End: 06-03-2023 ambulatory JOHN POWELL [facility] Start: 05-30-2023 End: 05-31-2023 Emergency department patient visit John Powell MD Work Phone: [facility] Emergency Medicine Comment on above: Chronic anemia (Prim rebeca Dx); Orthostatic hypotension; UTI (urinary tract infection), bacterial; Renal insufficiency Start: 05-23-2023 End: 05-23-2023 Transcribe Orders Nan De León CNP Work Phone: [facility] Comment on above: ESRD (end stage ranjana l disease) ([facility]) (Primary Dx) Start: 05-23-2023 End: 05-23-2023 Postop follow up visit related to original px Judy Ley MD Work Phone: [facility] Comment on above: Closed fracture of l eft hip, initial encounter ([facility]); Left hip pain; History of left hip hemiarthroplasty Start: 05-23-2023 End: 05-23-2023 Subsequent hospital visit by physician Rad External Film EF RAD EXTERNAL FILM VIRTUAL Comment on above: History of left hip hemiarthroplasty Start: 05-05-2023 End: 05-05-2023 Subsequent hospital visit by physician Joaquin Tillman DO Work Phone: [facility] Comment on above: Canceled (Cancel Gary son Not Listed - Please provide detailed information) Start: 04-22-2023 End: 04-22-2023 Postop follow up visit related to original px Judy Ley MD Work Phone: [facility] Comment on above: History of left hip hemiarthroplasty (Primary Dx); Left hip pain Start: 04-22-2023 End: 04-22-2023 ambulatory JUDY Joel Joel [facility] Ambulatory Start: 04-16-2023 End: 04-16-2023 ambulatory [facility] Ambulatory Start: 04-10-2023 End: 04-10-2023 Subsequent hospital visit by physician Tiana De León DO Work Phone: [facility] Comment on above: ESRD (end stage ranjana l disease) (CMS/[facility]) Start: 03-31-2023 End: 04-07-2023 Evaluation and management of inpatient Harjeet Melinda Mercedes DO Work Phone: [facility] 3 Comment on above: Closed fracture of l eft hip, initial encounter ([facility]) (Primary Dx); Pneumonia due to infectious organism, unspecified laterality, unspecified part of lung; Acute kidney injury superimposed on chronic kidney disease (CMS/[facility]); Obesity, morbid, BMI 40.0-49.9 (CMS/[facility]); Stage 5 chronic kidney disease not on chronic dialysis (CMS/[facility]); Hip fracture due to osteoporosis, initial encounter ([facility]); Acute gout involving toe of right foot, unspecified cause; Metabolic syndrome Start: 03-26-2023 End: 03-26-2023 Office outpatient new 30 minutes Joaquin Tillman DO Work Phone: [facility] Comment on above: Iron deficiency anem ia, unspecified iron deficiency anemia type (Primary Dx); Iron deficiency anemia secondary to blood loss (chronic) Start: 03-05-2023 End: 03-05-2023 Office outpatient visit 15 minutes Tiana De León DO Work Phone: [facility] Office [facility] Comment on above: Stage 5 chronic kidn ey disease not on chronic dialysis (CMS/HCC) (Primary Dx); Benign essential hypertension; Hyperlipidemia, unspecified hyperlipidemia type; Other hydronephrosis; Anemia in stage 4 chronic kidney disease (CMS/HCC) Start: 03-02-2023 Chart Update Ata P Haus Work Phone: [facility] Work Phone: Start: 02-11-2023 End: 02-11-2023 Subsequent hospital visit by physician John Bah MD Work Phone: [facility] Comment on above: Unspecified hydronep hrosis Start: 02-04-2023 Office outpatient vi sit 25 minutes Ata P Haus Work Phone: [facility] DO Work Phone: Start: 01-29-2023 Office outpatient vi sit 25 minutes Ata P Haus Work Phone: OF-Qlghutq-Cdihhom Work Phone: Start: 01-27-2023 End: 01-27-2023 Office outpatient visit 25 minutes Ata P Haus DO Work Phone: [facility] [place] Comment on above: Hydronephrosis with renal and ureteral calculus obstruction (Primary Dx); Iron deficiency anemia, unspecified iron deficiency anemia type Start: 01-20-2023 AUDIT Ata P Haus Work Phone: [facility] DO Work Phone: Start: 01-10-2023 End: 01-11-2023 Evaluation and management of inpatient Dr. Barron Puckett Facility:[id number] Start: 01-08-2023 End: 01-11-2023 Evaluation and management of inpatient Barron Puckett [facility] [address] [facility] [id number] Start: 12-31-[address] Ata Beltre lity:[id number] Start: 12-26-2022 End: 12-26-2022 Office outpatient visit 25 minutes Ata Hernandez DO Work Phone: [facility] [place] Comment on above: Physical decondition ing (Primary Dx); Hydronephrosis with urinary obstruction due to ureteral calculus; Anemia in stage 4 chronic kidney disease; Prostate cancer; Acquired hypothyroidism; Acute renal failure with acute cortical necrosis Start: 12-23-[address] Ata Hernandez Facdanis lity:[id number] Start: 12-09-2022 Office outpatient vi sit 25 minutes Atajames Eliseus Work Phone: RH-Jclxlsa-[facility] 232 DO Work Phone: Start: 12-04-2022 Chart Update Atajames Hernandez Work Phone: UP-Jywkfsn-Rmapvyv Work Phone: Start: 11-20-2022 End: 11-29-2022 Evaluation and management of inpatient Dr. Giovanni Pardo Facility:[id number] Start: 11-20-2022 End: 11-29-2022 Evaluation and management of inpatient Giovanni Pardo [facility] [address] [facility] [id number] Start: 06-22-2021 End: 06-22-2021 Clinical Support Encounter Atajames Hernandez DO Work Phone: [facility] Comment on above: CHLOÉ (obstructive sle ep apnea) (Primary Dx) Start: 05-02-2021 End: 05-02-2021 Office outpatient visit 15 minutes Gifty Landrum CNP Work Phone: [facility] Urology Comment on above: Balanitis (Primary D x); Urinary tract infection without hematuria, site unspecified; Urinary urgency; Urinary frequency; Continuous leakage Start: 05-02-2021 End: 05-02-2021 Office outpatient visit 40 minutes Natalia Porras MD Work Phone: [facility] Infectious Disease Comment on above: Candiduria (Primary Dx); Other urinary incontinence; Incontinence associated dermatitis Start: 12-27-2020 End: 12-27-2020 Office outpatient visit 15 minutes Chirag Hoang MD Work Phone: [facility] Disease Comment on above: Nonspecific findings on examination of urine (Primary Dx) Start: 12-20-2020 End: 12-20-2020 Office outpatient new 45 minutes Chirag Hoang MD Work Phone: [facility] Disease Comment on above: Acute cystitis with hematuria (Primary Dx) Start: 12-12-2020 End: 12-12-2020 Office outpatient visit 15 minutes Gifty Landrum CNP Work Phone: [facility] Comment on above: Bladder mass (Primar y Dx); Benign non-nodular prostatic hyperplasia with lower urinary tract symptoms; Urinary frequency; Nocturia; Stricture of male urethra, unspecified stricture type Start: 11-23-2020 End: 11-23-2020 Patient encounter procedure Bam Lambert MD Work Phone: [facility] Comment on above: Malignant neoplasm o f urinary bladder, unspecified site (Primary Dx) Start: 11-01-2020 End: 11-01-2020 Office outpatient visit 25 minutes Bam Lambert MD Work Phone: [facility] Comment on above: Benign non-nodular p rostatic hyperplasia with lower urinary tract symptoms (Primary Dx); Bladder mass; Urinary frequency; Nocturia; Personal history of malignant neoplasm of prostate Start: 10-19-2020 End: 10-19-2020 Clinical Support Encounter Bam Lambert MD Work Phone: [facility] Comment on above: Benign non-nodular p rostatic hyperplasia with lower urinary tract symptoms (Primary Dx) Start: 10-17-2020 End: 10-17-2020 Subsequent hospital visit by physician Bam Lambert MD Work Phone: [facility] Comment on above: Ureteral stricture Start: 10-12-2020 End: 10-12-2020 Office outpatient visit 25 minutes Bam Lambert MD Work Phone: [facility] Comment on above: Urinary frequency (P rimary Dx); Bladder mass; Stricture of male urethra, unspecified stricture type; Urinary tract infection without hematuria, site unspecified Start: 10-09-2020 End: 10-09-2020 Subsequent hospital visit by physician Sharmila Espinoza CNP Work Phone: [facility] Ultrasound Comment on above: Arrived Start: 09-28-2020 End: 09-28-2020 Subsequent hospital visit by physician Bam Lambert MD Work Phone: [facility] Periop Comment on above: Urethral stricture Start: 09-15-2020 End: 09-15-2020 Office outpatient visit 25 minutes Bam Lambert MD Work Phone: [facility] Comment on above: Urinary tract infect ion without hematuria, site unspecified (Primary Dx); Stricture of male urethra, unspecified stricture type Start: 09-12-2020 End: 09-12-2020 Subsequent hospital visit by physician Bam Lambert Work Phone: [facility] CT Scan Comment on above: Arrived Start: 09-06-2020 End: 09-06-2020 Office outpatient new 45 minutes Bam Lambert Work Phone: [facility] Comment on above: Bladder mass (Primar y Dx); Urinary frequency; Nocturia; Personal history of malignant neoplasm of prostate; Urinary tract infection without hematuria, site unspecified Start: 09-01-2020 End: 09-01-2020 Subsequent hospital visit by physician Ata Hernandez Work Phone: [facility] Ultrasound Comment on above: Arrived Start: 08-21-2020 End: 08-21-2020 Office outpatient visit 25 minutes Atajames Hernandez DO Work Phone: [facility] Comment on above: Acute urinary tract infection (Primary Dx); Decreased exercise tolerance; Primary osteoarthritis of both knees; History of gout; Chronic fatigue; Screening PSA (prostate specific antigen); Shortness of breath on exertion; Abnormal finding of blood chemistry, unspecified Start: 08-12-2019 End: 08-12-2019 Office outpatient visit 15 minutes Ata Hernandez Work Phone: [facility] Comment on above: Urinary tract infect ion with hematuria, site unspecified (Primary Dx); Chronic pain of left knee; Chronic fatigue; Mild episode of recurrent major depressive disorder; 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, unspecified laterality Start: 03-18-2019 End: 03-18-2019 Clinical Support Encounter Ata Hernandez Work Phone: [facility] Comment on above: Influenza vaccine ad ministered (Primary Dx) Start: 04-29-2018 Patient encounter procedure John Stout Ozzie hahnk [facility] Start: 04-29-2018 End: 04-30-2018 Patient encounter procedure John Stout Bah Facility:[facility] Start: 04-28-2018 End: 04-29-2018 Emergency department patient visit Ata Hernandez Facility:[facility] Start: 03-09-2018 End: 03-10-2018 Patient encounter procedure John Stout Bah Facility:[facility] Start: 03-04-2018 End: 03-05-2018 Patient encounter procedure John Stout Bah Facility:[facility] Start: 02-23-2018 End: 02-24-2018 Patient encounter procedure John Stotu Bah Facility:[facility] Start: 01-26-2018 End: 01-27-2018 Patient encounter procedure John Stout Bah Facility:[facility] Start: 01-23-2018 End: 01-24-2018 Patient encounter procedure John Stout Bah Facility:[facility] Start: 01-01-2018 End: 2018 Patient encounter procedure Genet Pichardo Facility:[facility] Start: 05-30-2017 End: 05-30-2017 Emergency department patient visit Ata Hernandez Facility:[facility] Procedures Date Procedure Procedure Detail Performing Clinician Start: 12-01-[address] Ata Hernandez MD Work Phone: Start: 12-01-2024 Urnls dip stick/tabl et reagent auto microscopy Dr. Ata Hernandez MD Work Phone: Start: 12-01-2024 CT of abdomen and pe lvis without contrast Dr. Ata Hernandez MD Work Phone: Start: 12-01-[address] Ata Hernandez MD Work Phone: Start: 11-09-2024 Urnls dip stick/tabl et reagent auto microscopy Dr. Ata Hernandez MD Work Phone: Start: 11-09-[address] Ata Hernandez MD Work Phone: Start: 10-22-2024 CT of abdomen and pe lvis without contrast Dr. Ata Hernandez MD Work Phone: Start: 10-22-[address] Ata Hernandez MD Work Phone: Start: 10-22-2024 Urnls dip stick/tabl et reagent auto microscopy Dr. Ata Hernandez MD Work Phone: Start: 10-22-[address] Ata Hernandez MD Work Phone: Start: 08-16-2024 Urnls dip stick/tabl et reagent auto microscopy Dr. Ata Hernandez MD Work Phone: Start: 08-16-[address] Ata Hernandez MD Work Phone: Start: 08-13-[address] Ata Hernandez MD Work Phone: Start: 08-13-2024 Urnls dip stick/tabl et reagent auto microscopy Dr. Ata Hernandez MD Work Phone: Start: 08-13-[address] Asia Hernandez DO Work Phone: Start: 07-15-2024 Assay of phosphorus inorganic Dr. Ata Hernandez MD Work Phone: Start: 07-15-[address] Ata Hernandez MD Work Phone: Start: 07-15-2024 Measurement of renal function Dr. Ata Hernandez MD Work Phone: Comment on above: GFR Calc Start: 07-14-2024 Gram stain microscopy Melinda Hernandez DO Work Phone: Start: 07-14-2024 Respiratory microbia l culture Dr. Jyoti Hernandez DO Work Phone: Start: 07-14-2024 SARS-CoV-2, Influenz a & RSV (PCR) Dr. Jyoti Hernandez DO Work Phone: Start: 07-14-2024 Plain chest X-ray Dr. Twyla Hernandez DO Work Phone: Start: 06-29-2024 CT of abdomen and pe lvis with oral contrast Dr. Jyoti Hernandez DO Work Phone: Start: 06-28-2024 Clostridium difficil e detection Dr. Joyti Hernandez DO Work Phone: Start: 06-28-[address] Jyoti Hernandez DO Work Phone: Start: 06-28-[address] Asia Hernandez DO Work Phone: Start: 06-03-2024 CT of chest without contrast Dr. Jyoti Hernandez DO Work Phone: Start: 06-03-2024 X-ray of chest, PA a nd lateral views Dr. Jyoti Hernandez DO Work Phone: Start: 06-03-2024 Gram stain microscopy Melinda Hernandez DO Work Phone: Start: 06-03-[address]24 [address]piratory microbia l culture Dr. Jyoti Hernandez DO Work Phone: Start: 06-03-2024 SARS-CoV-2, Influenz a & RSV (PCR) Dr. Jyoti Hernandez DO Work Phone: Start: 05-11-2024 EXTRA TUBES Shey White PA-C Work Phone: Start: 05-11-2024 LIGHT BLUE TOP Kayleigh White PA-C Work Phone: Start: 05-11-2024 SST TOP Shey White PA-C Work Phone: Start: 05-11-2024 Assay of lactate Jian White PA-C Work Phone: Start: 05-11-2024 Urinalysis microscop ic panel - Urine Qualitative by Automated Shey White PA-C Work Phone: Start: 05-11-2024 Urnls dip stick/tabl et reagent auto microscopy Shey White PA-C Work Phone: Start: 05-11-2024 Comprehensive metabo lic panel Shey White PA-C Work Phone: Start: 05-11-2024 Ct abdomen & pelvis w/o contrast material Shey White PA-C Work Phone: Start: 04-01-2024 US Abdomen Judy arellano MD Work Phone: Start: 03-11-2024 EXTRA TUBES Daily millano DO Work Phone: Start: 03-11-2024 GREEN TOP Daily Bland cedo DO Work Phone: Start: 03-11-2024 Blood count complete automated Daily Orellanao DO Work Phone: Start: 03-10-2024 Renal function panel Da theresevioleta Orellanao DO Work Phone: Start: 03-09-2024 Hemodialysis Daily Bland cedo DO Work Phone: Start: 03-09-2024 PULSE OXIMETRY, CONTINUOUS Calvin Banda DO Work Phone: Start: 03-09-2024 XR tomography Unspec ified body region John Bah MD Work Phone: Start: 03-09-2024 End: 03-09-2024 Cysto w/insert ureteral stent John Bah MD Work Phone: Start: 03-09-2024 End: 03-09-2024 Cysto w/urtroscopy&/pyeloscopy dx John Bah MD Work Phone: Start: 03-09-2024 End: 03-09-2024 X-ray urinary tract exam with contrast material John Bah MD Work Phone: Start: 03-09-2024 Renal function panel Da therese Coates DO Work Phone: Start: 03-08-2024 Iaad ia hepatitis b surface antigen Tiana De León DO Work Phone: Start: 03-08-2024 Hemodialysis Tiana Koch lisa DO Work Phone: Start: 03-08-2024 Hepatitis b surf ant ibody hbsab Tiana De León DO Work Phone: Start: 03-08-2024 Renal function panel Da therese Coates DO Work Phone: Start: 03-07-2024 Renal function panel Da therese Coates DO Work Phone: Start: 03-06-2024 Renal function panel Da therese Coates DO Work Phone: Start: 03-05-2024 End: 03-05-2024 Culture bacterial quanttative colony count urine Daily Orellanao DO Work Phone: Start: 03-05-2024 EXTRA URINE KHAN TUBE D karan Coates DO Work Phone: Start: 03-05-2024 Urinalysis complete W Reflex Culture panel - Urine Daily Orellanao DO Work Phone: Start: 03-05-2024 Urinalysis microscop ic panel - Urine Qualitative by Automated Daily Coates DO Work Phone: Start: 03-05-2024 Ct abdomen & pelvis w/o contrast material Daily Orellanao DO Work Phone: Start: 03-05-2024 EXTRA TUBES Emily Bustillos MD Work Phone: Start: 03-05-2024 KHAN TOP Emily Bustillos MD Work Phone: Start: 03-05-2024 LIGHT BLUE TOP Emily Bustillos MD Work Phone: Start: 03-05-2024 SST TOP Emily Bustillos MD Work Phone: Start: 03-05-2024 End: 03-05-2024 Comprehensive metabolic panel Daily Coates DO Work Phone: Start: 03-05-2024 Urinalysis CALVIN Silver Comment on above: Result Comment: URIN ALYSIS Performed By: #### [id number] #### [facility],[address] [place] [address] Start: 02-10-2024 Ct abdomen & pelvis w/o contrast material Gil Botello MD Work Phone: Start: 02-10-2024 Ct thorax w/o contra st material Gil Botello MD Work Phone: Start: 02-09-2024 Comprehensive metabo lic panel Gil Botello MD Work Phone: Start: 02-09-2024 Ecg routine ecg w/le ast 12 lds trcg only w/o i&r Gil Botello MD Work Phone: Start: 12-05-2023 Study Interpretation of outside study Judy Ley MD Work Phone: Start: 08-26-2023 Study Interpretation of outside study Judy Ley MD Work Phone: Start: 08-13-2023 Follow-up visit Follow-up JANET JACOB Start: 07-25-2023 POINT OF CARE ULTRAS OUND NO CHARGE JOHN BAH Start: 07-25-2023 Radex hip unilateral with pelvis 2-3 views Judy Ley MD Work Phone: Start: 06-27-2023 POINT OF CARE ULTRAS OUND NO CHARGE JOHN BAH Start: 06-24-2023 X-ray urinary tract exam with contrast material John Bah MD Work Phone: Start: 06-12-2023 INFLUENZA A AND B PCR R ALLEY LEB Start: 06-12-2023 RSV PCR JUDY LEB Start: 06-12-2023 SARS-COV-2 PCR, SCRE EN ASYMPTOMATIC JUDY LEY Start: 06-12-2023 Basic metabolic 2000 panel - Serum or Plasma JUDY LEY Start: 06-12-2023 CBC W Auto Different ial panel - Blood JUDY SHERRELLB Start: 06-12-2023 Bacteria identified in Urine by Culture JUDY LEY Start: 06-12-2023 MICROSCOPIC ONLY, URINE JUDY LEY Start: 06-12-2023 URINALYSIS WITH REFL EX CULTURE AND MICROSCOPIC JUDY LEY Start: 06-12-2023 EXTRA URINE KHAN TUBE R ALLEY LEB Start: 06-12-2023 Influenza virus A an d B RNA [Identifier] in Unspecified specimen by JACK with probe detection Gil Botello MD Work Phone: Start: 06-12-2023 Respiratory syncytia l virus RNA [Presence] in Respiratory specimen by JACK with probe detection Gil Botello MD Work Phone: Start: 06-12-2023 SARS-CoV-2 (COVID-19 ) RNA [Presence] in Respiratory specimen by JACK with probe detection Gil Botello MD Work Phone: Start: 06-12-2023 Basic metabolic pane l calcium total Gil Botello MD Work Phone: Start: 06-12-2023 Urinalysis microscop ic panel - Urine Qualitative by Automated Gil Botello MD Work Phone: Start: 06-12-2023 Urnls dip stick/tabl et reagent auto microscopy Gil Botello MD Work Phone: Start: 06-03-2023 ECG 12-LEAD JUDY LEY Start: 06-03-2023 Ecg routine ecg w/le ast 12 lds trcg only w/o i&r John Powell MD Work Phone: Start: 05-30-2023 Lactate [Moles/volum e] in Serum or Plasma JUDY LEY Start: 05-30-2023 Assay of lactate John Powell MD Work Phone: Start: 05-30-2023 DISCHARGE PATIENT STEPHEN LEY Start: 05-30-2023 Bacteria identified in Urine by Culture JUDY LEY Start: 05-30-2023 MICROSCOPIC ONLY, URINE JUDY LEY Start: 05-30-2023 URINALYSIS WITH REFL EX CULTURE AND MICROSCOPIC JUDY LEY Start: 05-30-2023 INFLUENZA A AND B PCR R ALLEY AV Start: 05-30-2023 SARS-COV-2 PCR, SYMPTOMATIC JUDY LEY Start: 05-30-2023 EXTRA TUBES JUDY LEY Start: 05-30-2023 EXTRA URINE KHAN TUBE R ALLEY AV Start: 05-30-2023 Bacteria identified in Blood by Culture JUDY LEY Start: 05-30-2023 Basic metabolic 2000 panel - Serum or Plasma JUDY LEY Start: 05-30-2023 Hepatic function 200 0 panel - Serum or Plasma JUDY LEY Start: 05-30-2023 Lipase [Enzymatic activity/volume] in Serum or Plasma JUDY LEY Start: 05-30-2023 Magnesium [Mass/volu me] in Serum or Plasma JUDY LEY Start: 05-30-2023 CBC W Auto Different ial panel - Blood JUYD LEY Start: 05-30-2023 Lactate [Moles/volum e] in Serum or Plasma JUDY LEY Start: 05-30-2023 Natriuretic peptide B [Mass/volume] in Blood JUDY LEY Start: 05-30-2023 TROPONIN I, HIGH SENSITIVITY JUDY LEY Start: 05-30-2023 CT HEAD WO IV CONTRAST JUDY LEY Start: 05-30-2023 XR CHEST 1 VIEW JUDY LEY Start: 05-30-2023 Urinalysis microscop ic panel - Urine Qualitative by Automated John Powell MD Work Phone: Start: 05-30-2023 Urnls dip stick/tabl et reagent auto microscopy John Powell MD Work Phone: Start: 05-30-2023 Influenza virus A an d B RNA [Identifier] in Unspecified specimen by JACK with probe detection John Powell MD Work Phone: Start: 05-30-2023 SARS-CoV-2 (COVID-19 ) RNA [Presence] in Respiratory specimen by JACK with probe detection John Powell MD Work Phone: Start: 05-30-2023 EXTRA TUBES John emmanuel MD Work Phone: Start: 05-30-2023 LIGHT BLUE TOP John recio MD Work Phone: Start: 05-30-2023 End: 05-30-2023 Comprehensive metabolic panel John Powell MD Work Phone: Start: 05-30-2023 Ct head/brain w/o co ntrast material John Powell MD Work Phone: Start: 05-30-2023 Radiologic exam ches t single view John Powell MD Work Phone: Start: 05-23-2023 XR HIP LEFT WITH PEL VIS WHEN PERFORMED 2 OR 3 VIEWS JUDY LEY Start: 05-23-2023 FOLLOW UP IN ORTHOPA EDIC SURGERY JOHN BAH Start: 05-23-2023 POINT OF CARE ULTRAS OUND NO CHARGE JOHN BAH Start: 05-23-2023 Radex hip unilateral with pelvis 2-3 views Judy Ley MD Work Phone: Start: 05-23-2023 Radex hip unilateral with pelvis 2-3 views Judy Ley MD Work Phone: Start: 04-22-2023 POINT OF CARE ULTRAS OUND NO CHARGE JOHN BAH Start: 04-07-2023 Basic metabolic pane l calcium total Giovanni Pardo MD Work Phone: Start: 04-06-2023 RESPIRATORY CARE ELIANA LUATION ONLY Giovanni Pardo MD Work Phone: Start: 04-06-2023 Sars-cov-2 detection by dna/rna Giovanni Pardo MD Work Phone: Start: 04-06-2023 Basic metabolic pane l calcium total Tiana De León DO Work Phone: Start: 04-04-2023 Radiologic exam abdo men 1 view Giovanni Pardo MD Work Phone: Start: 04-04-2023 Sars-cov-2 detection by dna/rna Giovanni Pardo MD Work Phone: Start: 04-04-2023 Basic metabolic pane l calcium total Tiana De León DO Work Phone: Start: 04-04-2023 RESPIRATORY CARE ELIANA LUATION ONLY Giovanni Pardo MD Work Phone: Start: 04-03-2023 Basic metabolic pane l calcium total Giovanni Pardo MD Work Phone: Start: 04-02-2023 Radex hip unilateral with pelvis 1 view Judy Ley MD Work Phone: Start: 04-02-2023 End: 04-02-2023 Hemiarthroplasty hip partial Judy Yang MD Work Phone: Start: 04-02-2023 Renal function panel Aa adrián De León DO Work Phone: Start: 04-01-2023 Basic metabolic pane l calcium total Judy Ley MD Work Phone: Start: 04-01-2023 Us retroperitoneal r eal time w/image complete Lina Aleeimenko [employer] Work Phone: Start: 04-01-2023 Comprehensive metabo lic panel Lina Trokhimenko [employer] Work Phone: Start: 03-31-2023 Iaad ia mult step me thod nos each organism Lina Trokhimenko [employer] Work Phone: Start: 03-31-2023 RESPIRATORY CARE ELIANA LUATION ONLY Ira Walter MD Work Phone: Start: 03-31-2023 Culture bacterial bl ood aerobic w/id isolates Juanito Espinoza PA-C Work Phone: Start: 03-31-2023 End: 03-31-2023 Basic metabolic panel calcium total Juanito Mitchell Alexis JACOME-C Work Phone: Start: 03-31-2023 Blood typing serolog ic rh (d) Juanito Mitchell Alexis PA-C Work Phone: Start: 03-31-2023 Radiologic exam ches t single view Juanito Mitchell Alexis PA-nvite Work Phone: Start: 03-31-2023 Radex hip unilateral with pelvis 2-3 views Juanito Mitchell Alexis PA-C Work Phone: Start: 01-09-2023 Echocardiography Ata P Haus Work Phone: Start: 01-09-2023 Thyrotropin [Units/v olume] in Serum or Plasma Harjeet Long DO Work Phone: Start: 01-08-2023 Follow-up visit Start: 01-08-2023 End: 01-08-2023 EKG impression Michele Clifford Start: 11-20-2022 End: 11-20-2022 EKG impression Davey Carias Start: 12-12-2020 Urnls dip stick/tabl et rgnt auto w/o microscopy Gifty Sis Landrum CNP Work Phone: Start: 11-23-2020 Cysto w/simple remov al stone & stent Bam Lambert MD Work Phone: Start: 11-23-2020 GENERAL PROCEDURE Bam Lambert MD Work Phone: Start: 11-23-2020 Urnls dip stick/tabl et rgnt auto w/o microscopy Bam Lambert MD Work Phone: Start: 11-01-2020 Urnls dip stick/tabl et rgnt auto w/o microscopy Bam Lambert MD Work Phone: Start: 10-17-2020 Cell count misc body fluids w/differential count Bam Lambert MD Work Phone: Start: 10-17-2020 Culture fngi mold/ye ast prsmptv oth xcpt blood Bam Lambert MD Work Phone: Start: 09-28-2020 Culture bacterial quanttative colony count urine Bam Lambert MD Work Phone: Start: 09-15-2020 Urnls dip stick/tabl et rgnt auto w/o microscopy Bam Lambert MD Work Phone: Start: 09-15-2020 CYSTOSCOPY Bam edwards MD Work Phone: Start: 09-15-2020 Cystourethroscopy Bam Lambert MD Work Phone: Start: 09-15-2020 TRANSRECTAL ULTRASOUND Bam Lambert MD Work Phone: Start: 09-15-2020 Us transrectal Bam hannah MD Work Phone: Start: 09-12-2020 CT of abdomen and pelvis Bam Lambert Work Phone: Start: 09-06-2020 Urnls dip stick/tabl et rgnt auto w/o microscopy Bam Lambert Work Phone: Start: 09-01-2020 US scan of abdominal aorta Ata P Haus Work Phone: Start: 09-01-2020 Radionuclide imaging of perfusion of myocardium under stress and reinjection using Thallium 201 Ata P Haus Work Phone: Start: 09-01-2020 Transthoracic echocardiography Ata P Haus Work Phone: Start: 08-21-2020 Comprehensive metabo lic panel Ata P Haus DO Work Phone: Start: 08-21-2020 Lipid panel Ata P Jerad s DO Work Phone: Start: 08-21-2020 Urnls dip stick/tabl et rgnt non-auto w/o micrscp Ata P Haus DO Work Phone: Start: 08-21-2020 Lipid 1996 panel - S negrita or Plasma Ata Haus Start: 08-12-2019 Urnls dip stick/tabl et rgnt non-auto w/o micrscp Ata P Haus Work Phone: Start: 03-18-2019 FLU VACCINE QUADRIVA LENT > = 3 YO PF Ata P Haus Work Phone: AV fistula recircula tion (observable entity) YAYA FOSTER MD Hip replacement planned REBEL FOSTER MD Insertion of uretera l stent with ureterotomy Ata P Haus Work Phone: Total nephrectomy YAYA BROWN MD Plan of Treatment Date Care Activity Detail Author Start: 08-21-2025 Fasting lipid profile LIPID SCREENING [facility] [employer] [facility] Start: 03-31-2025 End: 03-31-2025 Patient encounter procedure 03/31/2025 1:15 PM EDT Office Visit [facility] [address] [place] [id number] Judy Ley MD [address] [place] [address] [facility] Start: 12-13-2024 [facility] Start: 12-01-2024 [facility] Start: 12-01-2024 Bacteria identified in Urine by Culture Urine Culture [facility] Start: 12-01-2024 [facility] Start: 11-09-2024 [facility] Start: 11-09-2024 [facility] Start: 11-09-2024 Bacteria identified in Urine by Culture Urine Culture [facility] Start: 11-02-2024 End: 11-02-2024 Admission to same day surgery center 11/02/2024 1:00 PM EDT - 11/02/2024 2:00 PM EDT Surgery [facility] Interventional Radiology [address] [place] [address] Ata Sullivan MD [address] [place] [address] VR Suprapubic Catheter Placement [facility] Interventional Radiology Comment on above: VR Suprapubic Catheter Placement Start: 11-02-2024 Subsequent hospital visit by physician 11/02/2024 1:00 PM EDT Hospital Encounter [facility] Procedural Care Unit [address] [place] [id number] Ata Sullivan MD [address] [facility] [address] [place] [address] [facility] Procedural Care Unit Start: 10-28-2024 Urine screening for protein eGFR - Kidney Disease [facility] Start: 10-26-2024 End: 10-26-2024 Patient encounter procedure 10/26/2024 2:15 PM EDT Office Visit [facility] [address] [place] [address] Ata Hernandez DO [address] [place] [address] [facility] Start: 10-22-2024 [facility] Start: 10-19-2024 End: 10-19-2024 Patient encounter procedure 10/19/2024 1:00 PM EDT Office Visit [facility] [address] [place] [address] Tommy Mei MD [address] [place] [address] [facility] Start: 10-13-2024 End: 10-12-2025 CT Abdomen and Pelvis WO contrast CT ABDOMEN/PELVIS WITHOUT CONTRAST Imaging Routine Ureter, stricture Hydronephrosis, unspecified hydronephrosis type Expected: 10/13/2024 (Approximate), Expires: 10/12/2025 [facility] Comment on above: Expected: 10/13/2024 (Approximate), Expi res: 10/12/2025 Start: 10-12-2024 End: 10-12-2025 Basic metabolic 2000 panel - Serum or Plasma BASIC METABOLIC PANEL Lab Routine Ureter, stricture Hydronephrosis, unspecified hydronephrosis type Expected: 10/12/2024, Expires: 10/12/2025 [facility] Comment on above: Expected: 10/12/2024, Expires: Start: 09-28-2024 End: 09-28-2024 Patient encounter procedure 09/28/2024 1:30 PM EDT Office Visit [facility] [address] [place] [address] Tommy Mei MD [address] [place] [address] [facility] Start: 09-09-2024 End: 09-09-2025 PSA - DIAGNOSTIC/TUMOR MARKER PSA - DIAGNOSTIC/TUMOR MARKER Lab Routine Personal history of malignant neoplasm of prostate Expected: 09/09/2024, Expires: 09/09/2025 [facility] Comment on above: Expected: 09/09/2024, Expires: Start: 09-09-2024 End: 09-09-2025 US Kidney US RENAL RETROPERITONEAL Imaging Routine Urinary retention Hydronephrosis, unspecified hydronephrosis type Recurrent UTI Expected: 09/09/2024, Expires: 09/09/2025 [facility] Comment on above: Expected: 09/09/2024, Expires: Start: 08-16-2024 [facility] Start: 08-13-2024 [facility] Start: 08-13-2024 [facility] Start: 08-13-2024 Bacteria identified in Urine by Culture Urine Culture [facility] Start: 07-27-2024 End: 07-27-2024 Patient encounter procedure 07/27/2024 1:45 PM EST Office Visit [facility] [address] [place] [address] Ata Hernandez DO [address] [facility] [address] [facility] Start: 07-16-2024 Patient discharge [facility] Start: 07-16-2024 Hemodialysis care [facility] [facility] Start: 07-16-2024 End: 07-16-2024 [facility] Start: 07-15-2024 Referral to service [facility] Start: 07-14-2024 Assessment of risk of venous thromboembolism [facility] Start: 07-14-2024 Catheterization of vein [facility] Start: 07-14-2024 Insertion of catheter into peripheral vein [facility] Start: 07-14-2024 Measuring intake and output [facility] Start: 07-14-2024 Oxygen therapy [facility] Start: 07-14-2024 Patient referral to dietitian [facility] Start: 07-14-2024 Providing care according to standard [facility] Start: 07-14-2024 Provision of activity privileges [facility] Start: 07-14-2024 Referral to marketing development representative [facility] Start: 07-14-2024 Referral to occupational therapist [facility] Start: 07-14-2024 Referral to service [facility] Start: 07-14-2024 Respiratory secretion precautions [facility] Start: 07-14-2024 [facility] Start: 07-14-2024 Following clinical pathway protocol [facility] Start: 07-14-2024 Admission procedure [facility] Start: 07-14-2024 Inhalation therapy procedure [facility] Start: 07-08-2024 End: 07-08-2024 Patient encounter procedure 07/08/2024 10:45 AM EST Office Visit [facility] [address] [facility] [address] [place] [address] John Bah MD [address] [place] [address] [facility] Start: 07-01-2024 [facility] Start: 07-01-2024 Patient discharge [facility] Start: 06-30-2024 End: 06-30-2024 [facility] Start: 06-30-2024 Hemodialysis care [facility] Start: 06-29-2024 [facility] Start: 06-29-2024 Referral to service [facility] Start: 06-29-2024 End: 06-29-2024 [facility] Start: 06-29-2024 Hemodialysis care [facility] Start: 06-28-2024 Following clinical pathway protocol [facility] Start: 06-28-2024 Ambulation without limitation [facility] Start: 06-28-2024 Assessment of risk of venous thromboembolism [facility] Start: 06-28-2024 Incentive spirometry [facility] Start: 06-28-2024 Insertion of catheter into peripheral vein [facility] Start: 06-28-2024 Oxygen therapy [facility] Start: 06-28-2024 Providing care according to standard [facility] Start: 06-28-2024 Referral to marketing development representative [facility] Start: 06-28-2024 Referral to occupational therapist [facility] Start: 06-28-2024 Referral to service [facility] Start: 06-28-2024 [facility] Start: 06-28-2024 Admission procedure [facility] Start: 06-06-2024 Patient discharge [facility] Start: 06-05-2024 Admission procedure [facility] Start: 06-05-2024 Hemodialysis care [facility] Start: 06-05-2024 [facility] Start: 06-05-2024 Respiratory secretion precautions [facility] Start: 06-04-2024 Inhalation therapy procedure [facility] Start: 06-03-2024 Referral to marketing development representative [facility] Start: 06-03-2024 Following clinical pathway protocol [facility] Start: 06-03-2024 Assessment of risk of venous thromboembolism [facility] Start: 06-03-2024 Insertion of catheter into peripheral vein [facility] Start: 06-03-2024 Measuring intake and output [facility] Start: 06-03-2024 Oxygen therapy [facility] Start: 06-03-2024 Physiotherapy of chest [facility] Start: 06-03-2024 Providing care according to standard [facility] Start: 06-03-2024 Provision of activity privileges [facility] Start: 06-03-2024 Referral to occupational therapist [facility] Start: 06-03-2024 Referral to service [facility] Start: 06-03-2024 [facility] Start: 06-03-2024 Admission procedure [facility] Start: 04-27-2024 End: 04-27-2024 Patient encounter procedure 04/27/2024 1:45 PM EST Office Visit [facility] [address] [place] [address] Ata Hernandez DO [address] [place] [address] [facility] Start: 04-22-2024 End: 04-22-2024 Patient encounter procedure 04/22/2024 1:30 PM EST Office Visit [facility] [address] [place] [phone] John Bah MD [address] [place] [address] [facility] Start: 03-30-2024 End: 03-30-2025 XR Hip Views XR hip left with pelvis when performed 2 or 3 views Imaging Routine History of left hip hemiarthroplasty Expected: 03/30/2024, Expires: 03/30/2025 [facility] Service Area Work Phone: Comment on above: Expected: 03/30/2024, Expires: Start: 03-23-2024 End: 03-23-2025 DXA Skeletal system.axial Views for bone density BONE DENSITY AXIAL (HIP, PELVIS, SPINE) Imaging Routine Localized osteoporosis without current pathological fracture Expected: 03/23/2024 (Approximate), Expires: 03/23/2025 [facility] Comment on above: Expected: 03/23/2024 (Approximate), Expi res: 03/23/2025 Start: 02-23-2024 End: 02-23-2024 Patient encounter procedure 02/23/2024 9:15 AM EDT Office Visit [facility] [address] [place] [phone] Nicole Salcedo, HAND BOOTMAKER-CLINICAL TRIAL HEAD [address] [facility], [address] [place] [address] [facility] Start: 02-03-2024 End: 02-02-2025 CBC panel - Blood by Automated count CBC Lab Routine Hydronephrosis Chronic kidney disease, unspecified Expected: 02/03/2024 (Approximate), Expires: 02/02/2025 [facility] Comment on above: Expected: 02/03/2024 (Approximate), Expi res: 02/02/2025 Start: 02-03-2024 End: 02-02-2025 INR in Platelet poor plasma by Coagulation assay PT/INR Lab Routine Hydronephrosis Chronic kidney disease, unspecified Expected: 02/03/2024 (Approximate), Expires: 02/02/2025 [facility] Comment on above: Expected: 02/03/2024 (Approximate), Expi res: 02/02/2025 Start: 02-03-2024 End: 02-02-2025 VR SC Nephoureteral Tube Change VR SC Nephoureteral Tube Change Imaging Routine Hydronephrosis Chronic kidney disease, unspecified Expected: 02/03/2024 (Approximate), Expires: 02/02/2025 [facility] Work Phone: Comment on above: Expected: 02/03/2024 (Approximate), Expi res: 02/02/2025 Start: 02-01-2024 COVID-19 Vaccine ( season) COVID-19 Vaccine ( season) [facility] Start: 02-01-2024 COVID-19 Vaccine ( season) COVID-19 Vaccine ( season) [facility] Start: 02-01-2024 COVID-19 Vaccine ( season) COVID-19 Vaccine ( season) [facility] Start: 02-01-2024 Influenza vaccination [facility] Start: 01-10-2024 Thyroid stimulating hormone measurement TSH Level [facility] Start: 12-15-2023 End: 12-14-2024 Consult to Interventional Radiology Consult to Interventional Radiology Imaging Routine Other hydronephrosis Expected: 12/15/2023, Expires: 12/14/2024 [facility] Service Area Work Phone: Comment on above: Expected: 12/15/2023, Expires: Start: 12-15-2023 End: 12-15-2023 Patient encounter procedure 12/15/2023 10:45 AM EDT Office Visit [facility] [address] [place] [phone] John Bah MD [facility] [place] [address] [facility] Start: 12-10-2023 End: 12-10-2023 Follow-up encounter 12/10/2023 1:00 PM EDT Follow-Up [facility] [address] [place] [address] [place] [address] Griselda Iqbal, CLINICAL TRIAL HEAD [address] [place] [address] [facility] Start: 11-27-2023 End: 11-27-2023 Patient encounter procedure 11/27/2023 10:45 AM EDT Office Visit [facility] [address] [facility] [address] [place] [address] John Bah MD [facility] [place] [address] [facility] Start: 11-26-2023 End: 11-26-2023 Patient encounter procedure 11/26/2023 10:45 AM EDT Office Visit [facility] [address] [facility] [address] [place] [address] John Bah MD [address] [place] [address] [facility] Start: 11-20-2023 End: 11-20-2023 Patient encounter procedure 11/20/2023 2:00 PM EDT Office Visit [facility] [address] [facility] [address] [place] [address] Nicole Salcedo, HAND BOOTMAKER-CLINICAL TRIAL HEAD [address] [facility] [place] [address] [facility] Start: 10-29-2023 End: 10-29-2023 FISTULA ARTERIOVENOUS REVISION FISTULA ARTERIOVENOUS REVISION ESRD (end stage renal disease) on dialysis (HCC) AVF (arteriovenous fistula) ([facility]) 10/29/2023 1:40 PM EDT [facility] Start: 10-29-2023 End: 10-29-2023 Patient encounter procedure 10/29/2023 9:30 AM EDT Office Visit [facility] [address] [facility] [address] [place] [phone] John Bah MD [address] [place] [address] [facility] Start: 10-22-2023 End: 10-22-2023 Admission to establishment 10/22/2023 11:15 AM EDT Clinical Support [facility] Preadmission Testing [address] [place] [phone] Cali Jacob MD [address] [place] [address] Discharge Disposition: Home [facility] Preadmission Testing Start: 10-20-2023 End: 10-20-2023 Follow-up encounter 10/20/2023 8:30 AM EDT Follow-Up [facility] [address] [facility] [place] [phone] Cali Jacob MD [address] [place] [address] [facility] Start: 10-20-2023 End: 10-20-2023 Patient encounter procedure 10/20/2023 7:00 AM EDT Appointment [facility] [address] [facility] [place] [address] Cali Jacob MD [address] [place] [address] [facility] Start: 10-14-2023 End: 11-14-2024 Ultrasound hemodialysis access Ultrasound hemodialysis access Vascular Ultrasound Routine ESRD (end stage renal disease) on dialysis ([facility]) Expected: 10/14/2023, Expires: 11/14/2024 [facility] Work Phone: Comment on above: Expected: 10/14/2023, Expires: Start: 09-19-2023 End: 09-19-2023 Patient encounter procedure 09/19/2023 1:00 PM EDT Appointment [facility] [address] [place] [address] [facility] Start: 09-15-2023 End: 09-15-2023 Patient encounter procedure 09/15/2023 10:30 AM EDT Office Visit [facility] [address] [facility] [place] [address] Cali Jacob MD [address] [place] [address] [facility] Start: 09-10-2023 End: 09-10-2023 Patient encounter procedure 09/10/2023 9:30 AM EDT Office Visit [facility] [address] [phone] John Bah MD [address] [place] [address] [facility] Start: 07-31-2023 End: 07-31-2023 FISTULA ARTERIOVENOUS FISTULA ARTERIOVENOUS ESRD (end stage renal disease) (HCC) 07/31/2023 7:27 AM EST [facility] Start: 07-28-2023 End: 07-28-2023 Patient encounter procedure 07/28/2023 3:00 PM EST Office Visit [facility] [address] [facility] [place] [address] Shawna Guevara CNP [address] [place] [address] [facility] Start: 07-18-2023 End: 07-18-2023 Patient encounter procedure 07/18/2023 1:30 PM EST Appointment [facility] [address] [facility] [place] [address] Genet Stein MD [address] [place] [address] [facility] Start: 07-18-2023 End: 07-18-2023 Patient encounter procedure [facility] Start: 07-17-2023 End: 09-07-2024 Dobutamine stress echocardiogram Dobutamine stress echocardiogram Echocardiography Routine Preop examination Chest pain, unspecified type Atypical chest pain Expected: 07/17/2023 (Approximate), Expires: 09/07/2024 [facility] Work Phone: Comment on above: Expected: 07/17/2023 (Approximate), Expi res: 09/07/2024 Start: 07-10-2023 End: 07-10-2023 Admission to same day surgery center 07/10/2023 10:15 AM EST - 07/10/2023 1:33 PM EST Surgery [facility] Periop [address] [place] [address] Cali Jacob MD [address] [place] [address] RIGHT UPPER EXTREMITY (RADIOCEPHALIC) ARTERIOVENOUS FISTULA CREATION [facility]iop Comment on above: RIGHT UPPER EXTREMITY (RADIOCEPHALIC) AR TERIOVENOUS FISTULA CREATION Start: 07-10-2023 End: 07-10-2023 FISTULA ARTERIOVENOUS FISTULA ARTERIOVENOUS ESRD (end stage renal disease) ([facility]) 07/10/2023 10:15 AM EST [facility] Start: 07-10-2023 Subsequent hospital visit by physician 07/10/2023 10:15 AM EST Hospital Encounter [facility] [address] [place] [address] Cali Jacob MD [address] [place] [address] [facility] Start: 07-04-2023 End: 07-04-2023 Admission to establishment 07/04/2023 2:30 PM EST Clinical Support [facility] Preadmission Testing [address] [place] [address] [facility] Preadmission Testing Start: 07-04-2023 End: 06-23-2024 Basic metabolic 2000 panel - Serum or Plasma Basic metabolic panel Lab Routine ESRD (end stage renal disease) ([facility]) Essential hypertension, benign Expected: 07/04/2023, Expires: 06/23/2024 [facility] Comment on above: Expected: 07/04/2023, Expires: Start: 07-04-2023 End: 06-23-2024 Complete blood count with white cell differential, manual CBC and differential Lab Routine ESRD (end stage renal disease) ([facility]) Essential hypertension, benign Expected: 07/04/2023, Expires: 06/23/2024 [facility] Comment on above: Expected: 07/04/2023, Expires: Start: 07-04-2023 End: 06-23-2024 INR in Platelet poor plasma by Coagulation assay PT/INR Lab Routine ESRD (end stage renal disease) ([facility]) Essential hypertension, benign Expected: 07/04/2023, Expires: 06/23/2024 [facility] Work Phone: Comment on above: Expected: 07/04/2023, Expires: Start: 06-27-2023 End: 06-27-2023 Patient encounter procedure 06/27/2023 9:00 AM EST Office Visit [facility] [address] [place] [phone] Judy Ley MD [address] [place] [address] [facility] Start: 06-26-2023 End: 06-26-2024 XR Hip Views XR hip left with pelvis when performed 2 or 3 views Imaging Routine Closed fracture of left hip, initial encounter ([facility]) Expected: 06/26/2023, Expires: 06/26/2024 [facility] Service Area Work Phone: Comment on above: Expected: 06/26/2023, Expires: Start: 06-24-2023 End: 03-25-2024 Gi imag intraluminal esophagus-ileum w/i&r NJ GI IMAG INTRALUMINAL ESOPHAGUS-ILEUM W/I&R NJ Charge Routine Iron deficiency anemia, unspecified iron deficiency anemia type Iron deficiency anemia secondary to blood loss (chronic) Expected: 06/24/2023, Expires: 03/25/2024 [facility] Comment on above: Expected: 06/24/2023, Expires: Start: 06-24-2023 End: 06-24-2023 Cysto w/insert ureteral stent Cystoscopy with Insertion Stent Ureter Other hydronephrosis Urinary retention 06/24/2023 11:45 AM EST Virtual [facility] Start: 06-24-2023 End: 06-24-2023 Cystostomy cystotomy w/drainage Creation Cystostomy Other hydronephrosis Urinary retention 06/24/2023 11:45 AM EST [facility] Start: 06-24-2023 End: 06-24-2023 Admission to same day surgery center 06/24/2023 9:30 AM EST - 06/24/2023 10:00 AM EST Surgery [facility] [address] [place] [address] John Bah MD [address] [place] [address] Cystoscopy with bilateral RPG bilateral ureteroscopy and bilateral Insertion Stent Ureter [94175 (CPT )] [facility] Comment on above: Cystoscopy with bilateral RPG bilateral ureteroscopy and bilateral Insertion Stent Ureter [96047 (CPT )] Start: 06-24-2023 End: 06-24-2023 Cysto w/insert ureteral stent Cystoscopy with Insertion Stent Ureter Other hydronephrosis Urinary retention 06/24/2023 9:30 AM EST [facility] Start: 06-24-2023 End: 06-24-2023 Cystostomy cystotomy w/drainage Creation Cystostomy Other hydronephrosis Urinary retention 06/24/2023 9:30 AM EST [facility] Start: 06-24-2023 End: 06-24-2023 Admission to same day surgery center 06/24/2023 7:30 AM EST - 06/24/2023 8:00 AM EST Surgery [facility] [place] [address] [place] [address] John Bah MD [address] [place] [address] Cystoscopy with bilateral RPG bilateral ureteroscopy and bilateral Insertion Stent Ureter [[id number] (CPT )] [facility] Comment on above: Cystoscopy with bilateral RPG bilateral ureteroscopy and bilateral Insertion Stent Ureter [[id number] (CPT )] Start: 06-24-2023 End: 06-24-2023 Cysto w/insert ureteral stent Cystoscopy with Insertion Stent Ureter Other hydronephrosis Urinary retention 06/24/2023 7:30 AM EST [facility] Start: 06-24-2023 End: 06-24-2023 Cystostomy cystotomy w/drainage Creation Cystostomy Other hydronephrosis Urinary retention 06/24/2023 7:30 AM EST [facility] Start: 06-24-2023 Subsequent hospital visit by physician [facility] [place] Start: 06-23-2023 Subsequent hospital visit by physician 06/23/2023 Hospital Encounter [facility] [address] [place] [address] History of left hip hemiarthroplasty [facility] Comment on above: History of left hip hemiarthroplasty Start: 06-10-2023 End: 06-10-2023 Patient encounter procedure 06/10/2023 1:00 PM EST Office Visit [facility] Medical Office Building [address] [place] [address] Tiana De León, DO [address] [place] [address] [facility] Medical Office [facility] Start: 05-23-2023 End: 05-23-2023 Professional / ancillary services management 05/23/2023 9:30 AM EST Ancillary Procedure [facility] [address] [place] [phone] Closed fracture of left hip, initial encounter ([facility]) [facility] Comment on above: Closed fracture of left hip, initial enc ounter ([facility]) Start: 04-23-2023 End: 04-23-2023 Patient encounter procedure 04/23/2023 11:30 AM EST Office Visit [facility] Office [facility] [address] [place] [address] Tiana De León, DO [address] [place] [id number] [facility] Office [facility] Start: 04-22-2023 End: 04-22-2023 Patient encounter procedure 04/22/2023 2:00 PM EST Office Visit [facility] [address] [place] [phone] Judy Ley MD [address] [place] [id number] [facility] Start: 04-22-2023 End: 04-22-2024 XR Hip Views XR hip left 2 or 3 views Imaging Routine Left hip pain History of left hip hemiarthroplasty Expected: 04/22/2023, Expires: 04/22/2024 [facility] Service Area Work Phone: Comment on above: Expected: 04/22/2023, Expires: 4 Start: 03-26-2023 End: 03-26-2023 Patient encounter procedure 03/26/2023 3:00 PM EDT Office Visit [facility] [address] [place] [address] Joaquin Tillman Jr., [address] [place] [address] [facility] Start: 03-26-2023 End: 03-26-2024 Colonoscopy flx dx w/collj spec when pfrmd DIAGNOSTIC COLONOSCOPY GI/Bronch Routine Iron deficiency anemia, unspecified iron deficiency anemia type Expected: 03/26/2023, Expires: 03/26/2024 [facility] Comment on above: Expected: 03/26/2023, Expires: Start: 03-26-2023 End: 03-26-2024 DIAGNOSTIC UPPER ENDOSCOPY DIAGNOSTIC UPPER ENDOSCOPY GI/Bronch Routine Iron deficiency anemia, unspecified iron deficiency anemia type Expected: 03/26/2023, Expires: 03/26/2024 [facility] Comment on above: Expected: 03/26/2023, Expires: Start: 03-05-2023 FUV, Provider: Tiana De León, Status: Pen, Time: 2:15 PM FUV, Provider: Tiana De León, Status: Pen, Time: 2:15 PM [facility] Work Phone: Start: 03-05-2023 End: 03-05-2024 CBC panel - Blood by Automated count CBC Lab Routine Stage 5 chronic kidney disease not on chronic dialysis (CMS/HCC) Expected: 03/05/2023 (Approximate), Expires: 03/05/2024 [facility] Service Area Work Phone: Comment on above: Expected: 03/05/2023 (Approximate), Expi res: 03/05/2024 Start: 03-05-2023 End: 03-05-2024 Comprehensive metabolic 2000 panel - Serum or Plasma Comprehensive metabolic panel Lab Routine Stage 5 chronic kidney disease not on chronic dialysis (CMS/HCC) Expected: 03/05/2023 (Approximate), Expires: 03/05/2024 [facility] Work Phone: Comment on above: Expected: 03/05/2023 (Approximate), Expi res: 03/05/2024 Start: 03-05-2023 End: 03-05-2024 Ferritin [Mass/volume] in Serum or Plasma Ferritin Lab Routine Stage 5 chronic kidney disease not on chronic dialysis (CMS/HCC) Expected: 03/05/2023 (Approximate), Expires: 03/05/2024 [facility] Work Phone: Comment on above: Expected: 03/05/2023 (Approximate), Expi res: 03/05/2024 Start: 03-05-2023 End: 03-05-2024 Iron and Iron binding capacity panel - Serum or Plasma Iron and TIBC Lab Routine Stage 5 chronic kidney disease not on chronic dialysis (CMS/HCC) Expected: 03/05/2023 (Approximate), Expires: 03/05/2024 [facility] Work Phone: Comment on above: Expected: 03/05/2023 (Approximate), Expi res: 03/05/2024 Start: 03-03-2023 End: 03-03-2023 Telemedicine consultation with patient 03/03/2023 2:15 PM EDT Telemedicine [facility] [address] [place], [place] [phone] Ata Hernandez, DO [address] [place], [place] [phone] [facility] Start: 02-11-2023 [facility], Provider: John Bah II, Status: Pen, Time: 10:15 AM [facility], Provider: John Bah II, Status: Pen, Time: 10:15 AM [facility] 3 DO Work Phone: Start: 02-04-2023 NPV, Provider: Tiana De León, Status: Pen, Time: 2:15 PM NPV, Provider: Tiana De León, Status: Pen, Time: 2:15 PM [facility] [address] DO Work Phone: Start: 01-31-2023 COVID-19 Vaccine ( season) COVID-19 Vaccine ( season) [facility] Start: 01-31-2023 COVID-19 Vaccine ( season) COVID-19 Vaccine () [facility] Start: 01-31-2023 COVID-19 VACCINE () COVID-19 VACCINE () [facility] [employer] [facility] Start: 01-31-2023 Influenza vaccination [facility] [employer] [facility] Start: 01-29-2023 FUV, Provider: John Bah II, Status: Pen, Time: 2:15 PM FUV, Provider: John Bah II, Status: Yossi, Time: 2:15 PM [facility] [place] 3 DO Work Phone: Start: 01-27-2023 End: 01-27-2023 Patient encounter procedure 01/27/2023 2:30 PM EDT Office Visit [facility] [address] [place] [id number] Ata Hernandez DO [address] [place] [id number] [facility] Start: 01-08-2023 End: 01-09-2024 [facility] Start: 01-03-2023 End: 01-03-2023 Patient encounter procedure 01/03/2023 2:30 PM EDT Lab Encounter [facility] [address] [place] [address] Ata Hernandez DO [address] [place] [id number] [facility] Start: 12-26-2022 End: 12-27-2023 Basic metabolic 2000 panel - Serum or Plasma BASIC METABOLIC PANEL Lab Routine Hydronephrosis with urinary obstruction due to ureteral calculus Expected: 12/26/2022 (Approximate), Expires: 12/27/2023 [facility] Comment on above: Expected: 12/26/2022 (Approximate), Expi res: 12/27/2023 Start: 12-26-2022 End: 12-27-2023 Complete blood count with white cell differential, automated CBC, EDIF, PLATELET Lab Routine Hydronephrosis with urinary obstruction due to ureteral calculus Expected: 12/26/2022 (Approximate), Expires: 12/27/2023 [facility] Comment on above: Expected: 12/26/2022 (Approximate), Expi res: 12/27/2023 Start: 12-26-2022 End: 12-27-2023 Magnesium [Mass/volume] in Serum or Plasma MAGNESIUM Lab Routine Hydronephrosis with urinary obstruction due to ureteral calculus Expected: 12/26/2022 (Approximate), Expires: 12/27/2023 [facility] Comment on above: Expected: 12/26/2022 (Approximate), Expi res: 12/27/2023 Start: 12-26-2022 End: 12-27-2023 PHOSPHATE, INORGANIC PHOSPHATE, INORGANIC Lab Routine Hydronephrosis with urinary obstruction due to ureteral calculus Expected: 12/26/2022 (Approximate), Expires: 12/27/2023 [facility] Comment on above: Expected: 12/26/2022 (Approximate), Expi res: 12/27/2023 Start: 12-26-2022 End: 12-27-2023 PTH INTACT PTH INTACT Lab Routine Hydronephrosis with urinary obstruction due to ureteral calculus Expected: 12/26/2022 (Approximate), Expires: 12/27/2023 [facility] Comment on above: Expected: 12/26/2022 (Approximate), Expi res: 12/27/2023 Start: 12-26-2022 End: 12-27-2023 VITAMIN D, (1,25 DIHYDROXY) VITAMIN D, (1,25 DIHYDROXY) Lab Routine Hydronephrosis with urinary obstruction due to ureteral calculus Expected: 12/26/2022 (Approximate), Expires: 12/27/2023 [facility] Comment on above: Expected: 12/26/2022 (Approximate), Expi res: 12/27/2023 Start: 12-09-2022 NPV, Provider: John Bah II, Status: Pen, Time: 11:00 AM NPV, Provider: John Bah II, Status: Pen, Time: 11:00 AM [id number]-[id number] Work Phone: Start: 12-09-2022 Patient encounter procedure [facility] [place] Start: 11-29-2022 End: 11-30-2023 [facility] Comment on above: When patient has double lumen, flush bot h lumens After each administr ation of a medicationAfter the administration of blood or blood productsWhen converting a continuous infusion to an intermittent device After blood draws May Give 1ml to 5ml to anesthetize insertion site for patient comfort. Start: 11-22-2022 End: 11-23-2023 Lidocaine 2% (UROJET) Topical Gel 5 mL Once ; DOSE = 5 mL Topical Every 4 Hours, PRN for pain with urinary catheterizationApply to Urethra Start: 22-Nov-2022 End: 22-Nov-2023 Ordered: 22-Nov-2022 Tiana De León [facility] Start: 11-20-2022 End: 11-21-2023 Acetaminophen 650 mg Oral Tablet Every 4 Hours PRN ; Tablet (TYLENOL)DOSE = 650 mg Oral Every 4 Hours, PRN Temp Greater Than or Equal to 38.0 C Start: 20-Nov-2022 End: 20-Nov-2023 Ordered: 20-Nov-2022 Emily Dickey [facility] Start: 04-16-2022 Thyroid stimulating hormone measurement [facility] Start: 04-11-2022 COVID-19 Vaccine (4 - Moderna series) COVID-19 Vaccine (4 - Moderna series) [facility] Start: 08-21-2021 Prostate specific antigen measurement PROSTATE CANCER SCREENING DISCUSSION [facility] Start: 08-21-2021 Thyroid stimulating hormone measurement TSH [facility] Start: 08-21-2021 TSH Qn TSH [facility] Start: 06-18-2021 End: 06-18-2021 Patient encounter procedure 06/18/2021 Office Visit Internal Medicine Ata Hernandez, DO [address] [place] [id number] [facility] [place] Start: 06-06-2021 End: 06-06-2021 Patient encounter procedure 06/06/2021 Office Visit Urology Gifty Landrum, CLINICAL TRIAL HEAD [address] [place] [address] [facility] Start: 05-16-2021 End: 05-16-2021 Patient encounter procedure 05/16/2021 Office Visit Infectious Diseases Natalia Porras MD [address] [place] [address] [facility] Start: 05-02-2021 COVID-19 VACCINE (#1) COVID-19 VACCINE (#1) [facility] Start: 03-14-2021 End: 12-12-2021 US scan of abdominal aorta US RENAL RETROPERITONEAL Imaging Routine Stricture of male urethra, unspecified stricture type Expected: 03/14/2021 (Approximate), Expires: 12/12/2021 [facility] Comment on above: Expected: 03/14/2021 (Approximate), Expi res: 12/12/2021 Start: 03-14-2021 End: 03-14-[address] [facility] Start: 01-31-2021 Influenza vaccination [facility] Start: 2021 Respiratory Syncytial Virus Immunization: Risk, 60-74 Risk, or 75+ (1 - 1-dose 75+ series) Respiratory Syncytial Virus Immunization: Risk, 60-74 Risk, or 75+ (1 - 1-dose 75+ series) [facility] Start: 12-27-2020 End: 12-27-2020 Patient encounter procedure 12/27/2020 Office Visit Infectious Diseases Chirag Hoang MD [address] [facility] [place] [address] [phone] [facility] Start: 12-12-2020 End: 12-12-2020 Patient encounter procedure 12/12/2020 Office Visit Urology Gifty Landrum, CLINICAL TRIAL HEAD [address] [place] [address], [place] [address] [phone] [facility] Start: 11-23-2020 End: 11-23-2020 Patient encounter procedure 11/23/2020 Office Visit Bam Ryan MD [address] [place] [address] [phone] [facility] Start: 11-01-2020 End: 11-01-2020 Patient encounter procedure 11/01/2020 Office Visit Bam Ryan MD [address] [place] [address] [phone] [facility] Start: 10-19-2020 End: 10-19-2020 Clinical Support Encounter 10/19/2020 Clinical Support Encounter Urology [facility] Start: 10-17-2020 End: 10-17-2020 Admission to same day surgery center 10/17/2020 Surgery Multispecialty Bam Lambert MD [address] [place] [address] [phone] CYSTOURETHROSCOPY W/ FULGURATION/RESECTION LESION BLADDER (TURB) [facility] Comment on above: CYSTOURETHROSCOPY W/ FULGURATION/RESECTI ON LESION BLADDER (TURB) Start: 10-17-2020 Subsequent hospital visit by physician 10/17/2020 Hospital Encounter Multispecialty Bam Lambert MD [address] [place] [address] [phone] Ureteral stricture [facility] Comment on above: Ureteral stricture Start: 10-16-2020 End: 10-16-2020 ambulatory 10/16/2020 Pre-Operative Nurse Assessment Internal Medicine Jhonny Garcia Pre Admission Start: 10-12-2020 End: 10-12-2020 Patient encounter procedure 10/12/2020 Office Visit Bam Ryan MD [address] [address] [phone] [facility] Start: 10-05-2020 End: 09-28-2021 US scan of abdominal aorta US RENAL RETROPERITONEAL Imaging Routine Hydronephrosis Stricture of male urethra, unspecified stricture type Expected: 10/05/2020 (Approximate), Expires: 09/28/2021 [facility] Comment on above: Expected: 10/05/2020 (Approximate), Expi res: 09/28/2021 Start: 09-28-2020 End: 09-28-2021 Basic metabolic 2000 panel - Serum or Plasma BASIC METABOLIC PANEL Lab Routine Hydronephrosis Stricture of male urethra, unspecified stricture type Expected: 09/28/2020, Expires: 09/28/2021 [facility] Comment on above: Expected: 09/28/2020, Expires: Start: 09-28-2020 Subsequent hospital visit by physician 09/28/2020 Hospital Encounter Multispecialty Bam Lambert MD [address] [address] [phone] [facility] Comment on above: Urethral stricture Start: 09-19-2020 End: 09-19-2020 ambulatory 09/19/2020 Pre-Operative Nurse Assessment Internal Medicine [facility] Pre Admission Start: 09-15-2020 End: 09-15-2020 Office Visit 09/15/2020 Office Visit Urology Bam Lambert MD [address] [address] [phone] [facility] Start: 09-06-2020 End: 09-06-2021 CT of abdomen and pelvis CT ABDOMEN/PELVIS WITHOUT CONTRAST Imaging Routine Bladder mass Expected: 09/06/2020, Expires: 09/06/2021 [facility] Comment on above: Expected: 09/06/2020, Expires: Start: 03-10-2014 Pneumococcal vaccination PNEUMOCOCCAL VACCINE SERIES (2 - PCV) [facility] Start: 03-10-2014 Pneumococcal Vaccine: 65+ Years (2 - PCV) Pneumococcal Vaccine: 65+ Years (2 - PCV) [facility] Start: 03-10-2014 Pneumococcal Vaccine: Age 50+ (2 of 2 - PCV) Pneumococcal Vaccine: Age 50+ (2 of 2 - PCV) [facility] Start: 03-10-2014 Pneumococcal Vaccine: Age 65+ (2 of 2 - PCV) Pneumococcal Vaccine: Age 65+ (2 of 2 - PCV) [facility] Start: 2011 Abdominal aortic aneurysm screening ABDOMINAL AORTIC ANEURYSM HIGH RISK SCREEN [facility] Start: 2011 Fall risk assessment Falls Risk Assessment [facility] Start: 2011 Pneumococcal vaccination [facility] Start: 2006 Hepatitis B Vaccines (1 of 3 - Risk 3-dose series) Hepatitis B Vaccines (1 of 3 - Risk 3-dose series) [facility] Start: 2006 RSV patients and/or patients aged 60+ years (1 - 1-dose 60+ series) RSV patients and/or patients aged 60+ years (1 - 1-dose 60+ series) [facility] Start: 01-03-1996 Administration of herpes zoster vaccine Zoster Vaccines (1 of 2) [facility] Start: 01-03-1996 Colonoscopy [facility] Start: 01-03-1996 Prostate specific antigen measurement PROSTATE CANCER SCREENING DISCUSSION [facility] Start: 01-03-1996 Zoster vaccine hzv live for subcutaneous use ZOSTER (SHINGLES) VACCINE (1 of 2) [facility] Start: 01-03-1996 Zoster Vaccines (1 of 2) Zoster Vaccines (1 of 2) [facility] Start: 1991 Colonoscopy COLORECTAL CANCER SCREENING DISCUSSION [facility] Start: 1991 Screening for malignant neoplasm of colon COLORECTAL CANCER SCREENING DISCUSSION [facility] Start: 1986 Fasting lipid profile LIPID SCREENING [facility] Start: 01-03-1968 DTaP/Tdap/Td Vaccines (1 - Tdap) DTaP/Tdap/Td Vaccines (1 - Tdap) [facility] Start: 1965 Hepatitis A Vaccines (1 of 2 - Risk 2-dose series) Hepatitis A Vaccines (1 of 2 - Risk 2-dose series) [facility] Start: 1965 Third diphtheria, tetanus and acellular pertussis (DTaP) vaccination TDAP (ADULT) [facility] Start: 1965 Urine screening for protein CKD: Urine Protein Screening [facility] Start: 01-03-1964 Hepatitis C screening Hepatitis C Screening [facility] Start: 01-03-1964 Tetanus vaccination TETANUS [facility] Start: 1962 COVID-19 VACCINE (1) COVID-19 VACCINE (1) [facility] Start: 1958 COVID-19 VACCINE (1) COVID-19 VACCINE (1) [facility] Start: 1958 Depression screening using PHQ-9 (Patient Health Questionnaire 9) score [facility] Start: 01-03-1956 Urine screening for protein [facility] Start: 1951 COVID-19 VACCINE (1) COVID-19 VACCINE (1) [facility] Start: 1949 History and physical examination, annual for health maintenance Wellness Visit [facility] Start: 1949 Medicare Wellness Visit Medicare Wellness Visit [facility] Start: 1946 Hepatitis C antibody, confirmatory test HEPATITIS C VIRUS SCREENING [facility] Start: 1946 Hepatitis C screening HEPATITIS C VIRUS SCREENING [facility] Start: 1946 Lipid panel Lipid Panel [facility] Start: 1946 Medicare Annual Wellness Visit Medicare Annual Wellness Visit (AWV) [facility] Start: 1946 Screening for osteoporosis Bone Density Scan [facility] Start: 1946 Tetanus vaccination [facility] Start: 1946 TSH Qn TSH [facility] End: 05-30-2023 Bacteria identified in Blood by Culture [facility] Work Phone: Comment on above: STAT (Lab) for 1 Occurrences starting until 05/30/2023 End: 05-11-2024 Bacteria identified in Blood by Culture [facility] Work Phone: Comment on above: STAT (Lab) for 1 Occurrences starting until 05/11/2024 Bacteria identified in Body fluid by Culture BODY FLUID CULTURE AND DIRECT SMEAR Microbiology Routine 10/17/2020 11:29 AM EDT [facility] Bacteria identified in Urine by Culture [facility] Bacteria identified in Urine by Culture URINE CULTURE Microbiology Routine Other urinary incontinence 05/02/2021 1:56 PM EST [facility] End: 05-30-2023 Bacteria identified in Urine by Culture [facility] Work Phone: Comment on above: STAT (Lab) for 1 Occurrences starting until 05/30/2023 Once (Lab) for 1 Occ urrences starting 05/30/2023 until 05/30/2023 End: 06-12-2023 Bacteria identified in Urine by Culture [facility] Work Phone: Comment on above: Once (Lab) for 1 Occurrences starting until 06/12/2023 End: 05-11-2024 Bacteria identified in Urine by Culture [facility] Work Phone: Comment on above: Once (Lab) for 1 Occurrences starting until 05/11/2024 End: 03-08-2024 Bedside PICC Imaging Bedside PICC Imaging Imaging Routine Once for 1 Occurrences starting 03/08/2024 until 03/08/2024 [facility] Work Phone: Comment on above: Once for 1 Occurrences starting 03/08/20 24 until 03/08/2024 Bldr irrigation smpl lavage &/instlj NJ IRRIGATION BLADDER,SIMPLE NJ Charge Routine Urinary frequency Bladder mass Stricture of male urethra, unspecified stricture type Urinary tract infection without hematuria, site unspecified Ordered: 10/12/2020 [facility] Comment on above: Ordered: 10/12/2020 End: 03-14-2024 CBC panel - Blood by Automated count CBC Lab Routine Morning draw (Lab) for 5 Days starting 03/10/2024 until 03/14/2024, 2 completed [facility] Work Phone: Comment on above: Morning draw (Lab) for 5 Days starting 1 until 03/14/2024, 2 completed End: 06-24-2023 Continuous Pulse oximetry, In Phase 1 [facility] Work Phone: Comment on above: Continuous until discontinued starting 0 06/24/2023 End: 02-09-2024 CTA Chest and abdominal vessels W contrast IV [facility] Work Phone: Comment on above: Once for 1 Occurrences starting 02/09/20 24 until 02/09/2024 CYTOLOGY REQUEST CYTOLOGY REQUES T Cytology Routine Urinary frequency Nocturia Personal history of malignant neoplasm of prostate Bladder mass Urinary tract infection without hematuria, site unspecified Ordered: 09/06/2020 [facility] Comment on above: Ordered: 09/06/2020 End: 09-28-2020 CYTOLOGY REQUEST CYTOLOGY REQUEST Cytology Routine One Time for 1 Occurrences starting 09/28/2020 until 09/28/2020 [facility] Comment on above: One Time for 1 Occurrences starting 09/01 until 09/28/2020 End: 10-17-2020 CYTOLOGY REQUEST CYTOLOGY REQUEST Cytology Routine One Time for 1 Occurrences starting 10/17/2020 until 10/17/2020 [employer] [facility] Comment on above: One Time for 1 Occurrences starting 09/30 until 10/17/2020 End: 05-30-2023 ECG 12 lead [facility] Work Phone: Comment on above: Once for 1 Occurrences starting 05/30/20 until 05/30/2023 ECG 12 lead ECG 12 lead ECG STAT 02/09/2024 11:00 PM T [facility] Work Phone: Electrocardiogram, 12-lead PRN ACS symptoms Electrocardiogram, 12-lead PRN ACS symptoms ECG Routine As needed until discontinued starting 03/31/2023 [facility] Work Phone: Comment on above: As needed until discontinued starting Electrocardiogram, 12-lead PRN ACS symptoms Electrocardiogram, 12-lead PRN ACS symptoms ECG Routine As needed until discontinued starting 04/02/2023 [facility] Work Phone: Comment on above: As needed until discontinued starting Electrocardiogram, 12-lead PRN ACS symptoms Electrocardiogram, 12-lead PRN ACS symptoms ECG Routine As needed until discontinued starting 03/05/2024 [facility] Work Phone: Comment on above: As needed until discontinued starting Enteroscopy M2A ENTEROSCOPY CAPSULE GI/Bronch Routine Iron deficiency anemia, unspecified iron deficiency anemia type Ordered: 03/26/2023 [facility] Comment on above: Ordered: 03/26/2023 End: 04-01-2023 Extra Urine [facility] Extra Urine [facility] Lab Timed Once for 1 Occurrences starting 04/01/2023 until 04/01/2023 [facility] Work Phone: Comment on above: Once for 1 Occurrences starting 04/01/20 until 04/01/2023 End: 05-30-2023 Extra Urine Khan Tube Extra Urine [facility] Lab Timed Once for 1 Occurrences starting 05/30/2023 until 05/30/2023 [facility] Work Phone: Comment on above: Once for 1 Occurrences starting 05/30/20 until 05/30/2023 End: 06-12-2023 Extra Urine Khan Tube Extra Urine [facility] Lab Timed Once for 1 Occurrences starting 06/12/2023 until 06/12/2023 [facility] Work Phone: Comment on above: Once for 1 Occurrences starting 06/12/19 until 06/12/2023 End: 05-11-2024 Extra Urine Khan Tube [facility] Work Phone: Comment on above: Once for 1 Occurrences starting 05/11/20 until 05/11/2024 FISTULA ARTERIOVENOUS FISTULA AR TERIOVENOUS ESRD (end stage renal disease) ([facility]) [facility] End: 09-28-2020 Fluoroscopy XR FLUORO < 1 HOUR OR Imaging Routine One Time for 1 Occurrences starting 09/28/2020 until 09/28/2020 [facility] Comment on above: One Time for 1 Occurrences starting 09/01 until 09/28/2020 Fluoroscopy [facility] End: 10-17-2020 Fluoroscopy XR FLUORO < 1 HOUR OR Imaging Routine One Time for 1 Occurrences starting 10/17/2020 until 10/17/2020 [facility] Comment on above: One Time for 1 Occurrences starting 09/30 until 10/17/2020 Fungus identified in Unspecified specimen by Culture FUNGUS CULTURE Microbiology Routine 10/17/2020 11:29 AM EDT [facility] Glucose [Mass/volume ] in Serum or Plasma POCT Glucose Point of Care Testing - Docked Device Routine As needed (Lab) until discontinued starting 06/24/2023 [facility] Work Phone: Comment on above: As needed (Lab) until discontinued start ing 06/24/2023 End: 09-19-2023 Guidance for exchange of nephrostomy tube of Kidney IR nephrostomy tube exchange Imaging Routine Once for 1 Occurrences starting 09/19/2023 until 09/19/2023 [facility] Work Phone: Comment on above: Once for 1 Occurrences starting 09/19/19 until 09/19/2023 End: 09-19-2023 Guidance for percutaneous placement of nephrostomy tube of Kidney [facility] Work Phone: Comment on above: Once for 1 Occurrences starting 09/19/19 until 09/19/2023 End: 11-19-2023 Guidance for percutaneous placement of nephrostomy tube of Kidney IR placement of nephrostomy catheter Imaging Routine ESRD (end stage renal disease) (Multi) Once for 1 Occurrences starting 11/19/2023 until 11/19/2023 [facility] Work Phone: Comment on above: Once for 1 Occurrences starting 11/19/19 until 11/19/2023 End: 04-10-2023 Hepatitis B virus surface Ab [Units/volume] in Serum [facility] Work Phone: Comment on above: Once (Lab) for 1 Occurrences starting until 04/10/2023 End: 04-10-2023 Hepatitis B virus surface Ag [Presence] in Serum or Plasma by Immunoassay [facility] Work Phone: Comment on above: Once (Lab) for 1 Occurrences starting until 04/10/2023 End: 04-10-2023 Hepatitis C virus Ab [Presence] in Serum [facility] Work Phone: Comment on above: Once (Lab) for 1 Occurrences starting until 04/10/2023 End: 04-02-2023 Incentive spirometry Instruct Incentive spirometry Instruct Respiratory Care Routine Once for 1 Occurrences starting 04/02/2023 until 04/02/2023 [facility] Work Phone: Comment on above: Once for 1 Occurrences starting 04/02/20 until 04/02/2023 End: 04-10-2023 Invasive vascular procedure [facility] Service Area Work Phone: Comment on above: Once for 1 Occurrences starting 04/10/20 until 04/10/2023 Lactic acid measurement [facility] Cris post-voiding residual urine&/bladder cap [facility] Comment on above: Ordered: 09/06/2020 Ordered: 10/12/2020 Ordered: 12/12/2020 End: 03-08-2024 Methicillin resistant Staphylococcus aureus [Presence] in Nose by Organism specific culture Staphylococcus Aureus/MRSA Colonization, Culture - PICC Only Microbiology Routine Once (Lab) for 1 Occurrences starting 03/08/2024 until 03/08/2024 [facility] Work Phone: Comment on above: Once (Lab) for 1 Occurrences starting until 03/08/2024 End: 04-01-2023 Music Therapy eval and treat Music Therapy eval and treat Therapeutic Recreation Orderables Routine Until therapy completed for 1 Occurrences starting 04/01/2023 until 04/01/2023 [facility] Work Phone: Comment on above: Until therapy completed for 1 Occurrence s starting 04/01/2023 until 04/01/2023 End: 03-05-2024 Noninvasive Ventilation Noninvasive Ventilation Respiratory Care Routine Continuous until discontinued starting 03/05/2024 [facility] Work Phone: Comment on above: Continuous until discontinued starting 1 Patient Education [facility] Work Phone: Patient referral [facility] Work Phone: POCT URINALYSIS DIPSTICK AUTOMATED W/O SCOP POCT URINALYSIS DIPSTICK AUTOMATED W/O SCOP Point of Care Testing Routine Urinary frequency Bladder mass Stricture of male urethra, unspecified stricture type Ordered: 10/12/2020 [facility] Comment on above: Ordered: 10/12/2020 End: 03-31-2023 Pulse oximetry, continuous Pulse oximetry, continuous Respiratory Care Routine Continuous until discontinued starting 03/31/2023 [facility] Work Phone: Comment on above: Continuous until discontinued starting End: 04-02-2023 Pulse oximetry, continuous Pulse oximetry, continuous Respiratory Care Routine Continuous until discontinued starting 04/02/2023 [facility] Work Phone: Comment on above: Continuous until discontinued starting 1 06/02/2022 End: 03-09-2024 Pulse oximetry, continuous Pulse oximetry, continuous Respiratory Care Routine Continuous until discontinued starting 03/09/2024 [facility] Work Phone: Comment on above: Continuous until discontinued starting End: 06-24-2023 Pulse oximetry, spot Pulse oximetry, spot Respiratory Care Routine Once for 1 Occurrences starting 06/24/2023 until 06/24/2023 [facility] Work Phone: Comment on above: Once for 1 Occurrences starting 06/24/19 until 06/24/2023 End: 04-12-2023 Respiratory order/instruction Respiratory order/instruction Respiratory Care Routine Every 2 hours while awake for 72 Occurrences starting 04/04/2023 until 04/12/2023 [facility] Work Phone: Comment on above: Every 2 hours while awake for 72 Occurre nces starting 04/04/2023 until 04/12/2023 End: 02-11-2023 RF Kidney and Ureter and Urinary bladder Views W contrast retrograde FL pyelogram retrograde Imaging Once for 1 Occurrences starting 02/11/2023 until 02/11/2023 [facility] Work Phone: Comment on above: Once for 1 Occurrences starting 02/12/20 until 02/11/2023 End: 07-15-2024 SPECT Heart perfusion NM Myocardial Perfusion Multiple SPECT Imaging Routine Chest pain due to coronary artery disease (HCC) 1 Occurrences starting 07/15/2023 until 07/15/2024 [facility] Work Phone: Comment on above: 1 Occurrences starting 07/15/2023 until 07/15/2024 SURGICAL PATHOLOGY REQUEST SURGICAL PATHOLOGY REQUEST Surg Path Routine Ureteral stricture Bladder mass Release Upon Ordering for 1 Occurrences starting 10/17/2020 [facility] Comment on above: Release Upon Ordering for 1 Occurrences starting 10/17/2020 End: 12-28-2024 Ultrasound hemodialysis access Ultrasound hemodialysis access Vascular Ultrasound Routine ESRD (end stage renal disease) on dialysis (HCC) 1 Occurrences starting 10/29/2023 until 12/28/2024 [facility] Work Phone: Comment on above: 1 Occurrences starting 10/29/2023 until 12/28/2024 End: 04-01-2023 Urinalysis complete W Reflex Culture panel - Urine [facility] Work Phone: Comment on above: Once (Lab) for 1 Occurrences starting until 04/01/2023 Once for 1 Occurrenc es starting 04/01/2023 until 04/01/2023 End: 05-30-2023 Urinalysis complete W Reflex Culture panel - Urine [facility] Work Phone: Comment on above: Once (Lab) for 1 Occurrences starting until 05/30/2023 End: 06-12-2023 Urinalysis complete W Reflex Culture panel - Urine [facility] Service Area Work Phone: Comment on above: Once (Lab) for 1 Occurrences starting until 06/12/2023 End: 05-11-2024 Urinalysis complete W Reflex Culture panel - Urine [facility] Service Area Work Phone: Comment on above: Once (Lab) for 1 Occurrences starting until 05/11/2024 Urine culture [facility] Urine culture [facility] Urine culture [facility] End: 10-07-2024 [facility] Comment on above: 1 Occurrences starting 10/07/2024 until 10/07/2024 End: 10-09-2020 US scan of abdominal aorta US RENAL RETROPERITONEAL Imaging Routine Hydronephrosis Stricture of male urethra, unspecified stricture type 1 Occurrences starting 10/09/2020 until 10/09/2020 [facility] Comment on above: 1 Occurrences starting 10/09/2020 until 10/09/2020 US scan of abdominal aorta US RENAL RETROPERITONEAL Imaging Routine Hydronephrosis Stricture of male urethra, unspecified stricture type 10/09/2020 4:13 PM EDT [facility] End: 04-01-2024 XR Hip Views [facility] Work Phone: Comment on above: Once for 1 Occurrences starting 04/01/20 24 until 04/01/2024 Immunizations Immunization Date Immunization Notes Care Provider Fa skip 03-23-2024 influenza, high dose seasonal, preservative-free Atajames Hernandez Work [facility] 02-17-2024 tuberculin skin test ; purified protein derivative solution, intradermal Emily Bustillos MD Work Phone: [facility] Work Phone: 04-29-2023 Pneumococcal conjuga te vaccine, 20-valent (PREVNAR 20) Emily Bustillos MD Work Phone: [facility] Work Phone: 04-23-2023 RESPIRATORY SYNCYTIA L VIRUS (RSV), ELIGIBLE PTS, 0.5 ML (ABRYSVO) Emily Bustillos MD Work Phone: [facility] Work Phone: 04-16-2023 Moderna SARS-CoV-2 Vaccination Emily Bustillos MD Work Phone: [facility] Work Phone: 04-09-2023 Flu vaccine, quadrivalent, high-dose, preservative free, age 65y+ (FLUZONE) Emily Bustillos MD Work Phone: [facility] Work Phone: 04-09-2023 influenza, high dose seasonal, preservative-free Emily Bustillos MD Work Phone: [facility] Work Phone: 04-09-2023 influenza virus vacc ine, unspecified formulation Emily Bustillos MD Work Phone: [facility] Work Phone: 03-31-2023 flu vaccine, quadrivalent, high-dose, preservative free, age 65y+ (FLUZONE) Harjeet Long DO Work Phone: [facility] Work Phone: 11-29-2022 tuberculin skin test ; purified protein derivative solution, intradermal Emily Bustillos MD Work Phone: [facility] Work Phone: 02-14-2022 influenza, injectabl e, quadrivalent, preservative free Dr. Jyoti eHrnandez DO Work Phone: [facility] 02-14-2022 Influenza, Seasonal, Quadrivalent, Adjuvanted Tiana Roddy DO Work Phone: [facility] Work Phone: 02-14-2022 Moderna COVID-19 vaccine, bivalent, blue cap/khan label *Check age/dose* Tiana De León DO Work Phone: [facility] Work Phone: 02-14-2022 Moderna SARS-CoV-2 Vaccination Emily Bustillos MD Work Phone: [facility] Work Phone: 02-14-2022 influenza virus vacc ine, unspecified formulation Atajames Elise DO Work Phone: [facility] 05-02-2021 SARS-COV-2 (COVID-19 ), Mrna, Lnp-S, Pf, 50 Mcg/ 0.25 ML Dose MODERNA BOOSTER Natalia Porras MD Work Phone: [facility] 03-28-2021 influenza, injectabl e, quadrivalent, preservative free Natalia Porras MD Work Phone: [facility] 08-04-2020 Covid (Moderna) Dr. Jyoti bishop DO Work Phone: [facility] 07-07-2020 Covid (Moderna) Dr. Jyoti bishop DO Work Phone: [facility] 03-18-2019 influenza, injectabl e, quadrivalent, preservative free [place] [facility] Dr[facility] Hernandez [facility] 03-18-2019 influenza seasonal v irus vaccine 0.5 ML Suspension Prefilled Syringe [facility] Dr[facility] 03-18-2019 influenza virus vacc ine, unspecified formulation [facility] 02-04-2017 influenza, injectabl e, quadrivalent, contains preservative [facility] 02-04-2017 influenza, injectabl e, quadrivalent, preservative free Tiana De León DO Work Phone: [facility] Work Phone: 03-10-2013 pneumococcal polysaccharide vaccine, 23 valent Tiana De León DO Work Phone: [facility] Work Phone: 02-01-2011 tuberculin skin test ; purified protein derivative solution, intradermal Emily Bustillos MD Work Phone: [facility] Work Phone: Payers Date Payer Category Payer Self-pay 2023 Medicaid [id number] 2023 Medicaid [id number] 2023 Medicare PPO [employer] MEDICARE P JAQUELINE (PPO) [id number] 2021 Medicare (Managed Care) 1.2. [id number] 2021 Private Health Insurance [id number] 2019 Medicare [id number] 2017 Private Health Insurance 2016 Medicare MEDICARE AETNA [place] MEDICARE AETNA PPO xxxxxxxx 2016-Present xxxxxxxx [id number] 2016 Medicare [id number]. [id number] 1946 Unknown [id number] 2.840.1.095741.3.579.2. 1945 Unknown [id number] 2.840.1.382091.3.579.2. 1946 Unknown [id number] 2.840.1.106816.3.579.2 1946 Unknown [id number] 2.16840.1.311493.3.579.2. 1946 Unknown [id number] 2.16840.1.923020.3.579.2. 1946 Unknown [id number] 2.16840.1.141999.3.579.2. 1946 Unknown [id number] 2.16840.1.508132.3.579.2. 1946 Unknown [id number] 2.16840.1.690113.3.579.2. 1946 Unknown [id number] 2.16840.1.115800.3.579.2. 1946 Unknown [id number] 2.16840.1.249182.3.579.2. 1946 Unknown [id number] 2.16840.1.906730.3.579.2. 1946 Unknown [id number] 2.16840.1.893950.3.579.2. 1946 Unknown [id number] 2.16840.1.565250.3.579.2. 1068 1946 Unknown [id number] 2.840.1.584546.3.579.2. 1068 1946 Unknown [id number] 2.840.1.037154.3.579.2. 1068 1946 Unknown [id number] 2.840.1.492270.3.579.2. 1068 1946 Unknown [id number] 2.840.1.443245.3.579.2. 1946 Unknown [id number] 2.840.1.812841.3.579.2. 1946 Unknown [id number] 2.16840.1.187519.3.579.2. 1946 Unknown [id number] 2.16840.1.015294.3.579.2. 1946 Unknown [id number] 2.16840.1.863888.3.579.2. 1946 Unknown [id number] 2.16840.1.964937.3.579.2. 1946 Unknown [id number] 2.16.840.1.509100.3.579.2. 903 1946 Unknown [id number] 2.16.840.1.758496.3.579.2. 903 1946 Unknown [id number] 2.16.840.1.419229.3.579.2. 651 1946 Unknown [id number] 2.16.840.1.429543.3.579.2. 1244 1946 Unknown [id number] 2.840.1.486098.3.579.2. 1244 1946 Unknown [id number] 2.840.1.198655.3.579.2. 1243 1946 Unknown [id number] 2.840.1.932760.3.579.2. 1243 1946 Unknown [id number] 2.840.1.163150.3.579.2. 1243 1946 Unknown [id number] 2.840.1.281979.3.579.2. 1243 1946 Unknown [id number] 2.840.1.876027.3.579.2. 1244 1946 Unknown [id number] 2.840.1.598528.3.579.2. 1243 1946 Unknown [id number] 2.840.1.772247.3.579.2. 1244 1946 Unknown [id number] 2.840.1.071010.3.579.2. 4 1946 Unknown [id number] 2.16.840.1.389044.3.579.2. 1243 1946 Unknown [id number] 2.16.840.1.618676.3.579.2. 627 1946 Unknown [id number] 2.840.1.913127.3.579.2. 1243 1946 Unknown [id number] 2.16.840.1.169020.3.579.2. 1243 1946 Unknown [id number] 2.16.840.1.778781.3.579.2. 1243 1946 Unknown [id number] 2.16.840.1.511650.3.579.2. 1243 1946 Unknown [id number] 2.16.840.1.369102.3.579.2. 1243 1946 Unknown [id number] 2.16.840.1.880657.3.579.2. 1242 1946 Unknown [id number] 2.16.840.1.421284.3.579.2. 3 1946 Unknown [id number] 2.16.840.1.992123.3.579.2. 1243 1946 Unknown [id number] 2.16.840.1.267308.3.579.2. 983 1946 Unknown [id number] 2.16.840.1.825712.3.579.2. 983 1946 Unknown [id number] 2.16.840.1.960011.3.579.2. 983 1946 Unknown [id number] 2.16840.1.700001.3.579.2. 900 1946 Unknown [id number] 2.16.840.1.760445.3.579.2. 900 1946 Unknown [id number] 2.16.840.1.593178.3.579.2. 900 1946 Unknown [id number] 2.16.840.1.506873.3.579.2. 903 1946 Unknown [id number] 2.16.840.1.193645.3.579.2. 903 1946 Unknown [id number] 2.16.840.1.991492.3.579.2. 983 1946 Unknown [id number] 2.16.840.1.391372.3.579.2. 983 1946 Unknown [id number] 2.16.840.1.825225.3.579.2. 983 1946 Unknown [id number] 2.16.840.1.439798.3.579.2. 983 1946 Unknown [id number] 2.16.840.1.664667.3.579.2. 983 1946 Unknown [id number] 2.16.840.1.160791.3.579.2. 983 1946 Unknown [id number] 2.16.840.1.750861.3.579.2. 1245 1946 Unknown [id number] 2.16.840.1.821106.3.579.2. 1245 Unknown Unknown [id number] 2.16.840.1.256993.3.579.2. 462 Unknown [id number] 2.16.840.1.455300.3.579.2. 462 Unknown [id number] 2.16.840.1.037877.3.579.2. 462 Unknown [id number] 2.16.840.1.535528.3.579.2. 462 Unknown [id number] 2.16.840.1.636569.3.579.2. 462 Unknown [id number] 2.16.840.1.960608.3.579.2. 462 Unknown [id number] 2.16.840.1.824309.3.579.2. 462 Unknown [id number] 2.16.840.1.516714.3.579.2. 462 Unknown [id number] 2.16.840.1.116178.3.579.2. 462 Unknown [id number] 2.16.840.1.263726.3.579.2. 462 Unknown [id number] 2.16.840.1.745900.3.579.2. 462 Unknown [id number] 2.16.840.1.074499.3.579.2. 462 Unknown [id number] 2.16.840.1.941310.3.579.2. 462 Unknown [id number] 2.16.840.1.480595.3.579.2. 462 Unknown [id number] 2.16.840.1.390284.3.579.2. 462 Unknown [id number] 2.16.840.1.692810.3.579.2. 462 Unknown [id number] 2.16.840.1.961867.3.579.2. 462 Unknown [id number] 2.16.840.1.240278.3.579.2. 462 Unknown [id number] 2.16.840.1.369238.3.579.2. 462 Unknown [id number] 2.16.840.1.329148.3.579.2. 462 Unknown [id number] 2.16.840.1.232112.3.579.2. 462 Social History Date Type Detail Facility Start: 08-12-2019 End: 12-13-2024 Tobacco smoking status NVIS Former smoker [facility] Start: 06-02-1964 End: 06-02-1979 [facility] of tobacco [facility] Start: 08-12-2019 End: 01-27-2023 Alcohol intake Current drinker of alcohol (finding) [facility] Start: 10-01-2016 Alcohol Comment rarely [facility] Start: 1945 Sex Assigned At Not on file A [facility] Start: 10-10-2017 End: 01-21-2024 Alcohol intake Yes [facility] Start: 08-21-2020 End: 12-10-2023 Tobacco use and exposure Never used [facility] Start: 02-23-2023 End: 05-11-2024 Exposure to SARS-CoV-2 (event) Not sure [facility] Start: 06-02-1964 End: 06-02-1979 History of tobacco use [facility] Tobacco smoking consumption unknown [facility] Start: 12-26-2022 End: 01-21-2024 Former tobacco use Former tobacco use [facility] Gender identity Identifies as ma le gender (finding) [facility] Start: 03-26-2023 End: 10-12-2024 Alcohol intake Ex-drinker (finding) [facility] How often to you hav e a drink containing alcohol? Never [facility] How many standard drinks containing alcohol do you have on a typical day? Patient does not drink [facility] Work Phone: In the past 12 month s, was there a time when you were not able to pay the mortgage or rent on time? No [facility] Work Phone: Start: 06-23-2023 End: 01-21-2024 Alcohol intake Lifetime non-drinker (finding) [facility] Start: 04-06-2024 Tobacco smoking status Never s moked tobacco (finding) [facility] Start: 1945 Sex Assigned At Male A [facility] Start: 06-07-2016 End: 08-17-2024 Sex Male (finding) [facility] Medical Equipment Procedure Code Equipment Code Equipment Origin al Text Equipment Identifier Dates Stent, Variable Length Counter, 6.0 Fr - [id number] Start: 09-28-2020 Contour Vl Varia ble Length Ureteral Stent [id number] Start: 10-17-2020 Stem, Femur 132d Sz 6 Accolade Ii - [id number] [id number] , [id number] FDA Start: 04-02-2023 Stent, Polaris U ltra 5fr 24cm, Disposable - [id number] Start: 06-24-2023 Sleeve, V40 +0mm Std Taper Unitrax - [id number] [id number] , [id number] FDA Start: 04-02-2023 Head, Endo 52mm Unitrax Modular - [id number] [id number], [id number] FDA Start: 04-02-2023 Sealant 10ml Hemostatic Matrix Fast Prep Floseal W/Recothrom - [id number] [id number])[id number], [id number]_[facility] FDA Start: 07-31-2023 Stent, Polaris U ltra 5fr 24cm, Disposable - [id number] 186365_[facility] Start: 03-09-2024 Goals Date Patient Goal Desired Activity /State Functional Status Date Assessment Result Facility 07-27-2024 Are you deaf, or do you have serious difficulty hearing No 07/27/2024 1:13 PM EST Vicky Toussaintella No [facility] 07-27-2024 Are you blind, or do you have serious difficulty seeing, even when wearing glasses No 07/27/2024 1:13 PM EST Vicky Toussaintella No [facility] 07-27-2024 Do you have serious difficulty walking or climbing stairs Yes 07/27/2024 1:13 PM EST Vicky Toussaintella Yes [facility] 07-27-2024 Do you have difficul ty dressing or bathing Yes 07/27/2024 1:13 PM Vicky Shellella Yes [facility] 07-27-2024 Because of a physica l, mental, or emotional condition, do you have difficulty doing errands alone such as visiting a physician's office or shopping Yes 07/27/2024 1:13 PM EST Norbert Suzella Yes [facility] 07-16-2024 Functional status Activity Abili ty With Assist of 1 [facility] Work Phone: 07-01-2024 Functional status Activity Abili ty With Assist of 1 [facility] Work Phone: 06-29-2024 Functional status Ambulates;Bedside Commo de [facility] Work Phone: 06-06-2024 Functional status Back to bed [facility] Work Phone: 04-06-2024 Functional Status ID band on, Allergy Band on, Call device within reach, Bed in low position, Upper/Half-Length side-rails up, Safety level maintained [facility] 04-07-2023 Do you have serious difficulty walking or climbing stairs Yes 04/07/2023 11:22 AM EST Wendy Tristan, KAREN Yes [facility] Functional observable [facility] Mental Status Date Assessment Result Facility 08-16-2024 Cognitive function Level Of Cons ciousness Awake;Alert;Appropriate;Fol lows Commands [facility] Work Phone: 07-27-2024 Because of a physica l, mental, or emotional condition, do you have serious difficulty concentrating, remembering, or making decisions No 07/27/2024 1:13 PM EST Halie Toussaint [facility] 07-16-2024 Cognitive function Voice/Name [facility] Work Phone: 07-01-2024 Cognitive function Appropriate [facility] Work Phone: 06-30-2024 Cognitive function Voice/Name [facility] Work Phone: 06-06-2024 Cognitive function Voice/Name [facility] Work Phone: 04-06-2024 Mental Status Oriented x 4 [facility] 01-11-2023 Cognitive functi ons [id number] [facility] 11-29-2022 Cognitive functi ons [id number] [facility] Clinical Notes 08-21-2020 to 12-13-2024 Note Date & Type Note Facility 12-13-2024 Discharge summary Note Date/Time December 13, 2024 12:57pm [facility] Medical Records Department [address] [place] [address] Emergency Department Summary 12/13/24 MR#: [id number] Acct: [id number] Name: GENET BOOTH Rep #:[id number] : 1945 79 From: Koffi Coffman MD PCP: Dr. Ata Hernandez MD Status:REG ER Location: ED HPI History of Present Illness Chief Complaint: Jamison C/O Informant: patient and EMS Narrative Narrative: 79-year-old male presents by EMS because of accidental dislodgment of his suprapubic catheter. He states he woke up this morning and the catheter was lying next to him on the floor out of his bed with half the amount or less of the typical amount of urine that he wakes up with, along with some urine in the bed and small amount of blood. He states the suprapubic catheter is relatively new, placed several weeks ago by Dr. Mei with urology at [facility] in [place]. He states he had prostatectomy and then a lot of scar tissue and has had significant issues getting catheters in the past which led to him getting the suprapubic catheter. He does not know what size it was and did not bring it with him. [facility] Medical History History of ESBL E. coli infection Hypoxia SOB (shortness of breath) Influenza A Dialysis patient Kidney disease Hepatitis Former smoker Hypertension ESRD on hemodialysis AV fistula End-stage renal disease Hyperlipidemia History of recurrent UTIs Chronic indwelling Jamison catheter Urinary retention Prostate cancer Candidiasis, intertrigo Orthostatic hypotension Hypothyroidism Gout Obesity (BMI 30.0-34.9) Home Medications ?Medication ?Instructions ?Recorded ?Last Taken ?Type allopurinol 100 mg tablet 100 mg PO DAILY gout 5 12/01/24 History levothyroxine 88 mcg tablet 88 mcg PO DAILY thyroid 12/01/24 History midodrine 5 mg tablet 5 mg PO BID blood pressure 0 06/03/24 12/01/24 History sertraline 50 mg tablet 50 mg PO DAILY mental health 06/03/24 12/01/24 History simvastatin 20 mg tablet 20 mg PO QPM cholesterol 07/2711/30/24 History calcitriol 0.25 mcg capsule 0.25 mcg PO DAILY 10/22/24 11/09/24 History nitrofurantoin macrocrystal 100 mg 100 mg PO BID 7 day s #14 caps 12/01/24 Unknown Rx capsule Allergy/AdvReac Type Severity Reaction Status Date / Time iodine Allergy Intermediate Hives Verified 12/13/24 10:43 Family History Other Heart disease Hypertension Surgical History History of left hip hemiarthroplasty History of prostate surgery Social History household members: none Smoking Status: Former smoker alcohol intake: never substance use type: does not use additional social history: Ambulates with a wheeled walker at baseline ROS ROS ED Constitutional Constitutional ED: Denies chills or fever(s) Eyes Eyes: Denies change in vision or diplopia ENT ENT ED: Denies rhinorrhea or sore throat Cardiovascular Cardiovascular: Denies chest pain or palpitations Respiratory/Chest Respiratory/Chest: Denies cough or dyspnea Gastrointestinal Gastrointestinal: Denies abdominal pain, diarrhea, nausea or vomiting Genitourinary Genitourinary ED: Reports difficulty urinating and hematuria; Denies dysuria Musculoskeletal Musculoskeletal: Denies back pain or neck pain Integumentary Denies abscess or rash Neurologic Neurologic: Denies headache(s), paresthesias or weakness Psychiatric Psychiatric: Reports anxiety; Denies suicidal thoughts EXAM Physical Exam Const Vital Signs: 12/13/24 10:43 Temperature 98.0 F Temperature Source Oral Pulse Rate 80 Respiratory Rate 16 Blood Pressure 146/62 H Blood Pressure Mean 90 Pulse Ox 95 Oxygen Delivery Method Room Air Positive well nourished and well developed General Appearance ED: well developed and NAD HEENT Reports moist mucous membranes normocephalic and atraumatic Eyes PERRL and EOMs intact bilaterally Neck full ROM and supple Resp normal respiratory effort and clear to auscultation bilaterally Cardio regular rate, regular rhythm and no murmurs GI non-tender and non-distended GI Narrative: Suprapubic site is a little off-center to the right, it appears benign, there isno active discharge and no signs of tenderness or infection. No other abdominaltenderness. Auscultation: normoactive bowel sounds Palpation: soft Back/Spine no CVA tenderness General Back: other FROM Extremity normal to inspection General Extremety ED: Negative for edema, pulses abnormal or tenderness General Extremity: Negative for edema or pulses abnormal Neuro oriented x3, CN's II-XII intact bilaterally and no sensory deficits noted Sensorium / Orientation: awake and alert Motor Exam: strength 5/5 throughout Skin no rashes or lesions noted and no wounds MDM MDM MDM Narrative Medical decision making narrative: See the procedure note, we were able to get the catheter in. I spoke with Dr. Mei his urologist from [facility], who agrees that since we have 200 cc of nonbloody urine out and the catheter is flowing and the patient is asymptomatic and doing well with it in place, no confirmation imaging necessary, he will follow-up with him in the office, patient alerted. Procedures Other Procedures Procedure(s): Suprapubic Jamison catheter replacement by EDMD: With sterile prep and drape with Betadine and sterile gloves, I initially attempted a 14 Syrian but was unable to pass it, so then we tried a 10 Syrian silicone, and it was difficult to place and then with steady pressure I was able to aspirate a small amount of urine from the tube but then there was a sudden small amount of brief pain and then I was able to aspirate a steady stream of urine with a small amount of blood that cleared quickly, and inflate the 5 cc balloon without difficulty. Bag placed/attached. No complications other than above, tolerated well. Discharge Plan Triage Chief Complaint: Jamison C/O ED Provider: Koffi Coffman Dx/Rx/DC Orders Clinical Impression: Suprapubic catheter dysfunction, Encounter for care or replacement of suprapubic tube Instructions: Suprapubic Catheter Dc Prescriptions: No Action calcitriol 0.25 mcg capsule 0.25 mcg PO DAILY Patient Comments: PT NT SURE IF HE TAKES nitrofurantoin macrocrystal 100 mg capsule 100 mg PO BID 7 Days Qty: 14 0RF Rx Instructions: must administer with a meal/food midodrine 5 mg tablet 5 mg PO BID levothyroxine 88 mcg tablet 88 mcg PO DAILY allopurinol 100 mg tablet 100 mg PO DAILY simvastatin 20 mg tablet 20 mg PO QPM sertraline 50 mg tablet 50 mg PO DAILY Primary Care Provider: Ata Hernandez Referrals: dr. gale [Other] - As soon as possible (Call for appointment date/time) Print Language: Honduran Disposition Disposition: Home, Self Care What to do if you have Problems For any increased pain, shortness of breath, bleeding, nausea or vomiting, chest pain, or any unexpected problems, contact your Primary Care Provider. Call [facility] ([phone]) or report to the closest Emergency Room. Call 911 if necessary. 12/13/24 1257 <Electronically signed by Koffi Coffman MD> Cosigner Signature (if applicable): CC: Dr. Ata Hernandez MD ~ Signed [facility] Work Phone: [phone] Discharge summary [facility] Medical Records Department [address] [place] [address] Emergency Department Summary 12/13/24 MR#: [id number] Acct: [id number] Name: GENET BOOTH Rep #:[id number] : 1945 79 From: Koffi Coffman MD PCP: Dr. Ata Hernandez MD Status:REG ER Location: ED HPI History of Present Illness Chief Complaint: Jamison C/O Informant: patient and EMS Narrative Narrative: 79-year-old male presents by EMS because of accidental dislodgment of his suprapubic catheter. He states he woke up this morning and the catheter was lying next to him on the floor out of his bed with half the amount or less of the typical amount of urine that he wakes up with, along with some urine in the bed and small amount of blood. He states the suprapubic catheter is relatively new, placed several weeks ago by Dr. Mei with urology at [facility] in [place]. He states he had prostatectomy andthen a lot of scar tissue and has had significant issues getting catheters in the past which led tohim getting the suprapubic catheter. He does not know what size it was and did not bring it with him. [facility] Medical History History of ESBL E. coli infection Hypoxia SOB (shortness of breath) Influenza A Dialysis patient Kidney disease Hepatitis Former smoker Hypertension ESRD on hemodialysis AV fistula End-stage renal disease Hyperlipidemia History of recurrent UTIs Chronic indwelling Jamison catheter Urinary retention Prostate cancer Candidiasis, intertrigo Orthostatic hypotension Hypothyroidism Gout Obesity (BMI 30.0-34.9) Home Medications ?Medication ?Instructions ?Recorded ?Last Taken ?Type allopurinol 100 mg tablet 100 mg PO DAILY gout 5 12/01/24 History levothyroxine 88 mcg tablet 88 mcg PO DAILY thyroid 12/01/24 History midodrine 5 mg tablet 5 mg PO BID blood pressure 0 06/03/24 12/01/24 History sertraline 50 mg tablet 50 mg PO DAILY mental health 06/03/24 12/01/24 History simvastatin 20 mg tablet 20 mg PO QPM cholesterol 07/2711/30/24 History calcitriol 0.25 mcg capsule 0.25 mcg PO DAILY 10/22/24 11/09/24 History nitrofurantoin macrocrystal 100 mg 100 mg PO BID 7 day s #14 caps 12/01/24 Unknown Rx capsule Allergy/AdvReac Type Severity Reaction Status Date / Time iodine Allergy Intermediate Hives Verified 12/13/24 10:43 Family History Other Heart disease Hypertension Surgical History History of left hip hemiarthroplasty History of prostate surgery Social History household members: none Smoking Status: Former smoker alcohol intake: never substance use type: does not use additional social history: Ambulates with a wheeled walker at baseline ROS ROS ED Constitutional Constitutional ED: Denies chills or fever(s) Eyes Eyes: Denies change in vision or diplopia ENT ENT ED: Denies rhinorrhea or sore throat Cardiovascular Cardiovascular: Denies chest pain or palpitations Respiratory/Chest Respiratory/Chest: Denies cough or dyspnea Gastrointestinal Gastrointestinal: Denies abdominal pain, diarrhea, nausea or vomiting Genitourinary Genitourinary ED: Reports difficulty urinating and hematuria; Denies dysuria Musculoskeletal Musculoskeletal: Denies back pain or neck pain Integumentary Denies abscess or rash Neurologic Neurologic: Denies headache(s), paresthesias or weakness Psychiatric Psychiatric: Reports anxiety; Denies suicidal thoughts EXAM Physical Exam Const Vital Signs: 12/13/24 10:43 Temperature 98.0 F Temperature Source Oral Pulse Rate 80 Respiratory Rate 16 Blood Pressure 146/62 H Blood Pressure Mean 90 Pulse Ox 95 Oxygen Delivery Method Room Air Positive well nourished and well developed General Appearance ED: well developed and NAD HEENT Reports moist mucous membranes normocephalic and atraumatic Eyes PERRL and EOMs intact bilaterally Neck full ROM and supple Resp normal respiratory effort and clear to auscultation bilaterally Cardio regular rate, regular rhythm and no murmurs GI non-tender and non-distended GI Narrative: Suprapubic site is a little off-center to the right, it appears benign, there isno active dischargeand no signs of tenderness or infection. No other abdominaltenderness. Auscultation: normoactive bowel sounds Palpation: soft Back/Spine no CVA tenderness General Back: other FROM Extremity normal to inspection General Extremety ED: Negative for edema, pulses abnormal or tenderness General Extremity: Negative for edema or pulses abnormal Neuro oriented x3, CN's II-XII intact bilaterally and no sensory deficits noted Sensorium / Orientation: awake and alert Motor Exam: strength 5/5 throughout Skin no rashes or lesions noted and no wounds MDM MDM MDM Narrative Medical decision making narrative: See the procedure note, we were able to get the catheter in. I spoke with Dr. Mei his urologist from [facility], who agrees that since we have 200 cc of nonbloody urine out and the catheter is flowing and the patient is asymptomatic and doing well with it in place, no confirmation imaging necessary, he will follow-up with him in the office, patient alerted. Procedures Other Procedures Procedure(s): Suprapubic Jamison catheter replacement by EDMD: With sterile prep and drape with Betadine and sterile gloves, I initially attempted a 14 Syrian but was unable to pass it, so then we tried a 10 Syrian silicone, and it was difficult to place and then with steady pressure I was able to aspirate a small amount of urine from the tube but then there was a sudden small amount of brief pain and then I was able to aspirate a steady stream of urine with a small amount of blood that cleared quickly, and inflate the 5 cc balloon without difficulty. Bag placed/attached. No complications otherthan above, tolerated well. Discharge Plan Triage Chief Complaint: Jamison C/O ED Provider: Koffi Coffman Dx/Rx/DC Orders Clinical Impression: Suprapubic catheter dysfunction, Encounter for care or replacement of suprapubic tube Instructions: Suprapubic Catheter Dc Prescriptions: No Action calcitriol 0.25 mcg capsule 0.25 mcg PO DAILY Patient Comments: PT NT SURE IF HE TAKES nitrofurantoin macrocrystal 100 mg capsule 100 mg PO BID 7 Days Qty: 14 0RF Rx Instructions: must administer with a meal/food midodrine 5 mg tablet 5 mg PO BID levothyroxine 88 mcg tablet 88 mcg PO DAILY allopurinol 100 mg tablet 100 mg PO DAILY simvastatin 20 mg tablet 20 mg PO QPM sertraline 50 mg tablet 50 mg PO DAILY Primary Care Provider: Ata Hernandez Referrals: dr. gale [Other] - As soon as possible (Call for appointment date/time) Print Language: Honduran Disposition Disposition: Home, Self Care What to do if you have Problems For any increased pain, shortness of breath, bleeding, nausea or vomiting, chest pain, or any unexpected problems, contact your Primary Care Provider. Call [facility] ([phone]) or report to the closest Emergency Room. Call 911 if necessary. 12/13/24 1257 Cosigner Signature (if applicable): CC: Dr. Ata Hernandez MD ~ Signed [facility]07-02-2025 Radiology Diagnostic study note [facility] Imaging Services [address], [place] [address] Abdomen/Pelvis without Cont MR#: [id number] Acct: [id number] Name: GENET BOOTH Rep #: [id number] : 1945 M 79 From: Kenia Ponce MD PCP: Dr. Ata Hernandez MD Status: REG ER Study:Abdomen/Pelvis without Cont Date of Exa m: 12/01/24 Exam# [id number] Ordering Dr: Quinn Waddell MD PROCEDURE: ABDOMEN/PELVIS WITHOUT CONT 12/01/2024 REASON FOR EXAM: Diffuse abdominal pain TECHNIQUE: ABDOMEN/PELVIS WITHOUT CONT Noncontrast technique limits evaluation of the abdominal and pelvic viscera. Coronal and Sagittal reconstruction series were provided. One or more dose reduction techniques were used (e.g., Automated exposure control, adjustment of the mA and/or kV according to patient size, use of iterative reconstruction technique). RADIATION DOSE SUMMARY: CTDlvol: 20.40 mGy DLP: 1233.39 mGycm COMPARISON: 10/22/2024 FINDINGS: Lung bases: Mild dependent atelectasis Liver: Normal size. No obvious mass. Gallbladder: Unremarkable Spleen: Normal size. Pancreas: Normal size. No surrounding inflammation. Adrenals: Unremarkable Kidneys: The amount of hydronephrosis in the right kidney is decreased since theprevious study but there still at least moderate hydronephrosis. The right-sided JJ stent is stable and unchanged. No suspicious calcifications are noted along the course of the JJ stent. Left kidney again shows significant cortical thinning with nonobstructing renal stones and a dilated left renal pelvis and dilated left ureter. No obstructing stone is identified. The asymmetry of the hydronephrosis suggests significant bladder outlet issues. Bladder: Bladder is collapsed around a Jamison catheter Bowel: Nondistended fluid-filled small and large bowel loops suggest diffuse enteritis. Scattered colonic diverticula without CT evidence of acute diverticulitis. Appendix: Not visualized No free intraperitoneal fluid, air, or suspicious adenopathy. Extensive atherosclerotic calcifications are present. Bony structures show degenerative change, replaced left hip joint free of complication Bones: Degenerative changes of the spine, and pelvis. CT/Abdomen/Pelvis without Cont IMPRESSION: Persistent, though decreased hydronephrosis and hydroureter compared to the previous study. Stable appearance of a right-sided JJ stent. No obstructing calcifications identified. Findings likely due to extensive bladder outletissues. Bladder is collapsed around a Jamison catheter No free intraperitoneal fluid, air, or suspicious adenopathy. Nondistended fluid-filled bowel loops suggest diffuse enteritis. Scattered colonic diverticulosis without CT evidence of acute diverticulitis Diffuse atherosclerosis Degenerative bony changes Reading Location: [id number] CC: Dr. Quinn Waddell MD; Dr. Ata Hernandez MD ~ Secretary Office Clerk: Signed [facility]06-10-2025 Discharge summary [facility] Medical Records Department [address] [place] [address] Emergency Department Summary 11/09/24 MR#: [id number] Acct: [id number] Name: GENET BOOTH Rep #:[id number] : 1945 79 From: Ren Cali PCP: Dr. Ata Haus, MD Status:REG ER Location: ED HPI History of Present Illness Chief Complaint: Jamison C/O Informant: patient Narrative Narrative: Presents with Jamison catheter dysfunction. Suprapubic cath placed a week ago in [place]. Chronic Jamison due to prostate cancer states had multiple surgeries in the past. Hypertension he states he hada dressing change by nursing this past 5 days ago since then having difficulties. States the strap placed on his leg with slide. Today would not drain much having suprapubic discomfort on arrival to the ED he states started to have mild drainage. He hasdialysis makes urine had dialysis yesterday. She reported there was blood in his Jamison catheter. Denies any anticoagulants. Blood has cleared up. [facility] Medical History History of ESBL E. coli infection Hypoxia SOB (shortness of breath) Influenza A Dialysis patient Kidney disease Hepatitis Former smoker Hypertension ESRD on hemodialysis AV fistula End-stage renal disease Hyperlipidemia History of recurrent UTIs Chronic indwelling Jamison catheter Urinary retention Prostate cancer Candidiasis, intertrigo Orthostatic hypotension Hypothyroidism Gout Obesity (BMI 30.0-34.9) Home Medications ?Medication ?Instructions ?Recorded ?Last Taken ?Type allopurinol 100 mg tablet 100 mg PO DAILY gout 5 11/09/24 History levothyroxine 88 mcg tablet 88 mcg PO DAILY thyroid 11/09/24 History midodrine 5 mg tablet 5 mg PO BID blood pressure 0 06/03/24 11/09/24 History sertraline 50 mg tablet 50 mg PO DAILY mental health 06/03/24 11/09/24 History simvastatin 20 mg tablet 20 mg PO QPM cholesterol 07/2711/08/24 History calcitriol 0.25 mcg capsule 0.25 mcg PO DAILY 10/22/24 11/09/24 History cefdinir 300 mg capsule 300 mg PO Q12H #14 caps 10/31 Unknown Rx Allergy/AdvReac Type Severity Reaction Status Date / Time iodine Allergy Intermediate Hives Verified 11/09/24 13:16 Family History Other Heart disease Hypertension Surgical History History of left hip hemiarthroplasty History of prostate surgery Social History household members: none Smoking Status: Former smoker alcohol intake: never substance use type: does not use additional social history: Ambulates with a wheeled walker at baseline ROS ROS ED Constitutional Constitutional ED: Denies fever(s) Cardiovascular Cardiovascular: Denies chest pain Respiratory/Chest Respiratory/Chest: Denies cough Gastrointestinal Gastrointestinal: Reports abdominal pain; Denies diarrhea or vomiting Genitourinary Genitourinary ED: Reports other Details: Jamison catheter dysfunction Musculoskeletal Musculoskeletal: Denies none Integumentary Denies rash or wounds Neurologic Neurologic: Denies weakness EXAM Physical Exam Const Vital Signs: 11/09/24 13:16 11/09/24 14:20 11/09/24 15:00 Temperature 98.3 F 97.8 F 97.5 F L Temperature Source Temporal Oral Oral Pulse Rate 101 H 88 82 Respiratory Rate 18 16 17 Blood Pressure 118/71 136/68 H 111/60 Blood Pressure Mean 86 90 77 Pulse Ox 93 95 93 Oxygen Delivery Method Room Air Room Air Room Air Positive well nourished and well developed General Appearance ED: well developed HEENT normocephalic and atraumatic Eyes General Eye ED: Yes normal appearance of both eyes Neck full ROM Resp normal respiratory effort and normal air movement Cardio regular rate and regular rhythm GI soft to palpation GI Narrative: Tender suprapubic no distention. Suprapubic cath orifice clean, dry intact there was dressing with dry drainage that was removed. Narrative: Jamison catheter with minimal urine in the bag. Extremity normal to inspection and full ROM Neuro oriented x3 Skin Skin Narrative: See above. MDM MDM MDM Narrative Medical decision making narrative: Interventions / MDM: Differential diagnosis: Jamison catheter dysfunction, end-stage renal disease on hemodialysis, UTI Diagnosis considered but do not suspect: N/A My EKG interpretation: N/A Imaging independently reviewed and interpreted by myself: N/A External documents reviewed: N/A Test considered but not ordered:N/A ED course: Patient nontoxic vital stable. I removed the dry dressing, gentle manipulation Jamison catheter there is no resistance. Will have nursing flush theFoley catheter, will send for urine with culture. Nursing flushed with no difficulties and draining. 1645: Patient clinically feeling better. Awaiting urine results. 1745: urine noting signs of infection culture pending. Started on cefdinir. No active bleeding noted clinically nontoxic do not feel blood work or was necessary. Due to suprapubic cath being placed aweek ago, this would not be exchanged emergency department. He will follow-up with his urologist. Discussed return precautions. All questions were answered. Re-evaluation: stable Disposition discussed with patient/family/significant other: Patient Case discussed with consulting clinician: N/A This note was generated with Pocketbook dictation software. It may contain incorrectwords, spelling, and punctuation that were not noted in checking the note beforesigning. Lab Data Attestation: I reviewed the patient's lab results. Labs: Laboratory Results - last 24 hr 11/09/24 16:20 Urine Color Straw Urine Clarity Turbid Urine pH 8.0 Ur Specific Zoar 1.010 Urine Protein 100 H Urine Glucose (UA) Normal Urine Ketones Negative Urine Occult Blood 250 H Urine Nitrite Negative Urine Bilirubin Negative Urine Urobilinogen Normal Ur Leukocyte Esterase 500 H Discharge Plan Triage Chief Complaint: Jamison C/O ED Provider: Ren Uriarte Dx/Rx/DC Orders Clinical Impression: Catheter-associated urinary tract infection, Suprapubic catheter dysfunction Instructions: Urinary Tract Infections in Men, Suprapubic Catheter Dc Prescriptions: New cefdinir 300 mg capsule 300 mg PO Q12H Qty: 14 0RF No Action calcitriol 0.25 mcg capsule 0.25 mcg PO DAILY Patient Comments: PT NT SURE IF HE TAKES midodrine 5 mg tablet 5 mg PO BID levothyroxine 88 mcg tablet 88 mcg PO DAILY allopurinol 100 mg tablet 100 mg PO DAILY simvastatin 20 mg tablet 20 mg PO QPM sertraline 50 mg tablet 50 mg PO DAILY Primary Care Provider: Ata Hernandez Referrals: Ata Hernandez MD [Primary Care Provider] - Activity Restrictions/Additional Instructions: Urine with signs of infection urine culture sent and pending. Take and finish antibiotics prescribed. Follow-up with your urologist. You develop any fevers or worsening symptoms, return to the ED forreevaluation. Print Language: Honduran Disposition Disposition: Home, Self Care What to do if you have Problems For any increased pain, shortness of breath, bleeding, nausea or vomiting, chestpain, or any unexpected problems, contact your Primary Care Provider. Call [facility] ([phone]) or report tothe closest Emergency Room. Call 911 if necessary. 11/09/24 1044 Cosigner Signature (if applicable): CC: Dr. Ata Hernandez MD ~ Signed [facility]06-10-2025 Discharge summary Author Ren Uriarte [facility] Note Date/Time November 09, 2024 5:44 pm [facility] Medical Records Department [address] [place] [address] Emergency Department Summary 11/09/24 MR#: [id number] Acct: [id number] Name: GENET BOOTH Rep #:[id number] : 1945 79 From: Ren Cali PCP: Dr. Ata Hernandez MD Status:REG ER Location: ED HPI History of Present Illness Chief Complaint: Jamison C/O Informant: patient Narrative Narrative: Presents with Jamison catheter dysfunction. Suprapubic cath placed a week ago in [place]. Chronic Jamison due to prostate cancer states had multiple surgeries in the past. Hypertension he states he had a dressing change by nursing this past 5 days ago since then having difficulties. States the strap placed on his leg with slide. Today would not drain much having suprapubic discomfort on arrival to the ED he states started to have mild drainage. He hasdialysis makes urine had dialysis yesterday. She reported there was blood in his Jamison catheter. Denies any anticoagulants. Blood has cleared up. [facility] Medical History History of ESBL E. coli infection Hypoxia SOB (shortness of breath) Influenza A Dialysis patient Kidney disease Hepatitis Former smoker Hypertension ESRD on hemodialysis AV fistula End-stage renal disease Hyperlipidemia History of recurrent UTIs Chronic indwelling Jamison catheter Urinary retention Prostate cancer Candidiasis, intertrigo Orthostatic hypotension Hypothyroidism Gout Obesity (BMI 30.0-34.9) Home Medications ?Medication ?Instructions ?Recorded ?Last Taken ?Type allopurinol 100 mg tablet 100 mg PO DAILY gout 5 11/09/24 History levothyroxine 88 mcg tablet 88 mcg PO DAILY thyroid 11/09/24 History midodrine 5 mg tablet 5 mg PO BID blood pressure 0 06/03/24 11/09/24 History sertraline 50 mg tablet 50 mg PO DAILY mental health 06/03/24 11/09/24 History simvastatin 20 mg tablet 20 mg PO QPM cholesterol 07/2711/08/24 History calcitriol 0.25 mcg capsule 0.25 mcg PO DAILY 10/22/24 11/09/24 History cefdinir 300 mg capsule 300 mg PO Q12H #14 caps 10/31 Unknown Rx Allergy/AdvReac Type Severity Reaction Status Date / Time iodine Allergy Intermediate Hives Verified 11/09/24 13:16 Family History Other Heart disease Hypertension Surgical History History of left hip hemiarthroplasty History of prostate surgery Social History household members: none Smoking Status: Former smoker alcohol intake: never substance use type: does not use additional social history: Ambulates with a wheeled walker at baseline ROS ROS ED Constitutional Constitutional ED: Denies fever(s) Cardiovascular Cardiovascular: Denies chest pain Respiratory/Chest Respiratory/Chest: Denies cough Gastrointestinal Gastrointestinal: Reports abdominal pain; Denies diarrhea or vomiting Genitourinary Genitourinary ED: Reports other Details: Jamison catheter dysfunction Musculoskeletal Musculoskeletal: Denies none Integumentary Denies rash or wounds Neurologic Neurologic: Denies weakness EXAM Physical Exam Const Vital Signs: 11/09/24 13:16 11/09/24 14:20 11/09/24 15:00 Temperature 98.3 F 97.8 F 97.5 F L Temperature Source Temporal Oral Oral Pulse Rate 101 H 88 82 Respiratory Rate 18 16 17 Blood Pressure 118/71 136/68 H 111/60 Blood Pressure Mean 86 90 77 Pulse Ox 93 95 93 Oxygen Delivery Method Room Air Room Air Room Air Positive well nourished and well developed General Appearance ED: well developed HEENT normocephalic and atraumatic Eyes General Eye ED: Yes normal appearance of both eyes Neck full ROM Resp normal respiratory effort and normal air movement Cardio regular rate and regular rhythm GI soft to palpation GI Narrative: Tender suprapubic no distention. Suprapubic cath orifice clean, dry intact there was dressing with dry drainage that was removed. Narrative: Jamison catheter with minimal urine in the bag. Extremity normal to inspection and full ROM Neuro oriented x3 Skin Skin Narrative: See above. MDM MDM MDM Narrative Medical decision making narrative: Interventions / MDM: Differential diagnosis: Jamison catheter dysfunction, end-stage renal disease on hemodialysis, UTI Diagnosis considered but do not suspect: N/A My EKG interpretation: N/A Imaging independently reviewed and interpreted by myself: N/A External documents reviewed: N/A Test considered but not ordered:N/A ED course: Patient nontoxic vital stable. I removed the dry dressing, gentle manipulation Jamison catheter there is no resistance. Will have nursing flush theFoley catheter, will send for urine with culture. Nursing flushed with no difficulties and draining. 1645: Patient clinically feeling better. Awaiting urine results. 174: urine noting signs of infection culture pending. Started on cefdinir. No active bleeding noted clinically nontoxic do not feel blood work or was necessary. Due to suprapubic cath being placed a week ago, this would not be exchanged emergency department. He will follow-up with his urologist. Discussed return precautions. All questions were answered. Re-evaluation: stable Disposition discussed with patient/family/significant other: Patient Case discussed with consulting clinician: N/A This note was generated with Pocketbook dictation software. It may contain incorrectwords, spelling, and punctuation that were not noted in checking the note beforesigning. Lab Data Attestation: I reviewed the patient's lab results. Labs: Laboratory Results - last 24 hr 11/09/24 16:20 Urine Color Straw Urine Clarity Turbid Urine pH 8.0 Ur Specific Zoar 1.010 Urine Protein 100 H Urine Glucose (UA) Normal Urine Ketones Negative Urine Occult Blood 250 H Urine Nitrite Negative Urine Bilirubin Negative Urine Urobilinogen Normal Ur Leukocyte Esterase 500 H Discharge Plan Triage Chief Complaint: Jamison C/O ED Provider: Ren Uriarte Dx/Rx/DC Orders Clinical Impression: Catheter-associated urinary tract infection, Suprapubic catheter dysfunction Instructions: Urinary Tract Infections in Men, Suprapubic Catheter Dc Prescriptions: New cefdinir 300 mg capsule 300 mg PO Q12H Qty: 14 0RF No Action calcitriol 0.25 mcg capsule 0.25 mcg PO DAILY Patient Comments: PT NT SURE IF HE TAKES midodrine 5 mg tablet 5 mg PO BID levothyroxine 88 mcg tablet 88 mcg PO DAILY allopurinol 100 mg tablet 100 mg PO DAILY simvastatin 20 mg tablet 20 mg PO QPM sertraline 50 mg tablet 50 mg PO DAILY Primary Care Provider: Ata Hernandez Referrals: Ata Hernandez MD [Primary Care Provider] - Activity Restrictions/Additional Instructions: Urine with signs of infection urine culture sent and pending. Take and finish antibiotics prescribed. Follow-up with your urologist. You develop any fevers or worsening symptoms, return to the ED for reevaluation. Print Language: Honduran Disposition Disposition: Home, Self Care What to do if you have Problems For any increased pain, shortness of breath, bleeding, nausea or vomiting, chestpain, or any unexpected problems, contact your Primary Care Provider. Call [facility] ([phone]) or report to the closest Emergency Room. Call 911 if necessary. 11/09/24 1744 <Electronically signed by Ren Cali> Cosigner Signature (if applicable): CC: Dr. Ata Hernandez MD ~ Signed [facility] Work Phone: [phone] History of Present illness Narrative* Tommy Mei MD - 10/12/2024 10:30 AM EDT Chief Complaint Hydronephrosis Ureteral Stricture Urinary Retention BPH w/LUTS Recurrent UTI's Hx of Prostate Cancer HPI Mr. Booth is a 79 y.o. male here today to discuss recent imaging results. Pt was previously seen by Sharmila Espinoza for recurrent UTI's, Hx of Prostate Cancer, BPH, Hydronephrosis, ureteral stricture, and urinary retention. Previously known to [facility], last seen 2020. More recently he has been seen by Dr. Bah. He is previously known for a ureteral stricture, hydronephrosis, prostate cancer, bladder mass, chronic urinary retention, and recurrent urinary tract infections. He is status post TURBT in September 2020. Patho logy came back negative for malignancy and showed rare squamous and urothelial cells with acute inflammation. Prostate cancer was treated with radiation. He says he still gets his PSA checked yearly.PSA in April 2023 was 0.1. He reports 5-6 urinary tract infections per year. Had previously seenID. His catheter is changed every 30 days by home health. Chronic hydronephrosis treated with ureter stents. I have reviewed the patient's medical history in detail and updated the computerized patient record. Review of Systems Constitutional: No fevers or chills Skin: Negative for rash Endocrine: No heat/cold intolerance Gastrointestinal: Negative for constipation, nausea or vomiting Genitourinary: Negative for new lower urinary tract symptoms, gross hematuria or dysuria. Musculoskeletal: Negative for flank pain Neurological: Negative for frequent headaches or dizziness Lymph/Heme: Negative for leg swelling or calf pain Physical Exam Smoking Status Former Constitutional: NAD, WDWN. Cardiovascular: Regular rate. Pulmonary/Chest: Respirations are even and non-labored bilaterally. Abdominal: Soft. No distension, tenderness, masses or guarding. No CVA tenderness. Extremities: ANDERS x 4, Warm. No clubbing. No cyanosis. Skin: [place], warm and dry. No rashes noted. Labs PSA 10/07/24 - 0.[address] AP w/o Con 05/11/24 - Moderate left hydroureteronephrosis. Left nephrolithiasis. 3 mm calcification adjacent to the left UVJ, may represent a phlebolith versus a distal ureteral calculus. Right-sided double-J ureteral stent. Interval resolution of the right hydronephrosis. Inflammatory changes at the right renal pelvis, along the right ureter and at urinary bladder. Please correlate with laboratory values/urinalysis to evaluate for ascending urinary tract infection with cystitis, ureteritis and pyelitis. Colonic diverticulosis. Large stool ball distending the rectum, please correlate for fecal impaction. AKOSUA 10/07/24 - Severe right-sided hydronephrosis is demonstrated. Two left-sided renal cysts are present superiorly an extrarenal left renal pelvis is noted; convincing hydronephrosis is not seen. Slightly increased parenchymal reflectivity could relate to normal variation or mild chronic renal disease. The bladder is not assessed. Assessment 79 y.o. male here today to discuss recent imaging results. Pt was previously seen by Sharmila Espinoza for recurrent UTIS, Hx of Prostate Cancer, BPH, Hydronephrosis, ureteral stricture, and urinary retention. Hydronephrosis/Ureteral Stricture Has had a ureter stricture and chronic hydronephrosis managed with ureter stents and perc tubes. Heis unsure of the last time the ureter stent was changed. Currently has a stent in place currently. States he did have to be referred to [facility] due to the complicated stent placement on the Left ureter. Pt states that he has no pain or bothersome sxs. Advised pt that we will get an updated CT scan. Urinary Retention Pt currently has a chronic indwelling jamison catheter, gets changed monthly by pt's Home Health, pt did state at his prior OV with Sharmila Espinoza, that he would like a SP tube to be placed if possible due to extreme pain and discomfort he experiences when he gets his jamison changed. Pt states that he doeshave sediment in his urine, jamison has been draining well. BPH w/LUTS Per Sharmila Espinoza's last note, pt had a TURP done in the past. States that he has severe pain when his jamison is changed, states there is damage from the TURP, was in the hospital after a cath change due to bleeding. Pt states that he believes that a SP tube being placed would help. Advised pt that IR would have to do this. Pt agrees with this plan. History of Prostate Cancer He is status post prostate radiation for history of prostate cancer. He says his PSA is still checked. Recurrent UTI's Reports 5-6 urinary tract infections per year. Plan 1. Will order CT AP w/o Con and BMP. 2. Will refer pt to Dr. Sullivan, IR, for SP tube. 3. Follow up in 1-2 weeks. * Bianca Davison - 10/12/2024 10:30 AM EDT Nurse Note: Review of Systems Constitutional: Negative. HENT: Negative. Eyes: Negative. Respiratory: Negative. Cardiovascular: Negative. Gastrointestinal: Negative. Endocrine: Negative. Genitourinary: Negative. Musculoskeletal: Negative. Skin: Negative. Allergic/Immunologic: Negative. Neurological: Negative. Hematological: Negative. Psychiatric/Behavioral: Negative. Nursing Assessment: Physical Exam Patient returns for follow up on urinary retention/hydro Imaging completed 10/07/24 PSA 0.079 10/07/24 He reports recent usage of antibiotics for bladder infection Patient has catheter, drains well, no issues Denies hematuria, fever, nausea Patient is nervous because we moved his appointment to a sooner date (AKOSUA results) [facility] History of Present illness Narrative* Jocelyne King - 09/09/2024 11:30 AM EDT Nurse Note: Review of Systems Constitutional: Negative. HENT: Negative. Eyes: Negative. Respiratory: Negative. Cardiovascular: Negative. Gastrointestinal: Negative. Endocrine: Negative. Genitourinary: Positive for difficulty urinating (Has catheter). Musculoskeletal: Negative. Skin: Negative. Allergic/Immunologic: Negative. Neurological: Negative. Hematological: Negative. Psychiatric/Behavioral: Negative. Nursing Assessment: Physical Exam Patient is new to clinic for retention. Patient currently has a catheter. Patient has home health that changes catheter 6-8 weeks. * Sharmila Espinoza CNP - 09/09/2024 11:30 AM EDT HISTORY OF PRESENT ILLNESS Genet Booth is a 79 y.o. male presenting today as a new patient for the evaluation of multiple urologic concerns. Previously known to [facility], last seen 2020. More recently he has been seen byDr. Bah. He is previously known for a ureteral stricture, hydronephrosis, prostate cancer, bladdermass, chronic urinary retention, and recurrent urinary tract infections. He is status post TURBT inMay 2020. Pathology came back negative for malignancy and showed rare squamous and urothelial cellswith acute inflammation. Prostate cancer was treated with radiation. He says he still gets his PSA checked yearly. PSA in April 2023 was 0.1. He reports 5-6 urinary tract infections per year. Charles ramires seen ID. His catheter is changed every 30 days by home health. Chronic hydronephrosis treated with ureter stents. He says he is unsure exactly when the last stent was replaced but he feels it was relatively recently. Review of the chart shows that a right ureter stent is in place (possible since October 2023?). Left ureter stent was unable to be placed the last time it was attempt so he was sent for right side perc tube in September 2023. He no longer has a perc tube. He has also apparently had a roto rooter at some point. His main concern today is the pain he has with catheter changes. He wants an SP tube placed. Reviewof the chart shows this may have been attempted at some point. Medical history includes DM2, CKD, and dialysis MWF. Former smoker. Dr. Bah notes, Dr. Lambert notes, Lucita CORE FILER notes, PSA, BMP reviewed Nurse Note: Review of Systems Constitutional: Negative. HENT: Negative. Eyes: Negative. Respiratory: Negative. Cardiovascular: Negative. Gastrointestinal: Negative. Endocrine: Negative. Genitourinary: Positive for difficulty urinating (Has catheter). Musculoskeletal: Negative. Skin: Negative. Allergic/Immunologic: Negative. Neurological: Negative. Hematological: Negative. Psychiatric/Behavioral: Negative. Nursing Assessment: Physical Exam Patient is new to clinic for retention. Patient currently has a catheter. Patient has home health that changes catheter 6-8 weeks. 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; Burning with urination; Benign prostatic hyperplasia with incomplete bladder emptying; Dysuria; Chronic pain of left knee; Urinary tract infection with hematuria; Chronic fatigue; Acute idiopathic gout involving toe; Decreased exercise tolerance; body mass index of 40.0-49.9; Urethral stricture; Bladder tumor; Hydronephrosis; Ureteral stricture; Bladder mass; Physical deconditioning; Renal stones; Dyspnea on exertion; Prostate cancer; Anemia in stage 4 chronic kidney disease; Acute renal failure with acute cortical necrosis; Iron deficiency anemia; Acute renal failure; Anemia in end-stage renal disease; Needs flu shot; Left hip impingement syndrome; Arthralgia of left hip; Chronic kidney disease (CKD), stage V; Elevated parathyroid hormone; and Hypotension of hemodialysis on their problem list. Current Outpatient Medications Medication Sig Dispense Refill acetaminophen 500 MG tablet Take 1 tablet by mouth every 6 hours as needed for Pain. Allopurinol 100 MG tablet Take 1 tablet by mouth daily. 90 tablet 3 Amino Acids (AMINO ACID PROTEIN PO) Take 30 mL by mouth 3 (three) times a day. bisacodyl 10 MG Suppository suppository Insert 1 suppository rectally daily. calcitRIOL 0.25 MCG capsule Take 1 capsule by mouth daily. 30 capsule 11 DISABILITY PLACARD Disability placard end date 03/02/2026. 1 Each 0 hydroCODone-acetaminophen 5-325 MG tablet Take 1 tablet by mouth every 8 hours as needed. Levothyroxine 88 MCG tablet Take 1 tablet by mouth daily. 90 tablet 3 magnesium hydroxide 400 MG/5ML Suspension Take 30 mL by mouth daily as needed for Constipation. 3780 mL 2 menthol-zinc oxide (Calmoseptine) 0.44-20.6 % Ointment Apply 1 Application topically. midodrine 5 MG tablet Take 1 tablet by mouth 2 times daily. 60 tablet 11 multivitamin tablet Take 1 tablet by mouth daily. Ondansetron 4 MG tablet Take 1 tablet by mouth every 8 hours as needed for Nausea / Vomiting. Polyethylene glycol 17 g Pack packet Take 1 packet by mouth daily. Sertraline 50 MG tablet Take 1 tablet by mouth daily. 90 tablet 3 Simethicone 125 MG Chew Tab tablet Chew 1.44 tablets Every 8 hours as needed. simvastatin 20 MG tablet Take 1 tablet by mouth every evening at 6 PM. 90 tablet 2 Sodium chloride 0.65 % Solution nasal spray 1 spray by Nasal route as needed. No current facility-administered medications for this visit. family history includes Alzheimer's in his father; Aneurysm in his mother; Clotting Disorder in hismaternal grandfather; Hypertension in his mother. Past Medical History: Diagnosis Date Allergies Chicken pox Depression Dysmetabolic syndrome X Essential hypertension, benign Hepatitis hepatitis B-1980s Hyperlipidemia Hypothyroidism Obesity CHLOÉ (obstructive sleep apnea) Prostate cancer Renal disease left kidney is swollen 09/19/2020 SOB (shortness of breath) STATES HAS BEEN OUT OF SHAPE THE LAST YEAR WITH COVID AND KNEE PAIN Urinary retention Past Surgical History: Procedure Laterality Date CYSTOURETHROSCOPY W/ URETEROSCOPY/PYELOSCOPY DIAGNOSTIC Left 10/17/2020 Laterality: Left; Surgeon: Bam Lambert MD; Location: [facility] OR CYSTOURETHROSCOPY W/ INSERTION STENT URETER Left 10/17/2020 Laterality: Left; Surgeon: Bam Lambert MD; Location: [facility] OR CYSTOURETHROSCOPY W/ FULGURATION/RESECTION LESION BLADDER (TURB) Left 10/17/2020 Laterality: Left; Surgeon: Bam Lambert MD; Location: [facility] OR CYSTOURETHROSCOPY W/ INTERNAL URETHROTOMY (DVIU) N/A 09/28/2020 Laterality: N/A; Surgeon: Bam Lambert MD; Location: [facility] OR CYSTOURETHROSCOPY W/ INSERTION STENT URETER Left 09/28/2020 Laterality: Left; Surgeon: Bam Lambert MD; Location: [facility] OR COLONOSCOPY FOR COLORECTAL CANCER SCREENING LOW/AVERAGE RISK INDIVIDUAL 2019 EXTRACTION EXTRACAPSULAR CATARACT W/ IMPLANT (ECCE IOL) Bilateral HEART CATHETERIZATION 10-12 years ago KNEE REPLACEMENT Right Social History Tobacco Use Smoking Status Former Current packs/day: 0.00 Types: Cigarettes Quit date: 1979 Years since quittin.3 Smokeless Tobacco Never Social History Substance and Sexual Activity Alcohol Use Not Currently Comment: rarely Physical Examination: Vital Signs: Resp 16 Ht 1.803 m (5' 11) Wt 103 kg (227 lb) BMI 31.66 kg/m Smoking Status Former Constitutional: Oriented to person, place, and time. Appears well developed and well nourished. Eyes: conjunctiva/corneas clear, normal vision Ears/Nose/Mouth Eyes -EOMI. Ears - External normal ear. Hearing normal. Mouth - Lips normal color. Head/Neck: Face symmetrical, trachea midline, Head - Normocephalic. symmetrical. Normal ROM, neck supple. Pulmonary/chest: Normal respiratory effort, non-labored breathing. Abdominal/GI: Soft, non-tender, no organomegaly. Neurologic: Alert and oriented x3. No focal neurological deficits noted. Extremities: No clubbing, cyanosis, or edema noted, no calf tenderness bilaterally. Skin: Warm and dry.Normal turgor, well-hydrated, no rashes noted. Psych: Normal mood and affect. Behavior is normal. Jamison catheter draining to gravity ASSESSMENT AND PLAN Urinary retention Ureter stricture Hydronephrosis Recurrent UTI History of prostate cancer The patient has a very long and complex urologic history. It sounds like he has had a TURP (roto rooter) in the past. Has had a ureter stricture and chronic hydronephrosis managed with ureter stents and perc tubes. He is unsure of the last time the ureter stent was changed. His catheter is currently being changed every 30 days by home health but he prefers to have a suprapubic tube placed if possible due to the extreme pain and discomfort he goes through with changes. He is status post prostateradiation for history of prostate cancer. He says his PSA is still checked. Reports 5-6 urinary tract infections per year. We discussed management options. I recommended a cystoscopy to further evaluate his ongoing issues and to establish a baseline for care going forward. He is adamant he does not want to do this unlesshe is sedated. He would like an SP placed if possible. He will follow up with one of the urologistsfor a physical evaluation to see if this is possible. AKOSUA/PSA ordered to be done prior to his next visit. Ureter stent exchange may need done in the near future, given it appears he may of had this for almost 1 year? Patient was advised to call with any questions or concerns. If symptoms worsen patient was advised to follow up in our office or the Emergency Dept. Benefits, risks, contraindications, and complications of recommended treatments were explained. The patient understands and agrees to proceed with plan. [facility] Discharge summary Author Ren Uriarte [facility] Note Date/Time August 16, 2024 11: 28pm [facility] Medical Records Department [address] [place] [address] Emergency Department Summary 08/16/24 MR#: [id number] Acct: [id number] Name: GENET BOOTH Rep #:[id number] : 1945 79 From: Ren Cali PCP: Dr. Ata Hernandez MD Status:REG ER Location: ED HPI History of Present Illness Chief Complaint: Syncope Informant: patient Narrative Narrative: Brought in by EMS from home for syncopal episode. Patient is returning from dialysis when he got out of the transport car being held by his caregiver on steps he felt lightheaded and went down. He was held by his caregiver. No injuries. No trouble drome with chest pains or shortness of breath. History oforthostasis EMS arrival blood pressures in the 70s. Reported 2 L fluid was removed that is typical. Dry weight is 278 pounds per patient. Denies cough. Denies recent vomiting or diarrhea. He is a chronic Jamison due to prostate cancer he states 2 L bag he makes nearly 2/3 of urine that he empties a day. Hewas seen this past Friday for UTI. He states he is on antibiotics. Denies fever chills or sweats. Patient ambulates with a rollator. PFSH [facility] Medical History Hypoxia SOB (shortness of breath) Influenza A Dialysis patient Kidney disease Hepatitis Former smoker Hypertension ESRD on hemodialysis AV fistula End-stage renal disease Hyperlipidemia History of recurrent UTIs Chronic indwelling Jamison catheter Urinary retention Prostate cancer Candidiasis, intertrigo Orthostatic hypotension Hypothyroidism Gout Obesity (BMI 30.0-34.9) Home Medications ?Medication ?Instructions ?Recorded ?Last Taken ?Type allopurinol 100 mg tablet 100 mg PO DAILY gout 5 07/14/24 History levothyroxine 88 mcg tablet 88 mcg PO DAILY thyroid 07/14/24 History midodrine 5 mg tablet 5 mg PO BID blood pressure 0 06/03/24 07/14/24 History nystatin 100,000 unit/gram topical 1 applic topical BI D PRN skin 06/03/24 Unknown History cream irritation oxybutynin chloride 5 mg tablet 5 mg PO BID bladder 07/14/24 History sertraline 50 mg tablet 50 mg PO DAILY mental health 06/03/24 07/14/24 History sevelamer carbonate 800 mg tablet 800 mg PO TIDCM bloo d pressure 06/03/24 07/14/24 History simvastatin 20 mg tablet 20 mg PO QPM cholesterol 07/2707/12/24 History oseltamivir 30 mg capsule (Tamiflu) 30 mg PO UD 3 days #3 caps 07/16/24 Unknown Rx prednisone 20 mg tablet 20 mg PO DAILY #7 tabs 07/16 Unknown Rx cefdinir 300 mg capsule 300 mg PO Q12H #14 caps 07/31 12/24 Unknown Rx Allergy/AdvReac Type Severity Reaction Status Date / Time iodine Allergy Intermediate Hives Verified 08/16/24 16:46 Family History Other Heart disease Hypertension Surgical History History of left hip hemiarthroplasty History of prostate surgery Social History household members: none Smoking Status: Former smoker alcohol intake: never substance use type: does not use additional social history: Ambulates with a wheeled walker at baseline ROS ROS ED Constitutional Constitutional ED: Denies chills, fever(s) or sweats ENT ENT ED: Denies sore throat Cardiovascular Cardiovascular: Reports other Details: Syncope ; Denies chest pain, leg edema, palpitations or racing heartbeat Respiratory/Chest Respiratory/Chest: Denies cough, dyspnea or dyspnea on exertion Gastrointestinal Gastrointestinal: Denies abdominal pain, diarrhea, nausea or vomiting Genitourinary Genitourinary ED: Reports hematuria; Denies dysuria or urinary frequency Musculoskeletal Musculoskeletal: Denies back pain, extremity pain or neck pain Integumentary Denies rash or wounds Neurologic Neurologic: Denies headache(s), paresthesias or weakness EXAM Physical Exam Const Vital Signs: 08/16/24 16:42 08/16/24 16:49 08/16/24 17:49 Temperature 98.3 F 98.0 F Temperature Source Oral Temporal Pulse Rate 100 84 Respiratory Rate 20 H 21 H Respiratory Pattern Normal Blood Pressure 115/56 L 115/60 Blood Pressure Mean 75 78 Pulse Ox 95 92 Oxygen Delivery Method Room Air Room Air 08/16/24 18:00 08/16/24 22:57 Temperature 97.9 F Temperature Source Temporal Pulse Rate 83 89 Respiratory Rate 23 H 20 H Respiratory Pattern Blood Pressure 124/70 H 134/84 H Blood Pressure Mean 88 100 Pulse Ox 90 97 Oxygen Delivery Method Room Air Positive well nourished and well developed General Appearance ED: well developed and NAD HEENT HEENT Narrative: Mild dry mucosal membranes. normocephalic and atraumatic Eyes General Eye ED: Yes normal appearance of both eyes Neck full ROM Chest Wall Chest: Negative for tenderness Resp normal respiratory effort and normal air movement Effort and Inspection: symmetric chest movement; Negative for respiratory distress Cardio regular rate, regular rhythm and no murmurs Peripheral Pulses: pulses 2+ throughout GI normal to inspection, nondistended, normoactive bowel sounds and non-tender Palpation: Negative for guarding or rebound tenderness present Narrative: Jamison catheter tubing yellow to bloody urine. Extremity normal to inspection General Extremety ED: Negative for edema or tenderness General Extremity: Negative for edema Neuro oriented x3, CN's II-XII intact bilaterally and no sensory deficits noted Sensorium / Orientation: awake and alert Skin no rashes or lesions noted and no wounds MDM MDM MDM Narrative Medical decision making narrative: Interventions / MDM: Differential diagnosis: Syncope, orthostasis, urinary tract infection, chronic Jamison, end-stage renal disease on hemodialysis Diagnosis considered but do not suspect: No clinical sepsis My EKG interpretation: Sinus rate of 83, no ST or T wave changes. PACs noted. QTc 455. Imaging independently reviewed and interpreted by myself: N/A External documents reviewed: Urine culture from 3 days ago with Pseudomonas resistant to Cipro. He was switched over from Keflex to Cipro on his visit. Test considered but not ordered:N/A ED course: Patient single episode EKG normal. Mild dry mucosal membranes. Gentle fluids given for dialysis history. Will check basic labs to recheck urine. EKG with no acute findings. Labs normal white count normal hemoglobin. Creatinine 2.96 with a potassium 4.1. History of dialysis. 2129: Urine noting nitrites and leukocytes. Reviewed from culture he days ago Pseudomonas resistant to Cipro that he was sent home with. Sensitive to cefepime. Will give IV Rocephin. Patient able to ambulate with his walker per nursing. Discussed with patient his Jamison catheter will be nidus for infection. With infection discussed exchange, however he declined stating that it can be performed by his home nurse. Discussed skin does exchange sooner rather than later. He understands this. Prescription of cefdinir sent to his pharmacy. He will stop his Cipro. All questions were answered. Re-evaluation: stable Disposition discussed with patient/family/significant other: Patient Case discussed with consulting clinician: N/A This note was generated with Pocketbook dictation software. It may contain incorrectwords, spelling, and punctuation that were not noted in checking the note beforesigning. Lab Data Attestation: I reviewed the patient's lab results. Labs: Laboratory Results - last 24 hr 08/16/24 08/16/24 18:15 21:10 WBC 9.6 RBC 4.06 L Hgb 11.9 L Hct 37.6 L MCV 92.6 MCH 29.3 MCHC 31.6 L RDW Std Deviation 56.8 H RDW Coeff of Filomena 16.8 H Plt Count 251 MPV 10.1 Immature Gran % (Auto) 0.800 Neut % (Auto) 77.1 H Lymph % (Auto) 10.2 L Burnet % (Auto) 9.8 Eos % (Auto) 1.5 Baso % (Auto) 0.6 Absolute Neuts (auto) 7.4 Absolute Lymphs (auto) 0.98 Nucleated RBC % 0 Sodium 139 Potassium 4.1 Chloride 96 L Carbon Dioxide 26.3 Anion Gap 16 H BUN 23 H Creatinine 2.96 H Estim Creat Clear Calc 25.11 L Est GFR (MDRD) Non-Af 21 L BUN/Creatinine Ratio 7.6 L Glucose 107 H Calcium 9.8 Urine Color Red Urine Clarity Cloudy Urine pH 7.0 Ur Specific Zoar 1.010 Urine Protein 500 H Urine Glucose (UA) Normal Urine Ketones Negative Urine Occult Blood 250 H Urine Nitrite Positive H Urine Bilirubin Negative Urine Urobilinogen Normal Ur Leukocyte Esterase 500 H Urine RBC > 100 SEEN Urine WBC 50-100 SEEN Ur Squamous Epith Cells 0 SEEN Urine Bacteria 4+ Urine Mucus 0 SEEN Discharge Plan Triage Chief Complaint: Syncope ED Provider: Ren Uriarte Dx/Rx/DC Orders Clinical Impression: Acute UTI, Syncope, Orthostasis, End-stage renal disease on hemodialysis Instructions: Urinary Tract Infections in Men, Causes of Syncope, ED Hypotension, Orthostatic Prescriptions: New cefdinir 300 mg capsule 300 mg PO Q12H Qty: 14 0RF Discontinued ciprofloxacin HCl [Cipro] 500 mg tablet 500 mg PO BID 10 Days Qty: 20 0RF No Action oseltamivir [Tamiflu] 30 mg capsule 30 mg PO UD 3 Days Qty: 3 0RF Rx Instructions: Take 1 after each dialysis for a total of 3 doses prednisone 20 mg tablet 20 mg PO DAILY Qty: 7 0RF midodrine 5 mg tablet 5 mg PO BID levothyroxine 88 mcg tablet 88 mcg PO DAILY nystatin 100,000 unit/gram cream 1 applic topical BID PRN (Reason: skin irritation) oxybutynin chloride 5 mg tablet 5 mg PO BID sevelamer carbonate 800 mg tablet 800 mg PO TIDCM allopurinol 100 mg tablet 100 mg PO DAILY simvastatin 20 mg tablet 20 mg PO QPM sertraline 50 mg tablet 50 mg PO DAILY Primary Care Provider: Ata Hernandez Referrals: Ata Hernandez MD [Primary Care Provider] - 3-5 Days Activity Restrictions/Additional Instructions: Your labs are stable urine with infection urine culture from 3 days positive forPseudomonas resistant to your Cipro. Stop your Cipro. You are given IV Rocephin. Take new antibiotic prescribed. He will like to have your home nursechange her Jamison catheter, if this changes soon as possible. If you develop anyworsening symptoms, return to the ED for reevaluation. Print Language: Honduran Disposition Disposition: Home, Self Care What to do if you have Problems For any increased pain, shortness of breath, bleeding, nausea or vomiting, chestpain, or any unexpected problems, contact your Primary Care Provider. Call [facility] ([phone]) or report to the closest Emergency Room. Call 911 if necessary. 08/16/242327 <Electronically signed by Ren Cali> Cosigner Signature (if applicable): CC: Dr. Ata Hernandez MD ~ Signed [facility] Work Phone: [phone] Discharge summary [facility] Medical Records Department [address] [place] [id number] Emergency Department Summary 08/16/24 MR#: [id number] Acct: [id number] Name: GENET BOOTH Rep #:[id number] : 1945 79 From: Ren Cali PCP: Dr. Ata Hernandez MD Status:REG ER Location: ED HPI History of Present Illness Chief Complaint: Syncope Informant: patient Narrative Narrative: Brought in by EMS from home for syncopal episode. Patient is returning from dialysis when he got out of the transport car being held by his caregiver on steps he felt lightheaded and went down. He was held by his caregiver. No injuries. No trouble drome with chest pains or shortness of breath. History oforthostasis EMS arrival blood pressures in the 70s. Reported 2 L fluid was removed that is typical. Dry weight is 278 pounds per patient. Denies cough. Denies recent vomiting or diarrhea. He is a chronic Jamison due to prostate cancer he states 2 L bag he makes nearly 2/3 of urine that he empties a day. Hewas seen this past Friday for UTI. He states he is on antibiotics. Denies fever chills or sweats. Patient ambulates with a rollator. [facility] Medical History Hypoxia SOB (shortness of breath) Influenza A Dialysis patient Kidney disease Hepatitis Former smoker Hypertension ESRD on hemodialysis AV fistula End-stage renal disease Hyperlipidemia History of recurrent UTIs Chronic indwelling Jamison catheter Urinary retention Prostate cancer Candidiasis, intertrigo Orthostatic hypotension Hypothyroidism Gout Obesity (BMI 30.0-34.9) Home Medications ?Medication ?Instructions ?Recorded ?Last Taken ?Type allopurinol 100 mg tablet 100 mg PO DAILY gout 5 07/14/24 History levothyroxine 88 mcg tablet 88 mcg PO DAILY thyroid 07/14/24 History midodrine 5 mg tablet 5 mg PO BID blood pressure 0 06/03/24 07/14/24 History nystatin 100,000 unit/gram topical 1 applic topical BI D PRN skin 06/03/24 Unknown History cream irritation oxybutynin chloride 5 mg tablet 5 mg PO BID bladder 07/14/24 History sertraline 50 mg tablet 50 mg PO DAILY mental health 06/03/24 07/14/24 History sevelamer carbonate 800 mg tablet 800 mg PO TIDCM bloo d pressure 06/03/24 07/14/24 History simvastatin 20 mg tablet 20 mg PO QPM cholesterol 07/2707/12/24 History oseltamivir 30 mg capsule (Tamiflu) 30 mg PO UD 3 days #3 caps 07/16/24 Unknown Rx prednisone 20 mg tablet 20 mg PO DAILY #7 tabs 07/16 Unknown Rx cefdinir 300 mg capsule 300 mg PO Q12H #14 caps 07/31 12/24 Unknown Rx Allergy/AdvReac Type Severity Reaction Status Date / Time iodine Allergy Intermediate Hives Verified 08/16/24 16:46 Family History Other Heart disease Hypertension Surgical History History of left hip hemiarthroplasty History of prostate surgery Social History household members: none Smoking Status: Former smoker alcohol intake: never substance use type: does not use additional social history: Ambulates with a wheeled walker at baseline ROS ROS ED Constitutional Constitutional ED: Denies chills, fever(s) or sweats ENT ENT ED: Denies sore throat Cardiovascular Cardiovascular: Reports other Details: Syncope ; Denies chest pain, leg edema, palpitations or racing heartbeat Respiratory/Chest Respiratory/Chest: Denies cough, dyspnea or dyspnea on exertion Gastrointestinal Gastrointestinal: Denies abdominal pain, diarrhea, nausea or vomiting Genitourinary Genitourinary ED: Reports hematuria; Denies dysuria or urinary frequency Musculoskeletal Musculoskeletal: Denies back pain, extremity pain or neck pain Integumentary Denies rash or wounds Neurologic Neurologic: Denies headache(s), paresthesias or weakness EXAM Physical Exam Const Vital Signs: 08/16/24 16:42 08/16/24 16:49 08/16/24 17:49 Temperature 98.3 F 98.0 F Temperature Source Oral Temporal Pulse Rate 100 84 Respiratory Rate 20 H 21 H Respiratory Pattern Normal Blood Pressure 115/56 L 115/60 Blood Pressure Mean 75 78 Pulse Ox 95 92 Oxygen Delivery Method Room Air Room Air 08/16/24 18:00 08/16/24 22:57 Temperature 97.9 F Temperature Source Temporal Pulse Rate 83 89 Respiratory Rate 23 H 20 H Respiratory Pattern Blood Pressure 124/70 H 134/84 H Blood Pressure Mean 88 100 Pulse Ox 90 97 Oxygen Delivery Method Room Air Positive well nourished and well developed General Appearance ED: well developed and NAD HEENT HEENT Narrative: Mild dry mucosal membranes. normocephalic and atraumatic Eyes General Eye ED: Yes normal appearance of both eyes Neck full ROM Chest Wall Chest: Negative for tenderness Resp normal respiratory effort and normal air movement Effort and Inspection: symmetric chest movement; Negative for respiratory distress Cardio regular rate, regular rhythm and no murmurs Peripheral Pulses: pulses 2+ throughout GI normal to inspection, nondistended, normoactive bowel sounds and non-tender Palpation: Negative for guarding or rebound tenderness present Narrative: Jamison catheter tubing yellow to bloody urine. Extremity normal to inspection General Extremety ED: Negative for edema or tenderness General Extremity: Negative for edema Neuro oriented x3, CN's II-XII intact bilaterally and no sensory deficits noted Sensorium / Orientation: awake and alert Skin no rashes or lesions noted and no wounds MDM MDM MDM Narrative Medical decision making narrative: Interventions / MDM: Differential diagnosis: Syncope, orthostasis, urinary tract infection, chronic Jamison, end-stage renal disease on hemodialysis Diagnosis considered but do not suspect: No clinical sepsis My EKG interpretation: Sinus rate of 83, no ST or T wave changes. PACs noted. QTc 455. Imaging independently reviewed and interpreted by myself: N/A External documents reviewed: Urine culture from 3 days ago with Pseudomonas resistant to Cipro. He was switched over from Keflex to Cipro on his visit. Test considered but not ordered:N/A ED course: Patient single episode EKG normal. Mild dry mucosal membranes. Gentle fluids given for dialysis history. Will check basic labs to recheck urine. EKG with no acute findings. Labs normal white count normal hemoglobin. Creatinine 2.96 with a potassium 4.1. History of dialysis. 2129: Urine noting nitrites and leukocytes. Reviewed from culture he days ago Pseudomonas resistantto Cipro that he was sent home with. Sensitive to cefepime. Will give IV Rocephin. Patient able to ambulate with his walker per nursing. Discussed with patient his Jamison catheter will be nidus for infection. With infection discussed exchange, however he declined stating that it canbe performed by his home nurse. Discussed skin does exchange sooner rather than later. He understands this. Prescription of cefdinir sent to his pharmacy. He will stop his Cipro. All questions were an swered. Re-evaluation: stable Disposition discussed with patient/family/significant other: Patient Case discussed with consulting clinician: N/A This note was generated with Pocketbook dictation software. It may contain incorrectwords, spelling, and punctuation that were not noted in checking the note beforesigning. Lab Data Attestation: I reviewed the patient's lab results. Labs: Laboratory Results - last 24 hr 08/16/24 08/16/24 18:15 21:10 WBC 9.6 RBC 4.06 L Hgb 11.9 L Hct 37.6 L MCV 92.6 MCH 29.3 MCHC 31.6 L RDW Std Deviation 56.8 H RDW Coeff of Filomena 16.8 H Plt Count 251 MPV 10.1 Immature Gran % (Auto) 0.800 Neut % (Auto) 77.1 H Lymph % (Auto) 10.2 L Burnet % (Auto) 9.8 Eos % (Auto) 1.5 Baso % (Auto) 0.6 Absolute Neuts (auto) 7.4 Absolute Lymphs (auto) 0.98 Nucleated RBC % 0 Sodium 139 Potassium 4.1 Chloride 96 L Carbon Dioxide 26.3 Anion Gap 16 H BUN 23 H Creatinine 2.96 H Estim Creat Clear Calc 25.11 L Est GFR (MDRD) Non-Af 21 L BUN/Creatinine Ratio 7.6 L Glucose 107 H Calcium 9.8 Urine Color Red Urine Clarity Cloudy Urine pH 7.0 Ur Specific Zoar 1.010 Urine Protein 500 H Urine Glucose (UA) Normal Urine Ketones Negative Urine Occult Blood 250 H Urine Nitrite Positive H Urine Bilirubin Negative Urine Urobilinogen Normal Ur Leukocyte Esterase 500 H Urine RBC > 100 SEEN Urine WBC 50-100 SEEN Ur Squamous Epith Cells 0 SEEN Urine Bacteria 4+ Urine Mucus 0 SEEN Discharge Plan Triage Chief Complaint: Syncope ED Provider: Ren Uriarte Dx/Rx/DC Orders Clinical Impression: Acute UTI, Syncope, Orthostasis, End-stage renal disease on hemodialysis Instructions: Urinary Tract Infections in Men, Causes of Syncope, ED Hypotension, Orthostatic Prescriptions: New cefdinir 300 mg capsule 300 mg PO Q12H Qty: 14 0RF Discontinued ciprofloxacin HCl [Cipro] 500 mg tablet 500 mg PO BID 10 Days Qty: 20 0RF No Action oseltamivir [Tamiflu] 30 mg capsule 30 mg PO UD 3 Days Qty: 3 0RF Rx Instructions: Take 1 after each dialysis for a total of 3 doses prednisone 20 mg tablet 20 mg PO DAILY Qty: 7 0RF midodrine 5 mg tablet 5 mg PO BID levothyroxine 88 mcg tablet 88 mcg PO DAILY nystatin 100,000 unit/gram cream 1 applic topical BID PRN (Reason: skin irritation) oxybutynin chloride 5 mg tablet 5 mg PO BID sevelamer carbonate 800 mg tablet 800 mg PO TIDCM allopurinol 100 mg tablet 100 mg PO DAILY simvastatin 20 mg tablet 20 mg PO QPM sertraline 50 mg tablet 50 mg PO DAILY Primary Care Provider: Ata Hernandez Referrals: Ata Hernandez MD [Primary Care Provider] - 3-5 Days Activity Restrictions/Additional Instructions: Your labs are stable urine with infection urine culture from 3 days positive forPseudomonas resistant to your Cipro. Stop your Cipro. You are given IV Rocephin. Take new antibiotic prescribed. He will like to have your home nursechange her Jamison catheter, if this changes soon as possible. If you develop anyworsening symptoms, return to the ED for reevaluation. Print Language: Honduran Disposition Disposition: Home, Self Care What to do if you have Problems For any increased pain, shortness of breath, bleeding, nausea or vomiting, chestpain, or any unexpected problems, contact your Primary Care Provider. Call [facility] ([phone]) or report tothe closest Emergency Room. Call 911 if necessary. 08/16/242327 Cosigner Signature (if applicable): CC: Dr. Ata Hernandez MD ~ Signed [facility]03-14-2025 Discharge summary [facility] Medical Records Department [address] [place] [address] Emergency Department Summary 08/13/24 MR#: [id number] Acct: [id number] Name: GENET BOOTH Rep #:[id number] : 1945 79 From: Rajat Suazo MD PCP: Dr. Ata Hernandez MD Status:[facility] ER Location: ED ADDENDUM by Dr. Rajat Suazo MD on 08/13/24 at 2325 EKG you shows a sinus rhythm rate of 91 no acute signs of ND or ischemia. 08/13/242324 Cosigner Signature (if applicable): cc: Dr. Ata Hernandez MD ~* Signed HPI History of Present Illness Chief Complaint: Complaint Informant: patient Onset/Context/Timing Onset: Days Context: Gradual Onset Timing: Continuous Current Severity: Mild Maximum Severity: Mild Narrative Narrative: 79-year-old male history of end-stage renal disease dialysis. Was dialyzed today full run. He was recently diagnosed with a UTI placed on antibiotic Keflex which she states has been taken 4 times a day but is not getting better also is having gross hematuria he has a chronic indwelling Jamison catheter. Patient states he is generally weak and not feeling well. He denies vomiting. He does have nausea and diarrhea. No melena. He was hospitalized about 2 weeksago. Prior similar symptoms: Yes Recent Illness/Hospitalization: Yes PFSH [facility] Medical History Hypoxia SOB (shortness of breath) Influenza A Dialysis patient Kidney disease Hepatitis Former smoker Hypertension ESRD on hemodialysis AV fistula End-stage renal disease Hyperlipidemia History of recurrent UTIs Chronic indwelling Jamison catheter Urinary retention Prostate cancer Candidiasis, intertrigo Orthostatic hypotension Hypothyroidism Gout Obesity (BMI 30.0-34.9) Home Medications ?Medication ?Instructions ?Recorded ?Last Taken ?Type allopurinol 100 mg tablet 100 mg PO DAILY gout 5 07/14/24 History levothyroxine 88 mcg tablet 88 mcg PO DAILY thyroid 07/14/24 History midodrine 5 mg tablet 5 mg PO BID blood pressure 0 06/03/24 07/14/24 History nystatin 100,000 unit/gram topical 1 applic topical BI D PRN skin 06/03/24 Unknown History cream irritation oxybutynin chloride 5 mg tablet 5 mg PO BID bladder 07/14/24 History sertraline 50 mg tablet 50 mg PO DAILY mental health 06/03/24 07/14/24 History sevelamer carbonate 800 mg tablet 800 mg PO TIDCM bloo d pressure 06/03/24 07/14/24 History simvastatin 20 mg tablet 20 mg PO QPM cholesterol 07/2707/12/24 History oseltamivir 30 mg capsule (Tamiflu) 30 mg PO UD 3 days #3 caps 07/16/24 Unknown Rx prednisone 20 mg tablet 20 mg PO DAILY #7 tabs 07/16 Unknown Rx Allergy/AdvReac Type Severity Reaction Status Date / Time iodine Allergy Intermediate Hives Verified 08/13/24 17:07 Family History Other Heart disease Hypertension Surgical History History of left hip hemiarthroplasty History of prostate surgery Social History household members: none Smoking Status: Former smoker alcohol intake: never substance use type: does not use additional social history: Ambulates with a wheeled walker at baseline ROS ROS ED ROS Narrative Generalized weakness. UTI. Gross hematuria. Constitutional Constitutional ED: Denies chills or fever(s) Eyes Eyes: Denies blurry vision ENT ENT ED: Denies ear pain Cardiovascular Cardiovascular: Denies chest pain Respiratory/Chest Respiratory/Chest: Denies cough or dyspnea Gastrointestinal Gastrointestinal: Reports diarrhea; Denies abdominal pain, constipation, melena or vomiting Genitourinary Genitourinary ED: Reports hematuria; Denies dysuria Musculoskeletal Musculoskeletal: Denies arthralgias or back pain Integumentary Denies abscess Neurologic Neurologic: Denies headache(s) Psychiatric Psychiatric: Denies anxiety Endocrine Endocrinology: Denies cold intolerance Hematologic/Lymphatic Hematologic/Lymphatic: Reports none Allergic/Immunologic Allergic/Immunologic ED: Denies mouth swelling or urticaria EXAM Physical Exam Narrative Exam Narrative: 79-year-old male sitting upright in bed. Vital signs stable afebrile. He does not look septic or toxic. He is in no distress. No family is present at this time. H EENT exam pupils round react light. Mytrex members. Neck nontender nolymphadenopathy. Lungs clear to auscultation bilaterally. Heart tachycardic 110 no murmur. Chest wall ribs nontender. Abdomen soft nontender. No peritoneal signs. No distention. Indwelling Jamison catheter. Grossly bloody urine. Moving all 4 extremities. Nontender no edema. Neurologically is awake alert. Answering questions following commands. Back nontender. Benign exam. Const Vital Signs: 08/13/24 17:07 08/13/24 20:12 08/13/24 21:00 Temperature 98.0 F 98.3 F 98.7 F Temperature Source Oral Oral Oral Pulse Rate 112 H 89 89 Respiratory Rate 18 16 19 H Blood Pressure 108/66 135/98 H 122/78 H Blood Pressure Mean 80 110 92 Pulse Ox 93 98 98 Oxygen Delivery Method Room Air Room Air Room Air 08/13/24 23:00 Temperature Temperature Source Pulse Rate 89 Respiratory Rate Blood Pressure 115/78 Blood Pressure Mean 90 Pulse Ox 93 Oxygen Delivery Method Positive well nourished, well developed and obese; Negative for cachectic, contractures or unkempt General Appearance ED: well developed; Negative for unkempt, cachectic, contractures, cyanotic, diaphoretic or pallor Nutritional Appearance: obese; Negative for cachectic HEENT Reports moist mucous membranes Negative for trauma or tenderness Eyes PERRL and EOMs intact bilaterally General Eye ED: Negative for pale conjunctiva or scleral icterus Neck no lymphadenopathy, supple and no JVD General: Negative for tenderness Chest Wall inspection of chest normal and palpation of chest normal Resp normal respiratory effort and clear to auscultation bilaterally Effort and Inspection: Negative for retractions Auscultation: Negative for rales, rhonchi, wheezes or diminished lung sounds Cardio regular rhythm, S1 normal heart sound, S2 normal heart sound and no murmurs; Negative for regular rate Rate: tachycardic GI normal to inspection, nondistended, normoactive bowel sounds, non-tender, non- distended and no masses Palpation: soft; Negative for tender, guarding or rebound tenderness present Back/Spine no CVA tenderness General Back: Negative for CVA tenderness Cervical Spine: Negative for cervical spine tenderness Thoracic Spine / Upper Back: Negative for thoracic spinal tenderness or paraspinal muscle tenderness Lumbar Spine / Lower Back: Negative for lumbar spinal tenderness Extremity normal to inspection General Extremety ED: Negative for edema or tenderness General Extremity: Negative for edema Neuro CN's II-XII intact bilaterally Sensorium / Orientation: alert; Negative for orientation impaired, lethargic or stuporous Motor Exam: strength 5/5 throughout Psych mental status grossly normal Appearance: Negative for unkempt Attitude: No agitated Mood & Affect: Negative for depressed or anxious Skin no rashes or lesions noted and no wounds General Skin Exam: Negative for jaundice or pallor Lesions: No lesion noted Trauma: Negative for abrasion Wounds: Negative for wounds noted MDM MDM MDM Narrative Medical decision making narrative: 79-year-old male with UTI reportedly not responding to outpatient antibiotic therapy. Generalized weakness. Screening labs to be obtained. He is a dialysis patient. Repeat exam patient is doing well at 11:15 PM. He and I went over his test results. He is comfortable being discharged home. Up to go home by ambulance because he did not have a ride. He has been on the Keflex a week. He does not feel like it is working. I checked his last urine culture the end of June itwas sensitive to Cipro. He will be placed on Cipro twice daily for 10 days. I did send a urine culture. He ate well follow-up with his physician this coming week. He knows to return if he isfeeling worse. He really does not need to beadmitted at this time by exam, vital signs or his labs. History & Record Review Discussion w/independent historian: Patient Additional record(s) reviewed:: Prior inpatient record, Prior outpatient record,Prior ED visit and Prior labs Lab Data Attestation: I reviewed the patient's lab results. Lab results narrative: Urinalysis shows 250 occult blood. No nitrates. Greater 100 red cells, 50-100 white cells 1+ bacteria, urine culture sent. This is consistent with a UTI. CBC shows a white count 8.1. H&H 10.8 and 35. Platelets 258. BMP shows a potassium of 5.2. Gap of 12. BUN and creatinine 18 and 2.79. Patient is a dialysis patient. Labs are consistent with his baseline. Labs: Laboratory Results - last 24 hr 08/13/24 08/13/24 18:39 20:00 WBC 8.1 RBC 3.71 L Hgb 10.8 L Hct 35.3 L MCV 95.1 H MCH 29.1 MCHC 30.6 L RDW Std Deviation 60.8 H RDW Coeff of Filomena 17.5 H Plt Count 258 MPV 10.1 Immature Gran % (Auto) 0.900 Neut % (Auto) 71.0 H Lymph % (Auto) 15.2 L Burnet % (Auto) 10.1 H Eos % (Auto) 2.2 Baso % (Auto) 0.6 Absolute Neuts (auto) 5.8 Absolute Lymphs (auto) 1.23 Nucleated RBC % 0 Sodium 140 Potassium 5.2 H Chloride 98 Carbon Dioxide 29.9 Anion Gap 12 BUN 18 Creatinine 2.79 H Estim Creat Clear Calc 26.62 L Est GFR (MDRD) Non-Af 22 L BUN/Creatinine Ratio 6.4 L Glucose 106 H Calcium 9.5 Urine Color Red Urine Clarity Cloudy Urine pH 8.0 Ur Specific Zoar 1.010 Urine Protein 100 H Urine Glucose (UA) Normal Urine Ketones Negative Urine Occult Blood 250 H Urine Nitrite Negative Urine Bilirubin Negative Urine Urobilinogen Normal Ur Leukocyte Esterase 500 H Urine RBC > 100 SEEN Urine WBC 50-100 SEEN Ur Squamous Epith Cells 0-5 SEEN Urine Bacteria 1+ Urine Mucus 0 SEEN Discharge Plan Triage Chief Complaint: Complaint ED Provider: Rajat Suazo Dx/Rx/DC Orders Prescriptions: No Action oseltamivir [Tamiflu] 30 mg capsule 30 mg PO UD 3 Days Qty: 3 0RF Rx Instructions: Take 1 after each dialysis for a total of 3 doses prednisone 20 mg tablet 20 mg PO DAILY Qty: 7 0RF midodrine 5 mg tablet 5 mg PO BID levothyroxine 88 mcg tablet 88 mcg PO DAILY nystatin 100,000 unit/gram cream 1 applic topical BID PRN (Reason: skin irritation) oxybutynin chloride 5 mg tablet 5 mg PO BID sevelamer carbonate 800 mg tablet 800 mg PO TIDCM allopurinol 100 mg tablet 100 mg PO DAILY simvastatin 20 mg tablet 20 mg PO QPM sertraline 50 mg tablet 50 mg PO DAILY Primary Care Provider: Ata Hernandez Referrals: Ata Hernandez MD [Primary Care Provider] - Print Language: Honduran What to do if you have Problems For any increased pain, shortness of breath, bleeding, nausea or vomiting, chestpain, or any unexpected problems, contact your Primary Care Provider. Call [facility] ([phone]) or report tothe closest Emergency Room. Call 911 if necessary. 08/13/242320 Cosigner Signature (if applicable): CC: Dr. Ata Hernandez MD ~ Signed [facility]03-14-2025 Discharge summary Author Rajat Suazo [facility] Note Date/Time August 13, 2024 11: 25pm [facility] Medical Records Department [address] [place] [address] Emergency Department Summary 08/13/24 MR#: [id number] Acct: [id number] Name: GENET BOOTH Rep #:[id number] : 1945 79 From: Rajat Suazo MD PCP: Dr. Ata Hernandez MD Status:[facility] ER Location: ED ADDENDUM by Dr. Rajat Suazo MD on 08/13/24 at 2325 EKG you shows a sinus rhythm rate of 91 no acute signs of ND or ischemia. 08/13/242324<Electronically signed by Rajat Suazo MD> Cosigner Signature (if applicable): cc: Dr. Ata Hernandez MD ~* Signed HPI History of Present Illness Chief Complaint: Complaint Informant: patient Onset/Context/Timing Onset: Days Context: Gradual Onset Timing: Continuous Current Severity: Mild Maximum Severity: Mild Narrative Narrative: 79-year-old male history of end-stage renal disease dialysis. Was dialyzed today full run. He was recently diagnosed with a UTI placed on antibiotic Keflex which she states has been taken 4 times a day but is not getting better also is having gross hematuria he has a chronic indwelling Jamison catheter. Patient states he is generally weak and not feeling well. He denies vomiting. He does have nausea and diarrhea. No melena. He was hospitalized about 2 weeksago. Prior similar symptoms: Yes Recent Illness/Hospitalization: Yes PFSH PFSH Medical History Hypoxia SOB (shortness of breath) Influenza A Dialysis patient Kidney disease Hepatitis Former smoker Hypertension ESRD on hemodialysis AV fistula End-stage renal disease Hyperlipidemia History of recurrent UTIs Chronic indwelling Jamison catheter Urinary retention Prostate cancer Candidiasis, intertrigo Orthostatic hypotension Hypothyroidism Gout Obesity (BMI 30.0-34.9) Home Medications ?Medication ?Instructions ?Recorded ?Last Taken ?Type allopurinol 100 mg tablet 100 mg PO DAILY gout 5 07/14/24 History levothyroxine 88 mcg tablet 88 mcg PO DAILY thyroid 07/14/24 History midodrine 5 mg tablet 5 mg PO BID blood pressure 0 06/03/24 07/14/24 History nystatin 100,000 unit/gram topical 1 applic topical BI D PRN skin 06/03/24 Unknown History cream irritation oxybutynin chloride 5 mg tablet 5 mg PO BID bladder 07/14/24 History sertraline 50 mg tablet 50 mg PO DAILY mental health 06/03/24 07/14/24 History sevelamer carbonate 800 mg tablet 800 mg PO TIDCM bloo d pressure 06/03/24 07/14/24 History simvastatin 20 mg tablet 20 mg PO QPM cholesterol 07/2707/12/24 History oseltamivir 30 mg capsule (Tamiflu) 30 mg PO UD 3 days #3 caps 07/16/24 Unknown Rx prednisone 20 mg tablet 20 mg PO DAILY #7 tabs 07/16 Unknown Rx Allergy/AdvReac Type Severity Reaction Status Date / Time iodine Allergy Intermediate Hives Verified 08/13/24 17:07 Family History Other Heart disease Hypertension Surgical History History of left hip hemiarthroplasty History of prostate surgery Social History household members: none Smoking Status: Former smoker alcohol intake: never substance use type: does not use additional social history: Ambulates with a wheeled walker at baseline ROS ROS ED ROS Narrative Generalized weakness. UTI. Gross hematuria. Constitutional Constitutional ED: Denies chills or fever(s) Eyes Eyes: Denies blurry vision ENT ENT ED: Denies ear pain Cardiovascular Cardiovascular: Denies chest pain Respiratory/Chest Respiratory/Chest: Denies cough or dyspnea Gastrointestinal Gastrointestinal: Reports diarrhea; Denies abdominal pain, constipation, melena or vomiting Genitourinary Genitourinary ED: Reports hematuria; Denies dysuria Musculoskeletal Musculoskeletal: Denies arthralgias or back pain Integumentary Denies abscess Neurologic Neurologic: Denies headache(s) Psychiatric Psychiatric: Denies anxiety Endocrine Endocrinology: Denies cold intolerance Hematologic/Lymphatic Hematologic/Lymphatic: Reports none Allergic/Immunologic Allergic/Immunologic ED: Denies mouth swelling or urticaria EXAM Physical Exam Narrative Exam Narrative: 79-year-old male sitting upright in bed. Vital signs stable afebrile. He does not look septic or toxic. He is in no distress. No family is present at this time. H EENT exam pupils round react light. Mytrex members. Neck nontender nolymphadenopathy. Lungs clear to auscultation bilaterally. Heart tachycardic 110 no murmur. Chest wall ribs nontender. Abdomen soft nontender. No peritoneal signs. No distention. Indwelling Jamison catheter. Grossly bloody urine. Moving all 4 extremities. Nontender no edema. Neurologically is awake alert. Answering questions following commands. Back nontender. Benign exam. Const Vital Signs: 08/13/24 17:07 08/13/24 20:12 08/13/24 21:00 Temperature 98.0 F 98.3 F 98.7 F Temperature Source Oral Oral Oral Pulse Rate 112 H 89 89 Respiratory Rate 18 16 19 H Blood Pressure 108/66 135/98 H 122/78 H Blood Pressure Mean 80 110 92 Pulse Ox 93 98 98 Oxygen Delivery Method Room Air Room Air Room Air 08/13/24 23:00 Temperature Temperature Source Pulse Rate 89 Respiratory Rate Blood Pressure 115/78 Blood Pressure Mean 90 Pulse Ox 93 Oxygen Delivery Method Positive well nourished, well developed and obese; Negative for cachectic, contractures or unkempt General Appearance ED: well developed; Negative for unkempt, cachectic, contractures, cyanotic, diaphoretic or pallor Nutritional Appearance: obese; Negative for cachectic HEENT Reports moist mucous membranes Negative for trauma or tenderness Eyes PERRL and EOMs intact bilaterally General Eye ED: Negative for pale conjunctiva or scleral icterus Neck no lymphadenopathy, supple and no JVD General: Negative for tenderness Chest Wall inspection of chest normal and palpation of chest normal Resp normal respiratory effort and clear to auscultation bilaterally Effort and Inspection: Negative for retractions Auscultation: Negative for rales, rhonchi, wheezes or diminished lung sounds Cardio regular rhythm, S1 normal heart sound, S2 normal heart sound and no murmurs; Negative for regular rate Rate: tachycardic GI normal to inspection, nondistended, normoactive bowel sounds, non-tender, non-distended and no masses Palpation: soft; Negative for tender, guarding or rebound tenderness present Back/Spine no CVA tenderness General Back: Negative for CVA tenderness Cervical Spine: Negative for cervical spine tenderness Thoracic Spine / Upper Back: Negative for thoracic spinal tenderness or paraspinal muscle tenderness Lumbar Spine / Lower Back: Negative for lumbar spinal tenderness Extremity normal to inspection General Extremety ED: Negative for edema or tenderness General Extremity: Negative for edema Neuro CN's II-XII intact bilaterally Sensorium / Orientation: alert; Negative for orientation impaired, lethargic or stuporous Motor Exam: strength 5/5 throughout Psych mental status grossly normal Appearance: Negative for unkempt Attitude: No agitated Mood & Affect: Negative for depressed or anxious Skin no rashes or lesions noted and no wounds General Skin Exam: Negative for jaundice or pallor Lesions: No lesion noted Trauma: Negative for abrasion Wounds: Negative for wounds noted MDM MDM MDM Narrative Medical decision making narrative: 79-year-old male with UTI reportedly not responding to outpatient antibiotic therapy. Generalized weakness. Screening labs to be obtained. He is a dialysis patient. Repeat exam patient is doing well at 11:15 PM. He and I went over his test results. He is comfortable being discharged home. Up to go home by ambulance because he did not have a ride. He has been on the flex a week. He does not feel like it is working. I checked his last urine culture the end of June itwas sensitive to Cipro. He will be placed on Cipro twice daily for 10 days. I did send a urine culture. He ate well follow-up with his physician this coming week. He knows to return if he is feeling worse. He really does not need to beadmitted at this time by exam, vital signs or his labs. History & Record Review Discussion w/independent historian: Patient Additional record(s) reviewed:: Prior inpatient record, Prior outpatient record,Prior ED visit and Prior labs Lab Data Attestation: I reviewed the patient's lab results. Lab results narrative: Urinalysis shows 250 occult blood. No nitrates. Greater 100 red cells, 50-100 white cells 1+ bacteria, urine culture sent. This is consistent with a UTI. CBC shows a white count 8.1. H&H 10.8 and 35. Platelets 258. BMP shows a potassium of 5.2. Gap of 12. BUN and creatinine 18 and 2.79. Patient is a dialysis patient. Labs are consistent with his baseline. Labs: Laboratory Results - last 24 hr 08/13/24 08/13/24 18:39 20:00 WBC 8.1 RBC 3.71 L Hgb 10.8 L Hct 35.3 L MCV 95.1 H MCH 29.1 MCHC 30.6 L RDW Std Deviation 60.8 H RDW Coeff of Filomena 17.5 H Plt Count 258 MPV 10.1 Immature Gran % (Auto) 0.900 Neut % (Auto) 71.0 H Lymph % (Auto) 15.2 L Burnet % (Auto) 10.1 H Eos % (Auto) 2.2 Baso % (Auto) 0.6 Absolute Neuts (auto) 5.8 Absolute Lymphs (auto) 1.23 Nucleated RBC % 0 Sodium 140 Potassium 5.2 H Chloride 98 Carbon Dioxide 29.9 Anion Gap 12 BUN 18 Creatinine 2.79 H Estim Creat Clear Calc 26.62 L Est GFR (MDRD) Non-Af 22 L BUN/Creatinine Ratio 6.4 L Glucose 106 H Calcium 9.5 Urine Color Red Urine Clarity Cloudy Urine pH 8.0 Ur Specific Zoar 1.010 Urine Protein 100 H Urine Glucose (UA) Normal Urine Ketones Negative Urine Occult Blood 250 H Urine Nitrite Negative Urine Bilirubin Negative Urine Urobilinogen Normal Ur Leukocyte Esterase 500 H Urine RBC > 100 SEEN Urine WBC 50-100 SEEN Ur Squamous Epith Cells 0-5 SEEN Urine Bacteria 1+ Urine Mucus 0 SEEN Discharge Plan Triage Chief Complaint: Complaint ED Provider: Rajat Suazo Dx/Rx/DC Orders Prescriptions: No Action oseltamivir [Tamiflu] 30 mg capsule 30 mg PO UD 3 Days Qty: 3 0RF Rx Instructions: Take 1 after each dialysis for a total of 3 doses prednisone 20 mg tablet 20 mg PO DAILY Qty: 7 0RF midodrine 5 mg tablet 5 mg PO BID levothyroxine 88 mcg tablet 88 mcg PO DAILY nystatin 100,000 unit/gram cream 1 applic topical BID PRN (Reason: skin irritation) oxybutynin chloride 5 mg tablet 5 mg PO BID sevelamer carbonate 800 mg tablet 800 mg PO TIDCM allopurinol 100 mg tablet 100 mg PO DAILY simvastatin 20 mg tablet 20 mg PO QPM sertraline 50 mg tablet 50 mg PO DAILY Primary Care Provider: Ata Hernandez Referrals: Ata Hernandez MD [Primary Care Provider] - Print Language: Honduran What to do if you have Problems For any increased pain, shortness of breath, bleeding, nausea or vomiting, chestpain, or any unexpected problems, contact your Primary Care Provider. Call [facility] ([phone]) or report to the closest Emergency Room. Call 911 if necessary. 08/13/242320 <Electronically signed by Rajat Suazo MD> Cosigner Signature (if applicable): CC: Dr. Ata Hernandez MD ~ Signed [facility] Work Phone: 1(129) 979-986702-25-2025 History of Present illness Narrative* Ata Hernandez DO - 07/27/2024 1:45 PM EST Subjective History of Present Illness Chief Complaint Patient presents with Thyroid Problem Hyperlipidemia Gout Here today for a follow up on their hypo thyroid. Currently taking Levothyroxine 88 mcg as directed. Last labs were done on 12/2022 . No complaints of increased fatigue, hair loss, unexplained weight loss, or peeling nails. Here today for gout, currently taking Allopurinol 100 mg with effectiveness. Last gout attack was over 1 1/2 yrs ago . Currently having issues NO Last labs done NOT SURE Here for follow up of high cholesterol. Patient takes Simvastatin 20 mg at night. Tolerates well, no myalgias. Does NOT smoke. Recently was in [facility] due to having RSV, Pneumonia, bladder infection and Influenza A. He was in the hospital 3 times with in the last Month or so. So today he is tired due to not sleeping last night. Breathing is doing well, he is getting dialysis 3 times a week now at [facility]. He does have a folly eliseo and this has been in for 2 yrs now. No complaints Objective Review of Systems Constitutional: Negative for activity change, chills and fever. HENT: Negative for dental problem, ear pain, mouth sores, sinus pain and trouble swallowing. Eyes: Negative for discharge and visual disturbance. Respiratory: Negative for chest tightness, shortness of breath and wheezing. Cardiovascular: Negative for chest pain, palpitations and leg swelling. Gastrointestinal: Negative for abdominal pain and nausea. Endocrine: Negative for polydipsia, polyphagia and polyuria. Genitourinary: Negative for difficulty urinating, flank pain, frequency and urgency. Musculoskeletal: Negative for arthralgias, back pain, myalgias and neck pain. Skin: Negative for color change and rash. Neurological: Negative for dizziness, syncope and light-headedness. Psychiatric/Behavioral: Negative for decreased concentration and sleep disturbance. All other systems reviewed and are negative. Vitals: Blood pressure 102/50, pulse 117, temperature 98.6 F (37 C), temperature source Temporal, height 1.803 m (5' 11), weight 103 kg (227 lb), SpO2 92%. Physical Exam Vitals and nursing note reviewed. HENT: Head: Normocephalic. Cardiovascular: Rate and Rhythm: Normal rate and regular rhythm. Heart sounds: No murmur heard. Pulmonary: Effort: Pulmonary effort is normal. Breath sounds: Normal breath sounds. Abdominal: General: Bowel sounds are normal. Palpations: Abdomen is soft. Tenderness: There is no abdominal tenderness. Musculoskeletal: General: No swelling. Assessment and Plan ICD-10-CM 1. Acquired hypothyroidism E03.9 2. Mixed hyperlipidemia E78.2 3. Chronic kidney disease (CKD), stage V N18.5 4. Elevated parathyroid hormone R79.89 Begin calcitriol 0.25 mg once daily. Discussed results of blood work from 07-19-24: B12, BUN, ALT, et al. Get blood work done in 3 months (). If lab work or other testing was ordered at your visit, check your My Chart account for test results or call the office to get results or if you have questions. SAMANTHA Brito, was the medical lab scientist for today's note. I have performed all essential components of the history and physical exam, confirmed the diagnosis and developed a plan of care at this visit. I have reviewed the note at the visit and have added edits as appropriate to my evaluation andplan of care. [facility] Instructions* Patient Instructions* Sanchez Ying - 07/27/2024 1:45 PM EST Assessment and Plan ICD-10-CM 1. Acquired hypothyroidism E03.9 2. Mixed hyperlipidemia E78.2 3. Chronic kidney disease (CKD), stage V N18.5 4. Elevated parathyroid hormone R79.89 Begin calcitriol 0.25 mg once daily. Discussed results of blood work from 07-19-24: B12, BUN, ALT, et al. Get blood work done in 3 months (). If lab work or other testing was ordered at your visit, check your My Chart account for test results or call the office to get results or if you have questions. SAMANTHA Brito, was the medical lab scientist for today's note. I have performed all essential components of the history and physical exam, confirmed the diagnosis and developed a plan of care at this visit. I have reviewed the note at the visit and have added edits as appropriate to my evaluation andplan of care. documented in this [facility]02-14-2025 [facility]02-12-2025 Evaluation note* Diagnosis Onset Date Resolution Status Admit Date End-stage renal disease acute F ebruary 2024 1:57pm Hypoxia inactive July 14, 2024 1:57pm Influenza A inactive July 1:57pm SOB (shortness of breath) inactive July 14, 2024 1:57pm [facility] Work Phone: 1(651) 717-904501-30-2025 [facility]01-05-2025 [facility]01-04-2025 Evaluation note* Diagnosis Onset Date Resolution Status Admit Date End-stage renal disease acute J anuary 2024 2:36pm Cough resolved June 05 2:36pm Generalized weakness resolved 2024 2:36pm RSV (acute bronchiolitis due to respiratory syncytial virus) resolved June 05 2:36pm Shortness of breath resolved ry 2024 2:36pm Abnormal finding on urinalysis acute June 28, 2024 1:32pm Generalized weakness acute [email or web address] 1:32pm Diarrhea resolved June 28, 2024 1:32pm Enterocolitis resolved June 1:32pm ESRD on hemodialysis inactive [email or web address] 1:32pm End-stage renal disease acute F ebruary 2024 1:57pm Hypoxia inactive July 14, 2024 1:57pm Influenza A inactive July 1:57pm SOB (shortness of breath) inactive July 14, 2024 1:57pm [facility] Work Phone: 1(585) 833-345012-10-2024 Emergency department Note* Shey White PA-C - 05/11/2024 6:47 PM EST Patient is a 79-year-old male who presents to the emergency room with a chief complaint of Jamison catheter issues. Patient states that he has a chronic indwelling Jamison catheter, has a history of prostate cancer and has had a Jamison catheter for years. He states that he has scheduled changes of his Jamison catheter which she had 1 today. He states that every time he has a Jamison catheter placed he is in extreme pain and today he states that his pain was worse than normal. He reports that he has had some hematuria. He states that his Jamison catheter is draining. He denies any fever or chills. No nausea or vomiting. He has pain in his penis and his suprapubic area. No testicular pain. No chest painor shortness of breath. Review of Systems Constitutional: Negative for chills and fever. HENT: Negative for ear pain and sore throat. Eyes: Negative for pain and visual disturbance. Respiratory: Negative for cough and shortness of breath. Cardiovascular: Negative for chest pain and palpitations. Gastrointestinal: Negative for abdominal pain and vomiting. Genitourinary: Positive for penile pain. Negative for dysuria and hematuria. Musculoskeletal: Negative for arthralgias and back pain. Skin: Negative for color change and rash. Neurological: Negative for seizures and syncope. All other systems reviewed and are negative. Physical Exam Vitals and nursing note reviewed. Constitutional: General: He is not in acute distress. Appearance: He is well-developed. He is not ill-appearing. HENT: Head: Normocephalic and atraumatic. Eyes: Extraocular Movements: Extraocular movements intact. Conjunctiva/sclera: Conjunctivae normal. Cardiovascular: Rate and Rhythm: Normal rate and regular rhythm. Heart sounds: No murmur heard. Pulmonary: Effort: Pulmonary effort is normal. No respiratory distress. Breath sounds: Normal breath sounds. No stridor. No wheezing or rhonchi. Abdominal: General: There is no distension. Palpations: Abdomen is soft. There is no mass. Tenderness: There is no abdominal tenderness. There is no guarding or rebound. Hernia: No hernia is present. Musculoskeletal: General: No swelling. Cervical back: Normal range of motion and neck supple. No rigidity. Skin: General: Skin is warm and dry. Capillary Refill: Capillary refill takes less than 2 seconds. Neurological: General: No focal deficit present. Mental Status: He is alert and oriented to person, place, and time. Psychiatric: Mood and Affect: Mood normal. Labs Reviewed CBC WITH AUTO DIFFERENTIAL - Abnormal Result Value WBC 8.2 nRBC 0.0 RBC 4.19 (*) Hemoglobin 12.7 (*) Hematocrit 40.4 (*) MCV 96 MCH 30.3 MCHC 31.4 (*) RDW 15.1 (*) Platelets 180 Neutrophils % 71.1 Immature Granulocytes %, Automated 0.2 Lymphocytes % 18.2 Monocytes % 7.5 Eosinophils % 2.1 Basophils % 0.9 Neutrophils Absolute 5.84 (*) Immature Granulocytes Absolute, Automated 0.02 Lymphocytes Absolute 1.50 Monocytes Absolute 0.62 Eosinophils Absolute 0.17 Basophils Absolute 0.07 BASIC METABOLIC PANEL - Abnormal Glucose 96 Sodium 139 Potassium 4.6 Chloride 103 Bicarbonate 25 Anion Gap 16 Urea Nitrogen 49 (*) Creatinine 4.77 (*) eGFR 12 (*) Calcium 8.6 URINALYSIS WITH REFLEX CULTURE AND MICROSCOPIC - Abnormal Color, Urine Brown (*) Appearance, Urine Ex.Turbid (*) Specific Zoar, Urine 1.016 pH, Urine 8.0 Protein, Urine 600 (3+) (*) Glucose, Urine Normal Blood, Urine 1.0 (3+) (*) Ketones, Urine NEGATIVE Bilirubin, Urine NEGATIVE Urobilinogen, Urine Normal Nitrite, Urine NEGATIVE Leukocyte Esterase, Urine 250 Doris/ L (*) MICROSCOPIC ONLY, URINE - Abnormal WBC, Urine >50 (*) RBC, Urine >20 (*) Bacteria, Urine 1+ (*) LIPASE - Normal Lipase 62 Narrative: Venipuncture immediately after or during the administration of Metamizole may lead to falsely low results. Testing should be performed immediately prior to Metamizole dosing. HEPATIC FUNCTION PANEL - Normal Albumin 3.9 Bilirubin, Total 0.5 Bilirubin, Direct 0.1 Alkaline Phosphatase 65 ALT 10 AST 12 Total Protein 6.8 LACTATE - Normal Lactate 0.8 Narrative: Venipuncture immediately after or during the administration of Metamizole may lead to falsely low results. Testing should be performed immediately prior to Metamizole dosing. BLOOD CULTURE BLOOD CULTURE URINE CULTURE URINALYSIS WITH REFLEX CULTURE AND MICROSCOPIC Narrative: The following orders were created for panel order Urinalysis with Reflex Culture and Microscopic. Procedure Abnormality Status --------- ------ Urinalysis with Reflex C...[[id number]] Abnormal Final result Extra Urine Khan Tube[[id number]] In process Please view results for these tests on the individual orders. EXTRA URINE KHAN TUBE CT abdomen pelvis wo IV contrast Final Result Procedures Medical Decision Making Patient is a 79-year-old male who presents to the emergency room with a concern for a Jamison catheter issue. Patient reports that he had his Jamison catheter changed today, reported pain during this andalso hematuria. Patient has had a chronic indwelling Jamison catheter. He had a right sided double-J ureteral stent placed by urology recently. His right sided hydronephrosis has resolved. He has moderate left hydroureteronephrosis with left nephrolithiasis and 3 mm calcification adjacent to the leftUVJ that may represent a phlebolith versus a distal ureteral calculus. Patient is afebrile and nontoxic-appearing. His urine does look infected. His lactic is normal and no leukocytosis. I discussed the CT scan findings with urologist, Dr. Bah who feels that patient can be seen in office this week. The patient will be discharged home on oral antibiotics with recommended return for any new or worsening symptoms and plan follow-up with urology. Differential diagnosis includes but not limited to urinary tract infection, ureteral catheter malfunction, Pyelonephritis, sepsis Amount and/or Complexity of Data Reviewed Labs: ordered. Decision-making details documented in ED Course. Radiology: ordered. Decision-making details documented in ED Course. Discussion of management or test interpretation with external provider(s): Discussed with urologist, Dr. Bah Risk Prescription drug management. Diagnoses as of 05/11/242226 Jamison catheter problem, initial encounter ([facility]) Urinary tract infection with hematuria, site unspecified Hydroureteronephrosis Left ureteral stone Shey White PA-C 05/11/242227 [facility] Work Phone: 1(542) 520-205712-10-2024 Physician Emergency department Note* Shey White PA-C - 05/11/2024 6:47 PM EST Patient is a 79-year-old male who presents to the emergency room with a chief complaint of Jamison catheter issues. Patient states that he has a chronic indwelling Jamison catheter, has a history of prostate cancer and has had a Jamison catheter for years. He states that he has scheduled changes of his Jamison catheter which she had 1 today. He states that every time he has a Jamison catheter placed he is in extreme pain and today he states that his pain was worse than normal. He reports that he has had some hematuria. He states that his Jamison catheter is draining. He denies any fever or chills. No nausea or vomiting. He has pain in his penis and his suprapubic area. No testicular pain. No chest painor shortness of breath. Review of Systems Constitutional: Negative for chills and fever. HENT: Negative for ear pain and sore throat. Eyes: Negative for pain and visual disturbance. Respiratory: Negative for cough and shortness of breath. Cardiovascular: Negative for chest pain and palpitations. Gastrointestinal: Negative for abdominal pain and vomiting. Genitourinary: Positive for penile pain. Negative for dysuria and hematuria. Musculoskeletal: Negative for arthralgias and back pain. Skin: Negative for color change and rash. Neurological: Negative for seizures and syncope. All other systems reviewed and are negative. Physical Exam Vitals and nursing note reviewed. Constitutional: General: He is not in acute distress. Appearance: He is well-developed. He is not ill-appearing. HENT: Head: Normocephalic and atraumatic. Eyes: Extraocular Movements: Extraocular movements intact. Conjunctiva/sclera: Conjunctivae normal. Cardiovascular: Rate and Rhythm: Normal rate and regular rhythm. Heart sounds: No murmur heard. Pulmonary: Effort: Pulmonary effort is normal. No respiratory distress. Breath sounds: Normal breath sounds. No stridor. No wheezing or rhonchi. Abdominal: General: There is no distension. Palpations: Abdomen is soft. There is no mass. Tenderness: There is no abdominal tenderness. There is no guarding or rebound. Hernia: No hernia is present. Musculoskeletal: General: No swelling. Cervical back: Normal range of motion and neck supple. No rigidity. Skin: General: Skin is warm and dry. Capillary Refill: Capillary refill takes less than 2 seconds. Neurological: General: No focal deficit present. Mental Status: He is alert and oriented to person, place, and time. Psychiatric: Mood and Affect: Mood normal. Labs Reviewed CBC WITH AUTO DIFFERENTIAL - Abnormal Result Value WBC 8.2 nRBC 0.0 RBC 4.19 (*) Hemoglobin 12.7 (*) Hematocrit 40.4 (*) MCV 96 MCH 30.3 MCHC 31.4 (*) RDW 15.1 (*) Platelets 180 Neutrophils % 71.1 Immature Granulocytes %, Automated 0.2 Lymphocytes % 18.2 Monocytes % 7.5 Eosinophils % 2.1 Basophils % 0.9 Neutrophils Absolute 5.84 (*) Immature Granulocytes Absolute, Automated 0.02 Lymphocytes Absolute 1.50 Monocytes Absolute 0.62 Eosinophils Absolute 0.17 Basophils Absolute 0.07 BASIC METABOLIC PANEL - Abnormal Glucose 96 Sodium 139 Potassium 4.6 Chloride 103 Bicarbonate 25 Anion Gap 16 Urea Nitrogen 49 (*) Creatinine 4.77 (*) eGFR 12 (*) Calcium 8.6 URINALYSIS WITH REFLEX CULTURE AND MICROSCOPIC - Abnormal Color, Urine Brown (*) Appearance, Urine Ex.Turbid (*) Specific [place], Urine 1.016 pH, Urine 8.0 Protein, Urine 600 (3+) (*) Glucose, Urine Normal Blood, Urine 1.0 (3+) (*) Ketones, Urine NEGATIVE Bilirubin, Urine NEGATIVE Urobilinogen, Urine Normal Nitrite, Urine NEGATIVE Leukocyte Esterase, Urine 250 Doris/ L (*) MICROSCOPIC ONLY, URINE - Abnormal WBC, Urine >50 (*) RBC, Urine >20 (*) Bacteria, Urine 1+ (*) LIPASE - Normal Lipase 62 Narrative: Venipuncture immediately after or during the administration of Metamizole may lead to falsely low results. Testing should be performed immediately prior to Metamizole dosing. HEPATIC FUNCTION PANEL - Normal Albumin 3.9 Bilirubin, Total 0.5 Bilirubin, Direct 0.1 Alkaline Phosphatase 65 ALT 10 AST 12 Total Protein 6.8 LACTATE - Normal Lactate 0.8 Narrative: Venipuncture immediately after or during the administration of Metamizole may lead to falsely low results. Testing should be performed immediately prior to Metamizole dosing. BLOOD CULTURE BLOOD CULTURE URINE CULTURE URINALYSIS WITH REFLEX CULTURE AND MICROSCOPIC Narrative: The following orders were created for panel order Urinalysis with Reflex Culture and Microscopic. Procedure Abnormality Status --------- ------ Urinalysis with Reflex C...[[id number]] Abnormal Final result Extra Urine Khan Tube[[id number]] In process Please view results for these tests on the individual orders. EXTRA URINE KHAN TUBE CT abdomen pelvis wo IV contrast Final Result Procedures Medical Decision Making Patient is a 79-year-old male who presents to the emergency room with a concern for a Jamison catheter issue. Patient reports that he had his Jamison catheter changed today, reported pain during this andalso hematuria. Patient has had a chronic indwelling Jamison catheter. He had a right sided double-J ureteral stent placed by urology recently. His right sided hydronephrosis has resolved. He has moderate left hydroureteronephrosis with left nephrolithiasis and 3 mm calcification adjacent to the leftUVJ that may represent a phlebolith versus a distal ureteral calculus. Patient is afebrile and nontoxic-appearing. His urine does look infected. His lactic is normal and no leukocytosis. I discussed the CT scan findings with urologist, Dr. Bah who feels that patient can be seen in office this week. The patient will be discharged home on oral antibiotics with recommended return for any new or worsening symptoms and plan follow-up with urology. Differential diagnosis includes but not limited to urinary tract infection, ureteral catheter malfunction, Pyelonephritis, sepsis Amount and/or Complexity of Data Reviewed Labs: ordered. Decision-making details documented in ED Course. Radiology: ordered. Decision-making details documented in ED Course. Discussion of management or test interpretation with external provider(s): Discussed with urologist, Dr. Bah Risk Prescription drug management. Diagnoses as of 05/11/242226 Jamison catheter problem, initial encounter ([facility]) Urinary tract infection with hematuria, site unspecified Hydroureteronephrosis Left ureteral stone Shey White PA-C 05/11/242227 [facility] Work Phone: 1(871) 649-253111-26-2024 History of Present illness Narrative* Ata Hernandez, DO - 04/27/2024 1:45 PM EST Subjective History of Present Illness Chief Complaint Patient presents with Hip Pain C/o intermittent left hip pain. Had a left hip hemiarthroplasty on 04-01-24. Says the hip mainly hurts when he is up walking. Laying down usually relieves the discomfort. Chronic Kidney Disease Here for a follow up. He currently has a jamison catheter and does 3 days a week. He sees Dr. Bah. Objective Review of Systems Constitutional: Negative for activity change, chills and fever. HENT: Negative for dental problem, ear pain, mouth sores, sinus pain and trouble swallowing. Eyes: Negative for discharge and visual disturbance. Respiratory: Negative for chest tightness, shortness of breath and wheezing. Cardiovascular: Negative for chest pain, palpitations and leg swelling. Gastrointestinal: Negative for abdominal pain and nausea. Endocrine: Negative for polydipsia, polyphagia and polyuria. Genitourinary: Negative for difficulty urinating, flank pain, frequency and urgency. Musculoskeletal: Negative for arthralgias, back pain, myalgias and neck pain. Skin: Negative for color change and rash. Neurological: Negative for dizziness, syncope and light-headedness. Psychiatric/Behavioral: Negative for decreased concentration and sleep disturbance. All other systems reviewed and are negative. Vitals: Blood pressure 118/64, pulse 108, temperature 97 F (36.1 C), resp. rate 16, height 1.803 m (5' 11), SpO2 96%. Physical Exam Vitals and nursing note reviewed. HENT: Head: Normocephalic. Cardiovascular: Rate and Rhythm: Normal rate and regular rhythm. Heart sounds: No murmur heard. Pulmonary: Effort: Pulmonary effort is normal. Breath sounds: Normal breath sounds. Abdominal: General: Bowel sounds are normal. Palpations: Abdomen is soft. Tenderness: There is no abdominal tenderness. Musculoskeletal: General: No swelling. Assessment and Plan ICD-10-CM 1. Chronic kidney disease (CKD), stage V N18.5 2. Arthralgia of left hip M25.552 3. Acquired hypothyroidism E03.9 Obtain blood work and urinalysis. If lab work or other testing was ordered at your visit, check your My Chart account for test results or call the office to get results or if you have questions. SAMANTHA Brito, was the medical lab scientist for today's note. I have performed all essential components of the history and physical exam, confirmed the diagnosis and developed a plan of care at this visit. I have reviewed the note at the visit and have added edits as appropriate to my evaluation andplan of care. [facility] Inst[facility]* Patient Instructions* Sanchez Ying - 04/27/2024 1:45 PM EST Assessment and Plan ICD-10-CM 1. Chronic kidney disease (CKD), stage V N18.5 2. Arthralgia of left hip M25.552 3. Acquired hypothyroidism E03.9 Obtain blood work and urinalysis. If lab work or other testing was ordered at your visit, check your My Chart account for test results or call the office to get results or if you have questions. Sanchez Ying [facility], was the medical lab scientist for today's note. I have performed all essential components of the history and physical exam, confirmed the diagnosis and developed a plan of care at this visit. I have reviewed the note at the visit and have added edits as appropriate to my evaluation andplan of care. [facility]24 NoteORIGINAL PROCEDURE: Removal of cuffed tunneled catheter CLINICAL STATEMENT: ESRD, functioning fistula to RUE COMPOSITE SCIENCE TEACHER: Sheila Burks PA-C CATHETER LOCATION: Right chest CATHETER TYPE: Hemodialysis catheter The procedure, risks, and alternatives, were discussed and all questions were answered. Written informed consent obtained. Accompanying paperwork was verified for accuracy. Directed history and physical exam performed prior to the procedure. Medication reconciliation performed by nursing personnel. Procedure was performed using a cap, sterile gown, sterile gloves, sterile towels, hand hygiene and hospital approved cutaneous antisepsis. The patient was positioned supine in bed and prepped and draped in usual sterile fashion. A critical pause was performed with assisting personnel just prior to the procedure with the patient's identity confirmed using 2 identifiers, confirming site and side. The site shows no signs of erythema, swelling or drainage. 2% lidocaine was used for local anesthesia. The cuff was freed from the surrounding tissue utilizing blunt dissection. The 23cm catheter was removed in its entirety without difficulty. Pressure was held at the venotomy for approximately five minutes. Excellent hemostasis was achieved. A sterile dressing was applied at the skin entry site. COMPLICATIONS: None EBL: Minimal PATIENT CONDITION: Stable, unchanged. IMPRESSION: Successful removal of cuffed tunneled catheter. This procedure was performed by Sheila Burks PA-C under direct supervision of Babs Barclay PA-C Interpreted by: Lv Quesada MD Preliminary Report By: Sheila Burks Electronically signed By Lv Quesada MD Dictated Date: 04/06/2024 2:02:34 PM Prelim Date: 04/06/2024 2:07:19 PM Sign Date: 04/07/2024 12:08:33 PM Ordering Provider: [facility]-05-[facility] Note* Magdiel Coffey PCT: SIGN, AUTHOR, SIGN, AUTHOR, PERFORM Event Display: IR Procedure Record Authored Date: [id number] IR Procedure Record Summary Primary Physician: Finalized Date/Time: 04/06/24 13:31:09 Pt. Name: VALENCIAGENET./Sex: 1945 Male Med Rec #: [id number] Physician: Financial #: [id number] Pt. Type: O Room/Bed: / Admit/Disch: 04/06/24 11:40:00 - Institution: Allergies identified in patient's electronic medical record at time of printing on 04/06/24 Entry 1 Entry 2 Entry 3 Substance ciprofloxacin iodine meloxicam Reaction Type Allergy Allergy Allergy Last Modified By: Zuleyma Valle RN, Hannah M RN Bast, Hannah M RN 04/06/24 11:58:22 04/06/24 11:58:04 04/06/24 11:59:08 Case Attendance- IR Entry 1 Entry 2 Entry 3 Case Attendee BABS BARCLAY PA-C, Logan PCT GENTRY, KATELYN J PA-C Role Performed Radiology PA/RA Circulating Technologist Radiology PA/RA Details Time In 04/06/24 12:55:00 04/06/24 12:50:00 04/06/24 12:55:00 Time Out 04/06/24 13:05:00 04/06/24 13:12:00 04/06/24 13:05:00 Procedure/Preference IR Central Venous Cath IR Central Venous Cath IR Central Venous Cath Card Remove w/o Pump S Remove w/o Pump S Remove w/o Pump S Last Modified By: Magdiel Coffey Logan PCT Ritchey, Logan PCT 04/06/24 13:21:39 04/06/24 13:21:04 04/06/24 13:21:39 Entry 4 Case Attendee Tex Duval Role Performed Circulating Technologist Details Time In 04/06/24 12:50:00 Time Out 04/06/24 13:12:00 Procedure/Preference IR Central Venous Cath Card Remove w/o Pump S Last Modified By: Magdiel Coffey PCT 04/06/24 13:21:04 Radiology Procedures- IR Entry 1 Procedure/Preference IR Central Venous Cath Actual Procedure IR Perm Cath Removal Card Remove w/o Pump SN Primary Procedure Yes Primary Surgeon BABS BARCLAY PA-C Anesthesia/Sedation Local Type Additional Procedure Times Start 04/06/24 12:55:00 Stop 04/06/24 13:05:00 Specialty Service SN Radiology Procedure EBL 1 mL Last Modified By: Magdiel Coffey PCT 04/06/24 13:24:19 Radiology Procedure Details - IR Entry 1 Radiology Sedation Case Times Sedation Total Time 0 Radiology - Fluid/Drainage Radiology Contrast Contrast Used? No Radiology Flouroscopy Fluoroscopy Used? No Fluoro Time 0 Radiology Local Local Used? Yes Local Type: lido 2% Local Dose 8 ml Radiology Procedure Site Site Condition No complications Dressing Type Bioclusive 4 X 5, Gauze sponge 4 X 4 Technologist Notes removal of right sided tunneled catheter Last Modified By: Magdiel Coffey PCT 04/06/24 13:31:04 General Case Data - IR Entry 1 Case Information Room AH IR Portable Case Level IR Level 2 Wound Class None Specialty SN Radiology Procedure ASA Class None Diagnosis Preop Diagnosis esrd fistula Postop Same As Preop Yes Postop Diagnosis esrd fistula Last Modified By: Magdiel Coffey PCT 04/06/24 13:24:07 Procedure Case Times- IR Entry 1 Patient In Procedure Patient In OR 04/06/24 12:50:00 Patient Out of OR 04/06/24 13:12:00 Procedure Start/Stop Procedure Start Time 04/06/24 12:55:00 Procedure Stop Time 04/06/24 13:05:00 Last Modified By: Magdiel Coffey PCT 04/06/24 13:21:01 Immediate Post OP Note - IR Entry 1 Immediate Post Yes Procedure Note displayed for Physician to review Closure Technique Closure Technique Other than Primary Last Modified By: Magdiel Coffey PCT 04/06/24 13:23:10 Immediate Post OP Note - IR Signed By: SHEILA BURKS PA-C 04/06/24 13:29 Allergy Information- IR Entry 1 Allergies Reviewed? Yes Allergies Reviewed Patient With Last Modified By: Magdiel Coffey PCT 04/06/24 13:19:08 Radiology Protocols/Time Out- IR Entry 1 Preprocedure Clinician Verifies Correct patient ID When Clinically Confirmation of correct using name & date Indicated side(s) and site(s), or MRN, Accurate Correct diagnostic and procedure, complete radiology tests Informed Consent, H & P available update immediately prior to procedure, if applicable OR/Procedure Room/Bedside Time 04/06/24 12:55:00 Clinician Verifies Correct patient identity including EMR & records using name and date or medical record number, Accurate procedure consent form, Correct patient position, Necessary equipment is available, Anticipated non-routine events with surgical team (case duration, estimated blood loss, patient specific concerns)., Santamaria patient factors for recovery and management identified with surgical team. When Applicable Confirmation correct Team Members BABS BARCLAY side and site marked, Present for Time Out Erlinda SCHULTZ Logan Alcohol based prep dry, PCT, SHEILA BURKS Double verification of ANTOINE, [place], Field Assessor sterility indicators Myrna Alegre complete Instrument Sterility Team Members SHEILA BURKS PA-C, Verifying Sterility Magdiel Coffey PCT Procedure IR Central Venous Cath Remove w/o Pump S Last Modified By: Magdiel Coffey 04/06/24 13:22:29 Skin Prep- IR Entry 1 Procedure IR Central Venous Cath Remove w/o Pump S Skin Prep Prep Area Chest Side Right By Magdiel Coffey Prep Agents Chloraprep Hair Removal Method N/A Last Modified By: Magdiel Coffey 04/06/24 13:22:50 Patient Positioning- IR Entry 1 Procedure IR Central Venous Cath Body Position OP Supine Remove w/o Pump S Feet Uncrossed? n/a Pressure Points n/a Checked Last Modified By: Magdiel Coffey PCT 04/06/24 13:22:58 Radiology Procedure Plan - IR Entry 1 Radiology - Nursing Care Plan Radiology - Action Plan Action Plan - Patient demonstrates Outcome Statement knowledge of the expected reseponses to the invasive procedure, Patient's value system, lifestyle, ethnicity, and culture are considered, respected, and incorporated in the perioperative plan of care., Patient is free from signs and symptoms of infection., Patient is free from signs and symptoms of injury related to positioning., Patient is free from signs and symptoms of chemical injury., Patient receives appropriate medication(s), safely administered during the perioperative period., Patient is free from signs and symptoms of injury caused by extraneous objects (equipment, instrumentation, sponges, or sharps)., Patient is free from signs and symptoms of electrical injury. Outcomes Met? Yes Gamb Cutter Magdiel Coffey PCT Completing Procedure Plan Last Modified By: Magdiel Coffey PCT 04/06/24 13:23:43 Case Comments <None> Finalized By: Magdiel Coffey PCT Document Signatures Signed By: Magdiel Coffey PCT 04/06/24 13:31 Magdiel Coffey PCT 04/06/24 13:31 [facility] 11-05-2024 Hospital Discharge instructions Patient Education 04/06/2024 13:10:31 Radiology- Tunnel Catheter Removal 09/15/2019(CUSTOM) SARTELL Tunnel Catheter Removal Discharge Instructions Interventional Radiology [facility] [address] [place] [address] DIET: ?Resume your regular diet as tolerated. ?Special diet instructions: ACTIVITY: ?Rest for the remainder of the day. You may resume your normal activity tomorrow. ?You may bathe, but wait 3 days until the dressing is removed to shower. ?Do not soak or submerge site until a scab forms. ?No swimming or hot tubs. ?No heavy lifting, pushing, or straining. ?Special activity instructions: DRESSING: ?Check the site for bleeding. Apply pressure to the site if bleeding excessively and call your physician. ?The dressing can be removed after 3 days. ?Special dressing instructions: PAIN CONTROL: ?The removal site may be sore for 1 to 2 days following the procedure. ?Tkjr-gva-[id number] pain medication should be used for pain or discomfort. Please check with the physician who ordered this procedure for you for their specific recommendations. ?If your pain is not relieved or becomes more severe, notify the physician who sent you for this procedure. ?Special instructions: MEDICATION: ?Please resume on . WHEN TO SEEK MEDICAL CARE: You should contact your physician or visit your local emergency room promptly if any of the following occur: Lightheadedness, dizziness, or fainting Infection Rarely, infection at the site where the catheter was removed may occur. Signs and symptoms include a fever greater than 101 degrees, chills, redness, warmth, swelling, increased pain, bleeding or pusfrom the puncture site. Special Instructions: Follow Up Care 03/19/2024 10:32:59 With:Follow up with primary care provider Address:Unknown When: Unknown [facility] 11-05-2024 Evaluation + Plan noteExtracted from: Title:Preprocedure HP Author:YONI MASON PA-C Date:04/06/24 Interventional Radiology Focused Preprocedure History/Physical Reason for Visit ESRD Fistula History of Presenting Illness/Planned IR Procedure Tunneled Hemodialysis catheter removal Allergies (3) ActiveSeverityReaction ciprofloxacinNone Documented meloxicamNone Documented iodinehives ,SOB, N&V Home Medications (17) Active acetaminophen-hydrocodone 325 mg-5 mg oral tablet 1 tab(s), PRN, Oral, q6h allopurinol 100 mg tablet Benadryl 25 mg oral capsule 25 mg = 1 cap(s), PRN, Oral, q4h Clonidine-TTS use CATAPRES-TTS transdermal film 0.1 mg, PRN, Transdermal, q4h Gas Relief Ultra Strength Softgels 180 mg oral capsule , Oral, TID isosorbide mononitrate 30 mg oral tablet, extended release 30 mg = 1 tab(s), Oral, qAM levothyroxine 88 mcg (0.088 mg) oral tablet 88 mcg = 1 tab(s), Oral, qDayAC loperamide 2 mg oral tablet 2 mg = 1 tab(s), PRN, Oral, q4h midodrine 5 mg oral tablet MiraLax oral powder for reconstitution 17 gram(s), Oral, qDay Multivitamin 1 tab(s), Oral, Daily oxybutynin 5 mg oral tablet Pyridium 200 mg oral tablet , Oral, TID Renvela 800 mg oral tablet 800 mg = 1 tab(s), Oral, TID Senna Plus 1 tab(s), Oral, qHS sertraline 100 mg oral tablet 100 mg = 1 tab(s), Oral, qDay Zofran 4 mg oral tablet 4 mg = 1 tab(s), PRN, Oral, q12h Problem List/Past Medical History Anemia Anemia of chronic renal failure Chronic kidney disease (CKD) Dyspnea ESRD (end stage renal disease) Hx of essential hypertension Hydronephrosis Hyperparathyroidism Iron deficiency anemia Orthostatic hypotension Surgical History Nephrectomy AV fistula recirculation Hip replacement Left Family History No family history recorded. Social History Alcohol Details: Use: Never. Substance Abuse Details: Use: Never. Tobacco Details: Nicotine Use: Never (less than 100 in lifetime). Physical Exam Vitals: Mgueyhoofyi39 (11:49) Systolic Blood Yvofidvh542 (11:49) Diastolic Blood Uwwkblid22 (11:49) Pulse50 (11:49) WbE369 (11:49) Respiratory RateNo result General: Alert, cooperative. The remainder of the physical exam is noncontributory. Labs Anticoagulation Labs No qualifying data available. No qualifying data available. Assessment/Treatment Plan Tunneled Hemodialysis catheter removal Post Procedure Discharge Plan Patient to be discharged home. Edilia Masno PA-C Interventional Radiology Pager [phone] IR Dept [id number] Available on [facility] 11-05-2024 Note IR Procedure Record Summary Primary Physician: Finalized Date/Time: 04/06/24 13:31:09 Pt. Name: GENET BOOTH/Sex: 1945 Male Med Rec #: [id number] Physician: Financial #: [id number] Pt. Type: O Room/Bed: / Admit/Disch: 04/06/24 11:40:00 - Institution: Allergies identified in patient's electronic medical record at time of printing on 04/06/24 Entry 1 Entry 2 Entry 3 Substance ciprofloxacin iodine meloxicam Reaction Type Allergy Allergy Allergy Last Modified By: Zuleyma Valle RN, Hannah M RN Bast, Hannah M RN 04/06/24 11:58:22 04/06/24 11:58:04 04/06/24 11:59:08 Case Attendance- IR Entry 1 Entry 2 Entry 3 Case Attendee BABS BARCLAY PA-C, Logan PCT GENTRY, KATELYN J PA-C Role Performed Radiology AYAZ/ Circulating Technologist Radiology AYAZ/ Details Time In 04/06/24 12:55:00 04/06/24 12:50:00 04/06/24 12:55:00 Time Out 04/06/24 13:05:00 04/06/24 13:12:00 04/06/24 13:05:00 Procedure/Preference IR Central Venous Cath IR Central Venous Cath IR Central Venous Cath Card Remove w/o Pump S Remove w/o Pump S Remove w/o Pump S Last Modified By: Magdiel Coffey PCT Magdiel Coffey PCT Magdiel Coffey PCT 04/06/24 13:21:39 04/06/24 13:21:04 04/06/24 13:21:39 Entry 4 Case Attendee Tex Duval Role Performed Circulating Technologist Details Time In 04/06/24 12:50:00 Time Out 04/06/24 13:12:00 Procedure/Preference IR Central Venous Cath Card Remove w/o Pump S Last Modified By: Magdiel Coffey PCT 04/06/24 13:21:04 Radiology Procedures- IR Entry 1 Procedure/Preference IR Central Venous Cath Actual Procedure IR Perm Cath Removal Card Remove w/o Pump SN Primary Procedure Yes Primary Surgeon BABS BARCLAY PA-C Anesthesia/Sedation Local Type Additional Procedure Times Start 04/06/24 12:55:00 Stop 04/06/24 13:05:00 Specialty Service SN Radiology Procedure EBL 1 mL Last Modified By: Magdiel Coffey PCT 04/06/24 13:24:19 Radiology Procedure Details - IR Entry 1 Radiology Sedation Case Times Sedation Total Time 0 Radiology - Fluid/Drainage Radiology Contrast Contrast Used? No Radiology Flouroscopy Fluoroscopy Used? No Fluoro Time 0 Radiology Local Local Used? Yes Local Type: lido 2% Local Dose 8 ml Radiology Procedure Site Site Condition No complications Dressing Type Bioclusive 4 X 5, Gauze sponge 4 X 4 Technologist Notes removal of right sided tunneled catheter Last Modified By: Magdiel Coffey PCT 04/06/24 13:31:04 General Case Data - IR Entry 1 Case Information Room AH IR Portable Case Level IR Level 2 Wound Class None Specialty SN Radiology Procedure ASA Class None Diagnosis Preop Diagnosis esrd fistula Postop Same As Preop Yes Postop Diagnosis esrd fistula Last Modified By: Magdiel Coffey PCT 04/06/24 13:24:07 Procedure Case Times- IR Entry 1 Patient In Procedure Patient In OR 04/06/24 12:50:00 Patient Out of OR 04/06/24 13:12:00 Procedure Start/Stop Procedure Start Time 04/06/24 12:55:00 Procedure Stop Time 04/06/24 13:05:00 Last Modified By: Magdiel Coffey PCT 04/06/24 13:21:01 Immediate Post OP Note - IR Entry 1 Immediate Post Yes Procedure Note displayed for Physician to review Closure Technique Closure Technique Other than Primary Last Modified By: Magdiel Coffey PCT 04/06/24 13:23:10 Immediate Post OP Note - IR Signed By: SHEILA BURKS PA-C 04/06/24 13:29 Allergy Information- IR Entry 1 Allergies Reviewed? Yes Allergies Reviewed Patient With Last Modified By: Magdiel Coffey PCT 04/06/24 13:19:08 Radiology Protocols/Time Out- IR Entry 1 Preprocedure Clinician Verifies Correct patient ID When Clinically Confirmation of correct using name & date Indicated side(s) and site(s), or MRN, Accurate Correct diagnostic and procedure, complete radiology tests Informed Consent, H & P available update immediately prior to procedure, if applicable OR/Procedure Room/Bedside Time 04/06/24 12:55:00 Clinician Verifies Correct patient identity including EMR & records using name and date or medical record number, Accurate procedure consent form, Correct patient position, Necessary equipment is available, Anticipated non-routine events with surgical team (case duration, estimated blood loss, patient specific concerns)., Santamaria patient factors for recovery and management identified with surgical team. When Applicable Confirmation correct Team Members BABS BARCLAY side and site marked, Present for Time Out Erlinda SCHULTZ Logan Alcohol based prep dry, PCT, SHEILA BURKS Double verification of ANTOINE, Tex Duval sterility indicators Myrna Alegre complete Instrument Sterility Team Members SHEILA BURKS PA-C, Verifying Sterility Magdiel Coffey PCT Procedure IR Central Venous Cath Remove w/o Pump S Last Modified By: Magdiel Coffey 04/06/24 13:22:29 Skin Prep- IR Entry 1 Procedure IR Central Venous Cath Remove w/o Pump S Skin Prep Prep Area Chest Side Right By Magdiel Coffey PCT Prep Agents Chloraprep Hair Removal Method N/A Last Modified By: Magdiel Coffey 04/06/24 13:22:50 Patient Positioning- IR Entry 1 Procedure IR Central Venous Cath Body Position OP Supine Remove w/o Pump S Feet Uncrossed? n/a Pressure Points n/a Checked Last Modified By: Magdiel Coffey [facility] 04/06/24 13:22:58 Radiology Procedure Plan - IR Entry 1 Radiology - Nursing Care Plan Radiology - Action Plan Action Plan - Patient demonstrates Outcome Statement knowledge of the expected reseponses to the invasive procedure, Patient's value system, lifestyle, ethnicity, and culture are considered, respected, and incorporated in the perioperative plan of care., Patient is free from signs and symptoms of infection., Patient is free from signs and symptoms of injury related to positioning., Patient is free from signs and symptoms of chemical injury., Patient receives appropriate medication(s), safely administered during the perioperative period., Patient is free from signs and symptoms of injury caused by extraneous objects (equipment, instrumentation, sponges, or sharps)., Patient is free from signs and symptoms of electrical injury. Outcomes Met? Yes Gamb Cutter Magdiel Coffey Completing Procedure Plan Last Modified By: Magdiel Coffey [facility] 04/06/24 13:23:43 Case Comments Finalized By: Magdiel Coffey Document Signatures Signed By: Magdiel Coffey [facility] 04/06/24 13:31 Magdiel Coffey [facility] 04/06/24 13:31 [id number] Summary of episode note Discharge Instructions Thank you for allowing [facility] to assist you with your healthcare needs. The following is importantdischarge information regarding your hospital visit. What to do next Follow Up Appointments Follow Up with Follow up with primary care provider The Following Activity and Diet Have Been Ordered for You No qualifying data available. No qualifying data available. The Following Equipment Has Been Ordered for You No qualifying data available. The Following Treatments Have Been Ordered for You Discharge Labs No qualifying data available. Discharge Radiology No qualifying data available. Other Therapies No qualifying data available. Post Acute Orders No qualifying data available. Someone Will Contact You Regarding These Home Health Referrals No home referrals have been ordered for you. No one will call you. Allergies ciprofloxacin iodine hives ,SOB, N&V meloxicam Medications Please ask your primary doctor or pharmacist before taking any other medication not listed, including over the counter drugs, herbal medications, vitamins and or supplements as they may interact withyour home medications. What How Much When Instructions Last Dose Unchanged acetaminophen-hydrocodone (acetaminophen-hydrocodone 325 mg-5 mg oral tablet) 1 tab(s) by mouth Every 6 hours as needed for for pain Unchanged cloNIDine (Clonidine-TTS use CATAPRES-TTS transdermal film ) 0.1 Milligram Transdermal Every 4 hours as needed for Other (see order comments) Unchanged diphenhydrAMINE (Benadryl 25 mg oral capsule) 1 cap by mouth Every 4 hours as needed for as needed for allergy symptoms Unchanged docusate-senna (Senna Plus) 1 tab(s) by mouth Daily at bedtime Unchanged isosorbide mononitrate (isosorbide mononitrate 30 mg oral tablet, extended release) 1 tab(s) by mouth Once a day (in the morning) Unchanged levothyroxine (levothyroxine 88 mcg (0.088 mg) oral tablet) 1 tab(s) by mouth Once a day before a meal Unchanged loperamide (loperamide 2 mg oral tablet) 1 tab(s) by mouth Every 4 hours as needed for as needed for loose stool Unchanged midodrine (midodrine 5 mg oral tablet) Take 1 tablet by mouth 2 times daily. Unchanged Misc Medication (allopurinol 100 mg tablet) TAKE 1 Tablet EVERY DAY Unchanged multivitamin (Multivitamin) 1 tab(s) by mouth Every day Unchanged ondansetron (Zofran 4 mg oral tablet) 1 tab(s) by mouth Every 12 hours as needed for Nausea/Vomiting Unchanged oxybutynin (oxybutynin 5 mg oral tablet) TAKE 1 Tablet TWICE DAILY Unchanged phenazopyridine (Pyridium 200 mg oral tablet) by mouth Three (3) times a day Unchanged polyethylene glycol 3350 (MiraLax oral powder for reconstitution) 17 gram(s) by mouth Once a day dissolve in 4 to 8 oz of beverage Unchanged sertraline (sertraline 100 mg oral tablet) 1 tab(s) by mouth Once a day Unchanged sevelamer (Renvela 800 mg oral tablet) 1 tab(s) by mouth Three (3) times a day Unchanged simethicone (Gas Relief Ultra Strength Softgels 180 mg oral capsule) by mouth Three (3) times a day Please take this list to your next doctor s visit. Bring all medications you take, including over the counter medications, herbals and other supplements with you to your doctor s visit. Patients and families are reminded to discard old lists and to update any records with all medication providers or retail pharmacies. Education Materials [facility] Catheter Removal Discharge Instructions Interventional Radiology [facility] [address] [place] [address] DIET: ? Resume your regular diet as tolerated. ? Special diet instructions: ACTIVITY: ? Rest for the remainder of the day. You may resume your normal activity tomorrow. ? You may bathe, but wait 3 days until the dressing is removed to shower. ? Do not soak or submerge site until a scab forms. ? No swimming or hot tubs. ? No heavy lifting, pushing, or straining. ? Special activity instructions: DRESSING: ? Check the site for bleeding. Apply pressure to the site if bleeding excessively and call your physician. ? The dressing can be removed after 3 days. ? Special dressing instructions: PAIN CONTROL: ? The removal site may be sore for 1 to 2 days following the procedure. ? Xvyr-chh-ndisohw pain medication should be used for pain or discomfort. Please check with the physician who ordered this procedure for you for their specific recommendations. ? If your pain is not relieved or becomes more severe, notify the physician who sent you for this procedure. ? Special instructions: MEDICATION: ? Please resume on . WHEN TO SEEK MEDICAL CARE: You should contact your physician or visit your local emergency room promptly if any of the following occur: Lightheadedness, dizziness, or fainting Infection Rarely, infection at the site where the catheter was removed may occur. Signs and symptoms include a fever greater than 101 degrees, chills, redness, warmth, swelling, increased pain, bleeding or pusfrom the puncture site. Special Instructions: Additional Information VACCINATE! IT SAVES LIVES! Members of the community who have not yet received the COVID-19 vaccine and would like to receive it can visit one of [facility] vaccine clinics. There are many vaccine clinic locations within the [facility]. For locations and available times, please visit [email or web address].[place].[email or web address] It is important to note that some COVID mobile vaccine clinics are held outdoors and may be canceled in rainy or stormy conditions. To learn more about pediatric vaccinations (ages 5-11), we invite you to visit the [facility] webpage. [email or web address] learn more about the COVID-19 vaccine, we invite you to visit the CDC website for a list of frequently asked questions.https://www.cdc.gov/coronavirus/2019-ncov/vaccines/faq.html [facility] Patient Portal Access Instructions: Stay connected with your healthcare team and access your personal medical information anytime with the [facility] Patient Portal. Please follow the directions below to create your [facility] account: 1.Access the email account you provided upon registration to the hospital/physician office.2.Look for an invitation email from [facility].3.Open the email and access the invitation link: AcceptInvitation to [facility].4.Fill in the required duarte to create your account. To access your account, visit [email or web address]. Click the blue button labeled Access Patient Portal and then log in with the username and password that you created in the steps above. You will be able to view your test results, lab results, a summary of your visits, upcoming appointments and more. There is also a convenient messaging option where you can send secure messages to your p rovider. In addition, you will have the ability to download any documents or summaries to your computer and/or send the information securely to a physician. Remember that your healthcare information is confidential, so carefully consider who you will allowto register on the [facility] Patient Portal for access to your information. You can also access the [facility] Patient Portal on the [facility] kim. Simply click on Patient Portal and then log into your account. If you would like to receive a full copy of your medical records, please contact the [facility] Medical Records Department by calling [phone], Friday through Friday between 8 a.m. and 4:30 p.m. HOW TO SAFELY DISPOSE OF PRESCRIPTION MEDICATIONS Please use one of the following methods to safely dispose of your unused medications. 1.Use a drug disposal kit: the drug disposal pouch allows you to safely discard your old and unuseddrugs. Ask your nurse to give you one when you are discharged.2.Visit a local take-back location: Many local pharmacies and police departments have programs that collect old and unwanted prescriptiondrugs. Call your local pharmacy or go to http://bit.ly/2X4Qj4k to find one close to you.3.Make use of household items: Use cat litter or old coffee grounds to dispose medications if other options arenot available. Mix your drugs with these household products, seal them in an airtight container andthrow it into the garbage. Call [facility]: [phone] to be sure your drugs can be disposed of in this way. Some medicines may require a different approach.4.Never flush your medications down the toilet. IF YOU HAVE BEEN PRESCRIBED AN OPIOID FOR PAIN If you have been prescribed an opioid (such as hydrocodone, oxycodone or morphine), it is critical to understand the possible side effects and risks of opioid pain medications. Even when taken as directed, opioids can have several side effects including: Tolerance, meaning you might need to take more of a medication for the same pain relief. Nausea, vomiting and/or constipation. Sleepiness, dizziness, dry mouth, confusion, depression or itching. Physical dependence, meaning you have withdrawal symptoms when a medication is stopped, can develop within a few days. KNOW YOUR RESPONSIBILITIES It is important to know exactly how much and how often to take the opioid pain medications you are prescribed. Never take opioids in higher amounts or more often than prescribed. Do not combine opioids with alcohol or other drugs that cause drowsiness, such as benzodiazepines, also known as benzos, including diazepam and alprazolam, muscle relaxants or sleep aids. Never sell or share prescription opioids. This is illegal. Store opioids in a secure place and out of reach of others (including children, family, friends and visitors). The last page of this document has been signed and retained as a CHART COPY. Signatures Patient Education Materials Radiology- Tunnel Catheter Removal 09/15/2019(CUSTOM) Medication Leaflets My discharge plan and instructions have been reviewed and explained to me and I,GENET BOOTH understand my current condition and have read and understand these discharge instructions. I have received a written copy of the plan/instructions. If I have questions, I am aware that I should contact my d octor. Patient/Garde Manger Signature: Date/Time: Relationship to Patient: Witness Name/Signature: Date/Time: [id number] Procedure note IR Brief Post Procedure Note Preprocedure Dx: ESRD on dialysis, functioning fistula Post Procedure Dx: Same Procedure: Removal of tunneled HD catheter Anesthesia: Local EBL: Minimal Complications: None Status: Unchanged Findings: 1. Successful removal of tunneled HD catheter from RIGHT chest - 23 cm Plan: 1. Discharge home 2. Dressing applied Full report to follow. Sheila Burks PA-C Interventional Radiology Pager: [phone] IR dept: [id number] Available on [employer] Messenger Digitally Signed by SHEILA BURKS PA-C on 04/06/2024 01:05 PM [id number] Note Interventional Radiology Focused Preprocedure History/Physical Reason for Visit ESRD Fistula History of Presenting Illness/Planned IR Procedure Tunneled Hemodialysis catheter removal Allergies (3) ActiveSeverityReaction ciprofloxacinNone Documented meloxicamNone Documented iodinehives ,SOB, N&V Home Medications (17) Active acetaminophen-hydrocodone 325 mg-5 mg oral tablet 1 tab(s), PRN, Oral, q6h allopurinol 100 mg tablet Benadryl 25 mg oral capsule 25 mg = 1 cap(s), PRN, Oral, q4h Clonidine-TTS use CATAPRES-TTS transdermal film 0.1 mg, PRN, Transdermal, q4h Gas Relief Ultra Strength Softgels 180 mg oral capsule , Oral, TID isosorbide mononitrate 30 mg oral tablet, extended release 30 mg = 1 tab(s), Oral, qAM levothyroxine 88 mcg (0.088 mg) oral tablet 88 mcg = 1 tab(s), Oral, qDayAC loperamide 2 mg oral tablet 2 mg = 1 tab(s), PRN, Oral, q4h midodrine 5 mg oral tablet MiraLax oral powder for reconstitution 17 gram(s), Oral, qDay Multivitamin 1 tab(s), Oral, Daily oxybutynin 5 mg oral tablet Pyridium 200 mg oral tablet , Oral, TID Renvela 800 mg oral tablet 800 mg = 1 tab(s), Oral, TID Senna Plus 1 tab(s), Oral, qHS sertraline 100 mg oral tablet 100 mg = 1 tab(s), Oral, qDay Zofran 4 mg oral tablet 4 mg = 1 tab(s), PRN, Oral, q12h Problem List/Past Medical History Anemia Anemia of chronic renal failure Chronic kidney disease (CKD) Dyspnea ESRD (end stage renal disease) Hx of essential hypertension Hydronephrosis Hyperparathyroidism Iron deficiency anemia Orthostatic hypotension Surgical History Nephrectomy AV fistula recirculation Hip replacement Left Family History No family history recorded. Social History Alcohol Details: Use: Never. Substance Abuse Details: Use: Never. Tobacco Details: Nicotine Use: Never (less than 100 in lifetime). Physical Exam Vitals: Konebsuwuij99 (11:49) Systolic Blood Yucoiosw186 (11:49) Diastolic Blood Kjiistfk70 (11:49) Pulse50 (11:49) WmG590 (11:49) Respiratory RateNo result General: Alert, cooperative. The remainder of the physical exam is noncontributory. Labs Anticoagulation Labs No qualifying data available. No qualifying data available. Assessment/Treatment Plan Tunneled Hemodialysis catheter removal Post Procedure Discharge Plan Patient to be discharged home. Edilia Mason PA-C Interventional Radiology Pager [phone] IR Dept [id number] Available on [employer] Digitally Signed by EDILIA MASON PA-C on 04/06/2024 01:01 PM Digitally Signed by LV QUESADA MD on 04/06/2024 02:17 PM [id number] Evaluation + Plan note* Assessment & Plan Note - Judy Ley MD - 04/01/2024 2:11 PM EDTAssociated Problem(s): History of left hip hemiarthroplasty Assessment: 1 year status post an 04/02/2023 left hemiarthroplasty for hip fracture. The patient is able to ambulate with a walker. He has postural hypotension and so does not do much walking. He is recently started dialysis. He is now at his home where he is previously he was in a nursing facility. Plan: He should slowly advance his activities within his tolerance from an endurance point of view and also from his postural hypotension point of view. Follow-up with me in 1 year for recheck. We will obtain x-rays of his left hip at that time. Follow-up sooner if he is struggling with his rehabilitation secondary to hip pain or groin pain. [facility] Work Phone: 1(646) 470-431310-31-2024 Miscellaneous Notes* Assessment & Plan Note - Judy Ley MD - 04/01/2024 2:11 PM EDTAssociated Problem(s): History of left hip hemiarthroplasty Assessment: 1 year status post an 04/02/2023 left hemiarthroplasty for hip fracture. The patient is able to ambulate with a walker. He has postural hypotension and so does not do much walking. He is recently started dialysis. He is now at his home where he is previously he was in a nursing facility. Plan: He should slowly advance his activities within his tolerance from an endurance point of view and also from his postural hypotension point of view. Follow-up with me in 1 year for recheck. We will obtain x-rays of his left hip at that time. Follow-up sooner if he is struggling with his rehabilitation secondary to hip pain or groin pain. [facility] Work Phone: 1(259) 487-848910-31-2024 History of Present illness Narrative* Judy Ley MD - 04/01/2024 1:30 PM EDT Assessment/Plan Encounter Diagnoses: 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 Assessment: 1 year status post an 04/02/2023 left hemiarthroplasty for hip fracture. The patient is able to ambulate with a walker. He has postural hypotension and so does not do much walking. He is recently started dialysis. He is now at his home where he is previously he was in a nursing facility. Plan: He should slowly advance his activities within his tolerance from an endurance point of view and also from his postural hypotension point of view. Follow-up with me in 1 year for recheck. We will obtain x-rays of his left hip at that time. Follow-up sooner if he is struggling with his rehabilitation secondary to hip pain or groin pain. Subjective Patient ID: Genet Booth is a 79 y.o. male. Chief Complaint: Follow-up of the Left Hip (Left Hip Hemiarthroplasty on 06/12/22) Last Surgery: Hip Hemiarthroplasty - Left Last Surgery Date: 04/02/2023 HPI 79-year-old who is 1 year status post left hemiarthroplasty. He continues to make progress. His rehabilitation has been hampered by renal failure which is now being treated with dialysis. He also haspostural hypotension and this limits his rehabilitation considerably. He states he can walk with the walker sometimes longer than at other times but almost always because of the hypotension and not the hip. He does complain of some hip pain but not groin pain when he is ambulating. He mentioned that the left leg may be slightly shorter than the right. OBJECTIVE: ORTHO EXAM Left hip exam Gentle range of motion was nontender. His thigh is supple and nontender. His incision is clean and dry. His calves are supple and nontender bilaterally. He is neurovascularly intact distally. Leg length discrepancy was not tested today as he is feeling a little dizzy sitting in the wheelchair and was not up to standing. IMAGE RESULTS: Point of Care Ultrasound These images are not reportable by radiology and will not be interpreted by Radiologists. Well-positioned left hemiarthroplasty without any signs of loosening. ULTRASOUND None Procedures Orders Placed This Encounter XR hip left with pelvis when performed 2 or 3 views Point of Care Ultrasound [facility] Work Phone: 1([phone]) 836-609110-22-2024 History of Present illness Narrative* Ata Hernandez, DO - 03/23/2024 3:30 PM EDT Subjective History of Present Illness Chief Complaint Patient presents with Hip Injury Pt states that one year ago he fell and broke his hip. Pt has been living in a residential for thelast year and also started dialysis last April. Pt is here today to inform of changes that have been made to his medications and health care. Pt did have recent labs done. Blood in Urine Pt states he had a kidney stent and since this surgery a few weeks ago he has had blood in his urine. PT states he does need to make an appointment with about this. Kidney Problem Here for follow-up for history of end-stage renal disease on hemodialysis Friday, hypertension, hyperlipidemia, obstructive sleep apnea, anemia of chronic disease, GERD, recurrent UTI, prostate cancer, hydronephrosis, BPH with obstructive lower urinary symptoms, chronic indwelling Jamison, right ureteral stent and left nephrostomy tube. Also history of MRSA of fistula. Objective Review of Systems Constitutional: Negative for activity change, chills and fever. HENT: Negative for dental problem, ear pain, mouth sores, sinus pain and trouble swallowing. Eyes: Negative for discharge and visual disturbance. Respiratory: Negative for chest tightness, shortness of breath and wheezing. Cardiovascular: Negative for chest pain, palpitations and leg swelling. Gastrointestinal: Negative for abdominal pain and nausea. Endocrine: Negative for polydipsia, polyphagia and polyuria. Genitourinary: Negative for difficulty urinating, flank pain, frequency and urgency. Musculoskeletal: Negative for arthralgias, back pain, myalgias and neck pain. Skin: Negative for color change and rash. Neurological: Negative for dizziness, syncope and light-headedness. Psychiatric/Behavioral: Negative for decreased concentration and sleep disturbance. All other systems reviewed and are negative. Vitals: Blood pressure 138/60, pulse 111, temperature 97.6 F (36.4 C), height 1.803 m (5' 11), weight 101.6 kg (224 lb), SpO2 94%. Physical Exam Vitals and nursing note reviewed. HENT: Head: Normocephalic. Cardiovascular: Rate and Rhythm: Normal rate and regular rhythm. Heart sounds: No murmur heard. Pulmonary: Effort: Pulmonary effort is normal. Breath sounds: Normal breath sounds. Abdominal: General: Bowel sounds are normal. Palpations: Abdomen is soft. Tenderness: There is no abdominal tenderness. Musculoskeletal: General: No swelling. Assessment and Plan ICD-10-CM 1. Needs flu shot Z23 influenza high-dose split virus vaccine (FLUZONE HIGH- DOSE) injection 0.5 mL 2. Benign essential hypertension I10 3. Anemia in end-stage renal disease N18.6 D63.1 4. 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 Unable to navigate stairs due to hip pain. Discontinue Ditropan (oxybutynin). Discontinue pyridium. Discontinue Procrit - gets this through dialysis. Discontinue iron - gets this through dialysis. Begin midodrine 5 mg twice daily to help keep blood pressure up. Order placed for bone density study. Genet received flu vaccine today. I have recommended Dr. Favian Lomas in the event he may need a left hip revision. SAMANTHA Brito, was the medical lab scientist for today's note. I have performed all essential components of the history and physical exam, confirmed the diagnosis and developed a plan of care at this visit. I have reviewed the note at the visit and have added edits as appropriate to my evaluation andplan of care. [facility] Instructions* Patient Instructions* Sanchez Ying - 03/23/2024 3:30 PM EDT Assessment and Plan ICD-10-CM 1. Needs flu shot Z23 influenza high-dose split virus vaccine (FLUZONE HIGH- DOSE) injection 0.5 mL 2. Benign essential hypertension I10 3. Anemia in end-stage renal disease N18.6 D63.1 4. 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 Unable to navigate stairs due to hip pain. Discontinue Ditropan (oxybutynin). Discontinue pyridium. Discontinue Procrit - gets this through dialysis. Discontinue iron - gets this through dialysis. Begin midodrine 5 mg twice daily to help keep blood pressure up. Order placed for bone density study. Genet received flu vaccine today. I have recommended Dr. Favian Lomas in the event he may need a left hip revision. SAMANTHA Brito, was the medical lab scientist for today's note. I have performed all essential components of the history and physical exam, confirmed the diagnosis and developed a plan of care at this visit. I have reviewed the note at the visit and have added edits as appropriate to my evaluation andplan of care. [facility]* Janet Loza RN - 03/11/2024 10:20 AM EDT Spoke with Judy Stinson friend of patient to update with information regarding outpatient dialysis. Informed per KAREN Barry TCC that she has been attempting to contact [facility] for dialysis and will continue to follow-up to make sure patient has resumption of outpatient dialysis. This information was provided to Judy Stinson per telephone conversation. Judy verbalized understanding. [facility]10-10-2024 Nurse Note* Janet Loza RN - 03/11/2024 10:20 AM EDT Spoke with Judy Stinson friend of patient to update with information regarding outpatient dialysis. Informed per KAREN Barry TCC that she has been attempting to contact [facility] for dialysis and will continue to follow-up to make sure patient has resumption of outpatient dialysis. This information was provided to Judy Stinson per telephone conversation. Judy verbalized understanding. * Wendy Tristan RN - 03/11/2024 9:32 AM EDT Discharge Note: 03/11/2024 0926 AVS and pt responsibilities reviewed with pt and copy given. UTI education reviewed with pt and information sheets given. Pt verbalizes understanding of instructions received, verbalizes understanding of when to seek medical attention, denies any home going or personal care needs. Denies further questions or concerns. Reviewed follow up appts with pt and verbalizesunderstanding. Adrian PICKARD * Kaylah Iyer RN - 03/09/2024 11:[address] Bah aware of Iodinated Contrast Media allergy. Omnipaque to be used. documented [facility] Work Phone: [phone] Plan of care note* Care Plan - Alissa Oneill RN - 03/11/2024 10:11 AM EDT The patient's goals for the shift include pain controlled The clinical goals for the shift include transport home Over the shift, the patient did not make progress toward the following goals. Barriers to progression include Problem: Dialysis Goal: I will slow progression of end-stage renal disease through participating in dialysis 3 times a week Outcome: Progressing . Recommendations to address these barriers include Problem: Pain - Adult Goal: Verbalizes/displays adequate comfort level or baseline comfort level Outcome: Progressing . [facility]10-10-2024 Miscellaneous Notes* Care Plan - Alissa Oneill RN - 03/11/2024 10:11 AM EDT The patient's goals for the shift include pain controlled The clinical goals for the shift include transport home Over the shift, the patient did not make progress toward the following goals. Barriers to progression include Problem: Dialysis Goal: I will slow progression of end-stage renal disease through participating in dialysis 3 times a week Outcome: Progressing . Recommendations to address these barriers include Problem: Pain - Adult Goal: Verbalizes/displays adequate comfort level or baseline comfort level Outcome: Progressing . * Care Plan - Vivian Garcias RN - 03/11/2024 6:38 AM EDT The patient's goals for the shift include rest comfortably in bed The clinical goals for the shift include pain management, tolerate dialysis well In bed with shift. Respirations even and unlabored. Dialysis completed. No fluid removed. In pleasant mood. Is hoping to go home with home health today. Call light within reach, will continue to monitor. Problem: Skin Goal: Participates in plan/prevention/treatment measures Outcome: Progressing Goal: Prevent/manage excess moisture Outcome: Progressing Goal: Prevent/minimize sheer/friction injuries Outcome: Progressing Goal: Promote/optimize nutrition Outcome: Progressing Problem: Dialysis Goal: I will slow progression of end-stage renal disease through participating in dialysis 3 times a week Outcome: Progressing Problem: Pain - Adult Goal: Verbalizes/displays adequate comfort level or baseline comfort level Outcome: Progressing Problem: Safety - Adult Goal: Free from fall injury Outcome: Progressing Problem: Chronic Conditions and Co-morbidities Goal: Patient's chronic conditions and co-morbidity symptoms are monitored and maintained or improved Outcome: Progressing Problem: Infection related to problem list condition Goal: Infection will resolve through treatment Outcome: Progressing Problem: Infective UTI/pyelonephritis Goal: Manages/understands urgency, continence Outcome: Progressing Goal: No signs of neurosensory, musculoskeletal, cardiac changes Outcome: Progressing Goal: No worsening signs of infection Outcome: Progressing Goal: Stable weight and I&O Outcome: Progressing * Post-Procedure Note - Mcihele Yoon - 03/10/2024 10:55 PM EDT Report to Receiving RN: Report To: Vivian Link Report Called: [id number] Hand-Off Communication: No fluid removal BP 106/50 HR 74 Temp 37.1 Complications During Treatment: No Ultrafiltration Treatment: No, HD Medications Administered During Dialysis: No Blood Products Administered During Dialysis: No Labs Sent During Dialysis: No Heparin Drip Rate Changes: N/A Dialysis Catheter Dressing: New Dressing Last Dressing Change: 03/08/24 * Pre-Procedure Note - Michele Yoon - 03/10/2024 7:45 PM EDT Report from Sending RN: Report From: Vivian Recent Surgery of Procedure: No Baseline Level of Consciousness (LOC): Alert Oxygen Use: No Type: NA Diabetic: No Last BP Med Given Day of Dialysis: See MAR Last Pain Med Given: See MAR Lab Tests to be Obtained with Dialysis: No Blood Transfusion to be Given During Dialysis: No Available IV Access: Yes Medications to be Administered During Dialysis: No Continuous IV Infusion Running: No Restraints on Currently or in the Last 24 Hours: N/A Hand-Off Communication: Full Code Dialysis Catheter Dressing: New Dressing Last Dressing Change: 03/08/24 * Care Plan - Delmy Powell RN - 03/10/2024 8:35 AM EDT Problem: Skin Goal: Participates in plan/prevention/treatment measures Outcome: Progressing Goal: Prevent/manage excess moisture Outcome: Progressing Goal: Prevent/minimize sheer/friction injuries Outcome: Progressing Goal: Promote/optimize nutrition Outcome: Progressing Problem: Dialysis Goal: I will slow progression of end-stage renal disease through participating in dialysis 3 times a week Outcome: Progressing Problem: Pain - Adult Goal: Verbalizes/displays adequate comfort level or baseline comfort level Outcome: Progressing Problem: Safety - Adult Goal: Free from fall injury Outcome: Progressing Problem: Discharge Planning Goal: Discharge to home or other facility with appropriate resources Outcome: Progressing Problem: Chronic Conditions and Co-morbidities Goal: Patient's chronic conditions and co-morbidity symptoms are monitored and maintained or improved Outcome: Progressing Problem: Infection related to problem list condition Goal: Infection will resolve through treatment Outcome: Progressing Problem: Infective UTI/pyelonephritis Goal: Manages/understands urgency, continence Outcome: Progressing Goal: No signs of neurosensory, musculoskeletal, cardiac changes Outcome: Progressing Goal: No worsening signs of infection Outcome: Progressing Goal: Stable weight and I&O Outcome: Progressing The clinical goals for the shift include pain management, tolerate dialysis well * Perioperative Nursing Note - Tessy Alberto RN - 03/09/2024 12:24 PM EDT Catheter flushed with NS, small clot removed now draining clear red urine. * Op Note - John Bah MD - 03/09/2024 11:45 AM EDT Ureteroscopy (B), Cystoscopy with Insertion Stent Ureter (B), Cystoscopy with Retrograde Pyelogram (B) Operative Note Date: 03/05/2024 - 03/09/2024 OR Location: [facility] OR Name: Genet Booth, : 1945, Age: 79 y.o., , Sex: male Diagnosis Pre-op Diagnosis * Calculus of ureter [N20.1] * Urinary retention [R33.9] Post-op Diagnosis * Calculus of ureter [N20.1] * Urinary retention [R33.9] Procedures Ureteroscopy 54342 - [place] CYSTO W/URTROSCOPY&/PYELOSCOPY DX Cystoscopy with Insertion Stent Ureter 22618 - [place] CYSTO W/INSERT URETERAL STENT Cystoscopy with Retrograde Pyelogram 82096 - [facility] UROGRAPHY RETROGRADE WITH/WO KUB Surgeons * John Bah - Primary Resident/Fellow/Other Rn Oncology Clinical: Surgeons and Role: * No surgeons found with a matching role * Procedure Summary Anesthesia: General ASA: III Anesthesia Staff: Anesthesiologist: Calvin Banda DO Estimated Blood Loss: 0mL Intra-op Medications: Administrations occurring from 1200 to 1230 on 03/09/24: Medication Name Total Dose sodium chloride 0.9% infusion Cannot be calculated Anesthesia Record Intraprocedure I/O Totals Intake sodium chloride 0.9% infusion 350.00 mL Total Intake 350 mL Specimen: No specimens collected Staff: Technical Support Representative: Kaylah Hu Person: Desire Drains and/or Catheters: Urethral Catheter Latex 16 Fr. (Active) Site Assessment Clean;Skin intact 03/09/24 1208 Tourniquet Times: Implants: Implants Type Name Action Serial No. Shunt STENT, POLARIS ULTRA 5FR 24CM, DISPOSABLE - [id number] Implanted Indications: Genet Booth is an 79 y.o. male who is having surgery for Calculus of ureter [N20.1] Urinary retention [R33.9]. The patient was seen in the preoperative area. The risks, benefits, complications, treatment options, non-operative alternatives, expected recovery and outcomes were discussed with the patient. The possibilities of reaction to medication, pulmonary aspiration, injury to surrounding structures, bleeding, recurrent infection, the need for additional procedures, failure to diagnose a condition, and creating a complication requiring transfusion or operation were discussed with the patient. The patient concurred with the proposed plan, giving informed consent. The site of surgery was properly noted/marked if necessary per policy. The patient has been actively warmed in preoperative area. Preoperative diagnosis: hydronephrosis Postoperative diagnosis: Same Procedure: cystoscopy with Right RPG and ureteroscopy and Right stent change, left nephroectomy tube removal Physician: OLVIN Anesthesia: Gen. Estimated blood loss: None Indications and consent: The patient presents with known hydronephrosis. After the risks, benefits,alternatives, and indications of the procedure were explained to the patient they consented. Procedure: The patient was brought to the operating room and placed on the table in the supine position. After adequate anesthesia was obtained, the patient was prepped and draped in the standard surgical fashion. First, the cystoscope was inserted into the bladder. Formal cystoscopy was performed.The previously placed stent was seen and grasped and brought out. A guidewire was placed up the exis ting stent into the renal pelvis using X-Ray guidance. The stent was then removed. We then performed ureteroscopy with retrograde pyelogram. This did not show any evidence of mass or stone in the ureter. The retrograde pyelogram did show persistent hydronephrosis. At this point a new stent was placed over the existing guidewire. This was done under fluoroscopic vision. Proper positioning was confirmed.The patient tolerated the procedure well and there no complications. The left Nephrostomy tube was removed. Attending Attestation: I was present and scrubbed for the entire procedure. John Bah * Post-Procedure Note - Nile Owens RN - 03/08/2024 4:07 PM EDT Report to Receiving RN: Report To: Delmy Time Report Called: face to face report 1500 Hand-Off Communication: tx ended 36 minutes early d/t to machine issues; vss post; no s/s of distress post tx Complications During Treatment: Yes, machine issues Ultrafiltration Treatment: Yes, 650 ml Medications Administered During Dialysis: No Blood Products Administered During Dialysis: No Labs Sent During Dialysis: No Heparin Drip Rate Changes: No Dialysis Catheter Dressing: clean, dry and intact Last Dressing Change: 03/08/24 Electronic Signatures: Nile Owens RN (Signed CE) Last Updated: 4:07 PM by NILE OWENS * Care Plan - Delmy Powell RN - 03/08/2024 10:00 AM EDT Problem: Skin Goal: Participates in plan/prevention/treatment measures Outcome: Progressing Goal: Prevent/manage excess moisture Outcome: Progressing Goal: Prevent/minimize sheer/friction injuries Outcome: Progressing Goal: Promote/optimize nutrition Outcome: Progressing Problem: Dialysis Goal: I will slow progression of end-stage renal disease through participating in dialysis 3 times a week Outcome: Progressing Problem: Pain - Adult Goal: Verbalizes/displays adequate comfort level or baseline comfort level Outcome: Progressing Problem: Safety - Adult Goal: Free from fall injury Outcome: Progressing Problem: Discharge Planning Goal: Discharge to home or other facility with appropriate resources Outcome: Progressing Problem: Chronic Conditions and Co-morbidities Goal: Patient's chronic conditions and co-morbidity symptoms are monitored and maintained or improved Outcome: Progressing Problem: Infection related to problem list condition Goal: Infection will resolve through treatment Outcome: Progressing Problem: Infective UTI/pyelonephritis Goal: Manages/understands urgency, continence Outcome: Progressing Goal: No signs of neurosensory, musculoskeletal, cardiac changes Outcome: Progressing Goal: No worsening signs of infection Outcome: Progressing Goal: Stable weight and I&O Outcome: Progressing The clinical goals for the shift include pt will tolerate HD well with VSS * Pre-Procedure Note - Nile Owens RN - 03/08/2024 8:57 AM EDT Report from Sending RN: Report From: Delmy Recent Surgery of Procedure: No Baseline Level of Consciousness (LOC): a/o x3 Oxygen Use: No Type: RA Diabetic: No Last BP Med Given Day of Dialysis: See MAR Last Pain Med Given: See MAR Lab Tests to be Obtained with Dialysis: No Blood Transfusion to be Given During Dialysis: No Available IV Access: Yes Medications to be Administered During Dialysis: No Continuous IV Infusion Running: No Restraints on Currently or in the Last 24 Hours: No Hand-Off Communication: DNR Dialysis Catheter Dressing: tbd Last Dressing Change: tbd * Care Plan - Kimmy Hanna RN - 03/08/2024 3:32 AM EDT Problem: Skin Goal: Participates in plan/prevention/treatment measures Outcome: Progressing Goal: Prevent/manage excess moisture Outcome: Progressing Goal: Prevent/minimize sheer/friction injuries Outcome: Progressing Goal: Promote/optimize nutrition Outcome: Progressing Problem: Dialysis Goal: I will slow progression of end-stage renal disease through participating in dialysis 3 times a week Outcome: Progressing Problem: Pain - Adult Goal: Verbalizes/displays adequate comfort level or baseline comfort level Outcome: Progressing Problem: Safety - Adult Goal: Free from fall injury Outcome: Progressing Problem: Discharge Planning Goal: Discharge to home or other facility with appropriate resources Outcome: Progressing Problem: Chronic Conditions and Co-morbidities Goal: Patient's chronic conditions and co-morbidity symptoms are monitored and maintained or improved Outcome: Progressing Problem: Infection related to problem list condition Goal: Infection will resolve through treatment Outcome: Progressing Problem: Infective UTI/pyelonephritis Goal: Manages/understands urgency, continence Outcome: Progressing Goal: No signs of neurosensory, musculoskeletal, cardiac changes Outcome: Progressing Goal: No worsening signs of infection Outcome: Progressing Goal: Stable weight and I&O Outcome: Progressing The patient's goals for the shift include The clinical goals for the shift include Patient will sleep well this shift. * Care Plan - Vivian Garcias RN - 03/07/2024 7:48 AM EDT The patient's goals for the shift include rest comfortably in bed The clinical goals for the shift include labs wnl by eos Pleasant patient who is alert and oriented. Respirations even and unlabored. Denies pain. No issuesnoted. Call light within reach, will continue to monitor. Problem: Skin Goal: Participates in plan/prevention/treatment measures Outcome: Progressing Goal: Prevent/manage excess moisture Outcome: Progressing Goal: Prevent/minimize sheer/friction injuries Outcome: Progressing Goal: Promote/optimize nutrition Outcome: Progressing Problem: Dialysis Goal: I will slow progression of end-stage renal disease through participating in dialysis 3 times a week Outcome: Progressing Problem: Pain - Adult Goal: Verbalizes/displays adequate comfort level or baseline comfort level Outcome: Progressing Problem: Safety - Adult Goal: Free from fall injury Outcome: Progressing Problem: Discharge Planning Goal: Discharge to home or other facility with appropriate resources Outcome: Progressing Problem: Chronic Conditions and Co-morbidities Goal: Patient's chronic conditions and co-morbidity symptoms are monitored and maintained or improved Outcome: Progressing Problem: Infection related to problem list condition Goal: Infection will resolve through treatment Outcome: Progressing Problem: Infective UTI/pyelonephritis Goal: Manages/understands urgency, continence Outcome: Progressing Goal: No signs of neurosensory, musculoskeletal, cardiac changes Outcome: Progressing Goal: No worsening signs of infection Outcome: Progressing Goal: Stable weight and I&O Outcome: Progressing * Care Plan - Félix Nixon RN - 03/06/2024 1:26 PM EDT The patient's goals for the shift include feel better The clinical goals for the shift include labs wnl by eos Over the shift, the patient did not make progress toward the following goals. Barriers to progression include dialysis. Recommendations to address these barriers include . documented in this [facility] Work Phone: [phone] Nurse Note* Wendy Tristan RN - 03/11/2024 9:32 AM EDT Discharge Note: 03/11/2024 0926 AVS and pt responsibilities reviewed with pt and copy given. UTI education reviewed with pt and information sheets given. Pt verbalizes understanding of instructions received, verbalizes understanding of when to seek medical attention, denies any home going or personal care needs. Denies further questions or concerns. Reviewed follow up appts with pt and verbalizesunderstanding. Adrian PICKARD [facility]10-10-2024 History of Present illness Narrative * John Ballesteros PharmD - 03/11/2024 9:20 AM EDT Medication Education Medication education for Genet Booth was provided to the patient for the following medication(s): Invanz Medication education provided by a Pharmacist: ADR Counseling Medication interactions Dose, frequency, storage How to take and what to do if a dose is missed Proper dose, indication, possible ADRs How the medication works and benefits of taking it Benefits of taking the medication Importance of compliance Necessary labs and/or other monitoring Any drug interactions (including OTCs and herbvals) and importance of notifying a healthcare provider of any medication changes Potential duration of therapy Identified potential barriers to education: None Method(s) of Education: Verbal Written materials provided and reviewed An opportunity to ask questions and receive answers was provided. Assessment of understanding the patient : 2= meets goals/outcomes Additional Notes (if applicable): - Advised patient to have antibiotic administered after his dialysis sessions MWF; he states his chair time usually runs about 3-4 hours and would like be ready for administration mid-afternoon (3-4 PM) - Patient does have services established to ensure proper administration of IV antibiotics - Patient noted that he was having some diarrhea; advised him to start BID acidophilus regimen and to continue for duration of antibiotic course to help restore normal GI sunny John Ballesteros PharmD BCPS * Raf Duval RRT - 03/10/2024 11:07 PM EDT Pt refused his CPAP. Will call if needed. RN is aware. * XIMENA Kim - 03/10/2024 2:25 PM EDT Insulation Hoseman has spent time on this case over the course of the day today. Per medical team, patient's hemodialysis treatment will not be completed until later this evening, so patient will discharge home tomorrow morning rather than today. SW left a message for patient's caregiver/Kj and awaits a return call. SW had spoken to Kj earlier in the day; Caregiver/Kj confirmed that Kj can be available for delivery of IV Ertapenem from [facility] when they call caregiver/Kj to arrange a time. SW attached/sent updated notes to [facility] via [employer], and [facility] confirmed that they willarrange delivery of medication with caregiver/Kj. SW attached/sent updates [facility] via [employer], and will send orders when complete. Nursing plans to arrange transport for 1000 tomorrow 03/11. Plan is for patient to discharge home when medically ready, with [facility], services resuming through [facility], and new services to be arranged through patient's new [employer]/Leona Powell (ph. [phone]; fax [phone].). Care Transitions to followand assist. XIMENA Parker * Tiana De León DO - 03/10/2024 9:20 AM EDT Genet Booth is a 79 y.o. male on day 5 of admission presenting with Pyelonephritis. Subjective Patient seen and examined at the bedside this morning He is resting comfortably in bed He states he is feeling well and has no major complaints Objective Vitals 24HR Heart Rate: [74-90] Temp: [36.5 C (97.7 F)-37 C (98.6 F)] Resp: [15-25] BP: (110-137)/(46-77) Weight: [99 kg (218 lb 4.1 oz)] SpO2: [91 %-98 %] Intake/Output last 3 Shifts: Intake/Output Summary (Last 24 hours) at 03/10/2024 0920 Last data filed at 03/10/2024 0900 Gross per 24 hour Intake 920 ml Output 375 ml Net 545 ml Physical Exam Constitutional: Appearance: Normal appearance. He is obese. HENT: Head: Normocephalic and atraumatic. Right Ear: External ear normal. Left Ear: External ear normal. Nose: Nose normal. Mouth/Throat: Mouth: Mucous membranes are moist. Pharynx: Oropharynx is clear. Eyes: Extraocular Movements: Extraocular movements intact. Conjunctiva/sclera: Conjunctivae normal. Pupils: Pupils are equal, round, and reactive to light. Neck: Comments: Right internal jugular tunneled dialysis catheter present Cardiovascular: Rate and Rhythm: Normal rate and regular rhythm. Pulmonary: Effort: Pulmonary effort is normal. Breath sounds: Normal breath sounds. Abdominal: General: Abdomen is flat. Palpations: Abdomen is soft. Genitourinary: Comments: Urinary catheter present Musculoskeletal: Comments: Right upper extremity AV fistula Left upper extremity PICC line present Skin: General: Skin is warm and dry. Neurological: General: No focal deficit present. Mental Status: He is alert and oriented to person, place, and time. Psychiatric: Mood and Affect: Mood normal. Behavior: Behavior normal. Relevant Results Assessment/Plan Assessment & Plan Pyelonephritis Urinary retention Calculus of ureter Chronic kidney disease stage V Anemia Hypertension Bilateral hydronephrosis with right stent in place ESBL E. coli UTI Plan: Dialysis today Orders have been written He will finish out a course of antibiotics for his ESBL Once dialysis is completed from my standpoint he can be discharged to home Please call with any further issues or needs He will be getting his dialysis in [facility] and this has already been set up for him as an outpatient Tiana De León DO * Daily Coates DO - 03/09/2024 5:38 PM EDT Subjective Patient states to feel groggy and is in some discomfort from his nephrostomy tube removal today. Overnight Events: None Objective Vital Signs: Blood pressure (!) 112/46, pulse 89, temperature 36.9 C (98.4 F), temperature source Temporal, resp. rate 18, height 1.803 m (5' 10.98), weight 98.7 kg (217 lb 9.5 oz), SpO2 93%. Physical Exam Constitutional: Appearance: Normal appearance. He is obese. HENT: Head: Normocephalic and atraumatic. Mouth/Throat: Mouth: Mucous membranes are moist. Eyes: Extraocular Movements: Extraocular movements intact. Conjunctiva/sclera: Conjunctivae normal. Cardiovascular: Rate and Rhythm: Normal rate and regular rhythm. Pulses: Normal pulses. Heart sounds: Normal heart sounds. Pulmonary: Effort: Pulmonary effort is normal. Breath sounds: Normal breath sounds. Abdominal: General: Abdomen is flat. Bowel sounds are normal. Palpations: Abdomen is soft. Skin: General: Skin is warm. Neurological: General: No focal deficit present. Mental Status: He is alert and oriented to person, place, and time. Motor: Weakness present. Psychiatric: Mood and Affect: Mood normal. Behavior: Behavior normal. Thought Content: Thought content normal. Wt Readings from Last 6 Encounters: 03/09/24 98.7 kg (217 lb 9.5 oz) 02/09/24 100 kg (221 lb 6.4 oz) 12/15/23 96.2 kg (212 lb) 09/19/23 96.2 kg (212 lb) 06/12/23 97.5 kg (215 lb) 05/30/23 105 kg (231 lb) I/Os Intake/Output Summary (Last 24 hours) at 03/09/2024 1739 Last data filed at 03/09/2024 1600 Gross per 24 hour Intake 470 ml Output 210 ml Net 260 ml Labs: Results for orders placed or performed during the hospital encounter of 03/05/24 (from the past 24 hour(s)) Hepatitis B surface antigen Result Value Ref Range Hepatitis B Surface AG Nonreactive Nonreactive CBC Result Value Ref Range WBC 6.2 4.4 - 11.3 x10*3/uL nRBC 0.0 0.0 - 0.0 /100 WBCs RBC 3.02 (L) 4.50 - 5.90 x10*6/uL Hemoglobin 9.1 (L) 13.5 - 17.5 g/dL Hematocrit 29.7 (L) 41.0 - 52.0 % MCV 98 80 - 100 fL MCH 30.1 26.0 - 34.0 pg MCHC 30.6 (L) 32.0 - 36.0 g/dL RDW 15.1 (H) 11.5 - 14.5 % Platelets 279 150 - 450 x10*3/uL Renal Function Panel Result Value Ref Range Glucose 87 74 - 99 mg/dL Sodium 140 136 - 145 mmol/L Potassium 3.7 3.5 - 5.3 mmol/L Chloride 103 98 - 107 mmol/L Bicarbonate 26 21 - 32 mmol/L Anion Gap 15 10 - 20 mmol/L Urea Nitrogen 29 (H) 6 - 23 mg/dL Creatinine 4.12 (H) 0.50 - 1.30 mg/dL eGFR 14 (L) >60 mL/min/1.73m*2 Calcium 8.6 8.6 - 10.3 mg/dL Phosphorus 4.5 2.5 - 4.9 mg/dL Albumin 3.2 (L) 3.4 - 5.0 g/dL Magnesium Result Value Ref Range Magnesium 2.01 1.60 - 2.40 mg/dL Imaging: FL fluoro images no charge Result Date: 03/09/2024 These images are not reportable by radiology and will not be interpreted by Radiologists. Medications: Current Facility-Administered Medications: acetaminophen (Tylenol) tablet 650 mg, 650 mg, oral, q4h PRN, Daily Coates DO, 650 mg at 03/05/24 1534 alteplase (Cathflo Activase) injection 2 mg, 2 mg, intra-catheter, PRN, Daily Coates DO bisacodyl (Dulcolax) EC tablet 10 mg, 10 mg, oral, Daily PRN, Daily Coates DO, 10 mg at 634 ertapenem (INVanz) 500 mg in sodium chloride 0.9% 50 mL IV, 500 mg, intravenous, q24h, Daily Coates DO heparin (porcine) injection 5,000 Units, 5,000 Units, subcutaneous, q8h, Daily Coates DO, 5,000 Units at 03/09/24 1353 heparin 1,000 unit/mL injection 2,000 Units, 2,000 Units, intra-catheter, After Dialysis, Daily Coates DO, 2,000 Units at 03/08/24 1500 [START ON 03/10/2024] heparin 1,000 unit/mL injection 2,000 Units, 2,000 Units, intra-catheter, After Dialysis, Daily Coates DO [START ON 03/10/2024] heparin 1,000 unit/mL injection 2,000 Units, 2,000 Units, intra-catheter, After Dialysis, Daily Coates DO levothyroxine (Synthroid, Levoxyl) tablet 88 mcg, 88 mcg, oral, Daily before breakfast, Daily Coates DO, 88 mcg at 03/09/24 1353 lidocaine PF (Xylocaine) 10 mg/mL (1 %) injection 50 mg, 5 mL, infiltration, Once, Daily Coates DO lubricating eye drops ophthalmic solution 2 drop, 2 drop, Both Eyes, BID, Daily Coates DO, 2 drop at 03/09/24 1352 ondansetron (Zofran) injection 4 mg, 4 mg, intravenous, q8h PRN, Daily Coates DO oxybutynin (Ditropan) tablet 5 mg, 5 mg, oral, BID, Daily Coates DO, 5 mg at 03/09/24 1353 oxyCODONE (Roxicodone) immediate release tablet 5 mg, 5 mg, oral, q6h PRN, Daily Coates DO, 5 mgat 03/09/24 1353 oxygen (O2) therapy, , inhalation, Continuous PRN - O2/gases, Daily Coates DO, 21 percent at 03/07/24 1115 polyethylene glycol (Glycolax, Miralax) packet 17 g, 17 g, oral, Daily, Daily Coates DO, 17 g at1 1123 simethicone (Mylicon) chewable tablet 160 mg, 160 mg, oral, q8h PRN, Daily Coates DO Assessment & Plan Genet Booth is a 79 y.o. male admitted to [facility] for management of: Right pyelonephritis, ESBL E. Coli: CT obtained from [place] is not available for review. CT abdomen & pelvis obtained here and did not reveal findings suggestive of pyelonephritis. Urinalysis is suggestive of UTI. Received IV Zosyn up until 03/08. He was started on ertapenem today and it will be continued on discharge. Moderate Right Hydronephrosis: CT scan comments on interval development of hydronephrosis with transition at the [facility]. 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 No urgent need for dialysis. Nephrology consulted for HD, to receive HD tomorrow Chronic Indwelling Jamison: Replaced on admission, minimal urine output Mild hyperkalemia: Resolved. Generalized weakness: PT/OT following Continue home medications for chronic medical conditions. Disposition: Anticipate discharge tomorrow in 1-2 days Moderate level of MDM Daily Coates DO Internal Medicine * Tiana Paula De León DO - 03/09/2024 12:29 PM EDT Genet Booth is a 79 y.o. male on day 4 of admission presenting with Pyelonephritis. Subjective Patient seen and examined He had his stent replaced. His nephrostomy tube was taken out A fresh Jamison catheter was placed in the operating room Objective Vitals 24HR Heart Rate: [74-92] Temp: [36.5 C (97.7 F)-37.2 C (99 F)] Resp: [15-25] BP: (109-142)/(47-64) Weight: [98.7 kg (217 lb 9.5 oz)] SpO2: [91 %-98 %] Intake/Output last 3 Shifts: Intake/Output Summary (Last 24 hours) at 03/09/2024 1229 Last data filed at 03/09/2024 1206 Gross per 24 hour Intake 1000 ml Output 2485 ml Net -1485 ml Physical Exam Constitutional: Appearance: Normal appearance. He is obese. HENT: Head: Normocephalic and atraumatic. Right Ear: External ear normal. Left Ear: External ear normal. Nose: Nose normal. Mouth/Throat: Mouth: Mucous membranes are moist. Pharynx: Oropharynx is clear. Eyes: Extraocular Movements: Extraocular movements intact. Conjunctiva/sclera: Conjunctivae normal. Pupils: Pupils are equal, round, and reactive to light. Neck: Comments: Right internal jugular tunneled dialysis catheter present Cardiovascular: Rate and Rhythm: Normal rate and regular rhythm. Pulmonary: Effort: Pulmonary effort is normal. Breath sounds: Normal breath sounds. Abdominal: General: Abdomen is flat. Palpations: Abdomen is soft. Genitourinary: Comments: Urinary catheter present Musculoskeletal: Comments: Right upper extremity AV fistula Skin: General: Skin is warm and dry. Neurological: General: No focal deficit present. Mental Status: He is alert and oriented to person, place, and time. Psychiatric: Mood and Affect: Mood normal. Behavior: Behavior normal. Scheduled medications [Transfer Hold] ertapenem, 500 mg, intravenous, q24h [Transfer Hold] heparin (porcine), 5,000 Units, subcutaneous, q8h [Transfer Hold] heparin, 2,000 Units, intra-catheter, After Dialysis [Transfer Hold] heparin, 2,000 Units, intra-catheter, After Dialysis [Transfer Hold] levothyroxine, 88 mcg, oral, Daily before breakfast [Transfer Hold] lidocaine, 5 mL, infiltration, Once [Transfer Hold] lubricating eye drops, 2 drop, Both Eyes, BID [Transfer Hold] oxybutynin, 5 mg, oral, BID [Transfer Hold] polyethylene glycol, 17 g, oral, Daily Continuous medications sodium chloride 0.9%, 20 mL/hr, Last Rate: 20 mL/hr (03/09/24 1124) sodium chloride 0.9%, 50 mL/hr PRN medications PRN medications: [Transfer Hold] acetaminophen, [Transfer Hold] alteplase, [Transfer Hold] bisacodyl, HYDROmorphone, HYDROmorphone, [Transfer Hold] ondansetron, ondansetron, [Transfer Hold] oxyCODONE, oxyCODONE, oxygen, oxygen, promethazine, [Transfer Hold] simethicone Relevant Results Assessment/Plan This patient has a central line Reason for the central line remaining today? Dialysis/Hemapheresis Assessment & Plan Pyelonephritis Urinary retention Calculus of ureter Chronic kidney disease stage V Anemia Hypertension Bilateral hydronephrosis with right stent in place ESBL E. coli UTI Plan: He is on ertapenem and I would continue this to finish out his course for his ESBL UTI We will order dialysis for tomorrow From my standpoint when social work has been able to set up his needs as an outpatient he can be ready for discharge While he is here we will perform dialysis but clinically he seems to be improving and responding well to treatment Tiana De eLón DO * Norma Curry OT - 03/09/2024 11:35 AM EDT Occupational Therapy Therapy Communication Note Patient Name: Genet Booth Department: [facility] Room: [facility] Today's Date: 03/09/2024 Discipline: Occupational Therapy Missed Visit Reason: Missed Visit Reason: Patient in a medical procedure (pt in OR) * Asha Delvalle RN - 03/09/2024 9:20 AM EDT Care Transitions: Referral checked via Careport on infusion pharmacy. unable to accept patient due to out of service area. Referral sent to [facility] pharmacy via [facility] for IV Atb needed at home. Asha Delvalle RN/TCC -[phone] Patient reviewed in care round meeting this AM and is not medically ready for discharge. He is in a procedure this AM with Dr. Bah. Called [facility] on [facility] 9 @ . Verified patient passport case coordinator name is actually Leona Powell, ph: [phone] fax: [phone]. Spoke to PP CM Leona, updated on admission date and diagnosis. 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 Leona states she is working on finding patient an aid for his personal care hours. His care plan was sent out to all passport providing agencies in his area and his caregiver Kj was giventhe independent provider aid list to contact. Leona is hopeful to provide aid services through [facility] when staff is available. This TCC also called several home care agencies in [facility], and [place] in attempt to find an agency to provide passport hours. Patientis either out of service area or not enough staff. Leona will continue to search for agency to assist patient and fullfill his approved hours. Leona requests to be notified of discharge and discharge orders/summary be faxed to her. Asha Delvalle RN/TCC -[phone] Met with patient at bedside. Updated on Passport CM notified of admission and she is continuing to search for an agency. Discharge plan remains home, resume HHC and dialysis. Patient states he [facility] due to needing assistance into his home. Asha Delvalle RN/TCC -[phone] [facility] pharmacy able to accept patient and provide IV ATB and supplies. Requesting a written script with a wet signature and include continuous infusion since medication will be given via elastomeric pump. Dr Coates notified of needed prescription. Asha Delvalle RN/TCC -[phone] Written IV ATB prescription received from hospital provider and uploaded to [facility]. Sent Rx, Picc line insertion notes, and chart note updates to [facility] infusion and [facility]. Patient is scheduled for dialysis tomorrow and may possibly be ready for discharge to home after treatment if IV ATB delivered to patient home. [facility] updated on ADOD as well. Spoke to patient caregiver Kj Green @ [phone]. Updated on ADOD. Kj would like to be notified when ATB will be delivered to patient home so he can ensure someone is there. He requests to be notified when patient isdischarged to home as well so he can be there when he arrives. Patient will need transportation setup when discharged. Patient PCP Dr Hernandez will be following home care orders for [facility]. Asha Delvalle RN/TCC -[phone] Met with patient at bedside. Updated on [facility] acceptance / anticipated IV ATB delivery for tomorrow to patient home. Discussed Living will /POA; provided with paperwork to fill out per request. Patient will likely take paperwork home to fill out and add caregiver Kj as a POA after theydiscuss together. Care team to follow. Asha Delvalle RN/TCC * Daily Coates, - 03/08/2024 1:49 PM EDT Subjective Patient states to feel back to normal today. Will have dialysis today. Overnight Events: None Objective Vital Signs: Blood pressure 105/59, pulse 87, temperature 36 C (96.8 F), temperature source Temporal, resp. rate12, height 1.803 m (5' 10.98), weight 102 kg (224 lb 10.4 oz), SpO2 92%. Physical Exam Constitutional: Appearance: Normal appearance. He is obese. HENT: Head: Normocephalic and atraumatic. Mouth/Throat: Mouth: Mucous membranes are moist. Eyes: Extraocular Movements: Extraocular movements intact. Conjunctiva/sclera: Conjunctivae normal. Cardiovascular: Rate and Rhythm: Normal rate and regular rhythm. Pulses: Normal pulses. Heart sounds: Normal heart sounds. Pulmonary: Effort: Pulmonary effort is normal. Breath sounds: Normal breath sounds. Abdominal: General: Abdomen is flat. Bowel sounds are normal. Palpations: Abdomen is soft. Skin: General: Skin is warm. Neurological: General: No focal deficit present. Mental Status: He is alert and oriented to person, place, and time. Motor: Weakness present. Psychiatric: Mood and Affect: Mood normal. Behavior: Behavior normal. Thought Content: Thought content normal. Wt Readings from Last 6 Encounters: 03/08/24 102 kg (224 lb 10.4 oz) 02/09/24 100 kg (221 lb 6.4 oz) 12/15/23 96.2 kg (212 lb) 09/19/23 96.2 kg (212 lb) 06/12/23 97.5 kg (215 lb) 05/30/23 105 kg (231 lb) I/Os Intake/Output Summary (Last 24 hours) at 03/08/2024 1350 Last data filed at 03/08/2024 1330 Gross per 24 hour Intake 1210 ml Output 1475 ml Net -265 ml Labs: Results for orders placed or performed during the hospital encounter of 03/05/24 (from the past 24 hour(s)) CBC Result Value Ref Range WBC 6.9 4.4 - 11.3 x10*3/uL nRBC 0.0 0.0 - 0.0 /100 WBCs RBC 2.88 (L) 4.50 - 5.90 x10*6/uL Hemoglobin 8.8 (L) 13.5 - 17.5 g/dL Hematocrit 28.1 (L) 41.0 - 52.0 % MCV 98 80 - 100 fL MCH 30.6 26.0 - 34.0 pg MCHC 31.3 (L) 32.0 - 36.0 g/dL RDW 15.0 (H) 11.5 - 14.5 % Platelets 272 150 - 450 x10*3/uL Renal Function Panel Result Value Ref Range Glucose 84 74 - 99 mg/dL Sodium 139 136 - 145 mmol/L Potassium 4.0 3.5 - 5.3 mmol/L Chloride 103 98 - 107 mmol/L Bicarbonate 25 21 - 32 mmol/L Anion Gap 15 10 - 20 mmol/L Urea Nitrogen 60 (H) 6 - 23 mg/dL Creatinine 6.80 (H) 0.50 - 1.30 mg/dL eGFR 8 (L) >60 mL/min/1.73m*2 Calcium 8.4 (L) 8.6 - 10.3 mg/dL Phosphorus 5.2 (H) 2.5 - 4.9 mg/dL Albumin 3.1 (L) 3.4 - 5.0 g/dL Magnesium Result Value Ref Range Magnesium 2.09 1.60 - 2.40 mg/dL Imaging: No results found. Medications: Current Facility-Administered Medications: acetaminophen (Tylenol) tablet 650 mg, 650 mg, oral, q4h PRN, Daily Coates DO, 650 mg at 03/05/24 1534 bisacodyl (Dulcolax) EC tablet 10 mg, 10 mg, oral, Daily PRN, Daily Coates DO, 10 mg at 634 [START ON 03/09/2024] ertapenem (INVanz) 500 mg in sodium chloride 0.9% 50 mL IV, 500 mg, intravenous, q24h, Tiana De León DO heparin (porcine) injection 5,000 Units, 5,000 Units, subcutaneous, q8h, Daily Coates DO, 5,000 Units at 03/08/24 1314 [START ON 03/09/2024] heparin 1,000 unit/mL injection 2,000 Units, 2,000 Units, intra-catheter, After Dialysis, Daily Coates DO [START ON 03/09/2024] heparin 1,000 unit/mL injection 2,000 Units, 2,000 Units, intra-catheter, After Dialysis, Tiana De León DO levothyroxine (Synthroid, Levoxyl) tablet 88 mcg, 88 mcg, oral, Daily before breakfast, Daily Coates DO, 88 mcg at 03/08/24 0634 lubricating eye drops ophthalmic solution 2 drop, 2 drop, Both Eyes, BID, Daily Coates DO, 2 drop at 03/08/24 0819 ondansetron (Zofran) injection 4 mg, 4 mg, intravenous, q8h PRN, Daily Coates DO oxybutynin (Ditropan) tablet 5 mg, 5 mg, oral, BID, Daily Coates DO, 5 mg at 03/08/24 0819 oxyCODONE (Roxicodone) immediate release tablet 5 mg, 5 mg, oral, q6h PRN, Daily Coates DO oxygen (O2) therapy, , inhalation, Continuous PRN - O2/gases, Emily Bustillos MD, 21 percent at 03/07/24 1115 polyethylene glycol (Glycolax, Miralax) packet 17 g, 17 g, oral, Daily, Daily Coates DO, 17 g at1 1123 simethicone (Mylicon) chewable tablet 160 mg, 160 mg, oral, q8h PRN, Daily Coates DO Assessment & Plan Genet Booth is a 79 y.o. male admitted to [facility] for management of: Right pyelonephritis, ESBL E. Coli: CT obtained from [place] is not available for review. CT abdomen & pelvis obtained here and did not reveal findings suggestive of pyelonephritis. Urinalysis is suggestive of UTI. Received IV Zosyn up until 03/08. He was started on ertapenem today and it will be continued on discharge. Moderate Right Hydronephrosis: CT scan comments on interval development of hydronephrosis with transition at the [facility]. Urology consulted ESRD on HD (M/W/F): Currently appears euvolemic. No urgent need for dialysis. Nephrology consulted for HD, to receive HD today. Chronic Indwelling Jamison: Replaced on admission, minimal urine output Mild hyperkalemia: Resolved. Generalized weakness: PT/OT following Continue home medications for chronic medical conditions. Disposition: Anticipate discharge tomorrow. Moderate level of MDM Daily Coates DO Internal Medicine * Norma Curry OT - 03/08/2024 1:03 PM EDT Occupational Therapy Evaluation Patient Name: Genet Booth Today's Date: 03/08/2024 Time Calculation Start Time: 925 Stop Time: 940 Time Calculation (min): 15 min 320/320-A Assessment IP OT Assessment OT Assessment: pt is seen prior to dialysis. pt states that he is significantly more tired and weakafter dialysis. pt needing increased assist for ADLs due to c/o dizziness secondary to recent dx oforthostatic hypotension. pt also with deficits in activity tolerance and strength. recommend skilled OT services in order to ensure safe transition home. Prognosis: Good Barriers to Discharge: Inaccessible home environment, Decreased caregiver support Evaluation/Treatment Tolerance: Patient limited by fatigue Medical Staff Made Aware: Yes End of Session Communication: Bedside nurse End of Session Patient Position: Bed, 3 rail up, Alarm on (pt preparing for dialysis) Plan: Treatment Interventions: ADL retraining, Functional transfer training, UE strengthening/ROM, Neuromuscular reeducation, Patient/family training, Equipment evaluation/education, Endurance training, Compensatory technique education OT Frequency: 3 times per week OT Discharge Recommendations: Moderate intensity level of continued care, Other (Comment) (increased assist in pt's home) Equipment Recommended upon Discharge: (elevated toilet seat) OT Recommended Transfer Status: Assist of 1 OT - OK to Discharge: Yes (once medically stable) Subjective Current Problem: 1. Pyelonephritis General: General Reason for Referral: 79 year old male who was transferred from [facility] for pyelonephritis Referred By: Jaxon Past Medical History Relevant to Rehab: HTN, metabolic syndrome, prostate cancer, UTI, dialysis, ESRD. Family/Caregiver Present: No Prior to Session Communication: Bedside nurse Patient Position Received: Up in bathroom (student nurse present. pt is requesting assist for toileting hygiene and unable to complete independently) General Comment: pt agreeable to assessment Precautions: Medical Precautions: Fall precautions (nephrostomy, dialysis cath) Pain: Pain Assessment Pain Assessment: 0-10 0-10 (Numeric) Pain Score: (pt c/o general pain all over but point to left side abdomen) Objective Cognition: Overall Cognitive Status: Within Functional Limits Orientation Level: Oriented X4 Home Living: Type of Home: House (2 story) Lives With: Alone Home Adaptive Equipment: Walker rolling or standard, Wheelchair-manual, Hospital bed Home Layout: Two level, Laundry in basement, Full bath main level, Able to live on main level with bedroom/bathroom, Stairs to alternate level with rails Home Access: Stairs to enter with rails Entrance Stairs-Number of Steps: 6 Bathroom Shower/Tub: Tub/shower unit (pt currently sponge bathing because of port) Bathroom Toilet: Adaptive toilet seating, Other (Comment) (rails) Prior Function: Level of [place]: Needs assistance with ADLs, Needs assistance with homemaking, Needs assistance with functional transfers (Usually independent with bed mobility (has hospital bed), transfers, and household gait with walker; however requires breaks and was recommended to have friend their whenmobile due to low BP.) Receives Help From: Friends (Patient lives alone but has friend come in to help with cooking, cleaning, driving. Qualifies for a home health aide but has been unable to find one. Has done home PT previously.) ADL Assistance: Needs assistance (pt states he needs assist with lower body bathing and dressing and is currently pursuing a home health aid) Ambulatory Assistance: Independent (ND with [facility] but has been at SNF) Prior Function Comments: pt states he has been at SNF for 11 months. pt states he is able to perform all upper body ADLs, but lower body ADLs are difficult and he currently needs assist ADL: Eating Assistance: Independent Grooming Assistance: Independent Bathing Assistance: Moderate UE Dressing Assistance: Stand by LE Dressing Assistance: Moderate Toileting Assistance with Device: Maximal Toileting Deficit: Urinary Catheter Activity Tolerance: Endurance: Decreased tolerance for upright activites Bed Mobility/Transfers: Bed Mobility Bed Mobility: Yes Bed Mobility 1 Bed Mobility 1: Sitting to supine Level of Assistance 1: Close supervision Transfers Transfer: Yes Transfer 1 Transfer From 1: Sit to Transfer to 1: Stand Technique 1: Sit to stand Transfer Device 1: Walker, Gait belt Transfer Level of Assistance 1: Contact guard Trials/Comments 1: pt reports that he was recently dx with orthostaic hypotension and that his vision will go white for a few minutes and 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 Ambulation/Gait Training: Functional Mobility Functional Mobility Performed: Yes Functional Mobility 1 Surface 1: Level tile Device 1: Rolling walker Functional Mobility Support Devices: Gait belt Assistance 1: Contact guard Comments 1: quick fatigue Vision: Vision - Basic Assessment Current Vision: Wears glasses only for reading Sensation: Light Touch: No apparent deficits Strength: Strength Comments: BUKarl WFL Outcome Measures: [facility] Daily Activity Putting on and taking off regular lower body clothing: A lot Bathing (including washing, rinsing, drying): A lot Putting on and taking off regular upper body clothing: A little Toileting, which includes using toilet, bedpan or urinal: A lot Taking care of personal grooming such as brushing teeth: None Eating Meals: None Daily Activity - Total Score: 17 EDUCATION: Education Documentation Body Mechanics, taught by Norma Curry OT at 03/08/2024 1:02 PM. Learner: Patient Readiness: Acceptance Method: Explanation, Demonstration Response: Demonstrated Understanding, Needs Reinforcement Handouts, taught by Norma Curry OT at 03/08/2024 1:02 PM. Learner: Patient Readiness: Acceptance Method: Explanation, Demonstration Response: Demonstrated Understanding, Needs Reinforcement Precautions, taught by Norma Curry OT at 03/08/2024 1:02 PM. Learner: Patient Readiness: Acceptance Method: Explanation, Demonstration Response: Demonstrated Understanding, Needs Reinforcement ADL Training, taught by Norma Curry OT at 03/08/2024 1:02 PM. Learner: Patient Readiness: Acceptance Method: Explanation, Demonstration Response: Demonstrated Understanding, Needs Reinforcement Education Comments No comments found. Goals: Encounter Problems Encounter Problems (Active) ADLs Patient will perform UB and LB bathing with stand by assist level of assistance. (Progressing) Start: 03/08/24 Expected End: 03/22/24 Patient with complete lower body dressing with stand by assist level of assistance (Progressing) Start: 03/08/24 Expected End: 03/22/24 Patient will complete toileting including hygiene clothing management/hygiene with stand by assist level of assistance. (Progressing) Start: 03/08/24 Expected End: 03/22/24 BALANCE Pt will maintain dynamic standing balance during ADL task with stand by assist level of assistance in order to demonstrate decreased risk of falling and improved postural control. (Progressing) Start: 03/08/24 Expected End: 03/22/24 * Asha Delvalle RN - 03/08/2024 11:03 AM EDT Care Transitions: Patient reviewed in care round meeting this AM. ADOD 24 hours. Met with patient at bedside. Currently receiving dialysis treatment. Discussed discharge plan and decreased mobility. Denies the need for SNF. States his discharge plan remains to return home and resume [facility] services and dialysis. He receives dialysis on at [facility] in [place] with chair time of 1100. Demographics/contacts verified. He resides in a 2 story home but now has a hospital bed on the first floor with a first floor bathroom as well. He also has a Rollator walker and wheelchair to use. States he was recently approved for 21 hours a week for personal home care through [employer] services. Heis unsure who his PP case coordinator is since services have not started yet. He does have friends on his contact list that have been helping him until PP services start. He will transportation home whendischarged. Permission given to call his friend or August on his contact list to update discharge plans. Medicare IMM reviewed, patient signed, copy provided, original placed in chart. Voiced understanding. Asha Delvalle RN/TCC - [phone] Coates and Dr. Gonzalez chart notes. Confirmed with providers that patient will need IV ATB Ertapenem for 7 days. Received first dose today. Spoke to Tavia Singh at [facility] to confirm they will be sukhjinder to provide IV ATB needs in the home. Patient will likely need five days infused at home to complete treatment. He will be required to have a midline/picc placed for home care to access. Will send referral to infusion pharmacy when script available. Asha Delvalle RN/TCC -[phone] Coates script for IV ATB was sent electronically to infusion center. [place] referral to infusion center via [employer]. Chart note updates also sent to [facility]. Asha Delvalle RN/TCC - [phone] Spoke to patient contact/caregiver Kj Green @ [phone]. Updated on discharge planning. Kj confirmed patient was approved for 21 hours weekly through PP for personal care. He has been working with [facility] care to get PP hours filled but are looking to hire additional staff. [facility] also staff passport hours; will contact [place] in AM for availability of staff and patient geographical area. Kj states [employer] special projects manager is Stephany Lawrence @ [phone]. Kj is able to pick patient up to transport home when medically ready for discharge unless patient will need ambulance transport home.Message left for PP CM @ [phone]; requested return call. Care team to follow. Asha Delvalle RN/TCC * Daily Blandcedo, DO - 03/07/2024 6:13 PM EDT Subjective Patient states to feel back to normal today. Had no questions or concerns. Overnight Events: None Objective Vital Signs: Blood pressure 113/51, pulse 86, temperature 36.2 C (97.2 F), temperature source Temporal, resp. rate 18, height 1.803 m (5' 11), weight 104 kg (230 lb 6.1 oz), SpO2 95%. Physical Exam Constitutional: Appearance: Normal appearance. He is obese. HENT: Head: Normocephalic and atraumatic. Mouth/Throat: Mouth: Mucous membranes are moist. Eyes: Extraocular Movements: Extraocular movements intact. Conjunctiva/sclera: Conjunctivae normal. Cardiovascular: Rate and Rhythm: Normal rate and regular rhythm. Pulses: Normal pulses. Heart sounds: Normal heart sounds. Pulmonary: Effort: Pulmonary effort is normal. Breath sounds: Normal breath sounds. Abdominal: General: Abdomen is flat. Bowel sounds are normal. Palpations: Abdomen is soft. Skin: General: Skin is warm. Neurological: General: No focal deficit present. Mental Status: He is alert and oriented to person, place, and time. Motor: Weakness present. Psychiatric: Mood and Affect: Mood normal. Behavior: Behavior normal. Thought Content: Thought content normal. Wt Readings from Last 6 Encounters: 03/07/24 104 kg (230 lb 6.1 oz) 02/09/24 100 kg (221 lb 6.4 oz) 12/15/23 96.2 kg (212 lb) 09/19/23 96.2 kg (212 lb) 06/12/23 97.5 kg (215 lb) 05/30/23 105 kg (231 lb) I/Os Intake/Output Summary (Last 24 hours) at 03/07/2024 6009 Last data filed at 03/07/2024 1759 Gross per 24 hour Intake 540 ml Output 850 ml Net -310 ml Labs: Results for orders placed or performed during the hospital encounter of 03/05/24 (from the past 24 hour(s)) CBC Result Value Ref Range WBC 5.6 4.4 - 11.3 x10*3/uL nRBC 0.0 0.0 - 0.0 /100 WBCs RBC 2.72 (L) 4.50 - 5.90 x10*6/uL Hemoglobin 8.2 (L) 13.5 - 17.5 g/dL Hematocrit 26.9 (L) 41.0 - 52.0 % MCV 99 80 - 100 fL MCH 30.1 26.0 - 34.0 pg MCHC 30.5 (L) 32.0 - 36.0 g/dL RDW 14.9 (H) 11.5 - 14.5 % Platelets 235 150 - 450 x10*3/uL Renal Function Panel Result Value Ref Range Glucose 106 (H) 74 - 99 mg/dL Sodium 139 136 - 145 mmol/L Potassium 4.2 3.5 - 5.3 mmol/L Chloride 101 98 - 107 mmol/L Bicarbonate 28 21 - 32 mmol/L Anion Gap 14 10 - 20 mmol/L Urea Nitrogen 60 (H) 6 - 23 mg/dL Creatinine 6.48 (H) 0.50 - 1.30 mg/dL eGFR 8 (L) >60 mL/min/1.73m*2 Calcium 8.0 (L) 8.6 - 10.3 mg/dL Phosphorus 5.0 (H) 2.5 - 4.9 mg/dL Albumin 2.8 (L) 3.4 - 5.0 g/dL Magnesium Result Value Ref Range Magnesium 2.06 1.60 - 2.40 mg/dL Imaging: CT abdomen pelvis wo IV contrast Result Date: 03/05/2024 STUDY: CT Abdomen and Pelvis without IV Contrast; 03/05/2024, 7:11 PM. INDICATION: Pyelonephritis, concern for fecal fistula. COMPARISON: CT CAP: 02/10/24. ACCESSION NUMBER(S): [id number] ORDERING CLINICIAN: DAILY COATES TECHNIQUE: CT of the abdomen and pelvis was performed. Contiguous axial images were obtained at 3 mm slice thickness through the abdomen and pelvis. Coronal and sagittal reconstructions at 3 mm slice thickness were performed. No intravenous contrast was administered. Automated mA/kV exposure control was utilized and patient examination was performed in strict accordance with principles of ALARA. FINDINGS: Please note that the evaluation of vessels, lymph nodes and organs is limited without intravenous contrast. Abdomen: No significant abnormalities are detectable in the liver, spleen, pancreas, adrenal glands, or biliary system. A percutaneous left nephrostomy remains in place, coiled in the left renal pelvis. Left kidney is moderately atrophic, similar to prior. Right nephroureteral stent also remains, unchanged in position. There is interval development of moderate proximal hydronephrosis of the right renal pelvis and calyces with transition at the UPJ. There is minimal air within the dilated right renal calyces. There is no detectable adjacent fistula with bowel. Abdominal aorta is tortuous, normal caliber. There is no bulky or localizing retroperitoneal lymphadenopathy. There is no retroperitoneal hematoma. The stomach is distended. There is minimal air distention in the small bowel. There is moderate stool burden colon, with scattered diverticulosis. There is no abscess, obstruction, or free air. Pelvis: The bladder is decompressed with a Jamison catheter in place. Stool distends the rectum. There are numerous calcified phleboliths. There are noinguinal hernias. Skeletal: Left hip arthroplasty is in place. There is mild spondylosis throughoutthe lumbar spine, including sclerosis in the posterior elements of the lower lumbar spine. Lower chest: Heart is top normal size. There is focal bibasilar atelectasis. There are no pleural effusions. 1. Interval development of moderate proximal right hydronephrosis with transition at the UPJ. 2. Indwelling right nephroureteral stent remains in place traversing the UPJ. 3. There is minimal air within the distended right renal calyces. 4. No detectable fistula to adjacent bowel. 5. Remainder as above. Signed by Ronnie Driver MD Medications: Current Facility-Administered Medications: acetaminophen (Tylenol) tablet 650 mg, 650 mg, oral, q4h PRN, Daily Coates DO, 650 mg at 03/05/24 1534 bisacodyl (Dulcolax) EC tablet 10 mg, 10 mg, oral, Daily PRN, Daily Coates DO heparin (porcine) injection 5,000 Units, 5,000 Units, subcutaneous, q8h, Daily Coates DO, 5,000 Units at 03/07/24 1401 levothyroxine (Synthroid, Levoxyl) tablet 88 mcg, 88 mcg, oral, Daily before breakfast, Daily Coates DO, 88 mcg at 03/07/24 0624 lubricating eye drops ophthalmic solution 2 drop, 2 drop, Both Eyes, BID, Daily Coates DO, 2 drop at 03/07/24 1228 ondansetron (Zofran) injection 4 mg, 4 mg, intravenous, q8h PRN, Daily Coates DO oxybutynin (Ditropan) tablet 5 mg, 5 mg, oral, BID, Daily Coates DO, 5 mg at 03/07/24 0959 oxyCODONE (Roxicodone) immediate release tablet 5 mg, 5 mg, oral, q6h PRN, Daily Coates DO oxygen (O2) therapy, , inhalation, Continuous PRN - O2/gases, Emily Bustillos MD, 21 percent at 03/07/24 1115 piperacillin-tazobactam (Zosyn) 2.25 g in dextrose (iso) IV 50 mL, 2.25 g, intravenous, q8h, DO Bertrand, Stopped at 03/07/24 1511 polyethylene glycol (Glycolax, Miralax) packet 17 g, 17 g, oral, Daily, Daily Coates DO, 17 g at1 1123 simethicone (Mylicon) chewable tablet 160 mg, 160 mg, oral, q8h PRN, Daily Coates DO Assessment & Plan Genet Booth is a 79 y.o. male admitted to [facility] for management of: Right pyelonephritis: CT obtained from [place] is not available for review. CT abdomen & pelvis obtained here and did not reveal findings suggestive of pyelonephritis. Urinalysis is suggestive of UTI. Based on prior urine cultures I will continue Zosyn renally dosed. Moderate Right Hydronephrosis: CT scan comments on interval development of hydronephrosis with transition at the UPJ. Urology consulted ESRD on HD (M/W/F): Currently appears euvolemic. No urgent need for dialysis. Nephrology consulted for HD when appropriate. Chronic Indwelling Jamison: Replaced on admission, minimal urine output Mild hyperkalemia: Resolved. Continue Lokelma Generalized weakness: PT/OT following Continue home medications for chronic medical conditions. Disposition: Anticipate discharge in 1-2 days. Moderate level of MDM Daily Coates DO Internal Medicine * Joy Hart, PT - 03/07/2024 12:51 PM EDT Physical Therapy Physical Therapy Treatment Patient Name: Genet Booth Department: [facility] Room: [address] [place] [address] Today's Date: 03/07/2024 Time Calculation Start Time: 1157 Stop Time: 1219 Time Calculation (min): 22 min Assessment/Plan PT Assessment PT Assessment Results: Decreased endurance, Decreased mobility Evaluation/Treatment Tolerance: Patient limited by fatigue End of Session Communication: (nurse) Assessment Comment: Tolerated therapy session well with fatigue noted after amb in hospital room CGA with FWW. Seated rest break between two bouts of amb due to fatigue. Amb distance further today 03/07 vs amb distance at [facility] 03/06. Pt declined ther ex after gait due to fatigue. Cont progressing gait as shannan and initiate ther ex at next session to strengthen legs/improve func mobility for return toPLOF. PT Plan Treatment/Interventions: (cont per current POC) PT Plan: Ongoing PT PT Frequency: 4 times per week (7 days) PT Discharge Recommendations: Moderate intensity level of continued care (lives alone, has 6 steps to enter) PT Recommended Transfer Status: Assist x2, Assistive device (assist x 2 as pt reports issues with orthostatic hypotension and going blind when standing) PT - OK to Discharge: Yes (to appropriate level of care) General Visit Information: PT Visit PT Received On: 03/07/24 Response to Previous Treatment: Patient with no complaints from previous session. General Reason for Referral: impaired mobility Referred By: Daily Coates DO Past Medical History Relevant to Rehab: HTN, metabolic syndrome, prostate cancer, UTI, dialysis, ESRD. Family/Caregiver Present: No Patient Position Received: Bed, 2 rail up, Alarm off, not on at start of session General Comment: Agreeable to participating in PT and going for short walk. Pain 2/10 at rest L abdomen, worse with movement. States he did not sleep well last night. Subjective Precautions: Precautions Medical Precautions: (has catheter, port under R clavicle, drainage tube L side) Vital Signs (Past 2hrs) Date/Time Vitals Session Patient Position Pulse Resp SpO2 BP MAP (mmHg) 03/07/24 1157 -- -- 75 -- 95 % -- -- Objective Pain: Pain Assessment Pain Assessment: 0-10 0-10 (Numeric) Pain Score: 2 Pain Location: Abdomen Pain Orientation: Left Cognition: Coordination: Postural Control: Extremity/Trunk Assessments: Activity Tolerance: Activity Tolerance Endurance: Tolerates 10 - 20 min exercise with multiple rests (SpO2 95 pre amb and 94 post) Treatments: Therapeutic Exercise Therapeutic Exercise Performed: No (pt declined ther ex due to fatigue after amb and lunch tray arriving) Bed Mobility Bed Mobility: Yes Bed Mobility 1 Bed Mobility 1: Supine to sitting Level of Assistance 1: Contact guard Bed Mobility Comments 1: HOB elevated and rails Bed Mobility 2 Bed Mobility 2: Sitting to supine Level of Assistance 2: Contact guard Bed Mobility Comments 2: HOB elevated and rails Ambulation/Gait Training Ambulation/Gait Training Performed: Yes Ambulation/Gait Training 1 Surface 1: Level tile Device 1: Rolling walker Gait Support Devices: (unable to use gait belt due to drainage bags, incisions, ports, and large abdomen) Assistance 1: Contact guard Quality of Gait 1: (decreased velocity, decreased step length on L) Comments/Distance (ft) 1: 12 (did 5 steps fwd, 5 steps bwd CGA FWW, seated rest break, then amb 12ft CGA FWW with increased time turning and verbal cues for AD negotiation near bed) Transfers Transfer: Yes Transfer 1 Transfer From 1: Sit to Transfer to 1: Stand (2 repetitions) Technique 1: Sit to stand Transfer Device 1: Walker Transfer Level of Assistance 1: Contact guard Trials/Comments 1: lightheadedness reported upon standing that resolved in less than 1 min Outcome Measures: [facility] Basic Mobility Turning from your back to your side while in a flat bed without using bedrails: A lot Moving from lying on your back to sitting on the side of a flat bed without using bedrails: A lot Moving to and from bed to chair (including a wheelchair): A little Standing up from a chair using your arms (e.g. wheelchair or bedside chair): A little To walk in hospital room: A little Climbing 3-5 steps with railing: A lot Basic Mobility - Total Score: 15 Education Documentation Body Mechanics, taught by Joy Hart, PT at 03/07/2024 12:50 PM. Learner: Patient Readiness: Acceptance Method: Explanation, Demonstration Response: Verbalizes Understanding, Needs Reinforcement Precautions, taught by Joy Hart, PT at 03/07/2024 12:50 PM. Learner: Patient Readiness: Acceptance Method: Explanation, Demonstration Response: Verbalizes Understanding, Needs Reinforcement Home Exercise Program, taught by Joy Hart, PT at 03/07/2024 12:50 PM. Learner: Patient Readiness: Acceptance Method: Explanation, Demonstration Response: Verbalizes Understanding, Needs Reinforcement Mobility Training, taught by Joy Hart, PT at 03/07/2024 12:50 PM. Learner: Patient Readiness: Acceptance Method: Explanation, Demonstration Response: Verbalizes Understanding, Needs Reinforcement Education Comments No comments found. OP EDUCATION: Encounter Problems Encounter Problems (Active) Balance LTG - Patient will maintain dynamic std balance x5min mod I with FWW for completion of ADLs/hygienefor return to PLOF (Progressing) Start: 03/06/24 Expected End: 03/12/24 Mobility LTG - Patient will ambulate household distance 150ft mod I with FWW with equal step length R and L with SpO2 >90% on RA for return to PLOF, decreased fall risk (Progressing) Start: 03/06/24 Expected End: 03/12/24 LTG - Patient will navigate 4-6 steps with rani HR mod I to enter/exit home for return to PLOF (Progressing) Start: 03/06/24 Expected End: 03/12/24 PT Transfers LTG - Patient will transfer from one surface to another mod I with FWW for return to PLOF (Progressing) Start: 03/06/24 Expected End: 03/12/24 STG - Patient will perform bed mobility mod I with HOB elevated and rails as he has hospital bed athome for return to PLOF (Progressing) Start: 03/06/24 Expected End: 03/12/24 Pain - Adult * Daily Coates, DO - 03/06/2024 4:46 PM EDT Subjective Patient states to be feeling better today, abdominal pain has almost resolved he was able to tolerate his PT?OT sessions. Overnight Events: None Objective Vital Signs: Blood pressure (!) 114/47, pulse 87, temperature 36.7 C (98.1 F), resp. rate 19, height 1.803 m (5'11), weight 104 kg (229 lb 0.9 oz), SpO2 96%. Physical Exam Constitutional: Appearance: Normal appearance. He is obese. HENT: Head: Normocephalic and atraumatic. Mouth/Throat: Mouth: Mucous membranes are moist. Eyes: Extraocular Movements: Extraocular movements intact. Conjunctiva/sclera: Conjunctivae normal. Cardiovascular: Rate and Rhythm: Normal rate and regular rhythm. Pulses: Normal pulses. Heart sounds: Normal heart sounds. Pulmonary: Effort: Pulmonary effort is normal. Breath sounds: Normal breath sounds. Abdominal: General: Abdomen is flat. Bowel sounds are normal. Palpations: Abdomen is soft. Skin: General: Skin is warm. Neurological: General: No focal deficit present. Mental Status: He is alert and oriented to person, place, and time. Motor: Weakness present. Psychiatric: Mood and Affect: Mood normal. Behavior: Behavior normal. Thought Content: Thought content normal. Wt Readings from Last 6 Encounters: 03/06/24 104 kg (229 lb 0.9 oz) 02/09/24 100 kg (221 lb 6.4 oz) 12/15/23 96.2 kg (212 lb) 09/19/23 96.2 kg (212 lb) 06/12/23 97.5 kg (215 lb) 05/30/23 105 kg (231 lb) I/Os Intake/Output Summary (Last 24 hours) at 03/06/2024 1649 Last data filed at 03/06/2024 1529 Gross per 24 hour Intake 1546 ml Output 1035 ml Net 511 ml Labs: Results for orders placed or performed during the hospital encounter of 03/05/24 (from the past 24 hour(s)) Urinalysis with Reflex Culture and Microscopic Result Value Ref Range Color, Urine Light-[place] (N) Light-Yellow, Yellow, Dark-Yellow Appearance, Urine Ex.Turbid (N) Clear Specific [place], Urine 1.011 1.005 - 1.035 pH, Urine 8.0 5.0, 5.5, 6.0, 6.5, 7.0, 7.5, 8.0 Protein, Urine 300 (3+) (A) NEGATIVE, 10 (TRACE), 20 (TRACE) mg/dL Glucose, Urine Normal Normal mg/dL Blood, Urine OVER (3+) (A) NEGATIVE Ketones, Urine NEGATIVE NEGATIVE mg/dL Bilirubin, Urine NEGATIVE NEGATIVE Urobilinogen, Urine Normal Normal mg/dL Nitrite, Urine NEGATIVE NEGATIVE Leukocyte Esterase, Urine 500 Doris/ L (A) NEGATIVE Extra Urine Khan Tube Result Value Ref Range Extra Tube Hold for add-ons. Microscopic Only, Urine Result Value Ref Range WBC, Urine >50 (A) 1-5, NONE /HPF WBC Clumps, Urine MODERATE Reference range not established. /HPF RBC, Urine >20 (A) NONE, 1-2, 3-5 /HPF Bacteria, Urine 1+ (A) NONE SEEN /HPF CBC Result Value Ref Range WBC 7.3 4.4 - 11.3 x10*3/uL nRBC 0.0 0.0 - 0.0 /100 WBCs RBC 2.69 (L) 4.50 - 5.90 x10*6/uL Hemoglobin 8.2 (L) 13.5 - 17.5 g/dL Hematocrit 26.4 (L) 41.0 - 52.0 % MCV 98 80 - 100 fL MCH 30.5 26.0 - 34.0 pg MCHC 31.1 (L) 32.0 - 36.0 g/dL RDW 15.0 (H) 11.5 - 14.5 % Platelets 208 150 - 450 x10*3/uL Renal Function Panel Result Value Ref Range Glucose 101 (H) 74 - 99 mg/dL Sodium 136 136 - 145 mmol/L Potassium 4.8 3.5 - 5.3 mmol/L Chloride 100 98 - 107 mmol/L Bicarbonate 28 21 - 32 mmol/L Anion Gap 13 10 - 20 mmol/L Urea Nitrogen 60 (H) 6 - 23 mg/dL Creatinine 5.97 (H) 0.50 - 1.30 mg/dL eGFR 9 (L) >60 mL/min/1.73m*2 Calcium 8.1 (L) 8.6 - 10.3 mg/dL Phosphorus 4.2 2.5 - 4.9 mg/dL Albumin 2.9 (L) 3.4 - 5.0 g/dL Magnesium Result Value Ref Range Magnesium 1.97 1.60 - 2.40 mg/dL Imaging: CT abdomen pelvis wo IV contrast Result Date: 03/05/2024 STUDY: CT Abdomen and Pelvis without IV Contrast; 03/05/2024, 7:11 PM. INDICATION: Pyelonephritis, concern for fecal fistula. COMPARISON: CT CAP: 02/10/24. ACCESSION NUMBER(S): [id number] ORDERING CLINICIAN: DAILY COATES TECHNIQUE: CT of the abdomen and pelvis was performed. Contiguous axial images were obtained at 3 mm slice thickness through the abdomen and pelvis. Coronal and sagittal reconstructions at 3 mm slice thickness were performed. No intravenous contrast was administered. Automated mA/kV exposure control was utilized and patient examination was performed in strict accordance with principles of ALARA. FINDINGS: Please note that the evaluation of vessels, lymph nodes and organs is limited without intravenous contrast. Abdomen: No significant abnormalities are detectable in the liver, spleen, pancreas, adrenal glands, or biliary system. A percutaneous left nephrostomy remains in place, coiled in the left renal pelvis. Left kidney is moderately atrophic, similar to prior. Right nephroureteral stent also remains, unchanged in position. There is interval development of moderate proximal hydronephrosis of the right renal pelvis and calyces with transition at the UPJ. There is minimal air within the dilated right renal calyces. There is no detectable adjacent fistula with bowel. Abdominal aorta is tortuous, normal caliber. There is no bulky or localizing retroperitoneal lymphadenopathy. There is no retroperitoneal hematoma. The stomach is distended. There is minimal air distention in the small bowel. There is moderate stool burden colon, with scattered diverticulosis. There is no abscess, obstruction, or free air. Pelvis: The bladder is decompressed with a Jamison catheter in place. Stool distends the rectum. There are numerous calcified phleboliths. There are noinguinal hernias. Skeletal: Left hip arthroplasty is in place. There is mild spondylosis throughoutthe lumbar spine, including sclerosis in the posterior elements of the lower lumbar spine. Lower chest: Heart is top normal size. There is focal bibasilar atelectasis. There are no pleural effusions. 1. Interval development of moderate proximal right hydronephrosis with transition at the UPJ. 2. Indwelling right nephroureteral stent remains in place traversing the UPJ. 3. There is minimal air within the distended right renal calyces. 4. No detectable fistula to adjacent bowel. 5. Remainder as above. Signed by Ronnie Driver MD Medications: Current Facility-Administered Medications: acetaminophen (Tylenol) tablet 650 mg, 650 mg, oral, q4h PRN, Daily Coates DO, 650 mg at 03/05/24 1534 bisacodyl (Dulcolax) EC tablet 10 mg, 10 mg, oral, Daily PRN, Daily Coates DO heparin (porcine) injection 5,000 Units, 5,000 Units, subcutaneous, q8h, Daily Coates DO, 5,000 Units at 03/06/24 1431 levothyroxine (Synthroid, Levoxyl) tablet 88 mcg, 88 mcg, oral, Daily before breakfast, Daily Coates DO, 88 mcg at 03/06/24 0609 ondansetron (Zofran) injection 4 mg, 4 mg, intravenous, q8h PRN, Daily Coates DO oxybutynin (Ditropan) tablet 5 mg, 5 mg, oral, BID, Daily Coates DO, 5 mg at 03/06/24 0815 oxyCODONE (Roxicodone) immediate release tablet 5 mg, 5 mg, oral, q6h PRN, Daily Coates DO oxygen (O2) therapy, , inhalation, Continuous PRN - O2/gases, Emily Bustillos MD, 2 L/min at 03/06/24 1142 piperacillin-tazobactam (Zosyn) 2.25 g in dextrose (iso) IV 50 mL, 2.25 g, intravenous, q8h, DO Bertrand, Stopped at 03/06/24 1529 polyethylene glycol (Glycolax, Miralax) packet 17 g, 17 g, oral, Daily, Daily Coates DO, 17 g at1 1123 simethicone (Mylicon) chewable tablet 160 mg, 160 mg, oral, q8h PRN, Daily Coates DO sodium zirconium cyclosilicate (Lokelma) packet 10 g, 10 g, oral, q8h, Daily Coates, DO, 10 g at 03/06/24 1123 Assessment & Plan Genet Booth is a 79 y.o. male admitted to [facility] for management of: Right pyelonephritis: CT obtained from [place] is not available for review. CT abdomen & pelvis obtained here and did not reveal findings suggestive of pyelonephritis. Urinalysis is suggestive of UTI. Based on prior urine cultures I will continue Zosyn renally dosed. Moderate Right Hydronephrosis: CT scan comments on interval development of hydronephrosis with transition at the [facility]. Urology consulted ESRD on HD (M/W/F): Currently appears euvolemic. No urgent need for dialysis. Nephrology consulted for HD when appropriate. Chronic Indwelling Jamison: Replaced on admission, minimal urine output Mild hyperkalemia: Resolved. Continue Lokelma Generalized weakness: PT/OT following Continue home medications for chronic medical conditions. Disposition: Anticipate LOS > 2 midnights. Moderate level of MDM Daily Coates DO Internal Medicine * XIMENA Garcia - 03/06/2024 2:48 PM EDT 03/06/24 5087 Discharge Planning Living Arrangements Alone;Friends Support Systems Friends/neighbors;Home care staff Assistance Needed has [facility] Type of Residence Private residence Number of Stairs to Enter Residence 5 Number of Stairs Within Residence 14 Do you have animals or pets at home? No Who is requesting discharge planning? Provider Home or Post Acute Services In home services Type of Home Care Services Home health aide;Home OT;Home PT;Meals on Wheels Expected Discharge Disposition Home Does the patient need discharge transport arranged? Yes SW met with patient and we reviewed the role CT has in discharge planning.Confirmed patients address and insurance. Patient was just discharged home from [facility] last Friday02/27/24. He has HHC with [facility] and also is to have services set up through [facility] 9 . He is having his d ialysis with [facility] in [place] and had just started with them last Friday03/01/24. He does have transportation also set up with [facility] for his dialysis. He said that he does plan to return home at discharge- does have his friends to assist him. He is unsure of transportation home- but maybe his friend will be able to pick him up. He is to have dialysis here at the hospital on Thursday 03/08. SW did send referral to [facility] via Care port and they will accept him as he is their client.Plan is to return home with [facility] and also services. CT to follow. 334- IM was signed and copy provided to patient. * Joy Hart, PT - 03/06/2024 2:03 PM EDT Physical Therapy Physical Therapy Evaluation Patient Name: Genet Booth Department: [facility] ICU Room: [address] [place], [place] [address] Today's Date: 03/06/2024 Time Calculation Start Time: 1241 Stop Time: 1321 Time Calculation (min): 40 min Assessment/Plan PT Assessment PT Assessment Results: Decreased strength, Decreased range of motion, Decreased endurance, Impairedbalance, Decreased mobility, Pain Rehab Prognosis: Good Barriers to Discharge: Lives alone in house with 6 steps to enter with rani HR Evaluation/Treatment Tolerance: Patient limited by fatigue, Patient tolerated treatment well Medical Staff Made Aware: Yes (nurse present during PT [facility]) Strengths: Ability to acquire knowledge, Access to adaptive/assistive products, Attitude of self, Insight into problems, Rehab experience Barriers to Participation: Comorbidities, Housing layout End of Session Communication: Bedside nurse Assessment Comment: Presents with signs/symptoms consistent with dx of pyelonephritis and decreasedfunctional mobility: decreased LE strength, decreased LE ROM, increased pain, impaired gait, decreased functional mobility. At [facility], pt was CGA for bed mobility with HOB elevated and rails, CGA x2 STS, and amb 2ft fwd/bwd CGA x 2 FWW with seated rest break after due to fatigue. Barriers to progres in PT include med comorbidities. Would benefit from skilled PT inpatient and mod freq PT upon DC to increase strength, normalize gait, decrease fall risk. Pt lives alone, has 6 steps to enter house with rani HR. End of Session Patient Position: Bed, 2 rail up, Alarm off, not on at start of session IP OR SWING BED PT PLAN Inpatient or Swing Bed: Inpatient PT Plan Treatment/Interventions: Bed mobility, Transfer training, Gait training, Stair training, Balance training, Neuromuscular re-education, Strengthening, Endurance training, Range of motion, Therapeutic exercise, Therapeutic activity, Home exercise program, Positioning, Postural re-education PT Plan: Ongoing PT PT Frequency: 4 times per week (7 days) PT Discharge Recommendations: Moderate intensity level of continued care (lives alone, has 6 steps to enter) PT Recommended Transfer Status: Assist x2, Assistive device (assist x 2 as pt reports issues with orthostatic hypotension and going blind when standing) PT - OK to Discharge: Yes (to appropriate level of care) Subjective General Visit Information: General Reason for Referral: impaired mobility Referred By: Daily Coates DO Past Medical History Relevant to Rehab: HTN, metabolic syndrome, prostate cancer, UTI, dialysis, ESRD. Prior to Session Communication: Bedside nurse Patient Position Received: Bed, 2 rail up, Alarm off, not on at start of session General Comment: Admitted to hospital as transfer from [facility] with dx of pyelonephritis.Has IV, nephrostomy, catheter, on 2L oxygen via [place]. Hemoglobin 8.2. No falls in past 6 mo. Agreeable to participate in PT. Home Living: Home Living Type of Home: House (two story) Lives With: Alone Home Adaptive Equipment: Walker rolling or standard, Wheelchair-manual Home Layout: Two level, Laundry in basement, Full bath main level, Able to live on main level with bedroom/bathroom, Stairs to alternate level with rails (unable to get to 2nd floor, thinking about pursuing a chair lift) Home Access: Stairs to enter with rails Entrance Stairs-Rails: Both Entrance Stairs-Number of Steps: 6 Bathroom Shower/Tub: Tub/shower unit (not currently doing a shower/bath because of ports) Bathroom Toilet: Adaptive toilet seating (has riser with two handles) Prior Level of Function: Prior Function Per Pt/Caregiver Report Level of [place]: Needs assistance with ADLs, Needs assistance with homemaking, Needs assistance with functional transfers (Usually independent with bed mobility (has hospital bed), transfers, and household gait with walker; however requires breaks and was recommended to have friend their whenmobile due to low BP.) Receives Help From: Friends (Patient lives alone but has friend come in to help with cooking, cleaning, driving. Qualifies for a home health aide but has been unable to find one. Has done home PT previously.) Ambulatory Assistance: Needs assistance Transfers: Assistive device Precautions: Vital Signs (Past 2hrs) Date/Time Vitals Session Patient Position Pulse Resp SpO2 BP MAP (mmHg) 03/06/24 1241 -- -- 87 -- -- -- -- Objective Pain: Pain Assessment Pain Assessment: 0-10 0-10 (Numeric) Pain Score: 2 Pain Location: Abdomen Pain Orientation: Left Cognition: Cognition Orientation Level: Oriented X4 General Assessments: General Observation General Observation: (has port, tubing on left side of back, area of swelling L abdomen) Sensation Light Touch: No apparent deficits (R and L LEs) Strength Strength Comments: L knee flex 2/5, L knee ext 2/5 pain, L hip flex 2/5 pain, R knee flex 3/5, R knee ext 3/5, R hip flex 3/5 Strength Strength Comments: L knee flex 2/5, L knee ext 2/5 pain, L hip flex 2/5 pain, R knee flex 3/5, R knee ext 3/5, R hip flex 3/5 Static Sitting Balance Static Sitting-Balance Support: Bilateral upper extremity supported Static Sitting-Comment/Number of Minutes: (3 min, reported lightheadedness that decreased after <1min) Static Standing Balance Static Standing-Balance Support: Bilateral upper extremity supported Static Standing-Comment/Number of Minutes: 3 (reported lightheadedness upon standing that resolved <1min) Functional Assessments: Bed Mobility Bed Mobility: Yes Bed Mobility 1 Bed Mobility 1: Supine to sitting Level of Assistance 1: Contact guard Bed Mobility Comments 1: with bed rails, HOB elevated, log roll Bed Mobility 2 Bed Mobility 2: Sitting to supine Level of Assistance 2: Contact guard Bed Mobility Comments 2: (with HOB elevated and rail use) Bed Mobility 3 Bed Mobility 3: Scooting Level of Assistance 3: Dependent, +2 Bed Mobility Comments 3: supine scoot to HOB Transfers Transfer: Yes Transfer 1 Transfer From 1: Sit to Transfer to 1: Stand Technique 1: Sit to stand Transfer Device 1: Walker (did not use gait belt due to being unable to place gait belt and avoid ports/tubing/lines) Transfer Level of Assistance 1: Contact guard, +2 Ambulation/Gait Training Ambulation/Gait Training Performed: Yes Ambulation/Gait Training 1 Surface 1: Level tile Device 1: Rolling walker Assistance 1: Contact guard Quality of Gait 1: Decreased step length Comments/Distance (ft) 1: (amb fwd x 2ft, bwd x 2ft three times with pt requiring seated rest breakdue to fatigue after) Stairs Stairs: No Extremity/Trunk Assessments: LLE LLE : (decreased L knee AROM flex with pain noted) Outcome Measures: [facility] Basic Mobility Turning from your back to your side while in a flat bed without using bedrails: Total Moving from lying on your back to sitting on the side of a flat bed without using bedrails: Total Moving to and from bed to chair (including a wheelchair): A little Standing up from a chair using your arms (e.g. wheelchair or bedside chair): A little To walk in hospital room: A lot Climbing 3-5 steps with railing: A lot Basic Mobility - Total Score: 12 Encounter Problems Encounter Problems (Active) Balance LTG - Patient will maintain dynamic std balance x5min mod I with FWW for completion of ADLs/hygienefor return to PLOF (Progressing) Start: 03/06/24 Expected End: 03/12/24 Mobility LTG - Patient will ambulate household distance 150ft mod I with FWW with equal step length R and L with SpO2 >90% on RA for return to PLOF, decreased fall risk (Progressing) Start: 03/06/24 Expected End: 03/12/24 LTG - Patient will navigate 4-6 steps with rani HR mod I to enter/exit home for return to PLOF (Progressing) Start: 03/06/24 Expected End: 03/12/24 PT Transfers LTG - Patient will transfer from one surface to another mod I with FWW for return to PLOF (Progressing) Start: 03/06/24 Expected End: 03/12/24 STG - Patient will perform bed mobility mod I with HOB elevated and rails as he has hospital bed athome for return to PLOF (Progressing) Start: 03/06/24 Expected End: 03/12/24 Pain - Adult Education Documentation Body Mechanics, taught by Joy Hart, PT at 03/06/2024 2:01 PM. Learner: Patient Readiness: Acceptance Method: Explanation Response: Needs Reinforcement Precautions, taught by Joy Hart, PT at 03/06/2024 2:01 PM. Learner: Patient Readiness: Acceptance Method: Explanation Response: Needs Reinforcement Home Exercise Program, taught by Joy Hart PT at 03/06/2024 2:01 PM. Learner: Patient Readiness: Acceptance Method: Explanation Response: Needs Reinforcement Mobility Training, taught by Joy Hart PT at 03/06/2024 2:01 PM. Learner: Patient Readiness: Acceptance Method: Explanation Response: Needs Reinforcement Education Comments No comments found. [facility] Work Phone: 1(373) 481-453010-10-2024 Plan of care note* Care Plan - Vivian Garcias RN - 03/11/2024 6:38 AM EDT The patient's goals for the shift include rest comfortably in bed The clinical goals for the shift include pain management, tolerate dialysis well In bed with shift. Respirations even and unlabored. Dialysis completed. No fluid removed. In pleasant mood. Is hoping to go home with home health today. Call light within reach, will continue to monitor. Problem: Skin Goal: Participates in plan/prevention/treatment measures Outcome: Progressing Goal: Prevent/manage excess moisture Outcome: Progressing Goal: Prevent/minimize sheer/friction injuries Outcome: Progressing Goal: Promote/optimize nutrition Outcome: Progressing Problem: Dialysis Goal: I will slow progression of end-stage renal disease through participating in dialysis 3 times a week Outcome: Progressing Problem: Pain - Adult Goal: Verbalizes/displays adequate comfort level or baseline comfort level Outcome: Progressing Problem: Safety - Adult Goal: Free from fall injury Outcome: Progressing Problem: Chronic Conditions and Co-morbidities Goal: Patient's chronic conditions and co-morbidity symptoms are monitored and maintained or improved Outcome: Progressing Problem: Infection related to problem list condition Goal: Infection will resolve through treatment Outcome: Progressing Problem: Infective UTI/pyelonephritis Goal: Manages/understands urgency, continence Outcome: Progressing Goal: No signs of neurosensory, musculoskeletal, cardiac changes Outcome: Progressing Goal: No worsening signs of infection Outcome: Progressing Goal: Stable weight and I&O Outcome: Progressing [facility]10-09-2024 Note* Post-Procedure Note - Michele Yoon - 03/10/2024 10:55 PM EDT Report to Receiving RN: Report To: Vivian Link Report Called: [id number] Hand-Off Communication: No fluid removal BP 106/50 HR 74 Temp 37.1 Complications During Treatment: No Ultrafiltration Treatment: No, HD Medications Administered During Dialysis: No Blood Products Administered During Dialysis: No Labs Sent During Dialysis: No Heparin Drip Rate Changes: N/A Dialysis Catheter Dressing: New Dressing Last Dressing Change: 03/08/24 [facility]10-09-2024 Note* Pre-Procedure Note - Michele Yoon - 03/10/2024 7:45 PM EDT Report from Sending RN: Report From: Vivian Recent Surgery of Procedure: No Baseline Level of Consciousness (LOC): Alert Oxygen Use: No Type: NA Diabetic: No Last BP Med Given Day of Dialysis: See MAR Last Pain Med Given: See MAR Lab Tests to be Obtained with Dialysis: No Blood Transfusion to be Given During Dialysis: No Available IV Access: Yes Medications to be Administered During Dialysis: No Continuous IV Infusion Running: No Restraints on Currently or in the Last 24 Hours: N/A Hand-Off Communication: Full Code Dialysis Catheter Dressing: New Dressing Last Dressing Change: 03/08/24 [facility] Work Phone: 1(854) 677-529710-09-2024 Hospital course Narrative* Giovanni Pardo MD - 03/10/2024 4:29 PM EDT Discharge Diagnosis Pyelonephritis Issues Requiring Follow-Up Nephrology Discharge Meds Medication List START taking these medications * alteplase 2 mg injection; Commonly known as: Cathflo Activase; 2 mL (2 mg) by intra-catheter route 1 time for 1 dose. ertapenem 500 mg in sodium chloride 0.9% 50 mL IV; Infuse 500 mg at 100 mL/hr over 30 minutes into a venous catheter once every 24 hours for 7 doses. Continuous infusion. Start 03/09/24 - 03/16/2024. Can be used with elastometric pump * This list has 1 medication(s) that are the same as other medications prescribed for you. Read the directions carefully, and ask your doctor or other care provider to review them with you. CONTINUE taking these medications acetaminophen 325 mg tablet; Commonly known as: Tylenol allopurinol 100 mg tablet; Commonly known as: Zyloprim diphenhydrAMINE 50 mg capsule; Commonly known as: BENADryl; Take 1 capsule (50 mg) by mouth 1 time for 1 dose. Take one tablet by mouth 1 hour prior to procedure for contrast premedication. Dulcolax (bisacodyl) 10 mg suppository; Generic drug: bisacodyl Gas-X Ultra-Strength 180 mg capsule; Generic drug: simethicone HYDROcodone-acetaminophen 5-325 mg tablet; Commonly known as: [place] LIDOCAINE TOP magnesium hydroxide 400 mg/5 mL suspension; Commonly known as: Milk of Magnesia menthol-zinc oxide 0.44-20.6 % ointment; Commonly known as: Calmoseptine - Risamine multivitamin tablet oxybutynin 5 mg tablet; Commonly known as: Ditropan; TAKE ONE TABLET BY MOUTH TWO TIMES A DAY oxygen gas therapy; Commonly known as: O2; Inhale 1 each once every 24 hours. polyethylene glycol 17 gram packet; Commonly known as: Glycolax, Miralax Procrit 20,000 unit/mL injection; Generic drug: epoetin kacie PROSTATE THERAPY ORAL sennosides-docusate sodium 8.6-50 mg tablet; Commonly known as: Melissa-Colace sevelamer HCl 800 mg tablet; Commonly known as: Renagel sodium chloride 0.65 % nasal spray; Commonly known as: Castro Synthroid 88 mcg tablet; Generic drug: levothyroxine ASK your doctor about these medications * alteplase 2 mg injection; Commonly known as: Cathflo Activase; 2 mL (2 mg) by intra-catheter route 1 time for 1 dose.; Ask about: Should I take this medication? * This list has 1 medication(s) that are the same as other medications prescribed for you. Read the directions carefully, and ask your doctor or other care provider to review them with you. Test Results Pending At Discharge Pending Labs No current pending labs. Hospital Course 79-year-old male with history of end-stage renal disease on hemodialysis Friday, hypertension, hyperlipidemia, obstructive sleep apnea, anemia of chronic disease, GERD, recurrent UTI, prostate cancer, hydronephrosis, BPH with obstructive lower urinary symptoms, chronic indwelling Jamison, right ureteral stent, left nephrostomy tube presented from [facility] due to no dialysis capabilities at their facility & continued management of pyelonephritis. Patient had severe abdomen pain 10/10 throughout abdomen with no radiation and thought he might have fever as well nauseavomiting. Worsening generalized weakness. Found to have right pyelonephritis at transferring facilit y. CT abdomen pelvis here did not suggest pyelonephritis. Urinalysis suggestive of UTI however. Patient was initially started on Zosyn. Did show moderate right hydronephrosis with interval development and transition at [facility]. Urology consulted. Patient had right stent change, attempted left stent placement and had removal of left nephrostomy tube, SP placement. Patient continued hemodialysis per nephrology, euvolemic. Mild hyperkalemia resolved. PT OT following. His urine growing ESBL and changedto ertapenem with finish of the course via midline. Patient has bilateral hydronephrosis status post right stent in place. Continue to follow urology outpatient. Hemodynamically stable and overall asymptomatic. Labs stable, no active bleeding. No signs of worsening infection. No fever white count. Overall improving clinically. Case management will arrange outpatient dialysis. DC when arrangementsare made. Continue home health care upon discharge with PT OT and nursing as deemed appropriate. Follow- up PCP as well for ongoing reconciliation as necessary. Continue home medicines as reconciled. Currently on Synthroid, ertapenem, oxybutynin, MiraLAX, Tylenol, oxycodone, bowel regimen for constipation prophylaxis Patient uses CPAP at night for sleep apnea Pertinent Physical Exam At Time of Discharge Physical Exam General Appearance: AAO x 3, ss Skin: skin color pink, warm, and dry; no suspicious rashes or lesions Eyes : PERRL, EOM's intact ENT: mucous membranes pink and moist Neck: normocephalic, right IJ tunneled dialysis catheter Respiratory: lungs clear to auscultation anteriorly; no wheezing, rhonchi, or crackles. Heart: regular rate and rhythm. telemetry shows sinus rhythm Abdomen: Nondistended, positive bowel sounds x4, soft, nontender Extremities: no edema, right upper extremity AV fistula, left upper extremity PICC line : Urinary catheter Peripheral pulses: normal x4 extremities Neuro: alert, coherent and conversant, no focal motor deficits Time to dc > 35 mins Giovanni Pardo MD documented in this [facility] Work Phone: 1([phone]) 816-370310-09-2024 Note. MICRO - Microbiology PROCEDURE: Blood Culture (bacterial) [*1] SOURCE: Blood BODY SITE: COLLECTED DATE/TIME: 03/04/2024 22:20 EDT RECEIVED DATE/TIME: 03/05/2024 14:24 EDT START DATE/TIME: 03/05/2024 14:25 EDT FREE TEXT SOURCE: FINAL REPORTS Final Report [] Verified Date/Time/Personnel: 03/10/2024 14:59 EDT Blood Culture: No Growth at 5 days. PRELIMINARY REPORTS Preliminary Report [] Verified Date/Time/Personnel: 03/05/2024 14:59 EDT Culture has been received in lab and is no growth to date. Routine cultures are held for 5 days. Performing Locations *1: This test was performed at: [facility], [address] [place] [address], [facility] , [facility] [id number] Note. MICRO - Microbiology PROCEDURE: Blood Culture (bacterial) [*1] SOURCE: Blood BODY SITE: COLLECTED DATE/TIME: 03/04/2024 23:17 EDT RECEIVED DATE/TIME: 03/05/2024 14:25 EDT START DATE/TIME: 03/05/2024 14:25 EDT FREE TEXT SOURCE: FINAL REPORTS Final Report [] Verified Date/Time/Personnel: 03/10/2024 14:59 EDT Blood Culture: No Growth at 5 days. PRELIMINARY REPORTS Preliminary Report [] Verified Date/Time/Personnel: 03/05/2024 14:59 EDT Culture has been received in lab and is no growth to date. Routine cultures are held for 5 days. Performing Locations *1: This test was performed at: [facility], [facility] [place] [address], [id number]- , [facility]10-09-2024 Plan of care note* Care Plan - Delmy Powell RN - 03/10/2024 8:35 AM EDT Problem: Skin Goal: Participates in plan/prevention/treatment measures Outcome: Progressing Goal: Prevent/manage excess moisture Outcome: Progressing Goal: Prevent/minimize sheer/friction injuries Outcome: Progressing Goal: Promote/optimize nutrition Outcome: Progressing Problem: Dialysis Goal: I will slow progression of end-stage renal disease through participating in dialysis 3 times a week Outcome: Progressing Problem: Pain - Adult Goal: Verbalizes/displays adequate comfort level or baseline comfort level Outcome: Progressing Problem: Safety - Adult Goal: Free from fall injury Outcome: Progressing Problem: Discharge Planning Goal: Discharge to home or other facility with appropriate resources Outcome: Progressing Problem: Chronic Conditions and Co-morbidities Goal: Patient's chronic conditions and co-morbidity symptoms are monitored and maintained or improved Outcome: Progressing Problem: Infection related to problem list condition Goal: Infection will resolve through treatment Outcome: Progressing Problem: Infective UTI/pyelonephritis Goal: Manages/understands urgency, continence Outcome: Progressing Goal: No signs of neurosensory, musculoskeletal, cardiac changes Outcome: Progressing Goal: No worsening signs of infection Outcome: Progressing Goal: Stable weight and I&O Outcome: Progressing The clinical goals for the shift include pain management, tolerate dialysis well [facility] Work Phone: 1(448) 942-188310-08-2024 Procedure note* Fan Snyder RN - 03/09/2024 1:32 PM EDT PICC Line Insertion Procedure Note Procedure: Insertion of #4 FR/18G Midline Indications: Home IV therapy Procedure Details Informed consent was obtained for the procedure, including sedation. Risks of lung perforation, hemorrhage, and adverse drug reaction were discussed. Maximum sterile technique was used including cap, gloves, gown, hand hygiene, and mask. Sedation: No #4 FR/18G Midline inserted to the L Basilic vein per hospital protocol. Blood return: yes Findings: Catheter inserted to 17 cm, with 0 cm exposed. Mid upper arm circumference is 37 cm. There were no changes to vital signs. Catheter was flushed with 10 cc NS. Patient did tolerate procedure well. Midline Brochure and Card given to patient with teaching instruction. [facility]10-08-2024 Procedure note* Fan Snyder RN - 03/09/2024 1:32 PM EDT PICC Line Insertion Procedure Note Procedure: Insertion of #4 FR/18G Midline Indications: Home IV therapy Procedure Details Informed consent was obtained for the procedure, including sedation. Risks of lung perforation, hemorrhage, and adverse drug reaction were discussed. Maximum sterile technique was used including cap, gloves, gown, hand hygiene, and mask. Sedation: No #4 FR/18G Midline inserted to the L Basilic vein per hospital protocol. Blood return: yes Findings: Catheter inserted to 17 cm, with 0 cm exposed. Mid upper arm circumference is 37 cm. There were no changes to vital signs. Catheter was flushed with 10 cc NS. Patient did tolerate procedure well. Midline Brochure and Card given to patient with teaching instruction. documented in this [facility] Work Phone: [phone]) 167-890610-08-2024 Note* Perioperative Nursing Note - Tessy Alberto RN - 03/09/2024 12:24 PM EDT Catheter flushed with NS, small clot removed now draining clear red urine. [facility]10-08-2024 Note* Op Note - John Bah MD - 03/09/2024 11:45 AM EDT Ureteroscopy (B), Cystoscopy with Insertion Stent Ureter (B), Cystoscopy with Retrograde Pyelogram (B) Operative Note Date: 03/05/2024 - 03/09/2024 OR Location: [facility] OR Name: Genet Booth, : 1945, Age: 79 y.o., , Sex: male Diagnosis Pre-op Diagnosis * Calculus of ureter [N20.1] * Urinary retention [R33.9] Post-op Diagnosis * Calculus of ureter [N20.1] * Urinary retention [R33.9] Procedures Ureteroscopy 98021 - [place] CYSTO W/URTROSCOPY&/PYELOSCOPY DX Cystoscopy with Insertion Stent Ureter 46262 - [place] CYSTO W/INSERT URETERAL STENT Cystoscopy with Retrograde Pyelogram 80165 - CHG UROGRAPHY RETROGRADE WITH/WO KUB Surgeons * John Bah - Primary Resident/Fellow/Other Rn Oncology Clinical: Surgeons and Role: * No surgeons found with a matching role * Procedure Summary Anesthesia: General ASA: III Anesthesia Staff: Anesthesiologist: Calvin Banda DO Estimated Blood Loss: 0mL Intra-op Medications: Administrations occurring from 1200 to 1230 on 03/09/24: Medication Name Total Dose sodium chloride 0.9% infusion Cannot be calculated Anesthesia Record Intraprocedure I/O Totals Intake sodium chloride 0.9% infusion 350.00 mL Total Intake 350 mL Specimen: No specimens collected Staff: Technical Support Representative: Kaylah Hu Person: Desrie Drains and/or Catheters: Urethral Catheter Latex 16 Fr. (Active) Site Assessment Clean;Skin intact 03/09/24 1208 Tourniquet Times: Implants: Implants Type Name Action Serial No. Shunt STENT, POLARIS ULTRA 5FR 24CM, DISPOSABLE - [id number] Implanted Indications: Genet Booth is an 79 y.o. male who is having surgery for Calculus of ureter [N20.1] Urinary retention [R33.9]. The patient was seen in the preoperative area. The risks, benefits, complications, treatment options, non-operative alternatives, expected recovery and outcomes were discussed with the patient. The possibilities of reaction to medication, pulmonary aspiration, injury to surrounding structures, bleeding, recurrent infection, the need for additional procedures, failure to diagnose a condition, and creating a complication requiring transfusion or operation were discussed with the patient. The patient concurred with the proposed plan, giving informed consent. The site of surgery was properly noted/marked if necessary per policy. The patient has been actively warmed in preoperative area. Preoperative diagnosis: hydronephrosis Postoperative diagnosis: Same Procedure: cystoscopy with Right RPG and ureteroscopy and Right stent change, left nephroectomy tube removal Physician: OLVIN Anesthesia: Gen. Estimated blood loss: None Indications and consent: The patient presents with known hydronephrosis. After the risks, benefits,alternatives, and indications of the procedure were explained to the patient they consented. Procedure: The patient was brought to the operating room and placed on the table in the supine position. After adequate anesthesia was obtained, the patient was prepped and draped in the standard surgical fashion. First, the cystoscope was inserted into the bladder. Formal cystoscopy was performed.The previously placed stent was seen and grasped and brought out. A guidewire was placed up the exis ting stent into the renal pelvis using X-Ray guidance. The stent was then removed. We then performed ureteroscopy with retrograde pyelogram. This did not show any evidence of mass or stone in the ureter. The retrograde pyelogram did show persistent hydronephrosis. At this point a new stent was placed over the existing guidewire. This was done under fluoroscopic vision. Proper positioning was confirmed.The patient tolerated the procedure well and there no complications. The left Nephrostomy tube was removed. Attending Attestation: I was present and scrubbed for the entire procedure. John Bah [facility] Work Phone: [phone] Nurse Note* Kaylah Iyer RN - 03/09/2024 11:[address] Bah aware of Iodinated Contrast Media allergy. Omnipaque to be used. [facility]10-08-2024 History and physical note* John Bah MD - 03/09/2024 10:05 AM EDT History Of Present Illness Genet Booth is a 79 y.o. male presenting with hydro and urinary retention. 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 His smoking use included cigarettes. He has never used smokeless tobacco. He reports that he does not currently use alcohol. He reports that he does not use drugs. Family History Family History Problem Relation Name Age of Onset Heart failure Mother Alzheimer's disease Father Allergies Bupropion, Iodinated contrast media, Meloxicam, Ciprofloxacin, and Iodine Review of Systems Constitutional: Negative for chills and fever. HENT: Negative. Eyes: Negative. Respiratory: Negative for cough and shortness of breath. Cardiovascular: Negative for chest pain and leg swelling. Gastrointestinal: Negative for nausea. Endocrine: Negative. Genitourinary: Negative for difficulty urinating. Negative except for documented in HPI Allergic/Immunologic: Negative. Neurological: Alert & oriented X 3 Hematological: Denies blood thinners Psychiatric/Behavioral: Negative. Physical Exam Vitals and nursing note reviewed. Pulmonary: Effort: Pulmonary effort is normal. Abdominal: Palpations: Abdomen is soft. Tenderness: There is no abdominal tenderness. Genitourinary: Comments: Kidneys non palpable bilaterally Bladder non palpable or tender Neurological: Mental Status: He is alert. Last Recorded Vitals Blood pressure 137/59, pulse 89, temperature 37.2 C (99 F), temperature source Temporal, resp. rate25, height 1.803 m (5' 10.98), weight 98.7 kg (217 lb 9.5 oz), SpO2 92%. Assessment/Plan Assessment & Plan Pyelonephritis Calculus of ureter Urinary retention Plan right stent change, attempt left stent placement, removal of left nephrostomy tube and SP placement John Bah MD [facility] Work Phone: [phone] 465-117310-08-2024 History and physical note* John Bah MD - 03/09/2024 10:05 AM EDT History Of Present Illness Genet Booth is a 79 y.o. male presenting with hydro and urinary retention. 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 His smoking use included cigarettes. He has never used smokeless tobacco. He reports that he does not currently use alcohol. He reports that he does not use drugs. Family History Family History Problem Relation Name Age of Onset Heart failure Mother Alzheimer's disease Father Allergies Bupropion, Iodinated contrast media, Meloxicam, Ciprofloxacin, and Iodine Review of Systems Constitutional: Negative for chills and fever. HENT: Negative. Eyes: Negative. Respiratory: Negative for cough and shortness of breath. Cardiovascular: Negative for chest pain and leg swelling. Gastrointestinal: Negative for nausea. Endocrine: Negative. Genitourinary: Negative for difficulty urinating. Negative except for documented in HPI Allergic/Immunologic: Negative. Neurological: Alert & oriented X 3 Hematological: Denies blood thinners Psychiatric/Behavioral: Negative. Physical Exam Vitals and nursing note reviewed. Pulmonary: Effort: Pulmonary effort is normal. Abdominal: Palpations: Abdomen is soft. Tenderness: There is no abdominal tenderness. Genitourinary: Comments: Kidneys non palpable bilaterally Bladder non palpable or tender Neurological: Mental Status: He is alert. Last Recorded Vitals Blood pressure 137/59, pulse 89, temperature 37.2 C (99 F), temperature source Temporal, resp. rate25, height 1.803 m (5' 10.98), weight 98.7 kg (217 lb 9.5 oz), SpO2 92%. Assessment/Plan Assessment & Plan Pyelonephritis Calculus of ureter Urinary retention Plan right stent change, attempt left stent placement, removal of left nephrostomy tube and SP placement John Bah MD * Daily Coates, DO - 03/05/2024 4:15 PM EDT HPI Genet Booth is a 79 y.o. 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 Patient states that he had been doing well up until 2 days ago. He developed severe abdominal pain which he describes as sharp, constant, 10/10 in severity, located throughout abdomen with no radiation, unrelievedwith Tylenol. He thinks he may have had a fever but did not take temperature at home. He did admit to having nausea briefly and threw up once at [facility]. Denies experiencing chills, headaches,vision changes,chest pain, and has not been around any sick contacts. Patient also admits to worsening weakness, prior to becoming ill 2 days ago he was able to ambulate with a walker and cane but c urrently feels as if legs will give out. At [facility], patient was febrile with fever of 101.[address] obtained there revealed right pyelonephritis. 12 Point ROS negative unless noted in above HPI ED Course Vitals - BP (!) 123/49 (BP Location: Left arm, Patient Position: Lying) Pulse 84 Temp 35.5 C (95.9 F) (Temporal) Resp 21 Wt 104 kg (229 lb 0.9 oz) SpO2 97% Labs - Results for orders placed or performed during the hospital encounter of 03/05/24 (from the past 24 hour(s)) CBC and Auto Differential Result Value Ref Range WBC 10.0 4.4 - 11.3 x10*3/uL nRBC 0.0 0.0 - 0.0 /100 WBCs RBC 2.94 (L) 4.50 - 5.90 x10*6/uL Hemoglobin 8.9 (L) 13.5 - 17.5 g/dL Hematocrit 28.7 (L) 41.0 - 52.0 % MCV 98 80 - 100 fL MCH 30.3 26.0 - 34.0 pg MCHC 31.0 (L) 32.0 - 36.0 g/dL RDW 15.0 (H) 11.5 - 14.5 % Platelets 207 150 - 450 x10*3/uL Neutrophils % 80.4 40.0 - 80.0 % Immature Granulocytes %, Automated 0.4 0.0 - 0.9 % Lymphocytes % 10.2 13.0 - 44.0 % Monocytes % 7.3 2.0 - 10.0 % Eosinophils % 1.4 0.0 - 6.0 % Basophils % 0.3 0.0 - 2.0 % Neutrophils Absolute 8.05 (H) 1.60 - 5.50 x10*3/uL Immature Granulocytes Absolute, Automated 0.04 0.00 - 0.50 x10*3/uL Lymphocytes Absolute 1.02 0.80 - 3.00 x10*3/uL Monocytes Absolute 0.73 0.05 - 0.80 x10*3/uL Eosinophils Absolute 0.14 0.00 - 0.40 x10*3/uL Basophils Absolute 0.03 0.00 - 0.10 x10*3/uL Comprehensive Metabolic Panel Result Value Ref Range Glucose 104 (H) 74 - 99 mg/dL Sodium 137 136 - 145 mmol/L Potassium 5.8 (H) 3.5 - 5.3 mmol/L Chloride 101 98 - 107 mmol/L Bicarbonate 28 21 - 32 mmol/L Anion Gap 14 10 - 20 mmol/L Urea Nitrogen 52 (H) 6 - 23 mg/dL Creatinine 5.18 (H) 0.50 - 1.30 mg/dL eGFR 11 (L) >60 mL/min/1.73m*2 Calcium 8.3 (L) 8.6 - 10.3 mg/dL Albumin 3.1 (L) 3.4 - 5.0 g/dL Alkaline Phosphatase 59 33 - 136 U/L Total Protein 6.4 6.4 - 8.2 g/dL AST 10 9 - 39 U/L Bilirubin, Total 0.4 0.0 - 1.2 mg/dL ALT 11 10 - 52 U/L Magnesium Result Value Ref Range Magnesium 1.84 1.60 - 2.40 mg/dL Phosphorus Result Value Ref Range Phosphorus 3.3 2.5 - 4.9 mg/dL Light Blue Top Result Value Ref Range Extra Tube Hold for add-ons. SST TOP Result Value Ref Range Extra Tube Hold for add-ons. Khan Top Result Value Ref Range Extra Tube Hold for add-ons. Blood Culture Specimen: Dialysis; Blood culture Result Value Ref Range Blood Culture Loaded on Instrument - Culture in progress Blood Culture Specimen: Peripheral Venipuncture; Blood culture Result Value Ref Range Blood Culture Loaded on Instrument - Culture in progress Urinalysis with Reflex Culture and Microscopic Result Value Ref Range Color, Urine Light-[place] (N) Light-Yellow, Yellow, Dark-Yellow Appearance, Urine Ex.Turbid (N) Clear Specific [place], Urine 1.011 1.005 - 1.035 pH, Urine 8.0 5.0, 5.5, 6.0, 6.5, 7.0, 7.5, 8.0 Protein, Urine 300 (3+) (A) NEGATIVE, 10 (TRACE), 20 (TRACE) mg/dL Glucose, Urine Normal Normal mg/dL Blood, Urine OVER (3+) (A) NEGATIVE Ketones, Urine NEGATIVE NEGATIVE mg/dL Bilirubin, Urine NEGATIVE NEGATIVE Urobilinogen, Urine Normal Normal mg/dL Nitrite, Urine NEGATIVE NEGATIVE Leukocyte Esterase, Urine 500 Doris/ L (A) NEGATIVE Extra Urine Khan Tube Result Value Ref Range Extra Tube Hold for add-ons. Microscopic Only, Urine Result Value Ref Range WBC, Urine >50 (A) 1-5, NONE /HPF WBC Clumps, Urine MODERATE Reference range not established. /HPF RBC, Urine >20 (A) NONE, 1-2, 3-5 /HPF Bacteria, Urine 1+ (A) NONE SEEN /HPF CBC Result Value Ref Range WBC 7.3 4.4 - 11.3 x10*3/uL nRBC 0.0 0.0 - 0.0 /100 WBCs RBC 2.69 (L) 4.50 - 5.90 x10*6/uL Hemoglobin 8.2 (L) 13.5 - 17.5 g/dL Hematocrit 26.4 (L) 41.0 - 52.0 % MCV 98 80 - 100 fL MCH 30.5 26.0 - 34.0 pg MCHC 31.1 (L) 32.0 - 36.0 g/dL RDW 15.0 (H) 11.5 - 14.5 % Platelets 208 150 - 450 x10*3/uL Renal Function Panel Result Value Ref Range Glucose 101 (H) 74 - 99 mg/dL Sodium 136 136 - 145 mmol/L Potassium 4.8 3.5 - 5.3 mmol/L Chloride 100 98 - 107 mmol/L Bicarbonate 28 21 - 32 mmol/L Anion Gap 13 10 - 20 mmol/L Urea Nitrogen 60 (H) 6 - 23 mg/dL Creatinine 5.97 (H) 0.50 - 1.30 mg/dL eGFR 9 (L) >60 mL/min/1.73m*2 Calcium 8.1 (L) 8.6 - 10.3 mg/dL Phosphorus 4.2 2.5 - 4.9 mg/dL Albumin 2.9 (L) 3.4 - 5.0 g/dL Magnesium Result Value Ref Range Magnesium 1.97 1.60 - 2.40 mg/dL Interventions - Medications levothyroxine (Synthroid, Levoxyl) tablet 88 mcg (88 mcg oral Given 03/06/24 06) oxybutynin (Ditropan) tablet 5 mg (5 mg oral Given 03/06/24 0815) oxyCODONE (Roxicodone) immediate release tablet 5 mg (has no administration in time range) polyethylene glycol (Glycolax, Miralax) packet 17 g (17 g oral Not Given 03/05/24 1421) simethicone (Mylicon) chewable tablet 160 mg (has no administration in time range) piperacillin-tazobactam (Zosyn) 2.25 g in dextrose (iso) IV 50 mL (0 g intravenous Stopped 03/06/24 0646) acetaminophen (Tylenol) tablet 650 mg (650 mg oral Given 03/05/24 1534) ondansetron (Zofran) injection 4 mg (has no administration in time range) heparin (porcine) injection 5,000 Units (5,000 Units subcutaneous Given 03/06/24 06) bisacodyl (Dulcolax) EC tablet 10 mg (has no administration in time range) sodium zirconium cyclosilicate (Lokelma) packet 10 g (10 g oral Given 03/06/24 7434) oxygen (O2) therapy (2 L/min inhalation Rate Verify Medical Gas 03/06/24 0245) Past Medical History Past Medical History: Diagnosis Date Jamison catheter in place on admission Hypertension Kidney disease Prostate cancer (Multi) Sleep apnea Surgical History Past Surgical History: Procedure Laterality Date HIP FRACTURE SURGERY Left 04/02/2023 hemiarthroplasty INVASIVE VASCULAR PROCEDURE N/A 04/10/2023 Procedure: Tunnel Dialysis Catheter Insertion; Surgeon: Tiana De León DO; 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 His smoking use included cigarettes. He has never used smokeless tobacco. He reports that he does not currently use alcohol. He reports that he does not use drugs. Allergies Bupropion, Iodinated contrast media, Meloxicam, Ciprofloxacin, and Iodine Medications Current Facility-Administered Medications: acetaminophen (Tylenol) tablet 650 mg, 650 mg, oral, q4h PRN, Daily Coates DO, 650 mg at 03/05/24 1534 bisacodyl (Dulcolax) EC tablet 10 mg, 10 mg, oral, Daily PRN, Daily Coates DO heparin (porcine) injection 5,000 Units, 5,000 Units, subcutaneous, q8h, Daily Coates DO, 5,000 Units at 03/06/24 0609 levothyroxine (Synthroid, Levoxyl) tablet 88 mcg, 88 mcg, oral, Daily before breakfast, Daily Coates DO, 88 mcg at 03/06/24 0609 ondansetron (Zofran) injection 4 mg, 4 mg, intravenous, q8h PRN, Daily Coates DO oxybutynin (Ditropan) tablet 5 mg, 5 mg, oral, BID, Daily Coates DO, 5 mg at 03/06/24 0815 oxyCODONE (Roxicodone) immediate release tablet 5 mg, 5 mg, oral, q6h PRN, Daily Coates DO oxygen (O2) therapy, , inhalation, Continuous PRN - O2/gases, Emily Bustillos MD, 2 L/min at 03/06/24 0245 piperacillin-tazobactam (Zosyn) 2.25 g in dextrose (iso) IV 50 mL, 2.25 g, intravenous, q8h, DO Bertrand, Stopped at 03/06/24 0646 polyethylene glycol (Glycolax, Miralax) packet 17 g, 17 g, oral, Daily, Daily Coates DO simethicone (Mylicon) chewable tablet 160 mg, 160 mg, oral, q8h PRN, Daily Coates DO sodium zirconium cyclosilicate (Lokelma) packet 10 g, 10 g, oral, q8h, Daily Coates DO, 10 g at 03/06/24 0424 Objective Vital Signs: Blood pressure (!) 123/49, pulse 84, temperature 35.5 C (95.9 F), temperature source Temporal, resp. rate 21, height 1.803 m (5' 11), weight 104 kg (229 lb 0.9 oz), SpO2 97%. Physical Exam Constitutional: Appearance: Normal appearance. He is obese. HENT: Head: Normocephalic and atraumatic. Mouth/Throat: Mouth: Mucous membranes are moist. Eyes: Extraocular Movements: Extraocular movements intact. Conjunctiva/sclera: Conjunctivae normal. Cardiovascular: Rate and Rhythm: Normal rate and regular rhythm. Pulses: Normal pulses. Heart sounds: Normal heart sounds. Pulmonary: Effort: Pulmonary effort is normal. Breath sounds: Normal breath sounds. Abdominal: General: Abdomen is flat. Bowel sounds are normal. Palpations: Abdomen is soft. Skin: General: Skin is warm. Neurological: General: No focal deficit present. Mental Status: He is alert and oriented to person, place, and time. Motor: Weakness present. Psychiatric: Mood and Affect: Mood normal. Behavior: Behavior normal. Thought Content: Thought content normal. Wt Readings from Last 6 Encounters: 03/06/24 104 kg (229 lb 0.9 oz) 02/09/24 100 kg (221 lb 6.4 oz) 12/15/23 96.2 kg (212 lb) 09/19/23 96.2 kg (212 lb) 06/12/23 97.5 kg (215 lb) 05/30/23 105 kg (231 lb) I/Os: Intake/Output Summary (Last 24 hours) at 03/06/2024 0835 Last data filed at 03/06/2024 0609 Gross per 24 hour Intake 840 ml Output 1085 ml Net -245 ml Labs: Results for orders placed or performed during the hospital encounter of 03/05/24 (from the past 24 hour(s)) CBC and Auto Differential Result Value Ref Range WBC 10.0 4.4 - 11.3 x10*3/uL nRBC 0.0 0.0 - 0.0 /100 WBCs RBC 2.94 (L) 4.50 - 5.90 x10*6/uL Hemoglobin 8.9 (L) 13.5 - 17.5 g/dL Hematocrit 28.7 (L) 41.0 - 52.0 % MCV 98 80 - 100 fL MCH 30.3 26.0 - 34.0 pg MCHC 31.0 (L) 32.0 - 36.0 g/dL RDW 15.0 (H) 11.5 - 14.5 % Platelets 207 150 - 450 x10*3/uL Neutrophils % 80.4 40.0 - 80.0 % Immature Granulocytes %, Automated 0.4 0.0 - 0.9 % Lymphocytes % 10.2 13.0 - 44.0 % Monocytes % 7.3 2.0 - 10.0 % Eosinophils % 1.4 0.0 - 6.0 % Basophils % 0.3 0.0 - 2.0 % Neutrophils Absolute 8.05 (H) 1.60 - 5.50 x10*3/uL Immature Granulocytes Absolute, Automated 0.04 0.00 - 0.50 x10*3/uL Lymphocytes Absolute 1.02 0.80 - 3.00 x10*3/uL Monocytes Absolute 0.73 0.05 - 0.80 x10*3/uL Eosinophils Absolute 0.14 0.00 - 0.40 x10*3/uL Basophils Absolute 0.03 0.00 - 0.10 x10*3/uL Comprehensive Metabolic Panel Result Value Ref Range Glucose 104 (H) 74 - 99 mg/dL Sodium 137 136 - 145 mmol/L Potassium 5.8 (H) 3.5 - 5.3 mmol/L Chloride 101 98 - 107 mmol/L Bicarbonate 28 21 - 32 mmol/L Anion Gap 14 10 - 20 mmol/L Urea Nitrogen 52 (H) 6 - 23 mg/dL Creatinine 5.18 (H) 0.50 - 1.30 mg/dL eGFR 11 (L) >60 mL/min/1.73m*2 Calcium 8.3 (L) 8.6 - 10.3 mg/dL Albumin 3.1 (L) 3.4 - 5.0 g/dL Alkaline Phosphatase 59 33 - 136 U/L Total Protein 6.4 6.4 - 8.2 g/dL AST 10 9 - 39 U/L Bilirubin, Total 0.4 0.0 - 1.2 mg/dL ALT 11 10 - 52 U/L Magnesium Result Value Ref Range Magnesium 1.84 1.60 - 2.40 mg/dL Phosphorus Result Value Ref Range Phosphorus 3.3 2.5 - 4.9 mg/dL Light Blue Top Result Value Ref Range Extra Tube Hold for add-ons. SST TOP Result Value Ref Range Extra Tube Hold for add-ons. Khan Top Result Value Ref Range Extra Tube Hold for add-ons. Blood Culture Specimen: Dialysis; Blood culture Result Value Ref Range Blood Culture Loaded on Instrument - Culture in progress Blood Culture Specimen: Peripheral Venipuncture; Blood culture Result Value Ref Range Blood Culture Loaded on Instrument - Culture in progress Urinalysis with Reflex Culture and Microscopic Result Value Ref Range Color, Urine Light-[place] (N) Light-Yellow, Yellow, Dark-Yellow Appearance, Urine Ex.Turbid (N) Clear Specific [place], Urine 1.011 1.005 - 1.035 pH, Urine 8.0 5.0, 5.5, 6.0, 6.5, 7.0, 7.5, 8.0 Protein, Urine 300 (3+) (A) NEGATIVE, 10 (TRACE), 20 (TRACE) mg/dL Glucose, Urine Normal Normal mg/dL Blood, Urine OVER (3+) (A) NEGATIVE Ketones, Urine NEGATIVE NEGATIVE mg/dL Bilirubin, Urine NEGATIVE NEGATIVE Urobilinogen, Urine Normal Normal mg/dL Nitrite, Urine NEGATIVE NEGATIVE Leukocyte Esterase, Urine 500 Doris/ L (A) NEGATIVE Extra Urine Khan Tube Result Value Ref Range Extra Tube Hold for add-ons. Microscopic Only, Urine Result Value Ref Range WBC, Urine >50 (A) 1-5, NONE /HPF WBC Clumps, Urine MODERATE Reference range not established. /HPF RBC, Urine >20 (A) NONE, 1-2, 3-5 /HPF Bacteria, Urine 1+ (A) NONE SEEN /HPF CBC Result Value Ref Range WBC 7.3 4.4 - 11.3 x10*3/uL nRBC 0.0 0.0 - 0.0 /100 WBCs RBC 2.69 (L) 4.50 - 5.90 x10*6/uL Hemoglobin 8.2 (L) 13.5 - 17.5 g/dL Hematocrit 26.4 (L) 41.0 - 52.0 % MCV 98 80 - 100 fL MCH 30.5 26.0 - 34.0 pg MCHC 31.1 (L) 32.0 - 36.0 g/dL RDW 15.0 (H) 11.5 - 14.5 % Platelets 208 150 - 450 x10*3/uL Renal Function Panel Result Value Ref Range Glucose 101 (H) 74 - 99 mg/dL Sodium 136 136 - 145 mmol/L Potassium 4.8 3.5 - 5.3 mmol/L Chloride 100 98 - 107 mmol/L Bicarbonate 28 21 - 32 mmol/L Anion Gap 13 10 - 20 mmol/L Urea Nitrogen 60 (H) 6 - 23 mg/dL Creatinine 5.97 (H) 0.50 - 1.30 mg/dL eGFR 9 (L) >60 mL/min/1.73m*2 Calcium 8.1 (L) 8.6 - 10.3 mg/dL Phosphorus 4.2 2.5 - 4.9 mg/dL Albumin 2.9 (L) 3.4 - 5.0 g/dL Magnesium Result Value Ref Range Magnesium 1.97 1.60 - 2.40 mg/dL Imaging: CT abdomen pelvis wo IV contrast Result Date: 03/05/2024 STUDY: CT Abdomen and Pelvis without IV Contrast; 03/05/2024, 7:11 PM. INDICATION: Pyelonephritis, concern for fecal fistula. COMPARISON: CT CAP: 02/10/24. ACCESSION NUMBER(S): [id number] ORDERING CLINICIAN: DAILY COATES TECHNIQUE: CT of the abdomen and pelvis was performed. Contiguous axial images were obtained at 3 mm slice thickness through the abdomen and pelvis. Coronal and sagittal reconstructions at 3 mm slice thickness were performed. No intravenous contrast was administered. Automated mA/kV exposure control was utilized and patient examination was performed in strict accordance with principles of ALARA. FINDINGS: Please note that the evaluation of vessels, lymph nodes and organs is limited without intravenous contrast. Abdomen: No significant abnormalities are detectable in the liver, spleen, pancreas, adrenal glands, or biliary system. A percutaneous left nephrostomy remains in place, coiled in the left renal pelvis. Left kidney is moderately atrophic, similar to prior. Right nephroureteral stent also remains, unchanged in position. There is interval development of moderate proximal hydronephrosis of the right renal pelvis and calyces with transition at the UPJ. There is minimal air within the dilated right renal calyces. There is no detectable adjacent fistula with bowel. Abdominal aorta is tortuous, normal caliber. There is no bulky or localizing retroperitoneal lymphadenopathy. There is no retroperitoneal hematoma. The stomach is distended. There is minimal air distention in the small bowel. There is moderate stool burden colon, with scattered diverticulosis. There is no abscess, obstruction, or free air. Pelvis: The bladder is decompressed with a Jamison catheter in place. Stool distends the rectum. There are numerous calcified phleboliths. There are noinguinal hernias. Skeletal: Left hip arthroplasty is in place. There is mild spondylosis throughoutthe lumbar spine, including sclerosis in the posterior elements of the lower lumbar spine. Lower chest: Heart is top normal size. There is focal bibasilar atelectasis. There are no pleural effusions. 1. Interval development of moderate proximal right hydronephrosis with transition at the UPJ. 2. Indwelling right nephroureteral stent remains in place traversing the UPJ. 3. There is minimal air within the distended right renal calyces. 4. No detectable fistula to adjacent bowel. 5. Remainder as above. Signed by Ronnie Driver MD Assessment & Plan Genet Booth is a 79 y.o. male admitted to [facility] for management of: Right pyelonephritis: CT obtained from [place] is not available for review. CT abdomen & pelvis obtained here and did not reveal findings suggestive of pyelonephritis. Urinalysis is suggestive of UTI. Based on prior urine cultures I will start Zosyn renally dosed. Moderate Right Hydronephrosis: CT scan comments on interval development of hydronephrosis with transition at the UPJ. Urology consulted ESRD on HD (M/W/F): Currently appears euvolemic. No urgent need for dialysis. Nephrology consulted for HD when appropriate. Chronic Indwelling Jamison: Replaced yesterday, minimal urine output Mild hyperkalemia: Start Lokelma Continue home medications for chronic medical conditions. Disposition: Anticipate LOS > 2 midnights. Daily Coates DO Internal Medicine I spent a total of 60 minutes on the date of the service which included preparing to see the patient, [id number] patient care, completing clinical documentation, obtaining and/or reviewing separately obtained history, performing a medically appropriate examination, counseling and educating the pat ient/family/caregiver, ordering medications, tests, or procedures, independently interpreting results (not separately reported), and communicating results to the patient/family/caregiver. documented in this [facility] Work Phone: [phone]) 415-444510-07-2024 Note* Post-Procedure Note - Nile Owens RN - 03/08/2024 4:07 PM EDT Report to Receiving RN: Report To: Delmy Time Report Called: face to face report 1500 Hand-Off Communication: tx ended 36 minutes early d/t to machine issues; vss post; no s/s of distress post tx Complications During Treatment: Yes, machine issues Ultrafiltration Treatment: Yes, 650 ml Medications Administered During Dialysis: No Blood Products Administered During Dialysis: No Labs Sent During Dialysis: No Heparin Drip Rate Changes: No Dialysis Catheter Dressing: clean, dry and intact Last Dressing Change: 03/08/24 Electronic Signatures: Nile Owens RN (Signed CE) Last Updated: 4:07 PM by NILE OWENS [facility]10-07-2024 Consult note* Tiana De León DO - 03/08/2024 11:02 AM EDTAssociated Order(s): IP CONSULT TO NEPHROLOGY Reason For Consult End-stage renal disease History Of Present Illness Gente Booth is a 79 y.o. male presenting with abdominal pain. He presented to an outside hospital secondary to severe abdominal pain. It came on pretty quickly He was diagnosed at the outside hospital with pyelonephritis He was transferred here due to need for dialysis Today he states he is feeling much better he is feeling back to his normal self Past Medical History He has a past medical history of Jamison catheter in place on admission, Hypertension, Kidney disease, Prostate cancer (Multi), and Sleep apnea. Surgical History He has a past surgical history that includes Total knee arthroplasty (Right); Hip fracture surgery (Left, 04/02/2023); and Invasive Vascular Procedure (N/A, 04/10/2023). Social History He reports that he has quit smoking. His smoking use included cigarettes. He has never used smokeless tobacco. He reports that he does not currently use alcohol. He reports that he does not use drugs. Family History Family History Problem Relation Name Age of Onset Heart failure Mother Alzheimer's disease Father Allergies Bupropion, Iodinated contrast media, Meloxicam, Ciprofloxacin, and Iodine Review of Systems A full 10 point review of systems was obtained is negative except HPI as above Physical Exam Physical Exam Constitutional: Appearance: Normal appearance. He is obese. HENT: Head: Normocephalic and atraumatic. Right Ear: External ear normal. Left Ear: External ear normal. Nose: Nose normal. Mouth/Throat: Mouth: Mucous membranes are moist. Pharynx: Oropharynx is clear. Eyes: Extraocular Movements: Extraocular movements intact. Conjunctiva/sclera: Conjunctivae normal. Pupils: Pupils are equal, round, and reactive to light. Neck: Comments: Right internal jugular tunneled dialysis catheter Cardiovascular: Rate and Rhythm: Normal rate and regular rhythm. Pulmonary: Effort: Pulmonary effort is normal. Breath sounds: Normal breath sounds. Abdominal: General: Abdomen is flat. Palpations: Abdomen is soft. Musculoskeletal: Comments: Right upper extremity AV fistula with good thrill and bruit Skin: General: Skin is warm and dry. Neurological: General: No focal deficit present. Mental Status: He is alert and oriented to person, place, and time. Psychiatric: Mood and Affect: Mood normal. Behavior: Behavior normal. I&O 24HR Intake/Output Summary (Last 24 hours) at 03/08/2024 1102 Last data filed at 03/08/2024 0900 Gross per 24 hour Intake 760 ml Output 1475 ml Net -715 ml Vitals 24HR Heart Rate: [60-87] Temp: [36.2 C (97.2 F)-36.8 C (98.2 F)] Resp: [18-24] BP: (111-128)/(50-56) Weight: [102 kg (224 lb 10.4 oz)] SpO2: [91 %-95 %] Scheduled medications heparin (porcine), 5,000 Units, subcutaneous, q8h [START ON 03/09/2024] heparin, 2,000 Units, intra-catheter, After Dialysis [START ON 03/09/2024] heparin, 2,000 Units, intra-catheter, After Dialysis levothyroxine, 88 mcg, oral, Daily before breakfast lubricating eye drops, 2 drop, Both Eyes, BID oxybutynin, 5 mg, oral, BID piperacillin-tazobactam, 2.25 g, intravenous, q8h polyethylene glycol, 17 g, oral, Daily Continuous medications PRN medications PRN medications: acetaminophen, bisacodyl, ondansetron, oxyCODONE, oxygen, simethicone Relevant Results Results reviewed Assessment/Plan Chronic kidney disease stage V Anemia Hypertension Bilateral hydronephrosis with right stent in place ESBL E. coli UTI Plan: At this time we will order his dialysis treatments He is feeling better His urine is growing ESBL E. coli. I would suggest changing to a carbapenem Clinically he does seem better but is growing ESBL and data is not great from that standpoint Dialysis orders written Thanks for the consult Assessment & Plan Pyelonephritis Tiana De León DO [facility] Work Phone: 1([phone] 576-510410-07-2024 Consult note* Tiana De León DO - 03/08/2024 11:02 AM EDTAssociated Order(s): IP CONSULT TO NEPHROLOGY Reason For Consult End-stage renal disease History Of Present Illness Genet Booth is a 79 y.o. male presenting with abdominal pain. He presented to an outside hospital secondary to severe abdominal pain. It came on pretty quickly He was diagnosed at the outside hospital with pyelonephritis He was transferred here due to need for dialysis Today he states he is feeling much better he is feeling back to his normal self Past Medical History He has a past medical history of Jamison catheter in place on admission, Hypertension, Kidney disease, Prostate cancer (Multi), and Sleep apnea. Surgical History He has a past surgical history that includes Total knee arthroplasty (Right); Hip fracture surgery (Left, 04/02/2023); and Invasive Vascular Procedure (N/A, 04/10/2023). Social History He reports that he has quit smoking. His smoking use included cigarettes. He has never used smokeless tobacco. He reports that he does not currently use alcohol. He reports that he does not use drugs. Family History Family History Problem Relation Name Age of Onset Heart failure Mother Alzheimer's disease Father Allergies Bupropion, Iodinated contrast media, Meloxicam, Ciprofloxacin, and Iodine Review of Systems A full 10 point review of systems was obtained is negative except HPI as above Physical Exam Physical Exam Constitutional: Appearance: Normal appearance. He is obese. HENT: Head: Normocephalic and atraumatic. Right Ear: External ear normal. Left Ear: External ear normal. Nose: Nose normal. Mouth/Throat: Mouth: Mucous membranes are moist. Pharynx: Oropharynx is clear. Eyes: Extraocular Movements: Extraocular movements intact. Conjunctiva/sclera: Conjunctivae normal. Pupils: Pupils are equal, round, and reactive to light. Neck: Comments: Right internal jugular tunneled dialysis catheter Cardiovascular: Rate and Rhythm: Normal rate and regular rhythm. Pulmonary: Effort: Pulmonary effort is normal. Breath sounds: Normal breath sounds. Abdominal: General: Abdomen is flat. Palpations: Abdomen is soft. Musculoskeletal: Comments: Right upper extremity AV fistula with good thrill and bruit Skin: General: Skin is warm and dry. Neurological: General: No focal deficit present. Mental Status: He is alert and oriented to person, place, and time. Psychiatric: Mood and Affect: Mood normal. Behavior: Behavior normal. I&O 24HR Intake/Output Summary (Last 24 hours) at 03/08/2024 1102 Last data filed at 03/08/2024 0900 Gross per 24 hour Intake 760 ml Output 1475 ml Net -715 ml Vitals 24HR Heart Rate: [60-87] Temp: [36.2 C (97.2 F)-36.8 C (98.2 F)] Resp: [18-24] BP: (111-128)/(50-56) Weight: [102 kg (224 lb 10.4 oz)] SpO2: [91 %-95 %] Scheduled medications heparin (porcine), 5,000 Units, subcutaneous, q8h [START ON 03/09/2024] heparin, 2,000 Units, intra-catheter, After Dialysis [START ON 03/09/2024] heparin, 2,000 Units, intra-catheter, After Dialysis levothyroxine, 88 mcg, oral, Daily before breakfast lubricating eye drops, 2 drop, Both Eyes, BID oxybutynin, 5 mg, oral, BID piperacillin-tazobactam, 2.25 g, intravenous, q8h polyethylene glycol, 17 g, oral, Daily Continuous medications PRN medications PRN medications: acetaminophen, bisacodyl, ondansetron, oxyCODONE, oxygen, simethicone Relevant Results Results reviewed Assessment/Plan Chronic kidney disease stage V Anemia Hypertension Bilateral hydronephrosis with right stent in place ESBL E. coli UTI Plan: At this time we will order his dialysis treatments He is feeling better His urine is growing ESBL E. coli. I would suggest changing to a carbapenem Clinically he does seem better but is growing ESBL and data is not great from that standpoint Dialysis orders written Thanks for the consult Assessment & Plan Pyelonephritis Tiana De León DO documented in this [facility] Work Phone: [phone]) 375-472710-07-2024 Plan of care note* Care Plan - Delmy Powell RN - 03/08/2024 10:00 AM EDT Problem: Skin Goal: Participates in plan/prevention/treatment measures Outcome: Progressing Goal: Prevent/manage excess moisture Outcome: Progressing Goal: Prevent/minimize sheer/friction injuries Outcome: Progressing Goal: Promote/optimize nutrition Outcome: Progressing Problem: Dialysis Goal: I will slow progression of end-stage renal disease through participating in dialysis 3 times a week Outcome: Progressing Problem: Pain - Adult Goal: Verbalizes/displays adequate comfort level or baseline comfort level Outcome: Progressing Problem: Safety - Adult Goal: Free from fall injury Outcome: Progressing Problem: Discharge Planning Goal: Discharge to home or other facility with appropriate resources Outcome: Progressing Problem: Chronic Conditions and Co-morbidities Goal: Patient's chronic conditions and co-morbidity symptoms are monitored and maintained or improved Outcome: Progressing Problem: Infection related to problem list condition Goal: Infection will resolve through treatment Outcome: Progressing Problem: Infective UTI/pyelonephritis Goal: Manages/understands urgency, continence Outcome: Progressing Goal: No signs of neurosensory, musculoskeletal, cardiac changes Outcome: Progressing Goal: No worsening signs of infection Outcome: Progressing Goal: Stable weight and I&O Outcome: Progressing The clinical goals for the shift include pt will tolerate HD well with VSS [facility] Work Phone: [phone] 242-992910-07-2024 Note* Pre-Procedure Note - Nile Owens RN - 03/08/2024 8:57 AM EDT Report from Sending RN: Report From: Delmy Recent Surgery of Procedure: No Baseline Level of Consciousness (LOC): a/o x3 Oxygen Use: No Type: RA Diabetic: No Last BP Med Given Day of Dialysis: See MAR Last Pain Med Given: See MAR Lab Tests to be Obtained with Dialysis: No Blood Transfusion to be Given During Dialysis: No Available IV Access: Yes Medications to be Administered During Dialysis: No Continuous IV Infusion Running: No Restraints on Currently or in the Last 24 Hours: No Hand-Off Communication: DNR Dialysis Catheter Dressing: tbd Last Dressing Change: tbd [facility] Work Phone: [phone] 342-842510-07-2024 Plan of care note* Care Plan - Kimmy Hanna RN - 03/08/2024 3:32 AM EDT Problem: Skin Goal: Participates in plan/prevention/treatment measures Outcome: Progressing Goal: Prevent/manage excess moisture Outcome: Progressing Goal: Prevent/minimize sheer/friction injuries Outcome: Progressing Goal: Promote/optimize nutrition Outcome: Progressing Problem: Dialysis Goal: I will slow progression of end-stage renal disease through participating in dialysis 3 times a week Outcome: Progressing Problem: Pain - Adult Goal: Verbalizes/displays adequate comfort level or baseline comfort level Outcome: Progressing Problem: Safety - Adult Goal: Free from fall injury Outcome: Progressing Problem: Discharge Planning Goal: Discharge to home or other facility with appropriate resources Outcome: Progressing Problem: Chronic Conditions and Co-morbidities Goal: Patient's chronic conditions and co-morbidity symptoms are monitored and maintained or improved Outcome: Progressing Problem: Infection related to problem list condition Goal: Infection will resolve through treatment Outcome: Progressing Problem: Infective UTI/pyelonephritis Goal: Manages/understands urgency, continence Outcome: Progressing Goal: No signs of neurosensory, musculoskeletal, cardiac changes Outcome: Progressing Goal: No worsening signs of infection Outcome: Progressing Goal: Stable weight and I&O Outcome: Progressing The patient's goals for the shift include The clinical goals for the shift include Patient will sleep well this shift. [facility]10-06-2024 Plan of care note* Care Plan - Vivian Garcias RN - 03/07/2024 7:48 AM EDT The patient's goals for the shift include rest comfortably in bed The clinical goals for the shift include labs wnl by eos Pleasant patient who is alert and oriented. Respirations even and unlabored. Denies pain. No issuesnoted. Call light within reach, will continue to monitor. Problem: Skin Goal: Participates in plan/prevention/treatment measures Outcome: Progressing Goal: Prevent/manage excess moisture Outcome: Progressing Goal: Prevent/minimize sheer/friction injuries Outcome: Progressing Goal: Promote/optimize nutrition Outcome: Progressing Problem: Dialysis Goal: I will slow progression of end-stage renal disease through participating in dialysis 3 times a week Outcome: Progressing Problem: Pain - Adult Goal: Verbalizes/displays adequate comfort level or baseline comfort level Outcome: Progressing Problem: Safety - Adult Goal: Free from fall injury Outcome: Progressing Problem: Discharge Planning Goal: Discharge to home or other facility with appropriate resources Outcome: Progressing Problem: Chronic Conditions and Co-morbidities Goal: Patient's chronic conditions and co-morbidity symptoms are monitored and maintained or improved Outcome: Progressing Problem: Infection related to problem list condition Goal: Infection will resolve through treatment Outcome: Progressing Problem: Infective UTI/pyelonephritis Goal: Manages/understands urgency, continence Outcome: Progressing Goal: No signs of neurosensory, musculoskeletal, cardiac changes Outcome: Progressing Goal: No worsening signs of infection Outcome: Progressing Goal: Stable weight and I&O Outcome: Progressing [facility] Work Phone: 1(401) 929-331510-05-2024 Plan of care note* Care Plan - Félix Nixon RN - 03/06/2024 1:26 PM EDT The patient's goals for the shift include feel better The clinical goals for the shift include labs wnl by eos Over the shift, the patient did not make progress toward the following goals. Barriers to progression include dialysis. Recommendations to address these barriers include . [facility]10-04-2024 History and physical note* Daily Coates DO - 03/05/2024 4:15 PM EDT HPI Genet Booth is a 79 y.o. 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 Patient states that he had been doing well up until 2 days ago. He developed severe abdominal pain which he describes as sharp, constant, 10/10 in severity, located throughout abdomen with no radiation, unrelievedwith Tylenol. He thinks he may have had a fever but did not take temperature at home. He did admit to having nausea briefly and threw up once at [facility]. Denies experiencing chills, headaches,vision changes,chest pain, and has not been around any sick contacts. Patient also admits to worsening weakness, prior to becoming ill 2 days ago he was able to ambulate with a walker and cane but c urrently feels as if legs will give out. At [facility], patient was febrile with fever of 101.[address] obtained there revealed right pyelonephritis. 12 Point ROS negative unless noted in above HPI ED Course Vitals - BP (!) 123/49 (BP Location: Left arm, Patient Position: Lying) Pulse 84 Temp 35.5 C (95.9 F) (Temporal) Resp 21 Wt 104 kg (229 lb 0.9 oz) SpO2 97% Labs - Results for orders placed or performed during the hospital encounter of 03/05/24 (from the past 24 hour(s)) CBC and Auto Differential Result Value Ref Range WBC 10.0 4.4 - 11.3 x10*3/uL nRBC 0.0 0.0 - 0.0 /100 WBCs RBC 2.94 (L) 4.50 - 5.90 x10*6/uL Hemoglobin 8.9 (L) 13.5 - 17.5 g/dL Hematocrit 28.7 (L) 41.0 - 52.0 % MCV 98 80 - 100 fL MCH 30.3 26.0 - 34.0 pg MCHC 31.0 (L) 32.0 - 36.0 g/dL RDW 15.0 (H) 11.5 - 14.5 % Platelets 207 150 - 450 x10*3/uL Neutrophils % 80.4 40.0 - 80.0 % Immature Granulocytes %, Automated 0.4 0.0 - 0.9 % Lymphocytes % 10.2 13.0 - 44.0 % Monocytes % 7.3 2.0 - 10.0 % Eosinophils % 1.4 0.0 - 6.0 % Basophils % 0.3 0.0 - 2.0 % Neutrophils Absolute 8.05 (H) 1.60 - 5.50 x10*3/uL Immature Granulocytes Absolute, Automated 0.04 0.00 - 0.50 x10*3/uL Lymphocytes Absolute 1.02 0.80 - 3.00 x10*3/uL Monocytes Absolute 0.73 0.05 - 0.80 x10*3/uL Eosinophils Absolute 0.14 0.00 - 0.40 x10*3/uL Basophils Absolute 0.03 0.00 - 0.10 x10*3/uL Comprehensive Metabolic Panel Result Value Ref Range Glucose 104 (H) 74 - 99 mg/dL Sodium 137 136 - 145 mmol/L Potassium 5.8 (H) 3.5 - 5.3 mmol/L Chloride 101 98 - 107 mmol/L Bicarbonate 28 21 - 32 mmol/L Anion Gap 14 10 - 20 mmol/L Urea Nitrogen 52 (H) 6 - 23 mg/dL Creatinine 5.18 (H) 0.50 - 1.30 mg/dL eGFR 11 (L) >60 mL/min/1.73m*2 Calcium 8.3 (L) 8.6 - 10.3 mg/dL Albumin 3.1 (L) 3.4 - 5.0 g/dL Alkaline Phosphatase 59 33 - 136 U/L Total Protein 6.4 6.4 - 8.2 g/dL AST 10 9 - 39 U/L Bilirubin, Total 0.4 0.0 - 1.2 mg/dL ALT 11 10 - 52 U/L Magnesium Result Value Ref Range Magnesium 1.84 1.60 - 2.40 mg/dL Phosphorus Result Value Ref Range Phosphorus 3.3 2.5 - 4.9 mg/dL Light Blue Top Result Value Ref Range Extra Tube Hold for add-ons. SST TOP Result Value Ref Range Extra Tube Hold for add-ons. Khan Top Result Value Ref Range Extra Tube Hold for add-ons. Blood Culture Specimen: Dialysis; Blood culture Result Value Ref Range Blood Culture Loaded on Instrument - Culture in progress Blood Culture Specimen: Peripheral Venipuncture; Blood culture Result Value Ref Range Blood Culture Loaded on Instrument - Culture in progress Urinalysis with Reflex Culture and Microscopic Result Value Ref Range Color, Urine Light-[place] (N) Light-Yellow, Yellow, Dark-Yellow Appearance, Urine Ex.Turbid (N) Clear Specific [place], Urine 1.011 1.005 - 1.035 pH, Urine 8.0 5.0, 5.5, 6.0, 6.5, 7.0, 7.5, 8.0 Protein, Urine 300 (3+) (A) NEGATIVE, 10 (TRACE), 20 (TRACE) mg/dL Glucose, Urine Normal Normal mg/dL Blood, Urine OVER (3+) (A) NEGATIVE Ketones, Urine NEGATIVE NEGATIVE mg/dL Bilirubin, Urine NEGATIVE NEGATIVE Urobilinogen, Urine Normal Normal mg/dL Nitrite, Urine NEGATIVE NEGATIVE Leukocyte Esterase, Urine 500 Doris/ L (A) NEGATIVE Extra Urine Khan Tube Result Value Ref Range Extra Tube Hold for add-ons. Microscopic Only, Urine Result Value Ref Range WBC, Urine >50 (A) 1-5, NONE /HPF WBC Clumps, Urine MODERATE Reference range not established. /HPF RBC, Urine >20 (A) NONE, 1-2, 3-5 /HPF Bacteria, Urine 1+ (A) NONE SEEN /HPF CBC Result Value Ref Range WBC 7.3 4.4 - 11.3 x10*3/uL nRBC 0.0 0.0 - 0.0 /100 WBCs RBC 2.69 (L) 4.50 - 5.90 x10*6/uL Hemoglobin 8.2 (L) 13.5 - 17.5 g/dL Hematocrit 26.4 (L) 41.0 - 52.0 % MCV 98 80 - 100 fL MCH 30.5 26.0 - 34.0 pg MCHC 31.1 (L) 32.0 - 36.0 g/dL RDW 15.0 (H) 11.5 - 14.5 % Platelets 208 150 - 450 x10*3/uL Renal Function Panel Result Value Ref Range Glucose 101 (H) 74 - 99 mg/dL Sodium 136 136 - 145 mmol/L Potassium 4.8 3.5 - 5.3 mmol/L Chloride 100 98 - 107 mmol/L Bicarbonate 28 21 - 32 mmol/L Anion Gap 13 10 - 20 mmol/L Urea Nitrogen 60 (H) 6 - 23 mg/dL Creatinine 5.97 (H) 0.50 - 1.30 mg/dL eGFR 9 (L) >60 mL/min/1.73m*2 Calcium 8.1 (L) 8.6 - 10.3 mg/dL Phosphorus 4.2 2.5 - 4.9 mg/dL Albumin 2.9 (L) 3.4 - 5.0 g/dL Magnesium Result Value Ref Range Magnesium 1.97 1.60 - 2.40 mg/dL Interventions - Medications levothyroxine (Synthroid, Levoxyl) tablet 88 mcg (88 mcg oral Given 03/06/24 0609) oxybutynin (Ditropan) tablet 5 mg (5 mg oral Given 03/06/24 0815) oxyCODONE (Roxicodone) immediate release tablet 5 mg (has no administration in time range) polyethylene glycol (Glycolax, Miralax) packet 17 g (17 g oral Not Given 03/05/24 1421) simethicone (Mylicon) chewable tablet 160 mg (has no administration in time range) piperacillin-tazobactam (Zosyn) 2.25 g in dextrose (iso) IV 50 mL (0 g intravenous Stopped 03/06/24 0646) acetaminophen (Tylenol) tablet 650 mg (650 mg oral Given 03/05/24 1534) ondansetron (Zofran) injection 4 mg (has no administration in time range) heparin (porcine) injection 5,000 Units (5,000 Units subcutaneous Given 03/06/24 0609) bisacodyl (Dulcolax) EC tablet 10 mg (has no administration in time range) sodium zirconium cyclosilicate (Lokelma) packet 10 g (10 g oral Given 03/06/24 0424) oxygen (O2) therapy (2 L/min inhalation Rate Verify Medical Gas 03/06/24 0245) Past Medical History Past Medical History: Diagnosis Date Jamison catheter in place on admission Hypertension Kidney disease Prostate cancer (Multi) Sleep apnea Surgical History Past Surgical History: Procedure Laterality Date HIP FRACTURE SURGERY Left 04/02/2023 hemiarthroplasty INVASIVE VASCULAR PROCEDURE N/A 04/10/2023 Procedure: Tunnel Dialysis Catheter Insertion; Surgeon: Tiana De León DO; 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 His smoking use included cigarettes. He has never used smokeless tobacco. He reports that he does not currently use alcohol. He reports that he does not use drugs. Allergies Bupropion, Iodinated contrast media, Meloxicam, Ciprofloxacin, and Iodine Medications Current Facility-Administered Medications: acetaminophen (Tylenol) tablet 650 mg, 650 mg, oral, q4h PRN, Daily Coates DO, 650 mg at 03/05/24 1534 bisacodyl (Dulcolax) EC tablet 10 mg, 10 mg, oral, Daily PRN, Daily Coates DO heparin (porcine) injection 5,000 Units, 5,000 Units, subcutaneous, q8h, Daily Coates DO, 5,000 Units at 03/06/24 0609 levothyroxine (Synthroid, Levoxyl) tablet 88 mcg, 88 mcg, oral, Daily before breakfast, Daily Coates DO, 88 mcg at 03/06/24 0609 ondansetron (Zofran) injection 4 mg, 4 mg, intravenous, q8h PRN, Daily Coates DO oxybutynin (Ditropan) tablet 5 mg, 5 mg, oral, BID, Daily Coates DO, 5 mg at 03/06/24 0815 oxyCODONE (Roxicodone) immediate release tablet 5 mg, 5 mg, oral, q6h PRN, Daily Coates DO oxygen (O2) therapy, , inhalation, Continuous PRN - O2/gases, Emily Bustillos MD, 2 L/min at 03/06/24 0245 piperacillin-tazobactam (Zosyn) 2.25 g in dextrose (iso) IV 50 mL, 2.25 g, intravenous, q8h, DO Bertrand, Stopped at 03/06/24 0646 polyethylene glycol (Glycolax, Miralax) packet 17 g, 17 g, oral, Daily, Daily Coates DO simethicone (Mylicon) chewable tablet 160 mg, 160 mg, oral, q8h PRN, Daily Coates DO sodium zirconium cyclosilicate (Lokelma) packet 10 g, 10 g, oral, q8h, Daily Coates DO, 10 g at 03/06/24 0424 Objective Vital Signs: Blood pressure (!) 123/49, pulse 84, temperature 35.5 C (95.9 F), temperature source Temporal, resp. rate 21, height 1.803 m (5' 11), weight 104 kg (229 lb 0.9 oz), SpO2 97%. Physical Exam Constitutional: Appearance: Normal appearance. He is obese. HENT: Head: Normocephalic and atraumatic. Mouth/Throat: Mouth: Mucous membranes are moist. Eyes: Extraocular Movements: Extraocular movements intact. Conjunctiva/sclera: Conjunctivae normal. Cardiovascular: Rate and Rhythm: Normal rate and regular rhythm. Pulses: Normal pulses. Heart sounds: Normal heart sounds. Pulmonary: Effort: Pulmonary effort is normal. Breath sounds: Normal breath sounds. Abdominal: General: Abdomen is flat. Bowel sounds are normal. Palpations: Abdomen is soft. Skin: General: Skin is warm. Neurological: General: No focal deficit present. Mental Status: He is alert and oriented to person, place, and time. Motor: Weakness present. Psychiatric: Mood and Affect: Mood normal. Behavior: Behavior normal. Thought Content: Thought content normal. Wt Readings from Last 6 Encounters: 03/06/24 104 kg (229 lb 0.9 oz) 02/09/24 100 kg (221 lb 6.4 oz) 12/15/23 96.2 kg (212 lb) 09/19/23 96.2 kg (212 lb) 06/12/23 97.5 kg (215 lb) 05/30/23 105 kg (231 lb) I/Os: Intake/Output Summary (Last 24 hours) at 03/06/2024 0835 Last data filed at 03/06/2024 0609 Gross per 24 hour Intake 840 ml Output 1085 ml Net -245 ml Labs: Results for orders placed or performed during the hospital encounter of 03/05/24 (from the past 24 hour(s)) CBC and Auto Differential Result Value Ref Range WBC 10.0 4.4 - 11.3 x10*3/uL nRBC 0.0 0.0 - 0.0 /100 WBCs RBC 2.94 (L) 4.50 - 5.90 x10*6/uL Hemoglobin 8.9 (L) 13.5 - 17.5 g/dL Hematocrit 28.7 (L) 41.0 - 52.0 % MCV 98 80 - 100 fL MCH 30.3 26.0 - 34.0 pg MCHC 31.0 (L) 32.0 - 36.0 g/dL RDW 15.0 (H) 11.5 - 14.5 % Platelets 207 150 - 450 x10*3/uL Neutrophils % 80.4 40.0 - 80.0 % Immature Granulocytes %, Automated 0.4 0.0 - 0.9 % Lymphocytes % 10.2 13.0 - 44.0 % Monocytes % 7.3 2.0 - 10.0 % Eosinophils % 1.4 0.0 - 6.0 % Basophils % 0.3 0.0 - 2.0 % Neutrophils Absolute 8.05 (H) 1.60 - 5.50 x10*3/uL Immature Granulocytes Absolute, Automated 0.04 0.00 - 0.50 x10*3/uL Lymphocytes Absolute 1.02 0.80 - 3.00 x10*3/uL Monocytes Absolute 0.73 0.05 - 0.80 x10*3/uL Eosinophils Absolute 0.14 0.00 - 0.40 x10*3/uL Basophils Absolute 0.03 0.00 - 0.10 x10*3/uL Comprehensive Metabolic Panel Result Value Ref Range Glucose 104 (H) 74 - 99 mg/dL Sodium 137 136 - 145 mmol/L Potassium 5.8 (H) 3.5 - 5.3 mmol/L Chloride 101 98 - 107 mmol/L Bicarbonate 28 21 - 32 mmol/L Anion Gap 14 10 - 20 mmol/L Urea Nitrogen 52 (H) 6 - 23 mg/dL Creatinine 5.18 (H) 0.50 - 1.30 mg/dL eGFR 11 (L) >60 mL/min/1.73m*2 Calcium 8.3 (L) 8.6 - 10.3 mg/dL Albumin 3.1 (L) 3.4 - 5.0 g/dL Alkaline Phosphatase 59 33 - 136 U/L Total Protein 6.4 6.4 - 8.2 g/dL AST 10 9 - 39 U/L Bilirubin, Total 0.4 0.0 - 1.2 mg/dL ALT 11 10 - 52 U/L Magnesium Result Value Ref Range Magnesium 1.84 1.60 - 2.40 mg/dL Phosphorus Result Value Ref Range Phosphorus 3.3 2.5 - 4.9 mg/dL Light Blue Top Result Value Ref Range Extra Tube Hold for add-ons. SST TOP Result Value Ref Range Extra Tube Hold for add-ons. Khan Top Result Value Ref Range Extra Tube Hold for add-ons. Blood Culture Specimen: Dialysis; Blood culture Result Value Ref Range Blood Culture Loaded on Instrument - Culture in progress Blood Culture Specimen: Peripheral Venipuncture; Blood culture Result Value Ref Range Blood Culture Loaded on Instrument - Culture in progress Urinalysis with Reflex Culture and Microscopic Result Value Ref Range Color, Urine Light-[place] (N) Light-Yellow, Yellow, Dark-Yellow Appearance, Urine Ex.Turbid (N) Clear Specific [place], Urine 1.011 1.005 - 1.035 pH, Urine 8.0 5.0, 5.5, 6.0, 6.5, 7.0, 7.5, 8.0 Protein, Urine 300 (3+) (A) NEGATIVE, 10 (TRACE), 20 (TRACE) mg/dL Glucose, Urine Normal Normal mg/dL Blood, Urine OVER (3+) (A) NEGATIVE Ketones, Urine NEGATIVE NEGATIVE mg/dL Bilirubin, Urine NEGATIVE NEGATIVE Urobilinogen, Urine Normal Normal mg/dL Nitrite, Urine NEGATIVE NEGATIVE Leukocyte Esterase, Urine 500 Doris/ L (A) NEGATIVE Extra Urine Khan Tube Result Value Ref Range Extra Tube Hold for add-ons. Microscopic Only, Urine Result Value Ref Range WBC, Urine >50 (A) 1-5, NONE /HPF WBC Clumps, Urine MODERATE Reference range not established. /HPF RBC, Urine >20 (A) NONE, 1-2, 3-5 /HPF Bacteria, Urine 1+ (A) NONE SEEN /HPF CBC Result Value Ref Range WBC 7.3 4.4 - 11.3 x10*3/uL nRBC 0.0 0.0 - 0.0 /100 WBCs RBC 2.69 (L) 4.50 - 5.90 x10*6/uL Hemoglobin 8.2 (L) 13.5 - 17.5 g/dL Hematocrit 26.4 (L) 41.0 - 52.0 % MCV 98 80 - 100 fL MCH 30.5 26.0 - 34.0 pg MCHC 31.1 (L) 32.0 - 36.0 g/dL RDW 15.0 (H) 11.5 - 14.5 % Platelets 208 150 - 450 x10*3/uL Renal Function Panel Result Value Ref Range Glucose 101 (H) 74 - 99 mg/dL Sodium 136 136 - 145 mmol/L Potassium 4.8 3.5 - 5.3 mmol/L Chloride 100 98 - 107 mmol/L Bicarbonate 28 21 - 32 mmol/L Anion Gap 13 10 - 20 mmol/L Urea Nitrogen 60 (H) 6 - 23 mg/dL Creatinine 5.97 (H) 0.50 - 1.30 mg/dL eGFR 9 (L) >60 mL/min/1.73m*2 Calcium 8.1 (L) 8.6 - 10.3 mg/dL Phosphorus 4.2 2.5 - 4.9 mg/dL Albumin 2.9 (L) 3.4 - 5.0 g/dL Magnesium Result Value Ref Range Magnesium 1.97 1.60 - 2.40 mg/dL Imaging: CT abdomen pelvis wo IV contrast Result Date: 03/05/2024 STUDY: CT Abdomen and Pelvis without IV Contrast; 03/05/2024, 7:11 PM. INDICATION: Pyelonephritis, concern for fecal fistula. COMPARISON: CT CAP: 02/10/24. ACCESSION NUMBER(S): [id number] ORDERING CLINICIAN: DAILY COATES TECHNIQUE: CT of the abdomen and pelvis was performed. Contiguous axial images were obtained at 3 mm slice thickness through the abdomen and pelvis. Coronal and sagittal reconstructions at 3 mm slice thickness were performed. No intravenous contrast was administered. Automated mA/kV exposure control was utilized and patient examination was performed in strict accordance with principles of ALARA. FINDINGS: Please note that the evaluation of vessels, lymph nodes and organs is limited without intravenous contrast. Abdomen: No significant abnormalities are detectable in the liver, spleen, pancreas, adrenal glands, or biliary system. A percutaneous left nephrostomy remains in place, coiled in the left renal pelvis. Left kidney is moderately atrophic, similar to prior. Right nephroureteral stent also remains, unchanged in position. There is interval development of moderate proximal hydronephrosis of the right renal pelvis and calyces with transition at the UPJ. There is minimal air within the dilated right renal calyces. There is no detectable adjacent fistula with bowel. Abdominal aorta is tortuous, normal caliber. There is no bulky or localizing retroperitoneal lymphadenopathy. There is no retroperitoneal hematoma. The stomach is distended. There is minimal air distention in the small bowel. There is moderate stool burden colon, with scattered diverticulosis. There is no abscess, obstruction, or free air. Pelvis: The bladder is decompressed with a Jamison catheter in place. Stool distends the rectum. There are numerous calcified phleboliths. There are noinguinal hernias. Skeletal: Left hip arthroplasty is in place. There is mild spondylosis throughoutthe lumbar spine, including sclerosis in the posterior elements of the lower lumbar spine. Lower chest: Heart is top normal size. There is focal bibasilar atelectasis. There are no pleural effusions. 1. Interval development of moderate proximal right hydronephrosis with transition at the UPJ. 2. Indwelling right nephroureteral stent remains in place traversing the UPJ. 3. There is minimal air within the distended right renal calyces. 4. No detectable fistula to adjacent bowel. 5. Remainder as above. Signed by Ronnie Driver MD Assessment & Plan Genet Booth is a 79 y.o. male admitted to [facility] for management of: Right pyelonephritis: CT obtained from [place] is not available for review. CT abdomen & pelvis obtained here and did not reveal findings suggestive of pyelonephritis. Urinalysis is suggestive of UTI. Based on prior urine cultures I will start Zosyn renally dosed. Moderate Right Hydronephrosis: CT scan comments on interval development of hydronephrosis with transition at the UPJ. Urology consulted ESRD on HD (M/W/F): Currently appears euvolemic. No urgent need for dialysis. Nephrology consulted for HD when appropriate. Chronic Indwelling Jamison: Replaced yesterday, minimal urine output Mild hyperkalemia: Start Lokelma Continue home medications for chronic medical conditions. Disposition: Anticipate LOS > 2 midnights. Daily Coates DO Internal Medicine I spent a total of 60 minutes on the date of the service which included preparing to see the patient, [id number] patient care, completing clinical documentation, obtaining and/or reviewing separately obtained history, performing a medically appropriate examination, counseling and educating the pat ient/family/caregiver, ordering medications, tests, or procedures, independently interpreting results (not separately reported), and communicating results to the patient/family/caregiver. [facility] Work Phone: 1(650) 252-511009-09-2024 Emergency department Note* Gil Botello MD - 02/09/2024 10:52 PM EDT 79-year-old male chief complaint of anterior chest pain into his back which has been going on all day. He did take a Tums with no significant improvement. He denies any history of GERD. No radiating symptoms to the extremity neck or jaw. Review of Systems Physical Exam Vitals and nursing note reviewed. Constitutional: General: He is not in acute distress. Appearance: He is well-developed. HENT: Head: Normocephalic and atraumatic. Eyes: Conjunctiva/sclera: Conjunctivae normal. Cardiovascular: Rate and Rhythm: Normal rate and regular rhythm. Heart sounds: No murmur heard. Pulmonary: Effort: Pulmonary effort is normal. No respiratory distress. Breath sounds: Normal breath sounds. Abdominal: Palpations: Abdomen is soft. Tenderness: There is no abdominal tenderness. Musculoskeletal: General: No swelling. Cervical back: Neck supple. Skin: General: Skin is warm and dry. Capillary Refill: Capillary refill takes less than 2 seconds. Neurological: Mental Status: He is alert. Psychiatric: Mood and Affect: Mood normal. Labs Reviewed CBC WITH AUTO DIFFERENTIAL - Abnormal Result Value WBC 9.4 nRBC 0.0 RBC 3.08 (*) Hemoglobin 9.6 (*) Hematocrit 30.2 (*) MCV 98 MCH 31.2 MCHC 31.8 (*) RDW 14.7 (*) Platelets 201 Neutrophils % 69.8 Immature Granulocytes %, Automated 0.4 Lymphocytes % 18.2 Monocytes % 7.7 Eosinophils % 3.5 Basophils % 0.4 Neutrophils Absolute 6.53 (*) Immature Granulocytes Absolute, Automated 0.04 Lymphocytes Absolute 1.71 Monocytes Absolute 0.72 Eosinophils Absolute 0.33 Basophils Absolute 0.04 COMPREHENSIVE METABOLIC PANEL - Abnormal Glucose 104 (*) Sodium 140 Potassium 4.1 Chloride 100 Bicarbonate 28 Anion Gap 16 Urea Nitrogen 65 (*) Creatinine 6.24 (*) eGFR 9 (*) Calcium 9.0 Albumin 3.6 Alkaline Phosphatase 72 Total Protein 6.4 AST 11 Bilirubin, Total 0.3 ALT 7 (*) LIPASE - Normal Lipase 58 Narrative: Venipuncture immediately after or during the administration of Metamizole may lead to falsely low results. Testing should be performed immediately prior to Metamizole dosing. TROPONIN I, HIGH SENSITIVITY - Normal Troponin I, High Sensitivity 10 Narrative: Less than 99th percentile of normal range cutoff- Female and children under 18 years old <14 ng/L; Male <21 ng/L: Negative Repeat testing should be performed if clinically indicated. Female and children under 18 years old 14-50 ng/L; Male 21-50 ng/L: Consistent with possible cardiac damage and possible increased clinical risk. Serial measurements may help to assess extent of myocardial damage. >50 ng/L: Consistent with cardiac damage, increased clinical risk and myocardial infarction. Serial measurements may help assess extent of myocardial damage. NOTE: Children less than 1 year old may have higher baseline troponin levels and results should be interpreted in conjunction with the overall clinical context. NOTE: Troponin I testing is performed using a different testing methodology at [facility] than at other [facility]. Direct result comparisons should only be made within the same method. CT abdomen pelvis wo IV contrast Final Result 1. Diverticulosis. No diverticulitis. No bowel obstruction. No radiopaque gallstones or biliary duct dilatation. Stomach is decompressed. 2. Robust vascular calcification. 3. Right ureteral stent and left percutaneous nephrostomy in expected position. Marked cortical thinning and atrophy of the left kidney compatible with advanced chronic renal insufficiency. Right kidney has cortical thinning although not as severe. MACRO: None Signed by: John Joya 02/10/2024 1:07 AM Dictation workstation: [id number] CT chest wo IV contrast Final Result 1. Features suggesting mild edema. Heart size is enlarged. Patchy bibasilar atelectasis. Signed by: John Joya 02/10/2024 12:53 AM Dictation workstation: [id number] CT angio chest abdomen pelvis (Results Pending) Procedures Medical Decision Making 79-year-old male chief complaint of anterior chest pain into his back which has been going on all day. He did take a Tums with no significant improvement. He denies any history of GERD. No radiating symptoms to the extremity neck or jaw. Patient's renal failure is chronic. CT scan of the chest abdomen pelvis without contrast also appears negative for acute findings. Patient's anemia also appears chronic. Troponin is negative. EKG demonstrated some mild tachycardia otherwise unremarkable. Patient felt better after Pepcid and Maalox mix. DDx: ACS, pancreatitis, dissection Amount and/or Complexity of Data Reviewed ECG/medicine tests: independent interpretation performed. Details: Sinus rhythm rate of 106, narrow complex, normal axis, no ST ovation or depression, no ectopy. Diagnoses as of 02/10/24215 Epigastric abdominal pain Gil Botello MD 02/10/24215 documented in this [facility] Work Phone: [phone]) 399-597809-09-2024 Physician Emergency department Note* Gil Botello MD - 02/09/2024 10:52 PM EDT 79-year-old male chief complaint of anterior chest pain into his back which has been going on all day. He did take a Tums with no significant improvement. He denies any history of GERD. No radiating symptoms to the extremity neck or jaw. Review of Systems Physical Exam Vitals and nursing note reviewed. Constitutional: General: He is not in acute distress. Appearance: He is well-developed. HENT: Head: Normocephalic and atraumatic. Eyes: Conjunctiva/sclera: Conjunctivae normal. Cardiovascular: Rate and Rhythm: Normal rate and regular rhythm. Heart sounds: No murmur heard. Pulmonary: Effort: Pulmonary effort is normal. No respiratory distress. Breath sounds: Normal breath sounds. Abdominal: Palpations: Abdomen is soft. Tenderness: There is no abdominal tenderness. Musculoskeletal: General: No swelling. Cervical back: Neck supple. Skin: General: Skin is warm and dry. Capillary Refill: Capillary refill takes less than 2 seconds. Neurological: Mental Status: He is alert. Psychiatric: Mood and Affect: Mood normal. Labs Reviewed CBC WITH AUTO DIFFERENTIAL - Abnormal Result Value WBC 9.4 nRBC 0.0 RBC 3.08 (*) Hemoglobin 9.6 (*) Hematocrit 30.2 (*) MCV 98 MCH 31.2 MCHC 31.8 (*) RDW 14.7 (*) Platelets 201 Neutrophils % 69.8 Immature Granulocytes %, Automated 0.4 Lymphocytes % 18.2 Monocytes % 7.7 Eosinophils % 3.5 Basophils % 0.4 Neutrophils Absolute 6.53 (*) Immature Granulocytes Absolute, Automated 0.04 Lymphocytes Absolute 1.71 Monocytes Absolute 0.72 Eosinophils Absolute 0.33 Basophils Absolute 0.04 COMPREHENSIVE METABOLIC PANEL - Abnormal Glucose 104 (*) Sodium 140 Potassium 4.1 Chloride 100 Bicarbonate 28 Anion Gap 16 Urea Nitrogen 65 (*) Creatinine 6.24 (*) eGFR 9 (*) Calcium 9.0 Albumin 3.6 Alkaline Phosphatase 72 Total Protein 6.4 AST 11 Bilirubin, Total 0.3 ALT 7 (*) LIPASE - Normal Lipase 58 Narrative: Venipuncture immediately after or during the administration of Metamizole may lead to falsely low results. Testing should be performed immediately prior to Metamizole dosing. TROPONIN I, HIGH SENSITIVITY - Normal Troponin I, High Sensitivity 10 Narrative: Less than 99th percentile of normal range cutoff- Female and children under 18 years old <14 ng/L; Male <21 ng/L: Negative Repeat testing should be performed if clinically indicated. Female and children under 18 years old 14-50 ng/L; Male 21-50 ng/L: Consistent with possible cardiac damage and possible increased clinical risk. Serial measurements may help to assess extent of myocardial damage. >50 ng/L: Consistent with cardiac damage, increased clinical risk and myocardial infarction. Serial measurements may help assess extent of myocardial damage. NOTE: Children less than 1 year old may have higher baseline troponin levels and results should be interpreted in conjunction with the overall clinical context. NOTE: Troponin I testing is performed using a different testing methodology at [facility] than at other [facility]. Direct result comparisons should only be made within the same method. CT abdomen pelvis wo IV contrast Final Result 1. Diverticulosis. No diverticulitis. No bowel obstruction. No radiopaque gallstones or biliary duct dilatation. Stomach is decompressed. 2. Robust vascular calcification. 3. Right ureteral stent and left percutaneous nephrostomy in expected position. Marked cortical thinning and atrophy of the left kidney compatible with advanced chronic renal insufficiency. Right kidney has cortical thinning although not as severe. MACRO: None Signed by: John Joya 02/10/2024 1:07 AM Dictation workstation: [id number] CT chest wo IV contrast Final Result 1. Features suggesting mild edema. Heart size is enlarged. Patchy bibasilar atelectasis. Signed by: John Joya 02/10/2024 12:53 AM Dictation workstation: [id number] CT angio chest abdomen pelvis (Results Pending) Procedures Medical Decision Making 79-year-old male chief complaint of anterior chest pain into his back which has been going on all day. He did take a Tums with no significant improvement. He denies any history of GERD. No radiating symptoms to the extremity neck or jaw. Patient's renal failure is chronic. CT scan of the chest abdomen pelvis without contrast also appears negative for acute findings. Patient's anemia also appears chronic. Troponin is negative. EKG demonstrated some mild tachycardia otherwise unremarkable. Patient felt better after Pepcid and Maalox mix. DDx: ACS, pancreatitis, dissection Amount and/or Complexity of Data Reviewed ECG/medicine tests: independent interpretation performed. Details: Sinus rhythm rate of 106, narrow complex, normal axis, no ST ovation or depression, no ectopy. Diagnoses as of 02/10/24215 Epigastric abdominal pain Gil Botello MD 09/10/24 0216 [facility] Work Phone: 1(521) 908-235609-03-2024 History of Present illness Narrative* Whitney Bledsoe RN - 02/03/2024 2:26 PM EDT Received call from KAREN Neal, caring for patient. She is asking for an update on next steps for patients nephrostomy tube. Dr. Mane was to speak with Dr. Bah. Patient had not heard anything back at this time and wanted to know plan of care. RN spoke with Dr. Mane. He spoke with Dr. Bah. One last attempt and NUS conversion from left nephrostomy tube will be done. RN spoke with KAREN Neal, and updated her on the plan of care. Orders placed. documented in this [id number] NoteVascular & Interventional Radiology Provided By [facility] (Diagnostic Radiology, Interventional and Neurointerventional Radiology and Vascular Medicine) Interventional Radiology Department @ [facility]: [phone] 23/12 [facility] physician contact: [phone]) [facility]: [phone] [email or web address] [facility] [employer] C[employer] DIRECTORY Date: 01/21/24 Patient Name: Genet Booth : 1945 MR #: [id number] Assessment/Plan: This 79-year-old gentleman presents from his extended care facility with his hospital nursing assistant Mitzy for discussion of possible removal of left nephrostomy tube versus repeat attempt at left ureteral stent placement. History of prostate cancer, ESRD and BPH/obstructive lower urinary tract symptoms. We also did have the patient's nurse, Jenn, from his extended care facility on the phone. The patient has an indwelling right ureteral stent in place with good, fairly significant urine output through his chronic indwelling urethral Jamison catheter. His left nephrostomy tube is painful, sore and overall bothersome with movement as well and drains very little. Unfortunately, Genet has had multiple urinary tract infections including MRSA as the etiology. He is currently finishing treatment with Bactrim for his most recent UTI and takes his last dose today. Despite full drainage of his upper and lower urinary tract (right ureteral stent, left nephrostomy tube and Jamison catheter), his renal function has remained poor and he still requires dialysis since last April. As Genet, his nurse and hospital nursing assistant and I discussed, I will be getting in touch with Dr. Bah to discuss the option of removal of the left nephrostomy tube since the initial attempt at left ureteral stent placement up at [facility] was unsuccessful and since the left kidney produces very little urine (some days with no filling of the bag and other days with just 10 or 20 mL roughly as per his nurse). We did discuss the option of 1 more attempt at left ureteral stent placement which, if successful could illuminate the left nephrostomy tube need as well. Mr. Booth would like to think about this and here more about Dr. Bah's and my opinion on these options once he and I have had a chance to talk. We will be in touch with the patient through his nurses up at [facility] once Dr. Bah and I have had a chance to discuss. Ata Mane MD 01/21/2024 Whitney Bledsoe RN 01/21/2024 11:48 AM Signed Physicians: John Bah MD (Referring); Hernesto Logan MD (Family) Chief Complaint/Reason for Visit: Hydronephrosis History of Present Illness: Genet Booth is a 79 y.o. male who presents for consultation to discuss conversion of nephrostomy tube to nephrouretural stent. Patient has a history of MRSA in his urine s/p nephrostomy tube placement. From Dr. 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 Hyperlipidemia Hypertension Malignant neoplasm of prostate (HCC) Morbid obesity due to excess calories (HCC) CHLOÉ (obstructive sleep apnea) no longer uses cpap Pneumonia UTI (urinary tract infection) Past Surgical History: Procedure Laterality Date CATARACT EXTRACTION, BILATERAL FISTULA ARTERIOVENOUS Right 07/31/2023 Procedure: RIGHT UPPER EXTREMITY (RADIOCEPHALIC) ARTERIOVENOUS FISTULA CREATION; Surgeon: Cali Jacob MD; Location: Main OR; Service: Gen-Vascular INTERVENTIONAL RADIOLOGY PROCEDURE 11/28/2023 IR NEPHROSTOMY TUBE PLACEMENT RT 11/28/2023 IR NEPHROSTOMY TUBE PLACEMENT LT Left 10/2023 left artificial hip joint Left PORTACATH PLACEMENT 04/2023 REVISION SHUNT A-V Right 10/29/2023 Procedure: RIGHT UPPER EXTREMITY ARTERIOVENOUS (CEPHALIC) X2 BRANCH LIGATION; Surgeon: Cali Jacob MD; Location: Main OR; Service: Gen-Vascular TOTAL KNEE ARTHROPLASTY Right Family History Problem Relation Age of Onset Aneurysm Mother Alzheimer's disease Father Prostate cancer Father Throat cancer Father Social History Tobacco Use Smoking status: Former Current packs/day: 0.00 Average packs/day: 0.3 packs/day for 15.0 years (3.8 ttl pk-yrs) Types: Cigarettes Start date: 1964 Quit date: 1979 Years since quittin.6 Smokeless tobacco: Never Vaping Use Vaping status: Never Used Substance Use Topics Alcohol use: Never Drug use: Never Marital status: Single Home Medications: Outpatient Medications as of 01/21/2024 Medication Sig acetaminophen (TYLENOL) 325 (more content not included)...[facility]08-21-2024 History of Present illness Narrative* Ata Mane MD - 01/21/2024 12:23 PM EDT Images from the original note were not included. Vascular & Interventional Radiology Provided By [facility] (Diagnostic Radiology, Interventional and Neurointerventional Radiology and Vascular Medicine) Interventional Radiology Department @ [facility]: [phone] 23/12 [facility] physician contact: [phone]) [facility]: [phone] [email or web address] [employer] C[employer] DIRECTORY Date: 01/21/24 Patient Name: Genet Booth : 1945 MR #: [id number] Assessment/Plan: This 79-year-old gentleman presents from his extended care facility with his hospital nursing assistant Mitzy for discussion of possible removal of left nephrostomy tube versus repeat attempt at left ureteralstent placement. History of prostate cancer, ESRD and BPH/obstructive lower urinary tract symptoms.We also did have the patient's nurse, Jenn, from his extended care facility on the phone. The patient has an indwelling right ureteral stent in place with good, fairly significant urine output through his chronic indwelling urethral Jamison catheter. His left nephrostomy tube is painful, sore and overall bothersome with movement as well and drains very little. Unfortunately, Genet has had multiple urinary tract infections including MRSA as the etiology. Heis currently finishing treatment with Bactrim for his most recent UTI and takes his last dose today. Despite full drainage of his upper and lower urinary tract (right ureteral stent, left nephrostomy tube and Jamison catheter), his renal function has remained poor and he still requires dialysis since last April. As Genet, his nurse and hospital nursing assistant and I discussed, I will be getting in touch with Dr. Bah to discuss the option of removal of the left nephrostomy tube since the initial attempt at left ureteral stent placement up at [facility] was unsuccessful and since the left kidney produces very little urine (some days with no filling of the bag and other days with just 10 or 20 mL roughly as per his nurse). We did discuss the option of 1 more attempt at left ureteral stent placement which, if successful could illuminate the left nephrostomy tube need as well. Mr. Booth would like to think about this and here more about Dr. Bah's and my opinion on these options once he and I have had a chance to talk. We will be in touch with the patient through [facility] once Dr. Bah and I have had a chance to discuss. Ata Mane MD 01/21/2024 Whitney Bledsoe, RN 01/21/2024 11:48 AM Signed Physicians: John Bah MD (Referring); Hernesto Logan MD (Family) Chief Complaint/Reason for Visit: Hydronephrosis History of Present Illness: Genet Booth is a 79 y.o. male who presents for consultation to discussconversion of nephrostomy tube to nephrouretural stent. Patient has a history of MRSA in his urine s/p nephrostomy tube placement. From Dr. 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 Hyperlipidemia Hypertension Malignant neoplasm of prostate (HCC) Morbid obesity due to excess calories (HCC) CHLOÉ (obstructive sleep apnea) no longer uses cpap Pneumonia UTI (urinary tract infection) Past Surgical History: Procedure Laterality Date CATARACT EXTRACTION, BILATERAL FISTULA ARTERIOVENOUS Right 07/31/2023 Procedure: RIGHT UPPER EXTREMITY (RADIOCEPHALIC) ARTERIOVENOUS FISTULA CREATION; Surgeon: Cali Jacob MD; Location: Main OR; Service: Gen-Vascular INTERVENTIONAL RADIOLOGY PROCEDURE 11/28/2023 IR NEPHROSTOMY TUBE PLACEMENT RT 11/28/2023 IR NEPHROSTOMY TUBE PLACEMENT LT Left 10/2023 left artificial hip joint Left PORTACATH PLACEMENT 04/2023 REVISION SHUNT A-V Right 10/29/2023 Procedure: RIGHT UPPER EXTREMITY ARTERIOVENOUS (CEPHALIC) X2 BRANCH LIGATION; Surgeon: Cali Jacob MD; Location: Main OR; Service: Gen-Vascular TOTAL KNEE ARTHROPLASTY Right Family History Problem Relation Age of Onset Aneurysm Mother Alzheimer's disease Father Prostate cancer Father Throat cancer Father Social History Tobacco Use Smoking status: Former Current packs/day: 0.00 Average packs/day: 0.3 packs/day for 15.0 years (3.8 ttl pk-yrs) Types: Cigarettes Start date: 1964 Quit date: 1979 Years since quittin.6 Smokeless tobacco: Never Vaping Use Vaping status: Never Used Substance Use Topics Alcohol use: Never Drug use: Never Marital status: Single Home Medications: Outpatient Medications as of 01/21/2024 Medication Sig acetaminophen (TYLENOL) 325 MG tablet Take 2 (two) tablets (650 mg total) by mouth every 4 (four) hours as needed for pain or fever . allopurinoL (ZYLOPRIM) 100 MG tablet Take 1 (one) tablet (100 mg total) by mouth every morning . amino acids-protein hydrolys 17-100 gram-kcal/30 mL Liqd Take 30 mL by mouth 3 (three) times a day . bisacodyL (DULCOLAX) 10 mg suppository Insert 1 (one) suppository (10 mg total) into the rectum daily as needed for constipation . carboxymethylcellulose 1 % ophthalmic solution 2 (two) drops 2 (two) times a day . epoetin kacie (PROCRIT) 2,000 unit/mL injection Inject 1 mL (2,000 Units total) under the skin once Every 14 days . ferrous sulfate 325 (65 FE) MG tablet Take 1 (one) tablet (325 mg total) by mouth 3 (three) times aday . HYDROcodone-acetaminophen (NORCO) 5-325 mg per tablet Take 1 (one) tablet by mouth every 8 (eight) hours as needed for pain . levothyroxine (SYNTHROID, LEVOTHROID) 88 MCG tablet Take 1 (one) tablet (88 mcg total) by mouth every morning Reasons: a condition with low thyroid hormone levels. lidocaine (XYLOCAINE) 2 % jelly Apply topically as needed Apply to penis topically as needed beforecatheter change. . magnesium hydroxide 400 mg/5 mL Susp Take 30 mL (2,400 mg total) by mouth every 4 (four) hours as needed (constipation) . menthol-zinc oxide (Calmoseptine) 0.44-20.6 % Oint Apply topically 2 (two) times a day For excoriation of R buttock . multivitamin (THERAGRAN) per tablet Take 1 (one) tablet by mouth every morning . ondansetron (ZOFRAN) 4 MG tablet Take 1 (one) tablet (4 mg total) by mouth every 12 (twelve) hours as needed for nausea . oxyBUTYnin (DITROPAN) 5 MG tablet Take 1 (one) tablet (5 mg total) by mouth 2 (two) times a day . oxyCODONE (ROXICODONE) 5 MG immediate release tablet Take 1 (one) tablet (5 mg total) by mouth every 6 (six) hours as needed for pain . phenazopyridine (PYRIDIUM) 200 MG tablet Take 1 (one) tablet (200 mg total) by mouth 3 (three) times a day as needed for pain . polyethylene glycol (MIRALAX) 17 gram powder Take 17 (seventeen) g by mouth every morning Reasons: constipation. Renvela 800 mg tablet Take 1 (one) tablet (800 mg total) by mouth 3 (three) times a day with meals . senna-docusate (SENNA-S) 8.6-50 mg Take 2 (two) tablets by mouth every morning Reasons: constipation. sertraline (ZOLOFT) 50 MG tablet Take 3 (three) tablets (150 mg total) by mouth every morning . simethicone (GAS-X Extra Strength) 125 MG chewable tablet Chew and Swallow 180 mg every 8 (eight) hours as needed for flatulence . sodium chloride (Saline NasaL) 0.65 % nasal spray Instill 1 (one) spray into each nostril as needed(for dryness) . calcitrioL (ROCALTROL) 0.25 MCG capsule Take 1 (one) capsule (0.25 mcg total) by mouth every morning . isosorbide mononitrate (IMDUR) 30 MG 24 hr tablet Take 1 (one) tablet (30 mg total) by mouth daily . Allergy Information: I have reviewed the patient's allergies and intolerances which include: Bupropion, Ct: iodinated contrast- oral and iv dye, and Meloxicam Review of Systems Constitutional: Positive for fatigue. Negative for chills and fever. Respiratory: Negative for cough and shortness of breath. Cardiovascular: Negative for chest pain and palpitations. Gastrointestinal: Positive for constipation. Negative for abdominal distention and abdominal pain. Genitourinary: Negative for difficulty urinating, dysuria, frequency and urgency. Musculoskeletal: Positive for back pain and gait problem. Skin: Negative for pallor. Neurological: Positive for weakness. Negative for dizziness and syncope. Psychiatric/Behavioral: Positive for sleep disturbance. All other systems reviewed and are negative. Physical Examination: Vital Signs: Vitals 01/21/24 1125 BP: 113/60 Pulse: (!) 44 Resp: 16 SpO2: 90% PainSc: 3 PainLoc: Buttocks Physical Examination: General: Alert, cooperative, no distress, in wheelchair Lungs: Respirations unlabored, normal respiratory effort Cardiovascular: Regular rate Abdomen: Soft, non-tender Left Nephrostomy bag: Left nephrostomy tube in place. Skin intact. Less than 10 mL of serosanguineous nonpurulent urine in left nephrostomy tube bag. Patient's Jamison bag has yellow, translucent urine, approximately 500 mL. I spent 40 minutes in total, reviewing the patient's medical history, signs and symptoms, all pertinent radiologic imaging, treatment options, benefits and risks of plan with the patient directly viain person. Note: To expedite correspondence, [employer] voice recognition software may have been utilized. Some grammatical or spelling errors may occur using the system. * Whitney Bledsoe RN - 01/21/2024 11:44 AM EDT Images from the original note were not included. Physicians: John Bah MD (Referring); Hernesto Logan MD (Family) Chief Complaint/Reason for Visit: Hydronephrosis History of Present Illness: Genet Booth is a 79 y.o. male who presents for consultation to discussconversion of nephrostomy tube to nephrouretural stent. Patient has a history of MRSA in his urine s/p nephrostomy tube placement. From Dr. 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 Hyperlipidemia Hypertension Malignant neoplasm of prostate (HCC) Morbid obesity due to excess calories (HCC) CHLOÉ (obstructive sleep apnea) no longer uses cpap Pneumonia UTI (urinary tract infection) Past Surgical History: Procedure Laterality Date CATARACT EXTRACTION, BILATERAL FISTULA ARTERIOVENOUS Right 07/31/2023 Procedure: RIGHT UPPER EXTREMITY (RADIOCEPHALIC) ARTERIOVENOUS FISTULA CREATION; Surgeon: Cali Jacob MD; Location: Main OR; Service: Gen-Vascular INTERVENTIONAL RADIOLOGY PROCEDURE 11/28/2023 IR NEPHROSTOMY TUBE PLACEMENT RT 11/28/2023 IR NEPHROSTOMY TUBE PLACEMENT LT Left 10/2023 left artificial hip joint Left PORTACATH PLACEMENT 04/2023 REVISION SHUNT A-V Right 10/29/2023 Procedure: RIGHT UPPER EXTREMITY ARTERIOVENOUS (CEPHALIC) X2 BRANCH LIGATION; Surgeon: Cali Jaocb MD; Location: Main OR; Service: Gen-Vascular TOTAL KNEE ARTHROPLASTY Right Family History Problem Relation Age of Onset Aneurysm Mother Alzheimer's disease Father Prostate cancer Father Throat cancer Father Social History Tobacco Use Smoking status: Former Current packs/day: 0.00 Average packs/day: 0.3 packs/day for 15.0 years (3.8 ttl pk-yrs) Types: Cigarettes Start date: 1964 Quit date: 1979 Years since quittin.6 Smokeless tobacco: Never Vaping Use Vaping status: Never Used Substance Use Topics Alcohol use: Never Drug use: Never Marital status: Single Home Medications: Outpatient Medications as of 01/21/2024 Medication Sig acetaminophen (TYLENOL) 325 MG tablet Take 2 (two) tablets (650 mg total) by mouth every 4 (four) hours as needed for pain or fever . allopurinoL (ZYLOPRIM) 100 MG tablet Take 1 (one) tablet (100 mg total) by mouth every morning . amino acids-protein hydrolys 17-100 gram-kcal/30 mL Liqd Take 30 mL by mouth 3 (three) times a day . bisacodyL (DULCOLAX) 10 mg suppository Insert 1 (one) suppository (10 mg total) into the rectum daily as needed for constipation . carboxymethylcellulose 1 % ophthalmic solution 2 (two) drops 2 (two) times a day . epoetin kacie (PROCRIT) 2,000 unit/mL injection Inject 1 mL (2,000 Units total) under the skin once Every 14 days . ferrous sulfate 325 (65 FE) MG tablet Take 1 (one) tablet (325 mg total) by mouth 3 (three) times aday . HYDROcodone-acetaminophen (NORCO) 5-325 mg per tablet Take 1 (one) tablet by mouth every 8 (eight) hours as needed for pain . levothyroxine (SYNTHROID, LEVOTHROID) 88 MCG tablet Take 1 (one) tablet (88 mcg total) by mouth every morning Reasons: a condition with low thyroid hormone levels. lidocaine (XYLOCAINE) 2 % jelly Apply topically as needed Apply to penis topically as needed beforecatheter change. . magnesium hydroxide 400 mg/5 mL Susp Take 30 mL (2,400 mg total) by mouth every 4 (four) hours as needed (constipation) . menthol-zinc oxide (Calmoseptine) 0.44-20.6 % Oint Apply topically 2 (two) times a day For excoriation of R buttock . multivitamin (THERAGRAN) per tablet Take 1 (one) tablet by mouth every morning . ondansetron (ZOFRAN) 4 MG tablet Take 1 (one) tablet (4 mg total) by mouth every 12 (twelve) hours as needed for nausea . oxyBUTYnin (DITROPAN) 5 MG tablet Take 1 (one) tablet (5 mg total) by mouth 2 (two) times a day . oxyCODONE (ROXICODONE) 5 MG immediate release tablet Take 1 (one) tablet (5 mg total) by mouth every 6 (six) hours as needed for pain . phenazopyridine (PYRIDIUM) 200 MG tablet Take 1 (one) tablet (200 mg total) by mouth 3 (three) times a day as needed for pain . polyethylene glycol (MIRALAX) 17 gram powder Take 17 (seventeen) g by mouth every morning Reasons: constipation. Renvela 800 mg tablet Take 1 (one) tablet (800 mg total) by mouth 3 (three) times a day with meals . senna-docusate (SENNA-S) 8.6-50 mg Take 2 (two) tablets by mouth every morning Reasons: constipation. sertraline (ZOLOFT) 50 MG tablet Take 3 (three) tablets (150 mg total) by mouth every morning . simethicone (GAS-X Extra Strength) 125 MG chewable tablet Chew and Swallow 180 mg every 8 (eight) hours as needed for flatulence . sodium chloride (Saline NasaL) 0.65 % nasal spray Instill 1 (one) spray into each nostril as needed(for dryness) . calcitrioL (ROCALTROL) 0.25 MCG capsule Take 1 (one) capsule (0.25 mcg total) by mouth every morning . isosorbide mononitrate (IMDUR) 30 MG 24 hr tablet Take 1 (one) tablet (30 mg total) by mouth daily . Allergy Information: I have reviewed the patient's allergies and intolerances which include: Bupropion, Ct: iodinated contrast- oral and iv dye, and Meloxicam Review of Systems Constitutional: Positive for fatigue. Negative for chills and fever. Respiratory: Negative for cough and shortness of breath. Cardiovascular: Negative for chest pain and palpitations. Gastrointestinal: Positive for constipation. Negative for abdominal distention and abdominal pain. Genitourinary: Negative for difficulty urinating, dysuria, frequency and urgency. Musculoskeletal: Positive for back pain and gait problem. Skin: Negative for pallor. Neurological: Positive for weakness. Negative for dizziness and syncope. Psychiatric/Behavioral: Positive for sleep disturbance. All other systems reviewed and are negative. Physical Examination: Vital Signs: Vitals 01/21/24 1125 BP: 113/60 Pulse: (!) 44 Resp: 16 SpO2: 90% PainSc: 3 PainLoc: Buttocks documented in this [id number] History of Present illness Narrative* John Bah MD - 12/15/2023 10:45 AM EDT Subjective Patient ID: Genet Booth is a 78 y.o. male. HPI Patient is here for 2 week follow up for Hx of hydro. S/P cystoscopy with Right RPG and ureteroscopy and Right stent change and I Attempted Left stent placement and Attempted SP tube placement On 06/25. He was referred to IR for Perc tube on Left side and this was placed...This was placed on 09/19/23. Cr has been elevated despite perc tube and indwelling stent And jamison. He is on HD from Dr. De León.. He is takng Oxybutynin. Most recent PSA was 0.1 04/24 Review of Systems Constitutional: Negative for chills and fever. HENT: Negative. Eyes: Negative. Respiratory: Negative for cough and shortness of breath. Cardiovascular: Negative for chest pain and leg swelling. Gastrointestinal: Negative for nausea. Endocrine: Negative. Genitourinary: Negative for difficulty urinating. Negative except for documented in HPI Allergic/Immunologic: Negative. Neurological: Alert & oriented X 3 Hematological: Denies blood thinners Psychiatric/Behavioral: Negative. Objective Physical Exam Vitals and nursing note reviewed. Constitutional: General: He is not in acute distress. Appearance: Normal appearance. Pulmonary: Effort: Pulmonary effort is normal. Abdominal: Tenderness: There is no abdominal tenderness. Genitourinary: Comments: Kidneys non palpable bilaterally Bladder non palpable or tender Scrotum no mass, No hydrocele Epididymis- No spermatocele. Non Tender. Testicles: No mass Urethra: No discharge Penis within normal limits... No lesions Prostate - deferred Jamison catheter draining clear Left perc tube in place Neurological: Mental Status: He is alert. Assessment/Plan Diagnoses and all orders for this visit: History of prostate cancer ESRD (end stage renal disease) (Multi) Renal stones Other hydronephrosis All available PSA values reviewed, Options discussed. Questions answered. Diet changes for prostate health discussed and educational information given. Pros/Cons of prostatehealth supplements discussed. Treatment options for LUTS reviewed Continue Jamison for now Observe ED Lifestyle change to help prevent UTIs discussed. Encouraged fluid intake-No recent Sx Reviewed notes from Dr De León I think Neph tube and stent could possibly be removed as patient's renal Fxn is not improving. If there is concern for recurrent UTI with [place] could internalize left neph tube and change ureteral stents which was his presenting complaint F/U 1 month documented in this [facility] Work Phone: [phone]) 133-374807-10-2024 Evaluation + Plan note* Assessment & Plan Note - Griselda Iqbal CNP - 12/10/2023 12:50 PM EDTAssociated Problem(s): Hypertension Well controlled per JNC 8 guidelines at 102/66 -Managed by PCP [id number] Evaluation + Plan note* Assessment & Plan Note - Griselda Iqbal CNP - 12/10/2023 12:50 PM EDTAssociated Problem(s): ESRD (end stage renal disease) on dialysis ([facility]) Genet has known ESRD and is receiving hemodialysis on , , and Fri. His ESRD is managed by Dr De León in [place]. [id number] Evaluation + Plan note* Assessment & Plan Note - Griselda Iqbal CNP - 12/10/2023 12:50 PM EDTAssociated Problem(s): AVF (arteriovenous fistula) ([facility]) Genet has hx of AVF creation approximately 3 months ago that failed to mature most likely due to branch. He is now post ligation of the branch. He c/o some numbness to the right thumb and forefinger that is intermittent. There is good thrill and bruit present to the right upper arm AVF. Right radial pulse is palpable. He his hopeful to start home peritoneal dialysis in the near future. 10/29/2023 RIGHT UPPER EXTREMITY ARTERIOVENOUS (CEPHALIC) X6 BRANCH LIGATION (under US guidance) 07/31/2023 Procedures: RIGHT UPPER EXTREMITY BRACHIOCEPHALIC ARTERIOVENOUS FISTULA CREATION 2. FOREARM CEPHALIC VEIN EXPLORATION HD scan 12/08/2023 Conclusions * Patent arteriovenous fistula in the right upper extremity. Measurements listed below. * A branch measuring 6.6 mm is noted off the proximal fistula segment. This is one of the same branches visualized on the previous exam. The second branch off the proximal fistula is no longer visualized. * A second branch measuring 3.4 mm is noted off the mid to distal fistula and was not visualized onthe previous exam. Velocity 494 cm/s, AP 11.3 mm, depth 5.9 mm Patient is stable from a vascular standpoint. Will see prn. AVF can be accessed starting 12/16/2023 using 1 small needle in AVF and 1 needle in catheter for 2 weeks. If no problems arise after 2 weeks, then 2 larger needles may be used to AVF. If still no problems occur then IR office can be contacted to schedule OP palindrome catheter removal at [facility] at [phone]. [id number] Miscellaneous Notes* Assessment & Plan Note - Griselda Iqbal CNP - 12/10/2023 12:50 PM EDTAssociated Problem(s): Hypertension Well controlled per JNC 8 guidelines at 102/66 -Managed by PCP * Assessment & Plan Note - Girselda Iqbal CNP - 12/10/2023 12:50 PM EDT Associated Problem(s): ESRD (end stage renal disease) on dialysis (HCC) Genet has known ESRD and is receiving hemodialysis on , , and Fri. His ESRD is managed by Dr De León in [place]. * Assessment & Plan Note - Griselda Iqbal CNP - 12/10/2023 12:50 PM EDT Associated Problem(s): AVF (arteriovenous fistula) ([facility]) Genet has hx of AVF creation approximately 3 months ago that failed to mature most likely due to branch. He is now post ligation of the branch. He c/o some numbness to the right thumb and forefinger that is intermittent. There is good thrill and bruit present to the right upper arm AVF. Right radial pulse is palpable. He his hopeful to start home peritoneal dialysis in the near future. 10/29/2023 RIGHT UPPER EXTREMITY ARTERIOVENOUS (CEPHALIC) X6 BRANCH LIGATION (under US guidance) 07/31/2023 Procedures: RIGHT UPPER EXTREMITY BRACHIOCEPHALIC ARTERIOVENOUS FISTULA CREATION 2. FOREARM CEPHALIC VEIN EXPLORATION HD scan 12/08/2023 Conclusions * Patent arteriovenous fistula in the right upper extremity. Measurements listed below. * A branch measuring 6.6 mm is noted off the proximal fistula segment. This is one of the same branches visualized on the previous exam. The second branch off the proximal fistula is no longer visualized. * A second branch measuring 3.4 mm is noted off the mid to distal fistula and was not visualized onthe previous exam. Velocity 494 cm/s, AP 11.3 mm, depth 5.9 mm Patient is stable from a vascular standpoint. Will see prn. AVF can be accessed starting 12/16/2023 using 1 small needle in AVF and 1 needle in catheter for 2 weeks. If no problems arise after 2 weeks, then 2 larger needles may be used to AVF. If still no problems occur then IR office can be contacted to schedule OP palindrome catheter removal at [facility] at [phone]. documented in this [id number] Miscellaneous Notes* Assessment & Plan Note - Griselda Iqbal CNP - 12/10/2023 12:50 PM EDTAssociated Problem(s): Hypertension Well controlled per JNC 8 guidelines at 102/66 -Managed by PCP * Assessment & Plan Note - Griselda Iqbal CNP - 12/10/2023 12:50 PM EDT Associated Problem(s): ESRD (end stage renal disease) on dialysis (HCC) Genet has known ESRD and is receiving hemodialysis on , , and Fri. His ESRD is managed by Dr De León in [place]. * Assessment & Plan Note - Griselda Iqbal CNP - 12/10/2023 12:50 PM EDT Associated Problem(s): AVF (arteriovenous fistula) ([facility]) Genet has hx of AVF creation approximately 3 months ago that failed to mature most likely due to branch. He is now post ligation of the branch. He c/o some numbness to the right thumb and forefinger that is intermittent. There is good thrill and bruit present to the right upper arm AVF. Right radial pulse is palpable. He his hopeful to start home peritoneal dialysis in the near future. 10/29/2023 RIGHT UPPER EXTREMITY ARTERIOVENOUS (CEPHALIC) X6 BRANCH LIGATION (under US guidance) 07/31/2023 Procedures: RIGHT UPPER EXTREMITY BRACHIOCEPHALIC ARTERIOVENOUS FISTULA CREATION 2. FOREARM CEPHALIC VEIN EXPLORATION HD scan 12/08/2023 Conclusions * Patent arteriovenous fistula in the right upper extremity. Measurements listed below. * A branch measuring 6.6 mm is noted off the proximal fistula segment. This is one of the same branches visualized on the previous exam. The second branch off the proximal fistula is no longer visualized. * A second branch measuring 3.4 mm is noted off the mid to distal fistula and was not visualized onthe previous exam. Velocity 494 cm/s, AP 11.3 mm, depth 5.9 mm Patient is stable from a vascular standpoint. Will see prn. AVF can be accessed starting 12/16/2023 using 1 small needle in AVF and 1 needle in catheter for 2 weeks. If no problems arise after 2 weeks, then 2 larger needles may be used to AVF. If still no problems occur then IR office can be contacted to schedule OP palindrome catheter removal at [facility] at [phone]. documented in this [id number] NoteVASCULAR MEDICINE CLINIC NOTE Patient Name: Genet Booth MR #: [id number] : 1945 Physicians: Hernesto Logan MD (Family); No ref. provider found (Referring) Assessment and Plan: AVF (arteriovenous fistula) (HCC) Genet has hx of AVF creation approximately 3 months ago that failed to mature most likely due to branch. He is now post ligation of the branch. He c/o some numbness to the right thumb and forefinger that is intermittent. There is good thrill and bruit present to the right upper arm AVF. Right radial pulse is palpable. He his hopeful to start home peritoneal dialysis in the near future. 10/29/2023 RIGHT UPPER EXTREMITY ARTERIOVENOUS (CEPHALIC) X6 BRANCH LIGATION (under US guidance) 07/31/2023 Procedures: RIGHT UPPER EXTREMITY BRACHIOCEPHALIC ARTERIOVENOUS FISTULA CREATION 2. FOREARM CEPHALIC VEIN EXPLORATION HD scan 12/08/2023 Conclusions * Patent arteriovenous fistula in the right upper extremity. Measurements listed below. * A branch measuring 6.6 mm is noted off the proximal fistula segment. This is one of the same branches visualized on the previous exam. The second branch off the proximal fistula is no longer visualized. * A second branch measuring 3.4 mm is noted off the mid to distal fistula and was not visualized on the previous exam. Velocity 494 cm/s, AP 11.3 mm, depth 5.9 mm Patient is stable from a vascular standpoint. Will see prn. AVF can be accessed starting 12/16/2023 using 1 small needle in AVF and 1 needle in catheter for 2 weeks. If no problems arise after 2 weeks, then 2 larger needles may be used to AVF. If still no problems occur then IR office can be contacted to schedule OP palindrome catheter removal at [facility] at [phone]. ESRD (end stage renal disease) on dialysis (HCC) Genet has known ESRD and is receiving hemodialysis on , , and Fri. His ESRD is managed by Dr De León in [place]. Hypertension Well controlled per JNC 8 guidelines at 102/66 -Managed by PCP History of Present Illness: I had the pleasure to see Genet Booth who is a 78 y.o. male with a past medical history as outlined below. Genet Booth presents today on 12/10/2023 in the Vascular clinic for post-operative follow up AVF. He is currently a resident if [facility]. He is scheduled to discharge home once transportation is in place. Patient denies complaints of chest pain, SOB, abdominal pain, lightheadedness, dizziness. They have had no syncope or TIA/CVA type symptoms. Patient denies claudication or BLE rest pain. 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 Hyperlipidemia Hypertension Malignant neoplasm of prostate (HCC) Morbid obesity due to excess calories (HCC) CHLOÉ (obstructive sleep apnea) no longer uses cpap Pneumonia UTI (urinary tract infection) Past Surgical History: Procedure Laterality Date CATARACT EXTRACTION, BILATERAL FISTULA ARTERIOVENOUS Right 07/31/2023 Procedure: RIGHT UPPER EXTREMITY (RADIOCEPHALIC) ARTERIOVENOUS FISTULA CREATION; Surgeon: Cali Jacob MD; Location: Main OR; Service: [facility] INTERVENTIONAL RADIOLOGY PROCEDURE 11/28/2023 IR NEPHROSTOMY TUBE PLACEMENT RT 11/28/2023 IR NEPHROSTOMY TUBE PLACEMENT LT Left 10/2023 left artificial hip joint Left PORTACATH PLACEMENT 04/2023 REVISION SHUNT A-V Right 10/29/2023 Procedure: RIGHT UPPER EXTREMITY ARTERIOVENOUS (CEPHALIC) X2 BRANCH LIGATION; Surgeon: Cali Jacob MD; Location: Main OR; Service: Gen[facility] TOTAL KNEE ARTHROPLASTY Right Family History Problem Relation Age of Onset Aneurysm Mother Alzheimer's disease Father Prostate cancer Father Throat cancer Father Social History Socioeconomic History Marital status: Single Tobacco Use Smoking status: Former Current packs/day: 0.00 Average packs/day: 0.3 packs/day for 15.0 years (3.8 ttl pk-yrs) Types: Cigarettes Start date: 1964 Quit date: 1979 Years since quittin.5 Smokeless tobacco: Never Vaping Use Vaping status: Never Used Substance and Sexual Activity Alcohol use: Never Drug use: Never Social Determinants of Health Financial Resource Strain: Low Risk (04/01/2023) Received from [facility], [facility] Overall Financial Resource Strain (CARDIA) Difficulty of Paying Living Expenses: Not hard at all Transportation Needs: No Transportation Nee (more content not included)...[facility]07-10-2024 History of Present illness Narrative* Griselda Iqbal CNP - 12/10/2023 12:49 PM EDT Images from the original note were not included. VASCULAR MEDICINE CLINIC NOTE Patient Name: Genet Booth MR #: [id number] : 1945 Physicians: Hernesto Logan MD (Family); No ref. provider found (Referring) Assessment and Plan: AVF (arteriovenous fistula) ([facility]) Genet has hx of AVF creation approximately 3 months ago that failed to mature most likely due to branch. He is now post ligation of the branch. He c/o some numbness to the right thumb and forefinger that is intermittent. There is good thrill and bruit present to the right upper arm AVF. Right radial pulse is palpable. He his hopeful to start home peritoneal dialysis in the near future. 10/29/2023 RIGHT UPPER EXTREMITY ARTERIOVENOUS (CEPHALIC) X6 BRANCH LIGATION (under US guidance) 07/31/2023 Procedures: RIGHT UPPER EXTREMITY BRACHIOCEPHALIC ARTERIOVENOUS FISTULA CREATION 2. FOREARM CEPHALIC VEIN EXPLORATION HD scan 12/08/2023 Conclusions * Patent arteriovenous fistula in the right upper extremity. Measurements listed below. * A branch measuring 6.6 mm is noted off the proximal fistula segment. This is one of the same branches visualized on the previous exam. The second branch off the proximal fistula is no longer visualized. * A second branch measuring 3.4 mm is noted off the mid to distal fistula and was not visualized onthe previous exam. Velocity 494 cm/s, AP 11.3 mm, depth 5.9 mm Patient is stable from a vascular standpoint. Will see prn. AVF can be accessed starting 12/16/2023 using 1 small needle in AVF and 1 needle in catheter for 2 weeks. If no problems arise after 2 weeks, then 2 larger needles may be used to AVF. If still no problems occur then IR office can be contacted to schedule OP palindrome catheter removal at [facility] at [phone]. ESRD (end stage renal disease) on dialysis ([facility]) Genet has known ESRD and is receiving hemodialysis on , , and Fri. His ESRD is managed by Dr De León in [place]. Hypertension Well controlled per JNC 8 guidelines at 102/66 -Managed by PCP History of Present Illness: I had the pleasure to see Genet Booth who is a 78 y.o. male with a past medical history as outlined below. Genet Booth presents today on 12/10/2023 in the Vascular clinic for post-operative follow up AVF. He is currently a resident if [facility]. He is scheduled to discharge home once transportation is in place. Patient denies complaints of chest pain, SOB, abdo adarsh pain, lightheadedness, dizziness. They have had no syncope or TIA/CVA type symptoms. Patient denies claudication or BLE rest pain. 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 Hyperlipidemia Hypertension Malignant neoplasm of prostate (HCC) Morbid obesity due to excess calories (HCC) CHLOÉ (obstructive sleep apnea) no longer uses cpap Pneumonia UTI (urinary tract infection) Past Surgical History: Procedure Laterality Date CATARACT EXTRACTION, BILATERAL FISTULA ARTERIOVENOUS Right 07/31/2023 Procedure: RIGHT UPPER EXTREMITY (RADIOCEPHALIC) ARTERIOVENOUS FISTULA CREATION; Surgeon: Cali Jacob MD; Location: Main OR; Service: [facility] INTERVENTIONAL RADIOLOGY PROCEDURE 11/28/2023 IR NEPHROSTOMY TUBE PLACEMENT RT 11/28/2023 IR NEPHROSTOMY TUBE PLACEMENT LT Left 10/2023 left artificial hip joint Left PORTACATH PLACEMENT 04/2023 REVISION SHUNT A-V Right 10/29/2023 Procedure: RIGHT UPPER EXTREMITY ARTERIOVENOUS (CEPHALIC) X2 BRANCH LIGATION; Surgeon: Cali Jacob MD; Location: Main OR; Service: [facility] TOTAL KNEE ARTHROPLASTY Right Family History Problem Relation Age of Onset Aneurysm Mother Alzheimer's disease Father Prostate cancer Father Throat cancer Father Social History Socioeconomic History Marital status: Single Tobacco Use Smoking status: Former Current packs/day: 0.00 Average packs/day: 0.3 packs/day for 15.0 years (3.8 ttl pk-yrs) Types: Cigarettes Start date: 1964 Quit date: 1979 Years since quittin.5 Smokeless tobacco: Never Vaping Use Vaping status: Never Used Substance and Sexual Activity Alcohol use: Never Drug use: Never Social Determinants of Health Financial Resource Strain: Low Risk (04/01/2023) Received from [facility], [facility] Overall Financial Resource Strain (CARDIA) Difficulty of Paying Living Expenses: Not hard at all Transportation Needs: No Transportation Needs (04/01/2023) Received from [facility], [facility] PRAPARE - Transportation Lack of Transportation (Medical): No Lack of Transportation (Non-Medical): No Allergy Information: I have reviewed the patient's allergies. Bupropion, Ct: iodinated contrast- oral and iv dye, and Meloxicam Home Medications: Current Outpatient Medications Medication Sig Dispense Refill acetaminophen (TYLENOL) 325 MG tablet Take 2 (two) tablets (650 mg total) by mouth every 4 (four) hours as needed for pain or fever . allopurinoL (ZYLOPRIM) 100 MG tablet Take 1 (one) tablet (100 mg total) by mouth every morning . amino acids-protein hydrolys 17-100 gram-kcal/30 mL Liqd Take 30 mL by mouth 3 (three) times a day . bisacodyL (DULCOLAX) 10 mg suppository Insert 1 (one) suppository (10 mg total) into the rectum daily as needed for constipation . carboxymethylcellulose 1 % ophthalmic solution 2 (two) drops 2 (two) times a day . epoetin kacie (PROCRIT) 2,000 unit/mL injection Inject 1 mL (2,000 Units total) under the skin once Every 14 days . ferrous sulfate 325 (65 FE) MG tablet Take 1 (one) tablet (325 mg total) by mouth 3 (three) times aday . levothyroxine (SYNTHROID, LEVOTHROID) 88 MCG tablet Take 1 (one) tablet (88 mcg total) by mouth every morning Reasons: a condition with low thyroid hormone levels. lidocaine (XYLOCAINE) 2 % jelly Apply topically as needed Apply to penis topically as needed beforecatheter change. . magnesium hydroxide 400 mg/5 mL Susp Take 30 mL (2,400 mg total) by mouth every 4 (four) hours as needed (constipation) . menthol-zinc oxide (Calmoseptine) 0.44-20.6 % Oint Apply topically 2 (two) times a day For excoriation of R buttock . multivitamin (THERAGRAN) per tablet Take 1 (one) tablet by mouth every morning . ondansetron (ZOFRAN) 4 MG tablet Take 1 (one) tablet (4 mg total) by mouth every 12 (twelve) hours as needed for nausea . oxyBUTYnin (DITROPAN) 5 MG tablet Take 1 (one) tablet (5 mg total) by mouth 2 (two) times a day . oxyCODONE (ROXICODONE) 5 MG immediate release tablet Take 1 (one) tablet (5 mg total) by mouth every 6 (six) hours as needed for pain . phenazopyridine (PYRIDIUM) 200 MG tablet Take 1 (one) tablet (200 mg total) by mouth 3 (three) times a day as needed for pain . polyethylene glycol (MIRALAX) 17 gram powder Take 17 (seventeen) g by mouth every morning Reasons: constipation. Renvela 800 mg tablet Take 1 (one) tablet (800 mg total) by mouth 3 (three) times a day with meals . senna-docusate (SENNA-S) 8.6-50 mg Take 2 (two) tablets by mouth every morning Reasons: constipation. sertraline (ZOLOFT) 50 MG tablet Take 3 (three) tablets (150 mg total) by mouth every morning . simethicone (GAS-X Extra Strength) 125 MG chewable tablet Chew and Swallow 180 mg every 8 (eight) hours as needed for flatulence . sodium chloride (Saline NasaL) 0.65 % nasal spray Instill 1 (one) spray into each nostril as needed(for dryness) . calcitrioL (ROCALTROL) 0.25 MCG capsule Take 1 (one) capsule (0.25 mcg total) by mouth every morning . HYDROcodone-acetaminophen (NORCO) 5-325 mg per tablet Take 1 (one) tablet by mouth every 8 (eight) hours as needed for pain . isosorbide mononitrate (IMDUR) 30 MG 24 hr tablet Take 1 (one) tablet (30 mg total) by mouth daily . No current facility-administered medications for this visit. Review of Systems: Review of Systems Constitutional: Negative for diaphoresis, malaise/fatigue, weight gain and weight loss. HENT: Negative for hearing loss, nosebleeds and tinnitus. Eyes: Positive for visual disturbance (wears glasses). Negative for blurred vision. Cardiovascular: Positive for dyspnea on exertion. Negative for chest pain, claudication, cyanosis, irregular heartbeat, leg swelling, near-syncope, orthopnea, palpitations, paroxysmal nocturnal dyspnea and syncope. Respiratory: Positive for shortness of breath (occasionally). Negative for hemoptysis and snoring. Endocrine: Negative for cold intolerance and heat intolerance. Hematologic/Lymphatic: Does not bruise/bleed easily. Skin: Negative for flushing, poor wound healing and rash. Musculoskeletal: Positive for arthritis, back pain, gout and joint pain (left knee). Negative for muscle weakness and myalgias. Gastrointestinal: Negative for abdominal pain, change in bowel habit, melena, nausea and vomiting. Genitourinary: Positive for hematuria. Negative for dysuria and nocturia. Neurological: Positive for dizziness, light-headedness, numbness (hands / feet) and paresthesias (hands / feet). Negative for headaches and loss of balance. Psychiatric/Behavioral: Negative for depression, memory loss and substance abuse. The patient is nervous/anxious. Physical Examination: Vital Signs: BP 102/66 (BP Location: Left arm, Patient Position: Sitting) Comment (BP Location): left arm only Pulse 66 Ht 5' 11 Wt 101.6 kg (224 lb) BMI 31.24 kg/m Physical Exam Physical Exam Vitals and nursing note reviewed. Constitutional: Appearance: Normal appearance. HENT: Head: Normocephalic. Eyes: General: Lids are normal. Cardiovascular: Rate and Rhythm: Normal rate and regular rhythm. Pulses: Radial pulses are 2+ on the right side. Heart sounds: No murmur heard. Comments: Right upper arm AVF with good thrill and bruit Pulmonary: Effort: No respiratory distress. Breath sounds: No decreased breath sounds, wheezing, rhonchi or rales. Skin: General: Skin is warm and dry. Neurological: Mental Status: He is alert and oriented to person, place, and time. Psychiatric: Behavior: Behavior is not agitated. Approximately 30 minutes was spent [id number], reviewing chart, and writing notes. More than 50% of this time was spent counseling and coordinating care with the patient. Thank you for allowing me to participate in Genet Booth's care. Should you have any questions regarding their management please do not hesitate to contact me. documented in this [id number] History of Present illness Narrative* Griselda Iqbal CNP - 12/10/2023 12:49 PM EDT Images from the original note were not included. VASCULAR MEDICINE CLINIC NOTE Patient Name: Genet Booth MR #: [id number] : 1945 Physicians: Hernesto Logan MD (Family); No ref. provider found (Referring) Assessment and Plan: AVF (arteriovenous fistula) (HCC) Genet has hx of AVF creation approximately 3 months ago that failed to mature most likely due to branch. He is now post ligation of the branch. He c/o some numbness to the right thumb and forefinger that is intermittent. There is good thrill and bruit present to the right upper arm AVF. Right radial pulse is palpable. He his hopeful to start home peritoneal dialysis in the near future. 10/29/2023 RIGHT UPPER EXTREMITY ARTERIOVENOUS (CEPHALIC) X6 BRANCH LIGATION (under US guidance) 07/31/2023 Procedures: RIGHT UPPER EXTREMITY BRACHIOCEPHALIC ARTERIOVENOUS FISTULA CREATION 2. FOREARM CEPHALIC VEIN EXPLORATION HD scan 12/08/2023 Conclusions * Patent arteriovenous fistula in the right upper extremity. Measurements listed below. * A branch measuring 6.6 mm is noted off the proximal fistula segment. This is one of the same branches visualized on the previous exam. The second branch off the proximal fistula is no longer visualized. * A second branch measuring 3.4 mm is noted off the mid to distal fistula and was not visualized onthe previous exam. Velocity 494 cm/s, AP 11.3 mm, depth 5.9 mm Patient is stable from a vascular standpoint. Will see prn. AVF can be accessed starting 12/16/2023 using 1 small needle in AVF and 1 needle in catheter for 2 weeks. If no problems arise after 2 weeks, then 2 larger needles may be used to AVF. If still no problems occur then IR office can be contacted to schedule OP palindrome catheter removal at [facility] at [phone]. ESRD (end stage renal disease) on dialysis ([facility]) Genet has known ESRD and is receiving hemodialysis on , , and Fri. His ESRD is managed by Dr De León in [place]. Hypertension Well controlled per JNC 8 guidelines at 102/66 -Managed by PCP History of Present Illness: I had the pleasure to see Genet Booth who is a 78 y.o. male with a past medical history as outlined below. Genet Booth presents today on 12/10/2023 in the Vascular clinic for post-operative follow up AVF. He is currently a resident if [facility]. He is scheduled to discharge home once transportation is in place. Patient denies complaints of chest pain, SOB, abdo adarsh pain, lightheadedness, dizziness. They have had no syncope or TIA/CVA type symptoms. Patient denies claudication or BLE rest pain. 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 Hyperlipidemia Hypertension Malignant neoplasm of prostate ([facility]) Morbid obesity due to excess calories (HCC) CHLOÉ (obstructive sleep apnea) no longer uses cpap Pneumonia UTI (urinary tract infection) Past Surgical History: Procedure Laterality Date CATARACT EXTRACTION, BILATERAL FISTULA ARTERIOVENOUS Right 07/31/2023 Procedure: RIGHT UPPER EXTREMITY (RADIOCEPHALIC) ARTERIOVENOUS FISTULA CREATION; Surgeon: Cali Jacob MD; Location: Main OR; Service: [facility] INTERVENTIONAL RADIOLOGY PROCEDURE 11/28/2023 IR NEPHROSTOMY TUBE PLACEMENT RT 11/28/2023 IR NEPHROSTOMY TUBE PLACEMENT LT Left 10/2023 left artificial hip joint Left PORTACATH PLACEMENT 04/2023 REVISION SHUNT A-V Right 10/29/2023 Procedure: RIGHT UPPER EXTREMITY ARTERIOVENOUS (CEPHALIC) X2 BRANCH LIGATION; Surgeon: Cali Jacob MD; Location: Main OR; Service: [facility] TOTAL KNEE ARTHROPLASTY Right Family History Problem Relation Age of Onset Aneurysm Mother Alzheimer's disease Father Prostate cancer Father Throat cancer Father Social History Socioeconomic History Marital status: Single Tobacco Use Smoking status: Former Current packs/day: 0.00 Average packs/day: 0.3 packs/day for 15.0 years (3.8 ttl pk-yrs) Types: Cigarettes Start date: 1964 Quit date: 1979 Years since quittin.5 Smokeless tobacco: Never Vaping Use Vaping status: Never Used Substance and Sexual Activity Alcohol use: Never Drug use: Never Social Determinants of Health Financial Resource Strain: Low Risk (04/01/2023) Received from [facility], [facility] Overall Financial Resource Strain (CARDIA) Difficulty of Paying Living Expenses: Not hard at all Transportation Needs: No Transportation Needs (04/01/2023) Received from [facility], [facility] PRAPARE - Transportation Lack of Transportation (Medical): No Lack of Transportation (Non-Medical): No Allergy Information: I have reviewed the patient's allergies. Bupropion, Ct: iodinated contrast- oral and iv dye, and Meloxicam Home Medications: Current Outpatient Medications Medication Sig Dispense Refill acetaminophen (TYLENOL) 325 MG tablet Take 2 (two) tablets (650 mg total) by mouth every 4 (four) hours as needed for pain or fever . allopurinoL (ZYLOPRIM) 100 MG tablet Take 1 (one) tablet (100 mg total) by mouth every morning . amino acids-protein hydrolys 17-100 gram-kcal/30 mL Liqd Take 30 mL by mouth 3 (three) times a day . bisacodyL (DULCOLAX) 10 mg suppository Insert 1 (one) suppository (10 mg total) into the rectum daily as needed for constipation . carboxymethylcellulose 1 % ophthalmic solution 2 (two) drops 2 (two) times a day . epoetin kacie (PROCRIT) 2,000 unit/mL injection Inject 1 mL (2,000 Units total) under the skin once Every 14 days . ferrous sulfate 325 (65 FE) MG tablet Take 1 (one) tablet (325 mg total) by mouth 3 (three) times aday . levothyroxine (SYNTHROID, LEVOTHROID) 88 MCG tablet Take 1 (one) tablet (88 mcg total) by mouth every morning Reasons: a condition with low thyroid hormone levels. lidocaine (XYLOCAINE) 2 % jelly Apply topically as needed Apply to penis topically as needed beforecatheter change. . magnesium hydroxide 400 mg/5 mL Susp Take 30 mL (2,400 mg total) by mouth every 4 (four) hours as needed (constipation) . menthol-zinc oxide (Calmoseptine) 0.44-20.6 % Oint Apply topically 2 (two) times a day For excoriation of R buttock . multivitamin (THERAGRAN) per tablet Take 1 (one) tablet by mouth every morning . ondansetron (ZOFRAN) 4 MG tablet Take 1 (one) tablet (4 mg total) by mouth every 12 (twelve) hours as needed for nausea . oxyBUTYnin (DITROPAN) 5 MG tablet Take 1 (one) tablet (5 mg total) by mouth 2 (two) times a day . oxyCODONE (ROXICODONE) 5 MG immediate release tablet Take 1 (one) tablet (5 mg total) by mouth every 6 (six) hours as needed for pain . phenazopyridine (PYRIDIUM) 200 MG tablet Take 1 (one) tablet (200 mg total) by mouth 3 (three) times a day as needed for pain . polyethylene glycol (MIRALAX) 17 gram powder Take 17 (seventeen) g by mouth every morning Reasons: constipation. Renvela 800 mg tablet Take 1 (one) tablet (800 mg total) by mouth 3 (three) times a day with meals . senna-docusate (SENNA-S) 8.6-50 mg Take 2 (two) tablets by mouth every morning Reasons: constipation. sertraline (ZOLOFT) 50 MG tablet Take 3 (three) tablets (150 mg total) by mouth every morning . simethicone (GAS-X Extra Strength) 125 MG chewable tablet Chew and Swallow 180 mg every 8 (eight) hours as needed for flatulence . sodium chloride (Saline NasaL) 0.65 % nasal spray Instill 1 (one) spray into each nostril as needed(for dryness) . calcitrioL (ROCALTROL) 0.25 MCG capsule Take 1 (one) capsule (0.25 mcg total) by mouth every morning . HYDROcodone-acetaminophen (NORCO) 5-325 mg per tablet Take 1 (one) tablet by mouth every 8 (eight) hours as needed for pain . isosorbide mononitrate (IMDUR) 30 MG 24 hr tablet Take 1 (one) tablet (30 mg total) by mouth daily . No current facility-administered medications for this visit. Review of Systems: Review of Systems Constitutional: Negative for diaphoresis, malaise/fatigue, weight gain and weight loss. HENT: Negative for hearing loss, nosebleeds and tinnitus. Eyes: Positive for visual disturbance (wears glasses). Negative for blurred vision. Cardiovascular: Positive for dyspnea on exertion. Negative for chest pain, claudication, cyanosis, irregular heartbeat, leg swelling, near-syncope, orthopnea, palpitations, paroxysmal nocturnal dyspnea and syncope. Respiratory: Positive for shortness of breath (occasionally). Negative for hemoptysis and snoring. Endocrine: Negative for cold intolerance and heat intolerance. Hematologic/Lymphatic: Does not bruise/bleed easily. Skin: Negative for flushing, poor wound healing and rash. Musculoskeletal: Positive for arthritis, back pain, gout and joint pain (left knee). Negative for muscle weakness and myalgias. Gastrointestinal: Negative for abdominal pain, change in bowel habit, melena, nausea and vomiting. Genitourinary: Positive for hematuria. Negative for dysuria and nocturia. Neurological: Positive for dizziness, light-headedness, numbness (hands / feet) and paresthesias (hands / feet). Negative for headaches and loss of balance. Psychiatric/Behavioral: Negative for depression, memory loss and substance abuse. The patient is nervous/anxious. Physical Examination: Vital Signs: BP 102/66 (BP Location: Left arm, Patient Position: Sitting) Comment (BP Location): left arm only Pulse 66 Ht 5' 11 Wt 101.6 kg (224 lb) BMI 31.24 kg/m Physical Exam Physical Exam Vitals and nursing note reviewed. Constitutional: Appearance: Normal appearance. HENT: Head: Normocephalic. Eyes: General: Lids are normal. Cardiovascular: Rate and Rhythm: Normal rate and regular rhythm. Pulses: Radial pulses are 2+ on the right side. Heart sounds: No murmur heard. Comments: Right upper arm AVF with good thrill and bruit Pulmonary: Effort: No respiratory distress. Breath sounds: No decreased breath sounds, wheezing, rhonchi or rales. Skin: General: Skin is warm and dry. Neurological: Mental Status: He is alert and oriented to person, place, and time. Psychiatric: Behavior: Behavior is not agitated. Approximately 30 minutes was spent [id number], reviewing chart, and writing notes. More than 50% of this time was spent counseling and coordinating care with the patient. Thank you for allowing me to participate in Genet Booth's care. Should you have any questions regarding their management please do not hesitate to contact me. documented in this [id number] Instructions* Patient Instructions* Gennaro Barger MA - 12/10/2023 12:47 PM EDT How to contact your Care Team: Provider: MD Griselda Seymour CNP Jill Bender, PA Nurse: Patricia Carrillo RN To reschedule office appointments call Scheduling [phone] In case of an emergency please call 911. When in need of refills please call the phone number listed above. Please include medication name, pharmacy name and specify 30 or 90 day supply Please check with your pharmacy within 24 hours of your request for refill. You must follow up as directed to continue current refills. Thank you! documented in this [id number] Instructions* Patient Instructions* Gennaro Barger MA - 12/10/2023 12:47 PM EDT How to contact your Care Team: Provider: MD Griselda Seymour CNP Jill Bender, PA Nurse: Patricia Carrillo RN To reschedule office appointments call Scheduling [phone] In case of an emergency please call 911. When in need of refills please call the phone number listed above. Please include medication name, pharmacy name and specify 30 or 90 day supply Please check with your pharmacy within 24 hours of your request for refill. You must follow up as directed to continue current refills. Thank you! documented in this [id number] Evaluation + Plan note* Assessment & Plan Note - Griselda Iqbal CNP - 11/26/2023 1:43 PM EDT Associated Problem(s): AVF (arteriovenous fistula) (HCC) Genet has hx of AVF creation approximately 3 months ago that failed to mature most likely due to branch. He is now post ligation of the branch. He denies symptoms of steal syndrome including numbness, tingling, and weakness. The left upper arm small incisions x 3 are healing well primarily. Thereis no evidence of infection including erythema, drainage, or streaking. Sutures removed without incident. There is good thrill and bruit present to the left upper arm AVF. Left radial pulse is palpable. 10/29/2023 RIGHT UPPER EXTREMITY ARTERIOVENOUS (CEPHALIC) X6 BRANCH LIGATION (under US guidance) 07/31/2023 Procedures: RIGHT UPPER EXTREMITY BRACHIOCEPHALIC ARTERIOVENOUS FISTULA CREATION 2. FOREARM CEPHALIC VEIN EXPLORATION HD scan today Conclusions * Patent arteriovenous fistula in the right upper extremity. Measurements listed below. * A branch measuring 6.6 mm is noted off the proximal fistula segment. This is one of the same branches visualized on the previous exam. The second branch off the proximal fistula is no longer visualized. * A second branch measuring 3.4 mm is noted off the mid to distal fistula and was not visualized onthe previous exam. Velocity 494 cm/s, AP 11.3 mm, depth 5.9 mm Plan: -Will see back in 2 weeks to reassess [id number] Miscellaneous Notes* Assessment & Plan Note - Griselda Iqbal CNP - 11/26/2023 1:43 PM EDTAssociated Problem(s): AVF (arteriovenous fistula) (HCC) Genet has hx of AVF creation approximately 3 months ago that failed to mature most likely due to branch. He is now post ligation of the branch. He denies symptoms of steal syndrome including numbness, tingling, and weakness. The left upper arm small incisions x 3 are healing well primarily. Thereis no evidence of infection including erythema, drainage, or streaking. Sutures removed without incident. There is good thrill and bruit present to the left upper arm AVF. Left radial pulse is palpable. 10/29/2023 RIGHT UPPER EXTREMITY ARTERIOVENOUS (CEPHALIC) X6 BRANCH LIGATION (under US guidance) 07/31/2023 Procedures: RIGHT UPPER EXTREMITY BRACHIOCEPHALIC ARTERIOVENOUS FISTULA CREATION 2. FOREARM CEPHALIC VEIN EXPLORATION HD scan today Conclusions * Patent arteriovenous fistula in the right upper extremity. Measurements listed below. * A branch measuring 6.6 mm is noted off the proximal fistula segment. This is one of the same branches visualized on the previous exam. The second branch off the proximal fistula is no longer visualized. * A second branch measuring 3.4 mm is noted off the mid to distal fistula and was not visualized onthe previous exam. Velocity 494 cm/s, AP 11.3 mm, depth 5.9 mm Plan: -Will see back in 2 weeks to reassess documented in this [id number] NoteVASCULAR MEDICINE CLINIC NOTE Patient Name: Genet Booth MR #: [id number] : 1945 Physicians: Hernesto Logan MD (Family); Cali Jacob MD (Referring) Assessment and Plan: AVF (arteriovenous fistula) (HCC) Genet has hx of AVF creation approximately 3 months ago that failed to mature most likely due to branch. He is now post ligation of the branch. He denies symptoms of steal syndrome including numbness, tingling, and weakness. The left upper arm small incisions x 3 are healing well primarily. There is no evidence of infection including erythema, drainage, or streaking. Sutures removed without incident. There is good thrill and bruit present to the left upper arm AVF. Left radial pulse is palpable. 10/29/2023 RIGHT UPPER EXTREMITY ARTERIOVENOUS (CEPHALIC) X6 BRANCH LIGATION (under US guidance) 07/31/2023 Procedures: RIGHT UPPER EXTREMITY BRACHIOCEPHALIC ARTERIOVENOUS FISTULA CREATION 2. FOREARM CEPHALIC VEIN EXPLORATION HD scan today Conclusions * Patent arteriovenous fistula in the right upper extremity. Measurements listed below. * A branch measuring 6.6 mm is noted off the proximal fistula segment. This is one of the same branches visualized on the previous exam. The second branch off the proximal fistula is no longer visualized. * A second branch measuring 3.4 mm is noted off the mid to distal fistula and was not visualized on the previous exam. Velocity 494 cm/s, AP 11.3 mm, depth 5.9 mm Plan: -Will see back in 2 weeks to reassess History of Present Illness: I had the pleasure to see Genet Booth who is a 78 y.o. male with a past medical history as outlined below. Genet Booth presents today on 11/26/2023 in the Vascular clinic for post-operative follow up. Patient denies complaints of chest pain, SOB, abdominal pain, lightheadedness, dizziness. They have had no syncope or TIA/CVA type symptoms. Patient denies claudication or BLE rest pain. 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 Hyperlipidemia Hypertension Malignant neoplasm of prostate (HCC) Morbid obesity due to excess calories (HCC) CHLOÉ (obstructive sleep apnea) no longer uses cpap Pneumonia UTI (urinary tract infection) Past Surgical History: Procedure Laterality Date CATARACT EXTRACTION, BILATERAL FISTULA ARTERIOVENOUS Right 07/31/2023 Procedure: RIGHT UPPER EXTREMITY (RADIOCEPHALIC) ARTERIOVENOUS FISTULA CREATION; Surgeon: Cali Jacob MD; Location: Main OR; Service: [facility] IR NEPHROSTOMY TUBE PLACEMENT LT Left 10/2023 left artificial hip joint Left PORTACATH PLACEMENT 04/2023 REVISION SHUNT A-V Right 10/29/2023 Procedure: RIGHT UPPER EXTREMITY ARTERIOVENOUS (CEPHALIC) X2 BRANCH LIGATION; Surgeon: Cali Jacob MD; Location: Main OR; Service: Gen-Vascular TOTAL KNEE ARTHROPLASTY Right Family History Problem Relation Age of Onset Aneurysm Mother Alzheimer's disease Father Prostate cancer Father Throat cancer Father Social History Socioeconomic History Marital status: Single Tobacco Use Smoking status: Former Current packs/day: 0.00 Average packs/day: 0.3 packs/day for 15.0 years (3.8 ttl pk-yrs) Types: Cigarettes Start date: 1964 Quit date: 1979 Years since quittin.5 Smokeless tobacco: Never Vaping Use Vaping status: Never Used Substance and Sexual Activity Alcohol use: Never Drug use: Never Social Determinants of Health Financial Resource Strain: Low Risk (04/01/2023) [facility], [facility] Overall Financial Resource Strain (CARDIA) Difficulty of Paying Living Expenses: Not hard at all Transportation Needs: No Transportation Needs (04/01/2023) Received from [facility], [facility] PRAPARE - Transportation Lack of Transportation (Medical): No Lack of Transportation (Non-Medical): No Housing Stability: Low Risk (04/01/2023) Received from [facility], [facility] Housing Stability Vital Sign Unable to Pay for Housing in the Last Year: No Number of Places Lived in the Last Year: 1 In the last 12 months, was there a time when you did not have a steady place to sleep or slept in a [facility]p (including now)?: No Allergy Information: I have reviewed the patient's allergies. Bupropion, Ct: iodinated contrast- oral and iv dy (more content not included)... [facility]06-26-2024 History of Present illness Narrative* Griselda Iqbal, CLINICAL TRIAL HEAD - 11/26/2023 1:37 PM EDT VASCULAR MEDICINE CLINIC NOTE Patient Name: Genet Booth MR #: [id number] : 1945 Physicians: Hernesto Logan MD (Family); Cali Jacob MD (Referring) Assessment and Plan: AVF (arteriovenous fistula) (HCC) Genet has hx of AVF creation approximately 3 months ago that failed to mature most likely due to branch. He is now post ligation of the branch. He denies symptoms of steal syndrome including numbness, tingling, and weakness. The left upper arm small incisions x 3 are healing well primarily. Thereis no evidence of infection including erythema, drainage, or streaking. Sutures removed without incident. There is good thrill and bruit present to the left upper arm AVF. Left radial pulse is palpable. 10/29/2023 RIGHT UPPER EXTREMITY ARTERIOVENOUS (CEPHALIC) X6 BRANCH LIGATION (under US guidance) 07/31/2023 Procedures: RIGHT UPPER EXTREMITY BRACHIOCEPHALIC ARTERIOVENOUS FISTULA CREATION 2. FOREARM CEPHALIC VEIN EXPLORATION HD scan today Conclusions * Patent arteriovenous fistula in the right upper extremity. Measurements listed below. * A branch measuring 6.6 mm is noted off the proximal fistula segment. This is one of the same branches visualized on the previous exam. The second branch off the proximal fistula is no longer visualized. * A second branch measuring 3.4 mm is noted off the mid to distal fistula and was not visualized onthe previous exam. Velocity 494 cm/s, AP 11.3 mm, depth 5.9 mm Plan: -Will see back in 2 weeks to reassess History of Present Illness: I had the pleasure to see Genet Booth who is a 78 y.o. male with a past medical history as outlined below. Genet Booth presents today on 11/26/2023 in the Vascular clinic for post-operative follow up. Patient denies complaints of chest pain, SOB, abdominal pain, lightheadedness, dizziness. They have had no syncope or TIA/CVA type symptoms. Patient denies claudication or BLE rest pain. 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 Hyperlipidemia Hypertension Malignant neoplasm of prostate (HCC) Morbid obesity due to excess calories (HCC) CHLOÉ (obstructive sleep apnea) no longer uses cpap Pneumonia UTI (urinary tract infection) Past Surgical History: Procedure Laterality Date CATARACT EXTRACTION, BILATERAL FISTULA ARTERIOVENOUS Right 07/31/2023 Procedure: RIGHT UPPER EXTREMITY (RADIOCEPHALIC) ARTERIOVENOUS FISTULA CREATION; Surgeon: Cali Jacob MD; Location: Main OR; Service: Gen-Vascular IR NEPHROSTOMY TUBE PLACEMENT LT Left 10/2023 left artificial hip joint Left PORTACATH PLACEMENT 04/2023 REVISION SHUNT A-V Right 10/29/2023 Procedure: RIGHT UPPER EXTREMITY ARTERIOVENOUS (CEPHALIC) X2 BRANCH LIGATION; Surgeon: Cali Jacob MD; Location: Main OR; Service: Gen-Vascular TOTAL KNEE ARTHROPLASTY Right Family History Problem Relation Age of Onset Aneurysm Mother Alzheimer's disease Father Prostate cancer Father Throat cancer Father Social History Socioeconomic History Marital status: Single Tobacco Use Smoking status: Former Current packs/day: 0.00 Average packs/day: 0.3 packs/day for 15.0 years (3.8 ttl pk-yrs) Types: Cigarettes Start date: 1964 Quit date: 1979 Years since quittin.5 Smokeless tobacco: Never Vaping Use Vaping status: Never Used Substance and Sexual Activity Alcohol use: Never Drug use: Never Social Determinants of Health Financial Resource Strain: Low Risk (04/01/2023) Received from [facility], [facility] Overall Financial Resource Strain (CARDIA) Difficulty of Paying Living Expenses: Not hard at all Transportation Needs: No Transportation Needs (04/01/2023) Received from [facility], [facility] PRAPARE - Transportation Lack of Transportation (Medical): No Lack of Transportation (Non-Medical): No Housing Stability: Low Risk (04/01/2023) Received from [facility], [facility] Housing Stability Vital Sign Unable to Pay for Housing in the Last Year: No Number of Places Lived in the Last Year: 1 In the last 12 months, was there a time when you did not have a steady place to sleep or slept in formerly [facility] (including now)?: No Allergy Information: I have reviewed the patient's allergies. Bupropion, Ct: iodinated contrast- oral and iv dye, and Meloxicam Home Medications: Current Outpatient Medications Medication Sig Dispense Refill acetaminophen (TYLENOL) 325 MG tablet Take 2 (two) tablets (650 mg total) by mouth every 4 (four) hours as needed for pain or fever . allopurinoL (ZYLOPRIM) 100 MG tablet Take 1 (one) tablet (100 mg total) by mouth every morning . amino acids-protein hydrolys 17-100 gram-kcal/30 mL Liqd Take 30 mL by mouth 3 (three) times a day . bisacodyL (DULCOLAX) 10 mg suppository Insert 1 (one) suppository (10 mg total) into the rectum daily as needed for constipation . carboxymethylcellulose 1 % ophthalmic solution 2 (two) drops 2 (two) times a day . ferrous sulfate 325 (65 FE) MG tablet Take 1 (one) tablet (325 mg total) by mouth 3 (three) times aday . HYDROcodone-acetaminophen (NORCO) 5-325 mg per tablet Take 1 (one) tablet by mouth every 8 (eight) hours as needed for pain . levothyroxine (SYNTHROID, LEVOTHROID) 88 MCG tablet Take 1 (one) tablet (88 mcg total) by mouth every morning Reasons: a condition with low thyroid hormone levels. lidocaine (XYLOCAINE) 2 % jelly Apply topically as needed Apply to penis topically as needed beforecatheter change. . magnesium hydroxide 400 mg/5 mL Susp Take 30 mL (2,400 mg total) by mouth every 4 (four) hours as needed (constipation) . menthol-zinc oxide (Calmoseptine) 0.44-20.6 % Oint Apply topically 2 (two) times a day For excoriation of R buttock . multivitamin (THERAGRAN) per tablet Take 1 (one) tablet by mouth every morning . ondansetron (ZOFRAN) 4 MG tablet Take 1 (one) tablet (4 mg total) by mouth every 12 (twelve) hours as needed for nausea . oxyBUTYnin (DITROPAN) 5 MG tablet Take 1 (one) tablet (5 mg total) by mouth 2 (two) times a day . oxyCODONE (ROXICODONE) 5 MG immediate release tablet Take 1 (one) tablet (5 mg total) by mouth every 6 (six) hours as needed for pain . phenazopyridine (PYRIDIUM) 200 MG tablet Take 1 (one) tablet (200 mg total) by mouth 3 (three) times a day as needed for pain . polyethylene glycol (MIRALAX) 17 gram powder Take 17 (seventeen) g by mouth every morning Reasons: constipation. senna-docusate (SENNA-S) 8.6-50 mg Take 2 (two) tablets by mouth every morning Reasons: constipation. sertraline (ZOLOFT) 50 MG tablet Take 3 (three) tablets (150 mg total) by mouth every morning . simethicone (GAS-X Extra Strength) 125 MG chewable tablet Chew and Swallow 180 mg every 8 (eight) hours as needed for flatulence . sodium chloride (Saline NasaL) 0.65 % nasal spray Instill 1 (one) spray into each nostril as needed(for dryness) . calcitrioL (ROCALTROL) 0.25 MCG capsule Take 1 (one) capsule (0.25 mcg total) by mouth every morning . epoetin kacie (PROCRIT) 2,000 unit/mL injection Inject 1 mL (2,000 Units total) under the skin once Every 14 days . isosorbide mononitrate (IMDUR) 30 MG 24 hr tablet Take 1 (one) tablet (30 mg total) by mouth daily . No current facility-administered medications for this visit. Review of Systems: ROS Physical Examination: Vital Signs: BP 106/60 (BP Location: Left arm, Patient Position: Sitting) Pulse (!) 49 Physical Exam Physical Exam Vitals and nursing note reviewed. Constitutional: Appearance: Normal appearance. HENT: Head: Normocephalic. Eyes: General: Lids are normal. Cardiovascular: Rate and Rhythm: Normal rate and regular rhythm. Heart sounds: No murmur heard. Pulmonary: Effort: No respiratory distress. Breath sounds: No decreased breath sounds, wheezing, rhonchi or rales. Skin: General: Skin is warm and dry. Neurological: Mental Status: He is alert and oriented to person, place, and time. Psychiatric: Behavior: Behavior is not agitated. Approximately 30 minutes was spent [id number], reviewing chart, and writing notes. More than 50% of this time was spent counseling and coordinating care with the patient. Thank you for allowing me to participate in Genet Booth's care. Should you have any questions regarding their management please do not hesitate to contact me. documented in this [id number] NoteVASCULAR MEDICINE CLINIC NOTE Patient Name: Genet Booth MR #: [id number] : 1945 Physicians: Hernesto Logan MD (Family); No ref. provider found (Referring) Assessment and Plan: No problem-specific Assessment & Plan notes found for this encounter. History of Present Illness: I had the pleasure to see Genet Booth who is a 78 y.o. male with a past medical history as outlined below. Genet Booth presents today on 12/22/2023 in the Vascular clinic for post-operative follow up. He is a resident of [facility]. He is hopeful to discharge home with passport soon. Patient denies complaints of chest pain, SOB, abdominal pain, lightheadedness, dizziness. They have had no syncope or TIA/CVA type symptoms. Patient denies claudication or BLE rest pain. 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 Hyperlipidemia Hypertension Malignant neoplasm of prostate (HCC) Morbid obesity due to excess calories (HCC) CHLOÉ (obstructive sleep apnea) no longer uses cpap Pneumonia UTI (urinary tract infection) Past Surgical History: Procedure Laterality Date CATARACT EXTRACTION, BILATERAL FISTULA ARTERIOVENOUS Right 07/31/2023 Procedure: RIGHT UPPER EXTREMITY (RADIOCEPHALIC) ARTERIOVENOUS FISTULA CREATION; Surgeon: Cali Jacob MD; Location: Main OR; Service: Gen-Vascular INTERVENTIONAL RADIOLOGY PROCEDURE 11/28/2023 IR NEPHROSTOMY TUBE PLACEMENT RT 11/28/2023 IR NEPHROSTOMY TUBE PLACEMENT LT Left 10/2023 left artificial hip joint Left PORTACATH PLACEMENT 04/2023 REVISION SHUNT A-V Right 10/29/2023 Procedure: RIGHT UPPER EXTREMITY ARTERIOVENOUS (CEPHALIC) X2 BRANCH LIGATION; Surgeon: Cali Jacob MD; Location: Main OR; Service: Gen-Vascular TOTAL KNEE ARTHROPLASTY Right Family History Problem Relation Age of Onset Aneurysm Mother Alzheimer's disease Father Prostate cancer Father Throat cancer Father Social History Socioeconomic History Marital status: Single Tobacco Use Smoking status: Former Current packs/day: 0.00 Average packs/day: 0.3 packs/day for 15.0 years (3.8 ttl pk-yrs) Types: Cigarettes Start date: 1964 Quit date: 1979 Years since quittin.5 Smokeless tobacco: Never Vaping Use Vaping status: Never Used Substance and Sexual Activity Alcohol use: Never Drug use: Never Social Determinants of Health Financial Resource Strain: Low Risk (04/01/2023) [facility] Overall Financial Resource Strain (CARDIA) Difficulty of Paying Living Expenses: Not hard at all Transportation Needs: No Transportation Needs (04/01/2023) Received from [facility], [facility] PRAPARE - Transportation Lack of Transportation (Medical): No Lack of Transportation (Non-Medical): No Allergy Information: I have reviewed the patient's allergies. Bupropion, Ct: iodinated contrast- oral and iv dye, and Meloxicam Home Medications: Current Outpatient Medications Medication Sig Dispense Refill acetaminophen (TYLENOL) 325 MG tablet Take 2 (two) tablets (650 mg total) by mouth every 4 (four) hours as needed for pain or fever . allopurinoL (ZYLOPRIM) 100 MG tablet Take 1 (one) tablet (100 mg total) by mouth every morning . amino acids-protein hydrolys 17-100 gram-kcal/30 mL Liqd Take 30 mL by mouth 3 (three) times a day . bisacodyL (DULCOLAX) 10 mg suppository Insert 1 (one) suppository (10 mg total) into the rectum daily as needed for constipation . calcitrioL (ROCALTROL) 0.25 MCG capsule Take 1 (one) capsule (0.25 mcg total) by mouth every morning . carboxymethylcellulose 1 % ophthalmic solution 2 (two) drops 2 (two) times a day . epoetin kacie (PROCRIT) 2,000 unit/mL injection Inject 1 mL (2,000 Units total) under the skin once Every 14 days . ferrous sulfate 325 (65 FE) MG tablet Take 1 (one) tablet (325 mg total) by mouth 3 (three) times a day . HYDROcodone-acetaminophen (NORCO) 5-325 mg per tablet Take 1 (one) tablet by mouth every 8 (eight) hours as needed for pain . isosorbide mononitrate (IMDUR) 30 MG 24 hr tablet Take 1 (one) tablet (30 mg total) by mouth daily . levothyroxine (SYNTHROID, LEVOTHROID) 88 MCG tablet Take 1 (one) tablet (88 mcg total) by mouth every morning Reasons: a condition with low thyroid hormone levels. lidocaine (XYLOCAINE) 2 % jelly Apply topically as needed Ap (more content not included)...[facility]06-12-2024 History of Present illness Narrative* Jonh Bah MD - 11/12/2023 1:15 PM EDT Subjective Patient ID: Genet Booth is a 78 y.o. male. HPI Patient is here for 6 week follow up for Hx of hydro. S/P cystoscopy with Right RPG and ureteroscopy and Right stent change and I Attempted Left stent placement and Attempted SP tube placement On 06/25. He was referred to IR for Perc tube. This was placed on 09/19/23. . He is on HD from Dr. De León. . He is takng Oxybutynin. Most recent PSA was 0.1 04/24 Review of Systems Constitutional: Negative for chills and fever. HENT: Negative. Eyes: Negative. Respiratory: Negative for cough and shortness of breath. Cardiovascular: Negative for chest pain and leg swelling. Gastrointestinal: Negative for nausea. Endocrine: Negative. Genitourinary: Negative for difficulty urinating. Negative except for documented in HPI Allergic/Immunologic: Negative. Neurological: Alert & oriented X 3 Hematological: Denies blood thinners Psychiatric/Behavioral: Negative. Objective Physical Exam Vitals and nursing note reviewed. Constitutional: General: He is not in acute distress. Appearance: Normal appearance. Pulmonary: Effort: Pulmonary effort is normal. Abdominal: Tenderness: There is no abdominal tenderness. Genitourinary: Comments: Kidneys non palpable bilaterally Bladder non palpable or tender Scrotum no mass, No hydrocele Epididymis- No spermatocele. Non Tender. Testicles: No mass Urethra: No discharge Penis within normal limits... No lesions Prostate -deferred Left neph tube in place Neurological: Mental Status: He is alert. Assessment/Plan Diagnoses and all orders for this visit: History of prostate cancer Renal stones Postprocedural membranous urethral stricture Other hydronephrosis All available PSA values reviewed, Options discussed. Questions answered. Diet changes for prostate health discussed and educational information given. Pros/Cons of prostatehealth supplements discussed. Treatment options for LUTS reviewed Continue Jamison catheter for now Oxybutinin Rx refilled Discussed timed voiding. Discussed fluid and caffeine intake Treatment options for ED reviewed. Lifestyle change to help prevent UTIs discussed. Encouraged fluid intake. Reviewed IR notes-Will ask them to internalizes stent. The other possibility would be to simply remove Neph tube and right stent if patient is HD dependent- Will ask Dr De León to comment Spoke with Dr De León regarding patient BMP reviewed F/U 2 weeks to finalize plan [facility] Work Phone: 1(796) 213-147905-20-2024 NoteVascular Surgery Office Note: Heart & Vascular [facility] 10/20/2023 Cali Jacob MD Vascular & Endovascular Surgery [address] [place] [address] Medical Office Building [facility] [address] Patient: Genet Booth Date of : 1945 (78 y.o.) Referring Provider: Cali Jacob MD PCP: Hernesto Logan MD Assessment & Plan Genet Booth is a 78 y.o. male with history of hypertension, hyperlipidemia, obesity, obstructive sleep apnea, prostate cancer, urinary retention with a Jamison catheter in place, chronic left knee and hip pain, left nephrostomy tube, end-stage renal disease s/p RUE brachiocephalic AVF creation & FA cephalic vein exploration on 07/31/2023 who has two large branches off of proximal RUE brachiocephalic AVF that will require ligation to allow continued maturation of the AVF. No problem-specific Assessment & Plan notes found for this encounter. Follow-up: Plan for RUE brachiocephalic AVF (x2) branches ligation Chief Complaint: Permanent RUE HD access Subjective History of Present Illness: Genet Booth is a 78 y.o. male with history of hypertension, hyperlipidemia, obesity, obstructive sleep apnea, prostate cancer, urinary retention with a Jamison catheter in place, chronic left knee and hip pain, left nephrostomy tube, end-stage renal disease s/p RUE brachiocephalic AVF creation & FA cephalic vein exploration on 07/31/2023 who comes in for a 3 month follow up. Patient has been doing well since he was last seen in the office. His RUE AVF incision has completely healed. He has an excellent thrill in his RUE AVF and has a weakly palpable right radial pulse. Patient denies any distal RUE motor or sensory deficits. No digit discoloration or tingling. No fever or chills.Patient resides in a nursing facility. Patient denies any chest pain or palpitations. Nodifficulty breathing. No other complaints at this time. Objective RUE AVF duplex images were personally reviewed by me and show a patent AVF with two branches in the proximal aspect of the AVF ECG 12 Lead Final Result by Interface, Lab Results In [facility] (07/08/2023 0911) Review of Systems: Constitution: Negative for decreased appetite and weight loss. Positive for generalized malaise/weakness; Negative for fever/chills. HENT: Negative for hearing loss, hoarse voice and nosebleeds. Eyes: Negative for blurred vision, double vision, vision loss in left eye and vision loss in right eye. Cardiovascular: Negative for chest pain, leg pain and orthopnea. Positive for mild bilateral lower extremity edema Respiratory: Negative for hemoptysis and shortness of breath. Endocrine: Negative for cold intolerance, heat intolerance, polyphagia and polyuria. Hematologic/Lymphatic: Does bruise/bleed easily. Skin: Negative for color change, itching and nail changes. Musculoskeletal: Positive for arthritis and joint pain. Positive for left knee, hip and back pain. Gastrointestinal: Negative for abdominal pain, hematochezia and melena. Genitourinary: Positive for dysuria and urinary retention requiring Jamison catheter. Neurological: Negative for brief paralysis, focal weakness, loss of balance and seizures. Psychiatric/Behavioral: Negative for altered mental status, hallucinations and memory loss. 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 Hyperlipidemia Hypertension Malignant neoplasm of prostate (HCC) Morbid obesity due to excess calories (HCC) CHLOÉ (obstructive sleep apnea) no longer uses cpap Pneumonia UTI (urinary tract infection) Past Surgical History: Procedure Laterality Date CATARACT EXTRACTION, BILATERAL FISTULA ARTERIOVENOUS Right 07/31/2023 Procedure: RIGHT UPPER EXTREMITY (RADIOCEPHALIC) ARTERIOVENOUS FISTULA CREATION; Surgeon: Cali Jacob MD; Location: Main OR; Service: Gen-Vascular IR NEPHROSTOMY TUBE PLACEMENT LT Left 10/2023 left artificial hip joint Left PORTACATH PLACEMENT 04/2023 TOTAL KNEE ARTHROPLASTY Right Family History Problem Relation Age of Onset Aneurysm Mother Alzheimer's disease Father Prostate cancer Father Throat cancer Father Social History Tobacco Use Smoking Status Former Packs/day: 0.25 Years: 15.00 Additional pack years: 0.00 Total pack years: 3.75 Types: Cigarettes Quit date: 1979 Years since quittin.4 Smokeless Tobacco Never Allergies: Bupropion, Ct: iodinated contrast- oral and iv dye, and Meloxicam HOME Medications: Current Outpatient Medications on File Prior to Visit Medication Sig acetaminophen (TYLENOL) 325 MG t (more content not included)...[facility] [id number] History of Present illness Narrative* Cali Jacob MD - 10/20/2023 8:52 AM EDT Vascular Surgery Office Note: Heart & Vascular [facility] 10/20/2023 Cali Jacob MD Vascular & Endovascular Surgery [address] [place] [address] Medical Office [facility] [address] Patient: Genet Booth Date of : 1945 (78 y.o.) Referring Provider: Cali Jacob MD PCP: Hernesto Logan MD Assessment & Plan Genet Booth is a 78 y.o. male with history of hypertension, hyperlipidemia, obesity, obstructive sleep apnea, prostate cancer, urinary retention with a Jamison catheter in place, chronic left knee andhip pain, left nephrostomy tube, end-stage renal disease s/p RUE brachiocephalic AVF creation &FA cephalic vein exploration on 07/31/2023 who has two large branches off of proximal RUE brachiocephalic AVF that will require ligation to allow continued maturation of the AVF. No problem-specific Assessment & Plan notes found for this encounter. Follow-up: Plan for RUE brachiocephalic AVF (x2) branches ligation Chief Complaint: Permanent RUE HD access Subjective History of Present Illness: Genet Booth is a 78 y.o. male with history of hypertension, hyperlipidemia, obesity, obstructive sleep apnea, prostate cancer, urinary retention with a Jamison catheter in place, chronic left knee andhip pain, left nephrostomy tube, end-stage renal disease s/p RUE brachiocephalic AVF creation &FA cephalic vein exploration on 07/31/2023 who comes in for a 3 month follow up. Patient has been doing well since he was last seen in the office. His RUE AVF incision has completely healed. He has anexcellent thrill in his RUE AVF and has a weakly palpable right radial pulse. Patient denies any distal RUE motor or sensory deficits. No digit discoloration or tingling. No fever or chills.Patient resides in a nursing facility. Patient denies any chest pain or palpitations. No difficulty breathing. No other complaints at this time. Objective RUE AVF duplex images were personally reviewed by me and show a patent AVF with two branches in theproximal aspect of the AVF ECG 12 Lead Final Result by Interface, Lab Results In [facility] (07/08/2023 0911) Review of Systems: Constitution: Negative for decreased appetite and weight loss. Positive for generalized malaise/weakness; Negative for fever/chills. HENT: Negative for hearing loss, hoarse voice and nosebleeds. Eyes: Negative for blurred vision, double vision, vision loss in left eye and vision loss in right eye. Cardiovascular: Negative for chest pain, leg pain and orthopnea. Positive for mild bilateral lower extremity edema Respiratory: Negative for hemoptysis and shortness of breath. Endocrine: Negative for cold intolerance, heat intolerance, polyphagia and polyuria. Hematologic/Lymphatic: Does bruise/bleed easily. Skin: Negative for color change, itching and nail changes. Musculoskeletal: Positive for arthritis and joint pain. Positive for left knee, hip and back pain. Gastrointestinal: Negative for abdominal pain, hematochezia and melena. Genitourinary: Positive for dysuria and urinary retention requiring Jamison catheter. Neurological: Negative for brief paralysis, focal weakness, loss of balance and seizures. Psychiatric/Behavioral: Negative for altered mental status, hallucinations and memory loss. 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 Hyperlipidemia Hypertension Malignant neoplasm of prostate (HCC) Morbid obesity due to excess calories (HCC) CHLOÉ (obstructive sleep apnea) no longer uses cpap Pneumonia UTI (urinary tract infection) Past Surgical History: Procedure Laterality Date CATARACT EXTRACTION, BILATERAL FISTULA ARTERIOVENOUS Right 07/31/2023 Procedure: RIGHT UPPER EXTREMITY (RADIOCEPHALIC) ARTERIOVENOUS FISTULA CREATION; Surgeon: Cali Jacob MD; Location: Main OR; Service: Gen-Vascular IR NEPHROSTOMY TUBE PLACEMENT LT Left 10/2023 left artificial hip joint Left PORTACATH PLACEMENT 04/2023 TOTAL KNEE ARTHROPLASTY Right Family History Problem Relation Age of Onset Aneurysm Mother Alzheimer's disease Father Prostate cancer Father Throat cancer Father Social History Tobacco Use Smoking Status Former Packs/day: 0.25 Years: 15.00 Additional pack years: 0.00 Total pack years: 3.75 Types: Cigarettes Quit date: 1979 Years since quittin.4 Smokeless Tobacco Never Allergies: Bupropion, Ct: iodinated contrast- oral and iv dye, and Meloxicam HOME Medications: Current Outpatient Medications on File Prior to Visit Medication Sig acetaminophen (TYLENOL) 325 MG tablet Take 2 (two) tablets (650 mg total) by mouth every 4 (four) hours as needed for pain or fever . allopurinoL (ZYLOPRIM) 100 MG tablet Take 1 (one) tablet (100 mg total) by mouth every morning . amino acids-protein hydrolys 17-100 gram-kcal/30 mL Liqd Take 30 mL by mouth 3 (three) times a day . bisacodyL (DULCOLAX) 10 mg suppository Insert 1 (one) suppository (10 mg total) into the rectum daily as needed for constipation . carboxymethylcellulose 1 % ophthalmic solution 2 (two) drops 2 (two) times a day . epoetin kacie (PROCRIT) 2,000 unit/mL injection Inject 1 mL (2,000 Units total) under the skin once Every 14 days . ferrous sulfate 325 (65 FE) MG tablet Take 1 (one) tablet (325 mg total) by mouth 3 (three) times aday . levothyroxine (SYNTHROID, LEVOTHROID) 88 MCG tablet Take 1 (one) tablet (88 mcg total) by mouth every morning Reasons: a condition with low thyroid hormone levels. lidocaine (XYLOCAINE) 2 % jelly Apply topically as needed Apply to penis topically as needed beforecatheter change. . magnesium hydroxide 400 mg/5 mL Susp Take 30 mL (2,400 mg total) by mouth every 4 (four) hours as needed (constipation) . menthol-zinc oxide (Calmoseptine) 0.44-20.6 % Oint Apply topically 2 (two) times a day For excoriation of R buttock . multivitamin (THERAGRAN) per tablet Take 1 (one) tablet by mouth every morning . ondansetron (ZOFRAN) 4 MG tablet Take 1 (one) tablet (4 mg total) by mouth every 12 (twelve) hours as needed for nausea . oxyBUTYnin (DITROPAN) 5 MG tablet Take 1 (one) tablet (5 mg total) by mouth 2 (two) times a day . phenazopyridine (PYRIDIUM) 200 MG tablet Take 1 (one) tablet (200 mg total) by mouth 3 (three) times a day as needed for pain . polyethylene glycol (MIRALAX) 17 gram powder Take 17 (seventeen) g by mouth every morning Reasons: constipation. senna-docusate (SENNA-S) 8.6-50 mg Take 2 (two) tablets by mouth every morning Reasons: constipation. sertraline (ZOLOFT) 100 MG tablet Take 1 (one) tablet (100 mg total) by mouth daily . simethicone (GAS-X Extra Strength) 125 MG chewable tablet Chew and Swallow 180 mg every 8 (eight) hours as needed for flatulence . calcitrioL (ROCALTROL) 0.25 MCG capsule Take 1 (one) capsule (0.25 mcg total) by mouth every morning . doxycycline hyclate (VIBRA-TABS) 100 MG tablet Take 1 (one) tablet (100 mg total) by mouth 2 (two) times a day . (Patient not taking: Reported on 10/20/2023 .) HYDROcodone-acetaminophen (NORCO) 5-325 mg per tablet Take 1 (one) tablet by mouth every 8 (eight) hours as needed for pain . isosorbide mononitrate (IMDUR) 30 MG 24 hr tablet Take 1 (one) tablet (30 mg total) by mouth daily . levoFLOXacin (LEVAQUIN) 250 MG tablet Take 1 (one) tablet (250 mg total) by mouth every other day . oxyCODONE (ROXICODONE) 5 MG immediate release tablet Take 1 (one) tablet (5 mg total) by mouth every 6 (six) hours as needed for pain . sertraline (ZOLOFT) 50 MG tablet Take 3 (three) tablets (150 mg total) by mouth every morning . sodium chloride (Saline NasaL) 0.65 % nasal spray Instill 1 (one) spray into each nostril as needed(for dryness) . No current facility-administered medications on file prior to visit. Vital Signs: BP (!) 109/55 (BP Location: Left arm, Patient Position: Sitting) Pulse 80 Ht 5' 10 Wt 101.2 kg (223 lb) BMI 32.00 kg/m Physical Exam Constitutional: General: He is not in acute distress. Appearance: He is obese. He is not ill-appearing, toxic-appearing or diaphoretic. Comments: Frail elderly male in a wheelchair HENT: Head: Normocephalic and atraumatic. Nose: Nose normal. No congestion. Mouth/Throat: Pharynx: Oropharynx is clear. Eyes: General: No scleral icterus. Extraocular Movements: Extraocular movements intact. Conjunctiva/sclera: Conjunctivae normal. Pupils: Pupils are equal, round, and reactive to light. Neck: Vascular: No carotid bruit. Cardiovascular: Rate and Rhythm: Normal rate. Comments: All 4 extremities are warm and adequately perfused. Bilateral lower extremity edema. Bilateral radial pulses easily palpable. Abdominal: General: Abdomen is flat. There is no distension. Palpations: Abdomen is soft. Tenderness: There is no abdominal tenderness. There is no guarding. Genitourinary: Comments: Jamison catheter in place Musculoskeletal: easily appreciated brachiocephalic AVF thrill; easily palpable distal radial pulse General: Tenderness (Left knee and hip) present. Cervical back: Neck supple. No tenderness. Right lower leg: Edema present. Left lower leg: Edema present. Comments: Decubitus ulcer over sacrum Lymphadenopathy: Cervical: No cervical adenopathy. Skin: General: Skin is warm. Capillary Refill: Capillary refill takes less than 2 seconds. Coloration: Skin is not jaundiced. Findings: No bruising or lesion. Neurological: General: No focal deficit present. Mental Status: He is alert and oriented to person, place, and time. Mental status is at baseline. Cranial Nerves: No cranial nerve deficit. Motor: No weakness. Gait: Gait normal. Psychiatric: Mood and Affect: Mood normal. Behavior: Behavior normal. Thought Content: Thought content normal. Judgment: Judgment normal. No results found for: CHOL, LDLCALC, LDLDIRECT, TRIG, HDL documented in this [id number] Instructions* Patient Instructions* Tari Nascimento MA - 10/20/2023 8:21 AM EDT How to contact your Care Team: Provider: MD Griselda Seymour CNP Jill Bender, PA Nurse: Patricia Carrillo RN To reschedule office appointments call Scheduling [phone] In case of an emergency please call 911. When in need of refills please call the phone number listed above. Please include medication name, pharmacy name and specify 30 or 90 day supply Please check with your pharmacy within 24 hours of your request for refill. You must follow up as directed to continue current refills. Thank you! documented in this [id number] Hospital Discharge instructions * Discharge Instructions* Lucy Mccauley RN - 09/19/2023 4:36 PM EDT Follow instructions on patient info sheet #565 You received moderate sedation: - Do not drive a car, or operate any machinery or power tools of any kind. - Do not drink any alcoholic drinks. - Do not take any over the counter medications that may cause drowsiness. - Do not make any important decisions or sign any legal documents. - You need to have a responsible adult accompany you home. - You may resume your normal diet. - We strongly suggest that a responsible adult be with you for the rest of the day and also during the night. This is for your protection and safety. For questions related to your procedure: Please call [phone] between the hours of 7:00am-5:00pm Friday through Friday. Please call [phone] after 5:00pm and on weekends and holidays. In the event of an emergency call 911 or go to your nearest emergency room. [facility] Work Phone: [phone]) 869-847804-15-2024 History of Present illness Narrative* Cali Jacob MD - 09/15/2023 11:04 AM EDT Vascular Surgery Office Note Heart & Vascular [facility] 09/15/2023 Cali Jacob MD Vascular & Endovascular Surgery [address] [place] [address] Medical Office [facility] [address] Patient: Genet Booth Date of : 1945 (78 y.o.) Referring Provider: No ref. provider found PCP: Hernesto Logan MD Assessment & Plan Genet Booth is a 78 y.o. male with history of hypertension, hyperlipidemia, obesity, obstructive sleep apnea, prostate cancer, urinary retention with a Jamison catheter in place, chronic left knee andhip pain, end-stage renal disease s/p RUE brachiocephalic AVF creation & FA cephalic vein exploration on 07/31/2023 complicated by superficial incisional infection requiring oral antibiotics which has now completely healed. Patient continues to have an excellent thrill in the AV fistula with a palpable radial pulse distally in the extremity. Patient will have an AV fistula duplex in mid September. No problem-specific Assessment & Plan notes found for this encounter. Follow-up: Return in about 4 weeks (around 10/13/2023). Chief Complaint: Postop follow-up for wound check. Subjective History of Present Illness: Genet Booth is a 78 y.o. male with history of hypertension, hyperlipidemia, obesity, obstructive sleep apnea, prostate cancer, urinary retention with a Jamison catheter in place, chronic left knee andhip pain, end-stage renal disease s/p RUE brachiocephalic AVF creation & FA cephalic vein exploration on 07/31/2023 who comes in for a wound check right antecubital fossa. Patient had developed mild erythema and drainage from his RUE antecubital incision on the lateral aspect and required a course of oral antibiotics. Patient denied any fever or chills. At this time the incision has completelyhealed with complete resolution of any surrounding erythema and induration. Patient has an excellent thrill in the brachiocephalic AVF. He has an easily palpable right distal radial pulse. No digit discoloration or tingling. No motor or sensory deficit in right upper extremity. [facility] The lower right arm incision has also completely healed. Patient denies any chestpain or palpitations. No difficulty breathing. No other complaints at this time. Objective ECG 12 Lead Final Result by Interface, Lab Results In [facility] (07/08/2023 0911) Review of Systems: Constitution: Negative for decreased appetite and weight loss. Positive for generalized malaise/weakness; Negative for fever/chills. HENT: Negative for hearing loss, hoarse voice and nosebleeds. Eyes: Negative for blurred vision, double vision, vision loss in left eye and vision loss in right eye. Cardiovascular: Negative for chest pain, leg pain and orthopnea. Positive for mild bilateral lower extremity edema Respiratory: Negative for hemoptysis and shortness of breath. Endocrine: Negative for cold intolerance, heat intolerance, polyphagia and polyuria. Hematologic/Lymphatic: Does bruise/bleed easily. Skin: Negative for color change, itching and nail changes. Musculoskeletal: Positive for arthritis and joint pain. Positive for left knee, hip and back pain. Gastrointestinal: Negative for abdominal pain, hematochezia and melena. Genitourinary: Positive for dysuria and urinary retention requiring Jamison catheter. Neurological: Negative for brief paralysis, focal weakness, loss of balance and seizures. Psychiatric/Behavioral: Negative for altered mental status, hallucinations and memory loss. 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 Hyperlipidemia Hypertension Malignant neoplasm of prostate (HCC) Morbid obesity due to excess calories (HCC) CHLOÉ (obstructive sleep apnea) no longer uses cpap Pneumonia UTI (urinary tract infection) Past Surgical History: Procedure Laterality Date CATARACT EXTRACTION, BILATERAL FISTULA ARTERIOVENOUS Right 07/31/2023 Procedure: RIGHT UPPER EXTREMITY (RADIOCEPHALIC) ARTERIOVENOUS FISTULA CREATION; Surgeon: Cali Jacob MD; Location: Main OR; Service: Gen-Vascular left artificial hip joint Left PORTACATH PLACEMENT 04/2023 TOTAL KNEE ARTHROPLASTY Right Family History Problem Relation Age of Onset Aneurysm Mother Alzheimer's disease Father Prostate cancer Father Throat cancer Father Social History Tobacco Use Smoking Status Former Packs/day: 0.25 Years: 15.00 Additional pack years: 0.00 Total pack years: 3.75 Types: Cigarettes Quit date: 1979 Years since quittin.3 Smokeless Tobacco Never Allergies: Bupropion, Ct: iodinated contrast- oral and iv dye, and Meloxicam HOME Medications: Current Outpatient Medications on File Prior to Visit Medication Sig acetaminophen (TYLENOL) 325 MG tablet Take 2 (two) tablets (650 mg total) by mouth every 4 (four) hours as needed for pain or fever . allopurinoL (ZYLOPRIM) 100 MG tablet Take 1 (one) tablet (100 mg total) by mouth every morning . amino acids-protein hydrolys 17-100 gram-kcal/30 mL Liqd Take 30 mL by mouth 3 (three) times a day . bisacodyL (DULCOLAX) 10 mg suppository Insert 1 (one) suppository (10 mg total) into the rectum daily as needed for constipation . doxycycline hyclate (VIBRA-TABS) 100 MG tablet Take 1 (one) tablet (100 mg total) by mouth 2 (two) times a day . epoetin kacie (PROCRIT) 2,000 unit/mL injection Inject 1 mL (2,000 Units total) under the skin once Every 14 days . ferrous sulfate 325 (65 FE) MG tablet Take 1 (one) tablet (325 mg total) by mouth 3 (three) times aday . levothyroxine (SYNTHROID, LEVOTHROID) 88 MCG tablet Take 1 (one) tablet (88 mcg total) by mouth every morning Reasons: a condition with low thyroid hormone levels. lidocaine (XYLOCAINE) 2 % jelly Apply topically as needed Apply to penis topically as needed beforecatheter change. . magnesium hydroxide 400 mg/5 mL Susp Take 30 mL (2,400 mg total) by mouth every 4 (four) hours as needed (constipation) . menthol-zinc oxide (Calmoseptine) 0.44-20.6 % Oint Apply topically 2 (two) times a day For excoriation of R buttock . multivitamin (THERAGRAN) per tablet Take 1 (one) tablet by mouth every morning . ondansetron (ZOFRAN) 4 MG tablet Take 1 (one) tablet (4 mg total) by mouth every 12 (twelve) hours as needed for nausea . oxyBUTYnin (DITROPAN) 5 MG tablet Take 1 (one) tablet (5 mg total) by mouth 2 (two) times a day . oxyCODONE (ROXICODONE) 5 MG immediate release tablet Take 1 (one) tablet (5 mg total) by mouth every 6 (six) hours as needed for pain . phenazopyridine (PYRIDIUM) 200 MG tablet Take 1 (one) tablet (200 mg total) by mouth 3 (three) times a day as needed for pain . polyethylene glycol (MIRALAX) 17 gram powder Take 17 (seventeen) g by mouth every morning Reasons: constipation. senna-docusate (SENNA-S) 8.6-50 mg Take 2 (two) tablets by mouth every morning Reasons: constipation. sertraline (ZOLOFT) 50 MG tablet Take 3 (three) tablets (150 mg total) by mouth every morning . simethicone (GAS-X Extra Strength) 125 MG chewable tablet Chew and Swallow 180 mg every 8 (eight) hours as needed for flatulence . calcitrioL (ROCALTROL) 0.25 MCG capsule Take 1 (one) capsule (0.25 mcg total) by mouth every morning . HYDROcodone-acetaminophen (NORCO) 5-325 mg per tablet Take 1 (one) tablet by mouth every 8 (eight) hours as needed for pain . isosorbide mononitrate (IMDUR) 30 MG 24 hr tablet Take 1 (one) tablet (30 mg total) by mouth daily . levoFLOXacin (LEVAQUIN) 250 MG tablet Take 1 (one) tablet (250 mg total) by mouth every other day . simvastatin (ZOCOR) 20 MG tablet Take 1 (one) tablet (20 mg total) by mouth nightly . (Patient not taking: Reported on 09/15/2023 .) sodium chloride (Saline NasaL) 0.65 % nasal spray Instill 1 (one) spray into each nostril as needed(for dryness) . No current facility-administered medications on file prior to visit. Vital Signs: BP (!) 94/58 (BP Location: Left arm, Patient Position: Sitting) Pulse 90 Ht 5' 10 Wt 102.1 kg (225 lb) BMI 32.28 kg/m Physical Exam Constitutional: General: He is not in acute distress. Appearance: He is obese. He is not ill-appearing, toxic-appearing or diaphoretic. Comments: Frail elderly male in a wheelchair HENT: Head: Normocephalic and atraumatic. Nose: Nose normal. No congestion. Mouth/Throat: Pharynx: Oropharynx is clear. Eyes: General: No scleral icterus. Extraocular Movements: Extraocular movements intact. Conjunctiva/sclera: Conjunctivae normal. Pupils: Pupils are equal, round, and reactive to light. Neck: Vascular: No carotid bruit. Cardiovascular: Rate and Rhythm: Normal rate. Comments: All 4 extremities are warm and adequately perfused. Bilateral lower extremity edema. Bilateral radial pulses easily palpable. Abdominal: General: Abdomen is flat. There is no distension. Palpations: Abdomen is soft. Tenderness: There is no abdominal tenderness. There is no guarding. Genitourinary: Comments: Jamison catheter in place Musculoskeletal: easily appreciated brachiocephalic AVF thrill; easily palpable distal radial pulse General: Tenderness (Left knee and hip) present. Cervical back: Neck supple. No tenderness. Right lower leg: Edema present. Left lower leg: Edema present. Comments: Decubitus ulcer over sacrum Lymphadenopathy: Cervical: No cervical adenopathy. Skin: General: Skin is warm. Capillary Refill: Capillary refill takes less than 2 seconds. Coloration: Skin is not jaundiced. Findings: No bruising or lesion. Neurological: General: No focal deficit present. Mental Status: He is alert and oriented to person, place, and time. Mental status is at baseline. Cranial Nerves: No cranial nerve deficit. Motor: No weakness. Gait: Gait normal. Psychiatric: Mood and Affect: Mood normal. Behavior: Behavior normal. Thought Content: Thought content normal. Judgment: Judgment normal. No results found for: CHOL, LDLCALC, LDLDIRECT, TRIG, HDL documented in this [id number] Instructions* Patient Instructions* Gennaro Barger MA - 09/15/2023 10:23 AM EDT How to contact your Care Team: Provider: MD Griselda Seymour CNP Jill Bender, PA Nurse: Patricia Carrillo RN To reschedule office appointments call Scheduling [phone] In case of an emergency please call 911. When in need of refills please call the phone number listed above. Please include medication name, pharmacy name and specify 30 or 90 day supply Please check with your pharmacy within 24 hours of your request for refill. You must follow up as directed to continue current refills. Thank you! documented in this [id number] History of Present illness Narrative* John Bah MD - 09/10/2023 9:30 AM EDT Subjective Patient ID: Genet Booth is a 78 y.o. male. HPI Patient is here for 2 month follow up. Hx of hydro. S/P cystoscopy with Right RPG and ureteroscopy and Right stent change, Attempted Left stent placement and Attempted SP tube placement. On 06/25. SP was not able to go in. He is on HD from Dr. De León. He states 1 week ago he passed 2 stones. He is takng Oxybutynin PSA was 0.1 04/24 Review of Systems Constitutional: Negative for chills and fever. HENT: Negative. Eyes: Negative. Respiratory: Negative for cough and shortness of breath. Cardiovascular: Negative for chest pain and leg swelling. Gastrointestinal: Negative for nausea. Endocrine: Negative. Genitourinary: Negative for difficulty urinating. Negative except for documented in HPI Allergic/Immunologic: Negative. Neurological: Alert & oriented X 3 Hematological: Denies blood thinners Psychiatric/Behavioral: Negative. Objective Physical Exam Vitals and nursing note reviewed. Constitutional: General: He is not in acute distress. Appearance: Normal appearance. Pulmonary: Effort: Pulmonary effort is normal. Abdominal: Tenderness: There is no abdominal tenderness. Genitourinary: Comments: Kidneys non palpable bilaterally Bladder non palpable or tender Scrotum no mass, No hydrocele Epididymis- No spermatocele. Non Tender. Testicles: No mass Urethra: No discharge Penis within normal limits... No lesions Prostate - unable-immobile In wheelchair Jamison draining clear urine Neurological: Mental Status: He is alert. Assessment/Plan Diagnoses and all orders for this visit: History of prostate cancer Renal stones Postprocedural membranous urethral stricture Urinary tract infection with hematuria, site unspecified ESRD (end stage renal disease) ([facility]) All available PSA values reviewed, Options discussed. Questions answered. Diet changes for prostate health discussed and educational information given. Pros/Cons of prostatehealth supplements discussed. Treatment options for LUTS reviewed Continue Jamison Discussed timed voiding. Discussed fluid and caffeine intake Treatment options for ED reviewed. Lifestyle change to help prevent UTIs discussed. Encouraged fluid intake. Will refer to Interventional radiologist for Left Perc tube placement/antegrade stent placement-Patient 100% wants to try this to see if this will improve overall renal Fxn. He is aware that this maynot alleviate the need for HD CT stone study ordered as no recent imaging has been done Right stent in place F/U 6 weeks [facility] Work Phone: [phone]) 563-633803-22-2024 Evaluation + Plan note* Assessment & Plan Note - Judy Ley MD - 08/22/2023 10:09 AM EDTAssociated Problem(s): Closed fracture of left hip, initial encounter ([facility]) Assessment: 4-1/2 months status post a left femoral neck fracture for which he received a hemiarthroplasty. Patient is wheelchair-bound and at a nursing facility rehab. His health has deteriorated inthe interval. He recently received a AV fistula in his right upper extremity. They had to do to tryset this ultimately succeeding but the more proximal incision got a MRSA infection. He also has recently had a UTI. He has an indwelling catheter. Today on inspection there appears to be purulence inthe urinary catheter. Plan: Follow-up in 3 months for reevaluation with new x-rays. They should be particularly aggressive with infection in this patient as he has a new total joint arthroplasty hemiarthroplasty to his left hip. These are particularly prone to bacteremia and infection early after the replacement. An infection and a hemiarthroplasty or total joint can be a morbid event. He states that he is making progress in physical therapy and I would encourage him to continue this. If he is discharged this should be arranged for in-home therapy. [facility] Work Phone: [phone] 792-454003-22-2024 Miscellaneous Notes* Assessment & Plan Note - Judy Ley MD - 08/22/2023 10:09 AM EDTAssociated Problem(s): Closed fracture of left hip, initial encounter ([facility]) Assessment: 4-1/2 months status post a left femoral neck fracture for which he received a hemiarthroplasty. Patient is wheelchair-bound and at a nursing facility rehab. His health has deteriorated inthe interval. He recently received a AV fistula in his right upper extremity. They had to do to tryset this ultimately succeeding but the more proximal incision got a MRSA infection. He also has recently had a UTI. He has an indwelling catheter. Today on inspection there appears to be purulence inthe urinary catheter. Plan: Follow-up in 3 months for reevaluation with new x-rays. They should be particularly aggressive with infection in this patient as he has a new total joint arthroplasty hemiarthroplasty to his left hip. These are particularly prone to bacteremia and infection early after the replacement. An infection and a hemiarthroplasty or total joint can be a morbid event. He states that he is making progress in physical therapy and I would encourage him to continue this. If he is discharged this should be arranged for in-home therapy. [facility] Work Phone: [phone] 436-699403-22-2024 History of Present illness Narrative* Judy Ley MD - 08/22/2023 9:45 AM EDT Assessment/Plan Encounter Diagnoses: No diagnosis found. Closed fracture of left hip, initial encounter ([facility]) Assessment: 4-1/2 months status post a left femoral neck fracture for which he received a hemiarthroplasty. Patient is wheelchair-bound and at a nursing facility rehab. His health has deteriorated inthe interval. He recently received a AV fistula in his right upper extremity. They had to do to tryset this ultimately succeeding but the more proximal incision got a MRSA infection. He also has recently had a UTI. He has an indwelling catheter. Today on inspection there appears to be purulence inthe urinary catheter. Plan: Follow-up in 3 months for reevaluation with new x-rays. They should be particularly aggressive with infection in this patient as he has a new total joint arthroplasty hemiarthroplasty to his left hip. These are particularly prone to bacteremia and infection early after the replacement. An infection and a hemiarthroplasty or total joint can be a morbid event. He states that he is making progress in physical therapy and I would encourage him to continue this. If he is discharged this should be arranged for in-home therapy. Subjective Patient ID: Genet Booth is a 78 y.o. male. Chief Complaint: Follow-up of the Left Hip Last Surgery: Hip Hemiarthroplasty - Left Last Surgery Date: 04/02/2023 HPI 78-year-old 4-1/2 months status post a left hemiarthroplasty. In the interval the patient has received a AV fistula which she states got infected with MRSA. He has been treated for this. He also has a urinary tract infection. He states that he is not getting antibiotics for this currently however it appears as if he has purulence in his Jamison catheter. He should be aggressive with antibiotics as he has a new total joint arthroplasty or hemiarthroplasty to the left hip. OBJECTIVE: ORTHO EXAM Left hip: Wheelchair-bound so his gait was not tested. He states that in therapy he is beginning to take steps with a walker. He feels he is improved. He is able to do a straight leg raise and flex his hip to about 90 degrees. In the chair he extendsto about 45 degrees and is limited just by the chair. Negative Trendelenburg sign Skin healthy and intact No tenderness to palpation over lumbar spine No tenderness over greater trochanter No tenderness referable to groin especially with IR His incision is clean and dry and appears to be healing well Negative flexion/adduction/internal rotation Negative flexion/abduction/external rotation test Negative straight leg raise Neurovascular exam normal distally IMAGE RESULTS: XR hip left with pelvis when performed 2 or 3 views These images are not reportable by radiology and will not be interpreted by Radiologists. X-rays from the nursing facility were available for my assessment. The hip is in a good position. There is no signs of loosening. It is well reduced. I am pleased with the position and early healing. ULTRASOUND None Procedures No orders of the defined types were placed in this encounter. [facility] Work Phone: [phone]) [phone] History of Present illness Narrative* Cali Jacob MD - 08/13/2023 8:58 AM EDT Vascular Surgery Office/Post-op F/U Heart & Vascular [facility] 08/13/2023 Cali Jacob MD Vascular & Endovascular Surgery [address] [facility] Medical Office [facility] [id number] Patient: Genet Booth Date of : 1945 (78 y.o.) Referring Provider: No ref. provider found PCP: Hernesto Logan MD Assessment & Plan Genet Booth is a 78 y.o. male with history of hypertension, hyperlipidemia, obesity, obstructive sleep apnea, prostate cancer, urinary retention with a Jamison catheter in place, chronic left knee andhip pain, end-stage renal disease s/p RUE brachiocephalic AVF creation & FA cephalic vein exploration on 07/31/2023 who comes in with a mild RUE incisional MRSA infection. Patient will complete a course of antibiotic (Doxycycline 100mg BID [id number]). He will return in 10 days if no improvement, otherwise in 4 weeks. No problem-specific Assessment & Plan notes found for this encounter. mild Follow-up: 4 weeks. Chief Complaint: post -op f/u Subjective History of Present Illness: Genet Booth is a 78 y.o. male with history of hypertension, hyperlipidemia, obesity, obstructive sleep apnea, prostate cancer, urinary retention with a Jamison catheter in place, chronic left knee andhip pain, end-stage renal disease s/p RUE brachiocephalic AVF creation & FA cephalic vein exploration on 07/31/2023 who comes in for a post-op visit. Patient states he developed mild erythema and drainage from his RUE antecubital incision on the lateral aspect about a week ago. This was accompanied by increasing pain and induration at the site. Patient denies any fever or chills. He has an excellent thrill in the brachiocephalic AVF. He has an easily palpable right distal radial pulse. No digit discoloration or tingling. No motor or sensory deficit in right upper extremity. Patient residesin a nursing facility. He states the facility physician removed the stables from the incision and cultured the wound, which grew as MRSA. Patient was started on appropriate antibiotics several days ago. The lower right arm incision is healing well without any erythema, drainage or iinduration. Patient denies any chest pain or palpitations. No difficulty breathing. No other complaints at this time. Objective ECG 12 Lead Final Result by Interface, [facility] 0911[facility] Review of Systems: Constitution: Negative for decreased appetite and weight loss. Positive for generalized malaise/weakness; Negative for fever/chills. HENT: Negative for hearing loss, hoarse voice and nosebleeds. Eyes: Negative for blurred vision, double vision, vision loss in left eye and vision loss in right eye. Cardiovascular: Negative for chest pain, leg pain and orthopnea. Positive for mild bilateral lower extremity edema Respiratory: Negative for hemoptysis and shortness of breath. Endocrine: Negative for cold intolerance, heat intolerance, polyphagia and polyuria. Hematologic/Lymphatic: Does bruise/bleed easily. Skin: Negative for color change, itching and nail changes. Musculoskeletal: Positive for arthritis and joint pain. Positive for left knee, hip and back pain. Positive for RUE incisional pain. Gastrointestinal: Negative for abdominal pain, hematochezia and melena. Genitourinary: Positive for dysuria and urinary retention requiring Jamison catheter. Neurological: Negative for brief paralysis, focal weakness, loss of balance and seizures. Psychiatric/Behavioral: Negative for altered mental status, hallucinations and memory loss. 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 Hyperlipidemia Hypertension Malignant neoplasm of prostate (HCC) Morbid obesity due to excess calories (HCC) CHLOÉ (obstructive sleep apnea) no longer uses cpap Pneumonia UTI (urinary tract infection) Past Surgical History: Procedure Laterality Date CATARACT EXTRACTION, BILATERAL FISTULA ARTERIOVENOUS Right 07/31/2023 Procedure: RIGHT UPPER EXTREMITY (RADIOCEPHALIC) ARTERIOVENOUS FISTULA CREATION; Surgeon: Cali Jacob MD; Location: Main OR; Service: Gen-Vascular left artificial hip joint Left PORTACATH PLACEMENT 04/2023 TOTAL KNEE ARTHROPLASTY Right Family History Problem Relation Age of Onset Aneurysm Mother Alzheimer's disease Father Prostate cancer Father Throat cancer Father Social History Tobacco Use Smoking Status Former Packs/day: 0.25 Years: 15.00 Additional pack years: 0.00 Total pack years: 3.75 Types: Cigarettes Quit date: 1979 Years since quittin.2 Smokeless Tobacco Never Allergies: Bupropion, Ct: iodinated contrast- oral and iv dye, and Meloxicam HOME Medications: Current Outpatient Medications on File Prior to Visit Medication Sig acetaminophen (TYLENOL) 325 MG tablet Take 2 (two) tablets (650 mg total) by mouth every 4 (four) hours as needed for pain or fever . allopurinoL (ZYLOPRIM) 100 MG tablet Take 1 (one) tablet (100 mg total) by mouth every morning . amino acids-protein hydrolys 17-100 gram-kcal/30 mL Liqd Take 30 mL by mouth 3 (three) times a day . bisacodyL (DULCOLAX) 10 mg suppository Insert 1 (one) suppository (10 mg total) into the rectum daily as needed for constipation . calcitrioL (ROCALTROL) 0.25 MCG capsule Take 1 (one) capsule (0.25 mcg total) by mouth every morning . epoetin kacie (PROCRIT) 2,000 unit/mL injection Inject 1 mL (2,000 Units total) under the skin once Every 14 days . ferrous sulfate 325 (65 FE) MG tablet Take 1 (one) tablet (325 mg total) by mouth 3 (three) times aday . HYDROcodone-acetaminophen (NORCO) 5-325 mg per tablet Take 1 (one) tablet by mouth every 8 (eight) hours as needed for pain . isosorbide mononitrate (IMDUR) 30 MG 24 hr tablet Take 1 (one) tablet (30 mg total) by mouth daily . levothyroxine (SYNTHROID, LEVOTHROID) 88 MCG tablet Take 1 (one) tablet (88 mcg total) by mouth every morning Reasons: a condition with low thyroid hormone levels. lidocaine (XYLOCAINE) 2 % jelly Apply topically as needed Apply to penis topically as needed beforecatheter change. . menthol-zinc oxide (Calmoseptine) 0.44-20.6 % Oint Apply topically 2 (two) times a day For excoriation of R buttock . multivitamin (THERAGRAN) per tablet Take 1 (one) tablet by mouth every morning . ondansetron (ZOFRAN) 4 MG tablet Take 1 (one) tablet (4 mg total) by mouth every 12 (twelve) hours as needed for nausea . oxyBUTYnin (DITROPAN) 5 MG tablet Take 1 (one) tablet (5 mg total) by mouth 2 (two) times a day . oxyCODONE (ROXICODONE) 5 MG immediate release tablet Take 1 (one) tablet (5 mg total) by mouth every 6 (six) hours as needed for pain . phenazopyridine (PYRIDIUM) 200 MG tablet Take 1 (one) tablet (200 mg total) by mouth 3 (three) times a day as needed for pain . polyethylene glycol (MIRALAX) 17 gram powder Take 17 (seventeen) g by mouth every morning Reasons: constipation. senna-docusate (SENNA-S) 8.6-50 mg Take 2 (two) tablets by mouth every morning Reasons: constipation. sertraline (ZOLOFT) 50 MG tablet Take 3 (three) tablets (150 mg total) by mouth every morning . simethicone (GAS-X Extra Strength) 125 MG chewable tablet Chew and Swallow 180 mg every 8 (eight) hours as needed for flatulence . sodium chloride (Saline NasaL) 0.65 % nasal spray Instill 1 (one) spray into each nostril as needed(for dryness) . levoFLOXacin (LEVAQUIN) 250 MG tablet Take 1 (one) tablet (250 mg total) by mouth every other day . magnesium hydroxide 400 mg/5 mL Susp Take 30 mL (2,400 mg total) by mouth every 4 (four) hours as needed (constipation) . simvastatin (ZOCOR) 20 MG tablet Take 1 (one) tablet (20 mg total) by mouth nightly . No current facility-administered medications on file prior to visit. Vital Signs: BP 90/61 (BP Location: Left arm, Patient Position: Sitting) Comment (BP Location): left arm only Pulse (!) 102 Ht 5' 10 Wt 102.1 kg (225 lb) BMI 32.28 kg/m Physical Exam Constitutional: General: He is not in acute distress. Appearance: He is obese. He is not ill-appearing, toxic-appearing or diaphoretic. Comments: Frail elderly male in a wheelchair HENT: Head: Normocephalic and atraumatic. Nose: Nose normal. No congestion. Mouth/Throat: Pharynx: Oropharynx is clear. Eyes: General: No scleral icterus. Extraocular Movements: Extraocular movements intact. Conjunctiva/sclera: Conjunctivae normal. Pupils: Pupils are equal, round, and reactive to light. Neck: Vascular: No carotid bruit. Cardiovascular: Rate and Rhythm: Normal rate. Comments: All 4 extremities are warm and adequately perfused. Bilateral lower extremity edema. Bilateral radial pulses easily palpable. Abdominal: General: Abdomen is flat. There is no distension. Palpations: Abdomen is soft. Tenderness: There is no abdominal tenderness. There is no guarding. Genitourinary: Comments: Jamison catheter in place Musculoskeletal: Positive for erythema, induration and tenderness with some thin purulent drainage from the lateral aspect of antecubital incision of RUE; easily appreciated brachiocephalic AVF thrill; easily palpable distal radial pulse General: Tenderness (Left knee and hip) present. Cervical back: Neck supple. No tenderness. Right lower leg: Edema present. Left lower leg: Edema present. Comments: Decubitus ulcer over sacrum Lymphadenopathy: Cervical: No cervical adenopathy. Skin: General: Skin is warm. Capillary Refill: Capillary refill takes less than 2 seconds. Coloration: Skin is not jaundiced. Findings: No bruising or lesion. Neurological: General: No focal deficit present. Mental Status: He is alert and oriented to person, place, and time. Mental status is at baseline. Cranial Nerves: No cranial nerve deficit. Motor: No weakness. Gait: Gait normal. Psychiatric: Mood and Affect: Mood normal. Behavior: Behavior normal. Thought Content: Thought content normal. Judgment: Judgment normal. No results found for: CHOL, LDLCALC, LDLDIRECT, TRIG, HDL documented in this [id number] Instructions* Patient Instructions* Gennaro Barger MA - 08/13/2023 8:23 AM EDT How to contact your Care Team: Provider: MD Griselda Seymour CNP Jill Bender, PA Nurse: Patricia Carrillo RN To reschedule office appointments call Scheduling [phone] In case of an emergency please call 911. When in need of refills please call the phone number listed above. Please include medication name, pharmacy name and specify 30 or 90 day supply Please check with your pharmacy within 24 hours of your request for refill. You must follow up as directed to continue current refills. Thank you! documented in this [id number] Evaluation + Plan note* Assessment & Plan Note - Judy Ley MD - 07/25/2023 10:15 AM ESTAssociated Problem(s): Closed fracture of left hip, initial encounter ([facility]) Assessment: Status post 04/02/2023 hemiarthroplasty. The patient states that he is having more soreness in the muscles around the hip since his last visit. His physical therapy has been discontinued. He has had some urinary tract infections for which she is on antibiotics. He points to the buttock and the medial groin area as where he has most of his pain. He started dialysis about 2 days after his hemiarthroplasty surgery. He denies any fever or chills. He states then he is significantly better than he was at his last visit. He is able to stand and put full weight on his left hip. He can take a few steps. Then he gets hypotensive from orthostatic hypotension which makes assessment of his hip more difficult. He is started back on physical therapy and he states this is helping. Unfortunately x-rays which were ordered were not performed so these are unavailable to me. Assessment: About 3-1/2 months status post left hip hemiarthroplasty. Given his intermittent urinary infectionsand attempts at stent placement and suprapubic catheterization it sounds as if he may have been bacteremic. He was not running a fever today. Given the time since his last visit I am no longer significantly concerned about infection since his hip pain has improved dramatically. However this is still a concern. He had some tenderness in the abductors with range of motion but he did have a zone of range of motion that was relatively nontender. He can stand and put weight on the hip without significant pain. He can take a few steps and then he gets orthostatic and has to sit down. Plan: Follow-up in 1 month for reevaluation with new x-rays. X-rays need to be obtained today and the actual scans need to be sent to our office so I can evaluate these. Continue physical therapy both for his left hip and also for his orthostatic issues and general physical conditioning. [facility] Work Phone: [phone]) 740-152302-23-2024 History of Present illness Narrative* Judy Ley MD - 07/25/2023 10:15 AM EST Assessment/Plan Encounter Diagnoses: Encounter for postoperative care History of left hip hemiarthroplasty Closed fracture of left hip, initial encounter ([facility]) Assessment: Status post 04/02/2023 hemiarthroplasty. The patient states that he is having more soreness in the muscles around the hip since his last visit. His physical therapy has been discontinued. He has had some urinary tract infections for which she is on antibiotics. He points to the buttock and the medial groin area as where he has most of his pain. He started dialysis about 2 days after his hemiarthroplasty surgery. He denies any fever or chills. He states then he is significantly better than he was at his last visit. He is able to stand and put full weight on his left hip. He can take a few steps. Then he gets hypotensive from orthostatic hypotension which makes assessment of his hip more difficult. He is started back on physical therapy and he states this is helping. Unfortunately x-rays which were ordered were not performed so these are unavailable to me. Assessment: About 3-1/2 months status post left hip hemiarthroplasty. Given his intermittent urinary infectionsand attempts at stent placement and suprapubic catheterization it sounds as if he may have been bacteremic. He was not running a fever today. Given the time since his last visit I am no longer significantly concerned about infection since his hip pain has improved dramatically. However this is still a concern. He had some tenderness in the abductors with range of motion but he did have a zone of range of motion that was relatively nontender. He can stand and put weight on the hip without significant pain. He can take a few steps and then he gets orthostatic and has to sit down. Plan: Follow-up in 1 month for reevaluation with new x-rays. X-rays need to be obtained today and the actual scans need to be sent to our office so I can evaluate these. Continue physical therapy both for his left hip and also for his orthostatic issues and general physical conditioning. Subjective Patient ID: Genet Booth is a 78 y.o. male. Chief Complaint: Follow-up and Pain of the Left Hip (Patient is here for FUV regarding pain in leftleg muscles. Patinet/Had left hip sx 04/02/2023, He states the hip itself is good, no pain, His pain is more in his muscles and tendons. He is able to put a little bit of weight on his left leg now, he was not able to do that about 2 weeks ago. ) 06/28/23- About 10 weeks status post left hemiarthroplasty. His physical therapy has been discontinued. He ishaving more pain in his hip since his last visit. He attributes this to the lack of physical therapy. He points to the medial adductor's and to his buttock is where he is having his pain. He has had some urinary tract infection with manipulation of his urinary tract for surgical interventions recently. They were unable to put in stents. He is on suppressive antibiotics for his UTIs. He understands that I am concerned that he may have seeded his hip joint. If his pain does not resolve quickly with rest he would need an aspiration of the joint. I recommended this but he adamantly states he willnot receive this until the middle of next week. 07/25/23-3-1/2 months status post left hemiarthroplasty. I was concerned at his last visit about possible seeding of the hip from bacteremia. However, he is much improved and has been weightbearing with minimal pain. He demonstrates active range of motion with more muscle soreness than deep hip soreness. Range of motion passively does not aggravate his hip significantly. And he is not running any fever or chills that would indicate a problem. Unfortunately, x-rays that were ordered were not performed. These will be done when he returns to the nursing facility and forwarded to me for evaluation. Last Surgery: Hip Hemiarthroplasty - Left Last Surgery Date: 04/02/2023 HPI See above OBJECTIVE: ORTHO EXAM Left hip: He is essentially nonweightbearing because of his cardiac issues. Skin healthy and intact No tenderness to palpation over lumbar spine No tenderness over greater trochanter No tenderness referable to groin especially with IR He was nontender to palpation over the surgical site. forward flexion to about 95 degrees and extension to about 70 degrees with minimal pain. This was tested in his wheelchair as he cannot get out of this because of orthostatic hypotension. Symmetric motion, no loss of internal rotation Moderate weakness with resisted hip flexion, abduction or adduction Negative flexion/adduction/internal rotation Negative flexion/abduction/external rotation test Negative straight leg raise Neurovascular exam normal distally His calves were nontender bilaterally. IMAGE RESULTS: XR hip left with pelvis when performed 2 or 3 views These images are not reportable by radiology and will not be interpreted by Radiologists. ULTRASOUND None Procedures Orders Placed This Encounter Point of Care Ultrasound XR hip left with pelvis when performed 2 or 3 views [facility] Work Phone: [phone] Miscellaneous Notes* Assessment & Plan Note - Judy Ley MD - 07/25/2023 10:15 AM ESTAssociated Problem(s): Closed fracture of left hip, initial encounter ([facility]) Assessment: Status post 04/02/2023 hemiarthroplasty. The patient states that he is having more soreness in the muscles around the hip since his last visit. His physical therapy has been discontinued. He has had some urinary tract infections for which she is on antibiotics. He points to the buttock and the medial groin area as where he has most of his pain. He started dialysis about 2 days after his hemiarthroplasty surgery. He denies any fever or chills. He states then he is significantly better than he was at his last visit. He is able to stand and put full weight on his left hip. He can take a few steps. Then he gets hypotensive from orthostatic hypotension which makes assessment of his hip more difficult. He is started back on physical therapy and he states this is helping. Unfortunately x-rays which were ordered were not performed so these are unavailable to me. Assessment: About 3-1/2 months status post left hip hemiarthroplasty. Given his intermittent urinary infectionsand attempts at stent placement and suprapubic catheterization it sounds as if he may have been bacteremic. He was not running a fever today. Given the time since his last visit I am no longer significantly concerned about infection since his hip pain has improved dramatically. However this is still a concern. He had some tenderness in the abductors with range of motion but he did have a zone of range of motion that was relatively nontender. He can stand and put weight on the hip without significant pain. He can take a few steps and then he gets orthostatic and has to sit down. Plan: Follow-up in 1 month for reevaluation with new x-rays. X-rays need to be obtained today and the actual scans need to be sent to our office so I can evaluate these. Continue physical therapy both for his left hip and also for his orthostatic issues and general physical conditioning. [facility] Work Phone: [phone] 560-979002-08-2024 History of Present illness Narrative* Patricia Carrillo RN - 07/10/2023 1:00 PM EST Order faxed to [facility] for Simvastatin per Dr. Jacob's previous orders on 06/23/23. documented in this [id number] History of Present illness Narrative* Genet Stein MD - 07/10/2023 10:32 AM EST OFFICE CONSULTATION NOTE [facility] [address] [facility] [address] [facility] [id number] Physicians: Ata Hernandez, (Family); Katrina Gardner, * (Referring) Subjective: Genet Booth is a 78 y.o. male seen in the office today for Pre-op Exam (Fistula placement w/Dr. Jacob) . HPI patient is a candidate for AV fistula. He is presently on hemodialysis per port in the right subclavian. He states that he has hypotensive episodes and carries a diagnosis of orthostatic hypotension specially when he stands. During dialysis he has problems with this and has white outs patient is on isosorbide. He has rare sharp left anterior chest pains. He had cardiac catheterization years ago which proved to show only mild disease denies palpitations Assessment/Plan orthostatic hypotension by history. He is wheelchair-bound and it is difficult to get him upright. He has low normal blood pressure I think stopping his isosorbide would be a reasonable thing. If he continues to have problems with syncope with dialysis consider addition of a vasoconstrictive agents such as pro amantadine should be considered. He should have a stress echo if this is negative fistula implant could be performed he should follow-up with nurse practitioner ECG: Sinus tachycardia with Premature supraventricular complexes Nonspecific ST and T wave abnormality Abnormal ECG No problem-specific Assessment & Plan notes found for this encounter. Follow Up Ordered: No follow-ups on file. Patient's Medications New Prescriptions No medications on file Previous Medications ACETAMINOPHEN (TYLENOL) 325 MG TABLET Take 2 (two) tablets (650 mg total) by mouth every 4 (four) hours as needed for pain or fever . ALLOPURINOL (ZYLOPRIM) 100 MG TABLET Take 1 (one) tablet (100 mg total) by mouth every morning . AMINO ACIDS-PROTEIN HYDROLYS 17-100 GRAM-KCAL/30 ML LIQD Take 30 mL by mouth 3 (three) times a day . AMOXICILLIN-CLAVULANATE (AUGMENTIN) 500-125 MG PER TABLET Take 1 (one) tablet by mouth 2 (two) times a day . BISACODYL (DULCOLAX) 10 MG SUPPOSITORY Insert 1 (one) suppository (10 mg total) into the rectum daily as needed for constipation . CALCITRIOL (ROCALTROL) 0.25 MCG CAPSULE Take 1 (one) capsule (0.25 mcg total) by mouth every morning . EPOETIN KACIE (PROCRIT) 2,000 UNIT/ML INJECTION Inject 1 mL (2,000 Units total) under the skin once Every 14 days . FERROUS SULFATE 325 (65 FE) MG TABLET Take 1 (one) tablet (325 mg total) by mouth 3 (three) times aday . HYDROCODONE-ACETAMINOPHEN (NORCO) 5-325 MG PER TABLET Take 1 (one) tablet by mouth every 8 (eight) hours as needed for pain . ISOSORBIDE MONONITRATE (IMDUR) 30 MG 24 HR TABLET Take 1 (one) tablet (30 mg total) by mouth every morning . LEVOFLOXACIN (LEVAQUIN) 250 MG TABLET Take 1 (one) tablet (250 mg total) by mouth every other day . LEVOTHYROXINE (SYNTHROID, LEVOTHROID) 88 MCG TABLET Take 1 (one) tablet (88 mcg total) by mouth every morning Reasons: a condition with low thyroid hormone levels. LIDOCAINE (XYLOCAINE) 2 % JELLY Apply topically as needed Apply to penis topically as needed beforecatheter change. . MAGNESIUM HYDROXIDE 400 MG/5 ML SUSP Take 30 mL (2,400 mg total) by mouth every 4 (four) hours as needed (constipation) . MENTHOL-ZINC OXIDE (CALMOSEPTINE) 0.44-20.6 % OINT Apply topically 2 (two) times a day For excoriation of R buttock . MULTIVITAMIN (THERAGRAN) PER TABLET Take 1 (one) tablet by mouth every morning . NITROFURANTOIN, MACROCRYSTAL-MONOHYDRATE, (MACROBID) 100 MG CAPSULE Take 1 (one) capsule (100 mg total) by mouth 2 (two) times a day . ONDANSETRON (ZOFRAN) 4 MG TABLET Take 1 (one) tablet (4 mg total) by mouth every 12 (twelve) hours as needed for nausea . OXYBUTYNIN (DITROPAN) 5 MG TABLET Take 1 (one) tablet (5 mg total) by mouth 2 (two) times a day . OXYCODONE (ROXICODONE) 5 MG IMMEDIATE RELEASE TABLET Take 1 (one) tablet (5 mg total) by mouth every 6 (six) hours as needed for pain . PHENAZOPYRIDINE (PYRIDIUM) 200 MG TABLET Take 1 (one) tablet (200 mg total) by mouth 3 (three) times a day as needed for pain . POLYETHYLENE GLYCOL (MIRALAX) 17 GRAM POWDER Take 17 (seventeen) g by mouth every morning Reasons: constipation. SENNA-DOCUSATE (SENNA-S) 8.6-50 MG Take 2 (two) tablets by mouth every morning Reasons: constipation. SERTRALINE (ZOLOFT) 50 MG TABLET Take 1 (one) tablet (50 mg total) by mouth every morning . SIMETHICONE (GAS-X EXTRA STRENGTH) 125 MG CHEWABLE TABLET Chew and Swallow 180 mg every 8 (eight) hours as needed for flatulence . SIMVASTATIN (ZOCOR) 20 MG TABLET Take 1 (one) tablet (20 mg total) by mouth nightly . SODIUM CHLORIDE (SALINE NASAL) 0.65 % NASAL SPRAY Instill 1 (one) spray into each nostril as needed(for dryness) . 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 Hyperlipidemia Hypertension Malignant neoplasm of prostate (HCC) Morbid obesity due to excess calories (HCC) CHLOÉ (obstructive sleep apnea) no longer uses cpap Pneumonia UTI (urinary tract infection) Past Surgical History: Procedure Laterality Date CATARACT EXTRACTION, BILATERAL left artificial hip joint Left PORTACATH PLACEMENT 04/2023 TOTAL KNEE ARTHROPLASTY Right Family History Problem Relation Age of Onset Aneurysm Mother Alzheimer's disease Father Prostate cancer Father Throat cancer Father Social History Tobacco Use Smoking status: Former Packs/day: 0.25 Years: 15.00 Additional pack years: 0.00 Total pack years: 3.75 Types: Cigarettes Quit date: 1979 Years since quittin.1 Smokeless tobacco: Never Vaping Use Vaping Use: Never used Substance Use Topics Alcohol use: Never Drug use: Never Allergies Allergen Reactions Bupropion Unknown Ct: Iodinated Contrast- Oral And Iv Dye Nausea and vomiting Meloxicam Unknown Review of Systems Constitutional: Negative. HENT: Negative. Eyes: Negative. Cardiovascular: Negative for palpitations. Respiratory: Negative. Endocrine: Negative. Skin: Negative. Musculoskeletal: Negative. Gastrointestinal: Negative. Genitourinary: Negative. Neurological: Negative. Psychiatric/Behavioral: Negative. All other systems reviewed and are negative. Overview of Problems Addressed: No problems updated. Objective: Vitals: Ht 5' 11 Wt 100.2 kg (221 lb) BMI 30.82 kg/m Physical Exam Constitutional: Appearance: Normal appearance. HENT: Head: Normocephalic and atraumatic. Nose: Nose normal. Eyes: Extraocular Movements: Extraocular movements intact. Pupils: Pupils are equal, round, and reactive to light. Cardiovascular: Rate and Rhythm: Normal rate and regular rhythm. Pulses: Normal pulses. Heart sounds: Normal heart sounds. Pulmonary: Effort: Pulmonary effort is normal. Breath sounds: Normal breath sounds. Abdominal: General: Abdomen is flat. Bowel sounds are normal. Palpations: Abdomen is soft. Musculoskeletal: General: Normal range of motion. Cervical back: Normal range of motion and neck supple. Skin: General: Skin is warm and dry. Neurological: General: No focal deficit present. Mental Status: He is alert and oriented to person, place, and time. Mental status is at baseline. 1. Preop examination Genet Stein MD 07/10/2023 documented in this [id number] Instructions* Patient Instructions* Jeremy Morrissey RN - 07/09/2023 4:54 PM EST Genet, it was a pleasure seeing you in clinic today! Here are some instructions from the cardiology team: STRESS-ECHOCARDIOGRAM You are scheduled to have a treadmill or Dobutamine stress-echocardiogram on at . This is a monitored test with medicine with various levels of increasing the drug.. During and after the test our heart rate, blood pressure, electrocardiogram and clinical symptoms are carefully observed. This data provides information on the status of your heart, blood pressure and EKG pattern. The total time required to complete the test is 45 minutes to one hour. NOTHING TO EAT FOR 2 HOURS PRIOR TO YOUR APPOINTMENT. Sips of water are okay. Specifically, DO NOT drink coffee or carbonated beverages that contain caffeine including drinks labeled decaffeinated for at least 12 hours or more. Drinks containing caffeine can artificially raiseyour heart rate. Tobacco should be avoided 4 hours prior to the procedure. Wear loose fitting clothes and comfortable shoes for exercise. Gym shorts would be appropriate. Medications: There are medications that can interfere with a Stress Echocardiogram. You may be instructed to hold medications. If so, they will be listed here: Please call our team if you are experiencing any increased cardiac awareness including shortness ofbreath, swelling, heart palpitations, feeling faint, dizziness, lightheadedness, fatigue or chest discomfort. Thank you! How to contact your Care Team: Provider: Genet Stein MD Nurse: Jeremy Morrissey RN In case of an emergency please call 911. REFILLS: When in need for refills please call your care team or the office at [phone]. Please include medication name, pharmacy name, and specify 30-day or 90-day supply. Please check with your pharmacy within 24 hours of request for your refill. You must follow up as directed to continue current refills. Thank you documented in this [id number] Evaluation + Plan note* Assessment & Plan Note - Judy Ley MD - 06/27/2023 10:50 AM ESTAssociated Problem(s): Closed fracture of left hip, initial encounter ([facility]) Assessment: Status post 04/02/2023 hemiarthroplasty. The patient states that he is having more soreness in the muscles around the hip since his last visit. His physical therapy has been discontinued. He has had some urinary tract infections for which she is on antibiotics. He points to the buttock and the medial groin area as where he has most of his pain. He started dialysis about 2 days after his hemiarthroplasty surgery. He denies any fever or chills. Assessment: About 10 weeks status post left hip hemiarthroplasty. Given his intermittent urinary infections andattempts at stent placement and suprapubic catheterization it sounds as if he may have been bacteremic. Therefore have some concern over the increase in pain in his hip. He was not running a fever today. He had some tenderness in the abductors with range of motion but he did have a zone of range of motion that was relatively nontender. He has not tried to stand and several days because he no longer has physical therapy and he has generalized weakness from his dialysis and his other underlying medical problems but he states that he does have pain with this. Gentle knee strike did not aggravate himconsiderably. Plan: Follow-up in 1 month for reevaluation with new x-rays. He understands that if his hip pain does not mi in the next week to 10 days that he should contact us. If he develops any fever chills or other signs of infection he should contact us. An aspiration of the hip would be necessary. Screening labs would not be helpful in this case since he has an underlying urinary tract infectionwhich is flared recently. He is presently on antibiotics for this. I asked him to obtain a aspiration of the hip sooner rather than later but he adamantly denied this. He states he will let me know if his hip continues to bother him next week. [facility] Work Phone: 1([phone]) 634-487501-26-2024 Miscellaneous Notes* Assessment & Plan Note - Judy Ley MD - 06/27/2023 10:50 AM ESTAssociated Problem(s): Closed fracture of left hip, initial encounter ([facility]) Assessment: Status post 04/02/2023 hemiarthroplasty. The patient states that he is having more soreness in the muscles around the hip since his last visit. His physical therapy has been discontinued. He has had some urinary tract infections for which she is on antibiotics. He points to the buttock and the medial groin area as where he has most of his pain. He started dialysis about 2 days after his hemiarthroplasty surgery. He denies any fever or chills. Assessment: About 10 weeks status post left hip hemiarthroplasty. Given his intermittent urinary infections andattempts at stent placement and suprapubic catheterization it sounds as if he may have been bacteremic. Therefore have some concern over the increase in pain in his hip. He was not running a fever today. He had some tenderness in the abductors with range of motion but he did have a zone of range of motion that was relatively nontender. He has not tried to stand and several days because he no longer has physical therapy and he has generalized weakness from his dialysis and his other underlying medical problems but he states that he does have pain with this. Gentle knee strike did not aggravate himconsiderably. Plan: Follow-up in 1 month for reevaluation with new x-rays. He understands that if his hip pain does not mi in the next week to 10 days that he should contact us. If he develops any fever chills or other signs of infection he should contact us. An aspiration of the hip would be necessary. Screening labs would not be helpful in this case since he has an underlying urinary tract infectionwhich is flared recently. He is presently on antibiotics for this. I asked him to obtain a aspiration of the hip sooner rather than later but he adamantly denied this. He states he will let me know if his hip continues to bother him next week. [facility] Work Phone: 1([phone]) 366-159301-26-2024 History of Present illness Narrative* Judy Ley MD - 06/27/2023 9:00 AM EST Assessment/Plan Encounter Diagnoses: Closed fracture of left hip, initial encounter ([facility]) Closed fracture of left hip, initial encounter ([facility]) Assessment: Status post 04/02/2023 hemiarthroplasty. The patient states that he is having more soreness in the muscles around the hip since his last visit. His physical therapy has been discontinued. He has had some urinary tract infections for which she is on antibiotics. He points to the buttock and the medial groin area as where he has most of his pain. He started dialysis about 2 days after his hemiarthroplasty surgery. He denies any fever or chills. Assessment: About 10 weeks status post left hip hemiarthroplasty. Given his intermittent urinary infections andattempts at stent placement and suprapubic catheterization it sounds as if he may have been bacteremic. Therefore have some concern over the increase in pain in his hip. He was not running a fever today. He had some tenderness in the abductors with range of motion but he did have a zone of range of motion that was relatively nontender. He has not tried to stand and several days because he no longer has physical therapy and he has generalized weakness from his dialysis and his other underlying medical problems but he states that he does have pain with this. Gentle knee strike did not aggravate himconsiderably. Plan: Follow-up in 1 month for reevaluation with new x-rays. He understands that if his hip pain does not mi in the next week to 10 days that he should contact us. If he develops any fever chills or other signs of infection he should contact us. An aspiration of the hip would be necessary. Screening labs would not be helpful in this case since he has an underlying urinary tract infectionwhich is flared recently. He is presently on antibiotics for this. I asked him to obtain a aspiration of the hip sooner rather than later but he adamantly denied this. He states he will let me know if his hip continues to bother him next week. Subjective Patient ID: Genet Booth is a 78 y.o. male. Chief Complaint: Post-op and Pain of the Left Hip ( Patient had a HEMIARTHROPLASTY HIP PARTIAL on 04/02/2023, Patient states that he does not think his muscles and tendons are healing, he can only bear weight very little. He is no longer getting any therapy services. / /) 06/28/23- About 10 weeks status post left hemiarthroplasty. His physical therapy has been discontinued. He ishaving more pain in his hip since his last visit. He attributes this to the lack of physical therapy. He points to the medial adductor's and to his buttock is where he is having his pain. He has had some urinary tract infection with manipulation of his urinary tract for surgical interventions recently. They were unable to put in stents. He is on suppressive antibiotics for his UTIs. He understands that I am concerned that he may have seeded his hip joint. If his pain does not resolve quickly with rest he would need an aspiration of the joint. I recommended this but he adamantly states he willnot receive this until the middle of next week. Last Surgery: Hip Hemiarthroplasty - Left Last Surgery Date: 04/02/2023 HPI 78-year-old who is 7 weeks status post left hip hemiarthroplasty. His rehab is limited by his cardiac condition. He states he is having trouble standing without getting tachycardia and lightheaded. He does state that his hip is the least of his troubles and he is having minimal pain associated withit. He states his incision is doing well although the ema are still in place. OBJECTIVE: ORTHO EXAM Left hip: He is essentially nonweightbearing because of his cardiac issues. Skin healthy and intact No tenderness to palpation over lumbar spine No tenderness over greater trochanter No tenderness referable to groin especially with IR He was nontender to palpation over the surgical site. The ema are in place. These will be removed within 24 hours. Full forward flexion Symmetric motion, no loss of internal rotation No weakness with resisted hip flexion, abduction or adduction Negative flexion/adduction/internal rotation Negative flexion/abduction/external rotation test Negative straight leg raise Neurovascular exam normal distally His calves were nontender bilaterally. IMAGE RESULTS: FL pyelogram retrograde These images are not reportable by radiology and will not be interpreted by Radiologists. ULTRASOUND None Procedures Orders Placed This Encounter XR hip left with pelvis when performed 2 or 3 views Point of Care Ultrasound Point of Care Ultrasound [facility] Work Phone: 1([phone]) 815-995901-23-2024 Note* Op Note - John Bah MD - 06/24/2023 12:26 PM EST Cystoscopy with bilateral RPG bilateral ureteroscopy and bilateral Insertion Stent Ureter (B), Cysto with attempted SP tube placement Operative Note Date: 06/24/2023 OR Location: [facility] OR Name: Genet Booth : 1945, Age: 78 y.o., , Sex: male Diagnosis Pre-op Diagnosis * Other hydronephrosis [N13.39] * Urinary retention [R33.9] Post-op Diagnosis * Other hydronephrosis [N13.39] * Urinary retention [R33.9] Procedures Cystoscopy with bilateral RPG bilateral ureteroscopy and bilateral Insertion Stent Ureter 93247 - [place] CYSTO W/INSERT URETERAL STENT Cysto with attempted SP tube placement [id number] - [place] CYSTOSTOMY CYSTOTOMY W/DRAINAGE Surgeons * John Bah - Primary Resident/Fellow/Other Rn Oncology Clinical: Surgeon(s) and Role: Procedure Summary Anesthesia: General ASA: ASA status not filed in the log. Anesthesia Staff: Anesthesiologist: Calvin Banda DO Estimated Blood Loss: 0mL Intra-op Medications: Medication Name Total Dose sodium chloride 0.9% infusion 23.33 mL acetaminophen (Tylenol) tablet 975 mg 975 mg dexAMETHasone (PF) (Decadron) injection 6 mg 6 mg famotidine PF (Pepcid) injection 20 mg 20 mg ondansetron (Zofran) injection 4 mg 4 mg Anesthesia Record Intraprocedure I/O Totals None Specimen: No specimens collected Staff: Technical Support Representative: Heather Romo RN; Sonny Ray RN Relief Scrub: Desire Tovar RN Scrub Person: Gil Sosa RN X-Ray Technologist: Melvina Sal Drains and/or Catheters: Urethral Catheter Latex 16 Fr. (Active) Tourniquet Times: Implants: Implants Type Name Action Serial No. Shunt STENT, POLARIS ULTRA 5FR 24CM, DISPOSABLE - [id number] Implanted Indications: Genet Booth is an 78 y.o. male who is having surgery for Other hydronephrosis [N13.39] Urinary retention [R33.9]. The patient was seen in the preoperative area. The risks, benefits, complications, treatment options, non-operative alternatives, expected recovery and outcomes were discussed with the patient. The possibilities of reaction to medication, pulmonary aspiration, injury to surrounding structures, bleeding, recurrent infection, the need for additional procedures, failure to diagnose a condition, and creating a complication requiring transfusion or operation were discussed with the patient. The patient concurred with the proposed plan, giving informed consent. The site of surgery was properly noted/marked if necessary per policy. The patient has been actively warmed in preoperative area. Preoperative diagnosis: hydronephrosis Postoperative diagnosis: Same Procedure: cystoscopy with Right RPG and ureteroscopy and Right stent change, Attempted Left stent placement and Attempted SP tube placement Physician: OLVIN Anesthesia: Gen. Estimated blood loss: None Indications and consent: The patient presents with known hydronephrosis and suprapubic tube placement. After the risks, benefits, alternatives, and indications of the procedure were explained to the patient they consented. Procedure: The patient was brought to the operating room and placed on the table in the supine position. After adequate anesthesia was obtained, the patient was prepped and draped in the standard surgical fashion. First, the cystoscope was inserted into the bladder. Formal cystoscopy was performed.The bladder had a very small capacity. I was unable to identify the left ureteral orifice. The previously placed stent was seen and grasped and brought out. A guidewire was placed up the existing stent into the renal pelvis using X-Ray guidance. The stent was then removed. We then performed ureteroscopy with retrograde pyelogram. This did not show any evidence of mass or stone in the ureter. The r etrograde pyelogram did show persistent hydronephrosis. At this point a new stent was placed over the existing guidewire. This was done under fluoroscopic vision. Proper positioning was confirmed.Thepatient tolerated the procedure well and there no complications. I attempted to place a SP tube butwas unable to do so using the Lowsley retractor therefore the procedure was terminated. The patient is currently on HD. If Dr De León thinks decompression of the left kidney is worth a try then interventional radiology can be consulted for attempted antegrade stent placement The patient tolerated the procedure well and there were no complications. Attending Attestation: I was present and scrubbed for the entire procedure. John Bah [facility] Work Phone: 1([phone]) 487-532901-23-2024 Miscellaneous Notes* Op Note - John Bah MD - 06/24/2023 12:26 PM EST Cystoscopy with bilateral RPG bilateral ureteroscopy and bilateral Insertion Stent Ureter (B), Cysto with attempted SP tube placement Operative Note Date: 06/24/2023 OR Location: [facility] OR Name: Genet Booth, : 1945, Age: 78 y.o., , Sex: male Diagnosis Pre-op Diagnosis * Other hydronephrosis [N13.39] * Urinary retention [R33.9] Post-op Diagnosis * Other hydronephrosis [N13.39] * Urinary retention [R33.9] Procedures Cystoscopy with bilateral RPG bilateral ureteroscopy and bilateral Insertion Stent Ureter 34089 - [place] CYSTO W/INSERT URETERAL STENT Cysto with attempted SP tube placement [id number] - [place] CYSTOSTOMY CYSTOTOMY W/DRAINAGE Surgeons * John Bah - Primary Resident/Fellow/Other Rn Oncology Clinical: Surgeon(s) and Role: Procedure Summary Anesthesia: General ASA: ASA status not filed in the log. Anesthesia Staff: Anesthesiologist: Calvin Banda DO Estimated Blood Loss: 0mL Intra-op Medications: Medication Name Total Dose sodium chloride 0.9% infusion 23.33 mL acetaminophen (Tylenol) tablet 975 mg 975 mg dexAMETHasone (PF) (Decadron) injection 6 mg 6 mg famotidine PF (Pepcid) injection 20 mg 20 mg ondansetron (Zofran) injection 4 mg 4 mg Anesthesia Record Intraprocedure I/O Totals None Specimen: No specimens collected Staff: Technical Support Representative: Heather Romo RN; Sonny Ray RN Relief Scrub: Desire Tovar RN Scrub Person: Gil Sosa RN X-Ray Technologist: Melvina Sal Drains and/or Catheters: Urethral Catheter Latex 16 Fr. (Active) Tourniquet Times: Implants: Implants Type Name Action Serial No. Shunt STENT, POLARIS ULTRA 5FR 24CM, DISPOSABLE - [id number] Implanted Indications: Genet Booth is an 78 y.o. male who is having surgery for Other hydronephrosis [N13.39] Urinary retention [R33.9]. The patient was seen in the preoperative area. The risks, benefits, complications, treatment options, non-operative alternatives, expected recovery and outcomes were discussed with the patient. The possibilities of reaction to medication, pulmonary aspiration, injury to surrounding structures, bleeding, recurrent infection, the need for additional procedures, failure to diagnose a condition, and creating a complication requiring transfusion or operation were discussed with the patient. The patient concurred with the proposed plan, giving informed consent. The site of surgery was properly noted/marked if necessary per policy. The patient has been actively warmed in preoperative area. Preoperative diagnosis: hydronephrosis Postoperative diagnosis: Same Procedure: cystoscopy with Right RPG and ureteroscopy and Right stent change, Attempted Left stent placement and Attempted SP tube placement Physician: OLVIN Anesthesia: Gen. Estimated blood loss: None Indications and consent: The patient presents with known hydronephrosis and suprapubic tube placement. After the risks, benefits, alternatives, and indications of the procedure were explained to the patient they consented. Procedure: The patient was brought to the operating room and placed on the table in the supine position. After adequate anesthesia was obtained, the patient was prepped and draped in the standard surgical fashion. First, the cystoscope was inserted into the bladder. Formal cystoscopy was performed.The bladder had a very small capacity. I was unable to identify the left ureteral orifice. The previously placed stent was seen and grasped and brought out. A guidewire was placed up the existing stent into the renal pelvis using X-Ray guidance. The stent was then removed. We then performed ureteroscopy with retrograde pyelogram. This did not show any evidence of mass or stone in the ureter. The r etrograde pyelogram did show persistent hydronephrosis. At this point a new stent was placed over the existing guidewire. This was done under fluoroscopic vision. Proper positioning was confirmed.Thepatient tolerated the procedure well and there no complications. I attempted to place a SP tube butwas unable to do so using the Lowsley retractor therefore the procedure was terminated. The patient is currently on HD. If Dr De León thinks decompression of the left kidney is worth a try then interventional radiology can be consulted for attempted antegrade stent placement The patient tolerated the procedure well and there were no complications. Attending Attestation: I was present and scrubbed for the entire procedure. John Bah documented in this [facility] Work Phone: 1([phone]) 626-819601-23-2024 History and physical note* John Bah MD - 06/24/2023 10:36 AM EST History Of Present Illness Genet Booth is a 78 y.o. male presenting with urinary retention bilateral hydro. 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 His smoking use included cigarettes. He has never used smokeless tobacco. He reports that he does not currently use alcohol. He reports that he does not use drugs. Family History Family History Problem Relation Name Age of Onset Heart failure Mother Alzheimer's disease Father Allergies Bupropion, Meloxicam, Ciprofloxacin, and Iodine Review of Systems Constitutional: Negative for chills and fever. HENT: Negative. Eyes: Negative. Respiratory: Negative for cough and shortness of breath. Cardiovascular: Negative for chest pain and leg swelling. Gastrointestinal: Negative for nausea. Endocrine: Negative. Genitourinary: Negative for difficulty urinating. Negative except for documented in HPI Allergic/Immunologic: Negative. Neurological: Alert & oriented X 3 Hematological: Denies blood thinners Psychiatric/Behavioral: Negative. Physical Exam Vitals and nursing note reviewed. Pulmonary: Effort: Pulmonary effort is normal. Breath sounds: Normal breath sounds. Abdominal: Palpations: Abdomen is soft. Tenderness: There is no abdominal tenderness. Genitourinary: Comments: Kidneys non palpable bilaterally Bladder non palpable or tender Neurological: Mental Status: He is alert. Last Recorded Vitals There were no vitals taken for this visit. Assessment/Plan Principal Problem: Urinary retention Active Problems: Hydronephrosis John Bah MD [facility] Work Phone: 1([phone]) 293-729601-23-2024 History and physical note* John Bah MD - 06/24/2023 10:36 AM EST History Of Present Illness Genet Booth is a 78 y.o. male presenting with urinary retention bilateral hydro. 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 His smoking use included cigarettes. He has never used smokeless tobacco. He reports that he does not currently use alcohol. He reports that he does not use drugs. Family History Family History Problem Relation Name Age of Onset Heart failure Mother Alzheimer's disease Father Allergies Bupropion, Meloxicam, Ciprofloxacin, and Iodine Review of Systems Constitutional: Negative for chills and fever. HENT: Negative. Eyes: Negative. Respiratory: Negative for cough and shortness of breath. Cardiovascular: Negative for chest pain and leg swelling. Gastrointestinal: Negative for nausea. Endocrine: Negative. Genitourinary: Negative for difficulty urinating. Negative except for documented in HPI Allergic/Immunologic: Negative. Neurological: Alert & oriented X 3 Hematological: Denies blood thinners Psychiatric/Behavioral: Negative. Physical Exam Vitals and nursing note reviewed. Pulmonary: Effort: Pulmonary effort is normal. Breath sounds: Normal breath sounds. Abdominal: Palpations: Abdomen is soft. Tenderness: There is no abdominal tenderness. Genitourinary: Comments: Kidneys non palpable bilaterally Bladder non palpable or tender Neurological: Mental Status: He is alert. Last Recorded Vitals There were no vitals taken for this visit. Assessment/Plan Principal Problem: Urinary retention Active Problems: Hydronephrosis John Bah MD documented in this [facility] Work Phone: 1(184) 358-588201-22-2024 History of Present illness Narrative* Cali Jacob MD - 06/23/2023 8:53 AM EST Vascular Surgery Outpatient/Pre-Op H&P Heart & Vascular [facility] 06/23/2023 Cali Jacob MD Vascular & Endovascular Surgery [address] [place] [address] Medical Office [facility] [id number] Patient: Genet Booth Date of : 1945 (78 y.o.) Referring Provider: Nan De León CNP PCP: Ata Hernandez, Assessment & Plan Genet Booth is a 78 y.o. male with history of hypertension, hyperlipidemia, obesity, obstructive sleep apnea, prostate cancer, urinary retention with a Jamison catheter in place, chronic left knee andhip pain, end-stage renal disease who will be scheduled for left upper extremity AV fistula creation. Patient has reactions to NSAIDs. Was started on statin therapy. No problem-specific Assessment & Plan notes found for this encounter. Follow-up: Plan for left upper extremity AV fistula creation Chief Complaint: Permanent hemodialysis access creation evaluation Subjective History of Present Illness: Genet Booth is a 78 y.o. male with history of hypertension, hyperlipidemia, obesity, obstructive sleep apnea, prostate cancer, urinary retention with a Jamison catheter in place, chronic left knee andhip pain, end-stage renal disease who comes in for evaluation of permanent hemodialysis access creation. Patient is currently on hemodialysis via right tunneled IJ catheter. He has been on dialysis since April. Patient denies any prior history of AV fistula or AV grafts. Patient is right-hand dominant. Bilateral upper extremities are warm, well-perfused with easily palpable radial pulses. Patient denies any recent chest pain or palpitations. He denies any difficulty breathing but does have mo derate dyspnea on exertion. He denies any prior history of CVA or TIA, denies any recent focal neurological deficits, denies speech or visual disturbances. Patient denies any significant lower extremity intermittent claudication, rest pain or poorly healing wounds. Patient utilizes a wheelchair formobility. No fever or chills. Objective Venous mapping of upper extremities for hemodialysis creation images were personally reviewed by [email or web address] show an adequately sized right arm and forearm cephalic veins, bilateral basilic veins and brachial arteries for primary AV fistula creation Review of Systems: Constitution: Negative for decreased appetite and weight loss. Positive for generalized malaise/weakness; Negative for fever/chills. HENT: Negative for hearing loss, hoarse voice and nosebleeds. Eyes: Negative for blurred vision, double vision, vision loss in left eye and vision loss in right eye. Cardiovascular: Negative for chest pain, leg pain and orthopnea. Positive for mild bilateral lower extremity edema Respiratory: Negative for hemoptysis and shortness of breath. Endocrine: Negative for cold intolerance, heat intolerance, polyphagia and polyuria. Hematologic/Lymphatic: Does bruise/bleed easily. Skin: Negative for color change, itching and nail changes. Musculoskeletal: Positive for arthritis and joint pain. Positive for left knee, hip and back pain. Gastrointestinal: Negative for abdominal pain, hematochezia and melena. Genitourinary: Positive for dysuria and urinary retention requiring Jamison catheter. Neurological: Negative for brief paralysis, focal weakness, loss of balance and seizures. Psychiatric/Behavioral: Negative for altered mental status, hallucinations and memory loss. 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 Social History Tobacco Use Smoking Status Not on file Smokeless Tobacco Not on file Allergies: Patient has no allergy information on record. HOME Medications: Current Outpatient Medications on File Prior to Visit Medication Sig acetaminophen (TYLENOL) 325 MG tablet Take 2 (two) tablets (650 mg total) by mouth every 4 (four) hours as needed for pain or fever . allopurinoL (ZYLOPRIM) 100 MG tablet Take 1 (one) tablet (100 mg total) by mouth daily . amino acids-protein hydrolys 17-100 gram-kcal/30 mL Liqd Take 30 mL by mouth 3 (three) times a day . bisacodyL (DULCOLAX) 10 mg suppository Insert 1 (one) suppository (10 mg total) into the rectum daily as needed for constipation . calcitrioL (ROCALTROL) 0.25 MCG capsule Take 1 (one) capsule (0.25 mcg total) by mouth daily . epoetin kacie (PROCRIT) 2,000 unit/mL injection Inject 1 mL (2,000 Units total) under the skin once Every 14 days . ferrous sulfate 325 (65 FE) MG tablet Take 1 (one) tablet (325 mg total) by mouth 3 (three) times aday . isosorbide mononitrate (IMDUR) 30 MG 24 hr tablet Take 1 (one) tablet (30 mg total) by mouth daily . levoFLOXacin (LEVAQUIN) 250 MG tablet Take 1 (one) tablet (250 mg total) by mouth every other day . levothyroxine (SYNTHROID, LEVOTHROID) 88 MCG tablet Take 1 (one) tablet (88 mcg total) by mouth once daily Reasons: a condition with low thyroid hormone levels. lidocaine (XYLOCAINE) 2 % jelly Apply topically as needed Apply to penis topically as needed beforecatheter change. . magnesium hydroxide 400 mg/5 mL Susp Take 30 mL (2,400 mg total) by mouth every 4 (four) hours as needed (constipation) . menthol-zinc oxide (Calmoseptine) 0.44-20.6 % Oint Apply topically 2 (two) times a day For excoriation of R buttock . multivitamin (THERAGRAN) per tablet Take 1 (one) tablet by mouth daily . ondansetron (ZOFRAN) 4 MG tablet Take 1 (one) tablet (4 mg total) by mouth every 12 (twelve) hours as needed for nausea . oxyBUTYnin (DITROPAN) 5 MG tablet Take 1 (one) tablet (5 mg total) by mouth 2 (two) times a day . oxyCODONE (ROXICODONE) 5 MG immediate release tablet Take 1 (one) tablet (5 mg total) by mouth every 6 (six) hours as needed for pain . polyethylene glycol (MIRALAX) 17 gram powder Take 17 (seventeen) g by mouth daily Reasons: constipation. senna-docusate (SENNA-S) 8.6-50 mg Take 2 (two) tablets by mouth daily Reasons: constipation. sertraline (ZOLOFT) 50 MG tablet Take 1 (one) tablet (50 mg total) by mouth daily . simethicone (GAS-X Extra Strength) 125 MG chewable tablet Chew and Swallow 180 mg every 8 (eight) hours as needed for flatulence . No current facility-administered medications on file prior to visit. Vital Signs: Ht 5' 11 Wt 99.8 kg (220 lb) BMI 30.68 kg/m Physical Exam Constitutional: General: He is not in acute distress. Appearance: He is obese. He is not ill-appearing, toxic-appearing or diaphoretic. Comments: Frail elderly male in a wheelchair HENT: Head: Normocephalic and atraumatic. Nose: Nose normal. No congestion. Mouth/Throat: Pharynx: Oropharynx is clear. Eyes: General: No scleral icterus. Extraocular Movements: Extraocular movements intact. Conjunctiva/sclera: Conjunctivae normal. Pupils: Pupils are equal, round, and reactive to light. Neck: Vascular: No carotid bruit. Cardiovascular: Rate and Rhythm: Normal rate. Comments: All 4 extremities are warm and adequately perfused. Bilateral lower extremity edema. Bilateral radial pulses easily palpable. Abdominal: General: Abdomen is flat. There is no distension. Palpations: Abdomen is soft. Tenderness: There is no abdominal tenderness. There is no guarding. Genitourinary: Comments: Jamison catheter in place Musculoskeletal: General: Tenderness (Left knee and hip) present. Cervical back: Neck supple. No tenderness. Right lower leg: Edema present. Left lower leg: Edema present. Comments: Decubitus ulcer over sacrum Lymphadenopathy: Cervical: No cervical adenopathy. Skin: General: Skin is warm. Capillary Refill: Capillary refill takes less than 2 seconds. Coloration: Skin is not jaundiced. Findings: No bruising or lesion. Neurological: General: No focal deficit present. Mental Status: He is alert and oriented to person, place, and time. Mental status is at baseline. Cranial Nerves: No cranial nerve deficit. Motor: No weakness. Gait: Gait normal. Psychiatric: Mood and Affect: Mood normal. Behavior: Behavior normal. Thought Content: Thought content normal. Judgment: Judgment normal. No results found for: CHOL, LDLCALC, LDLDIRECT, TRIG, HDL documented in this [id number] History of Present illness Narrative* Cali Jacob MD - 06/23/2023 8:53 AM EST Vascular Surgery Outpatient/Pre-Op H&P Heart & Vascular [facility] 06/23/2023 Cali Jacob MD Vascular & Endovascular Surgery [address] [place] [address] Medical Office [facility] [id number] Patient: Genet Booth Date of : 1945 (78 y.o.) Referring Provider: Nan De León CNP PCP: Ata Hernandez, DO Assessment & Plan Genet Booth is a 78 y.o. male with history of hypertension, hyperlipidemia, obesity, obstructive sleep apnea, prostate cancer, urinary retention with a Jamison catheter in place, chronic left knee andhip pain, end-stage renal disease who will be scheduled for right upper extremity AV fistula creation. Patient has reactions to NSAIDs. Was started on statin therapy. No problem-specific Assessment & Plan notes found for this encounter. Follow-up: Plan for right upper extremity AV fistula creation Chief Complaint: Permanent hemodialysis access creation evaluation Subjective History of Present Illness: Genet Booth is a 78 y.o. male with history of hypertension, hyperlipidemia, obesity, obstructive sleep apnea, prostate cancer, urinary retention with a Jamison catheter in place, chronic left knee andhip pain, end-stage renal disease who comes in for evaluation of permanent hemodialysis access creation. Patient is currently on hemodialysis via right tunneled IJ catheter. He has been on dialysis since April. Patient denies any prior history of AV fistula or AV grafts. Patient is right-hand dominant. Bilateral upper extremities are warm, well-perfused with easily palpable radial pulses. Patient denies any recent chest pain or palpitations. He denies any difficulty breathing but does have mo derate dyspnea on exertion. He denies any prior history of CVA or TIA, denies any recent focal neurological deficits, denies speech or visual disturbances. Patient denies any significant lower extremity intermittent claudication, rest pain or poorly healing wounds. Patient utilizes a wheelchair formobility. No fever or chills. Objective Venous mapping of upper extremities for hemodialysis creation images were personally reviewed by [email or web address] show an adequately sized right arm and forearm cephalic veins, bilateral basilic veins and brachial arteries for primary AV fistula creation Review of Systems: Constitution: Negative for decreased appetite and weight loss. Positive for generalized malaise/weakness; Negative for fever/chills. HENT: Negative for hearing loss, hoarse voice and nosebleeds. Eyes: Negative for blurred vision, double vision, vision loss in left eye and vision loss in right eye. Cardiovascular: Negative for chest pain, leg pain and orthopnea. Positive for mild bilateral lower extremity edema Respiratory: Negative for hemoptysis and shortness of breath. Endocrine: Negative for cold intolerance, heat intolerance, polyphagia and polyuria. Hematologic/Lymphatic: Does bruise/bleed easily. Skin: Negative for color change, itching and nail changes. Musculoskeletal: Positive for arthritis and joint pain. Positive for left knee, hip and back pain. Gastrointestinal: Negative for abdominal pain, hematochezia and melena. Genitourinary: Positive for dysuria and urinary retention requiring Jamison catheter. Neurological: Negative for brief paralysis, focal weakness, loss of balance and seizures. Psychiatric/Behavioral: Negative for altered mental status, hallucinations and memory loss. 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 Social History Tobacco Use Smoking Status Not on file Smokeless Tobacco Not on file Allergies: Patient has no allergy information on record. HOME Medications: Current Outpatient Medications on File Prior to Visit Medication Sig acetaminophen (TYLENOL) 325 MG tablet Take 2 (two) tablets (650 mg total) by mouth every 4 (four) hours as needed for pain or fever . allopurinoL (ZYLOPRIM) 100 MG tablet Take 1 (one) tablet (100 mg total) by mouth daily . amino acids-protein hydrolys 17-100 gram-kcal/30 mL Liqd Take 30 mL by mouth 3 (three) times a day . bisacodyL (DULCOLAX) 10 mg suppository Insert 1 (one) suppository (10 mg total) into the rectum daily as needed for constipation . calcitrioL (ROCALTROL) 0.25 MCG capsule Take 1 (one) capsule (0.25 mcg total) by mouth daily . epoetin kacie (PROCRIT) 2,000 unit/mL injection Inject 1 mL (2,000 Units total) under the skin once Every 14 days . ferrous sulfate 325 (65 FE) MG tablet Take 1 (one) tablet (325 mg total) by mouth 3 (three) times aday . isosorbide mononitrate (IMDUR) 30 MG 24 hr tablet Take 1 (one) tablet (30 mg total) by mouth daily . levoFLOXacin (LEVAQUIN) 250 MG tablet Take 1 (one) tablet (250 mg total) by mouth every other day . levothyroxine (SYNTHROID, LEVOTHROID) 88 MCG tablet Take 1 (one) tablet (88 mcg total) by mouth once daily Reasons: a condition with low thyroid hormone levels. lidocaine (XYLOCAINE) 2 % jelly Apply topically as needed Apply to penis topically as needed beforecatheter change. . magnesium hydroxide 400 mg/5 mL Susp Take 30 mL (2,400 mg total) by mouth every 4 (four) hours as needed (constipation) . menthol-zinc oxide (Calmoseptine) 0.44-20.6 % Oint Apply topically 2 (two) times a day For excoriation of R buttock . multivitamin (THERAGRAN) per tablet Take 1 (one) tablet by mouth daily . ondansetron (ZOFRAN) 4 MG tablet Take 1 (one) tablet (4 mg total) by mouth every 12 (twelve) hours as needed for nausea . oxyBUTYnin (DITROPAN) 5 MG tablet Take 1 (one) tablet (5 mg total) by mouth 2 (two) times a day . oxyCODONE (ROXICODONE) 5 MG immediate release tablet Take 1 (one) tablet (5 mg total) by mouth every 6 (six) hours as needed for pain . polyethylene glycol (MIRALAX) 17 gram powder Take 17 (seventeen) g by mouth daily Reasons: constipation. senna-docusate (SENNA-S) 8.6-50 mg Take 2 (two) tablets by mouth daily Reasons: constipation. sertraline (ZOLOFT) 50 MG tablet Take 1 (one) tablet (50 mg total) by mouth daily . simethicone (GAS-X Extra Strength) 125 MG chewable tablet Chew and Swallow 180 mg every 8 (eight) hours as needed for flatulence . No current facility-administered medications on file prior to visit. Vital Signs: Ht 5' 11 Wt 99.8 kg (220 lb) BMI 30.68 kg/m Physical Exam Constitutional: General: He is not in acute distress. Appearance: He is obese. He is not ill-appearing, toxic-appearing or diaphoretic. Comments: Frail elderly male in a wheelchair HENT: Head: Normocephalic and atraumatic. Nose: Nose normal. No congestion. Mouth/Throat: Pharynx: Oropharynx is clear. Eyes: General: No scleral icterus. Extraocular Movements: Extraocular movements intact. Conjunctiva/sclera: Conjunctivae normal. Pupils: Pupils are equal, round, and reactive to light. Neck: Vascular: No carotid bruit. Cardiovascular: Rate and Rhythm: Normal rate. Comments: All 4 extremities are warm and adequately perfused. Bilateral lower extremity edema. Bilateral radial pulses easily palpable. Abdominal: General: Abdomen is flat. There is no distension. Palpations: Abdomen is soft. Tenderness: There is no abdominal tenderness. There is no guarding. Genitourinary: Comments: Jamison catheter in place Musculoskeletal: General: Tenderness (Left knee and hip) present. Cervical back: Neck supple. No tenderness. Right lower leg: Edema present. Left lower leg: Edema present. Comments: Decubitus ulcer over sacrum Lymphadenopathy: Cervical: No cervical adenopathy. Skin: General: Skin is warm. Capillary Refill: Capillary refill takes less than 2 seconds. Coloration: Skin is not jaundiced. Findings: No bruising or lesion. Neurological: General: No focal deficit present. Mental Status: He is alert and oriented to person, place, and time. Mental status is at baseline. Cranial Nerves: No cranial nerve deficit. Motor: No weakness. Gait: Gait normal. Psychiatric: Mood and Affect: Mood normal. Behavior: Behavior normal. Thought Content: Thought content normal. Judgment: Judgment normal. No results found for: CHOL, LDLCALC, LDLDIRECT, TRIG, HDL documented in this [id number] Instructions* Patient Instructions* Tari Nascimento MA - 06/23/2023 8:40 AM EST How to contact your Care Team: Provider: MD Griselda Seymour CNP Jill Bender, PA Nurse: Patricia Carrillo RN To reschedule office appointments call Scheduling [phone] In case of an emergency please call 911. When in need of refills please call the phone number listed above. Please include medication name, pharmacy name and specify 30 or 90 day supply Please check with your pharmacy within 24 hours of your request for refill. You must follow up as directed to continue current refills. Thank you! documented in this [id number] Instructions* Patient Instructions* Tari Nascimento MA - 06/23/2023 8:40 AM EST How to contact your Care Team: Provider: MD Griselda Seymour CNP Jill Bender, PA Nurse: Patricia Carrillo RN To reschedule office appointments call Scheduling [phone] In case of an emergency please call 911. When in need of refills please call the phone number listed above. Please include medication name, pharmacy name and specify 30 or 90 day supply Please check with your pharmacy within 24 hours of your request for refill. You must follow up as directed to continue current refills. Thank you! documented in this [id number] Emergency department Note* Gil Botello MD - 06/12/2023 2:12 AM EST The patient is a 78-year-old male who gets dialysis and is scheduled for later on this morning presents for evaluation for a low-grade fever. Patient feels chills. He reports a history of orthostatichypotension. Recent left total hip replacement in April and that is why he is in the residential. Review of Systems Physical Exam Vitals and nursing note reviewed. Constitutional: General: He is not in acute distress. Appearance: He is well-developed. HENT: Head: Normocephalic and atraumatic. Eyes: Conjunctiva/sclera: Conjunctivae normal. Cardiovascular: Rate and Rhythm: Normal rate and regular rhythm. Heart sounds: No murmur heard. Comments: Dialysis port right chest wall Pulmonary: Effort: Pulmonary effort is normal. No respiratory distress. Breath sounds: Normal breath sounds. Abdominal: Palpations: Abdomen is soft. Tenderness: There is no abdominal tenderness. Musculoskeletal: General: No swelling. Cervical back: Neck supple. Skin: General: Skin is warm and dry. Capillary Refill: Capillary refill takes less than 2 seconds. Neurological: Mental Status: He is alert. Psychiatric: Mood and Affect: Mood normal. Labs Reviewed CBC WITH AUTO DIFFERENTIAL - Abnormal Result Value WBC 11.4 (*) nRBC 0.0 RBC 3.34 (*) Hemoglobin 10.0 (*) Hematocrit 31.8 (*) MCV 95 MCH 29.9 MCHC 31.4 (*) RDW 16.7 (*) Platelets 266 Neutrophils % 79.5 Immature Granulocytes %, Automated 0.5 Lymphocytes % 10.5 Monocytes % 8.7 Eosinophils % 0.4 Basophils % 0.4 Neutrophils Absolute 9.05 (*) Immature Granulocytes Absolute, Automated 0.06 Lymphocytes Absolute 1.19 Monocytes Absolute 0.99 (*) Eosinophils Absolute 0.04 Basophils Absolute 0.05 BASIC METABOLIC PANEL - Abnormal Glucose 106 (*) Sodium 132 (*) Potassium 4.3 Chloride 89 (*) Bicarbonate 29 Anion Gap 18 Urea Nitrogen 63 (*) Creatinine 5.95 (*) eGFR 9 (*) Calcium 9.7 URINALYSIS WITH REFLEX CULTURE AND MICROSCOPIC - Abnormal Color, Urine Yellow Appearance, Urine Hazy (*) Specific [place], Urine 1.012 pH, Urine 7.0 Protein, Urine >=500 (3+) (*) Glucose, Urine NEGATIVE Blood, Urine SMALL (1+) (*) Ketones, Urine NEGATIVE Bilirubin, Urine NEGATIVE Urobilinogen, Urine <2.0 Nitrite, Urine NEGATIVE Leukocyte Esterase, Urine LARGE (3+) (*) MICROSCOPIC ONLY, URINE - Abnormal WBC, Urine >50 (*) WBC Clumps, Urine MANY RBC, Urine >20 (*) Bacteria, Urine 1+ (*) Budding Yeast, Urine PRESENT (*) SARS-COV-2 PCR, SCREEN ASYMPTOMATIC - Normal Coronavirus 2019, PCR Not Detected Narrative: This assay has received FDA Emergency Use Authorization (EUA) and is only authorized for the duration of time that circumstances exist to justify the authorization of the emergency use of in vitro diagnostic tests for the detection of SARS-CoV-2 virus and/or diagnosis of COVID-19 infection under sec tion 564(b)(1) of the Act, 21 U.S.C. 360bbb-3(b)(1). This assay is an in vitro diagnostic nucleic acid amplification test for the qualitative detection of SARS-CoV-2 from nasopharyngeal specimens andhas been validated for use at [facility]. Negative results do not preclude COVID-19 infections and should not be used as the sole basis for diagnosis, treatment, or other management decisions. INFLUENZA A AND B PCR - Normal Flu A Result Not Detected Flu B Result Not Detected Narrative: This assay is an in vitro diagnostic multiplex nucleic acid amplification test for the detection and discrimination of Influenza A & B from nasopharyngeal specimens, and has been validated for use at [facility]. Negative results do not preclude Influenza A/B infections, and should not be used as the sole basis for diagnosis, treatment, or other management decisions. IfInfluenza A/B and RSV PCR results are negative, testing for Parainfluenza virus, Adenovirus and Metapneumovirus is routinely performed for [facility] pediatric oncology and intensive care inpatients, and isavailable on other patients by placing an add-on request. RSV PCR - Normal RSV PCR Not Detected Narrative: This assay is an FDA-cleared, in vitro diagnostic nucleic acid amplification test for the detectionof RSV from nasopharyngeal specimens, and has been validated for use at [facility]. Negative results do not preclude RSV infections, and should not be used as the sole basis for diagnosis, treatment, or other management decisions. If Influenza A/B and RSV PCR results are negative, testing for Parainfluenza virus, Adenovirus and Metapneumovirus is routinely performed for pediatric oncology and intensive care inpatients at [facility], and is available on other patients by placingan add-on request. URINE CULTURE URINALYSIS WITH REFLEX CULTURE AND MICROSCOPIC Narrative: The following orders were created for panel order Urinalysis with Reflex Culture and Microscopic. Procedure Abnormality Status --------- ------ Urinalysis with Reflex C...[[id number]] Abnormal Final result Extra Urine Khan Tube[[id number]] Please view results for these tests on the individual orders. EXTRA URINE KHAN TUBE No orders to display Procedures Medical Decision Making Patient presents from [facility] residential with report of 1 day fever and generally is not feeling well. His COVID swab is negative. Just a mild leukocytosis on CBC. BUN and creatinine areelevated more than usual. The patient needs dialysis however he is refusing. Urinalysis is concerning for urinary tract infection. Will treat with oral antibiotics. Given his creatinine clearance order Levaquin 500 here and a prescription for 250. Diagnoses as of 06/12/23 0402 Urinary tract infection without hematuria, site unspecified Gil Botello MD 06/12/23 0356 Gil Botello MD 06/12/23 0402 documented in this [facility] Work Phone: [phone] Physician Emergency department Note* Gil Botello MD - 06/12/2023 2:12 AM EST The patient is a 78-year-old male who gets dialysis and is scheduled for later on this morning presents for evaluation for a low-grade fever. Patient feels chills. He reports a history of orthostatichypotension. Recent left total hip replacement in April and that is why he is in the residential. Review of Systems Physical Exam Vitals and nursing note reviewed. Constitutional: General: He is not in acute distress. Appearance: He is well-developed. HENT: Head: Normocephalic and atraumatic. Eyes: Conjunctiva/sclera: Conjunctivae normal. Cardiovascular: Rate and Rhythm: Normal rate and regular rhythm. Heart sounds: No murmur heard. Comments: Dialysis port right chest wall Pulmonary: Effort: Pulmonary effort is normal. No respiratory distress. Breath sounds: Normal breath sounds. Abdominal: Palpations: Abdomen is soft. Tenderness: There is no abdominal tenderness. Musculoskeletal: General: No swelling. Cervical back: Neck supple. Skin: General: Skin is warm and dry. Capillary Refill: Capillary refill takes less than 2 seconds. Neurological: Mental Status: He is alert. Psychiatric: Mood and Affect: Mood normal. Labs Reviewed CBC WITH AUTO DIFFERENTIAL - Abnormal Result Value WBC 11.4 (*) nRBC 0.0 RBC 3.34 (*) Hemoglobin 10.0 (*) Hematocrit 31.8 (*) MCV 95 MCH 29.9 MCHC 31.4 (*) RDW 16.7 (*) Platelets 266 Neutrophils % 79.5 Immature Granulocytes %, Automated 0.5 Lymphocytes % 10.5 Monocytes % 8.7 Eosinophils % 0.4 Basophils % 0.4 Neutrophils Absolute 9.05 (*) Immature Granulocytes Absolute, Automated 0.06 Lymphocytes Absolute 1.19 Monocytes Absolute 0.99 (*) Eosinophils Absolute 0.04 Basophils Absolute 0.05 BASIC METABOLIC PANEL - Abnormal Glucose 106 (*) Sodium 132 (*) Potassium 4.3 Chloride 89 (*) Bicarbonate 29 Anion Gap 18 Urea Nitrogen 63 (*) Creatinine 5.95 (*) eGFR 9 (*) Calcium 9.7 URINALYSIS WITH REFLEX CULTURE AND MICROSCOPIC - Abnormal Color, Urine Yellow Appearance, Urine Hazy (*) Specific Zo[place], Urine 1.012 pH, Urine 7.0 Protein, Urine >=500 (3+) (*) Glucose, Urine NEGATIVE Blood, Urine SMALL (1+) (*) Ketones, Urine NEGATIVE Bilirubin, Urine NEGATIVE Urobilinogen, Urine <2.0 Nitrite, Urine NEGATIVE Leukocyte Esterase, Urine LARGE (3+) (*) MICROSCOPIC ONLY, URINE - Abnormal WBC, Urine >50 (*) WBC Clumps, Urine MANY RBC, Urine >20 (*) Bacteria, Urine 1+ (*) Budding Yeast, Urine PRESENT (*) SARS-COV-2 PCR, SCREEN ASYMPTOMATIC - Normal Coronavirus 2018, PCR Not Detected Narrative: This assay has received FDA Emergency Use Authorization (EUA) and is only authorized for the duration of time that circumstances exist to justify the authorization of the emergency use of in vitro diagnostic tests for the detection of SARS-CoV-2 virus and/or diagnosis of COVID-19 infection under sec tion 564(b)(1) of the Act, 21 U.S.C. 360bbb-3(b)(1). This assay is an in vitro diagnostic nucleic acid amplification test for the qualitative detection of SARS-CoV-2 from nasopharyngeal specimens andhas been validated for use at [facility]. Negative results do not preclude COVID-19 infections and should not be used as the sole basis for diagnosis, treatment, or other management decisions. INFLUENZA A AND B PCR - Normal Flu A Result Not Detected Flu B Result Not Detected Narrative: This assay is an in vitro diagnostic multiplex nucleic acid amplification test for the detection and discrimination of Influenza A & B from nasopharyngeal specimens, and has been validated for use at [facility]. Negative results do not preclude Influenza A/B infections, and should not be used as the sole basis for diagnosis, treatment, or other management decisions. IfInfluenza A/B and RSV PCR results are negative, testing for Parainfluenza virus, Adenovirus and Metapneumovirus is routinely performed for [facility] pediatric oncology and intensive care inpatients, and isavailable on other patients by placing an add-on request. RSV PCR - Normal RSV PCR Not Detected Narrative: This assay is an FDA-cleared, in vitro diagnostic nucleic acid amplification test for the detectionof RSV from nasopharyngeal specimens, and has been validated for use at [facility]. Negative results do not preclude RSV infections, and should not be used as the sole basis for diagnosis, treatment, or other management decisions. If Influenza A/B and RSV PCR results are negative, testing for Parainfluenza virus, Adenovirus and Metapneumovirus is routinely performed for pediatric oncology and intensive care inpatients at [facility], and is available on other patients by placingan add-on request. URINE CULTURE URINALYSIS WITH REFLEX CULTURE AND MICROSCOPIC Narrative: The following orders were created for panel order Urinalysis with Reflex Culture and Microscopic. Procedure Abnormality Status --------- ------ Urinalysis with Reflex C...[[id number]] Abnormal Final result Extra Urine Khan Tube[[id number]] Please view results for these tests on the individual orders. EXTRA URINE KHAN TUBE No orders to display Procedures Medical Decision Making Patient [facility] with report of 1 day fever and generally is not feeling well. His COVID swab is negative. Just a mild leukocytosis on CBC. BUN and creatinine areelevated more than usual. The patient needs dialysis however he is refusing. Urinalysis is concerning for urinary tract infection. Will treat with oral antibiotics. Given his creatinine clearance order Levaquin 500 here and a prescription for 250. Diagnoses as of 06/12/23 0402 Urinary tract infection without hematuria, site unspecified Gil Botello MD 06/12/23 0356 Gil Botello MD 06/12/23 0402 [facility] Work Phone: [phone]) 155-830812-29-2023 Hospital Discharge instructions* Discharge Instructions* John Powell MD - 05/30/2023 6:18 PM EST START KEFLEX TOMORROW FOR UTI SCHEDULE EVAL BY VASCULAR SUGERY FOR ORTHOSTATIC HYPOTENSION DO NOT RISE OR STAND SUDDENLY [facility] Work Phone: 1(141) 984-415512-29-2023 Emergency department Note* John Powell MD - 05/30/2023 3:26 PM EST Chief Complaint: DIZZINESS Is a 78-year-old male who presents from residential complaining of near syncope. He states every time he stands up or ambulates he becomes very dizzy and almost blacks out. In fact he did this 1 time and fell and broke his hip he subsequently had that require dialysis and has been discharged from the hospital just recently for the hip fracture to the nursing facility. He continues to complain ofnear syncope with standing or any type of ambulation he feels short of breath with this he denies any chest pains or palpitations otherwise. Additionally he has a multitude of chronic other issues including bedsores abdominal distention excessive gas and possible urinary tract infection and a Foleycatheter Review of Systems Constitutional: Positive for fatigue. Negative for chills and fever. HENT: Negative for congestion and trouble swallowing. Respiratory: Positive for shortness of breath. Negative for cough. Cardiovascular: Negative for chest pain, palpitations and leg swelling. Gastrointestinal: Negative for blood in stool, nausea and vomiting. Genitourinary: Negative for dysuria. Urine cloudy Musculoskeletal: Positive for myalgias. Negative for arthralgias. Skin: Negative for rash. Neurological: Positive for dizziness, weakness and light-headedness. Negative for syncope. Psychiatric/Behavioral: Negative. Physical Exam Constitutional: General: He is not in acute distress. Appearance: He is obese. He is not ill-appearing. Comments: Is an unkempt bed ridden a 78-year-old male HENT: Head: Normocephalic and atraumatic. Nose: Nose normal. Mouth/Throat: Mouth: Mucous membranes are moist. Pharynx: No oropharyngeal exudate or posterior oropharyngeal erythema. Eyes: Extraocular Movements: Extraocular movements intact. Pupils: Pupils are equal, round, and reactive to light. Cardiovascular: Rate and Rhythm: Normal rate. Pulses: Normal pulses. Heart sounds: No murmur heard. Pulmonary: Breath sounds: No stridor. Comments: Slightly diminished breath sounds but without rales rhonchi wheezes Abdominal: General: There is distension. Palpations: There is no mass. Tenderness: There is no abdominal tenderness. There is left CVA tenderness. There is no right CVA tenderness or guarding. Hernia: No hernia is present. Musculoskeletal: General: No swelling or tenderness. Normal range of motion. Cervical back: Normal range of motion and neck supple. No tenderness. Skin: General: Skin is warm and dry. Findings: No erythema or rash. Neurological: General: No focal deficit present. Mental Status: He is oriented to person, place, and time. Cranial Nerves: No cranial nerve deficit. Sensory: No sensory deficit. Motor: No weakness. Psychiatric: Mood and Affect: Mood normal. Labs Reviewed CBC WITH AUTO DIFFERENTIAL - Abnormal Result Value WBC 7.7 nRBC 0.0 RBC 2.84 (*) Hemoglobin 8.3 (*) Hematocrit 27.2 (*) MCV 96 MCH 29.2 MCHC 30.5 (*) RDW 16.2 (*) Platelets 292 Neutrophils % 63.8 Immature Granulocytes %, Automated 0.4 Lymphocytes % 23.8 Monocytes % 8.2 Eosinophils % 3.3 Basophils % 0.5 Neutrophils Absolute 4.89 Immature Granulocytes Absolute, Automated 0.03 Lymphocytes Absolute 1.82 Monocytes Absolute 0.63 Eosinophils Absolute 0.25 Basophils Absolute 0.04 BASIC METABOLIC PANEL - Abnormal Glucose 87 Sodium 137 Potassium 3.9 Chloride 95 (*) Bicarbonate 31 Anion Gap 15 Urea Nitrogen 51 (*) Creatinine 4.22 (*) eGFR 14 (*) Calcium 9.1 HEPATIC FUNCTION PANEL - Abnormal Albumin 3.4 Bilirubin, Total 0.3 Bilirubin, Direct 0.1 Alkaline Phosphatase 78 ALT 6 (*) AST 7 (*) Total Protein 7.3 LACTATE - Abnormal Lactate 2.1 (*) Narrative: Venipuncture immediately after or during the administration of Metamizole may lead to falsely low results. Testing should be performed immediately prior to Metamizole dosing. URINALYSIS WITH REFLEX CULTURE AND MICROSCOPIC - Abnormal Color, Urine Yellow Appearance, Urine Hazy (*) Specific Zo[place], Urine 1.014 pH, Urine 7.0 Protein, Urine >=500 (3+) (*) Glucose, Urine NEGATIVE Blood, Urine SMALL (1+) (*) Ketones, Urine NEGATIVE Bilirubin, Urine NEGATIVE Urobilinogen, Urine <2.0 Nitrite, Urine NEGATIVE Leukocyte Esterase, Urine MODERATE (2+) (*) MICROSCOPIC ONLY, URINE - Abnormal WBC, Urine >50 (*) WBC Clumps, Urine MANY RBC, Urine >20 (*) Bacteria, Urine 3+ (*) MAGNESIUM - Normal Magnesium 2.08 LIPASE - Normal Lipase 59 Narrative: Venipuncture immediately after or during the administration of Metamizole may lead to falsely low results. Testing should be performed immediately prior to Metamizole dosing. TROPONIN I, HIGH SENSITIVITY - Normal Troponin I, High Sensitivity 7 Narrative: Less than 99th percentile of normal range cutoff- Female and children under 18 years old <14 ng/L; Male <21 ng/L: Negative Repeat testing should be performed if clinically indicated. Female and children under 18 years old 14-50 ng/L; Male 21-50 ng/L: Consistent with possible cardiac damage and possible increased clinical risk. Serial measurements may help to assess extent of myocardial damage. >50 ng/L: Consistent with cardiac damage, increased clinical risk and myocardial infarction. Serial measurements may help assess extent of myocardial damage. NOTE: Children less than 1 year old may have higher baseline troponin levels and results should be interpreted in conjunction with the overall clinical context. NOTE: Troponin I testing is performed using a different testing methodology at [facility] than at other [facility]. Direct result comparisons should only be made within the same method. B-TYPE NATRIURETIC PEPTIDE - Normal BNP 97 Narrative: <100 pg/mL - Heart failure unlikely 100-299 pg/mL - Intermediate probability of acute heart failure exacerbation. Correlate with clinical context and patient history. >=300 pg/mL - Heart Failure likely. Correlate with clinical context and patient history. BNP testing is performed using different testing methodology at [facility] than at [facility]. Direct result comparisons should only be made within the same method. INFLUENZA A AND B PCR - Normal Flu A Result Not Detected Flu B Result Not Detected Narrative: This assay is an in vitro diagnostic multiplex nucleic acid amplification test for the detection and discrimination of Influenza A & B from nasopharyngeal specimens, and has been validated for use at [facility]. Negative results do not preclude Influenza A/B infections, and should not be used as the sole basis for diagnosis, treatment, or other management decisions. IfInfluenza A/B and RSV PCR results are negative, testing for Parainfluenza virus, Adenovirus and Metapneumovirus is routinely performed for [facility] pediatric oncology and intensive care inpatients, and isavailable on other patients by placing an add-on request. SARS-COV-2 PCR, SYMPTOMATIC - Normal Coronavirus 2018, PCR Not Detected Narrative: This assay has received FDA Emergency Use Authorization (EUA) and is only authorized for the duration of time that circumstances exist to justify the authorization of the emergency use of in vitro diagnostic tests for the detection of SARS-CoV-2 virus and/or diagnosis of COVID-19 infection under sec tion 564(b)(1) of the Act, 21 U.S.C. 360bbb-3(b)(1). This assay is an in vitro diagnostic nucleic acid amplification test for the qualitative detection of SARS-CoV-2 from nasopharyngeal specimens andhas been validated for use at [facility]. Negative results do not preclude COVID-19 infections and should not be used as the sole basis for diagnosis, treatment, or other management decisions. URINE CULTURE BLOOD CULTURE BLOOD CULTURE URINE CULTURE URINALYSIS WITH REFLEX CULTURE AND MICROSCOPIC Narrative: The following orders were created for panel order Urinalysis with Reflex Culture and Microscopic. Procedure Abnormality Status --------- ------ Urinalysis with Reflex C...[[id number]] Abnormal Final result Extra Urine Khan Tube[[id number]] Please view results for these tests on the individual orders. EXTRA URINE KHAN TUBE LACTATE CT head wo IV contrast Final Result No acute intracranial finding. MRI may be obtained if clinically indicated Signed by: Angel Larkin 05/30/2023 4:26 PM Dictation workstation: [id number] XR chest 1 view Final Result Right internal jugular central venous catheter demonstrates tip at the level of the right atrium. Left basilar opacity and left pleural effusion. Please correlate for pneumonia. Cardiomegaly and emphysematous changes. No pneumothorax. Signed by Calvin Bauman, DO Procedures Medical Decision Making Syrian diagnose include cardiac arrhythmia near syncope exertional dyspnea orthostatic hypotension.EKG chest x-ray CT scan of the brain and appropriate labs were ordered at this time. As it follows his COVID testing and influenza testing were both negative troponin was negative also. BNP was normal at 97 without any signs of congestive heart failure lipase 59 liver function test was normal metabolic panel showed renal insufficiency for which she is receiving dialysis with a BUN of 51 and a creatinine of 4.22. Lactate was 2.1 urinalysis showed a significant UTI with greater than 50 white cells per high-powered field with clumps and RBCs. Patient received 2 g of Rocephin intravenously for his urinary tract infection. Postural vital show up and over 35 point blood pressure drop from 6 laying to a standing position as well as tachycardia which very well explains his near syncope episodes. Patient will need a vascular surgery consult for definitive treatment plan for this. In the interim he will be treated for his UTI. His chronic anemia is actually improved. Amount and/or Complexity of Data Reviewed ECG/medicine tests: independent interpretation performed. Details: Lead EKG showed sinus rhythm at 75/min there is low voltage there is baseline artifact also at this time Diagnoses as of 05/30/231823 Chronic anemia Orthostatic hypotension UTI (urinary tract infection), bacterial Renal insufficiency John Powell MD 05/30/231823 documented in this [facility] Work Phone: [phone]) [phone] Physician Emergency department Note* John Powell MD - 05/30/2023 3:26 PM EST Chief Complaint: DIZZINESS Is a 78-year-old male who presents from residential complaining of near syncope. He states every time he stands up or ambulates he becomes very dizzy and almost blacks out. In fact he did this 1 time and fell and broke his hip he subsequently had that require dialysis and has been discharged from the hospital just recently for the hip fracture to the nursing facility. He continues to complain ofnear syncope with standing or any type of ambulation he feels short of breath with this he denies any chest pains or palpitations otherwise. Additionally he has a multitude of chronic other issues including bedsores abdominal distention excessive gas and possible urinary tract infection and a Foleycatheter Review of Systems Constitutional: Positive for fatigue. Negative for chills and fever. HENT: Negative for congestion and trouble swallowing. Respiratory: Positive for shortness of breath. Negative for cough. Cardiovascular: Negative for chest pain, palpitations and leg swelling. Gastrointestinal: Negative for blood in stool, nausea and vomiting. Genitourinary: Negative for dysuria. Urine cloudy Musculoskeletal: Positive for myalgias. Negative for arthralgias. Skin: Negative for rash. Neurological: Positive for dizziness, weakness and light-headedness. Negative for syncope. Psychiatric/Behavioral: Negative. Physical Exam Constitutional: General: He is not in acute distress. Appearance: He is obese. He is not ill-appearing. Comments: Is an unkempt bed ridden a 78-year-old male HENT: Head: Normocephalic and atraumatic. Nose: Nose normal. Mouth/Throat: Mouth: Mucous membranes are moist. Pharynx: No oropharyngeal exudate or posterior oropharyngeal erythema. Eyes: Extraocular Movements: Extraocular movements intact. Pupils: Pupils are equal, round, and reactive to light. Cardiovascular: Rate and Rhythm: Normal rate. Pulses: Normal pulses. Heart sounds: No murmur heard. Pulmonary: Breath sounds: No stridor. Comments: Slightly diminished breath sounds but without rales rhonchi wheezes Abdominal: General: There is distension. Palpations: There is no mass. Tenderness: There is no abdominal tenderness. There is left CVA tenderness. There is no right CVA tenderness or guarding. Hernia: No hernia is present. Musculoskeletal: General: No swelling or tenderness. Normal range of motion. Cervical back: Normal range of motion and neck supple. No tenderness. Skin: General: Skin is warm and dry. Findings: No erythema or rash. Neurological: General: No focal deficit present. Mental Status: He is oriented to person, place, and time. Cranial Nerves: No cranial nerve deficit. Sensory: No sensory deficit. Motor: No weakness. Psychiatric: Mood and Affect: Mood normal. Labs Reviewed CBC WITH AUTO DIFFERENTIAL - Abnormal Result Value WBC 7.7 nRBC 0.0 RBC 2.84 (*) Hemoglobin 8.3 (*) Hematocrit 27.2 (*) MCV 96 MCH 29.2 MCHC 30.5 (*) RDW 16.2 (*) Platelets 292 Neutrophils % 63.8 Immature Granulocytes %, Automated 0.4 Lymphocytes % 23.8 Monocytes % 8.2 Eosinophils % 3.3 Basophils % 0.5 Neutrophils Absolute 4.89 Immature Granulocytes Absolute, Automated 0.03 Lymphocytes Absolute 1.82 Monocytes Absolute 0.63 Eosinophils Absolute 0.25 Basophils Absolute 0.04 BASIC METABOLIC PANEL - Abnormal Glucose 87 Sodium 137 Potassium 3.9 Chloride 95 (*) Bicarbonate 31 Anion Gap 15 Urea Nitrogen 51 (*) Creatinine 4.22 (*) eGFR 14 (*) Calcium 9.1 HEPATIC FUNCTION PANEL - Abnormal Albumin 3.4 Bilirubin, Total 0.3 Bilirubin, Direct 0.1 Alkaline Phosphatase 78 ALT 6 (*) AST 7 (*) Total Protein 7.3 LACTATE - Abnormal Lactate 2.1 (*) Narrative: Venipuncture immediately after or during the administration of Metamizole may lead to falsely low results. Testing should be performed immediately prior to Metamizole dosing. URINALYSIS WITH REFLEX CULTURE AND MICROSCOPIC - Abnormal Color, Urine Yellow Appearance, Urine Hazy (*) Specific [place], Urine 1.014 pH, Urine 7.0 Protein, Urine >=500 (3+) (*) Glucose, Urine NEGATIVE Blood, Urine SMALL (1+) (*) Ketones, Urine NEGATIVE Bilirubin, Urine NEGATIVE Urobilinogen, Urine <2.0 Nitrite, Urine NEGATIVE Leukocyte Esterase, Urine MODERATE (2+) (*) MICROSCOPIC ONLY, URINE - Abnormal WBC, Urine >50 (*) WBC Clumps, Urine MANY RBC, Urine >20 (*) Bacteria, Urine 3+ (*) MAGNESIUM - Normal Magnesium 2.08 LIPASE - Normal Lipase 59 Narrative: Venipuncture immediately after or during the administration of Metamizole may lead to falsely low results. Testing should be performed immediately prior to Metamizole dosing. TROPONIN I, HIGH SENSITIVITY - Normal Troponin I, High Sensitivity 7 Narrative: Less than 99th percentile of normal range cutoff- Female and children under 18 years old <14 ng/L; Male <21 ng/L: Negative Repeat testing should be performed if clinically indicated. Female and children under 18 years old 14-50 ng/L; Male 21-50 ng/L: Consistent with possible cardiac damage and possible increased clinical risk. Serial measurements may help to assess extent of myocardial damage. >50 ng/L: Consistent with cardiac damage, increased clinical risk and myocardial infarction. Serial measurements may help assess extent of myocardial damage. NOTE: Children less than 1 year old may have higher baseline troponin levels and results should be interpreted in conjunction with the overall clinical context. NOTE: Troponin I testing is performed using a different testing methodology at [facility] than at [facility]. Direct result comparisons should only be made within the same method. B-TYPE NATRIURETIC PEPTIDE - Normal BNP 97 Narrative: <100 pg/mL - Heart failure unlikely 100-299 pg/mL - Intermediate probability of acute heart failure exacerbation. Correlate with clinical context and patient history. >=300 pg/mL - Heart Failure likely. Correlate with clinical context and patient history. BNP testing is performed using different testing methodology at [facility] than at [facility]. Direct result comparisons should only be made within the same method. INFLUENZA A AND B PCR - Normal Flu A Result Not Detected Flu B Result Not Detected Narrative: This assay is an in vitro diagnostic multiplex nucleic acid amplification test for the detection and discrimination of Influenza A & B from nasopharyngeal specimens, and has been validated for use at [facility]. Negative results do not preclude Influenza A/B infections, and should not be used as the sole basis for diagnosis, treatment, or other management decisions. IfInfluenza A/B and RSV PCR results are negative, testing for Parainfluenza virus, Adenovirus and Metapneumovirus is routinely performed for [facility] [place] oncology and intensive care inpatients, and isavailable on other patients by placing an add-on request. SARS-COV-2 PCR, SYMPTOMATIC - Normal Coronavirus 2018, PCR Not Detected Narrative: This assay has received FDA Emergency Use Authorization (EUA) and is only authorized for the duration of time that circumstances exist to justify the authorization of the emergency use of in vitro diagnostic tests for the detection of SARS-CoV-2 virus and/or diagnosis of COVID-19 infection under sec tion 564(b)(1) of the Act, 21 U.S.C. 360bbb-3(b)(1). This assay is an in vitro diagnostic nucleic acid amplification test for the qualitative detection of SARS-CoV-2 from nasopharyngeal specimens andhas been validated for use at [facility]. Negative results do not preclude COVID-19 infections and should not be used as the sole basis for diagnosis, treatment, or other management decisions. URINE CULTURE BLOOD CULTURE BLOOD CULTURE URINE CULTURE URINALYSIS WITH REFLEX CULTURE AND MICROSCOPIC Narrative: The following orders were created for panel order Urinalysis with Reflex Culture and Microscopic. Procedure Abnormality Status --------- ------ Urinalysis with Reflex C...[[id number]] Abnormal Final result Extra Urine Khan Tube[[id number]] Please view results for these tests on the individual orders. EXTRA URINE KHAN TUBE LACTATE CT head wo IV contrast Final Result No acute intracranial finding. MRI may be obtained if clinically indicated Signed by: Angel Larkin 05/30/2023 4:26 PM Dictation workstation: [id number] XR chest 1 view Final Result Right internal jugular central venous catheter demonstrates tip at the level of the right atrium. Left basilar opacity and left pleural effusion. Please correlate for pneumonia. Cardiomegaly and emphysematous changes. No pneumothorax. Signed by Calvin Bauman, DO Procedures Medical Decision Making Syrian diagnose include cardiac arrhythmia near syncope exertional dyspnea orthostatic hypotension.EKG chest x-ray CT scan of the brain and appropriate labs were ordered at this time. As it follows his COVID testing and influenza testing were both negative troponin was negative also. BNP was normal at 97 without any signs of congestive heart failure lipase 59 liver function test was normal metabolic panel showed renal insufficiency for which she is receiving dialysis with a BUN of 51 and a creatinine of 4.22. Lactate was 2.1 urinalysis showed a significant UTI with greater than 50 white cells per high-powered field with clumps and RBCs. Patient received 2 g of Rocephin intravenously for his urinary tract infection. Postural vital show up and over 35 point blood pressure drop from 6 laying to a standing position as well as tachycardia which very well explains his near syncope episodes. Patient will need a vascular surgery consult for definitive treatment plan for this. In the interim he will be treated for his UTI. His chronic anemia is actually improved. Amount and/or Complexity of Data Reviewed ECG/medicine tests: independent interpretation performed. Details: Lead EKG showed sinus rhythm at 75/min there is low voltage there is baseline artifact also at this time Diagnoses as of 05/30/231823 Chronic anemia Orthostatic hypotension UTI (urinary tract infection), bacterial Renal insufficiency John Powell MD 05/30/231823 [facility] Work Phone: [phone]) 756-156312-22-2023 Evaluation + Plan note* Assessment & Plan Note - Judy Ley MD - 05/23/2023 9:25 AM ESTAssociated Problem(s): Closed fracture of left hip, initial encounter ([facility]) Assessment: Left hemiarthroplasty status post a fracture from 04/02/2023. The patient states that his left hip is doing well. When he does stand up he is having minimal to no pain. Gentle range of motion of his hip is nontender. He understands the hip precautions. He is at a nursing facility and he states when he does stand up his heart rate is going up and he gets lightheaded. He states that he had been able to stand up to 2 minutes and he has been ambulating somewhat with a walker. Plan: His incision is clean and dry but his surgical ema are still in place. These should be removed.Dry sterile dressing can be applied and then replaced as needed. If there is any issues with the wound we should be called. Continue to enforce posterior hip precautions. Mobilize as tolerated. This will mainly be limited by his cardiac condition. Follow-up in a month with new x-rays, if he is still at that short-term care facility x-rays shouldbe obtained 24 to 48 hours before he comes to his follow- up and they should be available for me to view the actual images. X-rays should be obtained within the next 24 to 48 hours of the left hip AP and lateral and an AP pelvis. [facility] Work Phone: 1([phone]) 166-150612-22-2023 Miscellaneous Notes* Assessment & Plan Note - Judy Ley MD - 05/23/2023 9:25 AM ESTAssociated Problem(s): Closed fracture of left hip, initial encounter ([facility]) Assessment: Left hemiarthroplasty status post a fracture from 04/02/2023. The patient states that his left hip is doing well. When he does stand up he is having minimal to no pain. Gentle range of motion of his hip is nontender. He understands the hip precautions. He is at a nursing facility and he states when he does stand up his heart rate is going up and he gets lightheaded. He states that he had been able to stand up to 2 minutes and he has been ambulating somewhat with a walker. Plan: His incision is clean and dry but his surgical ema are still in place. These should be removed.Dry sterile dressing can be applied and then replaced as needed. If there is any issues with the wound we should be called. Continue to enforce posterior hip precautions. Mobilize as tolerated. This will mainly be limited by his cardiac condition. Follow-up in a month with new x-rays, if he is still at that short-term care facility x-rays shouldbe obtained 24 to 48 hours before he comes to his follow- up and they should be available for me to view the actual images. X-rays should be obtained within the next 24 to 48 hours of the left hip AP and lateral and an AP pelvis. [facility] Work Phone: [phone]) 314-644212-22-2023 History of Present illness Narrative* Judy Ley MD - 05/23/2023 9:00 AM EST Assessment/Plan Encounter Diagnoses: Closed fracture of left hip, initial encounter ([facility]) Left hip pain History of left hip hemiarthroplasty Closed fracture of left hip, initial encounter ([facility]) Assessment: Left hemiarthroplasty status post a fracture from 04/02/2023. The patient states that his left hip is doing well. When he does stand up he is having minimal to no pain. Gentle range of motion of his hip is nontender. He understands the hip precautions. He is at a nursing facility and he states when he does stand up his heart rate is going up and he gets lightheaded. He states that he had been able to stand up to 2 minutes and he has been ambulating somewhat with a walker. Plan: His incision is clean and dry but his surgical ema are still in place. These should be removed.Dry sterile dressing can be applied and then replaced as needed. If there is any issues with the wound we should be called. Continue to enforce posterior hip precautions. Mobilize as tolerated. This will mainly be limited by his cardiac condition. Follow-up in a month with new x-rays, if he is still at that short-term care facility x-rays shouldbe obtained 24 to 48 hours before he comes to his follow- up and they should be available for me to view the actual images. X-rays should be obtained within the next 24 to 48 hours of the left hip AP and lateral and an AP pelvis. Subjective Patient ID: Genet Booth is a 78 y.o. male. Chief Complaint: Pain and Post-op of the Left Hip Last Surgery: Hip Hemiarthroplasty - Left Last Surgery Date: 04/02/2023 HPI 78-year-old who is 7 weeks status post left hip hemiarthroplasty. His rehab is limited by his cardiac condition. He states he is having trouble standing without getting tachycardia and lightheaded. He does state that his hip is the least of his troubles and he is having minimal pain associated withit. He states his incision is doing well although the ema are still in place. OBJECTIVE: ORTHO EXAM Left hip: He is essentially nonweightbearing because of his cardiac issues. Skin healthy and intact No tenderness to palpation over lumbar spine No tenderness over greater trochanter No tenderness referable to groin especially with IR He was nontender to palpation over the surgical site. The ema are in place. These will be removed within 24 hours. Full forward flexion Symmetric motion, no loss of internal rotation No weakness with resisted hip flexion, abduction or adduction Negative flexion/adduction/internal rotation Negative flexion/abduction/external rotation test Negative straight leg raise Neurovascular exam normal distally His calves were nontender bilaterally. IMAGE RESULTS: XR hip left with pelvis when performed 2 or 3 views These images are not reportable by radiology and will not be interpreted by Radiologists. XR hip left with pelvis when performed 2 or 3 views These images are not reportable by radiology and will not be interpreted by Radiologists. ULTRASOUND None Procedures Orders Placed This Encounter XR hip left with pelvis when performed 2 or 3 views Point of Care Ultrasound XR hip left with pelvis when performed 2 or 3 views XR hip left with pelvis when performed 2 or 3 views documented in [facility] Work Phone: 1([phone]) 273-805712-01-2023 Nurse Note* Denita Catherine RN - 05/02/2023 10:15 AM EST Katrin, nurse to Dr. Tillman, states Dr. Tillman would like pt to be rescheduled unless having active bleeding. This Rn spoke with Roma from [facility] who reports that no active bleeding has been observed or voiced by pt. Pt to be rescheduled and phone call transferred to Dr. Tillman's office to reschedule pt. * Denita Catherine RN - 05/02/2023 9:20 AM EST Spoke with pt who is currently pt at [facility] due to recent hip surgery and beginning dialysis. Staff in pt room at time of phone call requested that this Rn call back in an hour after they have an opportunity to look over pt situation more closely. Call placed to Katrin, nurse to Dr. Tillman, regarding pt recent change in status. Katrin states she will speak with Dr. Tillman regardingsituation as to whether or not pt needs rescheduled due to current situation [facility] Nurse Surgical operation note* Denita Catherine RN - 05/02/2023 10:15 AM EST Katrin, nurse to Dr. Tillman, states Dr. Tillman would like pt to be rescheduled unless having active bleeding. This Rn spoke with Roma from [facility] who reports that no active bleeding has been observed or voiced by pt. Pt to be rescheduled and phone call transferred to Dr. Tillman's office to reschedule pt. [facility]12-01-2023 Nurse Surgical operation note* Denita Catherine RN - 05/02/2023 9:20 AM EST Spoke with pt who is currently pt at [facility] due to recent hip surgery and beginning dialysis. Staff in pt room at time of phone call requested that this Rn call back in an hour after they have an opportunity to look over pt situation more closely. Call placed to Katrin, nurse to Dr. Tillman, regarding pt recent change in status. Katrin states she will speak with Dr. Tillman regardingsituation as to whether or not pt needs rescheduled due to current situation [facility]11-21-2023 History of Present illness Narrative* Judy Ley MD - 04/22/2023 2:00 PM EST Assessment/Plan Encounter Diagnoses: History of left hip hemiarthroplasty Left hip pain Closed fracture of left hip, initial encounter ([facility]) Assessment: Left femoral neck fracture with hemiarthroplasty on 04/02/2023. He is now 3 weeks statuspost surgery. Plan: Continue DVT prophylaxis with aspirin 325 mg daily for at least 3 more weeks. Home exercise program and physical therapy Reviewed dislocation precautions posterior approach Follow-up in 3 to 4 weeks for reevaluation. Dry sterile dressing PRN. X-rays of the hip will be obtained by the facility and sent to mt for evaluation. When he follows up in 3 weeks new x-rays can be obtained at our facility. Subjective Patient ID: Genet Booth is a 78 y.o. male. Chief Complaint: Post-op of the Left Hip (POV L Hip/X-ray 04-02-23/Pain Rate 0) Last Surgery: Hip Hemiarthroplasty - Left Last Surgery Date: 04/02/2023 HPI 78-year-old male who is 3 weeks status post left hemiarthroplasty. He states he is not having any hip pain per se. He is ambulating with a walker at the facility. He is pleased with his progress. OBJECTIVE: ORTHO EXAM Left hip: Antalgic but improving gait Negative Trendelenburg sign Skin healthy and intact Posterior hip incision looks clean and dry. The vonnie dressing was removed. No signs of drainage or erythema or other signs of infection. He was relatively nontender to palpation overlying the incision.'s thigh was supple and nontender. No tenderness to palpation over lumbar spine Minimal tenderness over greater trochanter Minimal tenderness referable to groin especially with IR Neurovascular exam normal distally He states he ambulates with a walker at the facility. He is in a wheelchair which does not allow him to ambulate. He does not have a walker with him. IMAGE RESULTS: XR abdomen 1 view Narrative: Interpreted By: Alejo De León, STUDY: XR ABDOMEN 1 VIEW INDICATION: Signs/Symptoms:ileus or SBO. COMPARISON: December 31, 2022 ACCESSION NUMBER(S): [id number] ORDERING CLINICIAN: GIOVANNI PARDO FINDINGS: Elevated left hemidiaphragm with similar appearance to prior study with bowel contents overlying the left chest. The bowel-gas pattern is nonspecific with stool throughout the colon. No definite obstruction identified. There is however a large amount of colonic distention. This suggests ileus. Double-J ureterostomy stent seen. Left hip hemiarthroplasty. Impression: Significant colonic dilatation with stool throughout. Findings favor ileus without definite obstruction. Elevated left hemidiaphragm with bowel contents over the chest wall similar prior study Signed by: Alejo De León 04/04/2023 5:46 PM Dictation workstation: [id number] ULTRASOUND None Procedures Orders Placed This Encounter Point of Care Ultrasound Follow Up In Orthopaedic Surgery documented in this [facility]Mer[facility] Work Phone: 1([phone]) 575-762711-21-2023 Evaluation + Plan note* Assessment & Plan Note - Judy Ley MD - 04/22/2023 7:27 AM ESTAssociated Problem(s): Closed fracture of left hip, initial encounter ([facility]) Assessment: Left femoral neck fracture with hemiarthroplasty on 04/02/2023. He is now 3 weeks statuspost surgery. Plan: Continue DVT prophylaxis with aspirin 325 mg daily for at least 3 more weeks. Home exercise program and physical therapy Reviewed dislocation precautions posterior approach Follow-up in 3 to 4 weeks for reevaluation. [facility] Work Phone: 1([phone]) 155-959711-21-2023 Miscellaneous Notes* Assessment & Plan Note - Judy Ley MD - 04/22/2023 7:27 AM ESTAssociated Problem(s): Closed fracture of left hip, initial encounter ([facility]) Assessment: Left femoral neck fracture with hemiarthroplasty on 04/02/2023. He is now 3 weeks statuspost surgery. Plan: Continue DVT prophylaxis with aspirin 325 mg daily for at least 3 more weeks. Home exercise program and physical therapy Reviewed dislocation precautions posterior approach Follow-up in 3 to 4 weeks for reevaluation. documented in this [facility]Mer[facility] Work Phone: [phone]) 834-618111-09-2023 Procedure note* Tiana De León DO - 04/10/2023 2:09 PM EST Right internal jugular tunneled dialysis catheter Reason: Need for renal replacement therapy with chronic kidney disease stage V/end-stage renal disease Consent: Written consent obtained Timeout: Performed in the Windows Systems Administrator at the procedure side table Procedure: Using direct ultrasound visualization I was able to easily visualize the right internal jugular vein and it is a good target He was draped and cleaned in normal sterile fashion with chlorhexidine He was given sedation Using direct ultrasound visualization about 3 cc of lidocaine was injected into the subcutaneous tissue above the right internal jugular vein A large bore needle was inserted into the vein on 1 attempt and a wire was floated easily Fluoroscopy showed the wire to be in good position Lidocaine was then used to anesthetize the skin on the chest wall and then also at the wire insertion point fully He did have a little bit of bruising with the injection of lidocaine at the wire insertion point An incision was then made on the chest wall and at the wire insertion point The catheter a 23 cm 14 Syrian was tunneled under the skin and out through the incision The site was then dilated x3 and on the last dilation the wire was removed and a tear-away sheath was left in place The catheter was then placed down to the tear-away sheath and the tear-away sheath was removed Fluoroscopy showed the catheter to be in good position Both ports bradley and flushed easily The catheter was locked with heparin 2 stitches were placed on the hopes of the catheter 2 stitches were placed at the neck at the insertion point Blood loss was minimal He tolerated the procedure well without any adverse events noted Sedation used was Versed 4 mg and fentanyl 50 mcg The catheter can now be used for renal replacement therapy going forward The site was we cleaned and dressed in sterile fashion [facility] Work Phone: [phone]) 287-843411-09-2023 Procedure note* Tiana De León DO - 04/10/2023 2:09 PM EST Right internal jugular tunneled dialysis catheter Reason: Need for renal replacement therapy with chronic kidney disease stage V/end-stage renal disease Consent: Written consent obtained Timeout: Performed in the Windows Systems Administrator at the procedure side table Procedure: Using direct ultrasound visualization I was able to easily visualize the right internal jugular vein and it is a good target He was draped and cleaned in normal sterile fashion with chlorhexidine He was given sedation Using direct ultrasound visualization about 3 cc of lidocaine was injected into the subcutaneous tissue above the right internal jugular vein A large bore needle was inserted into the vein on 1 attempt and a wire was floated easily Fluoroscopy showed the wire to be in good position Lidocaine was then used to anesthetize the skin on the chest wall and then also at the wire insertion point fully He did have a little bit of bruising with the injection of lidocaine at the wire insertion point An incision was then made on the chest wall and at the wire insertion point The catheter a 23 cm 14 Syrian was tunneled under the skin and out through the incision The site was then dilated x3 and on the last dilation the wire was removed and a tear-away sheath was left in place The catheter was then placed down to the tear-away sheath and the tear-away sheath was removed Fluoroscopy showed the catheter to be in good position Both ports bradley and flushed easily The catheter was locked with heparin 2 stitches were placed on the hopes of the catheter 2 stitches were placed at the neck at the insertion point Blood loss was minimal He tolerated the procedure well without any adverse events noted Sedation used was Versed 4 mg and fentanyl 50 mcg The catheter can now be used for renal replacement therapy going forward The site was we cleaned and dressed in sterile fashion documented in this [facility] Work Phone: 1([phone]) 485-823711-09-2023 History and physical note* Tiana De León DO - 04/10/2023 11:17 AM EST History Of Present Illness Genet Booth is a 78 y.o. male presenting with end-stage renal disease and need for a tunneled dialysis catheter placement. 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 At that time last week during his hospitalization he did not want to undergo another procedure and wanted to be given more time [facility] blood work was drawn and his renal functioncontinues to show decline when it comes to his BUN rising. He does not have overt symptoms of uremia but he did agree now to initiation of renal replacement therapy and a tunneled dialysis catheter placement He presented here today due to that need Past Medical History He has a past medical history of Jamisno catheter in place on admission, Hypertension, Kidney disease, Prostate cancer (CMS/HCC), and Sleep apnea. Surgical History He has a past surgical history that includes Total knee arthroplasty (Right) and Hip fracture surgery (Left, 04/02/2023). Social History He reports that he has quit smoking. His smoking use included cigarettes. He has never used smokeless tobacco. He reports that he does not currently use alcohol. He reports that he does not use drugs. Family History Family History Problem Relation Name Age of Onset Heart failure Mother Alzheimer's disease Father Allergies Bupropion, Meloxicam, Ciprofloxacin, and Iodine Review of Systems Genitourinary: Chronic indwelling Jamison catheter Musculoskeletal: Positive for arthralgias, joint swelling and myalgias. All other systems reviewed and are negative. Physical Exam Constitutional: Appearance: Normal appearance. HENT: Head: Normocephalic and atraumatic. Right Ear: External ear normal. Left Ear: External ear normal. Nose: Nose normal. Mouth/Throat: Mouth: Mucous membranes are moist. Pharynx: Oropharynx is clear. Eyes: Extraocular Movements: Extraocular movements intact. Conjunctiva/sclera: Conjunctivae normal. Pupils: Pupils are equal, round, and reactive to light. Cardiovascular: Rate and Rhythm: Normal rate and regular rhythm. Pulmonary: Effort: Pulmonary effort is normal. Breath sounds: Normal breath sounds. Abdominal: General: Abdomen is flat. Palpations: Abdomen is soft. Genitourinary: Comments: Chronic indwelling Jamison catheter Musculoskeletal: Comments: Surgical change from recent left hip surgery Skin: General: Skin is warm and dry. Neurological: General: No focal deficit present. Mental Status: He is alert and oriented to person, place, and time. Psychiatric: Mood and Affect: Mood normal. Behavior: Behavior normal. Last Recorded Vitals There were no vitals taken for this visit. Relevant Results Assessment/Plan Principal Problem: ESRD (end stage renal disease) ([facility]) Chronic kidney disease stage V/ESRD Azotemia Anemia Hypertension Normal anion gap metabolic acidosis Left hip fracture recent with surgery Bilateral hydronephrosis with right stent in place Plan: At this time we will proceed with a tunneled dialysis catheter placement [facility] replacement [facility] We will get his hepatitis panel while he is here Mallampati grade 2 ASA grade 3 Tiana De León DO [facility] Work Phone: 1([phone]) 252-255911-09-2023 History and physical note* Tiana De León DO - 04/10/2023 11:17 AM EST History Of Present Illness Genet Booth is a 78 y.o. male presenting with end-stage renal disease and need for a tunneled dialysis catheter placement. 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 At that time last week during his hospitalization he did not want to undergo another procedure and wanted to be given more time He was [facility] blood work was drawn and his renal functioncontinues to show decline when it comes to his BUN rising. He does not have overt symptoms of uremia but he did agree now to initiation of renal replacement therapy and a tunneled dialysis catheter placement He presented here today due to that need Past Medical History He has a past medical history of Jamison catheter in place on admission, Hypertension, Kidney disease, Prostate cancer ([facility]/HCC), and Sleep apnea. Surgical History He has a past surgical history that includes Total knee arthroplasty (Right) and Hip fracture surgery (Left, 04/02/2023). Social History He reports that he has quit smoking. His smoking use included cigarettes. He has never used smokeless tobacco. He reports that he does not currently use alcohol. He reports that he does not use drugs. Family History Family History Problem Relation Name Age of Onset Heart failure Mother Alzheimer's disease Father Allergies Bupropion, Meloxicam, Ciprofloxacin, and Iodine Review of Systems Genitourinary: Chronic indwelling Jamison catheter Musculoskeletal: Positive for arthralgias, joint swelling and myalgias. All other systems reviewed and are negative. Physical Exam Constitutional: Appearance: Normal appearance. HENT: Head: Normocephalic and atraumatic. Right Ear: External ear normal. Left Ear: External ear normal. Nose: Nose normal. Mouth/Throat: Mouth: Mucous membranes are moist. Pharynx: Oropharynx is clear. Eyes: Extraocular Movements: Extraocular movements intact. Conjunctiva/sclera: Conjunctivae normal. Pupils: Pupils are equal, round, and reactive to light. Cardiovascular: Rate and Rhythm: Normal rate and regular rhythm. Pulmonary: Effort: Pulmonary effort is normal. Breath sounds: Normal breath sounds. Abdominal: General: Abdomen is flat. Palpations: Abdomen is soft. Genitourinary: Comments: Chronic indwelling Jamison catheter Musculoskeletal: Comments: Surgical change from recent left hip surgery Skin: General: Skin is warm and dry. Neurological: General: No focal deficit present. Mental Status: He is alert and oriented to person, place, and time. Psychiatric: Mood and Affect: Mood normal. Behavior: Behavior normal. Last Recorded Vitals There were no vitals taken for this visit. Relevant Results Assessment/Plan Principal Problem: ESRD (end stage renal disease) ([facility]) Chronic kidney disease stage V/ESRD Azotemia Anemia Hypertension Normal anion gap metabolic acidosis Left hip fracture recent with surgery Bilateral hydronephrosis with right stent in place Plan: At this time we will proceed with a tunneled dialysis catheter placement We have also sent a referral to [facility] to start initiation of renal replacement therapy We will get his hepatitis panel while he is here Mallampati grade 2 ASA grade 3 Tiana De León DO documented in this [facility] Work Phone: [phone]) [phone] Nurse Note* Wendy Tristan RN - 04/07/2023 1:52 PM EST Discharge Note: 04/07/2023 1351 Discharged via stretcher by [facility], paperwork packet sent with transporter, personal belongings taken by transporter, no distress noted, no complaints voiced. Adrian PICKARD [facility]11-06-2023 Nurse Note* Wendy Tristan RN - 04/07/2023 1:52 PM EST Discharge Note: 04/07/2023 1351 Discharged via stretcher by [facility] to SNF, paperwork packet sent with transporter, personal belongings taken by transporter, no distress noted, no complaints voiced. Adrian PICKARD * Melida London RN - 04/07/2023 1:10 PM EST Report called to Mavis PICKARD at [facility]. * Kb Wood RN - 04/04/2023 10:31 PM EDT Jamison catheter leaking. Patient refused jamison catheter change stating that this happens when he hasabdominal pressure. * Silva Goddard RN - 04/01/2023 10:00 AM EDT Pt is refusing to allow nurse to change out jamison cath to obtain a urine sample. Pt states it is too Painful due to a recent urology procedure. Pt states that if we want to change the catheter thenwe can do it tomorrow when he is knocked out. MD notified. Pt also is refusing to allow this nurse to assess underside of hip or buttocks. Pt refusing any repositioning or elevating of the head. Edu cation and encouragement given with patient refusing any movement at all. Pt also refusing pain medication so far this shift because it makes him feel dizzy. This nurse offered to premedicate priorto moving or repositioning and educated on pain medication benefits and effects. Pt still refusing any medication or any movement. Will continue to monitor. [facility] Work Phone: [phone]) 729-748411-06-2023 Nurse Note* Melida London RN - 04/07/2023 1:10 PM EST Report called to Mavis PICKARD at [facility]. [facility]11-06-2023 Plan of care note* Care Plan - Melida Lonodn RN - 04/07/2023 12:53 PM EST The patient's goals for the shift include decreased pain by end of shift. The clinical goals for the shift include decreased pain y end of shift. Over the shift, the patient did not make progress toward the following goals. Barriers to progression include . Recommendations to address these barriers include. [facility] Work Phone: [phone]) 888-673411-06-2023 Miscellaneous Notes* Care Plan - Melida London RN - 04/07/2023 12:53 PM EST The patient's goals for the shift include decreased pain by end of shift. The clinical goals for the shift include decreased pain y end of shift. Over the shift, the patient did not make progress toward the following goals. Barriers to progression include . Recommendations to address these barriers include. * Care Plan - Asha Delvalle - 04/07/2023 11:00 AM EST Care Transitions: Patient is medically ready for discharge today per care round discussion this AM. Spoke to Wendy @ [facility] to notify of ADOD today; states they are able to accept patient. Updated progress notes, goldenrod, and discharge summary sent to [facility] via [employer]. Requested HENS be completed by discharge team. Care team to follow for transportation time. Asha Delvalle RN/TCC [id number] Met with patient @ bedside. Notified of discharge transportation time of 1300. Voiced understanding. 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 Asha Delvalle RN/TCC * Care Plan - Tessy Quiroz RN - 04/06/2023 5:42 AM EST The clinical goals for the shift include to have a BM Pt did not have a BM this shift. Pt states he is passing a lot of gas. Oxycodone given with bedtime medications. Pain was controlled throughout shift. Pt rested well through the night * Care Plan - Nan Luque RN - 04/03/2023 6:29 PM EDT Problem: Pain - Adult Goal: Verbalizes/displays adequate comfort level or baseline comfort level Outcome: Progressing Problem: Safety - Adult Goal: Free from fall injury Outcome: Progressing Problem: Discharge Planning Goal: Discharge to home or other facility with appropriate resources Outcome: Progressing Problem: Chronic Conditions and Co-morbidities Goal: Patient's chronic conditions and co-morbidity symptoms are monitored and maintained or improved Outcome: Progressing Problem: Skin Goal: Decreased wound size/increased tissue granulation at next dressing change Outcome: Progressing Goal: Participates in plan/prevention/treatment measures Outcome: Progressing Goal: Prevent/manage excess moisture Outcome: Progressing Goal: Prevent/minimize sheer/friction injuries Outcome: Progressing Goal: Promote/optimize nutrition Outcome: Progressing Goal: Promote skin healing Outcome: Progressing Problem: Pain Goal: Takes deep breaths with improved pain control throughout the shift Outcome: Progressing Goal: Turns in bed with improved pain control throughout the shift Outcome: Progressing Goal: Walks with improved pain control throughout the shift Outcome: Progressing Goal: Performs ADL's with improved pain control throughout shift Outcome: Progressing Goal: Participates in PT with improved pain control throughout the shift Outcome: Progressing Goal: Free from opioid side effects throughout the shift Outcome: Progressing Goal: Free from acute confusion related to pain meds throughout the shift Outcome: Progressing The patient's goals for the shift include decrease pain The clinical goals for the shift include pain control throughout shift Over the shift, the patient did make progress toward the following goals. Barriers to progression include not wanting to move fear of pain. Recommendations to address these barriers include prn pain medication and encouragement to move to heal. * Care Plan - Asha Delvalle - 04/03/2023 9:45 AM EDT Care Transitions: Spoke to patient at bedside concerning accepting SNF and what his FOC is. [facility] and [facility] are able to accept and [facility] can accept with a shared room. Pt voiced he would like to move forward with [facility]. Will update facilities of choice and send updated notes to [facility]. Will initiate the precert process with the team after PT/OT evals are competed. Care team to follow. Asha Delvalle RN/TCC - [phone] Care team notified to start the precert process for SNF insurance approval. Asha Delvalle RN/TCC * Pre-Procedure Note - Judy Ley MD - 04/03/2023 7:23 AM EDT Post op day # 1 left hemiarthroplasty of hip Doing well early post op Pain is an issue DVT proph with ASA Encouraged insentive Instructed post hip precautions. Left hip Dressing VONNIE intact and min drainage NV intact distally Calves NT bilat Breathing unlabored and able to take a deep breath. Encouraged this with coughing for good pulm toilet Xray post op shows hip in an excellent position. * Significant Event - Alisha Oden RRT - 04/03/2023 6:43 AM EDT 7L/min * Care Plan - Vivian Garcias RN - 04/03/2023 5:54 AM EDT The patient's goals for the shift include The clinical goals for the shift include pain control Problem: Pain - Adult Goal: Verbalizes/displays adequate comfort level or baseline comfort level Outcome: Progressing Problem: Safety - Adult Goal: Free from fall injury Outcome: Progressing Problem: Discharge Planning Goal: Discharge to home or other facility with appropriate resources Outcome: Progressing Problem: Chronic Conditions and Co-morbidities Goal: Patient's chronic conditions and co-morbidity symptoms are monitored and maintained or improved Outcome: Progressing Problem: Skin Goal: Decreased wound size/increased tissue granulation at next dressing change Outcome: Progressing Goal: Participates in plan/prevention/treatment measures Outcome: Progressing Goal: Prevent/manage excess moisture Outcome: Progressing Goal: Prevent/minimize sheer/friction injuries Outcome: Progressing Goal: Promote/optimize nutrition Outcome: Progressing Goal: Promote skin healing Outcome: Progressing Problem: Pain Goal: Takes deep breaths with improved pain control throughout the shift Outcome: Progressing Goal: Turns in bed with improved pain control throughout the shift Outcome: Progressing Goal: Walks with improved pain control throughout the shift Outcome: Progressing Goal: Performs ADL's with improved pain control throughout shift Outcome: Progressing Goal: Participates in PT with improved pain control throughout the shift Outcome: Progressing Goal: Free from opioid side effects throughout the shift Outcome: Progressing Goal: Free from acute confusion related to pain meds throughout the shift Outcome: Progressing In bed with eyes closed this shift for most of the night. Respirations even and unlabored. Bipap remains in place and pt. Is functioning with it on./ Denies any pain this shift. Respirations even andunlabored. Call light within reach, will continue to monitor. * Op Note - Judy Ley MD - 04/02/2023 12:35 PM EDT Hip Hemiarthroplasty (L) Operative Note Date: 03/31/2023 - 04/02/2023 OR Location: [facility] OR Name: Genet Booth : 1945, Age: 78 y.o., , Sex: male Diagnosis Pre-op Diagnosis * Closed fracture of left hip, initial encounter ([facility]) [S72.002A] * Obesity, morbid, BMI 40.0-49.9 ([facility]) [E66.01] * Stage 5 chronic kidney disease not on chronic dialysis ([facility]) [N18.5] Post- op Diagnosis * Closed fracture of left hip, initial encounter ([facility]) [S72.002A] * Obesity, morbid, BMI 40.0-49.9 ([facility]) [E66.01] * Stage 5 chronic kidney disease not on chronic dialysis ([facility]) [N18.5] Procedures Hip Hemiarthroplasty 51722 - [place] HEMIARTHROPLASTY HIP PARTIAL Surgeons * Judy Ley - Primary Resident/Fellow/Other Rn Oncology Clinical: Surgeon(s) and Role: Procedure Summary Anesthesia: General ASA: III Anesthesia Staff: Anesthesiologist: Canelo De La Torre MD Estimated Blood Loss: 200 mL Intra-op Medications: Medication Name Total Dose lactated Ringer's infusion Cannot be calculated ceFAZolin in dextrose (iso-os) (Ancef) IVPB 2 g 2 g Anesthesia Record Intraprocedure I/O Totals Intake Ketamine 0.00 mL The total shown is the total volume documented since Anesthesia Start was filed. lactated Ringer's infusion 800.00 mL Total Intake 800 mL Specimen: No specimens collected Staff: Technical Support Representative: Kaylah Iyer RN Scrub Person: Nereyda Philip RN; Edwin Walker RN Drains and/or Catheters: Urethral Catheter (Active) Site Assessment Skin intact 04/02/23 1042 Collection Container Standard drainage bag 04/02/23 1042 Securement Method Securing device (Describe) 04/02/23 1042 Reason for Continuing Urinary Catheterization chronic urinary retention 04/02/23 0749 Output (mL) 700 mL 04/02/23 0349 $ Urethral Catheter Charge Indwelling cath 03/31/23 1545 Tourniquet Times: Implants: Implants Type Name Action Serial No. Joint SLEEVE, V40 +0MM STD TAPER UNITRAX - [id number] Implanted Joint HEAD, ENDO 52MM UNITRAX MODULAR - [id number] Implanted Joint STEM, FEMUR 132D SZ 6 ACCOLADE II - [id number] Implanted Findings: garden 4 femoral neck fracture Indications: Genet Booth is an 78 y.o. male who is having surgery for Closed fracture of left hip, initial encounter ([facility]) [S72.002A] Obesity, morbid, BMI 40.0-49.9 ([facility]) [E66.01] Stage 5 chronic kidney disease not on chronic dialysis ([facility]) [N18.5]. The patient was seen in the preoperative area. The risks, benefits, complications, treatment options, non-operative alternatives, expected recovery and outcomes were discussed with the patient. The possibilities of reaction to medication, pulmonary aspiration, injury to surrounding structures, bleeding, recurrent infection, the need for additional procedures, failure to diagnose a condition, and creating a complication requiring transfusion or operation were discussed with the patient. The patient concurred with the proposed plan, giving informed consent. The site of surgery was properly noted/marked if necessary per policy. The patient has been actively warmed in preoperative area. Preopera tive antibiotics have been ordered and given within 1 hours of incision. Venous thrombosis prophylaxis have been ordered including unilateral sequential compression device Procedure Details: Indications: The patient has a femoral neck fracture of the hip. The patient wishes to proceed with hip hemiarthroplasty. The procedure was explained along with the risks, benefitsalternatives being reviewed. Potential risks including but not limited to infection, neurovascular complication, instability, loosening, wear, limb length inequality, DVT along with the potential need for reoperation and/or revision surgery were all discussed with the patient and they consented to the procedure. Procedure: The patient was brought to the operative suite. A General anesthetic was administered per anesthesia. The patient was then placed in the lateral decubitus position, surgical side up. An axillary rollwas placed. Pegs were placed in the pegboard and padded. The down leg was well-padded at the knee and ankle. A U drape was used to exclude the operative hip and lower extremity from the rest of the body. The hip and lower extremity was then sterilely prepped with ChloraPrep then sterilely draped inthe usual manner. Timeout was performed, the patient was then identified, the site, laterality and procedure confirmed along with the administration of the antibiotics. I began by identifying landmarks. I made a posterior lateral incision centered over the greater trochanter for a posterior approach to the hip. Dissection was carried down carefully through skin and subcutaneous tissues. Some of the vessels in the fatty tissue were cauterized. I identified the iliotibial band and the gluteus keyla. An incision was made through the iliotibial band and the gluteus keyla insertion was palpated posterior to the incision. The incision was then carried through the superficial fascia of the gluteus. A Charnley retractor was then placed. I then identified the gluteus medius And the piriformis. A Cobra retractor was placed under the gluteus medius and minimus exposing the posterior capsule of the hip. The piriformis was identified and tagged and removed from the piriformis fossa. This was retracted posteriorly. The external rotators were then tagged and removed from their insertion and retracted posteriorly helping to protect the sciatic nerve. The capsulewas then teed. Each corner of the capsule was tagged with a 5 Ethibond suture. The hip fracture wasthen identified. Using the corkscrew the hip ball was removed. This was measured on the back table.I began measuring the actual acetabulum with the measuring ball starting 1 under the measurement for the hip. The correct sized endoprosthesis was chosen. The femoral neck was then cut using the guide to determine the orientation. I then used a Mary tofind the canal. I then used the T-handle canal finder. I then used sequential broaches up to the correct size. This had good rotational stability As well as appropriate distal fit.. I then infiltrated the soft tissues with a mixture of ropivacaine and Toradol. Trial reductions were performed and the correct neck length was chosen. The hip was found to be very stable. There was no push pull. I was able to flex to 90 degrees and extend past neutral. With thehip flexed at 90 degrees I was able to adduct to 45 degrees and internally rotate past 45 degrees and the hip remained anatomically reduced within the acetabulum. The knee and the leg lengths were felt to be equal. At that point I thoroughly copiously irrigated with normal saline. Attention was turned to closure.The capsule was repaired with #1 Ethibond. Drill holes were made in the posterior aspect of the greater trochanter. The capsular repair sutures and the external rotators were brought through the drill holes and then tied over top. This provided a robust posterior capsular repair. The wound was copiously irrigated again. I then closed the fascia los with number#2 Ortho cord. This was done in [id number] fashion. The gluteus keyla was run with a another #2 Ortho cord. The wound was then copiously irrigated again. 2-0 Vicryl sutures were then used to close the subcutaneous tissues. Surgical ema were used for the skin. A vonnie closed suction drain was then applied. Care was taken to make sure that all of the edges of the vonnie drain were watertight. The drain was started and an appropriate designation was obtained that the vonnie was working properly. The patient procedure well. There were no apparent complications. The patient was transferred from the operating room to the recovery room and was in stable condition. Implants: Castaner Accolade 2 #6 Zero neck length 52 mm endoprosthesis. Estimated blood loss: 200 cc. Complications: None Complications: None; patient tolerated the procedure well. Disposition: PACU - hemodynamically stable. Condition: stable Additional Details: none Attending Attestation: Judy Ley * Care Plan - Tessy Quiroz RN - 04/02/2023 5:55 AM EDT The patient's goals for the shift include The clinical goals for the shift include pain control Pt pain controlled with pain medication this shift. Pt been NPO since midnight for surgery today. * Care Plan - Lavelle Salcedo RN - 04/01/2023 6:03 AM EDT The patient's goals for the shift include The clinical goals for the shift include pain control Over the shift, the patient did make some progress to control pain. [facility] Work Phone: [phone]) [phone] Hospital course Narrative* Giovanni Pardo MD - 04/07/2023 11:05 AM EST Discharge Diagnosis Closed fracture of left hip, initial encounter ([facility]) Issues Requiring Follow-Up Ortho and nephrology Discharge Meds Your medication list START taking these medications Instructions Last Dose Given Next Dose Due aspirin 325 mg EC tablet Take 1 tablet (325 mg) by mouth 2 times a day. oxyCODONE 5 mg immediate release tablet Commonly known as: Roxicodone Take 1 tablet (5 mg) by mouth every 6 hours if needed for moderate pain (4 - 6). oxygen gas therapy Commonly known as: O2 Inhale 1 each once every 24 hours. predniSONE 20 mg tablet Commonly known as: Deltasone Start taking on: April 08, 2023 Notes to patient: PLEASE TAKE WITH FOOD OR MILK Take 1 tablet (20 mg) by mouth once daily for 4 days. Do not start before April 08, 2023. sodium bicarbonate 650 mg tablet Take 2 tablets (1,300 mg) by mouth 2 times a day. CONTINUE taking these medications Instructions Last Dose Given Next Dose Due allopurinol 100 mg tablet Commonly known as: Zyloprim calcitriol 0.25 mcg capsule Commonly known as: Rocaltrol FeroSuL 325 (65 Fe) MG tablet Generic drug: ferrous sulfate Notes to patient: PLEASE TAKE WITH A MEAL isosorbide mononitrate ER 30 mg 24 hr tablet Commonly known as: Imdur multivitamin tablet oxybutynin 5 mg tablet Commonly known as: Ditropan Procrit 20,000 unit/mL injection Generic drug: epoetin kacie Synthroid 88 mcg tablet Generic drug: levothyroxine Where to Get Your Medications These medications were sent to [id number] - [place], [place] - [address] [facility] [address] aspirin 325 mg EC tablet predniSONE 20 mg tablet sodium bicarbonate 650 mg tablet You can get these medications from any pharmacy Bring a paper prescription for each of these medications oxyCODONE 5 mg immediate release tablet Information about where to get these medications is not yet available Ask your nurse or doctor about these medications oxygen gas therapy Test Results Pending At Discharge Pending Labs No current pending labs. Hospital Course 78 y.o. male with past medical history of hypertension, hyperlipidemia, pneumonia, UTI, chronic Jamison, follows with Dr. Maldonado, chronic Jamison was changed 2-1/2 weeks ago, gout, acid reflux, hepatitis C,CKD, and prostate cancer(was treated with radiation 14 years ago) presenting to ER by squad post fall. At the ER blood work is significant for BUN 77, creatinine 6.46, GFR 8, WBC 15.3, and absolute neutrophils 13.55. Chest x-ray revealed left basilar airspace consolidation. Left hip x-ray positive for left femoral neck fracture. admitted for left hip fracture, and CHLOE on CKD V. With Ortho. Surgery and nephrology on consult. #Closed fracture of left hip -Orthopedic surgery following - s/p surgery day # 5 left hemiarthroplasty of hip -Pain management patient doing well -Bowel regimen to prevent constipation-ileus - supportive care now better , tolerating diet Remains at high risk PT and ambulate #Acute Kidney Injury on CKD -Nephrology consulted recommendations appreciated-stable -Strict I&Os, daily weight done -jamison not changed in ED; however, patient not allowing RN to change d/t recent procedure and states it was changed 2 weeks ago Consider HD in near future and to follow nephrology as outpatient also #Sinusitis -Flonase nasal spray ordered -off Abx, pneumonia less likely clinically -Patient is on O2 NC 2 L we will continue at residential and wean off -Bronchodilators # gout prednisone, improving Pertinent Physical Exam At Time of Discharge Physical Exam General Appearance: awake and alert, AAOx3, NAD HEENT: nc/at, eomi, perrla, moist mucous membranes Resp: ctab; no wheezing, rhonchi, or rales, normal respiratory effort Cardio: rrr. S1s2 GI: soft, ntnd, BS+ : jamison Ext: no edema, 2+ pulses b/l LLE hip surgery site dressing clean Outpatient Follow-Up Future Appointments Date Time Provider Department Center 06/10/2023 1:00 PM Tiana De León DO [id number] [facility] Time to dc > 35 mins Giovanni Pardo MD documented in this [facility] Work Phone: [phone]) 992-826411-06-2023 Hospital Discharge instructions* Discharge Instr - Activity* Wendy Tristan RN - 04/07/2023 11:05 AM EST Weight bearing as tolerates * Discharge Instr - Diet* Wendy Tristan RN - 04/07/2023 11:05 AM EST Regular Diet * Discharge Instr - Other Orders* Wendy Tristan RN - 04/07/2023 11:11 AM EST Images from the original note were not included. Please start the process of renal replacement therapy as outpatient with Dr. Tiana De León. Currently has Mepilex to buttocks, please consult wound care team. VONNIE dressing to left hip. Bipolar Hip Replacement Discharge Instructions About this topic The hip joint is a ball and socket joint. The ball part of the joint is the top part of the thigh bone. The socket is a part of the pelvic bone. The ball fits into the socket in the pelvic bonecalled the acetabulum. This gives the name ball and socket joint. Tough tissue that is flexible, called cartilage, covers the parts of the joint in a normal hip. The cartilage lets the hip glide easily. The cartilage can become worn and cause bone to rub on other bone. This rubbing often leads to pain, stiffness, and trouble walking. Sometimes, drugs and exercises can help you with the pain. Whena hip joint stops working, you may need hip joint replacement (arthroplasty) surgery. What care is needed at home? Ask your doctor what you need to do when you go home. Make sure you ask questions if you do not understand what the doctor says. This way you will know what you need to do. Talk to your doctor about how to care for your cut site. Ask your doctor about: When you should change your bandages When you may take a bath or shower If you need to be careful with lifting things over 10 pounds (4.5 kg) When you may go back to your normal activities like work or driving Be sure to wash your hands before and after touching your wound or dressing. Have someone to drive and help you at home to help for the first few weeks. Keep your house safe and clutter-free. This will make it safer for you to walk. You may need to put on the long, tight socks given in the hospital while you sleep. Use your walker or crutches when you move around. Keep your weight off the operated leg as much as possible until your doctor or physical therapist says it is okay to put a small amount of weight on it. What follow-up care is needed? You may need to have more therapy before going home. A short stay in rehab or a shelter facility will often help. You may need to have a nurse come visit you at home to check on you. Physical therapists can also come to your home to help with exercises. Your doctor may ask you to make visits to the office to check on your progress. Be sure to keep these visits. If you have stitches or ema, you will need to have them taken out. Your doctor will often want to do this in 1 to 2 weeks. You may need to keep doing therapy at an outpatient clinic. What drugs may be needed? The doctor may order drugs to: Help with pain Prevent blood clots Prevent infection Help with other problems you may have like hard stools Will physical activity be limited? You may need to use a walker or crutches to help you walk. Follow your doctor's orders on how much weight you can put on the operated leg. This can range from no weight-bearing to full weight-bearing. You may not be allowed to do certain hip movements right after the surgery. These can cause the hipjoint to move out of the socket. Your doctor may suggest you follow these hip precautions: Keep your legs from turning in or out. Avoid moving your operated leg backwards and out to the side. Avoid crossing your legs or ankles. Avoid taking long steps when walking. Avoid kneeling on your operated leg. If you have to kneel, then kneel on both knees so the operatedhip is not pushed back. Avoid the straddling position. You will be able to do more as you get stronger. Your physical therapist can talk with you about a walking program. Most often, you should limit stair climbing to one flight of stairs per day when you first return home. Ask your doctor when you can have sex. Once your doctor tells you that it is OK, do not put full weight on your hip joint. To keep stress off the joint, lie on your back and have your partner supporthis or her weight. What problems could happen? Dislocation ? it is important to keep from doing some movements. These can cause the hip joint to move out of the socket. This is less common than with a traditional approach. Ask your doctor what movements are safe for you. Blood clot or DVT (deep vein thrombosis) ? To avoid these, your doctor may ask you to do ankle pumping exercises. Your doctor also may order blood thinning drugs or compression stockings. Lung infection ? Taking deep breaths can help keep you from getting a lung infection. Take at least10 deep breaths each hour while you are awake. Infection ? Be sure to take all drugs as ordered. Other problems during or after surgery may include broken bones, nerve or blood vessel damage, bleeding, the chance of the leg not being the same length as the other leg, or loosening of the prosthesis. When do I need to call the doctor? Sudden shortness of breath or a sudden onset of chest pain could be a sign that a blood clot has traveled to your lungs. Go to the ER right away. Signs of infection. These include a fever of 100.4 F (38 C) or higher, chills, very bad sore throat, ear or sinus pain, cough, more sputum or change in color of sputum, pain with passing urine, mouthsores, or wound that will not heal. Signs of wound infection. These include swelling, redness, warmth around the wound; too much pain when touched; yellowish, greenish, or bloody discharge; foul smell coming from the cut site; cut siteopens up. More pain in your hip More swelling in your hip Hip feels like it popped out of place Helpful tips For sleeping: If you sleep on your side, have your operated leg on the bottom. Use a pillow between legs when rolling or when sleeping on your side. If you lie on your side when sleeping, be sure to put a pillow between your legs to keep them from crossing. If you lie on your back, put a pillow or rolled towel on either side of your operated leg.This may help keep it from rolling inward or outward. For walking and moving about: If you step backwards, lead with the leg you did not have surgery on and take small steps. When going up and down steps, always go up with your stronger leg first. When going down steps, lead with your operated leg. Do not turn (pivot) using your operated leg. Put a small elizabet pack around your waist with items such as phone numbers, phone, and notepad. In the bathroom: A raised toilet seat in the bathroom can help you to get up and down easier. For bathing, a grab bar and tub bench may be helpful. Grab bars near the toilet may be helpful. Around the house: Avoid sitting in low chairs. Higher chairs with firm cushions will be easier to get out of. When getting up from any surface, push up on the chair, bed, or toilet seat. Then, grab the walker once you are standing. Pulling up on the walker may cause it to tip and you to fall. Make sure all hand rails are secure in your home. Using special tools, like a detail sergeant, long-handled sponge, sock aid, or long- handled shoe horn, may make your daily activities easier. Take care when walking to avoid throw rugs and objects on the floor. Keep floor free of items that you can trip on. If you have a pet, take care to avoid tripping over the pet. Teach Back: Helping You Understand The Teach Back Method helps you understand the information we are giving you. After you talk with the staff, tell them in your own words what you learned. This helps to make sure the staff has described each thing clearly. It also helps to explain things that may have been confusing. Before going home, make sure you can do these: I can tell you about my procedure. I can tell you how to care for my cut site. I can tell you what changes I need to make with my activities. I can tell you what I will do if I have shortness of breath, chest pain, hip pain or swelling, or signs of a wound infection. Last Reviewed Date 2019-11-17 documented in this [facility] Work Phone: [phone]) 490-387411-06-2023 History of Present illness Narrative* Estella Holley RDN, LD - 04/07/2023 11:00 AM EST Nutrition Assessment Note Nutrition Assessment Reason for Assessment Reason for Assessment: Dietitian discretion History: Food and Nutrient History Energy Intake: Good > 75 % Food and Nutrient History: accepting full liq diet/adv to regular today; home B: cereal, eggs L: meals on wheels delivery D: frozen dinner; preferred beverages Water, rootbeer (no milk); Vitamin/Herbal Supplement Use: MVI; currently Rx MVI/min, FeSo4 Food and Nutrient Administration History Additional Food and Nutrient Administration History: States he's never been taught a Renal diet;follows No Added Salt, limits steak/removes fat on meat; Note City Comptroller progress note today considering dialysis and reiforced dialyisis center will have RD; Factors Affecting Access to Food and Food / Nutrition Related Supplies Food / Nutrition Program Participation: Participation in governmnent programs (Meals on Wheels delivery for noon meal) Nutrition-Related ADLs and IADLs Physical Ability to Complete Tasks for Meal Preparation: Yes Physical Ability to Self-Feed: Yes Ability to Position Self in Relation to Plate: Yes Ability to Use Adaptive Eating Devices: No Cognitive Ability to Complete Tasks for Meal Preparation: Yes Remembers to Eat: Yes Recalls Eating: Yes Anthropometrics: Height: 180.3 cm (5' 10.98) Weight: 107 kg (235 lb 14.3 oz) BMI (Calculated): 32.91 Weight Change Weight History / % Weight Change: 107kg 04/01; 106 kg 03/31; 108 kg 03/31; 108 kg 06/05; 109.2 12/26 (2% loss) Significant Weight Loss: No IBW/kg (Dietitian Calculated): 78 kg Percent of IBW: 137 % Adjusted Body Weight (kg): 92.5 kg Energy Needs: Calculated Energy Needs Using Equations Height: 180.3 cm (5' 10.98) Temp: 36.7 C (98.1 F) Estimated Energy Needs Total Energy Estimated Needs (kCal): 2313 kCal Total Estimated Energy Need per Day (kCal/kg): 25 kCal/kg Method for Estimating Needs: 25 kcal92.5 kg adjusted body weight Estimated Protein Needs Total Protein Estimated Needs (g): 92.5 g Total Protein Estimated Needs (g/kg): 1 g/kg Type of Protein Needed: oral diet Method for Estimating Needs: 1.0 g/92.5 kg adjusted body weight (CKD5/wound healing) Estimated Fluid Needs Total Fluid Estimated Needs (mL): 2313 mL Total Fluid Estimated Needs (mL/kg): 25 mL/kg Method for Estimating Needs: 1 ml/92.5 kg Adjusted Body weight Weight and Growth Recommendation Recommended Body Mass Index (BMI): 32 Nutrition Focused Physical Findings: Subcutaneous Fat Loss Orbital Fat Pads: Defer (declined due to resident's positioning for L hip/wound and gout pain stated L foot.) Nutrition Diagnosis Malnutrition Diagnosis Patient has Malnutrition Diagnosis: No Patient has Nutrition Diagnosis: Yes Nutrition Diagnosis 1: Obese Diagnosis Status (1): Ongoing Related to (1): high BMI; history high BMI As Evidenced by (1): BMI 32.9; history [id number] noted Nutrition Diagnosis 2: Altered nutrition related to laboratory values Diagnosis Status (2): Ongoing Related to (2): CKD5, hx CKD 4, dx anemia of chronic disease As Evidenced by (2): high BUN, Creatinine, low eGFR; low H/H, iron replacement ordered Additional Assessment Information (2): IV iron ordered 04/05 Nutrition Interventions/Recommendations Nutrition Prescription Individualized Nutrition Prescription Provided for : Adult Regular diet, no salt added; pending dialysis consideration noted Food and/or Nutrient Delivery Interventions Interventions: Meals and snacks Meals and Snacks: Diets modified for specific foods or ingredients Goal: Consumes 75% of diet Additional Interventions: No added salt to foods; fluids limited to estimated needs Nutrition Counseling Goal: Will consume 75% of diet; no added salt, limit fluids to estimated needs Counseling Strategies: Nutrition counseling based on goal setting strategy Goal: Will consuem 75 % of diet; no added salt, limit fluids to estimated needs. Coordination of Nutrition Care by a Nutrition Professional Collaboration and Referral of Nutrition Care: Collaboration by nutrition professional with other providers Nutrition Monitoring and Evaluation Food and Nutrient Related History Amount of Food: Estimated amout of food Criteria: Consume 75% of prescribed diet Body Mass: Body mass index (BMI) Criteria: BMI <=32 Biochemical Data, Medical Tests and Procedures Electrolyte and Renal Panel: Calcium, serum, Chloride, Creatinine, Magnesium, Sodium, Potassium, Phosphorus Criteria: Labs WNL for age, diagnosis and clinical condition Glucose/Endocrine Profile: Glucose, casual Criteria: Labs WNL Nutritional Anemia Profile: Hemoglobin, Hematocrit, Iron, serum, Ferritin, serum, Total iron binding capacity, Transferrin saturation Criteria: Labs WNL for age, diagnosis and clinical condition Follow Up Time Spent (min): 75 minutes Follow up: Provided information on outpatient nutrition therapy services, Provided inpatient RDN contact information Last Date of Nutrition Visit: 04/07/23 Nutrition Follow-Up Needed?: Dietitian to reassess per policy Follow up Comment: note planned discharge and plan follow up with marketing development representative * Tiana De León DO - 04/07/2023 9:34 AM EST Genet Booth is a 78 y.o. male on day 7 of admission presenting with Closed fracture of left hip,initial encounter ([facility]). Subjective Patient seen and examined at the bedside He is resting comfortably in bed He states he is actually feeling a little bit better His pain feels better Has no other major symptoms at this time Plan is to go to [facility] for rehab Objective Vitals 24HR Heart Rate: [87] Temp: [36.1 C (97 F)-36.4 C (97.5 F)] Resp: [18] BP: (123-143)/(60-77) SpO2: [90 %-97 %] Intake/Output last 3 Shifts: Intake/Output Summary (Last 24 hours) at 04/07/2023 0934 Last data filed at 04/07/2023 0300 Gross per 24 hour Intake 300 ml Output 850 ml Net -550 ml Physical Exam Constitutional: Appearance: Normal appearance. HENT: Head: Normocephalic and atraumatic. Right Ear: External ear normal. Left Ear: External ear normal. Nose: Nose normal. Mouth/Throat: Mouth: Mucous membranes are moist. Pharynx: Oropharynx is clear. Eyes: Extraocular Movements: Extraocular movements intact. Conjunctiva/sclera: Conjunctivae normal. Pupils: Pupils are equal, round, and reactive to light. Cardiovascular: Rate and Rhythm: Normal rate and regular rhythm. Pulmonary: Effort: Pulmonary effort is normal. Breath sounds: Normal breath sounds. Abdominal: General: Abdomen is flat. Palpations: Abdomen is soft. Genitourinary: Comments: Jamison catheter in place Musculoskeletal: General: No swelling. Comments: Dressing on left hip Skin: General: Skin is warm and dry. Neurological: General: No focal deficit present. Mental Status: He is alert and oriented to person, place, and time. Psychiatric: Mood and Affect: Mood normal. Behavior: Behavior normal. Scheduled medications allopurinol, 100 mg, oral, Daily aspirin, 325 mg, oral, BID calcitriol, 0.25 mcg, oral, Daily ferrous sulfate, 65 mg of iron, oral, BID influenza, 0.7 mL, intramuscular, During hospitalization fluticasone, 2 spray, Each Nostril, Daily heparin (porcine), 5,000 Units, subcutaneous, q8h [Held by provider] isosorbide mononitrate ER, 30 mg, oral, Daily levothyroxine, 88 mcg, oral, Daily before breakfast melatonin, 3 mg, oral, Daily multivitamin with minerals, 1 tablet, oral, Daily polyethylene glycol, 17 g, oral, Daily predniSONE, 20 mg, oral, Daily psyllium, 1 packet, oral, Daily sodium bicarbonate, 1,300 mg, oral, BID tiZANidine, 2 mg, oral, Once traZODone, 100 mg, oral, Nightly Continuous medications PRN medications PRN medications: acetaminophen OR acetaminophen OR acetaminophen, albuterol, cyclobenzaprine, ondansetron, oxyCODONE, oxygen Relevant Results Assessment/Plan This patient has a urinary catheter Reason for the urinary catheter remaining today? urinary retention/bladder outlet obstruction, acute or chronic Principal Problem: Closed fracture of left hip, initial encounter ([facility]) Active Problems: Stage 5 chronic kidney disease not on chronic dialysis ([facility]) Obesity, morbid, BMI 40.0-49.9 ([facility]) Chronic kidney disease stage V Anemia Hypertension Normal anion gap metabolic acidosis Left hip fracture Bilateral hydronephrosis with right stent in place Plan: At this time he is clinically stable and his blood work is also stable He just underwent surgery recently He really wants to try to hold off on anything new being started currently At this time he does not need emergent dialysis From my standpoint he can be discharged to [facility] I will need to see him in my office within a week and at that time we will plan renal replacement therapy start Continue sodium bicarb and calcitriol as he is on Please call with any further issues or needs Tiana De León DO * Giovanni Pardo MD - 04/06/2023 6:41 PM EST Genet Booth is a 78 y.o. male on day 6 of admission presenting with Closed fracture of left hip,initial encounter ([facility]). Subjective Denies significant complaints or pain, abdomen bloating Encourage incentive spirometry Ileus - better Objective Last Recorded Vitals BP 143/77 Pulse 87 Temp 36.4 C (97.5 F) (Temporal) Resp 18 Wt 107 kg (235 lb 10.8 oz) SpO2 90% Intake/Output last 3 Shifts: Intake/Output Summary (Last 24 hours) at 04/06/2023 1841 Last data filed at 04/05/2023 2040 Gross per 24 hour Intake -- Output 650 ml Net -650 ml Admission Weight Weight: 108 kg (237 lb) (03/31/23 1322) Daily Weight 04/01/23 : 107 kg (235 lb 10.8 oz) Image Results XR abdomen 1 view Narrative: Interpreted By: Alejo De León, STUDY: XR ABDOMEN 1 VIEW INDICATION: Signs/Symptoms:ileus or SBO. COMPARISON: December 31, 2022 ACCESSION NUMBER(S): [id number] ORDERING CLINICIAN: GIOVANNI PARDO FINDINGS: Elevated left hemidiaphragm with similar appearance to prior study with bowel contents overlying the left chest. The bowel-gas pattern is nonspecific with stool throughout the colon. No definite obstruction identified. There is however a large amount of colonic distention. This suggests ileus. Double-J ureterostomy stent seen. Left hip hemiarthroplasty. Impression: Significant colonic dilatation with stool throughout. Findings favor ileus without definite obstruction. Elevated left hemidiaphragm with bowel contents over the chest wall similar prior study Signed by: Alejo De León 04/04/2023 5:46 PM Dictation workstation: [id number] Physical Exam General Appearance: awake and alert, AAOx3, NAD HEENT: nc/at, eomi, perrla, moist mucous membranes Resp: ctab; no wheezing, rhonchi, or rales, normal respiratory effort Cardio: rrr. S1s2 GI: soft, ntnd, BS+ : jamison Ext: no edema, 2+ pulses b/l LLE hip surgery site dressing clean Relevant Results Results for orders placed or performed during the hospital encounter of 03/31/23 (from the past 24 hour(s)) CBC Result Value Ref Range WBC 4.9 4.4 - 11.3 x10*3/uL nRBC 0.0 0.0 - 0.0 /100 WBCs RBC 2.93 (L) 4.50 - 5.90 x10*6/uL Hemoglobin 8.2 (L) 13.5 - 17.5 g/dL Hematocrit 27.9 (L) 41.0 - 52.0 % MCV 95 80 - 100 fL MCH 28.0 26.0 - 34.0 pg MCHC 29.4 (L) 32.0 - 36.0 g/dL RDW 15.1 (H) 11.5 - 14.5 % Platelets 236 150 - 450 x10*3/uL Basic Metabolic Panel Result Value Ref Range Glucose 93 74 - 99 mg/dL Sodium 138 136 - 145 mmol/L Potassium 4.1 3.5 - 5.3 mmol/L Chloride 107 98 - 107 mmol/L Bicarbonate 18 (L) 21 - 32 mmol/L Anion Gap 17 mmol/L Urea Nitrogen 95 (HH) 6 - 23 mg/dL Creatinine 7.49 (H) 0.50 - 1.30 mg/dL eGFR 7 (L) >60 mL/min/1.73m*2 Calcium 8.3 (L) 8.6 - 10.3 mg/dL SARS-CoV-2 RT PCR Result Value Ref Range Coronavirus 2019, PCR Not Detected Not Detected Scheduled medications allopurinol, 100 mg, oral, Daily aspirin, 325 mg, oral, BID calcitriol, 0.25 mcg, oral, Daily ferrous sulfate, 65 mg of iron, oral, BID influenza, 0.7 mL, intramuscular, During hospitalization fluticasone, 2 spray, Each Nostril, Daily heparin (porcine), 5,000 Units, subcutaneous, q8h [Held by provider] isosorbide mononitrate ER, 30 mg, oral, Daily levothyroxine, 88 mcg, oral, Daily before breakfast melatonin, 3 mg, oral, Daily multivitamin with minerals, 1 tablet, oral, Daily polyethylene glycol, 17 g, oral, Daily predniSONE, 20 mg, oral, Daily psyllium, 1 packet, oral, Daily sodium bicarbonate, 1,300 mg, oral, BID tiZANidine, 2 mg, oral, Once traZODone, 100 mg, oral, Nightly Continuous medications PRN medications PRN medications: acetaminophen OR acetaminophen OR acetaminophen, albuterol, cyclobenzaprine, ondansetron, oxyCODONE, oxygen Scheduled medications Continuous medications PRN medications PRN medications: acetaminophen OR acetaminophen OR acetaminophen, albuterol, cyclobenzaprine, ondansetron, oxyCODONE, oxygen Results for orders placed or performed during the hospital encounter of 03/31/23 (from the past 24 hour(s)) CBC Result Value Ref Range WBC 4.9 4.4 - 11.3 x10*3/uL nRBC 0.0 0.0 - 0.0 /100 WBCs RBC 2.93 (L) 4.50 - 5.90 x10*6/uL Hemoglobin 8.2 (L) 13.5 - 17.5 g/dL Hematocrit 27.9 (L) 41.0 - 52.0 % MCV 95 80 - 100 fL MCH 28.0 26.0 - 34.0 pg MCHC 29.4 (L) 32.0 - 36.0 g/dL RDW 15.1 (H) 11.5 - 14.5 % Platelets 236 150 - 450 x10*3/uL Basic Metabolic Panel Result Value Ref Range Glucose 93 74 - 99 mg/dL Sodium 138 136 - 145 mmol/L Potassium 4.1 3.5 - 5.3 mmol/L Chloride 107 98 - 107 mmol/L Bicarbonate 18 (L) 21 - 32 mmol/L Anion Gap 17 mmol/L Urea Nitrogen 95 (HH) 6 - 23 mg/dL Creatinine 7.49 (H) 0.50 - 1.30 mg/dL eGFR 7 (L) >60 mL/min/1.73m*2 Calcium 8.3 (L) 8.6 - 10.3 mg/dL SARS-CoV-2 RT PCR Result Value Ref Range Coronavirus 2019, PCR Not Detected Not Detected Assessment/Plan Principal Problem: Closed fracture of left hip, initial encounter ([facility]) Active Problems: Stage 5 chronic kidney disease not on chronic dialysis ([facility]) Obesity, morbid, BMI 40.0-49.9 ([facility]) Genet Booth is a 78 y.o. male with past medical history of hypertension, hyperlipidemia, pneumonia, UTI, chronic Jamison, follows with Dr. Maldonado, chronic Jamison was changed 2-1/2 weeks ago, gout, acid reflux, hepatitis C, CKD, and prostate cancer(was treated with radiation 14 years ago) presenting toER by squad post fall. At the ER blood work is significant for BUN 77, creatinine 6.46, GFR 8, WBC 15.3, and absolute neutrophils 13.55. Chest x-ray revealed left basilar airspace consolidation. Lefthip x-ray positive for left femoral neck fracture. admitted for left hip fracture, and CHLOE on CKD V. With Ortho. Surgery and nephrology on consult. #Closed fracture of left hip -Orthopedic surgery following - s/p surgery day # 4 left hemiarthroplasty of hip -Pain management -Bowel regimen to prevent constipation-ileus - supportive care PT and ambulate #Acute Kidney Injury on CKD -Nephrology consulted recommendations appreciated-stable -Strict I&Os, daily weight -jamison not changed in ED; however, patient not allowing RN to change d/t recent procedure and states it was changed 2 weeks ago Consider HD in near future #Sinusitis -Flonase nasal spray ordered -off Abx, pneumonia less likely clinically -Patient is on O2 NC 2 L -Bronchodilators # gout prednisone Giovanni Pardo MD * Jeannette Khan [employer]CH[employer] - 04/06/2023 12:53 PM EST Physical Therapy Physical Therapy Treatment Patient Name: Genet Booth Today's Date: 04/06/2023 Time Calculation Start Time: 813 Stop Time: 825 Time Calculation (min): 12 min Assessment/Plan Assessment Comment: This session patient was still anticipating pain but was able to assist more inbed mobility and transfers. Needed encouragement to ambulated and he was able to demo apprpriate technique with turning. Several verbal cues needed for compliance with hip preacutions during STS transfer. Cont with education and starengthening to allow improved I with mobility and compliance with THR precautions. End of Session Patient Position: Alarm on, Up in chair PT Plan Inpatient/Swing Bed or Outpatient: Inpatient PT Plan Treatment/Interventions: Bed mobility, Transfer training, Gait training, Stair training, Balance training, Neuromuscular re-education, Strengthening, Endurance training, Range of motion, Therapeutic exercise, Therapeutic activity, Home exercise program PT Plan: Skilled PT PT Frequency: Daily PT Discharge Recommendations: Moderate intensity level of continued care PT Recommended Transfer Status: Assist x2 General Visit Information: Subjective He reports improved ease with bed mobility and transfers. He could not verbally recall hip precautions. Precautions: Precautions Hearing/Visual Limitations: WFL LE Weight Bearing Status: Weight Bearing as Tolerated (L LE) Post-Surgical Precautions: Left hip precautions Precautions Comment: Needs reinforcement with instruction Vital Signs: Vital Signs Heart Rate: 86 SpO2: 95 % Objective Pain: Pain Assessment Pain Assessment: 0-10 Pain Score: 5 - Moderate pain Pain Type: Surgical pain Pain Location: Hip Pain Orientation: Left Cognition: Cognition Overall Cognitive Status: Within Functional Limits Orientation Level: Oriented X4 Postural Control: Extremity/Trunk Assessments: Activity Tolerance: Treatments: Bed Mobility Bed Mobility: Yes Bed Mobility 1 Bed Mobility 1: Supine to sitting Level of Assistance 1: Moderate assistance (of 2 person) Ambulation/Gait Training Ambulation/Gait Training Performed: Yes Ambulation/Gait Training 1 Surface 1: Level tile Device 1: Rolling walker Gait Support Devices: Gait belt Assistance 1: Minimum assistance Quality of Gait 1: (Demos decreased stance time , speed , step length and push off on L LE) Comments/Distance (ft) 1: 20' Outcome Measures: [facility] Basic Mobility Turning from your back to your side while in a flat bed without using bedrails: A little Moving from lying on your back to sitting on the side of a flat bed without using bedrails: A lot Moving to and from bed to chair (including a wheelchair): A little Standing up from a chair using your arms (e.g. wheelchair or bedside chair): A little To walk in hospital room: A little Climbing 3-5 steps with railing: A lot Basic Mobility - Total Score: 16 Education Documentation Precautions, taught by Jeannette Khan PTA at 04/06/2023 12:52 PM. Learner: Patient Readiness: Acceptance Method: Explanation Response: Needs Reinforcement Mobility Training, taught by Jeannette Khan PTA at 04/06/2023 12:52 PM. Learner: Patient Readiness: Acceptance Method: Explanation Response: Needs Reinforcement Education Comments No comments found. OP EDUCATION: Encounter Problems Encounter Problems (Active) PT Problem Pt will demonstrate sup > sit and sit > sup bed mobility mod I (Progressing) Start: 04/03/23 Expected End: 04/17/23 Pt will demo sit > stand and stand > sit transfer with ww and mod I (Progressing) Start: 04/03/23 Expected End: 04/17/23 Pt will ambulate 25' with ww and mod I, without LOB (Progressing) Start: 04/03/23 Expected End: 04/17/23 Pt to verbalize and demo understanding of posterior hip precautions (Progressing) Start: 04/03/23 Expected End: 04/17/23 Pain - Adult * Giovanni Pardo MD - 04/05/2023 6:13 PM EDT Genet Booth is a 78 y.o. male on day 5 of admission presenting with Closed fracture of left hip,initial encounter ([facility]). Subjective Denies significant complaints or pain, abdomen bloating Encourage incentive spirometry Ileus Objective Last Recorded Vitals BP 178/73 Pulse 84 Temp 36.7 C (98.1 F) (Temporal) Resp 20 Wt 107 kg (235 lb 10.8 oz) SpO2 91% Intake/Output last 3 Shifts: Intake/Output Summary (Last 24 hours) at 04/05/2023 1813 Last data filed at 04/05/2023 1310 Gross per 24 hour Intake 100 ml Output 200 ml Net -100 ml Admission Weight Weight: 108 kg (237 lb) (03/31/23 1322) Daily Weight 04/01/23 : 107 kg (235 lb 10.8 oz) Image Results XR abdomen 1 view Narrative: Interpreted By: Alejo De León, STUDY: XR ABDOMEN 1 VIEW INDICATION: Signs/Symptoms:ileus or SBO. COMPARISON: December 31, 2022 ACCESSION NUMBER(S): [id number] ORDERING CLINICIAN: GIOVANNI PARDO FINDINGS: Elevated left hemidiaphragm with similar appearance to prior study with bowel contents overlying the left chest. The bowel-gas pattern is nonspecific with stool throughout the colon. No definite obstruction identified. There is however a large amount of colonic distention. This suggests ileus. Double-J ureterostomy stent seen. Left hip hemiarthroplasty. Impression: Significant colonic dilatation with stool throughout. Findings favor ileus without definite obstruction. Elevated left hemidiaphragm with bowel contents over the chest wall similar prior study Signed by: Alejo De León 04/04/2023 5:46 PM Dictation workstation: [id number] Physical Exam General Appearance: awake and alert, AAOx3, NAD HEENT: nc/at, eomi, perrla, moist mucous membranes Resp: ctab; no wheezing, rhonchi, or rales, normal respiratory effort Cardio: rrr. S1s2 GI: soft, ntnd, BS+ : jamison Ext: no edema, 2+ pulses b/l LLE hip surgery site dressing clean Relevant Results No results found for this or any previous visit (from the past 24 hour(s)). Scheduled medications allopurinol, 100 mg, oral, Daily aspirin, 325 mg, oral, BID calcitriol, 0.25 mcg, oral, Daily ferrous sulfate, 65 mg of iron, oral, BID influenza, 0.7 mL, intramuscular, During hospitalization fluticasone, 2 spray, Each Nostril, Daily heparin (porcine), 5,000 Units, subcutaneous, q8h [Held by provider] isosorbide mononitrate ER, 30 mg, oral, Daily levothyroxine, 88 mcg, oral, Daily before breakfast melatonin, 3 mg, oral, Daily multivitamin with minerals, 1 tablet, oral, Daily polyethylene glycol, 17 g, oral, Daily psyllium, 1 packet, oral, Daily sodium bicarbonate, 1,300 mg, oral, BID tiZANidine, 2 mg, oral, Once traZODone, 100 mg, oral, Nightly Continuous medications PRN medications PRN medications: acetaminophen OR acetaminophen OR acetaminophen, albuterol, cyclobenzaprine, ondansetron, oxyCODONE, oxygen Scheduled medications Continuous medications PRN medications PRN medications: acetaminophen OR acetaminophen OR acetaminophen, albuterol, cyclobenzaprine, ondansetron, oxyCODONE, oxygen No results found for this or any previous visit (from the past 24 hour(s)). Assessment/Plan Principal Problem: Closed fracture of left hip, initial encounter ([facility]) Active Problems: Stage 5 chronic kidney disease not on chronic dialysis ([facility]) Obesity, morbid, BMI 40.0-49.9 ([facility]) Genet Booth is a 78 y.o. male with past medical history of hypertension, hyperlipidemia, pneumonia, UTI, chronic Jamison, follows with Dr. Maldonado, chronic Jamison was changed 2-1/2 weeks ago, gout, acid reflux, hepatitis C, CKD, and prostate cancer(was treated with radiation 14 years ago) presenting toER by squad post fall. At the ER blood work is significant for BUN 77, creatinine 6.46, GFR 8, WBC 15.3, and absolute neutrophils 13.55. Chest x-ray revealed left basilar airspace consolidation. [facility] x-ray positive for left femoral neck fracture. admitted for left hip fracture, and CHLOE on CKD V. With Ortho. Surgery and nephrology on consult. #Closed fracture of left hip -Orthopedic surgery following - s/p surgery day # 3 left hemiarthroplasty of hip -Pain management -Bowel regimen to prevent constipation-ileus - supportive care PT and ambulate #Acute Kidney Injury on CKD -Nephrology consulted recommendations appreciated-stable -Strict I&Os, daily weight -jamison not changed in ED; however, patient not allowing RN to change d/t recent procedure and states it was changed 2 weeks ago Consider HD in near future #Sinusitis -Flonase nasal spray ordered -off Abx, pneumonia less likely clinically -Patient is on O2 NC 2 L -Bronchodilators Giovanni Pardo MD * Jeannette Khan, [employer] - 04/05/2023 12:44 PM EDT Physical Therapy Physical Therapy Treatment Patient Name: Genet Booth Today's Date: 04/05/2023 Time Calculation Start Time: 948 Stop Time: 1022 Time Calculation (min): 34 min Assessment/Plan Assessment Comment: This session he was able to actively participate more during transfers. He did not follow hip precautions and required several cues during session. Hip book given to patient and reviewed. He was able to ambulate this session but required encouragement as very fearful and anticipating pain. He demo'd decreased stance time , push off, and step length on L LE. Will cont with strengthening and gait training to allow improved I and ease with functional transfers and ambulation. End of Session Patient Position: Alarm on, Up in chair PT Plan Inpatient/Swing Bed or Outpatient: Inpatient PT Plan Treatment/Interventions: Bed mobility, Transfer training, Gait training, Stair training, Balance training, Neuromuscular re-education, Strengthening, Endurance training, Range of motion, Therapeutic exercise, Therapeutic activity, Home exercise program PT Plan: Skilled PT PT Frequency: Daily PT Discharge Recommendations: Moderate intensity level of continued care PT Recommended Transfer Status: Assist x2 General Visit Information: Subjective He voices fear of pain with activity but did agree to transfer to chair and a complete asmall walk in room. He could not verbally recall hip precautions. Rates his L hip pain 4/10 at restand 6/10 with w-dolores. Precautions: Precautions Hearing/Visual Limitations: WFL LE Weight Bearing Status: Weight Bearing as Tolerated (L LE) Post-Surgical Precautions: Left hip precautions Precautions Comment: Needs reinforcement with instruction Vital Signs: Vital Signs Heart Rate: 101 SpO2: 93 % Objective Pain: Pain Assessment Pain Assessment: 0-10 Pain Score: (6/10 with w-dolores 4/10 at rest) Pain Type: Surgical pain Pain Location: Hip Pain Orientation: Left Cognition: Cognition Overall Cognitive Status: Within Functional Limits Postural Control: Extremity/Trunk Assessments: Activity Tolerance: Treatments: Therapeutic Exercise Therapeutic Exercise Performed: Yes Therapeutic Exercise Activity 1: AP Therapeutic Exercise Activity 2: Resisted DF/PF Therapeutic Exercise Activity 3: Heel Slides Therapeutic Exercise Activity 4: SAQ Therapeutic Exercise Activity 5: Hip Abd/Add Therapeutic Exercise Activity 6: Q sets Therapeutic Exercise Activity 7: LAQ Therapeutic Exercise Activity 8: HSC Bed Mobility Bed Mobility: Yes Bed Mobility 1 Bed Mobility 1: Supine to sitting Level of Assistance 1: Moderate assistance (of 2 person using draw sheet to assist) Ambulation/Gait Training Ambulation/Gait Training Performed: Yes Ambulation/Gait Training 1 Surface 1: Level tile Device 1: Rolling walker Gait Support Devices: Gait belt Assistance 1: Contact guard Comments/Distance (ft) 1: 20' Transfers Transfer: Yes Transfer 1 Transfer From 1: Bed to Technique 1: Sit to stand Transfer Device 1: Walker, Gait belt Transfer Level of Assistance 1: Minimum assistance (of 2 person) Transfers 2 Transfer to 2: Chair with arms Technique 2: Stand to sit Transfer Device 2: Walker Transfer Level of Assistance 2: Contact guard Outcome Measures: [facility] Basic Mobility Turning from your back to your side while in a flat bed without using bedrails: A little Moving from lying on your back to sitting on the side of a flat bed without using bedrails: A lot Moving to and from bed to chair (including a wheelchair): A lot Standing up from a chair using your arms (e.g. wheelchair or bedside chair): A little To walk in hospital room: A little Climbing 3-5 steps with railing: Total Basic Mobility - Total Score: 14 Education Documentation Precautions, taught by Jeannette Khan PTA at 04/05/2023 12:42 PM. Learner: Patient Readiness: Eager Method: Explanation Response: Needs Reinforcement Mobility Training, taught by Jeannette Khan PTA at 04/05/2023 12:42 PM. Learner: Patient Readiness: Eager Method: Explanation Response: Needs Reinforcement Education Comments No comments found. OP EDUCATION: Encounter Problems Encounter Problems (Active) PT Problem Pt will demonstrate sup > sit and sit > sup bed mobility mod I (Progressing) Start: 04/03/23 Expected End: 04/17/23 Pt will demo sit > stand and stand > sit transfer with ww and mod I (Progressing) Start: 04/03/23 Expected End: 04/17/23 Pt will ambulate 25' with ww and mod I, without LOB (Progressing) Start: 04/03/23 Expected End: 04/17/23 Pt to verbalize and demo understanding of posterior hip precautions (Progressing) Start: 04/03/23 Expected End: 04/17/23 Pain - Adult * Tiana Mitchell Roddy, DO - 04/05/2023 10:37 AM EDT Genet Booth is a 78 y.o. male on day 5 of admission presenting with Closed fracture of left hip,initial encounter ([facility]). Subjective Patient seen and examined at the bedside this morning He is getting up with physical therapy and standing a little bit better Ambulating a little bit better with a walker Continues to complain of left hip pain Objective Vitals 24HR Heart Rate: [89-101] Temp: [35.8 C (96.4 F)-36.8 C (98.2 F)] Resp: [18-20] BP: (140-164)/(74-78) SpO2: [91 %-98 %] Intake/Output last 3 Shifts: Intake/Output Summary (Last 24 hours) at 04/05/2023 1037 Last data filed at 04/05/2023 0000 Gross per 24 hour Intake -- Output 700 ml Net -700 ml Physical Exam Constitutional: Appearance: Normal appearance. HENT: Head: Normocephalic and atraumatic. Right Ear: External ear normal. Left Ear: External ear normal. Nose: Nose normal. Mouth/Throat: Mouth: Mucous membranes are moist. Pharynx: Oropharynx is clear. Eyes: Extraocular Movements: Extraocular movements intact. Conjunctiva/sclera: Conjunctivae normal. Pupils: Pupils are equal, round, and reactive to light. Cardiovascular: Rate and Rhythm: Normal rate and regular rhythm. Pulmonary: Effort: Pulmonary effort is normal. Breath sounds: Normal breath sounds. Abdominal: General: Abdomen is flat. Palpations: Abdomen is soft. Genitourinary: Comments: Jamison catheter in place Musculoskeletal: General: No swelling. Comments: Dressing on left hip Skin: General: Skin is warm and dry. Neurological: General: No focal deficit present. Mental Status: He is alert and oriented to person, place, and time. Psychiatric: Mood and Affect: Mood normal. Behavior: Behavior normal. Relevant Results Assessment/Plan This patient has a urinary catheter Reason for the urinary catheter remaining today? urinary retention/bladder outlet obstruction, acute or chronic Principal Problem: Closed fracture of left hip, initial encounter ([facility]) Active Problems: Stage 5 chronic kidney disease not on chronic dialysis ([facility]) Obesity, morbid, BMI 40.0-49.9 ([facility]) Chronic kidney disease stage V Anemia Hypertension Normal anion gap metabolic acidosis Left hip fracture Bilateral hydronephrosis with right stent in place Plan: At this time his renal function continues to be quite advanced We are likely going to have to discuss more in detail starting renal replacement therapy in the near future This can be done either here or as an outpatient If he is ready to go to rehab then from my standpoint he can go and I can start the process of his renal replacement therapy as an outpatient If he continues to be here on Friday then I will discuss with him more in detail possibly starting the process I will give him a dose of IV iron I will give him a dose of darbepoetin Tiana De León DO * Giovanni Pardo MD - 04/04/2023 6:00 PM EDT Genet Booth is a 78 y.o. male on day 4 of admission presenting with Closed fracture of left hip,initial encounter ([facility]). Subjective Denies significant complaints or pain, abdomen bloating Encourage incentive spirometry No urgent need for renal replacement therapy Objective Last Recorded Vitals BP 140/78 (BP Location: Left arm, Patient Position: Sitting) Pulse 101 Temp 35.8 C (96.4 F) (Temporal) Resp 18 Wt 107 kg (235 lb 10.8 oz) SpO2 98% Intake/Output last 3 Shifts: Intake/Output Summary (Last 24 hours) at 04/04/2023 1800 Last data filed at 04/04/2023 1700 Gross per 24 hour Intake -- Output 1750 ml Net -1750 ml Admission Weight Weight: 108 kg (237 lb) (03/31/23 1322) Daily Weight 04/01/23 : 107 kg (235 lb 10.8 oz) Image Results XR abdomen 1 view Narrative: Interpreted By: Alejo De León, STUDY: XR ABDOMEN 1 VIEW INDICATION: Signs/Symptoms:ileus or SBO. COMPARISON: December 31, 2022 ACCESSION NUMBER(S): [id number] ORDERING CLINICIAN: GIOVANNI PARDO FINDINGS: Elevated left hemidiaphragm with similar appearance to prior study with bowel contents overlying the left chest. The bowel-gas pattern is nonspecific with stool throughout the colon. No definite obstruction identified. There is however a large amount of colonic distention. This suggests ileus. Double-J ureterostomy stent seen. Left hip hemiarthroplasty. Impression: Significant colonic dilatation with stool throughout. Findings favor ileus without definite obstruction. Elevated left hemidiaphragm with bowel contents over the chest wall similar prior study Signed by: Alejo De León 04/04/2023 5:46 PM Dictation workstation: [id number] Physical Exam General Appearance: awake and alert, AAOx3, NAD HEENT: nc/at, eomi, perrla, moist mucous membranes Resp: ctab; no wheezing, rhonchi, or rales, normal respiratory effort Cardio: rrr. S1s2 GI: soft, ntnd, BS+ : jamison Ext: no edema, 2+ pulses b/l LLE hip surgery site dressing clean Relevant Results Results for orders placed or performed during the hospital encounter of 03/31/23 (from the past 24 hour(s)) CBC Result Value Ref Range WBC 7.1 4.4 - 11.3 x10*3/uL nRBC 0.0 0.0 - 0.0 /100 WBCs RBC 2.97 (L) 4.50 - 5.90 x10*6/uL Hemoglobin 8.4 (L) 13.5 - 17.5 g/dL Hematocrit 27.6 (L) 41.0 - 52.0 % MCV 93 80 - 100 fL MCH 28.3 26.0 - 34.0 pg MCHC 30.4 (L) 32.0 - 36.0 g/dL RDW 14.8 (H) 11.5 - 14.5 % Platelets 200 150 - 450 x10*3/uL Iron and TIBC Result Value Ref Range Iron 31 (L) 35 - 150 ug/dL UIBC 114 110 - 370 ug/dL TIBC 145 (L) 240 - 445 ug/dL % Saturation 21 (L) 25 - 45 % Basic Metabolic Panel Result Value Ref Range Glucose 106 (H) 74 - 99 mg/dL Sodium 135 (L) 136 - 145 mmol/L Potassium 4.2 3.5 - 5.3 mmol/L Chloride 104 98 - 107 mmol/L Bicarbonate 18 (L) 21 - 32 mmol/L Anion Gap 17 10 - 20 mmol/L Urea Nitrogen 91 (HH) 6 - 23 mg/dL Creatinine 7.65 (H) 0.50 - 1.30 mg/dL eGFR 7 (L) >60 mL/min/1.73m*2 Calcium 8.3 (L) 8.6 - 10.3 mg/dL Sars-CoV-2 PCR, Screen Asymptomatic Result Value Ref Range Coronavirus 2019, PCR Not Detected Not Detected Scheduled medications allopurinol, 100 mg, oral, Daily aspirin, 325 mg, oral, BID calcitriol, 0.25 mcg, oral, Daily ferrous sulfate, 65 mg of iron, oral, BID influenza, 0.7 mL, intramuscular, During hospitalization fluticasone, 2 spray, Each Nostril, Daily heparin (porcine), 5,000 Units, subcutaneous, q8h [Held by provider] isosorbide mononitrate ER, 30 mg, oral, Daily levothyroxine, 88 mcg, oral, Daily before breakfast melatonin, 3 mg, oral, Daily multivitamin with minerals, 1 tablet, oral, Daily polyethylene glycol, 17 g, oral, Daily psyllium, 1 packet, oral, Daily sodium bicarbonate, 1,300 mg, oral, BID tiZANidine, 2 mg, oral, Once traZODone, 100 mg, oral, Nightly Continuous medications PRN medications PRN medications: acetaminophen OR acetaminophen OR acetaminophen, albuterol, cyclobenzaprine, ondansetron, oxyCODONE, oxygen Scheduled medications Continuous medications PRN medications PRN medications: acetaminophen OR acetaminophen OR acetaminophen, albuterol, cyclobenzaprine, ondansetron, oxyCODONE, oxygen Results for orders placed or performed during the hospital encounter of 03/31/23 (from the past 24 hour(s)) CBC Result Value Ref Range WBC 7.1 4.4 - 11.3 x10*3/uL nRBC 0.0 0.0 - 0.0 /100 WBCs RBC 2.97 (L) 4.50 - 5.90 x10*6/uL Hemoglobin 8.4 (L) 13.5 - 17.5 g/dL Hematocrit 27.6 (L) 41.0 - 52.0 % MCV 93 80 - 100 fL MCH 28.3 26.0 - 34.0 pg MCHC 30.4 (L) 32.0 - 36.0 g/dL RDW 14.8 (H) 11.5 - 14.5 % Platelets 200 150 - 450 x10*3/uL Iron and TIBC Result Value Ref Range Iron 31 (L) 35 - 150 ug/dL UIBC 114 110 - 370 ug/dL TIBC 145 (L) 240 - 445 ug/dL % Saturation 21 (L) 25 - 45 % Basic Metabolic Panel Result Value Ref Range Glucose 106 (H) 74 - 99 mg/dL Sodium 135 (L) 136 - 145 mmol/L Potassium 4.2 3.5 - 5.3 mmol/L Chloride 104 98 - 107 mmol/L Bicarbonate 18 (L) 21 - 32 mmol/L Anion Gap 17 10 - 20 mmol/L Urea Nitrogen 91 (HH) 6 - 23 mg/dL Creatinine 7.65 (H) 0.50 - 1.30 mg/dL eGFR 7 (L) >60 mL/min/1.73m*2 Calcium 8.3 (L) 8.6 - 10.3 mg/dL Sars-CoV-2 PCR, Screen Asymptomatic Result Value Ref Range Coronavirus 2019, PCR Not Detected Not Detected Assessment/Plan Principal Problem: Closed fracture of left hip, initial encounter ([facility]) Active Problems: Stage 5 chronic kidney disease not on chronic dialysis ([facility]) Obesity, morbid, BMI 40.0-49.9 ([facility]) Genet Booth is a 78 y.o. male with past medical history of hypertension, hyperlipidemia, pneumonia, UTI, chronic Jamison, follows with Dr. Maldonado, chronic Jamison was changed 2-1/2 weeks ago, gout, acid reflux, hepatitis C, CKD, and prostate cancer(was treated with radiation 14 years ago) presenting toER by squad post fall. At the ER blood work is significant for BUN 77, creatinine 6.46, GFR 8, WBC 15.3, and absolute neutrophils 13.55. Chest x-ray revealed left basilar airspace consolidation. [facility] x-ray positive for left femoral neck fracture. admitted for left hip fracture, and CHOLE on CKD V. With Ortho. Surgery and nephrology on consult. #Closed fracture of left hip -Orthopedic surgery following - s/p surgery day # 2 left hemiarthroplasty of hip -Pain management -Bowel regimen to prevent constipation-ileus - supportive care and NPO for now other than meds. ok PT and ambulate #Acute Kidney Injury on CKD -Nephrology consulted recommendations appreciated-stable -Strict I&Os, daily weight -jamison not changed in ED; however, patient not allowing RN to change d/t recent procedure and states it was changed 2 weeks ago #Sinusitis -Flonase nasal spray ordered -off Abx, pneumonia less likely clinically -Patient is on O2 NC 2 L -Bronchodilators Giovanni Pardo MD * Melvina Christiansen Garett - 04/04/2023 1:30 PM EDT Music Therapy Note Genet Booth was referred by Tavia Goddard RN. Therapy Session Referral Type: Referral from previous admission Visit Type: Follow-up visit Session Start Time: 1330 Session End Time: 1415 Intervention Delivery: In-person Conflict of Service: None Family Present for Session: None Pre-assessment Unable to Assess Reason: Outcomes not assessed Pain Score: 9 Stress Level (0-10): 10 Anxiety Level (0-10): 10 Coping Level (0-10): 0 Mood/Affect: Anxious Verbalized Emotional State: Anxiety Treatment/Interventions Areas of Focus: Anxiety reduction, Stress reduction, Pain management Music Therapy Interventions: Live music listening Interruption: No Patient Fell Asleep at End of Session: No Post-assessment Unable to Assess Reason: Did not provide expressive therapy intervention Pain Score: 6 Stress Level (0-10): 6 Anxiety Level (0-10): 2 Coping Level (0-10): 0 Mood/Affect: Calm, Appropriate Verbalized Emotional State: Gratitude Total Session Time (min): 45 minutes Narrative Assessment Detail: Pt found resting in recliner, awake/alert, upon arrival of music therapist. Pt expressed having a worse day than yesterday and that his pain fluctuates. Pt described his stress as a million. Pt requesting 60's music with acoustic guitar at this time. Plan: Plan to engage pt in live music listening as a means of anxiety and stress reduction, pain perception. Intervention: During intervention pt participated by closing his eyes and receiving the music. MT provided continuous pt preferred music via voice and guitar. Pt shared that memories were elicited bythe music but no color (pt has synesthesia). Pt shared that it definitely took me back to the 60's. Pt shared that his stress started to come back after the conclusion of music therapy session, stating that he's anticipating the pain of getting transfered back to his bed. MT encouraged pt to stayin the relaxed state from the music therapy session and let the future come on its own rather than anticipating it. Evaluation: Pt responded to music therapy session with an increase in relaxation as evidenced by relaxed posture and stating I almost fell asleep it was so relaxing, and that's telling you something. Follow-up: Pt set for dc, no plan to follow-up. Patient Comments: I almost fell asleep it was so relaxing, and that's telling you something. Education Documentation Coping Strategies, taught by Melvina Varela at 04/04/2023 5:38 PM. Learner: Patient Readiness: Acceptance Method: Explanation, Demonstration Response: Needs Reinforcement Relaxation, taught by Melvina Varela at 04/04/2023 5:38 PM. Learner: Patient Readiness: Acceptance Method: Explanation, Demonstration Response: Needs Reinforcement * Asha Zhou, CONSERVATION OR HERITAGE ARCHITECT - 04/04/2023 1:00 PM EDT Physical Therapy Physical Therapy Treatment Patient Name: Genet Booth Today's Date: 04/04/2023 Time Calculation Start Time: 1125 Stop Time: 1151 Time Calculation (min): 26 min Assessment/Plan PT Assessment PT Assessment Results: Decreased strength, Decreased range of motion, Decreased endurance, Impairedbalance, Decreased mobility, Decreased safety awareness, Pain, Orthopedic restrictions End of Session Communication: Bedside nurse Assessment Comment: Pt. with fair tolerance with isometrics this date. Pt. is anxious and fearful of pain. Max assist x2-3 with transfers/SPT to the chair. Verbal cues needed for pursed lip breathingd/t patient was breathing quickly at times. Pt. positioned in the chair with call light within reach and alarm on. Pt. recalled /3 hip precautions this date. Continue with POC and progress per tolerance to improve endurance and ease with transfers and bed mobility. MB End of Session Patient Position: Up in chair, Alarm on PT Plan Inpatient/Swing Bed or Outpatient: Inpatient PT Plan Treatment/Interventions: Bed mobility, Transfer training, Gait training, Stair training, Balance training, Neuromuscular re-education, Strengthening, Endurance training, Range of motion, Therapeutic exercise, Therapeutic activity, Home exercise program PT Plan: Skilled PT PT Frequency: Daily PT Discharge Recommendations: Moderate intensity level of continued care PT Recommended Transfer Status: Assist x2 General Visit Information: PT Visit PT Received On: 04/04/23 General General Comment: Pt. laying in bed upon arrival, agreeable to therapy. Subjective Precautions: Precautions Hearing/Visual Limitations: WFL LE Weight Bearing Status: Weight Bearing as Tolerated (L LE) Post-Surgical Precautions: Left hip precautions Precautions Comment: has hip precautions Vital Signs: Vital Signs SpO2: 94 % Objective Pain: Pain Assessment Pain Assessment: 0-10 Pain Score: 9 (states minimal pain with rest; 9/10 pain with movement) Cognition: Cognition Overall Cognitive Status: Within Functional Limits Treatments: Therapeutic Exercise Therapeutic Exercise Performed: Yes Therapeutic Exercise Activity 1: supine ankle pumps x10 Therapeutic Exercise Activity 2: supine QS x10 Therapeutic Exercise Activity 3: supine HS sets x10 Therapeutic Exercise Activity 4: supine GS x10 Bed Mobility Bed Mobility: Yes Bed Mobility 1 Bed Mobility 1: Supine to sitting Level of Assistance 1: Maximum assistance (x2) Ambulation/Gait Training Ambulation/Gait Training Performed: No Transfers Transfer: Yes Transfer 1 Transfer From 1: Sit to Transfer to 1: Stand Transfer Device 1: Gait belt, Walker Transfer Level of Assistance 1: Maximum assistance (x2) Transfers 2 Technique 2: Stand pivot Transfer Device 2: Gait belt Transfer Level of Assistance 2: Maximum assistance (x2) Outcome Measures: [facility] Basic Mobility Turning from your back to your side while in a flat bed without using bedrails: A lot Moving from lying on your back to sitting on the side of a flat bed without using bedrails: A lot Moving to and from bed to chair (including a wheelchair): A lot Standing up from a chair using your arms (e.g. wheelchair or bedside chair): A lot To walk in hospital room: A lot Climbing 3-5 steps with railing: A lot Basic Mobility - Total Score: 12 Education Documentation Precautions, taught by Asha Zhou PTA at 04/04/2023 12:59 PM. Learner: Patient Readiness: Acceptance Method: Explanation Response: Verbalizes Understanding, Needs Reinforcement Home Exercise Program, taught by Asha Zhou PTA at 04/04/2023 12:59 PM. Learner: Patient Readiness: Acceptance Method: Explanation Response: Verbalizes Understanding, Needs Reinforcement Mobility Training, taught by Asha Zhou PTA at 04/04/2023 12:59 PM. Learner: Patient Readiness: Acceptance Method: Explanation Response: Verbalizes Understanding, Needs Reinforcement Education Comments No comments found. OP EDUCATION: Encounter Problems Encounter Problems (Active) PT Problem Pt will demonstrate sup > sit and sit > sup bed mobility mod I (Progressing) Start: 04/03/23 Expected End: 04/17/23 Pt will demo sit > stand and stand > sit transfer with ww and mod I (Progressing) Start: 04/03/23 Expected End: 04/17/23 Pt will ambulate 25' with ww and mod I, without LOB (Progressing) Start: 04/03/23 Expected End: 04/17/23 Pt to verbalize and demo understanding of posterior hip precautions (Progressing) Start: 04/03/23 Expected End: 04/17/23 Pain - Adult * Norma Nathan, OUTREACH EDUCATOR - 04/04/2023 11:35 AM EDT Genet Booth is a 78 y.o. male on day 4 of admission presenting with Closed fracture of left hip,initial encounter ([facility]). TRISTAN met w/ Pt @ bedside. Pt in agreement w/discharge plan to discharge to [facility]. TRISTAN reviewed IM and Ptsigned, SW left copy of IM w/ Pt. 12: 40 PM Insurance authorization approved. TRISTAN contacted Wendy @ [facility], [place] for Pt to discharge to facility today. TRISTAN requested COVID test per charge nurse. SW to follow for final orders and transportation set up. [id number] Update from provider, waiting to discharge Pt until tomorrow morning due to Pt was vomiting. TRISTAN spoke to [place]/[facility] and provided update that Pt will not discharge until tomorrow 04/05. Norma Nathan LCSW * Tiana De León DO - 04/04/2023 8:00 AM EDT Genet Booth is a 78 y.o. male on day 4 of admission presenting with Closed fracture of left hip,initial encounter ([facility]). Subjective Patient seen and examined at the bedside this morning He is resting pretty comfortably in bed States his pain is getting better No acute issues or events noted Objective Vitals 24HR Heart Rate: [88-98] Temp: [36.2 C (97.2 F)-36.6 C (97.9 F)] Resp: [17-20] BP: (125-133)/(64-74) SpO2: [91 %-98 %] Intake/Output last 3 Shifts: Intake/Output Summary (Last 24 hours) at 04/04/2023 0800 Last data filed at 04/04/2023 0440 Gross per 24 hour Intake -- Output 1250 ml Net -1250 ml Physical Exam Constitutional: Appearance: Normal appearance. HENT: Head: Normocephalic and atraumatic. Right Ear: External ear normal. Left Ear: External ear normal. Nose: Nose normal. Mouth/Throat: Mouth: Mucous membranes are moist. Pharynx: Oropharynx is clear. Eyes: Extraocular Movements: Extraocular movements intact. Conjunctiva/sclera: Conjunctivae normal. Pupils: Pupils are equal, round, and reactive to light. Cardiovascular: Rate and Rhythm: Normal rate and regular rhythm. Pulmonary: Effort: Pulmonary effort is normal. Breath sounds: Normal breath sounds. Abdominal: General: Abdomen is flat. Palpations: Abdomen is soft. Genitourinary: Comments: Jamison catheter in place Musculoskeletal: General: No swelling. Comments: Dressing on left hip Skin: General: Skin is warm and dry. Neurological: General: No focal deficit present. Mental Status: He is alert and oriented to person, place, and time. Psychiatric: Mood and Affect: Mood normal. Behavior: Behavior normal. Relevant Results Assessment/Plan Principal Problem: Closed fracture of left hip, initial encounter ([facility]) Active Problems: Stage 5 chronic kidney disease not on chronic dialysis ([facility]) Obesity, morbid, BMI 40.0-49.9 ([facility]) Chronic kidney disease stage V Anemia Hypertension Normal anion gap metabolic acidosis Left hip fracture Bilateral hydronephrosis with right stent in place Plan: At this time clinically he is stable His renal function is stable He continues to recover from his hip surgery He is scheduled to [facility] At this time he wants to continue to avoid renal replacement therapy He does not have any overt signs or symptoms needing it currently and his electrolytes are stable He can be discharged at any time to rehab with close follow-up with me as an outpatient Please call with issues or needs Tiana De León DO * Giovanni Pardo MD - 04/03/2023 6:40 PM EDT Genet Booth is a 78 y.o. male on day 3 of admission presenting with Closed fracture of left hip,initial encounter ([facility]). Subjective Denies significant complaints or pain Encourage incentive spirometry Kidney numbers slightly worse but clinically doing okay and may opt for renal replacement therapy in near future if worsening Objective Last Recorded Vitals BP 130/74 (BP Location: Left arm, Patient Position: Lying) Pulse 89 Temp 36.6 C (97.9 F) (Temporal) Resp 17 Wt 107 kg (235 lb 10.8 oz) SpO2 94% Intake/Output last 3 Shifts: Intake/Output Summary (Last 24 hours) at 04/03/2023 1840 Last data filed at 04/03/2023 1812 Gross per 24 hour Intake -- Output 925 ml Net -925 ml Admission Weight Weight: 108 kg (237 lb) (03/31/23 1322) Daily Weight 04/01/23 : 107 kg (235 lb 10.8 oz) Image Results XR hip left 1 view Narrative: Interpreted By: Tera Powell, STUDY: XR HIP LEFT 1 VIEW; 04/02/2023 2:47 pm INDICATION: Signs/Symptoms:Post op hip. COMPARISON: Comparison with pre-surgical left hip film from 03/31/2023. ACCESSION NUMBER(S): [id number] ORDERING CLINICIAN: JUDY LEY TECHNIQUE: Single portable AP postoperative view of the left hip was obtained. FINDINGS: Immediately status post left hip arthroplasty. Left femoral and acetabular components appear well seated and in good alignment. There is mild postsurgical gas in the adjacent soft tissues. No lytic or blastic destructive bone lesion. No acute fracture or dislocation. Impression: Immediately status post left hip arthroplasty. No acute fracture or dislocation. MACRO: None Signed by: Tera Powell 04/02/2023 2:50 PM Dictation workstation: [id number] Physical Exam General Appearance: awake and alert, AAOx3, NAD HEENT: nc/at, eomi, perrla, moist mucous membranes Resp: ctab; no wheezing, rhonchi, or rales, normal respiratory effort Cardio: rrr. S1s2 GI: soft, ntnd, BS+ Ext: no edema, 2+ pulses b/l LLE hip surgery site dressing clean Relevant Results Results for orders placed or performed during the hospital encounter of 03/31/23 (from the past 24 hour(s)) CBC Result Value Ref Range WBC 8.7 4.4 - 11.3 x10*3/uL nRBC 0.0 0.0 - 0.0 /100 WBCs RBC 3.01 (L) 4.50 - 5.90 x10*6/uL Hemoglobin 8.7 (L) 13.5 - 17.5 g/dL Hematocrit 28.4 (L) 41.0 - 52.0 % MCV 94 80 - 100 fL MCH 28.9 26.0 - 34.0 pg MCHC 30.6 (L) 32.0 - 36.0 g/dL RDW 14.8 (H) 11.5 - 14.5 % Platelets 196 150 - 450 x10*3/uL Basic Metabolic Panel Result Value Ref Range Glucose 119 (H) 74 - 99 mg/dL Sodium 137 136 - 145 mmol/L Potassium 5.1 3.5 - 5.3 mmol/L Chloride 107 98 - 107 mmol/L Bicarbonate 19 (L) 21 - 32 mmol/L Anion Gap 16 10 - 20 mmol/L Urea Nitrogen 85 (H) 6 - 23 mg/dL Creatinine 7.70 (H) 0.50 - 1.30 mg/dL eGFR 7 (L) >60 mL/min/1.73m*2 Calcium 8.1 (L) 8.6 - 10.3 mg/dL Scheduled medications allopurinol, 100 mg, oral, Daily aspirin, 325 mg, oral, BID calcitriol, 0.25 mcg, oral, Daily ferrous sulfate, 65 mg of iron, oral, BID influenza, 0.7 mL, intramuscular, During hospitalization fluticasone, 2 spray, Each Nostril, Daily heparin (porcine), 5,000 Units, subcutaneous, q8h [Held by provider] isosorbide mononitrate ER, 30 mg, oral, Daily levothyroxine, 88 mcg, oral, Daily before breakfast melatonin, 3 mg, oral, Daily multivitamin with minerals, 1 tablet, oral, Daily polyethylene glycol, 17 g, oral, Daily psyllium, 1 packet, oral, Daily sodium bicarbonate, 1,300 mg, oral, BID tiZANidine, 2 mg, oral, Once traZODone, 100 mg, oral, Nightly Continuous medications PRN medications PRN medications: acetaminophen OR acetaminophen OR acetaminophen, albuterol, cyclobenzaprine, oxyCODONE, oxygen Scheduled medications Continuous medications PRN medications PRN medications: acetaminophen OR acetaminophen OR acetaminophen, albuterol, cyclobenzaprine, oxyCODONE, oxygen Results for orders placed or performed during the hospital encounter of 03/31/23 (from the past 24 hour(s)) CBC Result Value Ref Range WBC 8.7 4.4 - 11.3 x10*3/uL nRBC 0.0 0.0 - 0.0 /100 WBCs RBC 3.01 (L) 4.50 - 5.90 x10*6/uL Hemoglobin 8.7 (L) 13.5 - 17.5 g/dL Hematocrit 28.4 (L) 41.0 - 52.0 % MCV 94 80 - 100 fL MCH 28.9 26.0 - 34.0 pg MCHC 30.6 (L) 32.0 - 36.0 g/dL RDW 14.8 (H) 11.5 - 14.5 % Platelets 196 150 - 450 x10*3/uL Basic Metabolic Panel Result Value Ref Range Glucose 119 (H) 74 - 99 mg/dL Sodium 137 136 - 145 mmol/L Potassium 5.1 3.5 - 5.3 mmol/L Chloride 107 98 - 107 mmol/L Bicarbonate 19 (L) 21 - 32 mmol/L Anion Gap 16 10 - 20 mmol/L Urea Nitrogen 85 (H) 6 - 23 mg/dL Creatinine 7.70 (H) 0.50 - 1.30 mg/dL eGFR 7 (L) >60 mL/min/1.73m*2 Calcium 8.1 (L) 8.6 - 10.3 mg/dL Assessment/Plan Principal Problem: Closed fracture of left hip, initial encounter ([facility]) Active Problems: Stage 5 chronic kidney disease not on chronic dialysis ([facility]) Obesity, morbid, BMI 40.0-49.9 ([facility]) Genet Booth is a 78 y.o. male with past medical history of hypertension, hyperlipidemia, pneumonia, UTI, chronic Jamison, follows with Dr. Maldonado, chronic Jamison was changed 2-1/2 weeks ago, gout, acid reflux, hepatitis C, CKD, and prostate cancer(was treated with radiation 14 years ago) presenting toER by squad post fall. At the ER blood work is significant for BUN 77, creatinine 6.46, GFR 8, WBC 15.3, and absolute neutrophils 13.55. Chest x-ray revealed left basilar airspace consolidation. Lefthip x-ray positive for left femoral neck fracture. admitted for left hip fracture, and CHLOE on CKD V. With Ortho. Surgery and nephrology on consult. #Closed fracture of left hip, initial encounter -Orthopedic surgery consulted - s/p surgery day # 1 left hemiarthroplasty of hip -Pain management -Bowel regimen to prevent constipation PT #Acute Kidney Injury on CKD -Nephrology consulted recommendations appreciated-stable -Strict I&Os, daily weight -jamison not changed in ED; however, patient not allowing RN to change d/t recent procedure and states it was changed 2 weeks ago #Sinusitis -Flonase nasal spray ordered -dc Abx, pneumonia less likely clinically -Patient is on O2 NC 2 L -Bronchodilators Giovanni Pardo MD * Tiana De León DO - 04/03/2023 12:15 PM EDT Genet Booth is a 78 y.o. male on day 3 of admission presenting with Closed fracture of left hip,initial encounter ([facility]). Subjective Patient seen and examined at the bedside this morning He is currently sitting in the bedside chair Still having pain in the hip area postoperatively with any kind of movement No other major issues or events noted at this time Objective Vitals 24HR Heart Rate: [87-135] Temp: [36.3 C (97.3 F)-36.9 C (98.4 F)] Resp: [13-29] BP: (89-130)/(47-64) SpO2: [90 %-99 %] Intake/Output last 3 Shifts: Intake/Output Summary (Last 24 hours) at 04/03/2023 1215 Last data filed at 04/02/2023 2245 Gross per 24 hour Intake 950 ml Output 625 ml Net 325 ml Physical Exam Constitutional: Appearance: Normal appearance. HENT: Head: Normocephalic and atraumatic. Right Ear: External ear normal. Left Ear: External ear normal. Nose: Nose normal. Mouth/Throat: Mouth: Mucous membranes are moist. Pharynx: Oropharynx is clear. Eyes: Extraocular Movements: Extraocular movements intact. Conjunctiva/sclera: Conjunctivae normal. Pupils: Pupils are equal, round, and reactive to light. Cardiovascular: Rate and Rhythm: Normal rate and regular rhythm. Pulmonary: Effort: Pulmonary effort is normal. Breath sounds: Normal breath sounds. Abdominal: General: Abdomen is flat. Palpations: Abdomen is soft. Genitourinary: Comments: Jamison catheter in place Musculoskeletal: General: No swelling. Comments: Dressing on left hip Skin: General: Skin is warm and dry. Neurological: General: No focal deficit present. Mental Status: He is alert and oriented to person, place, and time. Psychiatric: Mood and Affect: Mood normal. Behavior: Behavior normal. Relevant Results Assessment/Plan This patient currently has cardiac telemetry ordered; if you would like to modify or discontinue the telemetry order, click here to go to the orders activity to modify/discontinue the order. This patient has a urinary catheter Reason for the urinary catheter remaining today? urinary retention/bladder outlet obstruction, acute or chronic Principal Problem: Closed fracture of left hip, initial encounter ([facility]) Active Problems: Stage 5 chronic kidney disease not on chronic dialysis ([facility]) Obesity, morbid, BMI 40.0-49.9 ([facility]) Chronic kidney disease stage V Anemia Hypertension Normal anion gap metabolic acidosis Left hip fracture Bilateral hydronephrosis with right stent in place Plan: We will go ahead and discontinue Rocephin and Zithromax at this time Renal function by numbers is a little bit worse overall fairly stable Electrolytes are stable his volume status is stable At this time there is no need for emergent renal replacement therapy I did discuss with him that we are going to have to discuss this more in depth once he has had a little bit more time to recover from his surgical procedure For now I would continue supportive measures as he is on Tiana De León DO * Melvina Varela - 04/03/2023 11:05 AM EDT Music Therapy Note Genet Booth was referred by Tavia Goddard RN. Therapy Session Referral Type: Referral from previous admission Visit Type: Follow-up visit Session Start Time: 1105 Session End Time: 1147 Intervention Delivery: In-person Conflict of Service: None Family Present for Session: None Pre-assessment Unable to Assess Reason: Outcomes not assessed Pain Score: 10 - Worst possible pain Stress Level (0-10): 10 Anxiety Level (0-10): 10 Coping Level (0-10): 0 Mood/Affect: Anxious (Grimace (from pain)) Verbalized Emotional State: Anxiety Treatment/Interventions Areas of Focus: Stress reduction Music Therapy Interventions: Assessment, Live music listening Interruption: No Patient Fell Asleep at End of Session: No Post-assessment Unable to Assess Reason: Did not provide expressive therapy intervention Pain Score: 10 - Worst possible pain Stress Level (0-10): 8 Anxiety Level (0-10): 9 Coping Level (0-10): 0 Mood/Affect: Calm (Grimace (pain)) Verbalized Emotional State: Gratitude Total Session Time (min): 42 minutes Narrative Assessment Detail: Pt resting in recliner, awake/alert, upon follow-up arrival of music therapist. Pt requesting live instrumental piano music at this time. Plan: Plan to engage pt in live music listening as a means of stress reduction. Intervention: During intervention pt participated by closing his eyes as MT provide live instrumental keyboard music. MT integrated clustering technique to see if it assisted in directing the brain's attention off of pain. Pt shared that he saw purple colors and MT shared that this may be a result of multiple colors clustering together to make purple. Pt has synesthesia. Pt requested another instrumental piece, stating that it did not assist in redirecting his mind off of his pain. Pt stating I've never had pain like this before. MT encouraged pt to try some different music therapy techniques during next session to help manage pain, pt open to working with MT. Evaluation: Pt responded to music therapy intervention by saying I always look forward to it. Pt requesting follow-up session. Follow-up: MT will follow-up with pt on 04/04. Plan to encourage and introduce more engaging music therapy techniques for pt to try. Education Documentation No documentation found. * Jacqueline Muñoz, PT - 04/03/2023 10:44 AM EDT Physical Therapy Physical Therapy Evaluation Patient Name: Genet Booth Today's Date: 04/03/2023 Time Calculation Start Time: 920 Stop Time: 1000 Time Calculation (min): 40 min Assessment/Plan PT Assessment PT Assessment Results: Decreased strength, Decreased range of motion, Decreased endurance, Impairedbalance, Decreased mobility, Decreased safety awareness, Pain, Orthopedic restrictions End of Session Communication: Bedside nurse End of Session Patient Position: Up in chair, Alarm on IP OR SWING BED PT PLAN Inpatient or Swing Bed: Inpatient PT Plan Treatment/Interventions: Bed mobility, Transfer training, Gait training, Stair training, Balance training, Neuromuscular re-education, Strengthening, Endurance training, Range of motion, Therapeutic exercise, Therapeutic activity, Home exercise program PT Plan: Skilled PT PT Frequency: Daily PT Discharge Recommendations: Moderate intensity level of continued care PT Recommended Transfer Status: Assist x2 Subjective Current Problem: Patient Active Problem List Diagnosis Stage 5 chronic kidney disease not on chronic dialysis (CMS/HCC) 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 Acute renal failure (CMS/HCC) Anemia in stage 4 chronic kidney disease (CMS/HCC) Benign essential hypertension Benign prostatic hyperplasia with incomplete bladder emptying Burning with urination Depression Dyspnea on exertion History of prostate cancer Hydronephrosis Hyperlipidemia Iron deficiency anemia Metabolic syndrome Numerous moles Obesity, morbid, BMI 40.0-49.9 (CMS/HCC) Renal stones Ureteral stricture Urethral stricture Urinary tract infection with hematuria Closed fracture of left hip, initial encounter ([facility]) General Visit Information: General Reason for Referral: impaired mobility recent surgery Referred By: Av Past Medical History Relevant to Rehab: HTN. kidney disease, prostate cancer, gout, prior R TKA Family/Caregiver Present: No Co-Treatment: PT Co-Treatment Reason: coeval to optimize mobility and safety while focusing on discipline specific goals Prior to Session Communication: Bedside nurse Patient Position Received: Up in chair, Alarm on General Comment: Pt admitted s/p fall. Found to have L femoral neck fracture. POD #1 left hemiarthroplasty of hip. Home Living: Home Living Type of Home: House Lives With: Alone Home Adaptive Equipment: Walker rolling or standard, Cane (rollator, sock aid, detail sergeant) Home Layout: Two level, Full bath main level, Able to live on main level with bedroom/bathroom (+ basement; Recently staying on main level due to difficulty with steps) Home Access: Stairs to enter with rails Entrance Stairs-Rails: (single HR) Entrance Stairs-Number of Steps: 5 Bathroom Shower/Tub: Tub/shower unit Bathroom Toilet: Standard Bathroom Equipment: Grab bars in shower, Shower chair with back, Hand-held shower hose Prior Level of Function: Prior Function Per Pt/Caregiver Report Level of [place]: Independent with ADLs and functional transfers, Needs assistance with homemaking Receives Help From: Neighbor, Friends ADL Assistance: Independent Homemaking Assistance: Needs assistance Ambulatory Assistance: Independent (Cane in community and utiziles rollator within the house when needing to carry items) Hand Dominance: Right Prior Function Comments: IND with mobility within house, utilize rollator as needed; Cane in community. Recently active with [facility]. (+) fall, 1 fall leading to admission for hip fracture Precautions: Precautions Hearing/Visual Limitations: WFL LE Weight Bearing Status: Weight Bearing as Tolerated (L LE) Post-Surgical Precautions: Left hip precautions Precautions Comment: review of weightbearing and posterior hip precautions provided. Hand out provided with additional information. Vital Signs: Vital Signs Heart Rate: (88 pre; 123 standing; 98 post treatment) SpO2: (99% standing; 98% post treatment) BP: (111/61 pre; 128/115 post) Objective Pain: Pain Assessment Pain Assessment: 0-10 Pain Score: 4 Pain Type: Surgical pain Pain Location: Hip Pain Orientation: Left Cognition: Cognition Overall Cognitive Status: Within Functional Limits Orientation Level: Oriented X4 Cognition Comments: Anxious/fearful during evaluation General Assessments: General Observation General Observation: Pt anxious with mobility; requires encouragement to participate. Pt states he is afraid of moving due to pain. Activity Tolerance Endurance: Tolerates less than 10 min exercise, no significant change in vital signs Activity Tolerance Comments: Increased time required 2/2 pain. Sensation Sensation Comment: Numbness in B feet at baseline due to gout Strength Strength Comments: R LE MMT hip flex 4-/5, knee ext 4/5; ankle DF 4/5; L LE MMT NT 2/2 pain/recent surgery Static Sitting Balance Static Sitting-Balance Support: Feet supported, Bilateral upper extremity supported Static Sitting-Level of Assistance: Contact guard Static Sitting-Comment/Number of Minutes: R lateral lean Dynamic Sitting Balance Dynamic Sitting-Balance Support: Feet supported, Bilateral upper extremity supported Dynamic Sitting-Balance: Trunk control activities Dynamic Sitting-Comments: CGA to maintain balance with LE testing Static Standing Balance Static Standing-Balance Support: Bilateral upper extremity supported Static Standing-Level of Assistance: Maximum assistance Static Standing-Comment/Number of Minutes: assist to maintain balance; difficulty weightbearing through L LE Functional Assessments: Bed Mobility Bed Mobility: No (Up in chair upon arrival) Transfers Transfer: Yes Transfer 1 Transfer From 1: Chair with arms to Transfer to 1: Chair with arms Technique 1: Sit to stand, Stand to sit Transfer Device 1: Walker, Gait belt Transfer Level of Assistance 1: Maximum assistance, Maximum verbal cues, Moderate tactile cues, +2 Trials/Comments 1: Difficulty weightbearing through L LE with cues; increased reliance on BUE's, lateral lean towards R Ambulation/Gait Training Ambulation/Gait Training Performed: No Extremity/Trunk Assessments: RLE RLE : Within Functional Limits LLE LLE : (L hip ROM 0-90 sitting in recliner; knee WFL; ankle WFL) Outcome Measures: [facility] Basic Mobility Turning from your back to your side while in a flat bed without using bedrails: A lot Moving from lying on your back to sitting on the side of a flat bed without using bedrails: A lot Moving to and from bed to chair (including a wheelchair): A lot Standing up from a chair using your arms (e.g. wheelchair or bedside chair): A lot To walk in hospital room: Total Climbing 3-5 steps with railing: Total Basic Mobility - Total Score: 10 Goals: Encounter Problems Encounter Problems (Active) PT Problem Pt will demonstrate sup > sit and sit > sup bed mobility mod I (Progressing) Start: 04/03/23 Expected End: 04/17/23 Pt will demo sit > stand and stand > sit transfer with ww and mod I (Progressing) Start: 04/03/23 Expected End: 04/17/23 Pt will ambulate 25' with ww and mod I, without LOB (Progressing) Start: 04/03/23 Expected End: 04/17/23 Pt to verbalize and demo understanding of posterior hip precautions (Progressing) Start: 04/03/23 Expected End: 04/17/23 Pain - Adult Education Documentation Precautions, taught by Jacqueline Muñoz PT at 04/03/2023 10:43 AM. Learner: Patient Readiness: Acceptance Method: Explanation Response: Verbalizes Understanding, Needs Reinforcement Home Exercise Program, taught by Jacqueline Muñoz PT at 04/03/2023 10:43 AM. Learner: Patient Readiness: Acceptance Method: Explanation Response: Verbalizes Understanding, Needs Reinforcement Mobility Training, taught by Jacqueline Muñoz PT at 04/03/2023 10:43 AM. Learner: Patient Readiness: Acceptance Method: Explanation Response: Verbalizes Understanding, Needs Reinforcement Education Comments No comments found. * Melvina Varela - 04/03/2023 10:28 AM EDT Music Therapy Note Genet Booth was referred by Tavia Goddard RN. Therapy Session Referral Type: Referral from previous admission Visit Type: New visit Session Start Time: 1027 Session End Time: 1032 Intervention Delivery: In-person Conflict of Service: None Family Present for Session: None Pre-assessment Unable to Assess Reason: Outcomes not assessed Mood/Affect: Anxious (Grimace (from pain)) Treatment/Interventions Music Therapy Interventions: Assessment Interruption: No Patient Fell Asleep at End of Session: No Post-assessment Unable to Assess Reason: Did not provide expressive therapy intervention Mood/Affect: Anxious (Grimace (from pain)) Total Session Time (min): 5 minutes Narrative Assessment Detail: Pt found reclining up in chair, awake/alert. Pt expressed having a difficult time and being in lots of pain. Pt also stated being drugged up. Pt requesting music therapy session today. Pt requesting instrumental piano music to help relax and distract from pain. Follow-up: MT will follow-up with pt later this am. Education Documentation No documentation found. * Ana Lilia Lovanisa, OT - 04/03/2023 9:20 AM EDT Occupational Therapy Evaluation and Treatment Patient Name: Genet Booth Today's Date: 04/03/2023 Time Calculation Start Time: 919 Stop Time: 1003 Time Calculation (min): 43 min Assessment: OT Assessment: Pt is 78 year old male admitted s/p fall. POD # 1 L hemiarthroplasty of hip. Pt limited by anxiety at this time but able to participate with encouargement and support. Increased time and integration of breathing techniques for pain management during session. Pt requiring MAX A x2 forsit>stand. Pt would benefit from skilled OT services during hospital stay to address goals. Prognosis: Good Barriers to Discharge: Decreased caregiver support Evaluation/Treatment Tolerance: Patient limited by pain End of Session Communication: Bedside nurse End of Session Patient Position: Up in chair, Alarm on OT Assessment Results: Decreased ADL status, Decreased safe judgment during ADL, Decreased endurance, Decreased functional mobility, Decreased IADLs Prognosis: Good Barriers to Discharge: Decreased caregiver support Evaluation/Treatment Tolerance: Patient limited by pain Plan: Treatment Interventions: ADL retraining, Functional transfer training, UE strengthening/ROM, Endurance training, Compensatory technique education (Precautions and adaptive equipment) OT Frequency: 4 times per week OT Discharge Recommendations: Moderate intensity level of continued care OT Recommended Transfer Status: Assist of 2 Treatment Interventions: ADL retraining, Functional transfer training, UE strengthening/ROM, Endurance training, Compensatory technique education (Precautions and adaptive equipment) Subjective Current Problem: 1. Closed fracture of left hip, initial encounter ([facility]) Case Request Operating Room: Hip Hemiarthroplasty Case Request Operating Room: Hip Hemiarthroplasty 2. Pneumonia due to infectious organism, unspecified laterality, unspecified part of lung 3. Acute kidney injury superimposed on chronic kidney disease ([facility]) 4. Obesity, morbid, BMI 40.0-49.9 ([facility]) Case Request Operating Room: Hip Hemiarthroplasty Case Request Operating Room: Hip Hemiarthroplasty 5. Stage 5 chronic kidney disease not on chronic dialysis ([facility]) Case Request Operating Room: Hip Hemiarthroplasty Case Request Operating Room: Hip Hemiarthroplasty 6. Hip fracture due to osteoporosis, initial encounter ([facility]) ceFAZolin in dextrose (iso-os) (Ancef) IVPB 2 g General: General Reason for Referral: Pt admitted s/p fall. Found to have L femoral neck fracture. POD #1 left hemiarthroplasty of hip Referred By: Av Past Medical History Relevant to Rehab: HTN. kidney disease, prostate cancer, gout, prior R TKA Family/Caregiver Present: No Co-Treatment: OT Co-Treatment Reason: coeval to optimize mobility and safety while focusing on discipline specific goals Prior to Session Communication: Bedside nurse Patient Position Received: Up in chair, Alarm on General Comment: Pt observed seated in recliner. Pt wiht incresaed anxiety related to additional mobility and anticipated pain. Pt agreeable to support and encouragement. Precautions: Hearing/Visual Limitations: WFL LE Weight Bearing Status: Weight Bearing as Tolerated (LLE) Post-Surgical Precautions: Left hip precautions Precautions Comment: review of weightbearing and posterior hip precautions provided. Hand out provided with additional information. Vital Signs: Heart Rate: 98 Heart Rate Source: Monitor SpO2: 98 % (6L O2 NC) BP: 125/64 BP Location: Left arm BP Method: Automatic Patient Position: Sitting Pain: Pain Assessment Pain Assessment: 0-10 Pain Score: 4 Pain Type: Surgical pain Pain Location: Hip Pain Orientation: Left Objective Cognition: Overall Cognitive Status: Within Functional Limits Orientation Level: Oriented X4 Cognition Comments: Increased anxiety during session Home Living: Type of Home: House Lives With: Alone Home Adaptive Equipment: Walker rolling or standard, Cane (rollator, sock aid, detail sergeant) Home Layout: Two level, Full bath main level, Able to live on main level with bedroom/bathroom (+ basement; Recently staying on main level due to difficulty with steps) Home Access: Stairs to enter with rails Entrance Stairs-Rails: (1HR) Entrance Stairs-Number of Steps: 5 Bathroom Shower/Tub: Tub/shower unit Bathroom Toilet: Standard Bathroom Equipment: Grab bars in shower, Shower chair with back, Hand-held shower hose Prior Function: Level of [place]: Independent with ADLs and functional transfers, Needs assistance with homemaking Receives Help From: Neighbor, Friends ADL Assistance: Independent Homemaking Assistance: Needs assistance Ambulatory Assistance: Independent (Cane in community and utiziles rollator within the house when needing to carry items) Hand Dominance: Right Prior Function Comments: IND with mobility within house, utilize rollator as needed; Cane in community. Recently active with [facility] RN. (+) fall, 1 fall leading to admission for hip fracture IADL History: IADL Comments: (+) drive, recently utilizing transportation services; Delivery and meal system for meals; Cleaning services bi-weekly; Able to perform simple household tasks. ADL: Eating Assistance: Stand by Eating Deficit: Setup (sips of water taken throughout session) Grooming Assistance: Minimal Grooming Deficit: Setup (anticipated) Bathing Assistance: Maximal Bathing Deficit: (Anticipated) UE Dressing Assistance: Maximal UE Dressing Deficit: (Anticipated) LE Dressing Assistance: Total LE Dressing Deficit: (Anticipated) Toileting Assistance with Device: Total Toileting Deficit: Urinary Catheter (Anticipated) Functional Assistance: Total (2 person assist) Activity Tolerance: Endurance: Tolerates less than 10 min exercise, no significant change in vital signs Activity Tolerance Comments: Increased time requiring for position changes for pain management and support. Sit>stand x1 from recliner with MAX Ax2. Static stand with FWW ~ 30 seconds. Bed Mobility/Transfers: Bed Mobility Bed Mobility: No (Pt seated in recliner upon arrival) and Transfers Transfer: Yes Transfer 1 Transfer From 1: Sit to, Stand to Transfer to 1: Sit, Stand Technique 1: Sit to stand, Stand to sit Transfer Device 1: Walker, Gait belt Transfer Level of Assistance 1: Maximum assistance, Maximum verbal cues, Moderate tactile cues (2 person) Modalities: Vision:Vision - Basic Assessment Current Vision: Wears glasses only for reading Sensation: Sensation Comment: Numbness in B feet at baseline due to gout Strength: Strength Comments: BUE grossly 3+/5 Perception: Coordination: Hand Function: Gross Grasp: Functional Coordination: Functional Outcome Measures:[facility] Daily Activity Putting on and taking off regular lower body clothing: Total Bathing (including washing, rinsing, drying): A lot Putting on and taking off regular upper body clothing: A lot Toileting, which includes using toilet, bedpan or urinal: Total Taking care of personal grooming such as brushing teeth: A little Eating Meals: A little Daily Activity - Total Score: 12 Treatment: Extensive time for education and importance of mobility. Increased time for positional changes due to increased anxiety, pain and reported dizziness, vitals monitored throughout. Upright sitting in recliner with BLE rest on floor with MOD A x2 to maintain upright sitting with lean towardR hip for pressure relief. MAX education on integrating breathing into mobility and avoiding straining/holding breathe. Sit>stand with education on BLE and hand positioning. MAX A x2 for elevationwith FWW. Static standing with FWW requiring MAX A x2, retrograde lean. Tolerated ~ 30 seconds of standing. MAX A x2 for controlled descent to seated. Pt left seated in chair with call light in reach, alarm on, ice applied to L hip and needs met at end of session. Education Documentation Handouts, taught by Ana Lilia Martinez OT at 04/03/2023 10:32 AM. Learner: Patient Readiness: Acceptance Method: Explanation Response: Needs Reinforcement Comment: Hand out provided on precautions and adaptive techniques for ADLs/IADLs Precautions, taught by Ana Lilia Martinez OT at 04/03/2023 10:31 AM. Learner: Patient Readiness: Acceptance Method: Explanation Response: Verbalizes Understanding ADL Training, taught by Ana Lilia Martinez OT at 04/03/2023 10:31 AM. Learner: Patient Readiness: Acceptance Method: Explanation, Handout Response: Needs Reinforcement Comment: Discussed need for hip kit and adaptive techniques for ADLs Education Comments No comments found. OP EDUCATION: Goals: Encounter Problems Encounter Problems (Active) ADLs Patient with complete lower body dressing with minimal assist level of assistance with adaptive equipment to maintain hip precautions (Progressing) Start: 04/03/23 Expected End: 04/17/23 Patient will complete toileting including hygiene clothing management/hygiene with minimal assist level of assistance and PRN DME/AE. (Progressing) Start: 04/03/23 Expected End: 04/17/23 COGNITION/SAFETY Patient will recall and adhere to L posterior hip precautions during all functional mobility/ADL tasks in order to demonstrate improved understanding and promote healing post op (Progressing) Start: 04/03/23 Expected End: 04/17/23 TRANSFERS Patient will complete functional transfers with front wheeled walker with minimal assist level of assistance. (Progressing) Start: 04/03/23 Expected End: 04/17/23 * Giovanni Pardo MD - 04/02/2023 7:34 PM EDT Genet Booth is a 78 y.o. male on day 2 of admission presenting with Closed fracture of left hip,initial encounter ([facility]). Subjective Patient examined at bedside, reports pain after fall at home. Objective Last Recorded Vitals BP 123/61 Pulse 100 Temp 36.8 C (98.2 F) Resp 20 Wt 107 kg (235 lb 10.8 oz) SpO2 90% Intake/Output last 3 Shifts: Intake/Output Summary (Last 24 hours) at 04/02/2023 1934 Last data filed at 04/02/2023 1805 Gross per 24 hour Intake 987.5 ml Output 1800 ml Net -812.5 ml Admission Weight Weight: 108 kg (237 lb) (03/31/23 1322) Daily Weight 04/01/23 : 107 kg (235 lb 10.8 oz) Image Results XR hip left 1 view Narrative: Interpreted By: Tera Powell, STUDY: XR HIP LEFT 1 VIEW; 04/02/2023 2:47 pm INDICATION: Signs/Symptoms:Post op hip. COMPARISON: Comparison with pre-surgical left hip film from 03/31/2023. ACCESSION NUMBER(S): [id number] ORDERING CLINICIAN: JUDY LEY TECHNIQUE: Single portable AP postoperative view of the left hip was obtained. FINDINGS: Immediately status post left hip arthroplasty. Left femoral and acetabular components appear well seated and in good alignment. There is mild postsurgical gas in the adjacent soft tissues. No lytic or blastic destructive bone lesion. No acute fracture or dislocation. Impression: Immediately status post left hip arthroplasty. No acute fracture or dislocation. MACRO: None Signed by: Tera Powell 04/02/2023 2:50 PM Dictation workstation: [id number] Physical Exam General Appearance: awake and alert, AAOx3, NAD HEENT: nc/at, eomi, perrla, moist mucous membranes Resp: ctab; no wheezing, rhonchi, or rales, normal respiratory effort Cardio: rrr. S1s2 GI: soft, ntnd, BS+ Ext: no edema, 2+ pulses b/l LLE hip surgery site dressing clean Relevant Results Results for orders placed or performed during the hospital encounter of 03/31/23 (from the past 24 hour(s)) CBC Result Value Ref Range WBC 9.3 4.4 - 11.3 x10*3/uL nRBC 0.0 0.0 - 0.0 /100 WBCs RBC 3.24 (L) 4.50 - 5.90 x10*6/uL Hemoglobin 9.3 (L) 13.5 - 17.5 g/dL Hematocrit 31.0 (L) 41.0 - 52.0 % MCV 96 80 - 100 fL MCH 28.7 26.0 - 34.0 pg MCHC 30.0 (L) 32.0 - 36.0 g/dL RDW 14.7 (H) 11.5 - 14.5 % Platelets 228 150 - 450 x10*3/uL MPV 10.6 7.5 - 11.5 fL Renal function panel Result Value Ref Range Glucose 91 74 - 99 mg/dL Sodium 136 136 - 145 mmol/L Potassium 4.8 3.5 - 5.3 mmol/L Chloride 106 98 - 107 mmol/L Bicarbonate 19 (L) 21 - 32 mmol/L Anion Gap 16 10 - 20 mmol/L Urea Nitrogen 70 (H) 6 - 23 mg/dL Creatinine 6.87 (H) 0.50 - 1.30 mg/dL eGFR 8 (L) >60 mL/min/1.73m*2 Calcium 8.0 (L) 8.6 - 10.3 mg/dL Phosphorus 7.6 (H) 2.5 - 4.9 mg/dL Albumin 3.0 (L) 3.4 - 5.0 g/dL Scheduled medications [Held by provider] allopurinol, 100 mg, oral, Daily aspirin, 325 mg, oral, BID azithromycin, 500 mg, oral, q24h calcitriol, 0.25 mcg, oral, Daily ceFAZolin in dextrose (iso-os), 2 g, intravenous, q8h cefTRIAXone, 1 g, intravenous, q24h ferrous sulfate, 65 mg of iron, oral, BID influenza, 0.7 mL, intramuscular, During hospitalization fluticasone, 2 spray, Each Nostril, Daily heparin (porcine), 5,000 Units, subcutaneous, q8h [Held by provider] isosorbide mononitrate ER, 30 mg, oral, Daily levothyroxine, 88 mcg, oral, Daily before breakfast melatonin, 3 mg, oral, Daily multivitamin with minerals, 1 tablet, oral, Daily oxybutynin, 5 mg, oral, BID polyethylene glycol, 17 g, oral, Daily psyllium, 1 packet, oral, Daily sodium bicarbonate, 1,300 mg, oral, BID tiZANidine, 2 mg, oral, Once traZODone, 100 mg, oral, Nightly Continuous medications oxygen, 2 L/min, Last Rate: 2 L/min (04/02/231614) PRN medications PRN medications: acetaminophen OR acetaminophen OR acetaminophen, albuterol, cyclobenzaprine, oxyCODONE, oxygen Scheduled medications Continuous medications oxygen, 2 L/min, Last Rate: 2 L/min (04/02/231614) PRN medications PRN medications: acetaminophen OR acetaminophen OR acetaminophen, albuterol, cyclobenzaprine, oxyCODONE, oxygen Results for orders placed or performed during the hospital encounter of 03/31/23 (from the past 24 hour(s)) CBC Result Value Ref Range WBC 9.3 4.4 - 11.3 x10*3/uL nRBC 0.0 0.0 - 0.0 /100 WBCs RBC 3.24 (L) 4.50 - 5.90 x10*6/uL Hemoglobin 9.3 (L) 13.5 - 17.5 g/dL Hematocrit 31.0 (L) 41.0 - 52.0 % MCV 96 80 - 100 fL MCH 28.7 26.0 - 34.0 pg MCHC 30.0 (L) 32.0 - 36.0 g/dL RDW 14.7 (H) 11.5 - 14.5 % Platelets 228 150 - 450 x10*3/uL MPV 10.6 7.5 - 11.5 fL Renal function panel Result Value Ref Range Glucose 91 74 - 99 mg/dL Sodium 136 136 - 145 mmol/L Potassium 4.8 3.5 - 5.3 mmol/L Chloride 106 98 - 107 mmol/L Bicarbonate 19 (L) 21 - 32 mmol/L Anion Gap 16 10 - 20 mmol/L Urea Nitrogen 70 (H) 6 - 23 mg/dL Creatinine 6.87 (H) 0.50 - 1.30 mg/dL eGFR 8 (L) >60 mL/min/1.73m*2 Calcium 8.0 (L) 8.6 - 10.3 mg/dL Phosphorus 7.6 (H) 2.5 - 4.9 mg/dL Albumin 3.0 (L) 3.4 - 5.0 g/dL Assessment/Plan Principal Problem: Closed fracture of left hip, initial encounter ([facility]) Active Problems: Stage 5 chronic kidney disease not on chronic dialysis ([facility]) Obesity, morbid, BMI 40.0-49.9 ([facility]) Genet Booth is a 78 y.o. male with past medical history of hypertension, hyperlipidemia, pneumonia, UTI, chronic Jamison, follows with Dr. Maldonado, chronic Jamison was changed 2-1/2 weeks ago, gout, acid reflux, hepatitis C, CKD, and prostate cancer(was treated with radiation 14 years ago) presenting toER by squad post fall. Patient states that he fell down 3 steps and landed on left hip on a cement.He was using his foot to put a blanket away that was that was on the floor and unfortunately his movement of the leg caused the patient to lose his balance. It took him 1 hour to crawl back to the first floor of his house and called 911. Denies hitting head or loss of consciousness. At the ER bloodwork is significant for BUN 77, creatinine 6.46, GFR 8, WBC 15.3, and absolute neutrophils 13.55. Chest x-ray revealed left basilar airspace consolidation. Left hip x-ray is positive for left femoralneck fracture. We will admit him for left lobe pneumonia, left hip fracture, and CHLOE on CKD. With Ortho. Surgery and nephrology on consult. #Closed fracture of left hip, initial encounter -Orthopedic surgery consulted -Bedrest until changed by orthopedic - s/p surgery -Pain management -Bowel regimen to prevent constipation PT soon #Acute Kidney Injury on CKD -Nephrology consulted recommendations appreciated-stable -Strict I&Os, daily weight -jamison not changed in ED; however, patient not allowing RN to change d/t recent procedure and states it was changed 2 weeks ago #Sinusitis -Flonase nasal spray ordered #Pneumonia -Chest Xray showed Left basilar airspace consolidation Sputum production none Plan: -Blood cx Urine antigens for Legionella and strep pneumonia ordered - IV azithromycin and IV ceftriaxone day 2 -Patient is on O2 NC 2 L -Bronchodilators Giovanni Pardo MD * XIMENA Kim - 04/02/2023 1:46 PM EDT Per medical team, patient is in surgery today, and will likely not be medically appropriate for discharge for another 48 hours. Per Bethanie Fu and [facility] can offer acceptance--[facility] states that patient has been there before. [facility] can only offer acceptance in a shared room. Insulation Hoseman sent updated notes to referral facilities via [facility]. to meet with patient when appropriate to confirm patient's facility of choice. Plan for patient to discharge to SNF for rehab whenmedically ready, pending patient's choice and insurance auth. Care Transitions to follow and assist. XIMENA Parker * Tiana De León DO - 04/02/2023 10:23 AM EDT Genet Booth is a 78 y.o. male on day 2 of admission presenting with Closed fracture of left hip,initial encounter ([facility]). Subjective Patient was seen and examined at the bedside this morning Resting pretty comfortably in bed As long as he stays still not having any pain Surgery scheduled for today Objective Vitals 24HR Heart Rate: [94-110] Temp: [36.2 C (97.2 F)-37.3 C (99.1 F)] Resp: [20-27] BP: (107-145)/(55-76) SpO2: [91 %-98 %] Intake/Output last 3 Shifts: Intake/Output Summary (Last 24 hours) at 04/02/2023 1023 Last data filed at 04/02/2023 0349 Gross per 24 hour Intake 1892.5 ml Output 1350 ml Net 542.5 ml Physical Exam Constitutional: Appearance: Normal appearance. HENT: Head: Normocephalic and atraumatic. Right Ear: External ear normal. Left Ear: External ear normal. Nose: Nose normal. Mouth/Throat: Mouth: Mucous membranes are moist. Pharynx: Oropharynx is clear. Eyes: Extraocular Movements: Extraocular movements intact. Conjunctiva/sclera: Conjunctivae normal. Pupils: Pupils are equal, round, and reactive to light. Cardiovascular: Rate and Rhythm: Normal rate and regular rhythm. Pulmonary: Effort: Pulmonary effort is normal. Breath sounds: Normal breath sounds. Abdominal: General: Abdomen is flat. Palpations: Abdomen is soft. Genitourinary: Comments: Jamisno catheter in place Skin: General: Skin is warm and dry. Neurological: General: No focal deficit present. Mental Status: He is alert and oriented to person, place, and time. Psychiatric: Mood and Affect: Mood normal. Behavior: Behavior normal. Scheduled medications [Held by provider] allopurinol, 100 mg, oral, Daily azithromycin, 500 mg, oral, q24h calcitriol, 0.25 mcg, oral, Daily cefTRIAXone, 1 g, intravenous, q24h ferrous sulfate, 65 mg of iron, oral, BID influenza, 0.7 mL, intramuscular, During hospitalization fluticasone, 2 spray, Each Nostril, Daily heparin (porcine), 5,000 Units, subcutaneous, q8h isosorbide mononitrate ER, 30 mg, oral, Daily levothyroxine, 88 mcg, oral, Daily before breakfast melatonin, 3 mg, oral, Daily multivitamin with minerals, 1 tablet, oral, Daily ondansetron, 4 mg, intravenous, Once oxybutynin, 5 mg, oral, BID polyethylene glycol, 17 g, oral, Daily sodium bicarbonate, 1,300 mg, oral, BID tiZANidine, 2 mg, oral, Once tranexamic acid (Cyklokapron) 3,000 mg in sodium chloride 0.9% 100 mL irrigation, 3,000 mg, irrigation, Once traZODone, 100 mg, oral, Nightly Continuous medications lactated Ringer's, 100 mL/hr PRN medications PRN medications: acetaminophen OR acetaminophen OR acetaminophen, albuterol, cyclobenzaprine, HYDROmorphone, oxyCODONE, oxygen Results for orders placed or performed during the hospital encounter of 03/31/23 (from the past 24 hour(s)) CBC Result Value Ref Range WBC 9.3 4.4 - 11.3 x10*3/uL nRBC 0.0 0.0 - 0.0 /100 WBCs RBC 3.24 (L) 4.50 - 5.90 x10*6/uL Hemoglobin 9.3 (L) 13.5 - 17.5 g/dL Hematocrit 31.0 (L) 41.0 - 52.0 % MCV 96 80 - 100 fL MCH 28.7 26.0 - 34.0 pg MCHC 30.0 (L) 32.0 - 36.0 g/dL RDW 14.7 (H) 11.5 - 14.5 % Platelets 228 150 - 450 x10*3/uL MPV 10.6 7.5 - 11.5 fL Renal function panel Result Value Ref Range Glucose 91 74 - 99 mg/dL Sodium 136 136 - 145 mmol/L Potassium 4.8 3.5 - 5.3 mmol/L Chloride 106 98 - 107 mmol/L Bicarbonate 19 (L) 21 - 32 mmol/L Anion Gap 16 10 - 20 mmol/L Urea Nitrogen 70 (H) 6 - 23 mg/dL Creatinine 6.87 (H) 0.50 - 1.30 mg/dL eGFR 8 (L) >60 mL/min/1.73m*2 Calcium 8.0 (L) 8.6 - 10.3 mg/dL Phosphorus 7.6 (H) 2.5 - 4.9 mg/dL Albumin 3.0 (L) 3.4 - 5.0 g/dL Relevant Results Assessment/Plan This patient currently has cardiac telemetry ordered; if you would like to modify or discontinue the telemetry order, click here to go to the orders activity to modify/discontinue the order. Principal Problem: Closed fracture of left hip, initial encounter ([facility]) Active Problems: Stage 5 chronic kidney disease not on chronic dialysis ([facility]) Obesity, morbid, BMI 40.0-49.9 ([facility]) Chronic kidney disease stage V Anemia Hypertension Normal anion gap metabolic acidosis Left hip fracture Bilateral hydronephrosis with right stent in place Plan: At this time renal function is stable He is having surgery today for his left hip He is well aware as he has been for quite some time that his kidney function is quite depressed andwe will have to decide eventually on dialysis For now electrolytes are stable slightly metabolic acidosis but stable for surgery from the renal standpoint We will continue to monitor Tiana De León DO * Tyrone Merritt MD - 04/01/2023 4:42 PM EDT Genet Booth is a 78 y.o. male on day 1 of admission presenting with Closed fracture of left hip,initial encounter ([facility]). Subjective Patient examined at bedside, reports pain after fall at home. Objective Last Recorded Vitals BP 111/61 Pulse 98 Temp 36.2 C (97.2 F) (Temporal) Resp 21 Wt 107 kg (235 lb 10.8 oz) SpO2 91% Intake/Output last 3 Shifts: Intake/Output Summary (Last 24 hours) at 04/01/2023 1642 Last data filed at 04/01/2023 1543 Gross per 24 hour Intake 3048.75 ml Output 800 ml Net 2248.75 ml Admission Weight Weight: 108 kg (237 lb) (03/31/23 1322) Daily Weight 04/01/23 : 107 kg (235 lb 10.8 oz) Image Results US renal complete Narrative: Interpreted By: Fei Ceron, STUDY: US RENAL COMPLETE; 04/01/2023 8:06 am INDICATION: Signs/Symptoms:CHLOE. COMPARISON: None. ACCESSION NUMBER(S): [id number] ORDERING CLINICIAN: LINA BACA TECHNIQUE: Multiple images of the kidneys were obtained. FINDINGS: RIGHT KIDNEY: Length 13.4 cm. Cortical thickness 9 mm. Normal cortical echogenicity. A moderately severe hydronephrosis is present with dilatation of the collecting system and renal pelvis. The hydronephrosis has increased from 01/09/2023. A drainage catheter is present with its tip in the renal pelvis. LEFT KIDNEY: Length 13.1 cm. Cortical thickness 9 mm. Normal cortical echogenicity. Moderate to severe hydronephrosis is present similar to 01/09/2023. BLADDER: The urinary bladder is decompressed by Jamison's catheter. Impression: Bilateral moderately severe to severe hydronephrosis with increase in the hydronephrosis in the right kidney since the last examination of 01/09/2023. Right ureteric stent present. MACRO: None Signed by: Fei Ceron 04/01/2023 8:20 AM Dictation workstation: [id number] Physical Exam General Appearance: awake and alert, AAOx3, NAD HEENT: nc/at, eomi, perrla, moist mucous membranes Resp: ctab; no wheezing, rhonchi, or rales, normal respiratory effort Cardio: rrr. S1s2 GI: soft, ntnd, BS+ Ext: no edema, 2+ pulses b/l Relevant Results Results for orders placed or performed during the hospital encounter of 03/31/23 (from the past 24 hour(s)) Legionella Antigen, Urine Specimen: Urine Result Value Ref Range L. pneumophila Urine Ag Negative Negative Streptococcus pneumoniae Antigen, Urine Specimen: Urine Result Value Ref Range Streptococcus pneumoniae Ag, Urine Negative Negative CBC Result Value Ref Range WBC 11.5 (H) 4.4 - 11.3 x10*3/uL nRBC 0.0 0.0 - 0.0 /100 WBCs RBC 3.78 (L) 4.50 - 5.90 x10*6/uL Hemoglobin 10.7 (L) 13.5 - 17.5 g/dL Hematocrit 35.9 (L) 41.0 - 52.0 % MCV 95 80 - 100 fL MCH 28.3 26.0 - 34.0 pg MCHC 29.8 (L) 32.0 - 36.0 g/dL RDW 15.0 (H) 11.5 - 14.5 % Platelets 265 150 - 450 x10*3/uL MPV 10.2 7.5 - 11.5 fL Comprehensive metabolic panel Result Value Ref Range Glucose 115 (H) 74 - 99 mg/dL Sodium 136 136 - 145 mmol/L Potassium 4.6 3.5 - 5.3 mmol/L Chloride 105 98 - 107 mmol/L Bicarbonate 19 (L) 21 - 32 mmol/L Anion Gap 17 10 - 20 mmol/L Urea Nitrogen 70 (H) 6 - 23 mg/dL Creatinine 6.24 (H) 0.50 - 1.30 mg/dL eGFR 9 (L) >60 mL/min/1.73m*2 Calcium 8.5 (L) 8.6 - 10.3 mg/dL Albumin 3.5 3.4 - 5.0 g/dL Alkaline Phosphatase 72 33 - 136 U/L Total Protein 7.4 6.4 - 8.2 g/dL AST 29 9 - 39 U/L Bilirubin, Total 0.4 0.0 - 1.2 mg/dL ALT 13 10 - 52 U/L Basic Metabolic Panel Result Value Ref Range Glucose 115 (H) 74 - 99 mg/dL Sodium 136 136 - 145 mmol/L Potassium 4.5 3.5 - 5.3 mmol/L Chloride 107 98 - 107 mmol/L Bicarbonate 19 (L) 21 - 32 mmol/L Anion Gap 15 10 - 20 mmol/L Urea Nitrogen 70 (H) 6 - 23 mg/dL Creatinine 6.40 (H) 0.50 - 1.30 mg/dL eGFR 8 (L) >60 mL/min/1.73m*2 Calcium 8.0 (L) 8.6 - 10.3 mg/dL Scheduled medications [Held by provider] allopurinol, 100 mg, oral, Daily azithromycin, 500 mg, intravenous, q24h calcitriol, 0.25 mcg, oral, Daily cefTRIAXone, 1 g, intravenous, q24h ferrous sulfate, 65 mg of iron, oral, BID influenza, 0.7 mL, intramuscular, During hospitalization fluticasone, 2 spray, Each Nostril, Daily heparin (porcine), 5,000 Units, subcutaneous, q8h isosorbide mononitrate ER, 30 mg, oral, Daily levothyroxine, 88 mcg, oral, Daily before breakfast melatonin, 3 mg, oral, Daily multivitamin with minerals, 1 tablet, oral, Daily oxybutynin, 5 mg, oral, BID polyethylene glycol, 17 g, oral, Daily sodium bicarbonate, 1,300 mg, oral, BID tiZANidine, 2 mg, oral, Once traZODone, 100 mg, oral, Nightly Continuous medications sodium chloride 0.9%, 75 mL/hr, Last Rate: 75 mL/hr (04/01/23 1228) PRN medications PRN medications: acetaminophen OR acetaminophen OR acetaminophen, albuterol, cyclobenzaprine, HYDROmorphone, oxyCODONE, oxygen Assessment/Plan This patient currently has cardiac telemetry ordered; if you would like to modify or discontinue the telemetry order, click here to go to the orders activity to modify/discontinue the order. This patient has a urinary catheter Reason for the urinary catheter remaining today? urinary retention/bladder outlet obstruction, acute or chronic Principal Problem: Closed fracture of left hip, initial encounter ([facility]) Active Problems: Stage 5 chronic kidney disease not on chronic dialysis ([facility]) Obesity, morbid, BMI 40.0-49.9 ([facility]) Genet Booth is a 78 y.o. male with past medical history of hypertension, hyperlipidemia, pneumonia, UTI, chronic Jamison, follows with Dr. Maldonado, chronic Jamison was changed 2-1/2 weeks ago, gout, acid reflux, hepatitis C, CKD, and prostate cancer(was treated with radiation 14 years ago) presenting toER by squad post fall. Patient states that he fell down 3 steps and landed on left hip on a cement.He was using his foot to put a blanket away that was that was on the floor and unfortunately his movement of the leg caused the patient to lose his balance. It took him 1 hour to crawl back to the first floor of his house and called 911. Denies hitting head or loss of consciousness. At the ER bloodwork is significant for BUN 77, creatinine 6.46, GFR 8, WBC 15.3, and absolute neutrophils 13.55. Chest x-ray revealed left basilar airspace consolidation. Left hip x-ray is positive for left femoralneck fracture. We will admit him for left lobe pneumonia, left hip fracture, and CHLOE on CKD. With Ortho. Surgery and nephrology on consult. #Closed fracture of left hip, initial encounter -Orthopedic surgery consulted -Bedrest until changed by orthopedic -Plan for surgery on Friday, NPO at midnight -Pain management -Bowel regimen to prevent constipation #Acute Kidney Injury on CKD -Nephrology consulted recommendations appreciated -Strict I&Os, daily weight -jamison not changed in ED; however, patient not allowing RN to change d/t recent procedure and states it was changed 2 weeks ago #Sinusitis -Flonase nasal spray ordered #Pneumonia -Chest Xray showed Left basilar airspace consolidation CBC showed: WBC 15.3 Sputum production none Plan: -Blood cx Urine antigens for Legionella and strep pneumonia ordered - IV azithromycin and IV ceftriaxone day 1 -Patient is on O2 NC 2 L -Bronchodilators Tyrone Merritt MD * Melvina G Garett - 04/01/2023 2:52 PM EDT Music Therapy Note Genet Booth was referred by Tavia Goddard RN. Therapy Session Referral Type: Referral from previous admission Visit Type: New visit Session Start Time: 1451 Session End Time: 1451 Intervention Delivery: In-person Conflict of Service: Asleep Treatment/Interventions Post-assessment Total Session Time (min): 0 minutes Narrative Assessment Detail: Pt asleep per nursing. Follow-up: MT will follow-up as applicable. Education Documentation No documentation found. Expressive Therapies Note * Asha Delvalle - 04/01/2023 9:51 AM EDT Care Transitions: Met with patient @ bedside. Demographics and contacts verified. He currently lives alone in a 2 story home. He is an active patient with his PCP Dr. Hernandez. He receives meal on [facility]. He states they are already aware that he is in the hospital becausethey found him after his fall and assisted with calling EMS. He was also receiving [facility] services through [facility]. Surgery is scheduled for tomorrow. Discharge plans discussed. Pt stateshe has no help at home and is agreeable to SNF for rehab. FOC discussed and choices given. Care team to follow for SNF bed availability and insurance approval. Asha Delvalle RN/TCC -[phone] Spoke to Tavia Singh @ [facility]. Notified of pt pending surgery and request for SNF rehab. [facility] services placed on hold for now. Asha Delvalle RN/TCC documented in this [facility] Work Phone: 1(866) 627-906611-06-2023 Plan of care note* Care Plan - Asha Delvalle - 04/07/2023 11:00 AM EST Care Transitions: Patient is medically ready for discharge today per care round discussion this AM. Spoke to Wendy @ [facility] to notify of ADOD today; states they are able to accept patient. Updated progress notes, goldenrod, and discharge summary sent to [facility] via [employer]. Requested HENS be completed by discharge team. Care team to follow for transportation time. Asha Delvalle RN/TCC [id number] Met with patient @ bedside. Notified of discharge transportation time of 1300. Voiced understanding. 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 Asha Delvalle RN/TCC [facility] Work Phone: [phone]) 685-728911-05-2023 Plan of care note* Care Plan - Tessy Quiroz RN - 04/06/2023 5:42 AM EST The clinical goals for the shift include to have a BM Pt did not have a BM this shift. Pt states he is passing a lot of gas. Oxycodone given with bedtime medications. Pain was controlled throughout shift. Pt rested well through the night [facility]11-03-2023 Nurse Note* Kb Wood RN - 04/04/2023 10:31 PM EDT Jamison catheter leaking. Patient refused jamison catheter change stating that this happens when he hasabdominal pressure. [facility]11-02-2023 Plan of care note* Care Plan - Nan Luque RN - 04/03/2023 6:29 PM EDT Problem: Pain - Adult Goal: Verbalizes/displays adequate comfort level or baseline comfort level Outcome: Progressing Problem: Safety - Adult Goal: Free from fall injury Outcome: Progressing Problem: Discharge Planning Goal: Discharge to home or other facility with appropriate resources Outcome: Progressing Problem: Chronic Conditions and Co-morbidities Goal: Patient's chronic conditions and co-morbidity symptoms are monitored and maintained or improved Outcome: Progressing Problem: Skin Goal: Decreased wound size/increased tissue granulation at next dressing change Outcome: Progressing Goal: Participates in plan/prevention/treatment measures Outcome: Progressing Goal: Prevent/manage excess moisture Outcome: Progressing Goal: Prevent/minimize sheer/friction injuries Outcome: Progressing Goal: Promote/optimize nutrition Outcome: Progressing Goal: Promote skin healing Outcome: Progressing Problem: Pain Goal: Takes deep breaths with improved pain control throughout the shift Outcome: Progressing Goal: Turns in bed with improved pain control throughout the shift Outcome: Progressing Goal: Walks with improved pain control throughout the shift Outcome: Progressing Goal: Performs ADL's with improved pain control throughout shift Outcome: Progressing Goal: Participates in PT with improved pain control throughout the shift Outcome: Progressing Goal: Free from opioid side effects throughout the shift Outcome: Progressing Goal: Free from acute confusion related to pain meds throughout the shift Outcome: Progressing The patient's goals for the shift include decrease pain The clinical goals for the shift include pain control throughout shift Over the shift, the patient did make progress toward the following goals. Barriers to progression include not wanting to move fear of pain. Recommendations to address these barriers include prn pain medication and encouragement to move to heal. [facility]11-02-2023 Plan of care note* Care Plan - Asha Delvalle - 04/03/2023 9:45 AM EDT Care Transitions: Spoke to patient at bedside concerning accepting SNF and what his FOC is. [facility] and [facility] to accept and [facility] accept with a shared room. Pt voiced he would like to move forward with [facility]. Will update facilities of choice and send updated notes to [facility]. Will initiate the precert process with the team after PT/OT evals are competed. Care team to follow. Asha Delvalle RN/TCC - [phone] Care team notified to start the precert process for SNF insurance approval. Asha Delvalle RN/TCC [facility] Work Phone: 1(105) 636-513311-02-2023 Note* Pre-Procedure Note - Judy Ley MD - 04/03/2023 7:23 AM EDT Post op day # 1 left hemiarthroplasty of hip Doing well early post op Pain is an issue DVT proph with ASA Encouraged insentive Instructed post hip precautions. Left hip Dressing VONNIE intact and min drainage NV intact distally Calves NT bilat Breathing unlabored and able to take a deep breath. Encouraged this with coughing for good pulm toilet Xray post op shows hip in an excellent position. [facility] Work Phone: 1(650) 448-322111-02-2023 Note* Significant Event - Alisha Oden RRT - 04/03/2023 6:43 AM EDT 7L/min [facility]11-02-2023 Plan of care note* Care Plan - Vivian Garcias RN - 04/03/2023 5:54 AM EDT The patient's goals for the shift include The clinical goals for the shift include pain control Problem: Pain - Adult Goal: Verbalizes/displays adequate comfort level or baseline comfort level Outcome: Progressing Problem: Safety - Adult Goal: Free from fall injury Outcome: Progressing Problem: Discharge Planning Goal: Discharge to home or other facility with appropriate resources Outcome: Progressing Problem: Chronic Conditions and Co-morbidities Goal: Patient's chronic conditions and co-morbidity symptoms are monitored and maintained or improved Outcome: Progressing Problem: Skin Goal: Decreased wound size/increased tissue granulation at next dressing change Outcome: Progressing Goal: Participates in plan/prevention/treatment measures Outcome: Progressing Goal: Prevent/manage excess moisture Outcome: Progressing Goal: Prevent/minimize sheer/friction injuries Outcome: Progressing Goal: Promote/optimize nutrition Outcome: Progressing Goal: Promote skin healing Outcome: Progressing Problem: Pain Goal: Takes deep breaths with improved pain control throughout the shift Outcome: Progressing Goal: Turns in bed with improved pain control throughout the shift Outcome: Progressing Goal: Walks with improved pain control throughout the shift Outcome: Progressing Goal: Performs ADL's with improved pain control throughout shift Outcome: Progressing Goal: Participates in PT with improved pain control throughout the shift Outcome: Progressing Goal: Free from opioid side effects throughout the shift Outcome: Progressing Goal: Free from acute confusion related to pain meds throughout the shift Outcome: Progressing In bed with eyes closed this shift for most of the night. Respirations even and unlabored. Bipap remains in place and pt. Is functioning with it on./ Denies any pain this shift. Respirations even andunlabored. Call light within reach, will continue to monitor. [facility]11-01-2023 Note* Op Note - Judy Ley MD - 04/02/2023 12:35 PM EDT Hip Hemiarthroplasty (L) Operative Note Date: 03/31/2023 - 04/02/2023 OR Location: [facility] OR Name: Genet Booth, : 1945, Age: 78 y.o., , Sex: male Diagnosis Pre-op Diagnosis * Closed fracture of left hip, initial encounter ([facility]) [S72.002A] * Obesity, morbid, BMI 40.0-49.9 ([facility]) [E66.01] * Stage 5 chronic kidney disease not on chronic dialysis ([facility]) [N18.5] Post- op Diagnosis * Closed fracture of left hip, initial encounter ([facility]) [S72.002A] * Obesity, morbid, BMI 40.0-49.9 ([facility]) [E66.01] * Stage 5 chronic kidney disease not on chronic dialysis ([facility]) [N18.5] Procedures Hip Hemiarthroplasty 89895 - [place] HEMIARTHROPLASTY HIP PARTIAL Surgeons * Judy Ley - Primary Resident/Fellow/Other Rn Oncology Clinical: Surgeon(s) and Role: Procedure Summary Anesthesia: General ASA: III Anesthesia Staff: Anesthesiologist: Canelo De La Torre MD Estimated Blood Loss: 200 mL Intra-op Medications: Medication Name Total Dose lactated Ringer's infusion Cannot be calculated ceFAZolin in dextrose (iso-os) (Ancef) IVPB 2 g 2 g Anesthesia Record Intraprocedure I/O Totals Intake Ketamine 0.00 mL The total shown is the total volume documented since Anesthesia Start was filed. lactated Ringer's infusion 800.00 mL Total Intake 800 mL Specimen: No specimens collected Staff: Technical Support Representative: Kaylah Iyer RN Scrub Person: Nereyda Philip RN; Edwin Walker RN Drains and/or Catheters: Urethral Catheter (Active) Site Assessment Skin intact 04/02/23 1042 Collection Container Standard drainage bag 04/02/23 1042 Securement Method Securing device (Describe) 04/02/23 1042 Reason for Continuing Urinary Catheterization chronic urinary retention 04/02/23 0749 Output (mL) 700 mL 04/02/23 0349 $ Urethral Catheter Charge Indwelling cath 03/31/23 1545 Tourniquet Times: Implants: Implants Type Name Action Serial No. Joint SLEEVE, V40 +0MM STD TAPER UNITRAX - [id number] Implanted Joint HEAD, ENDO 52MM UNITRAX MODULAR - [id number] Implanted Joint STEM, FEMUR 132D SZ 6 ACCOLADE II - [id number] Implanted Findings: garden 4 femoral neck fracture Indications: Genet Booth is an 78 y.o. male who is having surgery for Closed fracture of left hip, initial encounter ([facility] [facility]) [S72.002A] Obesity, morbid, BMI 40.0-49.9 ([facility]) [E66.01] Stage 5 chronic kidney disease not on chronic dialysis ([facility]) [N18.5]. The patient was seen in the preoperative area. The risks, benefits, complications, treatment options, non-operative alternatives, expected recovery and outcomes were discussed with the patient. The possibilities of reaction to medication, pulmonary aspiration, injury to surrounding structures, bleeding, recurrent infection, the need for additional procedures, failure to diagnose a condition, and creating a complication requiring transfusion or operation were discussed with the patient. The patient concurred with the proposed plan, giving informed consent. The site of surgery was properly noted/marked if necessary per policy. The patient has been actively warmed in preoperative area. Preopera tive antibiotics have been ordered and given within 1 hours of incision. Venous thrombosis prophylaxis have been ordered including unilateral sequential compression device Procedure Details: Indications: The patient has a femoral neck fracture of the hip. The patient wishes to proceed with hip hemiarthroplasty. The procedure was explained along with the risks, benefitsalternatives being reviewed. Potential risks including but not limited to infection, neurovascular complication, instability, loosening, wear, limb length inequality, DVT along with the potential need for reoperation and/or revision surgery were all discussed with the patient and they consented to the procedure. Procedure: The patient was brought to the operative suite. A General anesthetic was administered per anesthesia. The patient was then placed in the lateral decubitus position, surgical side up. An axillary rollwas placed. Pegs were placed in the pegboard and padded. The down leg was well-padded at the knee and ankle. A U drape was used to exclude the operative hip and lower extremity from the rest of the body. The hip and lower extremity was then sterilely prepped with ChloraPrep then sterilely draped inthe usual manner. Timeout was performed, the patient was then identified, the site, laterality and procedure confirmed along with the administration of the antibiotics. I began by identifying landmarks. I made a posterior lateral incision centered over the greater trochanter for a posterior approach to the hip. Dissection was carried down carefully through skin and subcutaneous tissues. Some of the vessels in the fatty tissue were cauterized. I identified the iliotibial band and the gluteus keyla. An incision was made through the iliotibial band and the gluteus keyla insertion was palpated posterior to the incision. The incision was then carried through the superficial fascia of the gluteus. A Charnley retractor was then placed. I then identified the gluteus medius And the piriformis. A Cobra retractor was placed under the gluteus medius and minimus exposing the posterior capsule of the hip. The piriformis was identified and tagged and removed from the piriformis fossa. This was retracted posteriorly. The external rotators were then tagged and removed from their insertion and retracted posteriorly helping to protect the sciatic nerve. The capsulewas then teed. Each corner of the capsule was tagged with a 5 Ethibond suture. The hip fracture wasthen identified. Using the corkscrew the hip ball was removed. This was measured on the back table.I began measuring the actual acetabulum with the measuring ball starting 1 under the measurement for the hip. The correct sized endoprosthesis was chosen. The femoral neck was then cut using the guide to determine the orientation. I then used a Mary tofind the canal. I then used the T-handle canal finder. I then used sequential broaches up to the correct size. This had good rotational stability As well as appropriate distal fit.. I then infiltrated the soft tissues with a mixture of ropivacaine and Toradol. Trial reductions were performed and the correct neck length was chosen. The hip was found to be very stable. There was no push pull. I was able to flex to 90 degrees and extend past neutral. With thehip flexed at 90 degrees I was able to adduct to 45 degrees and internally rotate past 45 degrees and the hip remained anatomically reduced within the acetabulum. The knee and the leg lengths were felt to be equal. At that point I thoroughly copiously irrigated with normal saline. Attention was turned to closure.The capsule was repaired with #1 Ethibond. Drill holes were made in the posterior aspect of the greater trochanter. The capsular repair sutures and the external rotators were brought through the drill holes and then tied over top. This provided a robust posterior capsular repair. The wound was copiously irrigated again. I then closed the fascia los with number#2 Ortho cord. This was done in [id number] fashion. The gluteus keyla was run with a another #2 Ortho cord. The wound was then copiously irrigated again. 2-0 Vicryl sutures were then used to close the subcutaneous tissues. Surgical ema were used for the skin. A vonnie closed suction drain was then applied. Care was taken to make sure that all of the edges of the vonnie drain were watertight. The drain was started and an appropriate designation was obtained that the vonnie was working properly. The patient procedure well. There were no apparent complications. The patient was transferred from the operating room to the recovery room and was in stable condition. Implants: Edwin Accolade 2 #6 Zero neck length 52 mm endoprosthesis. Estimated blood loss: 200 cc. Complications: None Complications: None; patient tolerated the procedure well. Disposition: PACU - hemodynamically stable. Condition: stable Additional Details: none Attending Attestation: Judy Ley [facility] Work Phone: 1(585) 787-982311-01-2023 Attending History and physical note* Judy Ley MD - 04/02/2023 11:10 AM EDT H&P reviewed. The patient was examined and there are no changes to the H&P. Source Note - Judy Ley MD - 04/01/2023 8:28 AM EDT Reason For Consult Left femoral neck fracture History Of Present Illness Genet Booth is a 78 y.o. male presenting with a left femoral neck fracture. He is status post a fall. Past medical history is significant for renal failure. This is an isolated injury. Past Medical History He has a past medical history of Jamison catheter in place on admission, Hypertension, Kidney disease, Prostate cancer ([facility]), and Sleep apnea. Surgical History He has a past surgical history that includes Total knee arthroplasty (Right). Social History He reports that he has quit smoking. His smoking use included cigarettes. He has never used smokeless tobacco. He reports that he does not currently use alcohol. He reports that he does not use drugs. Family History Family History Problem Relation Name Age of Onset Heart failure Mother Alzheimer's disease Father Allergies Bupropion, Meloxicam, Ciprofloxacin, and Iodine Review of Systems Physical Exam Left hip: Nonweightbearing gait Negative Trendelenburg sign Skin healthy and intact No tenderness to palpation over lumbar spine Moderate tenderness over greater trochanter Moderate tenderness referable to groin especially with IR Tender flexion/adduction/internal rotation Positive flexion/abduction/external rotation test Neurovascular exam normal distally Last Recorded Vitals Blood pressure 132/64, pulse 91, temperature 36.7 C (98.1 F), temperature source Temporal, resp. rate 18, height 1.803 m (5' 10.98), weight 107 kg (235 lb 10.8 oz), SpO2 93 %. Relevant Results Scheduled medications [Held by provider] allopurinol, 100 mg, oral, Daily azithromycin, 500 mg, intravenous, q24h calcitriol, 0.25 mcg, oral, Daily cefTRIAXone, 1 g, intravenous, q24h ferrous sulfate, 65 mg of iron, oral, BID influenza, 0.7 mL, intramuscular, During hospitalization fluticasone, 2 spray, Each Nostril, Daily heparin (porcine), 5,000 Units, subcutaneous, q8h isosorbide mononitrate ER, 30 mg, oral, Daily levothyroxine, 88 mcg, oral, Daily before breakfast melatonin, 3 mg, oral, Daily multivitamin with minerals, 1 tablet, oral, Daily oxybutynin, 5 mg, oral, BID polyethylene glycol, 17 g, oral, Daily tiZANidine, 2 mg, oral, Once traZODone, 100 mg, oral, Nightly Continuous medications sodium chloride 0.9%, 75 mL/hr, Last Rate: 75 mL/hr (03/31/232200) PRN medications PRN medications: acetaminophen OR acetaminophen OR acetaminophen, albuterol, cyclobenzaprine, HYDROmorphone, oxyCODONE, oxygen Results for orders placed or performed during the hospital encounter of 03/31/23 (from the past 24 hour(s)) CBC and Auto Differential Result Value Ref Range WBC 15.3 (H) 4.4 - 11.3 x10*3/uL nRBC 0.0 0.0 - 0.0 /100 WBCs RBC 4.06 (L) 4.50 - 5.90 x10*6/uL Hemoglobin 11.6 (L) 13.5 - 17.5 g/dL Hematocrit 38.8 (L) 41.0 - 52.0 % MCV 96 80 - 100 fL MCH 28.6 26.0 - 34.0 pg MCHC 29.9 (L) 32.0 - 36.0 g/dL RDW 15.2 (H) 11.5 - 14.5 % Platelets 293 150 - 450 x10*3/uL MPV 10.0 7.5 - 11.5 fL Neutrophils % 88.6 40.0 - 80.0 % Immature Granulocytes %, Automated 0.5 0.0 - 0.9 % Lymphocytes % 4.8 13.0 - 44.0 % Monocytes % 5.7 2.0 - 10.0 % Eosinophils % 0.1 0.0 - 6.0 % Basophils % 0.3 0.0 - 2.0 % Neutrophils Absolute 13.55 (H) 1.60 - 5.50 x10*3/uL Immature Granulocytes Absolute, Automated 0.07 0.00 - 0.50 x10*3/uL Lymphocytes Absolute 0.73 (L) 0.80 - 3.00 x10*3/uL Monocytes Absolute 0.87 (H) 0.05 - 0.80 x10*3/uL Eosinophils Absolute 0.01 0.00 - 0.40 x10*3/uL Basophils Absolute 0.05 0.00 - 0.10 x10*3/uL Basic metabolic panel Result Value Ref Range Glucose 124 (H) 74 - 99 mg/dL Sodium 137 136 - 145 mmol/L Potassium 4.0 3.5 - 5.3 mmol/L Chloride 106 98 - 107 mmol/L Bicarbonate 17 (L) 21 - 32 mmol/L Anion Gap 18 10 - 20 mmol/L Urea Nitrogen 77 (H) 6 - 23 mg/dL Creatinine 6.46 (H) 0.50 - 1.30 mg/dL eGFR 8 (L) >60 mL/min/1.73m*2 Calcium 8.9 8.6 - 10.3 mg/dL Type And Screen Result Value Ref Range ABO TYPE A Rh TYPE NEG ANTIBODY SCREEN NEG Lactate Result Value Ref Range Lactate 1.5 0.4 - 2.0 mmol/L Blood Culture Specimen: Peripheral Venipuncture; Blood culture Result Value Ref Range Blood Culture Loaded on Instrument - Culture in progress CBC Result Value Ref Range WBC 11.5 (H) 4.4 - 11.3 x10*3/uL nRBC 0.0 0.0 - 0.0 /100 WBCs RBC 3.78 (L) 4.50 - 5.90 x10*6/uL Hemoglobin 10.7 (L) 13.5 - 17.5 g/dL Hematocrit 35.9 (L) 41.0 - 52.0 % MCV 95 80 - 100 fL MCH 28.3 26.0 - 34.0 pg MCHC 29.8 (L) 32.0 - 36.0 g/dL RDW 15.0 (H) 11.5 - 14.5 % Platelets 265 150 - 450 x10*3/uL MPV 10.2 7.5 - 11.5 fL Comprehensive metabolic panel Result Value Ref Range Glucose 115 (H) 74 - 99 mg/dL Sodium 136 136 - 145 mmol/L Potassium 4.6 3.5 - 5.3 mmol/L Chloride 105 98 - 107 mmol/L Bicarbonate 19 (L) 21 - 32 mmol/L Anion Gap 17 10 - 20 mmol/L Urea Nitrogen 70 (H) 6 - 23 mg/dL Creatinine 6.24 (H) 0.50 - 1.30 mg/dL eGFR 9 (L) >60 mL/min/1.73m*2 Calcium 8.5 (L) 8.6 - 10.3 mg/dL Albumin 3.5 3.4 - 5.0 g/dL Alkaline Phosphatase 72 33 - 136 U/L Total Protein 7.4 6.4 - 8.2 g/dL AST 29 9 - 39 U/L Bilirubin, Total 0.4 0.0 - 1.2 mg/dL ALT 13 10 - 52 U/L Assessment/Plan Left Garden 4 femoral neck fracture Plan: Medically clear for surgery including renal consult and input. Plan for hemiarthroplasty on 04/02/2023 N.p.o. after midnight tonight for surgery on Friday. Discussed the risks and benefits of the proposed procedure with the patient he is aware of these and he wishes to proceed forward with surgical intervention. Judy Ley MD [facility] Work Phone: [phone] 529-650911-01-2023 History and physical note* Judy Ley MD - 04/02/2023 11:10 AM EDT H&P reviewed. The patient was examined and there are no changes to the H&P. Source Note - Judy Ley MD - 04/01/2023 8:28 AM EDT Reason For Consult Left femoral neck fracture History Of Present Illness Genet Booth is a 78 y.o. male presenting with a left femoral neck fracture. He is status post a fall. Past medical history is significant for renal failure. This is an isolated injury. Past Medical History He has a past medical history of Jamison catheter in place on admission, Hypertension, Kidney disease, Prostate cancer (CMS/HCC), and Sleep apnea. Surgical History He has a past surgical history that includes Total knee arthroplasty (Right). Social History He reports that he has quit smoking. His smoking use included cigarettes. He has never used smokeless tobacco. He reports that he does not currently use alcohol. He reports that he does not use drugs. Family History Family History Problem Relation Name Age of Onset Heart failure Mother Alzheimer's disease Father Allergies Bupropion, Meloxicam, Ciprofloxacin, and Iodine Review of Systems Physical Exam Left hip: Nonweightbearing gait Negative Trendelenburg sign Skin healthy and intact No tenderness to palpation over lumbar spine Moderate tenderness over greater trochanter Moderate tenderness referable to groin especially with IR Tender flexion/adduction/internal rotation Positive flexion/abduction/external rotation test Neurovascular exam normal distally Last Recorded Vitals Blood pressure 132/64, pulse 91, temperature 36.7 C (98.1 F), temperature source Temporal, resp. rate 18, height 1.803 m (5' 10.98), weight 107 kg (235 lb 10.8 oz), SpO2 93 %. Relevant Results Scheduled medications [Held by provider] allopurinol, 100 mg, oral, Daily azithromycin, 500 mg, intravenous, q24h calcitriol, 0.25 mcg, oral, Daily cefTRIAXone, 1 g, intravenous, q24h ferrous sulfate, 65 mg of iron, oral, BID influenza, 0.7 mL, intramuscular, During hospitalization fluticasone, 2 spray, Each Nostril, Daily heparin (porcine), 5,000 Units, subcutaneous, q8h isosorbide mononitrate ER, 30 mg, oral, Daily levothyroxine, 88 mcg, oral, Daily before breakfast melatonin, 3 mg, oral, Daily multivitamin with minerals, 1 tablet, oral, Daily oxybutynin, 5 mg, oral, BID polyethylene glycol, 17 g, oral, Daily tiZANidine, 2 mg, oral, Once traZODone, 100 mg, oral, Nightly Continuous medications sodium chloride 0.9%, 75 mL/hr, Last Rate: 75 mL/hr (03/31/23 2201) PRN medications PRN medications: acetaminophen OR acetaminophen OR acetaminophen, albuterol, cyclobenzaprine, HYDROmorphone, oxyCODONE, oxygen Results for orders placed or performed during the hospital encounter of 03/31/23 (from the past 24 hour(s)) CBC and Auto Differential Result Value Ref Range WBC 15.3 (H) 4.4 - 11.3 x10*3/uL nRBC 0.0 0.0 - 0.0 /100 WBCs RBC 4.06 (L) 4.50 - 5.90 x10*6/uL Hemoglobin 11.6 (L) 13.5 - 17.5 g/dL Hematocrit 38.8 (L) 41.0 - 52.0 % MCV 96 80 - 100 fL MCH 28.6 26.0 - 34.0 pg MCHC 29.9 (L) 32.0 - 36.0 g/dL RDW 15.2 (H) 11.5 - 14.5 % Platelets 293 150 - 450 x10*3/uL MPV 10.0 7.5 - 11.5 fL Neutrophils % 88.6 40.0 - 80.0 % Immature Granulocytes %, Automated 0.5 0.0 - 0.9 % Lymphocytes % 4.8 13.0 - 44.0 % Monocytes % 5.7 2.0 - 10.0 % Eosinophils % 0.1 0.0 - 6.0 % Basophils % 0.3 0.0 - 2.0 % Neutrophils Absolute 13.55 (H) 1.60 - 5.50 x10*3/uL Immature Granulocytes Absolute, Automated 0.07 0.00 - 0.50 x10*3/uL Lymphocytes Absolute 0.73 (L) 0.80 - 3.00 x10*3/uL Monocytes Absolute 0.87 (H) 0.05 - 0.80 x10*3/uL Eosinophils Absolute 0.01 0.00 - 0.40 x10*3/uL Basophils Absolute 0.05 0.00 - 0.10 x10*3/uL Basic metabolic panel Result Value Ref Range Glucose 124 (H) 74 - 99 mg/dL Sodium 137 136 - 145 mmol/L Potassium 4.0 3.5 - 5.3 mmol/L Chloride 106 98 - 107 mmol/L Bicarbonate 17 (L) 21 - 32 mmol/L Anion Gap 18 10 - 20 mmol/L Urea Nitrogen 77 (H) 6 - 23 mg/dL Creatinine 6.46 (H) 0.50 - 1.30 mg/dL eGFR 8 (L) >60 mL/min/1.73m*2 Calcium 8.9 8.6 - 10.3 mg/dL Type And Screen Result Value Ref Range ABO TYPE A Rh TYPE NEG ANTIBODY SCREEN NEG Lactate Result Value Ref Range Lactate 1.5 0.4 - 2.0 mmol/L Blood Culture Specimen: Peripheral Venipuncture; Blood culture Result Value Ref Range Blood Culture Loaded on Instrument - Culture in progress CBC Result Value Ref Range WBC 11.5 (H) 4.4 - 11.3 x10*3/uL nRBC 0.0 0.0 - 0.0 /100 WBCs RBC 3.78 (L) 4.50 - 5.90 x10*6/uL Hemoglobin 10.7 (L) 13.5 - 17.5 g/dL Hematocrit 35.9 (L) 41.0 - 52.0 % MCV 95 80 - 100 fL MCH 28.3 26.0 - 34.0 pg MCHC 29.8 (L) 32.0 - 36.0 g/dL RDW 15.0 (H) 11.5 - 14.5 % Platelets 265 150 - 450 x10*3/uL MPV 10.2 7.5 - 11.5 fL Comprehensive metabolic panel Result Value Ref Range Glucose 115 (H) 74 - 99 mg/dL Sodium 136 136 - 145 mmol/L Potassium 4.6 3.5 - 5.3 mmol/L Chloride 105 98 - 107 mmol/L Bicarbonate 19 (L) 21 - 32 mmol/L Anion Gap 17 10 - 20 mmol/L Urea Nitrogen 70 (H) 6 - 23 mg/dL Creatinine 6.24 (H) 0.50 - 1.30 mg/dL eGFR 9 (L) >60 mL/min/1.73m*2 Calcium 8.5 (L) 8.6 - 10.3 mg/dL Albumin 3.5 3.4 - 5.0 g/dL Alkaline Phosphatase 72 33 - 136 U/L Total Protein 7.4 6.4 - 8.2 g/dL AST 29 9 - 39 U/L Bilirubin, Total 0.4 0.0 - 1.2 mg/dL ALT 13 10 - 52 U/L Assessment/Plan Left Garden 4 femoral neck fracture Plan: Medically clear for surgery including renal consult and input. Plan for hemiarthroplasty on 04/02/2023 N.p.o. after midnight tonight for surgery on Friday. Discussed the risks and benefits of the proposed procedure with the patient he is aware of these and he wishes to proceed forward with surgical intervention. Judy Ley MD * Lina Baca, HAND [employer] - 03/31/2023 4:28 PM EDT History Of Present Illness Genet Booth is a 78 y.o. male with past medical history of hypertension, hyperlipidemia, pneumonia, UTI, chronic Jamison, follows with Dr. Maldonado, chronic Jamison was changed 2-1/2 weeks ago, gout, acid reflux, hepatitis C, CKD, and prostate cancer(was treated with radiation 14 years ago) presenting toER by squad post fall. Patient states that he fell down 3 steps and landed on left hip on a cement.He was using his foot to put a blanket away that was that was on the floor and unfortunately his movement of the leg caused the patient to lose his balance. It took him 1 hour to crawl back to the first floor of his house and called 911. Denies hitting head or loss of consciousness. At the ER bloodwork is significant for BUN 77, creatinine 6.46, GFR 8, WBC 15.3, and absolute neutrophils 13.55. Chest x-ray revealed left basilar airspace consolidation. Left hip x-ray is positive for left femoralneck fracture. Past Medical History Past Medical History: Diagnosis Date Jamison catheter in place on admission Hypertension Kidney disease Prostate cancer (CMS/HCC) Sleep apnea Surgical History History reviewed. No pertinent surgical history. Social History He reports that he has quit smoking. His smoking use included cigarettes. He has never used smokeless tobacco. He reports that he does not currently use alcohol. He reports that he does not use drugs. Family History No family history on file. Allergies Bupropion, Meloxicam, Ciprofloxacin, and Iodine Review of Systems Constitutional: Positive for activity change and fatigue. HENT: Positive for congestion and sinus pressure. Eyes: Negative. Respiratory: Negative. Cardiovascular: Negative. Gastrointestinal: Negative. Genitourinary: Negative. Musculoskeletal: Positive for gait problem. Skin: Positive for wound. Left hip, unable to assess at this time due to pain Allergic/Immunologic: Negative. Neurological: Positive for weakness. Hematological: Negative. Psychiatric/Behavioral: Negative. Physical Exam Constitutional: Appearance: He is obese. HENT: Head: Normocephalic and atraumatic. Nose: Congestion present. Mouth/Throat: Mouth: Mucous membranes are moist. Eyes: Extraocular Movements: Extraocular movements intact. Pupils: Pupils are equal, round, and reactive to light. Cardiovascular: Rate and Rhythm: Normal rate and regular rhythm. Pulses: Normal pulses. Heart sounds: Normal heart sounds. Pulmonary: Effort: Pulmonary effort is normal. Breath sounds: Normal breath sounds. Abdominal: General: Bowel sounds are normal. There is distension. Palpations: Abdomen is soft. Musculoskeletal: General: No signs of injury. Cervical back: Normal range of motion and neck supple. Comments: Left hip fx Skin: General: Skin is warm. Neurological: General: No focal deficit present. Mental Status: He is alert and oriented to person, place, and time. Psychiatric: Mood and Affect: Mood normal. Behavior: Behavior normal. Thought Content: Thought content normal. Judgment: Judgment normal. Last Recorded Vitals Blood pressure 131/77, pulse 72, resp. rate 16, height 1.803 m (5' 11), weight 108 kg (237 lb), SpO2 96 %. Relevant Results Scheduled medications [Held by provider] allopurinol, 100 mg, oral, Daily azithromycin, 500 mg, intravenous, Once [START ON 04/01/2023] azithromycin, 500 mg, intravenous, q24h calcitriol, 0.25 mcg, oral, Daily [START ON 04/01/2023] cefTRIAXone, 1 g, intravenous, q24h epoetin kacie, 20,000 Units, subcutaneous, Once per day on Fri ferrous sulfate, 65 mg of iron, oral, BID fluticasone, 2 spray, Each Nostril, Daily heparin (porcine), 5,000 Units, subcutaneous, q8h isosorbide mononitrate ER, 30 mg, oral, Daily [START ON 04/01/2023] levothyroxine, 88 mcg, oral, Daily before breakfast melatonin, 3 mg, oral, Daily oxybutynin, 5 mg, oral, BID polyethylene glycol, 17 g, oral, Daily Continuous medications sodium chloride 0.9%, 75 mL/hr PRN medications PRN medications: acetaminophen OR acetaminophen OR acetaminophen Results for orders placed or performed during the hospital encounter of 03/31/23 (from the past 24 hour(s)) CBC and Auto Differential Result Value Ref Range WBC 15.3 (H) 4.4 - 11.3 x10*3/uL nRBC 0.0 0.0 - 0.0 /100 WBCs RBC 4.06 (L) 4.50 - 5.90 x10*6/uL Hemoglobin 11.6 (L) 13.5 - 17.5 g/dL Hematocrit 38.8 (L) 41.0 - 52.0 % MCV 96 80 - 100 fL MCH 28.6 26.0 - 34.0 pg MCHC 29.9 (L) 32.0 - 36.0 g/dL RDW 15.2 (H) 11.5 - 14.5 % Platelets 293 150 - 450 x10*3/uL MPV 10.0 7.5 - 11.5 fL Neutrophils % 88.6 40.0 - 80.0 % Immature Granulocytes %, Automated 0.5 0.0 - 0.9 % Lymphocytes % 4.8 13.0 - 44.0 % Monocytes % 5.7 2.0 - 10.0 % Eosinophils % 0.1 0.0 - 6.0 % Basophils % 0.3 0.0 - 2.0 % Neutrophils Absolute 13.55 (H) 1.60 - 5.50 x10*3/uL Immature Granulocytes Absolute, Automated 0.07 0.00 - 0.50 x10*3/uL Lymphocytes Absolute 0.73 (L) 0.80 - 3.00 x10*3/uL Monocytes Absolute 0.87 (H) 0.05 - 0.80 x10*3/uL Eosinophils Absolute 0.01 0.00 - 0.40 x10*3/uL Basophils Absolute 0.05 0.00 - 0.10 x10*3/uL Basic metabolic panel Result Value Ref Range Glucose 124 (H) 74 - 99 mg/dL Sodium 137 136 - 145 mmol/L Potassium 4.0 3.5 - 5.3 mmol/L Chloride 106 98 - 107 mmol/L Bicarbonate 17 (L) 21 - 32 mmol/L Anion Gap 18 10 - 20 mmol/L Urea Nitrogen 77 (H) 6 - 23 mg/dL Creatinine 6.46 (H) 0.50 - 1.30 mg/dL eGFR 8 (L) >60 mL/min/1.73m*2 Calcium 8.9 8.6 - 10.3 mg/dL Type And Screen Result Value Ref Range ABO TYPE A Rh TYPE NEG ANTIBODY SCREEN NEG Lactate Result Value Ref Range Lactate 1.5 0.4 - 2.0 mmol/L XR chest 1 view Result Date: 03/31/2023 Interpreted By: Zane Boyce, STUDY: XR CHEST 1 VIEW 03/31/2023 2:01 pm INDICATION: Signs/Symptoms:fx COMPARISON: 01/08/2023 ACCESSION NUMBER(S): [id number] ORDERING CLINICIAN: JUANITO ESPINOZA TECHNIQUE: 2 AP portable radiographs of the chest were obtained FINDINGS: A left basilar airspace consolidation is seen and may represent small pleural effusion, atelectasis and/or pneumonia. No pneumothorax is identified. The cardiac silhouette is enlarged, similar to prior studies. Left basilar airspace consolidation, as above. Clinical correlation and continued follow-up until clearing is recommended. MACRO: None. Signed by: Zane Boyce 03/31/2023 2:15 PM Dictation workstation: [id number] XR hip left 2 or 3 views Result Date: 03/31/2023 Interpreted By: Zane Boyce, STUDY: XR HIP LEFT 2 OR 3 VIEWS 03/31/2023 2:00 pm INDICATION: Signs/Symptoms:pain COMPARISON: None. ACCESSION NUMBER(S): [id number] ORDERING CLINICIAN: JUANITO ESPINOZA TECHNIQUE: A single AP view of the pelvis as well as AP and lateral views of the left hip were obtained. FINDINGS: A transverse fracture is seen through the subcapital aspect of the left femoral neck. There is no evidence of additional fracture or dislocation identified. Mild degenerative changes are seen in the hips and sacroiliac joints bilaterally. Rounded calcifications are seen with throughout the pelvis, most consistent with phleboliths. 1. Left femoral neck fracture, as above. 2. Degenerative changes, as described above. MACRO: None. Signed by: Zane Boyce 03/31/2023 2:14 PM Dictation workstation: [id number] Assessment/Plan Principal Problem: Closed fracture of left hip, initial encounter ([facility]) Genet Booth is a 78 y.o. male with past medical history of hypertension, hyperlipidemia, pneumonia, UTI, chronic Jamison, follows with Dr. Maldonado, chronic Jamison was changed 2-1/2 weeks ago, gout, acid reflux, hepatitis C, CKD, and prostate cancer(was treated with radiation 14 years ago) presenting toER by squad post fall. Patient states that he fell down 3 steps and landed on left hip on a cement.He was using his foot to put a blanket away that was that was on the floor and unfortunately his movement of the leg caused the patient to lose his balance. It took him 1 hour to crawl back to the first floor of his house and called 911. Denies hitting head or loss of consciousness. At the ER bloodwork is significant for BUN 77, creatinine 6.46, GFR 8, WBC 15.3, and absolute neutrophils 13.55. Chest x-ray revealed left basilar airspace consolidation. Left hip x-ray is positive for left femoralneck fracture. We will admit him for left lobe pneumonia, left hip fracture, and CHLOE on CKD. With Ortho. Surgery and nephrology on consult. #Closed fracture of left hip, initial encounter -Orthopedic surgery consulted -Bedrest until changed by orthopedic -Plan for surgery on Friday -Pain management -Bowel regimen to prevent constipation #Acute Kidney Injury on CKD BUN 77, Cr. 6.46 -Nephrology consulted recommendations appreciated -Strict I&Os, daily weight -Exchange Jamison it if it was not done at the ER -UA -Trend renal panel -IVF challenge to see if Cr improves - renal U/S ordered #Chronic Jamison -Last time was changed 2-1/2 weeks ago -Change Jamison if it was not done at the ER #Sinusitis -Flonase nasal spray ordered #Pneumonia -Chest Xray showed Left basilar airspace consolidation CBC showed: WBC 15.3 Sputum production none Plan: -Blood cx Urine antigens for Legionella and strep pneumonia ordered - IV azithromycin and IV ceftriaxone day 1 -Patient is on O2 NC 2 L -Bronchodilators I spent 40 minutes in the professional and overall care of this patient. Lina Baca APRN-CLINICAL TRIAL HEAD [facility] Work Phone: 1(767) 622-889511-01-2023 Plan of care note* Care Plan - Tessy Quiroz RN - 04/02/2023 5:55 AM EDT The patient's goals for the shift include The clinical goals for the shift include pain control Pt pain controlled with pain medication this shift. Pt been NPO since midnight for surgery today. [facility] Work Phone: [phone] 468-485210-31-2023 Consult note* Tiana De León, - 04/01/2023 10:26 AM EDT Reason For Consult Chronic kidney disease History Of Present Illness Genet Booth is a 78 y.o. male presenting with fall. He presented to the hospital after having a fall at home. He states that he was walking down the stairs and tripped over a blanket he had thrown down the stairs It took him an hour to crawl back up the stairs and then for someone to be able to call the ambulance for him He is having pretty severe pain on the left side. He has his Jamison catheter in place Except for the fall with the left hip pain he really has no other complaints at this time Past Medical History He has a past medical history of Jamison catheter in place on admission, Hypertension, Kidney disease, Prostate cancer (CMS/HCC), and Sleep apnea. Surgical History He has a past surgical history that includes Total knee arthroplasty (Right). Social History He reports that he has quit smoking. His smoking use included cigarettes. He has never used smokeless tobacco. He reports that he does not currently use alcohol. He reports that he does not use drugs. Family History Family History Problem Relation Name Age of Onset Heart failure Mother Alzheimer's disease Father Allergies Bupropion, Meloxicam, Ciprofloxacin, and Iodine Review of Systems A full 10 point review of systems was obtained and is negative except the HPI as above Physical Exam Physical Exam Constitutional: Appearance: Normal appearance. HENT: Head: Normocephalic and atraumatic. Right Ear: External ear normal. Left Ear: External ear normal. Nose: Nose normal. Mouth/Throat: Mouth: Mucous membranes are moist. Pharynx: Oropharynx is clear. Eyes: Extraocular Movements: Extraocular movements intact. Conjunctiva/sclera: Conjunctivae normal. Pupils: Pupils are equal, round, and reactive to light. Cardiovascular: Rate and Rhythm: Normal rate and regular rhythm. Pulmonary: Effort: Pulmonary effort is normal. Breath sounds: Normal breath sounds. Abdominal: General: Abdomen is flat. Palpations: Abdomen is soft. Genitourinary: Comments: Chronic indwelling Jamison catheter in place Skin: General: Skin is warm and dry. Neurological: General: No focal deficit present. Mental Status: He is alert and oriented to person, place, and time. Psychiatric: Mood and Affect: Mood normal. Behavior: Behavior normal. I&O 24HR Intake/Output Summary (Last 24 hours) at 04/01/2023 1026 Last data filed at 04/01/2023 0500 Gross per 24 hour Intake 1898.75 ml Output 800 ml Net 1098.75 ml Vitals 24HR Heart Rate: [72-95] Temp: [36.4 C (97.5 F)-37 C (98.6 F)] Resp: [16-23] BP: (125-152)/(64-89) Height: [180.3 cm (5' 10.98)-180.3 cm (5' 11)] Weight: [106 kg (234 lb 2.1 oz)-108 kg (237 lb)] SpO2: [89 %-98 %] Scheduled medications [Held by provider] allopurinol, 100 mg, oral, Daily azithromycin, 500 mg, intravenous, q24h calcitriol, 0.25 mcg, oral, Daily cefTRIAXone, 1 g, intravenous, q24h ferrous sulfate, 65 mg of iron, oral, BID influenza, 0.7 mL, intramuscular, During hospitalization fluticasone, 2 spray, Each Nostril, Daily heparin (porcine), 5,000 Units, subcutaneous, q8h isosorbide mononitrate ER, 30 mg, oral, Daily levothyroxine, 88 mcg, oral, Daily before breakfast melatonin, 3 mg, oral, Daily multivitamin with minerals, 1 tablet, oral, Daily oxybutynin, 5 mg, oral, BID polyethylene glycol, 17 g, oral, Daily tiZANidine, 2 mg, oral, Once traZODone, 100 mg, oral, Nightly Continuous medications sodium chloride 0.9%, 75 mL/hr, Last Rate: 75 mL/hr (04/01/23 1022) PRN medications PRN medications: acetaminophen OR acetaminophen OR acetaminophen, albuterol, cyclobenzaprine, HYDROmorphone, oxyCODONE, oxygen Relevant Results Results for orders placed or performed during the hospital encounter of 03/31/23 (from the past 24 hour(s)) CBC and Auto Differential Result Value Ref Range WBC 15.3 (H) 4.4 - 11.3 x10*3/uL nRBC 0.0 0.0 - 0.0 /100 WBCs RBC 4.06 (L) 4.50 - 5.90 x10*6/uL Hemoglobin 11.6 (L) 13.5 - 17.5 g/dL Hematocrit 38.8 (L) 41.0 - 52.0 % MCV 96 80 - 100 fL MCH 28.6 26.0 - 34.0 pg MCHC 29.9 (L) 32.0 - 36.0 g/dL RDW 15.2 (H) 11.5 - 14.5 % Platelets 293 150 - 450 x10*3/uL MPV 10.0 7.5 - 11.5 fL Neutrophils % 88.6 40.0 - 80.0 % Immature Granulocytes %, Automated 0.5 0.0 - 0.9 % Lymphocytes % 4.8 13.0 - 44.0 % Monocytes % 5.7 2.0 - 10.0 % Eosinophils % 0.1 0.0 - 6.0 % Basophils % 0.3 0.0 - 2.0 % Neutrophils Absolute 13.55 (H) 1.60 - 5.50 x10*3/uL Immature Granulocytes Absolute, Automated 0.07 0.00 - 0.50 x10*3/uL Lymphocytes Absolute 0.73 (L) 0.80 - 3.00 x10*3/uL Monocytes Absolute 0.87 (H) 0.05 - 0.80 x10*3/uL Eosinophils Absolute 0.01 0.00 - 0.40 x10*3/uL Basophils Absolute 0.05 0.00 - 0.10 x10*3/uL Basic metabolic panel Result Value Ref Range Glucose 124 (H) 74 - 99 mg/dL Sodium 137 136 - 145 mmol/L Potassium 4.0 3.5 - 5.3 mmol/L Chloride 106 98 - 107 mmol/L Bicarbonate 17 (L) 21 - 32 mmol/L Anion Gap 18 10 - 20 mmol/L Urea Nitrogen 77 (H) 6 - 23 mg/dL Creatinine 6.46 (H) 0.50 - 1.30 mg/dL eGFR 8 (L) >60 mL/min/1.73m*2 Calcium 8.9 8.6 - 10.3 mg/dL Type And Screen Result Value Ref Range ABO TYPE A Rh TYPE NEG ANTIBODY SCREEN NEG Lactate Result Value Ref Range Lactate 1.5 0.4 - 2.0 mmol/L Blood Culture Specimen: Peripheral Venipuncture; Blood culture Result Value Ref Range Blood Culture Loaded on Instrument - Culture in progress CBC Result Value Ref Range WBC 11.5 (H) 4.4 - 11.3 x10*3/uL nRBC 0.0 0.0 - 0.0 /100 WBCs RBC 3.78 (L) 4.50 - 5.90 x10*6/uL Hemoglobin 10.7 (L) 13.5 - 17.5 g/dL Hematocrit 35.9 (L) 41.0 - 52.0 % MCV 95 80 - 100 fL MCH 28.3 26.0 - 34.0 pg MCHC 29.8 (L) 32.0 - 36.0 g/dL RDW 15.0 (H) 11.5 - 14.5 % Platelets 265 150 - 450 x10*3/uL MPV 10.2 7.5 - 11.5 fL Comprehensive metabolic panel Result Value Ref Range Glucose 115 (H) 74 - 99 mg/dL Sodium 136 136 - 145 mmol/L Potassium 4.6 3.5 - 5.3 mmol/L Chloride 105 98 - 107 mmol/L Bicarbonate 19 (L) 21 - 32 mmol/L Anion Gap 17 10 - 20 mmol/L Urea Nitrogen 70 (H) 6 - 23 mg/dL Creatinine 6.24 (H) 0.50 - 1.30 mg/dL eGFR 9 (L) >60 mL/min/1.73m*2 Calcium 8.5 (L) 8.6 - 10.3 mg/dL Albumin 3.5 3.4 - 5.0 g/dL Alkaline Phosphatase 72 33 - 136 U/L Total Protein 7.4 6.4 - 8.2 g/dL AST 29 9 - 39 U/L Bilirubin, Total 0.4 0.0 - 1.2 mg/dL ALT 13 10 - 52 U/L Basic Metabolic Panel Result Value Ref Range Glucose 115 (H) 74 - 99 mg/dL Sodium 136 136 - 145 mmol/L Potassium 4.5 3.5 - 5.3 mmol/L Chloride 107 98 - 107 mmol/L Bicarbonate 19 (L) 21 - 32 mmol/L Anion Gap 15 10 - 20 mmol/L Urea Nitrogen 70 (H) 6 - 23 mg/dL Creatinine 6.40 (H) 0.50 - 1.30 mg/dL eGFR 8 (L) >60 mL/min/1.73m*2 Calcium 8.0 (L) 8.6 - 10.3 mg/dL Assessment/Plan Chronic kidney disease stage V Anemia Hypertension Normal anion gap metabolic acidosis Left hip fracture Bilateral hydronephrosis with right stent in place Plan: At this time his renal function is fairly stable for him I did discuss with Dr. Bah At this time really no need for intervention from his standpoint A intervention would actually be pretty difficult with his hip fracture and likely intervention is not going to help his renal function anymore His hydronephrosis has been present for a very long period of time and even with a stent in place in the right side and the last time the left ureter was not able to be cannulated and so at this timereally his kidney function is probably as good as it is going to get No need for renal replacement therapy at this time Restart sodium bicarbonate He is on broad-spectrum antibiotics per primary Thanks for the consult Principal Problem: Closed fracture of left hip, initial encounter ([facility]) Active Problems: Stage 5 chronic kidney disease not on chronic dialysis ([facility]) Obesity, morbid, BMI 40.0-49.9 ([facility]) Tiana De León DO [facility] Work Phone: [phone] Consult note* Tiana De León DO - 04/01/2023 10:26 AM EDT Reason For Consult Chronic kidney disease History Of Present Illness Genet Booth is a 78 y.o. male presenting with fall. He presented to the hospital after having a fall at home. He states that he was walking down the stairs and tripped over a blanket he had thrown down the stairs It took him an hour to crawl back up the stairs and then for someone to be able to call the ambulance for him He is having pretty severe pain on the left side. He has his Jamison catheter in place Except for the fall with the left hip pain he really has no other complaints at this time Past Medical History He has a past medical history of Jamison catheter in place on admission, Hypertension, Kidney disease, Prostate cancer (CMS/HCC), and Sleep apnea. Surgical History He has a past surgical history that includes Total knee arthroplasty (Right). Social History He reports that he has quit smoking. His smoking use included cigarettes. He has never used smokeless tobacco. He reports that he does not currently use alcohol. He reports that he does not use drugs. Family History Family History Problem Relation Name Age of Onset Heart failure Mother Alzheimer's disease Father Allergies Bupropion, Meloxicam, Ciprofloxacin, and Iodine Review of Systems A full 10 point review of systems was obtained and is negative except the HPI as above Physical Exam Physical Exam Constitutional: Appearance: Normal appearance. HENT: Head: Normocephalic and atraumatic. Right Ear: External ear normal. Left Ear: External ear normal. Nose: Nose normal. Mouth/Throat: Mouth: Mucous membranes are moist. Pharynx: Oropharynx is clear. Eyes: Extraocular Movements: Extraocular movements intact. Conjunctiva/sclera: Conjunctivae normal. Pupils: Pupils are equal, round, and reactive to light. Cardiovascular: Rate and Rhythm: Normal rate and regular rhythm. Pulmonary: Effort: Pulmonary effort is normal. Breath sounds: Normal breath sounds. Abdominal: General: Abdomen is flat. Palpations: Abdomen is soft. Genitourinary: Comments: Chronic indwelling Jamison catheter in place Skin: General: Skin is warm and dry. Neurological: General: No focal deficit present. Mental Status: He is alert and oriented to person, place, and time. Psychiatric: Mood and Affect: Mood normal. Behavior: Behavior normal. I&O 24HR Intake/Output Summary (Last 24 hours) at 04/01/2023 1026 Last data filed at 04/01/2023 0500 Gross per 24 hour Intake 1898.75 ml Output 800 ml Net 1098.75 ml Vitals 24HR Heart Rate: [72-95] Temp: [36.4 C (97.5 F)-37 C (98.6 F)] Resp: [16-23] BP: (125-152)/(64-89) Height: [180.3 cm (5' 10.98)-180.3 cm (5' 11)] Weight: [106 kg (234 lb 2.1 oz)-108 kg (237 lb)] SpO2: [89 %-98 %] Scheduled medications [Held by provider] allopurinol, 100 mg, oral, Daily azithromycin, 500 mg, intravenous, q24h calcitriol, 0.25 mcg, oral, Daily cefTRIAXone, 1 g, intravenous, q24h ferrous sulfate, 65 mg of iron, oral, BID influenza, 0.7 mL, intramuscular, During hospitalization fluticasone, 2 spray, Each Nostril, Daily heparin (porcine), 5,000 Units, subcutaneous, q8h isosorbide mononitrate ER, 30 mg, oral, Daily levothyroxine, 88 mcg, oral, Daily before breakfast melatonin, 3 mg, oral, Daily multivitamin with minerals, 1 tablet, oral, Daily oxybutynin, 5 mg, oral, BID polyethylene glycol, 17 g, oral, Daily tiZANidine, 2 mg, oral, Once traZODone, 100 mg, oral, Nightly Continuous medications sodium chloride 0.9%, 75 mL/hr, Last Rate: 75 mL/hr (04/01/23 1022) PRN medications PRN medications: acetaminophen OR acetaminophen OR acetaminophen, albuterol, cyclobenzaprine, HYDROmorphone, oxyCODONE, oxygen Relevant Results Results for orders placed or performed during the hospital encounter of 03/31/23 (from the past 24 hour(s)) CBC and Auto Differential Result Value Ref Range WBC 15.3 (H) 4.4 - 11.3 x10*3/uL nRBC 0.0 0.0 - 0.0 /100 WBCs RBC 4.06 (L) 4.50 - 5.90 x10*6/uL Hemoglobin 11.6 (L) 13.5 - 17.5 g/dL Hematocrit 38.8 (L) 41.0 - 52.0 % MCV 96 80 - 100 fL MCH 28.6 26.0 - 34.0 pg MCHC 29.9 (L) 32.0 - 36.0 g/dL RDW 15.2 (H) 11.5 - 14.5 % Platelets 293 150 - 450 x10*3/uL MPV 10.0 7.5 - 11.5 fL Neutrophils % 88.6 40.0 - 80.0 % Immature Granulocytes %, Automated 0.5 0.0 - 0.9 % Lymphocytes % 4.8 13.0 - 44.0 % Monocytes % 5.7 2.0 - 10.0 % Eosinophils % 0.1 0.0 - 6.0 % Basophils % 0.3 0.0 - 2.0 % Neutrophils Absolute 13.55 (H) 1.60 - 5.50 x10*3/uL Immature Granulocytes Absolute, Automated 0.07 0.00 - 0.50 x10*3/uL Lymphocytes Absolute 0.73 (L) 0.80 - 3.00 x10*3/uL Monocytes Absolute 0.87 (H) 0.05 - 0.80 x10*3/uL Eosinophils Absolute 0.01 0.00 - 0.40 x10*3/uL Basophils Absolute 0.05 0.00 - 0.10 x10*3/uL Basic metabolic panel Result Value Ref Range Glucose 124 (H) 74 - 99 mg/dL Sodium 137 136 - 145 mmol/L Potassium 4.0 3.5 - 5.3 mmol/L Chloride 106 98 - 107 mmol/L Bicarbonate 17 (L) 21 - 32 mmol/L Anion Gap 18 10 - 20 mmol/L Urea Nitrogen 77 (H) 6 - 23 mg/dL Creatinine 6.46 (H) 0.50 - 1.30 mg/dL eGFR 8 (L) >60 mL/min/1.73m*2 Calcium 8.9 8.6 - 10.3 mg/dL Type And Screen Result Value Ref Range ABO TYPE A Rh TYPE NEG ANTIBODY SCREEN NEG Lactate Result Value Ref Range Lactate 1.5 0.4 - 2.0 mmol/L Blood Culture Specimen: Peripheral Venipuncture; Blood culture Result Value Ref Range Blood Culture Loaded on Instrument - Culture in progress CBC Result Value Ref Range WBC 11.5 (H) 4.4 - 11.3 x10*3/uL nRBC 0.0 0.0 - 0.0 /100 WBCs RBC 3.78 (L) 4.50 - 5.90 x10*6/uL Hemoglobin 10.7 (L) 13.5 - 17.5 g/dL Hematocrit 35.9 (L) 41.0 - 52.0 % MCV 95 80 - 100 fL MCH 28.3 26.0 - 34.0 pg MCHC 29.8 (L) 32.0 - 36.0 g/dL RDW 15.0 (H) 11.5 - 14.5 % Platelets 265 150 - 450 x10*3/uL MPV 10.2 7.5 - 11.5 fL Comprehensive metabolic panel Result Value Ref Range Glucose 115 (H) 74 - 99 mg/dL Sodium 136 136 - 145 mmol/L Potassium 4.6 3.5 - 5.3 mmol/L Chloride 105 98 - 107 mmol/L Bicarbonate 19 (L) 21 - 32 mmol/L Anion Gap 17 10 - 20 mmol/L Urea Nitrogen 70 (H) 6 - 23 mg/dL Creatinine 6.24 (H) 0.50 - 1.30 mg/dL eGFR 9 (L) >60 mL/min/1.73m*2 Calcium 8.5 (L) 8.6 - 10.3 mg/dL Albumin 3.5 3.4 - 5.0 g/dL Alkaline Phosphatase 72 33 - 136 U/L Total Protein 7.4 6.4 - 8.2 g/dL AST 29 9 - 39 U/L Bilirubin, Total 0.4 0.0 - 1.2 mg/dL ALT 13 10 - 52 U/L Basic Metabolic Panel Result Value Ref Range Glucose 115 (H) 74 - 99 mg/dL Sodium 136 136 - 145 mmol/L Potassium 4.5 3.5 - 5.3 mmol/L Chloride 107 98 - 107 mmol/L Bicarbonate 19 (L) 21 - 32 mmol/L Anion Gap 15 10 - 20 mmol/L Urea Nitrogen 70 (H) 6 - 23 mg/dL Creatinine 6.40 (H) 0.50 - 1.30 mg/dL eGFR 8 (L) >60 mL/min/1.73m*2 Calcium 8.0 (L) 8.6 - 10.3 mg/dL Assessment/Plan Chronic kidney disease stage V Anemia Hypertension Normal anion gap metabolic acidosis Left hip fracture Bilateral hydronephrosis with right stent in place Plan: At this time his renal function is fairly stable for him I did discuss with Dr. Bah At this time really no need for intervention from his standpoint A intervention would actually be pretty difficult with his hip fracture and likely intervention is not going to help his renal function anymore His hydronephrosis has been present for a very long period of time and even with a stent in place in the right side and the last time the left ureter was not able to be cannulated and so at this timereally his kidney function is probably as good as it is going to get No need for renal replacement therapy at this time Restart sodium bicarbonate He is on broad-spectrum antibiotics per primary Thanks for the consult Principal Problem: Closed fracture of left hip, initial encounter ([facility]) Active Problems: Stage 5 chronic kidney disease not on chronic dialysis ([facility]) Obesity, morbid, BMI 40.0-49.9 ([facility]) Tiana De León DO * Judy Ley MD - 04/01/2023 8:28 AM EDT Reason For Consult Left femoral neck fracture History Of Present Illness Genet Booth is a 78 y.o. male presenting with a left femoral neck fracture. He is status post a fall. Past medical history is significant for renal failure. This is an isolated injury. Past Medical History He has a past medical history of Jamison catheter in place on admission, Hypertension, Kidney disease, Prostate cancer ([facility]), and Sleep apnea. Surgical History He has a past surgical history that includes Total knee arthroplasty (Right). Social History He reports that he has quit smoking. His smoking use included cigarettes. He has never used smokeless tobacco. He reports that he does not currently use alcohol. He reports that he does not use drugs. Family History Family History Problem Relation Name Age of Onset Heart failure Mother Alzheimer's disease Father Allergies Bupropion, Meloxicam, Ciprofloxacin, and Iodine Review of Systems Physical Exam Left hip: Nonweightbearing gait Negative Trendelenburg sign Skin healthy and intact No tenderness to palpation over lumbar spine Moderate tenderness over greater trochanter Moderate tenderness referable to groin especially with IR Tender flexion/adduction/internal rotation Positive flexion/abduction/external rotation test Neurovascular exam normal distally Last Recorded Vitals Blood pressure 132/64, pulse 91, temperature 36.7 C (98.1 F), temperature source Temporal, resp. rate 18, height 1.803 m (5' 10.98), weight 107 kg (235 lb 10.8 oz), SpO2 93 %. Relevant Results Scheduled medications [Held by provider] allopurinol, 100 mg, oral, Daily azithromycin, 500 mg, intravenous, q24h calcitriol, 0.25 mcg, oral, Daily cefTRIAXone, 1 g, intravenous, q24h ferrous sulfate, 65 mg of iron, oral, BID influenza, 0.7 mL, intramuscular, During hospitalization fluticasone, 2 spray, Each Nostril, Daily heparin (porcine), 5,000 Units, subcutaneous, q8h isosorbide mononitrate ER, 30 mg, oral, Daily levothyroxine, 88 mcg, oral, Daily before breakfast melatonin, 3 mg, oral, Daily multivitamin with minerals, 1 tablet, oral, Daily oxybutynin, 5 mg, oral, BID polyethylene glycol, 17 g, oral, Daily tiZANidine, 2 mg, oral, Once traZODone, 100 mg, oral, Nightly Continuous medications sodium chloride 0.9%, 75 mL/hr, Last Rate: 75 mL/hr (03/31/232200) PRN medications PRN medications: acetaminophen OR acetaminophen OR acetaminophen, albuterol, cyclobenzaprine, HYDROmorphone, oxyCODONE, oxygen Results for orders placed or performed during the hospital encounter of 03/31/23 (from the past 24 hour(s)) CBC and Auto Differential Result Value Ref Range WBC 15.3 (H) 4.4 - 11.3 x10*3/uL nRBC 0.0 0.0 - 0.0 /100 WBCs RBC 4.06 (L) 4.50 - 5.90 x10*6/uL Hemoglobin 11.6 (L) 13.5 - 17.5 g/dL Hematocrit 38.8 (L) 41.0 - 52.0 % MCV 96 80 - 100 fL MCH 28.6 26.0 - 34.0 pg MCHC 29.9 (L) 32.0 - 36.0 g/dL RDW 15.2 (H) 11.5 - 14.5 % Platelets 293 150 - 450 x10*3/uL MPV 10.0 7.5 - 11.5 fL Neutrophils % 88.6 40.0 - 80.0 % Immature Granulocytes %, Automated 0.5 0.0 - 0.9 % Lymphocytes % 4.8 13.0 - 44.0 % Monocytes % 5.7 2.0 - 10.0 % Eosinophils % 0.1 0.0 - 6.0 % Basophils % 0.3 0.0 - 2.0 % Neutrophils Absolute 13.55 (H) 1.60 - 5.50 x10*3/uL Immature Granulocytes Absolute, Automated 0.07 0.00 - 0.50 x10*3/uL Lymphocytes Absolute 0.73 (L) 0.80 - 3.00 x10*3/uL Monocytes Absolute 0.87 (H) 0.05 - 0.80 x10*3/uL Eosinophils Absolute 0.01 0.00 - 0.40 x10*3/uL Basophils Absolute 0.05 0.00 - 0.10 x10*3/uL Basic metabolic panel Result Value Ref Range Glucose 124 (H) 74 - 99 mg/dL Sodium 137 136 - 145 mmol/L Potassium 4.0 3.5 - 5.3 mmol/L Chloride 106 98 - 107 mmol/L Bicarbonate 17 (L) 21 - 32 mmol/L Anion Gap 18 10 - 20 mmol/L Urea Nitrogen 77 (H) 6 - 23 mg/dL Creatinine 6.46 (H) 0.50 - 1.30 mg/dL eGFR 8 (L) >60 mL/min/1.73m*2 Calcium 8.9 8.6 - 10.3 mg/dL Type And Screen Result Value Ref Range ABO TYPE A Rh TYPE NEG ANTIBODY SCREEN NEG Lactate Result Value Ref Range Lactate 1.5 0.4 - 2.0 mmol/L Blood Culture Specimen: Peripheral Venipuncture; Blood culture Result Value Ref Range Blood Culture Loaded on Instrument - Culture in progress CBC Result Value Ref Range WBC 11.5 (H) 4.4 - 11.3 x10*3/uL nRBC 0.0 0.0 - 0.0 /100 WBCs RBC 3.78 (L) 4.50 - 5.90 x10*6/uL Hemoglobin 10.7 (L) 13.5 - 17.5 g/dL Hematocrit 35.9 (L) 41.0 - 52.0 % MCV 95 80 - 100 fL MCH 28.3 26.0 - 34.0 pg MCHC 29.8 (L) 32.0 - 36.0 g/dL RDW 15.0 (H) 11.5 - 14.5 % Platelets 265 150 - 450 x10*3/uL MPV 10.2 7.5 - 11.5 fL Comprehensive metabolic panel Result Value Ref Range Glucose 115 (H) 74 - 99 mg/dL Sodium 136 136 - 145 mmol/L Potassium 4.6 3.5 - 5.3 mmol/L Chloride 105 98 - 107 mmol/L Bicarbonate 19 (L) 21 - 32 mmol/L Anion Gap 17 10 - 20 mmol/L Urea Nitrogen 70 (H) 6 - 23 mg/dL Creatinine 6.24 (H) 0.50 - 1.30 mg/dL eGFR 9 (L) >60 mL/min/1.73m*2 Calcium 8.5 (L) 8.6 - 10.3 mg/dL Albumin 3.5 3.4 - 5.0 g/dL Alkaline Phosphatase 72 33 - 136 U/L Total Protein 7.4 6.4 - 8.2 g/dL AST 29 9 - 39 U/L Bilirubin, Total 0.4 0.0 - 1.2 mg/dL ALT 13 10 - 52 U/L Assessment/Plan [place] 4 femoral neck fracture Plan: Medically clear for surgery including renal consult and input. Plan for hemiarthroplasty on 04/02/2023 N.p.o. after midnight tonight for surgery on Friday. Discussed the risks and benefits of the proposed procedure with the patient he is aware of these and he wishes to proceed forward with surgical intervention. Judy Ley MD documented in this [facility] Work Phone: [phone] Nurse Note* Silva Goddard RN - 04/01/2023 10:00 AM EDT Pt is refusing to allow nurse to change out jamison cath to obtain a urine sample. Pt states it is too Painful due to a recent urology procedure. Pt states that if we want to change the catheter thenwe can do it tomorrow when he is knocked out. notified. Pt also is refusing to allow this nurse to assess underside of hip or buttocks. Pt refusing any repositioning or elevating of the head. Edu cation and encouragement given with patient refusing any movement at all. Pt also refusing pain medication so far this shift because it makes him feel dizzy. This nurse offered to premedicate priorto moving or repositioning and educated on pain medication benefits and effects. Pt still refusing any medication or any movement. Will continue to monitor. [facility] Work Phone: [phone] Consult note* Judy Ley MD - 04/01/2023 8:28 AM EDT Reason For Consult Left femoral neck fracture History Of Present Illness Genet Booth is a 78 y.o. male presenting with a left femoral neck fracture. He is status post a fall. Past medical history is significant for renal failure. This is an isolated injury. Past Medical History He has a past medical history of Jamison catheter in place on admission, Hypertension, Kidney disease, Prostate cancer ([facility]/HCC), and Sleep apnea. Surgical History He has a past surgical history that includes Total knee arthroplasty (Right). Social History He reports that he has quit smoking. His smoking use included cigarettes. He has never used smokeless tobacco. He reports that he does not currently use alcohol. He reports that he does not use drugs. Family History Family History Problem Relation Name Age of Onset Heart failure Mother Alzheimer's disease Father Allergies Bupropion, Meloxicam, Ciprofloxacin, and Iodine Review of Systems Physical Exam Left hip: Nonweightbearing gait Negative Trendelenburg sign Skin healthy and intact No tenderness to palpation over lumbar spine Moderate tenderness over greater trochanter Moderate tenderness referable to groin especially with IR Tender flexion/adduction/internal rotation Positive flexion/abduction/external rotation test Neurovascular exam normal distally Last Recorded Vitals Blood pressure 132/64, pulse 91, temperature 36.7 C (98.1 F), temperature source Temporal, resp. rate 18, height 1.803 m (5' 10.98), weight 107 kg (235 lb 10.8 oz), SpO2 93 %. Relevant Results Scheduled medications [Held by provider] allopurinol, 100 mg, oral, Daily azithromycin, 500 mg, intravenous, q24h calcitriol, 0.25 mcg, oral, Daily cefTRIAXone, 1 g, intravenous, q24h ferrous sulfate, 65 mg of iron, oral, BID influenza, 0.7 mL, intramuscular, During hospitalization fluticasone, 2 spray, Each Nostril, Daily heparin (porcine), 5,000 Units, subcutaneous, q8h isosorbide mononitrate ER, 30 mg, oral, Daily levothyroxine, 88 mcg, oral, Daily before breakfast melatonin, 3 mg, oral, Daily multivitamin with minerals, 1 tablet, oral, Daily oxybutynin, 5 mg, oral, BID polyethylene glycol, 17 g, oral, Daily tiZANidine, 2 mg, oral, Once traZODone, 100 mg, oral, Nightly Continuous medications sodium chloride 0.9%, 75 mL/hr, Last Rate: 75 mL/hr (03/31/232200) PRN medications PRN medications: acetaminophen OR acetaminophen OR acetaminophen, albuterol, cyclobenzaprine, HYDROmorphone, oxyCODONE, oxygen Results for orders placed or performed during the hospital encounter of 03/31/23 (from the past 24 hour(s)) CBC and Auto Differential Result Value Ref Range WBC 15.3 (H) 4.4 - 11.3 x10*3/uL nRBC 0.0 0.0 - 0.0 /100 WBCs RBC 4.06 (L) 4.50 - 5.90 x10*6/uL Hemoglobin 11.6 (L) 13.5 - 17.5 g/dL Hematocrit 38.8 (L) 41.0 - 52.0 % MCV 96 80 - 100 fL MCH 28.6 26.0 - 34.0 pg MCHC 29.9 (L) 32.0 - 36.0 g/dL RDW 15.2 (H) 11.5 - 14.5 % Platelets 293 150 - 450 x10*3/uL MPV 10.0 7.5 - 11.5 fL Neutrophils % 88.6 40.0 - 80.0 % Immature Granulocytes %, Automated 0.5 0.0 - 0.9 % Lymphocytes % 4.8 13.0 - 44.0 % Monocytes % 5.7 2.0 - 10.0 % Eosinophils % 0.1 0.0 - 6.0 % Basophils % 0.3 0.0 - 2.0 % Neutrophils Absolute 13.55 (H) 1.60 - 5.50 x10*3/uL Immature Granulocytes Absolute, Automated 0.07 0.00 - 0.50 x10*3/uL Lymphocytes Absolute 0.73 (L) 0.80 - 3.00 x10*3/uL Monocytes Absolute 0.87 (H) 0.05 - 0.80 x10*3/uL Eosinophils Absolute 0.01 0.00 - 0.40 x10*3/uL Basophils Absolute 0.05 0.00 - 0.10 x10*3/uL Basic metabolic panel Result Value Ref Range Glucose 124 (H) 74 - 99 mg/dL Sodium 137 136 - 145 mmol/L Potassium 4.0 3.5 - 5.3 mmol/L Chloride 106 98 - 107 mmol/L Bicarbonate 17 (L) 21 - 32 mmol/L Anion Gap 18 10 - 20 mmol/L Urea Nitrogen 77 (H) 6 - 23 mg/dL Creatinine 6.46 (H) 0.50 - 1.30 mg/dL eGFR 8 (L) >60 mL/min/1.73m*2 Calcium 8.9 8.6 - 10.3 mg/dL Type And Screen Result Value Ref Range ABO TYPE A Rh TYPE NEG ANTIBODY SCREEN NEG Lactate Result Value Ref Range Lactate 1.5 0.4 - 2.0 mmol/L Blood Culture Specimen: Peripheral Venipuncture; Blood culture Result Value Ref Range Blood Culture Loaded on Instrument - Culture in progress CBC Result Value Ref Range WBC 11.5 (H) 4.4 - 11.3 x10*3/uL nRBC 0.0 0.0 - 0.0 /100 WBCs RBC 3.78 (L) 4.50 - 5.90 x10*6/uL Hemoglobin 10.7 (L) 13.5 - 17.5 g/dL Hematocrit 35.9 (L) 41.0 - 52.0 % MCV 95 80 - 100 fL MCH 28.3 26.0 - 34.0 pg MCHC 29.8 (L) 32.0 - 36.0 g/dL RDW 15.0 (H) 11.5 - 14.5 % Platelets 265 150 - 450 x10*3/uL MPV 10.2 7.5 - 11.5 fL Comprehensive metabolic panel Result Value Ref Range Glucose 115 (H) 74 - 99 mg/dL Sodium 136 136 - 145 mmol/L Potassium 4.6 3.5 - 5.3 mmol/L Chloride 105 98 - 107 mmol/L Bicarbonate 19 (L) 21 - 32 mmol/L Anion Gap 17 10 - 20 mmol/L Urea Nitrogen 70 (H) 6 - 23 mg/dL Creatinine 6.24 (H) 0.50 - 1.30 mg/dL eGFR 9 (L) >60 mL/min/1.73m*2 Calcium 8.5 (L) 8.6 - 10.3 mg/dL Albumin 3.5 3.4 - 5.0 g/dL Alkaline Phosphatase 72 33 - 136 U/L Total Protein 7.4 6.4 - 8.2 g/dL AST 29 9 - 39 U/L Bilirubin, Total 0.4 0.0 - 1.2 mg/dL ALT 13 10 - 52 U/L Assessment/Plan [place] 4 femoral neck fracture Plan: Medically clear for surgery including renal consult and input. Plan for hemiarthroplasty on 04/02/2023 N.p.o. after midnight tonight for surgery on Friday. Discussed the risks and benefits of the proposed procedure with the patient he is aware of these and he wishes to proceed forward with surgical intervention. Judy Ley MD [facility] Work Phone: [phone] Plan of care note* Care Plan - Lavelle Salcedo RN - 04/01/2023 6:03 AM EDT The patient's goals for the shift include The clinical goals for the shift include pain control Over the shift, the patient did make some progress to control pain. [facility]10-30-2023 History and physical note* Lina Baca APRN-LIBAN - 03/31/2023 4:28 PM EDT History Of Present Illness Genet Booth is a 78 y.o. male with past medical history of hypertension, hyperlipidemia, pneumonia, UTI, chronic Jamison, follows with Dr. Maldonado, chronic Jamison was changed 2-1/2 weeks ago, gout, acid reflux, hepatitis C, CKD, and prostate cancer(was treated with radiation 14 years ago) presenting toER by squad post fall. Patient states that he fell down 3 steps and landed on left hip on a cement.He was using his foot to put a blanket away that was that was on the floor and unfortunately his movement of the leg caused the patient to lose his balance. It took him 1 hour to crawl back to the first floor of his house and called 911. Denies hitting head or loss of consciousness. At the ER bloodwork is significant for BUN 77, creatinine 6.46, GFR 8, WBC 15.3, and absolute neutrophils 13.55. Chest x-ray revealed left basilar airspace consolidation. Left hip x-ray is positive for left femoralneck fracture. Past Medical History Past Medical History: Diagnosis Date Jamison catheter in place on admission Hypertension Kidney disease Prostate cancer (CMS/HCC) Sleep apnea Surgical History History reviewed. No pertinent surgical history. Social History He reports that he has quit smoking. His smoking use included cigarettes. He has never used smokeless tobacco. He reports that he does not currently use alcohol. He reports that he does not use drugs. Family History No family history on file. Allergies Bupropion, Meloxicam, Ciprofloxacin, and Iodine Review of Systems Constitutional: Positive for activity change and fatigue. HENT: Positive for congestion and sinus pressure. Eyes: Negative. Respiratory: Negative. Cardiovascular: Negative. Gastrointestinal: Negative. Genitourinary: Negative. Musculoskeletal: Positive for gait problem. Skin: Positive for wound. Left hip, unable to assess at this time due to pain Allergic/Immunologic: Negative. Neurological: Positive for weakness. Hematological: Negative. Psychiatric/Behavioral: Negative. Physical Exam Constitutional: Appearance: He is obese. HENT: Head: Normocephalic and atraumatic. Nose: Congestion present. Mouth/Throat: Mouth: Mucous membranes are moist. Eyes: Extraocular Movements: Extraocular movements intact. Pupils: Pupils are equal, round, and reactive to light. Cardiovascular: Rate and Rhythm: Normal rate and regular rhythm. Pulses: Normal pulses. Heart sounds: Normal heart sounds. Pulmonary: Effort: Pulmonary effort is normal. Breath sounds: Normal breath sounds. Abdominal: General: Bowel sounds are normal. There is distension. Palpations: Abdomen is soft. Musculoskeletal: General: No signs of injury. Cervical back: Normal range of motion and neck supple. Comments: Left hip fx Skin: General: Skin is warm. Neurological: General: No focal deficit present. Mental Status: He is alert and oriented to person, place, and time. Psychiatric: Mood and Affect: Mood normal. Behavior: Behavior normal. Thought Content: Thought content normal. Judgment: Judgment normal. Last Recorded Vitals Blood pressure 131/77, pulse 72, resp. rate 16, height 1.803 m (5' 11), weight 108 kg (237 lb), SpO2 96 %. Relevant Results Scheduled medications [Held by provider] allopurinol, 100 mg, oral, Daily azithromycin, 500 mg, intravenous, Once [START ON 04/01/2023] azithromycin, 500 mg, intravenous, q24h calcitriol, 0.25 mcg, oral, Daily [START ON 04/01/2023] cefTRIAXone, 1 g, intravenous, q24h epoetin kacie, 20,000 Units, subcutaneous, Once per day on Fri ferrous sulfate, 65 mg of iron, oral, BID fluticasone, 2 spray, Each Nostril, Daily heparin (porcine), 5,000 Units, subcutaneous, q8h isosorbide mononitrate ER, 30 mg, oral, Daily [START ON 04/01/2023] levothyroxine, 88 mcg, oral, Daily before breakfast melatonin, 3 mg, oral, Daily oxybutynin, 5 mg, oral, BID polyethylene glycol, 17 g, oral, Daily Continuous medications sodium chloride 0.9%, 75 mL/hr PRN medications PRN medications: acetaminophen OR acetaminophen OR acetaminophen Results for orders placed or performed during the hospital encounter of 03/31/23 (from the past 24 hour(s)) CBC and Auto Differential Result Value Ref Range WBC 15.3 (H) 4.4 - 11.3 x10*3/uL nRBC 0.0 0.0 - 0.0 /100 WBCs RBC 4.06 (L) 4.50 - 5.90 x10*6/uL Hemoglobin 11.6 (L) 13.5 - 17.5 g/dL Hematocrit 38.8 (L) 41.0 - 52.0 % MCV 96 80 - 100 fL MCH 28.6 26.0 - 34.0 pg MCHC 29.9 (L) 32.0 - 36.0 g/dL RDW 15.2 (H) 11.5 - 14.5 % Platelets 293 150 - 450 x10*3/uL MPV 10.0 7.5 - 11.5 fL Neutrophils % 88.6 40.0 - 80.0 % Immature Granulocytes %, Automated 0.5 0.0 - 0.9 % Lymphocytes % 4.8 13.0 - 44.0 % Monocytes % 5.7 2.0 - 10.0 % Eosinophils % 0.1 0.0 - 6.0 % Basophils % 0.3 0.0 - 2.0 % Neutrophils Absolute 13.55 (H) 1.60 - 5.50 x10*3/uL Immature Granulocytes Absolute, Automated 0.07 0.00 - 0.50 x10*3/uL Lymphocytes Absolute 0.73 (L) 0.80 - 3.00 x10*3/uL Monocytes Absolute 0.87 (H) 0.05 - 0.80 x10*3/uL Eosinophils Absolute 0.01 0.00 - 0.40 x10*3/uL Basophils Absolute 0.05 0.00 - 0.10 x10*3/uL Basic metabolic panel Result Value Ref Range Glucose 124 (H) 74 - 99 mg/dL Sodium 137 136 - 145 mmol/L Potassium 4.0 3.5 - 5.3 mmol/L Chloride 106 98 - 107 mmol/L Bicarbonate 17 (L) 21 - 32 mmol/L Anion Gap 18 10 - 20 mmol/L Urea Nitrogen 77 (H) 6 - 23 mg/dL Creatinine 6.46 (H) 0.50 - 1.30 mg/dL eGFR 8 (L) >60 mL/min/1.73m*2 Calcium 8.9 8.6 - 10.3 mg/dL Type And Screen Result Value Ref Range ABO TYPE A Rh TYPE NEG ANTIBODY SCREEN NEG Lactate Result Value Ref Range Lactate 1.5 0.4 - 2.0 mmol/L XR chest 1 view Result Date: 03/31/2023 Interpreted By: Zane Boyce, STUDY: XR CHEST 1 VIEW 03/31/2023 2:01 pm INDICATION: Signs/Symptoms:fx COMPARISON: 01/08/2023 ACCESSION NUMBER(S): [id number] ORDERING CLINICIAN: JUANITO ESPINOZA TECHNIQUE: 2 AP portable radiographs of the chest were obtained FINDINGS: A left basilar airspace consolidation is seen and may represent small pleural effusion, atelectasis and/or pneumonia. No pneumothorax is identified. The cardiac silhouette is enlarged, similar to prior studies. Left basilar airspace consolidation, as above. Clinical correlation and continued follow-up until clearing is recommended. MACRO: None. Signed by: Zane Boyce 03/31/2023 2:15 PM Dictation workstation: [id number] XR hip left 2 or 3 views Result Date: 03/31/2023 Interpreted By: Zane Boyce, STUDY: XR HIP LEFT 2 OR 3 VIEWS 03/31/2023 2:00 pm INDICATION: Signs/Symptoms:pain COMPARISON: None. ACCESSION NUMBER(S): [id number] ORDERING CLINICIAN: JUANITO ESPINOZA TECHNIQUE: A single AP view of the pelvis as well as AP and lateral views of the left hip were obtained. FINDINGS: A transverse fracture is seen through the subcapital aspect of the left femoral neck. There is no evidence of additional fracture or dislocation identified. Mild degenerative changes are seen in the hips and sacroiliac joints bilaterally. Rounded calcifications are seen with throughout the pelvis, most consistent with phleboliths. 1. Left femoral neck fracture, as above. 2. Degenerative changes, as described above. MACRO: None. Signed by: Zane Boyce 03/31/2023 2:14 PM Dictation workstation: [id number] Assessment/Plan Principal Problem: Closed fracture of left hip, initial encounter ([facility]) Genet Booth is a 78 y.o. male with past medical history of hypertension, hyperlipidemia, pneumonia, UTI, chronic Jamison, follows with Dr. Maldonado, chronic Jamison was changed 2-1/2 weeks ago, gout, acid reflux, hepatitis C, CKD, and prostate cancer(was treated with radiation 14 years ago) presenting toER by squad post fall. Patient states that he fell down 3 steps and landed on left hip on a cement.He was using his foot to put a blanket away that was that was on the floor and unfortunately his movement of the leg caused the patient to lose his balance. It took him 1 hour to crawl back to the first floor of his house and called 911. Denies hitting head or loss of consciousness. At the ER bloodwork is significant for BUN 77, creatinine 6.46, GFR 8, WBC 15.3, and absolute neutrophils 13.55. Chest x-ray revealed left basilar airspace consolidation. Left hip x-ray is positive for left femoralneck fracture. We will admit him for left lobe pneumonia, left hip fracture, and CHLOE on CKD. With Ortho. Surgery and nephrology on consult. #Closed fracture of left hip, initial encounter -Orthopedic surgery consulted -Bedrest until changed by orthopedic -Plan for surgery on Friday -Pain management -Bowel regimen to prevent constipation #Acute Kidney Injury on CKD BUN 77, Cr. 6.46 -Nephrology consulted recommendations appreciated -Strict I&Os, daily weight -Exchange Jamison it if it was not done at the ER -UA -Trend renal panel -IVF challenge to see if Cr improves - renal U/S ordered #Chronic Jamison -Last time was changed 2-1/2 weeks ago -Change Jamison if it was not done at the ER #Sinusitis -Flonase nasal spray ordered #Pneumonia -Chest Xray showed Left basilar airspace consolidation CBC showed: WBC 15.3 Sputum production none Plan: -Blood cx Urine antigens for Legionella and strep pneumonia ordered - IV azithromycin and IV ceftriaxone day 1 -Patient is on O2 NC 2 L -Bronchodilators I spent 40 minutes in the professional and overall care of this patient. Lina Baca APRN-CLINICAL TRIAL HEAD [facility] Work Phone: [phone]) 545-731810-30-2023 Emergency department Note* Juanito Espinoza PA-C - 03/31/2023 1:15 PM EDT HPI Chief Complaint Patient presents with Fall Pt states he fell down 3 steps and landed on left hip. + shortening and rotation to left leg. Denies hitting head or LOC Patient c/o mechanical fall CONSERVATION OR HERITAGE ARCHITECT States he was using his foot to push a blanket away that was on the floor Unfortunately this movement of the leg caused the patient to loose his balance Fall onto left hip Denies other injuries No CP or SOB No syncope No data recorded Patient History Past Medical History: Diagnosis Date Jamison catheter in place on admission Hypertension Kidney disease Prostate cancer (CMS/HCC) Sleep apnea History reviewed. No pertinent surgical history. No family history on file. Social History Tobacco Use Smoking status: Former Types: Cigarettes Smokeless tobacco: Never Substance Use Topics Alcohol use: Not Currently Drug use: Never Physical Exam ED Triage Vitals [03/31/23 1322] Temp Heart Rate Resp BP -- 91 18 125/71 SpO2 Temp src Heart Rate Source Patient Position (!) 89 % -- -- -- BP Location FiO2 (%) -- -- Physical Exam Vitals and nursing note reviewed. Constitutional: General: He is not in acute distress. Appearance: Normal appearance. He is obese. He is not ill-appearing, toxic- appearing or diaphoretic. HENT: Head: Normocephalic and atraumatic. Right Ear: External ear normal. Left Ear: External ear normal. Nose: Nose normal. Mouth/Throat: Lips: [place]. No lesions. Mouth: Mucous membranes are moist. Eyes: General: No scleral icterus. Conjunctiva/sclera: Conjunctivae normal. Cardiovascular: Rate and Rhythm: Normal rate and regular rhythm. Pulses: Radial pulses are 2+ on the right side and 2+ on the left side. Dorsalis pedis pulses are 2+ on the right side and 2+ on the left side. Posterior tibial pulses are 2+ on the right side and 2+ on the left side. Heart sounds: Normal heart sounds. Pulmonary: Effort: Pulmonary effort is normal. Breath sounds: Normal breath sounds and air entry. Chest: Chest wall: No tenderness or crepitus. Abdominal: General: Bowel sounds are normal. There is no distension. Palpations: Abdomen is soft. Tenderness: There is no abdominal tenderness. There is no right CVA tenderness, left CVA tendernessor guarding. Musculoskeletal: General: Tenderness present. Cervical back: No tenderness. No spinous process tenderness or muscular tenderness. Right hip: Normal. Left hip: Tenderness and bony tenderness present. Decreased range of motion. Right knee: No tenderness. Left knee: No tenderness. Right lower leg: No edema. Left lower leg: No edema. Right foot: Normal capillary refill. Normal pulse. Left foot: Normal capillary refill. Normal pulse. Comments: No UE areas of tenderness. Skin: General: Skin is warm. Capillary Refill: Capillary refill takes less than 2 seconds. Neurological: General: No focal deficit present. Mental Status: He is alert and oriented to person, place, and time. GCS: GCS eye subscore is 4. GCS verbal subscore is 5. GCS motor subscore is 6. Cranial Nerves: No cranial nerve deficit or facial asymmetry. Sensory: No sensory deficit. Psychiatric: Attention and Perception: Attention and perception normal. Mood and Affect: Mood and affect normal. Speech: Speech normal. Behavior: Behavior normal. Behavior is cooperative. Thought Content: Thought content normal. Cognition and Memory: Cognition and memory normal. Judgment: Judgment normal. ED Course & MDM ED Course as of 03/31/23 1526 FriMar 31, 2023 1343 Message to ortho- Lamberto [] 1349 leb [] 1423 leb [] 1423 Lamberto [] 1423 hospitalist [] ED Course User Index [] Juanito Espinoza PA-C Diagnoses as of 03/31/231525 Closed fracture of left hip, initial encounter ([facility]) Pneumonia due to infectious organism, unspecified laterality, unspecified part of lung Acute kidney injury superimposed on chronic kidney disease ([facility]) Medical Decision Making Patient c/o mechanical fall CONSERVATION OR HERITAGE ARCHITECT States he was using his foot to push a blanket away that was on the floor Unfortunately this movement of the leg caused the patient to loose his balance Fall onto left hip Denies other injuries No CP or SOB No syncope Ddx - fx, contusion, fall, other Problems Addressed: Closed fracture of left hip, initial encounter ([facility]): undiagnosed new problem with uncertain prognosis Details: Dr. Ley consulted. plan on surgery Friday Pneumonia due to infectious organism, unspecified laterality, unspecified part of lung: acute illness or injury Details: patient has no complaints of this. blood cultures and lactate obtained. antibiotics given.IV fluid blous given in case patient were to turn septic. patient stable and improved at this time. Amount and/or Complexity of Data Reviewed Labs: ordered. Decision-making details documented in ED Course. Radiology: ordered and independent interpretation performed. Decision-making details documented in ED Course. Risk Decision regarding hospitalization. Diagnosis or treatment significantly limited by social determinants of health. Emergency major surgery. Elective major surgery with identified risk factors. Procedure Procedures Juanito Espinoza PA-C 03/31/23 1454 Juanito Espinoza PA-C 03/31/23 1526 Associated attestation - Harjeet Long DO - 03/31/2023 6:15 PM EDT This patient was seen and evaluated by the KIM (Advance Practice Provider). I agree with their documentation as above. I independently examined the patient, personally performed a substantive portionof this encounter, and reviewed test results. Patient appears well and nontoxic. Evidence of a left hip fracture. Case originally discussed with orthopedic surgeon on-call Dr. Orantes who advised speaking with Dr. Ley orthopedic surgeon at [facility] for first right of refusal. Dr. Ley is agreeable with consulting on the patient. Case discussed with hospitalist. Patient was found to be in acute on chronic renal failure. Patient started on normal saline infusion. Will be treated with antibiotics with concern for pneumonia. Case also discussed with marketing development representative who is agreeable with admitting patient here. Stable at time of admission. Impression: 1. Left hip fracture 2. Acute on chronic renal failure 3. Pneumonia Disposition: Admission Harjeet Long DO Emergency [facility] Phone: [phone]) 504-976010-30-2023 Physician Emergency department Note* Juanito Espinoza PA-C - 03/31/2023 1:15 PM EDT HPI Chief Complaint Patient presents with Fall Pt states he fell down 3 steps and landed on left hip. + shortening and rotation to left leg. Denies hitting head or LOC Patient c/o mechanical fall CONSERVATION OR HERITAGE ARCHITECT States he was using his foot to push a blanket away that was on the floor Unfortunately this movement of the leg caused the patient to loose his balance Fall onto left hip Denies other injuries No CP or SOB No syncope No data recorded Patient History Past Medical History: Diagnosis Date Jamison catheter in place on admission Hypertension Kidney disease Prostate cancer (CMS/HCC) Sleep apnea History reviewed. No pertinent surgical history. No family history on file. Social History Tobacco Use Smoking status: Former Types: Cigarettes Smokeless tobacco: Never Substance Use Topics Alcohol use: Not Currently Drug use: Never Physical Exam ED Triage Vitals [03/31/23 1322] Temp Heart Rate Resp BP -- 91 18 125/71 SpO2 Temp src Heart Rate Source Patient Position (!) 89 % -- -- -- BP Location FiO2 (%) -- -- Physical Exam Vitals and nursing note reviewed. Constitutional: General: He is not in acute distress. Appearance: Normal appearance. He is obese. He is not ill-appearing, toxic- appearing or diaphoretic. HENT: Head: Normocephalic and atraumatic. Right Ear: External ear normal. Left Ear: External ear normal. Nose: Nose normal. Mouth/Throat: Lips: [place]. No lesions. Mouth: Mucous membranes are moist. Eyes: General: No scleral icterus. Conjunctiva/sclera: Conjunctivae normal. Cardiovascular: Rate and Rhythm: Normal rate and regular rhythm. Pulses: Radial pulses are 2+ on the right side and 2+ on the left side. Dorsalis pedis pulses are 2+ on the right side and 2+ on the left side. Posterior tibial pulses are 2+ on the right side and 2+ on the left side. Heart sounds: Normal heart sounds. Pulmonary: Effort: Pulmonary effort is normal. Breath sounds: Normal breath sounds and air entry. Chest: Chest wall: No tenderness or crepitus. Abdominal: General: Bowel sounds are normal. There is no distension. Palpations: Abdomen is soft. Tenderness: There is no abdominal tenderness. There is no right CVA tenderness, left CVA tendernessor guarding. Musculoskeletal: General: Tenderness present. Cervical back: No tenderness. No spinous process tenderness or muscular tenderness. Right hip: Normal. Left hip: Tenderness and bony tenderness present. Decreased range of motion. Right knee: No tenderness. Left knee: No tenderness. Right lower leg: No edema. Left lower leg: No edema. Right foot: Normal capillary refill. Normal pulse. Left foot: Normal capillary refill. Normal pulse. Comments: No UE areas of tenderness. Skin: General: Skin is warm. Capillary Refill: Capillary refill takes less than 2 seconds. Neurological: General: No focal deficit present. Mental Status: He is alert and oriented to person, place, and time. GCS: GCS eye subscore is 4. GCS verbal subscore is 5. GCS motor subscore is 6. Cranial Nerves: No cranial nerve deficit or facial asymmetry. Sensory: No sensory deficit. Psychiatric: Attention and Perception: Attention and perception normal. Mood and Affect: Mood and affect normal. Speech: Speech normal. Behavior: Behavior normal. Behavior is cooperative. Thought Content: Thought content normal. Cognition and Memory: Cognition and memory normal. Judgment: Judgment normal. ED Course & MDM ED Course as of 03/31/23 1526 Mon Mar 31, 2023 1343 Message to gary Orantes [] 1349 leb [LH] 1423 leb [LH] 1423 Lamberto [] 1423 hospitalist [] ED Course User Index [LH] Juanito Espinoza PA-C Diagnoses as of 03/31/23 152 Closed fracture of left hip, initial encounter ([facility]) Pneumonia due to infectious organism, unspecified laterality, unspecified part of lung Acute kidney injury superimposed on chronic kidney disease ([facility]) Medical Decision Making Patient c/o mechanical fall CONSERVATION OR HERITAGE ARCHITECT States he was using his foot to push a blanket away that was on the floor Unfortunately this movement of the leg caused the patient to loose his balance Fall onto left hip Denies other injuries No CP or SOB No syncope Ddx - fx, contusion, fall, other Problems Addressed: Closed fracture of left hip, initial encounter ([facility]): undiagnosed new problem with uncertain prognosis Details: Dr. Ley consulted. plan on surgery Friday Pneumonia due to infectious organism, unspecified laterality, unspecified part of lung: acute illness or injury Details: patient has no complaints of this. blood cultures and lactate obtained. antibiotics given.IV fluid blous given in case patient were to turn septic. patient stable and improved at this time. Amount and/or Complexity of Data Reviewed Labs: ordered. Decision-making details documented in ED Course. Radiology: ordered and independent interpretation performed. Decision-making details documented in ED Course. Risk Decision regarding hospitalization. Diagnosis or treatment significantly limited by social determinants of health. Emergency major surgery. Elective major surgery with identified risk factors. Procedure Procedures Juanito Espinoza PA-C 03/31/23 1454 Juanito Espinoza PA-C 03/31/23 1526 Associated attestation - Harjeet Long DO - 03/31/2023 6:15 PM EDT This patient was seen and evaluated by the KIM (Advance Practice Provider). I agree with their documentation as above. I independently examined the patient, personally performed a substantive portionof this encounter, and reviewed test results. Patient appears well and nontoxic. Evidence of a left hip fracture. Case originally discussed with orthopedic surgeon on-call Dr. Orantes who advised speaking with Dr. Ley orthopedic surgeon at [facility] for first right of refusal. Dr. Ley is agreeable with consulting on the patient. Case discussed with hospitalist. Patient was found to be in acute on chronic renal failure. Patient started on normal saline infusion. Will be treated with antibiotics with concern for pneumonia. Case also discussed with marketing development representative who is agreeable with admitting patient here. Stable at time of admission. Impression: 1. Left hip fracture 2. Acute on chronic renal failure 3. Pneumonia Disposition: Admission Harjeet Long DO Emergency Medicine [facility] Work Phone: 1(539) 827-356510-25-2023 History of Present illness Narrative* Lillian Tate - 03/26/2023 3:00 PM EDT Nurse Note: Review of Systems Constitutional: Positive for fatigue and unexpected weight change. Gastrointestinal: Positive for abdominal distention, abdominal pain and constipation. Negative for blood in stool. Nursing Assessment: Physical Exam Pt is a 78 yo male that presents for EGD evaluation for iron deficiency anemia Referred by Aat Hernandez DO Pt states weight loss used to be 310lbs Pt has had a colonoscopy approx 4 years ago can't remember where * Joaquin Tillman Jr., DO - 03/26/2023 3:00 PM EDT Office consultation Date and Time: March 26, 2023 3:52 PM Patient Demographics: Genet Booth male 1945 Wt Readings from Last 1 Encounters: 03/26/23 107 kg (236 lb) Chief Complaint: 78-year-old gentleman here regarding iron deficiency Patient has history of multiple medical comorbidities Patient has stage IV chronic renal failure, per notes related to hydronephrosis and obstructive etiologies Most recent creatinine 5.94, BUN 68 Most recent CBC from January 2023 hemoglobin 9.1 MCV 98 platelet count 355 Patient is on ferrous sulfate 325 twice a day and Procrit Patient denies fevers chills or night sweats no melena and/or hematochezia most recent colonoscopy less than 10 years with polyps, specifics of the polyps are unknown to the patient We discussed structural versus functional bowel disorders We discussed macrocytic microcytic and normocytic anemias We discussed GI bleeding and iron deficiency We discussed chronic renal failure and anemia Patient has a distant relative with colon neoplasm by history at an extreme of age We discussed AS recommendations for colon cancer screening and surveillance based on age family history personal history and ethnicity BP 134/81 Pulse 119 Ht 1.803 m (5' 11) Wt 107 kg (236 lb) SpO2 95% BMI 32.92 kg/m Smoking Status Former Past Medical History: Diagnosis Date Allergies Chicken pox Depression Dysmetabolic syndrome X Essential hypertension, benign Hepatitis hepatitis B-1980s Hyperlipidemia Hypothyroidism Obesity CHLOÉ (obstructive sleep apnea) Prostate cancer Renal disease left kidney is swollen 09/19/2020 SOB (shortness of breath) STATES HAS BEEN OUT OF SHAPE THE LAST YEAR WITH COVID AND KNEE PAIN Past Surgical History: Procedure Laterality Date CYSTOURETHROSCOPY W/ URETEROSCOPY/PYELOSCOPY DIAGNOSTIC Left 10/17/2020 Laterality: Left; Surgeon: Bam Lambert MD; Location: [facility] OR CYSTOURETHROSCOPY W/ INSERTION STENT URETER Left 10/17/2020 Laterality: Left; Surgeon: Bam Lambert MD; Location: [facility] OR CYSTOURETHROSCOPY W/ FULGURATION/RESECTION LESION BLADDER (TURB) Left 10/17/2020 Laterality: Left; Surgeon: Bam Lambert MD; Location: [facility] OR CYSTOURETHROSCOPY W/ INTERNAL URETHROTOMY (DVIU) N/A 09/28/2020 Laterality: N/A; Surgeon: Bam Lambert MD; Location: [facility] OR CYSTOURETHROSCOPY W/ INSERTION STENT URETER Left 09/28/2020 Laterality: Left; Surgeon: Bam Lambert MD; Location: [facility] OR COLONOSCOPY FOR COLORECTAL CANCER SCREENING LOW/AVERAGE RISK INDIVIDUAL 2019 EXTRACTION EXTRACAPSULAR CATARACT W/ IMPLANT (ECCE IOL) Bilateral HEART CATHETERIZATION 10-12 years ago KNEE REPLACEMENT Right Social History Socioeconomic History Marital status: Tobacco Use Smoking status: Former Types: Cigarettes Quit date: 1979 Years since quittin.8 Smokeless tobacco: Never Vaping Use Vaping Use: Never used Substance and Sexual Activity Alcohol use: Not Currently Comment: rarely Drug use: No Sexual activity: Not Currently Current Outpatient Medications: Allopurinol 100 MG tablet, Take 1 tablet by mouth daily., Disp: 90 tablet, Rfl: 3 calcitRIOL 0.25 MCG capsule, Take 1 capsule by mouth daily., Disp: 30 capsule, Rfl: 11 Ciprofloxacin 500 MG tablet, 2 times daily., Disp: , Rfl: DISABILITY PLACARD, Disability placard end date 03/02/2026., Disp: 1 Each, Rfl: 0 epoetin kacie (Procrit) 81889 UNIT/ML Solution, Inject 1 mL under the skin every 14 days., Disp: 6 mL, Rfl: 5 ferrous sulfate 325 (65 Fe) MG tablet, Take 1 tablet by mouth 2 times daily., Disp: 60 tablet, Rfl:2 levothyroxine 88 MCG tablet, Take 1 tablet by mouth daily., Disp: 90 tablet, Rfl: 3 multivitamin tablet, Take 1 tablet by mouth daily., Disp: , Rfl: acetaminophen 500 MG tablet, Take 1 tablet by mouth every 6 hours as needed for Pain. (Patient not taking: Reported on 03/26/2023), Disp: , Rfl: aspirin EC [address], Take 1 tablet by mouth daily. (Patient not taking: Reported on 03/26/2023), Disp: , Rfl: NIFEdipine (Adalat CC) 30 MG Tab SR 24 HR, Take 1 tablet by mouth daily. (Patient not taking: Reported on 03/26/2023), Disp: 90 tablet, Rfl: 3 Sodium bicarbonate 650 MG tablet, Take 1 tablet by mouth 3 times daily. (Patient not taking: Reported on 03/26/2023), Disp: 90 tablet, Rfl: 11 Wellbutrin [bupropion]; *seasonal; Betadine [povidone iodine]; Ciprofloxacin; Iodine; Ivp dye, iodine containing; and Meloxicam ROS: Cardiovascular-no reported chest discomfort or shortness of breath Respiratory-no wheezing or coughing Gastrointestinal-as per chief complaint Extremities-no gross edema deformity or dysfunction Neurologic-grossly intact no deficits reported Physical Exam: Alert gentleman sitting in wheelchair in no gross apparent distress to evaluation no obvious secondary characteristics of liver disease are gross deformities Cardiovascular-no JVD no ectopy Respiratory-no wheezing or coughing Abdomen-obese nondistended Extremities-no edema no deformity Neurologic-grossly intact Assessment: Iron deficiency Chronic renal failure stage IV by history No current GI alarm symptoms History of colonic polyposis Distant relative with colon neoplasm by history Plan: EGD with capsule enteroscopy Colonoscopy Further recommendations pending results * Katrin Carranza LPN - 03/26/2023 3:00 PM EDT Colonoscopy/egd/pill cam study May 05Friday arrive at 7 am transportation documented in this [facility]10-25-2023 Instructions* Patient Instructions* Katrin Carranza LPN - 03/26/2023 3:00 PM EDT MIRALAX COLONOSCOPY PREP INSTRUCTIONS Joaquin Tillman DO Date of Procedure May 05Friday arrive at 7 am Hold Blood Thinner. Hold iron tablets 5 days prior to colonoscopy. Hold diet pills 2 weeks (14 days) prior to colonoscopy. Hold Liraglutide or (Saxenda),Ozempic, Wegovy, Semaglutide, Mounjaro, Bydureon for one week Hold oral diabetic medication the day before and morning of procedure. Take dose of insulin the day before and HOLD insulin morning of procedure. Hold ALL medications morning of procedure except for:no meds DIET INSTRUCTIONS: No Solid Food the entire day before Clear liquid diet only the day before the procedure. No red drinks, milk or dairy products. You mayhave broth (chicken, beef or vegetable). You may have 7-UP, soda, water, lemonade, Gatorade, Power Aid, sports drinks, black coffee or tea. PREP INSTRUCTIONS: What you need: 1 bottle (510g) of Miralax START PREP AT 10 AM THE DAY BEFORE PROCEDURE Mix 4 capfuls of Miralax with 20 oz of liquid. Drink every hour until stool is clear and looks like urine No liquids or food the day of your procedure. No tobacco, chewing gum or mints morning of procedure. YOU WILL RECEIVE A CALL THE DAY BEFORE YOUR PROCEDURE ( if your procedure is on Friday you will receive a call on Friday ) WITH THE ARRIVAL TIME AND INSTRUCTIONS. STOP AT THE REGISTRATION DESK DAY OF PROCEDURE. YOU MUST HAVE A RESPONSIBLE ADULT DRIVE YOU HOME. IF YOU DO NOT HAVE SOMEONE TO DRIVE YOU, YOUR PROCEDURE WILL BE CANCELED. PUBLIC TRANSPORTATION IS NOT PERMITTED UNLESS YOU HAVE A FAMILY MEMBER OR A FRIEND WITH YOU. If you have any questions, you become ill or have to cancel your colonoscopy, please call the office at [phone] Office hours are 8 - 4 [facility] Evaluation + Plan note * Assessment & Plan Note - Tiana De León DO - 03/05/2023 2:32 PM EDT Associated Problem(s): Stage 5 chronic kidney disease not on chronic dialysis (CMS/HCC) We discussed symptoms of failure and he will call with any issues. [facility] Work Phone: 1(121) 942-175310-04-2023 Miscellaneous Notes* Assessment & Plan Note - Tiana De León DO - 03/05/2023 2:32 PM EDTAssociated Problem(s): Stage 5 chronic kidney disease not on chronic dialysis (CMS/HCC) We discussed symptoms of failure and he will call with any issues. [facility] Work Phone: 1(481) 455-344910-04-2023 History of Present illness Narrative* Tiana De León DO - 03/05/2023 2:15 PM EDT Subjective He is feeling well He states he is actually feeling better Walking better He is urinating well No swelling Good appetite No complaints at all== Patient ID: Genet Booth is a 78 y.o. male who presents for 1 month follow up (Rev labs 02/28). HPI He is here for follow-up secondary to chronic kidney disease that is quite advanced secondary to hydronephrosis in the past His baseline creatinine is stage V. He had a recent lab results drawn on February 28 which shows his GFR to be 9 His bicarb is 21 His meds are reviewed he is on calcitriol and sodium bicarb also listed in his meds is ibuprofen Review of Systems All other systems reviewed and are negative. Objective Physical Exam Constitutional: Appearance: Normal appearance. HENT: Head: Normocephalic and atraumatic. Right Ear: External ear normal. Left Ear: External ear normal. Nose: Nose normal. Mouth/Throat: Mouth: Mucous membranes are moist. Pharynx: Oropharynx is clear. Eyes: Extraocular Movements: Extraocular movements intact. Conjunctiva/sclera: Conjunctivae normal. Pupils: Pupils are equal, round, and reactive to light. Cardiovascular: Rate and Rhythm: Normal rate and regular rhythm. Pulmonary: Effort: Pulmonary effort is normal. Breath sounds: Normal breath sounds. Abdominal: General: Abdomen is flat. Palpations: Abdomen is soft. Genitourinary: Comments: Jamison In place Skin: General: Skin is warm and dry. Neurological: General: No focal deficit present. Mental Status: He is alert and oriented to person, place, and time. Psychiatric: Mood and Affect: Mood normal. Behavior: Behavior normal. Assessment/Plan Problem List Items Addressed This Visit ICD-10-CM Cardiac and Vasculature Benign essential hypertension I10 Hyperlipidemia E78.5 Genitourinary and Reproductive Stage 5 chronic kidney disease not on chronic dialysis (CMS/HCC) - Primary N18.5 We discussed symptoms of failure and he will call with any issues. Relevant Orders CBC Iron and TIBC Ferritin Comprehensive metabolic panel Hydronephrosis N13.30 Hematology and Neoplasia Anemia in stage 4 chronic kidney disease (CMS/HCC) N18.4, D63.1 documented in this [facility] Work Phone: 1(408) 561-421109-12-2023 Miscellaneous Notes* Op Note - John Bah MD - 02/11/2023 9:40 AM EDT PROCEDURE DETAILS Preoperative Diagnosis: Unspecified hydronephrosis, N13.30 Postoperative Diagnosis: Unspecified hydronephrosis, N13.30 Surgeon: John Bah Resident/Fellow/Other Rn Oncology Clinical: None of these were associated with this case Procedure: 1. CYSTO R RPG W/ URETER R STENT CHANGE Anesthesia: No anesthesiologist associated with this case Estimated Blood Loss: 0 Findings: see op note Specimens(s) Collected: no, Operative Report: Preoperative diagnosis: hydronephrosis Postoperative diagnosis: Same Procedure: cystoscopy with Right RPG and ureteroscopy and Right stent change Physician: OLVIN Anesthesia: Gen. Estimated blood loss: None Indications and consent: The patient presents with known hydronephrosis. After the risks, benefits,alternatives, and indications of the procedure were explained to the patient they consented. Procedure: The patient was brought to the operating room and placed on the table in the supine position. After adequate anesthesia was obtained, the patient was prepped and draped in the standard surgical fashion. First, the cystoscope was inserted into the bladder. Formal cystoscopy was performed.This actually appeared improved compared to last cysto with less inflammation and exudative coatingof the bladder waslls. The bladder capacity was very small . No mass was seen. The previously placed RIGHT stent was seen and grasped and brought out. A guidewire was placed up the existing stent into the renal pelvis using X-Ray guidance. The stent was then removed. We then performed ureteroscopy with retrograde pyelogram. This did not show any evidence of mass or stone in the ureter. The retrograde pyelogram did show persistent hydronephrosis. At this point a new stent was placed over the existing guidewire. This was done under fluoroscopic vision. Proper positioning was confirmed. The leftureteral opening was unable to be visualized AGAIN. The patient tolerated the procedure well and there no complications. Will refer to IR to discuss Antegrade stent placement on the LEFT Attestation: Note Completion: Attending Attestation I performed the procedure without a resident Electronic Signatures: John Bah) (Signed 11-Feb-2023 10:01) Authored: Post-Operative Note, Chart Review, Note Completion Last Updated: 11-Feb-2023 10:01 by Jonh Bah) documented in this [facility] Work Phone: 1(483) 292-997709-12-2023 Note* Op Note - John Bah MD - 02/11/2023 9:40 AM EDT PROCEDURE DETAILS Preoperative Diagnosis: Unspecified hydronephrosis, N13.30 Postoperative Diagnosis: Unspecified hydronephrosis, N13.30 Surgeon: John Bah Resident/Fellow/Other Rn Oncology Clinical: None of these were associated with this case Procedure: 1. CYSTO R RPG W/ URETER R STENT CHANGE Anesthesia: No anesthesiologist associated with this case Estimated Blood Loss: 0 Findings: see op note Specimens(s) Collected: no, Operative Report: Preoperative diagnosis: hydronephrosis Postoperative diagnosis: Same Procedure: cystoscopy with Right RPG and ureteroscopy and Right stent change Physician: OLVIN Anesthesia: Gen. Estimated blood loss: None Indications and consent: The patient presents with known hydronephrosis. After the risks, benefits,alternatives, and indications of the procedure were explained to the patient they consented. Procedure: The patient was brought to the operating room and placed on the table in the supine position. After adequate anesthesia was obtained, the patient was prepped and draped in the standard surgical fashion. First, the cystoscope was inserted into the bladder. Formal cystoscopy was performed.This actually appeared improved compared to last cysto with less inflammation and exudative coatingof the bladder waslls. The bladder capacity was very small . No mass was seen. The previously placed RIGHT stent was seen and grasped and brought out. A guidewire was placed up the existing stent into the renal pelvis using X-Ray guidance. The stent was then removed. We then performed ureteroscopy with retrograde pyelogram. This did not show any evidence of mass or stone in the ureter. The retrograde pyelogram did show persistent hydronephrosis. At this point a new stent was placed over the existing guidewire. This was done under fluoroscopic vision. Proper positioning was confirmed. The leftureteral opening was unable to be visualized AGAIN. The patient tolerated the procedure well and there no complications. Will refer to IR to discuss Antegrade stent placement on the LEFT Attestation: Note Completion: Attending Attestation I performed the procedure without a resident Electronic Signatures: John Bah) (Signed 11-Feb-2023 10:01) Authored: Post-Operative Note, Chart Review, Note Completion Last Updated: 11-Feb-2023 10:01 by John Bah) [facility] Work Phone: 1([phone]) 476-449909-12-2023 History and physical note* John Bah MD - 02/11/2023 7:45 AM EDT History & Physical Reviewed: I have reviewed the History and Physical dated: 29-Jan-2023 History and Physical reviewed and relevant findings noted. Patient examined to review pertinent physical findings.: No significant changes Home Medications Reviewed: no changes noted Allergies Reviewed: no changes noted ERAS (Enhanced Recovery After Surgery): ERAS Patient: no Consent: COVID-19 Consent: COVID-19 Risk Consent Surgeon has reviewed santamaria risks related to the risk of ector COVID-19 and if they contract COVID-19 what the risks are. Electronic Signatures: John Bah) (Signed 11-Feb-2023 07:45) Authored: History & Physical Reviewed, ERAS, Consent, Note Completion Last Updated: 11-Feb-2023 07:45 by John Bah) [facility] Work Phone: 1(889) 344-863409-12-2023 History and physical note* John Bah MD - 02/11/2023 7:45 AM EDT History & Physical Reviewed: I have reviewed the History and Physical dated: 29-Jan-2023 History and Physical reviewed and relevant findings noted. Patient examined to review pertinent physical findings.: No significant changes Home Medications Reviewed: no changes noted Allergies Reviewed: no changes noted ERAS (Enhanced Recovery After Surgery): ERAS Patient: no Consent: COVID-19 Consent: COVID-19 Risk Consent Surgeon has reviewed santamaria risks related to the risk of ector COVID-19 and if they contract COVID-19 what the risks are. Electronic Signatures: John Bah) (Signed 11-Feb-2023 07:45) Authored: History & Physical Reviewed, ERAS, Consent, Note Completion Last Updated: 11-Feb-2023 07:45 by John Bah) documented in this [facility] Work Phone: 1(340) 939-905508-28-2023 History of Present illness Narrative* Ata Hernandez, DO - 01/27/2023 2:30 PM EDT History of Present Illness Chief Complaint Patient presents with Shortness of Breath Patient states his SOB is worsening. Admitted at [facility] 01/10-01/14. Patient states he still has not yet received home 02. Muscle Weakness Patient reports that he is becoming weaker has worsened since his last visit. Last hospital admission took a toll on him he states. Hydronephrosis He was in [facility] was found to have left hydronephrosis. He had subsequent stent placement by Dr. Bah and follows with him this coming Friday. Review of Systems Constitutional: Negative for activity change, chills and fever. HENT: Negative for dental problem, ear pain, mouth sores, sinus pain and trouble swallowing. Eyes: Negative for discharge and visual disturbance. Respiratory: Negative for chest tightness, shortness of breath and wheezing. Cardiovascular: Negative for chest pain, palpitations and leg swelling. Gastrointestinal: Negative for abdominal pain and nausea. Endocrine: Negative for polydipsia, polyphagia and polyuria. Genitourinary: Negative for difficulty urinating, flank pain, frequency and urgency. Musculoskeletal: Negative for arthralgias, back pain, myalgias and neck pain. Skin: Negative for color change and rash. Neurological: Negative for dizziness, syncope and light-headedness. Psychiatric/Behavioral: Negative for decreased concentration and sleep disturbance. All other systems reviewed and are negative. Vitals: Blood pressure 110/80, pulse 110, temperature 97.6 F (36.4 C), temperature source Temporal,resp. rate 20, height 1.778 m (5' 10), SpO2 98 %. Physical Exam Vitals and nursing note reviewed. HENT: Head: Normocephalic. Cardiovascular: Rate and Rhythm: Normal rate and regular rhythm. Heart sounds: No murmur heard. Pulmonary: Effort: Pulmonary effort is normal. Breath sounds: Normal breath sounds. Abdominal: General: Bowel sounds are normal. Palpations: Abdomen is soft. Tenderness: There is no abdominal tenderness. Musculoskeletal: General: No swelling. Assessment and Plan ICD-10-CM 1. Hydronephrosis with renal and ureteral calculus obstruction N13.2 2. Iron deficiency anemia, unspecified iron deficiency anemia type D50.9 Referral placed to Gastroenterology, Dr. Tillman for EGD/colonoscopy due to anemia. Begin iron supplement twice daily to help build iron stores. SAMANTHA Brito, was the medical lab scientist for today's note. I have performed all essential components of the history and physical exam, confirmed the diagnosis and developed a plan of care at this visit. I have reviewed the note at the visit and have added edits as appropriate to my evaluation andplan of care. Electronically signed by DO Sanchez San CMSS, was the medical lab scientist for today's note. I have performed all essential components of the history and physical exam, confirmed the diagnosis and developed a plan of care at this visit. I have reviewed the note at the visit and have added edits as appropriate to my evaluation andplan of care. documented in this encounterOhio[facility]-28-[facility]23 Instructions* Patient Instructions* Sanchez Ying - 01/27/2023 2:30 PM EDT Assessment and Plan ICD-10-CM 1. Hydronephrosis with renal and ureteral calculus obstruction N13.2 2. Iron deficiency anemia, unspecified iron deficiency anemia type D50.9 Referral placed to PatriciaologyDr. Tillman for EGD/colonoscopy due to anemia. Begin iron supplement twice daily to help build iron stores. SAMANTHA Brito, was the medical lab scientist for today's note. I have performed all essential components of the history and physical exam, confirmed the diagnosis and developed a plan of care at this visit. I have reviewed the note at the visit and have added edits as appropriate to my evaluation andplan of care. Electronically signed by DO Sanchez San CMSS, was the medical lab scientist for today's note. I have performed all essential components of the history and physical exam, confirmed the diagnosis and developed a plan of care at this visit. I have reviewed the note at the visit and have added edits as appropriate to my evaluation andplan of care. documented in this [facility]08-12-2023 History of Present illness Narrative* He is here for follow-up after a recent hospitalization. * He was hospitalized with renal dysfunction * Blood work was last obtained on January 11 * This unfortunately was on the day of his discharge at that time hemoglobin was 8.1 renal function at that time showed a BUN of 51 and a creatinine of 4.88 * We do not have any repeat blood work since then * Before that hospitalization he was also hospitalized previous to that with kidney function that waseven worse than that. * He has expressed the wish to not receive renal replacement therapy although if it was absolutely necessary then he would probably agree to it. * He had hydronephrosis and had to have a Jamison catheter and has seen urology. * His medications are reviewed * He is feeling well * No complaints * Makingplenty ofurien * Jamison has no issues [facility] Work Phone: 1(282) 170-530808-12-2023 NoteSend Summary: Discharge Summary Providers: Provider RoleProvider Name Daily Woodard Aaron M Nurse Adele Mcclelland Nurse PractitionerElana Lucas Eric AttendingCaicedo, Daniel Note Recipients: Ata Hernandez DO - [phone] [] Discharge: Summary: Admission Date: .08-Jan-2023 12:26:00 Discharge Date: 11-Jan-2023 Attending Physician at Discharge: Barron Carney Admission Reason: weakness Final Discharge Diagnoses: CKD (chronic kidney disease), Erythematous bladder mucosa Procedures: none Condition at Discharge: Satisfactory Disposition at Discharge: .Home Vital Signs: T PRBPMAPSpO2 [id number]/6694% Date/Time01/11 7: 7: 7: 7: 7:41 Range(36.3C - 37.3C ) (66 - 85 ) (18 - 19 ) (128 - 141 )/ (51 - 67 ) (92% - 96% ) Highest temp of 37.3 C was recorded at 01/10 19:49 Date: Weight/Scale Type:Height: 08-Jan-2023 18:48086 kg / jqp935.2 cm Physical Exam: General Appearance: AAO x 3, not in acute distress Skin: skin color pink, warm, and dry; no suspicious rashes or lesions Eyes : PERRL, EOM's intact ENT: mucous membranes pink and moist Neck: normocephalic Respiratory: lungs clear to auscultation anteriorly; no wheezing, rhonchi, or crackles. on room air Heart: regular rate and rhythm. telemetry shows SR Abdomen: Nondistended, positive bowel sounds x4, soft, nontender Extremities: no edema noted to lower extremities Peripheral pulses: normal x4 extremities Neuro: alert, coherent and conversant, no focal motor deficits Hospital Course: 78-year-old male with history of hypertension, sleep apnea, obesity, hypothyroidism, gout, hyperlipidemia, depression, prostate cancer s/p prostatectomy, bladder tumor, ureteral stricture, chronic kidney disease presented with generalized weakness, near syncopal episode, possible UTI, deconditioning and recent viral common cold while COVID-19 test negative here Anemia of chronic disease likely During the hospitalization you were seen by Dr. De León for chronic kidney disease he recommended following up with him within 2 weeks postdischarge. He also had pneumonia and a UTI. You were treated with IV Rocephin which was changed to bactrim renal dosed on discharge for 5 additional days follow-up with Dr. Bah for chronic Jamison within 2 weeks postdischarge follow-up primary care physician within 2 weeks postdischarge. Call 911 or go to nearest ED if symptoms worsen or persist. Discharge Information: and Continuing Care: Lab Results - Pending: Culture, Blood Drawn at 08-Jan-2023 13:22:00 Culture, Blood Drawn at 08-Jan-2023 13:11:00 Radiology Results - Pending: None Discharge Instructions: Catheter Care: Type: indwelling Catheter Care: soap and water Date Last Changed: 01/09/2023 Additional Orders: Additional Instructions: Discharge plan Resume home medications Start trazodone at bedtime for insomnia Start bactrim 500 mg p.o. twice daily x5 days renal dosed Follow-up with primary care physician within 2 weeks postdischarge Follow-up with Dr. Bah within 2 weeks postdischarge for chronic Jamison Follow-up with Dr. De León within 2 weeks postdischarge for chronic kidney disease Call 911 or go to nearest ED if symptoms worsen or persist use assistive device when ambulating as needed to minimize risk of falls Home Care Certification: Skilled Disciplines Ordered: RN/JAVA FLEX DEVELOPER, PT, OT, Home Health Aide Home Care Services: Home Care Skilled Service: Rehab (PT/OT/SP eval and treat) Follow Up Appointments: Follow-Up Appointment 01: Physician/Dept/Service: Ata Hernandez Reason for Referral: Posthospitalization Call to Schedule in: 2 weeks Location: [address] [place] [address] Follow-Up Appointment 02: Physician/Dept/Service: Dr. De León Reason for Referral: Chronic renal disease Call to Schedule in: 2 weeks Location: [address] [place] [address] Follow-Up Appointment 03: Physician/Dept/Service: Dr Bah Reason for Referral: chronic jamison Call to Schedule in: 2 weeks Location: [address] [place] [address] Discharge Medications: Home Medication isosorbide mononitrate 30 mg oral tablet, extended release - 1 tab(s) orally once a day (in the morning) calcitriol 0.25 mcg oral capsule - 1 cap(s) orally once a day sodium bicarbonate 650 mg oral tablet - 1 tab(s) orally once a day Procrit 20,000 units/mL injectable solution - 1 dose(s) injectable every 2 weeks. Patient has not started yet as of 01/08/2023 allopurinol 100 mg oral tablet - 1 tab(s) orally once a day NIFEdipine 30 mg oral tablet, extended release - 1 tab(s) orally once a day traZODone 50 mg oral tablet - 1 tab(s) orally once (at bedtime) Bactrim 400 mg-80 mg oral tablet - 1 tab(s) orally every 12 hours x 5 days (more content not included)...[id number] [facility] Discharge instructions* Catheter Care:Type: indwellingCatheter Care: soap and waterDate Last Changed: 01/09/2023 * Additional Orders:Additional Instructions: Discharge planResume home medications, lower your allopurinol to 50mg PO every other day until you discuss with your pcp because of the impaired renal functionStart trazodone at bedtime for insomniaStart bactrim 500 mg p.o. twice daily x5 days renal dosedFollow-up with primary care physician within 2 weeks postdischargeFollow- up with Dr. Bah within 2 weeks postdischarge for chronic FoleyFollow-up with Dr. De León within 2 weeks postdischarge for chronickidney diseaseCall 911 or go to nearest ED if symptoms worsen or persist use assistive device when a mbulating as needed to minimize risk of falls * Call Provider If:Breathing faster than normal. Breathing harder than normal or having retractions. Fever of 100.4 F (38 C) or higher. Temperature is greater than 102 degrees. Chills. Drinking less than normal. Not being able to go 4-6 hours between albuterol treatments. Urinating less than normal, over 1 day. Urinating less than 4 times per day. Acting very sleepy and difficult to awaken. Vomiting (throwing up) and not able to eat or drink for 12 hours. 3 or more loose, watery bowel movements in 24 hours (diarrhea). Any new concerning symptoms. * Home Care Face to Face Certification:Home Care Services Needed: yesSkilled Disciplines Ordered: RN/JAVA FLEX DEVELOPER, PT, OT, Home Health AideFace to Face Encounter Completed: yesDate of Encounter: [id number] Necessity for Homecare (based on clinical findings): Clinical findings support the need for skilled nurse to monitor signs and symptoms of adverse events from prostate cancer. The services are medically necessary.Homebound Status: homeboundHomebound Due to: Based on my clinical findings this patient is home down due to extreme dyspnea with ambulationFace to Face Completed and Home Care Orders Reviewed: I certify that this patient is under my care. I have reviewed the information included in the face to face and certify that the home care services ordered are medically necessary for this patient. * Home Care Skilled Service:Home Care Skilled Service: Rehab (PT/OT/SP eval and treat)Rehab: First Home Care Visit: Home Care to determine * Follow Up Appointment 1:Physician/Dept/Service: Ata Peña for Referral: PosthospitalizationCall to Schedule in: 2 weeksLocation: [address] [place], [place] [address]Igwgx Number: [phone]: Please call and schedule an appointment within 2 weeks of your hospital Discharge * Follow Up Appointment 2:Physician/Dept/Service: Dr. Faulkner for Referral: Chronic renal diseaseLocation: [address], [place] [address]Xqmys Number: [phone]: Please call andschedule an appointment within 2 weeks of your hospital Discharge * Follow Up Appointment 3:Physician/Dept/Service: Dr Ya for Referral: chronic foleyLocation: [address] [place], [place] [address]Tzarh Number: [phone]: Please call and schedule an appointment within 2 weeks of your hospital Discharge [facility]08-09-2023 NoteHistory of Present Illness: HPI: GENET BOOTH is a 78 year old Male presented with generalized weakness, dizziness and lightheadedness with history of UTI treatment and patient was previously at rehab then discharged home and still on home health care presented with deconditioning and had recent viral cold but denies any fever chills sore throat runny nose sinus nasal congestion at this time. Chronic occasional cough with clear phlegm but no hemoptysis or wheeze. Denies any chest pain or shortness of breath at rest. EKG with sinus tach and first-degree AV block with premature beats. Denies nausea vomiting or diarrhea or bleeding from anywhere. Patient feels irregular beat especially upon standing up and currently hemodynamically stable and maintaining vital saturations. No headache or focal weakness. Denies any urinary complaints at this time. Urinalysis with evidence of infection possibly. Chest x-ray with atelectasis questionable pneumonia but clinically not impressive. Patient on antibiotics IV now. He had a near syncopal event. He was admitted here in the last couple of months for UTI and then subsequently at SNF rehab for 2 weeks. His kidney function is being watched outpatient and last time he refused dialysis and has been doing okay so far. Advanced kidney disease present. No signs of volume overload. Generalized weakness with anemia of chronic disease, troponin unremarkable and lactate level fine Following reviewed with patient and patient concurred Past medical history: Prostate cancer s/p prostatectomy, bladder tumor, urethral stricture, obesity, obstructive sleep apnea, hypertension, left knee chronic pain, hypothyroidism, gout, hyperlipidemia, depression Past surgical history: Prostatectomy Social history: Former smoker, no alcohol abuse. No advanced directives. Lives by home by himself. Family history: Not pertinent to HPI per the patient Review system All 12 point review of systems negative except HPI Comorbidities: Comorbidites: Comorbid Conditionshypertension Social History: Social History: Smoking Statusnever smoker (1) Alcohol Usedenies(1) Drug Usedenies (1) Allergies: iodine: Unknown Medications Prior to Admission: Admission Medication Reconciliation has not been completed for this patient. Objective: Objective Information: T PRBPMAPSpO2 [id number]/6594% Date/Time01/08 18: 18: 18: 18: 18:20 Range(36.6C - 37C ) (75 - 113 ) (15 - 22 ) (109 - 147 )/ (65 - 80 ) (93% - 95% ) Highest temp of 37 C was recorded at 01/08 18:20 Pain reported at 01/08 17:30: 0 = None Physical Exam by System: Constitutional: Well developed, awake/alert/oriented x3, no distress, alert and cooperative Eyes: PERRL, EOMI, clear sclera ENMT: mucous membranes moist, no apparent injury, no lesions seen Head/Neck: Neck supple, no apparent injury, thyroid without mass or tenderness, No JVD, trachea midline, no bruits Respiratory/Thorax: Patent airways, CTAB, normal breath sounds with good chest expansion, thorax symmetric Cardiovascular: Regular, rate and rhythm, no murmurs, 2+ equal pulses of the extremities, normal S 1and S 2 Gastrointestinal: Nondistended, soft, non-tender, no rebound tenderness or guarding, no masses palpable, no organomegaly, +BS, no bruits Musculoskeletal: ROM intact, no joint swelling, normal strength Extremities: normal extremities, no cyanosis edema, contusions or wounds, no clubbing Neurological: alert and oriented x3, intact senses, motor, response and reflexes, normal strength Lymphatic: No significant lymphadenopathy Psychological: Appropriate mood and behavior Skin: Warm and dry, no lesions, no rashes Medications: Medications: ANTI-INFECTIVES: 1. Piperacillin - Tazobactam 2.25 grams/Iso-osmotic 50 mL Premix IVPB: 50 mL IntraVenous Piggyback Every 8 Hours CARDIOVASCULAR AGENTS: 1. Isosorbide Mononitrate Extended Release: 30 mg Oral Daily 2. NIFEdipine (PROCARDIA XL) Extended Release: 30 mg Oral Daily CENTRAL NERVOUS SYSTEM AGENTS: 1. Acetaminophen: 650 mg Oral Every 4 Hours PRN 2. Ondansetron Injectable: 4 mg IntraVenous Push Every 4 Hours PRN COAGULATION MODIFIERS: 1. Heparin SubCutaneous: 5000 unit(s) SubCutaneous Every 8 Hours GASTROINTESTINAL AGENTS: 1. Sodium Bicarbonate: 650 mg Oral Every 24 Hours METABOLIC AGENTS: 1. Allopurinol: 100 mg Oral Every 24 Hours NUTRITIONAL PRODUCTS: 1. Lactated Ringers Infusion: 1000 mL IntraVenous 2. Sodium Chloride 0.9% Infusion: 1000 mL IntraVenous 3. Sodium Chloride 0.9% Injectable Flush: 10 mL IntraVenous Flush Every 8 Hours and as Needed PRN 4. Calcitriol: 0.25 microgram(s) Oral Daily Conditional Medication Orders 1. Perflutren Lipid Microsphere (Activated) 1.3 mL / NaCL 0.9% T.V. 10 mL Injectable: 0.5 mL IntraVenous Push Once Rece (more content not included)...[facility]07-27-2023 History of Present illness Narrative* Ata Hernandez, DO - 12/26/2022 2:15 PM EDT History of Present Illness Chief Complaint Patient presents with Shortness of Breath Patient c/o SOB with lite activity at home. He fatigues very easy with dyspnea with sitting up and talking. OT says pulxe stays 89-92% at rest. Says when he was in the hospital in October he was diagnosed with pneumonia. Kidney Infection States he was taken by squad to [facility] in October due to he was mentally and physically depleted. Says he had a bad kidney infection/stones. Stents were placed. Says his infection was so bad he doesn't remember much while being in the hospital until the infection started improving. He currently has a jamison and is following up with urology. Review of Systems Constitutional: Negative for activity change, chills and fever. HENT: Negative for dental problem, ear pain, mouth sores, sinus pain and trouble swallowing. Eyes: Negative for discharge and visual disturbance. Respiratory: Negative for chest tightness, shortness of breath and wheezing. Cardiovascular: Negative for chest pain, palpitations and leg swelling. Gastrointestinal: Negative for abdominal pain and nausea. Endocrine: Negative for polydipsia, polyphagia and polyuria. Genitourinary: Negative for difficulty urinating, flank pain, frequency and urgency. Musculoskeletal: Negative for arthralgias, back pain, myalgias and neck pain. Skin: Negative for color change and rash. Neurological: Negative for dizziness, syncope and light-headedness. Psychiatric/Behavioral: Negative for decreased concentration and sleep disturbance. All other systems reviewed and are negative. Vitals: Blood pressure 114/70, pulse 110, temperature 99 F (37.2 C), resp. rate 18, height 1.778 m (5' 10), weight 109.2 kg (240 lb 12.8 oz), SpO2 97 %. Physical Exam Vitals and nursing note reviewed. HENT: Head: Normocephalic. Cardiovascular: Rate and Rhythm: Normal rate and regular rhythm. Heart sounds: No murmur heard. Pulmonary: Effort: Pulmonary effort is normal. Breath sounds: Normal breath sounds. Abdominal: General: Bowel sounds are normal. Palpations: Abdomen is soft. Tenderness: There is no abdominal tenderness. Musculoskeletal: General: No swelling. Assessment and Plan ICD-10-CM 1. Physical deconditioning R53.81 2. Hydronephrosis with urinary obstruction due to ureteral calculus N13.2 3. Anemia in stage 4 chronic kidney disease N18.4 D63.1 4. Prostate cancer C61 5. Acquired hypothyroidism E03.9 6. Acute renal failure with acute cortical necrosis N17.1 Begin Procrit once every 14 days. Hold Procrit is hemoglobin is over 10. Obtain blood work. If lab work or other testing was ordered at your visit, please call our office ([phone]) one week after the lab draw or test to receive your results. Order placed for home oxygen. Do not take ibuprofen. Referral to Nephrology, Dr. Merritt. Sanchez Ying [facility], was the medical lab scientist for today's note. I have performed all essential components of the history and physical exam, confirmed the diagnosis and developed a plan of care at this visit. I have reviewed the note at the visit and have added edits as appropriate to my evaluation andplan of care. documented in this encounterOhio[facility]07-27-2023 Instructions* Patient Instructions* Sanchez Ying - 12/26/2022 2:15 PM EDT Assessment and Plan ICD-10-CM 1. Physical deconditioning R53.81 2. Hydronephrosis with urinary obstruction due to ureteral calculus N13.2 3. Anemia in stage 4 chronic kidney disease N18.4 D63.1 4. Prostate cancer C61 5. Acquired hypothyroidism E03.9 6. Acute renal failure with acute cortical necrosis N17.1 Begin Procrit once every 14 days. Hold Procrit is hemoglobin is over 10. Obtain blood work. If lab work or other testing was ordered at your visit, please call our office ([phone]) one week after the lab draw or test to receive your results. Order placed for home oxygen. Do not take ibuprofen. Referral to Nephrology, Dr. Merritt. Sanchez Ying [facility], was the medical lab scientist for today's note. I have performed all essential components of the history and physical exam, confirmed the diagnosis and developed a plan of care at this visit. I have reviewed the note at the visit and have added edits as appropriate to my evaluation andplan of care. documented in this encounterOhio[facility]06-30-2023 NoteSend Summary: Discharge Summary Providers: Provider RoleProvider Name Emily Castellanos Hafiz ConsultingPeck, Ata Khan Note Recipients: Ata Hernandez DO - [id number] [] Discharge: Summary: Admission Date: .20-Nov-2022 08:14:00 Discharge Date: 29-Nov-2022 Attending Physician at Discharge: Giovanni Pardo Admission Reason: UTI, pneumonia, cystoscopy with stent Final Discharge Diagnoses: UTI, pneumonia, cystoscopy with stent Procedures: Date: 23-Nov-2022 12:08:00 Procedure Name: 1. Cystoscopy w/Retrogrades BILATERAL, L STENT, BLADDER TISSUE RESECTION Condition at Discharge: Satisfactory Disposition at Discharge: [facility] Vital Signs: T PRBPMAPSpO2 [id number]/5391% Date/Time11/29 8:156 8: 8: 8: 8:15 Range(36.7C - 37.2C ) (85 - 95 ) (16 - 18 ) (121 - 148 )/ (53 - 67 ) (90% - 91% ) Highest temp of 37.2 C was recorded at 11/29 0:00 Date: Weight/Scale Type:Height: 23-Nov-2022 06:16228.8 kg / bed Physical Exam: Constitutional: awake/alert/oriented x3, not in acute distress, obese Eyes: PERRL, EOMI, clear sclera ENMT: normal hearing, mucous membranes moist, no pharyngeal erythema or exudates Head/Neck: neck supple, no apparent injury, no JVD, no lymphadenopathy, trachea midline Respiratory/Thorax: patent airways, clear to auscultation bilaterally, no crackles or wheezing or rhonchi Cardiovascular: Regular, rate and rhythm, no murmurs, 2+ equal pulses of the extremities Gastrointestinal: Distended from obesity, positive bowel sounds, soft, non-tender, no rebound tenderness or guarding, no masses palpable, no organomegaly Extremities: no edema Neurological: intact senses, motor, response and reflexes, normal strength, babinski negative Psychological: Appropriate mood and behavior Skin: warm, no rashes Hospital Course: 77-year-old male with a past medical history of Prostate cancer s/p prostatectomy, bladder tumor, urethral stricture, obesity, obstructive sleep apnea, hypertension, left knee chronic pain, hypothyroidism, gout, hyperlipidemia, depression and a questionable poor compliance/adherence with his medications and following up with a family doctor, who presented to the emergency room for a 1 week history of weakness. Patient was found to have sepsis associated with significant acute kidney injury and metabolic acidosis and secondary to community-acquired pneumonia as well as urinary tract infection. Plan Patient finished antibiotic course for pneumonia Appreciate urology and nephrology recommendations also Monitoring kidney function which is minimally improved and patient may need hemodialysis in near future if okay with him but needs close follow-up with nephrology S/p cystoscopy and ureteral stent placed on 11/23, Supportive care Pressure has been running high and hence on nifedipine as well Imdur, ongoing reconciliation per PCP Patient needs to check thyroid level outpatient and may need replacement therapy Education counseling Compliance emphasized Also UTI with fungal infection being treated with IV micafungin To finish the course Patient was given Epogen for anemia of chronic disease Follow outpatient CBC BMP as per nephrology Stable at this point for discharge to rehab time to dc > 35 mins Discharge Information: and Continuing Care: Lab Results - Pending: Coronavirus 2019, Screen Asymptomatic Drawn at 29-Nov-2022 12:03:00 Culture, Blood Drawn at 27-Nov-2022 10:43:00 Surgical Pathology Drawn at 23-Nov-2022 11:52:00 Radiology Results - Pending: None Discharge Instructions: Activity: activity as tolerated. Nutrition/Diet: low fat Follow Up Appointments: Follow-Up Appointment 01: Physician/Dept/Service: follow PCP Call to Schedule in: 1 week Follow-Up Appointment 02: Physician/Dept/Service: follow nephrology and urology as directed please Discharge Medications: Home Medication Multiple Vitamins oral tablet - 1 tab(s) orally once a day micafungin 100 mg intravenous injection - 100 milligram(s) intravenously once a day NIFEdipine 30 mg oral tablet, extended release - 1 tab(s) orally once a day isosorbide mononitrate 30 mg oral tablet, extended release - 1 tab(s) orally once a day PRN Medication acetaminophen 325 mg oral tablet - 2 tab(s) orally every 4 hours, As needed, Temp Greater Than or Equal to 38.0 C Pepto-Bismol 262 mg oral tablet - 2 tab(s) orally once a day, As Needed DNR Status: Code StatusCode Status order at time of discharge: Full Code Electronic Signatures: Giovanni Pardo) (Signed 29-Nov-2022 12:42) Authored: Send Summary, Summary Content, Ongoing Care, DNR Status, Note Completion Last Updated: 29-Nov-2022 12:42 by Giovanni Pardo)[facility] 11-23-2022 History of Present illness NarrativePatient is here for surgery f/u. Hx of hydro. S/P right stent placement and bladder tissue resection on 11/23/22. Recent CR 8.60 on 11/29/22. Prior CR was 15.08 on 11/22/22. Cytology showed no malignantcells. Path report showed chronic inflammation cells. [id number] DO Work Phone: 1(476) 490-495106-24-2023 History of Present illness NarrativePatient is here for surgery f/u. Hx of hydro. S/P right stent placement (UNABLE TO PLACE LEFT) and bladder tissue resection on 11/23/22.Pathology was BENIGN... Recent CR 4.88 (01/22) BUN 51 (01/22) Previous labs 8.60 on 11/29/22. Prior CR was 15.08 on 11/22/22. Cytology showed no malignant cells. Path report showed chronic inflammation cells. Patient has jamison and was changed when inpatient 2 weeks ago. F/U U/S showed resolution of R Richmond but Persistent L Richmond with atrophy. [facility] Work Phone: [phone] 418-681306-22-2023 NoteProcedure: Chart Review: PROCEDURE PERIPHERAL LINE INSERTION Procedure Location: bedside Pre-procedure Verification: completed Time Out - Final Verification: completed immediately prior to procedure start Procedure performed by: mt Rn Oncology Clinical(s): none Findings: grossly normal anatomy Specimen: no Estimated Blood Loss (mL): none Post-Procedure Diagnosis: Ultrasound-guided peripheral IV line insertion The left forearm was selected, then a tourniquet was applied and the insertion area was cleaned with chlorhexidine. A 20 gauge needle was inserted on the 1st attempt. Complications: There were no complications associated with the procedure ATTESTATION Comments/Additional Findings: Using ultrasound I was able to visualize a nonpulsatile vessel and easily guide the tip of the needle into the vein. Blood returned easily and flushed easily with 20 mL normal saline Electronic Signatures: Jacek Castillo I (HAND BOOTMAKER-CLINICAL TRIAL HEAD) (Signed 21-Nov-2022 15:06) Authored: Procedure, Attestation, Chart Review Last Updated: 21-Nov-2022 15:06 by Jacek Castillo I (HAND BOOTMAKER-CLINICAL TRIAL HEAD)[facility]06-21-2023 NoteHistory of Present Illness: HPI: GENET BOOTH is a 77 year old Male Who presented to the emergency room for weakness and fatigue as well as urinary frequency. On presentation, blood pressure 147/78, heart rate 103, respiratory rate 18, afebrile, saturation oxygen 96% on room air. Pertinent findings on blood work-up; WBC 15,200, hemoglobin 11.2, D-dimer 1729, bicarbonate 7, BUN 205, creatinine 16.9 and lactic acid 2.6. Chest x-ray showed a left basilar pneumonia with volume loss. Patient was given in the emergency room ceftriaxone and azithromycin and IV fluids and then admitted to the medical service for further investigation and management. Upon encounter, patient is resting comfortably in his bed. Awake alert and oriented. Dates back his history to around a week ago when he started experiencing progressively worsening fatigue. He denies having any cough or shortness of breath or fever or chills. He does have urinary frequency but no dysuria or hematuria. He did have nausea. His oral intake has been very poor for the past week. No vomiting. No diarrhea. Review of Systems: 10 systems were reviewed and were negative except for those noted in the history of present illness. Past medical history: Prostate cancer s/p prostatectomy, bladder tumor, urethral stricture, obesity, obstructive sleep apnea, hypertension, left knee chronic pain, hypothyroidism, gout, hyperlipidemia, depression Past surgical history: Prostatectomy Social history: Former smoker, no alcohol abuse. No advanced directives. Lives by home by himself. Family history: Has been reviewed and there are no findings pertinent to the chief complaint Comorbidities: Comorbidites: Comorbid Conditionshypertension Pressure Injury: Pressure Injury Present on AdmissionAgree with nursing assessment and diagnoses as stated: Pressure Injury, left posterior gluteal Allergies: iodine: Unknown Medications Prior to Admission: Multiple Vitamins oral tablet: 1 tab(s) orally once a day Pepto-Bismol 262 mg oral tablet: 2 tab(s) orally once a day, As Needed. Objective: Objective Information: T PRBPMAPSpO2 [id number]% Date/Time11/20 15: 18: 18: 18: 18:006/ 18:00 Range(36.3C - 36.7C ) (88 - 105 ) (14 - 23 ) (116 - 155 )/ (63 - 97 ) (83 - 104 ) (96% - 99% ) Pain reported at 11/20 16:00: 0 = None Physical Exam by System: Constitutional: awake/alert/oriented x3, not in acute distress, obese Eyes: PERRL, EOMI, clear sclera ENMT: normal hearing, mucous membranes moist, no pharyngeal erythema or exudates Head/Neck: neck supple, no apparent injury, no JVD, no lymphadenopathy, trachea midline Respiratory/Thorax: patent airways, clear to auscultation bilaterally, no crackles or wheezing or rhonchi Cardiovascular: Regular, rate and rhythm, no murmurs, 2+ equal pulses of the extremities Gastrointestinal: Distended from obesity, positive bowel sounds, soft, non-tender, no rebound tenderness or guarding, no masses palpable, no organomegaly Extremities: no edema Neurological: intact senses, motor, response and reflexes, normal strength, babinski negative Psychological: Appropriate mood and behavior Skin: warm, no rashes Recent Lab Results: Results: CBC: 11/20/2022 08:38 \ Hgb / \ 11.2 L / WBC Plt 15.2 H 414 / Hct \ / 35.9 L \ RBC: 3.89 L MCV: 92 Neutrophil %: 85.3 CMP: 11/20/2022 08:38 NA+ Cl- BUN / 133 L 101 205 HH / Glucose 122 H K+ HCO3- Creat \ 5.3 7 LL 16.92 H \ \ T Bili / \ 0.3 / AST x ---- x ALT 5 Lx ---- x 7 L / Alk P \ / 84 \ Calcium : 9.0 Anion Gap : 30 H Albumin : 4.0 T Protein : 8.0 Coagulation: null PT / / -------< INR < PTT\ \ Radiology Results: Results: Impression: Left basilar pneumonia with volume loss. Xray Chest 1 View [Nov 20 2022 8:52AM] Assessment and Plan: Assessment: 77-year-old male with a past medical history of Prostate cancer s/p prostatectomy, bladder tumor, urethral stricture, obesity, obstructive sleep apnea, hypertension, left knee chronic pain, hypothyroidism, gout, hyperlipidemia, depression and a questionable poor compliance/adherence with his medications and following up with a family doctor, who presented to the emergency room for a 1 week history of weakness. Patient was found to have sepsis [tachycardia, leukocytosis, lactic acidosis] associated with significant acute kidney injury and metabolic acidosis and secondary to community-acquired pneumonia as well as a possible urinary tract infection. I will admit the patient to the intensive care unit along with telemetry and vital signs monitoring. Consult critical care/nephrology. Give IV fluids normal saline at the rate of 100 cc/hour. Repeat BMP and CBC tomorrow. (more content not included)...[facility]01-21-2022 History of Present illness Narrative* Caroline Forde - 06/22/2021 2:00 PM EST Pt failed HST - did not run more then 30minutes * Caroline Forde - 06/22/2021 2:00 PM EST The patient's caregiver arrived @ 1400. He was instructed on Home Study Equipment. Questions were answered and voiced understanding. Estimate also sent home with the Caregiver to give to pt. The following is scanned to this encounter Test Data/Misc documented [facility] Blendagram [id number] History of Present illness Narrative* Gifty Landrum CNP - 05/02/2021 2:15 PM EST Chief Complaint Patient presents with Follow-up 4wk f/u HPI: Genet Booth is a 76 y.o. male known to the urology department for for a history of prostate cancer, voiding dysfunction, bladder mass, and radiation-induced urethral stricture. He underwent urethrotomy with left stent placement on 09/28/20. He is now status post TURBT on 10/17/20 (negative for malignancy), and left ureteral stent removal on 11/23/21. He is following with infectious disease for recurrent sharan infections. Most recently he was found to have elevated post void residual (206 ml) and worsening lower urinarytract symptoms. Recommended follow up with Dr. Lambert to rule out urethral stricture recurrence but pt refused. Pt presents today with worsening symptoms. Urgency/frequency every 1-2 hours has turned into continuous leakage. He reports severe penile pain and swelling. He does not know if there are any penile lesions or discharge. ROS: Nurse Note: Review of Systems Constitutional: Negative. HENT: Negative. Eyes: Negative. Respiratory: Negative. Cardiovascular: Negative. Gastrointestinal: Negative. Endocrine: Negative. Genitourinary: Positive for frequency, penile pain, penile swelling and urgency. Musculoskeletal: Negative. Skin: Negative. Allergic/Immunologic: Negative. Neurological: Negative. Hematological: Negative. Psychiatric/Behavioral: Negative. All other systems reviewed and are negative. Nursing Assessment: Physical Exam Pt presents today for a 4wk follow up. Pt is positive for frequency, penile pain, penile swelling and urgency. 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 Current Outpatient Medications Medication Sig Dispense Refill acetaminophen 500 MG tablet Take 500 mg by mouth every 6 hours as needed for Pain. allopurinol 100 MG tablet Take 1 tablet by mouth 2 times daily. (Patient taking differently: Take 100 mg by mouth daily. ) 60 tablet 11 amLODIPine (Norvasc) 5 MG tablet Take 1 tablet by mouth daily. 90 tablet 3 aspirin EC [address] take 81 mg by mouth daily.. cefUROXime 500 MG tablet Take 1 tablet by mouth every 12 hours for 7 days. 14 tablet 0 DISABILITY PLACARD Disability placard end date 03/02/2026. 1 Each 0 fluconazole 200 MG tablet Take 1 tablet by mouth daily for 7 days. 7 tablet 1 ibuprofen 400 MG tablet Take 400 mg by mouth every 6 hours as needed. levothyroxine 88 MCG tablet Take 1 tablet by mouth daily. 90 tablet 3 lisinopril 10 MG tablet Take 1 tablet by mouth daily. 90 tablet 3 multivitamin tablet Take 1 tablet by mouth daily. Probiotic Product (PROBIOTIC PO) Take by mouth daily. Semaglutide,0.25 or 0.5MG/DOS, (Ozempic, 0.25 or 0.5 MG/DOSE,) 2 MG/1.5ML Solution Pen-injector Inject 0.25 mg under the skin once a week. 1.5 mL 0 Tamsulosin HCl 0.4 MG capsule Take 2 capsules by mouth daily. 60 capsule 11 clotrimazole-betamethasone 1-0.05 % Cream Apply to affected area twice a day until symptoms resolve. 15 g 1 oxybutynin 5 MG tablet Take 1 tablet by mouth 2 times daily. 60 tablet 1 No current facility-administered medications for this visit. family history includes Alzheimer's in his father; Aneurysm in his mother; Clotting Disorder in hismaternal grandfather; Hypertension in his mother. Past Medical History: Diagnosis Date Allergies Chicken pox Depression Dysmetabolic syndrome X Essential hypertension, benign Hepatitis hepatitis B-1980s Hyperlipidemia Hypothyroidism Obesity CHLOÉ (obstructive sleep apnea) Prostate cancer Renal disease left kidney is swollen 09/19/2020 SOB (shortness of breath) STATES HAS BEEN OUT OF SHAPE THE LAST YEAR WITH COVID AND KNEE PAIN Past Surgical History: Procedure Laterality Date CYSTOURETHROSCOPY W/ URETEROSCOPY/PYELOSCOPY DIAGNOSTIC Left 10/17/2020 Laterality: Left; Surgeon: Bam Lambert MD; Location: [facility] OR CYSTOURETHROSCOPY W/ INSERTION STENT URETER Left 10/17/2020 Laterality: Left; Surgeon: Bam Lambert MD; Location: [facility] OR CYSTOURETHROSCOPY W/ FULGURATION/RESECTION LESION BLADDER (TURB) Left 10/17/2020 Laterality: Left; Surgeon: Bam Lambert MD; Location: [facility] OR CYSTOURETHROSCOPY W/ INTERNAL URETHROTOMY (DVIU) N/A 09/28/2020 Laterality: N/A; Surgeon: Bam Lambert MD; Location: [facility] CYSTOURETHROSCOPY W/ INSERTION STENT URETER Left 09/28/2020 Laterality: Left; Surgeon: Bam Lambert MD; Location: [facility] OR EXTRACTION EXTRACAPSULAR CATARACT W/ IMPLANT (ECCE IOL) Bilateral HEART CATHETERIZATION 10-12 years ago KNEE REPLACEMENT Right Social History Socioeconomic History Marital status: Spouse name: Not on file Number of children: Not on file Years of education: Not on file Highest education level: Not on file Occupational History Not on file Tobacco Use Smoking status: Former Smoker Types: Cigarettes Quit date: 1979 Years since quittin.9 Smokeless tobacco: Never Used Vaping Use Vaping Use: Never used Substance and Sexual Activity Alcohol use: Yes Comment: rarely Drug use: No Sexual activity: Not on file Other Topics Concern Not on file Social History Narrative Not on file Social Determinants of Health Financial Resource Strain: Not on file Food Insecurity: Not on file Transportation Needs: Not on file Physical Activity: Not on file Stress: Not on file Social Connections: Not on file Intimate Partner Violence: Not on file Housing Stability: Not on file Physical Exam: Ht 1.778 m (5' 10) Wt (!) 142 kg (313 lb) BMI 44.91 kg/m Smoking Status Former Smoker Body mass index is 44.91 kg/m . 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 Foreskin/glans is excoriated. Very sensitive to palpation. Assessment/Plan: 1. Balanitis 2. Urinary tract infection without hematuria 3. Urinary urgency 4. Urinary frequency 5. Continuous leakage Lotrisone cream prescribed; appropriate use and side effects discussed. He saw infectious disease today, they are managing UTIs. I again recommended follow up with Dr. Lambert for cystoscopy to rule out urethral stricture but I think he would do much better once the infection is cleared up in termsof discomfort. We discussed appropriate hygiene measures. He will follow up in 4 weeks for re-evaluation. Encouraged to return sooner for new or worsening symptoms. - clotrimazole-betamethasone 1-0.05 % Cream; Apply to affected area twice a day until symptoms resolve. Dispense: 15 g; Refill: 1 Patient was advised to call with any questions or concerns. If symptoms worsen patient was advised to follow up in our office or the Emergency Dept. Benefits, Risks, Contraindications, and Complications of recommended treatments were explained the patient understands and agrees to proceed with plan. * Tommy Wilson - 05/02/2021 2:15 PM EST Nurse Note: Review of Systems Constitutional: Negative. HENT: Negative. Eyes: Negative. Respiratory: Negative. Cardiovascular: Negative. Gastrointestinal: Negative. Endocrine: Negative. Genitourinary: Positive for frequency, penile pain, penile swelling and urgency. Musculoskeletal: Negative. Skin: Negative. Allergic/Immunologic: Negative. Neurological: Negative. Hematological: Negative. Psychiatric/Behavioral: Negative. All other systems reviewed and are negative. Nursing Assessment: Physical Exam Pt presents today for a 4wk follow up. Pt is positive for frequency, penile pain, penile swelling and urgency. PVR=98 documented in this [facility]12-01-2021 History of Present illness Narrative* Natalia Porras MD - 05/02/2021 11:45 AM EST HPI Genet Booth 76 y.o. male presents today for Follow-up and Infection (urinary infection) According to medical records, patient has a history of prostate cancer and bladder mass status postradiation and history of radition associated stricture status post uretrhotomy and history of stents s/p removal 11/21/20. Hx of TURBT on 09/2020. Patient was seen by another infectious disease provider last seen in November 2020 for issues with cystitis. According to available notes, patient had Sharan glabrata and was treated with fluconazole inthe past according to notes Patient with urinalysis on 03/14 with large amount of blood, negative nitrite and trace leuk. Molecular test showed small amount of Sharan but no species included. Previous urine cultures on 02/12, 12/20 were negative. Kidney culture on 10/20 showed Sharan glabrata, no susceptibilities performed. Urine culture on 09/20 showed Morganella sensitive to Augmentin, ceftriaxone, Levaquin, Septra, Zosyn, gentamicin, imipenem Ultrasound of kidneys on 03/05/21 showed no hydronephrosis or mass or stone, but somewhat limited exam noted. Patient was given Septra in January and then this was recently refilled according to his report. Patient referred for infectious disease first clinic visit on 03/28 Today, he still has ongoing urinary symptoms for 2 years. He complains of nocturia, frequency of urination when he lays down but not when he is upright, urgency. Some discomfort associated with urgency but no dysuria noted. No fevers chills or sweats. Patient states that his urine appears clear andnot infected at this time. Patient complains of left knee pain and needing for a total knee arthroplasty. today, patient denies any fevers chills or sweats but does have significant redness and rash aroundhis medial area. Patient endorses ongoing incontinence of urine including throughout the night, with resultant laying in cold urine through the night with noted irritation of skin. Patient notes burning around the mouth area but denies any significant scrotal or rectal discomfort. Unclear if the patient's having dysuria given irritation around this area. Patient states that his symptoms of severe incontinence and issues above began approximately a weekand a half ago. He has not sought care in the interim and has not been on any recent antimicrobials. [facility](WBC,WBCCOUNT,WBCFETAL,HGB,HCT,PLATELET,MCV) ESR Lab Results Component Value Date RBCDISTRIBU 16.3 (H) 04/16/2021 EOSINOPHILS 2.6 04/16/2021 EOSINOPHILS 0.20 04/16/2021 BASOPHILS 0.9 04/16/2021 BASOPHILS 0.1 04/16/2021 LYMPHOCYTABS 1.60 04/16/2021 PLATELET 284 04/16/2021 MPV 9.3 04/16/2021 Lab Results Component Value Date SODIUM 144 04/16/2021 POTASSIUM 4.5 04/16/2021 CHLORIDE 109 (H) 04/16/2021 CO2 24 04/16/2021 BUN 22 (H) 04/16/2021 CREATSERUM 1.70 (H) 04/16/2021 GLUCOSE 109 (H) 04/16/2021 No results found for: CRP Lab Results Component Value Date RESULTCULT NO PATHOGENS ISOLATED 03/28/2021 IMAGING US RENAL RETROPERITONEAL Result Date: 03/05/2021 EXAM: US RENAL RETROPERITONEAL HISTORY: hydronephrosis COMPARISON: 10/09/2020 TECHNIQUE: Grayscale and color imaging of the kidneys and bladder performed FINDINGS: Right kidney measures 14 x 7 x 6 cm and the left measures 11 x 6 x 5 cm. Cortical thickness of the right and left kidneys measures 1.3 and 1.0 cm respectively. Please note that portions of the examination are limited as the patient was scanned in wheelchair. Particularly the left kidney was suboptimally visualized in its entirety. No hydronephrosis identified involving either kidney. No obvious focal renal mass however this is somewhat limited particularly involving the left kidney. Bladder is not well-distended limiting evaluation. IMPRESSION: No hydronephrosis. Examination limited as the patient was scanned in wheelchair. No obvious right renal mass or echogenic shadowing renal calculus. Left kidney somewhat limited in evaluation. ROS No notes on file HISTORY/ALLERGIES/MEDS Allergies Allergen Reactions Wellbutrin [Bupropion] Anxiety panick attack *Seasonal Other reaction(s): AOF Betadine [Povidone Iodine] Other reaction(s): AOF Ciprofloxacin Rash and Itching Iodine Hives and Nausea and Vomiting Ivp Dye, Iodine Containing Meloxicam Hematuria Past Medical History: Diagnosis Date Allergies Chicken pox Depression Dysmetabolic syndrome X Essential hypertension, benign Hepatitis hepatitis B-1980s Hyperlipidemia Hypothyroidism Obesity CHLOÉ (obstructive sleep apnea) Prostate cancer Renal disease left kidney is swollen 09/19/2020 SOB (shortness of breath) STATES HAS BEEN OUT OF SHAPE THE LAST YEAR WITH COVID AND KNEE PAIN Past Surgical History: Procedure Laterality Date CYSTOURETHROSCOPY W/ URETEROSCOPY/PYELOSCOPY DIAGNOSTIC Left 10/17/2020 Laterality: Left; Surgeon: Bam Lambert MD; Location: [facility] OR CYSTOURETHROSCOPY W/ INSERTION STENT URETER Left 10/17/2020 Laterality: Left; Surgeon: Bam Lambert MD; Location: [facility] OR CYSTOURETHROSCOPY W/ FULGURATION/RESECTION LESION BLADDER (TURB) Left 10/17/2020 Laterality: Left; Surgeon: Bam Lambert MD; Location: [facility] OR CYSTOURETHROSCOPY W/ INTERNAL URETHROTOMY (DVIU) N/A 09/28/2020 Laterality: N/A; Surgeon: Bam Lambert MD; Location: [facility] CYSTOURETHROSCOPY W/ INSERTION STENT URETER Left 09/28/2020 Laterality: Left; Surgeon: Bam Lambert MD; Location: [facility] OR EXTRACTION EXTRACAPSULAR CATARACT W/ IMPLANT (ECCE IOL) Bilateral HEART CATHETERIZATION 10-12 years ago KNEE REPLACEMENT Right Social History Socioeconomic History Marital status: Spouse name: Not on file Number of children: Not on file Years of education: Not on file Highest education level: Not on file Occupational History Not on file Tobacco Use Smoking status: Former Smoker Types: Cigarettes Quit date: 1979 Years since quittin.9 Smokeless tobacco: Never Used Vaping Use Vaping Use: Never used Substance and Sexual Activity Alcohol use: Yes Comment: rarely Drug use: No Sexual activity: Not on file Other Topics Concern Not on file Social History Narrative Not on file Social Determinants of Health Financial Resource Strain: Not on file Food Insecurity: Not on file Transportation Needs: Not on file Physical Activity: Not on file Stress: Not on file Social Connections: Not on file Intimate Partner Violence: Not on file Housing Stability: Not on file Family History Problem Relation Age of Onset Hypertension Mother Aneurysm Mother Alzheimer's Father Clotting Disorder Maternal Grandfather of blood clot age late 40s, but there were other things too Current Outpatient Medications: acetaminophen 500 MG tablet, Take 500 mg by mouth every 6 hours as needed for Pain. , Disp: , Rfl: allopurinol 100 MG tablet, Take 1 tablet by mouth 2 times daily. (Patient taking differently: Take 100 mg by mouth daily. ), Disp: 60 tablet, Rfl: 11 amLODIPine (Norvasc) 5 MG tablet, Take 1 tablet by mouth daily., Disp: 90 tablet, Rfl: 3 aspirin EC [address], take 81 mg by mouth daily.., Disp: , Rfl: DISABILITY PLACARD, Disability placard end date 03/02/2026., Disp: 1 Each, Rfl: 0 ibuprofen 400 MG tablet, Take 400 mg by mouth every 6 hours as needed. , Disp: , Rfl: levothyroxine 88 MCG tablet, Take 1 tablet by mouth daily., Disp: 90 tablet, Rfl: 3 lisinopril 10 MG tablet, Take 1 tablet by mouth daily., Disp: 90 tablet, Rfl: 3 multivitamin tablet, Take 1 tablet by mouth daily., Disp: , Rfl: Probiotic Product (PROBIOTIC PO), Take by mouth daily., Disp: , Rfl: Semaglutide,0.25 or 0.5MG/DOS, (Ozempic, 0.25 or 0.5 MG/DOSE,) 2 MG/1.5ML Solution Pen-injector, Inject 0.25 mg under the skin once a week., Disp: 1.5 mL, Rfl: 0 Tamsulosin HCl 0.4 MG capsule, Take 2 capsules by mouth daily., Disp: 60 capsule, Rfl: 11 EXAM Smoking Status Former Smoker Physical Exam Vitals and nursing note reviewed. Constitutional: General: He is not in acute distress. Appearance: He is not toxic-appearing. HENT: Head: Normocephalic and atraumatic. Mouth/Throat: Pharynx: Oropharynx is clear. No oropharyngeal exudate. Eyes: Extraocular Movements: Extraocular movements intact. Conjunctiva/sclera: Conjunctivae normal. Pupils: Pupils are equal, round, and reactive to light. Cardiovascular: Rate and Rhythm: Normal rate and regular rhythm. Pulses: Normal pulses. Heart sounds: No murmur heard. Pulmonary: Effort: No respiratory distress. Breath sounds: Normal breath sounds. No rhonchi or rales. Abdominal: General: Bowel sounds are normal. There is no distension. Palpations: Abdomen is soft. There is no mass. Tenderness: There is no abdominal tenderness. There is no guarding. Genitourinary: Comments: No CVA or suprapubic tenderness Patient has no scrotal discomfort or signs of a scrotal abscess or epididymitis Patient does have severe irritation with erythema and some peeling of skin in his perineal areas that appears to be contact dermatitis likely due to urine as well as potential fungal infection Penis is retracted and full exam not possible due to skin irritation in this area and pain. Patientdid not want full evaluation given discomfort. Patient will be seeing urology later today Musculoskeletal: General: No swelling or tenderness. Normal range of motion. Cervical back: Normal range of motion. No rigidity. Skin: General: Skin is warm. Findings: No rash. Neurological: General: No focal deficit present. Mental Status: He is alert. Comments: In wheelchair Psychiatric: Mood and Affect: Mood normal. Behavior: Behavior normal. Thought Content: Thought content normal. Diagnosis/Plan: There are no diagnoses linked to this encounter. Recurrent urinary symptoms -Patient has 2 year history of recurrent urinary symptoms and concern for repeated urinary infections -Kidney specimen previously showed Sharan glabrata that was treated by another infectious disease provider with fluconazole, however I could not identify any susceptibilities and this specific species is often fluconazole resistant. -Renal ultrasound on 03/05 was unrevealing with no hydronephrosis or fungal ball or stones noted -Most recent urine specimen 03/14 had a few Sharan noted on molecular test. Recent urine cultures have been negative -Meaning of few Sharan on a molecular tests is unclear as this could be colonization alone -Repeat urine on 03/28 showed cloudy urine with no significant nitrite and only small leukocyte, with notable blood. Urine culture negative. -Based on the current available data, there is no evidence of a bacterial infection and recommendeddiscontinuing Septra on 03/28. -Patient has follow-up with urology, may need to consider further cystoscopy as well but will deferto Dr. Lambert regarding this procedure. Reviewed last urology note from 03/28, plans for possible scope and stricture procedure; this is still not been done and patient advised to follow-up with their clinic -Recommend repeat urinalysis and culture with any new UTI symptoms or if patient will have cystoscopy to do a pre-urine test to assure no pathogen that would need to be treated before the procedure. -patient has urology follow-up today but is not willing to have cystoscopy given pain in the urethral area -Will order urine sample and culture today -Will begin fluconazole 200 mg daily given infection history as well as visible perineal infection; QTc interval from EKG on 04/16 was within normal limits -Will given empiric Antibiotic course pending culture data given severity of symptoms With cefuroxime 500 mg by mouth twice a day -Recommended follow-up within 1 week Yeast infection and incontinence related dermatitis -Recommend avoiding urine skin contact and defer to urology whether catheter should be placed -Antifungal therapy as above Elevated creatinine -Last creatinine was 1.7 Health maintenance -recommend assuring patient up-to-date with influenza and coronavirus vaccine Patient advised to return to clinic in 1 week, earlier if any infectious disease concerns arise * Juanito Burgess LPN - 05/02/2021 11:45 AM EST A complete review of systems are negative except those consistent with HPI No fevers, chills or sweats No cough, chest pain No dysphagia, odynophagia No abdominal pain, nausea, vomiting, diarrhea dysuria, frequency, hematuria No headache, dizziness, focal neurologic complaints No ear pain No sinus pain No rash No weight loss No joint or muscular pain Large amounts of urine, incontinence, Swelling, Recent travel history? No documented in this [facility]07-28-2021 History of Present illness Narrative* Chirag Hoang MD - 12/27/2020 1:00 PM EDT Chief Complaint Patient presents with Follow-up Infection acute cystitis HPI Patient seen, known history of CHLOÉ, Prostate cancer/bladder mass, and s/p radiation, and complicated with urethrotomy strictures, s/p urethrotomy, s/p stent removal on 11/23/2020. Patient had been having recurrent sharan glabrata. Patient have been s/p fluconazole multiple times. Patient was referred due to recurrent uti. Patient complains of strong urine smell, and cloudy. No fever, no flank pains, no blood in urine. No fever, no chills, no Night sweat. Again on 12/27/2020: Patient seen, no new symptoms, but still color change, thinks its yellow and urgency, otherwise no dysuria. Past Medical History: Diagnosis Date Allergies Chicken pox Depression Dysmetabolic syndrome X Essential hypertension, benign Hepatitis hepatitis B-1980s Hyperlipidemia Hypothyroidism Obesity CHLOÉ (obstructive sleep apnea) Prostate cancer Renal disease left kidney is swollen 09/19/2020 SOB (shortness of breath) STATES HAS BEEN OUT OF SHAPE THE LAST YEAR WITH COVID AND KNEE PAIN Outpatient Medications Prior to Visit Medication Sig Dispense Refill acetaminophen 500 MG tablet Take 500 mg by mouth every 6 hours as needed for Pain. allopurinol 100 MG tablet Take 1 tablet by mouth 2 times daily. (Patient taking differently: Take 100 mg by mouth daily. ) 60 tablet 11 aspirin EC [address] take 81 mg by mouth daily.. hydroCODone-acetaminophen 5-325 MG tablet Take 1 tablet by mouth every 4 hours as needed for up to 2 days. 12 tablet 0 ibuprofen 400 MG tablet Take 400 mg by mouth every 6 hours as needed. levothyroxine 88 MCG tablet Take 1 tablet by mouth daily. 30 tablet 1 lisinopril (ZESTRIL) 20 MG Tab Take 1 tablet by mouth daily. 90 tablet 3 multivitamin tablet Take 1 tablet by mouth daily. oxybutynin 5 MG tablet Take 1 tablet by mouth 3 times daily as needed (bladder spasm/urinary frequency). 30 tablet 1 Probiotic Product (PROBIOTIC PO) Take by mouth daily. Tamsulosin HCl 0.4 MG Cap capsule Take 1 capsule by mouth at bedtime. 30 capsule 0 No facility-administered medications prior to visit. Allergies Allergen Reactions Wellbutrin [Bupropion] Anxiety panick attack *Seasonal Other reaction(s): AOF Betadine [Povidone Iodine] Other reaction(s): AOF Ciprofloxacin Rash and Itching Iodine Hives and Nausea and Vomiting Ivp Dye, Iodine Containing Meloxicam Hematuria Family History Problem Relation Age of Onset Hypertension Mother Aneurysm Mother Alzheimer's Father Clotting Disorder Maternal Grandfather of blood clot age late 40s, but there were other things too Social History Socioeconomic History Marital status: Spouse name: Not on file Number of children: Not on file Years of education: Not on file Highest education level: Not on file Occupational History Not on file Tobacco Use Smoking status: Former Smoker Types: Cigarettes Quit date: 1979 Years since quittin.6 Smokeless tobacco: Never Used Vaping Use Vaping Use: Never used Substance and Sexual Activity Alcohol use: Yes Comment: rarely Drug use: No Sexual activity: Not on file Other Topics Concern Not on file Social History Narrative Not on file Social Determinants of Health Financial Resource Strain: Difficulty of Paying Living Expenses: Food Insecurity: Worried About Running Out of Food in the Last Year: Ran Out of Food in the Last Year: Transportation Needs: Lack of Transportation (Medical): Lack of Transportation (Non-Medical): Physical Activity: Days of Exercise per Week: Minutes of Exercise per Session: Stress: Feeling of Stress : Social Connections: Frequency of Communication with Friends and Family: Frequency of Social Gatherings with Friends and Family: Attends [employer] Services: Active Member of Clubs or Organizations: Attends Club or Organization Meetings: Marital Status: Intimate Partner Violence: Fear of Current or Ex-Partner: Emotionally Abused: Physically Abused: Sexually Abused: Review of Systems Constitutional: Negative for chills and fever. HENT: Negative for hearing loss and sore throat. Eyes: Negative for pain and itching. Respiratory: Negative for cough, shortness of breath and wheezing. Cardiovascular: Negative for chest pain, palpitations and leg swelling. Gastrointestinal: Negative for abdominal distention, blood in stool, diarrhea, nausea and vomiting. Genitourinary: Negative for difficulty urinating, dysuria, frequency and hematuria. Musculoskeletal: Negative for arthralgias and joint swelling. Skin: Negative for pallor, rash and wound. Neurological: Negative for dizziness and weakness. Psychiatric/Behavioral: Negative for confusion and sleep disturbance. Examination: BP 112/84 Pulse (Heart Rate) 101 Temp 97.5 F (36.4 C) Temp source Oral O2 Sat (%) 95 % Weight 137.3 kg (302 lb 9.6 oz)Abnormal Height 1.803 m (5' 11) Physical Exam: GEN: Awake, resting comfortably EYES: EOMI, no scleral icterus HENT: MMM. No oral lesions. On face mask+ NECK: Supple, CARDIO: RRR, PULM/CHEST: CTAB. No increased work of breathing ABD: Morbidly obese+, Soft, not tender or distended MSK: no obvious effusion, swelling, increased warmth, or erythema of major joints. No pedal edema. SKIN: No rashes. Hands and fingers appear normal. NEURO: AOx3. Moves all four extremities. Labs; I reviewed labs. Assess; Patient with 1: Recurrent UTI, with sharan glabrata. Negative urine cx. ?Failed therapy with fluconazole. Plans: I reviewed labs with patient, and Urine cult, and urinalysis(Not indicating infection0. Cbc., bmp. Follow up with Urologist. Patient does not need any iv fluconazole or amphotericin B At this time. Follow up prn, or any symptoms of uti. All medications, and side effects, were adequately explained to patient. Antibiotic therapy risks and allergic reactions including rashes, diarrhea, C. diff colitis, angioedema and Molina-Toño like reaction were also discussed , and all questions answered, with patient expressing understanding. Over 50% of the clinic visit was involved in Discussion of Diagnosis, Plan, Infection Control , Prevention and Follow up. I have spent enough clinical quality time on face to face evaluation of patient, with/without family member, and reviewing medical records. Chirag Hoang MD Patient here for follow up of recurrent UTI, acute cystitis .Patient reports symptoms have not improved, still complains of frequency, urgency, strong odor, cloudy urine and severe fatigue. Patient denies fever, chills, n/v/d, constipation, blood in urine/stool. Patient had culture, labs 12-20-2020.Patient would like to discuss results and treatment moving forward. * Tonya Wilkins LPN - 12/27/2020 1:00 PM EDT Patient here for follow up of recurrent UTI, acute cystitis .Patient reports symptoms have not improved, still complains of frequency, urgency, strong odor, cloudy urine and severe fatigue. Patient denies fever, chills, n/v/d, constipation, blood in urine/stool. Patient had culture, labs 12-20-2020.Patient would like to discuss results and treatment moving forward. [facility] History of Present illness Narrative* Chirag Hoang MD - 12/20/2020 10:30 AM EDT Chief Complaint Patient presents with New Patient Other Recurrent sharan UTI HPI Patient seen, known history of CHLOÉ, Prostate cancer/bladder mass, and s/p radiation, and complicated with urethrotomy strictures, s/p urethrotomy, s/p stent removal on 11/23/2020. Patient had been having recurrent sharan glabrata. Patient have been s/p fluconazole multiple times. Patient was referred due to recurrent uti. Patient complains of strong urine smell, and cloudy. No fever, no flank pains, no blood in urine. No fever, no chills, no Night sweat. Past Medical History: Diagnosis Date Allergies Chicken pox Depression Dysmetabolic syndrome X Essential hypertension, benign Hepatitis hepatitis B-1980s Hyperlipidemia Hypothyroidism Obesity CHLOÉ (obstructive sleep apnea) Prostate cancer Renal disease left kidney is swollen 09/19/2020 SOB (shortness of breath) STATES HAS BEEN OUT OF SHAPE THE LAST YEAR WITH COVID AND KNEE PAIN Outpatient Medications Prior to Visit Medication Sig Dispense Refill acetaminophen 500 MG tablet Take 500 mg by mouth every 6 hours as needed for Pain. allopurinol 100 MG tablet Take 1 tablet by mouth 2 times daily. (Patient taking differently: Take 100 mg by mouth daily. ) 60 tablet 11 aspirin EC [address] take 81 mg by mouth daily.. hydroCODone-acetaminophen 5-325 MG tablet Take 1 tablet by mouth every 4 hours as needed for up to 2 days. 12 tablet 0 ibuprofen 400 MG tablet Take 400 mg by mouth every 6 hours as needed. levothyroxine 88 MCG tablet Take 1 tablet by mouth daily. 30 tablet 1 lisinopril (ZESTRIL) 20 MG Tab Take 1 tablet by mouth daily. 90 tablet 3 multivitamin tablet Take 1 tablet by mouth daily. oxybutynin 5 MG tablet Take 1 tablet by mouth 3 times daily as needed (bladder spasm/urinary frequency). 30 tablet 1 Probiotic Product (PROBIOTIC PO) Take by mouth daily. Tamsulosin HCl 0.4 MG Cap capsule Take 1 capsule by mouth at bedtime. 30 capsule 0 No facility-administered medications prior to visit. Allergies Allergen Reactions Wellbutrin [Bupropion] Anxiety panick attack *Seasonal Other reaction(s): AOF Betadine [Povidone Iodine] Other reaction(s): AOF Ciprofloxacin Rash and Itching Iodine Hives and Nausea and Vomiting Ivp Dye, Iodine Containing Meloxicam Hematuria Family History Problem Relation Age of Onset Hypertension Mother Aneurysm Mother Alzheimer's Father Clotting Disorder Maternal Grandfather of blood clot age late 40s, but there were other things too Social History Socioeconomic History Marital status: Spouse name: Not on file Number of children: Not on file Years of education: Not on file Highest education level: Not on file Occupational History Not on file Tobacco Use Smoking status: Former Smoker Types: Cigarettes Quit date: 1979 Years since quittin.5 Smokeless tobacco: Never Used Vaping Use Vaping Use: Never used Substance and Sexual Activity Alcohol use: Yes Comment: rarely Drug use: No Sexual activity: Not on file Other Topics Concern Not on file Social History Narrative Not on file Social Determinants of Health Financial Resource Strain: Difficulty of Paying Living Expenses: Food Insecurity: Worried About Running Out of Food in the Last Year: Ran Out of Food in the Last Year: Transportation Needs: Lack of Transportation (Medical): Lack of Transportation (Non-Medical): Physical Activity: Days of Exercise per Week: Minutes of Exercise per Session: Stress: Feeling of Stress : Social Connections: Frequency of Communication with Friends and Family: Frequency of Social Gatherings with Friends and Family: Attends [employer] Services: Active Member of Clubs or Organizations: Attends Club or Organization Meetings: Marital Status: Intimate Partner Violence: Fear of Current or Ex-Partner: Emotionally Abused: Physically Abused: Sexually Abused: Review of Systems Constitutional: Negative for chills and fever. HENT: Negative for hearing loss and sore throat. Eyes: Negative for pain and itching. Respiratory: Negative for cough, shortness of breath and wheezing. Cardiovascular: Negative for chest pain, palpitations and leg swelling. Gastrointestinal: Negative for abdominal distention, blood in stool, diarrhea, nausea and vomiting. Genitourinary: Negative for difficulty urinating, dysuria, frequency and hematuria. Musculoskeletal: Negative for arthralgias and joint swelling. Skin: Negative for pallor, rash and wound. Neurological: Negative for dizziness and weakness. Psychiatric/Behavioral: Negative for confusion and sleep disturbance. Examination: BP 112/84 Pulse (Heart Rate) 101 Temp 97.5 F (36.4 C) Temp source Oral O2 Sat (%) 95 % Weight 137.3 kg (302 lb 9.6 oz)Abnormal Height 1.803 m (5' 11) Physical Exam: GEN: Awake, resting comfortably EYES: EOMI, no scleral icterus HENT: MMM. No oral lesions. On face mask+ NECK: Supple, CARDIO: RRR, PULM/CHEST: CTAB. No increased work of breathing ABD: Morbidly obese+, Soft, not tender or distended MSK: no obvious effusion, swelling, increased warmth, or erythema of major joints. No pedal edema. SKIN: No rashes. Hands and fingers appear normal. NEURO: AOx3. Moves all four extremities. Labs; I reviewed labs. Assess; Patient with 1: Recurrent UTI, with sharan glabrata. ?Failed therapy with fluconazole. Plans: Will repeat labs for now, and Urine cult, and urinalysis. Cbc., bmp. May start on iv fluconazole or amphotericin B ,if no improvement. Follow up in 1 weeks. All medications, and side effects, were adequately explained to patient. Antibiotic therapy risks and allergic reactions including rashes, diarrhea, C. diff colitis, angioedema and Molina-Toño like reaction were also discussed , and all questions answered, with patient expressing understanding. Over 50% of the clinic visit was involved in Discussion of Diagnosis, Plan, Infection Control , Prevention and Follow up. I have spent enough clinical quality time on face to face evaluation of patient, with/without family member, and reviewing medical records. Chirag Hoang MD Patient referred by Gifty Landrum for recurrent sharan UTI. Patient recently had urethrotomy, and stent removal, was treated with fluconazole 1 month ago. Patient reports he has frequency, urgency, strong odor, cloudy urine and severe fatigue. Patient denies fever, chills, n/v/d, constipation, blood in urine/stool. Patient is not currently being treated with anything for the UTI, patient had molecular testing 12-15-20. Patient has no other concerns at this time. * Tonya Wilkins LPN - 12/20/2020 10:30 AM EDT Patient referred by Gifty Landrum for recurrent sharan UTI. Patient recently had urethrotomy, and stent removal, was treated with fluconazole 1 month ago. Patient reports he has frequency, urgency, strong odor, cloudy urine and severe fatigue. Patient denies fever, chills, n/v/d, constipation, blood in urine/stool. Patient is not currently being treated with anything for the UTI, patient had molecular testing 12-15-20. Patient has no other concerns at this time. [facility] History of Present illness Narrative* Caitlin Mata - 12/12/2020 2:15 PM EDT Nurse Note: Review of Systems Constitutional: Negative. HENT: Negative. Eyes: Negative. Respiratory: Negative. Cardiovascular: Negative. Gastrointestinal: Negative. Endocrine: Negative. Genitourinary: Positive for frequency and urgency. Nocturia Musculoskeletal: Negative. Skin: Negative. Allergic/Immunologic: Negative. Neurological: Negative. Hematological: Negative. Psychiatric/Behavioral: Negative. Nursing Assessment: Physical Exam Patient is here today for a follow up for urethral stricture and voiding dysfunction. Patient states he is having urgency and frequency, he feels he still has an infection. PVR: 18 Lab Results Component Value Date APPEARANCE clear 12/12/2020 COLOR yellow 12/12/2020 KETONES neg 12/12/2020 SPECIFICGRAV >=1.030 12/12/2020 BLOOD moderate 12/12/2020 PH 6.0 12/12/2020 PROTEIN 100 12/12/2020 UROBILINOGEN 0.2 12/12/2020 NITRITE neg 12/12/2020 LEUKOCYTE large 12/12/2020 * Gifty Landrum, CLINICAL TRIAL HEAD - 12/12/2020 2:15 PM EDT Chief Complaint Patient presents with Follow-up HPI: Genet Booth is a 75 y.o. male known to the urology department for a history of prostate cancer, voiding dysfunction, bladder mass, and radiation- inducedurethral stricture. He underwent urethrotomy with left stent placement on 09/28/20. He is now status post TURBT on 10/17/20, and left ureteral stent removal on 11/23/21. Recently completed course of fluconazole for fungal infection. Pt reports improvement in urine stream and bladder emptying but is complaining of increased urgency, frequency, andnocturia. Denies abdominal/flank pain, dysuria, hematuria, nausea, vomiting, fever, or chills. ROS: Nurse Note: Review of Systems Constitutional: Negative. HENT: Negative. Eyes: Negative. Respiratory: Negative. Cardiovascular: Negative. Gastrointestinal: Negative. Endocrine: Negative. Genitourinary: Positive for frequency and urgency. Nocturia Musculoskeletal: Negative. Skin: Negative. Allergic/Immunologic: Negative. Neurological: Negative. Hematological: Negative. Psychiatric/Behavioral: Negative. Nursing Assessment: Physical Exam Patient is here today for a follow up for urethral stricture and voiding dysfunction. Patient states he is having urgency and frequency, he feels he still has an infection. 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 Current Outpatient Medications Medication Sig Dispense Refill acetaminophen 500 MG tablet Take 500 mg by mouth every 6 hours as needed for Pain. allopurinol 100 MG tablet Take 1 tablet by mouth 2 times daily. (Patient taking differently: Take 100 mg by mouth daily. ) 60 tablet 11 aspirin EC [address] take 81 mg by mouth daily.. ibuprofen 400 MG tablet Take 400 mg by mouth every 6 hours as needed. levothyroxine 88 MCG tablet Take 1 tablet by mouth daily. 30 tablet 1 lisinopril (ZESTRIL) 20 MG Tab Take 1 tablet by mouth daily. 90 tablet 3 multivitamin tablet Take 1 tablet by mouth daily. oxybutynin 5 MG tablet Take 1 tablet by mouth 3 times daily as needed (bladder spasm/urinary frequency). 30 tablet 1 Probiotic Product (PROBIOTIC PO) Take by mouth daily. Tamsulosin HCl 0.4 MG Cap capsule Take 1 capsule by mouth at bedtime. 30 capsule 0 hydroCODone-acetaminophen 5-325 MG tablet Take 1 tablet by mouth every 4 hours as needed for up to 2 days. 12 tablet 0 No current facility-administered medications for this visit. family history includes Alzheimer's in his father; Aneurysm in his mother; Clotting Disorder in hismaternal grandfather; Hypertension in his mother. Past Medical History: Diagnosis Date Allergies Chicken pox Depression Dysmetabolic syndrome X Essential hypertension, benign Hepatitis hepatitis B-1980s Hyperlipidemia Hypothyroidism Obesity CHLOÉ (obstructive sleep apnea) Prostate cancer Renal disease left kidney is swollen 09/19/2020 SOB (shortness of breath) STATES HAS BEEN OUT OF SHAPE THE LAST YEAR WITH COVID AND KNEE PAIN Past Surgical History: Procedure Laterality Date CYSTOURETHROSCOPY W/ URETEROSCOPY/PYELOSCOPY DIAGNOSTIC Left 10/17/2020 Laterality: Left; Surgeon: Bam Lambert MD; Location: [facility] OR CYSTOURETHROSCOPY W/ INSERTION STENT URETER Left 10/17/2020 Laterality: Left; Surgeon: Bam Lambert MD; Location: [facility] OR CYSTOURETHROSCOPY W/ FULGURATION/RESECTION LESION BLADDER (TURB) Left 10/17/2020 Laterality: Left; Surgeon: Bam Lambert MD; Location: [facility] OR CYSTOURETHROSCOPY W/ INTERNAL URETHROTOMY (DVIU) N/A 09/28/2020 Laterality: N/A; Surgeon: Bam Lambert MD; Location: [facility] OR CYSTOURETHROSCOPY W/ INSERTION STENT URETER Left 09/28/2020 Laterality: Left; Surgeon: Bam Lambert MD; Location: [facility] OR EXTRACTION EXTRACAPSULAR CATARACT W/ IMPLANT (ECCE IOL) Bilateral HEART CATHETERIZATION 10-12 years ago KNEE REPLACEMENT Right Social History Socioeconomic History Marital status: Spouse name: Not on file Number of children: Not on file Years of education: Not on file Highest education level: Not on file Occupational History Not on file Tobacco Use Smoking status: Former Smoker Types: Cigarettes Quit date: 1979 Years since quittin.5 Smokeless tobacco: Never Used Vaping Use Vaping Use: Never used Substance and Sexual Activity Alcohol use: Yes Comment: rarely Drug use: No Sexual activity: Not on file Other Topics Concern Not on file Social History Narrative Not on file Social Determinants of Health Financial Resource Strain: Difficulty of Paying Living Expenses: Food Insecurity: Worried About Running Out of Food in the Last Year: Ran Out of Food in the Last Year: Transportation Needs: Lack of Transportation (Medical): Lack of Transportation (Non-Medical): Physical Activity: Days of Exercise per Week: Minutes of Exercise per Session: Stress: Feeling of Stress : Social Connections: Frequency of Communication with Friends and Family: Frequency of Social Gatherings with Friends and Family: Attends [employer] Services: Active Member of Clubs or Organizations: Attends Club or Organization Meetings: Marital Status: Intimate Partner Violence: Fear of Current or Ex-Partner: Emotionally Abused: Physically Abused: Sexually Abused: Physical Exam: Resp 18 Ht 1.803 m (5' 11) Wt 134.7 kg (297 lb) BMI 41.42 kg/m Smoking Status Former Smoker Body mass index is 41.42 kg/m . Constitutional: No acute distress. Cardiovascular: Regular rate and rhythm. Pulmonary: Respirations even and unlabored. Abdomen: Soft, non-tender. No CVA/suprapubic tenderness noted. Musculoskeletal: All major joints are without swelling, erythema, or bony deformity. Normal range of motion of all major joints. Skin: Warm, dry and intact. Neuro: No sensory or motor deficits. Assessment/Plan: 1. Bladder mass 2. Benign non-nodular prostatic hyperplasia with lower urinary tract symptoms 3. Urinary frequency 4. Nocturia 5. Stricture of male urethra, unspecified stricture type Status post TURBT and ureteral stent removal. BMP not completed; he will go today. Urinalysis with moderate blood/large leukocytes. Antibiotics/Antifungals will be initiated, if indicated, once results are obtained. Urine will be sent for molecular testing. PVR 18 ml. He is doing well currently. Follow up in 3 months with repeat ultrasound; encouraged to return sooner for new or worsening symptoms. Patient was advised to call with any questions or concerns. If symptoms worsen patient was advised to follow up in our office or the Emergency Dept. Benefits, Risks, Contraindications, and Complications of recommended treatments were explained the patient understands and agrees to proceed with plan. documented in this [facility]06-24-2021 History of Present illness Narrative* Tari Krishnan - 11/23/2020 2:00 PM EDT Lab Results Component Value Date APPEARANCE clear 11/23/2020 COLOR yellow 11/23/2020 KETONES neg 11/23/2020 SPECIFICGRAV >=1.030 11/23/2020 BLOOD large 11/23/2020 PH 5.0 11/23/2020 PROTEIN 100 mg 11/23/2020 UROBILINOGEN 0.2 11/23/2020 NITRITE neg 11/23/2020 LEUKOCYTE large 11/23/2020 * Tea, Caroline, JAVA FLEX DEVELOPER - 11/23/2020 2:00 PM EDT Nurse Note: Review of Systems Constitutional: Negative. HENT: Negative. Eyes: Negative. Respiratory: Negative. Cardiovascular: Negative. Gastrointestinal: Negative. Endocrine: Negative. Genitourinary: Negative. Musculoskeletal: Negative. Skin: Negative. Allergic/Immunologic: Negative. Neurological: Negative. Hematological: Negative. Psychiatric/Behavioral: Negative. Nursing Assessment: Physical Exam Patient comes to us today for stent removal * Caroline Brumfield LPN - 11/23/2020 2:00 PM EDT Associated Order(s): CYSTOSCOPY Post-Procedure Diagnose(s): Malignant neoplasm of urinary bladder, unspecified site CYSTOSCOPY Date/Time: 11/23/2020 2:00 PM Performed by: Bam Lambert MD Authorized by: Bam Lambert MD A resident (Caroline Brumfield LPN) was present and assisted with the procedure. The attending physician was present for the entire procedure. Pre-Procedure: Indications: bladder cancer Detailed information of all possible complications and side effects were discussed with the patient, these include but not only; UTI, sepsis, hematuria, incontinence, urethral injury and cardiovascular complications. Informed consent was obtained. Does this procedure require a [place] Protocol? Yes. [place] Protocol is required. The patient was not given antibiotics. Urine was collected for testing. Procedure: Procedure performed: cystoscopy and stent removal The patient was placed supine with all pressure points well padded. Patient was prepped and draped in the usual sterile fashion with Betadine. lidocaine 2% topical gel was inserted into urethra for local anesthesia. A penile clamp was not applied. The flexible cystoscope was lubricated and placed into the urethral tract under direct visualization. A 360 survey of the bladder was performed. Findings: The urinary meatus appeared normal. documented in this [facility]06-24-2021 Procedure note* Bam Lambert MD - 11/23/2020 2:00 PM EDT Associated Order(s): GENERAL PROCEDURE Preprocedure diagnosis Bladder tumor Left hydronephrosis Urethral stricture Postprocedure diagnosis Same as above. Procedure Flexible Cystourethroscopy with removal of left ureteral stent Attending surgeon Bam Lambert MD Complications None Indications 75 y.o. male undergoing a flexible cystoscopy for the above mentioned indications. Informed consentwas obtained. Findings Cystoscope was passed into the patients's bladder. The stent was identified and removed without difficulty. The patient tolerated the procedure well. Persistent inflammation and debris noted. Stricture was patent The pathology is negative for malignancy. Today's PVR is 53 cc. Fluconazole extended for 14 days,appropriate use and side effects reviewed. Follow up in 2 weeks with a UA and PVR. [facility] History of Present illness Narrative* Caitlin Mata - 11/01/2020 1:00 PM EDT Lab Results Component Value Date APPEARANCE cloudy 11/01/2020 COLOR yellow 11/01/2020 KETONES neg 11/01/2020 SPECIFICGRAV >1.030 11/01/2020 BLOOD large 11/01/2020 PH 5.5 11/01/2020 PROTEIN 100 11/01/2020 UROBILINOGEN 0.2 11/01/2020 NITRITE neg 11/01/2020 LEUKOCYTE large 11/01/2020 * Tari Krishnan - 11/01/2020 1:00 PM EDT Nurse Note: Review of Systems Constitutional: Negative. HENT: Negative. Eyes: Negative. Respiratory: Negative. Cardiovascular: Negative. Gastrointestinal: Negative. Endocrine: Negative. Genitourinary: Negative. Musculoskeletal: Negative. Skin: Negative. Allergic/Immunologic: Negative. Neurological: Negative. Hematological: Negative. Psychiatric/Behavioral: Negative. Nursing Assessment: Physical Exam Patient is here for path review after sx. States having some improvements in urinary function. * Bam Lambert MD - 11/01/2020 1:00 PM EDT HISTORY OF PRESENT ILLNESS 75 y.o. male known to the urology department with for a history of prostate cancer, voiding dysfunction, bladder mass and Radiation- inducedurethral stricture. Radiation treatments were years ago and recommended by different urologist He is now status post ureteroscopy with a transurethral resection/treatment of medium bladder tumorand pyeloscopy on 10/17/20, he has recovered from the procedure without incident and is feeling well. I am happy to inform him the pathology is negative for malignancy. The recent fungus culture fromthe bladder and kidney, is positive for candid glabrata. He is urinating well with improvement to urinary urgency and frequency. Pathology reviewed. ASSESSMENT AND PLAN 1. Bladder tumor s/p ureteroscopy with transurethral resection - Pathology is benign. He is healingand urinating well at this time. 2. Fungal infection- fluconazole 100 mg prescribed, appropriate use and side effects reviewed. We will consider a referral to infectious disease at the next follow up. 3. Left hydronephrosis, suspect the hydronephrosis due to distal radiation stricture. He may require long-term ureteral stenting. The obstruction at the level of the urethra and the distal ureter is the likely cause of the fungal infections. He is extraordinarily grateful for services provided. He is a very pleasant patient. He also understands that, once stabilized, he may be referred back to his primary urologist for management of long-term radiation complications He will follow up in 3 weeks for a stent removal. 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 Current Outpatient Medications Medication Sig Dispense Refill acetaminophen 500 MG tablet Take 500 mg by mouth every 6 hours as needed for Pain. allopurinol 100 MG tablet Take 1 tablet by mouth 2 times daily. (Patient taking differently: Take 100 mg by mouth daily. ) 60 tablet 11 aspirin EC [address] take 81 mg by mouth daily.. hydroCODone-acetaminophen 5-325 MG tablet Take 1 tablet by mouth every 4 hours as needed for up to 2 days. 12 tablet 0 ibuprofen 400 MG tablet Take 400 mg by mouth every 6 hours as needed. levothyroxine 88 MCG tablet Take 1 tablet by mouth daily. 30 tablet 1 lisinopril (ZESTRIL) 20 MG Tab Take 1 tablet by mouth daily. 90 tablet 3 multivitamin tablet Take 1 tablet by mouth daily. oxybutynin 5 MG tablet Take 1 tablet by mouth 3 times daily as needed (bladder spasm/urinary frequency). 30 tablet 1 Probiotic Product (PROBIOTIC PO) Take by mouth daily. Tamsulosin HCl 0.4 MG Cap capsule Take 1 capsule by mouth at bedtime. 30 capsule 0 No current facility-administered medications for this visit. family history includes Alzheimer's in his father; Aneurysm in his mother; Clotting Disorder in hismaternal grandfather; Hypertension in his mother. Past Medical History: Diagnosis Date Allergies Chicken pox Depression Dysmetabolic syndrome X Essential hypertension, benign Hepatitis hepatitis B-1980s Hyperlipidemia Hypothyroidism Obesity CHLOÉ (obstructive sleep apnea) Prostate cancer Renal disease left kidney is swollen 09/19/2020 SOB (shortness of breath) STATES HAS BEEN OUT OF SHAPE THE LAST YEAR WITH COVID AND KNEE PAIN Past Surgical History: Procedure Laterality Date CYSTOURETHROSCOPY W/ URETEROSCOPY/PYELOSCOPY DIAGNOSTIC Left 10/17/2020 Laterality: Left; Surgeon: Bam Lambert MD; Location: [facility] OR CYSTOURETHROSCOPY W/ INSERTION STENT URETER Left 10/17/2020 Laterality: Left; Surgeon: Bam Lambert MD; Location: [facility] OR CYSTOURETHROSCOPY W/ FULGURATION/RESECTION LESION BLADDER (TURB) Left 10/17/2020 Laterality: Left; Surgeon: Bam Lambert MD; Location: [facility] OR CYSTOURETHROSCOPY W/ INTERNAL URETHROTOMY (DVIU) N/A 09/28/2020 Laterality: N/A; Surgeon: Bam Lambert MD; Location: [facility] CYSTOURETHROSCOPY W/ INSERTION STENT URETER Left 09/28/2020 Laterality: Left; Surgeon: Bam Lambert MD; Location: [facility] OR EXTRACTION EXTRACAPSULAR CATARACT W/ IMPLANT (ECCE IOL) Bilateral HEART CATHETERIZATION 10-12 years ago KNEE REPLACEMENT Right Social History Tobacco Use Smoking Status Former Smoker Types: Cigarettes Quit date: 1979 Years since quittin.4 Smokeless Tobacco Never Used Social History Substance and Sexual Activity Alcohol Use Yes Comment: rarely Physical Examination: Vital Signs: Smoking Status Former Smoker Constitutional: Oriented to person, place, and time. Appears well developed and well nourished. Eyes: conjunctiva/corneas clear, normal vision Ears/Nose/Mouth Eyes -EOMI. Ears - External normal ear. Hearing normal. Mouth - Lips normal color. Head/Neck: Face symmetrical, trachea midline, Head - Normocephalic. symmetrical. Normal ROM, neck supple. Pulmonary/chest: Normal respiratory effort, non-labored breathing. Abdominal/GI: Soft, non-tender, no organomegaly. Bowel sounds normal. Cardiovascular Normal rate and regular rhythm. No Murmurs or Rubs. Radial Pulses Normal. Circulation Normal. Neurologic: Alert and oriented x3. No focal neurological deficits noted. Extremities: No clubbing, cyanosis, or edema noted, no calf tenderness bilaterally. Skin: Warm and dry.Normal turgor, well-hydrated, no rashes noted. Psych: Normal mood and affect. Behavior is normal. documented in this [facility]05-20-2021 History of Present illness Narrative* Caroline Barahona - 10/19/2020 10:00 AM EDT Patient came in today for a TOV. Patient had a 22 Fr jamison. Irrigated the bladder with 250 mL of sterile water. Patient said it was burning and in pain. The pain did come and go. Deflated the balloonand balloon was intact. Patient voided 130 ml of urine on their own.Patient was instructed to drinkplenty of water. He tried to urinate for over an hour. Patient understood everything told him if hecan not urinate he needs to go to the ER. Tolerated Well. documented in this [facility]05-18-2021 Miscellaneous Notes* Nursing Notes - Shanae Alamo RN - 10/17/2020 2:04 PM EDT Assisted with dressing. Tolerated well. * Nursing Notes - Shanae Alamo RN - 10/17/2020 1:55 PM EDT Written and verbal discharge instructions given. Visitor at bedside. Voices understanding. * Nursing Notes - Shanae Alamo RN - 10/17/2020 12:59 PM EDT Drinking water. Eating snack * Op Note - Bam Lambert MD - 10/17/2020 11:47 AM EDT DATE: 10/17/2020 Patient: Genet Booth Pre-Op Dx: Bladder tumor Left hydronephrosis Urethral stricture Post-Op Dx: Same Procedure: 1. left diagnostic ureteroscopy (57792) 2. Cystoscopy with left ureteral stent placement (94415) 3. Transurethral resection/treatment of medium bladder tumor measuring 2.0-5.0 cm (10222) 4. Interpretation of retrograde pyelogram (57881) Surgeon: Surgeon(s) and Role: * Bam Lambert MD - Primary Anesthesia: General COMPLICATIONS: None. BLOOD LOSS: Minimal PROCEDURE : Patient was introduced into the operating room and placed in dorsal lithotomy position. Patient wassterilely prepped and draped in the standard fashion. Timeout was performed A rigid cystoscope was passed into the patient's bladder. The bladder was inspected. Multifocal stricture was seen in the penile urethra, and bulbar urethra. This had been nicely dilated with the previous procedure and the catheter. Inspection of the bladder revealed friable erythematous tissue along the entire left lateral wall, the remainder of the bladder showed trabeculation but no obvious tumor or inflammation. Right retrograde pyelograms were performed using a 5 Syrian open-ended catheter. The ureter and collecting systems outlined uniformly without filling defects or hydronephrosis. The right pyelogram was normal. I passed a Glidewire into the left kidney under fluoroscopic guidance. I then removed the left ureteral stent. I then performed a diagnostic ureteroscopy using a flexible ureteroscope. Copiou s turbid urine was seen in the left kidney. Multiple samples of this urine was retrieved and sent for bacterial culture, fungal culture, and urine cytology. Inspection of every calyx showed friable tissue throughout but no obvious tumor. I inspected the entire ureter upon withdrawal of the scope, blanched ureter mucosa and radiation-induced stricture was seen in the distal ureter, likely accounting for the hydronephrosis of the left kidney. I now placed a 6 Syrian variable length stent in the left kidney in the standard fashion. I then introduced a 26 Syrian continuous flow resectoscope and resected the bladder tumor on the left lateral wall. Depth of resection was the muscularis propria. I cauterized the entire tumor base and mucosal edges. The entire treated area measured approximately 3 cm. All tumor chips were evacuated and sent for pathologic examination. A Jamison catheter was placed in the patient's bladder with clear urine return. The procedure was then terminated. The patient tolerated procedure well. Salient feature the case include persistent infection, fungal versus bacterial, of the left kidney with diffuse friable tissue, and left distal ureteral stricture. The patient will follow up for a voiding trial and then a pathology review. He may require long-term stenting of the left kidney if no tumor is identified. COMPLICATIONS: None. BLOOD LOSS: Minimal Bam Lambert MD * Brief Op Note - Bam Lambert MD - 10/17/2020 11:46 AM EDT Please see immediate operative note. documented in this [facility]05-18-2021 Hospital Discharge instructions* Instructions* Sharmila Espinoza CNP - 10/17/2020 You can resume aspirin in 48 hours * Attachments The following attachments cannot be sent through Care Everywhere. * Ureteral Stent Placement: Post-op (Honduran) * Transurethral Resection of the Bladder: General Info (Honduran) documented in this [facility]05-18-2021 Nurse Note* Didi Redman RN - 10/17/2020 12:10 PM EDT Report to Jono Alamo RN. * Didi Redman RN - 10/17/2020 11:59 AM EDT Discharged per stretcher to outpatient room 11 in stable condition and without complaints. Call light in reach. Pulse ox on; alarms/volume on. Stretcher in lowest position and brake on. * Didi Redman RN - 10/17/2020 11:40 AM EDT Denies nausea. States is warm enough. Demonstrates ability to deep breathe/cough effectively. * Janet Varela RN - 10/17/2020 11:39 AM EDT 1139 Transported to PACU [place] [facility] per MIKERN and BG,CRIB PAD MAKER. Monitors applied. Report given to KAREN MENDEZ documented in this [facility]05-18-2021 History and physical note* Sharmila Espinoza CNP - 10/17/2020 7:14 AM EDT HISTORY OF PRESENT ILLNESS 75 y.o. male known to the urology department with for a history of prostate cancer, voiding dysfunction, bladder mass and Radiation- induced urethral stricture. He is now status post urethrotomy with left stent placement on 09/28/20, he has recovered from the procedure without incident and feels well. The recent urine culture was positive for morganella morgnaii. Urine culture and urine cytology reviewed. ASSESSMENT AND PLAN 1. Ureteral stricture with UTI- Levoquin prescribed 10/12/20. He was able to urinate volitionally. 2. Bladder mass- We discussed management options for bladder tumor. I recommend resection under anesthesia. Risks were reviewed in detail, including but not limited to pain, bleeding, infection, Bladder perforation,urethral catheterization, ureteral stent placement, Need for staged procedures. Today he was scheduled for TURBT, diagnostic ureteroscopy,stent placement. 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 No current facility-administered medications for this encounter. family history includes Alzheimer's in his father; Aneurysm in his mother; Clotting Disorder in hismaternal grandfather; Hypertension in his mother. Past Medical History: Diagnosis Date Allergies Chicken pox Depression Dysmetabolic syndrome X Essential hypertension, benign Hepatitis hepatitis B-1980s Hyperlipidemia Hypothyroidism Obesity CHLOÉ (obstructive sleep apnea) Prostate cancer Renal disease left kidney is swollen 09/19/2020 SOB (shortness of breath) STATES HAS BEEN OUT OF SHAPE THE LAST YEAR WITH COVID AND KNEE PAIN Past Surgical History: Procedure Laterality Date CYSTOURETHROSCOPY W/ INTERNAL URETHROTOMY (DVIU) N/A 09/28/2020 Laterality: N/A; Surgeon: Bam Lambert MD; Location: [facility] OR CYSTOURETHROSCOPY W/ INSERTION STENT URETER Left 09/28/2020 Laterality: Left; Surgeon: Bam Lambert MD; Location: [facility] OR EXTRACTION EXTRACAPSULAR CATARACT W/ IMPLANT (ECCE IOL) Bilateral HEART CATHETERIZATION 10-12 years ago KNEE REPLACEMENT Right Social History Tobacco Use Smoking Status Former Smoker Types: Cigarettes Quit date: 1979 Years since quittin.4 Smokeless Tobacco Never Used Social History Substance and Sexual Activity Alcohol Use Yes Comment: rarely Physical Examination: Vital Signs: Smoking Status Former Smoker Constitutional: Oriented to person, place, and time. Appears well developed and well nourished. Eyes: conjunctiva/corneas clear, normal vision Ears/Nose/Mouth Eyes -EOMI. Ears - External normal ear. Hearing normal. Mouth - Lips normal color. Head/Neck: Face symmetrical, trachea midline, Head - Normocephalic. symmetrical. Normal ROM, neck supple. Pulmonary/chest: Normal respiratory effort, non-labored breathing. Abdominal/GI: Soft, non-tender, no organomegaly. Bowel sounds normal. Cardiovascular Normal rate and regular rhythm. No Murmurs or Rubs. Radial Pulses Normal. Circulation Normal. Neurologic: Alert and oriented x3. No focal neurological deficits noted. Extremities: No clubbing, cyanosis, or edema noted, no calf tenderness bilaterally. Skin: Warm and dry.Normal turgor, well-hydrated, no rashes noted. Psych: Normal mood and affect. Behavior is normal. documented in this [facility]05-13-2021 History of Present illness Narrative* Caroline Brumfield LPN - 10/12/2020 12:00 PM EDT 18fr jamison irrigated with 120ml sterile water. Patient states he is in pain and wants the jamison removed. Jamison removed and patients voided 75ml of urine on own. Tolerated well * Caroline Barahona - 10/12/2020 12:00 PM EDT Nurse Note: Review of Systems Constitutional: Negative. HENT: Negative. Eyes: Negative. Respiratory: Negative. Cardiovascular: Negative. Gastrointestinal: Negative. Endocrine: Negative. Genitourinary: Negative. Musculoskeletal: Negative. Skin: Negative. Allergic/Immunologic: Negative. Neurological: Negative. Hematological: Negative. Psychiatric/Behavioral: Negative. Nursing Assessment: Physical Exam Post op visit urethrotomy. Has cath. * Bam Lambert MD - 10/12/2020 12:00 PM EDT HISTORY OF PRESENT ILLNESS 75 y.o. male known to the urology department with for a history of prostate cancer, voiding dysfunction, bladder mass and Radiation- inducedurethral stricture. He is now status post urethrotomy With left stent placementon 09/28/20, he has recovered from the procedure without incident and feels well. The recent urine culture was positive for morganella morgnaii. He completed a 2 week course of Cipro today. He currently has a jamison catheter. Urine culture and urine cytology reviewed. ASSESSMENT AND PLAN 1. Ureteral stricture with UTI- Cipro refilled today. The catheter will be removed today with a trail of void. He was able to urinate volitionally. 2. Bladder mass- We discussed management options for bladder tumor. I recommend resection under anesthesia. Risks were reviewed in detail, including but not limited to pain, bleeding, infection, Bladder perforation,urethral catheterization, ureteral stent placement, Need for staged procedures. Today she was scheduled for TURBT, diagnostic ureteroscopy,stent placement. 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 Current Outpatient Medications Medication Sig Dispense Refill acetaminophen 500 MG tablet Take 500 mg by mouth every 6 hours as needed for Pain. allopurinol 100 MG tablet Take 1 tablet by mouth 2 times daily. 60 tablet 11 aspirin EC [address] take 81 mg by mouth daily.. ciprofloxacin 500 MG tablet Take 1 tablet by mouth daily for 14 days. 14 tablet 0 hydroCODone-acetaminophen 5-325 MG tablet Take 1 tablet by mouth every 4 hours as needed for up to 2 days. 12 tablet 0 ibuprofen 400 MG tablet Take 400 mg by mouth every 6 hours as needed. levothyroxine 88 MCG tablet Take 1 tablet by mouth daily. (Patient taking differently: Take 88 mcg by mouth daily. am) 30 tablet 1 lisinopril (ZESTRIL) 20 MG Tab Take 1 tablet by mouth daily. 90 tablet 3 multivitamin tablet Take 1 tablet by mouth daily. oxybutynin 5 MG tablet Take 1 tablet by mouth 3 times daily as needed (bladder spasm/urinary frequency). 30 tablet 1 phenazopyridine 100 MG tablet Take 1 tablet by mouth 2 times daily for 3 days. 6 tablet 0 Probiotic Product (PROBIOTIC PO) Take by mouth daily. sulfamethoxazole-trimethoprim 800-160 MG per tablet Take 1 tablet by mouth daily for 7 days. 7 tablet 0 Tamsulosin HCl 0.4 MG Cap capsule Take 1 capsule by mouth at bedtime. (Patient not taking: Reportedon 08/21/2020) 30 capsule 0 No current facility-administered medications for this visit. family history includes Alzheimer's in his father; Aneurysm in his mother; Clotting Disorder in hismaternal grandfather; Hypertension in his mother. Past Medical History: Diagnosis Date Allergies Chicken pox Depression Dysmetabolic syndrome X Essential hypertension, benign Hepatitis hepatitis B-1980s Hyperlipidemia Hypothyroidism CHLOÉ (obstructive sleep apnea) Prostate cancer Renal disease left kidney is swollen 09/19/2020 Past Surgical History: Procedure Laterality Date CYSTOURETHROSCOPY W/ INTERNAL URETHROTOMY (DVIU) N/A 09/28/2020 Laterality: N/A; Surgeon: Bam Lambert MD; Location: [facility] OR CYSTOURETHROSCOPY W/ INSERTION STENT URETER Left 09/28/2020 Laterality: Left; Surgeon: Bam Lambert MD; Location: [facility] OR EXTRACTION EXTRACAPSULAR CATARACT W/ IMPLANT (ECCE IOL) Bilateral HEART CATHETERIZATION 10-12 years ago KNEE REPLACEMENT Right Social History Tobacco Use Smoking Status Former Smoker Types: Cigarettes Quit date: 1979 Years since quittin.3 Smokeless Tobacco Never Used Social History Substance and Sexual Activity Alcohol Use Yes Comment: rarely Physical Examination: Vital Signs: Smoking Status Former Smoker Constitutional: Oriented to person, place, and time. Appears well developed and well nourished. Eyes: conjunctiva/corneas clear, normal vision Ears/Nose/Mouth Eyes -EOMI. Ears - External normal ear. Hearing normal. Mouth - Lips normal color. Head/Neck: Face symmetrical, trachea midline, Head - Normocephalic. symmetrical. Normal ROM, neck supple. Pulmonary/chest: Normal respiratory effort, non-labored breathing. Abdominal/GI: Soft, non-tender, no organomegaly. Bowel sounds normal. Cardiovascular Normal rate and regular rhythm. No Murmurs or Rubs. Radial Pulses Normal. Circulation Normal. Neurologic: Alert and oriented x3. No focal neurological deficits noted. Extremities: No clubbing, cyanosis, or edema noted, no calf tenderness bilaterally. Skin: Warm and dry.Normal turgor, well-hydrated, no rashes noted. Psych: Normal mood and affect. Behavior is normal. documented in this [facility]04-29-2021 Hospital Discharge instructions* Instructions* Sharmila Espinoza CNP - 09/28/2020 Resume Aspirin in 48 hours. Anesthesia Precautions & Expectations: After anesthesia, rest for [address], drink alcoholic beverages or make any important decisions during this time. General anesthesia may cause a sore throat, jaw discomfort or muscle aches. These symptoms can last for one or two days. * Attachments The following attachments cannot be sent through Care Everywhere. * Hydronephrosis: General Info (Honduran) * Ureteroscopy: Pre-op (Honduran) documented in this [facility]04-29-2021 Nurse Note* Jennie Florian RN - 09/28/2020 10:53 AM EDT KAREN Dorantes reviewed discharge instructions with patient and his caregiver. * Jennie Florian RN - 09/28/2020 10:[address] Lambert in room to talk to patient. * Jennie Florian RN - 09/28/2020 10:38 AM EDT Patient assisted to chair and assisted with putting clothes on with jamison cath. Patient does not want leg bag. States that he is not going anywhere so he does not need leg bag. Patient and his assurance services manager health care educated on emptying jamison cath, understanding stated. * Karyn Medina RN - 09/28/2020 9:37 AM EDT Patient transported to PACU via cart with this RN and [employer] PAD [employer]ER. Report given to KAREN Rodrigez. * Karyn Medina RN - 09/28/2020 9:12 AM EDT OR room temp: 61 deg F OR room humidity: 64% documented in this [facility]04-29-2021 Miscellaneous Notes* Nursing Notes - Elia Herrera RN - 09/28/2020 10:07 AM EDT Discharged from PACU in stable condition at this time. Transported via cart to [facility]. Cart placed in lowest position. Call light within reach. Pulse ox monitor on pt with alarms set. Report givento Karen Schneider. * Op Note - Bam Lambert MD - 09/28/2020 9:33 AM EDT DATE: 09/28/2020 Patient: Genet Booth Pre-Op Dx: Urethral stricture [N35.919] Bladder tumor [D49.4] Hydronephrosis [N13.30] Post-Op Dx: Urethral stricture [N35.919] Bladder tumor [D49.4] Hydronephrosis [N13.30] Procedure: 1. Cystoscopy with direct vision internal urethrotomy 2. Cystoscopy with left ureteral stent placement Surgeon: Surgeon(s) and Role: * Bam Lambert MD - Primary Anesthesia: General COMPLICATIONS: None. BLOOD LOSS: Minimal PROCEDURE : Patient was introduced into the operating room and placed in dorsal lithotomy position. Patient wassterilely prepped and draped in the standard fashion. Timeout was performed [place]-urethral stricture noted with a pinpoint stricture noted at the bulbar urethra. A glidewire waspassed through the stricture into the bladder. The stricture was then sequentially dilated over thewire. I then passed the DVIU scope into the urethra and incised the residual stricture at 12 oclock. I then passed the scope into the bladder. The urine was extremely turbid and the entire bladder was inflamed. A urine sample was obtained and sent for culture. I could not identify the right ureteral orifice due to extensive inflammation and urine turbidity. I was able to perform a left retrograde pyelogram showing moderate hydronephrosis. A stent was placed in the left kidney in the standard fashion. Appropriately positioned proximal and distal coils confirmed. Copious pus was seen emanating from the stent. I then passed a 20fr [place] tip catheter over the wire into the bladder. The procedure was then terminated. The patient tolerated the procedure well Salient features of the case include a dense urethral stricture, a heavily inflamed and possibly infected bladder. Therefore extensive manipulation and ureteroscopy was contraindicated. He will be treated with broad spectrum antibiotics and we will review cultures when available. He will need a second stage procedure after infection has resolved. Uncertain if he has significant tumor of the bladder or if he has diffuse inflammation due to infection. Bam Lambert MD * Brief Op Note - Bam Lambert MD - 09/28/2020 9:33 AM EDT Please see immediate operative note. [facility] History and physical note* Sharmila Espinoza CNP - 09/28/2020 6:34 AM EDT HISTORY OF PRESENT ILLNESS 75 y.o. male known to the urology office for hematuria, UTI's, and a bladder mass. He reports a history of prostate cancer with external beam radiation treatments with a former urologist 6-7 years ago. The recent renal ultrasound shows suspicious findings for a 1.6 cm urothelial mass of the bladder and mild to moderate left-sided hydronephrosis. He confirms a family history of bladder cancer. He reports urinary frequency, weak stream, urgency and nocturia. Recent cystoscopy reveals a bulbar urethral stricture. ASSESSMENT AND PLAN 1. Urethral stricture- I recommend cystoscopy with urethral dilation, direct vision internal urethrotomy.We discussed risk and benefits of the surgery, including not limited to pain, bleeding, infection, incontinence, stricture recurrence. Surgery is scheduled for today. 2. Bladder tumor with hydronephrosis. Recommend transrectal resection of bladder tumor, as well as bilateral diagnostic ureteroscopy and possible bilateral stent placement.. Risks and benefits reviewed in great detail.surgery scheduled today. He will stop the aspirin and vitamins 1 week prior to the procedure. 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 Current Facility-Administered Medications Medication Dose Route Frequency Provider Last Rate Last Admin ceFAZolin (ANCEF) 2 g in dextrose 100 mL premix IVPB 2 g Intravenous 60 MIN pre- op Gifty Landrum CNP sodium chloride 0.9% IV solution 100 mL/hr Intravenous Continuous Gifty Landrum CNP family history includes Alzheimer's in his father; Aneurysm in his mother; Clotting Disorder in hismaternal grandfather; Hypertension in his mother. Past Medical History: Diagnosis Date Allergies Chicken pox Depression Dysmetabolic syndrome X Essential hypertension, benign Hepatitis hepatitis B-1980s Hyperlipidemia Hypothyroidism CHLOÉ (obstructive sleep apnea) Prostate cancer Renal disease left kidney is swollen 09/19/2020 Past Surgical History: Procedure Laterality Date EXTRACTION EXTRACAPSULAR CATARACT W/ IMPLANT (ECCE IOL) Bilateral HEART CATHETERIZATION 10-12 years ago KNEE REPLACEMENT Right Social History Tobacco Use Smoking Status Former Smoker Types: Cigarettes Quit date: 1979 Years since quittin.3 Smokeless Tobacco Never Used Social History Substance and Sexual Activity Alcohol Use Yes Comment: rarely Physical Examination: Vital Signs: Smoking Status Former Smoker Constitutional: Oriented to person, place, and time. Appears well developed and well nourished. Eyes: conjunctiva/corneas clear, normal vision Ears/Nose/Mouth Eyes -EOMI. Ears - External normal ear. Hearing normal. Mouth - Lips normal color. Head/Neck: Face symmetrical, trachea midline, Head - Normocephalic. symmetrical. Normal ROM, neck supple. Pulmonary/chest: Normal respiratory effort, non-labored breathing. Abdominal/GI: Soft, non-tender, no organomegaly. Bowel sounds normal. Cardiovascular Normal rate and regular rhythm. No Murmurs or Rubs. Radial Pulses Normal. Circulation Normal. Neurologic: Alert and oriented x3. No focal neurological deficits noted. Extremities: No clubbing, cyanosis, or edema noted, no calf tenderness bilaterally. Skin: Warm and dry.Normal turgor, well-hydrated, no rashes noted. Psych: Normal mood and affect. Behavior is normal. documented in this [facility]04-16-2021 History of Present illness Narrative* Bam Lambert MD - 09/15/2020 10:00 AM EDT HISTORY OF PRESENT ILLNESS 75 y.o. male underwent cystoscopy and transrectal ultrasound in the office today for hematuria and UTI's. The results of the cystoscopy were reviewed with the patient and the perioperative instructions were given. We then engaged in a separate consultation. He continues to have hematuria, difficulty urinating. Iperformed an independent interpretation of the CT scan, which shows left hydronephrosis, bladder wall thickening, and possible bladder tumor. ASSESSMENT AND PLAN 1. Urethral stricture- We then engaged in a separate consultation to further discuss treatment options. I recommend cystoscopy with urethral dilation, direct vision internal urethrotomy.We discussed risk and benefits of the surgery, including not limited to pain, bleeding, infection, incontinence, stricture recurrence. 2. Bladder tumor with hydronephrosis. Recommend transrectal resection of bladder tumor, as well as bilateral diagnostic ureteroscopy and possible bilateral stent placement.. Risks and benefits reviewed in great detail.surgery scheduled today. He will stop the aspirin and vitamins 1 week prior to the procedure. 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 Current Outpatient Medications Medication Sig Dispense Refill acetaminophen 500 MG tablet Take 500 mg by mouth every 6 hours as needed for Pain. allopurinol 100 MG tablet Take 1 tablet by mouth 2 times daily. 60 tablet 11 aspirin EC [address] take 81 mg by mouth daily.. colchicine (Colcrys) 0.6 MG tablet Take 1 tablet by mouth daily. Take 2 tablets by mouth at onset of gout take 1 tablet 1 hour later 1 tablet twice daily until gout subsides. (Patient not taking: Reported on 08/21/2020) 30 tablet 0 colchicine 0.6 MG tablet Take 2 tablets at onset of gout; then 1 tablet 1 hour later; then 1 tab twice daily until gout subsides (Patient not taking: Reported on 08/21/2020) 60 tablet 2 ibuprofen 400 MG tablet Take 400 mg by mouth every 6 hours as needed. levothyroxine 88 MCG tablet Take 1 tablet by mouth daily. 30 tablet 1 lisinopril (ZESTRIL) 20 MG Tab Take 1 tablet by mouth daily. (Patient not taking: Reported on 08/21/2020) 90 tablet 3 multivitamin tablet Take 1 tablet by mouth daily. sulfamethoxazole-trimethoprim 800-160 MG Tab per tablet Take 1 tablet by mouth 2 times daily. (Patient not taking: Reported on 08/21/2020) 20 tablet 0 Tamsulosin HCl 0.4 MG Cap capsule Take 1 capsule by mouth at bedtime. (Patient not taking: Reportedon 08/21/2020) 30 capsule 0 Tamsulosin HCl 0.4 MG capsule Take 1 capsule by mouth daily. 90 capsule 3 trimethoprim 100 MG tablet Take 1 tablet by mouth daily. 30 tablet 5 No current facility-administered medications for this visit. family history includes Alzheimer's in his father; Aneurysm in his mother; Hypertension in his mother. Past Medical History: Diagnosis Date Chicken pox Depression Dysmetabolic syndrome X Essential hypertension, benign Hyperlipidemia Hypothyroidism CHLOÉ (obstructive sleep apnea) Prostate cancer Past Surgical History: Procedure Laterality Date KNEE REPLACEMENT Right Social History Tobacco Use Smoking Status Former Smoker Types: Cigarettes Smokeless Tobacco Never Used Social History Substance and Sexual Activity Alcohol Use Yes Comment: rarely Physical Examination: Vital Signs: Resp 20 Ht 1.803 m (5' 11) Wt 133.4 kg (294 lb) BMI 41.00 kg/m Smoking Status Former Smoker Constitutional: Oriented to person, place, and time. Appears well developed and well nourished. Eyes: conjunctiva/corneas clear, normal vision Ears/Nose/Mouth Eyes -EOMI. Ears - External normal ear. Hearing normal. Mouth - Lips normal color. Head/Neck: Face symmetrical, trachea midline, Head - Normocephalic. symmetrical. Normal ROM, neck supple. Pulmonary/chest: Normal respiratory effort, non-labored breathing. Abdominal/GI: Soft, non-tender, no organomegaly. Bowel sounds normal. Cardiovascular Normal rate and regular rhythm. No Murmurs or Rubs. Radial Pulses Normal. Circulation Normal. Neurologic: Alert and oriented x3. No focal neurological deficits noted. Extremities: No clubbing, cyanosis, or edema noted, no calf tenderness bilaterally. Skin: Warm and dry.Normal turgor, well-hydrated, no rashes noted. Psych: Normal mood and affect. Behavior is normal. * ChantellvíctorMaite - 09/15/2020 10:00 AM EDT Associated Order(s): CYSTOSCOPY; TRANSRECTAL ULTRASOUND Post-Procedure Diagnose(s): Urinary tract infection without hematuria, site unspecified CYSTOSCOPY Date/Time: 09/15/2020 10:00 AM Performed by: Bam Lambert MD Authorized by: Bam Lambert MD The attending physician was present for the entire procedure. Pre-Procedure: Indications: recurrent UTIs Detailed information of all possible complications and side effects were discussed with the patient, these include but not only; UTI, sepsis, hematuria, incontinence, urethral injury and cardiovascular complications. Informed consent was obtained. Does this procedure require a [place] Protocol? Yes. [place] Protocol is required. The patient was given one dose of antibiotics. Urine was collected for testing. Urine dip positive for blood and positive for leukocyte esterase. Negative for nitrates. Procedure: Procedure performed: cystoscopy The patient was placed supine with all pressure points well padded. Patient was prepped and draped in the usual sterile fashion with Betadine. lidocaine 2% topical gel was inserted into urethra for local anesthesia. A penile clamp was not applied. The flexible cystoscope was lubricated and placed into the urethral tract under direct visualization. A 360 survey of the bladder was performed. Findings: The urinary meatus appeared normal. TRANSRECTAL ULTRASOUND Date/Time: 09/15/2020 10:00 AM Performed by: Bam Lambert MD Authorized by: Bam Lambert MD The attending physician was present for the entire procedure. Pre-Procedure Details: Indications: abnormal digital rectal exam After discussing his options the patient decided to proceed with prostate ultrasound only. Possiblecomplications, risks and benefits were discussed with the patient and consent was obtained. Does this procedure require a [place] Protocol? Yes, final verifications complete. Procedure Details: The patient was placed in the left lateral position with lower extremities flexed and the area was prepped. 2% lidocaine jelly was injected per rectum. A digital rectal exam was performed which was * Maite Valenzuela - 09/15/2020 10:00 AM EDT Nurse Note: Review of Systems Genitourinary: Positive for difficulty urinating, frequency and urgency. Negative for hematuria andpenile pain. All other systems reviewed and are negative. Nursing Assessment: Physical Exam Patient comes today for Cysto/TRUS Lab Results Component Value Date APPEARANCE cloudy 09/15/2020 COLOR yellow 09/15/2020 KETONES TRACE 09/15/2020 SPECIFICGRAV 1.015 09/15/2020 BLOOD LARGE 09/15/2020 PH 7.5 (A) 09/15/2020 PROTEIN neg 09/15/2020 UROBILINOGEN 0.2 09/15/2020 NITRITE neg 09/15/2020 LEUKOCYTE LARGE 09/15/2020 documented in this [facility]04-16-2021 Miscellaneous Notes* Addendum Note - Ketan Varela - 09/15/2020 10:00 AM EDT Addended by: KETAN VARELA on: 09/15/2020 01:21 PM Modules accepted: Orders documented in this [facility]04-16-2021 Procedure note* Bam Lambert MD - 09/15/2020 10:00 AM EDT Associated Order(s): UROLOGY CYSTOSCOPY; TRANSRECTAL ULTRASOUND Procedure(s): UROLOGY CYSTOSCOPY; TRANSRECTAL ULTRASOUND DATE: 09/12/2020 Patient: Genet Booth Pre-Op Dx: BPH with obstruction and bladder mass Post-Op Dx: Same as above Procedure: Flexible Cystourethroscopy Transrectal ultrasound Interpretation of transrectal ultrasound Attending Surgeon: Bam Lambert MD Anesthesia: Local COMPLICATIONS: None BLOOD LOSS: Minimal INDICATIONS: 75 y.o. male undergoing a flexible cystoscopy and transrectal ultrasound for the above mentioned indications. Informed consent was obtained. FINDINGS: Bulbar urethral stricture identified, through which the scope would not pass. Bam Lambert MD documented in this [facility]03-22-2021 History of Present illness Narrative* Ata Hernandez DO - 08/21/2020 2:45 PM EDT History of Present Illness Chief Complaint Patient presents with Urinary Frequency Pt. is here today d/t painful urination and urinary frequency that started last Summer. Waking up often at night to go. Slow flow urination as well. Pt. has been taking Tylenol for the pain. Pt. drinks maybe a quart of water a day. Pt. drinks Dt. Pepsi with each meal. Knee Pain Pt. has left knee pain that he was originally scheduled to have a consultation for surgery with , but got canceled by [facility] and he hasn't heard back from their office since. This was backin July of last year. Pt. is taking Tylenol for pain. Walking makes the pain worse. Sleep Apnea Pt. ordered new CPAP supplies, last Spring, but he received a large bill and was informed that the medical supply was no longer in his network, so he stopped using his CPAP at that time bc he could not afford it. Pt. is struggling with SOB, weakness, and fatigued since not using it. Especially withexertion. Pt. does not use oxygen. Gas Pt. has been struggling with increased gas since last Summer. Pt. unable to travel because of flatulence. Feels sometimes like he is going to float away. Pt. hasn't tried anything for the gas. Review of Systems Constitutional: Negative for activity change, chills and fever. HENT: Negative for dental problem, ear pain, mouth sores, sinus pain and trouble swallowing. Eyes: Negative for discharge and visual disturbance. Respiratory: Negative for chest tightness, shortness of breath and wheezing. Cardiovascular: Negative for chest pain, palpitations and leg swelling. Gastrointestinal: Positive for abdominal pain (gas). Negative for nausea. Endocrine: Negative for polydipsia, polyphagia and polyuria. Genitourinary: Positive for difficulty urinating, frequency and urgency. Negative for flank pain. Musculoskeletal: Positive for arthralgias. Negative for back pain, myalgias and neck pain. Skin: Negative for color change and rash. Neurological: Negative for dizziness, syncope and light-headedness. Psychiatric/Behavioral: Positive for sleep disturbance. Negative for decreased concentration. All other systems reviewed and are negative. Vitals: Blood pressure 140/72, pulse 66, temperature 98.8 F (37.1 C), temperature source Temporal, resp. rate 18, height 1.803 m (5' 11), weight 133.6 kg (294 lb 9.6 oz), SpO2 94 %. Physical Exam Vitals and nursing note reviewed. Constitutional: Appearance: He is well-developed. HENT: Right Ear: External ear normal. Left Ear: External ear normal. Eyes: Conjunctiva/sclera: Conjunctivae normal. Pupils: Pupils are equal, round, and reactive to light. Cardiovascular: Rate and Rhythm: Normal rate and regular rhythm. Heart sounds: Normal heart sounds. No murmur. No friction rub. No gallop. Pulmonary: Effort: Pulmonary effort is normal. No respiratory distress. Breath sounds: Normal breath sounds. Abdominal: General: Bowel sounds are normal. There is no distension. Palpations: Abdomen is soft. Tenderness: There is no abdominal tenderness. Musculoskeletal: General: Normal range of motion. Cervical back: Normal range of motion. Skin: General: Skin is warm and dry. Coloration: Skin is not jaundiced. Findings: No erythema or rash. Neurological: Mental Status: He is alert and oriented to person, place, and time. Deep Tendon Reflexes: Reflexes are normal and symmetric. Psychiatric: Mood and Affect: Mood normal. Behavior: Behavior normal. Judgment: Judgment normal. Neurologic Exam Mental Status Oriented to person, place, and time. Cranial Nerves CN III, IV, Pupils are equal, round, and reactive to light. Assessment and Plan ICD-10-CM 1. Acute urinary tract infection N39.0 nitrofurantoin, macrocrystal-monohydrate, 100 MG capsule URIC ACID 2. Decreased exercise tolerance R68.89 NUC MYOCARD PERF STRESS [facility] 3. Primary osteoarthritis of both knees M17.0 4. History of gout Z87.39 5. Chronic fatigue R53.82 CBC, EDIF, PLATELET COMPREHENSIVE METABOLIC PANEL LIPID PANEL W CALCULATED LDL TSH W/FT4 REFLEX 6. Screening PSA (prostate specific antigen) Z12.5 PSA, SCREENING 7. Shortness of breath on exertion R06.02 NUC MYOCARD PERF STRESS [facility] Begin Macrobid 100 mg twice daily x 10 days to treat urinary infection. Says due to covid virus last year, he has spent more time at home and has been more inactive. Notices more shortness of breath when up exerting himself. He is able to lie flat without any change in breathing. He feels that until he gets stronger and can pass a stress that that he will not be able to get knee(s) repaired. Will obtain lab work today. If lab work or other testing was ordered at your visit, please call our office ([phone]) one week after the lab draw or test to receive your results. Have ordered an echocardiogram and a pharmacologic stress test due to his dyspnea on exertion and decreased exercise tolerance. Begin use of a daily probiotic such as Align to help regulate bowels, decrease gas and improve overall gut health. Call [facility] or [facility] or [employer] [facility] for CPAP supplies. Begin levothyroxine 88 mcg once daily. Sanchez Ying [facility], was the scribe for today's note. I have performed all essential components of the history and physical exam. I have confirmed the diagnosis and developed a plan of care at this visit. I have reviewed the note following the visit and have added edits as appropriate to my evaluation and plan of care. [facility] Inst[facility]* Patient Instructions* SANCHEZ YING - 08/21/2020 2:45 PM EDT Assessment and Plan ICD-10-CM 1. Acute urinary tract infection N39.0 nitrofurantoin, macrocrystal-monohydrate, 100 MG capsule URIC ACID 2. Decreased exercise tolerance R68.89 NUC MYOCARD PERF STRESS [facility] 3. Primary osteoarthritis of both knees M17.0 4. History of gout Z87.39 5. Chronic fatigue R53.82 CBC, EDIF, PLATELET COMPREHENSIVE METABOLIC PANEL LIPID PANEL W CALCULATED LDL TSH W/FT4 REFLEX 6. Screening PSA (prostate specific antigen) Z12.5 PSA, SCREENING 7. Shortness of breath on exertion R06.02 NUC MYOCARD PERF STRESS [facility] Begin Macrobid 100 mg twice daily x 10 days to treat urinary infection. Says due to covid virus last year, he has spent more time at home and has been more inactive. Notices more shortness of breath when up exerting himself. He is able to lie flat without any change in breathing. He feels that until he gets stronger and can pass a stress that that he will not be able to get knee(s) repaired. Will obtain lab work today. If lab work or other testing was ordered at your visit, please call our office ([phone]) one week after the lab draw or test to receive your results. Have ordered an echocardiogram and a pharmacologic stress test due to his dyspnea on exertion and decreased exercise tolerance. Begin use of a daily probiotic such as Align to help regulate bowels, decrease gas and improve overall gut health. Call [facility] pharmacy or [facility] or [employer] [facility] for CPAP supplies. Begin levothyroxine 88 mcg once daily. Sanchez Ying [facility], was the scribe for today's note. I have performed all essential components of the history and physical exam. I have confirmed the diagnosis and developed a plan of care at this visit. I have reviewed the note following the visit and have added edits as appropriate to my evaluation and plan of care. documented in [facility] encounter[facility]* Diagnosis Urinary tract infection without hematuria, site unspecified- Primary Stricture of male urethra, unspecified stricture type Bladder tumor Neoplasm of unspecified nature of bladder Hydronephrosis Urethral stricture Urethral stricture, unspecified [facility] Diagnosis Acute urinary tract infection- Primary Urinary tract infection, site not specified Decreased exercise tolerance Other general symptoms Primary osteoarthritis of both knees Primary localized osteoarthrosis, lower leg History of gout Personal history of other endocrine, metabolic, and immunity disorders Chronic fatigue Other malaise and fatigue Screening PSA (prostate specific antigen) Special screening for malignant neoplasm of prostate Shortness of breath on exertion Shortness of breath Abnormal finding of blood chemistry, unspecified [facility] Diagnosis Stricture of male urethra, unspecified stricture type- Primary Bladder tumor Neoplasm of unspecified nature of bladder Hydronephrosis Bladder mass Neoplasm of uncertain behavior of bladder Urethral stricture Urethral stricture, unspecified documented in this encounter [facility]* Diagnosis Hydronephrosis Stricture of male urethra, unspecified stricture type documented in this encounter [facility]* Diagnosis Urinary frequency- Primary Bladder mass Neoplasm of uncertain behavior of bladder Stricture of male urethra, unspecified stricture type Urinary tract infection without hematuria, site unspecified Ureteral stricture Stricture or kinking of ureter Bladder mass Neoplasm of uncertain behavior of bladder Ureteral stricture Stricture or kinking of ureter Bladder mass Neoplasm of uncertain behavior of bladder [facility] Diagnosis Ureteral stricture Stricture or kinking of ureter Bladder mass Neoplasm of uncertain behavior of bladder [facility] Diagnosis Benign non-nodular prostatic hyperplasia with lower urinary tract symptoms- Primary [facility]* Diagnosis Benign non-nodular prostatic hyperplasia with lower urinary tract symptoms- Primary Bladder mass Neoplasm of uncertain behavior of bladder Urinary frequency Nocturia Personal history of malignant neoplasm of prostate [facility]* Diagnosis Malignant neoplasm of urinary bladder, unspecified site- Primary [facility]* Diagnosis Bladder mass- Primary Neoplasm of uncertain behavior of bladder Benign non-nodular prostatic hyperplasia with lower urinary tract symptoms Urinary frequency Nocturia Stricture of male urethra, unspecified stricture type [facility]* Diagnosis Acute cystitis with hematuria- Primary Acute cystitis [facility]* Diagnosis Candiduria- Primary Candidiasis of other urogenital sites Other urinary incontinence Incontinence associated dermatitis [facility]* Diagnosis Balanitis- Primary Balanoposthitis Urinary tract infection without hematuria, site unspecified Urinary urgency Urgency of urination Urinary frequency Continuous leakage [facility]* Diagnosis CHLOÉ (obstructive sleep apnea)- Primary Obstructive sleep apnea (adult) (pediatric) [facility]* Diagnosis Nonspecific findings on examination of urine- Primary Other nonspecific finding on examination of urine [facility]* Gastrointestinal: Soft, nontender, nondistendedGenitourinary: Jamison catheter in placeMusculoskeletal: Moving all extremities with equal strengthExtremities: No peripheral edemaNeurological: Awake, alert, orientedPositive slight tremor of bilateral upper extremitiesEyes: Extraocular muscles intactSkin: Warm and dryENMT: Moist mucous membranesHead/Neck: Normocephalic, atraumaticRespiratory/Thorax: B ilateral equal breath soundsCardiovascular: Regular rate and rhythmConstitutional: Awake, alert, oriented, no acute distressPsychological: Calm [facility]* Diagnosis Physical deconditioning- Primary Debility, unspecified Hydronephrosis with urinary obstruction due to ureteral calculus Anemia in stage 4 chronic kidney disease Prostate cancer Malignant neoplasm of prostate Acquired hypothyroidism Unspecified hypothyroidism Acute renal failure with acute cortical necrosis Acute kidney failure with lesion of renal cortical necrosis documented in this encounter [facility]* Skin: Warm and dryEyes: Extraocular muscles intactENMT: Moist mucous membranesHead/Neck: Normocephalic, atraumaticRespiratory/Thorax: Bilateral equal breath soundsGenitourinary: Indwelling Jamison catheterGastrointestinal: Soft, nontender, nondistendedMusculoskeletal: Resting comfortably in bedExtremities: No peripheral edemaNeurological: Awake, alert, orientedPsychological: CalmCardiovascular: Regular rate and rhythmConstitutional: Awake, alert, oriented, no acute distress [facility]* Diagnosis Hydronephrosis with renal and ureteral calculus obstruction- Primary Hydronephrosis Iron deficiency anemia, unspecified iron deficiency anemia type [facility]* Diagnosis Stage 5 chronic kidney disease not on chronic dialysis ([facility])- Primary Benign essential hypertension Essential hypertension, benign Hyperlipidemia, unspecified hyperlipidemia type Other hydronephrosis Anemia in stage 4 chronic kidney disease ([facility]) documented in this encounter [facility] Work Phone: Evaluation note* Diagnosis Iron deficiency anemia, unspecified iron deficiency anemia type- Primary Iron deficiency anemia secondary to blood loss (chronic) [facility] Diagnosis Closed fracture of left hip, initial encounter ([facility])- Primary Closed fracture of left hip, initial encounter ([facility]) Pneumonia due to infectious organism, unspecified laterality, unspecified part of lung Acute kidney injury superimposed on chronic kidney disease ([facility]) Obesity, morbid, BMI 40.0-49.9 ([facility]) Stage 5 chronic kidney disease not on chronic dialysis ([facility]) Hip fracture due to osteoporosis, initial encounter ([facility]) Acute gout involving toe of right foot, unspecified cause Metabolic syndrome Dysmetabolic Syndrome X Obesity, morbid, BMI 40.0-49.9 ([facility]) Stage 5 chronic kidney disease not on chronic dialysis ([facility]) documented in this encounter [facility] Work Phone: [phone] note* Diagnosis ESRD (end stage renal disease) ([facility])- Primary End stage renal disease documented in this encounter [facility] Work Phone: [phone] note* Diagnosis Unspecified hydronephrosis documented in this encounter [facility] Work Phone: [phone] note* Diagnosis History of left hip hemiarthroplasty- Primary Left hip pain Pain in joint, pelvic region and thigh documented in this encounter [facility] Work Phone: [phone] note* Diagnosis Urinary retention- Primary Unspecified retention of urine Hydronephrosis Closed fracture of left hip, initial encounter ([facility]) Left hip pain Pain in joint, pelvic region and thigh History of left hip hemiarthroplasty Closed fracture of left hip, initial encounter ([facility]) 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 Other hydronephrosis Urinary retention Unspecified retention of urine documented in this encounter [facility] Work Phone: [phone] note* Diagnosis ESRD (end stage renal disease) ([facility])- Primary End stage renal disease documented in this encounter [facility] note* Diagnosis Urinary retention- Primary Unspecified retention of urine Hydronephrosis 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 Other hydronephrosis Urinary retention Unspecified retention of urine documented in this encounter [facility] Work Phone: [phone] note* Diagnosis Urinary retention- Primary Unspecified retention of urine Hydronephrosis Chronic anemia- Primary Unspecified anemia Orthostatic hypotension UTI (urinary tract infection), bacterial Renal insufficiency Unspecified disorder of kidney and ureter History of left hip hemiarthroplasty Other hydronephrosis Urinary retention Unspecified retention of urine documented in this encounter [facility] Work Phone: [phone] note* Diagnosis Urinary retention- Primary Unspecified retention of urine Hydronephrosis Urinary tract infection without hematuria, site unspecified- Primary History of left hip hemiarthroplasty Other hydronephrosis Urinary retention Unspecified retention of urine documented in this encounter [facility] Work Phone: [phone] note* Diagnosis Obesity (BMI 30-39.9)- Primary ESRD (end stage renal disease) (HCC) End stage renal disease Pressure injury of contiguous region involving back and buttock, stage 2, unspecified laterality (HCC) Urinary tract infection associated with indwelling urethral catheter, initial encounter ([facility]) ESRD (end stage renal disease) (HCC) End stage renal disease [facility] (end stage renal disease) ([facility])- Primary End stage renal disease Essential hypertension, benign ESRD (end stage renal disease) ([facility]) End stage renal disease [facility] History of left hip hemiarthroplasty documented in this encounter [facility] Work Phone: Evaluation note* Diagnosis Urinary retention- Primary Unspecified retention of urine Other hydronephrosis Urinary retention Unspecified retention of urine Hydronephrosis CHLOÉ (obstructive sleep apnea) Obstructive sleep apnea (adult) (pediatric) documented in this encounter [facility] Work Phone: Evaluation note* Diagnosis History of left hip hemiarthroplasty documented in this encounter [facility] Work Phone: Evaluation note* Diagnosis Closed fracture of left hip, initial encounter ([facility]) documented in this encounter [facility] Work Phone: Evaluation note* Diagnosis Chest pain, unspecified type- Primary Preop examination Unspecified pre-operative examination Atypical chest pain Other chest pain [facility] Diagnosis Chest pain due to coronary artery disease (HCC)- Primary [facility]* Diagnosis Encounter for postoperative care 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 documented in this encounter [facility] Work Phone: Evaluation note* Diagnosis Obesity (BMI 30-39.9)- Primary ESRD (end stage renal disease) (HCC) End stage renal disease Pressure injury of contiguous region involving back and buttock, stage 2, unspecified laterality (HCC) Urinary tract infection associated with indwelling urethral catheter, initial encounter ([facility]) [facility] Diagnosis Wound infection after surgery- Primary ESRD (end stage renal disease) on dialysis ([facility]) End stage renal disease Class 1 obesity with serious comorbidity and body mass index (BMI) of 30.0 to 30.9 in adult, unspecified obesity type [facility] Diagnosis Closed fracture of left hip, initial encounter ([facility])- Primary documented in this encounter [facility] Work Phone: Evaluation note* Diagnosis History of prostate cancer Personal history of malignant neoplasm of prostate Renal stones Postprocedural membranous urethral stricture Urinary tract infection with hematuria, site unspecified ESRD (end stage renal disease) ([facility]) End stage renal disease Other hydronephrosis documented in this encounter [facility] Work Phone: Evaluation note* Diagnosis ESRD (end stage renal disease) on dialysis (HCC)- Primary End stage renal disease [facility]* Diagnosis End stage renal disease (Multi) End stage renal disease Other hydronephrosis documented in this encounter [facility] Work Phone: Evaluation note* Diagnosis ESRD (end stage renal disease) on dialysis ([facility])- Primary End stage renal disease AVF (arteriovenous fistula) ([facility]) Arteriovenous fistula, acquired Hypertension, unspecified type CHLOÉ (obstructive sleep apnea) Obstructive sleep apnea (adult) (pediatric) [facility]* Diagnosis ESRD (end stage renal disease) on dialysis (HCC)- Primary End stage renal disease [facility]* Diagnosis History of prostate cancer Personal history of malignant neoplasm of prostate Renal stones Postprocedural membranous urethral stricture Other hydronephrosis documented in this encounter [facility] Work Phone: Evaluation note* Diagnosis ESRD (end stage renal disease) (Multi) End stage renal disease documented in this encounter [facility] Work Phone: Evaluation note* Diagnosis AVF (arteriovenous fistula) ([facility])- Primary Arteriovenous fistula, acquired [facility]* Diagnosis AVF (arteriovenous fistula) ([facility])- Primary Arteriovenous fistula, acquired ESRD (end stage renal disease) on dialysis ([facility]) End stage renal disease Hypertension, unspecified type [facility]* Diagnosis Hydronephrosis- Primary [facility]* Diagnosis AVF (arteriovenous fistula) ([facility])- Primary Arteriovenous fistula, acquired ESRD (end stage renal disease) on dialysis ([facility]) End stage renal disease Hypertension, unspecified type documented in this encounter [facility] note* Diagnosis Hydronephrosis [facility]* Diagnosis Hydronephrosis- Primary Chronic kidney disease, unspecified documented in this encounter [facility] note* Diagnosis History of left hip hemiarthroplasty- Primary Left hip pain Pain in joint, pelvic region and thigh Closed fracture of left hip, initial encounter Left hip pain Pain in joint, pelvic region and thigh History of left hip hemiarthroplasty Closed fracture of left hip, initial encounter Encounter for postoperative care History of left hip hemiarthroplasty Closed fracture of left hip, initial encounter- Primary History of left hip hemiarthroplasty- Primary Left hip pain Pain in joint, pelvic region and thigh Pyelonephritis- Primary Unspecified pyelonephritis Pyelonephritis Unspecified pyelonephritis Infection due to extended-spectrum [id number] Escherichia coli Calculus of ureter Urinary retention Unspecified retention of urine CHLOÉ (obstructive sleep apnea) Obstructive sleep apnea (adult) (pediatric) Secondary hyperparathyroidism of renal origin (Multi) Secondary hyperparathyroidism (of renal origin) Dependence on renal dialysis ([facility]) Renal dialysis status ESRD (end stage renal disease) (Multi) End stage renal disease Urinary tract infection with hematuria, site unspecified Postprocedural membranous urethral stricture Obesity, morbid, BMI 40.0-49.9 (Multi) Renal stones Metabolic syndrome Dysmetabolic Syndrome X Hyperlipidemia, unspecified hyperlipidemia type Pain, unspecified Urinary retention Unspecified retention of urine Calculus of ureter documented in this encounter [facility] Work Phone: Evaluation note* Diagnosis History of left hip hemiarthroplasty- Primary Left hip pain Pain in joint, pelvic region and thigh Closed fracture of left hip, initial encounter Left hip pain Pain in joint, pelvic region and thigh History of left hip hemiarthroplasty Closed fracture of left hip, initial encounter Encounter for postoperative care History of left hip hemiarthroplasty Closed fracture of left hip, initial encounter- Primary History of left hip hemiarthroplasty- Primary Left hip pain Pain in joint, pelvic region and thigh History of left hip hemiarthroplasty documented in this encounter [facility] Work Phone: Evaluation note* Diagnosis History of left hip hemiarthroplasty- Primary Left hip pain Pain in joint, pelvic region and thigh Closed fracture of left hip, initial encounter Left hip pain Pain in joint, pelvic region and thigh History of left hip hemiarthroplasty Closed fracture of left hip, initial encounter Encounter for postoperative care History of left hip hemiarthroplasty Closed fracture of left hip, initial encounter- Primary History of left hip hemiarthroplasty- Primary Left hip pain Pain in joint, pelvic region and thigh 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 documented in this encounter [facility] Work Phone: Evaluation note* Diagnosis Needs flu shot- Primary Need for prophylactic vaccination and inoculation against influenza Benign essential hypertension Essential hypertension, benign Anemia in end-stage renal disease Anemia in chronic kidney disease Left hip impingement syndrome Localized osteoporosis without current pathological fracture [facility] History of left hip hemiarthroplasty- Primary Left hip pain Pain in joint, pelvic region and thigh Closed fracture of left hip, initial encounter Left hip pain Pain in joint, pelvic region and thigh History of left hip hemiarthroplasty Closed fracture of left hip, initial encounter Encounter for postoperative care History of left hip hemiarthroplasty Closed fracture of left hip, initial encounter- Primary History of left hip hemiarthroplasty- Primary Left hip pain Pain in joint, pelvic region and thigh History of left hip hemiarthroplasty Jamison catheter problem, initial encounter ([facility])- Primary Urinary tract infection with hematuria, site unspecified Hydroureteronephrosis Hydronephrosis Left ureteral stone documented in this encounter [facility] Work Phone: Evaluation note* Diagnosis History of left hip hemiarthroplasty- Primary Left hip pain Pain in joint, pelvic region and thigh Closed fracture of left hip, initial encounter (Multi) Left hip pain Pain in joint, pelvic region and thigh History of left hip hemiarthroplasty Closed fracture of left hip, initial encounter (Multi) Encounter for postoperative care History of left hip hemiarthroplasty Closed fracture of left hip, initial encounter (Multi)- Primary History of left hip hemiarthroplasty- Primary Left hip pain Pain in joint, pelvic region and thigh History of prostate cancer Personal history of malignant neoplasm of prostate ESRD (end stage renal disease) (Multi) End stage renal disease Renal stones Other hydronephrosis documented in this encounter [facility] Work Phone: Evaluation note* Diagnosis History of left hip hemiarthroplasty- Primary Left hip pain Pain in joint, pelvic region and thigh Closed fracture of left hip, initial encounter (Multi) Left hip pain Pain in joint, pelvic region and thigh History of left hip hemiarthroplasty Closed fracture of left hip, initial encounter (Multi) Encounter for postoperative care History of left hip hemiarthroplasty Closed fracture of left hip, initial encounter (Multi)- Primary History of left hip hemiarthroplasty- Primary Left hip pain Pain in joint, pelvic region and thigh Epigastric abdominal pain- Primary Abdominal pain, epigastric documented in this encounter [facility] Work Phone: Evaluation note* Diagnosis Chronic kidney disease (CKD), stage V- Primary Chronic kidney disease, Stage V Arthralgia of left hip Acquired hypothyroidism Unspecified hypothyroidism TSH (thyroid-stimulating hormone deficiency) Other specified acquired hypothyroidism Acute renal failure with other specified pathological lesion in kidney Anemia in end-stage renal disease Anemia in chronic kidney disease Abnormal finding of blood chemistry, unspecified [facility] Diagnosis Acquired hypothyroidism- Primary Unspecified hypothyroidism Mixed hyperlipidemia Chronic kidney disease (CKD), stage V Chronic kidney disease, Stage V Elevated parathyroid hormone Unspecified endocrine disorder Renal stones Calculus of kidney documented in this encounter [facility]* Diagnosis Urinary retention- Primary Retention of urine, unspecified Ureter, stricture Stricture or kinking of ureter Hydronephrosis, unspecified hydronephrosis type Recurrent UTI Urinary tract infection, site not specified Personal history of malignant neoplasm of prostate documented in this encounter [facility]* Diagnosis Urinary retention Retention of urine, unspecified Hydronephrosis, unspecified hydronephrosis type Recurrent UTI Urinary tract infection, site not specified documented in this encounter [facility]* Diagnosis Urinary retention- Primary Retention of urine, unspecified Ureter, stricture Stricture or kinking of ureter Recurrent UTI Urinary tract infection, site not specified Hydronephrosis, unspecified hydronephrosis type Personal history of malignant neoplasm of prostate documented in this encounter [facility]* Diagnosis Preop examination- Primary Unspecified pre-operative examination ESRD (end stage renal disease) (HCC) End stage renal disease Essential hypertension, benign Hypertension, unspecified type Gastroesophageal reflux disease, unspecified whether esophagitis present Anemia, unspecified type Hyperlipidemia, unspecified hyperlipidemia type CHLOÉ (obstructive sleep apnea) Obstructive sleep apnea (adult) (pediatric) Hypothyroidism, unspecified type ESRD (end stage renal disease) (HCC)- Primary End stage renal disease ESRD (end stage renal disease) on dialysis (HCC) End stage renal disease AVF (arteriovenous fistula) Arteriovenous fistula, acquired Hypertension, unspecified type Anemia, unspecified type Hyperlipidemia, unspecified hyperlipidemia type Preop examination Unspecified pre-operative examination AVF (arteriovenous fistula)- Primary Arteriovenous fistula, acquired AVF (arteriovenous fistula)- Primary Arteriovenous fistula, acquired ESRD (end stage renal disease) on dialysis (HCC) End stage renal disease Hypertension, unspecified type Retention of urine, unspecified Retention of urine, unspecified- Primary Retention of urine, unspecified documented in this encounter [facility] noteNo assessment information availableWThe [facility] Work Phone: Hospital course Narrative No data available for this section [facility] Discharge instructions* Midline Catheter: [id number] Catheter: right basilic vein (medial side of arm)Midline Catheter: single lumen, 4 Fr * Activity:activity as tolerated. * Line Care (Gold Form or Patient Managed):Line Care for Adults. Access Type: Midline. FLUSH INSTRUCTIONS. Heparin flush 10 unit/mL Injectable 5 mL intravenous every 8 hours and as needed- via Midline.Sodium Chloride 0.9% Injectable 10 mL Intravenous flush every 8 hours and as needed - via Midline. PICC/MIDLINE INSTRUCTIONS. Avoid using syringes smaller than 6 mLs. Notify MD of inability to obtainblood return or flush catheter. Notify MD if line becomes sluggish to draw or flush. Do not use armthat contains the line for BP or phlebotomy. Warm compress to arm containing line, intermittently every 4 hours for 24 hours post insertion and as needed. Notify MD of temp > 100.2 F, shortness ofbreath, elevated heart rate or abnormal rhythm. Notify MD of bleeding, swelling, purluent draining at exit site, and/or catheter dislodgement. Avoid infusing Hyper-Osmolor, irritating or vesicant solutions. Change transparent dressing, stat lock and biopatch every 7 days and as needed. Cleanse withchloraprep. Use betadine only if patient has allergy to chloraprep. Change 24 hours after initial insertion. Change transparent dressing and stat lock every 7 days and as needed. Gauze and tape dressing every 48 hours as needed. Measure mid-upper arm circumference. Measure external catheter length.GENERAL LINE CARE INSTRUCTIONS. Tubing change: every 4 days and as needed. Exception: lipids and blood products change within 24 hours of infusion. Cap change: every 7 days and as needed. Change within 24 hours of blood or lipid infusion. Gloves should be worn with handling of central venous catheter. Call Physician if presence of redness, swelling, drainage or purulence at insertion site. * Care Recommendation:I recommend that INPATIENT care is required at: SkilledEstimated Stay: Convalescent stay < 30 daysPrognosis: FairRehab Potential/Function: Improve * Therapy Orders:Occupational Therapy Orders: Eval and Treat ([facility])Physical Therapy Orders: Eval and Treat ([facility]) * Follow Up Appointment 1:Physician/Dept/Service: Primary Care Physician/Facility Eduin forReferral: f/u hsopital stayCall to Schedule in: 1 week * Follow Up Appointment 2:Physician/Dept/Service: Dr. De León [facility]Rest[facility]Location[facility]: [phone]: Please have labs drawn 1-2 days prior to appointment, labs are ordered through Dr. De León's office. * Follow Up Appointment 3:Physician/Dept/Service: Dr. Bah UrologyReason for Referral: / hospital stay, urinary retention, jamison catheterScheduled Date/Time: 09-Dec-2022 11:00[address] [address]: [phone] * Gold Form - Other Clinicians:Nursing Instructions: Urinary catheter to gravity for urinary retention.Jamison catheter care twice a day with soap and water.Nutrition Instructions: Ensure Plus High Protein twice a day.Respiratory Instructions: Oxygen 1-6 LPM NC as needed, titrate to maintain SPo2 greater than 90%.Daily am pulse ox when on baseline oxygen.Other Clinician Instructions: Micafungin stop date [facility]20[facility]* Attachments The following attachments cannot be sent through Care Everywhere. * Urinary Tract Infection, Adult ED ([place]) [facility]charge [facility]* Attachments The following attachments cannot be sent through Care Everywhere. * Urinary Tract Infection, Adult ED ([place]) * Hydronephrosis Discharge Instructions, Adult ([place]) [facility] Discharge instructions* Attachments The following attachments cannot be sent through Care Everywhere. * Abdominal pain ([place]) [facility] Hospital Discharge instructions Additional Instructions Stop the antibiotic you are on. Start the new antibiotic I put you on called Cipro you will take it 1 pill twice a day after breakfast and then after dinner. For 10 days. Call and follow-up with your primary care physician this coming week to ensure you are improving. Return the emergency department if you are feeling worse.[facility] Work Phone: Hospital Discharge instructions Additional Instructions Your labs are stable urine with infection urine culture from 3 days positive for Pseudomonas resistant to your Cipro. Stop your Cipro. You are given IV Rocephin. Take new antibiotic prescribed. He will like to have your home nurse change her Jamison catheter, if this changes soon as possible. If you develop any worsening symptoms, return to the ED for reevaluation.[facility] Work Phone: Hospital Discharge instructions Additional Instructions Urine with signs of infection urine culture sent and pending. Take and finish antibiotics prescribed. Follow-up with your urologist. You develop any fevers or worsening symptoms, return to the ED for reevaluation.[facility] Work Phone: Hospital Discharge instructionsAdditional Instructions Antibiotics as directed. Follow-up with your urologist in [place]. Return with fever, new or worsening symptoms. Have your dialysis performed as scheduled on Friday.[facility] Work Phone: Reason for referral (narrative)* Reason for Referral: kidney failure [facility] Consultation (Routine) - Pending Review Specialty Diagnoses / Procedures Referred By Contac t Referred To Contact Nephrology Diagnoses Hydronephrosis with urinary obstruction due to ureteral calculus Acute renal failure with acute cortical necrosis Ata Hernandez, DO [address] [place] [id number] Abdirizak Merritt MD [address] [place] [id number] Referral ID Status Reason Start Date Expiration Date V isits Requested Visits Authorized [id number] Pending Review 12/26/2022 01/20/2024 1 1 [facility] for referral (narrative)* Consultation (Routine) - Open Specialty Diagnoses / Procedures Referred By Contac t Referred To Contact Gastroenterology Diagnoses Iron deficiency anemia, unspecified iron deficiency anemia type Ata Hernandez DO [address] [place], [place] [id number] Joaquin Tillman Jr., DO [address] [id number] Referral ID Status Reason Start Date Expiration Date Visits Re quested Visits Authorized [id number] Open 01/27/2023 02/21/2024 [address] [facility] for referral (narrative)* Consultation (Routine) - Authorized Specialty Diagnoses / Procedures Referred By Contac t Referred To Contact Orthopaedic Surgery / Orthopedic Surgery Diagnoses Closed fracture of left hip, initial encounter ([facility]) Procedures Follow Up In Orthopaedic Surgery Judy eLy MD [address] [facility] [address] [place] [address] Referral ID Status Reason Start Date Expiration Date V isits Requested Visits Authorized [id number] Authorized 05/23/2023 05/22/2024 1 1 * Imaging (Routine) - Pending Review Specialty Diagnoses / Procedures Referred By Contac t Referred To Contact Radiology Diagnoses History of left hip hemiarthroplasty Procedures XR hip left with pelvis when performed 2 or 3 views Judy Ley MD [address] [facility] [address] [place] [address] Referral ID Status Reason Start Date Expiration Date Visits Requested Visits Authorized [id number] Pending Review Perform Procedure 3 05/22/2024 1 1 * Imaging (Routine) - Pending Review Specialty Diagnoses / Procedures Referred By Contac t Referred To Contact Radiology Diagnoses History of left hip hemiarthroplasty Procedures XR hip left with pelvis when performed 2 or 3 views Judy Ley MD [address] [facility] [address] [place] [address] Referral ID Status Reason Start Date Expiration Date Visits Requested Visits Authorized [id number] Pending Review Perform Procedure 3 05/22/2024 1 1 * Imaging (Routine) - Authorized Specialty Diagnoses / Procedures Referred By Contac t Referred To Contact Radiology Diagnoses Closed fracture of left hip, initial encounter ([facility]) Procedures XR hip left with pelvis when performed 2 or 3 views Judy Ley MD [address] [facility] [address] [place] [address] Referral ID Status Reason Start Date Expiration Date Visits Requested Visits Authorized [id number] Authorized Perform Procedure 3 05/21/2024 1 1 [facility] Work Phone: Reason for referral (narrative)* Consultation (Routine) - Authorized Specialty Diagnoses / Procedures Referred By Contact Referred To Contact Interventional Radiology Diagnoses ESRD (end stage renal disease) ([facility]) Other hydronephrosis John Bah MD [address] [place] [address] [place] [address] [place] [address] Referral ID Status Reason Start Date Expiration Date Visits Requested Visits Authorized [id number] Authorized Specialty Services Required 09/10/2023 09/09/2024 1 1 [facility] Work Phone: Reason for referral (narrative)* Medication Prior Authorization - Pending Review Specialty Diagnoses / Procedures Referred By Zak gerber Referred To Contact Ata Hernandez DO [address] [place] [id number] Phone: tel: fax: Referral ID Status Reason Start Date Expiration Date V isits Requested Visits Authorized [id number] Pending Review 1 1 [facility]* Auth/Cert Specialty Diagnoses / Procedures Referred By Zak gerber Referred To Contact Diagnoses Pyelonephritis Procedures IP Admission Emily Dickey MD [address] [place] [address] [facility] [place] [id number] [place] [phone] Referral ID Status Reason Start Date Expiration Date Visits Re quested Visits Authorized [id number] 1 1 [facility] Work Phone: Reason for visit Narrative* Imaging (Routine) - Authorized Specialty Diagnoses / Procedures Referred By Contbrando t Referred To Contact Radiology Diagnoses History of left hip hemiarthroplasty Procedures XR hip left with pelvis when performed 2 or 3 views Judy Ley MD [address] [facility] [address] [place] [address] Phone: tel: fax: [address] [place] [address] Phone: tel: Referral ID Status Reason Start Date Expiration Date Visits Requested Visits Authorized [id number] Authorized Perform Procedure 03/30/2025 1 1 [facility] Work Phone: reason for visit Narrative* Radiology (Routine) - Closed Specialty Diagnoses / Procedures Referred By Contbrando t Referred To Contact Diagnoses Urinary retention Hydronephrosis, unspecified hydronephrosis type Recurrent UTI Procedures US RENAL RETROPERITONEAL Sharmila Espinoza, LIBAN [address] [place] [address] Phone: tel: fax: Referral ID Status Reason Start Date Expiration Date Visits Re quested Visits Authorized [id number] Closed 09/09/2024 10/04/2025 1 1 [facility] Summary Purpose Family History No Family History Records FoundUnknown Family Member Name Dates Details No pertinent family history: Mother(V49.89, Z78.9) Status:Active Unknown Family Member Name Dates Details No pertinent family history: Mother(V49.89, Z78.9) Status:Active Unknown Family Member Name Dates Details No pertinent family history: Mother(V49.89, Z78.9) Status:Active Unknown Family Member Name Dates Details No pertinent family history: Mother(V49.89, Z78.9) Status:Active Unknown Family Member Name Dates Details No pertinent family history: Mother(V49.89, Z78.9) Status:Active Relationship Condition Age at Onset Recorded Date/T chris Not Specified Cardiac disease Unknown Hypertension Unknown Advance Directives No Advanced Directives Records Found Date Activated Date Inactivated Comments 03/09/2024 9:43 AM Question Answer Comments Plan of Care: Code Status Discussion Completed Decision Maker: Patient Date Activated Date Inactivated Comments 03/05/2024 1:20 PM 03/09/2024 9:43 AM Question Answer Comments Plan of Care: Code Status Discussion Completed Decision Maker: Patient Date Activated Date Inactivated Comments 06/24/2023 11:28 AM 03/05/2024 1:20 PM Question Answer Comments Plan of Care: Code Status Discussion Completed Decision Maker: Patient Date Activated Date Inactivated Comments 03/31/2023 4:40 PM 04/07/2023 3:55 PM Question Answer Comments Plan of Care: Code Status Discussion Completed Decision Maker: Patient Latest Code Status on File Code Status Date Activated Date Inactivated Comments Full Code 03/31/2023 4:40 PM Question Answer Comments Plan of Care: Code Status Discussion Completed Decision Maker: Patient Latest Code Status on File Code Status Date Activated Date Inactivated Comments Full Code 03/31/2023 4:40 PM 04/07/2023 3:55 PM Question Answer Comments Plan of Care: Code Status Discussion Completed Decision Maker: Patient Latest Code Status on File Code Status Date Activated Date Inactivated Comments Full Code 03/31/2023 4:40 PM 04/07/2023 3:55 PM Question Answer Comments Plan of Care: Code Status Discussion Completed Decision Maker: Patient Latest Code Status on File Code Status Date Activated Date Inactivated Comments Full Code 03/31/2023 4:40 PM 04/07/2023 3:55 PM Question Answer Comments Plan of Care: Code Status Discussion Completed Decision Maker: Patient Latest Code Status on File Code Status Date Activated Date Inactivated Comments Full Code 06/24/2023 11:28 AM Question Answer Comments Plan of Care: Code Status Discussion Completed Decision Maker: Patient Code Status History Code Status Date Activated Date Inactivated Comments Full Code 03/31/2023 4:40 PM 04/07/2023 3:55 PM Question Answer Comments Plan of Care: Code Status Discussion Completed Decision Maker: Patient Latest Code Status on File Code Status Date Activated Date Inactivated Comments Full Code 06/24/2023 11:28 AM Question Answer Comments Plan of Care: Code Status Discussion Completed Decision Maker: Patient Code Status History Code Status Date Activated Date Inactivated Comments Full Code 03/31/2023 4:40 PM 04/07/2023 3:55 PM Question Answer Comments Plan of Care: Code Status Discussion Completed Decision Maker: Patient Latest Code Status on File Code Status Date Activated Date Inactivated Comments Full Code 06/24/2023 11:28 AM Question Answer Comments Plan of Care: Code Status Discussion Completed Decision Maker: Patient Code Status History Code Status Date Activated Date Inactivated Comments Full Code 03/31/2023 4:40 PM 04/07/2023 3:55 PM Question Answer Comments Plan of Care: Code Status Discussion Completed Decision Maker: Patient Date Activated Date Inactivated Comments 06/24/2023 11:28 AM Date Activated Date Inactivated Comments 03/31/2023 4:40 PM 04/07/2023 3:55 PM Date Activated Date Inactivated Comments 06/24/2023 11:28 AM Question Answer Comments Plan of Care: Code Status Discussion Completed Decision Maker: Patient Date Activated Date Inactivated Comments 03/31/2023 4:40 PM 04/07/2023 3:55 PM Question Answer Comments Plan of Care: Code Status Discussion Completed Decision Maker: Patient Date Activated Date Inactivated Comments 03/09/2024 9:43 AM Date Activated Date Inactivated Comments 03/05/2024 1:20 PM 03/09/2024 9:43 AM Date Activated Date Inactivated Comments 06/24/2023 11:28 AM 03/05/2024 1:20 PM Question Answer Comments Plan of Care: Code Status Discussion Completed Decision Maker: Patient Date Activated Date Inactivated Comments 03/31/2023 4:40 PM 04/07/2023 3:55 PM Question Answer Comments Plan of Care: Code Status Discussion Completed Decision Maker: Patient Advance Directive Response Recorded Date/ Time Living Will Yes July 14 6:55pm Power of Tree Trimmer Yes July 14, 2024 6:55pm Name of Medical Power of Tree Trimmer angela July 14, 2024 6:55pm Living Will No August 13, 2024 7:50pm Power of Tree Trimmer No August 13 7:50pm Living Will Yes June 03 11:18pm Power of Tree Trimmer Yes June 03 11:18pm Name of Medical Power of Tree Trimmer ANGELA ANGULO June 03, 2024 11:18pm Living Will Yes June 28 5:11pm Power of Tree Trimmer Yes June 28, 2024 5:11pm Name of Medical Power of Tree Trimmer Angela Del June 28, 2024 5:11pm Advance Directive Response Recorded Date/ Time Living Will Yes July 14 6:55pm Power of Tree Trimmer Yes July 14, 2024 6:55pm Name of Medical Power of Tree Trimmer angela July 14, 2024 6:55pm Living Will No August 13, 2024 7:50pm Power of Tree Trimmer No August 13 7:50pm Living Will Yes June 03 11:18pm Power of Tree Trimmer Yes June 03 11:18pm Name of Medical Power of Tree Trimmer ANGELA JUSTIN June 03, 2024 11:18pm Living Will Yes June 28 5:11pm Power of Tree Trimmer Yes June 28, 2024 5:11pm Name of Medical Power of Tree Trimmer Angela Hernandezjuvencio June 28, 2024 5:11pm Living Will Yes August 16, 2024 4:46pm Power of Tree Trimmer Yes August 16 4:46pm Name of Medical Power of Tree Trimmer Angela Cortesbecca friend tiffanie August 16, 2024 4:46pm Advance Directive Response Recorded Date/ Time Living Will Yes July 14 6:55pm Do you have a Healthcare Pow er of Tree Trimmer? Yes July 14, 2024 6:55pm Name of Medical Power of Tree Trimmer angela July 14, 2024 6:55pm Living Will No August 13, 2024 7:50pm Do you have a Healthcare Pow er of Tree Trimmer? No August 13, 2024 7:50pm Do you have a Healthcare Pow er of Tree Trimmer? No October 22, 2024 3:30pm Do you have a Healthcare Pow er of Tree Trimmer? Yes November 09, 2024 2:42pm Name of Medical Power of Tree Trimmer angela angulo November 09, 2024 2:42pm Living Will Yes August 16, 2024 4:46pm Do you have a Healthcare Pow er of Tree Trimmer? Yes August 16, 2024 4:46pm Name of Medical Power of Tree Trimmer Angela Cortesbecca friend tiffanie August 16, 2024 4:46pm Advance Directive Response Recorded Date/ Time Living Will No August 13, 2024 7:50pm Do you have a Healthcare Pow er of Tree Trimmer? No August 13, 2024 7:50pm Do you have a Healthcare Pow er of Tree Trimmer? No October 22, 2024 3:30pm Do you have a Healthcare Pow er of Tree Trimmer? Yes November 09, 2024 2:42pm Name of Medical Power of Tree Trimmer angela angulo November 09, 2024 2:42pm Do you have a Healthcare Pow er of Tree Trimmer? No December 01, 2024 10:56am Living Will Yes August 16, 2024 4:46pm Do you have a Healthcare Pow er of Tree Trimmer? Yes August 16, 2024 4:46pm Name of Medical Power of Tree Trimmer Angela Webb friend poa August 16, 2024 4:46pm Advance Directive Response Recorded Date/ Time Do you have a Healthcare Pow er of Tree Trimmer? No October 22, 2024 3:30pm Do you have a Healthcare Pow er of Tree Trimmer? Yes November 09, 2024 2:42pm Name of Medical Power of Tree Trimmer angela angulo November 09, 2024 2:42pm Do you have a Healthcare Pow er of Tree Trimmer? No December 01, 2024 10:56am Living Will Yes August 16, 2024 4:46pm Do you have a Healthcare Pow er of Tree Trimmer? Yes August 16, 2024 4:46pm Name of Medical Power of Tree Trimmer Angela Webb friend pojohn August 16, 2024 4:46pm Do you have a Healthcare Pow er of Tree Trimmer? No December 13, 2024 10:47am Reason for Referral Status Reason Specialty Diagnoses / Procedures Referred By Contact Referred To Contact New Request Diagnoses Chronic pain of left knee Ata Hernandez, DO [address] [place], [place] [id number] Status Reason Specialty Diagnoses / Procedures Re ferred By Contact Referred To Contact Closed Ultrasound Diagnoses Acute renal failure, unspecified acute renal failure type Procedures US RENAL RETROPERITONEAL Ata Hernandez, DO [address] [place] [address] [facility] [address] [place] [phone] Status Reason Specialty Diagnoses / Procedures Referred By Contact Referred To Contact Closed Nuclear Medicine Diagnoses Decreased exercise tolerance Shortness of breath on exertion Procedures NUC MYOCARD PERF STRESS MIBI PHARM NJ CHG MYOCARDIAL SPECT MULTIPLE STUDIES CHG MYOCARDIAL SPECT MULTIPLE STUDIES-T NJ CARDIAC STRESS TST,INTERP/REPT ONLY NJ CV STRS TST XERS&/OR RX CONT ECG W/O I&R Ata Hernandez, DO [address] [place] [address] [facility] Nuclear Medicine [address] [place] [phone] Status Reason Specialty Diagnoses / Procedures Referred By Contact Referred To Contact Closed Cardiovascular Medicine Diagnoses Shortness of breath on exertion Procedures ECHOCARDIOGRAM NJ ECHO HEART XTHORACIC,COMPLETE W DOPPLER Ata Hernandez, DO [address] [place] [address] [facility] Echocardiograph y [address] [id number] Status Reason Specialty Diagnoses / Procedures Referred By Contact Referred To Contact New Request Diagnoses Bladder mass Procedures CT ABDOMEN/PELVIS WITHOUT CONTRAST CHG CT SCAN,ABDOMENT AND PELVIS,W/O CONTRAST Bam Lambert MD [address] [id number] Status Reason Specialty Diagnoses / Procedures Referred By Contact Referred To Contact Closed Computerized Tomography Scan Diagnoses Bladder mass Procedures CT ABDOMEN/PELVIS WITHOUT CONTRAST CHG CT SCAN,ABDOMENT AND PELVIS,W/O CONTRAST Bam Lambert MD [address] [id number] [facility] [address] Scan [address] [place], [place] [phone] Status Reason Specialty Diagnoses / Procedures Re ferred By Contact Referred To Contact New Request Diagnoses Hydronephrosis Stricture of male urethra, unspecified stricture type Procedures US RENAL RETROPERITONEAL Sharmila Espinoza CNP [address] [place] [address] Status Reason Specialty Diagnoses / Procedures Re ferred By Contact Referred To Contact Closed Ultrasound Diagnoses Hydronephrosis Stricture of male urethra, unspecified stricture type Procedures US RENAL RETROPERITONEAL Sharmila Espinoza CNP [address] [place] [address] [facility] [address] [place], [place] [phone] Status Reason Specialty Diagnoses / Procedures Re ferred By Contact Referred To Contact New Request Diagnoses Stricture of male urethra, unspecified stricture type Procedures US RENAL RETROPERITONEAL US RENAL RETROPERITONEAL Gifty Landrum, CLINICAL TRIAL HEAD [address] [place] [address] Specialty Diagnoses / Procedures Referred By Contac t Referred To Contact Diagnoses Iron deficiency anemia, unspecified iron deficiency anemia type Procedures M2A ENTEROSCOPY CAPSULE Joauqin Tillman Jr., DO [address] [place], [place] [phone] Referral ID Status Reason Start Date Expiration Date V isits Requested Visits Authorized [id number] New Request 03/26/2023 04/19/2024 1 1 Specialty Diagnoses / Procedures Referred By Contac t Referred To Contact Diagnoses Iron deficiency anemia, unspecified iron deficiency anemia type Procedures DIAGNOSTIC UPPER ENDOSCOPY NJ ESOPHAGOGASTRODUODENOSCOPY TRANSORAL DIAGNOSTIC Joaquin Tillman Jr., DO [address] [place], [place] [phone] Referral ID Status Reason Start Date Expiration Date V isits Requested Visits Authorized [id number] New Request 03/26/2023 04/19/2024 1 1 Specialty Diagnoses / Procedures Referred By Contac t Referred To Contact Diagnoses Iron deficiency anemia, unspecified iron deficiency anemia type Procedures DIAGNOSTIC COLONOSCOPY NJ COLONOSCOPY STOMA DX INCLUDING COLLJ SPEC SPX Joaquin Tillman Jr., DO [address] [place], [place] [id number] Referral ID Status Reason Start Date Expiration Date V isits Requested Visits Authorized [id number] New Request 03/26/2023 04/19/2024 1 1 Specialty Diagnoses / Procedures Referred By Contac t Referred To Contact Radiology Diagnoses Left hip pain History of left hip hemiarthroplasty Procedures XR hip left 2 or 3 views Judy Ley MD [address] [place] [address] Referral ID Status Reason Start Date Expiration Date Visits Requested Visits Authorized [id number] Authorized Perform Procedure 3 04/21/2024 1 1 Specialty Diagnoses / Procedures Referred By Contact Referred To Contact Orthopaedic Surgery / Orthopedic Surgery Diagnoses Left hip pain History of left hip hemiarthroplasty Procedures Follow Up In Orthopaedic Surgery Judy Ley MD [address] [place] [address] Referral ID Status Reason Start Date Expiration Date V isits Requested Visits Authorized [id number] Authorized 04/22/2023 04/21/2024 1 1 Specialty Diagnoses / Procedures Referred By Contac t Referred To Contact Cardiology Diagnoses ESRD (end stage renal disease) ([facility]) Nan De León, CLINICAL TRIAL HEAD [address] [place] [address] [facility] [address] [facility] [place] [address] Referral ID Status Reason Start Date Expiration Date V isits Requested Visits Authorized [id number] Pending Review 05/23/2023 05/22/2024 1 1 Specialty Diagnoses / Procedures Referred By Contac t Referred To Contact Radiology Diagnoses History of left hip hemiarthroplasty Procedures XR hip left with pelvis when performed 2 or 3 views Judy Ley MD [address] [place] [phone] Referral ID Status Reason Start Date Expiration Date Visits Requested Visits Authorized [id number] Pending Review Perform Procedure 3 05/22/2024 1 1 Referral ID Status Reason Start Date Expiration Date Visits Requested Visits Authorized [id number] Pending Review Perform Procedure 3 05/22/2024 1 1 Specialty Diagnoses / Procedures Referred By Contac t Referred To Contact Radiology Diagnoses Closed fracture of left hip, initial encounter ([facility]) Procedures XR hip left with pelvis when performed 2 or 3 views Judy Ley MD [address] [place] [address] Referral ID Status Reason Start Date Expiration Date Visits Requested Visits Authorized [id number] Authorized Perform Procedure 06/26/2023 06/25/2024 1 1 Specialty Diagnoses / Procedures Referred By Contac t Referred To Contact Cardiology Diagnoses Preop examination Chest pain, unspecified type Atypical chest pain Procedures Dobutamine stress echocardiogram Genet Stein MD [address] [place] [address] Referral ID Status Reason Start Date Expiration Date V isits Requested Visits Authorized [id number] Authorized 07/17/2023 07/16/2024 1 1 Specialty Diagnoses / Procedures Referred By Contac t Referred To Contact Radiology Diagnoses Chest pain due to coronary artery disease (HCC) Procedures NM Myocardial Perfusion Multiple SPECT Genet Stein MD [address] [place] [address] Referral ID Status Reason Start Date Expiration Date V isits Requested Visits Authorized [id number] Authorized 07/15/2023 07/14/2024 4 4 Referral ID Status Reason Start Date Expiration Date Visits Requested Visits Authorized [id number] Pending Review Perform Procedure 07/25/2023 07/24/2024 1 1 Specialty Diagnoses / Procedures Referred By Contac t Referred To Contact Cardiology Diagnoses ESRD (end stage renal disease) on dialysis (HCC) Procedures Ultrasound hemodialysis access Cali Jacob MD [address] [place] [address] Referral ID Status Reason Start Date Expiration Date V isits Requested Visits Authorized [id number] Pending Review 10/14/2023 10/13/2024 1 1 Referral ID Status Reason Start Date Expiration Date V isits Requested Visits Authorized [id number] Authorized 10/29/2023 10/28/2024 1 1 Specialty Diagnoses / Procedures Referred By Contac t Referred To Contact Radiology Diagnoses ESRD (end stage renal disease) (Multi) Procedures IR placement of nephrostomy catheter Consult to Interventional Radiology John Bah MD [address] [place] [address] Referral ID Status Reason Start Date Expiration Date Visits Requested Visits Authorized [id number] Authorized Perform Procedure 09/12/2023 09/11/2024 1 1 Specialty Diagnoses / Procedures Referred By Contact Referred To Contact Interventional Radiology Diagnoses Hydronephrosis John Bah MD [address] [place] [address] Arnulfo Obregon DO [address] [facility] [address] [place] [address] Referral ID Status Reason Start Date Expiration Date Visits Requested Visits Authorized [id number] Authorized Specialty Services Required/Pat ient's Best Interest 12/19/2023 12/18/2024 1 1 Specialty Diagnoses / Procedures Referred By Contac t Referred To Contact Radiology Diagnoses Hydronephrosis Chronic kidney disease, unspecified Procedures VR SC Nephoureteral Tube Change Ata Mane MD [address] [facility] [address] [place] [address] Referral ID Status Reason Start Date Expiration Date V isits Requested Visits Authorized [id number] Pending Review 02/03/2024 02/02/2025 1 1 Specialty Diagnoses / Procedures Referred By Contac t Referred To Contact Home Health Services Diagnoses Urinary tract infection with hematuria, site unspecified Giovanni Pardo MD [address] [place] [address] Referral ID Status Reason Start Date Expiration Date Visits Requested Visits Authorized [id number] Pending Review Specialty Services Required 03/10/2024 03/10/2025 999 999 Specialty Diagnoses / Procedures Referred By Contac t Referred To Contact Diagnoses Urinary tract infection with hematuria, site unspecified Procedures Venous Access, Home Infusion Giovanni Pardo MD [facility] [place] [address] Referral ID Status Reason Start Date Expiration Date V isits Requested Visits Authorized [id number] Pending Review 03/10/2024 03/10/2025 1 1 Specialty Diagnoses / Procedures Referred By Contact Referred To Contact Home Health Services Diagnoses CHLOÉ (obstructive sleep apnea) Secondary hyperparathyroidism of renal origin (Multi) Dependence on renal dialysis ([facility]) ESRD (end stage renal disease) (Multi) Urinary tract infection with hematuria, site unspecified Postprocedural membranous urethral stricture Obesity, morbid, BMI 40.0-49.9 (Multi) Renal stones Metabolic syndrome Hyperlipidemia, unspecified hyperlipidemia type Giovanni Pardo MD [address] [place] [address] Referral ID Status Reason Start Date Expiration Date Visits Requested Visits Authorized [id number] Authorized Specialty Services Required 03/10/2024 03/10/2025 999 999 Specialty Diagnoses / Procedures Referred By Contac t Referred To Contact Diagnoses Infection due to extended-spectrum zhth-yptlrzevi-szjwerahx Escherichia coli Procedures Venous Access, Home Infusion Daily Coates DO [address] [place] [address] Referral ID Status Reason Start Date Expiration Date V isits Requested Visits Authorized [id number] Pending Review 03/08/2024 03/08/2025 1 1 Specialty Diagnoses / Procedures Referred By Contac t Referred To Contact Home Health Services Diagnoses Infection due to extended-spectrum uiko-bpovbnhqr-avvraovsy Escherichia coli Daily Coates, [address] [place] [address] [place] [address] [place] [address] Referral ID Status Reason Start Date Expiration Date V isits Requested Visits Authorized [id number] Denied Specialty Services Required 03/08/2024 03/08/2025 999 0 Specialty Diagnoses / Procedures Referred By Contac t Referred To Contact Diagnoses Localized osteoporosis without current pathological fracture Procedures BONE DENSITY AXIAL (HIP, PELVIS, SPINE) Ata Hernandez P, DO [address] [place] [address] Referral ID Status Reason Start Date Expiration Date V isits Requested Visits Authorized [id number] Authorized 03/23/2024 04/17/2025 1 1 Specialty Diagnoses / Procedures Referred By Contac t Referred To Contact Radiology Diagnoses Other hydronephrosis Procedures Consult to Interventional Radiology John Bah MD [address] [place] [address] Ata Sullivan MD [address] [facility] [address] [place] [address] Referral ID Status Reason Start Date Expiration Date Visits Requested Visits Authorized [id number] Pending Review Perform Procedure 12/15/2023 12/14/2024 1 1 Instructions * Patient Instructions* SANCHEZ YING - 08/12/2019 2:00 PM EDT Assessment and Plan ICD-10-CM 1. Urinary tract infection with hematuria, site unspecified N39.0 POCT URINALYSIS DIPSTICK NON AUTOMATED R31.9 sulfamethoxazole-trimethoprim 800-160 MG per tablet 2. Chronic pain of left knee M25.562 AMB REFERRAL TO ORTHOPAEDIC SURGERY G89.29 3. Chronic fatigue R53.82 4. Mild episode of recurrent major depressive disorder F33.0 5. 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 For gout, begin with 2 tablets; then take 1 tablet in 1 hour; and then take twice daily until gout flair subsides. Once gout subsides, increase the allopurinol to 100 mg twice daily. Referral to Orthopedic Surgery, Dr. Del Toro for evaluation of left knee. Sanchez Choudhary [facility], was the scribe for today's note. I have performed all essential components of the history and physical exam. I have confirmed the diagnosis and developed a plan of care at this visit. I have reviewed the note following the visit and have added edits as appropriate to my evaluation and plan of care. Ata Hernandez DO documented in this encounter History of Present Illness * Ata Hernandez DO - 08/12/2019 2:00 PM EDT History of Present Illness Patient presents with Gout Here for flair up on gout. Bilateral feet, heels and ankles, red and swollen, started 05/13/19, andcould not walk and thought it would go away and then he got the flu and then got a second attack ofgout and it has not gotten better. He did take the Colchicine for 4 days BID and that did help and is still taking the Allopurinol. Bladder Infection Frequency, no burning and has a feeling of having to go bad and then does not go much, has to get up in the night several times, has had for past 3-4 months. Has not taken anything for this. Denies seeing blood in his urine. Fatigue C/O having fatigue really bad and not getting sleep, up and down to the bathroom nightly, feels he gets 4-5 hours of sleep in a 24 hour period and is sleeping off and on around the clock, never feelsrested. Does not take anything for sleep. Review of Systems Constitutional: Positive for fatigue. Negative for activity change, chills and fever. HENT: Negative for dental problem, ear pain, mouth sores, sinus pain and trouble swallowing. Eyes: Negative for discharge and visual disturbance. Respiratory: Negative for chest tightness, shortness of breath and wheezing. Cardiovascular: Negative for chest pain, palpitations and leg swelling. Gastrointestinal: Negative for abdominal pain and nausea. Endocrine: Negative for polydipsia, polyphagia and polyuria. Genitourinary: Positive for frequency, hematuria and urgency. Negative for difficulty urinating andflank pain. Musculoskeletal: Negative for arthralgias, back pain, myalgias and neck pain. Skin: Negative for color change and rash. Neurological: Negative for dizziness, syncope and light-headedness. Psychiatric/Behavioral: Negative for decreased concentration and sleep disturbance. All other systems reviewed and are negative. Vitals: Blood pressure 146/80, pulse 119, temperature 98 F (36.7 C), temperature source Oral, height 1.803 m (5' 11), weight (!) 144.2 kg (318 lb), SpO2 93 %. Physical Exam Vitals signs and nursing note reviewed. Constitutional: Appearance: He is well-developed. HENT: Right Ear: External ear normal. Left Ear: External ear normal. Eyes: Conjunctiva/sclera: Conjunctivae normal. Pupils: Pupils are equal, round, and reactive to light. Neck: Musculoskeletal: Normal range of motion. Cardiovascular: Rate and Rhythm: Normal rate and regular rhythm. Heart sounds: Normal heart sounds. No murmur. No friction rub. No gallop. Pulmonary: Effort: Pulmonary effort is normal. No respiratory distress. Breath sounds: Normal breath sounds. Abdominal: General: Bowel sounds are normal. There is no distension. Palpations: Abdomen is soft. Tenderness: There is no abdominal tenderness. Musculoskeletal: Normal range of motion. Skin: General: Skin is warm and dry. Coloration: Skin is not jaundiced. Findings: No erythema or rash. Neurological: Mental Status: He is alert and oriented to person, place, and time. Deep Tendon Reflexes: Reflexes are normal and symmetric. Psychiatric: Mood and Affect: Mood normal. Behavior: Behavior normal. Judgment: Judgment normal. Neurologic Exam Mental Status Oriented to person, place, and time. Cranial Nerves CN III, IV, Pupils are equal, round, and reactive to light. Assessment and Plan ICD-10-CM 1. Urinary tract infection with hematuria, site unspecified N39.0 POCT URINALYSIS DIPSTICK NON AUTOMATED R31.9 sulfamethoxazole-trimethoprim 800-160 MG per tablet 2. Chronic pain of left knee M25.562 AMB REFERRAL TO ORTHOPAEDIC SURGERY G89.29 3. Chronic fatigue R53.82 4. Mild episode of recurrent major depressive disorder F33.0 5. 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 For gout, begin with 2 tablets; then take 1 tablet in 1 hour; and then take twice daily until gout flair subsides. Once gout subsides, increase the allopurinol to 100 mg twice daily. Referral to Orthopedic Surgery, Dr. Del Toro for evaluation of left knee. Sanchez Choudhary [facility], was the scribe for today's note. I have performed all essential components of the history and physical exam. I have confirmed the diagnosis and developed a plan of care at this visit. I have reviewed the note following the visit and have added edits as appropriate to my evaluation and plan of care. Ata Hernandez DO documented in this encounter* aTri Krishnan - 09/06/2020 9:30 AM EDT Nurse Note: Review of Systems Constitutional: Negative. HENT: Negative. Eyes: Negative. Respiratory: Negative. Cardiovascular: Negative. Gastrointestinal: Negative. Endocrine: Negative. Genitourinary: Positive for difficulty urinating, dysuria, frequency and urgency. Musculoskeletal: Negative. Skin: Negative. Allergic/Immunologic: Negative. Neurological: Negative. Hematological: Negative. Psychiatric/Behavioral: Negative. Nursing Assessment: Physical Exam Patient states having difficulty urinating with dysuria. Urge incontinence, worse when laying down.Nocturia 8-10x/night. Had UTI about 1 1/2 ago, catheters were too painful and unable to be used by medical staff. Wants to make us aware that the pain of anything into the urethra is very unbearable.Taking Flomax and does not need refills at this time. PVR-120 ml * Caroline Barahona - 09/06/2020 9:30 AM EDT Lab Results Component Value Date APPEARANCE Turbid 09/06/2020 COLOR Yellow 09/06/2020 KETONES Trace 09/06/2020 SPECIFICGRAV 1.010 09/06/2020 BLOOD Large 09/06/2020 PH 7.5 (A) 09/06/2020 PROTEIN 2,000+ 09/06/2020 UROBILINOGEN 0.2 09/06/2020 NITRITE Neg 09/06/2020 LEUKOCYTE Moderate 09/06/2020 * Bam Lambert MD - 09/06/2020 9:30 AM EDT HISTORY OF PRESENT ILLNESS 75 y.o. male seen today as a new patient for evaluation of a bladder mass. He reports a history of prostate cancer with external beam radiation treatments with a former urologist 6-7 years ago. 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 He confirms a family history ofbladder cancer. He reports urinary frequency, weak stream, urgency and nocturia. He recently completed a course of suppressive antibiotics for a bladder infection. Today's PVR 120 cc. External PCP notes, BMP, PSA, urinalysis and renal ultrasound reviewed. ASSESSMENT AND PLAN 1. Bladder mass w/ hydronephrosis- Cystoscopy and transrectal ultrasound scheduled today. Urine sent for cytology. CT without contrast scan ordered today. 2. Hx of prostate cancer- most recent PSA was undetectable, continue to monitor closely. 3. Voiding dysfunction- likely related to radiation, will evaluate further pending scheduled procedure. 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 4. UTI- Trimethoprim prescribed, appropriate use and side effects reviewed. 5. Hydronephrosis. Possibly related to bladder cancer, further assessment via CT scan I reassured the patient that the cystoscopy can feel uncomfortable but should not be severely painful. He expressed confidence in swartz workup and plan. He understands that our plan of care will involve as we gather more information. He understands that at some point he may be referred back to Dr. Bah for chronic radiation stricture management. 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 Current Outpatient Medications Medication Sig Dispense Refill acetaminophen 500 MG tablet Take 500 mg by mouth every 6 hours as needed for Pain. allopurinol 100 MG tablet Take 1 tablet by mouth 2 times daily. 60 tablet 11 aspirin EC [address] take 81 mg by mouth daily.. colchicine (Colcrys) 0.6 MG tablet Take 1 tablet by mouth daily. Take 2 tablets by mouth at onset of gout take 1 tablet 1 hour later 1 tablet twice daily until gout subsides. (Patient not taking: Reported on 08/21/2020) 30 tablet 0 colchicine 0.6 MG tablet Take 2 tablets at onset of gout; then 1 tablet 1 hour later; then 1 tab twice daily until gout subsides (Patient not taking: Reported on 08/21/2020) 60 tablet 2 ibuprofen 400 MG tablet Take 400 mg by mouth every 6 hours as needed. levothyroxine 88 MCG tablet Take 1 tablet by mouth daily. 30 tablet 1 lisinopril (ZESTRIL) 20 MG Tab Take 1 tablet by mouth daily. (Patient not taking: Reported on 08/21/2020) 90 tablet 3 multivitamin tablet Take 1 tablet by mouth daily. sulfamethoxazole-trimethoprim 800-160 MG Tab per tablet Take 1 tablet by mouth 2 times daily. (Patient not taking: Reported on 08/21/2020) 20 tablet 0 Tamsulosin HCl 0.4 MG Cap capsule Take 1 capsule by mouth at bedtime. (Patient not taking: Reportedon 08/21/2020) 30 capsule 0 Tamsulosin HCl 0.4 MG capsule Take 1 capsule by mouth daily. 90 capsule 3 No current facility-administered medications for this visit. family history includes Alzheimer's in his father; Aneurysm in his mother; Hypertension in his mother. Past Medical History: Diagnosis Date Chicken pox Depression Dysmetabolic syndrome X Essential hypertension, benign Hyperlipidemia Hypothyroidism CHLOÉ (obstructive sleep apnea) Prostate cancer Past Surgical History: Procedure Laterality Date KNEE REPLACEMENT Right Social History Tobacco Use Smoking Status Former Smoker Types: Cigarettes Smokeless Tobacco Never Used Social History Substance and Sexual Activity Alcohol Use Yes Comment: rarely Physical Examination: Vital Signs: Smoking Status Former Smoker Constitutional: Oriented to person, place, and time. Appears well developed and well nourished. Eyes: conjunctiva/corneas clear, normal vision Ears/Nose/Mouth Eyes -EOMI. Ears - External normal ear. Hearing normal. Mouth - Lips normal color. Head/Neck: Face symmetrical, trachea midline, Head - Normocephalic. symmetrical. Normal ROM, neck supple. Pulmonary/chest: Normal respiratory effort, non-labored breathing. Abdominal/GI: Soft, non-tender, no organomegaly. Bowel sounds normal. Cardiovascular Normal rate and regular rhythm. No Murmurs or Rubs. Radial Pulses Normal. Circulation Normal. Neurologic: Alert and oriented x3. No focal neurological deficits noted. Extremities: No clubbing, cyanosis, or edema noted, no calf tenderness bilaterally. Skin: Warm and dry.Normal turgor, well-hydrated, no rashes noted. Psych: Normal mood and affect. Behavior is normal. 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, unspecified laterality Diagnosis Influenza vaccine administered- Primary Diagnosis Acute renal failure, unspecified acute renal failure type Diagnosis Decreased exercise tolerance Other general symptoms Shortness of breath on exertion Shortness of breath Diagnosis Shortness of breath on exertion Shortness of breath Diagnosis Bladder mass- Primary Neoplasm of uncertain behavior of bladder Urinary frequency Nocturia Personal history of malignant neoplasm of prostate Urinary tract infection without hematuria, site unspecified Diagnosis Bladder mass Neoplasm of uncertain behavior of bladder Chief Complaint [facility] and Reason for Visit Chief Complaint Admit Date SHORTNESS OF BREATH/SYED June 03 8:35pm SHORTNESS OF BREATH/SYED June 04 7:32am SHORTNESS OF BREATH/SYED June 05 7:39am SHORTNESS OF BREATH/SYED June 05 2:36pm SHORTNESS OF BREATH/SYED June 06 7:26am DIARRHEA W/DEHYDRATION AND WEAKNESS [facility] 2024 1:32pm DIARRHEA W/DEHYDRATION AND WEAKNESS [facility] 2024 8:03am DIARRHEA W/DEHYDRATION AND WEAKNESS [facility] 2024 3:57pm DIARRHEA W/DEHYDRATION AND WEAKNESS [facility] 2024 11:07am INFLUENZA A, HYPOXIA July 14, 2024 1:57pm INFLUENZA A, HYPOXIA July 14, 2024 2:37pm INFLUENZA A, HYPOXIA July 15, 2024 5:48pm INFLUENZA A, HYPOXIA July 16, 2024 1:31pm BLOOD IN URINE August 13, 2024 5:0 4pm Reason for Visit Admit Date End-stage renal disease June 05 2:36pm Cough June 05, 2024 2: 36pm Generalized weakness June 05, 2024 2 :36pm RSV (acute bronchiolitis due to respiratory syncytial virus) June 05, 2024 2:36pm Shortness of breath June 05, 2024 2: 36pm Abnormal finding on urinalysis June 032024 1:32pm Generalized weakness June 28, 2024 1:32pm Diarrhea June 28, 2024 1 :32pm Enterocolitis June 28, 2024 1 :32pm ESRD on hemodialysis June 28, 2024 1:32pm End-stage renal disease July 14 025 1:57pm Hypoxia July 14, 2024 1:57pm Influenza A July 14, 2024 1:57pm SOB (shortness of breath) July 14, 2024 1:57pm Chief Complaint Admit Date SHORTNESS OF BREATH/SYED June 03 8:35pm SHORTNESS OF BREATH/SYED June 04 7:32am SHORTNESS OF BREATH/SYED June 05 7:39am SHORTNESS OF BREATH/SYED June 05 2:36pm SHORTNESS OF BREATH/SYED June 06 7:26am DIARRHEA W/DEHYDRATION AND WEAKNESS [facility] 2024 1:32pm DIARRHEA W/DEHYDRATION AND WEAKNESS [facility] 2024 8:03am DIARRHEA W/DEHYDRATION AND WEAKNESS [facility] 2024 3:57pm DIARRHEA W/DEHYDRATION AND WEAKNESS [facility] 2024 11:07am INFLUENZA A, HYPOXIA July 14, 2024 1:57pm INFLUENZA A, HYPOXIA July 14, 2024 2:37pm INFLUENZA A, HYPOXIA July 15, 2024 5:48pm INFLUENZA A, HYPOXIA July 16, 2024 1:31pm BLOOD IN URINE August 13, 2024 5:0 4pm syncope August 16, 2024 4:3 9pm Chief Complaint Admit Date INFLUENZA A, HYPOXIA July 14, 2024 1:57pm INFLUENZA A, HYPOXIA July 14, 2024 2:37pm INFLUENZA A, HYPOXIA July 15, 2024 5:48pm INFLUENZA A, HYPOXIA July 16, 2024 1:31pm BLOOD IN URINE August 13, 2024 5:0 4pm syncope August 16, 2024 4:3 9pm COMPLAINT October 22, 2024 3:30p m urinary symptoms November 09, 2024 1:15 pm Reason for Visit Admit Date End-stage renal disease July 14 2 025 1:57pm Hypoxia July 14, 2024 1:57pm Influenza A July 14, 2024 1:57pm SOB (shortness of breath) July 14, 2024 1:57pm Chief Complaint Admit Date BLOOD IN URINE August 13, 2024 5:0 4pm syncope August 16, 2024 4:3 9pm COMPLAINT October 22, 2024 3:30p m urinary symptoms November 09, 2024 1:15 pm jamison December 01, 2024 10:51 am Chief Complaint Admit Date syncope August 16, 2024 4:3 9pm COMPLAINT October 22, 2024 3:30p m urinary symptoms November 09, 2024 1:15 pm jamison December 01, 2024 10:51 am catheter dislodged December 13, 2024 10:4 1am Additional Source Comments (unrecognized sect ion and content) No Status Records FoundNo Status Records FoundNo Status Records FoundNo Status Records FoundNo Status Records FoundNo Status Records FoundNo Status Records FoundNo Status Records FoundNo Status Records FoundNo Status Records FoundNo Status Records FoundNo Status Records FoundNo Status Records FoundNo Status Records FoundNo Status Records FoundNo Status Records FoundNo Status Records Found INFORMATION SOURCE (unrecogn ized section and content) DATE CREATED AUTHOR 11/26/2017 [facility] DATE CREATED AUTHOR AUTHOR'S ORGANIZ ATION 05/11/2018 [facility] DATE CREATED AUTHOR AUTHOR'S ORGANIZ ATION 05/03/2021 [facility] DATE CREATED AUTHOR AUTHOR'S ORGANIZ ATION 01/20/2023 [facility] DATE CREATED AUTHOR AUTHOR'S ORGANIZ ATION 02/05/2023 [employer] DATE CREATED AUTHOR AUTHOR'S ORGANIZ ATION 01/10/2024 [facility] DATE CREATED AUTHOR AUTHOR'S ORGANIZ ATION 02/16/2024 [facility] DATE CREATED AUTHOR AUTHOR'S ORGANIZ ATION 03/13/2024 [facility] DATE CREATED AUTHOR AUTHOR'S ORGANIZ ATION 04/03/2024 [facility] DATE CREATED AUTHOR AUTHOR'S ORGANIZ ATION 04/12/2024 [facility] DATE CREATED AUTHOR AUTHOR'S ORGANIZ ATION 05/18/2024 [facility] DATE CREATED AUTHOR AUTHOR'S ORGANIZ ATION 08/26/2024 [facility] DATE CREATED AUTHOR AUTHOR'S ORGANIZ ATION 11/03/2024 [facility] DATE CREATED AUTHOR AUTHOR'S ORGANIZ ATION 11/09/2024 [facility] DATE CREATED AUTHOR AUTHOR'S ORGANIZ ATION 11/21/2024 [facility] DATE CREATED AUTHOR AUTHOR'S ORGANIZ ATION 12/18/2024 [facility] DATE CREATED AUTHOR AUTHOR'S ORGANIZ ATION 12/20/[address] [facility] Reason for Visit (unrecogniz ed section and content) Reason Comments Gout Here for flair up on gout. Bilateral feet, heals and ankles, red and swollen, started 05/13/19, and could not walk and thought it would go away and then he got the flu and then got a second attack of gout and it has not gotten better. He did take the Colchicine for 4 days BID and that did help and is still taking the Allopurinol. Bladder Infection Frequency, no burnin g and has a feeling of having to go bad and then does not go much, has to get up in the night several times, has had for past 3-4 months. Has not taken anything for this. Denies seeing blood in his urine. Fatigue C/O having fatigue r eally bad and not getting sleep, up and down to the bathroom nightly, feels he gets 4-5 hours of sleep in a 24 hour period and is sleeping off and on around the clock, never feels rested. Does not take anything for sleep. Reason Comments Immunization/Injection Here for his flu vaccine. Status Reason Specialty Diagnoses / Procedures Re ferred By Contact Referred To Contact Closed Ultrasound Diagnoses Acute renal failure, unspecified acute renal failure type Procedures US RENAL RETROPERITONEAL Ata Hernandez, DO [address] [place] [id number] [facility] [address] [place] [address] Status Reason Specialty Diagnoses / Procedures Referred By Contact Referred To Contact Closed Nuclear Medicine Diagnoses Decreased exercise tolerance Shortness of breath on exertion Procedures NUC MYOCARD PERF STRESS MIBI PHARM NJ CHG MYOCARDIAL SPECT MULTIPLE STUDIES CHG MYOCARDIAL SPECT MULTIPLE STUDIES-T NJ CARDIAC STRESS TST,INTERP/REPT ONLY NJ CV STRS TST XERS&/OR RX CONT ECG W/O I&R Haus, Ata P, DO [address] [place] [id number] [facility] [address] [place] [phone] Status Reason Specialty Diagnoses / Procedures Referred By Contact Referred To Contact Closed Cardiovascular Medicine Diagnoses Shortness of breath on exertion Procedures ECHOCARDIOGRAM NJ ECHO HEART XTHORACIC,COMPLETE W DOPPLER HausAta P, DO [address] [place], [place] [id number] [facility] [address] [place], [place] [id number] Reason Comments New Patient Bladder Tumor Status Reason Specialty Diagnoses / Procedures Referred By Contact Referred To Contact Closed Computerized Tomography Scan Diagnoses Bladder mass Procedures CT ABDOMEN/PELVIS WITHOUT CONTRAST CHG CT SCAN,ABDOMENT AND PELVIS,W/O CONTRAST Bam Lambert MD [address] Scan [address] [place] [phone] Reason Comments Cystoscopy w/TRUS Reason Comments Urinary Frequency Pt. is here today d/ t painful urination and urinary frequency that started last Summer. Waking up often at night to go. Slow flow urination as well. Pt. has been taking Tylenol for the pain. Pt. drinks maybe a quart of water a day. Pt. drinks Dt. Pepsi with each meal. Knee Pain Pt. has left knee pa in that he was originally scheduled to have a consultation for surgery with Dr. Orantes, but got canceled by [facility] and he hasn't heard back from their office since. This was back in July of last year. Pt. is taking Tylenol for pain. Walking makes the pain worse. Sleep Apnea Pt. ordered new CPAP supplies, last Spring, but he received a large bill and was informed that the medical supply was no longer in his network, so he stopped using his CPAP at that time bc he could not afford it. Pt. is struggling with SOB, weakness, and fatigued since not using it. Especially with exertion. Pt. does not use oxygen. Gas Pt. has been struggl ing with increased gas since last Summer. Pt. unable to travel because of flatulence. Feels sometimes like he is going to float away. Pt. hasn't tried anything for the gas. Status Reason Specialty Diagnoses / Procedures Re ferred By Contact Referred To Contact Diagnoses Urethral stricture Bladder tumor Hydronephrosis Urethral stricture [N35.919] Bladder tumor [D49.4] Hydronephrosis [N13.30] Procedures NJ CYSTOURETHROSCOPY,FULGUR >5CM LESN NJ CYSTO/URETERO/PYELOSCOPY, DX NJ CYSTOSCOPY,DIR VIS INT URETHROTOMY CYSTOURETHROSCOPY W/ FULGURATION/RESECTION LESION BLADDER (TURB) CYSTOURETHROSCOPY W/ URETEROSCOPY/PYELOSCOPY DIAGNOSTIC CYSTOURETHROSCOPY W/ INTERNAL URETHROTOMY (DVIU) Status Reason Specialty Diagnoses / Procedures Re ferred By Contact Referred To Contact Closed Ultrasound Diagnoses Hydronephrosis Stricture of male urethra, unspecified stricture type Procedures US RENAL RETROPERITONEAL Sharmila Espinoza, CLINICAL TRIAL HEAD [address] [place] [address] [facility] [address] [place] [address] Reason Comments Follow-up post op Status Reason Specialty Diagnoses / Procedures Re ferred By Contact Referred To Contact Diagnoses Ureteral stricture Bladder mass Ureteral stricture [N13.5] Bladder mass [N32.89] Procedures NJ CYSTOURETHROSCOPY,FULGUR >5CM LESN NJ CYSTO/URETERO/PYELOSCOPY, DX NJ CYSTOSCOPY,INSERT URETERAL STENT CYSTOURETHROSCOPY W/ FULGURATION/RESECTION LESION BLADDER (TURB) CYSTOURETHROSCOPY W/ URETEROSCOPY/PYELOSCOPY DIAGNOSTIC CYSTOURETHROSCOPY W/ INSERTION STENT URETER Reason Comments Follow-up void trail Reason Comments Follow-up Post op-path review Reason Comments Stent Removal Reason Comments Follow-up Reason Comments New Patient Other Recurrent sharan UT I Reason Comments Follow-up Infection urinary infection Reason Comments Follow-up 4wk f/u Reason Comments Obstructive Sleep Apnea Specialty Diagnoses / Procedures Referred By Zak gerber Referred To Contact Diagnoses Obstructive sleep apnea Procedures SCHEDULE HOME SLEEP STUDY Ata Hernandez, DO [address] [place] [address] Referral ID Status Reason Start Date Expiration Date Visits Re quested Visits Authorized [id number] Open 04/23/2021 05/18/2022 1 1 Reason Comments Follow-up Infection acute cystitis Reason Comments Shortness of Breath Patient c/o SOB with lite activity at home. He fatigues very easy with dyspnea with sitting up and talking. OT says pulxe stays 89-92% at rest. Says when he was in the hospital in October he was diagnosed with pneumonia. Kidney Infection States he was taken by squad to [facility] in October due to he was mentally and physically depleted. Says he had a bad kidney infection/stones. Stents were placed. Says his infection was so bad he doesn't remember much while being in the hospital until the infection started improving. He currently has a jamison and is following up with urology. Reason Comments Shortness of Breath Patient states his S OB is worsening. Admitted at [facility] 01/10-01/14. Patient states he still has not yet received home 02. Muscle Weakness Patient reports that he is becoming weaker has worsened since his last visit. Last hospital admission took a toll on him he states. Hydronephrosis He was in [facility] was found to have left hydronephrosis. He had subsequent stent placement by Dr. Bah and follows with him this coming Friday. Reason Comments 1 month follow up Rev labs 02/28 Reason Comments New Patient Anemia Reason Comments Fall Pt states he fell do wn 3 steps and landed on left hip. + shortening and rotation to left leg. Denies hitting head or LOC Specialty Diagnoses / Procedures Referred By Zak gerber Referred To Contact Diagnoses Closed fracture of left hip, initial encounter ([facility]) Acute kidney injury superimposed on chronic kidney disease ([facility]) Pneumonia due to infectious organism, unspecified laterality, unspecified part of lung Procedures No coded services entered Ira Walter MD [address] [place] [address] Antonieta Icu [address] [place] [address] Referral ID Status Reason Start Date Expiration Date Visits Re quested Visits Authorized [id number] 1 1 Specialty Diagnoses / Procedures Referred By Contac t Referred To Contact Diagnoses ESRD (end stage renal disease) ([facility]) ESRD (end stage renal disease) ([facility]) [N18.6] Procedures Tunnel Dialysis Catheter Insertion Tiana De León, DO [address] [place] [address] [facility] [address] [facility] 1st [place] [address] Referral ID Status Reason Start Date Expiration Date Visits Re quested Visits Authorized [id number] 1 1 Reason Comments Other cysto bilateral RPG bilateral Ureteroscopy Right stent change, Attempt left stent placement [id number] Reason Comments Post-op POV L HipX-ray Pain Rate 0 Specialty Diagnoses / Procedures Referred By Contac t Referred To Contact Diagnoses Iron deficiency anemia, unspecified iron deficiency anemia type Procedures DIAGNOSTIC UPPER ENDOSCOPY NJ ESOPHAGOGASTRODUODENOSCOPY TRANSORAL DIAGNOSTIC Joaquin Tillman Jr., DO [address] [place] [address] Referral ID Status Reason Start Date Expiration Date V isits Requested Visits Authorized [id number] Auth Not Needed 03/26/2023 04/19/2024 1 1 Reason Comments Pain Post-op Specialty Diagnoses / Procedures Referred By Contact Referred To Contact Orthopaedic Surgery / Orthopedic Surgery Diagnoses Left hip pain History of left hip hemiarthroplasty Procedures Follow Up In Orthopaedic Surgery Judy Ley MD [address] [place] [address] Referral ID Status Reason Start Date Expiration Date V isits Requested Visits Authorized [id number] Authorized 04/22/2023 04/21/2024 1 1 Specialty Diagnoses / Procedures Referred By Contac t Referred To Contact Radiology Diagnoses History of left hip hemiarthroplasty Procedures XR hip left with pelvis when performed 2 or 3 views Judy Ley MD [address] [place] [address] Referral ID Status Reason Start Date Expiration Date Visits Requested Visits Authorized [id number] Pending Review Perform Procedure 3 05/22/2024 1 1 Reason Comments Dizziness Pt states for radha l years he's had dizziness when he moves. States he is here today because the dizziness has gotten worse. States his blood pressure drops and his heart rate goes up when he stands or rolls over. 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 Fell at the end of March which is why he's in a residential now. Reason Comments Fever Low grade x1 day, or thostatic hypotension, recent UTI Reason Comments Evaluate Specialty Diagnoses / Procedures Referred By Zak gerber Referred To Contact Cardiology Diagnoses ESRD (end stage renal disease) ([facility]) Nan De León CNP [address] [place] [id number] [address] [place] [address] Referral ID Status Reason Start Date Expiration Date V isits Requested Visits Authorized [id number] Pending Review 05/23/2023 05/22/2024 1 1 Referral ID Status Reason Start Date Expiration Date Visits Requested Visits Authorized [id number] Pending Review Perform Procedure 3 05/22/2024 1 1 Specialty Diagnoses / Procedures Referred By Zak gerber Referred To Contact Diagnoses Other hydronephrosis Urinary retention Other hydronephrosis [N13.39] Urinary retention [R33.9] Procedures NJ CYSTO W/INSERT URETERAL STENT NJ CYSTOSTOMY CYSTOTOMY W/DRAINAGE Cystoscopy with bilateral RPG bilateral ureteroscopy and bilateral Insertion Stent Ureter Cysto with SP tube placement John Bah MD [address] [place] [address] [address] Referral ID Status Reason Start Date Expiration Date Visits Re quested Visits Authorized [id number] 1 1 Reason Comments Post-op Patient had a HEMIAR THROPLASTY HIP PARTIAL on 04/02/2023, Patient states that he does not think his muscles and tendons are healing, he can only bear weight very little. He is no longer getting any therapy services. Pain Patient had a HEMIAR THROPLASTY HIP PARTIAL on 04/02/2023, Patient states that he does not think his muscles and tendons are healing, he can only bear weight very little. He is no longer getting any therapy services. Reason Comments Pre-op Exam Fistula placement w/ Dr. Jacob Specialty Diagnoses / Procedures Referred By Zak gerber Referred To Contact Cardiology Diagnoses Preop examination Katrina Gardner, CLINICAL TRIAL HEAD [address] [place] [address] [facility] [address] [facility] [place] [address] Referral ID Status Reason Start Date Expiration Date V isits Requested Visits Authorized [id number] Pending Review 07/16/2023 07/15/2024 1 1 Reason Comments Follow-up Patient is here for FUV regarding pain in left leg muscles. PatinetHad left hip sx 04/02/2023, He states the hip itself is good, no pain, His pain is more in his muscles and tendons. He is able to put a little bit of weight on his left leg now, he was not able to do that about 2 weeks ago. Pain Patient is here for FUV regarding pain in left leg muscles. PatinetHad left hip sx 04/02/2023, He states the hip itself is good, no pain, His pain is more in his muscles and tendons. He is able to put a little bit of weight on his left leg now, he was not able to do that about 2 weeks ago. Referral ID Status Reason Start Date Expiration Date Visits Requested Visits Authorized [id number] Pending Review Perform Procedure 07/25/2023 07/24/2024 1 1 Reason Comments Follow-up Reason Comments 3 month follow up Specialty Diagnoses / Procedures Referred By Zak gerber Referred To Contact Radiology Diagnoses End stage renal disease (Multi) Other hydronephrosis Procedures IR placement of nephrostomy catheter IR GI G tube placement NJ INSERT GASTROSTOMY TUBE PERCUTANEOUS John Bah MD [address] [place] [address] Referral ID Status Reason Start Date Expiration Date Visits Requested Visits Authorized [id number] Authorized Perform Procedure 09/10/2023 09/09/2024 1 1 Reason Comments 6 week follow up Specialty Diagnoses / Procedures Referred By Contac t Referred To Contact Radiology Diagnoses ESRD (end stage renal disease) (Multi) Procedures IR placement of nephrostomy catheter Consult to Interventional Radiology John Bah MD [address] [place], [place] [id number] Referral ID Status Reason Start Date Expiration Date Visits Requested Visits Authorized [id number] Authorized Perform Procedure 09/12/2023 09/11/2024 1 1 Reason Comments Other Discuss nephrostomy tubes with conversion to NUS Dx: Hydronephrosis Specialty Diagnoses / Procedures Referred By Contact Referred To Contact Interventional Radiology Diagnoses Hydronephrosis John Bah MD [address] [place], [place] [id number] Arnulfo Obregon DO [facility] [address] [place] [address] Referral ID Status Reason Start Date Expiration Date V isits Requested Visits Authorized [id number] Closed Specialty Services Required/Rhea ent's Best Interest 12/19/2023 12/18/2024 1 1 Reason Comments Follow-up Left Hip Hemiarthrop lasty on 06/12/22 Reason Comments Hip Injury Pt states that one y ear ago he fell and broke his hip. Pt has been living in a residential for the last year and also started dialysis last April. Pt is here today to inform of changes that have been made to his medications and health care. Pt did have recent labs done. Blood in Urine Pt states he had a k idney stent and since this surgery a few weeks ago he has had blood in his urine. PT states he does need to make an appointment with about this. Kidney Problem Here for follow-up f or history of end-stage renal disease on hemodialysis Friday, hypertension, hyperlipidemia, obstructive sleep apnea, anemia of chronic disease, GERD, recurrent UTI, prostate cancer, hydronephrosis, BPH with obstructive lower urinary symptoms, chronic indwelling Jamison, right ureteral stent and left nephrostomy tube. Also history of MRSA of fistula. Reason Comments Blood in Urine Patient states he elise d his jamison catheter changed today, complains of pain in penis since and blood in urine Reason Comments Hydronephrosis Reason Comments GERD Pt comes in [facility] from [facility] for bloating. Pt states for the last few wks he has been having what he thinks indigestion. Pt states that he is having epigastric pain that has been getting worse. Pt states that when he takes a deep breath that he has pain across his diaphragm and into his back. Reason Comments Hip Pain C/o intermittent lef t hip pain. Had a left hip hemiarthroplasty on 04-01-24. Says the hip mainly hurts when he is up walking. Laying down usually relieves the discomfort. Chronic Kidney Disease Here for a follow up. He currently has a jamison catheter and does 3 days a week. He sees Dr. Bah. Reason Comments Thyroid Problem Hyperlipidemia Gout Reason Comments New Patient Retention Specialty Diagnoses / Procedures Referred By Contbrando t Referred To Contact Urology Diagnoses Urinary retention Ata Hernandez, [address] [place] [id number] Phone: tel: fax: Darien Russell MD [address] [place] [id number] Phone: tel: fax: Referral ID Status Reason Start Date Expiration Date V isits Requested Visits Authorized [id number] New Request 09/01/2024 09/26/2025 1 1 Reason Comments Follow-up RETENTION/HYDRO Addendum Note - Caroline Barahona - 09/06/2020 9:30 AM EDT Miscellaneous Notes (unrecog nized section and content) Addended by: CAROLINE BARAHONA on: 09/06/2020 11:28 AM Modules accepted: Orders documented in this encounter Scheduled Active and Recently Administ ered Medications (unrecognized section and content) Medication Order 10/15/2020 10/16/2020 10/17/2020 ceFAZolin (ANCEF) 2 g in dextrose 100 mL premix IVPB (COMPLETED) 2 g, Intravenous, Administer over 30 Minutes, 60 MIN PRE-OP, 1 dose, On Fri10/17/20 at 0745, Pre-op/Pre-Proc 1048 (Given - Provid er: YANG Irby) hydroCODone-acetaminophen (NORCO) 5-325 MG per tablet 1 tablet (COMPLETED) 1 tablet, Oral, ONCE, 1 dose, On Fri10/17/20 at 1400 1336 (Given - Provid er: Shanae Alamo RN) oxybutynin (DITROPAN) tablet 5 mg (COMPLETED) 5 mg, Oral, ONCE, 1 dose, On Fri10/17/20 at 1400 1336 (Given - Provid er: Shanae Alamo RN) Continuous Medication Order 10/15/2020 10/16/2020 10/17/2020 sodium chloride 0.9% IV solution Intravenous, at 100 mL/hr, CONTINUOUS, Starting on Fri10/17/20 at 0745, Until Fri10/17/20 at 1634, Pre-op/Pre-Proc 0811 ($$New Bag$$ - Provider: Darling Barton RN)1130 (Anesthesia Volume Adjustment - Provider: YANG Irby) PRN Medication Order 10/15/2020 10/16/2020 10/17/2020 iohexol (OMNIPAQUE) 300 MG/ML vial NEEDED, Starting on Fri10/17/20 at 1107, Until Fri10/17/20 at 1634, Intra-op/Intra-Proc 1107 (Given - Provid er: Bam Lambert MD) sodium chloride 0.9 % irrigation NEEDED, Starting on Fri10/17/20 at 1102, Until Fri10/17/20 at 1634, Intra-op/Intra-Proc 1102 (Given - Provid er: Bam Lambert MD) Scheduled Medication Order 04/05/2023 04/06/2023 04/07/2023 allopurinol (Zyloprim) tablet 100 mg 100 mg, oral, Daily, First dose (after last reorder) on Fabiana 04/03/23 at 1130 0900 (Not Given - Provider: Qian Larios RN - Reason: See Provider Order - Comment: NPO) 921 (Given - Provider: Qian Larios RN) 822 (Given - Provider: Melida London, KAREN) aspirin EC tablet 325 mg 325 mg, oral, 2 times daily, First dose on Fri04/02/23 at 2100, Phase II/On Unit, Do not crush, chew, or split. 0900 (Not Given - Provider: Qian Larios RN - Reason: See Provider Order - Comment: NPO)2104 (Given - Provider: Tessy Quiroz, RN) 921 (Given - Provider: Qian Larios RN)2114 (Given - Provider: Tessy Quiroz RN) 822 (Given - Provider: Melida London, KAREN)2099 (Due) bisacodyl (Dulcolax) suppository 10 mg (COMPLETED) 10 mg, rectal, Once, On 04/05/23 at 1100, For 1 dose 1340 (Given - Provider: Qian Larios RN) calcitriol (Rocaltrol) capsule 0.25 mcg 0.25 mcg, oral, Daily, First dose on Fri03/31/23 at 1645 0900 (Not Given - Provider: Qian Larios RN - Reason: See Provider Order - Comment: NPO) 921 (Given - Provider: Qian Larios RN) 822 (Given - Provider: Melida London, KAREN) darbepoetin kacie in polysorbat (Aranesp) injection 60 mcg (COMPLETED) 60 mcg, subcutaneous, Once, On 04/05/23 at 1100, For 1 dose, Indications: anemia 1232 (Given - Provider: Qian Larios RN) ferrous sulfate 325 (65 Fe) MG tablet 65 mg of iron 65 mg of iron, oral, 2 times daily, First dose on Fri03/31/23 at 2100 0900 (Not Given - Provider: Qian Larios RN - Reason: See Provider Order - Comment: NPO)2104 (Given - Provider: Tessy Quiroz RN) 0922 (Given - Provider: Qian Larios RN)2115 (Given - Provider: Tessy Quiroz, RN) 0823 (Given - Provider: Melida London, KAREN)2100 (Due) flu vaccine, quadrivalent, high-dose, preservative free, age 65y+ (FLUZONE) 0.7 mL, intramuscular, During hospitalization, Starting on Fri03/31/23 at 1720, For 1 dose fluticasone (Flonase) nasal spray 2 spray 2 spray, Each Nostril, Daily, First dose on Fri03/31/23 at 1625, Shake gently. Before first use, prime pump (press 6 times until fine spray appears). After use, clean tip and replace cap. 1119 (Given - Provider: Qian Larios RN) 0922 (Given - Provider: Qian Larios RN) 0900 (Not Given - Provider: Melida London RN - Reason: Patient/family refused) heparin (porcine) injection 5,000 Units 5,000 Units, subcutaneous, Every 8 hours, First dose on Fri03/31/23 at 1645 0044 (Given - Provider: Kb Wood RN)1100 (Given - Provider: Qian Larios RN)1759 (Given - Provider: Qian Larios RN) 0813 (Given - Provider: Qian Larios RN)1111 (Not Given - Provider: Qian Larios RN - Reason: Other - Comment: given at 0830)1555 (Given - Provider: Qian Larios RN)2339 (Given - Provider: Tessy Quiroz RN) 0045 (Not Given - Provider: Tessy Quiroz RN - Reason: Other - Comment: given earlier)0823 (Given - Provider: Melida London, RN)1645 (Due) iron sucrose (Venofer) 200 mg in sodium chloride 0.9% 100 mL IVPB (COMPLETED) 200 mg, intravenous, at 200 mL/hr, Administer over 30 Minutes, Once, On 04/05/23 at 1045, For 1 dose 1240 (New Bag - Provider: Qian Larios RN)1310 (Stopped - Provider: Qian Larios RN) isosorbide mononitrate ER (Imdur) 24 hr tablet 30 mg 30 mg, oral, Daily, First dose on Fri03/31/23 at 1645, Do not crush, chew, or split. 0600 (Dose Auto Held - Provider: Giovanni Pardo MD) 0600 (Dose Auto Held - Provider: Giovanni Pardo MD) 0600 (Dose Auto Held - Provider: Giovanni Pardo MD) levothyroxine (Synthroid, Levoxyl) tablet 88 mcg 88 mcg, oral, Daily before breakfast, First dose on Fri04/01/23 at 0700 0700 (Not Given - Provider: Kb Wood RN - Reason: NPO) 0636 (Given - Provider: Tessy Quiroz RN) 0637 (Given - Provider: Tessy Quiroz RN) melatonin tablet 3 mg 3 mg, oral, Daily, First dose on Fri03/31/23 at 1900 1900 (Not Given - Provider: Qian Larios RN - Reason: Patient/family refused)2105 (Given - Provider: Tessy Quiroz RN - Comment: pt wanted at a later time) 1847 (Given - Provider: Qian Larios RN) 1900 (Due) multivitamin with minerals 1 tablet 1 tablet, oral, Daily, First dose on Fri03/31/23 at 1700 0900 (Not Given - Provider: Qian Larios RN - Reason: See Provider Order - Comment: NPO) 0922 (Given - Provider: Qian Larios RN) 0823 (Given - Provider: Melida London, KAREN) polyethylene glycol (Glycolax, Miralax) packet 17 g 17 g, oral, Daily, First dose on Fri03/31/23 at 1645, Bowel Regimen - for prevention of constipation. 0900 (Not Given - Provider: Qian Larios RN - Reason: See Provider Order - Comment: NPO) 0922 (Given - Provider: Qian Larios RN) 0823 (Given - Provider: Melida London, KAREN) predniSONE (Deltasone) tablet 20 mg 20 mg, oral, Daily, First dose on Fri04/06/23 at 1145 1203 (Given - Provider: Qian Larios RN) 0823 (Given - Provider: Melida London RN) psyllium (Metamucil) 3.4 gram packet 1 packet 1 packet, oral, Daily, First dose on Fri04/02/23 at 1615, Phase II/On Unit, Bowel Regimen - for prevention of constipation. 0900 (Not Given - Provider: Qian Larios RN - Reason: See Provider Order - Comment: NPO) 0922 (Given - Provider: Qian Larios RN) 0900 (Not Given - Provider: Melida London RN - Reason: Patient/family refused) sodium bicarbonate tablet 1,300 mg 1,300 mg, oral, 2 times daily, First dose on Fri04/01/23 at 1115 0900 (Not Given - Provider: Qian Larios RN - Reason: See Provider Order - Comment: NPO)210 (Given - Provider: Tessy Quiroz RN) 1109 (Given - Provider: Qian Larios RN)211 (Given - Provider: Tessy Quiroz RN) 0823 (Given - Provider: Melida London RN)2100 (Due) tiZANidine (Zanaflex) tablet 2 mg 2 mg, oral, Once, On Fri03/31/23 at 2230, For 1 dose traZODone (Desyrel) tablet 100 mg 100 mg, oral, Nightly, First dose on Fri03/31/23 at 2100 2106 (Given - Provider: Tessy Quiroz RN) 211 (Given - Provider: Tessy Quiroz RN) 2100 (Due) PRN Medication Order 04/05/2023 04/06/2023 04/07/2023 acetaminophen (Tylenol) oral liquid 650 mg(Linked Group 1) 650 mg, oral, Every 4 hours PRN, pain mild (1-3), first line, Starting on Fri03/31/23 at 1640, Give oral liquid per feeding tube if present. acetaminophen (Tylenol) suppository 650 mg(Linked Group 1) 650 mg, rectal, Every 4 hours PRN, pain mild (1-3), first line, Starting on Fri03/31/23 at 1640, Give rectally if unable to administer by mouth or feeding tube., If ordered PRN for pain, nurse is permitted to administer this medication for higher pain scores based on patient preference? Yes acetaminophen (Tylenol) tablet 650 mg(Linked Group 1) 650 mg, oral, Every 4 hours PRN, pain mild (1-3), first line, Starting on Fri03/31/23 at 1640, If ordered PRN for pain, nurse is permitted to administer this medication for higher pain scores based on patient preference? Yes albuterol 2.5 mg /3 mL (0.083 %) nebulizer solution 2.5 mg 2.5 mg, nebulization, Every 6 hours PRN, wheezing, shortness of breath, Starting on Fri03/31/23 at 1710 0346 (Given - Provider: Chinedu Vera, FIRE EXTINGUISHER MECHANIC)0641 (Given - Provider: Skyla Miller RRT)1130 (Given - Provider: Skyla Miller RRT)1826 (Given - Provider: Margarita Carolina RRT)2358 (Not Given - Provider: Margarita Carolina RRT - Reason: Other - Comment: tx not needed at this time) 0627 (Given - Provider: Skyla Miller RRT)1143 (Given - Provider: Skyla Miller RRT)1827 (Given - Provider: Ella Johns) 0039 (Not Given - Provider: Ella Johns - Reason: Other - Comment: PT SLEEPING. PRN TX NOT NEEDED AT THIS TIME)0558 (Given - Provider: Talita Earl CRTT) cyclobenzaprine (Flexeril) tablet 5 mg 5 mg, oral, Daily PRN, muscle spasms, Starting on Fri04/01/23 at 0752 ondansetron (Zofran) injection 4 mg 4 mg, intravenous, Every 6 hours PRN, nausea/vomiting, first line, Starting on Fri04/04/23 at 0917, When administering via IV Push, administer over 3-5 minutes. oxyCODONE (Roxicodone) immediate release tablet 5 mg 5 mg, oral, Every 6 hours PRN, pain moderate (4-6), first line, Starting on Fri03/31/23 at 1732, If ordered PRN for pain, nurse is permitted to administer this medication for higher pain scores based on patient preference? Yes 1346 (Given - Provider: Qian Larios RN)2111 (Given - Provider: Tessy Quiroz RN - Comment: L hip pain) oxygen (O2) therapy inhalation, Continuous PRN - O2/gases, other, Starting on Fri03/31/23 at 1818, Device: Nasal Cannula, Rate in liters per minute: 2 LPM, Keep O2 Sat Above: 90% 0346 (Start - Provider: Chinedu Vera, FIRE EXTINGUISHER MECHANIC)0640 (Start - Provider: Skyla Miller RRT)1130 (Start - Provider: Skyla Miller RRT)1829 (Start - Provider: Margarita Carolina RRT)2359 (Rate/Dose Change - Provider: Margarita Carolina RRT) 0627 (Start - Provider: Skyla Miller RRT)1143 (Rate/Dose Verify - Provider: Skyla Miller RRT - Comment: Room air)1832 (Rate/Dose Verify - Provider: Ella Johns) 0040 (Rate/Dose Verify - Provider: Ella Johns)0559 (Rate/Dose Verify - Provider: Talita Earl CRTT) Linked Groups Order Group 1: acetaminophen (Tylenol) tablet 650 mgJump to med 650 mg, oral, Every 4 hours PRN, pain mild (1-3), first line, Starting on Fri03/31/23 at 1640
If ordered PRN for pain, nurse is permitted to administer this medication for higher pain scores based on patient preference? Yes Or acetaminophen (Tylenol) oral liquid 650 mgJump to med 650 mg, oral, Every 4 hours PRN, pain mild (1-3), first line, Starting on Fri03/31/23 at 1640
Give oral liquid per feeding tube if present.
Or acetaminophen (Tylenol) suppository 650 mgJump to med 650 mg, rectal, Every 4 hours PRN, pain mild (1-3), first line, Starting on Fri03/31/23 at 1640
Give rectally if unable to administer by mouth or feeding tube.
If ordered PRN for pain, nurse is permitted to administer this medication for higher pain scores based on patient preference? Yes PRN Medication Order 04/08/2023 04/09/2023 04/10/2023 fentaNYL PF (Sublimaze) injection (CANCELED) As needed, Starting on Fabiana 04/10/23 at 1333, Intraprocedure 1333 (Given - Provid er: Laurel Marsh RN - Comment: sedation)1338 (Given - Provider: Laurel Marsh RN) heparin 1,000 unit/mL injection (CANCELED) As needed, Starting on Fabiana 04/10/23 at 1353, Intraprocedure 1352 (Canceled Entry - Provider: Tiana De León DO)1353 (Given - Provider: Tiana De León DO) heparin 1,000 unit/mL injection (CANCELED) As needed, Starting on Fabiana 04/10/23 at 1356, Intraprocedure 1356 (Given - Provid er: Tiana De León DO) lidocaine (Xylocaine) 20 mg/mL (2 %) injection (CANCELED) As needed, Starting on Fabiana 04/10/23 at 1336, Intraprocedure 1336 (Given - Provid er: Tiana De León DO - Comment: right IJ)1343 (Given - Provider: Tiana De León DO - Comment: chest wall) midazolam (Versed) injection (CANCELED) As needed, Starting on Fabiana 04/10/23 at 1333, Intraprocedure 1333 (Given - Provid er: Laurel Marsh RN - Comment: sedation)1338 (Given - Provider: Laurel Marsh RN) oxygen (O2) therapy (COMPLETED) Continuous PRN, Starting on Fabiana 04/10/23 at 1335, Intraprocedure 1335 (New Bag - Prov ider: Laurel Marsh RN)1600 (Stopped - Provider: Silva Underwood RN) Scheduled Medication Order 05/29/2023 05/30/2023 05/31/2023 cefTRIAXone (Rocephin) 2 g IV in dextrose 5% 50 mL (COMPLETED) 2 g, intravenous, at 100 mL/hr, Administer over 30 Minutes, Once, On Fri05/30/23 at 1725, For 1 dose, premix bag, Suspected Indication (Select all that apply): Urinary Tract Infection, Type of Therapy: Empiric, Type of Urinary Tract Infection: Uncomplicated, Catheter-Associated 180 (New Bag - Provider: Sebastian Monson RN)191 (Stopped - Provider: Avril Monson RN) oxyCODONE-acetaminophen (Percocet) 5-325 mg per tablet 1 tablet (COMPLETED) 1 tablet, oral, Once, On Fri05/30/23 at 2115, For 1 dose, If ordered PRN for pain, nurse is permitted to administer this medication for higher pain scores based on patient preference? Yes 2123 (Given - Provider: Rolando Watts RN) Continuous Medication Order 05/29/2023 05/30/2023 05/31/2023 sodium chloride 0.9% infusion 125 mL/hr, intravenous, Continuous, Starting on Fri05/30/23 at 1555 1803 (New Bag - Provider: Avril Monson RN) 0011 (Stopped - Provider: Olga Watts RN) Scheduled Medication Order 06/10/2023 06/11/2023 06/12/2023 acetaminophen (Tylenol) tablet 650 mg (COMPLETED) 650 mg, oral, Once, On Fabiana 06/12/23 at 0230, For 1 dose, If ordered PRN for pain, nurse is permitted to administer this medication for higher pain scores based on patient preference? Yes 0243 (Given - Provid er: Lazara Rosario RN) levoFLOXacin (Levaquin) tablet 500 mg (COMPLETED) 500 mg, oral, Once, On Fabiana 06/12/23 at 0400, For 1 dose, Administer at least 2 hours before or 2 hours after antacids containing magnesium or aluminum, sucralfate, metal cations (eg, iron), multivitamin preparations with zinc.i, Dosing of this medication varies based on severity of illness. Does this patient have sepsis or concern for sepsis (probable or documented infection plus systemic manifestations of infection)? No, Suspected Indication (Select all that apply): Urinary Tract Infection, Type of Therapy: Empiric, Type of Urinary Tract Infection: Uncomplicated 0533 (Given - Provid er: Lazara Rosario RN - Comment: pharmacy verification) sodium chloride 0.9 % bolus 500 mL (COMPLETED) 500 mL, intravenous, at 500 mL/hr, Administer over 1 Hours, Once, On Fabiana 06/12/23 at 0230, For 1 dose 0230 (New Bag - Prov ider: Lazara Rosario RN)0357 (Stopped - Provider: Lazara Rosario RN) Scheduled Medication Order 06/22/2023 06/23/2023 06/24/2023 acetaminophen (Tylenol) tablet 975 mg (COMPLETED) 975 mg, oral, Once, On Fri06/24/23 at 1130, For 1 dose, Preprocedure, Administer with small amount of water preoperatively., If ordered PRN for pain, nurse is permitted to administer this medication for higher pain scores based on patient preference? Yes 1147 (Given - Provid er: Deann Viramontes RN) dexAMETHasone (PF) (Decadron) injection 6 mg (COMPLETED) 6 mg, intravenous, Once, On Fri06/24/23 at 1130, For 1 dose, Preprocedure 1148 (Given - Provid er: Deann Viramontes RN) famotidine PF (Pepcid) injection 20 mg (COMPLETED) 20 mg, intravenous, Once, On Fri06/24/23 at 1130, For 1 dose, Preprocedure 1149 (Given - Provid er: Deann Viramontes RN) ondansetron (Zofran) injection 4 mg (COMPLETED) 4 mg, intravenous, Once, On Fri06/24/23 at 1130, For 1 dose, Preprocedure, When administering via IV Push, administer over 3-5 minutes. 1148 (Given - Provid er: Deann Viramontes RN) Continuous Medication Order 06/22/2023 06/23/2023 06/24/2023 sodium chloride 0.9% infusion 50 mL/hr, intravenous, Continuous, Starting on Fri06/24/23 at 1130 1147 (New Bag - Prov ider: Deann Viramontes RN)1204 (Continued by Anesthesia - Provider: Calvin Banda DO)1255 (Anesthesia Volume Adjustment - Provider: Calvin Banda DO)1440 (Stopped - Provider: Elida Siddiqui RN) PRN Medication Order 06/22/2023 06/23/2023 06/24/2023 HYDROmorphone (Dilaudid) injection 0.5 mg (CANCELED) 0.5 mg, intravenous, Every 5 min PRN, pain severe (7-10), first line, Starting on Fri06/24/23 at 1320, Recovery (only), Max total of 4 mg regardless of dose. 1321 (Given - Provid er: Ashleigh Houser RN)1329 (Given - Provider: Ashleigh Crossen, RN)1341 (Given - Provider: Ashleigh Houser RN) iohexol (OMNIPaque) 300 mg iodine/mL solution (CANCELED) As needed, Starting on Fri06/24/23 at 1229, Intraprocedure 1229 (Given - Provid er: John Bah MD) oxyCODONE (Roxicodone) immediate release tablet 5 mg (CANCELED) 5 mg, oral, Every 4 hours PRN, pain mild (1-3), first line, Starting on Fri06/24/23 at 1308, Recovery (only), When able to take oral medications., If ordered PRN for pain, nurse is permitted to administer this medication for higher pain scores based on patient preference? Yes 1405 (Given - Provid er: Elida Siddiqui RN) Scheduled Medication Order 03/09/2024 03/10/2024 03/11/2024 acetaminophen (Tylenol) tablet 975 mg (COMPLETED) 975 mg, oral, Once, On Fri03/09/24 at 1000, For 1 dose, Preprocedure, Administer with small amount of water preoperatively., If ordered PRN for pain, nurse is permitted to administer this medication for higher pain scores based on patient preference? Yes 1010 (Given - Provider: Dorie Wilson RN) dexAMETHasone (PF) (Decadron) injection 5 mg (COMPLETED) 5 mg, intravenous, Once, On Fri03/09/24 at 1015, For 1 dose 1014 (Given - Provider: Dorie Wilson RN) ertapenem (INVanz) 500 mg in sodium chloride 0.9% 50 mL IV 500 mg, intravenous, at 100 mL/hr, Administer over 30 Minutes, Every 24 hours, First dose (after last modification) on Fri03/09/24 at 1700, For 7 days, Suspected Indication (Select all that apply): Urinary Tract Infection, Type of Therapy: Definitive, Based on Culture, Type of Urinary Tract Infection: Complicated, Indications: Urinary Tract Infection 0934 (MAR Hold - Provider: Automatic Transfer Provider - Reason: Unreviewed Transfer Orders)1324 (MAR Unhold - Provider: Daily Coates DO)1746 (New Bag - Provider: Delmy Powell RN)1817 (Stopped - Provider: Delmy Powell RN) 1717 (Not Given - Provider: Delmy Powell RN - Reason: Other - Comment: dose reschduled to 2230, after dialysis. Per pharmacy dose needs to be given post dialysis)2344 (New Bag - Provider: Vivian Garcias RN - Comment: rescheduled dose per pharmacy due to pt receiving dialysis this evening. dose needs to be given after dialysis) 0208 (Stopped - Provider: Vivian Garcias RN)1700 (Due - Provider: Valery Lopez Friday Jan [facility]) famotidine PF (Pepcid) injection 20 mg (COMPLETED) 20 mg, intravenous, Administer over 2 Minutes, Once, On Fri03/09/24 at 1000, For 1 dose, Preprocedure 1009 (Given - Provider: Dorie Wilson RN) heparin (porcine) injection 5,000 Units 5,000 Units, subcutaneous, Every 8 hours, First dose on Fri03/05/24 at 1400 0617 (Not Given - Provider: Tessy Morin RN - Reason: Other - Comment: possible procedure this AM)0934 (MAR Hold - Provider: Automatic Transfer Provider - Reason: Unreviewed Transfer Orders)1324 (MAR Unhold - Provider: Daily Coates DO)1353 (Given - Provider: Delmy Powell RN)2104 (Given - Provider: Tessy Morin, KAREN) 0514 (Given - Provider: Tessy Morin, KAREN)1602 (Given - Provider: Delmy Powell RN - Comment: pt with music therapist)2346 (Given - Provider: Vivian Garcias RN - Comment: dialysis just ended) 0649 (Given - Provider: Vivian Garcias RN)1400 (Due)2200 (Due) heparin 1,000 unit/mL injection 2,000 Units 2,000 Units, intra-catheter, After Dialysis, First dose on Fri03/08/24 at 1430, Administer via venous port of hemodialysis catheter. Volume of heparin dose must equal catheter volume. Fill to port dose after dialysis. 0934 (MAR Hold - Provider: Automatic Transfer Provider - Reason: Unreviewed Transfer Orders)1324 (MAR Unhold - Provider: Daily Coates DO)1436 (Not Given - Provider: Delmy Powell RN - Reason: Other - Comment: pt not receiving dialysis at this time) 1430 (Due - Provider: John Ballesteros, PharmD) 1430 (Due - Provider: John Ballesteros, PharmD) heparin 1,000 unit/mL injection 2,000 Units 2,000 Units, intra-catheter, After Dialysis, First dose on Fri03/10/24 at 1200, Administer via arterial port of hemodialysis catheter. Volume of heparin dose must equal catheter volume. Fill to port dose after dialysis. 2236 (Given - Provider: Michele Yoon) 1200 (Due) heparin 1,000 unit/mL injection 2,000 Units 2,000 Units, intra-catheter, After Dialysis, First dose on Fri03/10/24 at 1200, Administer via venous port of hemodialysis catheter. Volume of heparin dose must equal catheter volume. Fill to port dose after dialysis. 2235 (Given - Provider: Michele Yoon) 1200 (Due) levothyroxine (Synthroid, Levoxyl) tablet 88 mcg 88 mcg, oral, Daily before breakfast, First dose on Fri03/05/24 at 1430 0934 (JUL Hold - Provider: Automatic Transfer Provider - Reason: Unreviewed Transfer Orders)1324 (JUL Unhold - Provider: Daily Coates DO)1353 (Given - Provider: Delmy Powell RN - Comment: NPO for poss. OR) 0852 (Given - Provider: Delmy Powell RN) 0649 (Given - Provider: Vivian Garcias RN) lidocaine PF (Xylocaine) 10 mg/mL (1 %) injection 50 mg 50 mg (5 mL), infiltration, Once, On Fri03/08/24 at 1545, For 1 dose 0934 (JUL Hold - Provider: Automatic Transfer Provider - Reason: Unreviewed Transfer Orders)1324 (JUL Unhold - Provider: Daily Coates DO) lubricating eye drops ophthalmic solution 2 drop 2 drop, Both Eyes, 2 times daily, First dose on Fri03/07/24 at 1215 0934 (JUL Hold - Provider: Automatic Transfer Provider - Reason: Unreviewed Transfer Orders)1324 (JUL Unhold - Provider: Daily Coates DO)1352 (Given - Provider: Delmy Powell RN)2104 (Given - Provider: Tessy Morin RN) 0852 (Given - Provider: Delmy Powell RN)2345 (Given - Provider: Vivian Garcias RN - Comment: dialysis just ended) 0838 (Given - Provider: Alissa Oneill, RN)2100 (Due) midazolam (Versed) injection 1 mg (COMPLETED) 1 mg, intravenous, Once, On Fri03/09/24 at 1000, For 1 dose, Preprocedure 1048 (Given - Provider: Dorie Wilson, RN) ondansetron (Zofran) injection 4 mg (COMPLETED) 4 mg, intravenous, Once, On Fri03/09/24 at 1000, For 1 dose, Preprocedure, When administering via IV Push, administer over 3-5 minutes. 1014 (Given - Provider: Dorie Wilson, RN) oxybutynin (Ditropan) tablet 5 mg 5 mg, oral, 2 times daily, First dose on Fri03/05/24 at 1215 0934 (JUL Hold - Provider: Automatic Transfer Provider - Reason: Unreviewed Transfer Orders)1324 (MAR Unhold - Provider: Daily Coates DO)1353 (Given - Provider: Delmy Powell RN)2104 (Given - Provider: Tessy Morin RN) 0852 (Given - Provider: Delmy Powell RN)2345 (Given - Provider: Vivian Garcias RN - Comment: dialysis just ended) 0838 (Given - Provider: Alissa Oneill RN)2100 (Due) polyethylene glycol (Glycolax, Miralax) packet 17 g 17 g, oral, Daily, First dose on Fri03/05/24 at 1215 0934 (MAR Hold - Provider: Automatic Transfer Provider - Reason: Unreviewed Transfer Orders)1324 (MAR Unhold - Provider: Daily Cotaes DO)1355 (Not Given - Provider: Delmy Powell RN - Reason: Patient/family refused) 0811 (Not Given - Provider: Delmy Powell RN - Reason: Patient/family refused) 0840 (Not Given - Provider: Alissa Oneill RN - Reason: Patient/family refused) Continuous Medication Order 03/09/2024 03/10/2024 03/11/2024 sodium chloride 0.9% infusion (CANCELED) 20 mL/hr, intravenous, Continuous, Starting on Fri03/09/24 at 1000 1015 (New Bag - Provider: Dorie Wilson, KAREN)1124 (Continued by Anesthesia - Provider: Calvin Banda DO)1206 (Anesthesia Volume Adjustment - Provider: Calvin Banda DO)1258 (Stopped - Provider: Delmy Powell RN - Comment: order discontinued) PRN Medication Order 03/09/2024 03/10/2024 03/11/2024 acetaminophen (Tylenol) tablet 650 mg 650 mg, oral, Every 4 hours PRN, pain mild (1-3), first line, Starting on Fri03/05/24 at 1155, If ordered PRN for pain, nurse is permitted to administer this medication for higher pain scores based on patient preference? Yes 34 ([facility] Hold - Provider: Automatic Transfer Provider - Reason: Unreviewed Transfer Orders)1324 ([facility] Unhold - Provider: Daily Coates DO) alteplase (Cathflo Activase) injection 2 mg 2 mg, intra-catheter, As needed, line care, Starting on Fri03/08/24 at 1518, Via PICC Line Removed by: Aspiration Inject into partial/totally occluded catheter lumen for total of 30 to 120 minute dwell time; assess patency at 30 minutes and if not patent, dwell for additional 90 minutes. If still not patent, repeat alteplase 2 mg injected into thrombotic partial or totally occluded lumen for a total of 120 minute dwell time; assess patency at 30 minutes and if not patent, dwell for 90 minutes. If still not patent, notify provider. Dilute each 2 mg vial with 2.2 mL sterile water to give 1 mg/mL final concentration. Swirl gently to mix; do not shake. 0934 ([facility] Hold - Provider: Automatic Transfer Provider - Reason: Unreviewed Transfer Orders)1324 (MAR Unhold - Provider: Daily Coates DO) bisacodyl (Dulcolax) EC tablet 10 mg 10 mg, oral, Daily PRN, constipation, first line, Starting on Fri03/05/24 at 1157, 1st line for treatment of constipation - contact provider if no bowel movement in past 48 hours. Do not crush, chew, or split. 0934 ([facility] Hold - Provider: Automatic Transfer Provider - Reason: Unreviewed Transfer Orders)1324 ([facility] Unhold - Provider: Daily Coates DO) iohexol (OMNIPaque) 300 mg iodine/mL solution (CANCELED) As needed, Starting on Fri03/09/24 at 1153, Intraprocedure 1153 (Given - Provider: John Bah MD - Comment: right ureter) ondansetron (Zofran) injection 4 mg 4 mg, intravenous, Every 8 hours PRN, nausea/vomiting, first line, Starting on Fri03/05/24 at 1155, 1st Line. Give IV if patient is unable to take orally. If inadequate response within 60 minutes, proceed to next-line agent for same PRN reason or contact provider if no further options ordered. When administering via IV Push, administer over 3-5 minutes. 0934 ([facility] Hold - Provider: Automatic Transfer Provider - Reason: Unreviewed Transfer Orders)1324 ([facility] Unhold - Provider: Daily Coates DO) oxyCODONE (Roxicodone) immediate release tablet 5 mg 5 mg, oral, Every 6 hours PRN, pain moderate (4-6), first line, Starting on Fri03/05/24 at 1150, If ordered PRN for pain, nurse is permitted to administer this medication for higher pain scores based on patient preference? Yes 0934 ([facility] Hold - Provider: Automatic Transfer Provider - Reason: Unreviewed Transfer Orders)1324 ([facility] Unhold - Provider: Daily Coates DO)1353 (Given - Provider: Delmy Powell RN) oxygen (O2) therapy inhalation, Continuous PRN - O2/gases, other, Starting on Fri03/05/24 at 2143, Device: Non-Invasive Ventilation, Rate in liters per minute: 2 LPM, FIO2: 28, Keep O2 Sat Above: 92% 0637 ([employer] [facility] [employer] - Provider: Talita Earl CRTT) simethicone (Mylicon) chewable tablet 160 mg 160 mg, oral, Every 8 hours PRN, flatulence, Starting on Fri03/05/24 at 1151 0934 ([facility] Hold - Provider: Automatic Transfer Provider - Reason: Unreviewed Transfer Orders)1324 ([facility] Unhold - Provider: Daily Coates DO) Scheduled Medication Order 05/10/2024 05/11/2024 05/12/2024 cefTRIAXone (Rocephin) 2 g in dextrose (iso) IV 50 mL (COMPLETED) 2 g, intravenous, at 100 mL/hr, Administer over 30 Minutes, Once, On Fri05/11/24 at 2114, For 1 dose, premix bag, Suspected Indication (Select all that apply): Urinary Tract Infection, Type of Therapy: Empiric, Type of Urinary Tract Infection: Complicated, Indications: Urinary Tract Infection 2142 (New Bag - Provider: Lissett Murphy RN)2208 (Stopped - Provider: Lissett Murphy RN) morphine injection 4 mg (COMPLETED) 4 mg, intravenous, Once, On Fri05/11/24 at 191, For 1 dose 1952 (Given - Provider: Lissett Murphy RN) morphine injection 4 mg (COMPLETED) 4 mg, intravenous, Once, On Fri05/11/24 at 2114, For 1 dose 2125 (Given - Provider: Jaxon Park RN) ondansetron (Zofran) injection 4 mg (COMPLETED) 4 mg, intravenous, Once, On Fri05/11/24 at 191, For 1 dose, When administering via IV Push, administer over 3-5 minutes. 1950 (Given - Provider: Lissett Murphy RN) PRN Medication Order 05/10/2024 05/11/2024 05/12/2024 HYDROcodone-acetaminophen ([place]) 5-325 mg per tablet 1 tablet 1 tablet, oral, Every 6 hours PRN, pain severe (7-10), first line, Starting on Fri05/11/24 at 2215, If ordered PRN for pain, nurse is permitted to administer this medication for higher pain scores based on patient preference? Yes Scheduled Medication Order 02/08/2024 02/09/2024 02/10/2024 alum-mag hydroxide-simeth (Mylanta) 200-200-20 mg/5 mL oral suspension 30 mL (COMPLETED) 30 mL, oral, Once, On Fri02/09/24 at 2315, For 1 dose 2331 (Given - Provider: Prudence Valverde RN) diphenhydrAMINE (BENADryl) injection 50 mg (COMPLETED) 50 mg, intravenous, Once, On Fri02/09/24 at 2350, For 1 dose, If giving IV push, max rate of 25 mg/min. 2352 (Given - Provider: Natasha Murphy, KAREN) famotidine PF (Pepcid) injection 40 mg (COMPLETED) 40 mg, intravenous, Administer over 2 Minutes, Once, On Fri02/09/24 at 2315, For 1 dose 2331 (Given - Provider: Prudence Valverde, KAREN) iohexol (OMNIPaque) 350 mg iodine/mL solution 90 mL 90 mL, intravenous, Once in imaging, Starting on Fri02/09/24 at 2346, For 1 dose lidocaine (Xylocaine) 2 % mouth solution 10 mL (COMPLETED) 10 mL, Mouth/Throat, Once, On Fri02/09/24 at 2315, For 1 dose 233 (Given - Provider: Prudence Valverde RN) methylPREDNISolone sod succinate (SOLU-Medrol) injection 125 mg (COMPLETED) 125 mg, intravenous, Once, On Fri02/09/24 at 2350, For 1 dose 2352 (Given - Provider: Natasha Murphy RN) Care Teams (unrecognized sec tion and content) Team Status: Active Member Role Status Dates Dr. Ata Hernandez MD Primary Care Provider Active Team Status: Inactive Member Role Status Dates Dr. Ata Hernandez MD Primary Care Provider Active Start: July 14, 2024 End: July 16, 2024 Quinn Waddell MD Emergency Provider Active Star t: July 14, 2024 End: July 16, 2024 Dr. Elana Degroot DO Admit Provider Active Start : July 14, 2024 End: July 16, 2024 Dr. Elana Degroot DO Other Provider Active Start : July 14, 2024 End: July 16, 2024 Dr. Jan Abarca MD Other Provider Active Start: July 14, 2024 End: July 16, 2024 Dr. Davey Allen DO Attending Provider Active Start: July 14, 2024 End: July 16, 2024 Team Status: Active Member Role Status Dates Dr. Ata Hernandez MD Primary Care Provider Active Start: July 14, 2024 Quinn Waddell MD Emergency Provider Active Star t: July 14, 2024 Dr. Elana Degroot DO Admit Provider Active Start : July 14, 2024 Dr. Elana Degroot DO Attending Provider Active S tart: July 14, 2024 Dr. Elana Degroot DO Other Provider Active Start : July 14, 2024 Dr. Jan Abarca MD Other Provider Active Start: July 14, 2024 Team Status: Active Member Role Status Dates Dr. Ata Hernandez MD Primary Care Provider Active Start: July 15, 2024 Quinn Waddell MD Emergency Provider Active Star t: July 15, 2024 Dr. Elana Degroot DO Admit Provider Active Start : July 15, 2024 Dr. Elana Degroot DO Other Provider Active Start : July 15, 2024 Dr. Jan Abarca MD Other Provider Active Start: July 15, 2024 Dr. Davey Allen DO Attending Provider Active Start: July 15, 2024 Dr. Davey Allen DO Other Provider Active S tart: July 15, 2024 Team Status: Active Member Role Status Dates Dr. Ata Hernandez MD Primary Care Provider Active Start: July 16, 2024 Quinn Waddell MD Emergency Provider Active Star t: July 16, 2024 Dr. Elana Degroot DO Admit Provider Active Start : July 16, 2024 Dr. Elana Degroot DO Other Provider Active Start : July 16, 2024 Dr. Jan Abarca MD Other Provider Active Start: July 16, 2024 Dr. Davey Allen DO Attending Provider Active Start: July 16, 2024 Dr. Davey Allen DO Other Provider Active S tart: July 16, 2024 Team Status: Inactive Member Role Status Dates Dr. Ata Hernandez MD Primary Care Provider Active Start: August 13, 2024 End: August 14, 2024 Dr. Rajat Suazo MD Attending Provider Active S tart: August 13, 2024 End: August 14, 2024 Dr. Rajat Suazo MD Emergency Provider Active S tart: August 13, 2024 End: August 14, 2024 Team Status: Inactive Member Role Status Dates Dr. Ata Hernandez MD Primary Care Provider Active Start: August 16, 2024 End: August 17, 2024 Dr. Ren Uriarte DO Attending Provider Active Start : August 16, 2024 End: August 17, 2024 Dr. Ren Uriarte DO Emergency Provider Active Start : August 16, 2024 End: August 17, 2024 Team Status: Inactive Member Role Status Dates Dr. Ata Hernandez MD Primary Care Provider Active Start: September 24, 2024 End: September 24, 2024 Dr. Yaya Foster MD Attending Provider Active Start: September 24, 2024 End: September 24, 2024 Team Status: Inactive Member Role Status Dates Dr. Ata Hernandez MD Primary Care Provider Active Start: October 22, 2024 End: October 22, 2024 Dr. Koffi Coffman MD Attending Provider Active Start: October 22, 2024 End: October 22, 2024 Dr. Koffi Coffman MD Emergency Provider Active Start: October 22, 2024 End: October 22, 2024 Team Status: Inactive Member Role Status Dates Dr. Ata Hernandez MD Primary Care Provider Active Start: November 09, 2024 End: November 09, 2024 Dr. Ren Uriarte DO Emergency Provider Active Start : November 09, 2024 End: November 09, 2024 Gamb Cutter Relationship Specialty Start Date End Date Ata Hernandez DO PCP - General Internal Medicine 12/26/16 Gamb Cutter Relationship Specialty Start Date End Date Ata Hernandez DO PCP - General Internal Medicine 12/26/16 Gamb Cutter Relationship Specialty Start Date End Date Ata Hernandez P DO PCP - General Internal Medicine 12/26/16 Gamb Cutter Relationship Specialty Start Date End Date Ata Hernandez P DO PCP - General Internal Medicine 12/26/16 Gamb Cutter Relationship Specialty Start Date End Date Ata Hernandez DO PCP - General Internal Medicine 12/26/16 Gamb Cutter Relationship Specialty Start Date End Date Ata Hernandez DO PCP - General Internal Medicine 12/26/16 Gamb Cutter Relationship Specialty Start Date End Date Ata Hernandez DO [address] [facility] [place] [address] PCP - General 06/02/17 Gamb Cutter Relationship Specialty Start Date End Date Ata Hernandez DO PCP - General Internal Medicine 12/26/16 Gamb Cutter Relationship Specialty Start Date End Date Ata Hernandez DO [address] [place] [facility] [place] [address] PCP - General 06/02/17 Gamb Cutter Relationship Specialty Start Date End Date Ata Hernandez DO [address] [place] [facility] [place] [address] PCP - General 06/02/17 Gamb Cutter Relationship Specialty Start Date End Date Ata Hernandez DO [address] [facility] [place] [address] PCP - General 06/02/17 Gamb Cutter Relationship Specialty Start Date End Date Ata Hernandez DO [address] [facility] [place] [address] PCP - General 06/02/17 Gamb Cutter Relationship Specialty Start Date End Date Ata Hernandez DO PCP - General Internal Medicine 12/26/16 Gamb Cutter Relationship Specialty Start Date End Date Ata Hernandez DO [address] [facility] [place] [address] PCP - General 06/02/17 Gamb Cutter Relationship Specialty Start Date End Date Ata Hernandez DO PCP - General Internal Medicine 08/13/19 Gamb Cutter Relationship Specialty Start Date End Date Ata Hernandez DO [address] [facility] [place] [address] PCP - General 06/02/17 Gamb Cutter Relationship Specialty Start Date End Date Ata Hernandez DO [address] [facility] [place] [address] PCP - General 06/02/17 Gamb Cutter Relationship Specialty Start Date End Date Ata Hernandez DO [address] [place] [facility] [place] [address] PCP - General 06/02/17 Gamb Cutter Relationship Specialty Start Date End Date Ata Hernandez DO [address] [place] [facility] [place] [address] PCP - General 06/02/17 Gamb Cutter Relationship Specialty Start Date End Date Ata Hernandez DO [address] [place] [address], [place] [address] PCP - General Internal Medicine 08/13/19 Cali Jacob MD [address] [place] [address] Surgeon Vascular Surgery 06/23/23 Tiana De León DO [address] [place] [address] Referring Physician Internal Medicine 06/23/23 Nan De León CNP [address] [place] [address] Registered Nurse Nurse Practitioner 06/23/23 Gamb Cutter Relationship Specialty Start Date End Date Ata Hernandez DO [address] [place] [address] PCP - General Internal Medicine 08/13/19 Cali Jacob MD [address] [place] [address]372 Surgeon Vascular Surgery 06/23/23 Tiana De León DO [address] [place], [place] [phone] Referring Physician Internal Medicine 06/23/23 Nan De León CNP [address] [place] [address] 608[address] Registered Nurse Nurse Practitioner 06/23/23 Gamb Cutter Relationship Specialty Start Date End Date Ata Hernandez DO [address] [place] [address] PCP - General 06/02/17 Tiana De León DO [address] [place] [address] PCP - [employer] Medicare Advantage PCP 06/02/23 Gamb Cutter Relationship Specialty Start Date End Date Ata Hernandez DO [address] [place] [address] PCP - General 06/02/17 Tiana De León, [address] [place] [address] PCP - [employer] Medicare Advantage PCP 06/02/23 Gamb Cutter Relationship Specialty Start Date End Date ArikAta ordoñezDO [address] [place] [address] PCP - General 06/02/17 Tiana De León, DO [address] [place] [address] PCP - [employer] Medicare Advantage PCP 06/02/23 Gamb Cutter Relationship Specialty Start Date End Date Eulogio Hernandezic DO [place] [address] [place] [address] PCP - General 06/02/17 Tiana De León, [address] [place] [address] PCP - [employer] Medicare Advantage PCP 06/02/23 Gamb Cutter Relationship Specialty Start Date End Date Ata Hernandez DO [address] [place] [address] PCP - General Internal Medicine 08/13/19 Cali Jacob MD [address] [place] [address] 07166 Surgeon Vascular Surgery 06/23/23 Tiana De León, [address] [place] [address] Referring Physician Internal Medicine 06/23/23 Nan De León CNP [address] [place] [address] Registered Nurse Nurse Practitioner 06/23/23 Gamb Cutter Relationship Specialty Start Date End Date Ata Hernandez [address] [place] [address] PCP - General Internal Medicine 08/13/19 Cali Jacob MD [address] [place] [address] Surgeon Vascular Surgery 06/23/23 Tiana De León DO [address] [place] [address] Referring Physician Internal Medicine 06/23/23 Nan De León CNP [address] [place] [address] Registered Nurse Nurse Practitioner 06/23/23 Gamb Cutter Relationship Specialty Start Date End Date Ata Hernandez [address] [address] PCP - General Internal Medicine 08/13/19 Cali Jacob MD [address] [place] [address] Surgeon Vascular Surgery 06/23/23 Tiana De León DO [address] [place] [address] Referring Physician Internal Medicine 06/23/23 Nan De León CNP [address] [place] [address] Registered Nurse Nurse Practitioner 06/23/23 Gamb Cutter Relationship Specialty Start Date End Date Ata Hernandez [address] [place] [address] PCP - General 06/02/17 Tiana De León DO [address] [place] [address] PCP - [employer] Medicare Advantage PCP 06/02/23 Gamb Cutter Relationship Specialty Start Date End Date Ata Hernandez [address] [place] [address] PCP - General Internal Medicine 08/13/19 07/17/23 Hernesto Logan MD [address] [place] [id number] PCP - General Internal Medicine 07/18/23 Cali Jacob MD [address] [place] [address] 16894 Surgeon Vascular Surgery 06/23/23 Tiana De León DO [address] [place], [place] [phone] Referring Physician Internal Medicine 06/23/23 Nan De León CNP [address] [place] [address] Registered Nurse Nurse Practitioner 06/23/23 Gamb Cutter Relationship Specialty Start Date End Date Hernesto Logan MD [address] [place] [address] PCP - General Internal Medicine 07/18/23 Cali Jacob MD [address] [place], [place] [address] [place] [address] Surgeon Vascular Surgery 06/23/23 Tiana De León DO [address] [address] Referring Physician Internal Medicine 06/23/23 Nan De León CNP [address] [place] [address] Registered Nurse Nurse Practitioner 06/23/23 Gamb Cutter Relationship Specialty Start Date End Date Ata Hernandez DO [address] [place] [id number] PCP - General 06/02/17 Tiana De León DO [address] [place] [phone] PCP - [employer] Medicare Advantage PCP 06/02/23 Gamb Cutter Relationship Specialty Start Date End Date Ata Hernandez DO [address] [place] [id number] PCP - General 06/02/17 Tiana De León DO [address] [address] PCP - [employer] Medicare Advantage PCP 06/02/23 Gamb Cutter Relationship Specialty Start Date End Date Ata Hernandez DO [address] [place] [address] PCP - General 06/02/17 Tiana De León DO [address] [address] PCP - [employer] Medicare Advantage PCP 06/02/23 Gamb Cutter Relationship Specialty Start Date End Date Hernesto Logan MD [address] [place], [place] [id number] PCP - General Internal Medicine 07/18/23 Cali Jacob MD [address] [place] [address] Surgeon Vascular Surgery 06/23/23 Tiana De León DO [address] [address] Referring Physician Internal Medicine 06/23/23 Nan De León CNP [address] [place] [address] Registered Nurse Nurse Practitioner 06/23/23 Gamb Cutter Relationship Specialty Start Date End Date Hernesto Logan MD [address] [place] [address] PCP - General Internal Medicine 07/18/23 Cali Jacob MD [address] [place] [address] Surgeon Vascular Surgery 06/23/23 Tiana De León DO [address] [address] Referring Physician Internal Medicine 06/23/23 Nan De León CNP [address] [place] [address] Registered Nurse Nurse Practitioner 06/23/23 Gamb Cutter Relationship Specialty Start Date End Date Hernesto Logan MD [address] [place] [address] PCP - General Internal Medicine 07/18/23 Cali Jacob MD [address] [facility] [place] [address] Surgeon Vascular Surgery 06/23/23 Tiana De León DO [address] [place] [address] Referring Physician Internal Medicine 06/23/23 Nan De León CNP [address] [place] [address] Registered Nurse Nurse Practitioner 06/23/23 Gamb Cutter Relationship Specialty Start Date End Date Ata Hernandez DO [address] [place] [id number] PCP - General 06/02/17 iTana De León DO [address] [place] [address] PCP - [employer] Medicare Advantage PCP 06/02/23 Gamb Cutter Relationship Specialty Start Date End Date Hernesto Logan MD [address] [place] [address] PCP - General Internal Medicine 07/18/23 Cali Jacob MD [address] [place] [address] Surgeon Vascular Surgery 06/23/23 Tiaan De León DO [address] [place] [address] Referring Physician Internal Medicine 06/23/23 Nan De León CNP [address] [place], [place] [phone] Registered Nurse Nurse Practitioner 06/23/23 Gamb Cutter Relationship Specialty Start Date End Date Hernesto Logan MD [address] [place] [address] PCP - General Internal Medicine 07/18/23 Cali Jacob MD [address] [place] [address] Surgeon Vascular Surgery 06/23/23 Tiana De León DO [address] [place] [address] Referring Physician Internal Medicine 06/23/23 Nan De León CNP [address] [place], [place] [phone] Registered Nurse Nurse Practitioner 06/23/23 Gamb Cutter Relationship Specialty Start Date End Date Hernesto Logan MD [address] [place] [address] PCP - General Internal Medicine 07/18/23 Cali Jacob MD [address] [place] [address] Surgeon Vascular Surgery 06/23/23 Tiana De León DO [address] [place], [place] [phone] Referring Physician Internal Medicine 06/23/23 Nan De León CNP [address] [place] [address] Registered Nurse Nurse Practitioner 06/23/23 Gamb Cutter Relationship Specialty Start Date End Date Hernesto Logan MD [address] [place] [address] PCP - General Internal Medicine 07/18/23 Cali Jacob MD [address] [place] [address] Surgeon Vascular Surgery 06/23/23 Tiana De Lóen DO [address] [place] [address] Referring Physician Internal Medicine 06/23/23 Nan De León CNP [address] [place] [address] Registered Nurse Nurse Practitioner 06/23/23 Gamb Cutter Relationship Specialty Start Date End Date Hernesto Logan MD [address] [place] [address] PCP - General Internal Medicine 07/18/23 Cali Jacob MD [address] [place] [address] Surgeon Vascular Surgery 06/23/23 Tiana De León [address] [place] [address] [address] [place] [address] Referring Physician Internal Medicine 06/23/23 Nan De León CNP [address] [place] [address] Registered Nurse Nurse Practitioner 06/23/23 Gamb Cutter Relationship Specialty Start Date End Date Ata Hernandez, [address] [place] [phone] PCP - General 06/02/17 Tiana De León, [address] [place] [address] PCP - [employer] Medicare Advantage PCP 06/02/23 Liliana Proctor, director of scientific researchLarge Animal Veterinarian 03/02/24 Gamb Cutter Relationship Specialty Start Date End Date Ata Hernandez DO [address] [place] [id number] PCP - General 06/02/17 Tiana De León, [address] [place] [id number] PCP - [employer] Medicare Advantage PCP 06/02/23 Liliana Proctor, director of scientific researchLarge Animal Veterinarian 03/02/24 04/01/24 Gamb Cutter Relationship Specialty Start Date End Date Ata Hernandez DO [address] [place] [address] PCP - General 06/02/17 Tiana De León, [address] [place] [address] PCP - [employer] Medicare Advantage PCP 06/02/23 Liliana Proctor, director of scientific researchLarge Animal Veterinarian 03/02/24 04/01/24 Gamb Cutter Relationship Specialty Start Date End Date Ata Hernandez DO [address] [place] [address] PCP - General 06/02/17 Tiana De León, DO [address] [place] [address] PCP - [employer] Medicare Advantage PCP 06/02/23 Liliana Proctor, director of scientific researchLarge Animal Veterinarian 03/02/24 04/01/24 Gamb Cutter Relationship Specialty Start Date End Date Ata Hernandez DO PCP - General Internal Medicine 12/26/16 Gamb Cutter Relationship Specialty Start Date End Date Mary Ata Canelo DO [address] [place] [address] PCP - General 06/02/17 Tiana De León, DO [address] [place] [address] PCP - [employer] Medicare Advantage PCP 06/02/23 Gamb Cutter Relationship Specialty Start Date End Date Ata Hernandez DO [address] [place] [address] PCP - General 06/02/17 Tiana De León, DO [address] [place] [address] PCP - [employer] Medicare Advantage PCP 06/02/23 Gamb Cutter Relationship Specialty Start Date End Date Arik Ata CaneloDO [address] [place] [address] PCP - General 06/02/17 Tiana De León DO [address] [place] [address] PCP - [employer] Medicare Advantage PCP 06/02/23 Gamb Cutter Relationship Specialty Start Date End Date Arikus Ata CaneloDO [address] [place] [address] PCP - General 06/02/17 Tiana De León DO [address] [place] [address] PCP - [employer] Medicare Advantage PCP 06/02/23 Gamb Cutter Relationship Specialty Start Date End Date Ata Hernandez OzzieDO PCP - General Internal Medicine 12/26/16 Gamb Cutter Relationship Specialty Start Date End Date Ata Hernandez Ozzie PCP - General Internal Medicine 12/26/16 Team Status: Active Member Role Status Dates Dr. Jyoti Hernandez DO Emergency Provider Active Start: June 03, 2024 Dr. Ata Hernandez MD Primary Care Provider Active Start: June 03, 2024 Dr. Elana Degroot DO Admit Provider Active Start : June 03, 2024 Dr. Elana Degroot DO Attending Provider Active S tart: June 03, 2024 Dr. Elana Degroot DO Other Provider Active Start : June 03, 2024 Team Status: Active Member Role Status Dates Dr. Jyoti Hernandez DO Emergency Provider Active Start: June 04, 2024 Dr. Ata Hernandez MD Primary Care Provider Active Start: June 04, 2024 Dr. Elana Degroot DO Admit Provider Active Start : June 04, 2024 Dr. Elana Degroot DO Other Provider Active Start : June 04, 2024 Dr. Calvin Yoo MD Attending Provider Active Start: June 04, 2024 Dr. Calvin Yoo MD Other Provider Active Star t: June 04, 2024 Team Status: Active Member Role Status Dates Dr. Jyoti Hernandez DO Emergency Provider Active Start: June 05, 2024 Dr. Ata Hernandez MD Primary Care Provider Active Start: June 05, 2024 Dr. Elana Degroot DO Admit Provider Active Start : June 05, 2024 Dr. Elana Degroot DO Other Provider Active Start : June 05, 2024 Dr. Calvin Yoo MD Attending Provider Active Start: June 05, 2024 Dr. Calvin Yoo MD Other Provider Active Star t: June 05, 2024 Dr. Jan Abarca MD Other Provider Active Start: June 05, 2024 Team Status: Inactive Member Role Status Dates Dr. Jyoti Hernandez DO Emergency Provider Active Start: June 05, 2024 End: June 06, 2024 Dr. Ata Hernandez MD Primary Care Provider Active Start: June 05, 2024 End: June 06, 2024 Dr. Elana Degroot DO Admit Provider Active Start : June 05, 2024 End: June 06, 2024 Dr. Elana Degroot DO Other Provider Active Start : June 05, 2024 End: June 06, 2024 Dr. Calvin Yoo MD Attending Provider Active Start: June 05, 2024 End: June 06, 2024 Dr. Jan Abarca MD Other Provider Active Start: June 05, 2024 End: June 06, 2024 Team Status: Active Member Role Status Dates Dr. Jyoti Hernandez DO Emergency Provider Active Start: June 06, 2024 Dr. Ata Hernandez MD Primary Care Provider Active Start: June 06, 2024 Dr. Elana Degroot DO Admit Provider Active Start : June 06, 2024 Dr. Elana Degroot DO Other Provider Active Start : June 06, 2024 Dr. Calvin Yoo MD Attending Provider Active Start: June 06, 2024 Dr. Calvin Yoo MD Other Provider Active Star t: June 06, 2024 Dr. Jan Abarca MD Other Provider Active Start: June 06, 2024 Team Status: Inactive Member Role Status Dates Dr. Ata Hernandez MD Primary Care Provider Active Start: June 28, 2024 End: July 01, 2024 Dr. Koffi Coffman MD Emergency Provider Active Start: June 28, 2024 End: July 01, 2024 Dr. Pranay Beck DO Admit Provider Active Start: June 28, 2024 End: July 01, 2024 Dr. Pranay Beck DO Other Provider Active Start: June 28, 2024 End: July 01, 2024 Dr. Jan Abarca MD Other Provider Active Start: June 28, 2024 End: July 01, 2024 Dr. Elana Degroot DO Attending Provider Active S tart: June 28, 2024 End: July 01, 2024 Team Status: Active Member Role Status Dates Dr. Ata Hernandez MD Primary Care Provider Active Start: June 29, 2024 Dr. Koffi Coffman MD Emergency Provider Active Start: June 29, 2024 Dr. Pranay Beck DO Admit Provider Active Start: June 29, 2024 Dr. Pranay Beck DO Other Provider Active Start: June 29, 2024 Dr. Jan Abarca MD Other Provider Active Start: June 29, 2024 Dr. Elana Degroot DO Attending Provider Active S tart: June 29, 2024 Dr. Elana Degroot DO Other Provider Active Start : June 29, 2024 Team Status: Active Member Role Status Dates Dr. Aat Hernandez MD Primary Care Provider Active Start: June 30, 2024 Dr. Koffi Coffman MD Emergency Provider Active Start: June 30, 2024 Dr. Pranay Beck DO Admit Provider Active Start: June 30, 2024 Dr. Pranay Beck DO Other Provider Active Start: June 30, 2024 Dr. Jan Abarca MD Other Provider Active Start: June 30, 2024 Dr. Elana Degroot DO Attending Provider Active S tart: June 30, 2024 Dr. Elana Degroot DO Other Provider Active Start : June 30, 2024 Team Status: Active Member Role Status Dates Dr. Ata Hernandez MD Primary Care Provider Active Start: July 01, 2024 Dr. Koffi Coffman MD Emergency Provider Active Start: July 01, 2024 Dr. Pranay Beck DO Admit Provider Active Start: July 01, 2024 Dr. Pranay Beck DO Other Provider Active Start: July 01, 2024 Dr. Jan Abarca MD Other Provider Active Start: July 01, 2024 Dr. Elana Degroot DO Attending Provider Active S tart: July 01, 2024 Dr. Elana Degroot DO Other Provider Active Start : July 01, 2024 Team Status: Inactive Member Role Status Dates Dr. Ata Hernandez MD Primary Care Provider Active Start: August 13, 2024 End: August 14, 2024 Dr. Rajat Suazo MD Emergency Provider Active S tart: August 13, 2024 End: August 14, 2024 Team Status: Inactive Member Role Status Dates Dr. Ata Hernandez MD Primary Care Provider Active Start: August 16, 2024 End: August 17, 2024 Dr. Ren Uriarte DO Emergency Provider Active Start : August 16, 2024 End: August 17, 2024 Gamb Cutter Relationship Specialty Start Date End Date Ata Hernandez DO PCP - General Internal Medicine 12/26/16 Gamb Cutter Relationship Specialty Start Date End Date Ata Hernandez DO PCP - General Internal Medicine 12/26/16 Gamb Cutter Relationship Specialty Start Date End Date Hernesto Logan MD [address] [place] [address] PCP - General Internal Medicine 07/18/23 Cali Jacob MD [address] [place], [place] [address] [address] Surgeon Vascular Surgery 06/23/23 Broderick De Leónon NaunDO [address] [address] Referring Physician Internal Medicine 06/23/23 Nan De León LIBAN [address] [place] [address] Registered Nurse Nurse Practitioner 06/23/23 Team Status: Active Member Role/Relationship Status Dates Dr. Ata Hernandez MD Primary Care Provider Active Team Status: Inactive Member Role/Relationship Status Dates Dr. Ata Hernandez MD Primary Care Provider Active Start: August 13, 2024 End: August 14, 2024 Dr. Rajat Suazo MD Attending Provider Active S tart: August 13, 2024 End: August 14, 2024 Dr. Rajat Suazo MD Emergency Provider Active S tart: August 13, 2024 End: August 14, 2024 Team Status: Inactive Member Role/Relationship Status Dates Dr. Ata Hernandez MD Primary Care Provider Active Start: August 16, 2024 End: August 17, 2024 Dr. Ren Uriarte DO Attending Provider Active Start : August 16, 2024 End: August 17, 2024 Dr. Ren Uriarte DO Emergency Provider Active Start : August 16, 2024 End: August 17, 2024 Team Status: Inactive Member Role/Relationship Status Dates Dr. Ata Hernandez MD Primary Care Provider Active Start: September 24, 2024 End: September 24, 2024 Dr. Yaya Foster MD Attending Provider Active Start: September 24, 2024 End: September 24, 2024 Team Status: Inactive Member Role/Relationship Status Dates Dr. Ata Hernandez MD Primary Care Provider Active Start: October 22, 2024 End: October 22, 2024 Dr. Koffi Coffman MD Attending Provider Active Start: October 22, 2024 End: October 22, 2024 Dr. Koffi Coffman MD Emergency Provider Active Start: October 22, 2024 End: October 22, 2024 Team Status: Inactive Member Role/Relationship Status Dates Dr. Ata Hernandez MD Primary Care Provider Active Start: November 09, 2024 End: November 09, 2024 Dr. Ren Uriarte DO Attending Provider Active Start : November 09, 2024 End: November 09, 2024 Dr. Ren Uriarte DO Emergency Provider Active Start : November 09, 2024 End: November 09, 2024 Team Status: Inactive Member Role/Relationship Status Dates Dr. Ata Hernandez MD Primary Care Provider Active Start: December 01, 2024 End: December 01, 2024 Quinn Waddell MD Emergency Provider Active Star t: December 01, 2024 End: December 01, 2024 Team Status: Inactive Member Role/Relationship Status Dates Dr. Ata Hernandez MD Primary Care Provider Active Start: August 16, 2024 End: August 17, 2024 Dr. Ren Uriarte DO Attending Provider Active Start : August 16, 2024 End: August 17, 2024 Dr. Ren Uriarte DO Emergency Provider Active Start : August 16, 2024 End: August 17, 2024 Team Status: Inactive Member Role/Relationship Status Dates Dr. Ata Hernandez MD Primary Care Provider Active Start: September 24, 2024 End: September 24, 2024 Dr. Yaya Foster MD Attending Provider Active Start: September 24, 2024 End: September 24, 2024 Team Status: Inactive Member Role/Relationship Status Dates Dr. Ata Hernandez MD Primary Care Provider Active Start: October 22, 2024 End: October 22, 2024 Dr. Koffi Coffman MD Attending Provider Active Start: October 22, 2024 End: October 22, 2024 Dr. Koffi Coffman MD Emergency Provider Active Start: October 22, 2024 End: October 22, 2024 Team Status: Inactive Member Role/Relationship Status Dates Dr. Ata Hernandez MD Primary Care Provider Active Start: November 09, 2024 End: November 09, 2024 Dr. Ren Uriarte DO Attending Provider Active Start : November 09, 2024 End: November 09, 2024 Dr. Ren Uriarte DO Emergency Provider Active Start : November 09, 2024 End: November 09, 2024 Team Status: Inactive Member Role/Relationship Status Dates Dr. Ata Hernandez MD Primary Care Provider Active Start: December 01, 2024 End: December 01, 2024 Quinn Waddell MD Attending Provider Active Star t: December 01, 2024 End: December 01, 2024 Quinn Waddell MD Emergency Provider Active Star t: December 01, 2024 End: December 01, 2024 Team Status: Inactive Member Role/Relationship Status Dates Dr. Ata Hernandez MD Primary Care Provider Active Start: December 13, 2024 End: December 13, 2024 Dr. Koffi Coffman MD Emergency Provider Active Start: December 13, 2024 End: December 13, 2024 <item><item> Privacy Markings (unrecogniz ed section and content) Section Author: Tavia Coker PROHIBITION ON REDISCLOSURE OF CONFIDENTIAL INFORMATION This notice accompanies a disclosure of information concerning a client made to you with the consent of such client. Section Author: Tavia Coker PROHIBITION ON REDISCLOSURE OF CONFIDENTIAL INFORMATION This notice accompanies a disclosure of information concerning a client made to you with the consent of such client. Goals (unrecognized section and content) Goals may be documented in a n alternate section FOR RECORDS PERTAINING TO PATIENTS WHO ARE OR HAVE BEEN ENROLLED IN A CHEMICAL DEPENDENCY/SUBSTANCEABUSE PROGRAM, SOME INFORMATION MAY BE OMITTED. This clinical summary was aggregated from multiple sources. Caution should be exercised in using it in the provision of clinical care. This summary normalizes information from multiple sources, and as a consequence, information in this document may materially change the coding, format and clinical context of patient data. In addition, data may be omitted in some cases. CLINICAL DECISIONS SHOULD BE BASED ON THE PRIMARY CLINICAL RECORDS. [employer] provides no warranty or guarantee of the accuracy or completeness of information in this document.
[2024-12-25 20:54] LABS: Color, Urine Yellow (Yellow); Glucose, Dipstick Normal (Normal); Ketone-Dipstick Negative (Negative); Leukocyte Esterase-Dipstick 500 /ul (Negative); Nitrite-Dipstick Negative (Negative); Occult Blood-Urine 250 /ul (Negative); Protein-Dipstick 100 mg/dl (Negative); Specific Gravity, Urine 1.010 (1.002-1.030); Urine Bilirubin Dipstick Negative (Negative)
[2024-12-25 21:03] LABS: AST(SGOT) 20 U/L (<=37); Alanine Aminotransfer ALT/SGPT 9 U/L (<=46); Albumin, Serum 4.1 g/dL (3.4-4.8); Alkaline Phosphatase 90 U/L (40-129); Anion Gap 16 (5-15); BUN 29 mg/dL (4-19); BUN/Creat Ratio 7.6 RATIO (10-20); Calcium,Total 9.4 mg/dL (7.6-11.0); Carbon Dioxide 26.1 mmol/L (21.0-32.0); Chloride 97 mmol/L (98-108); Estimated Creatinine Clearance 20.15 ml/min (50-250); Globulin 3.2 g/dL (2.2-4.2); Glucose 152 mg/dL (70-99); Lipase 36 U/L (13-75); Potassium 4.6 mmol/L (3.3-5.1)
[2024-12-25 21:09] LABS: Red Blood Cells-Urine > 100 SEEN /hpf (0-5); Squamous Epithelial Cells - UA 0-5 SEEN /hpf (0-5)
[2024-12-25 21:17] VITALS: BP 115/39; PULSE 74; RESP 27; O2SAT 95
[2024-12-25 22:00] VITALS: BP 129/69; PULSE 74; RESP 19; O2SAT 95
[2024-12-25 23:00] VITALS: BP 121/52; PULSE 76; RESP 22; O2SAT 96
[2024-12-26] VITALS (11 sets, daily range): BP systolic 110–135; BP diastolic 47–66; PULSE 62–73; RESP 14–26; TEMP 36.6; O2SAT 94–98
[2024-12-26] MEDS: Meropenem 2 GM in 0.9% Normal Saline (100mL Bag) 100 ML IV (00:39)
--- NOTE | 2024-12-26 03:21 | PCA ---
pt accepted to [facility] (formerly [facility]) dr. nelson bed [id number] ask for med surg.
== END 2024-12-26 09:46 | disposition other institution (70) ==
PROVIDERS: Emergency Provider Emergency Medicine; Visit Provider Emergency Medicine
DX: N13.2 Hydronephrosis with renal and ureteral calculous obstruction (principal); N18.6 End stage renal disease; I12.0 Hypertensive chronic kidney disease with stage 5 chronic kidney disease or end stage renal disease; T83.511A Infection and inflammatory reaction due to indwelling urethral catheter, initial encounter; Z99.2 Dependence on renal dialysis; E78.5 Hyperlipidemia, unspecified; Z79.899 Other long term (current) drug therapy; Z87.891 Personal history of nicotine dependence; X58.XXXA Exposure to other specified factors, initial encounter
CPT/HCPCS: 74177; 80053; 81001; 83690; 85025; 87077; 87086; 87088; 87186; 93005; 96365; 96366; 96367; 96375; 96376; 99285; J2185; Q9967; A4216; J2405

== ENCOUNTER 2025-01-21 16:31 | Emergency (ER) | payer MEDICARE, MEDICAID, SELFPAY ==
[2025-01-21] VITALS (12 sets, daily range): BP systolic 79–106; BP diastolic 42–67; PULSE 82–96; RESP 19–26; TEMP 36.4–36.8; O2SAT 93–98; BMI 34.4
--- NOTE | 2025-01-21 16:57 | EKG12_ITS ---
Test Reason : Blood Pressure : */* mmHG Vent. Rate : 84 BPM Atrial Rate : 84 BPM P-R Int : 212 ms QRS Dur : 96 ms QT Int : 378 ms P-R-T Axes : 71 61 75 degrees QTcB Int : 446 ms Sinus rhythm with 1st degree A-V block Nonspecific ST and T wave abnormality Abnormal ECG Confirmed by DEBBIE WEEKS, LROA ([id number]), managing editor NEGRITO CONNER ([id number]) on 01/24/2025 7:33:16 AM Referred By: Confirmed By: LORA LEWIS MD
--- NOTE | 2025-01-21 17:00 | EDS_ITS ---
HPI History of Present Illness Chief Complaint: Syncope Informant: patient Narrative Narrative: Sent in after dialysis suspected syncopal episode with hypotension. Patient does make urine. He has history of kidney stones he has chronic right ureteral stent. He is followed by Dr. Mei at [facility]. He states he went in yesterday to have his right stent replaced however they removed they could not get 1 back in. He was seen previously here for kidney stone on the left side transferred to [facility]. He states they could not get the stent into the left side. He states he felt nauseated however no segment pain in his back or abdomen. He still makes urine today however made less. No dysuria. No fever or chills. Chronic dry cough. States after procedure yesterday he was sent in for antibiotics however not picked it up. History of ESBL. Normal blood pressure Around 120 per patient. He came in hypotensive 79/44. He states with dialysis did not finish it however they took only 1 L out of the planned 3. States he was hypotensive throughout the dialysis. No chest pains. Chronic Torres catheter. [facility] Medical History History of ESBL E. coli infection Hypoxia SOB (shortness of breath) Influenza A Dialysis patient Kidney disease Hepatitis Former smoker Hypertension ESRD on hemodialysis AV fistula End-stage renal disease Hyperlipidemia History of recurrent UTIs Chronic indwelling Torres catheter Urinary retention Prostate cancer Candidiasis, intertrigo Orthostatic hypotension Hypothyroidism Gout Obesity (BMI 30.0-34.9) Home Medications ?Medication ?Instructions ?Recorded ?Last Taken ?Type allopurinol 100 mg tablet 100 mg PO DAILY gout 5 12/01/24 History levothyroxine 88 mcg tablet 88 mcg PO DAILY thyroid 12/01/24 History midodrine 5 mg tablet 5 mg PO BID blood pressure 0 06/03/24 12/01/24 History sertraline 50 mg tablet 50 mg PO DAILY mental health 06/03/24 12/01/24 History simvastatin 20 mg tablet 20 mg PO QPM cholesterol 07/2711/30/24 History calcitriol 0.25 mcg capsule 0.25 mcg PO DAILY 10/22/24 11/09/24 History sevelamer carbonate 800 mg tablet 800 mg PO TID Unknown History Allergy/AdvReac Type Severity Reaction Status Date / Time Iodinated Contrast Media Allergy Hives Verified 01/21/25 16:34 (iodine contrast) Family History Other Heart disease Hypertension Surgical History History of left hip hemiarthroplasty History of prostate surgery Social History household members: none Smoking Status: Former smoker alcohol intake: never substance use type: does not use additional social history: Ambulates with a wheeled walker at baseline ROS ROS ED Constitutional Constitutional ED: Denies chills, fever(s) or sweats ENT ENT ED: Denies sore throat Cardiovascular Cardiovascular: Reports other Details: Syncope ; Denies chest pain, leg edema, palpitations or racing heartbeat Respiratory/Chest Respiratory/Chest: Denies cough, dyspnea or dyspnea on exertion Gastrointestinal Gastrointestinal: Denies abdominal pain, diarrhea, nausea or vomiting Genitourinary Genitourinary ED: Denies dysuria, hematuria or urinary frequency Musculoskeletal Musculoskeletal: Denies back pain, extremity pain or neck pain Integumentary Denies rash or wounds Neurologic Neurologic: Denies headache(s), paresthesias or weakness EXAM Physical Exam Const Vital Signs: 01/21/25 16:32 01/21/25 16:36 01/21/25 17:10 Temperature 97.6 F L Temperature Source Oral Pulse Rate 82 Respiratory Rate 19 H Respiratory Effort Normal Non-Labored Blood Pressure 79/44 L Blood Pressure Mean 55 Pulse Ox 95 96 Oxygen Delivery Method Room Air Room Air Oxygen Flow Rate (L/min) 01/21/25 17:30 01/21/25 17:56 01/21/25 18:00 Temperature Temperature Source Pulse Rate 90 88 96 Respiratory Rate Respiratory Effort Blood Pressure 97/67 101/52 L 96/48 L Blood Pressure Mean 77 68 64 Pulse Ox 96 93 Oxygen Delivery Method Oxygen Flow Rate (L/min) 01/21/25 19:00 01/21/25 20:00 01/21/25 21:00 Temperature Temperature Source Pulse Rate 88 86 87 Respiratory Rate 26 H Respiratory Effort Blood Pressure 97/42 L 106/45 L 106/47 L Blood Pressure Mean 60 65 66 Pulse Ox 96 98 98 Oxygen Delivery Method Nasal Cannula Nasal Cannula Oxygen Flow Rate (L/min) 2 01/21/25 22:00 01/21/25 22:21 01/21/25 23:00 Temperature 98.3 F Temperature Source Pulse Rate 86 86 83 Respiratory Rate 20 H 26 H Respiratory Effort Blood Pressure 99/46 L 104/48 L 101/49 L Blood Pressure Mean 63 66 66 Pulse Ox 95 95 96 Oxygen Delivery Method Nasal Cannula Oxygen Flow Rate (L/min) 2 01/21/25 23:45 01/22/25 00:00 Temperature Temperature Source Pulse Rate 85 85 Respiratory Rate 26 H 27 H Respiratory Effort Blood Pressure 95/46 L 95/51 L Blood Pressure Mean 62 65 Pulse Ox 94 Oxygen Delivery Method Nasal Cannula Oxygen Flow Rate (L/min) 2 Positive well nourished and well developed General Appearance ED: well developed and NAD HEENT Reports moist mucous membranes normocephalic and atraumatic Eyes General Eye ED: Yes normal appearance of both eyes Neck full ROM Chest Wall Chest: Negative for tenderness Resp normal respiratory effort and normal air movement Effort and Inspection: symmetric chest movement; Negative for respiratory distress Cardio regular rate, regular rhythm and no murmurs Peripheral Pulses: pulses 2+ throughout GI normal to inspection, nondistended, normoactive bowel sounds and non-tender Palpation: Negative for guarding or rebound tenderness present Narrative: Torres catheter bag is empty currently. Extremity Extremity Narrative: Right upper arm: Fistula with dressing over positive thrill. General Extremety ED: Negative for edema or tenderness General Extremity: Negative for edema Neuro oriented x3 and no sensory deficits noted Sensorium / Orientation: awake and alert Skin no rashes or lesions noted and no wounds Sepsis Attestation Sepsis Alert: Yes Sepsis Attestation: Agree w/Sepsis Date exam was performed: 01/21/25 Time exam was performed: 16:53 Possible Source of Sepsis: Pulmonary and Genitourinary Sepsis Organ Dysfunction Criteria Present: SBP < 90 mmHg or MAP < 65 mmHg, UOP < 0.5 mL/kg/hour for 2 consecutive hours and Lactic Acid > 2 mmol/L Fluid Resuscitation Fluid Resuscitation ordered: Lesser volume fluid bolus ordered Amount of fluid ordered: 500 Reason for lesser fluid bolus:: Concern for fluid overload Sepsis Note Date exam was performed: 01/21/25 Time exam was performed: 21:20 Sepsis Attestation: Sepsis re-evaluation was performed Response to fluids: Fluid responsive hypotension MDM MDM MDM Narrative Medical decision making narrative: Interventions / MDM: Differential diagnosis: Severe sepsis, urinary tract infection history of ESBL, pneumonia, bilateral hydronephrosis, obstructive left uropathy, transient hypotension, end-stage renal disease on hemodialysis. Diagnosis considered but do not suspect: No clinical septic shock is responded to fluids. Lactic acid less than 4. My EKG interpretation: Sinus rate of 84, no ST changes. T wave version anterior leads. First-degree AV block. QTc 446. Similar EKG findings from December 25, 2024. Imaging independently reviewed and interpreted by myself: 1 view chest x-ray: Left lower lobe consolidation pleural effusion. CT abdomen pelvis without contrast: Right sided large hydronephrosis and hydroureter with contrast dye material, left-sided moderate hydro with distal stone in the ureter. External documents reviewed: N/A Test considered but not ordered:N/A ED course: Patient hypotensive 79/44 on arrival. Dialysis patient will start with 500 cc bolus. Sepsis labs were ordered. Will check chest x-ray with his cough. Will order for urine to be collected. He has a Torres catheter. With his reported history kidney stone that was unable to get a stent in, will order flank CT. 1854: His lactic acid was 3.1. White count returned at 18.8. With 500 cc bolus blood pressure up to 101/52. I did not Ojeda with 30 cc/kg as he is dialysis patient did not want to overload him. He is responding to the gentle fluids. Creatinine 2.45 BUN 16 needs dialysis. His potassium is normal 4.1. Increasing leukocytosis. Chest x-ray concerning for left lower lobe infiltrate with edema. He is not hypoxic. Still waiting for urine collection from his Torres. From records ESBL and Pseudomonas last month from his urine. Meeting severe sepsis criteria I will cover him with ertapenem and vancomycin at this time. CT on my review at persistent hydronephrosis on the right side with dye material. Left side with moderate hydro appears to have a distal stone near his bladder. Awaiting final read. 1904: Called from pharmacy they reported ertapenem does not have Pseudomonas coverage and recommended meropenem which covers both Pseudomonas and ESBL. This was changed. 1934: Initial final read per radiology passed stone with bilateral hydro more on the right side. I discussed with the radiologist we reviewed images together he states stone appears to be at the UVJ at 1.3 mm. Still trying to collect urine he is on antibiotics for his history of ESBL and Pseudomonas. No urology coverage. He is states there is plans for him to [facility] from his urologist at [facility]. I will try to discussed with larger center to see if there are any availabilities for transfer. Current pressure 97/42. 2032: Current pressure 106/45, call back from transfer line, they spoke with the urology is he will need nephrostomy tubes however they have no current availability. This recommended him going back to his hospital at [facility] for IR intervention. We called to the facility they do not have interventional radiology on the weekends. Urine at this time returning positive for infection. He is on antibiotics. Pressure stabilized at this time. Will recheck lactic acid. Will work on finding transfer facilities with availabilities to manage the patient. 2046: I spoke with hospitalist at [place] Dr. Garcias, discussed patient's history workup and findings. They do have interventional radiology. He discussed that he would like urology to be aware involved. They are in agreement he will be excepted under service to stepdown unit. 2119: I spoke with urologist Dr. Patel, discussed patient's history. She is happy to follow however will likely need nephrostomy tubes. Agreement with the transfer at this time. Lactic acid returned down at 1.6. Will wait for transfer bed. 0: Beds were available. There is transport issues with ALS. His blood pressure been stable for the last 4 hours in the 100s. Heart rate 83. He does not have any electrolyte abnormalities with his potassium. Therefore he be sent with the S crew to transferring facility. Re-evaluation: stable Disposition discussed with patient/family/significant other: Patient Case discussed with consulting clinician: [facility] transfer line, [facility] transfer line, [facility] with hospitalist and urologist This note was generated with [employer] dictation software. It may contain incorrect words, spelling, and punctuation that were not noted in checking the note before signing. Lab Data Attestation: I reviewed the patient's lab results. Labs: Laboratory Results - last 24 hr 01/21/25 01/21/25 01/21/25 16:53 16:53 18:06 WBC Cancelled 18.8 H Corrected WBC Cancelled RBC Cancelled 3.28 L Hgb Cancelled 10.1 L Hct Cancelled 31.6 L MCV Cancelled 96.3 H MCH Cancelled 30.8 MCHC Cancelled 32.0 RDW Std Deviation Cancelled 58.1 H RDW Coeff of Filomena Cancelled 16.6 H Plt Count Cancelled 187 MPV Cancelled 10.8 Immature Gran % (Auto) Cancelled 0.700 Neut % (Auto) Cancelled 88.8 H Lymph % (Auto) Cancelled 4.0 L [place] % (Auto) Cancelled 6.1 Eos % (Auto) Cancelled 0.2 Baso % (Auto) Cancelled 0.2 Absolute Neuts (auto) Cancelled 16.7 H Absolute Lymphs (auto) Cancelled 0.75 L Total Counted Cancelled Neutrophils % (Manual) Cancelled Band Neutrophils % Cancelled Lymphocytes % (Manual) Cancelled Monocytes % (Manual) Cancelled Eosinophils % (Manual) Cancelled Basophils % (Manual) Cancelled Metamyelocytes % Cancelled Myelocytes % Cancelled Promyelocytes % Cancelled Blast Cells % Cancelled Plasma Cell % (Manual) Cancelled Other Cells % Cancelled Nucleated RBC % Cancelled 0 Nucleated RBCs/100 WBC Cancelled Differential Comment Cancelled Diff Path Review Cancelled Hypersegmented Neuts Cancelled Atypical Lymphocytes Cancelled Reactive Lymphocytes Cancelled Smudge Cells Cancelled Toxic Granulation Cancelled Toxic Vacuolation Cancelled Dohle Bodies Cancelled Gregorio Rods Cancelled Platelet Estimate Cancelled Plt Morphology Comment Cancelled RBC Morphology Cancelled Cancelled Polychromasia Cancelled Hypochromasia Cancelled Basophilic Stippling Cancelled Anisocytosis Cancelled Microcytosis Cancelled Macrocytosis Cancelled Spherocytes Cancelled Sickle Cells Cancelled Target Cells Cancelled Tear Drop Cells Cancelled Ovalocytes Cancelled Stomatocytes Cancelled [place]angel[place] Bodies Cancelled Rose Mary Cells Cancelled Bite Cells Cancelled Crenated Cell Cancelled Acanthocytes (Spur) Cancelled Rouleaux Cancelled Schistocytes Cancelled PT 13.9 INR 1.1 APTT 24.2 Sodium 136 Potassium 4.1 Chloride 95 L Carbon Dioxide 27.0 Anion Gap 14 BUN 16 Creatinine 2.45 H Estim Creat Clear Calc 31.10 L Est GFR (MDRD) Non-Af 26 L BUN/Creatinine Ratio 6.6 L Glucose 128 H Lactic Acid 3.1 H* Calcium 8.5 Total Bilirubin 0.28 AST 18 ALT < 5 Alkaline Phosphatase 77 Total Protein 6.3 Albumin 3.4 Globulin 2.8 Albumin/Globulin Ratio 1.2 Urine Color Urine Clarity Urine pH Ur Specific [place] Urine Protein Urine Glucose (UA) Urine Ketones Urine Occult Blood Urine Nitrite Urine Bilirubin Urine Urobilinogen Ur Leukocyte Esterase Urine RBC Urine WBC Ur Squamous Epith Cells Urine Bacteria Urine Mucus 01/21/25 01/21/25 20:19 20:32 WBC Corrected WBC RBC Hgb Hct MCV MCH MCHC RDW Std Deviation RDW Coeff of Filomena Plt Count MPV Immature Gran % (Auto) Neut % (Auto) Lymph % (Auto) [place] % (Auto) Eos % (Auto) Baso % (Auto) Absolute Neuts (auto) Absolute Lymphs (auto) Total Counted Neutrophils % (Manual) Band Neutrophils % Lymphocytes % (Manual) Monocytes % (Manual) Eosinophils % (Manual) Basophils % (Manual) Metamyelocytes % Myelocytes % Promyelocytes % Blast Cells % Plasma Cell % (Manual) Other Cells % Nucleated RBC % Nucleated RBCs/100 WBC Differential Comment Diff Path Review Hypersegmented Neuts Atypical Lymphocytes Reactive Lymphocytes Smudge Cells Toxic Granulation Toxic Vacuolation Dohle Bodies Gregorio Rods Platelet Estimate Plt Morphology Comment RBC Morphology Polychromasia Hypochromasia Basophilic Stippling Anisocytosis Microcytosis Macrocytosis Spherocytes Sickle Cells Target Cells Tear Drop Cells Ovalocytes Stomatocytes Dangel[place] Bodies Rose Mary Cells Bite Cells Crenated Cell Acanthocytes (Spur) Rouleaux Schistocytes PT INR APTT Sodium Potassium Chloride Carbon Dioxide Anion Gap BUN Creatinine Estim Creat Clear Calc Est GFR (MDRD) Non-Af BUN/Creatinine Ratio Glucose Lactic Acid 1.6 Calcium Total Bilirubin AST ALT Alkaline Phosphatase Total Protein Albumin Globulin Albumin/Globulin Ratio Urine Color Nava Urine Clarity Cloudy Urine pH 8.0 Ur Specific [place] 1.015 Urine Protein 500 H Urine Glucose (UA) Normal Urine Ketones Negative Urine Occult Blood 250 H Urine Nitrite Positive H Urine Bilirubin Negative Urine Urobilinogen Normal Ur Leukocyte Esterase 100 H Urine RBC > 100 SEEN Urine WBC >100 SEEN Ur Squamous Epith Cells 0-5 SEEN Urine Bacteria 3+ Urine Mucus 1+ Radiography Diagnostic Testing: Clinical Impression(s) from Imaging Studies Chest X-Ray 01/21/25 17:25 IMPRESSION: Left lung base opacity with likely superimposed small left pleural effusion. Reading Location: [facility] Abdomen/Pelvis CT 01/21/25 17:37 IMPRESSION: 1. Interval removal of the right double-J nephroureteral stent. 2. Persistent moderate to severe right and moderate left hydroureteronephrosis with no definite obstruction identified. Excreted contrast is seen pooling within the right renal pelvis and proximal to mid ureter. 3. Interval passage of previously noted 2 mm calculus in the left UVJ. 4. Unchanged multiple nonobstructive left renal calculi measuring up to 6 mm. 5. Bladder remains decompressed with suprapubic catheter in place. 6. Scattered colonic diverticulosis without acute diverticulitis. Reading Location: [facility] Critical Care Time Critical Care Time: Yes Critical care time (excluding procedures): 30-74 minutes, Discussing w/Patient &/or Family/Spa Manager, Discussing w/Consultants, Arranging Admission or Transfer, Performing Direct Patient Care at Bedside and - (45 minutes) Discharge Plan Triage Chief Complaint: Syncope ED Provider: Ren Uriarte Dx/Rx/DC Orders Clinical Impression: Severe sepsis, End-stage renal disease, History of ESBL E. coli infection, Acute UTI, Hydronephrosis, bilateral, Urolithiasis, Transient hypotension Prescriptions: No Action calcitriol 0.25 mcg capsule 0.25 mcg PO DAILY Patient Comments: PT NT SURE IF HE TAKES sevelamer carbonate 800 mg tablet 800 mg PO TID midodrine 5 mg tablet 5 mg PO BID levothyroxine 88 mcg tablet 88 mcg PO DAILY allopurinol 100 mg tablet 100 mg PO DAILY simvastatin 20 mg tablet 20 mg PO QPM sertraline 50 mg tablet 50 mg PO DAILY Primary Care Provider: Ata Hernandez Referrals: Ata Hernandez MD [Primary Care Provider] - Print Language: [place] Disposition Disposition: DC/Tx to Another Type of HCF
[2025-01-21] MEDS: 0.9% Normal Saline (500mL Bag) 500 ML 999 ML IV (17:07)
--- NOTE | 2025-01-21 17:25 | RAD_ITS ---
PROCEDURE: CHEST 1 VIEW (PORTABLE) 01/21/2025 REASON FOR EXAM: COUGH TECHNIQUE: Frontal view of the chest. COMPARISON: Chest x-ray 07/14/2019 FINDINGS: Hardware: None. Heart: Heart size is mildly enlarged. Lungs: Left lung base opacity with likely superimposed small left pleural effusion. The right lung is grossly clear. Chronic lung changes. No pneumothorax. Bones: The bones are unremarkable. RAD/Chest 1 View (Portable) IMPRESSION: Left lung base opacity with likely superimposed small left pleural effusion. Reading [facility]
[2025-01-21 17:32] LABS: Prothrombin Time (Protime)PT. 13.9 SECONDS (11.7-14.9)
[2025-01-21 17:33] LABS: Partial Thromboplast Time 24.2 Seconds (24.1-36.2)
--- NOTE | 2025-01-21 17:37 | CT_ITS ---
PROCEDURE: ABDOMEN/PELVIS WITHOUT CONT 01/21/2025 REASON FOR EXAM: KIDNEY STONE TECHNIQUE: ABDOMEN/PELVIS WITHOUT CONT Noncontrast technique limits evaluation of the abdominal and pelvic viscera. Coronal and Sagittal reconstruction series were provided. One or more dose reduction techniques were used (e.g., Automated exposure control, adjustment of the mA and/or kV according to patient size, use of iterative reconstruction technique). COMPARISON: 12/25/2024 FINDINGS: Lung bases: Trace bibasilar pleural effusions with adjacent passive atelectasis. Liver: Normal size. No obvious mass. Gallbladder: Unremarkable. No biliary ductal dilatation. Spleen: Normal size. Pancreas: Normal size. No surrounding inflammation. Adrenals: Unremarkable. Kidneys: Persistent moderate to severe right hydroureteronephrosis. Interval removal of the right double-J nephroureteral stent. Excreted contrast is seen pooling within the right renal pelvis and proximal to mid ureter but not reaching the distal ureter. Persistent moderate left hydroureteronephrosis. Stable atrophy of the left kidney with scattered cysts in several nonobstructive left renal calculi measuring up to 6 mm. Bladder: Interval passage of previously noted 2 mm calculus in the left UVJ. The bladder remains decompressed with a suprapubic catheter in place. Reproductive Organs: Normal-sized prostate status post TURP. Bowel: No bowel obstruction. Scattered colonic diverticulosis without acute diverticulitis. Appendix: The appendix is not identified. There is no inflammatory process identified in the right lower quadrant to suggest appendicitis. Lymph nodes: Unremarkable. Vasculature: Moderate atherosclerotic calcifications of the abdominal aorta and its branches. No aneurysmal dilatation. Peritoneum / Retroperitoneum: No free fluid or air. Bones: Degenerative changes of the spine. No acute fractures. CT/Abdomen/Pelvis without Cont IMPRESSION: 1. Interval removal of the right double-J nephroureteral stent. 2. Persistent moderate to severe right and moderate left hydroureteronephrosis with no definite obstruction identified. Excreted contrast is seen pooling within the right renal pelvis and proximal to mid uret er. 3. Interval passage of previously noted 2 mm calculus in the left UVJ. 4. Unchanged multiple nonobstructive left renal calculi measuring up to 6 mm. 5. Bladder remains decompressed with suprapubic catheter in place. 6. Scattered colonic diverticulosis without acute diverticulitis. Reading Location: [facility]
[2025-01-21 18:08] LABS: AST(SGOT) 18 U/L (<=37); Alanine Aminotransfer ALT/SGPT < 5 U/L (<=46); Albumin, Serum 3.4 g/dL (3.4-4.8); Alkaline Phosphatase 77 U/L (40-129); Anion Gap 14 (5-15); BUN 16 mg/dL (4-19); BUN/Creat Ratio 6.6 RATIO (10-20); Calcium,Total 8.5 mg/dL (7.6-11.0); Carbon Dioxide 27.0 mmol/L (21.0-32.0); Chloride 95 mmol/L (98-108); Estimated Creatinine Clearance 31.10 ml/min (50-250); Globulin 2.8 g/dL (2.2-4.2); Glucose 128 mg/dL (70-99); Potassium 4.1 mmol/L (3.3-5.1)
[2025-01-21 18:45] LABS: Hematocrit 31.6 % (40-54); Hemoglobin 10.1 g/dL (13.0-16.5); Immature Granulocytes Count 0.140 X10^3/uL (0.0-0.0); Mean Corp Hgb Conc 32.0 g/dL (32-36); Mean Corpuscular Volume 96.3 fL (80-94); Mean Platelet Vol. 10.8 fl (6.2-12.0); NRBC Flagged by Analyzer 0 % (0-5); Platelet Count 187 K/mm3 (150-450); RBC Distribution Width CV 16.6 % (11.6-14.6); RBC Distribution Width SD 58.1 fl (35.1-43.9); Red Blood Count 3.28 M/mm3 (4.6-6.2); White Blood Count 18.8 K/mm3 (4.4-11.0)
[2025-01-21] MEDS: Vancomycin HCl 2,000 MG in 0.9% Normal Saline (500mL Bag) 500 ML 250 MG IV (19:22)
[2025-01-21] MEDS: Meropenem 1 GM in 0.9% Normal Saline (100mL MB+) 100 ML IV (19:24)
[2025-01-21 20:27] LABS: Color, Urine Amber (Yellow); Glucose, Dipstick Normal (Normal); Ketone-Dipstick Negative (Negative); Leukocyte Esterase-Dipstick 100 /ul (Negative); Nitrite-Dipstick Positive (Negative); Occult Blood-Urine 250 /ul (Negative); Protein-Dipstick 500 mg/dl (Negative); Specific Gravity, Urine 1.015 (1.002-1.030); Urine Bilirubin Dipstick Negative (Negative)
[2025-01-21 21:01] LABS: Reflex Lactate? Y
[2025-01-21 21:03] LABS: Mucous, Urine 1+ /hpf (<or=2+); Red Blood Cells-Urine > 100 SEEN /hpf (0-5); Squamous Epithelial Cells - UA 0-5 SEEN /hpf (0-5)
--- NOTE | 2025-01-21 22:29 | ED.RN ---
attempted to call report at [phone], was on hold for 7 min
--- NOTE | 2025-01-21 23:34 | PCA ---
Per Dr Uriarte patient can do off monitor for BLS transport to [facility].
[2025-01-22] VITALS: BP 95/51; PULSE 85; RESP 27; O2SAT 94
[2025-01-22 01:00] VITALS: BP 99/50; PULSE 86; RESP 22; O2SAT 94
--- NOTE | 2025-01-22 03:36 | ED.RN ---
dory from [place] [facility] called for report
== END 2025-01-22 02:32 | disposition other institution (70) ==
PROVIDERS: Emergency Provider Emergency Medicine; Visit Provider Emergency Medicine
DX: A41.9 Sepsis, unspecified organism (principal); N18.6 End stage renal disease; I12.0 Hypertensive chronic kidney disease with stage 5 chronic kidney disease or end stage renal disease; R65.20 Severe sepsis without septic shock; R05.3 Chronic cough; I44.30 Unspecified atrioventricular block; J90 Pleural effusion, not elsewhere classified; N13.2 Hydronephrosis with renal and ureteral calculous obstruction; R55 Syncope and collapse; N13.4 Hydroureter; E78.5 Hyperlipidemia, unspecified; Z79.890 Hormone replacement therapy; Z99.2 Dependence on renal dialysis; Z79.899 Other long term (current) drug therapy; Z87.891 Personal history of nicotine dependence
CPT/HCPCS: 71045; 74176; 80053; 81001; 83605; 85025; 85610; 85730; 87040; 87077; 87086; 87088; 87186; 93005; 96365; 96366; 96367; 99285; J2185; A4216

== ENCOUNTER 2025-05-04 15:17 | Emergency (ER) | payer MEDICARE, MEDICAID, SELFPAY ==
[2025-05-04 15:18] VITALS: BP 124/53; PULSE 106; RESP 18; TEMP 36.7; O2SAT 91
--- NOTE | 2025-05-04 15:28 | EX.ED.DYSGE1 ---
HPI History of Present Illness Chief Complaint: Wound Check Informant: patient Onset/Context/Timing Onset: Days Timing: Continuous Location: Left flank Worsened by: Nothing Relieved by: Nothing Narrative Narrative: Patient presents with possible dislodged nephrostomy tube that has been present for the last several days. Patient states he felt a stitch on his nephrostomy tube and it was not attached to his skin. Patient states that the nephrostomy tube quit draining but today he noted some drainage to his nephrostomy tube. Patient also has a nephrostomy tube on the right which has been draining. Patient denies any fevers or chills. Patient denies any nausea or vomiting. Patient states that his home health nurse told to come to the emergency department after dialysis today. Patient states he sees a urologist, Dr. Mei at [facility]. [facility] Medical History History of ESBL E. coli infection Hypoxia SOB (shortness of breath) Influenza A Dialysis patient Kidney disease Hepatitis Former smoker Hypertension ESRD on hemodialysis AV fistula End-stage renal disease Hyperlipidemia History of recurrent UTIs Chronic indwelling Torres catheter Urinary retention Prostate cancer Candidiasis, intertrigo Orthostatic hypotension Hypothyroidism Gout Obesity (BMI 30.0-34.9) Home Medications ?Medication ?Instructions ?Recorded ?Last Taken ?Type allopurinol 100 mg tablet 100 mg PO DAILY gout 06/03/24 12/01/24 History levothyroxine 88 mcg tablet 88 mcg PO DAILY thyroid 06/03/24 12/01/24 History midodrine 5 mg tablet 5 mg PO BID blood pressure 06/03/24 12/01/24 History sertraline 50 mg tablet 50 mg PO DAILY mental health 06/03/24 12/01/24 History simvastatin 20 mg tablet 20 mg PO QPM cholesterol 06/03/24 11/30/24 History calcitriol 0.25 mcg capsule 0.25 mcg PO DAILY 10/22/24 11/09/24 History sevelamer carbonate 800 mg tablet 800 mg PO TID 12/26/24 Unknown History Allergy/AdvReac Type Severity Reaction Status Date / Time Iodinated Contrast Media Allergy Hives Verified 05/04/25 15:18 (iodine contrast) Family History Other Heart disease Hypertension Surgical History History of left hip hemiarthroplasty History of prostate surgery Social History household members: none Smoking Status: Former smoker alcohol intake: never substance use type: does not use additional social history: Ambulates with a wheeled walker at baseline ROS ROS ED Constitutional Constitutional ED: Denies chills or fever(s) Eyes Eyes: Denies blurry vision or change in vision ENT ENT ED: Denies rhinorrhea or sore throat Cardiovascular Cardiovascular: Denies chest pain or palpitations Respiratory/Chest Respiratory/Chest: Denies cough or dyspnea Gastrointestinal Gastrointestinal: Denies nausea or vomiting Genitourinary Genitourinary ED: Denies hematuria Musculoskeletal Musculoskeletal: Denies back pain or neck pain Integumentary Denies abscess or rash Neurologic Neurologic: Denies headache(s) or weakness Allergic/Immunologic Allergic/Immunologic ED: Denies mouth swelling or urticaria EXAM Physical Exam Const Vital Signs: 05/04/25 15:18 05/04/25 15:55 05/04/25 17:36 Temperature 98.1 F 98 F Temperature Source Oral Oral Pulse Rate 106 H 85 80 Respiratory Rate 18 14 18 Blood Pressure 124/53 H 135/58 H 122/62 H Blood Pressure Mean 76 83 82 Pulse Ox 91 92 92 Oxygen Delivery Method Room Air Room Air Room Air Positive well nourished and well developed General Appearance ED: well developed and NAD HEENT Reports moist mucous membranes Neck supple and no JVD Resp normal respiratory effort and clear to auscultation bilaterally Cardio regular rate and regular rhythm GI non-tender and non-distended Palpation: soft Back/Spine Back/Spine Narrative: The left nephrostomy tube appears to be pulled out somewhat. It does go into the skin. There is no surrounding erythema. There is no discharge or drainage around the tube site. There is no tenderness. Extremity normal to inspection Neuro oriented x3, CN's II-XII intact bilaterally and no sensory deficits noted Sensorium / Orientation: alert Motor Exam: strength 5/5 throughout Psych mental status grossly normal MDM MDM MDM Narrative Medical decision making narrative: Differential diagnosis includes dislodged nephrostomy tube, infection, chronic kidney disease, electrolyte abnormality, and urinary tract infection. CBC will be obtained to assess for leukocytosis and anemia. Basic metabolic profile will be obtained to assess for electrolyte abnormality and renal function. Urinalysis will be obtained to assess for urinary tract infection and hematuria. CT scan of the abdomen and pelvis will be obtained to assess for nephrostomy tube placement. Lab Data Attestation: I reviewed the patient's lab results. Lab results narrative: CBC was reviewed. There is a mild anemia with a hemoglobin of 11.9 and hematocrit of 38.2. The remainder is within normal limits. Basic metabolic profile was reviewed. Creatinine was slightly elevated at 2.14. This is consistent with previous results. Urinalysis was reviewed. Leukocyte esterase was 500 with greater than 100 white blood cells and 3+ bacteria. Labs: Laboratory Results - last 24 hr 05/04/25 05/04/25 15:50 16:12 WBC 7.2 RBC 3.96 L Hgb 11.9 L Hct 38.2 L MCV 96.5 H MCH 30.1 MCHC 31.2 L RDW Std Deviation 52.9 H RDW Coeff of Filomena 14.8 H Plt Count 206 MPV 10.4 Immature Gran % (Auto) 0.300 Neut % (Auto) 62.5 Lymph % (Auto) 23.1 [facility] % (Auto) 8.8 Eos % (Auto) 4.2 Baso % (Auto) 1.1 H Absolute Neuts (auto) 4.5 Absolute Lymphs (auto) 1.66 Nucleated RBC % 0 Sodium 142 Potassium 3.8 Chloride 95 L Carbon Dioxide 34.5 H Anion Gap 12 BUN 13 Creatinine 2.14 H Estim Creat Clear Calc 34.42 L Est GFR (MDRD) Non-Af 31 L BUN/Creatinine Ratio 5.8 L Glucose 109 H Calcium 9.2 Urine Color Yellow Urine Clarity Turbid Urine pH 8.0 Ur Specific [place] 1.010 Urine Protein 100 H Urine Glucose (UA) Normal Urine Ketones Negative Urine Occult Blood 150 H Urine Nitrite Negative Urine Bilirubin Negative Urine Urobilinogen Normal Ur Leukocyte Esterase 500 H Urine RBC 10-25 SEEN Urine WBC >100 SEEN Ur Squamous Epith Cells 0-5 SEEN Ur Transition Epith Cell 0-5 SEEN Urine Bacteria 3+ Urine Mucus 0 SEEN Radiography Diagnostic Testing: Clinical Impression(s) from Imaging Studies Abdomen/Pelvis CT 05/04/25 15:41 IMPRESSION: Interval bilateral percutaneous nephrostomy tube placement. Resolution of prior right hydronephrosis. The left nephrostomy tube appears suboptimally positioned at the lateral aspect of the left upper pole renal parenchyma, not definitively within the renal collecting system, with persistent mild left hydroureteronephrosis, with a punctate obstructing stone in the distal left ureter. Urinary bladder is collapsed limiting its evaluation, but appears to have circumferential wall thickening/inflammation, similar to prior exam. Interval removal of the suprapubic catheter. Extensive colonic diverticulosis without active diverticulitis. Reading Location: [id number] Management Discussion w/another healthcare provider: Customer Service Advocate Additional Tests and Interventions Additional Tests or Interventions: Urine culture was ordered. Treatment and Re-Evaluation :: Patient was given a dose of Rocephin here. Patient is resting comfortably on reevaluation. Patient was advised of his findings. Case was discussed with Dr. Bay. He felt the patient to follow-up as an outpatient with his urologist. Patient was given a prescription for Augmentin. Patient was instructed to call his urologist tomorrow to schedule an appointment. Patient was instructed to return if worse in any way. Patient understood and was agreeable with the plan. All questions were answered. Discharge Plan Triage Chief Complaint: Wound Check ED Provider: Ata Castro Dx/Rx/DC Orders Clinical Impression: Displacement of nephrostomy tube, End-stage renal disease, Urinary tract infection Prescriptions: No Action calcitriol 0.25 mcg capsule 0.25 mcg PO DAILY Patient Comments: PT NT SURE IF HE TAKES sevelamer carbonate 800 mg tablet 800 mg PO TID midodrine 5 mg tablet 5 mg PO BID levothyroxine 88 mcg tablet 88 mcg PO DAILY allopurinol 100 mg tablet 100 mg PO DAILY simvastatin 20 mg tablet 20 mg PO QPM sertraline 50 mg tablet 50 mg PO DAILY Primary Care Provider: Ata Hernandez Referrals: Ata Hernandez MD [Primary Care Provider, Medical] Print Language: Tunisian
--- NOTE | 2025-05-04 15:41 | CT_ITS ---
PROCEDURE: CT ABDOMEN/PELVIS WITHOUT CONTRAST 05/04/2025 REASON FOR EXAM: FLANK PAIN TECHNIQUE: Procedure Code: [id number] Modality: CT Procedure: ABDOMEN/PELVIS WITHOUT CONT Noncontrast technique limits evaluation of the abdominal and pelvic viscera. Coronal and Sagittal reconstruction series were provided. One or more dose reduction techniques were used (e.g., Automated exposure control, adjustment of the mA and/or kV according to patient size, use of iterative reconstruction technique). RADIATION DOSE SUMMARY: CTDlvol: 20.74 mGy DLP: 1222.66 mGycm COMPARISON: 01/21/2025 FINDINGS: Lung bases: Clear. Mild dependent atelectasis. Liver: Unremarkable. Gallbladder: Unremarkable. Spleen: Unremarkable. Pancreas: Unremarkable Adrenals: Unremarkable. Kidneys: Interval placement of bilateral percutaneous nephrostomy tubes. Resolution of the prior right hydronephrosis, and decreased mild left hydroureteronephrosis. The left nephrostomy tube appears slightly malpositioned at the lateral aspect of the renal parenchyma, with persistent mild left hydroureteronephrosis, and probable punctate obstructing stone in the distal left ureter just proximal to the ureterovesicular junction. Few additional subcentimeter nonobstructive left renal stones. Bladder: Collapsed, limiting its evaluation. Unchanged mild nonspecific irregular wall thickening/pericystic fat stranding. Suprapubic catheter tract with interval removal of the catheter tubing. Reproductive Organs: Nonenlarged prostate. Small fat containing left inguinal hernia. Bowel: No evidence of obstruction or active inflammatory process. Normal appendix. Extensive colonic diverticulosis without evidence for active diverticulitis. Lymph nodes: No suspicious lymph node enlargement. Vasculature: Normal caliber abdominal aorta. Moderate atherosclerotic disease. Peritoneum / Retroperitoneum: No ascites or free air. Bones: Mild degenerative changes of the spine. Left hip arthroplasty hardware. CT/Abdomen/Pelvis without Cont IMPRESSION: Interval bilateral percutaneous nephrostomy tube placement. Resolution of prio r right hydronephrosis. The left nephrostomy tube appears suboptimally positioned at the lateral aspect of the left upper pole re nal parenchyma, not definitively within the renal collecting system, with persistent mild left hydroureteronephrosis, with a punc warner obstructing stone in the distal left ureter. Urinary bladder is collapsed limiting its evaluation, but appears to have circu mferential wall thickening/inflammation, similar to prior exam. Interval removal of the suprapubic catheter. Extensive colonic diverticulosis without active diverticulitis. Reading Location: [id number]
[2025-05-04 15:51] VITALS: BMI 32.1
[2025-05-04 15:55] VITALS: BP 135/58; PULSE 85; RESP 14; O2SAT 92
[2025-05-04 16:11] LABS: Hematocrit 38.2 % (40-54); Hemoglobin 11.9 g/dL (13.0-16.5); Immature Granulocytes Count 0.020 X10^3/uL (0.0-0.0); Mean Corp Hgb Conc 31.2 g/dL (32-36); Mean Corpuscular Volume 96.5 fL (80-94); Mean Platelet Vol. 10.4 fl (6.2-12.0); NRBC Flagged by Analyzer 0 % (0-5); Platelet Count 206 K/mm3 (150-450); RBC Distribution Width CV 14.8 % (11.6-14.6); RBC Distribution Width SD 52.9 fl (35.1-43.9); Red Blood Count 3.96 M/mm3 (4.6-6.2); White Blood Count 7.2 K/mm3 (4.4-11.0)
[2025-05-04 16:18] LABS: Mucous, Urine 0 SEEN /hpf (<or=2+)
[2025-05-04 16:50] LABS: Anion Gap 12 (5-15); BUN 13 mg/dL (4-19); BUN/Creat Ratio 5.8 RATIO (10-20); Calcium,Total 9.2 mg/dL (7.6-11.0); Carbon Dioxide 34.5 mmol/L (21.0-32.0); Chloride 95 mmol/L (98-108); Estimated Creatinine Clearance 34.42 ml/min (50-250); Glucose 109 mg/dL (70-99); Potassium 3.8 mmol/L (3.3-5.1)
[2025-05-04 16:51] LABS: Color, Urine Yellow (Yellow); Glucose, Dipstick Normal (Normal); Ketone-Dipstick Negative (Negative); Leukocyte Esterase-Dipstick 500 /ul (Negative); Nitrite-Dipstick Negative (Negative); Occult Blood-Urine 150 /ul (Negative); Protein-Dipstick 100 mg/dl (Negative); Specific Gravity, Urine 1.010 (1.002-1.030); Urine Bilirubin Dipstick Negative (Negative)
[2025-05-04 17:36] VITALS: BP 122/62; PULSE 80; RESP 18; TEMP 36.6; O2SAT 92
[2025-05-04 18:06] LABS: Red Blood Cells-Urine 10-25 SEEN /hpf (0-5)
[2025-05-04 18:07] LABS: Squamous Epithelial Cells - UA 0-5 SEEN /hpf (0-5); Transitional Epithelial - Ur 0-5 SEEN /hpf (0-5)
[2025-05-04 18:45] VITALS: BP 133/60; PULSE 79; RESP 18; O2SAT 99
[2025-05-04 19:28] VITALS: BP 131/59; PULSE 82; RESP 16; TEMP 36.8; O2SAT 95
== END 2025-05-04 19:29 | disposition home or self-care (01) ==
PROVIDERS: Emergency Provider Emergency Medicine; Visit Provider Emergency Medicine
DX: T83.022A Displacement of nephrostomy catheter, initial encounter (principal); I12.0 Hypertensive chronic kidney disease with stage 5 chronic kidney disease or end stage renal disease; N18.6 End stage renal disease; N39.0 Urinary tract infection, site not specified; Z87.891 Personal history of nicotine dependence; X58.XXXA Exposure to other specified factors, initial encounter
CPT/HCPCS: 74176; 80048; 81001; 85025; 87077; 87086; 87088; 87186; 96365; 99283; A4216